=== PATIENT | male | born 1965 | race Caucasian/White ===

== ENCOUNTER 2023-03-17 13:39 | Outpatient (OUT) | payer MEDICARE, SELFPAY ==
--- NOTE | 2023-03-17 14:09 | XR_ITS ---
The [address] [address] Patient Name: TANIA SANTANA MRN: [id number] date: 1965 Sex: M Assigned Patient Location: RAD Current Patient Location: [facility] Accession/Order Number: [id number] Exam Date: 03/17/2023 14:11 Report Date: 03/17/2023 14:56 At the request of: MERRITT THACKER Procedure: XR shoulder RT min 2V Exam: Radiographs: XR shoulder RT min 2V Reason for exam: Right Shoulder Pain M25.511 Comparison: Plain films dated 06/08/2019 XR/XR shoulder RT min 2V IMPRESSION: Severe right glenohumeral joint degenerative change with complete loss of the joint space. Mild right AC joint degenerative change. Remainder of the right shoulder is unremarkable. Electronically authenticated by: BYRON TINAJERO Date: 03/17/2023 14:56
== END 2023-03-17 13:40 | disposition home or self-care (01) ==
PROVIDERS: PCP Internal Medicine; Visit Provider Internal Medicine
DX: M25.511 Pain in right shoulder (principal); M19.011 Primary osteoarthritis, right shoulder
CPT/HCPCS: 73030

== ENCOUNTER 2023-12-16 07:16 | Inpatient (IN) | payer MEDICARE, SELFPAY ==
[2023-12-16] VITALS (25 sets, daily range): BP systolic 122–145; BP diastolic 73–88; PULSE 88–119; TEMP 36.4–36.8; O2SAT 92–100; BMI 71.2; BMI 71.5
--- OUTSIDE RECORDS SUMMARY | 2023-12-16 07:33 | XMS_ITS | CCD ---
Author Organization [facility] Care Team Providers Care Setter Out Name Role Phone HOUSE, DR GLEZ Primary Care Unavailable HOUSE, DR GLEZ Admitting Unavailable HOUSE, DR GLEZ Attending Unavailable HOUSE, DR GLEZ Consulting Unavailable KEON, DR EFRA Bradshaw Consulting Unavailable HOUSE, DR GLEZ Primary Care Unavailable HOUSE, DR DEVANG Manceraitting Unavailable HOUSE, DR GLEZ Attending Unavailable HOUSE, DR GLEZ Consulting Unavailable HOUSE, DR GLEZ Primary Care Unavailable HOUSE, DR GLEZ Admitting Unavailable HOUSE, DR GLEZ Attending Unavailable HOUSE, DR GLEZ Consulting Unavailable HOUSE, DR GLEZ Primary Care Unavailable VINH, DR DARIUS Bradshaw Admitting Unavailable VINH, DR DARIUS Bradshaw Attending Unavailable VINH, DR DARIUS Bradshaw Consulting Unavailable ELIDA, EFRA Steve Unavailable Sage, Devang Primary Care Unavailable Preethi Duncan Attending Unavailable Dakota, Preethi Admitting Unavailable KAM HARDIN Attending Unavailable Merritt Thacker MD Primary Care Provider MERRITT THACKER Attending MERRITT Jackson Referring Unavailable MERRITT THACKER Primary Care Unavailable MERRITT THACKER Referring Unavailable MERRITT THACKER Primary Care Unavailable Allergies Allergy Classification Reported Allergen(s) Allergy Type Date of Onset Reaction(s) Facility Anti-Epileptic Agents (1 source) topiramate Drug Allergy 3 [facility] Repository (3 sources) topiramate; 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: [TOPIRAMATE] Drug Allergy 4 [facility] Repository (1 source) Topiramate Propensity to adverse reactions 3 [facility] Medications Current Medications Medication Drug Class(es) Dates Sig (Normalized) Sig (Original) amLODIPine 5 mg oral tablet (1 source) Dihydropyridine Calcium Channel Phill amLODIPine (Norvasc) 5 MG tablet atorvastatin 80 mg oral tablet (1 source) HMG-CoA Reductase Inhibitor take 1 tablet by mouth once daily at bedtime atorvastatin (Lipitor) 80 MG tablet Take 1 tablet every day by oral route at bedtime. 0 Active diclofenac sodium 75 mg delayed release oral tablet (1 source) Nonsteroidal Anti-inflammatory Drug Start: 3 take 1 tablet by mouth in the morning diclofenac (Voltaren) 75 MG EC tablet Take 75 mg by mouth in the morning and 75 mg before bedtime. 0 03/21/2023 Active ferrous sulfate 325 mg oral tablet (1 source) take 1 tablet by mouth in the morning ferrous sulfate 325 (65 Fe) MG tablet Take 1 tablet by mouth in the morning. 0 Active furosemide 20 mg oral tablet (1 source) Loop Diuretic furosemide (Lasix) 20 MG tablet gabapentin 300 mg oral capsule (1 source) Anti-epileptic Agent Start: 2 take 1 capsule by mouth in the morning, then take 1 capsule by mouth in the evening, then take 1 capsule by mouth at bedtime gabapentin (Neurontin) 300 MG capsule Take 300 mg by mouth in the morning and 300 mg in the evening and 300 mg before bedtime. 0 04/27/2022 Active hydroCHLOROthiazide 25 mg / triamterene 37.5 mg oral tablet (1 source) Potassium-sparing Diuretic, Thiazide Diuretic triamterene-hydr ochlorothiazide (Maxzide-25) 37.5-25 MG tablet losartan potassium 50 mg oral tablet (1 source) Angiotensin 2 Receptor Phill Start: 3 take 1 tablet by mouth in the morning losartan (Cozaar) 50 MG tablet Take 50 mg by mouth in the morning. 0 03/10/2023 Active metFORMIN hydrochloride 1000 mg oral tablet (1 source) Biguanide take 1 tablet by mouth in the morning metFORMIN (Glucophage) 1000 MG tablet Take 1,000 mg by mouth in the morning and 1,000 mg before bedtime. 0 Active 24 hr metoprolol succinate 25 mg extended release oral tablet (1 source) beta-Adrenergic Phill take 1 tablet by mouth every twenty-four hours in the morning metoprolol succinate XL (Toprol-XL) 25 MG 24 hr tablet Take 25 mg by mouth in the morning and 25 mg in the evening. 0 Active pantoprazole 40 mg delayed release oral tablet (1 source) Proton Pump Inhibitor take 1 tablet by mouth twice daily pantoprazole (ProtoNix) 40 MG EC tablet Take 1 tablet twice a day by oral route. 0 Active 24 hr phentermine 3.75 mg / topiramate 23 mg extended release oral capsule (1 source) Sympathomimetic Amine Anorectic take 1 capsule by mouth once daily Phentermine-Topi ramate (Qsymia) 3.75-23 MG capsule sustained-releas e 24 hr Take 1 capsule every day by oral route. 0 Active potassium chloride 20 meq powder for oral solution (1 source) take 1 dose by mouth once daily potassium chloride (Klor-Con) 20 MEQ packet Take 1 packet every day by oral route. 0 Active pregabalin 300 mg oral capsule (1 source) take 1 capsule by mouth twice daily pregabalin (Lyrica) 300 MG capsule Take 1 capsule twice a day by oral route. 0 Active SITagliptin 100 mg oral tablet (1 source) Dipeptidyl Peptidase 4 Inhibitor Start: take 1 tablet by mouth in the morning SITagliptin (Januvia) 100 MG tablet Take 100 mg by mouth in the morning. 0 03/10/2023 Active tiZANidine 4 mg oral tablet (1 source) Central alpha-2 Adrenergic Agonist tiZANidine (Zanaflex) 4 MG tablet warfarin sodium 5 mg oral tablet (1 source) Vitamin K Antagonist take 1 tablet by mouth in the morning warfarin (Coumadin) 5 MG tablet Take 1 tablet by mouth in the morning. 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] Onset: 11-27-2019 Chronic Diabetes mellitus without complication (8 sources) Type 2 diabetes mellitus without complications; 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: [Diabetes mellitus] Onset: 10-18-2019 Chronic Essential hypertension (2 sources) Essential (primary) hypertension; 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: [ESSENTIAL PRIMARY HYPERTENSION] Onset: 11-27-2019 Chronic Hyperplasia of prostate (1 source) Benign prostatic hyperplasia without lower urinary tract symptoms; 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: [BENIGN PROSTATIC HYPRPLASIA WO LUTS] Onset: 10-09-2020 Chronic Immunizations and screening for infectious disease (1 source) Encounter for immunization; 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: [Encounter for immunization] Onset: 09-07-2023 Episodic Osteoarthritis (1 source) Unspecified osteoarthritis, unspecified site; 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: [UNSPECIFIED OSTEOARTHRITIS UNS SITE] Onset: 11-27-2019 Chronic Other diseases of veins and lymphatics (1 source) Lymphedema, not elsewhere classified; 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: [I89.0 - Lymphedema, not elsewhere classified] Onset: 07-13-2021 Chronic Other nutritional; endocrine; and metabolic disorders (1 source) Obesity, unspecified; 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: [OBESITY UNSPECIFIED] Onset: 10-09-2020 Chronic Other nutritional; endocrine; and metabolic disorders (2 sources) Morbid (severe) obesity due to excess calories; 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: [MORBID SEVERE OBES D/T EXCESS NAHUN] Onset: 11-27-2019 Chronic Other nutritional; endocrine; and metabolic disorders (1 source) Body mass index (BMI) 60.0-69.9, adult; 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: [BODY MASS INDEX BMI 60.0-69.9 ADULT] Onset: 11-27-2019 Chronic Unclassified (1 source) E11.9 - Type 2 diabetes mellitus without complications; 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: [E11.9 - Type 2 diabetes mellitus without complications] Onset: 07-13-2021 Past or Other Problems Problem Classification Problem Date Documented Da te Episodic/Chronic E Codes: Unspecified (1 source) Blood alcohol level of 200-239 mg/100 ml; 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: [BLOOD ALCOHOL LVL 200-239 MG/100 ML] Onset: 11-27-2019 Episodic Open wounds of extremities (2 sources) Unspecified open wound, left lower leg, initial encounter; 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: [Unspecified open wound, left lower leg, subsequent encounter] Onset: 07-13-2021 Episodic Other aftercare (1 source) Other senior living (current) drug therapy; 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: [OTH CUSTODIAL CURRENT DRUG THERAPY] Onset: 11-27-2019 Episodic Other aftercare (1 source) snf (current) use of anticoagulants; 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: [CUSTODIAL CURRNT USE ANTICOAGULANTS] Onset: 11-27-2019 Episodic Other diseases of kidney and ureters (1 source) Disorder of kidney and ureter, unspecified; 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: [DISORDER KIDNEY AND URETER UNS] Onset: 11-27-2019 Episodic Other injuries and conditions due to external causes (4 sources) Encounter for examination and observation following transport accident; 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: [ENC EXAM AND OBSERV FLW TRANSPORT ACC] Onset: 11-25-2019 Episodic Other skin disorders (1 source) Other specified disorders of pigmentation; 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: [L81.8 - Other specified disorders of pigmentation] Onset: 07-13-2021 Episodic Pulmonary heart disease (1 source) Personal history of pulmonary embolism; 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: [PERSONAL HISTORY PULMONARY EMBOLISM] Onset: 11-27-2019 Episodic Spondylosis; intervertebral disc disorders; other back problems (4 sources) Low back pain; 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: [LOW BACK PAIN] Onset: 04-04-2020 Episodic Varicose veins of lower extremity (1 source) 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; 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: [I83.899 - 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] Onset: 07-13-2021 Episodic Results Test Name Value Interpretation Reference Range Facility COMPREHENSIVE METABOLIC PANE [facility] 09-07-2023 Albumin [Mass/Vol] 3.8 g/dL Normal 3.2-5.3 [facility] Comment on above: Performed By: #### 2 4331-1, CMP #### [facility] ([id number]) [address], [address] [place] [address] ALP [Catalytic activity/Vol] 101 U/L Normal 39-130 [facility] Comment on above: Performed By: #### 2 4331-1, CMP #### [facility] ([id number]) [address], [address] [place] [address] ALT [Catalytic activity/Vol] 14 U/L Normal 0-40 [facility] Comment on above: Performed By: #### 2 4331-1, CMP #### [facility] ([id number]) [address], [address] [place] [address] Anion gap [Moles/Vol] 8 mmol/L Normal 5-[address] [facility] Comment on above: Performed By: #### 2 4331-1, CMP #### [facility] ([id number]) [address], [address] [place] [address] AST [Catalytic activity/Vol] 14 U/L Normal 0-41 [facility] Comment on above: Performed By: #### 2 4331-1, CMP #### [facility] ([id number]) [address], [address] [place] [address] Bilirubin [Mass/Vol] 0.6 mg/dL Normal 0.3-1.2 [facility] Comment on above: Performed By: #### 2 4331-1, CMP #### [facility] ([id number]) [address], [address] [place] [address] Calcium [Mass/Vol] 8.8 mg/dL Normal 8.5-10.5 [facility] Comment on above: Performed By: #### 2 4331-1, CMP #### [facility] ([id number]) [address], [address] [place] [address] Chloride [Moles/Vol] 100 mmol/L Normal 98-109 [facility] Comment on above: Performed By: #### 2 4331-1, CMP #### [facility] ([id number]) [address], [address] [place] [address] CO2 [Moles/Vol] 31 mmol/L Normal 22-32 [facility] Comment on above: Performed By: #### 2 4331-1, CMP #### [facility] ([id number]) [address], [address] [place] [address] Creatinine [Mass/Vol] 1.29 mg/dL Normal 0.60-1.[address] [facility] Comment on above: Result Comment: METH OD TRACEABLE TO IDMS STANDARD Performed By: #### 2 4331-1, CMP #### [facility] ([id number]) [address] [place] [address] GFR/1.73 sq M.predicted among non-blacks MDRD (S/P/Bld) [Vol rate/Area] 64 mL/min/{1.73_m2} Normal >59 [facility] Comment on above: Result Comment: Reported eGFR is based on the CKD-EPI 2020 equation that does not use a race coefficient. Performed By: #### 2 4331-1, CMP #### [facility] ([id number]) [address], [address] [place] [address] Glucose [Mass/Vol] 119 mg/dL High 65-99 [facility] Comment on above: Performed By: #### 2 4331-1, CMP #### [facility] ([id number]) [address], [address] [place] [address] Potassium [Moles/Vol] 4.4 mmol/L Normal 3.5-5.[address] [facility] Comment on above: Performed By: #### 2 4331-1, CMP #### [facility] ([id number]) [address] [place] [address] Protein [Mass/Vol] 7.2 g/dL Normal 6.0-8.0 [facility] Comment on above: Performed By: #### 2 4331-1, CMP #### [facility] ([id number]) [address], [address] [place] [address] Sodium [Moles/Vol] 139 mmol/L Normal 134-146 [facility] Comment on above: Performed By: #### 2 4331-1, CMP #### [facility] ([id number]) [address], [address] [place] [address] Urea nitrogen [Mass/Vol] 21 mg/dL Normal 5-23 [facility] Comment on above: Performed By: #### 2 4331-1, CMP #### [facility] ([id number]) [address], [address] [place] [address] HGB A1C (GLYCO-HGB)on 2023 Glucose [Mass/Vol] 134 mg/dL Normal [facility] Comment on above: Performed By: #### 2 4331-1, CMP #### [facility] ([id number]) [address], [address] [address] HbA1c (Bld) [Mass fraction] 6.3 % High 4.4-5.6 [facility] Comment on above: Result Comment: NOTE ADA Guidelines Result HgbA1c Normal : less than 5.7 % Prediabetes : 5.7 % to 6.4 % Diabetes : > 6.4 % Use with caution in patients with abnormal hemoglobin variants as the half-life of red blood cells and in vivo glycation rates are affected. Performed By: #### 2 4331-1, CMP #### [facility] ([id number]) [address], [address] [place] [address] Lipid 1996 panelon 4 Cholesterol [Mass/Vol] 145 mg/dL Low 150-200 [facility] Comment on above: Performed By: #### 2 4331-1, CMP #### [facility] ([id number]) [address], [address] [place] [address] Cholesterol in HDL [Mass/Vol] 30 mg/dL Low >39 [facility] Comment on above: Result Comment: HDL <40 mg/dL - High Risk HDL > or = 40mg/dL- Desirable HDL >60 mg/dL - Negative Risk Performed By: #### 2 4331-1, CMP #### [facility] ([id number]) [address], [address] [place] [address] Cholesterol in LDL [Mass/Vol] 90 mg/dL Normal <130 [facility] Comment on above: Result Comment: LDL <100 mg/dL - Desirable LDL >160 mg/dL - High Risk Performed By: #### 2 4331-1, CMP #### [facility] ([id number]) [address] [address] [place] [address] Cholesterol in VLDL [Mass/Vol] 25 mg/dL Normal 0-30 [facility] Comment on above: Performed By: #### 2 4331-1, CMP #### [facility] ([id number]) [address], [facility] [address] [place] [address] CHOLESTEROL:HDL 4.8 Normal 1.0-5.0 [facility] Comment on above: Performed By: #### 2 4331-1, CMP #### [facility] ([id number]) [address], [address] [place] [address] Triglyceride [Mass/Vol] 123 mg/dL Normal 27-150 [facility] Comment on above: Performed By: #### 2 4331-1, CMP #### [facility] ([id number]) [address], [address] [address] CBC AUTO DIFFon 10-01-2020 BASO # 0.1 103/ul Normal 0.0-0.1 [facility] Comment on above: Performed By: #### T SH, LIPID, CMP, PSAD, T4 #### [facility] [address] [place], [place] [address] Wanda Anamaria Basophils/100 WBC (Bld) 0.8 % Normal 0.2-2.0 [facility] Comment on above: Performed By: #### T SH, LIPID, CMP, PSAD, T4 #### [facility] [address] [place], [place] [address] Wanda Anamaria EO # 0.3 103/ul Normal 0.0-0.7 [facility] Comment on above: Performed By: #### T SH, LIPID, CMP, PSAD, T4 #### [facility] [address] [place] [address] Wanda Conrad Eosinophils/100 WBC (Bld) 3.5 % Normal 0.9-7.0 [facility] Comment on above: Performed By: #### T SH, LIPID, CMP, PSAD, T4 #### [facility] [address] [place] [address] Wanda Conrad Erythrocyte distribution width (RBC) [Ratio] 15.2 % Critically high 11.0-15.0 [facility] Comment on above: Performed By: #### T SH, LIPID, CMP, PSAD, T4 #### [facility] [address] [place] [address] Wanda Conrad Hematocrit (Bld) [Volume fraction] 42.3 % Normal 42.0-54.0 [facility] Comment on above: Performed By: #### T SH, LIPID, CMP, PSAD, T4 #### [facility] [address] [place] [address] Wanda Conrad Hemoglobin (Bld) [Mass/Vol] 13.3 g/dL Critically low 14.0-18.0 [facility] Comment on above: Performed By: #### T SH, LIPID, CMP, PSAD, T4 #### [facility] [address] [place] [address] aWnda Conrad IG # 0.04 10e3/ul Critically high 0.00-0.03 [facility] Comment on above: Performed By: #### T SH, LIPID, CMP, PSAD, T4 #### [facility] [address] [place] [address] Wandavanda Conrad IG % 0.4 % Normal 0.0-0.5 [facility] Comment on above: Performed By: #### T SH, LIPID, CMP, PSAD, T4 #### [facility] [address] [place] [address] Wanda Anamaria LYMPH # 2.8 103/ul Normal 1.2-3.8 [facility] Comment on above: Performed By: #### T SH, LIPID, CMP, PSAD, T4 #### [facility] [address] [place] [address] Wanda Conrad Lymphocytes/100 WBC (Bld) 30.2 % Normal 20.5-60.0 [facility] Comment on above: Performed By: #### T SH, LIPID, CMP, PSAD, T4 #### [facility] [address] [place] [address] Wandavanda Conrad MANUAL DIFF REQ NO Normal [facility] Comment on above: Performed By: #### T SH, LIPID, CMP, PSAD, T4 #### [facility] [address] [place] [address] Wanda Conrad MCH (RBC) [Entitic mass] 26.4 pg Normal 25.9-34.0 [facility] Comment on above: Performed By: #### T SH, LIPID, CMP, PSAD, T4 #### [facility] [address] [place] [address] Wandavanda Conrad MCHC (RBC) [Mass/Vol] 31.4 g/dL Normal 29.9-35.2 [facility] Comment on above: Performed By: #### T SH, LIPID, CMP, PSAD, T4 #### [facility] [address] [place] [address] Wanda Conrad MCV (RBC) [Entitic vol] 83.9 fL Normal 80.0-94.0 [facility] Comment on above: Performed By: #### T SH, LIPID, CMP, PSAD, T4 #### [facility] [address] [place] [address] Wandavanda Antoineen MONO # 0.6 103/ul Normal 0.3-0.8 [facility] Comment on above: Performed By: #### T SH, LIPID, CMP, PSAD, T4 #### [facility] [address] [place] [address] Wandavanda Conrad Monocytes/100 WBC (Bld) 6.2 % Normal 1.7-12.0 [facility] Comment on above: Performed By: #### T SH, LIPID, CMP, PSAD, T4 #### [facility] [address] [place], [place] [address] Wanda Conrad NEUT # 5.4 103/ul Normal 1.4-6.5 [facility] Comment on above: Performed By: #### T SH, LIPID, CMP, PSAD, T4 #### [facility] [address] [place], [place] [address] Wanda Conrad Neutrophils/100 WBC (Bld) 58.9 % Normal 43.0-75.0 [facility] Comment on above: Performed By: #### T SH, LIPID, CMP, PSAD, T4 #### [facility] [address] [place], [place] [address] Wanda Conrad Platelet mean volume (Bld) [Entitic vol] 10.5 fL Normal 9.5-13.5 [facility] Comment on above: Performed By: #### T SH, LIPID, CMP, PSAD, T4 #### [facility] [address] [place] [id number] Wanda Conrad PLT 252 103/ul Normal 150-450 [facility] Comment on above: Performed By: #### T SH, LIPID, CMP, PSAD, T4 #### [facility] [address] [place], [place] [address] Wanda Conrad RBC 5.04 106/ul Normal 4.70-6.10 [facility] Comment on above: Performed By: #### T SH, LIPID, CMP, PSAD, T4 #### [facility] [address] [place], [place] [address] Wanda Conrad WBC 9.1 103/ul Normal 4.0-11.0 [facility] Comment on above: Performed By: #### T SH, LIPID, CMP, PSAD, T4 #### [facility] [address] [place], [place] [address] Wanda Conrad LIPID PROFILEon 10-01-2020 CHOL-HDL RATIO NORM SEE BELOW Normal [facility] Comment on above: Result Comment: 3.3 - 4.4 LOW RISK 4.4 - 7.1 AVERAGE RISK 7.1 - 11.0 MODERATE RISK >11.0 HIGH RISK Performed By: #### T SH, LIPID, CMP, PSAD, T4 #### [facility] [address] [place], [place] [address] Wanda Anamaria Cholesterol [Mass/Vol] 137 mg/dL Normal <=200 [facility] Comment on above: Performed By: #### T SH, LIPID, CMP, PSAD, T4 #### [facility] [address] [place], [place] [address] Wanda Anamaria Cholesterol in HDL [Mass/Vol] 31 mg/dL Normal [facility] Comment on above: Performed By: #### T SH, LIPID, CMP, PSAD, T4 #### [facility] [address] [place], [place] [address] Wanda Anamaria Cholesterol in LDL [Mass/Vol] 81.8 mg/dL Normal [facility] Comment on above: Performed By: #### T SH, LIPID, CMP, PSAD, T4 #### [facility] [address] [place], [place] [address] Wanda Anamaria Cholesterol.total/Cho lesterol in HDL [Mass ratio] 4.4 {ratio} Normal [facility] Comment on above: Performed By: #### T SH, LIPID, CMP, PSAD, T4 #### [facility] [address] [place], [place] [address] Wanda Anamaria HDL NORMAL > or = 60 mg/dl - LOW CARDIOVASCULAR RISK <40 mg/dl - HIGH CARDIOVASCULAR RISK Normal [facility] Comment on above: Performed By: #### T SH, LIPID, CMP, PSAD, T4 #### [facility] [address] [place] [id number] Wanda Anamaria LDL CALC NORMAL SEE BELOW Normal [facility] Comment on above: Result Comment: <100 mg/dl OPTIMAL 100 - 129 mg/dl NEAR OR ABOVE OPTIMAL 130 - 159 mg/dl BORDERLINE HIGH 160 - 189 mg/dl HIGH >190 mg/dl VERY HIGH Performed By: #### T SH, LIPID, CMP, PSAD, T4 #### [facility] [address] [place] [id number] Awnda Anamaria Triglyceride [Mass/Vol] 121 mg/dL Normal <=150 [facility] Comment on above: Performed By: #### T SH, LIPID, CMP, PSAD, T4 #### [facility] [address] [place] [address] Wanda Conrad VLDL CALC 24.2 mg/dL Normal [facility] Comment on above: Performed By: #### T SH, LIPID, CMP, PSAD, T4 #### [facility] [address] [place] [address] Wandavanda Conrad PROF 14(COMP METB)on 021 Albumin [Mass/Vol] 3.3 g/dL Critically low 3.5-5.0 [facility] Comment on above: Performed By: #### T SH, LIPID, CMP, PSAD, T4 #### [facility] [address] [place] [address] Wanda Conrad Albumin/Globulin [Mass ratio] 0.7 {ratio} Normal [facility] Comment on above: Performed By: #### T SH, LIPID, CMP, PSAD, T4 #### [facility] [address] [place] [address] Wanda Conrad ALP [Catalytic activity/Vol] 113 U/L Normal 38-126 [facility] Comment on above: Performed By: #### T SH, LIPID, CMP, PSAD, T4 #### [facility] [address] [place] [address] Wanda Conrad ALT [Catalytic activity/Vol] 25 U/L Normal 21-72 [facility] Comment on above: Performed By: #### T SH, LIPID, CMP, PSAD, T4 #### [facility] [address] [place] [address] Wanda Conrad Anion gap [Moles/Vol] 12.4 mmol/L Normal [facility] [facility] Comment on above: Performed By: #### T SH, LIPID, CMP, PSAD, T4 #### [facility] [address] [place] [address] Wanda Conrad AST [Catalytic activity/Vol] 16 U/L Critically low 17-59 [facility] Comment on above: Performed By: #### T SH, LIPID, CMP, PSAD, T4 #### [facility] [address] [place] [address] Wanda Anamaria Bilirubin [Mass/Vol] 0.4 mg/dL Normal 0.2-1.3 [facility] Comment on above: Performed By: #### T SH, LIPID, CMP, PSAD, T4 #### [facility] [address] [address] Wanda Anamaria Calcium [Mass/Vol] 8.8 mg/dL Normal 8.4-10.2 [facility] Comment on above: Performed By: #### T SH, LIPID, CMP, PSAD, T4 #### [facility] [address] [address] Wanda Anamaria Chloride [Moles/Vol] 102 mmol/L Normal 98-107 [facility] Comment on above: Performed By: #### T SH, LIPID, CMP, PSAD, T4 #### [facility] [address] [place] [address] Wanda Anamaria CO2 [Moles/Vol] 30.0 mmol/L Normal 22.0-30.0 [facility] Comment on above: Performed By: #### T SH, LIPID, CMP, PSAD, T4 #### [facility] [address] [address] Wanda Anamaria Creatinine [Mass/Vol] 1.29 mg/dL Critically high 0.66-1.25 [facility] Comment on above: Performed By: #### T SH, LIPID, CMP, PSAD, T4 #### [facility] [address] [address] Wanda Anamaria EGFR-AF TAJIK >60 Normal >=60 [facility] Comment on above: Performed By: #### T SH, LIPID, CMP, PSAD, T4 #### [facility] [address] [address] Wanda Anamaria EGFR-NON AF TAJIK 58 mL/min/1.73m2 Critically low >=60 [facility] Comment on above: Performed By: #### T SH, LIPID, CMP, PSAD, T4 #### [facility] [address] [address] Wanda Anamaria Globulin (S) [Mass/Vol] 4.5 g/dL Normal [facility] Comment on above: Performed By: #### T SH, LIPID, CMP, PSAD, T4 #### [facility] [address] [place] [address] Wanda Anamaria Glucose [Mass/Vol] 153 mg/dL Critically high 74-106 [facility] Comment on above: Performed By: #### T SH, LIPID, CMP, PSAD, T4 #### [facility] [address] [place] [address] Wanda Anamaria Potassium [Moles/Vol] 4.4 mmol/L Normal 3.4-5.0 [facility] Comment on above: Performed By: #### T SH, LIPID, CMP, PSAD, T4 #### [facility] [address] [place] [address] Wanda Anamaria Protein [Mass/Vol] 7.8 g/dL Normal 6.1-8.2 [facility] Comment on above: Performed By: #### T SH, LIPID, CMP, PSAD, T4 #### [facility] [address] [place] [address] Wanda Anamaria Sodium [Moles/Vol] 140 mmol/L Normal 137-145 [facility] Comment on above: Performed By: #### T SH, LIPID, CMP, PSAD, T4 #### [facility] [address] [place] [address] Wanda Anamaria Urea nitrogen [Mass/Vol] 28.0 mg/dL Critically high 9.0-20.0 [facility] Comment on above: Performed By: #### T SH, LIPID, CMP, PSAD, T4 #### [facility] [address] [place] [address] Wanda Anamaria Urea nitrogen/Creatinine [Mass ratio] 21.7 mg/mg Normal [facility] Comment on above: Performed By: #### T SH, LIPID, CMP, PSAD, T4 #### [facility] [address] [place] [address] Wanda Anamaria T4on 10-01-2020 T4 [Mass/Vol] 5.90 ug/dL Normal 5.53-11.00 [facility] Comment on above: Performed By: #### T SH, LIPID, CMP, PSAD, T4 #### [facility] [address] [address] Wanda Conrad TSHon 10-01-2020 TSH 2.487 uIU/mL Normal 0.470-4.680 [facility] Comment on above: Performed By: #### T SH, LIPID, CMP, PSAD, T4 #### [facility] [address] [address] Wanda Conrad TSH RANGE SEE BELOW Normal [facility] Comment on above: Result Comment: <0.3 4 UIU/ml HYPERTHYROID 0.34-5.60 UIU/ml EUTHYROID >5.60 UIU/ml HYPOTHYROID Performed By: #### T SH, LIPID, CMP, PSAD, T4 #### [facility] [address] [address] Wanda Conrad XR LSPINE MIN 4 VIEWSon XR LSPINE MIN 4 VIEWS EXAMINATION: XR LSPINE MIN 4 VIEWS HISTORY: Chronic low back pain radiating into lower extremities COMPARISON: Lumbar spine radiographs 03/20/2019 FINDINGS: BONES: Mild anterior wedging of T12, unchanged. Moderate marked facet arthropathy L5-S1. DISC SPACES: Mild narrowing L2-3. PARASPINOUS: Negative. No paraspinous abnormality is seen. OTHER: Negative. IMPRESSION: 1. Mild, stable remote compression fracture of T12. 2. Mild degenerative disc disease, not appreciably changed. 3. L5-S1 marked degenerative facet arthropathy, unchanged. Electronically authenticated by: EFRA HERBERT Date: 2020-04-04 15:05 Normal [facility] ACETAMINOPHENon 11-25-2019 Acetaminophen [Mass/Vol] ug/mL Critically low 10.1-30.0 [facility] Comment on above: Performed By: #### A CET #### [facility] [address] [address] Wanda Conrad AMMONIAon 11-25-2019 Ammonia (P) [Moles/Vol] 7 umol/L Critically low 10-30 [facility] Comment on above: Performed By: #### A MM #### [facility] [address] [place] [address] Wanda Conrad CBC AUTO DIFFon 11-25-2019 BASO # 0.0 103/ul Normal 0.0-0.1 [facility] Comment on above: Performed By: #### T SH, LIPID, CMP, PSAD, T4 #### [facility] [address] [place] [address] Wanda Conrad Basophils/100 WBC (Bld) 0.4 % Normal 0.2-2.0 [facility] Comment on above: Performed By: #### T SH, LIPID, CMP, PSAD, T4 #### [facility] [address] [place] [address] Wandavanda Conrad EO # 0.2 103/ul Normal 0.0-0.7 [facility] Comment on above: Performed By: #### T SH, LIPID, CMP, PSAD, T4 #### [facility] [address] [place] [address] Wanda Conrad Eosinophils/100 WBC (Bld) 1.8 % Normal 0.9-7.0 [facility] Comment on above: Performed By: #### T SH, LIPID, CMP, PSAD, T4 #### [facility] [address] [place] [address] Wandavanda Conrad Erythrocyte distribution width (RBC) [Ratio] 14.1 % Normal 11.0-15.0 [facility] Comment on above: Performed By: #### T SH, LIPID, CMP, PSAD, T4 #### [facility] [address] [place] [address] Wanda Conrad Hematocrit (Bld) [Volume fraction] 41.2 % Critically low 42.0-54.0 [facility] Comment on above: Performed By: #### T SH, LIPID, CMP, PSAD, T4 #### [facility] [address] [place] [address] Wandavanda Conrad Hemoglobin (Bld) [Mass/Vol] 13.3 g/dL Critically low 14.0-18.0 [facility] Comment on above: Performed By: #### T SH, LIPID, CMP, PSAD, T4 #### [facility] [address] [place] [address] Wanda Anamaria IG # 0.05 10e3/ul Critically high 0.00-0.03 [facility] Comment on above: Performed By: #### T SH, LIPID, CMP, PSAD, T4 #### [facility] [address] [place] [address] Wanda Anamaria IG % 0.5 % Normal 0.0-0.5 [facility] Comment on above: Performed By: #### T SH, LIPID, CMP, PSAD, T4 #### [facility] [address] [place] [address] Wanda Anamaria LYMPH # 2.3 103/ul Normal 1.2-3.8 [facility] Comment on above: Performed By: #### T SH, LIPID, CMP, PSAD, T4 #### [facility] [address] [place] [address] Wanda Conrad Lymphocytes/100 WBC (Bld) 21.1 % Normal 20.5-60.0 [facility] Comment on above: Performed By: #### T SH, LIPID, CMP, PSAD, T4 #### [facility] [address] [place] [address] Wanda Conrad MANUAL DIFF REQ NO Normal [facility] Comment on above: Performed By: #### T SH, LIPID, CMP, PSAD, T4 #### [facility] [address] [place] [address] Wanda Conrad MCH (RBC) [Entitic mass] 26.1 pg Normal 25.9-34.0 [facility] Comment on above: Performed By: #### T SH, LIPID, CMP, PSAD, T4 #### [facility] [address] [place] [address] Wanda Conrad MCHC (RBC) [Mass/Vol] 32.3 g/dL Normal 29.9-35.2 [facility] Comment on above: Performed By: #### T SH, LIPID, CMP, PSAD, T4 #### [facility] [address] [address] Wanda Conrad MCV (RBC) [Entitic vol] 80.9 fL Normal 80.0-94.0 [facility] Comment on above: Performed By: #### T SH, LIPID, CMP, PSAD, T4 #### [facility] [address] [place] [address] Wanda Conrad MONO # 0.5 103/ul Normal 0.3-0.8 [facility] Comment on above: Performed By: #### T SH, LIPID, CMP, PSAD, T4 #### [facility] [address] [place] [address] Wanda Conrad Monocytes/100 WBC (Bld) 4.8 % Normal 1.7-12.0 [facility] Comment on above: Performed By: #### T SH, LIPID, CMP, PSAD, T4 #### [facility] [address] [place] [address] Wanda Conrad NEUT # 7.8 103/ul Critically high 1.4-6.5 [facility] Comment on above: Performed By: #### T SH, LIPID, CMP, PSAD, T4 #### [facility] [address] [place] [address] Wanda Conrad Neutrophils/100 WBC (Bld) 71.4 % Normal 43.0-75.0 [facility] Comment on above: Performed By: #### T SH, LIPID, CMP, PSAD, T4 #### [facility] [address] [place], [place] [id number] Wanda Conrad Platelet mean volume (Bld) [Entitic vol] 9.6 fL Normal 9.5-13.5 [facility] Comment on above: Performed By: #### T SH, LIPID, CMP, PSAD, T4 #### [facility] [address] [place] [address] Wanda Conrad PLT 287 103/ul Normal 150-450 [facility] Comment on above: Performed By: #### T SH, LIPID, CMP, PSAD, T4 #### [facility] [address] [place] [address] Wanda Conrad RBC 5.09 106/ul Normal 4.70-6.10 [facility] Comment on above: Performed By: #### T SH, LIPID, CMP, PSAD, T4 #### [facility] [address] [place], [place] [address] Wanda Conrad WBC 10.8 103/ul Normal 4.0-11.0 [facility] Comment on above: Performed By: #### T SH, LIPID, CMP, PSAD, T4 #### [facility] [address] [place], [place] [address] HEAD WO CONon 11-25-2019 CT HEAD WO CON CT BRAIN WITHOUT CONTRAST HISTORY: Pain. COMPARISON: None available. TECHNIQUE: Helical CT images were acquired from the skull base to the vertex without the use of intravenous contrast. Dose reduction techniques were achieved by using automated exposure control and/or adjustment of mA and/or kV according to patient size and/or use of iterative reconstruction technique. FINDINGS: BRAIN PARENCHYMA/CSF SPACES: Ventricles are normal in size for age. There is no hemorrhage, mass effect or midline shift. There is an empty sella. PARANASAL SINUSES: Mild partial opacification of the left ethmoidal air cells consistent with chronic sinusitis. SKULL BASE AND CALVARIUM: Normal. EXTRACRANIAL SOFT TISSUES: Normal. IMPRESSION: 1. No acute intracranial abnormality. 2. Empty sella. 3. Mild chronic ethmoid sinusitis. Electronically authenticated by: EFRA MARRERO Date: 2019-11-25 01:49 Normal [facility] ETHANOL (BLD ALC)on 11-25-19 20 ALC NOTE NOTE: 80 mg/dl is the legal limit for a blood alcohol level Normal [facility] Comment on above: Performed By: #### T SH, LIPID, CMP, PSAD, T4 #### [facility] [address], [place] [address] Wanda Conrad Ethanol [Mass/Vol] 205 mg/dL Normal [facility] Comment on above: Performed By: #### T SH, LIPID, CMP, PSAD, T4 #### [facility] [address] [id number] Wandavanda Conrad PROF 14(COMP METB)on 020 Albumin [Mass/Vol] 3.2 g/dL Critically low 3.5-5.0 [facility] Comment on above: Performed By: #### T SH, LIPID, CMP, PSAD, T4 #### [facility] [address] [place], [place] [id number] Wanda Anamaria Albumin/Globulin [Mass ratio] 0.8 {ratio} Normal [facility] Comment on above: Performed By: #### T SH, LIPID, CMP, PSAD, T4 #### [facility] [address] [address] Wanda Anamaria ALP [Catalytic activity/Vol] 111 U/L Normal 38-126 [facility] Comment on above: Performed By: #### T SH, LIPID, CMP, PSAD, T4 #### [facility] [address] [place] [address] Wanda Anamaria ALT [Catalytic activity/Vol] 23 U/L Normal 21-72 [facility] Comment on above: Performed By: #### T SH, LIPID, CMP, PSAD, T4 #### [facility] [address] [place] [address] Wanda Anamaria Anion gap [Moles/Vol] 16.5 mmol/L Normal Th [facility] Comment on above: Performed By: #### T SH, LIPID, CMP, PSAD, T4 #### [facility] [address] [place] [address] Wanda Anamaria AST [Catalytic activity/Vol] 15 U/L Critically low 17-59 [facility] Comment on above: Performed By: #### T SH, LIPID, CMP, PSAD, T4 #### [facility] [address] [place] [address] Wanda Anamaria Bilirubin [Mass/Vol] 0.3 mg/dL Normal 0.2-1.3 [facility] Comment on above: Performed By: #### T SH, LIPID, CMP, PSAD, T4 #### [facility] [address] [place] [address] Wanda Anamaria Calcium [Mass/Vol] 8.2 mg/dL Critically low 8.4-10.2 [facility] Comment on above: Performed By: #### T SH, LIPID, CMP, PSAD, T4 #### [facility] [address] [place] [address] Wanda Anamaria Chloride [Moles/Vol] 98 mmol/L Normal 98-107 [facility] Comment on above: Performed By: #### T SH, LIPID, CMP, PSAD, T4 #### [facility] [address] [place] [address] Wanda Anamaria CO2 [Moles/Vol] 23.2 mmol/L Normal 22.0-30.0 [facility] Comment on above: Performed By: #### T SH, LIPID, CMP, PSAD, T4 #### [facility] [address] [place] [address] Wanda Anamaria Creatinine [Mass/Vol] 0.91 mg/dL Normal 0.66-1.25 [facility] Comment on above: Performed By: #### T SH, LIPID, CMP, PSAD, T4 #### [facility] [address] [place] [address] Wanda Anamaria EGFR-AF TAJIK >60 Normal >=60 [facility] Comment on above: Performed By: #### T SH, LIPID, CMP, PSAD, T4 #### [facility] [address] [place] [address] Wanda Anamaria EGFR-NON AF TAJIK >60 Normal >=60 [facility] Comment on above: Performed By: #### T SH, LIPID, CMP, PSAD, T4 #### [facility] [address] [place] [address] Wanda Anamaria Globulin (S) [Mass/Vol] 4.1 g/dL Normal [facility] Comment on above: Performed By: #### T SH, LIPID, CMP, PSAD, T4 #### [facility] [address] [place] [address] Wanda Anamaria Glucose [Mass/Vol] 231 mg/dL Critically high 74-106 [facility] Comment on above: Performed By: #### T SH, LIPID, CMP, PSAD, T4 #### [facility] [address] [place] [address] Wanda Anamaria Potassium [Moles/Vol] 3.7 mmol/L Normal 3.4-5.0 [facility] Comment on above: Performed By: #### T SH, LIPID, CMP, PSAD, T4 #### [facility] [address] [address] Wanda Anamaria Protein [Mass/Vol] 7.3 g/dL Normal 6.1-8.2 [facility] Comment on above: Performed By: #### T SH, LIPID, CMP, PSAD, T4 #### [facility] [address] [place] [address] Wanda Anamaria Sodium [Moles/Vol] 134 mmol/L Critically low 137-145 [facility] Comment on above: Performed By: #### T SH, LIPID, CMP, PSAD, T4 #### [facility] [address] [place] [address] Wanda Anamaria Urea nitrogen [Mass/Vol] 22.0 mg/dL Critically high 9.0-20.0 [facility] Comment on above: Performed By: #### T SH, LIPID, CMP, PSAD, T4 #### [facility] [address] [place] [address] Wandavanda Conrad Urea nitrogen/Creatinine [Mass ratio] 24.2 mg/mg Normal [facility] Comment on above: Performed By: #### T SH, LIPID, CMP, PSAD, T4 #### [facility] [address] [place] [address] Wanda Conrad SALICYLATEon 11-25-2019 SALICYLATE 1.3 mg/dL Normal <=20.0 [facility] Comment on above: Performed By: #### T SH, LIPID, CMP, PSAD, T4 #### [facility] [address] [place], [place] [phone] Wanda Anamaria XR CHEST 1 Von 11-25-2019 XR CHEST 1 V CHEST RADIOGRAPH: HISTORY: Pain. COMPARISON: None available. TECHNIQUE: AP radiograph of was performed of the chest. FINDINGS: SUPPORT APPARATUS: None. CARDIOMEDIASTINAL SILHOUETTE: Normal. AIRWAYS/LUNGS: Clear. PLEURAL SPACES: No pleural effusion or pneumothorax. BONES AND SOFT TISSUES: No acute abnormality. IMPRESSION: Normal chest radiograph. Electronically authenticated by: EFRA MARRERO Date: 2019-11-25 01:51 Normal [facility] XR PELVIS 1_2 VIEWSon 2019 XR PELVIS 1_2 VIEWS XR PELVIS 1_2 VIEWS: HISTORY: Pain. COMPARISON: None available. TECHNIQUE: 2 radiographic view(s) obtained. FINDINGS: BONES: Mineralization appears within normal limits. There is no acute fracture. There are no lytic or sclerotic lesions. JOINT SPACES: There is no dislocation. Mild degenerative changes of the hips and lower lumbar spine. SOFT TISSUES: Normal. IMPRESSION: No acute osseus abnormality. Electronically authenticated by: EFRA MARRERO Date: 2019-11-25 01:52 Normal [facility] CBC AUTO DIFFon 10-18-2019 BASO # 0.1 103/ul Normal 0.0-0.1 [facility] Comment on above: Performed By: #### C BC #### [facility] [address] [place], [place] [id number] Wanda Anamaria Basophils/100 WBC (Bld) 0.6 % Normal 0.2-2.0 [facility] Comment on above: Performed By: #### C BC #### [facility] [address] [place], [place] [id number] Wanda Anamaria EO # 0.2 103/ul Normal 0.0-0.7 [facility] Comment on above: Performed By: #### C BC #### [facility] [address] [place], [place] [id number] Wanda Anamaria Eosinophils/100 WBC (Bld) 1.7 % Normal 0.9-7.0 [facility] Comment on above: Performed By: #### C BC #### [facility] [address], [place] [address] Wanda Anamaria Erythrocyte distribution width (RBC) [Ratio] 14.4 % Normal 11.0-15.0 [facility] Comment on above: Performed By: #### C BC #### [facility] [address] [place] [address] Wanda Anamaria Hematocrit (Bld) [Volume fraction] 44.2 % Normal 42.0-54.0 [facility] Comment on above: Performed By: #### C BC #### [facility] [address] [id number] Wanda Anamaria Hemoglobin (Bld) [Mass/Vol] 13.9 g/dL Critically low 14.0-18.0 [facility] Comment on above: Performed By: #### C BC #### [facility] [address] [id number] Wanda Anamaria IG # 0.04 10e3/ul Critically high 0.00-0.03 [facility] Comment on above: Performed By: #### C BC #### [facility] [address] [id number] Wanda Anamaria IG % 0.4 % Normal 0.0-0.5 [facility] Comment on above: Performed By: #### C BC #### [facility] [address] [place] [address] Wanda Anamaria LYMPH # 2.8 103/ul Normal 1.2-3.8 [facility] Comment on above: Performed By: #### C BC #### [facility] [address] [place], [place] [address] Wanda Anamaria Lymphocytes/100 WBC (Bld) 28.2 % Normal 20.5-60.0 [facility] Comment on above: Performed By: #### C BC #### [facility] [address] [place], [place] [id number] Wanda Anamaria MANUAL DIFF REQ NO Normal [facility] Comment on above: Performed By: #### C BC #### [facility] [address] [place], [place] [address] Wanda Anamaria MCH (RBC) [Entitic mass] 25.9 pg Normal 25.9-34.0 [facility] Comment on above: Performed By: #### C BC #### [facility] [address] [place], [place] [id number] Wanda Anamaria MCHC (RBC) [Mass/Vol] 31.4 g/dL Normal 29.9-35.2 [facility] Comment on above: Performed By: #### C BC #### [facility] [address] [place], [place] [address] Wanda Anamaria MCV (RBC) [Entitic vol] 82.3 fL Normal 80.0-94.0 [facility] Comment on above: Performed By: #### C BC #### [facility] [address] [id number] Wandavanda Antoineen MONO # 0.5 103/ul Normal 0.3-0.8 [facility] Comment on above: Performed By: #### C BC #### [facility] [address] [id number] Wanda Anamaria Monocytes/100 WBC (Bld) 5.2 % Normal 1.7-12.0 [facility] Comment on above: Performed By: #### C BC #### [facility] [address] [place] [address] Wanda Anamaria NEUT # 6.4 103/ul Normal 1.4-6.5 [facility] Comment on above: Performed By: #### C BC #### [facility] [address] [place], [place] [address] Wanda Anamaria Neutrophils/100 WBC (Bld) 63.9 % Normal 43.0-75.0 [facility] Comment on above: Performed By: #### C BC #### [facility] [address] [place], [place] [address] Wandavanda Conrad Platelet mean volume (Bld) [Entitic vol] 10.5 fL Normal 9.5-13.5 [facility] Comment on above: Performed By: #### C BC #### [facility] [address] [place], [place] [address] Wanda Anamaria PLT 281 103/ul Normal 150-450 [facility] Comment on above: Performed By: #### C BC #### [facility] [address] [place], [place] [phone] Wanda Anamaria RBC 5.37 106/ul Normal 4.70-6.10 [facility] Comment on above: Performed By: #### C BC #### [facility] [address] [place], [place] [id number] Wanda Anamaria WBC 10.0 103/ul Normal 4.0-11.0 [facility] Comment on above: Performed By: #### C BC #### [facility] [address] [id number] Wanda Anamaria GLYCOHEMOGLOBIN A1Con 2019 Glucose [Mass/Vol] 163 mg/dL Normal [facility] Comment on above: Performed By: #### T SH, LIPID, CMP, PSAD, T4 #### [facility] [address] [id number] Wanda Anamaria HbA1c (Bld) [Mass fraction] 7.3 % Critically high <=6.0 [facility] Comment on above: Performed By: #### T SH, LIPID, CMP, PSAD, T4 #### [facility] [address] [place] [address] Wanda Anamaria LIPID PROFILEon 10-18-2019 CHOL-HDL RATIO NORM SEE BELOW Normal [facility] Comment on above: Result Comment: 3.3 - 4.4 LOW RISK 4.4 - 7.1 AVERAGE RISK 7.1 - 11.0 MODERATE RISK >11.0 HIGH RISK Performed By: #### T SH, LIPID, CMP, PSAD, T4 #### [facility] [address] [place], [place] [id number] Wanda Anamaria Cholesterol [Mass/Vol] 130 mg/dL Normal <=200 [facility] Comment on above: Performed By: #### T SH, LIPID, CMP, PSAD, T4 #### [facility] [address] [place], [place] [id number] Wanda Anamaria Cholesterol in HDL [Mass/Vol] 32 mg/dL Normal [facility] Comment on above: Performed By: #### T SH, LIPID, CMP, PSAD, T4 #### [facility] [address] [id number] Wanda Anamaria Cholesterol in LDL [Mass/Vol] 76.6 mg/dL Normal [facility] Comment on above: Performed By: #### T SH, LIPID, CMP, PSAD, T4 #### [facility] [address] [place], [place] [id number] Wanda Anamaria Cholesterol.total/Cho lesterol in HDL [Mass ratio] 4.1 {ratio} Normal [facility] Comment on above: Performed By: #### T SH, LIPID, CMP, PSAD, T4 #### [facility] [address] [id number] Wanda Anamaria HDL NORMAL > or = 60 mg/dl - LOW CARDIOVASCULAR RISK <40 mg/dl - HIGH CARDIOVASCULAR RISK Normal [facility] Comment on above: Performed By: #### T SH, LIPID, CMP, PSAD, T4 #### [facility] [address] [address] Wandavanda Conrad LDL CALC NORMAL SEE BELOW Normal [facility] Comment on above: Result Comment: <100 mg/dl OPTIMAL 100 - 129 mg/dl NEAR OR ABOVE OPTIMAL 130 - 159 mg/dl BORDERLINE HIGH 160 - 189 mg/dl HIGH >190 mg/dl VERY HIGH Performed By: #### T SH, LIPID, CMP, PSAD, T4 #### [facility] [address] [address] Wanda Anamaria Triglyceride [Mass/Vol] 107 mg/dL Normal <=150 [facility] Comment on above: Performed By: #### T SH, LIPID, CMP, PSAD, T4 #### [facility] [address] [address] Wandavanda Conrad VLDL CALC 21.4 mg/dL Normal [facility] Comment on above: Performed By: #### T SH, LIPID, CMP, PSAD, T4 #### [facility] [address] [id number] Wandavanda Conrad MICROALBUMIN, RAND URon 09-28 mALB <1.3 Normal <=30.0 [facility] Comment on above: Performed By: #### M ALBR #### [facility] [address] [place], [place] [id number] Wandavanda Conrad mALBH PLEASE NOTE: NORMAL RANGE CHANGE, TESTING PERFORMED AT [facility]. Normal [facility] Comment on above: Performed By: #### M ALBR #### [facility] [address] [place], [place] [id number] Wanda Conrad PROF 14(COMP METB)on 020 Albumin [Mass/Vol] 3.5 g/dL Normal 3.5-5.0 [facility] Comment on above: Performed By: #### T SH, LIPID, CMP, PSAD, T4 #### [facility] [address] [place], [place] [id number] Wanda Anamaria Albumin/Globulin [Mass ratio] 0.8 {ratio} Normal [facility] Comment on above: Performed By: #### T SH, LIPID, CMP, PSAD, T4 #### [facility] [address] [place], [place] [id number] Wanda Anamaria ALP [Catalytic activity/Vol] 103 U/L Normal 38-126 [facility] Comment on above: Performed By: #### T SH, LIPID, CMP, PSAD, T4 #### [facility] [address] [place] [address] Wanda Anamaria ALT [Catalytic activity/Vol] 21 U/L Normal 21-72 [facility] Comment on above: Performed By: #### T SH, LIPID, CMP, PSAD, T4 #### [facility] [address] [place] [address] Wanda Anamaria Anion gap [Moles/Vol] 13.9 mmol/L Normal [facility] Comment on above: Performed By: #### T SH, LIPID, CMP, PSAD, T4 #### [facility] [address] [place], [place] [id number] Wanda Anamaria AST [Catalytic activity/Vol] 18 U/L Normal 17-59 [facility] Comment on above: Performed By: #### T SH, LIPID, CMP, PSAD, T4 #### [facility] [address] [place], [place] [address] Wanda Anamaria Bilirubin [Mass/Vol] 0.5 mg/dL Normal 0.2-1.3 [facility] Comment on above: Performed By: #### T SH, LIPID, CMP, PSAD, T4 #### [facility] [address] [place], [place] [address] Wanda Anamaria Calcium [Mass/Vol] 8.9 mg/dL Normal 8.4-10.2 [facility] Comment on above: Performed By: #### T SH, LIPID, CMP, PSAD, T4 #### [facility] [address] [place] [address] Wanda Anamaria Chloride [Moles/Vol] 100 mmol/L Normal 98-107 [facility] Comment on above: Performed By: #### T SH, LIPID, CMP, PSAD, T4 #### [facility] [address] [place] [address] Wanda Anamaria CO2 [Moles/Vol] 28.2 mmol/L Normal 22.0-30.0 [facility] Comment on above: Performed By: #### T SH, LIPID, CMP, PSAD, T4 #### [facility] [address] [place] [address] Wanda Anamaria Creatinine [Mass/Vol] 1.08 mg/dL Normal 0.66-1.25 [facility] Comment on above: Performed By: #### T SH, LIPID, CMP, PSAD, T4 #### [facility] [address] [place] [address] Wanda Anamaria EGFR-AF TAJIK >60 Normal >=60 [facility] Comment on above: Performed By: #### T SH, LIPID, CMP, PSAD, T4 #### [facility] [address] [place] [address] Wanda Anamaria EGFR-NON AF TAJIK >60 Normal >=60 [facility] Comment on above: Performed By: #### T SH, LIPID, CMP, PSAD, T4 #### [facility] [address] [place] [address] Wanda Anamaria Globulin (S) [Mass/Vol] 4.6 g/dL Normal [facility] Comment on above: Performed By: #### T SH, LIPID, CMP, PSAD, T4 #### [facility] [address] [place] [address] Wanda Anamaria Glucose [Mass/Vol] 129 mg/dL Critically high 74-106 [facility] Comment on above: Performed By: #### T SH, LIPID, CMP, PSAD, T4 #### [facility] [address] [place], [place] [address] Wanda Anamaria Potassium [Moles/Vol] 4.1 mmol/L Normal 3.4-5.0 [facility] Comment on above: Performed By: #### T SH, LIPID, CMP, PSAD, T4 #### [facility] [address] [place], [place] [address] Wanda Anamaria Protein [Mass/Vol] 8.1 g/dL Normal 6.1-8.2 [facility] Comment on above: Performed By: #### T SH, LIPID, CMP, PSAD, T4 #### [facility] [address] [place], [place] [address] Wanda Anamaria Sodium [Moles/Vol] 138 mmol/L Normal 137-145 [facility] Comment on above: Performed By: #### T SH, LIPID, CMP, PSAD, T4 #### [facility] [address] [place], [place] [address] Wanda Anamaria Urea nitrogen [Mass/Vol] 34.0 mg/dL Critically high 9.0-20.0 [facility] Comment on above: Performed By: #### T SH, LIPID, CMP, PSAD, T4 #### [facility] [address] [place], [place] [address] Wanda Anamaria Urea nitrogen/Creatinine [Mass ratio] 31.5 mg/mg Normal [facility] Comment on above: Performed By: #### T SH, LIPID, CMP, PSAD, T4 #### [facility] [address] [place], [place] [address] Wanda Anamaria Encounters Encounter Date Encounter Type Care Provider Facility Start: 09-08-2023 End: 09-08-2023 ambulatory [facility] Start: 09-07-2023 End: 09-07-2023 ambulatory [facility] Start: 06-17-2023 Telephone encounter Kaveh rivera DO Work Phone: [facility] Comment on above: Refund Checks Start: 04-11-2023 End: 04-11-2023 ambulatory [facility] Not Available Start: 07-13-2021 End: 07-29-2021 ambulatory Devang Birch Facility:[facility] Start: 10-09-2020 Encounter for genera l adult medical examination without abnormal findings DR DEVANG BIRCH [facility] Start: 10-01-2020 End: 10-02-[address] DEVANG BIRCH Facility:[facility] Start: 10-01-2020 End: 10-02-2020 Encounter for general adult medical examination without abnormal findings DR DEVANG BIRCH Facility:[facility] Start: 04-04-2020 End: 04-05-[address] DEVANG BIRCH Facility:[facility] Start: 11-25-2019 End: 11-25-[address] DEVANG BIRCH Facility:[facility] Start: 10-18-2019 End: 10-19-[address] DEVANG BIRCH Facility:[facility] Procedures Date Procedure Procedure Detail Performing Clinician Start: 10-01-[address] PATTI BIRCH Comment on above: Performed By: #### T SH, LIPID, CMP, PSAD, T4 #### [facility] [address] [address] Wanda Conrad Payers Date Payer Category Payer Medicare [facility] MEDICARE ADVANTAGE [facility] MEDICARE ADVANTAGE [id number] 2021-Present [address] [place] [address] [id number] 2021 Self-pay 1965 Unknown [id number] 1965 Unknown [id number] 1965 Unknown [id number] 1964 Unknown [id number] 1964 Unknown [id number] 9 1964 Unknown [id number] 6 1965 Unknown [id number] 6 1959 Unknown [id number] Unknown Unknown [id number] Social History Date Type Detail Facility Start: 03-28-2023 Tobacco smoking stat NHIS Never smoked tobacco [facility] Start: 03-28-2023 Tobacco use and exposure Smokeless t obacco non-user [facility] Start: 06-09-2023 Alcohol intake Current drinke r of alcohol (finding) [facility] Start: 04-11-2023 History of Social function [facility] Start: 04-11-2023 Tobacco use panel [facility] Start: 1965 Sex Assigned At Not on file [facility] Telephone encounter Note 06-17-2023 Telephone Encounter - Ilene July - 06/17/2023 9:18 AM EST Note Date & Type Note Facility 06-17-2023 Telephone encount er Note Sarah, patient called stated that he received two refund checks from [employer]. He deposited the checks and then was told from his bank that they bounced. If you could look into this for me please, all I am seeing is that the refunds were sent out. Call back # [phone] [facility] Note 06-17-2023 Telephone Encounter - [facility] July - 06/17/2023 9:18 AM EST Note Date & Type Note Facility 06-17-2023 Miscellaneous Notes Formattin g of this note might be different from the original. Sarah, patient called stated that he received two refund checks from [employer]. He deposited the checks and then was told from his bank that they bounced. If you could look into this for me please, all I am seeing is that the refunds were sent out. Call back # [phone] documented in this encounter [facility] Summary Purpose Family History No Family History Records FoundNo Family History Records FoundNo Family History Records FoundNo Family History Records FoundNo Family History Records Found Advance Directives No Advanced Directives Records FoundNo Advanced Directives Records FoundNo Advanced Directives Records FoundNo Advanced Directives Records FoundNo Advanced Directives Records Found Additional Source Comments (unrecognized sect ion and content) No Status Records FoundNo Status Records FoundNo Status Records FoundNo Status Records FoundNo Status Records Found INFORMATION SOURCE (unrecogn ized section and content) DATE CREATED AUTHOR 10/11/2020 [facility] DATE CREATED AUTHOR AUTHOR'S ORGANIZ ATION 07/03/2022 [facility] DATE CREATED AUTHOR AUTHOR'S ORGANIZ ATION 04/12/2023 [facility] EP[facility] DATE CREATED AUTHOR AUTHOR'S ORGANIZ ATION 09/08/2023 [facility] DATE CREATED AUTHOR AUTHOR'S ORGANIZ ATION 09/09/2023 [facility] Reason for Visit (unrecogniz ed section and content) Reason Onset Date Comments Refund Checks 06/17/2023 Care Teams (unrecognized sec tion and content) Setter Out Relationship Specialty Start Date End Date Merritt Thacker MD [address] [place] [address] PCP - General Internal Medicine 03/28/23 FOR RECORDS PERTAINING TO PATIENTS WHO ARE OR HAVE BEEN ENROLLED IN A CHEMICAL DEPENDENCY/SUBSTANCEABUSE PROGRAM, SOME INFORMATION MAY BE OMITTED. This clinical summary was aggregated from multiple sources. Caution should be exercised in using it in the provision of clinical care. This summary normalizes information from multiple sources, and as a consequence, information in this document may materially change the coding, format and clinical context of patient data. In addition, data may be omitted in some cases. CLINICAL DECISIONS SHOULD BE BASED ON THE PRIMARY CLINICAL RECORDS. [employer] provides no warranty or guarantee of the accuracy or completeness of information in this document.
--- NOTE | 2023-12-16 07:37 | XR_ITS ---
The [address] [address] Patient Name: TANIA SANTANA MRN: [id number] date: 1965 Sex: M Assigned Patient Location: ER Current Patient Location: ER Accession/Order Number: [id number] Exam Date: 12/16/2023 07:46 Report Date: 12/16/2023 08:00 At the request of: [facility] Procedure: XR chest 1V EXAMINATION: XR chest 1V HISTORY: sob COMPARISON: XR chest 11/25/2019 FINDINGS: LUNGS: Mild increased haziness of the lung parenchyma bilaterally. No focal opacity. VASCULATURE: No increased pulmonary vasculature. PLEURA: No pneumothorax, effusion, or pleural thickening. CARDIAC: No cardiomegaly or cardiac silhouette abnormality. MEDIASTINUM: No visible mass or adenopathy. BONES: No fracture or visible bone lesion. OTHER: Negative. XR/XR chest 1V IMPRESSION: 1. Examination slightly limited by patient body habitus and AP portable technique. 2. Mild haziness bilaterally suggestive of pulmonary edema. Electronically authenticated by: EFRA HERBERT Date: 12/16/2023 08:00
--- NOTE | 2023-12-16 07:37 | ECG_ITS ---
The [facility] Test Date: 2023-12-16 Pat Name: TANIA SANTANA Department: Room: - Gender: Male [employer]: : 1965 Requested By: MERRITT THACKER Order Number: [id number] Reading MD: KHUSHBOO EDWARDS Measurements Intervals [place] Rate: 103 P: 55 TN: 190 QRS: 29 QRSD: 100 T: 70 QT: 358 QTc: 418 Interpretive Statements 1120 Sinus tachycardia 3114 Cannot rule out anterior myocardial infarction, age undetermined 8102 Low QRS voltage in chest leads 9150 abnormal ECG No previous ECG available for comparison Electronically Signed On 12-19-2023 7:30:24 EDT by KHUSHBOO EDWARDS
--- NOTE | 2023-12-16 07:39 | ED_ITS ---
HPI HPI - General Adult General Chief complaint: Shortness of Breath/Dyspnea Stated complaint: FLUID RETENTION CLINICAL REF DR WOO Time Seen by Provider: 12/16/23 07:36 Source: patient Mode of arrival: Carry Limitations: no limitations History of Present Illness HPI narrative: Pt is 58yo male who is here for anasarca, edema to abdomen, arm, legs. Pt has been off his maxide for month secondary to kidney issues. PT PCP is Dr Woo, sent to the ER NO CP, no abd pain, N/V no leg cellulitis REVIEW OF SYSTEMS: Unless otherwise stated in this report the patient's positive and negative responses for review of systems for constitutional, eyes, ENT, cardiovascular, respiratory, gastrointestinal, neurological, , musculoskeletal, and integument systems and related systems to the presenting problem are either stated in the history of present illness or were not pertinent or were negative for the symptoms and/or complaints related to the presenting medical problem. vital signs reviewed and patient is not hypoxic. General: The patient appears well and in no apparent distress. Patient is resting comfortably on cart. Not toxic, lethargic, or listless. Skin: Warm, dry, no pallor noted. There is no rash noted. no cellulitis to lower abdomen or legs Head: Normocephalic, atraumatic Eye: Normal conjunctiva, no drainage, EOMI. PERRL. Ears, Nose, Mouth, and Throat: oral mucosa is moist. Nares patent. Mouth without vesicles. Ear canals patent. Tm's without Erythema Cardiovascular: Regular Rate and Rhythm, no murmurs, gallops, or rubs Respiratory: Patient is in no distress, no accessory muscle use, lungs are equal bilateal, no wheezing, mild bilateral rales, NO rhonchi Back: non-tender, no CVA tenderness bilaterally to percussion. NO CTLS midline or paracervicl tenderness to palpation. GI: Soft, anasarca; no tenderness to palpation, no masses appreciated. No rebound, guarding, or rigidity noted. Musculoskeletal: The patient has full range of motion of all extremities and joints with no difficulty. Patient has no motor, no sensory deficits. anasarca, 3+ pitting edema Neurological: A&O x4, normal speech, no focal neurological deficits. Psychiatric: Cooperative Related Data Home Medications ?Medication ?Instructions ?Recorded ?Confirmed atorvastatin 20 mg tablet 20 mg PO DAILY 12/16/23 diclofenac sodium 75 mg 75 mg PO Q12H 12/16/23 12/16/23 tablet,delayed release duloxetine 30 mg capsule,delayed 30 mg PO DAILY 12/16/23 release fexofenadine 180 mg tablet 180 mg PO Q24H 12/16/23 furosemide 40 mg tablet 40 mg PO DAILY 12/16/23 metformin 1,000 mg tablet 1,000 mg PO BID 12/16/23 12/16/23 semaglutide 7 mg tablet (Rybelsus) 7 mg PO DAILY 12/16/23 12/16/23 sitagliptin phosphate 100 mg 100 mg PO DAILY 12/16/23 tablet (Januvia) tizanidine 4 mg tablet 4 mg PO Q12H 12/16/23 Allergies Allergy/AdvReac Type Severity Reaction Status Date / Time topiramate [From Topamax] AdvReac Intermediate Altered Verified 12/16/23 07:22 Sense of Taste Opioid HPI Opioid Management Most Recent Opioid Data: No Data to Display Exam Constitutional Vital Signs, click to edit/add: Last Vital Signs Temp 97.7 F 12/16/23 07:22 Pulse 103 H 12/16/23 08:20 Resp 29 H 12/16/23 08:20 BP 145/88 H 12/16/23 08:20 Pulse Ox 100 12/16/23 08:20 O2 Del Method Room Air 12/16/23 07:37 O2 Flow Rate 98 12/16/23 07:37 Course Vital Signs Vital signs: Vital Signs Temperature 97.7 F 12/16/23 07:22 Pulse Rate 106 H 12/16/23 07:22 Respiratory Rate 20 12/16/23 07:22 Blood Pressure 139/87 12/16/23 07:22 Pulse Oximetry 92 L 12/16/23 07:22 Oxygen Delivery Method Room Air 12/16/23 07:22 Temperature 97.7 F 12/16/23 07:22 Pulse Rate 103 H 12/16/23 08:20 Respiratory Rate 29 H 12/16/23 08:20 Blood Pressure 145/88 H 12/16/23 08:20 Pulse Oximetry 100 12/16/23 08:20 Oxygen Delivery Method Room Air 12/16/23 07:37 Oxygen Delivery Flow Rate 98 12/16/23 07:37 Medical Decision Making MDM Narrative Medical decision making narrative: CXR shows pulm edema, BNP elevated, pt was given lasix pt admitted by Dr Breen, pt was seen by Dr Breen in the ER Lab Data Lab results reviewed: Yes I reviewed the patient's lab results Labs: Lab Results 12/16/23 Range/Units 07:32 WBC 9.0 (4.0-11.0) 10^3/uL RBC 4.58 L (4.70-6.10) 10^6/uL Hgb 12.4 L (14.0-18.0) g/dL Hct 39.0 L (42.0-54.0) % MCV 85.2 (80.0-94.0) fL MCH 27.1 (25.9-34.0) pg MCHC 31.8 (29.9-35.2) g/dL RDW 15.2 H (11.0-15.0) % Plt Count 224 (150-450) 10^3/uL MPV 11.6 (9.5-13.5) fL Neut % (Auto) 75.6 H (43.0-75.0) % Lymph % (Auto) 16.4 L (20.5-60.0) % Bennett % (Auto) 5.8 (1.7-12.0) % Eos % (Auto) 1.5 (0.9-7.0) % Baso % (Auto) 0.4 (0.2-2.0) % Neut # (Auto) 6.8 H (1.4-6.5) 10^3/uL Lymph # (Auto) 1.5 (1.2-3.8) 10^3/uL Bennett # (Auto) 0.5 (0.3-0.8) 10^3/uL Eos # (Auto) 0.1 (0.0-0.7) 10^3/uL Baso # (Auto) 0.0 (0.0-0.1) 10^3/uL Abs Immat Gran (auto) 0.03 (0.00-0.03) 10^3/uL Imm/Tot Granulo (auto) 0.3 (0.0-0.5) % Sodium 139 (136-145) mmol/L Potassium 4.9 (3.5-5.1) mmol/L Chloride 102 (98-107) mmol/L Carbon Dioxide 29.9 (21.0-32.0) mmol/L Anion Gap 12.0 BUN 34.0 H (7.0-18.0) mg/dL Creatinine 1.34 H (0.70-1.30) mg/dL Est GFR ( Amer) >60 (>=60) Est GFR (Non-Af Amer) 55 L (>=60) BUN/Creatinine Ratio 25.4 Glucose 134 H (74-106) mg/dL Calcium 7.9 L (8.5-10.1) mg/dL Total Bilirubin 1.0 (0.2-1.0) mg/dL AST 56 H (15-37) U/L ALT 26 (16-63) U/L Alkaline Phosphatase 134 H (46-116) U/L Troponin I High Sens 28.3 (4.0-76.1) pg/mL NT-Pro-B Natriuret Pep 6028.0 H* (<=900.0) pg/mL Total Protein 7.4 (6.4-8.2) g/dL Albumin 3.1 L (3.4-5.0) g/dL Globulin 4.3 g/dL Albumin/Globulin Ratio 0.7 ECG Data Attestation: I personally reviewed and interpreted this ECG as follows: (EKG sinus tachy at 103, nad, aritfact QTc 418, non specific ST changes) Discharge Plan Discharge Chief Complaint: Shortness of Breath/Dyspnea Clinical Impression: Anasarca, Pulmonary edema Patient Disposition: Admitted as Observation Time of Disposition Decision: 08:30 Condition: Fair
[2023-12-16 07:47] LABS: Basophils Percent Auto 0.4 % (0.2-2.0); Eosinophils Absolute Auto 0.1 10^3/uL (0.0-0.7); Eosinophils Percent Auto 1.5 % (0.9-7.0); Hemoglobin 12.4 g/dL (14.0-18.0); Immature Granulocytes Abs Auto 0.03 10^3/uL (0.00-0.03); Immature Granulocytes Pct Auto 0.3 % (0.0-0.5); Lymphocytes Absolute Auto 1.5 10^3/uL (1.2-3.8); Lymphocytes Percent Auto 16.4 % (20.5-60.0); Mean Corpuscular HGB Conc 31.8 g/dL (29.9-35.2); Mean Corpuscular Hemoglobin 27.1 pg (25.9-34.0); Mean Corpuscular Volume 85.2 fL (80.0-94.0); Mean Platelet Volume 11.6 fL (9.5-13.5); Monocytes Absolute Auto 0.5 10^3/uL (0.3-0.8); Monocytes Percent Auto 5.8 % (1.7-12.0); Neutrophils Absolute Auto 6.8 10^3/uL (1.4-6.5); Neutrophils Percent Auto 75.6 % (43.0-75.0); Platelet Count 224 10^3/uL (150-450); Red Blood Count 4.58 10^6/uL (4.70-6.10); Red Cell Distribution Width 15.2 % (11.0-15.0)
[2023-12-16] MEDS: FUROSEMIDE 20 MG/2 ML VIAL IVP (07:51)
[2023-12-16 08:23] LABS: Alanine Aminotransferase 26 U/L (16-63); Albumin Globulin Ratio 0.7; Albumin Level 3.1 g/dL (3.4-5.0); Alkaline Phosphatase 134 U/L (46-116); Aspartate Amino Transferase 56 U/L (15-37); BUN Creatinine Ratio 25.4; Calcium 7.9 mg/dL (8.5-10.1); Carbon Dioxide 29.9 mmol/L (21.0-32.0); Chloride 102 mmol/L (98-107); Estimated GFR (African America >60 (>=60); Estimated GFR (Non-African Ame 55 (>=60); Globulin 4.3 g/dL; Glucose 134 mg/dL (74-106); Potassium 4.9 mmol/L (3.5-5.1); Sodium 139 mmol/L (136-145); Total Protein 7.4 g/dL (6.4-8.2); Troponin I High Sensitivity 28.3 pg/mL (4.0-76.1)
--- NOTE | 2023-12-16 09:50 | P.HP_ITS ---
HPI H&P: HPI History of Present Illness Chief complaint: FLUID RETENTION CLINICAL REF DR THACKER/ CANDIE Narrative: Patient presented to the emergency room with increasing shortness of breath. About a month ago he was stopped on his Maxide secondary to his creatinine becoming elevated. Since that time he had some increasing shortness of breath with especially in the last 24 to 48 hours. Does not check his weight or blood pressure at home. In ER found to have significant elevated BNP significant peripheral edema and pulmonary edema noted on chest x-ray. When I saw patient in the emergency room, he was resting in bed, some dyspnea with conversation. Some cough that sounds productive. This was occurring throughout the evaluation. With the labored breathing, cough and a history of COPD and now with acute combined congestive heart failure he will be admitted to inpatient status. Opioid HPI Opioid Management Most Recent Pain and Opioid Data: Last Pain Assessment 12/16/23 17:22 Last ORT Total Score 0 12/16/23 10:37 Last ORT Risk Category Low Risk 12/16/23 10:37 Review of Systems ROS Status of ROS 10 or more systems reviewed and unremark able except as noted in history and below Constitutional Denies: fever or chills PFSH PFS Medical History (Updated 12/16/23 @ 18:11 by Denys Breen MD) Abnormal colonoscopy ?R93.3 - Abnormal findings on diagnostic imaging of other parts of digestive tract (ICD-10) Surgical History (Updated 12/16/23 @ 10:47 by Morena Jose LPN) History of appendectomy ?Z90.49 - Acquired absence of other specified parts of digestive tract (ICD- 10) Social History (Updated 12/16/23 @ 10:47 by Morena Jose LPN) Within the past year, how often did you have a drink containing alcohol: never Within the past year, how many standard drinks containing alcohol did you have on a typical day: 1 or 2 Total score: 0 Score interpretation: A score less than 4 is consistent with normal alcohol consumption. Smoking status: Never smoker Second hand tobacco smoke exposure: No Non-prescribed substance use: denies use Previous occupational history: retired Highest level of school completed/degree received: high school graduate Are you now , , , , never or living with a partner: never In a typical week, how many times do you talk on the telephone with family, friends, or neighbors: 3 or more times per week How often do you get together with friends or relatives: 3 or more times per week How often do you attend latter day or denominational services: never Do you belong to any clubs or organizations such as latter day groups unions, fraternal or athletic groups, or school groups: no Total score: 1 Score interpretation: A score of less than or equal to 1 indicates the most socially isolated. Little interest or pleasure in doing things: not at all Feeling down, depressed, or hopeless: not at all Feel stressed/tense/nervous/anxious/difficulty sleeping: not at all Due to disability, difficulty making decisions: No Do you think of yourself as: straight/heterosexual Gender Identity: male Meds Home Medications and Allergies Home Medications ?Medication ?Instructions ?Recorded ?Confirmed ?Type diclofenac sodium 75 mg 75 mg PO Q12H 12/16/23 12/16/23 History tablet,delayed release furosemide 40 mg tablet 40 mg PO DAILY 12/16/23 12/16/23 History metformin 1,000 mg tablet 1,000 mg PO BID 12/16/23 12/16/23 History semaglutide 7 mg tablet (Rybelsus) 7 mg PO DAILY 12/16/23 12/16/23 History sitagliptin phosphate 100 mg 100 mg PO DAILY 12/16/23 12/16/23 History tablet (Januvia) Allergies Allergy/AdvReac Type Severity Reaction Status Date / Time topiramate [From Topamax] AdvReac Intermediate Altered Verified 12/16/23 07:22 Sense of Taste Exam Constitutional Vital Signs, click to edit/add: Last Vital Signs Temp 97.7 F 12/16/23 07:22 Pulse 103 H 12/16/23 08:20 Resp 18 12/16/23 09:31 BP 145/88 H 12/16/23 08:20 Pulse Ox 100 12/16/23 08:20 O2 Del Method Room Air 12/16/23 07:37 O2 Flow Rate 98 12/16/23 07:37 Documenting provider has reviewed patient's vital signs: yes Common normals: apparent distress (Moderate respiratory distress with coughing throughout the evaluation) Chest Common normals: inspection of chest normal and palpation of chest normal Respiratory Common normals: abnormal respiratory effort (Moderate conversational dyspnea) and not clear to ascultation bilaterally Auscultation: rales and rhonchi; no egophony Cardio Common normals: regular rhythm; irregular rate Rate: tachycardic GI Common normals: negative for Normal to inspection, nondistended, normoactive bowel sounds present (Extreme morbid obesity with large pannus with edema) Extremity Common normals: abnormal to inspection (4+ edema, evidence for chronic venous insufficiency) Neuro Common normals: oriented x3, CN's II-XII intact bilaterally and moves all extremities Results Labs Labs: Short CBC 12/16/23 Range/Units 07:32 WBC 9.0 (4.0-11.0) 10^3/uL Hgb 12.4 L (14.0-18.0) g/dL Hct 39.0 L (42.0-54.0) % Plt Count 224 (150-450) 10^3/uL BMP 12/16/23 07:32 Sodium 139 Potassium 4.9 Chloride 102 Carbon Dioxide 29.9 BUN 34.0 H Creatinine 1.34 H Glucose 134 H Calcium 7.9 L Liver Function 12/16/23 Range/Units 07:32 Total Bilirubin 1.0 (0.2-1.0) mg/dL AST 56 H (15-37) U/L ALT 26 (16-63) U/L Alkaline Phosphatase 134 H (46-116) U/L Albumin 3.1 L (3.4-5.0) g/dL Assessment and Plan Assessment and Plan (1) Pulmonary edema: (2) Anasarca: (3) Hypertension: (4) Hypoxia: (5) Moderate protein-calorie malnutrition: (6) Acute bronchitis: (7) COPD (chronic obstructive pulmonary disease): (8) Chronic kidney disease, stage III (moderate): (9) Anemia in chronic kidney disease: (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 This is secondary to acute exacerbation of COPD secondary to acute bronchitis. Acute combined congestive heart failure-echocardiogram shows somewhat reduced ejection fraction consistent with cardiomyopathy could not find previous for comparison. Diuresis today with Bumex drip. Repeat BNP in AM. Beta-blockers and nitrates. Acute bronchitis with relative hypoxia with O2 saturation of 92% on 3 L-this has been improving throughout the day. This is due to acute bronchitis causing an acute exacerbation of COPD-antibiotics and aerosol treatments. Chronic kidney disease stage III-this to be difficult to manage with his heart failure as outlined above-Bumex drip likely to be more kidney friendly NIDDM-insulin sliding scale Elevated liver function test secondary to passive congestion-monitor daily Hypomagnesemia-supplement Somewhat low T3-T4 and TSH are normal however. Consider monitoring as an outpatient Moderate protein calorie malnutrition-diet management Admission status: Patient with acute combined congestive heart failure with acute exacerbation of COPD secondary to acute bronchitis with relative hypoxia- medically necessary treatment will span 2 midnights. Inpatient status.
--- NOTE | 2023-12-16 09:54 | CA_ITS ---
Patient Name: TANIA SANTANA MR#: [id number] : 1965 Exam Date: 12/16/2023 Ordering Doctor: DR KHUSHBOO EDWARDS . ECHOCARDIOGRAM REPORT PROCEDURE: CA ECHO DOPPLER COMPLETE INDICATIONS: Dyspnea, edema, elevated BNP, hypertension COMPARISON: None. DESCRIPTION: COMPLETE ECHOCARDIOGRAM Real-time transthoracic echocardiography with 2D, M-mode, spectral and color flow Doppler performed. QUALITY: Technically difficult due to patient's condition. LEFT VENTRICLE: Severe dilatation. Normal left ventricular wall thickness. LV EF: Global left ventricular systolic function is difficult to assess but appears reduced; visually estimated ejection fraction is 35-40%. Unable to assess regional wall motion abnormalities. DIASTOLIC: Grade II diastolic dysfunction. ATRIAL SEPTUM: Inadequately seen. LEFT ATRIUM: Severe dilatation. RIGHT ATRIUM: Severe dilatation. RIGHT VENTRICLE: Poorly seen. Moderate dilatation. Systolic function appears reduced. TRICUSPID VALVE: Poorly seen. Trivial regurgitation. Doppler studies reveal moderately (45-60) elevated right sided pressures. RVSP 57 mmHg MITRAL VALVE: Poorly seen. Normal mobility and thickness. No evidence of mitral valve stenosis. There is no mitral annular calcification. Trivial mitral regurgitation. AORTIC VALVE: Poorly seen. Normal trileaflet appearance. No visible sclerosis. Normal leaflet mobility. No evidence of aortic valve stenosis. No aortic regurgitation. AORTIC ROOT: Normal diameter and appearance. PULMONIC VALVE: Not well visualized. No significant regurgitation. PERICARDIUM: No evidence of pericardial effusion. IVC: IVC is dilated (2.9 cm) with no collapse. CONCLUSION: 1. Global left ventricular systolic function is difficult to assess but appears reduce; visually estimated ejection fraction is 35-40% 2. Severe left ventricular dilatation 3. The right ventricle is moderately dilated with reduced systolic function 4. Biatrial dilation 5. Grade II diastolic dysfunction 6. Doppler studies reveal moderately (45-60) elevated right sided pressures. RVSP 57 mmHg 7. Valves are poorly seen; no obvious valvular abnormalities Adult Echocardiography Procedure Report Left Ventricle LVEDD (3.7 - 5.6 cm): 6.62 cm LVESD (2.2 - 4.0 cm): 5.43 cm LVIVS thickness (0.6 - 1.2 cm): 0.78 cm LVPW thickness (0.5 - 1.0 cm): 1.03 cm e': 0.10 m/s E - e': 6.92 LVOT Max Gradient: 1.72 mm[Hg] LVOT Area (cm2): 0.65 m/s Peak Velocity (LVOT): 0.65 m/s LVOT Diameter 2.10 cm Left Atrium LA Volume Index (2D A2C): 65.51 ml/m2 Left Atrium Systolic Dimension: 4.73 cm Mitral Valve MV E to A Ratio: 0.88 Mitral Valve A-Wave Peak Velocity: 0.78 m/s Mitral Valve E-Wave Peak Velocity: 0.69 m/s Right Ventricle Aorta AO Root Diam: 3.18 cm Aortic Valve AoV Area (Peak Harley): 2.31 cm2, 2.31 cm2 Peak Velocity(Antegrade Flow): 0.98 m/s Peak Gradient(Antegrade Flow): 3.85 mm[Hg] Tricuspid Valve Peak Velocity (Regurgitant Flow): 3.25 m/s Pulmonic Valve Peak Velocity: 0.65 m/s Peak Gradient: 1.67 mm[Hg] Right Atrium Right Atrium Systolic Pressure: 127.18 ml, 127.18 ml Dictated by: Fawad Reynaga M.D. on 12/16/2023 at 14:56 Approved by: Fawad Reynaga M.D. on 12/16/2023 at 15:03
--- OUTSIDE RECORDS SUMMARY | 2023-12-16 10:04 | XMS_ITS | CCD ---
Author Organization [facility] Care Team Providers Care Public Service Director Name Role Phone HOUSE, DR GLEZ Primary [...] Unavailable Merritt Thacker MD Primary Care Provider [phone] MERRITT THACKER Attending MERRITT Jackson Referring Unavailable MERRITT THACKER Primary Care Unavailable MERRITT THACKER Referring Unavailable MERRITT THACKER Primary Care Unavailable Allergies Allergy Classification Reported Allergen(s) Allergy Type Date of Onset Reaction(s) Facility Anti-Epileptic Agents (1 source) topiramate Drug Allergy 3 [facility] Repository (3 sources) topiramate; 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: [TOPIRAMATE] Drug Allergy 4 [facility] Repository (1 source) Topiramate Propensity to adverse reactions 3 [facility] Healthcare Medications Current Medications Medication Drug Class(es) [...] disease (2 sources) 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; 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: [Old [...] 07-13-2021 Episodic Other aftercare (1 source) Other [facility] (current) drug therapy; 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: [OTH GROUP HOME CURRENT DRUG THERAPY] Onset: 11-27-2019 Episodic Other aftercare (1 source) jail (current) use of anticoagulants; 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: [GROUP HOME CURRNT USE ANTICOAGULANTS] Onset: 11-27-2019 Episodic Other [...] Interpretation Reference Range Facility COMPREHENSIVE METABOLIC PANE [facility] 09-07-2023 Albumin [Mass/Vol] 3.8 g/dL Normal 3.2-5.3 [facility] Comment on above: Performed By: #### 2 4331-1, CMP #### [facility] ([id number]) [address], [address] [place] [address] ALP [Catalytic activity/Vol] 101 U/L Normal 39-130 [facility] Comment on above: Performed By: #### 2 4331-1, CMP #### [facility] ([id number]) [address], [address] [place] [address] ALT [Catalytic activity/Vol] 14 U/L Normal 0-40 [facility] Comment on above: Performed By: #### 2 4331-1, CMP #### [facility] ([id number]) [address], [address] [place] [address] Anion gap [Moles/Vol] 8 mmol/L Normal 5-15 [facility] Comment on above: Performed By: #### 2 4331-1, CMP #### [facility] ([id number]) [address], [address] [place] [address] AST [Catalytic activity/Vol] 14 U/L Normal 0-41 [facility] Comment on above: Performed By: #### 2 4331-1, CMP #### [facility] ([id number]) [address], [address] [place] [address] Bilirubin [Mass/Vol] 0.6 mg/dL Normal 0.3-1.2 [facility] Comment on above: Performed By: #### 2 4331-1, CMP #### [facility] ([id number]) [address], [address] [place] [address] Calcium [Mass/Vol] 8.8 mg/dL Normal 8.5-10.5 [facility] Comment on above: Performed By: #### 2 4331-1, CMP #### [facility] ([id number]) [address], [address] [place] [address] Chloride [Moles/Vol] 100 mmol/L Normal 98-109 [facility] Comment on above: Performed By: #### 2 4331-1, CMP #### [facility] ([id number]) [address], [address] [place] [address] CO2 [Moles/Vol] 31 mmol/L Normal 22-32 [facility] Comment on above: Performed By: #### 2 4331-1, CMP #### [facility] ([id number]) [address] [place] [address] Creatinine [Mass/Vol] 1.29 mg/dL Normal 0.60-1.30 [facility] Comment on above: Result Comment: METH OD TRACEABLE TO IDMS STANDARD Performed By: #### 2 4331-1, CMP #### [facility] ([id number]) [address], [address] [place] [address] GFR/1.73 sq M.predicted among non-blacks MDRD (S/P/Bld) [Vol rate/Area] 64 mL/min/{1.73_m2} Normal >59 [facility] Comment on above: Result Comment: Reported eGFR is based on the CKD-EPI 2020 equation that does not use a race coefficient. Performed By: #### 2 4331-1, CMP #### [facility] ([id number]) [address], [address] [place] [address] Glucose [Mass/Vol] 119 mg/dL High 65-99 [facility] Comment on above: Performed By: #### 2 4331-1, CMP #### [facility] ([id number]) [address], [address] [place] [address] Potassium [Moles/Vol] 4.4 mmol/L Normal 3.5-5.0 [facility] Comment on above: Performed By: #### 2 4331-1, CMP #### [facility] ([id number]) [address] [place] [address] Protein [Mass/Vol] 7.2 g/dL Normal 6.0-8.0 [facility] Comment on above: Performed By: #### 2 4331-1, CMP #### [facility] ([id number]) [address], [address] [place] [address] Sodium [Moles/Vol] 139 mmol/L Normal 134-146 [facility] Comment on above: Performed By: #### 2 4331-1, CMP #### [facility] ([id number]) [address], [address] [place] [address] Urea nitrogen [Mass/Vol] 21 mg/dL Normal 5-23 [facility] Comment on above: Performed By: #### 2 4331-1, CMP #### [facility] ([id number]) [address], [address] [place] [address] HGB A1C (GLYCO-HGB)on 2023 Glucose [Mass/Vol] 134 mg/dL Normal [facility] Comment on above: Performed By: #### 2 4331-1, CMP #### [facility] ([id number]) [address], [address] [address] HbA1c (Bld) [Mass fraction] 6.3 % High 4.4-5.6 [facility] Comment on above: Result Comment: NOTE ADA Guidelines Result HgbA1c Normal : less than 5.7 % Prediabetes : 5.7 % to 6.4 % Diabetes : > 6.4 % Use with caution in patients with abnormal hemoglobin variants as the half-life of red blood cells and in vivo glycation rates are affected. Performed By: #### 2 4331-1, CMP #### [facility] ([id number]) [address], [address] [place] [address] Lipid 1996 panelon 4 Cholesterol [Mass/Vol] 145 mg/dL Low 150-200 [facility] Comment on above: Performed By: #### 2 4331-1, CMP #### [facility] ([id number]) [address], [address] [place] [address] Cholesterol in HDL [Mass/Vol] 30 mg/dL Low >39 [facility] Comment on above: Result Comment: HDL <40 mg/dL - High Risk HDL > or = 40mg/dL- Desirable HDL >60 mg/dL - Negative Risk Performed By: #### 2 4331-1, CMP #### [facility] ([id number]) [address], [address] [place] [address] Cholesterol in LDL [Mass/Vol] 90 mg/dL Normal <130 [facility] Comment on above: Result Comment: LDL <100 mg/dL - Desirable LDL >160 mg/dL - High Risk Performed By: #### 2 4331-1, CMP #### [facility] ([id number]) [address] [address] [place] [address] Cholesterol in VLDL [Mass/Vol] 25 mg/dL Normal 0-30 [facility] Comment on above: Performed By: #### 2 4331-1, CMP #### [facility] ([id number]) [address], [facility] [address] [place] [address] CHOLESTEROL:HDL 4.8 Normal 1.0-5.0 [facility] Comment on above: Performed By: #### 2 4331-1, CMP #### [facility] ([id number]) [address], [address] [place] [address] Triglyceride [Mass/Vol] 123 mg/dL Normal 27-150 [facility] Comment on above: Performed By: #### 2 4331-1, CMP #### [facility] ([id number]) [address], [address] [address] CBC AUTO DIFFon 10-01-2020 BASO # 0.1 103/ul Normal 0.0-0.1 [facility] Comment on above: Performed By: #### T SH, LIPID, CMP, PSAD, T4 #### [facility] [address] [place], [place] [address] Wanda Anamaria Basophils/100 WBC (Bld) 0.8 % Normal 0.2-2.0 [facility] Comment on above: Performed By: #### T SH, LIPID, CMP, PSAD, T4 #### [facility] [address] [place], [place] [address] Wanda Anamaria EO # 0.3 103/ul Normal 0.0-0.7 [facility] Comment on above: Performed By: #### T SH, LIPID, CMP, PSAD, T4 #### [facility] [address] [place] [address] Wanda Conrad Eosinophils/100 WBC (Bld) 3.5 % Normal 0.9-7.0 [facility] Comment on above: Performed By: #### T SH, LIPID, CMP, PSAD, T4 #### [facility] [address] [place] [address] Wanda Conrad Erythrocyte distribution width (RBC) [Ratio] 15.2 % Critically high 11.0-15.0 [facility] Comment on above: Performed By: #### T SH, LIPID, CMP, PSAD, T4 #### [facility] [address] [place] [address] Wanda Conrad Hematocrit (Bld) [Volume fraction] 42.3 % Normal 42.0-54.0 [facility] Comment on above: Performed By: #### T SH, LIPID, CMP, PSAD, T4 #### [facility] [address] [place] [address] Wanda Conrad Hemoglobin (Bld) [Mass/Vol] 13.3 g/dL Critically low 14.0-18.0 [facility] Comment on above: Performed By: #### T SH, LIPID, CMP, PSAD, T4 #### [facility] [address] [place] [address] Wanda Conrad IG # 0.04 10e3/ul Critically high 0.00-0.03 [facility] Comment on above: Performed By: #### T SH, LIPID, CMP, PSAD, T4 #### [facility] [address] [place] [address] Wandavanda Conrad IG % 0.4 % Normal 0.0-0.5 [facility] Comment on above: Performed By: #### T SH, LIPID, CMP, PSAD, T4 #### [facility] [address] [place] [address] Wanda Anamaria LYMPH # 2.8 103/ul Normal 1.2-3.8 [facility] Comment on above: Performed By: #### T SH, LIPID, CMP, PSAD, T4 #### [facility] [address] [place] [address] Wanda Conrad Lymphocytes/100 WBC (Bld) 30.2 % Normal 20.5-60.0 [facility] Comment on above: Performed By: #### T SH, LIPID, CMP, PSAD, T4 #### [facility] [address] [place] [address] Wandavanda Conrad MANUAL DIFF REQ NO Normal [facility] Comment on above: Performed By: #### T SH, LIPID, CMP, PSAD, T4 #### [facility] [address] [place] [address] Wanda Conrad MCH (RBC) [Entitic mass] 26.4 pg Normal 25.9-34.0 [facility] Comment on above: Performed By: #### T SH, LIPID, CMP, PSAD, T4 #### [facility] [address] [place] [address] Wandavanda Conrad MCHC (RBC) [Mass/Vol] 31.4 g/dL Normal 29.9-35.2 [facility] Comment on above: Performed By: #### T SH, LIPID, CMP, PSAD, T4 #### [facility] [address] [place] [address] Wanda Conrad MCV (RBC) [Entitic vol] 83.9 fL Normal 80.0-94.0 [facility] Comment on above: Performed By: #### T SH, LIPID, CMP, PSAD, T4 #### [facility] [address] [place] [address] Wandavanda Antoineen MONO # 0.6 103/ul Normal 0.3-0.8 [facility] Comment on above: Performed By: #### T SH, LIPID, CMP, PSAD, T4 #### [facility] [address] [place] [address] Wandavanda Conrad Monocytes/100 WBC (Bld) 6.2 % Normal 1.7-12.0 [facility] Comment on above: Performed By: #### T SH, LIPID, CMP, PSAD, T4 #### [facility] [address] [place], [place] [address] Wanda Conrad NEUT # 5.4 103/ul Normal 1.4-6.5 [facility] Comment on above: Performed By: #### T SH, LIPID, CMP, PSAD, T4 #### [facility] [address] [place], [place] [address] Wanda Conrad Neutrophils/100 WBC (Bld) 58.9 % Normal 43.0-75.0 [facility] Comment on above: Performed By: #### T SH, LIPID, CMP, PSAD, T4 #### [facility] [address] [place], [place] [address] Wanda Conrad Platelet mean volume (Bld) [Entitic vol] 10.5 fL Normal 9.5-13.5 [facility] Comment on above: Performed By: #### T SH, LIPID, CMP, PSAD, T4 #### [facility] [address] [place] [id number] Wanda Conrad PLT 252 103/ul Normal 150-450 [facility] Comment on above: Performed By: #### T SH, LIPID, CMP, PSAD, T4 #### [facility] [address] [place], [place] [address] Wanda Conrad RBC 5.04 106/ul Normal 4.70-6.10 [facility] Comment on above: Performed By: #### T SH, LIPID, CMP, PSAD, T4 #### [facility] [address] [place], [place] [address] Wanda Conrad WBC 9.1 103/ul Normal 4.0-11.0 [facility] Comment on above: Performed By: #### T SH, LIPID, CMP, PSAD, T4 #### [facility] [address] [place], [place] [address] Wanda Conrad LIPID PROFILEon 10-01-2020 CHOL-HDL RATIO NORM SEE BELOW Normal [facility] Comment on above: Result Comment: 3.3 - 4.4 LOW RISK 4.4 - 7.1 AVERAGE RISK 7.1 - 11.0 MODERATE RISK >11.0 HIGH RISK Performed By: #### T SH, LIPID, CMP, PSAD, T4 #### [facility] [address] [place], [place] [address] Wanda Anamaria Cholesterol [Mass/Vol] 137 mg/dL Normal <=200 [facility] Comment on above: Performed By: #### T SH, LIPID, CMP, PSAD, T4 #### [facility] [address] [place], [place] [address] Wanda Anamaria Cholesterol in HDL [Mass/Vol] 31 mg/dL Normal [facility] Comment on above: Performed By: #### T SH, LIPID, CMP, PSAD, T4 #### [facility] [address] [place], [place] [address] Wanda Anamaria Cholesterol in LDL [Mass/Vol] 81.8 mg/dL Normal [facility] Comment on above: Performed By: #### T SH, LIPID, CMP, PSAD, T4 #### [facility] [address] [place], [place] [address] Wanda Anamaria Cholesterol.total/Cho lesterol in HDL [Mass ratio] 4.4 {ratio} Normal [facility] Comment on above: Performed By: #### T SH, LIPID, CMP, PSAD, T4 #### [facility] [address] [place], [place] [address] Wanda Anamaria HDL NORMAL > or = 60 mg/dl - LOW CARDIOVASCULAR RISK <40 mg/dl - HIGH CARDIOVASCULAR RISK Normal [facility] Comment on above: Performed By: #### T SH, LIPID, CMP, PSAD, T4 #### [facility] [address] [place] [id number] Wanda Anamaria LDL CALC NORMAL SEE BELOW Normal [facility] Comment on above: Result Comment: <100 mg/dl OPTIMAL 100 - 129 mg/dl NEAR OR ABOVE OPTIMAL 130 - 159 mg/dl BORDERLINE HIGH 160 - 189 mg/dl HIGH >190 mg/dl VERY HIGH Performed By: #### T SH, LIPID, CMP, PSAD, T4 #### [facility] [address] [place] [id number] Wanda Anamaria Triglyceride [Mass/Vol] 121 mg/dL Normal <=150 [facility] Comment on above: Performed By: #### T SH, LIPID, CMP, PSAD, T4 #### [facility] [address] [place] [address] Wanda Conrad VLDL CALC 24.2 mg/dL Normal [facility] Comment on above: Performed By: #### T SH, LIPID, CMP, PSAD, T4 #### [facility] [address] [place] [address] Wandavanda Conrad PROF 14(COMP METB)on 021 Albumin [Mass/Vol] 3.3 g/dL Critically low 3.5-5.0 [facility] Comment on above: Performed By: #### T SH, LIPID, CMP, PSAD, T4 #### [facility] [address] [place] [address] Wanda Conrad Albumin/Globulin [Mass ratio] 0.7 {ratio} Normal [facility] Comment on above: Performed By: #### T SH, LIPID, CMP, PSAD, T4 #### [facility] [address] [place] [address] Wanda Conrad ALP [Catalytic activity/Vol] 113 U/L Normal 38-126 [facility] Comment on above: Performed By: #### T SH, LIPID, CMP, PSAD, T4 #### [facility] [address] [place] [address] Wanda Conrad ALT [Catalytic activity/Vol] 25 U/L Normal 21-72 [facility] Comment on above: Performed By: #### T SH, LIPID, CMP, PSAD, T4 #### [facility] [address] [place] [address] Wanda Conrad Anion gap [Moles/Vol] 12.4 mmol/L Normal [facility] Comment on above: Performed By: #### T SH, LIPID, CMP, PSAD, T4 #### [facility] [address] [place] [address] Wanda Conrad AST [Catalytic activity/Vol] 16 U/L Critically low 17-59 [facility] Comment on above: Performed By: #### T SH, LIPID, CMP, PSAD, T4 #### [facility] [address] [place] [address] Wanda Anamaria Bilirubin [Mass/Vol] 0.4 mg/dL Normal 0.2-1.3 [facility] Comment on above: Performed By: #### T SH, LIPID, CMP, PSAD, T4 #### [facility] [address] [place] [address] Wanda Anamaria Calcium [Mass/Vol] 8.8 mg/dL Normal 8.4-10.2 [facility] Comment on above: Performed By: #### T SH, LIPID, CMP, PSAD, T4 #### [facility] [address] [place] [address] Wanda Anamaria Chloride [Moles/Vol] 102 mmol/L Normal 98-107 [facility] Comment on above: Performed By: #### T SH, LIPID, CMP, PSAD, T4 #### [facility] [address] [place] [address] Wanda Anamaria CO2 [Moles/Vol] 30.0 mmol/L Normal 22.0-30.0 [facility] Comment on above: Performed By: #### T SH, LIPID, CMP, PSAD, T4 #### [facility] [address] [place] [address] Wanda Anamaria Creatinine [Mass/Vol] 1.29 mg/dL Critically high 0.66-1.25 [facility] Comment on above: Performed By: #### T SH, LIPID, CMP, PSAD, T4 #### [facility] [address] [place] [address] Wanda Anamaria EGFR-AF CITIZEN OF [place] >60 Normal >=60 [facility] Comment on above: Performed By: #### T SH, LIPID, CMP, PSAD, T4 #### [facility] [address] [place] [address] Wanda Anamaria EGFR-NON AF CITIZEN OF [place] 58 mL/min/1.73m2 Critically low >=60 [facility] Comment on above: Performed By: #### T SH, LIPID, CMP, PSAD, T4 #### [facility] [address] [place] [address] Wanda Anamaria Globulin (S) [Mass/Vol] 4.5 g/dL Normal [facility] Comment on above: Performed By: #### T SH, LIPID, CMP, PSAD, T4 #### [facility] [address] [place] [address] Wanda Anamaria Glucose [Mass/Vol] 153 mg/dL Critically high 74-[address] [facility] Comment on above: Performed By: #### T SH, LIPID, CMP, PSAD, T4 #### [facility] [address] [place] [address] Wanda Anamaria Potassium [Moles/Vol] 4.4 mmol/L Normal 3.4-5.0 [facility] Comment on above: Performed By: #### T SH, LIPID, CMP, PSAD, T4 #### [facility] [address] [place] [address] Wanda Anamaria Protein [Mass/Vol] 7.8 g/dL Normal 6.1-8.2 [facility] Comment on above: Performed By: #### T SH, LIPID, CMP, PSAD, T4 #### [facility] [address] [place] [address] Wanda Anamaria Sodium [Moles/Vol] 140 mmol/L Normal 137-145 [facility] Comment on above: Performed By: #### T SH, LIPID, CMP, PSAD, T4 #### [facility] [address] [place] [address] Wanda Anamaria Urea nitrogen [Mass/Vol] 28.0 mg/dL Critically high 9.0-20.0 [facility] Comment on above: Performed By: #### T SH, LIPID, CMP, PSAD, T4 #### [facility] [address] [place] [address] Wanda Anamaria Urea nitrogen/Creatinine [Mass ratio] 21.7 mg/mg Normal [facility] Comment on above: Performed By: #### T SH, LIPID, CMP, PSAD, T4 #### [facility] [address] [place] [address] Wanda Anamaria T4on 10-01-2020 T4 [Mass/Vol] 5.90 ug/dL Normal 5.53-11.00 [facility] Comment on above: Performed By: #### T SH, LIPID, CMP, PSAD, T4 #### [facility] [address] [place] [address] Wanda Conrad TSHon 10-01-2020 TSH 2.487 uIU/mL Normal 0.470-4.680 [facility] Comment on above: Performed By: #### T SH, LIPID, CMP, PSAD, T4 #### [facility] [address] [place] [address] Wanda Conrad TSH RANGE SEE BELOW Normal [facility] Comment on above: Result Comment: <0.3 4 UIU/ml HYPERTHYROID 0.34-5.60 UIU/ml EUTHYROID >5.60 UIU/ml HYPOTHYROID Performed By: #### T SH, LIPID, CMP, PSAD, T4 #### [facility] [address] [place] [address] Wanda Conrad XR LSPINE MIN 4 VIEWSon [...] EFRA HERBERT Date: 2020-04-04 15:05 Normal [facility] ACETAMINOPHENon 11-25-2019 Acetaminophen [Mass/Vol] ug/mL Critically low 10.1-30.0 [facility] Comment on above: Performed By: #### A CET #### [facility] [address] [place] [address] Wanda Conrad AMMONIAon 11-25-2019 Ammonia (P) [Moles/Vol] 7 umol/L Critically low 10-30 [facility] Comment on above: Performed By: #### A MM #### [facility] [address] [place] [address] Wanda Conrad CBC AUTO DIFFon 11-25-2019 BASO # 0.0 103/ul Normal 0.0-0.1 [facility] Comment on above: Performed By: #### T SH, LIPID, CMP, PSAD, T4 #### [facility] [address] [place] [address] Wanda Conrad Basophils/100 WBC (Bld) 0.4 % Normal 0.2-2.0 [facility] Comment on above: Performed By: #### T SH, LIPID, CMP, PSAD, T4 #### [facility] [address] [place] [address] Wandavanda Conrad EO # 0.2 103/ul Normal 0.0-0.7 [facility] Comment on above: Performed By: #### T SH, LIPID, CMP, PSAD, T4 #### [facility] [address] [place] [address] Wanda Conrad Eosinophils/100 WBC (Bld) 1.8 % Normal 0.9-7.0 [facility] Comment on above: Performed By: #### T SH, LIPID, CMP, PSAD, T4 #### [facility] [address] [place] [address] Wandavanda Conrad Erythrocyte distribution width (RBC) [Ratio] 14.1 % Normal 11.0-15.0 [facility] Comment on above: Performed By: #### T SH, LIPID, CMP, PSAD, T4 #### [facility] [address] [place] [address] Wanda Conrad Hematocrit (Bld) [Volume fraction] 41.2 % Critically low 42.0-54.0 [facility] Comment on above: Performed By: #### T SH, LIPID, CMP, PSAD, T4 #### [facility] [address] [place] [address] Wandavanda Conrad Hemoglobin (Bld) [Mass/Vol] 13.3 g/dL Critically low 14.0-18.0 [facility] Comment on above: Performed By: #### T SH, LIPID, CMP, PSAD, T4 #### [facility] [address] [place] [address] Wanda Anamaria IG # 0.05 10e3/ul Critically high 0.00-0.03 [facility] Comment on above: Performed By: #### T SH, LIPID, CMP, PSAD, T4 #### [facility] [address] [place] [address] Wanda Anamaria IG % 0.5 % Normal 0.0-0.5 [facility] Comment on above: Performed By: #### T SH, LIPID, CMP, PSAD, T4 #### [facility] [address] [place] [address] Wanda Anamaria LYMPH # 2.3 103/ul Normal 1.2-3.8 [facility] Comment on above: Performed By: #### T SH, LIPID, CMP, PSAD, T4 #### [facility] [address] [place] [address] Wanda Conrad Lymphocytes/100 WBC (Bld) 21.1 % Normal 20.5-60.0 [facility] Comment on above: Performed By: #### T SH, LIPID, CMP, PSAD, T4 #### [facility] [address] [place] [address] Wanda Conrad MANUAL DIFF REQ NO Normal [facility] Comment on above: Performed By: #### T SH, LIPID, CMP, PSAD, T4 #### [facility] [address] [place] [address] Wanda Conrad MCH (RBC) [Entitic mass] 26.1 pg Normal 25.9-34.0 [facility] Comment on above: Performed By: #### T SH, LIPID, CMP, PSAD, T4 #### [facility] [address] [place] [address] Wanda Conrad MCHC (RBC) [Mass/Vol] 32.3 g/dL Normal 29.9-35.2 [facility] Comment on above: Performed By: #### T SH, LIPID, CMP, PSAD, T4 #### [facility] [address] [address] Wanda Conrad MCV (RBC) [Entitic vol] 80.9 fL Normal 80.0-94.0 [facility] Comment on above: Performed By: #### T SH, LIPID, CMP, PSAD, T4 #### [facility] [address] [place] [address] Wanda Conrad MONO # 0.5 103/ul Normal 0.3-0.8 [facility] Comment on above: Performed By: #### T SH, LIPID, CMP, PSAD, T4 #### [facility] [address] [place] [address] Wanda Conrad Monocytes/100 WBC (Bld) 4.8 % Normal 1.7-12.0 [facility] Comment on above: Performed By: #### T SH, LIPID, CMP, PSAD, T4 #### [facility] [address] [place] [address] Wanda Conrad NEUT # 7.8 103/ul Critically high 1.4-6.5 [facility] Comment on above: Performed By: #### T SH, LIPID, CMP, PSAD, T4 #### [facility] [address] [place] [address] Wanda Conrad Neutrophils/100 WBC (Bld) 71.4 % Normal 43.0-75.0 [facility] Comment on above: Performed By: #### T SH, LIPID, CMP, PSAD, T4 #### [facility] [address] [place], [place] [id number] Wanda Conrad Platelet mean volume (Bld) [Entitic vol] 9.6 fL Normal 9.5-13.5 [facility] Comment on above: Performed By: #### T SH, LIPID, CMP, PSAD, T4 #### [facility] [address] [place] [address] Wanda Conrad PLT 287 103/ul Normal 150-450 [facility] Comment on above: Performed By: #### T SH, LIPID, CMP, PSAD, T4 #### [facility] [address] [place] [address] Wanda Conrad RBC 5.09 106/ul Normal 4.70-6.10 [facility] Comment on above: Performed By: #### T SH, LIPID, CMP, PSAD, T4 #### [facility] [address] [place], [place] [address] Wanda Conrad WBC 10.8 103/ul Normal 4.0-11.0 [facility] Comment on above: Performed By: #### T SH, LIPID, CMP, PSAD, T4 #### [facility] [address] [place], [place] [address] HEAD WO CONon 11-25-2019 [...] EFRA MARRERO Date: 2019-11-25 01:49 Normal [facility] ETHANOL (BLD ALC)on 11-25-19 20 ALC NOTE NOTE: 80 mg/dl is the legal limit for a blood alcohol level Normal [facility] Comment on above: Performed By: #### T SH, LIPID, CMP, PSAD, T4 #### [facility] [address] [place], [place] [address] Wanda Conrad Ethanol [Mass/Vol] 205 mg/dL Normal [facility] Comment on above: Performed By: #### T SH, LIPID, CMP, PSAD, T4 #### [facility] [address] [id number] Wandavanda Conrad PROF 14(COMP METB)on 020 Albumin [Mass/Vol] 3.2 g/dL Critically low 3.5-5.0 [facility] Comment on above: Performed By: #### T SH, LIPID, CMP, PSAD, T4 #### [facility] [address] [place], [place] [address] Wanda Anamaria Albumin/Globulin [Mass ratio] 0.8 {ratio} Normal [facility] Comment on above: Performed By: #### T SH, LIPID, CMP, PSAD, T4 #### [facility] [address] [address] Wanda Anamaria ALP [Catalytic activity/Vol] 111 U/L Normal 38-126 [facility] Comment on above: Performed By: #### T SH, LIPID, CMP, PSAD, T4 #### [facility] [address] [place] [address] Wanda Anamaria ALT [Catalytic activity/Vol] 23 U/L Normal 21-72 [facility] Comment on above: Performed By: #### T SH, LIPID, CMP, PSAD, T4 #### [facility] [address] [place] [address] Wanda Anamaria Anion gap [Moles/Vol] 16.5 mmol/L Normal Th [facility] Comment on above: Performed By: #### T SH, LIPID, CMP, PSAD, T4 #### [facility] [address] [place] [address] Wanda Anamaria AST [Catalytic activity/Vol] 15 U/L Critically low 17-59 [facility] Comment on above: Performed By: #### T SH, LIPID, CMP, PSAD, T4 #### [facility] [address] [place] [address] Wanda Anamaria Bilirubin [Mass/Vol] 0.3 mg/dL Normal 0.2-1.3 [facility] Comment on above: Performed By: #### T SH, LIPID, CMP, PSAD, T4 #### [facility] [address] [place] [address] Wanda Anamaria Calcium [Mass/Vol] 8.2 mg/dL Critically low 8.4-10.2 [facility] Comment on above: Performed By: #### T SH, LIPID, CMP, PSAD, T4 #### [facility] [address] [place] [address] Wanda Anamaria Chloride [Moles/Vol] 98 mmol/L Normal 98-107 [facility] Comment on above: Performed By: #### T SH, LIPID, CMP, PSAD, T4 #### [facility] [address] [place] [address] Wanda Anamaria CO2 [Moles/Vol] 23.2 mmol/L Normal 22.0-30.0 [facility] Comment on above: Performed By: #### T SH, LIPID, CMP, PSAD, T4 #### [facility] [address] [place] [address] Wanda Anamaria Creatinine [Mass/Vol] 0.91 mg/dL Normal 0.66-1.25 [facility] Comment on above: Performed By: #### T SH, LIPID, CMP, PSAD, T4 #### [facility] [address] [place] [address] Wanda Anamaria EGFR-AF CITIZEN [place] >60 Normal >=60 [facility] Comment on above: Performed By: #### T SH, LIPID, CMP, PSAD, T4 #### [facility] [address] [place] [address] Wanda Anamaria EGFR-NON AF CITIZEN OF [place] >60 Normal >=60 [facility] Comment on above: Performed By: #### T SH, LIPID, CMP, PSAD, T4 #### [facility] [address] [place] [address] Wanda Anamaria Globulin (S) [Mass/Vol] 4.1 g/dL Normal [facility] Comment on above: Performed By: #### T SH, LIPID, CMP, PSAD, T4 #### [facility] [address] [place] [address] Wanda Anamaria Glucose [Mass/Vol] 231 mg/dL Critically high 74-[address] [facility] Comment on above: Performed By: #### T SH, LIPID, CMP, PSAD, T4 #### [facility] [address] [place] [address] Wanda Anamaria Potassium [Moles/Vol] 3.7 mmol/L Normal 3.4-5.0 [facility] Comment on above: Performed By: #### T SH, LIPID, CMP, PSAD, T4 #### [facility] [address] [address] Wanda Anamaria Protein [Mass/Vol] 7.3 g/dL Normal 6.1-8.2 [facility] Comment on above: Performed By: #### T SH, LIPID, CMP, PSAD, T4 #### [facility] [address] [place] [address] Wanda Anamaria Sodium [Moles/Vol] 134 mmol/L Critically low 137-145 Th [facility] Comment on above: Performed By: #### T SH, LIPID, CMP, PSAD, T4 #### [facility] [address] [place] [address] Wanda Anamaria Urea nitrogen [Mass/Vol] 22.0 mg/dL Critically high 9.0-20.0 [facility] Comment on above: Performed By: #### T SH, LIPID, CMP, PSAD, T4 #### [facility] [address] [place] [address] Wandavanda Conrad Urea nitrogen/Creatinine [Mass ratio] 24.2 mg/mg Normal [facility] Comment on above: Performed By: #### T SH, LIPID, CMP, PSAD, T4 #### [facility] [address] [place] [address] Wanda Conrad SALICYLATEon 11-25-2019 SALICYLATE 1.3 mg/dL Normal <=20.0 [facility] Comment on above: Performed By: #### T SH, LIPID, CMP, PSAD, T4 #### [facility] [address] [place], [place] [address] Wanda Anamaria XR CHEST 1 Von 11-25-2019 [...] EFRA MARRERO Date: 2019-11-25 01:51 Normal [facility] XR PELVIS 1_2 VIEWSon 2019 XR PELVIS [...] EFRA MARRERO Date: 2019-11-25 01:52 Normal The [facility] CBC AUTO DIFFon 10-18-2019 BASO # 0.1 103/ul Normal 0.0-0.1 [facility] Comment on above: Performed By: #### C BC #### [facility] [address] [place], [place] [address] Wanda Anamaria Basophils/100 WBC (Bld) 0.6 % Normal 0.2-2.0 [facility] Comment on above: Performed By: #### C BC #### [facility] [address] [place], [place] [address] Wanda Anamaria EO # 0.2 103/ul Normal 0.0-0.7 [facility] Comment on above: Performed By: #### C BC #### [facility] [address] [place], [place] [address] Wanda Anamaria Eosinophils/100 WBC (Bld) 1.7 % Normal 0.9-7.0 [facility] Comment on above: Performed By: #### C BC #### [facility] [address] [place], [place] [address] Wanda Anamaria Erythrocyte distribution width (RBC) [Ratio] 14.4 % Normal 11.0-15.0 [facility] Comment on above: Performed By: #### C BC #### [facility] [address] [place] [address] Wanda Anamaria Hematocrit (Bld) [Volume fraction] 44.2 % Normal 42.0-54.0 [facility] Comment on above: Performed By: #### C BC #### [facility] [address] [phone] Wanda Anaamria Hemoglobin (Bld) [Mass/Vol] 13.9 g/dL Critically low 14.0-18.0 [facility] Comment on above: Performed By: #### C BC #### [facility] [address] [phone] Wanda Anamaria IG # 0.04 10e3/ul Critically high 0.00-0.03 [facility] Comment on above: Performed By: #### C BC #### [facility] [address] [phone] Wanda Anamaria IG % 0.4 % Normal 0.0-0.5 [facility] Comment on above: Performed By: #### C BC #### [facility] [address] [place] [address] Wanda Anamaria LYMPH # 2.8 103/ul Normal 1.2-3.8 [facility] Comment on above: Performed By: #### C BC #### [facility] [address] [place], [place] [address] Wanda Anamaria Lymphocytes/100 WBC (Bld) 28.2 % Normal 20.5-60.0 [facility] Comment on above: Performed By: #### C BC #### [facility] [address] [place], [place] [address] Wanda Anamaria MANUAL DIFF REQ NO Normal [facility] Comment on above: Performed By: #### C BC #### [facility] [address] [place], [place] [address] Wanda Anamaria MCH (RBC) [Entitic mass] 25.9 pg Normal 25.9-34.0 [facility] Comment on above: Performed By: #### C BC #### [facility] [address] [place], [place] [address] Wanda Anamaria MCHC (RBC) [Mass/Vol] 31.4 g/dL Normal 29.9-35.2 [facility] Comment on above: Performed By: #### C BC #### [facility] [address] [place], [place] [address] Wanda Anamaria MCV (RBC) [Entitic vol] 82.3 fL Normal 80.0-94.0 [facility] Comment on above: Performed By: #### C BC #### [facility] [address] [phone] Wandavanda Antoineen MONO # 0.5 103/ul Normal 0.3-0.8 [facility] Comment on above: Performed By: #### C BC #### [facility] [address] [phone] Wanda Anamaria Monocytes/100 WBC (Bld) 5.2 % Normal 1.7-12.0 [facility] Comment on above: Performed By: #### C BC #### [facility] [address] [place] [address] Wanda Anamaria NEUT # 6.4 103/ul Normal 1.4-6.5 [facility] Comment on above: Performed By: #### C BC #### [facility] [address] [place], [place] [address] Wanda Anamaria Neutrophils/100 WBC (Bld) 63.9 % Normal 43.0-75.0 [facility] Comment on above: Performed By: #### C BC #### [facility] [address] [place], [place] [address] Wandavanda Conrad Platelet mean volume (Bld) [Entitic vol] 10.5 fL Normal 9.5-13.5 [facility] Comment on above: Performed By: #### C BC #### [facility] [address] [place], [place] [address] Wanda Anamaria PLT 281 103/ul Normal 150-450 [facility] Comment on above: Performed By: #### C BC #### [facility] [address] [place], [place] [address] Wanda Anamaria RBC 5.37 106/ul Normal 4.70-6.10 [facility] Comment on above: Performed By: #### C BC #### [facility] [address] [place], [place] [address] Wanda Anamaria WBC 10.0 103/ul Normal 4.0-11.0 [facility] Comment on above: Performed By: #### C BC #### [facility] [address] [phone] Wanda Anamaria GLYCOHEMOGLOBIN A1Con 2019 Glucose [Mass/Vol] 163 mg/dL Normal [facility] Comment on above: Performed By: #### T SH, LIPID, CMP, PSAD, T4 #### [facility] [address] [phone] Wanda Anamaria HbA1c (Bld) [Mass fraction] 7.3 % Critically high <=6.0 [facility] Comment on above: Performed By: #### T SH, LIPID, CMP, PSAD, T4 #### [facility] [address] [place] [address] Wanda Anamaria LIPID PROFILEon 10-18-2019 CHOL-HDL RATIO NORM SEE BELOW Normal [facility] Comment on above: Result Comment: 3.3 - 4.4 LOW RISK 4.4 - 7.1 AVERAGE RISK 7.1 - 11.0 MODERATE RISK >11.0 HIGH RISK Performed By: #### T SH, LIPID, CMP, PSAD, T4 #### [facility] [address] [place], [place] [address] Wanda Anamaria Cholesterol [Mass/Vol] 130 mg/dL Normal <=200 [facility] Comment on above: Performed By: #### T SH, LIPID, CMP, PSAD, T4 #### [facility] [address] [place], [place] [address] Wanda Anamaria Cholesterol in HDL [Mass/Vol] 32 mg/dL Normal [facility] Comment on above: Performed By: #### T SH, LIPID, CMP, PSAD, T4 #### [facility] [address] [phone] Wanda Anamaria Cholesterol in LDL [Mass/Vol] 76.6 mg/dL Normal [facility] Comment on above: Performed By: #### T SH, LIPID, CMP, PSAD, T4 #### [facility] [address] [place], [place] [address] Wanda Anamaria Cholesterol.total/Cho lesterol in HDL [Mass ratio] 4.1 {ratio} Normal [facility] Comment on above: Performed By: #### T SH, LIPID, CMP, PSAD, T4 #### [facility] [address] [phone] Wanda Anamaria HDL NORMAL > or = 60 mg/dl - LOW CARDIOVASCULAR RISK <40 mg/dl - HIGH CARDIOVASCULAR RISK Normal [facility] Comment on above: Performed By: #### T SH, LIPID, CMP, PSAD, T4 #### [facility] [address] [address] Wandavanda Conrad LDL CALC NORMAL SEE BELOW Normal [facility] Comment on above: Result Comment: <100 mg/dl OPTIMAL 100 - 129 mg/dl NEAR OR ABOVE OPTIMAL 130 - 159 mg/dl BORDERLINE HIGH 160 - 189 mg/dl HIGH >190 mg/dl VERY HIGH Performed By: #### T SH, LIPID, CMP, PSAD, T4 #### [facility] [address] [address] Wanda Anamaria Triglyceride [Mass/Vol] 107 mg/dL Normal <=150 [facility] Comment on above: Performed By: #### T SH, LIPID, CMP, PSAD, T4 #### [facility] [address] [address] Wandavanda Conrad VLDL CALC 21.4 mg/dL Normal [facility] Comment on above: Performed By: #### T SH, LIPID, CMP, PSAD, T4 #### [facility] [address] [phone] Wandavanda Conrad MICROALBUMIN, RAND URon 09-28 mALB <1.3 Normal <=30.0 [facility] Comment on above: Performed By: #### M ALBR #### [facility] [address] [place], [place] [address] Wandavanda Conrad mALBH PLEASE NOTE: NORMAL RANGE CHANGE, TESTING PERFORMED AT [facility]. Normal The [facility] Comment on above: Performed By: #### M ALBR #### [facility] [address] [place], [place] [address] Wanda Conrad PROF 14(COMP METB)on 020 Albumin [Mass/Vol] 3.5 g/dL Normal 3.5-5.0 [facility] Comment on above: Performed By: #### T SH, LIPID, CMP, PSAD, T4 #### [facility] [address] [place], [place] [address] Wanda Anamaria Albumin/Globulin [Mass ratio] 0.8 {ratio} Normal [facility] Comment on above: Performed By: #### T SH, LIPID, CMP, PSAD, T4 #### [facility] [address] [place], [place] [address] Wanda Anamaria ALP [Catalytic activity/Vol] 103 U/L Normal 38-126 [facility] Comment on above: Performed By: #### T SH, LIPID, CMP, PSAD, T4 #### [facility] [address] [place] [address] Wanda Anamaria ALT [Catalytic activity/Vol] 21 U/L Normal 21-72 [facility] Comment on above: Performed By: #### T SH, LIPID, CMP, PSAD, T4 #### [facility] [address] [place] [address] Wanda Anamaria Anion gap [Moles/Vol] 13.9 mmol/L Normal [facility] Comment on above: Performed By: #### T SH, LIPID, CMP, PSAD, T4 #### [facility] [address] [place], [place] [address] Wanda Anamaria AST [Catalytic activity/Vol] 18 U/L Normal 17-59 [facility] Comment on above: Performed By: #### T SH, LIPID, CMP, PSAD, T4 #### [facility] [address] [place], [place] [address] Wanda Anamaria Bilirubin [Mass/Vol] 0.5 mg/dL Normal 0.2-1.3 [facility] Comment on above: Performed By: #### T SH, LIPID, CMP, PSAD, T4 #### [facility] [address] [place], [place] [address] Wanda Anamaria Calcium [Mass/Vol] 8.9 mg/dL Normal 8.4-10.2 [facility] Comment on above: Performed By: #### T SH, LIPID, CMP, PSAD, T4 #### [facility] [address] [place] [address] Wanda Anamaria Chloride [Moles/Vol] 100 mmol/L Normal 98-107 [facility] Comment on above: Performed By: #### T SH, LIPID, CMP, PSAD, T4 #### [facility] [address] [place] [address] Wanda Anamaria CO2 [Moles/Vol] 28.2 mmol/L Normal 22.0-30.0 [facility] Comment on above: Performed By: #### T SH, LIPID, CMP, PSAD, T4 #### [facility] [address] [place] [address] Wanda Anamaria Creatinine [Mass/Vol] 1.08 mg/dL Normal 0.66-1.25 [facility] Comment on above: Performed By: #### T SH, LIPID, CMP, PSAD, T4 #### [facility] [address] [place] [address] Wanda Anamaria EGFR-AF CITIZEN [place] >60 Normal >=60 [facility] Comment on above: Performed By: #### T SH, LIPID, CMP, PSAD, T4 #### [facility] Laboratory [address] [place] [address] Wanda Anamaria EGFR-NON AF CITIZEN OF [place] >60 Normal >=60 [facility] Comment on above: Performed By: #### T SH, LIPID, CMP, PSAD, T4 #### [facility] [address] [place] [address] Wanda Anamaria Globulin (S) [Mass/Vol] 4.6 g/dL Normal [facility] Comment on above: Performed By: #### T SH, LIPID, CMP, PSAD, T4 #### [facility] [address] [place] [address] Wanda Anamaria Glucose [Mass/Vol] 129 mg/dL Critically high 74-[address] [facility] Comment on above: Performed By: #### T SH, LIPID, CMP, PSAD, T4 #### [facility] [address] [place], [place] [address] Wanda Anamaria Potassium [Moles/Vol] 4.1 mmol/L Normal 3.4-5.0 [facility] Comment on above: Performed By: #### T SH, LIPID, CMP, PSAD, T4 #### [facility] [address] [place], [place] [address] Wanda Anamaria Protein [Mass/Vol] 8.1 g/dL Normal 6.1-8.2 [facility] Comment on above: Performed By: #### T SH, LIPID, CMP, PSAD, T4 #### [facility] [address] [place], [place] [address] Wanda Anamaria Sodium [Moles/Vol] 138 mmol/L Normal 137-145 [facility] Comment on above: Performed By: #### T SH, LIPID, CMP, PSAD, T4 #### [facility] [address] [place], [place] [address] Wanda Anamaria Urea nitrogen [Mass/Vol] 34.0 mg/dL Critically high 9.0-20.0 [facility] Comment on above: Performed By: #### T SH, LIPID, CMP, PSAD, T4 #### [facility] [address] [place], [place] [address] Wanda Anamaria Urea nitrogen/Creatinine [Mass ratio] 31.5 mg/mg Normal [facility] Comment on above: Performed By: #### T SH, LIPID, CMP, PSAD, T4 #### [facility] [address] [place], [place] [address] Wanda Anamaria Encounters Encounter Date Encounter Type Care Provider Facility Start: 09-08-2023 End: 09-08-2023 ambulatory [facility] Start: 09-07-2023 End: 09-07-2023 ambulatory [facility] Start: 06-17-2023 Telephone encounter Kaveh rivera DO Work Phone: [facility] Comment on above: Refund Checks Start: 04-11-2023 End: 04-11-2023 ambulatory [facility] Not Available Start: 07-13-2021 End: 07-29-2021 ambulatory Devang Birch Facility:[facility] Start: 10-09-2020 Encounter for genera l adult medical examination without abnormal findings DR DEVANG BIRCH [facility] Start: 10-01-2020 End: 10-02-[address] [...] T SH, LIPID, CMP, PSAD, T4 #### [facility] [address] [place] [address] Wanda Conrad Payers Date Payer Category Payer Medicare [employer] [id number] 2021-Present [address] [place] [address] [id number] 2021 Self-pay 1965 Unknown [id number] 1964 Unknown [id number] 1964 Unknown [id number] 1964 Unknown [id number] 1964 Unknown [id number] 9 1964 Unknown [id number] 6 1964 Unknown [id number] 6 1959 Unknown [id number] Unknown Unknown [id number] Social History Date Type Detail Facility Start: [...] that he received two refund checks from [employer]. He deposited the checks and then was told from his bank that they bounced. If you could look into this for me please, all I am seeing is that the refunds were sent out. Call back # [phone] [facility] Note 06-17-2023 Telephone Encounter - [facility] July - 06/17/2023 9:18 AM EST Note Date & Type Note Facility 06-17-2023 Miscellaneous Notes Formattin g of this note might be different from the original. Sarah, patient called stated that he received two refund checks from [employer]. He deposited the checks and then was told from his bank that they bounced. If you could look into this for me please, all I am seeing is that the refunds were sent out. Call back # [phone] documented in this encounter [facility] Summary [...] DATE CREATED AUTHOR AUTHOR'S ORGANIZ ATION 07/03/2022 [facility] DATE CREATED AUTHOR AUTHOR'S ORGANIZ ATION 04/12/2023 [facility] EPIC DATE CREATED AUTHOR AUTHOR'S ORGANIZ ATION 09/08/2023 [facility] DATE CREATED AUTHOR AUTHOR'S ORGANIZ ATION 09/09/2023 [facility] Reason for Visit (unrecogniz ed section and content) Reason Onset Date Comments Refund Checks 06/17/2023 Care Teams (unrecognized sec tion and content) Public Service Director Relationship Specialty Start Date End Date Merritt Thacker MD [address] [place] [address] PCP - General Internal Medicine 03/28/23 FOR [...] BE BASED ON THE PRIMARY CLINICAL RECORDS. [employer] provides no warranty or guarantee of the accuracy or completeness of information in this document.
--- OUTSIDE RECORDS SUMMARY | 2023-12-16 10:42 | XMS_ITS | CCD ---
Author Organization [facility] Care Team Providers Care Kinesiology Internship Name Role Phone HOUSE, DR GLEZ Primary [...] Unavailable Merritt Thacker MD Primary Care Provider [phone] MERRITT THACKER Attending MERRITT Jackson Referring Unavailable MERRITT THACKER Primary Care Unavailable MERRITT THACKER Referring Unavailable MERRITT THACKER Primary Care Unavailable Allergies Allergy Classification Reported Allergen(s) Allergy Type Date of Onset Reaction(s) Facility Anti-Epileptic Agents (1 source) topiramate Drug Allergy 3 [facility] Repository (3 sources) topiramate; 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: [TOPIRAMATE] Drug Allergy 4 [facility] Repository (1 source) Topiramate Propensity to adverse reactions 3 [facility] Healthcare Medications Current Medications Medication Drug [...] disease (2 sources) Atherosclerotic heart disease of [place] coronary artery without angina pectoris; 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: [Old [...] 07-13-2021 Episodic Other aftercare (1 source) Other [facility] (current) drug therapy; 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: [OTH CORRECTION CURRENT DRUG THERAPY] Onset: 11-27-2019 Episodic Other aftercare (1 source) jail (current) use of anticoagulants; 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: [CORRECTION CURRNT USE ANTICOAGULANTS] Onset: 11-27-2019 Episodic Other [...] Interpretation Reference Range Facility COMPREHENSIVE METABOLIC PANE [facility] 09-07-2023 Albumin [Mass/Vol] 3.8 g/dL Normal 3.2-5.3 [facility] Comment on above: Performed By: #### 2 4331-1, CMP #### [facility] ([id number]) [address], [address] [place] [address] ALP [Catalytic activity/Vol] 101 U/L Normal 39-[address] [facility] Comment on above: Performed By: #### 2 4331-1, CMP #### [facility] ([id number]) [address], [address] [place] [address] ALT [Catalytic activity/Vol] 14 U/L Normal 0-[address] [facility] Comment on above: Performed By: #### 2 4331-1, CMP #### [facility] ([id number]) [address], [address] [place] [address] Anion gap [Moles/Vol] 8 mmol/L Normal 5-15 [facility] Comment on above: Performed By: #### 2 4331-1, CMP #### [facility] ([id number]) [address], [address] [place] [address] AST [Catalytic activity/Vol] 14 U/L Normal 0-[address] [facility] Comment on above: Performed By: #### 2 4331-1, CMP #### [facility] ([id number]) [address], [address] [place] [address] Bilirubin [Mass/Vol] 0.6 mg/dL Normal 0.3-1.2 [facility] Comment on above: Performed By: #### 2 4331-1, CMP #### [facility] ([id number]) [address], [address] [place] [address] Calcium [Mass/Vol] 8.8 mg/dL Normal 8.5-10.5 [facility] Comment on above: Performed By: #### 2 4331-1, CMP #### [facility] ([id number]) [address], [address] [place] [address] Chloride [Moles/Vol] 100 mmol/L Normal 98-109 [facility] Comment on above: Performed By: #### 2 4331-1, CMP #### [facility] ([id number]) [address], [address] [place] [address] CO2 [Moles/Vol] 31 mmol/L Normal 22-[address] [facility] Comment on above: Performed By: #### 2 4331-1, CMP #### [facility] ([id number]) [address], [address] [place] [address] Creatinine [Mass/Vol] 1.29 mg/dL Normal 0.60-1.30 [facility] Comment on above: Result Comment: METH OD TRACEABLE TO IDMS STANDARD Performed By: #### 2 4331-1, CMP #### [facility] ([id number]) [address], [address] [place] [address] GFR/1.73 sq M.predicted among non-blacks MDRD (S/P/Bld) [Vol rate/Area] 64 mL/min/{1.73_m2} Normal >[address] [facility] Comment on above: Result Comment: Reported eGFR is based on the CKD-EPI 2020 equation that does not use a race coefficient. Performed By: #### 2 4331-1, CMP #### [facility] ([id number]) [address], [address] [place] [address] Glucose [Mass/Vol] 119 mg/dL High 65-99 [facility] Comment on above: Performed By: #### 2 4331-1, CMP #### [facility] ([id number]) [address], [address] [place] [address] Potassium [Moles/Vol] 4.4 mmol/L Normal 3.5-5.0 [facility] Comment on above: Performed By: #### 2 4331-1, CMP #### [facility] ([id number]) [address], [address] [place] [address] Protein [Mass/Vol] 7.2 g/dL Normal 6.0-8.0 [facility] Comment on above: Performed By: #### 2 4331-1, CMP #### [facility] ([id number]) [address], [address] [place] [address] Sodium [Moles/Vol] 139 mmol/L Normal 134-146 [facility] Comment on above: Performed By: #### 2 4331-1, CMP #### [facility] ([id number]) [address], [address] [place] [address] Urea nitrogen [Mass/Vol] 21 mg/dL Normal 5-[address] [facility] Comment on above: Performed By: #### 2 4331-1, CMP #### [facility] ([id number]) [address], [address] [place] [address] HGB A1C (GLYCO-HGB)on 2023 Glucose [Mass/Vol] 134 mg/dL Normal [facility] Comment on above: Performed By: #### 2 4331-1, CMP #### [facility] ([id number]) [address], [address] [address] HbA1c (Bld) [Mass fraction] 6.3 % High 4.4-5.[address] [facility] Comment on above: Result Comment: NOTE ADA Guidelines Result HgbA1c Normal : less than 5.7 % Prediabetes : 5.7 % to 6.4 % Diabetes : > 6.4 % Use with caution in patients with abnormal hemoglobin variants as the half-life of red blood cells and in vivo glycation rates are affected. Performed By: #### 2 4331-1, CMP #### [facility] ([id number]) [address], [address] [place] [address] Lipid 1996 panelon 4 Cholesterol [Mass/Vol] 145 mg/dL Low 150-[address] [facility] Comment on above: Performed By: #### 2 4331-1, CMP #### [facility] ([id number]) [address], [address] [place] [address] Cholesterol in HDL [Mass/Vol] 30 mg/dL Low >[address] [facility] Comment on above: Result Comment: HDL <40 mg/dL - High Risk HDL > or = 40mg/dL- Desirable HDL >60 mg/dL - Negative Risk Performed By: #### 2 4331-1, CMP #### [facility] ([id number]) [address], [address] [place] [address] Cholesterol in LDL [Mass/Vol] 90 mg/dL Normal <[address] [facility] Comment on above: Result Comment: LDL <100 mg/dL - Desirable LDL >160 mg/dL - High Risk Performed By: #### 2 4331-1, CMP #### [facility] ([id number]) [address] [address] [place] [address] Cholesterol in VLDL [Mass/Vol] 25 mg/dL Normal 0-[address] [facility] Comment on above: Performed By: #### 2 4331-1, CMP #### [facility] ([id number]) [address], [facility] [address] [place] [address] CHOLESTEROL:HDL 4.8 Normal 1.0-5.[address] [facility] Comment on above: Performed By: #### 2 4331-1, CMP #### [facility] ([id number]) [address], [address] [place] [address] Triglyceride [Mass/Vol] 123 mg/dL Normal 27-[address] [facility] Comment on above: Performed By: #### 2 4331-1, CMP #### [facility] ([id number]) [address], [address] [address] CBC AUTO DIFFon 10-01-2020 BASO # 0.1 103/ul Normal 0.0-0.1 [facility] Comment on above: Performed By: #### T SH, LIPID, CMP, PSAD, T4 #### [facility] [address] [place], [place] [address] Wanda Anamaria Basophils/100 WBC (Bld) 0.8 % Normal 0.2-2.0 [facility] Comment on above: Performed By: #### T SH, LIPID, CMP, PSAD, T4 #### [facility] [address] [place], [place] [address] Wanda Anamaria EO # 0.3 103/ul Normal 0.0-0.7 [facility] Comment on above: Performed By: #### T SH, LIPID, CMP, PSAD, T4 #### [facility] [address] [place] [address] Wanda Conrad Eosinophils/100 WBC (Bld) 3.5 % Normal 0.9-7.0 [facility] Comment on above: Performed By: #### T SH, LIPID, CMP, PSAD, T4 #### [facility] [address] [place] [address] Wanda Conrad Erythrocyte distribution width (RBC) [Ratio] 15.2 % Critically high 11.0-15.0 [facility] Comment on above: Performed By: #### T SH, LIPID, CMP, PSAD, T4 #### [facility] [address] [place] [address] aWnda Conrad Hematocrit (Bld) [Volume fraction] 42.3 % Normal 42.0-54.0 [facility] Comment on above: Performed By: #### T SH, LIPID, CMP, PSAD, T4 #### [facility] [address] [place] [address] Wanda Conrad Hemoglobin (Bld) [Mass/Vol] 13.3 g/dL Critically low 14.0-18.0 [facility] Comment on above: Performed By: #### T SH, LIPID, CMP, PSAD, T4 #### [facility] [address] [place] [address] Wanda Conrad IG # 0.04 10e3/ul Critically high 0.00-0.03 [facility] Comment on above: Performed By: #### T SH, LIPID, CMP, PSAD, T4 #### [facility] [address] [place] [address] Wandavanda Conrad IG % 0.4 % Normal 0.0-0.5 [facility] Comment on above: Performed By: #### T SH, LIPID, CMP, PSAD, T4 #### [facility] [address] [place] [address] Wanda Anamaria LYMPH # 2.8 103/ul Normal 1.2-3.8 [facility] Comment on above: Performed By: #### T SH, LIPID, CMP, PSAD, T4 #### [facility] [address] [place] [address] Wanda Conrad Lymphocytes/100 WBC (Bld) 30.2 % Normal 20.5-60.0 [facility] Comment on above: Performed By: #### T SH, LIPID, CMP, PSAD, T4 #### [facility] [address] [place] [address] Wandavanda Conrad MANUAL DIFF REQ NO Normal [facility] Comment on above: Performed By: #### T SH, LIPID, CMP, PSAD, T4 #### [facility] [address] [place] [address] Wanda Conrad MCH (RBC) [Entitic mass] 26.4 pg Normal 25.9-34.0 [facility] Comment on above: Performed By: #### T SH, LIPID, CMP, PSAD, T4 #### [facility] [address] [place] [address] Wandavanda Conrad MCHC (RBC) [Mass/Vol] 31.4 g/dL Normal 29.9-35.2 [facility] Comment on above: Performed By: #### T SH, LIPID, CMP, PSAD, T4 #### [facility] [address] [place] [address] Wanda Conrad MCV (RBC) [Entitic vol] 83.9 fL Normal 80.0-94.0 [facility] Comment on above: Performed By: #### T SH, LIPID, CMP, PSAD, T4 #### [facility] [address] [place] [address] Wandavanda Antoineen MONO # 0.6 103/ul Normal 0.3-0.8 [facility] Comment on above: Performed By: #### T SH, LIPID, CMP, PSAD, T4 #### [facility] [address] [place] [address] Wandavanda Conrad Monocytes/100 WBC (Bld) 6.2 % Normal 1.7-12.0 [facility] Comment on above: Performed By: #### T SH, LIPID, CMP, PSAD, T4 #### [facility] [address] [place], [place] [address] Wanda Conrad NEUT # 5.4 103/ul Normal 1.4-6.5 [facility] Comment on above: Performed By: #### T SH, LIPID, CMP, PSAD, T4 #### [facility] [address] [place], [place] [address] Wanda Conrad Neutrophils/100 WBC (Bld) 58.9 % Normal 43.0-75.0 [facility] Comment on above: Performed By: #### T SH, LIPID, CMP, PSAD, T4 #### [facility] [address] [place], [place] [address] Wanda Conrad Platelet mean volume (Bld) [Entitic vol] 10.5 fL Normal 9.5-13.5 [facility] Comment on above: Performed By: #### T SH, LIPID, CMP, PSAD, T4 #### [facility] [address] [place] [id number] Wanda Conrad PLT 252 103/ul Normal 150-450 [facility] Comment on above: Performed By: #### T SH, LIPID, CMP, PSAD, T4 #### [facility] [address] [place], [place] [address] Wanda Conrad RBC 5.04 106/ul Normal 4.70-6.10 [facility] Comment on above: Performed By: #### T SH, LIPID, CMP, PSAD, T4 #### [facility] [address] [place], [place] [address] Wanda Conrad WBC 9.1 103/ul Normal 4.0-11.0 [facility] Comment on above: Performed By: #### T SH, LIPID, CMP, PSAD, T4 #### [facility] [address] [place], [place] [address] Wanda Conrad LIPID PROFILEon 10-01-2020 CHOL-HDL RATIO NORM SEE BELOW Normal [facility] Comment on above: Result Comment: 3.3 - 4.4 LOW RISK 4.4 - 7.1 AVERAGE RISK 7.1 - 11.0 MODERATE RISK >11.0 HIGH RISK Performed By: #### T SH, LIPID, CMP, PSAD, T4 #### [facility] [address] [place], [place] [address] Wanda Anamaria Cholesterol [Mass/Vol] 137 mg/dL Normal <=200 [facility] Comment on above: Performed By: #### T SH, LIPID, CMP, PSAD, T4 #### [facility] [address] [place], [place] [address] Wanda Anamaria Cholesterol in HDL [Mass/Vol] 31 mg/dL Normal [facility] Comment on above: Performed By: #### T SH, LIPID, CMP, PSAD, T4 #### [facility] [address] [place], [place] [address] Wanda Anamaria Cholesterol in LDL [Mass/Vol] 81.8 mg/dL Normal [facility] Comment on above: Performed By: #### T SH, LIPID, CMP, PSAD, T4 #### [facility] [address] [place], [place] [address] Wanda Anamaria Cholesterol.total/Cho lesterol in HDL [Mass ratio] 4.4 {ratio} Normal [facility] Comment on above: Performed By: #### T SH, LIPID, CMP, PSAD, T4 #### [facility] [address] [place], [place] [address] Wanda Anamaria HDL NORMAL > or = 60 mg/dl - LOW CARDIOVASCULAR RISK <40 mg/dl - HIGH CARDIOVASCULAR RISK Normal [facility] Comment on above: Performed By: #### T SH, LIPID, CMP, PSAD, T4 #### [facility] [address] [place] [id number] Wanda Anamaria LDL CALC NORMAL SEE BELOW Normal [facility] Comment on above: Result Comment: <100 mg/dl OPTIMAL 100 - 129 mg/dl NEAR OR ABOVE OPTIMAL 130 - 159 mg/dl BORDERLINE HIGH 160 - 189 mg/dl HIGH >190 mg/dl VERY HIGH Performed By: #### T SH, LIPID, CMP, PSAD, T4 #### [facility] [address] [place] [id number] Wanda Anamaria Triglyceride [Mass/Vol] 121 mg/dL Normal <=150 [facility] Comment on above: Performed By: #### T SH, LIPID, CMP, PSAD, T4 #### [facility] [address] [place] [address] Wanda Conrad VLDL CALC 24.2 mg/dL Normal [facility] Comment on above: Performed By: #### T SH, LIPID, CMP, PSAD, T4 #### [facility] [address] [place] [address] Wandavanda Conrad PROF 14(COMP METB)on 021 Albumin [Mass/Vol] 3.3 g/dL Critically low 3.5-5.0 [facility] Comment on above: Performed By: #### T SH, LIPID, CMP, PSAD, T4 #### [facility] [address] [place] [address] Wanda Conrad Albumin/Globulin [Mass ratio] 0.7 {ratio} Normal [facility] Comment on above: Performed By: #### T SH, LIPID, CMP, PSAD, T4 #### [facility] [address] [place] [address] Wanda Conrad ALP [Catalytic activity/Vol] 113 U/L Normal 38-126 [facility] Comment on above: Performed By: #### T SH, LIPID, CMP, PSAD, T4 #### [facility] [address] [place] [address] Wanda Conrad ALT [Catalytic activity/Vol] 25 U/L Normal 21-72 [facility] Comment on above: Performed By: #### T SH, LIPID, CMP, PSAD, T4 #### [facility] [address] [place] [address] Wanda Conrad Anion gap [Moles/Vol] 12.4 mmol/L Normal [facility] Comment on above: Performed By: #### T SH, LIPID, CMP, PSAD, T4 #### [facility] [address] [place] [address] Wanda Conrad AST [Catalytic activity/Vol] 16 U/L Critically low 17-59 [facility] Comment on above: Performed By: #### T SH, LIPID, CMP, PSAD, T4 #### [facility] [address] [place] [address] Wanda Anamaria Bilirubin [Mass/Vol] 0.4 mg/dL Normal 0.2-1.3 [facility] Comment on above: Performed By: #### T SH, LIPID, CMP, PSAD, T4 #### [facility] [address] [place] [address] Wanda Anamaria Calcium [Mass/Vol] 8.8 mg/dL Normal 8.4-10.2 [facility] [place] [facility] Comment on above: Performed By: #### T SH, LIPID, CMP, PSAD, T4 #### [facility] [address] [place] [address] Wanda Anamaria Chloride [Moles/Vol] 102 mmol/L Normal 98-107 [facility] Comment on above: Performed By: #### T SH, LIPID, CMP, PSAD, T4 #### [facility] [address] [place] [address] Wanda Anamaria CO2 [Moles/Vol] 30.0 mmol/L Normal 22.0-30.0 [facility] Comment on above: Performed By: #### T SH, LIPID, CMP, PSAD, T4 #### [facility] [address] [place] [address] Wanda Anamaria Creatinine [Mass/Vol] 1.29 mg/dL Critically high 0.66-1.25 [facility] Comment on above: Performed By: #### T SH, LIPID, CMP, PSAD, T4 #### [facility] [address] [place] [address] Wadna Anamaria EGFR-AF MALAWIAN >60 Normal >=60 [facility] Comment on above: Performed By: #### T SH, LIPID, CMP, PSAD, T4 #### [facility] [address] [place] [address] Wanda Anamaria EGFR-NON AF MALAWIAN 58 mL/min/1.73m2 Critically low >=60 [facility] Comment on above: Performed By: #### T SH, LIPID, CMP, PSAD, T4 #### [facility] [address] [place] [address] Wanda Anamaria Globulin (S) [Mass/Vol] 4.5 g/dL Normal [facility] Comment on above: Performed By: #### T SH, LIPID, CMP, PSAD, T4 #### [facility] [address] [place] [address] Wanda Anamaria Glucose [Mass/Vol] 153 mg/dL Critically high 74-106 [facility] Comment on above: Performed By: #### T SH, LIPID, CMP, PSAD, T4 #### [facility] [address] [place] [address] Wanda Anamaria Potassium [Moles/Vol] 4.4 mmol/L Normal 3.4-5.0 [facility] Comment on above: Performed By: #### T SH, LIPID, CMP, PSAD, T4 #### [facility] [address] [place] [address] Wanda Anamaria Protein [Mass/Vol] 7.8 g/dL Normal 6.1-8.2 [facility] Comment on above: Performed By: #### T SH, LIPID, CMP, PSAD, T4 #### [facility] [address] [place] [address] Wanda Anamaria Sodium [Moles/Vol] 140 mmol/L Normal 137-145 [facility] Comment on above: Performed By: #### T SH, LIPID, CMP, PSAD, T4 #### [facility] [address] [place] [address] Wanda Anamaria Urea nitrogen [Mass/Vol] 28.0 mg/dL Critically high 9.0-20.0 [facility] Comment on above: Performed By: #### T SH, LIPID, CMP, PSAD, T4 #### [facility] [address] [place] [address] Wanda Anamaria Urea nitrogen/Creatinine [Mass ratio] 21.7 mg/mg Normal [facility] Comment on above: Performed By: #### T SH, LIPID, CMP, PSAD, T4 #### [facility] [address] [place] [address] Wanda Anamaria T4on 10-01-2020 T4 [Mass/Vol] 5.90 ug/dL Normal 5.53-11.00 [facility] Comment on above: Performed By: #### T SH, LIPID, CMP, PSAD, T4 #### [facility] [address] [place] [address] Wanda Conrad TSHon 10-01-2020 TSH 2.487 uIU/mL Normal 0.470-4.680 [facility] Comment on above: Performed By: #### T SH, LIPID, CMP, PSAD, T4 #### [facility] [address] [place] [address] Wanda Conrad TSH RANGE SEE BELOW Normal [facility] Comment on above: Result Comment: <0.3 4 UIU/ml HYPERTHYROID 0.34-5.60 UIU/ml EUTHYROID >5.60 UIU/ml HYPOTHYROID Performed By: #### T SH, LIPID, CMP, PSAD, T4 #### [facility] [address] [place] [address] Wanda Conrad XR LSPINE MIN 4 VIEWSon [...] EFRA HERBERT Date: 2020-04-04 15:05 Normal [facility] ACETAMINOPHENon 11-25-2019 Acetaminophen [Mass/Vol] ug/mL Critically low 10.1-30.0 [facility] Comment on above: Performed By: #### A CET #### [facility] [address] [place] [address] Wanda Conrad AMMONIAon 11-25-2019 Ammonia (P) [Moles/Vol] 7 umol/L Critically low 10-30 [facility] Comment on above: Performed By: #### A MM #### [facility] [address] [place] [address] Wanda Conrad CBC AUTO DIFFon 11-25-2019 BASO # 0.0 103/ul Normal 0.0-0.1 [facility] Comment on above: Performed By: #### T SH, LIPID, CMP, PSAD, T4 #### [facility] [address] [place] [address] Wanda Conrad Basophils/100 WBC (Bld) 0.4 % Normal 0.2-2.0 [facility] Comment on above: Performed By: #### T SH, LIPID, CMP, PSAD, T4 #### [facility] [address] [place] [address] Wandavanda Conrad EO # 0.2 103/ul Normal 0.0-0.7 [facility] Comment on above: Performed By: #### T SH, LIPID, CMP, PSAD, T4 #### [facility] [address] [place] [address] Wanda Conrad Eosinophils/100 WBC (Bld) 1.8 % Normal 0.9-7.0 [facility] Comment on above: Performed By: #### T SH, LIPID, CMP, PSAD, T4 #### [facility] [address] [place] [address] Wandavanda Conrad Erythrocyte distribution width (RBC) [Ratio] 14.1 % Normal 11.0-15.0 [facility] Comment on above: Performed By: #### T SH, LIPID, CMP, PSAD, T4 #### [facility] [address] [place] [address] Wanda Conrad Hematocrit (Bld) [Volume fraction] 41.2 % Critically low 42.0-54.0 [facility] Comment on above: Performed By: #### T SH, LIPID, CMP, PSAD, T4 #### [facility] [address] [place] [address] Wandavanda Conrad Hemoglobin (Bld) [Mass/Vol] 13.3 g/dL Critically low 14.0-18.0 [facility] Comment on above: Performed By: #### T SH, LIPID, CMP, PSAD, T4 #### [facility] [address] [place] [address] Wanda Anamaria IG # 0.05 10e3/ul Critically high 0.00-0.03 [facility] Comment on above: Performed By: #### T SH, LIPID, CMP, PSAD, T4 #### [facility] [address] [place] [address] Wanda Anamaria IG % 0.5 % Normal 0.0-0.5 [facility] Comment on above: Performed By: #### T SH, LIPID, CMP, PSAD, T4 #### [facility] [address] [place] [address] Wanda Anamaria LYMPH # 2.3 103/ul Normal 1.2-3.8 [facility] Comment on above: Performed By: #### T SH, LIPID, CMP, PSAD, T4 #### [facility] [address] [place] [address] Wanda Conrad Lymphocytes/100 WBC (Bld) 21.1 % Normal 20.5-60.0 [facility] Comment on above: Performed By: #### T SH, LIPID, CMP, PSAD, T4 #### [facility] [address] [place] [address] Wanda Conrad MANUAL DIFF REQ NO Normal [facility] Comment on above: Performed By: #### T SH, LIPID, CMP, PSAD, T4 #### [facility] [address] [place] [address] Wanda Conrad MCH (RBC) [Entitic mass] 26.1 pg Normal 25.9-34.0 [facility] Comment on above: Performed By: #### T SH, LIPID, CMP, PSAD, T4 #### [facility] [address] [place] [address] Wanda Conrad MCHC (RBC) [Mass/Vol] 32.3 g/dL Normal 29.9-35.2 [facility] Comment on above: Performed By: #### T SH, LIPID, CMP, PSAD, T4 #### [facility] [address] [address] Wanda Conrad MCV (RBC) [Entitic vol] 80.9 fL Normal 80.0-94.0 [facility] Comment on above: Performed By: #### T SH, LIPID, CMP, PSAD, T4 #### [facility] [address] [place] [address] Wanda Conrad MONO # 0.5 103/ul Normal 0.3-0.8 [facility] Comment on above: Performed By: #### T SH, LIPID, CMP, PSAD, T4 #### [facility] [address] [place] [address] Wanda Conrad Monocytes/100 WBC (Bld) 4.8 % Normal 1.7-12.0 [facility] Comment on above: Performed By: #### T SH, LIPID, CMP, PSAD, T4 #### [facility] [address] [place] [address] Wanda Conrad NEUT # 7.8 103/ul Critically high 1.4-6.5 [facility] Comment on above: Performed By: #### T SH, LIPID, CMP, PSAD, T4 #### [facility] [address] [place] [address] Wanda Conrad Neutrophils/100 WBC (Bld) 71.4 % Normal 43.0-75.0 [facility] Comment on above: Performed By: #### T SH, LIPID, CMP, PSAD, T4 #### [facility] [address] [place], [place] [id number] Wanda Conrad Platelet mean volume (Bld) [Entitic vol] 9.6 fL Normal 9.5-13.5 [facility] Comment on above: Performed By: #### T SH, LIPID, CMP, PSAD, T4 #### [facility] [address] [place] [address] Wanda Conrad PLT 287 103/ul Normal 150-450 [facility] Comment on above: Performed By: #### T SH, LIPID, CMP, PSAD, T4 #### [facility] [address] [place] [address] Wanda Conrad RBC 5.09 106/ul Normal 4.70-6.10 [facility] Comment on above: Performed By: #### T SH, LIPID, CMP, PSAD, T4 #### [facility] [address] [place], [place] [address] Wanda Conrad WBC 10.8 103/ul Normal 4.0-11.0 [facility] Comment on above: Performed By: #### T SH, LIPID, CMP, PSAD, T4 #### [facility] [address] [place], [place] [address] HEAD WO CONon 11-25-2019 [...] EFRA MARRERO Date: 2019-11-25 01:49 Normal [facility] ETHANOL (BLD ALC)on 11-25-19 20 ALC NOTE NOTE: 80 mg/dl is the legal limit for a blood alcohol level Normal [facility] Comment on above: Performed By: #### T SH, LIPID, CMP, PSAD, T4 #### [facility] [address] [place], [place] [address] Wanda Conrad Ethanol [Mass/Vol] 205 mg/dL Normal [facility] Comment on above: Performed By: #### T SH, LIPID, CMP, PSAD, T4 #### [facility] [address] [id number] Wandavanda Conrad PROF 14(COMP METB)on 020 Albumin [Mass/Vol] 3.2 g/dL Critically low 3.5-5.0 [facility] Comment on above: Performed By: #### T SH, LIPID, CMP, PSAD, T4 #### [facility] [address] [place], [place] [address] Wanda Anamaria Albumin/Globulin [Mass ratio] 0.8 {ratio} Normal [facility] Comment on above: Performed By: #### T SH, LIPID, CMP, PSAD, T4 #### [facility] [address] [address] Wanda Anamaria ALP [Catalytic activity/Vol] 111 U/L Normal 38-126 [facility] Comment on above: Performed By: #### T SH, LIPID, CMP, PSAD, T4 #### [facility] [address] [place] [address] Wanda Anamaria ALT [Catalytic activity/Vol] 23 U/L Normal 21-72 [facility] Comment on above: Performed By: #### T SH, LIPID, CMP, PSAD, T4 #### [facility] [address] [place] [address] Wanda Anamaria Anion gap [Moles/Vol] 16.5 mmol/L Normal Th [facility] Comment on above: Performed By: #### T SH, LIPID, CMP, PSAD, T4 #### [facility] [address] [place] [address] Wanda Anamaria AST [Catalytic activity/Vol] 15 U/L Critically low 17-59 [facility] Comment on above: Performed By: #### T SH, LIPID, CMP, PSAD, T4 #### [facility] [address] [place] [address] Wanda Anamaria Bilirubin [Mass/Vol] 0.3 mg/dL Normal 0.2-1.3 [facility] Comment on above: Performed By: #### T SH, LIPID, CMP, PSAD, T4 #### [facility] [address] [place] [address] Wanda Anamaria Calcium [Mass/Vol] 8.2 mg/dL Critically low 8.4-10.2 [facility] Comment on above: Performed By: #### T SH, LIPID, CMP, PSAD, T4 #### [facility] [address] [place] [address] Wanda Anamaria Chloride [Moles/Vol] 98 mmol/L Normal 98-107 [facility] Comment on above: Performed By: #### T SH, LIPID, CMP, PSAD, T4 #### [facility] [address] [place] [address] Wanda Anamaria CO2 [Moles/Vol] 23.2 mmol/L Normal 22.0-30.0 [facility] Comment on above: Performed By: #### T SH, LIPID, CMP, PSAD, T4 #### [facility] [address] [place] [address] Wanda Anamaria Creatinine [Mass/Vol] 0.91 mg/dL Normal 0.66-1.25 [facility] Comment on above: Performed By: #### T SH, LIPID, CMP, PSAD, T4 #### [facility] [address] [place] [address] Wanda Anamaria EGFR-AF MALAWIAN >60 Normal >=60 [facility] Comment on above: Performed By: #### T SH, LIPID, CMP, PSAD, T4 #### [facility] [address] [place] [address] Wanda Anamaria EGFR-NON AF MALAWIAN >60 Normal >=60 [facility] Comment on above: Performed By: #### T SH, LIPID, CMP, PSAD, T4 #### [facility] [address] [place] [address] Wanda Anamaria Globulin (S) [Mass/Vol] 4.1 g/dL Normal [facility] Comment on above: Performed By: #### T SH, LIPID, CMP, PSAD, T4 #### [facility] [address] [place] [address] Wanda Anamaria Glucose [Mass/Vol] 231 mg/dL Critically high 74-106 [facility] Comment on above: Performed By: #### T SH, LIPID, CMP, PSAD, T4 #### [facility] [address] [place] [address] Wanda Anamaria Potassium [Moles/Vol] 3.7 mmol/L Normal 3.4-5.0 [facility] Comment on above: Performed By: #### T SH, LIPID, CMP, PSAD, T4 #### [facility] [address] [address] Wanda Anamaria Protein [Mass/Vol] 7.3 g/dL Normal 6.1-8.2 [facility] Comment on above: Performed By: #### T SH, LIPID, CMP, PSAD, T4 #### [facility] [address] [place] [address] Wanda Anamaria Sodium [Moles/Vol] 134 mmol/L Critically low 137-145 Th [facility] Comment on above: Performed By: #### T SH, LIPID, CMP, PSAD, T4 #### [facility] [address] [place] [address] Wanda Anamaria Urea nitrogen [Mass/Vol] 22.0 mg/dL Critically high 9.0-20.0 [facility] Comment on above: Performed By: #### T SH, LIPID, CMP, PSAD, T4 #### [facility] [address] [place] [address] Wandavanda Conrad Urea nitrogen/Creatinine [Mass ratio] 24.2 mg/mg Normal [facility] Comment on above: Performed By: #### T SH, LIPID, CMP, PSAD, T4 #### [facility] [address] [place] [address] Wanda Conrad SALICYLATEon 11-25-2019 SALICYLATE 1.3 mg/dL Normal <=20.0 [facility] Comment on above: Performed By: #### T SH, LIPID, CMP, PSAD, T4 #### [facility] [address] [place], [place] [address] Wanda Anamaria XR CHEST 1 Von 11-25-2019 [...] EFRA MARRERO Date: 2019-11-25 01:51 Normal [facility] XR PELVIS 1_2 VIEWSon 2019 XR PELVIS [...] EFRA MARRERO Date: 2019-11-25 01:52 Normal [facility] CBC AUTO DIFFon 10-18-2019 BASO # 0.1 103/ul Normal 0.0-0.1 [facility] Comment on above: Performed By: #### C BC #### [facility] [address] [place], [place] [address] Wanda Anamaria Basophils/100 WBC (Bld) 0.6 % Normal 0.2-2.0 [facility] Comment on above: Performed By: #### C BC #### [facility] [address] [place], [place] [address] Wanda Anamaria EO # 0.2 103/ul Normal 0.0-0.7 [facility] Comment on above: Performed By: #### C BC #### [facility] [address] [place], [place] [address] Wanda Anamaria Eosinophils/100 WBC (Bld) 1.7 % Normal 0.9-7.0 [facility] Comment on above: Performed By: #### C BC #### [facility] [address] [place], [place] [address] Wanda Anamaria Erythrocyte distribution width (RBC) [Ratio] 14.4 % Normal 11.0-15.0 [facility] Comment on above: Performed By: #### C BC #### [facility] [address] [place] [address] Wanda Anamaria Hematocrit (Bld) [Volume fraction] 44.2 % Normal 42.0-54.0 [facility] Comment on above: Performed By: #### C BC #### [facility] [address] [id number] Wanda Anamaria Hemoglobin (Bld) [Mass/Vol] 13.9 g/dL Critically low 14.0-18.0 [facility] Comment on above: Performed By: #### C BC #### [facility] [address] [address] Wanda Anamaria IG # 0.04 10e3/ul Critically high 0.00-0.03 [facility] Comment on above: Performed By: #### C BC #### [facility] [address] [address] Wanda Anamaria IG % 0.4 % Normal 0.0-0.5 [facility] Comment on above: Performed By: #### C BC #### [facility] [address] [place] [address] Wanda Anamaria LYMPH # 2.8 103/ul Normal 1.2-3.8 [facility] Comment on above: Performed By: #### C BC #### [facility] [address] [place], [place] [address] Wanda Anamaria Lymphocytes/100 WBC (Bld) 28.2 % Normal 20.5-60.0 [facility] Comment on above: Performed By: #### C BC #### [facility] [address] [place], [place] [address] Wanda Anamaria MANUAL DIFF REQ NO Normal [facility] Comment on above: Performed By: #### C BC #### [facility] [address] [place], [place] [address] Wanda Anamaria MCH (RBC) [Entitic mass] 25.9 pg Normal 25.9-34.0 [facility] Comment on above: Performed By: #### C BC #### [facility] [address] [place], [place] [address] Wanda Anamaria MCHC (RBC) [Mass/Vol] 31.4 g/dL Normal 29.9-35.2 [facility] Comment on above: Performed By: #### C BC #### [facility] [address] [place], [place] [address] Wanda Anamaria MCV (RBC) [Entitic vol] 82.3 fL Normal 80.0-94.0 [facility] Comment on above: Performed By: #### C BC #### [facility] [address] [address] Wandavanda Antoineen MONO # 0.5 103/ul Normal 0.3-0.8 [facility] Comment on above: Performed By: #### C BC #### [facility] [address] [address] Wanda Anamaria Monocytes/100 WBC (Bld) 5.2 % Normal 1.7-12.0 [facility] Comment on above: Performed By: #### C BC #### [facility] [address] [place] [address] Wanda Anamaria NEUT # 6.4 103/ul Normal 1.4-6.5 [facility] Comment on above: Performed By: #### C BC #### [facility] [address] [place], [place] [address] Wanda Anamaria Neutrophils/100 WBC (Bld) 63.9 % Normal 43.0-75.0 [facility] Comment on above: Performed By: #### C BC #### [facility] [address] [place], [place] [address] Wandavanda Conrad Platelet mean volume (Bld) [Entitic vol] 10.5 fL Normal 9.5-13.5 [facility] Comment on above: Performed By: #### C BC #### [facility] [address] [place], [place] [address] Wanda Anamaria PLT 281 103/ul Normal 150-450 [facility] Comment on above: Performed By: #### C BC #### [facility] [address] [place], [place] [address] Wanda Anamaria RBC 5.37 106/ul Normal 4.70-6.10 [facility] Comment on above: Performed By: #### C BC #### [facility] [address] [place], [place] [address] Wanda Anamaria WBC 10.0 103/ul Normal 4.0-11.0 [facility] Comment on above: Performed By: #### C BC #### [facility] [address] [address] Wanda Anamaria GLYCOHEMOGLOBIN A1Con 2019 Glucose [Mass/Vol] 163 mg/dL Normal [facility] Comment on above: Performed By: #### T SH, LIPID, CMP, PSAD, T4 #### [facility] [address] [address] Wanda Anamaria HbA1c (Bld) [Mass fraction] 7.3 % Critically high <=6.0 [facility] Comment on above: Performed By: #### T SH, LIPID, CMP, PSAD, T4 #### [facility] [address] [place] [address] Wanda Anamaria LIPID PROFILEon 10-18-2019 CHOL-HDL RATIO NORM SEE BELOW Normal [facility] Comment on above: Result Comment: 3.3 - 4.4 LOW RISK 4.4 - 7.1 AVERAGE RISK 7.1 - 11.0 MODERATE RISK >11.0 HIGH RISK Performed By: #### T SH, LIPID, CMP, PSAD, T4 #### [facility] [address] [place], [place] [address] Wanda Anamaria Cholesterol [Mass/Vol] 130 mg/dL Normal <=200 [facility] Comment on above: Performed By: #### T SH, LIPID, CMP, PSAD, T4 #### [facility] [address] [place], [place] [address] Wanda Anamaria Cholesterol in HDL [Mass/Vol] 32 mg/dL Normal [facility] Comment on above: Performed By: #### T SH, LIPID, CMP, PSAD, T4 #### [facility] [address] [address] Wanda Anamaria Cholesterol in LDL [Mass/Vol] 76.6 mg/dL Normal [facility] Comment on above: Performed By: #### T SH, LIPID, CMP, PSAD, T4 #### [facility] [address] [place], [place] [address] Wanda Anamaria Cholesterol.total/Cho lesterol in HDL [Mass ratio] 4.1 {ratio} Normal [facility] Comment on above: Performed By: #### T SH, LIPID, CMP, PSAD, T4 #### [facility] [address] [address] Wanda Anamaria HDL NORMAL > or = 60 mg/dl - LOW CARDIOVASCULAR RISK <40 mg/dl - HIGH CARDIOVASCULAR RISK Normal [facility] Comment on above: Performed By: #### T SH, LIPID, CMP, PSAD, T4 #### [facility] [address] [address] Wandavanda Conrad LDL CALC NORMAL SEE BELOW Normal [facility] Comment on above: Result Comment: <100 mg/dl OPTIMAL 100 - 129 mg/dl NEAR OR ABOVE OPTIMAL 130 - 159 mg/dl BORDERLINE HIGH 160 - 189 mg/dl HIGH >190 mg/dl VERY HIGH Performed By: #### T SH, LIPID, CMP, PSAD, T4 #### [facility] [address] [address] Wanda Anamaria Triglyceride [Mass/Vol] 107 mg/dL Normal <=150 [facility] Comment on above: Performed By: #### T SH, LIPID, CMP, PSAD, T4 #### [facility] [address] [address] Wandavanda Conrad VLDL CALC 21.4 mg/dL Normal [facility] Comment on above: Performed By: #### T SH, LIPID, CMP, PSAD, T4 #### [facility] [address] [address] Wandavanda Conrad MICROALBUMIN, RAND URon 09-28 mALB <1.3 Normal <=30.0 [facility] Comment on above: Performed By: #### M ALBR #### [facility] [address] [place], [place] [address] Wandavanda Conrad mALBH PLEASE NOTE: NORMAL RANGE CHANGE, TESTING PERFORMED AT [facility]. Normal [facility] Comment on above: Performed By: #### M ALBR #### [facility] [address] [place], [place] [address] Wanda Conrad PROF 14(COMP METB)on 020 Albumin [Mass/Vol] 3.5 g/dL Normal 3.5-5.0 [facility] Comment on above: Performed By: #### T SH, LIPID, CMP, PSAD, T4 #### [facility] [address] [place], [place] [address] Wanda Anamaria Albumin/Globulin [Mass ratio] 0.8 {ratio} Normal [facility] Comment on above: Performed By: #### T SH, LIPID, CMP, PSAD, T4 #### [facility] [address] [place], [place] [address] Wanda Anamaria ALP [Catalytic activity/Vol] 103 U/L Normal 38-126 [facility] Comment on above: Performed By: #### T SH, LIPID, CMP, PSAD, T4 #### [facility] [address] [place] [address] Wanda Anamaria ALT [Catalytic activity/Vol] 21 U/L Normal 21-72 [facility] Comment on above: Performed By: #### T SH, LIPID, CMP, PSAD, T4 #### [facility] [address] [place] [address] Wanda Anamaria Anion gap [Moles/Vol] 13.9 mmol/L Normal [facility] Comment on above: Performed By: #### T SH, LIPID, CMP, PSAD, T4 #### [facility] [address] [place], [place] [address] Wanda Anamaria AST [Catalytic activity/Vol] 18 U/L Normal 17-59 [facility] Comment on above: Performed By: #### T SH, LIPID, CMP, PSAD, T4 #### [facility] [address] [place], [place] [address] Wanda Anamaria Bilirubin [Mass/Vol] 0.5 mg/dL Normal 0.2-1.3 [facility] Comment on above: Performed By: #### T SH, LIPID, CMP, PSAD, T4 #### [facility] [address] [place], [place] [address] Wanda Anamaria Calcium [Mass/Vol] 8.9 mg/dL Normal 8.4-10.2 [facility] Comment on above: Performed By: #### T SH, LIPID, CMP, PSAD, T4 #### [facility] [address] [place] [address] Wanda Anamaria Chloride [Moles/Vol] 100 mmol/L Normal 98-107 [facility] Comment on above: Performed By: #### T SH, LIPID, CMP, PSAD, T4 #### [facility] [address] [place] [address] Wanda Anamaria CO2 [Moles/Vol] 28.2 mmol/L Normal 22.0-30.0 [facility] Comment on above: Performed By: #### T SH, LIPID, CMP, PSAD, T4 #### [facility] [address] [place] [address] Wanda Anamaria Creatinine [Mass/Vol] 1.08 mg/dL Normal 0.66-1.25 [facility] Comment on above: Performed By: #### T SH, LIPID, CMP, PSAD, T4 #### [facility] [address] [place] [address] Wanda Anamaria EGFR-AF MALAWIAN >60 Normal >=60 [facility] Comment on above: Performed By: #### T SH, LIPID, CMP, PSAD, T4 #### [facility] [address] [place] [address] Wanda Anamaria EGFR-NON AF MALAWIAN >60 Normal >=60 [facility] Comment on above: Performed By: #### T SH, LIPID, CMP, PSAD, T4 #### [facility] [address] [place] [address] Wanda Anamaria Globulin (S) [Mass/Vol] 4.6 g/dL Normal [facility] Comment on above: Performed By: #### T SH, LIPID, CMP, PSAD, T4 #### [facility] [address] [place] [address] Wanda Anamaria Glucose [Mass/Vol] 129 mg/dL Critically high 74-106 [facility] Comment on above: Performed By: #### T SH, LIPID, CMP, PSAD, T4 #### [facility] [address] [place], [place] [address] Wanda Anamaria Potassium [Moles/Vol] 4.1 mmol/L Normal 3.4-5.0 [facility] Comment on above: Performed By: #### T SH, LIPID, CMP, PSAD, T4 #### [facility] [address] [place], [place] [address] Wanda Anamaria Protein [Mass/Vol] 8.1 g/dL Normal 6.1-8.2 [facility] Comment on above: Performed By: #### T SH, LIPID, CMP, PSAD, T4 #### [facility] [address] [place], [place] [address] Wanda Anamaria Sodium [Moles/Vol] 138 mmol/L Normal 137-145 [facility] Comment on above: Performed By: #### T SH, LIPID, CMP, PSAD, T4 #### [facility] [address] [place], [place] [address] Wanda Anamaria Urea nitrogen [Mass/Vol] 34.0 mg/dL Critically high 9.0-20.0 [facility] Comment on above: Performed By: #### T SH, LIPID, CMP, PSAD, T4 #### [facility] [address] [place], [place] [address] Wanda Anamaria Urea nitrogen/Creatinine [Mass ratio] 31.5 mg/mg Normal [facility] Comment on above: Performed By: #### T SH, LIPID, CMP, PSAD, T4 #### [facility] [address] [place], [place] [address] Wanda Anamaria Encounters Encounter Date Encounter Type Care Provider Facility Start: 09-08-2023 End: 09-08-2023 ambulatory [facility] Start: 09-07-2023 End: 09-07-2023 ambulatory [facility] Start: 06-17-2023 Telephone encounter Kaveh rivera DO Work Phone: [facility] Comment on above: Refund Checks Start: 04-11-2023 End: 04-11-2023 ambulatory [facility] Not Available Start: 07-13-2021 End: 07-29-2021 ambulatory Devang Birch Facility:[facility] Start: 10-09-2020 Encounter for genera l adult medical examination without abnormal findings DR DEVANG BIRCH [facility] Start: 10-01-2020 End: 10-02-[address] [...] T SH, LIPID, CMP, PSAD, T4 #### [facility] [address] [address] Wanda Conrad Payers Date Payer Category Payer Medicare [facility] ADVANTAGE [facility] MEDIC[facility] ADVANTAGE [id number] 2021-Present [address] [place] [address] [id number] 2021 Self-pay 1965 Unknown [id number] 1964 Unknown [id number] 1964 Unknown [id number] 1964 Unknown [id number] 1964 Unknown [id number] 9 1964 Unknown [id number] 6 1964 Unknown [id number] 6 1959 Unknown [id number] Unknown Unknown [id number] Social History Date Type Detail Facility Start: [...] that he received two refund checks from [employer]. He deposited the checks and then was told from his bank that they bounced. If you could look into this for me please, all I am seeing is that the refunds were sent out. Call back # [phone] [facility] Note 06-17-2023 Telephone Encounter - [facility] July - 06/17/2023 9:18 AM EST Note Date & Type Note Facility 06-17-2023 Miscellaneous Notes Formattin g of this note might be different from the original. Sarah, patient called stated that he received two refund checks from [employer]. He deposited the checks and then was told from his bank that they bounced. If you could look into this for me please, all I am seeing is that the refunds were sent out. Call back # [phone] documented in this encounter [facility] Summary [...] DATE CREATED AUTHOR AUTHOR'S ORGANIZ ATION 07/03/2022 [facility] DATE CREATED AUTHOR AUTHOR'S ORGANIZ ATION 04/12/2023 [facility] [facility] EPIC DATE CREATED AUTHOR AUTHOR'S ORGANIZ ATION 09/08/2023 [facility] DATE CREATED AUTHOR AUTHOR'S ORGANIZ ATION 09/09/[address] [facility] Reason for Visit (unrecogniz ed section and content) Reason Onset Date Comments Refund Checks 06/17/2023 Care Teams (unrecognized sec tion and content) Kinesiology Internship Relationship Specialty Start Date End Date Merritt Thacker MD [address] [place] [address] PCP - General Internal Medicine 03/28/23 FOR [...] BE BASED ON THE PRIMARY CLINICAL RECORDS. [employer] provides no warranty or guarantee of the accuracy or completeness of information in this document.
[2023-12-16 10:51] LABS: Troponin I High Sensitivity 27.9 pg/mL (4.0-76.1)
[2023-12-16 10:56] LABS: Lactate/Lactic Acid 1.6 mmol/L (0.4-2.0)
[2023-12-16 10:59] LABS: Magnesium 1.4 mg/dL (1.8-2.4); Thyroid Stimulating Hormone 2.266 uIU/mL (0.358-3.740)
[2023-12-16 11:21] LABS: Glucometer 127 mg/dL (74-106)
[2023-12-16] MEDS: LEVOFLOXACIN IN DEXTROSE 5 % 750 MG/150 ML IV.SOLN 100 MG IV (12:03)
[2023-12-16] MEDS: BUMETANIDE 10 MG in 0.9 % SODIUM CHLORIDE 160 ML 20 MG IV (12:03)
[2023-12-16] MEDS: ENOXAPARIN SODIUM 60 MG/0.6 ML SYRINGE SUBQ (12:54)
[2023-12-16 13:38] LABS: Troponin I High Sensitivity 28.1 pg/mL (4.0-76.1)
[2023-12-16 16:01] LABS: Glucometer 124 mg/dL (74-106)
[2023-12-16] MEDS: IPRATROPIUM BROMIDE 0.5 MG/2.5 ML VIAL.NEB IH ×2 (16:16→23:13)
[2023-12-16] MEDS: LEVALBUTEROL HCL 0.63 MG/3 ML VIAL.NEB IH ×2 (16:16→23:13)
[2023-12-16 18:22] LABS: Bilirubin Urine NEGATIVE (NEGATIVE); Blood Urine SMALL (NEGATIVE); Clarity Urine CLEAR (CLEAR); Color Urine LT. YELLOW (YELLOW); Glucose Urine UA NEGATIVE (NEGATIVE); Ketones Urine NEGATIVE (NEGATIVE); Leukocyte Esterase Urine NEGATIVE (NEGATIVE); Nitrite Urine NEGATIVE (NEGATIVE); Protein Urine NEGATIVE (NEG/TRACE)
[2023-12-16 18:30] LABS: Bacteria Urine NONE SEEN #/HPF (NONE SEEN); Cast Seen? NONE SEEN #/LPF (NONE SEEN); Crystals Seen? None Seen #/HPF (None Seen); Mucus Urine NONE SEEN (NONE SEEN); Squamous Epithelial Cell Urine NONE SEEN #/LPF (NONE/RARE); WBC Urine 0-2 #/HPF (NONE SEEN)
[2023-12-16 18:31] LABS: Urine Culture Indicated ALREADY ORDERED
[2023-12-16] MEDS: ENSURE HP 237 ML LIQUID PO (21:06)
[2023-12-16] MEDS: METOPROLOL TARTRATE 25 MG TABLET PO (21:06)
[2023-12-16] MEDS: METFORMIN HCL 500 MG TABLET 1000 MG PO (21:06)
[2023-12-16] MEDS: ISOSORBIDE MONONITRATE 30 MG TAB.ER.24H PO (21:06)
[2023-12-16] MEDS: MAGNESIUM SULFATE IN WATER 2 GM/50 ML PREMIX IV (21:06)
[2023-12-16] MEDS: MAGNESIUM OXIDE 400 MG TABLET PO (21:07)
[2023-12-16 21:12] LABS: Glucometer 124 mg/dL (74-106)
[2023-12-17] VITALS (20 sets, daily range): BP systolic 105–116; BP diastolic 58–76; PULSE 76–89; TEMP 36.2–36.6; O2SAT 91–98
[2023-12-17] MEDS: ACETAMINOPHEN 500 MG TABLET 1000 MG PO ×2 (02:00→20:35)
[2023-12-17] MEDS: LEVALBUTEROL HCL 0.63 MG/3 ML VIAL.NEB IH ×4 (04:42→23:12)
[2023-12-17] MEDS: IPRATROPIUM BROMIDE 0.5 MG/2.5 ML VIAL.NEB IH ×4 (04:42→23:12)
[2023-12-17 07:12] LABS: Basophils Percent Auto 0.5 % (0.2-2.0); Eosinophils Absolute Auto 0.2 10^3/uL (0.0-0.7); Eosinophils Percent Auto 2.3 % (0.9-7.0); Hematocrit 38.1 % (42.0-54.0); Hemoglobin 11.9 g/dL (14.0-18.0); Immature Granulocytes Abs Auto 0.02 10^3/uL (0.00-0.03); Immature Granulocytes Pct Auto 0.3 % (0.0-0.5); Lymphocytes Absolute Auto 1.7 10^3/uL (1.2-3.8); Lymphocytes Percent Auto 21.8 % (20.5-60.0); Mean Corpuscular HGB Conc 31.2 g/dL (29.9-35.2); Mean Corpuscular Hemoglobin 26.4 pg (25.9-34.0); Mean Corpuscular Volume 84.5 fL (80.0-94.0); Mean Platelet Volume 9.8 fL (9.5-13.5); Monocytes Absolute Auto 0.5 10^3/uL (0.3-0.8); Monocytes Percent Auto 6.8 % (1.7-12.0); Neutrophils Absolute Auto 5.4 10^3/uL (1.4-6.5); Neutrophils Percent Auto 68.3 % (43.0-75.0); Platelet Count 198 10^3/uL (150-450); Red Blood Count 4.51 10^6/uL (4.70-6.10); White Blood Count 7.9 10^3/uL (4.0-11.0)
[2023-12-17 07:44] LABS: Alanine Aminotransferase 28 U/L (16-63); Albumin Globulin Ratio 0.8; Alkaline Phosphatase 118 U/L (46-116); Anion Gap 10.4; Aspartate Amino Transferase 18 U/L (15-37); BUN Creatinine Ratio 20.8; Bilirubin Total 1.1 mg/dL (0.2-1.0); Calcium 7.9 mg/dL (8.5-10.1); Carbon Dioxide 31.8 mmol/L (21.0-32.0); Chloride 101 mmol/L (98-107); Estimated GFR (African America >60 (>=60); Estimated GFR (Non-African Ame 50 (>=60); Globulin 3.8 g/dL; Glucose 126 mg/dL (74-106); Magnesium 1.4 mg/dL (1.8-2.4); Potassium 3.2 mmol/L (3.5-5.1); Sodium 140 mmol/L (136-145); Total Protein 6.8 g/dL (6.4-8.2)
--- NOTE | 2023-12-17 08:27 | PM.PN ---
Progress Note: Subjective Subjective Interval history: Patient resting comfortably in bed this morning. He denies any chest pain or shortness of breath. Patient notes he didn't get much sleep last night due to urinating most of the night. She says he feels better, swelling has improved. Still requiring 2L NC oxygen and patient states he does not wear oxgyen. Exam Narrative Exam Narrative: General: Patient is alert, and oriented to person, place and time with normal affect, proper hygiene severe obesity Skin: bilateral stasis dermatitis Head: atraumatic, acephalic Eyes: PERRLA, no nystagmus present, conjunctiva clear, no scleral icterus Ears:normal gross auditory acuity Heart: Normal rate and rhythm, no murmurs/rubs/gallops Lungs: no audible wheezes, crackles and normal breath sounds all lung thorpe Abdomen: severe central obesity, Normal audible bowel sounds, no distension, No palpable masses, no organomegaly, no rebound/guarding/ or rigidity Musculoskeletal: swelling bilateral lower extremities, no pitting Neuro: CN II-X grossly intact Constitutional Vital Signs, click to edit/add: Last Vital Signs Temp 97.2 F L 12/17/23 07:46 Pulse 79 12/17/23 08:00 Resp 20 12/17/23 07:46 BP 105/58 12/17/23 07:46 Pulse Ox 94 L 12/17/23 07:46 O2 Del Method Nasal Cannula 12/17/23 07:46 O2 Flow Rate 2 12/17/23 07:46 Progress Note: Objective Labs Labs: Short CBC 12/17/23 Range/Units 06:55 WBC 7.9 (4.0-11.0) 10^3/uL Hgb 11.9 L (14.0-18.0) g/dL Hct 38.1 L (42.0-54.0) % Plt Count 198 (150-450) 10^3/uL BMP 12/16/23 12/17/23 07:32 06:55 Sodium 139 140 Potassium 4.9 3.2 L Chloride 102 101 Carbon Dioxide 29.9 31.8 BUN 34.0 H 30.0 H Creatinine 1.34 H 1.44 H Glucose 134 H 126 H Calcium 7.9 L 7.9 L Liver Function 12/16/23 12/17/23 Range/Units 07:32 06:55 Total Bilirubin 1.0 1.1 H (0.2-1.0) mg/dL AST 56 H 18 (15-37) U/L ALT 26 28 (16-63) U/L Alkaline Phosphatase 134 H 118 H (46-116) U/L Albumin 3.1 L 3.0 L (3.4-5.0) g/dL Urine / Range/Units 18:16 Urine Color Lt. yellow (YELLOW) Urine Clarity Clear (CLEAR) Urine pH 6.0 (5.0-9.0) Ur Specific [place] 1.010 (1.005-1.025) Urine Protein Negative (NEG/TRACE) mg/dL Urine Glucose (UA) Negative (NEGATIVE) mg/dL Progress Note: A&P Assessment and Plan (1) Acute combined systolic (congestive) and diastolic (congestive) heart failure: Assessment and Plan: Was placed on a bumex drip. Had pulmonary edema findings on xray, with LL edema on exam, elevated BNP. requiring 2L NC oxygen. Patient has been diuresing well on bumex. Cr is 1.44. will monitor along with electrolytes. Will place on oral Bumex 1mg BID. Continue to monitor I&O's with fluid restriction. 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 continue metoprolol and Imdur. Will add lisinopril before discharge. (2) Reduced ejection fraction concurrent with and due to acute heart failure: Assessment and Plan: as seen on ECHO with EF 35-40%, would benefit from sleep study and weight loss, and to see cardiology clinic. possible cardiac rehab. (3) Acute respiratory failure with hypoxia: Assessment and Plan: continue oxygen supplementation. Should improve with diuresis (4) Hypertension: Assessment and Plan: continue metoprolol, will add lisinopril. Qualifiers: Hypertension type: primary hypertension Qualified Code(s): I10 - Essential (primary) hypertension (5) COPD (chronic obstructive pulmonary disease): Assessment and Plan: concern for possible exacerbation. continue nebs as needed. no Pneumonia seen on chest xray (6) Chronic kidney disease, stage III (moderate): Assessment and Plan: Monitor, avoid nephrotoxins (7) Anemia in chronic kidney disease: Assessment and Plan: Hb 11.9 (8) Diabetes mellitus type 2 with complications: Assessment and Plan: continue SSI (9) Hypomagnesemia: Assessment and Plan: replace as needed. Plan patient is a full code continue lovenox for DVT prophylaxis Patient with contiued needs of diuresis and still supplemental oxygen requirement. Will need 1-2 more days of hospital necessary care.
[2023-12-17] MEDS: MAGNESIUM OXIDE 400 MG TABLET PO ×2 (08:42→20:36)
[2023-12-17] MEDS: METFORMIN HCL 500 MG TABLET 1000 MG PO ×2 (08:43→20:36)
[2023-12-17] MEDS: METOPROLOL TARTRATE 25 MG TABLET PO ×2 (08:43→20:36)
[2023-12-17] MEDS: ENSURE HP 237 ML LIQUID PO ×2 (08:43→20:35)
[2023-12-17] MEDS: BUMETANIDE 1 MG TABLET PO ×2 (08:43→20:36)
[2023-12-17 11:47] LABS: Glucometer 153 mg/dL (74-106)
[2023-12-17] MEDS: LEVOFLOXACIN IN DEXTROSE 5 % 750 MG/150 ML IV.SOLN 100 MG IV (12:15)
[2023-12-17] MEDS: ENOXAPARIN SODIUM 60 MG/0.6 ML SYRINGE SUBQ (12:15)
[2023-12-17 16:12] LABS: Glucometer 120 mg/dL (74-106)
[2023-12-17] MEDS: ISOSORBIDE MONONITRATE 30 MG TAB.ER.24H PO (20:36)
[2023-12-17 21:29] LABS: Glucometer 152 mg/dL (74-106)
[2023-12-18] VITALS (9 sets, daily range): BP systolic 107–112; BP diastolic 62–68; PULSE 64–87; TEMP 36.4–36.6; O2SAT 90–94
[2023-12-18] MEDS: LEVALBUTEROL HCL 0.63 MG/3 ML VIAL.NEB IH ×2 (05:29→11:39)
[2023-12-18] MEDS: IPRATROPIUM BROMIDE 0.5 MG/2.5 ML VIAL.NEB IH ×2 (05:29→11:39)
[2023-12-18 06:30] LABS: Basophils Absolute Auto 0.1 10^3/uL (0.0-0.1); Basophils Percent Auto 0.7 % (0.2-2.0); Eosinophils Absolute Auto 0.3 10^3/uL (0.0-0.7); Hematocrit 38.5 % (42.0-54.0); Hemoglobin 11.9 g/dL (14.0-18.0); Immature Granulocytes Abs Auto 0.02 10^3/uL (0.00-0.03); Immature Granulocytes Pct Auto 0.2 % (0.0-0.5); Lymphocytes Absolute Auto 2.2 10^3/uL (1.2-3.8); Lymphocytes Percent Auto 26.5 % (20.5-60.0); Mean Corpuscular HGB Conc 30.9 g/dL (29.9-35.2); Mean Corpuscular Hemoglobin 26.4 pg (25.9-34.0); Mean Corpuscular Volume 85.4 fL (80.0-94.0); Mean Platelet Volume 10.3 fL (9.5-13.5); Monocytes Absolute Auto 0.5 10^3/uL (0.3-0.8); Monocytes Percent Auto 6.4 % (1.7-12.0); Neutrophils Absolute Auto 5.2 10^3/uL (1.4-6.5); Neutrophils Percent Auto 63.2 % (43.0-75.0); Platelet Count 220 10^3/uL (150-450); Red Blood Count 4.51 10^6/uL (4.70-6.10); White Blood Count 8.3 10^3/uL (4.0-11.0)
[2023-12-18 07:04] LABS: Alanine Aminotransferase 23 U/L (16-63); Albumin Globulin Ratio 0.8; Alkaline Phosphatase 113 U/L (46-116); Anion Gap 12.5; BUN Creatinine Ratio 22.5; Bilirubin Total 0.9 mg/dL (0.2-1.0); Calcium 8.2 mg/dL (8.5-10.1); Carbon Dioxide 31.1 mmol/L (21.0-32.0); Chloride 99 mmol/L (98-107); Estimated GFR (African America 58 (>=60); Estimated GFR (Non-African Ame 48 (>=60); Globulin 3.8 g/dL; Glucose 121 mg/dL (74-106); Magnesium 1.6 mg/dL (1.8-2.4); Potassium 3.6 mmol/L (3.5-5.1); Sodium 139 mmol/L (136-145); Total Protein 6.8 g/dL (6.4-8.2)
[2023-12-18 07:27] LABS: Aspartate Amino Transferase 17 U/L (15-37)
--- NOTE | 2023-12-18 07:38 | P.DS_ITS ---
DS: Providers Provider Date of admission: 12/16/23 09:32 Primary care physician: MERRITT THACKER Admitting clinician: Denys Breen Consults: 12/16/23 09:51 Consult to Pharmacy Routine Consulting Provider: Reason for consultation: Please Carmen me when Med Rec is Updated Has provider been notified: No Occupational Therapy Eval and Treat Routine Reason for consultation: Only if needed for Rehab Has provider been notified: No Physical Therapy Eval and Treat Routine Reason for consultation: Eval and Treat Has provider been notified: No Attending physician on discharge: Crystal Dudley DS: Diagnosis Discharge Diagnosis (1) Acute combined systolic (congestive) and diastolic (congestive) heart failure: (2) Reduced ejection fraction concurrent with and due to acute heart failure: (3) Acute respiratory failure with hypoxia: (4) Hypertension: Qualifiers: Hypertension type: primary hypertension Qualified Code(s): I10 - Essential (primary) hypertension (5) COPD (chronic obstructive pulmonary disease): (6) Chronic kidney disease, stage III (moderate): (7) Anemia in chronic kidney disease: (8) Diabetes mellitus type 2 with complications: (9) Hypomagnesemia: DS: Summary Hospital Course Hospital Course: Patient presented to the emergency room on 12/16/23 with increasing shortness of breath. About a month ago he was stopped on his Maxzide secondary to his creatinine becoming elevated. Since that time he had some increasing shortness of breath. Does not check his weight or blood pressure at home. In ER found to have significant elevated proBNP significant peripheral edema and pulmonary edema noted on chest x-ray. Patient was admitted for Acute CHF exacerbation with hypoxia. Patient had a Bumex drip x 2 days, electrolytes were monitored and replaced. He continued to require 3L NC, then 2 NC and at the time of discharge is saturating well on room air. He was started on Bumex 1mg PO BID, and will be discharged home on Bumex 1mg DAily. Will stop the lasix given his acute Cr elevation. Will also stop his diclofenac. Echocardiogram showed: estimated ejection fraction is 35-40% 2. Severe left ventricular dilatation 3. The right ventricle is moderately dilated with reduced systolic function 4. Biatrial dilation 5. Grade II diastolic dysfunction 6. Doppler studies reveal moderately (45-60) elevated right sided pressures. RVSP 57 mmHg 7. Valves are poorly seen; no obvious valvular abnormalities Patient was started on Metoprolol, Imdur and will be continued on these as outpatient. Once renal function improves consider addition of ANDREWS or ARB. He should follow a low salt diet with 2L of fluid restriction, watch daily weights. He will have close follow up with his pcp. We discussed getting established with Real Estate Administrative Assistant as outpatient and possible Cardiac rehab that all can be discussed with PCP. For his COPD he was on IV Levaquin here, he will finish 3 more days. I have also sent in Albuterol inhaler to use as needed. He would also benefit from PFT's as outpatient. He is to continue on his home diabetes medications. He can return to the ER with any worsening signs or symptoms. Status at Discharge Functional status at discharge: uses cane/walker Overall status at discharge: patient is progressing back to baseline Time Spent with Patient Time attestation: Total time spent providing and/or coordinating discharge services: Time spent: greater than 30 minutes Exam Narrative Exam Narrative: General: Patient is alert, and oriented to person, place and time with normal affect, proper hygiene severe obesity Skin: bilateral stasis dermatitis Head: atraumatic, acephalic Eyes: PERRLA, no nystagmus present, conjunctiva clear, no scleral icterus Ears:normal gross auditory acuity Heart: Normal rate and rhythm, no murmurs/rubs/gallops Lungs: no audible wheezes, crackles and normal breath sounds all lung thorpe Abdomen: severe central obesity, Normal audible bowel sounds, no distension, No palpable masses, no organomegaly, no rebound/guarding/ or rigidity Musculoskeletal: swelling bilateral lower extremities, no pitting Neuro: CN II-X grossly intact Constitutional Vital Signs, click to edit/add: Last Vital Signs Temp 97.5 F L 12/18/23 04:00 Pulse 82 12/18/23 06:00 Resp 20 12/18/23 05:30 BP 107/68 12/18/23 04:00 Pulse Ox 94 L 12/18/23 05:30 O2 Del Method Room Air 12/18/23 05:30 O2 Flow Rate 1 12/17/23 17:07 DS: Data Data Completed and Pending Labs on day of discharge: Labs from last 24 hours 12/18/23 12/17/23 12/17/23 05:48 21:27 16:11 WBC 8.3 RBC 4.51 L Hgb 11.9 L Hct 38.5 L MCV 85.4 MCH 26.4 MCHC 30.9 RDW 15.0 Plt Count 220 MPV 10.3 Neut % (Auto) 63.2 Lymph % (Auto) 26.5 Routt % (Auto) 6.4 Eos % (Auto) 3.0 Baso % (Auto) 0.7 Neut # (Auto) 5.2 Lymph # (Auto) 2.2 Routt # (Auto) 0.5 Eos # (Auto) 0.3 Baso # (Auto) 0.1 Abs Immat Gran (auto) 0.02 Imm/Tot Granulo (auto) 0.2 Sodium Potassium Chloride Carbon Dioxide Anion Gap BUN Creatinine Est GFR ( Amer) Est GFR (Non-Af Amer) BUN/Creatinine Ratio Glucose Calcium Magnesium Total Bilirubin AST ALT Alkaline Phosphatase NT-Pro-B Natriuret Pep Total Protein Albumin Globulin Albumin/Globulin Ratio POC Glucose 152 H 120 H 12/17/23 12/17/23 11:47 06:55 WBC RBC Hgb Hct MCV MCH MCHC RDW Plt Count MPV Neut % (Auto) Lymph % (Auto) Routt % (Auto) Eos % (Auto) Baso % (Auto) Neut # (Auto) Lymph # (Auto) Routt # (Auto) Eos # (Auto) Baso # (Auto) Abs Immat Gran (auto) Imm/Tot Granulo (auto) Sodium 140 Potassium 3.2 L Chloride 101 Carbon Dioxide 31.8 Anion Gap 10.4 BUN 30.0 H Creatinine 1.44 H Est GFR ( Amer) >60 Est GFR (Non-Af Amer) 50 L BUN/Creatinine Ratio 20.8 Glucose 126 H Calcium 7.9 L Magnesium 1.4 L Total Bilirubin 1.1 H AST 18 ALT 28 Alkaline Phosphatase 118 H NT-Pro-B Natriuret Pep 5368.0 H* Total Protein 6.8 Albumin 3.0 L Globulin 3.8 Albumin/Globulin Ratio 0.8 POC Glucose 153 H Discharge Plan Discharge Disposition: Home, Self-Care Condition: Fair Discharge Medications: New isosorbide mononitrate 30 mg Tablet Extended Release 24 Hr 30 mg PO Q24H 15 Days Qty: 15 0RF benzonatate 100 mg Capsule 200 mg PO Q8H PRN (Reason: Cough) 3 Days Qty: 6 0RF bumetanide 1 mg Tablet 1 mg PO DAILY 15 Days Qty: 15 0RF metoprolol tartrate 25 mg Tablet 25 mg PO BID 15 Days Qty: 30 0RF albuterol sulfate 90 mcg/actuation HFA aerosol inhaler 2 inh inhalation Q4H PRN (Reason: shortness of breath or wheezing) Qty: 6.7 0RF levofloxacin 750 mg tablet 750 mg PO DAILY 3 Days Qty: 3 0RF Continued Januvia 100 mg tablet 100 mg PO DAILY Rybelsus 7 mg tablet 7 mg PO DAILY metformin 1,000 mg tablet 1,000 mg PO BID Discontinued furosemide 40 mg tablet 40 mg PO DAILY diclofenac sodium 75 mg tablet,delayed release (DR/EC) 75 mg PO Q12H Activity: ambulate only with your walker Diet: low salt diet Diet Detail: Fluid restriction of 2 liters with low salt diet Print Language: Indonesian Patient Instructions: Pulmonary Edema (DC) Forms: Portal Instructions Follow Up Appointments: Call Dr Hagen Tuesday for follow up in one week [phone] Encouraged patient to get Real Estate Administrative Assistant, possible Cardiac Rehab candidate will need BMP within 7 days
[2023-12-18] MEDS: ENSURE HP 237 ML LIQUID PO (08:38)
[2023-12-18] MEDS: MAGNESIUM OXIDE 400 MG TABLET PO (08:38)
[2023-12-18] MEDS: METOPROLOL TARTRATE 25 MG TABLET PO (08:38)
[2023-12-18] MEDS: BUMETANIDE 1 MG TABLET PO (08:38)
[2023-12-18] MEDS: METFORMIN HCL 500 MG TABLET 1000 MG PO (08:39)
--- OUTSIDE RECORDS SUMMARY | 2023-12-19 09:04 | XMS_ITS | CCD ---
Author Organization [facility] Care Team Providers Care Ammonia Box Tender Name Role Phone HOUSE, DR GLEZ Primary [...] Unavailable Merritt Thacker MD Primary Care Provider [phone] MERRITT THACKER Attending MERRITT Jackson Referring Unavailable MERRITT THACKER Primary Care Unavailable MERRITT THACKER Referring Unavailable MERRITT THACKER Primary Care Unavailable Allergies Allergy Classification Reported Allergen(s) Allergy Type Date of Onset Reaction(s) Facility Anti-Epileptic Agents (1 source) topiramate Drug Allergy [address] [facility] Repository (3 sources) topiramate; 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: [TOPIRAMATE] Drug Allergy 4 [facility] Repository (1 source) Topiramate Propensity to adverse reactions 3 [facility] Medications Current Medications Medication Drug Class(es) [...] disease (2 sources) Atherosclerotic heart disease of [place] coronary artery without angina pectoris; 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: [Old [...] 07-13-2021 Episodic Other aftercare (1 source) Other assisted (current) drug therapy; 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: [OTH [facility] CURRENT DRUG THERAPY] Onset: 11-27-2019 Episodic Other aftercare (1 source) half-way (current) use of anticoagulants; 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: [[facility] CURRNT USE ANTICOAGULANTS] Onset: 11-27-2019 Episodic Other [...] Interpretation Reference Range Facility COMPREHENSIVE METABOLIC PANE [facility] 09-07-2023 Albumin [Mass/Vol] 3.8 g/dL Normal 3.2-5.3 [facility] Comment on above: Performed By: #### 2 4331-1, CMP #### [facility] ([id number]) [address], [address] [place] [address] ALP [Catalytic activity/Vol] 101 U/L Normal 39-130 [facility] Comment on above: Performed By: #### 2 4331-1, CMP #### [facility] ([id number]) [address], [address] [place] [address] ALT [Catalytic activity/Vol] 14 U/L Normal 0-40 [facility] Comment on above: Performed By: #### 2 4331-1, CMP #### [facility] ([id number]) [address], [address] [place] [address] Anion gap [Moles/Vol] 8 mmol/L Normal 5-15 [facility] Comment on above: Performed By: #### 2 4331-1, CMP #### [facility] ([id number]) [address], [address] [place] [address] AST [Catalytic activity/Vol] 14 U/L Normal 0-41 [facility] Comment on above: Performed By: #### 2 4331-1, CMP #### [facility] ([id number]) [address], [address] [place] [address] Bilirubin [Mass/Vol] 0.6 mg/dL Normal 0.3-1.2 [facility] [place] Comment on above: Performed By: #### 2 4331-1, CMP #### [facility] ([id number]) [address], [address] [place] [address] Calcium [Mass/Vol] 8.8 mg/dL Normal 8.5-10.5 [facility] Comment on above: Performed By: #### 2 4331-1, CMP #### [facility] ([id number]) [address], [address] [place] [address] Chloride [Moles/Vol] 100 mmol/L Normal 98-109 [facility] [place] Comment on above: Performed By: #### 2 4331-1, CMP #### [facility] ([id number]) [address], [address] [place] [address] CO2 [Moles/Vol] 31 mmol/L Normal 22-32 [facility] Comment on above: Performed By: #### 2 4331-1, CMP #### [facility] ([id number]) [address] [place] [address] Creatinine [Mass/Vol] 1.29 mg/dL Normal 0.60-1.30 [facility] Comment on above: Result Comment: METH OD TRACEABLE TO IDMS STANDARD Performed By: #### 2 4331-1, CMP #### [facility] ([id number]) [address], [address] [place] [address] GFR/1.73 sq M.predicted among non-blacks MDRD (S/P/Bld) [Vol rate/Area] 64 mL/min/{1.73_m2} Normal >59 [facility] Comment on above: Result Comment: Reported eGFR is based on the CKD-EPI 2020 equation that does not use a race coefficient. Performed By: #### 2 4331-1, CMP #### [facility] ([id number]) [address], [address] [place] [address] Glucose [Mass/Vol] 119 mg/dL High 65-99 [facility] Comment on above: Performed By: #### 2 4331-1, CMP #### [facility] ([id number]) [address], [address] [place] [address] Potassium [Moles/Vol] 4.4 mmol/L Normal 3.5-5.0 [facility] Comment on above: Performed By: #### 2 4331-1, CMP #### [facility] ([id number]) [address] [place] [address] Protein [Mass/Vol] 7.2 g/dL Normal 6.0-8.0 [facility] Comment on above: Performed By: #### 2 4331-1, CMP #### [facility] ([id number]) [address], [address] [place] [address] Sodium [Moles/Vol] 139 mmol/L Normal 134-146 [facility] Comment on above: Performed By: #### 2 4331-1, CMP #### [facility] ([id number]) [address], [address] [place] [address] Urea nitrogen [Mass/Vol] 21 mg/dL Normal 5-23 [facility] Comment on above: Performed By: #### 2 4331-1, CMP #### [facility] ([id number]) [address], [address] [place] [address] HGB A1C (GLYCO-HGB)on 2023 Glucose [Mass/Vol] 134 mg/dL Normal [facility] Comment on above: Performed By: #### 2 4331-1, CMP #### [facility] ([id number]) [address], [address] [address] HbA1c (Bld) [Mass fraction] 6.3 % High 4.4-5.6 [facility] Comment on above: Result Comment: NOTE ADA Guidelines Result HgbA1c Normal : less than 5.7 % Prediabetes : 5.7 % to 6.4 % Diabetes : > 6.4 % Use with caution in patients with abnormal hemoglobin variants as the half-life of red blood cells and in vivo glycation rates are affected. Performed By: #### 2 4331-1, CMP #### [facility] ([id number]) [address], [address] [place] [address] Lipid 1996 panelon 4 Cholesterol [Mass/Vol] 145 mg/dL Low 150-200 [facility] Comment on above: Performed By: #### 2 4331-1, CMP #### [facility] ([id number]) [address], [address] [place] [address] Cholesterol in HDL [Mass/Vol] 30 mg/dL Low >39 [facility] Comment on above: Result Comment: HDL <40 mg/dL - High Risk HDL > or = 40mg/dL- Desirable HDL >60 mg/dL - Negative Risk Performed By: #### 2 4331-1, CMP #### [facility] ([id number]) [address], [address] [place] [address] Cholesterol in LDL [Mass/Vol] 90 mg/dL Normal <130 [facility] Comment on above: Result Comment: LDL <100 mg/dL - Desirable LDL >160 mg/dL - High Risk Performed By: #### 2 4331-1, CMP #### [facility] ([id number]) [address] [address] [place] [address] Cholesterol in VLDL [Mass/Vol] 25 mg/dL Normal 0-30 [facility] Comment on above: Performed By: #### 2 4331-1, CMP #### [facility] ([id number]) [address], [facility] [address] [place] [address] CHOLESTEROL:HDL 4.8 Normal 1.0-5.0 [facility] Comment on above: Performed By: #### 2 4331-1, CMP #### [facility] ([id number]) [address], [address] [place] [address] Triglyceride [Mass/Vol] 123 mg/dL Normal 27-150 [facility] Comment on above: Performed By: #### 2 4331-1, CMP #### [facility] ([id number]) [address], [address] [address] CBC AUTO DIFFon 10-01-2020 BASO # 0.1 103/ul Normal 0.0-0.1 [facility] Comment on above: Performed By: #### T SH, LIPID, CMP, PSAD, T4 #### [facility] [address] [place], [place] [address] Wanda Anamaria Basophils/100 WBC (Bld) 0.8 % Normal 0.2-2.0 [facility] Comment on above: Performed By: #### T SH, LIPID, CMP, PSAD, T4 #### [facility] [address] [place], [place] [address] Wanda Anamaria EO # 0.3 103/ul Normal 0.0-0.7 [facility] Comment on above: Performed By: #### T SH, LIPID, CMP, PSAD, T4 #### [facility] [address] [place] [address] Wanda Conrad Eosinophils/100 WBC (Bld) 3.5 % Normal 0.9-7.[address] [facility] Comment on above: Performed By: #### T SH, LIPID, CMP, PSAD, T4 #### [facility] [address] [place] [address] Wanda Conrad Erythrocyte distribution width (RBC) [Ratio] 15.2 % Critically high 11.0-15.[address] [facility] Comment on above: Performed By: #### T SH, LIPID, CMP, PSAD, T4 #### [facility] [address] [place] [address] Wanda Conrad Hematocrit (Bld) [Volume fraction] 42.3 % Normal 42.0-54.[address] [facility] Comment on above: Performed By: #### T SH, LIPID, CMP, PSAD, T4 #### [facility] [address] [place] [address] Wanda Conrad Hemoglobin (Bld) [Mass/Vol] 13.3 g/dL Critically low 14.0-18.[address] [facility] Comment on above: Performed By: #### T SH, LIPID, CMP, PSAD, T4 #### [facility] [address] [place] [address] Wanda Conrad IG # 0.04 10e3/ul Critically high 0.00-0.03 [facility] Comment on above: Performed By: #### T SH, LIPID, CMP, PSAD, T4 #### [facility] [address] [place] [address] Wandavanda Conrad IG % 0.4 % Normal 0.0-0.[address] [facility] Comment on above: Performed By: #### T SH, LIPID, CMP, PSAD, T4 #### [facility] [address] [place] [address] Wanda Anamaria LYMPH # 2.8 103/ul Normal 1.2-3.[address] [facility] Comment on above: Performed By: #### T SH, LIPID, CMP, PSAD, T4 #### [facility] [address] [place] [address] Wanda Conrad Lymphocytes/100 WBC (Bld) 30.2 % Normal 20.5-60.0 [facility] Comment on above: Performed By: #### T SH, LIPID, CMP, PSAD, T4 #### [facility] [address] [place] [address] Wandavanda Conrad MANUAL DIFF REQ NO Normal [facility] Comment on above: Performed By: #### T SH, LIPID, CMP, PSAD, T4 #### [facility] [address] [place] [address] Wanda Conrad MCH (RBC) [Entitic mass] 26.4 pg Normal 25.9-34.[address] [facility] Comment on above: Performed By: #### T SH, LIPID, CMP, PSAD, T4 #### [facility] [address] [place] [address] Wandavanda Conrad MCHC (RBC) [Mass/Vol] 31.4 g/dL Normal 29.9-35.[address] [facility] Comment on above: Performed By: #### T SH, LIPID, CMP, PSAD, T4 #### [facility] [address] [place] [address] Wanda Conrad MCV (RBC) [Entitic vol] 83.9 fL Normal 80.0-94.[address] [facility] Comment on above: Performed By: #### T SH, LIPID, CMP, PSAD, T4 #### [facility] [address] [place] [address] Wandavanda Antoineen MONO # 0.6 103/ul Normal 0.3-0.[address] [facility] Comment on above: Performed By: #### T SH, LIPID, CMP, PSAD, T4 #### [facility] [address] [place] [address] Wandavanda Conrad Monocytes/100 WBC (Bld) 6.2 % Normal 1.7-12.[address] [facility] Comment on above: Performed By: #### T SH, LIPID, CMP, PSAD, T4 #### [facility] [address] [place], [place] [address] Wanda Conrad NEUT # 5.4 103/ul Normal 1.4-6.[address] [facility] Comment on above: Performed By: #### T SH, LIPID, CMP, PSAD, T4 #### [facility] [address] [place], [place] [address] Wanda Conrad Neutrophils/100 WBC (Bld) 58.9 % Normal 43.0-75.[address] [facility] Comment on above: Performed By: #### T SH, LIPID, CMP, PSAD, T4 #### [facility] [address] [place], [place] [address] Wanda Conrad Platelet mean volume (Bld) [Entitic vol] 10.5 fL Normal 9.5-13.5 [facility] Comment on above: Performed By: #### T SH, LIPID, CMP, PSAD, T4 #### [facility] [address] [place] [id number] Wanda Conrad PLT 252 103/ul Normal 150-450 [facility] Comment on above: Performed By: #### T SH, LIPID, CMP, PSAD, T4 #### [facility] [address] [place], [place] [address] Wanda Conrad RBC 5.04 106/ul Normal 4.70-6.[address] [facility] Comment on above: Performed By: #### T SH, LIPID, CMP, PSAD, T4 #### [facility] [address] [place], [place] [address] Wanda Conrad WBC 9.1 103/ul Normal 4.0-11.[address] [facility] Comment on above: Performed By: #### T SH, LIPID, CMP, PSAD, T4 #### [facility] [address] [place], [place] [address] Wanda Conrad LIPID PROFILEon 10-01-2020 CHOL-HDL RATIO NORM SEE BELOW Normal [facility] Comment on above: Result Comment: 3.3 - 4.4 LOW RISK 4.4 - 7.1 AVERAGE RISK 7.1 - 11.0 MODERATE RISK >11.0 HIGH RISK Performed By: #### T SH, LIPID, CMP, PSAD, T4 #### [facility] [address] [place], [place] [address] Wanda Anamaria Cholesterol [Mass/Vol] 137 mg/dL Normal <=[address] [facility] Comment on above: Performed By: #### T SH, LIPID, CMP, PSAD, T4 #### [facility] [address] [place], [place] [address] Wanda Anamaria Cholesterol in HDL [Mass/Vol] 31 mg/dL Normal [facility] Comment on above: Performed By: #### T SH, LIPID, CMP, PSAD, T4 #### [facility] [address] [place], [place] [address] Wanda Anamaria Cholesterol in LDL [Mass/Vol] 81.8 mg/dL Normal [facility] Comment on above: Performed By: #### T SH, LIPID, CMP, PSAD, T4 #### [facility] [address] [place], [place] [address] Wanda Anamaria Cholesterol.total/Cho lesterol in HDL [Mass ratio] 4.4 {ratio} Normal [facility] Comment on above: Performed By: #### T SH, LIPID, CMP, PSAD, T4 #### [facility] [address] [place], [place] [address] Wanda Anamaria HDL NORMAL > or = 60 mg/dl - LOW CARDIOVASCULAR RISK <40 mg/dl - HIGH CARDIOVASCULAR RISK Normal [facility] Comment on above: Performed By: #### T SH, LIPID, CMP, PSAD, T4 #### [facility] [address] [place] [id number] Wanda Anamaria LDL CALC NORMAL SEE BELOW Normal [facility] Comment on above: Result Comment: <100 mg/dl OPTIMAL 100 - 129 mg/dl NEAR OR ABOVE OPTIMAL 130 - 159 mg/dl BORDERLINE HIGH 160 - 189 mg/dl HIGH >190 mg/dl VERY HIGH Performed By: #### T SH, LIPID, CMP, PSAD, T4 #### [facility] [address] [place] [id number] Wanda Anamaria Triglyceride [Mass/Vol] 121 mg/dL Normal <=[address] [facility] Comment on above: Performed By: #### T SH, LIPID, CMP, PSAD, T4 #### [facility] [address] [place] [address] Wanda Conrad VLDL CALC 24.2 mg/dL Normal [facility] Comment on above: Performed By: #### T SH, LIPID, CMP, PSAD, T4 #### [facility] [address] [place] [address] Wandavanda Conrad PROF 14(COMP METB)on 021 Albumin [Mass/Vol] 3.3 g/dL Critically low 3.5-5.0 [facility] Comment on above: Performed By: #### T SH, LIPID, CMP, PSAD, T4 #### [facility] [address] [place] [address] Wanda Conrad Albumin/Globulin [Mass ratio] 0.7 {ratio} Normal [facility] Comment on above: Performed By: #### T SH, LIPID, CMP, PSAD, T4 #### [facility] [address] [place] [address] Wanda Conrad ALP [Catalytic activity/Vol] 113 U/L Normal 38-126 [facility] Comment on above: Performed By: #### T SH, LIPID, CMP, PSAD, T4 #### [facility] [address] [place] [address] Wanda Conrad ALT [Catalytic activity/Vol] 25 U/L Normal 21-72 [facility] Comment on above: Performed By: #### T SH, LIPID, CMP, PSAD, T4 #### [facility] [address] [place] [address] Wanda Conrad Anion gap [Moles/Vol] 12.4 mmol/L Normal [facility] Comment on above: Performed By: #### T SH, LIPID, CMP, PSAD, T4 #### [facility] [address] [place] [address] Wanda Conrad AST [Catalytic activity/Vol] 16 U/L Critically low 17-59 [facility] Comment on above: Performed By: #### T SH, LIPID, CMP, PSAD, T4 #### [facility] [address] [place] [address] Wanda Anamaria Bilirubin [Mass/Vol] 0.4 mg/dL Normal 0.2-1.[address] [facility] Comment on above: Performed By: #### T SH, LIPID, CMP, PSAD, T4 #### [facility] [address] [place] [address] Wanda Anamaria Calcium [Mass/Vol] 8.8 mg/dL Normal 8.4-10.2 [facility] Comment on above: Performed By: #### T SH, LIPID, CMP, PSAD, T4 #### [facility] [address] [place] [address] Wanda Anamaria Chloride [Moles/Vol] 102 mmol/L Normal 98-[address] [facility] Comment on above: Performed By: #### T SH, LIPID, CMP, PSAD, T4 #### [facility] [address] [place] [address] Wanda Anamaria CO2 [Moles/Vol] 30.0 mmol/L Normal 22.0-30.0 [facility] Comment on above: Performed By: #### T SH, LIPID, CMP, PSAD, T4 #### [facility] [address] [place] [address] Wanda Anamaria Creatinine [Mass/Vol] 1.29 mg/dL Critically high 0.66-1.[address] [facility] Comment on above: Performed By: #### T SH, LIPID, CMP, PSAD, T4 #### [facility] [address] [place] [address] Wanda Anamaria EGFR-AF BRAZILIAN >60 Normal >=60 [facility] Comment on above: Performed By: #### T SH, LIPID, CMP, PSAD, T4 #### [facility] [address] [place] [address] Wanda Anamaria EGFR-NON AF BRAZILIAN 58 mL/min/1.73m2 Critically low >=[address] [facility] Comment on above: Performed By: #### T SH, LIPID, CMP, PSAD, T4 #### [facility] [address] [place] [address] Wanda Anamaria Globulin (S) [Mass/Vol] 4.5 g/dL Normal [facility] Comment on above: Performed By: #### T SH, LIPID, CMP, PSAD, T4 #### [facility] [address] [place] [address] Wanda Anamaria Glucose [Mass/Vol] 153 mg/dL Critically high 74-106 [facility] Comment on above: Performed By: #### T SH, LIPID, CMP, PSAD, T4 #### [facility] [address] [place] [address] Wanda Anamaria Potassium [Moles/Vol] 4.4 mmol/L Normal 3.4-5.[address] [facility] Comment on above: Performed By: #### T SH, LIPID, CMP, PSAD, T4 #### [facility] [address] [place] [address] Wanda Anamaria Protein [Mass/Vol] 7.8 g/dL Normal 6.1-8.2 [facility] Comment on above: Performed By: #### T SH, LIPID, CMP, PSAD, T4 #### [facility] [address] [place] [address] Wanda Anamaria Sodium [Moles/Vol] 140 mmol/L Normal 137-145 [facility] Comment on above: Performed By: #### T SH, LIPID, CMP, PSAD, T4 #### [facility] [address] [place] [address] Wanda Anamaria Urea nitrogen [Mass/Vol] 28.0 mg/dL Critically high 9.0-20.0 [facility] Comment on above: Performed By: #### T SH, LIPID, CMP, PSAD, T4 #### [facility] [address] [place] [address] Wanda Anamaria Urea nitrogen/Creatinine [Mass ratio] 21.7 mg/mg Normal [facility] Comment on above: Performed By: #### T SH, LIPID, CMP, PSAD, T4 #### [facility] [address] [place] [address] Wanda Anamaria T4on 10-01-2020 T4 [Mass/Vol] 5.90 ug/dL Normal 5.53-11.[address] [facility] Comment on above: Performed By: #### T SH, LIPID, CMP, PSAD, T4 #### [facility] [address] [place] [address] Wanda Conrad TSHon 10-01-2020 TSH 2.487 uIU/mL Normal 0.470-4.[address] [facility] Comment on above: Performed By: #### T SH, LIPID, CMP, PSAD, T4 #### [facility] [address] [place] [address] Wanda Conrad TSH RANGE SEE BELOW Normal [facility] Comment on above: Result Comment: <0.3 4 UIU/ml HYPERTHYROID 0.34-5.60 UIU/ml EUTHYROID >5.60 UIU/ml HYPOTHYROID Performed By: #### T SH, LIPID, CMP, PSAD, T4 #### [facility] [address] [place] [address] Wanda Conrad XR LSPINE MIN 4 VIEWSon [...] EFRA HERBERT Date: 2020-04-04 15:05 Normal [address] [facility] ACETAMINOPHENon 11-25-2019 Acetaminophen [Mass/Vol] ug/mL Critically low 10.1-30.[address] [facility] Comment on above: Performed By: #### A CET #### [facility] [address] [place] [address] Wanda Conrad AMMONIAon 11-25-2019 Ammonia (P) [Moles/Vol] 7 umol/L Critically low 10-[address] [facility] Comment on above: Performed By: #### A MM #### [facility] [address] [place] [address] Wanda Conrad CBC AUTO DIFFon 11-25-2019 BASO # 0.0 103/ul Normal 0.0-0.[address] [facility] Comment on above: Performed By: #### T SH, LIPID, CMP, PSAD, T4 #### [facility] [address] [place] [address] Wanda Conrad Basophils/100 WBC (Bld) 0.4 % Normal 0.2-2.[address] [facility] Comment on above: Performed By: #### T SH, LIPID, CMP, PSAD, T4 #### [facility] [address] [place] [address] Wandavanda Conrad EO # 0.2 103/ul Normal 0.0-0.[address] [facility] Comment on above: Performed By: #### T SH, LIPID, CMP, PSAD, T4 #### [facility] [address] [place] [address] Wanda Conrad Eosinophils/100 WBC (Bld) 1.8 % Normal 0.9-7.[address] [facility] Comment on above: Performed By: #### T SH, LIPID, CMP, PSAD, T4 #### [facility] [address] [place] [address] Wandavanda Conrad Erythrocyte distribution width (RBC) [Ratio] 14.1 % Normal 11.0-15.[address] [facility] Comment on above: Performed By: #### T SH, LIPID, CMP, PSAD, T4 #### [facility] [address] [place] [address] Wanda Conrad Hematocrit (Bld) [Volume fraction] 41.2 % Critically low 42.0-54.[address] [facility] Comment on above: Performed By: #### T SH, LIPID, CMP, PSAD, T4 #### [facility] [address] [place] [address] Wandavanda Conrad Hemoglobin (Bld) [Mass/Vol] 13.3 g/dL Critically low 14.0-18.[address] [facility] Comment on above: Performed By: #### T SH, LIPID, CMP, PSAD, T4 #### [facility] [address] [place] [address] Wanda Anamaria IG # 0.05 10e3/ul Critically high 0.00-0.03 [facility] Comment on above: Performed By: #### T SH, LIPID, CMP, PSAD, T4 #### [facility] [address] [place] [address] Wanad Anamaria IG % 0.5 % Normal 0.0-0.[address] [facility] Comment on above: Performed By: #### T SH, LIPID, CMP, PSAD, T4 #### [facility] [address] [place] [address] Wanda Anamaria LYMPH # 2.3 103/ul Normal 1.2-3.[address] [facility] Comment on above: Performed By: #### T SH, LIPID, CMP, PSAD, T4 #### [facility] [address] [place] [address] Wanda Conrad Lymphocytes/100 WBC (Bld) 21.1 % Normal 20.5-60.0 [facility] Comment on above: Performed By: #### T SH, LIPID, CMP, PSAD, T4 #### [facility] [address] [place] [address] Wanda Conrad MANUAL DIFF REQ NO Normal [facility] Comment on above: Performed By: #### T SH, LIPID, CMP, PSAD, T4 #### [facility] [address] [place] [address] Wanda Conrad MCH (RBC) [Entitic mass] 26.1 pg Normal 25.9-34.0 [facility] Comment on above: Performed By: #### T SH, LIPID, CMP, PSAD, T4 #### [facility] [address] [place] [address] Wanda Conrad MCHC (RBC) [Mass/Vol] 32.3 g/dL Normal 29.9-35.2 [facility] Comment on above: Performed By: #### T SH, LIPID, CMP, PSAD, T4 #### [facility] [address] [address] Wanda Conrad MCV (RBC) [Entitic vol] 80.9 fL Normal 80.0-94.[address] [facility] Comment on above: Performed By: #### T SH, LIPID, CMP, PSAD, T4 #### [facility] [address] [place] [address] Wanda Conrad MONO # 0.5 103/ul Normal 0.3-0.[address] [facility] Comment on above: Performed By: #### T SH, LIPID, CMP, PSAD, T4 #### [facility] [address] [place] [address] Wanda Conrad Monocytes/100 WBC (Bld) 4.8 % Normal 1.7-12.[address] [facility] Comment on above: Performed By: #### T SH, LIPID, CMP, PSAD, T4 #### [facility] [address] [place] [address] Wanda Conrad NEUT # 7.8 103/ul Critically high 1.4-6.5 [facility] Comment on above: Performed By: #### T SH, LIPID, CMP, PSAD, T4 #### [facility] [address] [place] [address] Wanda Conrad Neutrophils/100 WBC (Bld) 71.4 % Normal 43.0-75.[address] [facility] Comment on above: Performed By: #### T SH, LIPID, CMP, PSAD, T4 #### [facility] [address] [place], [place] [id number] Wanda Conrad Platelet mean volume (Bld) [Entitic vol] 9.6 fL Normal 9.5-13.[address] [facility] Comment on above: Performed By: #### T SH, LIPID, CMP, PSAD, T4 #### [facility] [address] [place] [address] Wanda Conrad PLT 287 103/ul Normal 150-[address] [facility] Comment on above: Performed By: #### T SH, LIPID, CMP, PSAD, T4 #### [facility] [address] [place] [address] Wanda Conrad RBC 5.09 106/ul Normal 4.70-6.10 [facility] Comment on above: Performed By: #### T SH, LIPID, CMP, PSAD, T4 #### [facility] [address] [place], [place] [address] Wanda Conrad WBC 10.8 103/ul Normal 4.0-11.0 [facility] Comment on above: Performed By: #### T SH, LIPID, CMP, PSAD, T4 #### [facility] [address] [place], [place] [address] HEAD WO CONon 11-25-2019 [...] EFRA MARRERO Date: 2019-11-25 01:49 Normal [address] [facility] ETHANOL (BLD ALC)on 11-25-19 20 ALC NOTE NOTE: 80 mg/dl is the legal limit for a blood alcohol level Normal [facility] Comment on above: Performed By: #### T SH, LIPID, CMP, PSAD, T4 #### [facility] [address] [place], [place] [address] Wanda Conrad Ethanol [Mass/Vol] 205 mg/dL Normal [facility] Comment on above: Performed By: #### T SH, LIPID, CMP, PSAD, T4 #### [facility] [address] [id number] Wandavanda Conrad PROF 14(COMP METB)on 020 Albumin [Mass/Vol] 3.2 g/dL Critically low 3.5-5.0 [facility] Comment on above: Performed By: #### T SH, LIPID, CMP, PSAD, T4 #### [facility] [address] [place], [place] [id number] Wanda Anamaria Albumin/Globulin [Mass ratio] 0.8 {ratio} Normal [facility] Comment on above: Performed By: #### T SH, LIPID, CMP, PSAD, T4 #### [facility] [address] [address] Wanda Anamaria ALP [Catalytic activity/Vol] 111 U/L Normal 38-126 [facility] Comment on above: Performed By: #### T SH, LIPID, CMP, PSAD, T4 #### [facility] [address] [place] [address] Wanda Anamaria ALT [Catalytic activity/Vol] 23 U/L Normal 21-72 [facility] Comment on above: Performed By: #### T SH, LIPID, CMP, PSAD, T4 #### [facility] [address] [place] [address] Wanda Anamaria Anion gap [Moles/Vol] 16.5 mmol/L Normal Th [facility] Comment on above: Performed By: #### T SH, LIPID, CMP, PSAD, T4 #### [facility] [address] [place] [address] Wanda Anamaria AST [Catalytic activity/Vol] 15 U/L Critically low 17-59 [facility] Comment on above: Performed By: #### T SH, LIPID, CMP, PSAD, T4 #### [facility] [address] [place] [address] Wanda Anamaria Bilirubin [Mass/Vol] 0.3 mg/dL Normal 0.2-1.3 [facility] Comment on above: Performed By: #### T SH, LIPID, CMP, PSAD, T4 #### [facility] [address] [place] [address] Wanda Anamaria Calcium [Mass/Vol] 8.2 mg/dL Critically low 8.4-10.2 [facility] Comment on above: Performed By: #### T SH, LIPID, CMP, PSAD, T4 #### [facility] [address] [place] [address] Wanda Anamaria Chloride [Moles/Vol] 98 mmol/L Normal 98-[address] [facility] Comment on above: Performed By: #### T SH, LIPID, CMP, PSAD, T4 #### [facility] [address] [place] [address] Wanda Anamaria CO2 [Moles/Vol] 23.2 mmol/L Normal 22.0-30.0 [facility] Comment on above: Performed By: #### T SH, LIPID, CMP, PSAD, T4 #### [facility] [address] [place] [address] Wanda Anamaria Creatinine [Mass/Vol] 0.91 mg/dL Normal 0.66-1.25 [facility] Comment on above: Performed By: #### T SH, LIPID, CMP, PSAD, T4 #### [facility] [address] [place] [address] Wanda Anamaria EGFR-AF BRAZILIAN >60 Normal >=60 [facility] Comment on above: Performed By: #### T SH, LIPID, CMP, PSAD, T4 #### [facility] [address] [place] [address] Wanda Anamaria EGFR-NON AF BRAZILIAN >60 Normal >=60 [facility] Comment on above: Performed By: #### T SH, LIPID, CMP, PSAD, T4 #### [facility] [address] [place] [address] Wanda Anamaria Globulin (S) [Mass/Vol] 4.1 g/dL Normal [facility] Comment on above: Performed By: #### T SH, LIPID, CMP, PSAD, T4 #### [facility] [address] [place] [address] Wanda Anamaria Glucose [Mass/Vol] 231 mg/dL Critically high 74-106 [facility] Comment on above: Performed By: #### T SH, LIPID, CMP, PSAD, T4 #### [facility] [address] [place] [address] Wanda Anamaria Potassium [Moles/Vol] 3.7 mmol/L Normal 3.4-5.0 [facility] Comment on above: Performed By: #### T SH, LIPID, CMP, PSAD, T4 #### [facility] [address] [address] Wanda Anamaria Protein [Mass/Vol] 7.3 g/dL Normal 6.1-8.2 [facility] Comment on above: Performed By: #### T SH, LIPID, CMP, PSAD, T4 #### [facility] [address] [place] [address] Wanda Anamaria Sodium [Moles/Vol] 134 mmol/L Critically low 137-145 [facility] Comment on above: Performed By: #### T SH, LIPID, CMP, PSAD, T4 #### [facility] [address] [place] [address] Wanda Anamaria Urea nitrogen [Mass/Vol] 22.0 mg/dL Critically high 9.0-20.0 [facility] Comment on above: Performed By: #### T SH, LIPID, CMP, PSAD, T4 #### [facility] [address] [place] [address] Wandavanda Conrad Urea nitrogen/Creatinine [Mass ratio] 24.2 mg/mg Normal [facility] Comment on above: Performed By: #### T SH, LIPID, CMP, PSAD, T4 #### [facility] [address] [place] [address] Wanda Conrad SALICYLATEon 11-25-2019 SALICYLATE 1.3 mg/dL Normal <=20.0 [facility] Comment on above: Performed By: #### T SH, LIPID, CMP, PSAD, T4 #### [facility] [address] [place], [place] [id number] Wanda Anamaria XR CHEST 1 Von 11-25-2019 [...] EFRA MARRERO Date: 2019-11-25 01:51 Normal [facility] XR PELVIS 1_2 VIEWSon 2019 XR PELVIS [...] EFRA MARRERO Date: 2019-11-25 01:52 Normal [address] [facility] CBC AUTO DIFFon 10-18-2019 BASO # 0.1 103/ul Normal 0.0-0.1 [facility] Comment on above: Performed By: #### C BC #### [facility] [address] [place], [place] [id number] Wanda Anamaria Basophils/100 WBC (Bld) 0.6 % Normal 0.2-2.0 [facility] Comment on above: Performed By: #### C BC #### [facility] [address] [place], [place] [address] Wanda Anamaria EO # 0.2 103/ul Normal 0.0-0.7 [facility] Comment on above: Performed By: #### C BC #### [facility] [address] [place], [place] [address] Wanda Anamaria Eosinophils/100 WBC (Bld) 1.7 % Normal 0.9-7.0 [facility] Comment on above: Performed By: #### C BC #### [facility] [address] [place], [place] [address] Wanda Anamaria Erythrocyte distribution width (RBC) [Ratio] 14.4 % Normal 11.0-15.0 [facility] Comment on above: Performed By: #### C BC #### [facility] [address] [place] [address] Wanda Anamaria Hematocrit (Bld) [Volume fraction] 44.2 % Normal 42.0-54.0 [facility] Comment on above: Performed By: #### C BC #### [facility] [address] [id number] Wanda Anamaria Hemoglobin (Bld) [Mass/Vol] 13.9 g/dL Critically low 14.0-18.0 [facility] Comment on above: Performed By: #### C BC #### [facility] [address] [address] Wanda Anamaria IG # 0.04 10e3/ul Critically high 0.00-0.03 [facility] Comment on above: Performed By: #### C BC #### [facility] [address] [address] Wanda Anamaria IG % 0.4 % Normal 0.0-0.[address] [facility] Comment on above: Performed By: #### C BC #### [facility] [address] [place] [address] Wanda Anamaria LYMPH # 2.8 103/ul Normal 1.2-3.[address] [facility] Comment on above: Performed By: #### C BC #### [facility] [address] [place], [place] [address] Wanda Anamaria Lymphocytes/100 WBC (Bld) 28.2 % Normal 20.5-60.0 [facility] Comment on above: Performed By: #### C BC #### [facility] [address] [place], [place] [address] Wanda Anamaria MANUAL DIFF REQ NO Normal [facility] Comment on above: Performed By: #### C BC #### [facility] [address] [place], [place] [address] Wanda Anamaria MCH (RBC) [Entitic mass] 25.9 pg Normal 25.9-34.[address] [facility] Comment on above: Performed By: #### C BC #### [facility] [address] [place], [place] [address] Wanda Anamaria MCHC (RBC) [Mass/Vol] 31.4 g/dL Normal 29.9-35.[address] [facility] Comment on above: Performed By: #### C BC #### [facility] [address] [place], [place] [address] Wanda Anamaria MCV (RBC) [Entitic vol] 82.3 fL Normal 80.0-94.[address] [facility] Comment on above: Performed By: #### C BC #### [facility] [address] [address] Wandavanda Antoineen MONO # 0.5 103/ul Normal 0.3-0.[address] [facility] Comment on above: Performed By: #### C BC #### [facility] [address] [address] Wanda Anamaria Monocytes/100 WBC (Bld) 5.2 % Normal 1.7-12.[address] [facility] Comment on above: Performed By: #### C BC #### [facility] [address] [place] [address] Wanda Anamaria NEUT # 6.4 103/ul Normal 1.4-6.[address] [facility] Comment on above: Performed By: #### C BC #### [facility] [address] [place], [place] [address] Wanda Anamaria Neutrophils/100 WBC (Bld) 63.9 % Normal 43.0-75.[address] [facility] Comment on above: Performed By: #### C BC #### [facility] [address] [place], [place] [address] Wandavanda Conrad Platelet mean volume (Bld) [Entitic vol] 10.5 fL Normal 9.5-13.[address] [facility] Comment on above: Performed By: #### C BC #### [facility] [address] [place], [place] [address] Wanda Anamaria PLT 281 103/ul Normal 150-[address] [facility] Comment on above: Performed By: #### C BC #### [facility] [address] [place], [place] [address] Wanda Anamaria RBC 5.37 106/ul Normal 4.70-6.[address] [facility] Comment on above: Performed By: #### C BC #### [facility] [address] [place], [place] [address] Wanda Anamaria WBC 10.0 103/ul Normal 4.0-11.0 [facility] Comment on above: Performed By: #### C BC #### [facility] [address] [address] Wanda Anamaria GLYCOHEMOGLOBIN A1Con 2019 Glucose [Mass/Vol] 163 mg/dL Normal [facility] Comment on above: Performed By: #### T SH, LIPID, CMP, PSAD, T4 #### [facility] [address] [address] Wanda Anamaria HbA1c (Bld) [Mass fraction] 7.3 % Critically high <=6.0 [facility] Comment on above: Performed By: #### T SH, LIPID, CMP, PSAD, T4 #### [facility] [address] [place] [address] Wanda Anamaria LIPID PROFILEon 10-18-2019 CHOL-HDL RATIO NORM SEE BELOW Normal [facility] Comment on above: Result Comment: 3.3 - 4.4 LOW RISK 4.4 - 7.1 AVERAGE RISK 7.1 - 11.0 MODERATE RISK >11.0 HIGH RISK Performed By: #### T SH, LIPID, CMP, PSAD, T4 #### [facility] [address] [place], [place] [address] Wanda Anamaria Cholesterol [Mass/Vol] 130 mg/dL Normal <=200 [facility] Comment on above: Performed By: #### T SH, LIPID, CMP, PSAD, T4 #### [facility] [address] [place], [place] [address] Wanda Anamaria Cholesterol in HDL [Mass/Vol] 32 mg/dL Normal [facility] Comment on above: Performed By: #### T SH, LIPID, CMP, PSAD, T4 #### [facility] [address] [id number] Wanda Anamaria Cholesterol in LDL [Mass/Vol] 76.6 mg/dL Normal [facility] Comment on above: Performed By: #### T SH, LIPID, CMP, PSAD, T4 #### [facility] [address] [place], [place] [address] Wanda Anamaria Cholesterol.total/Cho lesterol in HDL [Mass ratio] 4.1 {ratio} Normal [facility] Comment on above: Performed By: #### T SH, LIPID, CMP, PSAD, T4 #### [facility] [address] [id number] Wanda Anamaria HDL NORMAL > or = 60 mg/dl - LOW CARDIOVASCULAR RISK <40 mg/dl - HIGH CARDIOVASCULAR RISK Normal [facility] Comment on above: Performed By: #### T SH, LIPID, CMP, PSAD, T4 #### [facility] [address] [address] Wandavanda Conrad LDL CALC NORMAL SEE BELOW Normal [facility] Comment on above: Result Comment: <100 mg/dl OPTIMAL 100 - 129 mg/dl NEAR OR ABOVE OPTIMAL 130 - 159 mg/dl BORDERLINE HIGH 160 - 189 mg/dl HIGH >190 mg/dl VERY HIGH Performed By: #### T SH, LIPID, CMP, PSAD, T4 #### [facility] [address] [address] Wanda Anamaria Triglyceride [Mass/Vol] 107 mg/dL Normal <=150 [facility] Comment on above: Performed By: #### T SH, LIPID, CMP, PSAD, T4 #### [facility] [address] [address] Wandavanda Conrad VLDL CALC 21.4 mg/dL Normal [facility] Comment on above: Performed By: #### T SH, LIPID, CMP, PSAD, T4 #### [facility] [address] [address] Wandavanda Conrad MICROALBUMIN, RAND URon 09-28 mALB <1.3 Normal <=30.0 [facility] Comment on above: Performed By: #### M ALBR #### [facility] [address] [place], [place] [address] Wandavanda Conrad mALBH PLEASE NOTE: NORMAL RANGE CHANGE, TESTING PERFORMED AT [facility]. Normal [facility] Comment on above: Performed By: #### M ALBR #### [facility] [address] [place], [place] [address] Wanda Conrad PROF 14(COMP METB)on 020 Albumin [Mass/Vol] 3.5 g/dL Normal 3.5-5.0 [facility] Comment on above: Performed By: #### T SH, LIPID, CMP, PSAD, T4 #### [facility] [address] [place], [place] [address] Wanda Anamaria Albumin/Globulin [Mass ratio] 0.8 {ratio} Normal [facility] Comment on above: Performed By: #### T SH, LIPID, CMP, PSAD, T4 #### [facility] [address] [place], [place] [address] Wanda Anamaria ALP [Catalytic activity/Vol] 103 U/L Normal 38-126 [facility] Comment on above: Performed By: #### T SH, LIPID, CMP, PSAD, T4 #### [facility] [address] [place] [address] Wanda Anamaria ALT [Catalytic activity/Vol] 21 U/L Normal 21-72 [facility] Comment on above: Performed By: #### T SH, LIPID, CMP, PSAD, T4 #### [facility] [address] [place] [address] Wanda Anamaria Anion gap [Moles/Vol] 13.9 mmol/L Normal [facility] Comment on above: Performed By: #### T SH, LIPID, CMP, PSAD, T4 #### [facility] [address] [place], [place] [address] Wanda Anamaria AST [Catalytic activity/Vol] 18 U/L Normal 17-59 [facility] Comment on above: Performed By: #### T SH, LIPID, CMP, PSAD, T4 #### [facility] [address] [place], [place] [address] Wanda Anamaria Bilirubin [Mass/Vol] 0.5 mg/dL Normal 0.2-1.[address] [facility] Comment on above: Performed By: #### T SH, LIPID, CMP, PSAD, T4 #### [facility] [address] [place], [place] [address] Wanda Anamaria Calcium [Mass/Vol] 8.9 mg/dL Normal 8.4-10.2 [facility] Comment on above: Performed By: #### T SH, LIPID, CMP, PSAD, T4 #### [facility] [address] [place] [address] Wanda Anamaria Chloride [Moles/Vol] 100 mmol/L Normal 98-[address] [facility] Comment on above: Performed By: #### T SH, LIPID, CMP, PSAD, T4 #### [facility] [address] [place] [address] Wanda Anamaria CO2 [Moles/Vol] 28.2 mmol/L Normal 22.0-30.0 [facility] Comment on above: Performed By: #### T SH, LIPID, CMP, PSAD, T4 #### [facility] [address] [place] [address] Wanda Anamaria Creatinine [Mass/Vol] 1.08 mg/dL Normal 0.66-1.25 [facility] Comment on above: Performed By: #### T SH, LIPID, CMP, PSAD, T4 #### [facility] [address] [place] [address] Wanda Anamaria EGFR-AF BRAZILIAN >60 Normal >=60 [facility] Comment on above: Performed By: #### T SH, LIPID, CMP, PSAD, T4 #### [facility] [address] [place] [address] Wanda Anamaria EGFR-NON AF BRAZILIAN >60 Normal >=60 [facility] Comment on above: Performed By: #### T SH, LIPID, CMP, PSAD, T4 #### [facility] [address] [place] [address] Wanda Anamaria Globulin (S) [Mass/Vol] 4.6 g/dL Normal [facility] Comment on above: Performed By: #### T SH, LIPID, CMP, PSAD, T4 #### [facility] [address] [place] [address] Wanda Anamaria Glucose [Mass/Vol] 129 mg/dL Critically high 74-106 [facility] Comment on above: Performed By: #### T SH, LIPID, CMP, PSAD, T4 #### [facility] [address] [place], [place] [address] Wanda Anamaria Potassium [Moles/Vol] 4.1 mmol/L Normal 3.4-5.[address] [facility] Comment on above: Performed By: #### T SH, LIPID, CMP, PSAD, T4 #### [facility] [address] [place], [place] [address] Wanda Anamaria Protein [Mass/Vol] 8.1 g/dL Normal 6.1-8.2 [facility] Comment on above: Performed By: #### T SH, LIPID, CMP, PSAD, T4 #### [facility] [address] [place], [place] [address] Wanda Anamaria Sodium [Moles/Vol] 138 mmol/L Normal 137-145 [facility] [facility] Comment on above: Performed By: #### T SH, LIPID, CMP, PSAD, T4 #### [facility] [address], [place] [address] Wanda Anamaria Urea nitrogen [Mass/Vol] 34.0 mg/dL Critically high 9.0-20.0 [facility] Comment on above: Performed By: #### T SH, LIPID, CMP, PSAD, T4 #### [facility] [address], [place] [address] Wanda Anamaira Urea nitrogen/Creatinine [Mass ratio] 31.5 mg/mg Normal [facility] Comment on above: Performed By: #### T SH, LIPID, CMP, PSAD, T4 #### [facility] [address], [place] [address] Wanda Anamaria Encounters Encounter Date Encounter Type Care Provider Facility Start: 09-08-2023 End: 09-08-2023 ambulatory [facility] Start: 09-07-2023 End: 09-07-2023 ambulatory [facility] Start: 06-17-2023 Telephone encounter Kaveh rivera DO Work Phone: [facility] Comment on above: Refund Checks Start: 04-11-2023 End: 04-11-2023 ambulatory K[facility] Not Available Start: 07-13-2021 End: 07-29-2021 ambulatory Devang Birch Facility:[facility] Start: 10-09-2020 Encounter for genera l adult medical examination without abnormal findings DR DEVANG BIRCH [facility] Start: 10-01-2020 End: 10-02-[address] DEVANG [...] T SH, LIPID, CMP, PSAD, T4 #### [facility] [address] [place] [address] Wanda Conrad Payers Date Payer Category Payer Medicare [facility] MEDICARE ADVANTAGE [facility] MEDICARE ADVANTAGE [id number] 2021-Present [address] [place] [address] [id number] 2021 Self-pay 1965 Unknown [id number] 1965 Unknown [id number] 1965 Unknown [id number] 1965 Unknown [id number] 1964 Unknown [id number] 9 1964 Unknown [id number] 6 1965 Unknown [id number] 6 1959 Unknown [id number] Unknown Unknown [id number] Social History Date Type Detail Facility Start: [...] that he received two refund checks from [employer]. He deposited the checks and then was told from his bank that they bounced. If you could look into this for me please, all I am seeing is that the refunds were sent out. Call back # [phone] [facility] Note 06-17-2023 Telephone Encounter - [facility] July - 06/17/2023 9:18 AM EST Note Date & Type Note Facility 06-17-2023 Miscellaneous Notes Formattin g of this note might be different from the original. Sarah, patient called stated that he received two refund checks from [employer]. He deposited the checks and then was told from his bank that they bounced. If you could look into this for me please, all I am seeing is that the refunds were sent out. Call back # [phone] documented in this encounter [facility] Summary [...] DATE CREATED AUTHOR AUTHOR'S ORGANIZ ATION 07/03/2022 [facility] DATE CREATED AUTHOR AUTHOR'S ORGANIZ ATION 04/12/2023 [facility] EPIC DATE CREATED AUTHOR AUTHOR'S ORGANIZ ATION 09/08/2023 [facility] DATE CREATED AUTHOR AUTHOR'S ORGANIZ ATION 09/09/2023 [facility] Reason for Visit (unrecogniz ed section and content) Reason Onset Date Comments Refund Checks 06/17/2023 Care Teams (unrecognized sec tion and content) Ammonia Box Tender Relationship Specialty Start Date End Date Merritt Thacker MD [address] [place] [address] PCP - General Internal Medicine 03/28/23 FOR [...] BE BASED ON THE PRIMARY CLINICAL RECORDS. [employer] provides no warranty or guarantee of the accuracy or completeness of information in this document.
--- NOTE | 2023-12-19 13:09 | CM.DCFOLLOWU ---
1st attempt 12/19/23
--- NOTE | 2023-12-20 11:37 | CM.DCFOLLOWU ---
Person spoke with: patient How are you feeling? well How is your pain? none Did you understand your discharge instructions? yes Do you have any questions about your discharge instructions? no Were you given any prescriptions at discharge? yes Were you able to get your prescriptions filled? yes Do you understand how to take your medications as ordered? yes Do you have any questions about your follow up appointment and do you plan to keep your follow up appointment? no questions, will call Dr. Woo today to schedule follow up Is there anything else that you would like to discuss? no Questions/Comments/Concerns/Other: none
== END 2023-12-18 13:40 | disposition home or self-care (01) | DRG 291 ==
LOC: ER 09:10 → MS 10:33
PROVIDERS: Family Medicine; Admitting Provider Family Medicine; Emergency Provider Emergency Medicine; PCP Internal Medicine; Visit Provider Family Medicine
DX: I13.0 Hypertensive heart and chronic kidney disease with heart failure and stage 1 through stage 4 chronic kidney disease, or unspecified chronic kidney disease (principal); I50.41 Acute combined systolic (congestive) and diastolic (congestive) heart failure; J96.01 Acute respiratory failure with hypoxia; E44.0 Moderate protein-calorie malnutrition; J81.1 Chronic pulmonary edema; J44.0 Chronic obstructive pulmonary disease with (acute) lower respiratory infection; J44.1 Chronic obstructive pulmonary disease with (acute) exacerbation; Z68.45 Body mass index [BMI] 70 or greater, adult; I43 Cardiomyopathy in diseases classified elsewhere; E66.01 Morbid (severe) obesity due to excess calories; I87.2 Venous insufficiency (chronic) (peripheral); J20.9 Acute bronchitis, unspecified; N18.30 Chronic kidney disease, stage 3 unspecified; E11.22 Type 2 diabetes mellitus with diabetic chronic kidney disease; E11.8 Type 2 diabetes mellitus with unspecified complications; D63.1 Anemia in chronic kidney disease; E83.42 Hypomagnesemia; R79.89 Other specified abnormal findings of blood chemistry; Z79.84 Long term (current) use of oral hypoglycemic drugs
CPT/HCPCS: 36415; 71045; 80053; 81001; 82948; 83605; 83735; 83880; 84436; 84443; 84481; 84484; 85025; 87070; 87086; 93005; 93306; 94640; 94667; 94668; 94761; 96365; 96366; 96368; 96372; 96375; 97165; 99285; J1650; J1940; J3475

== ENCOUNTER 2024-01-02 16:32 | Inpatient (IN) | payer MEDICARE, SELFPAY ==
[2024-01-02] VITALS (18 sets, daily range): BP systolic 122–143; BP diastolic 75–82; PULSE 77–94; TEMP 36.2–36.9; O2SAT 92–96; BMI 106.4; BMI 75.4
[2024-01-02 16:53] LABS: Glucometer 122 mg/dL (74-106)
--- NOTE | 2024-01-02 16:57 | XR_ITS ---
The [address] [address] Patient Name: TANIA SANTANA MRN: [id number] date: 1965 Sex: M Assigned Patient Location: ER Current Patient Location: ER Accession/Order Number: [id number] Exam Date: 01/02/2024 17:20 Report Date: 01/02/2024 18:35 At the request of: MISTI GALAN Procedure: XR chest 1V EXAM: XR chest 1V HISTORY: shortness of breath COMPARISON: 12/16/2023 TECHNIQUE: AP upright portable chest x-ray FINDINGS: The study is limited by projection, the patient's body habitus and shallow inspiration. The heart is enlarged with prominence of the central pulmonary vasculature. There is no clear evidence of an acute infiltrate, effusion or pneumothorax. The osseous structures are grossly intact. XR/XR chest 1V IMPRESSION: Limited study. Cardiomegaly without overt cardiac decompensation. There is no clear evidence of a focal infiltrate in the overall appearance has probably not changed significantly. A follow-up study encouraging the patient to take a deep inspiration in the fully upright position is recommended. Electronically authenticated by: FIDEL POON Date: 01/02/2024 18:35
--- NOTE | 2024-01-02 16:57 | ECG_ITS ---
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
[2024-01-02 17:09] LABS: Basophils Percent Auto 0.5 % (0.2-2.0); Eosinophils Absolute Auto 0.1 10^3/uL (0.0-0.7); Eosinophils Percent Auto 1.5 % (0.9-7.0); Hematocrit 37.5 % (42.0-54.0); Hemoglobin 11.8 g/dL (14.0-18.0); Immature Granulocytes Abs Auto 0.02 10^3/uL (0.00-0.03); Immature Granulocytes Pct Auto 0.2 % (0.0-0.5); Lymphocytes Absolute Auto 1.4 10^3/uL (1.2-3.8); Lymphocytes Percent Auto 17.9 % (20.5-60.0); Mean Corpuscular HGB Conc 31.5 g/dL (29.9-35.2); Mean Corpuscular Hemoglobin 26.5 pg (25.9-34.0); Mean Corpuscular Volume 84.1 fL (80.0-94.0); Mean Platelet Volume 10.8 fL (9.5-13.5); Monocytes Absolute Auto 0.5 10^3/uL (0.3-0.8); Monocytes Percent Auto 6.2 % (1.7-12.0); Neutrophils Absolute Auto 5.9 10^3/uL (1.4-6.5); Neutrophils Percent Auto 73.7 % (43.0-75.0); Platelet Count 250 10^3/uL (150-450); Red Blood Count 4.46 10^6/uL (4.70-6.10); Red Cell Distribution Width 15.2 % (11.0-15.0)
[2024-01-02 17:24] LABS: INR 1.15; Partial Thromboplastin Time 27.8 sec (22.3-36.2)
[2024-01-02 17:31] LABS: Anion Gap 10.5; BUN Creatinine Ratio 16.8; Calcium 8.4 mg/dL (8.5-10.1); Carbon Dioxide 29.8 mmol/L (21.0-32.0); Chloride 104 mmol/L (98-107); Estimated GFR (African America 59 (>=60); Estimated GFR (Non-African Ame 48 (>=60); Glucose 126 mg/dL (74-106); Potassium 4.3 mmol/L (3.5-5.1); Sodium 140 mmol/L (136-145); Troponin I High Sensitivity 11.6 pg/mL (4.0-76.1)
[2024-01-02] MEDS: FUROSEMIDE 40 MG/4 ML VIAL IVP (18:10)
--- NOTE | 2024-01-02 18:35 | ED_ITS ---
HPI - SOB/Dyspnea General Chief Complaint: Shortness of Breath/Dyspnea Stated Complaint: WEAKNESS, POSS HEART/KIDNEY FAILURE Time Seen by Provider: 01/02/24 16:53 Source: patient Mode of arrival: walk-in Limitations: physical limitation History of Present Illness HPI Narrative: 58-year-old male to the emergency department chief complaint of shortness of breath. Patient was told to come to the emergency department today to be admitted for diuresis by his primary care doctor. Patient has history of congestive heart failure. He did have an admission in the middle of November for several days for diuresis. He reports he has had increasing weight, increasing lower extremity edema and now increasing shortness of breath refractory to his Bumex at home. He denies any chest pain. Denies any cough, fever, sweats, chills. Related Data Home Medications ?Medication ?Instructions ?Recorded ?Confirmed metformin 1,000 mg tablet 1,000 mg PO BID 12/16/23 12/16/23 semaglutide 7 mg tablet (Rybelsus) 7 mg PO DAILY 12/16/23 12/16/23 sitagliptin phosphate 100 mg 100 mg PO DAILY 12/16/23 12/16/23 tablet (Januvia) Previous Rx's ?Medication ?Instructions ?Recorded albuterol sulfate 90 mcg/actuation 2 inh inhalation Q4H PRN shortness 12/18/23 aerosol inhaler of breath or wheezing #6.7 grams benzonatate 100 mg capsule 200 mg (2 x 100 mg) PO Q8H PRN 12/18/23 Cough 3 days #6 caps bumetanide 1 mg tablet 1 mg PO DAILY 15 days #15 tabs 12/18/23 isosorbide mononitrate 30 mg 30 mg PO Q24H 15 days #15 tabs 12/18/23 tablet,extended release 24 hr levofloxacin 750 mg tablet 750 mg PO DAILY 3 days #3 tabs 12/18/23 metoprolol tartrate 25 mg tablet 25 mg PO BID 15 days #30 tabs 12/18/23 Allergies Allergy/AdvReac Type Severity Reaction Status Date / Time topiramate [From Topamax] AdvReac Intermediate Altered Verified 12/16/23 07:22 Sense of Taste Review of Systems ROS Status of ROS 10 or more systems reviewed and unremark able except as noted in history and below [facility] Medical History (Updated 01/02/24 @ 18:48 by Trevor Azevedo MD) Diabetes mellitus type 2 with complications ?E11.8 - Type 2 diabetes mellitus with unspecified complications (ICD-10) Anemia in chronic kidney disease ?N18.9 - Chronic kidney disease, unspecified (ICD-10) ?D63.1 - Anemia in chronic kidney disease (ICD-10) Chronic kidney disease, stage III (moderate) ?N18.30 - Chronic kidney disease, stage 3 unspecified (ICD-10) COPD (chronic obstructive pulmonary disease) ?J44.9 - Chronic obstructive pulmonary disease, unspecified (ICD-10) Moderate protein-calorie malnutrition ?E44.0 - Moderate protein-calorie malnutrition (ICD-10) Hypertension ?I10 - Essential (primary) hypertension (ICD-10) Pulmonary edema ?J81.1 - Chronic pulmonary edema (ICD-10) Anasarca ?R60.1 - Generalized edema (ICD-10) Abnormal colonoscopy ?R93.3 - Abnormal findings on diagnostic imaging of other parts of digestive tract (ICD-10) Surgical History (Updated 12/16/23 @ 10:47 by Morena Jose LPN) History of appendectomy ?Z90.49 - Acquired absence of other specified parts of digestive tract (ICD- 10) Social History (Updated 12/16/23 @ 10:47 by Morena Jose LPN) Within the past year, how often did you have a drink containing alcohol: never Within the past year, how many standard drinks containing alcohol did you have on a typical day: 1 or 2 Total score: 0 Score interpretation: A score less than 4 is consistent with normal alcohol consumption. Smoking status: Never smoker Second hand tobacco smoke exposure: No Non-prescribed substance use: denies use Previous occupational history: retired Highest level of school completed/degree received: high school graduate Are you now , , , , never or living with a partner: never In a typical week, how many times do you talk on the telephone with family, friends, or neighbors: 3 or more times per week How often do you get together with friends or relatives: 3 or more times per week How often do you attend zoroastrian or taoism services: never Do you belong to any clubs or organizations such as zoroastrian groups unions, fraternal or athletic groups, or school groups: no Total score: 1 Score interpretation: A score of less than or equal to 1 indicates the most socially isolated. Little interest or pleasure in doing things: not at all Feeling down, depressed, or hopeless: not at all Feel stressed/tense/nervous/anxious/difficulty sleeping: not at all Due to disability, difficulty making decisions: No Do you think of yourself as: straight/heterosexual Gender Identity: male Exam Narrative Exam Narrative: VITALS: I have reviewed the triage vital signs. GENERAL: Morbidly obese, mild respiratory distress. NEURO: Alert and oriented. Moves all extremities. Face is symmetric and expressive. EYES: PERRL. No scleral icterus or conjunctival injection. No discharge. HENT: Normocephalic, atraumatic. Hearing is grossly intact. Nares grossly patent and without discharge. Mucous membranes moist. NECK: Normal range of motion. CARDIO: Rhythm regular. Normal rate. No murmur, rub, or gallop. Pulses equal bilaterally in the upper and lower extremity. 2+ pitting edema. PULM: Mild conversational dyspnea. Mild increased work of breathing. Rales. GI/: Abdomen is soft and non-tender. Normoactive bowel sounds. EXTREMITIES: Symmetric muscle bulk. No joint swelling. No clubbing, cyanosis, or deformity. SKIN: Warm and dry. Normal turgor. No rash or lesions appreciated. PSYCH: Mood, affect, and interaction is appropriate to the setting. Constitutional Vital Signs, click to edit/add: Last Vital Signs Temp 98.4 F 01/02/24 16:46 Pulse 83 01/02/24 16:46 Resp 30 H 01/02/24 16:46 BP 133/79 01/02/24 18:10 Pulse Ox 95 01/02/24 16:46 O2 Del Method Room Air 01/02/24 16:46 Course Vital Signs Vital signs: Vital Signs Temperature 98.4 F 01/02/24 16:46 Pulse Rate 83 01/02/24 16:46 Respiratory Rate 30 H 01/02/24 16:46 Blood Pressure 133/79 01/02/24 16:46 Pulse Oximetry 95 01/02/24 16:46 Oxygen Delivery Method Room Air 01/02/24 16:46 Temperature 98.4 F 01/02/24 16:46 Pulse Rate 83 01/02/24 16:46 Respiratory Rate 30 H 01/02/24 16:46 Blood Pressure 133/79 01/02/24 18:10 Pulse Oximetry 95 01/02/24 16:46 Oxygen Delivery Method Room Air 01/02/24 16:46 MDM - SOB/Dyspnea MDM Narrative Medical decision making narrative: 58-year-old male to the emergency department chief complaint shortness of breath. Vital stable, the patient is afebrile. He does have had some increased work of breathing. Clinically he does appear volume overloaded. CHF workup is initiated. Lab work reviewed and. His BNP is elevated. Troponin is normal. Kidney function is at his baseline. Lasix dose given. Chest x-ray cardiomegaly, no other overt findings. Patient will be admitted to the hospital for CHF exacerbation. Case to discussed with the hospitalist. Medical Records Attestation: I reviewed the patient's medical records. Lab Data Attestation: I reviewed the patient's lab results. Labs: Lab Results 01/02/24 01/02/24 Range/Units 16:45 16:54 WBC 8.0 (4.0-11.0) 10^3/uL RBC 4.46 L (4.70-6.10) 10^6/uL Hgb 11.8 L (14.0-18.0) g/dL Hct 37.5 L (42.0-54.0) % MCV 84.1 (80.0-94.0) fL MCH 26.5 (25.9-34.0) pg MCHC 31.5 (29.9-35.2) g/dL RDW 15.2 H (11.0-15.0) % Plt Count 250 (150-450) 10^3/uL MPV 10.8 (9.5-13.5) fL Neut % (Auto) 73.7 (43.0-75.0) % Lymph % (Auto) 17.9 L (20.5-60.0) % [place] % (Auto) 6.2 (1.7-12.0) % Eos % (Auto) 1.5 (0.9-7.0) % Baso % (Auto) 0.5 (0.2-2.0) % Neut # (Auto) 5.9 (1.4-6.5) 10^3/uL Lymph # (Auto) 1.4 (1.2-3.8) 10^3/uL [place] # (Auto) 0.5 (0.3-0.8) 10^3/uL Eos # (Auto) 0.1 (0.0-0.7) 10^3/uL Baso # (Auto) 0.0 (0.0-0.1) 10^3/uL Abs Immat Gran (auto) 0.02 (0.00-0.03) 10^3/uL Imm/Tot Granulo (auto) 0.2 (0.0-0.5) % PT 12.0 H (9.0-11.6) sec INR 1.15 APTT 27.8 (22.3-36.2) sec Sodium 140 (136-145) mmol/L Potassium 4.3 (3.5-5.1) mmol/L Chloride 104 (98-107) mmol/L Carbon Dioxide 29.8 (21.0-32.0) mmol/L Anion Gap 10.5 BUN 25.0 H (7.0-18.0) mg/dL Creatinine 1.49 H (0.70-1.30) mg/dL Est GFR ( Amer) 59 L (>=60) Est GFR (Non-Af Amer) 48 L (>=60) BUN/Creatinine Ratio 16.8 Glucose 126 H (74-106) mg/dL Calcium 8.4 L (8.5-10.1) mg/dL Troponin I High Sens 11.6 (4.0-76.1) pg/mL NT-Pro-B Natriuret Pep 7176.0 H* (<=900.0) pg/mL POC Glucose 122 H (74-106) mg/dL Imaging Data Chest x-ray: Attestation: I have reviewed the pertinent imaging results. Radiologist's impression: ITS Impressions Chest X-Ray 01/02/24 16:57 IMPRESSION: Limited study. Cardiomegaly without overt cardiac decompensation. There is no clear evidence of a focal infiltrate in the overall appearance has probably not changed significantly. A follow-up study encouraging the patient to take a deep inspiration in the fully upright position is recommended. Electronically authenticated by: FIDEL POON Date: 01/02/2024 18:35 ECG Data Attestation: I personally reviewed and interpreted this ECG as follows: (NSR 85. No STEMI. Normal QTC. ) Discharge Plan Discharge Chief Complaint: Shortness of Breath/Dyspnea Clinical Impression: Acute combined systolic (congestive) and diastolic (congestive) heart failure Patient Disposition: Admitted as Observation Time of Disposition Decision: 18:45 Condition: Fair Prescriptions / Home Meds: No Action Januvia 100 mg tablet 100 mg PO DAILY Rybelsus 7 mg tablet 7 mg PO DAILY metformin 1,000 mg tablet 1,000 mg PO BID isosorbide mononitrate 30 mg Tablet Extended Release 24 Hr 30 mg PO Q24H 15 Days Qty: 15 0RF benzonatate 100 mg Capsule 200 mg PO Q8H PRN (Reason: Cough) 3 Days Qty: 6 0RF bumetanide 1 mg Tablet 1 mg PO DAILY 15 Days Qty: 15 0RF metoprolol tartrate 25 mg Tablet 25 mg PO BID 15 Days Qty: 30 0RF albuterol sulfate 90 mcg/actuation HFA aerosol inhaler 2 inh inhalation Q4H PRN (Reason: shortness of breath or wheezing) Qty: 6.7 0RF levofloxacin 750 mg tablet 750 mg PO DAILY 3 Days Qty: 3 0RF Print Language: Kinyarwanda Referrals: MERRITT THACKER [Primary Care Provider] - 1 week
[2024-01-02 21:52] LABS: Glucometer 113 mg/dL (74-106)
[2024-01-02] MEDS: ENOXAPARIN SODIUM 40 MG/0.4 ML SYRINGE SUBQ (21:58)
[2024-01-03] VITALS (20 sets, daily range): BP systolic 107–127; BP diastolic 68–85; PULSE 66–85; TEMP 36.2–36.8; O2SAT 91–97
[2024-01-03 06:39] LABS: Basophils Percent Auto 0.5 % (0.2-2.0); Eosinophils Absolute Auto 0.1 10^3/uL (0.0-0.7); Eosinophils Percent Auto 1.7 % (0.9-7.0); Hematocrit 38.7 % (42.0-54.0); Hemoglobin 11.5 g/dL (14.0-18.0); Immature Granulocytes Abs Auto 0.01 10^3/uL (0.00-0.03); Immature Granulocytes Pct Auto 0.2 % (0.0-0.5); Lymphocytes Absolute Auto 1.7 10^3/uL (1.2-3.8); Lymphocytes Percent Auto 28.6 % (20.5-60.0); Mean Corpuscular HGB Conc 29.7 g/dL (29.9-35.2); Mean Corpuscular Hemoglobin 25.8 pg (25.9-34.0); Mean Platelet Volume 10.8 fL (9.5-13.5); Monocytes Absolute Auto 0.5 10^3/uL (0.3-0.8); Monocytes Percent Auto 7.8 % (1.7-12.0); Neutrophils Absolute Auto 3.6 10^3/uL (1.4-6.5); Neutrophils Percent Auto 61.2 % (43.0-75.0); Platelet Count 196 10^3/uL (150-450); Red Blood Count 4.45 10^6/uL (4.70-6.10); Red Cell Distribution Width 15.2 % (11.0-15.0); White Blood Count 5.9 10^3/uL (4.0-11.0)
[2024-01-03 06:56] LABS: Alanine Aminotransferase 17 U/L (16-63); Albumin Globulin Ratio 0.8; Albumin Level 2.9 g/dL (3.4-5.0); Alkaline Phosphatase 132 U/L (46-116); Aspartate Amino Transferase 18 U/L (15-37); BUN Creatinine Ratio 18.4; Bilirubin Total 1.1 mg/dL (0.2-1.0); Calcium 8.4 mg/dL (8.5-10.1); Carbon Dioxide 26.5 mmol/L (21.0-32.0); Chloride 105 mmol/L (98-107); Estimated GFR (African America >60 (>=60); Estimated GFR (Non-African Ame 54 (>=60); Globulin 3.7 g/dL; Glucose 170 mg/dL (74-106); Magnesium 1.8 mg/dL (1.8-2.4); Potassium 3.5 mmol/L (3.5-5.1); Sodium 142 mmol/L (136-145); Total Protein 6.6 g/dL (6.4-8.2)
[2024-01-03 07:13] LABS: Troponin I High Sensitivity 11.6 pg/mL (4.0-76.1)
[2024-01-03 07:17] LABS: Bilirubin Direct 0.4 mg/dL (0.0-0.2)
[2024-01-03 07:35] LABS: Glucometer 162 mg/dL (74-106)
[2024-01-03] MEDS: BUMETANIDE 1 MG/4 ML VIAL IVP (08:16)
[2024-01-03] MEDS: METOPROLOL TARTRATE 25 MG TABLET PO (08:16)
[2024-01-03] MEDS: ISOSORBIDE MONONITRATE 30 MG TAB.ER.24H PO (08:16)
[2024-01-03] MEDS: ENOXAPARIN SODIUM 40 MG/0.4 ML SYRINGE SUBQ (08:16)
[2024-01-03] MEDS: INSULIN ASPART 300 UNIT/3 ML PEN SUBQ ×3 (08:19→20:13)
--- NOTE | 2024-01-03 10:17 | PM.HP ---
HPI H&P: HPI History of Present Illness Chief complaint: WEAKNESS, POSS HEART/KIDNEY FAILURE CHF EXACERBATI Narrative: 58-year-old male with past medical history of congestive heart failure with reduced ejection fraction/preserved ejection fraction was seen by his PCP as outpatient yesterday and was instructed to come to ER for volume overload. Patient reports increasing lower extremity edema, weight gain, generalized anasarca with abdominal wall edema along with worsening shortness of breath. Patient was admitted overnight for acute on chronic combined (systolic and diastolic) was started on IV Bumex. Patient is morbidly obese, has poor insight into his congestive heart failure and also seems to have a pattern of noncompliance. He reports that he has been feeling increasingly short of breath for a for a week but he hoped that he would improve on its own so he did not seek medical care. Patient has +3 lower extremity edema, abdominal wall edema and generalized anasarca from volume overload and will require inpatient treatment of his acute on chronic congestive heart failure and anticipated to require 3 to 4 days of inpatient admission for IV diuresis, close hemodynamic monitoring. He will also need close monitoring of his renal function as he has had prior history of acute kidney injury with diuresis. Opioid HPI Opioid Management Most Recent Pain and Opioid Data: Last Pain Scale 5 12/17/23 22:52 Last Pain Assessment 01/03/24 09:00 Last ORT Total Score 0 01/02/24 20:12 Last ORT Risk Category Low Risk 01/02/24 20:12 Review of Systems ROS Status of ROS 10 or more systems reviewed and unremarkable except as noted in history and below [facility] Medical History (Updated 01/03/24 @ 10:37 by Shaikh Stormy MD) Diabetes mellitus type 2 with complications ?E11.8 - Type 2 diabetes mellitus with unspecified complications (ICD-10) Anemia in chronic kidney disease ?N18.9 - Chronic kidney disease, unspecified (ICD-10) ?D63.1 - Anemia in chronic kidney disease (ICD-10) Chronic kidney disease, stage III (moderate) ?N18.30 - Chronic kidney disease, stage 3 unspecified (ICD-10) COPD (chronic obstructive pulmonary disease) ?J44.9 - Chronic obstructive pulmonary disease, unspecified (ICD-10) Moderate protein-calorie malnutrition ?E44.0 - Moderate protein-calorie malnutrition (ICD-10) Hypertension ?I10 - Essential (primary) hypertension (ICD-10) Pulmonary edema ?J81.1 - Chronic pulmonary edema (ICD-10) Anasarca ?R60.1 - Generalized edema (ICD-10) Abnormal colonoscopy ?R93.3 - Abnormal findings on diagnostic imaging of other parts of digestive tract (ICD-10) Surgical History History of appendectomy ?Z90.49 - Acquired absence of other specified parts of digestive tract (ICD-10) Family History (Updated 01/02/24 @ 20:27 by Vale Caro RN) Father Diabetes Mother CHF (congestive heart failure) Social History Within the past year, how often did you have a drink containing alcohol: never Within the past year, how many standard drinks containing alcohol did you have on a typical day: 1 or 2 Total score: 0 Score interpretation: A score less than 4 is consistent with normal alcohol consumption. Smoking status: Never smoker Second hand tobacco smoke exposure: No Non-prescribed substance use: denies use Previous occupational history: retired Highest level of school completed/degree received: high school graduate Are you now , , , , never or living with a partner: never In a typical week, how many times do you talk on the telephone with family, friends, or neighbors: 3 or more times per week How often do you get together with friends or relatives: 3 or more times per week How often do you attend latter-day or hoahaoism services: never Do you belong to any clubs or organizations such as latter-day groups unions, fraternal or athletic groups, or school groups: no Total score: 1 Score interpretation: A score of less than or equal to 1 indicates the most socially isolated. Little interest or pleasure in doing things: not at all Feeling down, depressed, or hopeless: not at all Feel stressed/tense/nervous/anxious/difficulty sleeping: not at all Due to disability, difficulty making decisions: No Do you think of yourself as: straight/heterosexual Gender Identity: male Meds Home Medications and Allergies Home Medications ?Medication ?Instructions ?Recorded ?Confirmed ?Type metformin 1,000 mg tablet 1,000 mg PO BID 12/16/23 12/16/23 History semaglutide 7 mg tablet (Rybelsus) 7 mg PO DAILY 12/16/23 12/16/23 History sitagliptin phosphate 100 mg 100 mg PO DAILY 12/16/23 12/16/23 History tablet (Januvia) albuterol sulfate 90 mcg/actuation 2 inh inhalation Q4H PRN shortness 12/18/23 Rx aerosol inhaler of breath or wheezing #6.7 grams benzonatate 100 mg capsule 200 mg (2 x 100 mg) PO Q8H PRN 12/18/23 Rx Cough 3 days #6 caps bumetanide 1 mg tablet 1 mg PO DAILY 15 days #15 tabs 12/18/23 Rx isosorbide mononitrate 30 mg 30 mg PO Q24H 15 days #15 tabs 12/18/23 Rx tablet,extended release 24 hr levofloxacin 750 mg tablet 750 mg PO DAILY 3 days #3 tabs 12/18/23 Rx metoprolol tartrate 25 mg tablet 25 mg PO BID 15 days #30 tabs 12/18/23 Rx Allergies Allergy/AdvReac Type Severity Reaction Status Date / Time topiramate [From Topamax] AdvReac Intermediate Altered Verified 12/16/23 07:22 Sense of Taste Exam Constitutional Vital Signs, click to edit/add: Last Vital Signs Temp 97.3 F L 01/03/24 07:08 Pulse 70 01/03/24 09:55 Resp 20 01/03/24 08:35 BP 127/82 01/03/24 08:16 Pulse Ox 93 L 01/03/24 08:16 O2 Del Method Room Air 01/03/24 08:00 Common normals: oriented x3 General appearance: cooperative and comfortable Nutritional appearance: obese [facility] Common normals: normocephalic and head/scalp atraumatic Respiratory Common normals: normal respiratory effort and no use of accessory muscles Auscultation: diminished lung sounds Other: Conversational dyspnea noted on exam Cardio Common normals: regular rate, regular rhythm, S1 normal heart sound and S2 normal heart sound GI Common normals: Normal to inspection, nondistended, normoactive bowel sounds present, non-tender and no hepatosplenomegaly Other: Abdominal wall edema in lower abdominal region. Extremity Common normals: full ROM General: edema (+3 lower extremity edema bilaterally.) Neuro Common normals: oriented x3, moves all extremities and no focal motor deficits Psych Common normals: mental status grossly normal, thought process normal, denies homicidal ideation and denies suicidal ideation Results Labs Labs: Short CBC 01/02/24 01/03/24 Range/Units 16:54 05:27 WBC 8.0 5.9 (4.0-11.0) 10^3/uL Hgb 11.8 L 11.5 L (14.0-18.0) g/dL Hct 37.5 L 38.7 L (42.0-54.0) % Plt Count 250 196 (150-450) 10^3/uL BMP 01/02/24 01/03/24 16:54 05:27 Sodium 140 142 Potassium 4.3 3.5 Chloride 104 105 Carbon Dioxide 29.8 26.5 BUN 25.0 H 25.0 H Creatinine 1.49 H 1.36 H Glucose 126 H 170 H Calcium 8.4 L 8.4 L Liver Function 01/03/24 Range/Units 05:27 Total Bilirubin 1.1 H (0.2-1.0) mg/dL Direct Bilirubin 0.4 H (0.0-0.2) mg/dL AST 18 (15-37) U/L ALT 17 (16-63) U/L Alkaline Phosphatase 132 H (46-116) U/L Albumin 2.9 L (3.4-5.0) g/dL Assessment and Plan Assessment and Plan (1) Acute on chronic congestive heart failure: Assessment and Plan: Patient presents with acute on chronic combined systolic and diastolic heart failure. Volume overload on exam with elevated BNP, lower extremity edema and reports shortness of breath, orthopnea and PND. Started on Bumex overnight. Increase Bumex to 2 mg IV twice a day. Monitor intake/output put. Daily weights. Cardiology consulted. Started patient on carvedilol, losartan. Discontinue Imdur and Lopressor. Qualifiers: Heart failure type: combined systolic and diastolic Qualified Code(s): I50.43 - Acute on chronic combined systolic (congestive) and diastolic (congestive) heart failure (2) Anasarca: Assessment and Plan: Due to volume overload from congestive heart failure. On IV Bumex. Increase to 2 mg every 12 hours. (3) Diabetes mellitus type 2 with complications: Assessment and Plan: On oral hypoglycemics. Continue sliding scale insulin while inpatient. Monitor blood glucose. (4) Chronic kidney disease, stage III (moderate): Assessment and Plan: CKD3 based on previous labs. Will need close monitoring while on diuresis. Qualifiers: Chronic kidney disease stage 3 subtype: stage 3a (GFR 45-59) Qualified Code(s): N18.31 - Chronic kidney disease, stage 3a (5) COPD (chronic obstructive pulmonary disease): Assessment and Plan: Does not have a formal diagnosis. Continue with albuterol as needed Qualifiers: COPD type: unspecified COPD Qualified Code(s): J44.9 - Chronic obstructive pulmonary disease, unspecified (6) Hypertension: Assessment and Plan: Monitor blood pressure closely while being diuresed. Started on Coreg and losartan. Discontinue Lopressor and Imdur Qualifiers: Hypertension type: primary hypertension Qualified Code(s): I10 - Essential (primary) hypertension (7) Morbid obesity: Assessment and Plan: Discussed weight loss, lifestyle changes, increasing physical activity. Currently on GLP agonist as outpatient.
--- NOTE | 2024-01-03 11:23 | CM.NOTE ---
Rounds made with Dr. Burrows, discussed with pt about CHF and diuresing medications. Dr. Burrows discussed importance of f/u appointments with pt's health history. Pt admits to not going to f/u appointment after last discharge from hospital. Pt does not see a athletic field custodian at this time, Dr. Burrows will consult cardiology this admission for further recommendations.
--- NOTE | 2024-01-03 12:06 | CM.NOTE ---
Important Message From Medicare discussed with pt, pt verbalizes understanding and signs paper. Original given to pt and copy placed on pt's chart.
[2024-01-03 13:13] LABS: Glucometer 203 mg/dL (74-106)
[2024-01-03] MEDS: OXYCODONE HCL 5 MG TABLET PO (20:09)
[2024-01-03] MEDS: BUMETANIDE 1 MG/4 ML VIAL 2 MG IVP (20:09)
[2024-01-03] MEDS: CARVEDILOL 12.5 MG TABLET PO (20:10)
[2024-01-04] VITALS (18 sets, daily range): BP systolic 109–129; BP diastolic 67–83; PULSE 66–95; TEMP 36.3–36.4; O2SAT 91–96
[2024-01-04 06:26] LABS: Basophils Percent Auto 0.6 % (0.2-2.0); Eosinophils Absolute Auto 0.2 10^3/uL (0.0-0.7); Eosinophils Percent Auto 2.3 % (0.9-7.0); Hematocrit 35.6 % (42.0-54.0); Hemoglobin 10.8 g/dL (14.0-18.0); Immature Granulocytes Abs Auto 0.02 10^3/uL (0.00-0.03); Immature Granulocytes Pct Auto 0.3 % (0.0-0.5); Lymphocytes Absolute Auto 1.6 10^3/uL (1.2-3.8); Lymphocytes Percent Auto 23.1 % (20.5-60.0); Mean Corpuscular HGB Conc 30.3 g/dL (29.9-35.2); Mean Corpuscular Hemoglobin 25.7 pg (25.9-34.0); Mean Corpuscular Volume 84.6 fL (80.0-94.0); Mean Platelet Volume 10.6 fL (9.5-13.5); Monocytes Absolute Auto 0.5 10^3/uL (0.3-0.8); Monocytes Percent Auto 7.3 % (1.7-12.0); Neutrophils Absolute Auto 4.6 10^3/uL (1.4-6.5); Neutrophils Percent Auto 66.4 % (43.0-75.0); Platelet Count 201 10^3/uL (150-450); Red Blood Count 4.21 10^6/uL (4.70-6.10); Red Cell Distribution Width 15.1 % (11.0-15.0); White Blood Count 6.9 10^3/uL (4.0-11.0)
[2024-01-04 06:55] LABS: Alanine Aminotransferase 14 U/L (16-63); Albumin Globulin Ratio 0.8; Albumin Level 2.8 g/dL (3.4-5.0); Alkaline Phosphatase 124 U/L (46-116); Aspartate Amino Transferase 17 U/L (15-37); BUN Creatinine Ratio 16.7; Bilirubin Total 0.9 mg/dL (0.2-1.0); Calcium 8.3 mg/dL (8.5-10.1); Carbon Dioxide 26.7 mmol/L (21.0-32.0); Chloride 104 mmol/L (98-107); Estimated GFR (African America >60 (>=60); Estimated GFR (Non-African Ame 53 (>=60); Globulin 3.6 g/dL; Glucose 137 mg/dL (74-106); Potassium 3.7 mmol/L (3.5-5.1); Sodium 140 mmol/L (136-145); Total Protein 6.4 g/dL (6.4-8.2)
[2024-01-04] MEDS: BUMETANIDE 1 MG/4 ML VIAL 2 MG IVP ×2 (08:29→20:54)
[2024-01-04] MEDS: LOSARTAN POTASSIUM 50 MG TABLET PO (08:30)
[2024-01-04] MEDS: ENOXAPARIN SODIUM 60 MG/0.6 ML SYRINGE SUBQ ×2 (08:30→20:50)
[2024-01-04] MEDS: CARVEDILOL 12.5 MG TABLET PO ×2 (08:30→20:49)
--- NOTE | 2024-01-04 09:20 | PM.IMPN1 ---
Progress Note: A&P Assessment and Plan (1) Acute on chronic congestive heart failure: Assessment and Plan: Good urine output on IV Bumex 2 mg twice a day. Continue with same. Monitor intake/output daily. Daily weight. Cardiology consulted. Awaiting their recommendation. Patient started on carvedilol, losartan for heart failure with reduced ejection fraction. Qualifiers: Heart failure type: combined systolic and diastolic Qualified Code(s): I50.43 - Acute on chronic combined systolic (congestive) and diastolic (congestive) heart failure (2) Anasarca: Assessment and Plan: Due to acute on chronic congestive heart failure. Improving with IV Bumex. Continue with same (3) Diabetes mellitus type 2 with complications: Assessment and Plan: On oral hypoglycemic as outpatient. Sliding scale insulin while inpatient. FSBS are above goal and added Levemir 20 units for night (4) Chronic kidney disease, stage III (moderate): Assessment and Plan: CKD likely because of type 2 diabetes and congestive heart failure. Serum creatinine more or less at baseline. Monitor closely. Qualifiers: Chronic kidney disease stage 3 subtype: stage 3a (GFR 45-59) Qualified Code(s): N18.31 - Chronic kidney disease, stage 3a (5) COPD (chronic obstructive pulmonary disease): Assessment and Plan: Does not have a formal diagnosis. Continue with DuoNebs as needed Qualifiers: COPD type: unspecified COPD Qualified Code(s): J44.9 - Chronic obstructive pulmonary disease, unspecified (6) Hypertension: Assessment and Plan: Blood pressure is at goal. Monitor closely while being diuresed. Qualifiers: Hypertension type: primary hypertension Qualified Code(s): I10 - Essential (primary) hypertension (7) Morbid obesity: Assessment and Plan: Patient would benefit from weight loss. Discussed lifestyle measures increasing physical activity and caloric deficit. Plan Continue with IV Bumex as patient is still considerably overloaded on exam and still quite symptomatic with dyspnea noted on minimal exertion. Cardiology consult is pending. Monitor serum electrolytes, serum creatinine, urine output closely while being diuresed. Internal Medicine - PN: Subj Subjective Interval history: Seen and examined. No overnight events. Had about 3 L of urine output in 24 hours. Patient reports that he is feeling a little bit better but is still has considerable dyspnea on minimal exertion. Exam Constitutional Vital Signs, click to edit/add: Last Vital Signs Temp 97.6 F 01/04/24 07:36 Pulse 73 01/04/24 08:00 Resp 18 01/04/24 07:36 BP 117/67 01/04/24 07:36 Pulse Ox 93 L 01/04/24 07:36 O2 Del Method Room Air 01/04/24 07:36 Common normals: oriented x3 General appearance: cooperative and comfortable Nutritional appearance: obese Respiratory Common normals: normal respiratory effort and no use of accessory muscles Auscultation: diminished lung sounds Other: Conversational dyspnea noted on exam Cardio Common normals: regular rate, regular rhythm, S1 normal heart sound and S2 normal heart sound Extremity Common normals: full ROM General: edema (+2 lower extremity edema bilaterally.) Neuro Common normals: oriented x3, moves all extremities and no focal motor deficits Psych Common normals: mental status grossly normal, thought process normal, denies homicidal ideation and denies suicidal ideation Internal Medicine - PN: Obj Da Labs Labs: Laboratory Results - last 24 hr 01/03/24 01/04/24 13:12 05:39 WBC 6.9 RBC 4.21 L Hgb 10.8 L Hct 35.6 L MCV 84.6 MCH 25.7 L MCHC 30.3 RDW 15.1 H Plt Count 201 MPV 10.6 Neut % (Auto) 66.4 Lymph % (Auto) 23.1 [place] % (Auto) 7.3 Eos % (Auto) 2.3 Baso % (Auto) 0.6 Neut # (Auto) 4.6 Lymph # (Auto) 1.6 [place] # (Auto) 0.5 Eos # (Auto) 0.2 Baso # (Auto) 0.0 Abs Immat Gran (auto) 0.02 Imm/Tot Granulo (auto) 0.3 Sodium 140 Potassium 3.7 Chloride 104 Carbon Dioxide 26.7 Anion Gap 13.0 BUN 23.0 H Creatinine 1.38 H Est GFR ( Amer) >60 Est GFR (Non-Af Amer) 53 L BUN/Creatinine Ratio 16.7 Glucose 137 H Calcium 8.3 L Total Bilirubin 0.9 AST 17 ALT 14 L Alkaline Phosphatase 124 H NT-Pro-B Natriuret Pep 5415.0 H* Total Protein 6.4 Albumin 2.8 L Globulin 3.6 Albumin/Globulin Ratio 0.8 POC Glucose 203 H
--- NOTE | 2024-01-04 10:31 | REH.PTDLY ---
Physical Therapy Daily Note PT Daily Note/Assess Start: 01/04/24 10:25 Freq: Status: Active Protocol: Document 01/04/24 10:25 KALE (Rec: 01/04/24 10:31 KALE [id number]) Physical Therapy Daily Note/Assessment Time In 09:35 Time Out 09:55 Subjective Sitting bedside upon arrival. Pt reports when he gets up he hyperventilates. Not wearing O2, pt states they took it off this morning, just needed it to sleep. Willing to try seated exs. Therapeutic Exercise Minutes (minutes) 8 Therapeutic Exercise Units 1 Therapeutic Exercise Treatment Instructed in B LE seated Ankle pumps and circles 20x ea direction for improved circulation/fluid mvt. LAQ and hip abd 20x ea Thai. Standing mini squats 10x with knee discomfort. Therapeutic Activity Minutes (minutes) 6 Therapeutic Activity Units 0 Chair Transfer Ability Modified Independent Therapeutic Activity Comments Mod. Ind with sit to stand transfers from side of bed. Static standing 2 min, weight shifting s-s 1 mins, static. Pt returns to sit with cues for pt to reach back for bed next time as he leaves arms on RW. Total Therapy Minutes 14 Total Physical Therapy Units 1 Daily Note Summary Pt declines ambulating any distance this morning. Agreeable to exs, does well with seated exs. Fatigues easily with standing. Mini squats cause knee pain.
--- NOTE | 2024-01-04 10:40 | CM.NOTE ---
Rounds made with Dr. Burrows, discussed with pt about continuing diuresing and cardiology to consult with pt. Case Management also talked with pt about Cardiac Rehab and gave pt information regarding Cardiac Rehab. Case Management also discussed with pt about chronic disease management and importance of f/u appointments. Discussed with pt also about daily weights at home. PT also recommending HH services for patient. SS aware of HH recommendations for patient.
--- NOTE | 2024-01-04 11:45 | SWNOTE1 ---
SW to discuss HH options with pt.
--- NOTE | 2024-01-04 11:58 | SWNOTE1 ---
SW met wit
--- NOTE | 2024-01-04 12:00 | SWNOTE1 ---
SW met with pt to discuss dc needs. Pt lives at home alone, he has a ramp to get in. SW let pt know that Home Health is being recommended at this time for PT and nursing services. Pt voiced he had HH in past and it was [facility] but they did wound care. Pt stated he is not sure why he would need it this time. ROLAND explained to pt that a HH nurse would assist with his heart failure and work with pt on preventing him from coming to hospital again. SW also stated Pt would come in to get him stronger. At this time pt is unsure. SW asked why? Pt could not really answer, just felt like there was no point. SW assured pt that if he allows HH to come in and eval and if he does not want them after the initial visit, he can tell them not to come back. Pt then stated his neighbor down the street works for [employer] ROLAND advised pt to think about it and provided pt with a list from medicare.gov star ratings for him to review. SW to check back later today or tomorrow.
--- NOTE | 2024-01-04 17:16 | PM.CACN ---
History of Present Illness History of Present Illness Consult date: 01/04/24 Requesting physician: Shaikh Stormy Consult reason: congestive heart failure and shortness of breath Chief complaint: WEAKNESS, POSS HEART/KIDNEY FAILURE CHF EXACERBATI Narrative: This is a 58-year-old man with complex medical history including very morbid obesity with BMI 75, diabetes, hypertension, kidney disease, and chronic heart failure who is currently admitted with acute decompensated heart failure, significant volume overload, anasarca and shortness of breath. During his admission he was found to have significantly elevated BNP levels with negative troponins. His ECG shows ectopic atrial rhythm. An echocardiogram performed showed left ventricular systolic function to be reduced with an ejection fraction of 35 to 40%, no clear valvular abnormalities and significant elevation of right-sided pressures. He has been managed with intravenous diuretic therapy. Today he reports that his breathing is better and he has felt better since admission. He still has significant lower extremity swelling and abdominal swelling. He denies chest pain and palpitations. He uses a walker to assist with ambulation. Review of Systems ROS Status of ROS 10 or more systems reviewed and unremarkable except as noted in history and below Cardiovascular Reports: edema, shortness of breath with exertion and shortness of breath when lying down; Denies: chest pain [facility] Medical History (Updated 01/04/24 @ 17:21 by AARON MONTERO) Diabetes mellitus type 2 with complications ?E11.8 - Type 2 diabetes mellitus with unspecified complications (ICD-10) Anemia in chronic kidney disease ?N18.9 - Chronic kidney disease, unspecified (ICD-10) ?D63.1 - Anemia in chronic kidney disease (ICD-10) Chronic kidney disease, stage III (moderate) ?N18.30 - Chronic kidney disease, stage 3 unspecified (ICD-10) COPD (chronic obstructive pulmonary disease) ?J44.9 - Chronic obstructive pulmonary disease, unspecified (ICD-10) Moderate protein-calorie malnutrition ?E44.0 - Moderate protein-calorie malnutrition (ICD-10) Hypertension ?I10 - Essential (primary) hypertension (ICD-10) Pulmonary edema ?J81.1 - Chronic pulmonary edema (ICD-10) Anasarca ?R60.1 - Generalized edema (ICD-10) Abnormal colonoscopy ?R93.3 - Abnormal findings on diagnostic imaging of other parts of digestive tract (ICD-10) Surgical History History of appendectomy ?Z90.49 - Acquired absence of other specified parts of digestive tract (ICD-10) Family History (Updated 01/02/24 @ 20:27 by Vale Caro RN) Father Diabetes Mother CHF (congestive heart failure) Social History Within the past year, how often did you have a drink containing alcohol: never Within the past year, how many standard drinks containing alcohol did you have on a typical day: 1 or 2 Total score: 0 Score interpretation: A score less than 4 is consistent with normal alcohol consumption. Smoking status: Never smoker Second hand tobacco smoke exposure: No Non-prescribed substance use: denies use Previous occupational history: retired Highest level of school completed/degree received: high school graduate Are you now , , , , never or living with a partner: never In a typical week, how many times do you talk on the telephone with family, friends, or neighbors: 3 or more times per week How often do you get together with friends or relatives: 3 or more times per week How often do you attend mandaen or voodoo services: never Do you belong to any clubs or organizations such as mandaen groups unions, fraternal or athletic groups, or school groups: no Total score: 1 Score interpretation: A score of less than or equal to 1 indicates the most socially isolated. Little interest or pleasure in doing things: not at all Feeling down, depressed, or hopeless: not at all Feel stressed/tense/nervous/anxious/difficulty sleeping: not at all Due to disability, difficulty making decisions: No Do you think of yourself as: straight/heterosexual Gender Identity: male Meds Home Medications and Allergies Home Medications ?Medication ?Instructions ?Recorded ?Confirmed ?Type metformin 1,000 mg tablet 1,000 mg PO BID 12/16/23 01/03/24 History semaglutide 7 mg tablet (Rybelsus) 7 mg PO DAILY 12/16/23 01/03/24 History albuterol sulfate 90 mcg/actuation 2 inh inhalation Q4H PRN shortness 12/18/23 01/03/24 Rx aerosol inhaler of breath or wheezing #6.7 grams bumetanide 1 mg tablet 1 mg PO DAILY 15 days #15 tabs 12/18/23 01/03/24 Rx isosorbide mononitrate 30 mg 30 mg PO Q24H 15 days #15 tabs 12/18/23 01/03/24 Rx tablet,extended release 24 hr metoprolol tartrate 25 mg tablet 25 mg PO BID 15 days #30 tabs 12/18/23 01/03/24 Rx Allergies Allergy/AdvReac Type Severity Reaction Status Date / Time topiramate [From Topamax] AdvReac Intermediate Altered Verified 12/16/23 07:22 Sense of Taste Exam Constitutional Vital Signs, click to edit/add: Last Vital Signs Temp 97.3 F L 01/04/24 11:45 Pulse 74 01/04/24 16:03 Resp 18 01/04/24 11:45 BP 112/75 01/04/24 11:45 Pulse Ox 96 01/04/24 11:45 O2 Del Method Room Air 01/04/24 11:45 Common normals: oriented x3 General appearance: cooperative and comfortable Nutritional appearance: obese Orientation/consciousness: Yes awake, Yes oriented to person, Yes oriented to place and Yes oriented to time HENMT Common normals: normocephalic Eye Common normals: conjunctivae normal Chest Common normals: inspection of chest normal Respiratory Common normals: normal respiratory effort Auscultation: clear to auscultation bilaterally Cardio Common normals: no JVD (Unable to assess jugular venous pressure due to obese neck) Rate: regular rate Rhythm: regular rhythm Heart sounds: abnormal sounds (Decreased heart sounds); no murmurs GI Inspection: edema findings and abdominal distension Extremity General: edema (+3 edema in the lower extremities.) Neuro Common normals: oriented x3, moves all extremities and no focal motor deficits Results Labs and Meds Lab results: Cardiac Enzymes 01/04/24 Range/Units 05:39 AST 17 (15-37) U/L CBC 01/04/24 Range/Units 05:39 WBC 6.9 (4.0-11.0) 10^3/uL RBC 4.21 L (4.70-6.10) 10^6/uL Hgb 10.8 L (14.0-18.0) g/dL Hct 35.6 L (42.0-54.0) % Plt Count 201 (150-450) 10^3/uL Neut # (Auto) 4.6 (1.4-6.5) 10^3/uL Lymph # (Auto) 1.6 (1.2-3.8) 10^3/uL [place] # (Auto) 0.5 (0.3-0.8) 10^3/uL Eos # (Auto) 0.2 (0.0-0.7) 10^3/uL Baso # (Auto) 0.0 (0.0-0.1) 10^3/uL Comprehensive Metabolic Panel 01/04/24 Range/Units 05:39 Sodium 140 (136-145) mmol/L Potassium 3.7 (3.5-5.1) mmol/L Chloride 104 (98-107) mmol/L Carbon Dioxide 26.7 (21.0-32.0) mmol/L BUN 23.0 H (7.0-18.0) mg/dL Creatinine 1.38 H (0.70-1.30) mg/dL Glucose 137 H (74-106) mg/dL Calcium 8.3 L (8.5-10.1) mg/dL AST 17 (15-37) U/L ALT 14 L (16-63) U/L Alkaline Phosphatase 124 H (46-116) U/L Total Protein 6.4 (6.4-8.2) g/dL Albumin 2.8 L (3.4-5.0) g/dL Intake and Output 01/04/24 01/04/24 01/04/24 07:59 15:59 23:59 Intake Total 850 / 850 1090 / 1090 Output Total 1200 / 2850 1900 / 2400 500 / 2400 Balance -350 / -2000 -810 / -1310 -500 / -1310 Intake: Oral 850 / 850 1090 / 1090 Output: Urine 1200 / 2850 1900 / 2400 500 / 2400 Other: Weight 210.6 kg Assessment and Plan Assessment and Plan (1) Acute on chronic congestive heart failure: Qualifiers: Heart failure type: systolic Qualified Code(s): I50.23 - Acute on chronic systolic (congestive) heart failure (2) Anasarca: (3) Diabetes mellitus type 2 with complications: (4) Chronic kidney disease, stage III (moderate): Qualifiers: Chronic kidney disease stage 3 subtype: stage 3a (GFR 45-59) Qualified Code(s): N18.31 - Chronic kidney disease, stage 3a (5) COPD (chronic obstructive pulmonary disease): Qualifiers: COPD type: unspecified COPD Qualified Code(s): J44.9 - Chronic obstructive pulmonary disease, unspecified (6) Hypertension: Qualifiers: Hypertension type: primary hypertension Qualified Code(s): I10 - Essential (primary) hypertension (7) Morbid obesity: Plan He has acute on chronic systolic heart failure with significant decompensation as evidenced by presence of severe volume overload and elevated NT proBNP levels. In addition his echocardiogram showed significantly elevated right-sided pressures. At this time I recommend optimization of GDMT for systolic heart failure. In addition he should be treated with aspirin 81 mg daily and high intensity statin therapy given LV dysfunction and diabetes. His blood pressure should be optimally controlled. 1. Add aspirin 81 mg daily. 2. Check lipid panel and add atorvastatin 80 mg daily. 3. Add spironolactone 25 mg once daily. 4. Continue carvedilol and losartan and uptitrate the dosage as tolerated to target heart rate 60 to 70 bpm and systolic blood pressure less than 120. 5. Add SGLT2 inhibitor. 6. Continue diuretic therapy intravenously as he is still has significant volume overload. 7. Ideally he would benefit from a cardiac catheterization to define the coronary anatomy. However his weight is above the limit of most cardiac catheterization equipment tables. Other means to assess for underlying coronary artery disease can be explored in the future. 8. Follow-up in cardiology clinic after discharge.
[2024-01-04 20:37] LABS: Glucometer 116 mg/dL (74-106)
[2024-01-04] MEDS: OXYCODONE HCL 5 MG TABLET PO (20:52)
[2024-01-05] VITALS (17 sets, daily range): BP systolic 94–119; BP diastolic 57–77; PULSE 70–86; TEMP 36.4–36.8; O2SAT 91–97
[2024-01-05 05:45] LABS: Basophils Percent Auto 0.6 % (0.2-2.0); Eosinophils Absolute Auto 0.1 10^3/uL (0.0-0.7); Eosinophils Percent Auto 2.1 % (0.9-7.0); Hematocrit 35.4 % (42.0-54.0); Immature Granulocytes Abs Auto 0.02 10^3/uL (0.00-0.03); Immature Granulocytes Pct Auto 0.3 % (0.0-0.5); Lymphocytes Absolute Auto 1.1 10^3/uL (1.2-3.8); Lymphocytes Percent Auto 16.5 % (20.5-60.0); Mean Corpuscular HGB Conc 31.1 g/dL (29.9-35.2); Mean Corpuscular Hemoglobin 25.8 pg (25.9-34.0); Mean Corpuscular Volume 83.1 fL (80.0-94.0); Mean Platelet Volume 10.4 fL (9.5-13.5); Monocytes Absolute Auto 0.5 10^3/uL (0.3-0.8); Monocytes Percent Auto 6.6 % (1.7-12.0); Neutrophils Percent Auto 73.9 % (43.0-75.0); Platelet Count 195 10^3/uL (150-450); Red Blood Count 4.26 10^6/uL (4.70-6.10); Red Cell Distribution Width 14.8 % (11.0-15.0); White Blood Count 6.8 10^3/uL (4.0-11.0)
[2024-01-05 06:01] LABS: Alanine Aminotransferase 18 U/L (16-63); Albumin Globulin Ratio 0.8; Albumin Level 2.7 g/dL (3.4-5.0); Alkaline Phosphatase 121 U/L (46-116); Anion Gap 10.6; Aspartate Amino Transferase 17 U/L (15-37); BUN Creatinine Ratio 17.4; Calcium 8.2 mg/dL (8.5-10.1); Chloride 103 mmol/L (98-107); Estimated GFR (African America >60 (>=60); Estimated GFR (Non-African Ame >60 (>=60); Globulin 3.5 g/dL; Glucose 136 mg/dL (74-106); Potassium 3.6 mmol/L (3.5-5.1); Sodium 139 mmol/L (136-145); Total Protein 6.2 g/dL (6.4-8.2)
[2024-01-05] MEDS: CARVEDILOL 12.5 MG TABLET PO ×2 (09:18→23:25)
[2024-01-05] MEDS: BUMETANIDE 1 MG/4 ML VIAL 2 MG IVP ×2 (09:18→23:25)
[2024-01-05] MEDS: ENOXAPARIN SODIUM 60 MG/0.6 ML SYRINGE SUBQ ×2 (09:19→23:25)
[2024-01-05] MEDS: LOSARTAN POTASSIUM 50 MG TABLET PO (09:20)
--- NOTE | 2024-01-05 09:28 | PM.IMPN1 ---
Progress Note: A&P Assessment and Plan (1) Acute on chronic congestive heart failure: Assessment and Plan: Continue with IV Bumex 2 mg twice a day. Patient had urine output of about 3 L in 24 hours. Appreciate recommendation from cardiology. Started patient on aspirin, Lipitor, Aldactone and Invokana. Check lipid panel as per cardiology. Qualifiers: Heart failure type: systolic Qualified Code(s): I50.23 - Acute on chronic systolic (congestive) heart failure (2) Anasarca: Assessment and Plan: . Still has considerable volume overload on exam. Due to acute on chronic congestive heart failure. Improving with IV Bumex. Continue with same (3) Diabetes mellitus type 2 with complications: Assessment and Plan: On oral hypoglycemic as outpatient. Sliding scale insulin while inpatient. FSBS are improved with addition of Levemir. (4) Chronic kidney disease, stage III (moderate): Assessment and Plan: CKD likely because of type 2 diabetes and congestive heart failure. Serum creatinine more or less at baseline. Monitor closely. Qualifiers: Chronic kidney disease stage 3 subtype: stage 3a (GFR 45-59) Qualified Code(s): N18.31 - Chronic kidney disease, stage 3a (5) COPD (chronic obstructive pulmonary disease): Assessment and Plan: Does not have a formal diagnosis. Continue with DuoNebs as needed Qualifiers: COPD type: unspecified COPD Qualified Code(s): J44.9 - Chronic obstructive pulmonary disease, unspecified (6) Hypertension: Assessment and Plan: Blood pressure is at goal. Monitor closely while being diuresed. Qualifiers: Hypertension type: primary hypertension Qualified Code(s): I10 - Essential (primary) hypertension (7) Morbid obesity: Assessment and Plan: Patient would benefit from weight loss. Discussed lifestyle measures increasing physical activity and caloric deficit. Internal Medicine - PN: Subj Subjective Interval history: Seen and examined. No overnight events. Diuresing well with IV Bumex. Still has considerable volume overload on exam. Feeling a little bit better but still get short of breath on exertion Exam Constitutional Vital Signs, click to edit/add: Last Vital Signs Temp 97.6 F 01/05/24 05:06 Pulse 77 01/05/24 08:00 Resp 18 01/05/24 05:06 BP 97/57 01/05/24 05:06 Pulse Ox 92 L 01/05/24 05:06 O2 Del Method Room Air 01/05/24 05:06 Common normals: oriented x3 General appearance: cooperative and comfortable Nutritional appearance: obese Respiratory Common normals: normal respiratory effort and no use of accessory muscles Auscultation: diminished lung sounds Other: Conversational dyspnea noted on exam Cardio Common normals: regular rate, regular rhythm, S1 normal heart sound and S2 normal heart sound Extremity Common normals: full ROM General: edema (+2 lower extremity edema bilaterally.) Neuro Common normals: oriented x3, moves all extremities and no focal motor deficits Psych Common normals: mental status grossly normal, thought process normal, denies homicidal ideation and denies suicidal ideation Internal Medicine - PN: Obj Da Labs Labs: Laboratory Results - last 24 hr 01/04/24 01/05/24 20:33 05:34 WBC 6.8 RBC 4.26 L Hgb 11.0 L Hct 35.4 L MCV 83.1 MCH 25.8 L MCHC 31.1 RDW 14.8 Plt Count 195 MPV 10.4 Neut % (Auto) 73.9 Lymph % (Auto) 16.5 L [place] % (Auto) 6.6 Eos % (Auto) 2.1 Baso % (Auto) 0.6 Neut # (Auto) 5.0 Lymph # (Auto) 1.1 L [place] # (Auto) 0.5 Eos # (Auto) 0.1 Baso # (Auto) 0.0 Abs Immat Gran (auto) 0.02 Imm/Tot Granulo (auto) 0.3 Sodium 139 Potassium 3.6 Chloride 103 Carbon Dioxide 29.0 Anion Gap 10.6 BUN 21.0 H Creatinine 1.21 Est GFR ( Amer) >60 Est GFR (Non-Af Amer) >60 BUN/Creatinine Ratio 17.4 Glucose 136 H Calcium 8.2 L Total Bilirubin 1.0 AST 17 ALT 18 Alkaline Phosphatase 121 H NT-Pro-B Natriuret Pep 3784.0 H* Total Protein 6.2 L Albumin 2.7 L Globulin 3.5 Albumin/Globulin Ratio 0.8 POC Glucose 116 H
--- NOTE | 2024-01-05 09:37 | CM.NOTE ---
Rounds made with Dr. Burrows, no discharge today and will continue diuresis. Dr. Burrows discussed recommendations from cardiology and will implement recommendations.
--- NOTE | 2024-01-05 09:51 | REH.PTDLY ---
Physical Therapy Daily Note PT Daily Note/Assess Start: 01/04/24 10:25 Freq: Status: Active Protocol: Document 01/05/24 09:43 KALE (Rec: 01/05/24 09:50 [facility] [id number] Physical Therapy Daily Note/Assessment Time In 09:25 Time Out 09:40 Subjective Pt sitting bedside upon arrival with LIYAH Ray in room. Reports soreness in ankles this morning. Staying another day to get more fluid off. Therapeutic Exercise Minutes (minutes) 10 Therapeutic Exercise Units 1 Therapeutic Exercise Treatment With pt sitting bedside unsupported instructed in B LE seated exs including R ankle pumps, circles CW and CCW 30x ea. Pt has minimal mvt when performing on L due to pain, performs about 10x ea. LAQ and hip abd kicks 30x ea leg with pt performing slow and controlled. Total Therapy Minutes 10 Total Physical Therapy Units 1 Daily Note Summary Pt declines ambulating or standing today due to L ankle pain, rates as an 8/10. Report 'I can hardly let it touch the ground due to pain.' Pt is willing to perform seated exs and progresses reps today. Nursing notified of pt's complaints and therapy participation.
[2024-01-05 10:03] LABS: Chol HDL Ratio 3.1; Cholesterol 87 mg/dL (<=200); HDL Cholesterol 28 mg/dL (40-60); Triglycerides 64 mg/dL (<=150); VLDL CHOLESTEROL 12.8 mg/dL
[2024-01-05] MEDS: CANAGLIFLOZIN 100 MG TABLET PO (11:06)
[2024-01-05] MEDS: SPIRONOLACTONE 25 MG TABLET 50 MG PO (11:06)
[2024-01-05] MEDS: ASPIRIN 81 MG TAB.CHEW PO (11:07)
[2024-01-05] MEDS: INSULIN ASPART 300 UNIT/3 ML PEN SUBQ ×2 (12:41→17:18)
[2024-01-05] MEDS: ACETAMINOPHEN 325 MG TABLET 650 MG PO (13:59)
[2024-01-05] MEDS: OXYCODONE HCL 5 MG TABLET PO ×2 (13:59→23:30)
--- NOTE | 2024-01-05 14:05 | SWNOTE1 ---
SW spoke with pt about Home Health services again. Pt did voice he was not able to really ambulate on his ankle today due to pain. SW did advise the pt that is even more of a reason to have HH come in and do therapy and a nurse to monitor pt's ankle/swelling. Pt voiced he would like to play it by ear. SW asked permission to send information to HH company of pt's choice. Again pt stated he wants to play it by ear. SW to check in with pt tomorrow.
--- NOTE | 2024-01-05 18:13 | PC.NURSE ---
rn was notified that patient had 20 beat run of vtach, rn checked on patient and he was alert and oriented and did not report any symptoms
[2024-01-05 20:07] LABS: Glucometer 186 mg/dL (74-106)
[2024-01-05 21:51] LABS: Magnesium 1.5 mg/dL (1.8-2.4)
[2024-01-05] MEDS: POTASSIUM CHLORIDE 10 MEQ ER TABLET 20 MEQ PO (23:24)
[2024-01-05] MEDS: ATORVASTATIN CALCIUM 40 MG TABLET PO (23:24)
[2024-01-05] MEDS: MAGNESIUM SULFATE IN WATER 2 GM/50 ML PREMIX IV (23:26)
[2024-01-05] MEDS: MAGNESIUM SULFATE/D5W 1 GM/100 ML PREMIX IV (23:26)
[2024-01-06] VITALS (19 sets, daily range): BP systolic 100–112; BP diastolic 57–65; PULSE 73–97; TEMP 36.6–36.9; O2SAT 90–97
--- NOTE | 2024-01-06 02:43 | PC.NURSE ---
night hospitalist notified that pt had 26-beat run of v-tach at 1813 on 01/04. ot was asymptomatic. night MAG[employer] PUBLISHER ordered mag lab and based on the results she ordered IV magnesium to be given as well.
--- NOTE | 2024-01-06 06:00 | XR_ITS ---
The [address] [address] Patient Name: TANIA SANTANA MRN: [id number] date: 1965 Sex: M Assigned Patient Location: [place] Current Patient Location: [place] Accession/Order Number: [id number] Exam Date: 01/06/2024 05:05 Report Date: 01/06/2024 06:46 At the request of: SHAIKH LASHA Procedure: XR chest 1V EXAMINATION: XR chest 1V HISTORY: CHF COMPARISON: XR chest 01/02/2024 FINDINGS: LUNGS: Mild haziness within mid and lower lung regions. Obscuration of left lung base. VASCULATURE: No increased pulmonary vasculature. PLEURA: No pneumothorax, effusion, or pleural thickening. CARDIAC: Cardiomegaly. MEDIASTINUM: No visible mass or adenopathy. BONES: No fracture or visible bone lesion. OTHER: Negative. XR/XR chest 1V IMPRESSION: 1. Suspect mild bilateral pulmonary infiltrates/edema; less then previously seen. 2. Cardiomegaly, with a prominent pericardial fat pad likely obscuring the left lung base. Electronically authenticated by: EFRA HERBERT Date: 01/06/2024 06:46
[2024-01-06 07:21] LABS: Basophils Percent Auto 0.4 % (0.2-2.0); Eosinophils Absolute Auto 0.1 10^3/uL (0.0-0.7); Eosinophils Percent Auto 0.9 % (0.9-7.0); Hematocrit 36.9 % (42.0-54.0); Hemoglobin 11.3 g/dL (14.0-18.0); Immature Granulocytes Abs Auto 0.02 10^3/uL (0.00-0.03); Immature Granulocytes Pct Auto 0.3 % (0.0-0.5); Lymphocytes Percent Auto 13.5 % (20.5-60.0); Mean Corpuscular HGB Conc 30.6 g/dL (29.9-35.2); Mean Corpuscular Hemoglobin 25.9 pg (25.9-34.0); Mean Corpuscular Volume 84.4 fL (80.0-94.0); Mean Platelet Volume 10.4 fL (9.5-13.5); Monocytes Absolute Auto 0.7 10^3/uL (0.3-0.8); Monocytes Percent Auto 10.1 % (1.7-12.0); Neutrophils Absolute Auto 5.3 10^3/uL (1.4-6.5); Neutrophils Percent Auto 74.8 % (43.0-75.0); Platelet Count 217 10^3/uL (150-450); Red Blood Count 4.37 10^6/uL (4.70-6.10); Red Cell Distribution Width 15.1 % (11.0-15.0)
[2024-01-06 07:40] LABS: Alanine Aminotransferase 14 U/L (16-63); Albumin Globulin Ratio 0.7; Albumin Level 2.8 g/dL (3.4-5.0); Alkaline Phosphatase 131 U/L (46-116); Anion Gap 9.8; Aspartate Amino Transferase 14 U/L (15-37); Bilirubin Total 1.4 mg/dL (0.2-1.0); Calcium 8.2 mg/dL (8.5-10.1); Carbon Dioxide 31.2 mmol/L (21.0-32.0); Chloride 101 mmol/L (98-107); Estimated GFR (African America >60 (>=60); Estimated GFR (Non-African Ame 52 (>=60); Globulin 3.9 g/dL; Glucose 154 mg/dL (74-106); Sodium 138 mmol/L (136-145); Total Protein 6.7 g/dL (6.4-8.2)
[2024-01-06] MEDS: BUMETANIDE 1 MG/4 ML VIAL 2 MG IVP ×2 (07:45→20:00)
[2024-01-06] MEDS: INSULIN ASPART 300 UNIT/3 ML PEN SUBQ ×2 (07:45→17:42)
[2024-01-06] MEDS: ACETAMINOPHEN 325 MG TABLET 650 MG PO (08:19)
[2024-01-06] MEDS: CARVEDILOL 12.5 MG TABLET PO ×2 (08:19→21:20)
[2024-01-06] MEDS: LOSARTAN POTASSIUM 50 MG TABLET PO (08:19)
[2024-01-06] MEDS: ENOXAPARIN SODIUM 60 MG/0.6 ML SYRINGE SUBQ ×2 (08:19→21:21)
[2024-01-06] MEDS: CANAGLIFLOZIN 100 MG TABLET PO (08:19)
[2024-01-06] MEDS: ASPIRIN 81 MG TAB.CHEW PO (08:19)
[2024-01-06] MEDS: POTASSIUM CHLORIDE 10 MEQ ER TABLET 20 MEQ PO ×2 (08:20→21:20)
[2024-01-06] MEDS: OXYCODONE HCL 5 MG TABLET PO (08:20)
[2024-01-06] MEDS: SPIRONOLACTONE 25 MG TABLET 50 MG PO (08:20)
--- NOTE | 2024-01-06 10:27 | PT.DAILY ---
Physical Therapy Daily Note PT Daily Note/Assess Start: 01/04/24 10:25 Freq: Status: Active Protocol: Document 01/06/24 10:21 VALDEMAR (Rec: 01/06/24 10:26 JOSÉNADEGE [id number]) Physical Therapy Daily Note/Assessment Time In/Time Out Time In 09:50 Time Out 10:10 Pain In Pain Level 7 Pain Out Pain Level 8 Subjective Subjective Pt sitting EOB upon arrival. Reports both ankles/feet are causing lots of pain today. He had his legs rewrapped this morning but no relief yet. Pt reports he was told to lay with his feet elevated but he says the bed is not very comfortable to do that for an extended amount of time. Edu on benefits of elevation with verbal understanding but wishes to cont to sit EOB. Therapeutic Exercise Time Therapeutic Exercise Minutes (minutes) 8 Therapeutic Exercise Units 1 Therapeutic Exercise Treatment Therapeutic Exercise Treatment Bilat LE strengthening/ROM ex complete while sitting EOB unsupported - good dynamic seated balance. COmplete ankle pumps and circles, marches, abduction step outs, hip ER/IR rocking 10-15x ea. Remains sitting EOB upon completion as he denies standing/transfers at this time. * note 400 cc was emptied from urinal - nursing was notified . Total Physical Therapy Time Total Therapy Minutes 8 Total Physical Therapy Units 1 Summary Daily Note Summary Foot and ankle pain cont to limit session. Edu on importance of water intake and elevating his feet - he verbalized understanding.
--- NOTE | 2024-01-06 10:49 | PM.IMPN1 ---
Progress Note: A&P Assessment and Plan (1) Acute on chronic congestive heart failure: Assessment and Plan: Continue with IV Bumex, Aldactone. Good urine output. Still has evidence of volume overload. Monitor intake/output, daily weights. Qualifiers: Heart failure type: systolic Qualified Code(s): I50.23 - Acute on chronic systolic (congestive) heart failure (2) Anasarca: Assessment and Plan: . Continue with IV Bumex, Aldactone. Improving with IV diuresis. Continue with same (3) Diabetes mellitus type 2 with complications: Assessment and Plan: On oral hypoglycemic as outpatient. Sliding scale insulin while inpatient along with subcutaneous Levemir at night. He is also on Invokana heart failure (4) Chronic kidney disease, stage III (moderate): Assessment and Plan: CKD likely because of type 2 diabetes and congestive heart failure. Serum creatinine more or less at baseline. Monitor closely. Qualifiers: Chronic kidney disease stage 3 subtype: stage 3a (GFR 45-59) Qualified Code(s): N18.31 - Chronic kidney disease, stage 3a (5) COPD (chronic obstructive pulmonary disease): Assessment and Plan: Does not have a formal diagnosis. Continue with DuoNebs as needed Qualifiers: COPD type: unspecified COPD Qualified Code(s): J44.9 - Chronic obstructive pulmonary disease, unspecified (6) Hypertension: Assessment and Plan: Blood pressure is at goal. Monitor closely while being diuresed. Qualifiers: Hypertension type: primary hypertension Qualified Code(s): I10 - Essential (primary) hypertension (7) Morbid obesity: Assessment and Plan: Patient would benefit from weight loss. Discussed lifestyle measures increasing physical activity and caloric deficit. Internal Medicine - PN: Subj Subjective Interval history: Seen and examined. No overnight events. Doing well with IV diuresis. Has lost about 4 kg in 24 hours. Still above baseline weight of 200 kg. Exam Constitutional Vital Signs, click to edit/add: Last Vital Signs Temp 98.4 F 01/06/24 07:56 Pulse 73 01/06/24 09:58 Resp 18 01/06/24 07:56 BP 105/57 01/06/24 07:56 Pulse Ox 90 L 01/06/24 07:56 O2 Del Method Room Air 01/06/24 07:56 Common normals: oriented x3 General appearance: cooperative and comfortable Nutritional appearance: obese Respiratory Common normals: normal respiratory effort, no use of accessory muscles and clear to auscultation bilaterally Effort & inspection: able to speak in complete sentences Auscultation: diminished lung sounds Cardio Common normals: regular rate, regular rhythm, S1 normal heart sound and S2 normal heart sound Extremity Common normals: full ROM General: edema (+2 lower extremity edema bilaterally.) Neuro Common normals: oriented x3, moves all extremities and no focal motor deficits Psych Common normals: mental status grossly normal, thought process normal, denies homicidal ideation and denies suicidal ideation Internal Medicine - PN: Obj Da Labs Labs: Laboratory Results - last 24 hr 01/05/24 01/05/24 01/06/24 19:56 21:28 06:47 WBC 7.0 RBC 4.37 L Hgb 11.3 L Hct 36.9 L MCV 84.4 MCH 25.9 MCHC 30.6 RDW 15.1 H Plt Count 217 MPV 10.4 Neut % (Auto) 74.8 Lymph % (Auto) 13.5 L [place] % (Auto) 10.1 Eos % (Auto) 0.9 Baso % (Auto) 0.4 Neut # (Auto) 5.3 Lymph # (Auto) 1.0 L [place] # (Auto) 0.7 Eos # (Auto) 0.1 Baso # (Auto) 0.0 Abs Immat Gran (auto) 0.02 Imm/Tot Granulo (auto) 0.3 Sodium 138 Potassium 4.0 Chloride 101 Carbon Dioxide 31.2 Anion Gap 9.8 BUN 21.0 H Creatinine 1.40 H Est GFR ( Amer) >60 Est GFR (Non-Af Amer) 52 L BUN/Creatinine Ratio 15.0 Glucose 154 H Calcium 8.2 L Magnesium 1.5 L Total Bilirubin 1.4 H AST 14 L ALT 14 L Alkaline Phosphatase 131 H NT-Pro-B Natriuret Pep 4256.0 H* Total Protein 6.7 Albumin 2.8 L Globulin 3.9 Albumin/Globulin Ratio 0.7 POC Glucose 186 H
--- NOTE | 2024-01-06 10:50 | CM.NOTE ---
Rounds made with Dr. Burrows. Dr. Burrows discussed progress and treatment plan. Cristobal verbalized understanding. No plan for discharge today.
--- NOTE | 2024-01-06 10:55 | SWNOTE1 ---
SW stopped back in to speak with pt about discharge plans. SW reviewed therapy notes prior to going in. Pt was not able to do much in past 1-2 days, just bed exercises from edge of bed. SW spoke to him about the possibility of needing rehab due to not being able to amulate at this time. Pt voiced he has a dog at home and he needs cared for (his cousin is caring for dog now). SW then asked about getting food, cooking, and getting to the bathroom. Pt voiced he does have a wheelchair at home he can use. Pt voiced he will just have to cook that is what it is. At this time pt voiced no rehab. SW highly recommended for pt's safety, but pt refusing at this time. ROLAND again offered at least HH coming in for therapy and a nurse. Pt is now agreeable. He did review list from medicare.gov star ratings and he would like to use [facility] since he had them in the past. Referral sent to [facility]. Referral included face sheet, ED note, H&P, provider notes, case management report, med list, and PT/OT notes. SW updated doctor and nursing.
--- NOTE | 2024-01-06 13:17 | SWNOTE1 ---
ROLAND called [facility] and they have ran benefits and they are able to accept. Earliest they will see pt is early next. Unsure of pt discharge at this time, so that will be fine.
[2024-01-06] MEDS: ATORVASTATIN CALCIUM 40 MG TABLET PO (21:20)
[2024-01-07] VITALS (17 sets, daily range): BP systolic 100–109; BP diastolic 55–68; PULSE 74–90; TEMP 36.6–37.5; O2SAT 91–97
[2024-01-07 06:12] LABS: Basophils Percent Auto 0.4 % (0.2-2.0); Eosinophils Absolute Auto 0.1 10^3/uL (0.0-0.7); Hematocrit 36.4 % (42.0-54.0); Hemoglobin 11.2 g/dL (14.0-18.0); Immature Granulocytes Abs Auto 0.01 10^3/uL (0.00-0.03); Immature Granulocytes Pct Auto 0.2 % (0.0-0.5); Lymphocytes Absolute Auto 0.9 10^3/uL (1.2-3.8); Lymphocytes Percent Auto 17.8 % (20.5-60.0); Mean Corpuscular HGB Conc 30.8 g/dL (29.9-35.2); Mean Corpuscular Hemoglobin 25.9 pg (25.9-34.0); Mean Corpuscular Volume 84.3 fL (80.0-94.0); Mean Platelet Volume 10.3 fL (9.5-13.5); Monocytes Absolute Auto 0.5 10^3/uL (0.3-0.8); Monocytes Percent Auto 9.8 % (1.7-12.0); Neutrophils Absolute Auto 3.6 10^3/uL (1.4-6.5); Neutrophils Percent Auto 70.8 % (43.0-75.0); Platelet Count 191 10^3/uL (150-450); Red Blood Count 4.32 10^6/uL (4.70-6.10); Red Cell Distribution Width 15.3 % (11.0-15.0); White Blood Count 5.1 10^3/uL (4.0-11.0)
[2024-01-07 06:22] LABS: Alanine Aminotransferase 17 U/L (16-63); Albumin Globulin Ratio 0.6; Albumin Level 2.6 g/dL (3.4-5.0); Alkaline Phosphatase 127 U/L (46-116); Anion Gap 8.6; Aspartate Amino Transferase 14 U/L (15-37); BUN Creatinine Ratio 15.9; Bilirubin Total 1.3 mg/dL (0.2-1.0); Calcium 8.5 mg/dL (8.5-10.1); Carbon Dioxide 31.5 mmol/L (21.0-32.0); Chloride 100 mmol/L (98-107); Estimated GFR (African America 55 (>=60); Estimated GFR (Non-African Ame 45 (>=60); Globulin 4.1 g/dL; Glucose 129 mg/dL (74-106); Potassium 4.1 mmol/L (3.5-5.1); Sodium 136 mmol/L (136-145); Total Protein 6.7 g/dL (6.4-8.2)
[2024-01-07] MEDS: CARVEDILOL 12.5 MG TABLET PO ×2 (08:35→20:06)
[2024-01-07] MEDS: SPIRONOLACTONE 25 MG TABLET 50 MG PO (08:35)
[2024-01-07] MEDS: BUMETANIDE 1 MG/4 ML VIAL 2 MG IVP ×2 (08:35→20:06)
[2024-01-07] MEDS: ASPIRIN 81 MG TAB.CHEW PO (08:35)
[2024-01-07] MEDS: CANAGLIFLOZIN 100 MG TABLET PO (08:35)
[2024-01-07] MEDS: POTASSIUM CHLORIDE 10 MEQ ER TABLET 20 MEQ PO ×2 (08:35→20:05)
[2024-01-07] MEDS: ENOXAPARIN SODIUM 60 MG/0.6 ML SYRINGE SUBQ ×2 (08:35→20:05)
[2024-01-07] MEDS: LOSARTAN POTASSIUM 50 MG TABLET PO (08:37)
--- NOTE | 2024-01-07 10:09 | REH.PTDLY ---
Physical Therapy Daily Note PT Daily Note/Assess Start: 01/04/24 10:25 Freq: Status: Active Protocol: Document 01/07/24 10:04 KALE (Rec: 01/07/24 10:09 KALE [id number]) Physical Therapy Daily Note/Assessment Time In 09:45 Time Out 10:00 Subjective Pt sitting bedside on phone upon arrival. States he will be here another day or two. Lost 8 L of fluid so far. Agreeable to therapy. Therapeutic Exercise Minutes (minutes) 9 Therapeutic Exercise Units 1 Therapeutic Exercise Treatment Instructed in seated exs 15x2 with B LE with exs including AP, circles, hip abd, LAQ, and marching. Lesser ROM in L ankle compared to R, but improved motion in R with fluid loss. Therapeutic Activity Minutes (minutes) 5 Therapeutic Activity Units 0 Therapeutic Activity Comments Sit to stand transfers 2x from bed with pt utilizing RW once standing, pt has increased pain in L achilles insertion and immediately sits back down . Pt is tender with palpation just above heel at tendon. No pain when he is not weight bearing. Total Therapy Minutes 14 Total Physical Therapy Units 1 Daily Note Summary Attempted to ambulate to chair this morning, but pt has increased pain with weight bearing in L Achilles that causes him to sit back down. Attempted 2x, but unable to ambulate, nursing notified.
--- NOTE | 2024-01-07 11:14 | P.PN_ITS ---
Progress Note: Subjective Subjective Interval history: Patient sleeping this morning, awakened easily though. This is already after breakfast. Patient still has significant weakness and shortness of breath but does overall feel somewhat improved from admission. So far he is diuresed 19 L Exam Constitutional Vital Signs, click to edit/add: Last Vital Signs Temp 99.5 F 01/07/24 06:00 Pulse 82 01/07/24 10:00 Resp 20 01/07/24 06:00 BP 100/55 01/07/24 06:00 Pulse Ox 91 L 01/07/24 06:00 O2 Del Method Room Air 01/07/24 06:00 Common normals: oriented x3 General appearance: cooperative and comfortable Nutritional appearance: obese Respiratory Common normals: normal respiratory effort, no use of accessory muscles and clear to auscultation bilaterally Effort & inspection: able to speak in complete sentences Auscultation: diminished lung sounds Cardio Common normals: regular rate, regular rhythm, S1 normal heart sound and S2 normal heart sound Extremity Common normals: full ROM General: edema (+2 lower extremity edema bilaterally. Unchanged from previous) Neuro Common normals: oriented x3, moves all extremities and no focal motor deficits Psych Common normals: mental status grossly normal, thought process normal, denies homicidal ideation and denies suicidal ideation Progress Note: Objective Labs Labs: Short CBC 01/07/24 Range/Units 05:38 WBC 5.1 (4.0-11.0) 10^3/uL Hgb 11.2 L (14.0-18.0) g/dL Hct 36.4 L (42.0-54.0) % Plt Count 191 (150-450) 10^3/uL BMP 01/07/24 05:38 Sodium 136 Potassium 4.1 Chloride 100 Carbon Dioxide 31.5 BUN 25.0 H Creatinine 1.57 H Glucose 129 H Calcium 8.5 Liver Function 01/07/24 Range/Units 05:38 Total Bilirubin 1.3 H (0.2-1.0) mg/dL AST 14 L (15-37) U/L ALT 17 (16-63) U/L Alkaline Phosphatase 127 H (46-116) U/L Albumin 2.6 L (3.4-5.0) g/dL Progress Note: A&P Assessment and Plan (1) Acute on chronic congestive heart failure: Qualifiers: Heart failure type: systolic Qualified Code(s): I50.23 - Acute on chronic systolic (congestive) heart failure (2) Anasarca: (3) Diabetes mellitus type 2 with complications: (4) Chronic kidney disease, stage III (moderate): Qualifiers: Chronic kidney disease stage 3 subtype: stage 3a (GFR 45-59) Qualified Code(s): N18.31 - Chronic kidney disease, stage 3a (5) COPD (chronic obstructive pulmonary disease): Qualifiers: COPD type: unspecified COPD Qualified Code(s): J44.9 - Chronic obstructive pulmonary disease, unspecified (6) Hypertension: Qualifiers: Hypertension type: primary hypertension Qualified Code(s): I10 - Essential (primary) hypertension (7) Morbid obesity: Plan Admission findings: Hyperglycemia, respiratory distress secondary to significant fluid overload with acute on chronic combined congestive heart failure-patient admitted for workup and treatment of same Acute on chronic congestive heart failure with L VH, and diastolic dysfunction with pulmonary hypertension moderate: Diuresing well at 19 L so far with current management. Continue with that for 1-2 additional days. Anasarca: Continue with treatment as outlined above Diabetes mellitus type 2 with complications: Continue with insulin sliding scale. Sugars improved Chronic kidney disease, stage III (moderate): Up slightly today. Continue to monitor with diuresis likely expect that to be worse tomorrow COPD (chronic obstructive pulmonary disease): Stable continue current treatment, no sputum production Hypertension: Currently stable, continue with current medication Morbid obesity: Diet management Moderate protein calorie malnutrition-diet management Iron deficiency anemia as well as anemia of chronic kidney disease-monitor daily Hypomagnesemia-supplement and monitor Admission status: Patient mated with acute combined congestive heart failure, medically necessary treatment will span more than 2 midnights. Inpatient status.
[2024-01-07] MEDS: MAGNESIUM OXIDE 400 MG TABLET PO ×2 (12:40→20:06)
[2024-01-07] MEDS: ATORVASTATIN CALCIUM 40 MG TABLET PO (20:06)
[2024-01-07] MEDS: OXYCODONE HCL 5 MG TABLET PO (20:10)
[2024-01-08] VITALS (12 sets, daily range): BP systolic 117–140; BP diastolic 71–83; PULSE 70–94; TEMP 36.6–36.9; O2SAT 90–96
[2024-01-08 05:40] LABS: Basophils Percent Auto 0.4 % (0.2-2.0); Eosinophils Absolute Auto 0.1 10^3/uL (0.0-0.7); Eosinophils Percent Auto 1.8 % (0.9-7.0); Hemoglobin 10.8 g/dL (14.0-18.0); Immature Granulocytes Abs Auto 0.02 10^3/uL (0.00-0.03); Immature Granulocytes Pct Auto 0.4 % (0.0-0.5); Lymphocytes Absolute Auto 1.2 10^3/uL (1.2-3.8); Lymphocytes Percent Auto 22.7 % (20.5-60.0); Mean Corpuscular HGB Conc 30.9 g/dL (29.9-35.2); Mean Corpuscular Volume 84.3 fL (80.0-94.0); Mean Platelet Volume 9.5 fL (9.5-13.5); Monocytes Absolute Auto 0.6 10^3/uL (0.3-0.8); Monocytes Percent Auto 12.2 % (1.7-12.0); Neutrophils Absolute Auto 3.2 10^3/uL (1.4-6.5); Neutrophils Percent Auto 62.5 % (43.0-75.0); Platelet Count 177 10^3/uL (150-450); Red Blood Count 4.15 10^6/uL (4.70-6.10); Red Cell Distribution Width 15.3 % (11.0-15.0); White Blood Count 5.1 10^3/uL (4.0-11.0)
[2024-01-08 05:59] LABS: Alanine Aminotransferase 18 U/L (16-63); Albumin Globulin Ratio 0.7; Albumin Level 2.7 g/dL (3.4-5.0); Alkaline Phosphatase 126 U/L (46-116); Anion Gap 7.9; Aspartate Amino Transferase 20 U/L (15-37); BUN Creatinine Ratio 15.8; Bilirubin Total 0.9 mg/dL (0.2-1.0); Calcium 8.6 mg/dL (8.5-10.1); Carbon Dioxide 32.2 mmol/L (21.0-32.0); Chloride 100 mmol/L (98-107); Estimated GFR (African America 55 (>=60); Estimated GFR (Non-African Ame 45 (>=60); Glucose 124 mg/dL (74-106); Potassium 4.1 mmol/L (3.5-5.1); Sodium 136 mmol/L (136-145); Total Protein 6.7 g/dL (6.4-8.2)
[2024-01-08 06:09] LABS: Magnesium 2.2 mg/dL (1.8-2.4)
[2024-01-08] MEDS: CARVEDILOL 12.5 MG TABLET PO ×2 (08:29→21:07)
[2024-01-08] MEDS: POTASSIUM CHLORIDE 10 MEQ ER TABLET 20 MEQ PO ×2 (08:29→21:07)
[2024-01-08] MEDS: CANAGLIFLOZIN 100 MG TABLET PO (08:29)
[2024-01-08] MEDS: MAGNESIUM OXIDE 400 MG TABLET PO ×2 (08:29→21:07)
[2024-01-08] MEDS: ASPIRIN 81 MG TAB.CHEW PO (08:29)
[2024-01-08] MEDS: SPIRONOLACTONE 25 MG TABLET 50 MG PO (08:30)
[2024-01-08] MEDS: ENOXAPARIN SODIUM 60 MG/0.6 ML SYRINGE SUBQ ×2 (08:30→21:06)
[2024-01-08] MEDS: BUMETANIDE 1 MG/4 ML VIAL 2 MG IVP ×2 (08:30→19:15)
[2024-01-08] MEDS: LOSARTAN POTASSIUM 50 MG TABLET PO (08:33)
--- NOTE | 2024-01-08 08:46 | P.PN_ITS ---
Progress Note: Subjective Subjective Interval history: Breathing strength and little improved from previous day. 6 L more diuresed yesterday. Exam Constitutional Vital Signs, click to edit/add: Last Vital Signs Temp 97.9 F 01/08/24 06:00 Pulse 89 01/08/24 06:06 Resp 18 01/08/24 06:00 BP 117/71 01/08/24 06:00 Pulse Ox 91 L 01/08/24 06:00 O2 Del Method Room Air 01/08/24 06:00 Common normals: oriented x3 General appearance: cooperative and comfortable Nutritional appearance: obese Respiratory Common normals: normal respiratory effort, no use of accessory muscles and clear to auscultation bilaterally Effort & inspection: able to speak in complete sentences Auscultation: diminished lung sounds Cardio Common normals: regular rate, regular rhythm, S1 normal heart sound and S2 normal heart sound Extremity Common normals: full ROM General: edema (+2 lower extremity edema, slightly improved from previous, no erythema) Neuro Common normals: oriented x3, moves all extremities and no focal motor deficits Psych Common normals: mental status grossly normal, thought process normal, denies homicidal ideation and denies suicidal ideation Progress Note: Objective Labs Labs: Short CBC 01/08/24 Range/Units 05:30 WBC 5.1 (4.0-11.0) 10^3/uL Hgb 10.8 L (14.0-18.0) g/dL Hct 35.0 L (42.0-54.0) % Plt Count 177 (150-450) 10^3/uL BMP 01/08/24 05:30 Sodium 136 Potassium 4.1 Chloride 100 Carbon Dioxide 32.2 H BUN 25.0 H Creatinine 1.58 H Glucose 124 H Calcium 8.6 Liver Function 01/08/24 Range/Units 05:30 Total Bilirubin 0.9 (0.2-1.0) mg/dL AST 20 (15-37) U/L ALT 18 (16-63) U/L Alkaline Phosphatase 126 H (46-116) U/L Albumin 2.7 L (3.4-5.0) g/dL Progress Note: A&P Assessment and Plan (1) Acute on chronic congestive heart failure: Qualifiers: Heart failure type: systolic Qualified Code(s): I50.23 - Acute on chronic systolic (congestive) heart failure (2) Anasarca: (3) Diabetes mellitus type 2 with complications: (4) Chronic kidney disease, stage III (moderate): Qualifiers: Chronic kidney disease stage 3 subtype: stage 3a (GFR 45-59) Qualified Code(s): N18.31 - Chronic kidney disease, stage 3a (5) COPD (chronic obstructive pulmonary disease): Qualifiers: COPD type: unspecified COPD Qualified Code(s): J44.9 - Chronic obstructive pulmonary disease, unspecified (6) Hypertension: Qualifiers: Hypertension type: primary hypertension Qualified Code(s): I10 - Essential (primary) hypertension (7) Morbid obesity: Plan Admission findings: Hyperglycemia, respiratory distress secondary to significant fluid overload with acute on chronic combined congestive heart failure-patient admitted for workup and treatment of same Acute on chronic congestive heart failure with LVH, and diastolic dysfunction with pulmonary hypertension moderate: Diuresing well at 25L with a net of 21 L so far with current management. Continue with that for 1 additional days. Anasarca: Continue with treatment as outlined above Diabetes mellitus type 2 with complications: Continue with insulin sliding scale. Sugars improved Chronic kidney disease, stage III (moderate): Up slightly today. Continue to monitor with diuresis likely expect that to be worse tomorrow COPD (chronic obstructive pulmonary disease): Stable continue current treatment, no sputum production Hypertension: Currently stable, continue with current medication Morbid obesity: Diet management Moderate protein calorie malnutrition-diet management Iron deficiency anemia as well as anemia of chronic kidney disease-monitor daily Hypomagnesemia-supplement and monitor Admission status: Patient admitted with acute combined congestive heart failure, medically necessary treatment will span more than 2 midnights. Inpatient Status with significant progression of the last 3 days, likely discharge to home tomorrow
[2024-01-08] MEDS: INSULIN ASPART 300 UNIT/3 ML PEN SUBQ (11:50)
[2024-01-08] MEDS: ATORVASTATIN CALCIUM 40 MG TABLET PO (21:06)
[2024-01-08] MEDS: OXYCODONE HCL 5 MG TABLET PO (21:07)
[2024-01-09 05:53] VITALS: BP 100/60; PULSE 73; TEMP 36.4; O2SAT 97
--- NOTE | 2024-01-09 07:45 | P.DS_ITS ---
DS: Providers Provider Date of admission: 01/02/24 19:48 Primary care physician: MERRITT THACKER Consults: 01/03/24 07:08 Occupational Therapy Eval and Treat Routine Reason for consultation: Ambulatory dysfunction/weakness Physical Therapy Eval and Treat Routine Reason for consultation: Ambulatory dysfunction/weakness 01/03/24 10:40 Consult to Cardiology Routine Reason for consultation: Acute on chronic congestive HF DS: Diagnosis Discharge Diagnosis (1) Acute on chronic congestive heart failure: Qualifiers: Heart failure type: systolic Qualified Code(s): I50.23 - Acute on chronic systolic (congestive) heart failure (2) Anasarca: (3) Diabetes mellitus type 2 with complications: (4) Chronic kidney disease, stage III (moderate): Qualifiers: Chronic kidney disease stage 3 subtype: stage 3a (GFR 45-59) Qualified Code(s): N18.31 - Chronic kidney disease, stage 3a (5) COPD (chronic obstructive pulmonary disease): Qualifiers: COPD type: unspecified COPD Qualified Code(s): J44.9 - Chronic obstructive pulmonary disease, unspecified (6) Hypertension: Qualifiers: Hypertension type: primary hypertension Qualified Code(s): I10 - Essential (primary) hypertension (7) Morbid obesity: Plan Admission findings: Hyperglycemia, respiratory distress secondary to significant fluid overload with acute on chronic combined congestive heart failure-patient admitted for workup and treatment of same Acute on chronic congestive heart failure with LVH, and diastolic dysfunction with pulmonary hypertension moderate: Diuresed a net of 29 L with this admission, improving at discharge Anasarca: Improving at the time of discharge Diabetes mellitus type 2 with complications: Stable at the time of discharge Chronic kidney disease, stage III (moderate): Stable at the time of discharge COPD (chronic obstructive pulmonary disease): Stable at the time of discharge Hypertension: Stable at the time of discharge Morbid obesity: Diet management Moderate protein calorie malnutrition-diet management Iron deficiency anemia as well as anemia of chronic kidney disease-monitor as an outpatient Hypomagnesemia-supplement and monitor Admission status: Patient admitted with acute combined congestive heart failure, medically necessary treatment will span more than 2 midnights. Inpatient Status with significant progression of the last 3 days, likely discharge to home tomorrow ? DS: Summary Hospital Course Hospital Course: Patient was seen and evaluated emergency room due to increasing shortness of breath. Patient found to have acute fluid overload and acute combined congestive heart failure with history of chronic combined congestive heart failure and anasarca. Patient was placed on IV diuretics being Bumex and Aldactone. Patient tolerated this well from a blood pressure standpoint. He diuresed 34 L with a net of 29 L. Patient overall feels improved. His ability to ambulate is improved. Sugars are stabilized. At this point we will discharge patient to home in improving condition. Medications see list. Follow-up with his PCP and cardiology within the next week. Status at Discharge Overall status at discharge: patient is not back to baseline Time Spent with Patient Time attestation: Total time spent providing and/or coordinating discharge services: Time spent: greater than 30 minutes Exam Constitutional Vital Signs, click to edit/add: Last Vital Signs Temp 97.6 F 01/09/24 05:53 Pulse 73 01/09/24 05:53 Resp 20 01/09/24 05:53 BP 100/60 01/09/24 05:53 Pulse Ox 97 01/09/24 05:53 O2 Del Method Room Air 01/09/24 05:53 Common normals: oriented x3 General appearance: cooperative and comfortable Nutritional appearance: obese Respiratory Common normals: normal respiratory effort, no use of accessory muscles and clear to auscultation bilaterally Effort & inspection: able to speak in complete sentences Auscultation: diminished lung sounds Cardio Common normals: regular rate, regular rhythm, S1 normal heart sound and S2 normal heart sound Extremity Common normals: full ROM General: edema (+2 lower extremity edema, stable) Neuro Common normals: oriented x3, moves all extremities and no focal motor deficits Psych Common normals: mental status grossly normal, thought process normal, denies homicidal ideation and denies suicidal ideation Discharge Plan Discharge Disposition: Home Health Service Condition: Fair Discharge Medications: New losartan 50 mg Tablet 50 mg PO Q24H Qty: 30 11RF atorvastatin 40 mg Tablet 40 mg PO QHS Qty: 60 11RF carvedilol 12.5 mg Tablet 12.5 mg PO BID Qty: 60 11RF spironolactone 25 mg Tablet 25 mg PO QD Qty: 30 11RF magnesium oxide 400 mg (241.3 mg magnesium) Tablet 400 mg PO BID Qty: 60 11RF aspirin 81 mg Tablet,Chewable 81 mg PO QD Qty: 30 11RF Invokana 100 mg Tablet 100 mg PO QD Qty: 30 11RF Continued Rybelsus 7 mg tablet 7 mg PO DAILY metformin 1,000 mg tablet 1,000 mg PO BID isosorbide mononitrate 30 mg Tablet Extended Release 24 Hr 30 mg PO Q24H 15 Days Qty: 15 0RF bumetanide 1 mg Tablet 1 mg PO DAILY 15 Days Qty: 15 0RF metoprolol tartrate 25 mg Tablet 25 mg PO BID 15 Days Qty: 30 0RF albuterol sulfate 90 mcg/actuation HFA aerosol inhaler 2 inh inhalation Q4H PRN (Reason: shortness of breath or wheezing) Qty: 6.7 0RF Print Language: Indonesian Security Technician/Veterinary Pathologist Instructions: Discharge with [facility], they will reach out to coordinate a time to come see patient. Phone number [phone] Forms: Portal Instructions
--- NOTE | 2024-01-09 08:04 | CM.NOTE ---
Rounds made with Dr. Breen, discussed with pt discharge to home this afternoon and importance of f/u appt with primary care doctor and cardiology. Pt will discharge with [facility] [address].
[2024-01-09 08:17] VITALS: BP 116/72; PULSE 74; TEMP 36.9; O2SAT 92
--- NOTE | 2024-01-09 08:25 | CM.NOTE ---
Faxed Discharge Summary, med list, updated PT note, and last Physician note to [facility].
--- NOTE | 2024-01-09 08:27 | CM.NOTE ---
2nd Important Message From Medicare discussed with pt, pt denies any questions or concerns.
[2024-01-09] MEDS: ENOXAPARIN SODIUM 60 MG/0.6 ML SYRINGE SUBQ (09:08)
[2024-01-09] MEDS: MAGNESIUM OXIDE 400 MG TABLET PO (09:09)
[2024-01-09] MEDS: SPIRONOLACTONE 25 MG TABLET 50 MG PO (09:09)
[2024-01-09] MEDS: CANAGLIFLOZIN 100 MG TABLET PO (09:09)
[2024-01-09] MEDS: ASPIRIN 81 MG TAB.CHEW PO (09:09)
[2024-01-09] MEDS: POTASSIUM CHLORIDE 10 MEQ ER TABLET 20 MEQ PO (09:09)
[2024-01-09] MEDS: CARVEDILOL 12.5 MG TABLET PO (09:10)
[2024-01-09] MEDS: LOSARTAN POTASSIUM 50 MG TABLET PO (09:12)
[2024-01-09] MEDS: BUMETANIDE 1 MG/4 ML VIAL 2 MG IVP (09:13)
--- NOTE | 2024-01-09 10:35 | SWNOTE1 ---
Pt is being discharged home today. He is returning home with [facility]. Case management faxed dc orders, CRF, and dc summary to [facility]. Pt's cousin will be picking pt up, but he is not answering his phone. SW called pt's cousin as well and he did not answer. ROLAND left message. Pt's cousin did return phone call and will call pt to let pt know the time he is coming. ROLAND let nursing know.
--- NOTE | 2024-01-10 11:18 | CM.DCFOLLOWU ---
Person spoke with: Cristobal How are you feeling? Much better How is your pain? No pain Did you understand your discharge instructions? Yes Do you have any questions about your discharge instructions? No Were you given any prescriptions at discharge? Yes Were you able to get your prescriptions filled? Picking them up now, I couldn't afford the Invokana but reached out to Dr. Woo office to call in a different medication Do you understand how to take your medications as ordered? Yes Do you have any questions about your follow up appointment and do you plan to keep your follow up appointment? F/u appt is scheduled and I plan on going to appt. Is there anything else that you would like to discuss? No Questions/Comments/Concerns/Other:
== END 2024-01-09 10:55 | disposition home health service (06) | DRG 291 ==
LOC: ER 18:57 → MS 20:02
PROVIDERS: Internal Medicine; Registered Nurse; Admitting Provider Family Medicine; Emergency Provider Student in an Organized Health Care Education/Training Program; PCP Internal Medicine; Visit Provider Family Medicine
DX: I13.0 Hypertensive heart and chronic kidney disease with heart failure and stage 1 through stage 4 chronic kidney disease, or unspecified chronic kidney disease (principal); I50.41 Acute combined systolic (congestive) and diastolic (congestive) heart failure; Z68.44 Body mass index [BMI] 60.0-69.9, adult; E44.0 Moderate protein-calorie malnutrition; E11.22 Type 2 diabetes mellitus with diabetic chronic kidney disease; J44.9 Chronic obstructive pulmonary disease, unspecified; N18.30 Chronic kidney disease, stage 3 unspecified; E66.01 Morbid (severe) obesity due to excess calories; R60.1 Generalized edema; E11.65 Type 2 diabetes mellitus with hyperglycemia; R06.03 Acute respiratory distress; D50.9 Iron deficiency anemia, unspecified; D63.1 Anemia in chronic kidney disease; E83.42 Hypomagnesemia; I27.20 Pulmonary hypertension, unspecified; Z79.84 Long term (current) use of oral hypoglycemic drugs
CPT/HCPCS: 36415; 71045; 80048; 80053; 80061; 80076; 82948; 83735; 83880; 84484; 85025; 85610; 85730; 93005; 94761; 96365; 96368; 96372; 96375; 96376; 97110; 97162; 97165; 97535; 99285; J1650; J1940; J3475

== ENCOUNTER 2024-12-11 13:44 | Inpatient (IN) | payer MEDICARE, SELFPAY ==
[2024-12-11] VITALS (34 sets, daily range): BP systolic 111–176; BP diastolic 53–84; PULSE 65–114; TEMP 36.6–37.3; O2SAT 83–97; BMI 67.8; BMI 69.1
--- NOTE | 2024-12-11 13:57 | XR_ITS ---
The [address] [address] Patient Name: TANIA SANTANA MRN: [id number] date: 1965 Sex: M Assigned Patient Location: ER Current Patient Location: ER Accession/Order Number: [id number] Exam Date: 12/11/2024 14:34 Report Date: 12/11/2024 14:35 At the request of: RAMON MARROQUIN MD Procedure: XR chest 1V PA CHEST: CLINICAL HISTORY: SOB Comparison: 01/06/2024 FINDINGS: Unremarkable cardiac mediastinal silhouette. Right infrahilar/right basilar airspace disease. Left lung grossly clear. No pneumothorax or definite effusion. XR/XR chest 1V IMPRESSION: Right basilar opacity possibly related to airspace disease such as atelectasis. Impression dictated by: Keanu Morris M.D. 12/11/2024 2:35 PM Dictation Location: [place] [address] Electronically authenticated by: [id number] Y Date: 12/11/2024 14:35
--- NOTE | 2024-12-11 13:57 | ECG_ITS ---
The [facility] Test Date: 2024-12-11 Pat Name: TANIA SANTANA Department: Room: - Gender: Male Plant Associate: : 1965 Requested By: MERRITT THACKER Order Number: [id number] Reading MD: BRAXTON SIMONS Measurements Intervals [place] Rate: 88 P: 77 MI: 182 QRS: -10 QRSD: 102 T: 42 QT: 358 QTc: 403 Interpretive Statements 1100 Sinus rhythm 3132 Anterior myocardial infarction cannot be ruled out 9150 abnormal ECG Compared to ECG 01/02/2024 16:47:00 Junctional rhythm no longer present Myocardial infarct finding still present Electronically Signed On 12-14-2024 9:45:17 EDT by BRAXTON SIMONS
--- NOTE | 2024-12-11 13:58 | ED.GENADUL1 ---
HPI HPI - General Adult General Chief complaint: Shortness of Breath/Dyspnea Stated complaint: SOB Time Seen by Provider: 12/11/24 13:49 Source: patient Mode of arrival: Wheelchair History of Present Illness HPI narrative: 59-year-old male presents to the emergency department for a chief complaint of shortness of breath. He has had a slight cough and occasionally will cough up some minimal white phlegm. No hemoptysis or fever. He does not complain of chest pain. He states his legs are no more swollen than normal. He is worried about having congestive heart failure which he states he had a year and a half ago. He has never smoked. Related Data Home Medications ?Medication ?Instructions ?Recorded ?Confirmed metformin 1,000 mg tablet 1,000 mg PO BID 12/16/23 12/11/24 cetirizine 10 mg tablet 10 mg PO QAM 12/11/24 12/11/24 furosemide 40 mg tablet 40 mg PO DAILY 12/11/24 12/11/24 magnesium oxide 400 mg (241.3 mg 250 mg PO DAILY 12/11/24 12/11/24 magnesium) tablet Previous Rx's ?Medication ?Instructions ?Recorded albuterol sulfate 90 mcg/actuation 2 inh inhalation Q4H PRN shortness 12/18/23 aerosol inhaler of breath or wheezing #6.7 grams aspirin 81 mg chewable tablet 81 mg PO QD #30 tabs 01/09/24 atorvastatin 40 mg tablet 40 mg PO QHS #60 tabs 01/09/24 carvedilol 12.5 mg tablet 12.5 mg PO BID #60 tabs 01/09/24 losartan 50 mg tablet 50 mg PO Q24H #30 tabs 01/09/24 spironolactone 25 mg tablet 25 mg PO QD #30 tabs 01/09/24 Allergies Allergy/AdvReac Type Severity Reaction Status Date / Time topiramate (From Topamax) AdvReac Intermediate Altered Verified 12/16/23 07:22 Sense of Taste Opioid HPI Opioid Management Most Recent Opioid Data: Last Pain Scale 0 01/09/24, 10:09 Last Pain Intensity 7 01/06/24, 10:21 Last ORT Total Score 0 01/02/24, 20:12 Last ORT Risk Category Low Risk 01/02/24, 20:12 Review of Systems ROS Narrative A ten point review of systems is negative except as noted above. PFSH PFSH Medical History (Updated 12/11/24 @ 16:21 by Yovanny Cherry MD) Morbid obesity ?E66.01 - Morbid (severe) obesity due to excess calories (ICD-10) Acute on chronic congestive heart failure ?I50.9 - Heart failure, unspecified (ICD-10) Acute combined systolic (congestive) and diastolic (congestive) heart failure ?I50.41 - Acute combined systolic (congestive) and diastolic (congestive) heart failure (ICD-10) Diabetes mellitus type 2 with complications ?E11.8 - Type 2 diabetes mellitus with unspecified complications (ICD-10) Anemia in chronic kidney disease ?N18.9 - Chronic kidney disease, unspecified (ICD-10) ?D63.1 - Anemia in chronic kidney disease (ICD-10) Chronic kidney disease, stage III (moderate) ?N18.30 - Chronic kidney disease, stage 3 unspecified (ICD-10) COPD (chronic obstructive pulmonary disease) ?J44.9 - Chronic obstructive pulmonary disease, unspecified (ICD-10) Moderate protein-calorie malnutrition ?E44.0 - Moderate protein-calorie malnutrition (ICD-10) Hypertension ?I10 - Essential (primary) hypertension (ICD-10) Pulmonary edema ?J81.1 - Chronic pulmonary edema (ICD-10) Anasarca ?R60.1 - Generalized edema (ICD-10) Abnormal colonoscopy ?R93.3 - Abnormal findings on diagnostic imaging of other parts of digestive tract (ICD-10) Surgical History History of appendectomy ?Z90.49 - Acquired absence of other specified parts of digestive tract (ICD-10) Family History (Updated 01/02/24 @ 20:27 by Vale Caro RN) Father Diabetes Mother CHF (congestive heart failure) Social History Within the past year, how often did you have a drink containing alcohol: never Within the past year, how many standard drinks containing alcohol did you have on a typical day: 1 or 2 Total score: 0 Score interpretation: A score less than 4 is consistent with normal alcohol consumption. Smoking status: Never smoker Second hand tobacco smoke exposure: No Non-prescribed substance use: denies use Previous occupational history: retired Highest level of school completed/degree received: high school graduate Are you now , , , , never or living with a partner: never In a typical week, how many times do you talk on the telephone with family, friends, or neighbors: 3 or more times per week How often do you get together with friends or relatives: 3 or more times per week How often do you attend scientologist or adventism services: never Do you belong to any clubs or organizations such as scientologist groups unions, [employer] or athletic groups, or school groups: no Total score: 1 Score interpretation: A score of less than or equal to 1 indicates the most socially isolated. Little interest or pleasure in doing things: not at all Feeling down, depressed, or hopeless: not at all Feel stressed/tense/nervous/anxious/difficulty sleeping: not at all Due to disability, difficulty making decisions: No Do you think of yourself as: straight/heterosexual Gender Identity: male Exam Narrative Exam Narrative: Nurses note and vital signs reviewed and patient is not hypoxic. General: The patient appears in no apparent distress. Skin: Warm, dry, no pallor noted. There is no rash noted. Head: Normocephalic, atraumatic Eye: Normal conjunctiva, no drainage Ears, Nose, Mouth, and Throat: oral mucosa is moist. Nares patent. Cardiovascular: Regular Rate and Rhythm, mildly tachycardia Respiratory: Breath sounds are distant due to body morphology GI: Obese and nontender Musculoskeletal: Trace edema in each Neurological: A&O, normal speech Psychiatric: Cooperative Constitutional Vital Signs, click to edit/add: Last Vital Signs Temp 99.1 F 12/11/24 13:50 Pulse 84 12/11/24 16:20 Resp 38 H 12/11/24 16:20 BP 124/66 12/11/24 16:01 Pulse Ox 95 12/11/24 16:20 O2 Del Method Nasal Cannula 12/11/24 13:56 O2 Flow Rate 2 12/11/24 14:23 Course Vital Signs Vital signs: Vital Signs Temperature 99.1 F 12/11/24 13:50 Pulse Rate 114 H 12/11/24 13:50 Respiratory Rate 24 H 12/11/24 13:50 Blood Pressure 176/84 H 12/11/24 13:50 Pulse Oximetry 89 L 12/11/24 13:50 Oxygen Delivery Method Room Air 12/11/24 13:50 Temperature 99.1 F 12/11/24 13:50 Pulse Rate 84 12/11/24 16:20 Respiratory Rate 38 H 12/11/24 16:20 Blood Pressure 124/66 12/11/24 16:01 Pulse Oximetry 95 12/11/24 16:20 Oxygen Delivery Method Nasal Cannula 12/11/24 13:56 Oxygen Delivery Flow Rate 2 12/11/24 14:23 Medical Decision Making MDM Narrative Medical decision making narrative: Chest x-ray suggested the possibility of atelectasis in the right lower lobe with airspace disease but his symptoms are more consistent with pneumonia. He is coughing up some phlegm and has minimal elevation in his WBC and minimal in his lactic acid as well. CT scan was ordered but does not show evidence of PE and they do not suggest pneumonia on the CT scan. Blood cultures were obtained and he was given IV Rocephin and Zithromax. Findings were discussed with the patient. No evidence of CHF. Differential Diagnosis Differential Diagnosis: CHF, pulmonary edema, PE, pneumonia Lab Data Lab results reviewed: Yes I reviewed the patient's lab results Labs: Lab Results 12/11/24 12/11/24 12/11/24 Range/Units 14:00 14:27 14:50 WBC 11.2 H (4.0-11.0) 10^3/uL RBC 4.98 (4.70-6.10) 10^6/uL Hgb 13.6 L (14.0-18.0) g/dL Hct 43.4 (42.0-54.0) % MCV 87.1 (80.0-94.0) fL MCH 27.3 (25.9-34.0) pg MCHC 31.3 (29.9-35.2) g/dL RDW 14.4 (11.0-15.0) % Plt Count 248 (150-450) 10^3/uL MPV 10.2 (9.5-13.5) fL Neut % (Auto) 77.2 H (43.0-75.0) % Lymph % (Auto) 14.0 L (20.5-60.0) % Newberry % (Auto) 6.1 (1.7-12.0) % Eos % (Auto) 1.6 (0.9-7.0) % Baso % (Auto) 0.4 (0.2-2.0) % Neut # (Auto) 8.7 H (1.4-6.5) 10^3/uL Lymph # (Auto) 1.6 (1.2-3.8) 10^3/uL Newberry # (Auto) 0.7 (0.3-0.8) 10^3/uL Eos # (Auto) 0.2 (0.0-0.7) 10^3/uL Baso # (Auto) 0.1 (0.0-0.1) 10^3/uL Abs Immat Gran (auto) 0.08 H (0.00-0.03) 10^3/uL Imm/Tot Granulo (auto) 0.7 H (0.0-0.5) % Sodium 142 (136-145) mmol/L Potassium 3.9 (3.5-5.1) mmol/L Chloride 103 (98-107) mmol/L Carbon Dioxide 31.8 (21.0-32.0) mmol/L Anion Gap 11.1 BUN 35.0 H (7.0-18.0) mg/dL Creatinine 1.46 H (0.70-1.30) mg/dL Est GFR ( Amer) 60 (>=60 mL/min/1.73m^2) Est GFR (Non-Af Amer) 49 L (>=60 mL/min/1.73m^2) BUN/Creatinine Ratio 24.0 Glucose 263 H (74-106) mg/dL Lactate 3.2 H* (0.4-2.0) mmol/L Calcium 9.0 (8.5-10.1) mg/dL Troponin I High Sens 40.5 (4.0-76.1) pg/mL NT-Pro-B Natriuret Pep 4801.0 H* (<=900.0) pg/mL SARS-CoV-2 Ag (CV2AG) Negative (NEGATIVE) Imaging Data Chest x-ray: Radiologist's impression: ITS Impressions Chest X-Ray 12/11/24 13:57 IMPRESSION: Right basilar opacity possibly related to airspace disease such as atelectasis. Impression dictated by: Keanu Morris M.D. 12/11/2024 2:35 PM Dictation Location: [facility] Electronically authenticated by: [id number] Y Date: 12/11/2024 14:35 Chest CTA 12/11/24 14:48 IMPRESSION: Negative for aortic dissection or aortic aneurysm. Cardiac megaly with LAD coronary artery disease. Hypoventilatory changes without acute airspace disease. Impression dictated by: Keanu Morris M.D. 12/11/2024 3:39 PM Dictation Location: [facility] Electronically authenticated by: [id number] Y Date: 12/11/2024 15:39 ECG Data Attestation: I personally reviewed and interpreted this ECG as follows: (EKG on my interpretation shows normal sinus rhythm with a rate of 88 and no acute change) Discharge Plan Discharge Chief Complaint: Shortness of Breath/Dyspnea Clinical Impression: Community acquired pneumonia, Hypoxemia Patient Disposition: Admitted As Inpatient Time of Disposition Decision: 16:21 Condition: Fair
[2024-12-11 14:11] LABS: Hematocrit 43.4 % (42.0-54.0); Hemoglobin 13.6 g/dL (14.0-18.0); Immature Granulocytes Abs Auto 0.08 10^3/uL (0.00-0.03); Immature Granulocytes Pct Auto 0.7 % (0.0-0.5); Lymphocytes Absolute Auto 1.6 10^3/uL (1.2-3.8); Mean Corpuscular HGB Conc 31.3 g/dL (29.9-35.2); Mean Corpuscular Hemoglobin 27.3 pg (25.9-34.0); Mean Corpuscular Volume 87.1 fL (80.0-94.0); Platelet Count 248 10^3/uL (150-450); Red Blood Count 4.98 10^6/uL (4.70-6.10); White Blood Count 11.2 10^3/uL (4.0-11.0)
[2024-12-11 14:31] LABS: Anion Gap 11.1; Blood Urea Nitrogen 35.0 mg/dL (7.0-18.0); Calcium 9.0 mg/dL (8.5-10.1); Carbon Dioxide 31.8 mmol/L (21.0-32.0); Chloride 103 mmol/L (98-107); Estimated GFR (African America 60 (>=60 mL/min/1.73m^2); Estimated GFR (Non-African Ame 49 (>=60 mL/min/1.73m^2); Glucose 263 mg/dL (74-106); Potassium 3.9 mmol/L (3.5-5.1); Sodium 142 mmol/L (136-145)
[2024-12-11 14:35] LABS: NT Pro B Type Natriuretic Pept 4801.0 pg/mL (<=900.0)
--- NOTE | 2024-12-11 14:48 | CT_ITS ---
The [address] [address] Patient Name: TANIA SANTANA MRN: [id number] date: 1965 Sex: M Assigned Patient Location: ER Current Patient Location: ER Accession/Order Number: [id number] Exam Date: 12/11/2024 15:34 Report Date: 12/11/2024 15:39 At the request of: RAMON MARROQUIN MD Procedure: CT angio chest CTA chest CLINICAL DATA: Shortness breath for 3 to 4 days with sinus drainage and cough. TECHNIQUE: Intravenous contrast-enhanced CT angiography of the chest was performed. Axial, sagittal, coronal, and 3D-dimensional reconstructions were created and reviewed. These CT exams were performed using one or more of the following dose reduction techniques: Automated exposure control, adjustment of the mA and/or kV according to patient size, or use of iterative reconstruction technique. COMPARISON: Chest x-ray 12/11/2024. FINDINGS: Chest: Mediastinum:Cardiomegaly. LAD coronary artery disease. Trace anterior pericardial fluid. No suspicious mediastinal or hilar adenopathy. Aorta is not aneurysmal. No evidence of aortic dissection flap. Three-vessel arch. Pulmonary artery poorly evaluated due to the timing of bolus. Lungs:Hypoventilatory changes. No focal airspace opacity effusion or pneumothorax. Pleural lipoma identified left chest wall 2.2 x 1.6 cm in size on the coronal images. Abd: Noncontributory.[ Soft tissues/Bones: [] Multilevel ankylosing spondylitis involving the thoracic spine. Multilevel entered utilizing. CT/CT angio chest IMPRESSION: Negative for aortic dissection or aortic aneurysm. Cardiac megaly with LAD coronary artery disease. Hypoventilatory changes without acute airspace disease. Impression dictated by: Keanu Morris M.D. 12/11/2024 3:39 PM Dictation Location: [place] [address] Electronically authenticated by: [id number] Y Date: 12/11/2024 15:39
[2024-12-11 14:58] LABS: SARS-CoV-2 Ag NEGATIVE (NEGATIVE)
[2024-12-11 15:19] LABS: Lactate/Lactic Acid 3.2 mmol/L (0.4-2.0)
[2024-12-11] MEDS: AZITHROMYCIN 500 MG in 0.9 % SODIUM CHLORIDE 250 ML 250 MG IV (15:59)
[2024-12-11 18:28] LABS: Lactate/Lactic Acid 1.6 mmol/L (0.4-2.0)
[2024-12-11] MEDS: DOXYCYCLINE HYCLATE 100 MG in 0.9 % SODIUM CHLORIDE 100 ML IV (19:43)
[2024-12-11] MEDS: ASPIRIN 81 MG TAB.CHEW PO (19:43)
[2024-12-11] MEDS: 0.9 % SODIUM CHLORIDE 1,000 ML 70 ML IV (19:44)
[2024-12-11] MEDS: DEXAMETHASONE SOD PHOS 10 MG/ML VIAL IV (19:44)
[2024-12-11] MEDS: IPRATROPIUM/ALBUTEROL SULFATE 3 ML AMPUL.NEB IH (20:12)
[2024-12-11] MEDS: ENOXAPARIN SODIUM 60 MG/0.6 ML SYRINGE SUBQ (22:00)
[2024-12-11] MEDS: ATORVASTATIN CALCIUM 40 MG TABLET PO (22:00)
[2024-12-11] MEDS: CARVEDILOL 12.5 MG TABLET PO (22:00)
[2024-12-11] MEDS: INSULIN ASPART 300 UNIT/3 ML PEN SUBQ (22:01)
[2024-12-12] VITALS (21 sets, daily range): BP systolic 112–150; BP diastolic 64–78; PULSE 63–102; TEMP 35.8–36.8; O2SAT 86–99
[2024-12-12 06:12] LABS: Hematocrit 45.6 % (42.0-54.0); Hemoglobin 13.9 g/dL (14.0-18.0); Mean Corpuscular HGB Conc 30.5 g/dL (29.9-35.2); Mean Corpuscular Hemoglobin 26.9 pg (25.9-34.0); Mean Corpuscular Volume 88.4 fL (80.0-94.0); Platelet Count 250 10^3/uL (150-450); Red Blood Count 5.16 10^6/uL (4.70-6.10); White Blood Count 7.3 10^3/uL (4.0-11.0)
[2024-12-12 06:34] LABS: Alanine Aminotransferase 20 U/L (16-63); Albumin Globulin Ratio 0.7; Albumin Level 3.1 g/dL (3.4-5.0); Alkaline Phosphatase 148 U/L (46-116); Anion Gap 10.3; Aspartate Amino Transferase 13 U/L (15-37); Blood Urea Nitrogen 31.0 mg/dL (7.0-18.0); Calcium 9.0 mg/dL (8.5-10.1); Carbon Dioxide 32.6 mmol/L (21.0-32.0); Chloride 105 mmol/L (98-107); Estimated GFR (African America >60 (>=60 mL/min/1.73m^2); Estimated GFR (Non-African Ame >60 (>=60 mL/min/1.73m^2); Globulin 4.5 g/dL; Glucose 256 mg/dL (74-106); Potassium 4.9 mmol/L (3.5-5.1); Sodium 143 mmol/L (136-145); Total Protein 7.6 g/dL (6.4-8.2)
[2024-12-12] MEDS: INSULIN ASPART 300 UNIT/3 ML PEN SUBQ ×4 (08:17→21:25)
[2024-12-12] MEDS: ENOXAPARIN SODIUM 60 MG/0.6 ML SYRINGE SUBQ ×2 (08:19→20:25)
[2024-12-12] MEDS: CARVEDILOL 12.5 MG TABLET PO ×2 (08:19→20:25)
[2024-12-12] MEDS: ASPIRIN 81 MG TAB.CHEW PO (08:19)
[2024-12-12] MEDS: OXYCODONE HCL 5 MG TABLET PO ×2 (08:19→18:28)
[2024-12-12] MEDS: DEXAMETHASONE SOD PHOS 4 MG/ML VIAL INJ (08:19)
[2024-12-12] MEDS: DOXYCYCLINE HYCLATE 100 MG in 0.9 % SODIUM CHLORIDE 100 ML IV ×2 (08:22→20:24)
[2024-12-12] MEDS: IPRATROPIUM/ALBUTEROL SULFATE 3 ML AMPUL.NEB IH ×3 (08:33→20:34)
--- NOTE | 2024-12-12 09:13 | SWNOTE1 ---
SW and I stopped in pt's room to discuss potential d/c needs. Pt is from home and lives alone. He uses a walker. Pt voiced he does not have services like home health coming in currently. Does not use home oxygen. Pt voiced he was unhappy with his PCP. SW advised pt the only options for PCP's in the area are Dr. Breen and Corry Tomas [facility]END[facility] and SW could look into that for him. Pt was agreeable to this. Pt did not have further questions or concerns about d/c at this time. SW to follow as needed.
--- NOTE | 2024-12-12 09:17 | SWNOTE1 ---
Important Message from Medicare reviewed and discussed with patient. Pt. verbalized understanding and signed the form. Original given to patient and copy placed in patient?s chart.
--- NOTE | 2024-12-12 09:40 | CM.NOTE ---
Rounds made with Dr. Castillo. Mr. Garcia explains symptoms that brought him to hospital. Past medical history reviewed. No home oxygen or CpAP machine (will not use). Dr. Castillo reviewed plan of care. Mr. Garcia verbalizes understanding.
--- NOTE | 2024-12-12 10:52 | SWNOTE1 ---
ROLAND called Dr. Breen's office and reviewed mediacations with nurse. They are able to accept as new patient. ROLAND made appointment for 12/18/24 at 9:30 am. ROLAND placed this in dc paperwork and notified nurse and pt of time and date.
--- NOTE | 2024-12-12 12:15 | CA_ITS ---
Patient Name: TANIA SANTANA MR#: [id number] : 1965 Exam Date: 12/12/2024 Ordering Doctor: STUART COLÓN ECHOCARDIOGRAM REPORT PROCEDURE: CA ECHO W/ CON INDICATIONS: CAD COMPARISON: None. DESCRIPTION: COMPLETE ECHOCARDIOGRAM Real-time transthoracic echocardiography with 2D, M-mode, spectral and color flow Doppler performed. QUALITY: Lumason contrast was administered due to suboptimal imaging for left ventricular opacification to improve delineation of endocardial boarders. LEFT VENTRICLE: Mild dilatation. Borderline left ventricular hypertrophy. LV EF: Global left ventricular systolic function is normal. Visual estimation of left ventricular ejection fraction is 60-65%. Unable to assess regional wall motion abnormality despite Lumason used. DIASTOLIC: Unable to assess diastolic function. ATRIAL SEPTUM: Inadequately seen. LEFT ATRIUM: Mild dilatation. RIGHT ATRIUM: Moderate dilatation. RIGHT VENTRICLE: Moderate dilatation. Decreased right ventricular systolic function. TRICUSPID VALVE: Normal mobility and thickness. No stenosis with trivial regurgitation. Unable to assess right-sided pressures due to lack of measurable tricuspid regurgitation. MITRAL VALVE: Normal mobility and thickness. No evidence of mitral valve stenosis. Trivial mitral regurgitation. AORTIC VALVE: Grossly normal. Mildly calcified aortic valve. No evidence of aortic valve stenosis. No aortic regurgitation. AORTIC ROOT: Normal diameter and appearance. PULMONIC VALVE: Normal thickness and mobility. No stenosis. No regurgitation. PERICARDIUM: No evidence of pericardial effusion. IVC: Not well visualized. CONCLUSION: 1. Global left ventricular systolic function is normal; visually estimated ejection fraction is 60 to 65% 2. Borderline left ventricular hypertrophy 3. The right ventricle is moderately dilated with reduced systolic function 4. Biatrial dilatation 5. Valves are poorly seen; no obvious valvular abnormalities Adult Echocardiography Procedure Report Left Ventricle LVEDD (3.7 - 5.6 cm): 5.91 cm LVESD (2.2 - 4.0 cm): 4.20 cm LVIVS thickness (0.6 - 1.2 cm): 1.08 cm LVPW thickness (0.5 - 1.0 cm): 1.04 cm e': 0.09 m/s E - e': 7.19 Left Ventricular Ejection Fraction: 64.63 % Left Atrium LA Volume Index (2D A2C): 40.23 ml/m2 Left Atrium Systolic Dimension: 5.04 cm Mitral Valve MV E to A Ratio: 1.09 Mitral Valve A-Wave Peak Velocity: 0.59 m/s Mitral Valve E-Wave Peak Velocity: 0.65 m/s Right Ventricle RV Internal Diastolic Dimension: 5.47 cm Aorta AO Root Diam: 3.52 cm Aortic Valve Peak Velocity(Antegrade Flow): 1.56 m/s Peak Gradient(Antegrade Flow): 9.68 mm[Hg] Tricuspid Valve Peak Velocity (Regurgitant Flow): 1.47 m/s, 1.68 m/s Pulmonic Valve Peak Velocity: 0.97 m/s Peak Gradient: 4.12 mm[Hg], 3.43 mm[Hg] Right Atrium Right Atrium Systolic Pressure: 170.31 ml, 170.31 ml Dictated by: Fawad Reynaga M.D. on 12/12/2024 at 17:26 Approved by: Fawad Reynaga M.D. on 12/12/2024 at 17:30
--- NOTE | 2024-12-12 12:19 | PM.HP ---
HPI H&P: HPI History of Present Illness Chief complaint: Hypoxemia community acquired pneumonia Opioid HPI Opioid Management Most Recent Pain and Opioid Data: Last Pain Scale 0 Today, 11:02 Last Pain Intensity 7 01/06/24, 10:21 Last Pain Assessment 12/11/24, 18:20 Last MAR Pain Assessment Today, 08:19 Last ORT Total Score 0 12/11/24, 17:02 Last ORT Risk Category Low Risk 12/11/24, 17:02 PFSH PFS Medical History (Updated 12/12/24 @ 12:19 by Yoel Castillo MD) Morbid obesity ?E66.01 - Morbid (severe) obesity due to excess calories (ICD-10) Acute on chronic congestive heart failure ?I50.9 - Heart failure, unspecified (ICD-10) Acute combined systolic (congestive) and diastolic (congestive) heart failure ?I50.41 - Acute combined systolic (congestive) and diastolic (congestive) heart failure (ICD-10) Diabetes mellitus type 2 with complications ?E11.8 - Type 2 diabetes mellitus with unspecified complications (ICD-10) Anemia in chronic kidney disease ?N18.9 - Chronic kidney disease, unspecified (ICD-10) ?D63.1 - Anemia in chronic kidney disease (ICD-10) Chronic kidney disease, stage III (moderate) ?N18.30 - Chronic kidney disease, stage 3 unspecified (ICD-10) COPD (chronic obstructive pulmonary disease) ?J44.9 - Chronic obstructive pulmonary disease, unspecified (ICD-10) Moderate protein-calorie malnutrition ?E44.0 - Moderate protein-calorie malnutrition (ICD-10) Hypertension ?I10 - Essential (primary) hypertension (ICD-10) Pulmonary edema ?J81.1 - Chronic pulmonary edema (ICD-10) Anasarca ?R60.1 - Generalized edema (ICD-10) Abnormal colonoscopy ?R93.3 - Abnormal findings on diagnostic imaging of other parts of digestive tract (ICD-10) Surgical History History of appendectomy ?Z90.49 - Acquired absence of other specified parts of digestive tract (ICD-10) Family History (Updated 12/11/24 @ 17:00 by Payton Pitts) Father Diabetes Mother CHF (congestive heart failure) Other Family history of CHF (congestive heart failure) Family history of diabetes mellitus Family history of hypertension Social History (Updated 12/11/24 @ 17:01 by Payton Pitts) Within the past year, how often did you have a drink containing alcohol: never Within the past year, how often did you have six or more drinks on one occasion: never Score interpretation: A score less than 4 is consistent with normal alcohol consumption. Smoking status: Never smoker Second hand tobacco smoke exposure: No Non-prescribed substance use: denies use Previous occupational history: retired Highest level of school completed/degree received: high school graduate Are you now , , , , never or living with a partner: never In a typical week, how many times do you talk on the telephone with family, friends, or neighbors: 3 or more times per week How often do you get together with friends or relatives: 3 or more times per week How often do you attend alevism or mormon services: never Do you belong to any clubs or organizations such as alevism groups unions, [employer] or athletic groups, or school groups: no Total score: 1 Score interpretation: A score of less than or equal to 1 indicates the most socially isolated. Little interest or pleasure in doing things: not at all Feeling down, depressed, or hopeless: not at all Feel stressed/tense/nervous/anxious/difficulty sleeping: not at all Due to disability, difficulty making decisions: No Do you think of yourself as: straight/heterosexual Gender Identity: male Meds Home Medications and Allergies Home Medications ?Medication ?Instructions ?Recorded ?Confirmed ?Type metformin 1,000 mg tablet 1,000 mg PO BID 12/16/23 12/11/24 History albuterol sulfate 90 mcg/actuation 2 inh inhalation Q4H PRN shortness 12/18/23 12/11/24 Rx aerosol inhaler of breath or wheezing #6.7 grams aspirin 81 mg chewable tablet 81 mg PO QD #30 tabs 01/09/24 12/11/24 Rx atorvastatin 40 mg tablet 40 mg PO QHS #60 tabs 01/09/24 12/11/24 Rx carvedilol 12.5 mg tablet 12.5 mg PO BID #60 tabs 01/09/24 12/11/24 Rx losartan 50 mg tablet 50 mg PO Q24H #30 tabs 08/12/24 07/15/25 Rx spironolactone 25 mg tablet 25 mg PO QD #30 tabs 01/09/24 12/11/24 Rx cetirizine 10 mg tablet 10 mg PO QAM 12/11/24 12/11/24 History furosemide 40 mg tablet 40 mg PO DAILY 12/11/24 12/11/24 History magnesium oxide 400 mg (241.3 mg 250 mg PO DAILY 12/11/24 12/11/24 History magnesium) tablet Allergies Allergy/AdvReac Type Severity Reaction Status Date / Time topiramate (From Topamax) AdvReac Intermediate Altered Verified 12/16/23 07:22 Sense of Taste Exam Constitutional Vital Signs, click to edit/add: Last Vital Signs Temp 96.5 F L 12/12/24 11:40 Pulse 66 12/12/24 12:00 Resp 20 12/12/24 09:12 BP 127/73 12/12/24 11:40 Pulse Ox 94 L 12/12/24 11:40 O2 Del Method Nasal Cannula 12/12/24 09:12 O2 Flow Rate 3 12/12/24 09:12 Results Labs Labs: Short CBC 12/11/24 12/12/24 Range/Units 14:00 05:35 WBC 11.2 H 7.3 (4.0-11.0) 10^3/uL Hgb 13.6 L 13.9 L (14.0-18.0) g/dL Hct 43.4 45.6 (42.0-54.0) % Plt Count 248 250 (150-450) 10^3/uL BMP 12/11/24 12/12/24 14:00 05:35 Sodium 142 143 Potassium 3.9 4.9 Chloride 103 105 Carbon Dioxide 31.8 32.6 H BUN 35.0 H 31.0 H Creatinine 1.46 H 1.10 Glucose 263 H 256 H Calcium 9.0 9.0 Liver Function 12/12/24 Range/Units 05:35 Total Bilirubin 0.5 (0.2-1.0) mg/dL AST 13 L (15-37) U/L ALT 20 (16-63) U/L Alkaline Phosphatase 148 H (46-116) U/L Albumin 3.1 L (3.4-5.0) g/dL Assessment and Plan Assessment and Plan (1) Hypoxemia: (2) Cardiomyopathy: (3) RAMON (acute kidney injury): (4) Sleep apnea: (5) Obesity: (6) Diabetes: Plan Shortness of breath, hypoxemia, bronchospasm, I suspect multifactorial secondary to the following Sleep apnea. Patient is not compliant. Patient stated that he would never wear CPAP Suspect pulmonary hypertension. Probable upper respiratory infection manifested by cough, productive to yellowish sputum, wheezing. Diastolic dysfunction. No clinical evidence to suggest acute decompensation of heart failure or fluid overload. Acute kidney failure. Resolved with IV fluid infusion. Less likely caused by fluid overload. Morbid obesity. BMI is 17. Patient weighs about 400 pounds Suspect restrictive lung disease secondary to significant obesity. CT scan does not show any pulm embolism or infiltration Hypertension Patient had improved significantly overnight. RAMON had resolved. Diuretics and ARB are on hold Echocardiogram is pending Encouraging to uses CPAP machine at home. Patient swears that he will never wear it. Diet, exercise and lifestyle modification DVT prophylaxis
[2024-12-12] MEDS: FUROSEMIDE 20 MG TABLET PO (13:21)
[2024-12-12] MEDS: DEXAMETHASONE SOD PHOS 4 MG/ML VIAL IV (20:25)
[2024-12-12] MEDS: ATORVASTATIN CALCIUM 40 MG TABLET PO (21:25)
[2024-12-13] VITALS (21 sets, daily range): BP systolic 122–150; BP diastolic 64–82; PULSE 58–86; TEMP 36.5–36.6; O2SAT 92–95
[2024-12-13] MEDS: FUROSEMIDE 20 MG TABLET PO (08:30)
[2024-12-13] MEDS: ASPIRIN 81 MG TAB.CHEW PO (08:30)
[2024-12-13] MEDS: DEXAMETHASONE SOD PHOS 4 MG/ML VIAL IV ×2 (08:30→21:18)
[2024-12-13] MEDS: ENOXAPARIN SODIUM 60 MG/0.6 ML SYRINGE SUBQ ×2 (08:30→21:18)
[2024-12-13] MEDS: INSULIN ASPART 300 UNIT/3 ML PEN SUBQ ×4 (08:30→21:27)
[2024-12-13] MEDS: CARVEDILOL 12.5 MG TABLET PO ×2 (08:30→21:18)
[2024-12-13] MEDS: DOXYCYCLINE HYCLATE 100 MG in 0.9 % SODIUM CHLORIDE 100 ML IV ×2 (08:31→21:20)
[2024-12-13] MEDS: IPRATROPIUM/ALBUTEROL SULFATE 3 ML AMPUL.NEB IH ×3 (08:52→21:18)
--- NOTE | 2024-12-13 10:10 | CM.NOTE ---
Rounds made with Dr. Castillo, pt continues to require oxygen at this time. Pt does not wear home oxygen. No discharge today.
[2024-12-13] MEDS: OXYCODONE HCL 5 MG TABLET PO (11:44)
--- NOTE | 2024-12-13 12:11 | PM.PN ---
Progress Note: Subjective Subjective Interval history: Patient is feeling much better. Less cough and congestion. Less shortness of breath. Exam Narrative Exam Narrative: Morbidly obese. Significant central obesity. No distress. Chest is clear in the upper section, crackles and wheezing in the upper lower EXTR section lower extremities trace pitting edema. Abdomen is distended. Increased abdominal girth therefore his abdominal exam is inconclusive. Heart is regular Constitutional Vital Signs, click to edit/add: Last Vital Signs Temp 97.8 F 12/13/24 11:39 Pulse 65 12/13/24 11:39 Resp 18 12/13/24 11:39 BP 130/76 12/13/24 11:39 Pulse Ox 94 L 12/13/24 11:39 O2 Del Method Nasal Cannula 12/13/24 11:39 O2 Flow Rate 2 12/13/24 11:39 Progress Note: A&P Assessment and Plan (1) Hypoxemia: (2) Cardiomyopathy: (3) RAMON (acute kidney injury): (4) Sleep apnea: (5) Obesity: (6) Diabetes: Plan Shortness of breath, hypoxemia, bronchospasm, I suspect multifactorial secondary to the following: Sleep apnea. Patient is not compliant. Patient stated that he would never wear CPAP Suspect pulmonary hypertension. Previous echo showed moderate degree of pulmonary hypertension. Probable upper respiratory infection manifested by cough, productive to yellowish sputum, wheezing. Patient is on doxycycline. Acute/subacute systolic and diastolic dysfunction. Previous echo showed ejection fraction at 40%. No clinical evidence to suggest acute decompensation of heart failure or fluid overload. Suspect restrictive lung disease secondary to significant obesity. Suspected degree of COPD and COPD exacerbation. Not confirmed. CAT scan does not show any acute intrathoracic abnormalities Influenza A and B are negative. SARS negative Continue current treatment plan Albuterol Atrovent Antibiotic Gentle diuresis to keep him in euvolemic state Home O2 eval prior to discharge Encourage patient to use his CPAP machine but adamantly refusing. Blood pressure control GDMT treatment. Patient is on beta-bishop and ARB. He is also on MRA. Consider switching ARB to ARNI. Consider the addition of SGLT1 for diabetes and heart failure management Acute kidney failure. Resolved with IV fluid infusion. Less likely caused by fluid overload. Rule diuretics, keep him in a euvolemic state. Diabetes, A1c 6.9 Metformin is on hold due to CTA. Resume metformin tomorrow. Continue Accu-Chek. Consider the addition of SGLT 1 for diabetes and heart failure management Morbid obesity. BMI is 17. Patient weighs about 400 pounds Counseling and education about diet, exercise and lifestyle modification Dietitian consultation for added. Chronic medical conditions not listed above, incidental findings seen on labs and imaging. These would need to be addressed. Could be addressed when time and condition are appropriate. Could be addressed in the outpatient setting by PCP collaboration with other needed outpatient providers.
--- NOTE | 2024-12-13 12:11 | CM.NOTE ---
Called [facility] Cardiology to notify pt is inpatient for echo read.
[2024-12-13] MEDS: SPIRONOLACTONE 25 MG TABLET PO (12:47)
[2024-12-13] MEDS: BUMETANIDE 1 MG/4 ML VIAL IVP (12:47)
[2024-12-13] MEDS: LOSARTAN POTASSIUM 25 MG TABLET PO (12:47)
--- NOTE | 2024-12-13 14:08 | CM.NOTE ---
Case Management discussed with patient sleep apnea, pt at this time states he has had sleep study years ago. Pt states he is unable to tolerate the mask for home BIPAP so refused to continue with treatment. Talked with pt regarding nasal pillow, pt continues to refuse looking into another sleep study. Pt at this time is focused on knee pain and unable to get narcotics for pain. Case Management discussed pain management and pt has already attempted without success. Pt states he is overweight and unable to have knee replacement. Discussed with pt retirement effects of untreated sleep apnea, HTN, irregular heart rhythms, Diabetes & depression. Pt verbalizes understanding of retirement effects and at this time is not interested in f/u information.
[2024-12-13] MEDS: ATORVASTATIN CALCIUM 40 MG TABLET PO (21:18)
[2024-12-14] VITALS (10 sets, daily range): BP systolic 125–148; BP diastolic 68–71; PULSE 61–75; TEMP 36.4–36.6; O2SAT 91–94
[2024-12-14] MEDS: OXYCODONE HCL 5 MG TABLET PO (06:06)
[2024-12-14] MEDS: INSULIN ASPART 300 UNIT/3 ML PEN SUBQ ×2 (08:15→11:42)
[2024-12-14] MEDS: DOXYCYCLINE HYCLATE 100 MG in 0.9 % SODIUM CHLORIDE 100 ML IV (08:16)
[2024-12-14] MEDS: FUROSEMIDE 40 MG TABLET PO (08:16)
[2024-12-14] MEDS: DEXAMETHASONE SOD PHOS 4 MG/ML VIAL IV (08:16)
[2024-12-14] MEDS: LOSARTAN POTASSIUM 25 MG TABLET PO (08:16)
[2024-12-14] MEDS: SPIRONOLACTONE 25 MG TABLET PO (08:16)
[2024-12-14] MEDS: ENOXAPARIN SODIUM 60 MG/0.6 ML SYRINGE SUBQ (08:16)
[2024-12-14] MEDS: CARVEDILOL 12.5 MG TABLET PO (08:16)
[2024-12-14] MEDS: ASPIRIN 81 MG TAB.CHEW PO (08:16)
--- NOTE | 2024-12-14 09:20 | CM.NOTE ---
Rounds made with Dr. Castillo, pt will have walk test prior to discharge. Pt then will discharge to home self care.
[2024-12-14] MEDS: IPRATROPIUM/ALBUTEROL SULFATE 3 ML AMPUL.NEB IH (09:51)
--- NOTE | 2024-12-14 10:14 | P.DS_ITS ---
DS: Providers Provider Date of admission: 12/11/24 16:42 Primary care physician: MERRITT THACKER DS: Diagnosis Discharge Diagnosis (1) Hypoxemia: (2) Cardiomyopathy: (3) RAMON (acute kidney injury): (4) Sleep apnea: (5) Obesity: (6) Diabetes: Plan As listed above and others that are not listed DS: Summary Hospital Course Hospital Course: Mr. Garcia is a 59-year-old gentleman who came in with shortness of breath and was found to have the following: Acute hypoxic respiratory failure, bronchospasm, I suspect multifactorial secondary to the following: Sleep apnea. Patient is not compliant. Patient stated that he would never wear CPAP. Counseling and education were provided for patient to wear is CPAP but he will not Suspect pulmonary hypertension. Previous echo showed moderate degree of pulmonary hypertension. Upper respiratory infection manifested by cough, productive to yellowish sputum, wheezing. Patient is on doxycycline. Influenza and COVID are negative. Could be other undetected viruses such as RSV, human [place] pneumo virus, parainfluenza and others Acute/subacute systolic and diastolic dysfunction. Previous echo showed ejection fraction at 40%. Repeat echo showed improvement of his kidney function. Mild clinical evidence to suggest acute decompensation of heart failure and fluid overload. Suspect restrictive lung disease secondary to significant obesity. Suspected degree of COPD and COPD exacerbation. Not confirmed. Patient may need to have PFTs in the outpatient setting to be arranged by PCP and/or referral to see pulmonology CAT scan does not show any acute intrathoracic abnormalities Influenza A and B are negative. SARS negative Continue current treatment plan Albuterol Atrovent Antibiotic Gentle diuresis to keep him in euvolemic state Home O2 eval prior to discharge Encourage patient to use his CPAP machine but adamantly refusing. Blood pressure control GDMT treatment. Patient is on beta-bishop and ARB. He is also on MRA. Consider switching ARB to ARNI to be done in the outpatient setting by PCP and/ or store coordinator. Consider the addition of SGLT1 for diabetes and heart failure management Acute kidney failure. Resolved with IV fluid infusion. Less likely caused by fluid overload. Recommendation to adjust diuretics in the outpatient setting to keep him in euvolemic state Diabetes, A1c 6.9 Metformin is on hold due to CTA. Resume metformin tomorrow. Continue Accu-Chek. Consider the addition of SGLT 1 for diabetes and heart failure management Morbid obesity. BMI is 17. Patient weighs about 400 pounds Counseling and education about diet, exercise and lifestyle modification Dietitian consultation for added. Chronic medical conditions not listed above, incidental findings seen on labs and imaging. These would need to be addressed. Could be addressed when time and condition are appropriate. Could be addressed in the outpatient setting by PCP collaboration with other needed outpatient providers. Patient has multiple complex medical issues as listed above and others that are not listed. All appear to be stable. I do not have any clear or strong clinical justification to extend inpatient hospitalization. Patient however will require close and frequent monitoring as well as additional work-up, investigation and therapeutic intervention that could take place from this point on post discharge. That is to prevent relapse, decompensation, rehospitalization and other medical implications. I instructed patient to ask her primary care doctor to obtain [facility] record entirely to address abnormalities seen on labs and imaging that I have and have not addressed during this hospitalization, follow-up on pending blood work, imaging and pathology is if available and to follow-up on needed medical care in the outpatient setting. Time Spent with Patient Time attestation: Total time spent providing and/or coordinating discharge services: Time spent: greater than 30 minutes Exam Narrative Exam Narrative: Morbidly obese. Significant central obesity. No distress. Chest is clear in the upper section, crackles and wheezing in the upper lower EXTR section lower extremities trace pitting edema. Abdomen is distended. Increased abdominal girth therefore his abdominal exam is inconclusive. Heart is regular Constitutional Vital Signs, click to edit/add: Last Vital Signs Temp 97.8 F 12/14/24 07:48 Pulse 68 12/14/24 10:00 Resp 63 H 12/14/24 09:52 BP 148/68 H 12/14/24 07:48 Pulse Ox 93 L 12/14/24 09:52 O2 Del Method Room Air 12/14/24 09:52 O2 Flow Rate 1.5 12/14/24 07:48 DS: Data Data Completed and Pending Labs on day of discharge: Labs from last 24 hours 12/14/24 12/13/24 12/13/24 08:03 21:27 16:27 POC Glucose 295 H 253 H 267 H 12/13/24 11:26 POC Glucose 233 H Preliminary micro results at discharge 12/11/24 14:52 Blood Culture Result 2 - Preliminary Blood NO GROWTH AT 36-48 HOURS. FINAL TO FOLLOW. 12/11/24 14:50 Blood Culture Result 1 - Preliminary Blood NO GROWTH AT 36-48 HOURS. FINAL TO FOLLOW. Discharge Plan Discharge Disposition: Home, Self-Care Condition: Fair Health Concerns: I may not have addressed or treated all of your medical illnesses or the abnormal blood work or imaging studies during this hospitalization. Please ask your primary care provider to obtain [facility] records entirely to follow up on all of the abnormal physical, laboratory, and imaging findings that I have not addressed. Please return back to the emergency room or seek medical attention if your symptoms worsen or return. Discharging you from [facility] does not mean that your medical care ends here and now. You may still need additional monitoring, work up, investigation, and treatment plan to be handled from this point on by out patient providers including your primary care provider and specialists. For any medication question, please contact your retail pharmacist or your primary care provider. Thank you. Discharge Medications: New doxycycline monohydrate 100 mg tablet 100 mg PO BID 5 Days Qty: 10 0RF prednisone 10 mg tablet 10 mg PO .as directed Qty: 15 0RF Rx Instructions: Take 1 tablet twice a day for 5 days then 1 tablet daily for 5 days Jardiance 10 mg tablet 10 mg PO DAILY Qty: 30 2RF Continued losartan 50 mg Tablet 50 mg PO Q24H Qty: 30 11RF atorvastatin 40 mg Tablet 40 mg PO QHS Qty: 60 11RF carvedilol 12.5 mg Tablet 12.5 mg PO BID Qty: 60 11RF spironolactone 25 mg Tablet 25 mg PO QD Qty: 30 11RF aspirin 81 mg Tablet,Chewable 81 mg PO QD Qty: 30 11RF metformin 1,000 mg tablet 1,000 mg PO BID albuterol sulfate 90 mcg/actuation HFA aerosol inhaler 2 inh inhalation Q4H PRN (Reason: shortness of breath or wheezing) Qty: 6.7 0RF cetirizine 10 mg tablet 10 mg PO QAM furosemide 40 mg tablet 40 mg PO DAILY magnesium oxide 400 mg (241.3 mg magnesium) Tablet 250 mg PO DAILY Print Language: Romansh Forms: Portal Instructions Follow Up Appointments: New patient appointment with Dr. Breen scheduled for 12/18/24 @ 9:30 am. Please arrive 15 minutes early to complete paperwork. Please bring ID and insurance card. [address] [facility] [place], [place] [phone]
--- NOTE | 2024-12-14 11:16 | CM.NOTE ---
Walk test completed, no need for home oxygen at discharge. No discharge needs identified.
--- NOTE | 2024-12-17 14:16 | CM.DCFOLLOWU ---
12/17- 1st attempt. No answer
--- NOTE | 2024-12-19 14:32 | CM.DCFOLLOWU ---
Person spoke with:patient How are you feeling?well How is your pain?none Did you understand your discharge instructions?yes Do you have any questions about your discharge instructions?no Were you given any prescriptions at discharge?yes Were you able to get your prescriptions filled?only able to get 2 due to lopez, calling pharmacy to see if there is alternative for the other Do you understand how to take your medications as ordered?yes Do you have any questions about your follow up appointment and do you plan to keep your follow up appointment?no questions, will follow up Is there anything else that you would like to discuss?no Questions/Comments/Concerns/Other:none
--- NOTE | 2024-12-19 14:45 | CM.DCFOLLOWU ---
Pt was unable to strip picker Jardiance rx due to cost. Called [facility] pharmacy to see if there was a less expensive alternative. Pharmacist stated that pt has not met his copay and there would be no other alternative.
== END 2024-12-14 13:43 | disposition home or self-care (01) | DRG 189 ==
LOC: ER 16:21 → MS 16:48
PROVIDERS: Admitting Provider Internal Medicine; Emergency Provider Emergency Medicine; PCP Internal Medicine; Visit Provider Internal Medicine
DX: J96.01 Acute respiratory failure with hypoxia (principal); I50.43 Acute on chronic combined systolic (congestive) and diastolic (congestive) heart failure; I43 Cardiomyopathy in diseases classified elsewhere; N17.9 Acute kidney failure, unspecified; Z68.45 Body mass index [BMI] 70 or greater, adult; J44.1 Chronic obstructive pulmonary disease with (acute) exacerbation; E66.01 Morbid (severe) obesity due to excess calories; Z91.199 Patient's noncompliance with other medical treatment and regimen due to unspecified reason; I10 Essential (primary) hypertension; E11.9 Type 2 diabetes mellitus without complications; I11.0 Hypertensive heart disease with heart failure; I27.20 Pulmonary hypertension, unspecified; Z79.84 Long term (current) use of oral hypoglycemic drugs; Z79.899 Other long term (current) drug therapy; Z90.49 Acquired absence of other specified parts of digestive tract; J06.9 Acute upper respiratory infection, unspecified; J98.4 Other disorders of lung
CPT/HCPCS: 36415; 71045; 71275; 80048; 80053; 82948; 83036; 83605; 83880; 84484; 85025; 85027; 87040; 87804; 87811; 93005; 94640; 94761; 96365; 96367; 99285; C8929; J0456; J0696; J1100; J1650; Q9950; Q9967

== ENCOUNTER 2024-12-31 13:01 | Inpatient (IN) | payer MEDICARE, SELFPAY ==
[2024-12-31] VITALS (34 sets, daily range): BP systolic 112–145; BP diastolic 59–84; PULSE 77–97; TEMP 36.6–37.3; O2SAT 78–98; BMI 67.8; BMI 70.7
--- OUTSIDE RECORDS SUMMARY | 2024-12-31 13:09 | XMS_ITS | Encounter Summary ---
Author Organization [employer] Address [facility] [id number] [address] [place] [address] Care Team Providers Care Pulmonologist/Intensivist Name Role Phone Sandip Woo DO Primary Care Provider [phone] Encounter Details Date Type Department Care Team (Late Contact Info) Description 06/07/2024 Orders Only [facility] Internal Medicine - Family Medicine [address] [place] [id number] Sandip Woo DO [address] [place] [address] Chronic combined systolic and diastolic CHF (congestive heart failure) ([facility]) Social History Tobacco Use Types Packs/Day Years Used Date Smoking Tobacco: Never Smokeless Tobacco: Never Alcohol Use Standard Drinks/Week Comments Yes 2 (1 standard drink = 0.6 oz pur e alcohol) rare PHQ-2 Answer Date Recorded Total Score 0 06/05/2024 Childcare Answer Date Recorded Childcare Unknown 04/11/2020 Employment Answer Date Recorded Employment Unknown 04/11/2020 Hunger Screening Answer Date Recorded Within the past 12 months we worried whether our food would run out before we got money to buy more. Never True 06/05/2024 Within the past 12 months th e food we bought just didn't last and we didn't have money to get more. Never True 06/05/2024 Purpose - Life Answer Date Recorded Purpose and direction in life Unknown Sex and Gender Information Value Date Recorded Sex Assigned at Not on file Legal Sex Male 11:32 AM EDT Gender Identity Not on file Sexual Orientation Not on file documented as of this encounter Plan of Treatment Upcoming Encounters Date Type Department Care Team (Late st Contact Info) Description 01/03/2025 1:00 PM EDT Office Visit [facility] - Family Medicine [address] [place] [address] Sandip Woo DO [address] [place] [address] documented as of this encounter Visit Diagnoses Diagnosis Chronic combined systolic and diastolic CHF (congestive heart failure) ([facility]-HCC) documented in this encounter Additional Health Concerns Assessment Noted Time PHQ-9 Depression Total Score: 0 06/05/19 25 12:55 PM EST documented as of this encounter Care Teams Pulmonologist/Intensivist Relationship Specialty Start Date End Date Sandip Woo DO [address] [place] [address] PCP - General Internal Medicine 01/12/23 documented as of this encounter
--- OUTSIDE RECORDS SUMMARY | 2024-12-31 13:09 | XMS_ITS | Clinical Summary ---
Author Organization [facility] Address [address] [facility] [place] [address] Care Team Providers Care Civil Engineering Specialist Name Role Phone Sandip Woo MD Primary Care Provider [phone] Allergies Active Allergy Reactions Criticality Noted Date Comments Topiramate 03/28/2023 Medications amLODIPine (Norvasc) 5 MG tablet Active atorvastatin (Lipitor) 80 MG tablet Take 1 tablet every day by oral route at bedtime. Active ferrous sulfate 325 (65 Fe) MG tablet Take 1 tablet by mouth in the morning. Active diclofenac (Voltaren) 75 MG EC tablet Take 75 mg by mouth in the morning and 75 mg before bedtime. 03/21/2023 Active warfarin (Coumadin) 5 MG tablet Take 1 tablet by mouth in the morning. Active metFORMIN (Glucophage) 1000 MG tablet Take 1,000 mg by mouth in the morning and 1,000 mg before bedtime. Active losartan (Cozaar) 50 MG tablet Take 50 mg by mouth in the morning. 03/10/2023 Active triamterene-hyd rochlorothiazid e (Maxzide-25) 37.5-25 MG tablet Active tiZANidine (Zanaflex) 4 MG tablet Active SITagliptin (Januvia) 100 MG tablet Take 100 mg by mouth in the morning. 03/10/2023 Active pregabalin (Lyrica) 300 MG capsule Take 1 capsule twice a day by oral route. Active potassium chloride (Klor-Con) 20 MEQ packet Take 1 packet every day by oral route. Active Phentermine-Top iramate (Qsymia) 3.75-23 MG capsule sustained-relea se 24 hr Take 1 capsule every day by oral route. Active pantoprazole (ProtoNix) 40 MG EC tablet Take 1 tablet twice a day by oral route. Active metoprolol succinate XL (Toprol-XL) 25 MG 24 hr tablet Take 25 mg by mouth in the morning and 25 mg in the evening. Active furosemide (Lasix) 20 MG tablet Active gabapentin (Neurontin) 300 MG capsule Take 300 mg by mouth in the morning and 300 mg in the evening and 300 mg before bedtime. 04/27/2022 Active Family History Medical History Relation Name Comments Diabetes Father Hypertension Father Heart disease Mother Hypertension Mother Relation Name Status Comments Father Mother Social History Tobacco Use Types Packs/Day Years Used Date Smoking Tobacco: Never Smokeless Tobacco: Never Tobacco Cessation:Counseling Given: Not Answered Alcohol Use Standard Drinks/Week Comments Yes 0 (1 standard drink = 0.6 oz pur e alcohol) Sex and Gender Information Value Date Recorded Sex Assigned at Not on file Legal Sex Male 7:03 PM EDT Gender Identity Not on file Sexual Orientation Not on file Last Filed Vital Signs Vital Sign Reading Time Taken Comments Blood Pressure 132/76 09/15/2017 12:00 PM EDT Pulse - - Temperature - - Respiratory Rate - - Oxygen Saturation - - Inhaled Oxygen Concentration - - Weight 171 kg (377 lb) 09/15/2017 12:00 PM EDT Height 167.6 cm (5' 6 ) 09/15/2017 12:00 PM EDT Body Mass Index 60.85 09/15/2017 12:00 PM EDT Plan of Treatment Not on file Insurance [employer] Care Teams Civil Engineering Specialist Relationship Specialty Start Date End Date Sandip Woo MD PCP - General Internal Medicine 03/28/23
--- OUTSIDE RECORDS SUMMARY | 2024-12-31 13:09 | XMS_ITS | Encounter Summary ---
Author Organization [employer] Address [facility] [id number] [address] [place] [address] Care Team Providers Care Standards Analyst Name Role Phone Sandip Woo DO Primary Care Provider Reason for Visit * Reason Comments Med Refill Encounter Details Date Type Department Care Team (Late st Contact Info) Description 10/06/2023 Refill [facility] - Family Medicine [address] [place] [phone] Sandip Woo DO [address] [place] [address] Encounter for immunization Social History Tobacco Use Types Packs/Day Years Used Date Smoking Tobacco: Never Smokeless Tobacco: Never Alcohol Use Standard Drinks/Week Comments Yes 2 (1 standard drink = 0.6 oz pur e alcohol) PHQ-2 Answer Date Recorded Total Score 0 09/07/2023 Childcare Answer Date Recorded Childcare Unknown 04/11/2020 Employment Answer Date Recorded Employment Unknown 04/11/2020 Hunger Screening Answer Date Recorded Within the past 12 months we worried whether our food would run out before we got money to buy more. Never True 09/07/2023 Within the past 12 months th e food we bought just didn't last and we didn't have money to get more. Never True 09/07/2023 Purpose - Life Answer Date Recorded Purpose and direction in life Unknown Sex and Gender Information Value Date Recorded Sex Assigned at Not on file Legal Sex Male 11:32 AM EDT Gender Identity Not on file Sexual Orientation Not on file documented as of this encounter Miscellaneous Notes * Telephone Encounter - Sandip Woo DO - 10/06/2023 1:12 PM EDT This is discontinued due to starting [employer] documented in this encounter Plan of Treatment Upcoming Encounters Date Type Department Care Team (Late st Contact Info) Description 01/03/2025 1:00 PM EDT Office Visit [facility] - Family Medicine [address] [place] [address] Sandip Woo DO [address] [place] [address] documented as of this encounter Visit Diagnoses Diagnosis Encounter for immunization documented in this encounter Additional Health Concerns Assessment Noted Time PHQ-9 Depression Total Score: 0 09/07/19 24 1:09 PM EDT documented as of this encounter Care Teams Standards Analyst Relationship Specialty Start Date End Date Sandip Woo DO [address] [place] [address] PCP - General Internal Medicine 01/12/23 documented as of this encounter
--- OUTSIDE RECORDS SUMMARY | 2024-12-31 13:09 | XMS_ITS | Encounter Summary ---
Author Organization [employer] Address [facility] [id number] [address] [place] [address] Care Team Providers Care Community Liaison Name Role Phone Sandip Woo DO Primary Care Provider [phone] Encounter Details Date Type Department Care Team (Late st Contact Info) Description 09/23/2023 Orders Only [facility] - Family Medicine [address] [place] [phone] Sandip Woo DO [address] [place] [address] Type 2 diabetes mellitus without complication, without long-term current use of insulin ([facility]) (Primary Dx) Social History Tobacco Use Types Packs/Day Years [...] Internal Medicine - Family Medicine [address] [place] [address] Sandip Woo DO [address] [place] [address] documented as of this encounter Visit Diagnoses Diagnosis Type 2 diabetes mellitus without complication, without long-term current use of insulin ([facility])- Primary documented in this encounter Additional Health Concerns Assessment Noted Time PHQ-9 Depression Total Score: 0 09/07/19 24 1:09 PM EDT documented as of this encounter Care Teams Community Liaison Relationship Specialty Start Date End Date Sandip Woo DO [address] [place] [address] PCP - General Internal Medicine 01/12/23 documented as of this encounter
--- OUTSIDE RECORDS SUMMARY | 2024-12-31 13:09 | XMS_ITS | Encounter Summary ---
Author Organization [facility] [employer] [facility] Address [facility] [id number] [address] [place] [address] Care Team Providers Care Lead Sales Consultant Name Role Phone Sandip Woo DO Primary Care Provider [phone] Encounter Details Date Type Department Care Team (Late Contact Info) Description 10/18/2023 Orders Only [facility] Internal Medicine - Family Medicine [address] [place] [phone] Sandip Woo DO [address] [place] [address] Social History Tobacco Use Types Packs/Day Years [...] Encounters Date Type Department Care Team (Late Contact Info) Description 01/03/2025 1:00 PM EDT Office Visit [facility] - [facility] [address] [place] [address] Sandip Woo DO [address] [place] [address] documented as of this encounter Visit Diagnoses Not on filedocumented in this encounter Additional Health Concerns Assessment Noted Time PHQ-9 Depression Total Score: 0 09/07/19 24 1:09 PM EDT documented as of this encounter Care Teams Lead Sales Consultant Relationship Specialty Start Date End Date Sandip Woo DO [address] [place] [address] PCP - General Internal Medicine 01/12/23 documented as of this encounter
--- OUTSIDE RECORDS SUMMARY | 2024-12-31 13:09 | XMS_ITS | Encounter Summary ---
Author Organization [employer] Address [id number] [address] [place] [address] Care Team Providers Care Counter Help Name Role Phone Sandip Woo DO Primary Care Provider [phone] Reason for Visit * Reason Comments Med Refill Encounter Details Date Type Department Care Team (Late st Contact Info) Description 10/18/2023 Refill [facility] - Family Medicine [address] [place] [phone] Sandip Woo DO [address] [place] [address] Encounter for immunization Social History Tobacco Use [...] Telephone Encounter - Sandip Woo DO - 10/18/2023 3:48 PM EDT No longer taking this medication documented in this encounter Plan of Treatment Upcoming Encounters Date Type Department Care Team (Late st Contact Info) Description 01/03/2025 1:00 PM EDT Office Visit [facility] - [facility] [address] [place] [address] Sandip Woo DO [address] [place] [address] documented as of this encounter Visit Diagnoses Diagnosis Encounter for immunization documented in this encounter Additional Health Concerns Assessment Noted Time PHQ-9 Depression Total Score: 0 09/07/19 24 1:09 PM EDT documented as of this encounter Care Teams Counter Help Relationship Specialty Start Date End Date Sandip Woo DO [address] [place] [address] PCP - General Internal Medicine 01/12/23 documented as of this encounter
--- OUTSIDE RECORDS SUMMARY | 2024-12-31 13:09 | XMS_ITS | Encounter Summary ---
Author Organization [employer] Sys tem Address [facility] [id number] [address] [place] [address] Care Team Providers Care Personal Lines Insurance Advisor Name Role Phone Sandip Woo DO Primary Care Provider [phone] Encounter Details Date Type Department Care Team (Late st Contact Info) Description 06/06/2024 Telephone [facility] - Family Medicine [address] [place] [address] Brandi Hurley CMA Social History Tobacco Use Types Packs/Day Years [...] encounter Miscellaneous Notes * Telephone Encounter - Brandi Hurley CMA - 06/06/2024 9:20 AM EST ----- Message from Dr. Sandip Woo DO sent at 06/05/2024 7:40 PM EST ----- Reviewed. His A1c level is improved at 6.6% The kidney and liver testing look good too. No changes at this time. * Telephone Encounter - Brandi Hurley CMA - 06/06/2024 9:20 AM EST Left a message for the patient to call us back * Telephone Encounter - Nitza Oneal CMA - 06/06/2024 9:20 AM EST Pt called and states one of his medications is 200 dollars.for his sugar. He can not afford this. He thinks this might be the Farxiga Could you send in some thing else? Pharmacy is listed and correct * Telephone Encounter - Sandip Woo DO - 06/06/2024 9:20 AM EST Message noted. There is no alternative. However, he may qualify for patient assistance * Telephone Encounter - Nitza Oneal CMA - 06/06/2024 9:20 AM EST I called pt and let him know via Voice Mail also talked to Blanca DAVENPORT.She is aware documented in this encounter Plan of Treatment Upcoming Encounters Date Type Department Care Team (Late st Contact Info) Description 01/03/2025 1:00 PM EDT Office Visit [facility] - Family Medicine [address] [place] [phone] Sandip Woo DO [address] [place] [address] documented as of this encounter Visit Diagnoses Not on filedocumented in this encounter Additional Health Concerns Assessment Noted Time PHQ-9 Depression Total Score: 0 06/05/19 25 12:55 PM EST documented as of this encounter Care Teams Personal Lines Insurance Advisor Relationship Specialty Start Date End Date Sandip Woo DO [address] [place] [address] PCP - General Internal Medicine 01/12/23 documented as of this encounter
--- OUTSIDE RECORDS SUMMARY | 2024-12-31 13:09 | XMS_ITS | Encounter Summary ---
Author Organization [employer] [facility] tem Address [id number] [address] [place] [address] Care Team Providers Care Gas Turbine Mechanic Name Role Phone Sandip Woo DO Primary Care Provider [phone] Reason for Referral * Consultation (Routine) - Closed Specialty Diagnoses / Procedures Referred By Otoniel cruz Referred To Contact Orthopaedic Surgery Diagnoses Primary osteoarthritis of right shoulder Sandip Woo DO [address] [place] [address] Phone: tel: fax: Kaveh Mayer DO Phone: tel: fax: Referral ID Status Reason Start Date Expiration Date V isits Requested Visits Authorized [id number] Closed Specialty Services Required 03/21/2023 03/20/2024 4 4 Encounter Details Date Type Department Care Team (Late st Contact Info) Description 03/21/2023 Orders Only [facility] Internal [facility] - Family Medicine [address] [place] [address] Sandip Woo DO [address] [place], [place] [id number] Primary osteoarthritis of right shoulder (Primary Dx) Social History Tobacco Use Types Packs/Day Years Used Date Smoking Tobacco: Never Smokeless Tobacco: Never Alcohol Use Standard Drinks/Week Comments Yes 2 (1 standard drink = 0.6 oz pur e alcohol) PHQ-2 Answer Date Recorded Total Score 0 03/10/2023 Childcare Answer Date Recorded Childcare Unknown 04/11/2020 Employment Answer Date Recorded Employment Unknown 04/11/2020 Hunger Screening Answer Date Recorded Within the past 12 months we worried whether our food would run out before we got money to buy more. Never True 03/10/2023 Within the past 12 months th e food we bought just didn't last and we didn't have money to get more. Never True 03/10/2023 Purpose - Life Answer Date Recorded Purpose [...] Internal Medicine - Family Medicine [address] [place] [address] Sandip Woo DO [address] [place] [address] documented as of this encounter Results * Ambulatory referral to Orthopedic Surgery (04/11/2023 4:00 PM EST) Sandip Woo DO OUTPATIENT REFERRAL ORDERABLES F inal Result MANUALLY TRANSCRIBED RESULTS documented in this encounter Visit Diagnoses Diagnosis Primary osteoarthritis of right shoulder- Primary documented in this encounter Additional Health Concerns Assessment Noted Time PHQ-9 Depression Total Score: 0 03/10/20 23 11:32 AM EDT documented as of this encounter Care Teams Gas Turbine Mechanic Relationship Specialty Start Date End Date Sandip Woo DO [address] [place] [address] PCP - General Internal Medicine 01/12/23 documented as of this encounter
--- OUTSIDE RECORDS SUMMARY | 2024-12-31 13:09 | XMS_ITS | Encounter Summary ---
Author Organization [employer] tem Address [facility] [id number] [address] [place] [address] Care Team Providers Care Pipe Connector Name Role Phone Sandip Woo DO Primary Care Provider [phone] Encounter Details Date Type Department Care Team (Late st Contact Info) Description 03/18/2023 Orders Only [facility] Internal Medicine - Family Medicine [address] [place] [phone] Brandi Hurley CMA Chronic right shoulder pain Social History Tobacco Use Types Packs/Day Years [...] on file documented as of this encounter Progress Notes * Sandip Woo DO - 03/18/2023 11:48 AM EDT Referred to [facility] documented in this encounter Plan of Treatment Upcoming Encounters Date Type Department Care Team (Late st Contact Info) Description 01/03/2025 1:00 PM EDT Office Visit [facility] - Family Medicine [address] [place] [address] Sandip Woo DO [address] [place] [address] documented as of this encounter Procedures Procedure Name Priority Date/Time Associated Diagnosis Comments XR SHOULDER RT MIN 2 VWS Routine 03/18/2023 11:49 AM EDT Chronic right shoulder pain documented in this encounter Results * X-ray shoulder right minimum 2 views (03/18/2023 11:49 AM EDT) Anatomical Region Laterality Modality MSK, Upper Extremities, Shoulder Right Computed Radiography Sandip Woo DO IM DIAGNOSTIC IMAGING ORDERABLE S Final Result documented in this encounter Visit Diagnoses Diagnosis Chronic right shoulder pain Pain in joint, shoulder region documented in this encounter Additional Health Concerns Assessment Noted Time PHQ-9 Depression Total Score: 0 03/10/20 11:32 AM EDT documented as of this encounter Care Teams Pipe Connector Relationship Specialty Start Date End Date Sandip Woo DO [address] [place] [address] PCP - General Internal Medicine 01/12/23 documented as of this encounter
--- OUTSIDE RECORDS SUMMARY | 2024-12-31 13:09 | XMS_ITS | Encounter Summary ---
Author Organization [facility] Address [facility] [id number] [address] [place] [address] Care Team Providers Care Raftsman Name Role Phone Sandip Woo DO Primary Care Provider [phone] Encounter Details Date Type Department Care Team (Late Contact Info) Description 04/11/2023 Orders Only [facility] Internal Medicine - Family Medicine [address] [place] [phone] Sandip Woo DO [address] [place] [address] Primary osteoarthritis of right shoulder Social History Tobacco Use Types Packs/Day Years [...] Internal Medicine - Family Medicine [address] [place] [address] Sandip Woo DO [address] [place] [address] documented as of this encounter Procedures Procedure Name Priority Date/Time Associated Diagnosis Comments AMB REFERRAL TO ORTHOPEDIC SURGERY Routine 04/11/2023 4:00 PM EST Primary osteoarthritis of right shoulder documented in this encounter Results * Ambulatory referral to Orthopedic Surgery (04/11/2023 4:00 PM EST) Sandip Woo DO OUTPATIENT REFERRAL ORDERABLES F inal Result MANUALLY TRANSCRIBED RESULTS documented in this encounter Visit Diagnoses Diagnosis Primary osteoarthritis of right shoulder documented in this encounter Additional Health Concerns Assessment Noted Time PHQ-9 Depression Total Score: 0 03/10/20 11:32 AM EDT documented as of this encounter Care Teams Raftsman Relationship Specialty Start Date End Date Sandip Woo DO [address] [place] [address] PCP - General Internal Medicine 01/12/23 documented as of this encounter
--- OUTSIDE RECORDS SUMMARY | 2024-12-31 13:09 | XMS_ITS | Encounter Summary ---
Author Organization [employer] [facility] tem Address [facility] [id number] [address] [place] [address] Care Team Providers Care Scalper Operator Name Role Phone Sandip Woo DO Primary Care Provider Encounter Details Date Type Department Care Team ([facility] Contact Info) Description 12/19/2023 Orders Only [facility] Internal Medicine - Family Medicine [address] [place] [address] Ref Prov, [place] [address] Social History Tobacco Use Types Packs/Day Years [...] Description 01/03/2025 1:00 PM EDT [facility] [address] [place] [address] Sandip Woo DO [address] [place] [address] documented as of this encounter Procedures Procedure Name Priority Date/Time Associated Diagnosis Comments ECHO DOPPLER Routine 12/16/2023 3:19 PM EDT ECG 12-LEAD Routine 12/16/2023 12:08 PM EDT documented in this encounter Results * Echo Doppler (12/16/2023 3:19 PM EDT) Anatomical Region Laterality Modality Chest N/A Ultrasound us Not In System Ref Prov CV ECHO ORDERABLES Final Result * ECG 12 lead (12/16/2023 12:08 PM EDT) us Not In System Ref Prov ECG ORDERABLES Final Res ult MANUALLY TRANSCRIBED RESULTS documented in this encounter Visit Diagnoses Not on filedocumented in this encounter Additional Health Concerns Assessment Noted Time PHQ-9 Depression Total Score: 0 09/07/19 24 1:09 PM EDT documented as of this encounter Care Teams Scalper Operator Relationship Specialty Start Date End Date Sandip Woo DO [address] [place] [address] PCP - General Internal Medicine 01/12/23 documented as of this encounter
--- OUTSIDE RECORDS SUMMARY | 2024-12-31 13:09 | XMS_ITS | Encounter Summary ---
Author Organization [facility] tem Address [facility] [id number] [address] [place] [address] Care Team Providers Care Drill Hand Name Role Phone Sandip Woo DO Primary Care Provider [phone] Encounter Details Date Type Department Care Team (Late Contact Info) Description 12/16/2023 Orders Only [facility] Internal Medicine - Family Medicine [address] [place] [address] External, Scanning Provider Social History Tobacco Use Types Packs/Day Years [...] Description 01/03/2025 1:00 PM EDT [facility] - [facility] [address] [place] [address] Sandip Woo DO [address] [place] [address] documented as of this encounter Procedures Procedure Name Priority Date/Time Associated Diagnosis Comments XR CHEST 1 VW Routine 12/16/2023 8:28 AM EDT documented in this encounter Results * X-ray chest 1 view (12/16/2023 8:28 AM EDT) Anatomical Region Laterality Modality Body, Chest N/A Computed Radiogr aphy us Scanning Provider External IMG DIAGNOSTIC IMAGIN G ORDERABLES Final Result documented in this encounter Visit Diagnoses Not on filedocumented in this encounter Additional Health Concerns Assessment Noted Time PHQ-9 Depression Total Score: 0 09/07/19 24 1:09 PM EDT documented as of this encounter Care Teams Drill Hand Relationship Specialty Start Date End Date Sandip Woo DO [address] [place] [address] PCP - General Internal Medicine 01/12/23 documented as of this encounter
--- OUTSIDE RECORDS SUMMARY | 2024-12-31 13:09 | XMS_ITS | Encounter Summary ---
Author Organization [employer] [facility] tem Address [id number] [address] [place] [address] Care Team Providers Care Measurement Department Chief Clerk Name Role Phone Sandip Woo DO Primary Care Provider [phone] Encounter Details Date Type Department Care Team (Late Contact Info) Description 01/03/2024 Orders Only [facility] Internal Medicine - Family Medicine [address] [place] [address] External, Scanning Provider Social History Tobacco Use Types Packs/Day Years Used Date Smoking Tobacco: Never Smokeless Tobacco: Never Alcohol Use Standard Drinks/Week Comments Yes 2 (1 standard drink = 0.6 oz pur e alcohol) PHQ-2 Answer Date Recorded Total Score 0 01/02/2024 Childcare Answer Date Recorded Childcare Unknown 04/11/2020 Employment Answer Date Recorded Employment Unknown 04/11/2020 Hunger Screening Answer Date Recorded Within the past 12 months we worried whether our food would run out before we got money to buy more. Never True 01/02/2024 Within the past 12 months th e food we bought just didn't last and we didn't have money to get more. Never True 01/02/2024 Purpose - Life Answer Date Recorded Purpose [...] Description 01/03/2025 1:00 PM EDT [facility] [address] [place] [address] Sandip Woo DO [address] [place] [address] documented as of this encounter Procedures Procedure Name Priority Date/Time Associated Diagnosis Comments ECG 12-LEAD Routine 01/02/2024 10:17 AM EDT XR CHEST 1 VW Routine 01/02/2024 10:11 AM EDT documented in this encounter Results * ECG 12 lead (01/02/2024 10:17 AM EDT) us Scanning Provider External ECG ORDERABLES Final Result MANUALLY TRANSCRIBED RESULTS * X-ray chest 1 view (01/02/2024 10:11 AM EDT) Anatomical Region Laterality Modality Body, Chest N/A Computed Radiogr aphy us Scanning Provider External IMG DIAGNOSTIC IMAGIN G ORDERABLES Final Result documented in this encounter Visit Diagnoses Not on filedocumented in this encounter Additional Health Concerns Assessment Noted Time PHQ-9 Depression Total Score: 0 01/02/20 24 2:38 PM EDT documented as of this encounter Care Teams Measurement Department Chief Clerk Relationship Specialty Start Date End Date Sandip Woo DO [address] [place] [address] PCP - General Internal Medicine 01/12/23 documented as of this encounter
--- OUTSIDE RECORDS SUMMARY | 2024-12-31 13:09 | XMS_ITS | Encounter Summary ---
Author Organization [facility] Address [address] [facility] [place] [address] Care Team Providers Care Department Head [employer] Name Role Phone Sandip Woo MD Primary Care Provider [phone] Encounter Details Date Type Department Care Team (Late st Contact Info) Description 03/24/2023 Orders Only [facility] [address] [place] [address] Sandip Woo MD [address] [place] [address] Social History Tobacco Use Types Packs/Day Years Used Date Smoking Tobacco: Never Assessed Sex and Gender Information Value Date Recorded Sex Assigned at Not on file Legal Sex Male 7:03 PM EDT Gender Identity Not on file Sexual Orientation Not on file documented as of this encounter Plan of Treatment Not on file documented as of this encounter Procedures Procedure Name Priority Date/Time Associated Diagnosis Comments XR SHOULDER 2+ VIEWS RIGHT Routine 03/24/2023 1:13 PM EDT documented in this encounter Results * XR shoulder 2+ views right (03/24/2023 1:13 PM EDT) Anatomical Region Laterality Modality Upper Extremities, Shoulder Right Radi ographic Imaging us Sandip Woo MD IMG XR PROCEDURES Final Result documented in this encounter Visit Diagnoses Not on filedocumented in this encounter Care Teams Department Head College [employer] Relationship Specialty Start Date End Date Sandip Woo MD PCP - General Internal Medicine 03/28/23 documented as of this encounter
--- OUTSIDE RECORDS SUMMARY | 2024-12-31 13:09 | XMS_ITS | Encounter Summary ---
Author Organization [employer] Address [facility] [id number] [address] [place] [address] Care Team Providers Care Fund Accounting Manager Name Role Phone Sandip Woo DO Primary Care Provider [phone] Encounter Details Date Type Department Care Team (Late st Contact Info) Description 02/23/2024 Telephone [facility] Internal Medicine - Family Medicine [address] [place] [address] CMA Social History Tobacco Use Types Packs/Day Years Used Date Smoking Tobacco: Never Smokeless Tobacco: Never Alcohol Use Standard Drinks/Week Comments Yes 2 (1 standard drink = 0.6 oz pur e alcohol) PHQ-2 Answer Date Recorded Total Score 0 02/21/2024 Childcare Answer Date Recorded Childcare Unknown 04/11/2020 Employment Answer Date Recorded Employment Unknown 04/11/2020 Hunger Screening Answer Date Recorded Within the past 12 months we worried whether our food would run out before we got money to buy more. Never True 02/21/2024 Within the past 12 months th e food we bought just didn't last and we didn't have money to get more. Never True 02/21/2024 Purpose - Life Answer Date Recorded Purpose and direction in life Unknown Sex and Gender Information Value Date Recorded Sex Assigned at Not on file Legal Sex Male 11:32 AM EDT Gender Identity Not on file Sexual Orientation Not on file documented as of this encounter Miscellaneous Notes * Telephone Encounter - Eneida Lane CMA - 02/23/2024 12:23 PM EDT Pt called forgot to ask you to refill his allegria? documented in this encounter Plan of Treatment Upcoming Encounters Date Type Department Care Team (Late st Contact Info) Description 01/03/2025 1:00 PM EDT Office Visit [facility] Medicine - Family Medicine [address] [place] [address] Sandip Woo DO [address] [place] [address] documented as of this encounter Visit Diagnoses Not on filedocumented in this encounter Additional Health Concerns Assessment Noted Time PHQ-9 Depression Total Score: 0 02/21/20 24 3:00 PM EDT documented as of this encounter Care Teams Fund Accounting Manager Relationship Specialty Start Date End Date Sandip Woo DO [address] [place] [address] PCP - General Internal Medicine 01/12/23 documented as of this encounter
--- OUTSIDE RECORDS SUMMARY | 2024-12-31 13:09 | XMS_ITS | Clinical Summary ---
Author Organization [employer] tem Address [id number] [address] [place] [address] Care Team Providers Care Saw Cleaner Name Role Phone Sandip Woo Primary Care Provider [phone] Allergies Active Allergy Reactions Criticality Noted Date Comments Topiramate Headache,Other (See Comments) 2013 Severe headache Medications albuterol (PROVENTIL HFA;VENTOLIN HFA) 90 mcg/actuation inhaler INHALE 2 PUFFS BY MOUTH EVERY 4 HOURS NEEDED for SHORTNESS OF BREATH or FOR WHEEZING 12/18/19 24 Active aspirin 81 mg chewable tabletIndications :Chronic combined systolic and diastolic CHF (congestive heart failure) ([facility]) Chew 1 tablet (81 mg total) and swallow in the morning. 90 tablet 1 01/16/20 24 Active magnesium oxide 250 mg tabletIndications :Chronic combined systolic and diastolic CHF (congestive heart failure) ([facility]) Take 1 tablet (250 mg total) by mouth in the morning. 90 tablet 1 01/16/20 24 Active atorvastatin (LIPITOR) 40 mg tabletIndications :Type 2 diabetes mellitus without complication, without long-term current use of insulin ([facility]) Take 1 tablet (40 mg total) by mouth nightly. 90 tablet 1 06/05/19 25 Active carvediloL (COREG) 12.5 mg tabletIndications :Chronic combined systolic and diastolic CHF (congestive heart failure) ([facility]) Take 1 tablet (12.5 mg total) by mouth in the morning and 1 tablet (12.5 mg total) in the evening. Take with meals. 180 tablet 1 06/05/19 25 Active furosemide (LASIX) 40 mg tabletIndications :Chronic combined systolic and diastolic CHF (congestive heart failure) ([facility]) Take 1 tablet (40 mg total) by mouth daily. 30 tablet 11 06/05/19 25 Active losartan (COZAAR) 50 mg tabletIndications :Chronic combined systolic and diastolic CHF (congestive heart failure) ([facility]) Take 1 tablet (50 mg total) by mouth in the morning. 90 tablet 1 06/05/19 25 Active spironolactone (ALDACTONE) 25 mg tabletIndications :Chronic combined systolic and diastolic CHF (congestive heart failure) ([facility]) Take 1 tablet (25 mg total) by mouth in the morning. 90 tablet 06/05/19 25 Active dapagliflozin propanediol (FARXIGA) 10 mg tabletIndications :Chronic combined systolic and diastolic CHF (congestive heart failure) ([facility]) Take 1 tablet (10 mg total) by mouth in the morning. 120 tablet 2 06/07/19 25 Active baclofen 5 mg tabletIndications :Primary osteoarthritis of right shoulder Take 2 tablets by mouth 2 (two) times a day as needed (back spasm). 09/04/19 25 Active metFORMIN (GLUCOPHAGE) 1000 mg tabletIndications :Type 2 diabetes mellitus without complication, without long-term current use of insulin ([facility]) TAKE 1 TABLET BY MOUTH TWICE DAILY (IN THE MORNING and BEFORE bedtime) 180 tablet 12/04/19 25 Active cetirizine (ZyrTEC) 10 mg tabletIndications :Non-seasonal allergic rhinitis, unspecified trigger Take 1 tablet (10 mg total) by mouth in the morning. 30 tablet 12/04/19 25 Active metFORMIN (GLUCOPHAGE) 1000 mg tabletIndications :Type 2 diabetes mellitus without complication, without long-term current use of insulin ([facility]) TAKE 1 TABLET BY MOUTH IN THE MORNING then TAKE 1 TABLET BY MOUTH BEFORE bedtime 180 tablet 08/27/19 25 025 Discontinued cetirizine (ZyrTEC) 10 mg tabletIndications :Non-seasonal allergic rhinitis, unspecified trigger Take 1 tablet (10 mg total) by mouth in the morning. 30 tablet 2 09/04/19 25 025 Discontinued Active Problems Problem Noted Date Diagnosed Date Chronic combined systolic an d diastolic CHF (congestive heart failure) 01/16/2024 Stage 3b chronic kidney disease 03/10/2023 Hyperlipidemia 03/10/2023 Type 2 diabetes mellitus wit hout complication, without long-term current use of insulin 03/10/2023 Essential hypertension 03/10/2023 Rotator cuff syndrome of right shoulder 03/10/20 23 Obesity, morbid 01/10/2023 Resolved Problems Problem Noted Date Diagnosed Date Resolved Date Acute on chronic systolic co ngestive heart failure 01/02/2024 06/05/2024 Encounters Date Type Department Care Team Description 12/13/2024 Refill [facility] - [facility] Medicine [address] [place] [address] Sandip Woo, Non-seasonal allergic rhinitis, unspecified trigger; Type 2 diabetes mellitus without complication, without long-term current use of insulin ([facility]) 12/04/2024 Telephone [facility] [address] [place] [address] Shanelle Chung [facility] 12/03/2024 Refill [facility] - [facility] [address] [place] [address] Sandip Woo, Non-seasonal allergic rhinitis, unspecified trigger 12/03/2024 Refill [facility] - [facility] [address] [place] [address] Sandip Woo, Type 2 diabetes mellitus without complication, without long-term current use of insulin ([facility]); Non-seasonal allergic rhinitis, unspecified trigger from Last 3 Months Immunizations Immunization Administration Dates Next Due Influenza, Injectable, quadrivalent (PF) 023 Influenza, Trivalent, Adjuvanted 06/05/2024 Tdap 03/10/2023 Family History Medical History Relation Name Comments Diabetes Father Heart failure Father Heart failure Mother Relation Name Status Comments Father Mother Social History Tobacco Use Types Packs/Day Years Used Date Smoking Tobacco: Never Smokeless Tobacco: Never Tobacco Cessation:Counseling Given: Not Answered Alcohol Use Standard Drinks/Week Comments Yes 2 [...] got money to buy more. Never True 09/03/2024 Within the past 12 months th e food we bought just didn't last and we didn't have money to get more. Never True 09/03/2024 Purpose - Life Answer Date Recorded Purpose and direction in life Unknown Sex and Gender Information Value Date Recorded Sex Assigned at Not on file Legal Sex Male 11:32 AM EDT Gender Identity Not on file Sexual Orientation Not on file Last Filed Vital Signs Vital Sign Reading Time Taken Comments Blood Pressure 112/70 09/03/2024 1:48 PM EDT bp cuff not big enough Pulse 92 09/03/2024 1:48 PM EDT Temperature 36.4 C (97.5 F) 09/03/2024 1:48 PM EDT Respiratory Rate 20 09/03/2024 1:48 PM EDT Oxygen Saturation 91% 09/03/2024 1:4 8 PM EDT Inhaled Oxygen Concentration - - Weight 186.3 kg (410 lb 12.8 oz) 09/03/2024 1:48 PM EDT Height 167.6 cm (5' 6 ) 09/03/2024 1:48 PM EDT Body Mass Index 66.3 09/03/2024 1:48 PM EDT Plan of Treatment Upcoming Encounters Date Type Department Care Team (Late st Contact Info) Description 01/03/2025 1:00 PM EDT Office Visit [facility] - [facility] Medicine [address] [place] [address] Sandip Woo, [address] [place] [address] Health Maintenance Due Date Last Done Comments Diabetic Ophthalmology Exam 1964 Adult BMI Follow Up Plan 1982 Zoster (Shingles) Vaccine (1 of 2) 2014 Diabetic Foot Exam 01/11/2024 01/10/2023 Influenza Vaccine 01/28/2025 06/05/2024, 03/10/2023 Depression Screening 06/05/2025 06/05/2024 Adult BMI Screening 09/03/2025 09/03/2024 Tobacco Screening 09/03/2025 09/03/2024 DTaP,Tdap and Td Vaccines (2 - Td or Tdap) 03/10/2033 03/10/2023 Medical Devices Not on file Insurance [employer] MEDICARE Care Teams Saw Cleaner Relationship Specialty Start Date End Date Sandip Woo DO [address] [place] [address] PCP - General Internal Medicine 01/12/23
--- OUTSIDE RECORDS SUMMARY | 2024-12-31 13:09 | XMS_ITS | Encounter Summary ---
Author Organization [employer] Address [id number] [address] [place] [address] Care Team Providers Care Detacher Name Role Phone Sandip Woo DO Primary Care Provider [phone] Encounter Details Date Type Department Care Team (Late st Contact Info) Description 12/04/2024 Telephone [facility] - Family Medicine [address] [place] [address] Shanelle Chung CMA Social History Tobacco Use Types Packs/Day [...] encounter Miscellaneous Notes * Telephone Encounter - Shanelle Chung CMA - 12/04/2024 11:33 AM EDT Pharmacist Barbara from [facility] in [place] called inquiring if you could write pt's cetirizine for 90days supply, due to the fact all other meds are 90 day supply. Thank you. * Telephone Encounter - Sandip Woo DO - 12/04/2024 11:33 AM EDT Message noted. No. It is inappropriate. If he is still having symptoms, he was to contact me. * Telephone Encounter - Shanelle Chung CMA - 12/04/2024 11:33 AM EDT I called and notified pharmacy of doc's message. documented in this encounter Plan of Treatment Upcoming Encounters Date Type Department Care Team (Late st Contact Info) Description 01/03/2025 1:00 PM EDT Office Visit [facility] - [facility] Medicine [address] [place] [address] Sandip Woo DO [address] [place] [address] documented as of this encounter Visit Diagnoses Not on filedocumented in this encounter Additional Health Concerns Assessment Noted Time PHQ-9 Depression Total Score: 0 06/05/19 25 12:55 PM EST documented as of this encounter Care Teams Detacher Relationship Specialty Start Date End Date Sandip Woo DO [address] [place] [address] PCP - General Internal Medicine 01/12/23 documented as of this encounter
--- OUTSIDE RECORDS SUMMARY | 2024-12-31 13:09 | XMS_ITS | Encounter Summary ---
Author Organization [employer] tem Address [id number] [address] [place] [address] Care Team Providers Care Spice Miller Name Role Phone Sandip Woo DO Primary Care Provider Encounter Details Date Type Department Care Team (Late Contact Info) Description 02/23/2024 Orders Only [facility] - [facility] Medicine [address] [place] [phone] Sandip Woo DO [address] [place] [address] Bronchitis, allergic, unspecified asthma severity, uncomplicated (Primary Dx) Social History Tobacco Use Types [...] Internal Medicine - Family Medicine [address] [place] [address] Sandip Woo DO [address] [place] [address] documented as of this encounter Visit Diagnoses Diagnosis Bronchitis, allergic, unspecified asthma severity, uncomplicated- Primary documented in this encounter Additional Health Concerns Assessment Noted Time PHQ-9 Depression Total Score: 0 02/21/20 3:00 PM EDT documented as of this encounter Care Teams Spice Miller Relationship Specialty Start Date End Date Sandip Woo DO [address] [place] [address] PCP - General Internal Medicine 01/12/23 documented as of this encounter
--- OUTSIDE RECORDS SUMMARY | 2024-12-31 13:09 | XMS_ITS | Encounter Summary ---
Author Organization [employer] [facility] tem Address [id number] [address] [place] [address] Care Team Providers Care Abstract Clerk Name Role Phone Sandip Woo DO Primary Care Provider [phone] Encounter Details Date Type Department Care Team (Late Contact Info) Description 02/15/2024 Telephone [facility] - [facility] [address] [place] [address] Nitza Oneal CMA Social History Tobacco Use Types Packs/Day Years Used Date Smoking Tobacco: Never Smokeless Tobacco: Never Alcohol Use Standard Drinks/Week Comments Yes 2 (1 standard drink = 0.6 oz pur e alcohol) PHQ-2 Answer Date Recorded Total Score 9 01/16/2024 Childcare Answer Date Recorded Childcare Unknown 04/11/2020 Employment Answer Date Recorded Employment Unknown 04/11/2020 Hunger Screening Answer Date Recorded Within the past 12 months we worried whether our food would run out before we got money to buy more. Never True 01/16/2024 Within the past 12 months th e food we bought just didn't last and we didn't have money to get more. Never True 01/16/2024 Purpose - Life Answer Date Recorded Purpose [...] Description 01/03/2025 1:00 PM EDT [facility] [address] [place] [address] Sandip Woo DO [address] [place] [address] documented as of this encounter Visit Diagnoses Not on filedocumented in this encounter Additional Health Concerns Assessment Noted Time PHQ-9 Depression Total Score: 9 01/16/20 24 4:32 PM EDT documented as of this encounter Care Teams Abstract Clerk Relationship Specialty Start Date End Date Sandip Woo DO [address] [place] [address] PCP - General Internal Medicine 01/12/23 documented as of this encounter
--- OUTSIDE RECORDS SUMMARY | 2024-12-31 13:09 | XMS_ITS | Encounter Summary ---
Author Organization [facility] Address [address] [facility] [place] [address] Care Team Providers Care Human Performance Professor Name Role Phone Sandip Woo MD Primary Care Provider [phone] Encounter Details Date Type Department Care Team (Late st Contact Info) Description 06/09/2023 Abstract [facility] [address] [place] [phone] Inna Jefferson NP Social History Tobacco Use Types Packs/Day Years [...] on file documented as of this encounter Visit Diagnoses Not on filedocumented in this encounter Care Teams Human Performance Professor Relationship Specialty Start Date End Date Sandip Woo MD PCP - General Internal Medicine 03/28/23 documented as of this encounter
--- OUTSIDE RECORDS SUMMARY | 2024-12-31 13:09 | XMS_ITS | Clinical Summary ---
Author Organization [facility] Address [address], [address] [place] [address] Care Team Providers Care Rope Silica Machine Operator Name Role Phone Thom Stern MD Primary Care Provider [phone] Allergies Active Allergy Reactions Criticality Noted Date Comments Topiramate 11/03/2014 Medications DULoxetine (CYMBALTA) 30 MG capsule Take 30 mg by mouth nightly Active traMADol (ULTRAM) 50 MG tablet Take 100 mg by mouth every 6 hours as needed for Pain Active atorvastatin (LIPITOR) 80 MG tablet Take 80 mg by mouth daily Active metoprolol (LOPRESSOR) 12.5 mg TABS Take 6.25 mg by mouth 2 times daily Active pregabalin (LYRICA) 100 MG capsule Take 1 capsule by mouth 2 times daily 60 capsule 0 11/06/2014 Active vitamin D (ERGOCALCIFEROL ) 68768 UNITS capsule Take 1 capsule by mouth once a week for 8 doses 8 capsule 0 11/06/2014 Active tamsulosin (FLOMAX) 0.4 MG capsule Take 1 capsule by mouth daily 30 capsule 3 11/06/2014 Active OXcarbazepine (TRILEPTAL) 150 MG tablet Take 1 tablet by mouth 3 times daily for 15 days 45 tablet 0 11/06/2014 Active Active Problems Problem Noted Date Diagnosed Date CKD (chronic kidney disease) 11/03/2014 Syncope 11/03/2014 Hyperkalemia 11/03/2014 JACQUE (obstructive sleep apnea) Overview (11/03/2014): non compliant home machine Social History Tobacco Use Types Packs/Day Years Used Date Smoking Tobacco: Never Alcohol Use Standard Drinks/Week Comments No 0 (1 standard drink = 0.6 oz pur e alcohol) Sex and Gender Information Value Date Recorded Sex Assigned at Not on file Legal Sex Male 12:35 PM EST Gender Identity Not on file Sexual Orientation Not on file Last Filed Vital Signs Vital Sign Reading Time Taken Comments Blood Pressure 111/66 11/06/2014 12:00 PM EDT Pulse 91 11/06/2014 12:00 PM EDT Temperature 37.1 C (98.8 F) 11/06/2014 12:00 PM EDT Respiratory Rate 19 11/06/2014 12:0 0 PM EDT Oxygen Saturation 99% 11/06/2014 12: 00 PM EDT Inhaled Oxygen Concentration - - Weight 194.6 kg (429 lb 0.2 oz) 015 11:48 PM EDT Height 167.6 cm (5' 6 ) 11/03/2014 4:45 AM EDT Body Mass Index 69.24 11/03/2014 4:45 AM EDT Plan of Treatment Not on file Insurance MEDICARE MEDICARE Advance Directives * Full Code (Latest Code Status on File) Date Activated Date Inactivated Comments 11/03/2014 9:41 AM 11/06/2014 6:48 PM Care Teams Rope Silica Machine Operator Relationship Specialty Start Date End Date Thom Stern MD PCP - General 11/03/14
--- OUTSIDE RECORDS SUMMARY | 2024-12-31 13:09 | XMS_ITS | Encounter Summary ---
Author Organization [employer] Address [id number] [address] [place] [address] Care Team Providers Care Lifestyle Block Farmer Name Role Phone Sandip Woo DO Primary Care Provider [phone] Encounter Details Date Type Department Care Team (Late st Contact Info) Description 09/09/2023 Telephone [facility] - Family Medicine [address] [place] [address] CMA Social History Tobacco Use [...] Telephone Encounter - Eneida Lane CMA - 09/09/2023 12:47 PM EDT ----- Message from Sandip Woo DO sent at 09/08/2023 8:42 PM EDT ----- Reviewed. His blood work shows an improved diabetic test, with the A1c at 6.3% His cholesterol levels are elevated, with the LDL of 90 mg/dL, and goal is 70 mg/dL Kidney and liver and electrolytes are normal. Although the readings look better, I think one of the new medications for the diabetes than helps with weight loss would be a good switch. He can pick out hand a sample of Rybelsus 3 mg daily at the office, so he can try it for a month. Just let us know if he is interested. * Telephone Encounter - Eneida Lane CMA - 09/09/2023 12:47 PM EDT Called pt read your note he is interest is trying in the rybelsus documented in this encounter Plan of Treatment Upcoming Encounters Date Type Department Care Team (Late st Contact Info) Description 01/03/2025 1:00 PM EDT Office Visit [facility] - Family Medicine [address] [place] [address] Sandip Woo DO [address] [place] [address] documented as of this encounter Visit Diagnoses Not on filedocumented in this encounter Additional Health Concerns Assessment Noted Time PHQ-9 Depression Total Score: 0 09/07/19 24 1:09 PM EDT documented as of this encounter Care Teams Lifestyle Block Farmer Relationship Specialty Start Date End Date Sandip Woo DO [address] [place] [address] PCP - General Internal Medicine 01/12/23 documented as of this encounter
--- OUTSIDE RECORDS SUMMARY | 2024-12-31 13:09 | XMS_ITS | Encounter Summary ---
Author Organization [facility] [facility] tem Address [id number] [address] [place] [address] Care Team Providers Care Heart Doctor Name Role Phone Sandip Woo DO Primary Care Provider [phone] Encounter Details Date Type Department Care Team (Late Contact Info) Description 01/03/2023 Orders Only [facility] - Family Medicine [address] [place] [address] External, Scanning Provider Social History Tobacco Use Types Packs/Day Years Used Date Smoking Tobacco: Never Assessed Childcare Answer Date Recorded Childcare Unknown 04/11/2020 Employment Answer Date Recorded Employment Unknown 04/11/2020 Purpose - Life Answer Date Recorded Purpose [...] Medicine - Family Medicine [address] [place] [address] Sandip Woo DO [address] [place] [address] documented as of this encounter Procedures Procedure Name Priority Date/Time Associated Diagnosis Comments MULTIPLE LABS Routine 10/20/2022 9:49 AM EDT MULTIPLE LABS Routine 10/01/2020 9:42 AM EDT documented in this encounter Results * Multiple labs (10/20/2022 9:49 AM EDT) us Scanning Provider External [facility] Final Result MANUALLY TRANSCRIBED RESULTS * Multiple labs (10/01/2020 9:42 AM EDT) us Scanning Provider External [facility] Final Result Performing Organization Address City[facility] Co de Phone Number MANUALLY TRANSCRIBED RESULTS documented in this encounter Visit Diagnoses Not on filedocumented in this encounter Care Teams Heart Doctor Relationship Specialty Start Date End Date Sandip Woo DO [address] [place] [address] PCP - General Internal Medicine 01/12/23 documented as of this encounter
--- OUTSIDE RECORDS SUMMARY | 2024-12-31 13:09 | XMS_ITS | Encounter Summary ---
Author Organization [employer] Address [id number] [address] [place] [address] Care Team Providers Care Costumed Character Entertainer Name Role Phone Sandip Woo DO Primary Care Provider [phone] Encounter Details Date Type Department Care Team (Late st Contact Info) Description 09/22/2023 Telephone [facility] - Family Medicine [address] [place] [address] CMA Social History Tobacco Use [...] Telephone Encounter - Eneida Lane CMA - 09/22/2023 10:40 AM EDT Pt called wanting to to know if you needed to see him after he is done with the samply you gave him? * Telephone Encounter - Sandip Woo DO - 09/22/2023 10:40 AM EDT Message noted. No, I just needed to know whether he tolerated the samples without problems. (Rybelsus). If he did, we will try to send in a longer-term prescription to help with weight loss. * Telephone Encounter - Selma Quijano CMA - 09/22/2023 10:40 AM EDT Left message for patient to call us back. * Telephone Encounter - Brandi Hurley CMA - 09/22/2023 10:40 AM EDT Patient called back and said he is doing good on the medication and you can send in some for him. * Telephone Encounter - Sandip Woo DO - 09/22/2023 10:40 AM EDT Message noted. Rx for Rybelsus 7 mg daily written documented in this encounter Plan of Treatment Upcoming Encounters Date Type Department Care Team (Late st Contact Info) Description 01/03/2025 1:00 PM EDT Office Visit [facility] - Family Medicine [address] [place] [address] Sandip Woo DO [address] [place] [address] documented as of this encounter Visit Diagnoses Not on filedocumented in this encounter Additional Health Concerns Assessment Noted Time PHQ-9 Depression Total Score: 0 04/10/20 24 1:09 PM EDT documented as of this encounter Care Teams Costumed Character Entertainer Relationship Specialty Start Date End Date Sandip Woo DO [address] [place] [address] PCP - General Internal Medicine 01/12/23 documented as of this encounter
--- OUTSIDE RECORDS SUMMARY | 2024-12-31 13:09 | XMS_ITS | Clinical Summary ---
Author Organization [facility] Address [address] [place], [place] [id number] Care Team Providers Care Receptionist Nurse Name Role Phone Jarred KILGORE MD, Thom Nash Primary Care Provider [phone] Allergies Active Allergy Reactions Criticality Noted Date Comments Topiramate Intolerance 10/14/2014 Severe headache Medications pregabalin (LYRICA) 300 mg capsule Take 300 mg by mouth twice daily. Active OXcarbazepine (TRILEPTAL) 150 mg tablet Take 150 mg by mouth three times daily. Active tiZANidine HCl 4 mg capsule Take 4 mg by mouth three times daily as needed. Active DULoxetine (CYMBALTA) 30 mg capsule Take 30 mg by mouth once daily. Active oxyCODONE ER (OXYCONTIN, EXTENDED REL.,) 40 mg Tb12 Take 40 mg by mouth every 8 hours. Active phentermine-top iramate ER 3.75-23 mg 24 Hr Capsule Take 1 capsule by mouth once daily. Active aspirin, enteric coated (ASPIRIN, ENTERIC COATED) 81 mg EC tablet Take 81 mg by mouth once daily. Active atorvastatin (LIPITOR) 80 mg tablet Take 80 mg by mouth once daily. Active metoprolol succinate XL (TOPROL XL) 25 mg 24 hr tablet Take 25 mg by mouth twice daily. Active WARFARIN SODIUM (COUMADIN ORAL) Take 10 mg by mouth once daily. Active AMLODIPINE BESYLATE (AMLODIPINE ORAL) Take 5 mg by mouth once daily. Active morphine SR (MS CONTIN, ORAMORPH SR) 15 mg 12 hr tablet Take 15 mg by mouth twice daily. Active Active Problems Problem Noted Date Diagnosed Date History of DVT (deep vein thrombosis) 10/14/2014 Family History Medical History Relation Comments Diabetes Father Heart Father Heart Mother Hypertension Mother Relation Status Comments Father Mother Social History Tobacco Use Types Packs/Day Years Used Date Smoking Tobacco: Never Smokeless Tobacco: Never Alcohol Use Standard Drinks/Week Comments No 0 (1 standard drink = 0.6 oz pur e alcohol) Sex and Gender Information Value Date Recorded Sex Assigned at Not on file Legal Sex Male 11:42 AM EST Gender Identity Not on file Sexual Orientation Not on file Last Filed Vital Signs Vital Sign Reading Time Taken Comments Blood Pressure 163/83 09/22/2015 1:16 PM EDT Pulse 99 09/22/2015 1:16 PM EDT Temperature 36.9 C (98.5 F) 10/14/2014 1:20 PM EDT Respiratory Rate 16 09/22/2015 1:16 PM EDT Oxygen Saturation - - Inhaled Oxygen Concentration - - Weight 211.5 kg (466 lb 4.8 oz) 09/22/2015 1:16 PM EDT Height 167.6 cm (5' 5.98 ) 09/22/2015 1:16 PM ED T Body Mass Index 75.3 09/22/2015 1:16 PM EDT Plan of Treatment Health Maintenance Due Date Last Done Comments Anxiety Screening 1982 Depression Screening 1982 HIV Screening 1982 Hepatitis C Screening 1982 DTaP,Tdap,Td Vaccine (1 - Tdap) 10/28/1983 Lipid Screening 10/28/1999 CT Colonography 2009 Cologuard (FIT-DNA) 2009 Colonoscopy 2009 Colorectal Cancer Screening 2009 Fecal Occult Blood 2009 Prostate Cancer Screening Discussion 2009 Sigmoidoscopy 2009 Pneumococcal Vaccine: 50+ (1 of 1 - PCV) 2014 Shingrix Vaccine (1 of 2) 2014 Diabetes Screening 10/14/2017 10/14/2014 Influenza Vaccine (#1) 2025 RSV Vaccine (1 - 1-dose 75+ series) 10/28/2039 Procedures Procedure Name Priority Date/Time Associated Diagnosis Comments COMPREHENSIVE METABOLIC PANEL Routine 10/14/2014 2:02 PM EDT History of DVT (deep vein thrombosis) from Last 3 Months or Most Recently Relevant to Health Maintenance Results * (ABNORMAL) COMP METABOLIC PANEL (10/14/2014 2:02 PM EDT) Protein, Total 7.6 6.0 - 8.4 g/dL 10/15/2014 2:33 AM [facility] Albumin 3.7 3.5 - 5.0 g/dL 10/15/2014 2:33 AM [facility] Calcium 9.3 8.5 - 10.5 mg/dL 10/15/2014 2:33 AM [facility] Bilirubin, Total 0.2 0.0 - 1.5 mg/dL 10/15/2014 2:33 AM [facility] Alkaline Phosphatase 126 40 - 150 U/L 10/15/2014 2:33 AM [facility] AST 43(H) 7 - 40 U/L 10/15/2014 2:33 AM [facility] Glucose 98 65 - 100 mg/dL 10/15/2014 2:33 AM [facility] BUN 44(H) 10 - 25 mg/dL 10/15/2014 2:33 AM [facility] Creatinine 2.79(H) 0.70 - 1.40 mg/dL 10/15/2014 2:33 AM [facility] Sodium 136 135 - 146 mmol/L 10/15/2014 2:33 AM [facility] Potassium 4.8 3.5 - 5.0 mmol/L 10/15/2014 2:33 AM [facility] Chloride 91(L) 98 - 110 mmol/L 10/15/2014 2:33 AM [facility] CO2 27 23 - 32 mmol/L 10/15/2014 2:33 AM [facility] Anion Gap 18(H) 0 - 15 mmol/L 10/15/2014 2:33 AM [facility] ALT 33 5 - 50 U/L 10/15/2014 2:33 AM [facility] eGFR- 29 10/15/2014 2:33 AM [facility] eGFR-All Other Races 24 . 10/15/2014 2:33 AM [facility] Comment: eGFR (Estimated GFR) Units of measure: mL/min/1.73 meters squared eGFR is derived from the reexpressed MDRD Study equation using the following parameters: serum creatinine, age, gender and race. The creatinine assay has been calibrated to be traceable to IDMS. An eGFR <60 mL/min/1.73m2 for >3 months is consistent with chronic kidney disease. Refer to KDOQI guidelines for clinical interpretation. In patients with unstable renal function, e.g. those with acute kidney injury, the eGFR may not accurately reflect actual GFR. Blood specimen (specimen) BLOOD SPECIMEN / Unknown 10/14/2014 2:02 PM EDT 10/14/2014 2:07 PM EDT [facility] Final Result [facility] [id number] [place] [address] from Last 3 Months or Most Recently Relevant to Health Maintenance Insurance [employer] MEDICARE Care Teams Receptionist Nurse Relationship Specialty Start Date End Date Thom Stern II, MD PCP - General Internal Medicine 06/03/14
--- OUTSIDE RECORDS SUMMARY | 2024-12-31 13:09 | XMS_ITS | Encounter Summary ---
Author Organization [employer] [facility] Address [facility] [id number] [address] [place] [address] Care Team Providers Care Long Distance Billing Operator Name Role Phone Sandip Woo DO Primary Care Provider [phone] Reason for Visit * Reason Comments Med Refill Encounter Details Date Type Department Care Team (Late st Contact Info) Description 12/13/2024 Refill [facility] - Family Medicine [address] [place] [phone] Sandip Woo DO [address] [place] [address] Non-seasonal allergic rhinitis, unspecified trigger; Type 2 diabetes mellitus without complication, without long-term current use of insulin ([facility]) Social History Tobacco Use Types Packs/Day Years [...] Telephone Encounter - Sandip Woo DO - 12/13/2024 1:32 PM EDT Duplicate request documented in this encounter Plan of Treatment Upcoming Encounters Date Type Department Care Team (Late st Contact Info) Description 01/03/2025 1:00 PM EDT Office Visit [facility] [address] [place] [address] Sandip Woo DO [address] [place] [address] documented as of this encounter Visit Diagnoses Diagnosis Non-seasonal allergic rhinitis, unspecified trigger Type 2 diabetes mellitus without complication, without long-term current use of insulin ([facility]) documented in this encounter Additional Health Concerns Assessment Noted Time PHQ-9 Depression Total Score: 0 06/05/19 25 12:55 PM EST documented as of this encounter Care Teams Long Distance Billing Operator Relationship Specialty Start Date End Date Sandip Woo DO [address] [place] [address] PCP - General Internal Medicine 01/12/23 documented as of this encounter
--- OUTSIDE RECORDS SUMMARY | 2024-12-31 13:09 | XMS_ITS | Encounter Summary ---
Author Organization [employer] [facility] Address [facility] [id number] [address] [place] [address] Care Team Providers Care Collective Bargaining Specialist Name Role Phone Sandip Woo DO Primary Care Provider [phone] Reason for Visit * Reason Comments Med Change Request Encounter Details Date Type Department Care Team ([facility] Contact Info) Description 12/03/2024 Refill [facility] - Family Medicine [address] [place] [phone] Sandip Woo DO [address] [place] [address] Non-seasonal allergic rhinitis, unspecified trigger Social History Tobacco Use Types Packs/Day Years [...] Upcoming Encounters Date Type Department Care Team ([facility] Contact Info) Description 01/03/2025 1:00 PM EDT Office Visit [facility] - [facility] Medicine [address] [place] [address] Sandip Woo DO [address] [place] [address] documented as of this encounter Visit Diagnoses Diagnosis Non-seasonal allergic rhinitis, unspecified trigger documented in this encounter Additional Health Concerns Assessment Noted Time PHQ-9 Depression Total Score: 0 06/05/19 25 12:55 PM EST documented as of this encounter Care Teams Collective Bargaining Specialist Relationship Specialty Start Date End Date Sandip Woo DO [address] [place] [address] PCP - General Internal Medicine 01/12/23 documented as of this encounter
--- OUTSIDE RECORDS SUMMARY | 2024-12-31 13:09 | XMS_ITS | Encounter Summary ---
Author Organization [employer] [facility] Address [id number] [address] [place] [address] Care Team Providers Care Copper Plate Printer Name Role Phone Sandip Woo DO Primary Care Provider [phone] Reason for Visit * Reason Comments Med Refill Encounter Details Date Type Department Care Team (Late st Contact Info) Description 07/20/2023 Refill [facility] - Family Medicine [address] [place] [phone] Sandip Woo DO [address] [place] [address] Essential hypertension; Hyperlipidemia, unspecified hyperlipidemia type Social History Tobacco Use Types Packs/Day Years [...] encounter Miscellaneous Notes * Telephone Encounter - Blanca Burrows 07/20/2023 11:01 AM EST Needs appt documented in this encounter Plan of Treatment Upcoming Encounters Date Type Department Care Team (Late st Contact Info) Description 01/03/2025 1:00 PM EDT Office Visit [facility] [address] [place] [address] Sandip Woo DO [address] [place] [address] documented as of this encounter Visit Diagnoses Diagnosis Essential hypertension Unspecified essential hypertension Hyperlipidemia, unspecified hyperlipidemia type documented in this encounter Additional Health Concerns Assessment Noted Time PHQ-9 Depression Total Score: 0 03/10/20 11:32 AM EDT documented as of this encounter Care Teams Copper Plate Printer Relationship Specialty Start Date End Date Sandip Woo DO [address] [place] [address] PCP - General Internal Medicine 01/12/23 documented as of this encounter
--- OUTSIDE RECORDS SUMMARY | 2024-12-31 13:10 | XMS_ITS | Encounter Summary ---
Author Organization [employer] [facility] Address [facility]-[id number] [address] [place] [address] Care Team Providers Care Geographic Area Intelligence Officer Name Role Phone Sandip Woo DO Primary Care Provider [phone] Encounter Details Date Type Department Care Team (Late st Contact Info) Description 01/19/2024 Telephone [facility] - Family Medicine [address] [place] [phone] Nitza Oneal CMA Social History Tobacco Use [...] encounter Miscellaneous Notes * Telephone Encounter - Nitza Oneal CMA - 01/19/2024 8:49 AM EDT Miles from PT called and states pt declined any more PT just letting you know. * Telephone Encounter - Sandip Woo DO - 01/19/2024 8:49 AM EDT Message noted. documented in this encounter Plan of Treatment Upcoming Encounters Date Type Department Care Team (Late st Contact Info) Description 01/03/2025 1:00 PM EDT Office Visit [facility] - [facility] [address] [place] [address] Sandip Woo DO [address] [place] [address] documented as of this encounter Visit Diagnoses Not on filedocumented in this encounter Additional Health Concerns Assessment Noted Time PHQ-9 Depression Total Score: 9 01/16/20 24 4:32 PM EDT documented as of this encounter Care Teams Geographic Area Intelligence Officer Relationship Specialty Start Date End Date Sandip Woo DO [address] [place] [address] PCP - General Internal Medicine 01/12/23 documented as of this encounter
--- OUTSIDE RECORDS SUMMARY | 2024-12-31 13:10 | XMS_ITS | Encounter Summary ---
Author Organization [employer] [facility] Address [id number] [address] [place] [address] Care Team Providers Care Ehs Engineer Name Role Phone Sandip Woo DO Primary Care Provider [phone] Encounter Details Date Type Department Care Team (Late Contact Info) Description 01/06/2024 Orders Only [facility] - Family Medicine [address] [place] [phone] External, Scanning Provider Social History Tobacco Use [...] Medicine - Family Medicine [address] [place] [phone] Sandip Woo DO [address] [place] [address] documented as of this encounter Procedures Procedure Name Priority Date/Time Associated Diagnosis Comments XR CHEST 1 VW Routine 01/06/2024 8:45 AM EDT documented in this encounter Results * X-ray chest 1 view (01/06/2024 8:45 AM EDT) Anatomical Region Laterality Modality Body, Chest N/A Computed Radiogr aphy us Scanning Provider External IMG DIAGNOSTIC IMAGIN G ORDERABLES Final Result documented in this encounter Visit Diagnoses Not on filedocumented in this encounter Additional Health Concerns Assessment Noted Time PHQ-9 Depression Total Score: 0 01/02/20 24 2:38 PM EDT documented as of this encounter Care Teams Ehs Engineer Relationship Specialty Start Date End Date Sandip Woo DO [address] [place] [address] PCP - General Internal Medicine 01/12/23 documented as of this encounter
--- OUTSIDE RECORDS SUMMARY | 2024-12-31 13:10 | XMS_ITS | Encounter Summary ---
Author Organization [employer] [facility] Address [id number] [address] [place] [address] Care Team Providers Care Associate Director Of Nursing Name Role Phone Snadip Woo DO Primary Care Provider [phone] Encounter Details Date Type Department Care Team (Late st Contact Info) Description 01/24/2024 Telephone [facility] - [facility] Medicine [address] [place] [phone] CMA Social History Tobacco Use [...] Telephone Encounter - Eneida Lane CMA - 01/24/2024 2:08 PM EDT Pts [facility] nurse called to let you know she will be discharging this pt from [facility] for repeat non compliance also pt and nurse stated that he is doing better . She stated she tried to educate him but he declined that as well. Called nurse back to get clarification , left vm to call back * Telephone Encounter - Sandip Woo DO - 01/24/2024 2:08 PM EDT Message noted. * Telephone Encounter - Eneida Lane CMA - 01/24/2024 2:08 PM EDT [facility] called back stated pt is refusing any futher C, last week he was having shortness of breath so he started taking double of his lasix and other diaritic , started urinating more and had less shortness of breath and is feeling better [facility] stated pt is very non compliant but is taking his medications * Telephone Encounter - Sandip Woo DO - 01/24/2024 2:08 PM EDT Message noted. documented in this encounter Plan of Treatment Upcoming Encounters Date Type Department Care Team (Late st Contact Info) Description 01/03/2025 1:00 PM EDT Office Visit [facility] - [facility] [address] [place] [address] Sandip Woo DO [address] [place] [address] documented as of this encounter Visit Diagnoses Diagnosis Chronic combined systolic and diastolic CHF (congestive heart failure) (CMS-HCC) documented in this encounter Additional Health Concerns Assessment Noted Time PHQ-9 Depression Total Score: 9 01/16/20 24 4:32 PM EDT documented as of this encounter Care Teams Associate Director Of Nursing Relationship Specialty Start Date End Date Sandip Woo DO [address] [place] [address] PCP - General Internal Medicine 01/12/23 documented as of this encounter
--- NOTE | 2024-12-31 13:24 | XR_ITS ---
The [address] [address] Patient Name: TANIA SANTANA MRN: [id number] date: 1965 Sex: M Assigned Patient Location: ER Current Patient Location: ER Accession/Order Number: [id number] Exam Date: 12/31/2024 14:00 Report Date: 12/31/2024 14:01 At the request of: ANNALISA SANDOVAL Procedure: XR chest 2V XR chest 2V 12/31/2024 1:53 PM SIGNS AND SYMPTOMS: ^fever, cough, hx sepsis pnx PROTOCOL: Frontal radiograph of the chest COMPARISON: 12/11/2024 FINDINGS: The trachea is midline. There is cardiomegaly. There is perihilar vascular prominence with hazy airspace opacities suggest congestive heart failure. Degenerative changes are noted in the right shoulder. The bony thorax is intact. XR/XR chest 2V IMPRESSION: There is cardiomegaly. There is perihilar vascular prominence with hazy airspace opacities suggest congestive heart failure. Impression dictated by: Miles Cha M.D. 12/31/2024 2:01 PM Dictation Location: [facility] Electronically authenticated by: [id number] Y Date: 12/31/2024 14:01
--- NOTE | 2024-12-31 13:35 | PC.NURSE ---
SOB increasing fro last 2-3 day, lungs diminished
[2024-12-31 13:45] LABS: Hematocrit 44.8 % (42.0-54.0); Hemoglobin 13.4 g/dL (14.0-18.0); Immature Granulocytes Abs Auto 0.09 10^3/uL (0.00-0.03); Immature Granulocytes Pct Auto 0.8 % (0.0-0.5); Lymphocytes Absolute Auto 1.5 10^3/uL (1.2-3.8); Mean Corpuscular HGB Conc 29.9 g/dL (29.9-35.2); Mean Corpuscular Hemoglobin 26.6 pg (25.9-34.0); Mean Corpuscular Volume 89.1 fL (80.0-94.0); PCO2 VBG 66.9 mmHg (40.0-52.0); Platelet Count 202 10^3/uL (150-450); Red Blood Count 5.03 10^6/uL (4.70-6.10); White Blood Count 11.2 10^3/uL (4.0-11.0); pH VBG 7.288 (7.330-7.430)
--- NOTE | 2024-12-31 13:52 | ED.SOB1 ---
HPI - SOB/Dyspnea General Chief Complaint: Upper Respiratory Infection Stated Complaint: URTI COMPLAINTS Time Seen by Provider: 12/31/24 13:18 Source: patient Mode of arrival: Wheelchair History of Present Illness HPI Narrative: Patient presents to the ED with a complaint of shortness of breath and cough. He is also had sweats and chills. He was discharged from the hospital with sepsis and pneumonia about 4 weeks ago. He completed all of his antibiotics and stated he had a pretty good week after that he stated over the past 5 days he has been feeling more poorly. There is a difficulty catching his breath. He is also had a cough. He has had sweats and chills he is unsure if he has had a fever at home. He denies any chest pressure or pain. He is not coughing up any phlegm. He states he does have a history of CHF. He is also on some type of inhaler but states he does not use it because it does not work. He is unsure if he has a COPD diagnosis in his early obese and has a history of diabetes controlled with metformin sleep apnea. He is not taking anything else for his symptoms at this time. MD elicited complaint: shortness of breath and cough Pertinent past history: COPD, congestive heart failure and pneumonia Onset (ago): day(s) Context: recent illness Timing: progressively worsening Severity: moderate Relieving factors: nothing Known history of: COPD, congestive heart failure and recurrent pneumonia Associated symptoms: cough Related Data Home Medications ?Medication ?Instructions ?Recorded ?Confirmed metformin 1,000 mg tablet 1,000 mg PO BID 12/16/23 12/31/24 cetirizine 10 mg tablet 10 mg PO QAM 12/11/24 12/31/24 furosemide 40 mg tablet 40 mg PO DAILY 12/11/24 12/31/24 magnesium oxide 400 mg (241.3 mg 250 mg PO DAILY 12/11/24 12/31/24 magnesium) tablet losartan 50 mg tablet 50 mg PO DAILY 12/31/24 12/31/24 Previous Rx's ?Medication ?Instructions ?Recorded albuterol sulfate 90 mcg/actuation 2 inh inhalation Q4H PRN shortness 12/18/23 aerosol inhaler of breath or wheezing #6.7 grams aspirin 81 mg chewable tablet 81 mg PO QD #30 tabs 01/09/24 atorvastatin 40 mg tablet 40 mg PO QHS #60 tabs 01/09/24 carvedilol 12.5 mg tablet 12.5 mg PO BID #60 tabs 01/09/24 spironolactone 25 mg tablet 25 mg PO QD #30 tabs 01/09/24 empagliflozin 10 mg tablet 10 mg PO DAILY #30 tabs 12/14/24 (Jardiance) Allergies Allergy/AdvReac Type Severity Reaction Status Date / Time topiramate (From Topamax) AdvReac Intermediate Altered Verified 12/16/23 07:22 Sense of Taste [facility] [place] Medical History (Updated 12/31/24 @ 17:00 by YAMILET MARTINEZ DO) Morbid obesity ?E66.01 - Morbid (severe) obesity due to excess calories (ICD-10) Acute on chronic congestive heart failure ?I50.9 - Heart failure, unspecified (ICD-10) Acute combined systolic (congestive) and diastolic (congestive) heart failure ?I50.41 - Acute combined systolic (congestive) and diastolic (congestive) heart failure (ICD-10) Diabetes mellitus type 2 with complications ?E11.8 - Type 2 diabetes mellitus with unspecified complications (ICD-10) Anemia in chronic kidney disease ?N18.9 - Chronic kidney disease, unspecified (ICD-10) ?D63.1 - Anemia in chronic kidney disease (ICD-10) Chronic kidney disease, stage III (moderate) ?N18.30 - Chronic kidney disease, stage 3 unspecified (ICD-10) COPD (chronic obstructive pulmonary disease) ?J44.9 - Chronic obstructive pulmonary disease, unspecified (ICD-10) Moderate protein-calorie malnutrition ?E44.0 - Moderate protein-calorie malnutrition (ICD-10) Hypertension ?I10 - Essential (primary) hypertension (ICD-10) Pulmonary edema ?J81.1 - Chronic pulmonary edema (ICD-10) Anasarca ?R60.1 - Generalized edema (ICD-10) Abnormal colonoscopy ?R93.3 - Abnormal findings on diagnostic imaging of other parts of digestive tract (ICD-10) Surgical History History of appendectomy ?Z90.49 - Acquired absence of other specified parts of digestive tract (ICD-10) Family History (Updated 12/11/24 @ 17:00 by Payton Pitts) Father Diabetes Mother CHF (congestive heart failure) Other Family history of CHF (congestive heart failure) Family history of diabetes mellitus Family history of hypertension Social History (Updated 12/11/24 @ 17:01 by Payton Pitts) Within the past year, how often did you have a drink containing alcohol: never Within the past year, how often did you have six or more drinks on one occasion: never Score interpretation: A score less than 4 is consistent with normal alcohol consumption. Smoking status: Never smoker Second hand tobacco smoke exposure: No Non-prescribed substance use: denies use Previous occupational history: retired Highest level of school completed/degree received: high school graduate Are you now , , , , never or living with a partner: never In a typical week, how many times do you talk on the telephone with family, friends, or neighbors: 3 or more times per week How often do you get together with friends or relatives: 3 or more times per week How often do you attend temple or adventism services: never Do you belong to any clubs or organizations such as temple groups unions, [employer] or athletic groups, or school groups: no Total score: 1 Score interpretation: A score of less than or equal to 1 indicates the most socially isolated. Little interest or pleasure in doing things: not at all Feeling down, depressed, or hopeless: not at all Feel stressed/tense/nervous/anxious/difficulty sleeping: not at all Due to disability, difficulty making decisions: No Do you think of yourself as: straight/heterosexual Gender Identity: male Exam Constitutional Vital Signs, click to edit/add: Last Vital Signs Temp 97.9 F 12/31/24 17:02 Pulse 81 12/31/24 17:02 Resp 20 12/31/24 17:02 BP 134/81 12/31/24 17:02 Pulse Ox 95 12/31/24 17:02 O2 Del Method Nasal Cannula 12/31/24 17:02 O2 Flow Rate 3.5 12/31/24 17:02 Documenting provider has reviewed patient's vital signs: yes General appearance: cooperative Nutritional appearance: obese Orientation/consciousness: Yes awake, Yes oriented to person, Yes oriented to place and Yes oriented to time Respiratory Common normals: no retractions and no use of accessory muscles Effort & inspection: able to speak in complete sentences Auscultation: diminished lung sounds Cardio Common normals: regular rhythm Rate: tachycardic Rhythm: regular rhythm GI Common normals: Normal to inspection, nondistended, normoactive bowel sounds present Neuro Common normals: oriented x3 Sensorium/orientation: awake, alert, oriented to person, oriented to place and oriented to time Psych Common normals: mental status grossly normal, thought process normal, cooperative, affect normal and speech normal Course Course Hospital Course: patient second troponin was elevated from his initial. notified 1610. Vital Signs Vital signs: Vital Signs Temperature 99.2 F 12/31/24 13:05 Pulse Rate 97 H 12/31/24 13:05 Respiratory Rate 22 H 12/31/24 13:05 Blood Pressure 130/69 12/31/24 13:05 Pulse Oximetry 78 L 12/31/24 13:05 Oxygen Delivery Method Room Air 12/31/24 13:05 Temperature 97.9 F 12/31/24 17:02 Pulse Rate 81 12/31/24 17:02 Respiratory Rate 20 12/31/24 17:02 Blood Pressure 134/81 12/31/24 17:02 Pulse Oximetry 95 12/31/24 17:02 Oxygen Delivery Method Nasal Cannula 12/31/24 17:02 Oxygen Delivery Flow Rate 3.5 12/31/24 17:02 MDM - SOB/Dyspnea MDM Narrative Medical decision making narrative: Patient presents to the ED with a complaint of shortness of breath and cough. He is also had sweats and chills. He was discharged from the hospital with sepsis and pneumonia about 4 weeks ago. He completed all of his antibiotics and stated he had a pretty good week after that he stated over the past 5 days he has been feeling more poorly. There is a difficulty catching his breath. He is also had a cough. He has had sweats and chills he is unsure if he has had a fever at home. He denies any chest pressure or pain. He is not coughing up any phlegm. He states he does have a history of CHF. He is also on some type of inhaler but states he does not use it because it does not work. He is unsure if he has a COPD diagnosis in his early obese and has a history of diabetes controlled with metformin sleep apnea. He is not taking anything else for his symptoms at this time. Patient is morbidly obese. He comes in with a saturation of 79%. He is placed on 2 L of nasal cannula oxygen he is not on home oxygen. He does not appear dyspneic on my evaluation. He is alert and oriented. He does have 2+ pedal edema and I suspect this is his baseline he states he has not noticed any worsening swelling. He is a very obese protuberant abdomen no tenderness. Heart sounds he is slightly tachycardic no abnormal rhythms. Lung sounds are diminished bilaterally. He did not have any skin changes. Mentation is baseline he is appropriately interactive. Patient's chest x-ray does suggest congestive heart failure. He is doing fine on 2 L of nasal cannula oxygen I do not believe he needs to be BiPAP at this point. He does show slight acidosis. BNP is elevated and he does have Elevated troponin. Patient's EKG does not show any ST elevation or depression. Patient does not have any chest pain Patient has an elevated BN P. He was given Lasix. Blood sugars in the 300s. He does not have an anion gap but do not suspect DKA. He is slightly acidotic and has a slightly elevated lactic I suspect this may be from his hypoxia. No pneumonia on his x-ray. 2 set troponin did have a delta change however I suspect more demand ischemia rather than NSTEMI. EKG did not show any acute STEMI changes. Discussed this with the ED attending, Dr. Cindy Villalobos was also in the dept and I discussed pt with him regarding admission. Differential Diagnosis Differential diagnosis: Likely acute exacerbation of chronic obstructive airways disease, congestive heart failure and community acquired pneumonia Medical Records Attestation: I reviewed the patient's medical records. Lab Data Attestation: I reviewed the patient's lab results. Labs: Lab Results 12/31/24 12/31/24 12/31/24 Range/Units 13:27 13:42 15:07 WBC 11.2 H (4.0-11.0) 10^3/uL RBC 5.03 (4.70-6.10) 10^6/uL Hgb 13.4 L (14.0-18.0) g/dL Hct 44.8 (42.0-54.0) % MCV 89.1 (80.0-94.0) fL MCH 26.6 (25.9-34.0) pg MCHC 29.9 (29.9-35.2) g/dL RDW 14.6 (11.0-15.0) % Plt Count 202 (150-450) 10^3/uL MPV 10.2 (9.5-13.5) fL Neut % (Auto) 78.0 H (43.0-75.0) % Lymph % (Auto) 13.2 L (20.5-60.0) % Loving % (Auto) 6.1 (1.7-12.0) % Eos % (Auto) 1.5 (0.9-7.0) % Baso % (Auto) 0.4 (0.2-2.0) % Neut # (Auto) 8.7 H (1.4-6.5) 10^3/uL Lymph # (Auto) 1.5 (1.2-3.8) 10^3/uL Loving # (Auto) 0.7 (0.3-0.8) 10^3/uL Eos # (Auto) 0.2 (0.0-0.7) 10^3/uL Baso # (Auto) 0.1 (0.0-0.1) 10^3/uL Abs Immat Gran (auto) 0.09 H (0.00-0.03) 10^3/uL Imm/Tot Granulo (auto) 0.8 H (0.0-0.5) % PT 10.9 (9.0-11.6) sec INR 1.03 APTT 25.5 (22.3-36.2) sec VBG pH 7.288 L (7.330-7.430) VBG pCO2 66.9 H (40.0-52.0) mmHg Sodium 139 (136-145) mmol/L Potassium 4.6 (3.5-5.1) mmol/L Chloride 102 (98-107) mmol/L Carbon Dioxide 36.0 H (21.0-32.0) mmol/L Anion Gap 5.6 BUN 26.0 H (7.0-18.0) mg/dL Creatinine 1.36 H (0.70-1.30) mg/dL Est GFR ( Amer) >60 (>=60 mL/min/1.73m^2) Est GFR (Non-Af Amer) 53 L (>=60 mL/min/1.73m^2) BUN/Creatinine Ratio 19.1 Glucose 301 H (74-106) mg/dL Lactate 2.7 H* (0.4-2.0) mmol/L Calcium 8.8 (8.5-10.1) mg/dL Phosphorus 3.3 (2.6-4.7) mg/dL Magnesium 1.7 L (1.8-2.4) mg/dL Total Bilirubin 0.5 (0.2-1.0) mg/dL AST 18 (15-37) U/L ALT 31 (16-63) U/L Alkaline Phosphatase 147 H (46-116) U/L Troponin I High Sens 83.9 H* 97.4 H* (4.0-76.1) pg/mL NT-Pro-B Natriuret Pep 6561.0 H* (<=900.0) pg/mL Total Protein 6.9 (6.4-8.2) g/dL Albumin 2.8 L (3.4-5.0) g/dL Globulin 4.1 g/dL Albumin/Globulin Ratio 0.7 ECG Data Interpretation: No STEMI. NO acute changes. Critical Care Time Critical Care Time Critical Care Time: Yes Total Critical Care Time: 30 Attestation: seperate of billable procedures. critical care due to hypoxia, consultation, and attention to patient, Discharge Plan Discharge Chief Complaint: Upper Respiratory Infection Clinical Impression: Acute exacerbation of chronic heart failure, Hypoxemia Patient Disposition: Admitted As Inpatient Time of Disposition Decision: 16:20 Condition: Fair Discharge Date/Time: 12/31/24 16:45
[2024-12-31] MEDS: PIPERACILLIN SODIUM/TAZOBACTAM 3.375 GM in 0.9 % SODIUM CHLORIDE 50 ML IV (13:53)
[2024-12-31 14:02] LABS: INR 1.03; Partial Thromboplastin Time 25.5 sec (22.3-36.2); Prothrombin Time 10.9 sec (9.0-11.6)
[2024-12-31 14:06] LABS: Alanine Aminotransferase 31 U/L (16-63); Albumin Globulin Ratio 0.7; Albumin Level 2.8 g/dL (3.4-5.0); Alkaline Phosphatase 147 U/L (46-116); Anion Gap 5.6; Aspartate Amino Transferase 18 U/L (15-37); Blood Urea Nitrogen 26.0 mg/dL (7.0-18.0); Calcium 8.8 mg/dL (8.5-10.1); Carbon Dioxide 36.0 mmol/L (21.0-32.0); Chloride 102 mmol/L (98-107); Estimated GFR (African America >60 (>=60 mL/min/1.73m^2); Estimated GFR (Non-African Ame 53 (>=60 mL/min/1.73m^2); Globulin 4.1 g/dL; Glucose 301 mg/dL (74-106); Potassium 4.6 mmol/L (3.5-5.1); Sodium 139 mmol/L (136-145); Total Protein 6.9 g/dL (6.4-8.2)
[2024-12-31 14:11] LABS: Magnesium 1.7 mg/dL (1.8-2.4)
[2024-12-31 14:13] LABS: NT Pro B Type Natriuretic Pept 6561.0 pg/mL (<=900.0)
[2024-12-31 14:14] LABS: Lactate/Lactic Acid 2.7 mmol/L (0.4-2.0)
--- NOTE | 2024-12-31 14:17 | ECG_ITS ---
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 Measurements Intervals [place] Rate: 84 P: 71 [place]: 178 QRS: 93 QRSD: 100 T: 45 QT: 354 QTc: 395 Interpretive Statements 1100 Sinus rhythm 7102 Moderate right axis deviation 9110 normal ECG Compared to ECG 12/11/2024 13:53:34 Right-axis deviation now present Myocardial infarct finding no longer present Electronically Signed On 12-31-2024 18:26:11 EDT by AARON MONTERO M.D.
[2024-12-31] MEDS: FUROSEMIDE 40 MG/4 ML VIAL IVP ×2 (14:49→23:29)
--- NOTE | 2024-12-31 16:50 | PM.IMHP1 ---
Internal Medicine - H&P: HPI History of Present Illness Chief complaint: URTI COMPLAINTS, HYPOXEMIA, ACUTE EXACERBATION OF Narrative: Mr Garcia is a 59-year-old male with a past medical history notable for diastolic heart failure, diabetes, obesity, sleep apnea who presents to the hospital today with a chief complaint of shortness of breath for the last 3 days. He states he was recently discharged in this hospital approximately 2 weeks ago after being admitted for pneumonia, he has felt quite well since then and approximately 3 days ago he noticed he has trouble breathing. He states his has been getting worse over the past 3 days, he is coughing up sputum so says it is initially like a white foamy and then there is some occasional green chopped up peas that he coughs up as well. He does sleep with a couple of pillows under his head at home. He does report compliance with medication, he has not missed any dose of Lasix recently. He takes 40 mg daily. He denies any chest pain, constipation, nausea or vomiting. He is urinating well. He says he typically urinates roughly 1.5 gallons a day and this is pretty consistent, he has not noticed any decrease in this amount lately. He does not keep track of his daily weights. In the emergency room he was saturating down to 78% on room air and he was breathing initially breathing with about 35-37 respirations per minute. At time my assessment he is saturating well on 2 L and he does appear much more comfortable, he already received 1 dose of IV Lasix. Review of Systems ROS Status of ROS 10 or more systems reviewed and unremarkable except as noted in history and below [facility] Medical History (Updated 12/31/24 @ 17:00 by YAMILET MARTINEZ DO) Morbid obesity ?E66.01 - Morbid (severe) obesity due to excess calories (ICD-10) Acute on chronic congestive heart failure ?I50.9 - Heart failure, unspecified (ICD-10) Acute combined systolic (congestive) and diastolic (congestive) heart failure ?I50.41 - Acute combined systolic (congestive) and diastolic (congestive) heart failure (ICD-10) Diabetes mellitus type 2 with complications ?E11.8 - Type 2 diabetes mellitus with unspecified complications (ICD-10) Anemia in chronic kidney disease ?N18.9 - Chronic kidney disease, unspecified (ICD-10) ?D63.1 - Anemia in chronic kidney disease (ICD-10) Chronic kidney disease, stage III (moderate) ?N18.30 - Chronic kidney disease, stage 3 unspecified (ICD-10) COPD (chronic obstructive pulmonary disease) ?J44.9 - Chronic obstructive pulmonary disease, unspecified (ICD-10) Moderate protein-calorie malnutrition ?E44.0 - Moderate protein-calorie malnutrition (ICD-10) Hypertension ?I10 - Essential (primary) hypertension (ICD-10) Pulmonary edema ?J81.1 - Chronic pulmonary edema (ICD-10) Anasarca ?R60.1 - Generalized edema (ICD-10) Abnormal colonoscopy ?R93.3 - Abnormal findings on diagnostic imaging of other parts of digestive tract (ICD-10) Surgical History History of appendectomy ?Z90.49 - Acquired absence of other specified parts of digestive tract (ICD-10) Family History (Updated 12/11/24 @ 17:00 by Payton Pitts) Father Diabetes Mother CHF (congestive heart failure) Other Family history of CHF (congestive heart failure) Family history of diabetes mellitus Family history of hypertension Social History (Updated 12/11/24 @ 17:01 by Payton Pitts) Within the past year, how often did you have a drink containing alcohol: never Within the past year, how often did you have six or more drinks on one occasion: never Score interpretation: A score less than 4 is consistent with normal alcohol consumption. Smoking status: Never smoker Second hand tobacco smoke exposure: No Non-prescribed substance use: denies use Previous occupational history: retired Highest level of school completed/degree received: high school graduate Are you now , , , , never or living with a partner: never In a typical week, how many times do you talk on the telephone with family, friends, or neighbors: 3 or more times per week How often do you get together with friends or relatives: 3 or more times per week How often do you attend sabianism or jain services: never Do you belong to any clubs or organizations such as sabianism groups unions, fraternal or athletic groups, or school groups: no Total score: 1 Score interpretation: A score of less than or equal to 1 indicates the most socially isolated. Little interest or pleasure in doing things: not at all Feeling down, depressed, or hopeless: not at all Feel stressed/tense/nervous/anxious/difficulty sleeping: not at all Due to disability, difficulty making decisions: No Do you think of yourself as: straight/heterosexual Gender Identity: male Meds Home Medications and Allergies Home Medications ?Medication ?Instructions ?Recorded ?Confirmed ?Type metformin 1,000 mg tablet 1,000 mg PO BID 12/16/23 12/31/24 History albuterol sulfate 90 mcg/actuation 2 inh inhalation Q4H PRN shortness 12/18/23 12/31/24 Rx aerosol inhaler of breath or wheezing #6.7 grams aspirin 81 mg chewable tablet 81 mg PO QD #30 tabs 01/09/24 12/31/24 Rx atorvastatin 40 mg tablet 40 mg PO QHS #60 tabs 01/09/24 12/31/24 Rx carvedilol 12.5 mg tablet 12.5 mg PO BID #60 tabs 01/09/24 12/31/24 Rx spironolactone 25 mg tablet 25 mg PO QD #30 tabs 01/09/24 12/31/24 Rx cetirizine 10 mg tablet 10 mg PO QAM 12/11/24 12/31/24 History furosemide 40 mg tablet 40 mg PO DAILY 12/11/24 12/31/24 History magnesium oxide 400 mg (241.3 mg 250 mg PO DAILY 12/11/24 12/31/24 History magnesium) tablet empagliflozin 10 mg tablet 10 mg PO DAILY #30 tabs 12/14/24 Rx (Jardiance) losartan 50 mg tablet 50 mg PO DAILY 12/31/24 12/31/24 History Allergies Allergy/AdvReac Type Severity Reaction Status Date / Time topiramate (From Topamax) AdvReac Intermediate Altered Verified 12/16/23 07:22 Sense of Taste Exam Narrative Exam Narrative: General: Awake and alert, no acute distress HEENT: Normocephalic, atraumatic, no scleral icterus noted Lungs: It is very difficult to auscultate his lungs secondary to his body habitus, I do not appreciate any breath sounds, difficult to ascertain if there are any crackles or wheezing or rails. Cardiac: Regular rate and rhythm, no murmurs appreciated GI: Soft, nontender, obese, regular bowel sounds. Extremities: Active and passive range of motion intact throughout, +3 pitting edema bilateral lower extremities, removing his socks shows there is a significant indentation at the sock elastic band. Neuro: Cranial nerves II through XII intact, no focal deficits noted Skin: No rashes or lesions, no signs of jaundice Constitutional Vital Signs, click to edit/add: Last Vital Signs Temp 98.6 F 12/31/24 14:30 Pulse 86 12/31/24 16:31 Resp 24 H 12/31/24 16:31 BP 122/83 12/31/24 16:31 Pulse Ox 96 12/31/24 16:31 O2 Del Method Nasal Cannula 12/31/24 14:30 O2 Flow Rate 3.5 12/31/24 14:30 Internal Medicine - H&P: Reslt Labs Labs: Short CBC 12/31/24 Range/Units 13:27 WBC 11.2 H (4.0-11.0) 10^3/uL Hgb 13.4 L (14.0-18.0) g/dL Hct 44.8 (42.0-54.0) % Plt Count 202 (150-450) 10^3/uL BMP 12/31/24 13:27 Sodium 139 Potassium 4.6 Chloride 102 Carbon Dioxide 36.0 H BUN 26.0 H Creatinine 1.36 H Glucose 301 H Calcium 8.8 Liver Function 12/31/24 Range/Units 13:27 Total Bilirubin 0.5 (0.2-1.0) mg/dL AST 18 (15-37) U/L ALT 31 (16-63) U/L Alkaline Phosphatase 147 H (46-116) U/L Albumin 2.8 L (3.4-5.0) g/dL Assessment and Plan Assessment and Plan (1) Acute respiratory failure with hypoxia: Assessment and Plan: ? Admit to [facility] floor, inpatient status with telemetry ? Lasix 40 mg IV push twice daily ? Trend daily weights ? Strict I's and O's ? Continue with supplemental oxygenation, he was 78% on room air upon arrival ? Continue his home CHF medications, spironolactone, carvedilol, and losartan ? There is a question of if he has had empagliflozin in the past, we will initiate Invokana while he is here in the hospital as this is what we have on formulary (2) Acute exacerbation of chronic heart failure: Assessment and Plan: See above ? His echocardiogram is consistent with ejection fraction of 60 to 65% with bilateral atrial enlargement, this was performed in mid November. Given his current presentation, I do not feel any indication to repeat echocardiogram this point in time (3) Diabetes: Assessment and Plan: ? Uncontrolled ? His glucose on arrival today is 306, his hemoglobin A1c on December 12 was 6.9 ? Fingersticks ACHS ? One-time dose of aspart 10 units tonight ? Glargine/long-acting insulin 21 units nightly ? Fast acting insulin Tawanda units ACHS with #2 sliding scale (4) Obesity: (5) Sleep apnea: (6) Lactic acidosis: Assessment and Plan: ? Likely secondary to congestion from CHF/hypoxia ? Repeat levels pending ? Continue with treatment plan as above Plan ? DVT prophylaxis with heparin subcu ? Regular diet with a fluid restriction ? Full code
[2024-12-31 17:15] LABS: Lactate/Lactic Acid 1.3 mmol/L (0.4-2.0)
[2024-12-31 17:34] LABS: Glucose 251 mg/dL (74-106)
[2024-12-31] MEDS: CARVEDILOL 12.5 MG TABLET PO (21:32)
[2024-12-31] MEDS: ATORVASTATIN CALCIUM 40 MG TABLET PO (21:32)
[2024-12-31] MEDS: HEPARIN SODIUM (PORCINE) 5,000 UNIT/ML VIAL 5000 UNIT SUBQ (21:33)
[2024-12-31] MEDS: INSULIN GLARGINE 300 UNIT/3 ML INSULN.PEN 21 UNIT SQ (21:33)
[2024-12-31] MEDS: INSULIN ASPART 300 UNIT/3 ML PEN SUBQ (21:34)
[2024-12-31] MEDS: INSULIN ASPART 300 UNIT/3 ML PEN 7 UNIT SUBQ (21:34)
[2025-01-01] VITALS (17 sets, daily range): BP systolic 105–146; BP diastolic 64–75; PULSE 67–84; TEMP 36.4–37.1; O2SAT 87–91
[2025-01-01] MEDS: HEPARIN SODIUM (PORCINE) 5,000 UNIT/ML VIAL 5000 UNIT SUBQ ×3 (05:10→21:54)
[2025-01-01 05:55] LABS: Hematocrit 44.0 % (42.0-54.0); Hemoglobin 13.1 g/dL (14.0-18.0); Immature Granulocytes Abs Auto 0.07 10^3/uL (0.00-0.03); Immature Granulocytes Pct Auto 0.8 % (0.0-0.5); Lymphocytes Absolute Auto 1.5 10^3/uL (1.2-3.8); Mean Corpuscular HGB Conc 29.8 g/dL (29.9-35.2); Mean Corpuscular Hemoglobin 26.7 pg (25.9-34.0); Mean Corpuscular Volume 89.8 fL (80.0-94.0); Platelet Count 148 10^3/uL (150-450); Red Blood Count 4.90 10^6/uL (4.70-6.10); White Blood Count 8.7 10^3/uL (4.0-11.0)
[2025-01-01 06:25] LABS: Anion Gap 8.5; Blood Urea Nitrogen 30.0 mg/dL (7.0-18.0); Calcium 8.7 mg/dL (8.5-10.1); Carbon Dioxide 33.9 mmol/L (21.0-32.0); Chloride 105 mmol/L (98-107); Estimated GFR (African America >60 (>=60 mL/min/1.73m^2); Estimated GFR (Non-African Ame >60 (>=60 mL/min/1.73m^2); Glucose 234 mg/dL (74-106); Magnesium 1.7 mg/dL (1.8-2.4); Potassium 4.4 mmol/L (3.5-5.1); Sodium 143 mmol/L (136-145)
[2025-01-01] MEDS: CARVEDILOL 12.5 MG TABLET PO ×2 (08:25→21:54)
[2025-01-01] MEDS: ASPIRIN 81 MG TAB.CHEW PO (08:25)
[2025-01-01] MEDS: INSULIN ASPART 300 UNIT/3 ML PEN 7 UNIT SUBQ ×4 (08:25→21:55)
[2025-01-01] MEDS: CETIRIZINE HCL 10 MG TABLET PO (08:25)
[2025-01-01] MEDS: MAGNESIUM OXIDE 400 MG TABLET PO (08:25)
[2025-01-01] MEDS: FUROSEMIDE 40 MG/4 ML VIAL IVP ×2 (08:25→21:54)
[2025-01-01] MEDS: LOSARTAN POTASSIUM 50 MG TABLET PO (08:25)
[2025-01-01] MEDS: SPIRONOLACTONE 25 MG TABLET PO (08:25)
[2025-01-01] MEDS: INSULIN ASPART 300 UNIT/3 ML PEN SUBQ ×4 (08:26→21:56)
--- NOTE | 2025-01-01 08:43 | SWNOTE1 ---
ROLAND and I stopped in pt's room. Pt voiced he was doing okay at home but then started having the shortness of breath. ROLAND asked pt if he followed up with Dr. Breen after last admission. Pt voiced he was unable to make it to 2 appointments but he did call the office to let them know. Pt did also state he has an appointment this Tuesday with PCP Dr. Woo. SW asked pt if he would like to keep seeing Dr. Woo instead because he can not have 2 PCP's. SW did also advise pt that Dr. Breen's office may not let him come back because of the 2 no shows. ROLAND also discussed having home health come see pt, pt did not really respond. SW let pt know he can think about these things. SW to follow as needed.
--- NOTE | 2025-01-01 10:28 | CM.NOTE ---
Rounds made with Dr. Ruggiero, discussed with pt diagnosis and plan of care. Pt continues to require oxygen. No discharge today.
[2025-01-01] MEDS: METOLAZONE 2.5 MG TABLET PO (11:45)
--- NOTE | 2025-01-01 14:49 | CM.NOTE ---
Important Message From Medicare discussed with pt, pt verbalizes understanding and signs paper. Original given to pt and copy placed in pt's chart.
--- NOTE | 2025-01-01 15:22 | PM.PN ---
Progress Note: Subjective Subjective Interval history: On rounds this morning the patient still requires supplemental oxygen. He discusses how he has a cough that he is able to cough up a little bit more mucus. He has noticed an increased amount of diuresis. He discussed his long-term problems with pain in both knees. He had to stop working at [employer]. He is upset that Dr. Lux got into trouble for prescribing opiate medications. He says doctors are afraid to prescribe that stuff to me. In detailed discussion with the nursing and case management staff the patient has a sleep apnea machine but has been noncompliant. They have tried to get him into his sleep center to try and find a different fitting equipment but the patient has been disinterested. Patient had seemed interested to the nursing staff about trying to get into have knee replacement surgery but it is unsure how he will accomplish this. Should be noted that the patient's BMI is 70, with weight of 197.3 kg and height of 5 foot 6 inches. Exam Narrative Exam Narrative: Still on supplemental oxygen at 3 L by nasal cannula. Pulmonary: Crackles in the bases throughout and some rales throughout and diminished breath sounds in the bases throughout consistent with the volume overload. Cardiac: Very distant auscultation. I do not hear any rubs or murmurs. GI: Protuberant. Positive bowel sounds are heard. Lower extremities: Tremendous 3+ pitting edema from his ankles up to his knees but there is a sign that this is slightly improved as his skin is a little bit soft, and the edema is not tense. Constitutional Vital Signs, click to edit/add: Last Vital Signs Temp 97.5 F L 01/01/25 08:20 Pulse 69 01/01/25 14:00 Resp 20 01/01/25 08:20 BP 126/72 01/01/25 08:20 Pulse Ox 90 L 01/01/25 11:19 O2 Del Method Nasal Cannula 01/01/25 11:19 O2 Flow Rate 2 01/01/25 11:19 Progress Note: Objective Labs Labs: Short CBC 01/01/25 Range/Units 05:31 WBC 8.7 (4.0-11.0) 10^3/uL Hgb 13.1 L (14.0-18.0) g/dL Hct 44.0 (42.0-54.0) % Plt Count 148 L (150-450) 10^3/uL BMP 12/31/24 01/01/25 17:19 05:31 Sodium 143 Potassium 4.4 Chloride 105 Carbon Dioxide 33.9 H BUN 30.0 H Creatinine 1.11 Glucose 251 H 234 H Calcium 8.7 Progress Note: A&P Assessment and Plan (1) Acute respiratory failure with hypoxia: (2) Acute exacerbation of chronic heart failure: (3) Diabetes: Qualifiers: Diabetes mellitus type: type 2 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: without detention use Diabetes mellitus complication status: with hyperglycemia Qualified Code(s): E11.65 - Type 2 diabetes mellitus with hyperglycemia (4) Obesity: Qualifiers: Obesity type: due to excess calories Obesity classification: adult class 3 (BMI >= 40) Serious obesity comorbidity presence: with serious comorbidity Body mass index: BMI 70 or greater Qualified Code(s): E66.813 - Obesity, class 3; Z68.45 - Body mass index [BMI] 70 or greater, adult (5) Sleep apnea: Qualifiers: Sleep apnea type: obstructive Qualified Code(s): G47.33 - Obstructive sleep apnea (adult) (pediatric) (6) Lactic acidosis: Plan 1) Acute respiratory failure with hypoxia: Assessment and Plan: ? Lasix 40 mg IV push twice daily - Given a one time dose of METOLAZONE 2.5 MG PO X 1 on 01/01/25. ? Trend daily weights ? Strict I's and O's ? Continue with supplemental oxygenation, he was 78% on room air upon arrival ? Continue his home CHF medications, spironolactone, carvedilol, and losartan ? There is a question of if he has had empagliflozin in the past, we will initiate Invokana while he is here in the hospital as this is what we have on formulary (2) Acute exacerbation of chronic heart failure: Assessment and Plan: See above ? His echocardiogram is consistent with ejection fraction of 60 to 65% with bilateral atrial enlargement, this was performed in mid November. Given his current presentation, I do not feel any indication to repeat echocardiogram this point in time (3) Diabetes: Assessment and Plan: ? Uncontrolled ? Fingersticks ACHS ? Glargine/long-acting insulin 21 units nightly ? Fast acting insulin Tawanda units ACHS with #2 sliding scale (4) Obesity: (5) Sleep apnea: (6) Lactic acidosis: Assessment and Plan: ? Likely secondary to congestion from CHF/hypoxia ? Continue with treatment plan as above Plan ? DVT prophylaxis with heparin subcu ? Regular diet with a fluid restriction, and 2 gram sodium restriction. ? Full code
[2025-01-01 20:46] LABS: Glucose Urine UA NEGATIVE (NEGATIVE)
[2025-01-01 20:56] LABS: Cast Seen? SEEN #/LPF (NONE SEEN); Crystals Seen? None Seen #/HPF (None Seen); Urine Culture Indicated NO
[2025-01-01] MEDS: ATORVASTATIN CALCIUM 40 MG TABLET PO (21:54)
[2025-01-01] MEDS: ACETAMINOPHEN 325 MG TABLET 650 MG PO (21:54)
[2025-01-01] MEDS: INSULIN GLARGINE 300 UNIT/3 ML INSULN.PEN 21 UNIT SQ (21:56)
[2025-01-02] VITALS (22 sets, daily range): BP systolic 81–153; BP diastolic 50–78; PULSE 67–88; TEMP 36.4–36.9; O2SAT 91–95
[2025-01-02] MEDS: HEPARIN SODIUM (PORCINE) 5,000 UNIT/ML VIAL 5000 UNIT SUBQ ×3 (05:54→21:12)
[2025-01-02] MEDS: INSULIN ASPART 300 UNIT/3 ML PEN 7 UNIT SUBQ (08:15)
[2025-01-02] MEDS: INSULIN ASPART 300 UNIT/3 ML PEN SUBQ ×3 (08:15→21:12)
[2025-01-02] MEDS: FUROSEMIDE 40 MG/4 ML VIAL IVP (08:52)
[2025-01-02] MEDS: CARVEDILOL 12.5 MG TABLET PO ×2 (08:52→21:12)
[2025-01-02] MEDS: LOSARTAN POTASSIUM 50 MG TABLET PO (08:52)
[2025-01-02] MEDS: ASPIRIN 81 MG TAB.CHEW PO (08:52)
[2025-01-02] MEDS: CETIRIZINE HCL 10 MG TABLET PO (08:52)
[2025-01-02] MEDS: SPIRONOLACTONE 25 MG TABLET PO (08:52)
[2025-01-02] MEDS: MAGNESIUM OXIDE 400 MG TABLET PO (08:52)
--- NOTE | 2025-01-02 09:40 | CM.NOTE ---
Rounds made with Dr. Jiang discussed with pt lab work and plan of care. Pt continues to require oxygen, will do walk test at discharge for any home oxygen needs. No discharge today.
[2025-01-02] MEDS: MAGNESIUM SULFATE IN WATER 2 GM/50 ML PREMIX IV (10:00)
[2025-01-02] MEDS: INSULIN ASPART 300 UNIT/3 ML PEN 10 UNIT SUBQ ×3 (11:28→21:13)
--- NOTE | 2025-01-02 11:42 | SWNOTE1 ---
ROLAND and I stopped back in pt's room to check in. We talked about him possibly being discharged tomorrow and they will do a walk test with him. SW also asked pt if he has thought about home health. Pt voiced he will keep thinking about it, no decision made right now. SW to follow up tomorrow.
--- NOTE | 2025-01-02 12:47 | PM.PN ---
Progress Note: Subjective Subjective Interval history: Seen and evaluated, he is currently sitting up in bed at the edge of the bed with his feet dangling down. He does endorse breathing better and overall feeling better than when he was first admitted however he is still requiring supplemental oxygen. The patient does not seem interested in managing his sleep apnea. Exam Narrative Exam Narrative: General: Awake and alert, no acute distress, hair is askew HEENT: Normocephalic, atraumatic, no scleral icterus noted Lungs: I do not appreciate any Tory crackles or rhonchi which I first noticed on exam though his body habitus is large and I do not hear the best breath sounds overall. Cardiac: Regular rate and rhythm, no murmurs appreciated GI: Soft, nontender, regular bowel sounds. Extremities: Active and passive range of motion intact throughout, his lower extremity edema does appear to be improving, it is still evident maybe +1+2 but his skin is looser and is certainly not nearly as taut as it was on admission Neuro: Cranial nerves II through XII intact, no focal deficits noted Skin: No rashes or lesions, no signs of jaundice Constitutional Vital Signs, click to edit/add: Last Vital Signs Temp 98.1 F 01/02/25 11:27 Pulse 67 01/02/25 11:58 Resp 12 01/02/25 11:27 BP 101/63 01/02/25 11:27 Pulse Ox 93 L 01/02/25 11:27 O2 Del Method Nasal Cannula 01/02/25 11:27 O2 Flow Rate 2 01/02/25 11:27 Progress Note: Objective Labs Labs: Urine 01/01/25 Range/Units 19:58 Urine Color Lt. yellow (YELLOW) Urine Clarity Clear (CLEAR) Urine pH 6.0 (5.0-9.0) Ur Specific Wheeler 1.020 (1.005-1.025) Urine Protein Negative (NEG/TRACE) mg/dL Urine Glucose (UA) Negative (NEGATIVE) mg/dL Progress Note: A&P Assessment and Plan (1) Acute respiratory failure with hypoxia: Assessment and Plan: ? He is overall net -2.5 L out ? Continue with Lasix 40 mg though increased frequency to 3 times daily ? Metolazone as needed daily if his bicarbonate continues to climb ? Strict I's and O's ? Daily weight ? Patient is noncompliant with his sleep apnea, he essentially refuses to wear his CPAP machine at home. I did discuss with him that there are numerous new options for comfort of the mask however he does not seem interested in these other mask options as well. (2) Acute exacerbation of chronic heart failure: Assessment and Plan: See above, no indication to repeat echocardiogram (3) Diabetes: Assessment and Plan: ? Continue with long-acting insulin 30 units nightly and fast acting 10 units ACHS with sliding scale ?Diabetic diet ? Is A1C7.8 measured on January 01 Qualifiers: Diabetes mellitus complication status: with hyperglycemia Diabetes mellitus retirement insulin use: without intermediate designer use Diabetes mellitus type: type 2 Qualified Code(s): E11.65 - Type 2 diabetes mellitus with hyperglycemia (4) Obesity: Qualifiers: Body mass index: BMI 70 or greater Obesity classification: adult class 3 (BMI >= 40) Obesity type: due to excess calories Serious obesity comorbidity presence: with serious comorbidity Qualified Code(s): E66.813 - Obesity, class 3; Z68.45 - Body mass index [BMI] 70 or greater, adult (5) Sleep apnea: Assessment and Plan: Noncompliant with home CPAP Qualifiers: Sleep apnea type: obstructive Qualified Code(s): G47.33 - Obstructive sleep apnea (adult) (pediatric) (6) Lactic acidosis: Assessment and Plan: Resolved, secondary to fluid congestion Plan ? DVT prophylaxis addressed ? Carb controlled diet with a fluid restriction ? Full code
[2025-01-02] MEDS: ATORVASTATIN CALCIUM 40 MG TABLET PO (21:12)
[2025-01-02] MEDS: ACETAMINOPHEN 325 MG TABLET 650 MG PO (21:12)
[2025-01-02] MEDS: INSULIN GLARGINE 300 UNIT/3 ML INSULN.PEN 30 UNIT SQ (21:14)
[2025-01-03] VITALS (19 sets, daily range): BP systolic 110–117; BP diastolic 64–73; PULSE 64–86; TEMP 36.4–36.7; O2SAT 83–94
[2025-01-03] MEDS: 0.9 % SODIUM CHLORIDE 500 ML 250 ML IV (00:35)
--- NOTE | 2025-01-03 06:08 | PC.NURSE ---
Patient put call light on stating he is having difficulty breathing and he feels he is coughing more. NS bolus stopped. Lung sounds diminished., bp 116/72 spo2 91% on 2L Dr notified.
[2025-01-03] MEDS: HEPARIN SODIUM (PORCINE) 5,000 UNIT/ML VIAL 5000 UNIT SUBQ ×3 (06:20→21:47)
[2025-01-03 06:21] LABS: Hematocrit 39.1 % (42.0-54.0); Hemoglobin 12.0 g/dL (14.0-18.0); Mean Corpuscular HGB Conc 30.7 g/dL (29.9-35.2); Mean Corpuscular Hemoglobin 26.6 pg (25.9-34.0); Mean Corpuscular Volume 86.7 fL (80.0-94.0); Platelet Count 160 10^3/uL (150-450); Red Blood Count 4.51 10^6/uL (4.70-6.10); White Blood Count 6.7 10^3/uL (4.0-11.0)
[2025-01-03 06:40] LABS: Anion Gap 7.6; Blood Urea Nitrogen 37.0 mg/dL (7.0-18.0); Calcium 8.7 mg/dL (8.5-10.1); Carbon Dioxide 38.2 mmol/L (21.0-32.0); Chloride 102 mmol/L (98-107); Estimated GFR (African America >60 (>=60 mL/min/1.73m^2); Estimated GFR (Non-African Ame >60 (>=60 mL/min/1.73m^2); Glucose 133 mg/dL (74-106); Magnesium 2.0 mg/dL (1.8-2.4); Potassium 3.8 mmol/L (3.5-5.1); Sodium 144 mmol/L (136-145)
--- NOTE | 2025-01-03 09:30 | CM.NOTE ---
Rounds made with Dr. Jiang, pt c/o increased SOB today. Pt will get cardiac echo. No discharge today.
[2025-01-03] MEDS: METOLAZONE 2.5 MG TABLET 5 MG PO (09:43)
[2025-01-03] MEDS: MAGNESIUM OXIDE 400 MG TABLET PO (09:43)
[2025-01-03] MEDS: CETIRIZINE HCL 10 MG TABLET PO (09:43)
[2025-01-03] MEDS: ASPIRIN 81 MG TAB.CHEW PO (09:43)
[2025-01-03] MEDS: INSULIN ASPART 300 UNIT/3 ML PEN SUBQ ×3 (11:22→21:50)
--- NOTE | 2025-01-03 11:40 | CA_ITS ---
Patient Name: TANIA SANTANA MR#: [id number] : 1965 Exam Date: 01/03/2025 Ordering Doctor: YAMILET MARTINEZ ECHOCARDIOGRAM REPORT PROCEDURE: CA ECHO DOPPLER COMPLETE INDICATIONS: CHF, hypertension, recent pneumonia COMPARISON: None. DESCRIPTION: COMPLETE ECHOCARDIOGRAM Real-time transthoracic echocardiography with 2D, M-mode, spectral and color flow Doppler performed. QUALITY: Technically difficult study due to patients condition. 66 432# LEFT VENTRICLE: Normal chamber size. Mild concentric left ventricular hypertrophy. Systolic function appears normal. LV EF: Normal left ventricular ejection fraction, (>55%). DIASTOLIC: ATRIAL SEPTUM: LEFT ATRIUM: Mild chamber dilatation. RIGHT ATRIUM: Mild chamber dilatation RIGHT VENTRICLE: Appears mildly dilated with normal systolic function. TRICUSPID VALVE: Normal mobility and thickness. MITRAL VALVE: Normal mobility and thickness. There is no mitral annular calcification. No evidence of mitral stenosis or regurgitation. AORTIC VALVE: Normal trileaflet appearance. No visible sclerosis. Normal leaflet mobility. No evidence of aortic stenosis or regurgitation. AORTIC ROOT: Normal diameter and appearance, measuring 3.2 cm. . PULMONIC VALVE: Not well visualized. No stenosis. No regurgitation. PERICARDIUM: No evidence of pericardial effusion. IVC: PLEURA: CONCLUSION: 1. Technically difficult study due to poor sound transmission which reduces the accuracy of the interpretation. 2. Mild concentric left ventricular hypertrophy. Left ventricular systolic function appears normal. Estimated LVEF is 55%. 3. The right ventricle appears mildly dilated with normal systolic function. 4. Mild biatrial dilatation. 5. No evidence of significant valvular dysfunction seen. Adult Echocardiography Procedure Report Left Ventricle LVEDD (3.7 - 5.6 cm): 5.08 cm LVESD (2.2 - 4.0 cm): 3.53 cm, 3.53 cm LVIVS thickness (0.6 - 1.2 cm): 1.22 cm LVPW thickness (0.5 - 1.0 cm): 1.31 cm LVOT Diameter 1.94 cm, 2.19 cm, 2.36 cm Left Atrium Left Atrium Systolic Dimension: 3.92 cm Mitral Valve Right Ventricle Aorta AO Root Diam: 3.21 cm Aortic Valve Tricuspid Valve Pulmonic Valve Peak Velocity: 0.90 m/s Peak Gradient: 2.77 mm[Hg], 3.75 mm[Hg] Right Atrium Dictated by: Vaughn Aguilar M.D. on 01/05/2025 at 19:42 Approved by: Vaughn Aguilar M.D. on 01/05/2025 at 19:47
--- NOTE | 2025-01-03 13:35 | P.PN_ITS ---
Progress Note: Subjective Subjective Interval history: Seen and evaluated this morning, he is very sleepy as he states he was awake overnight due to some low blood pressure and increased coughing. He was given some IV fluids and notes that he was coughing up a white foamy substance most of the night. Exam Narrative Exam Narrative: General: Awake and alert, no acute distress, little disheveled HEENT: Normocephalic, atraumatic, no scleral icterus noted Lungs: Similar to prior days, I do not appreciate any abnormal breath sounds though he has extreme difficulty auscultate secondary to body habitus Cardiac: Regular rate and rhythm, no murmurs appreciated GI: Soft, nontender, obese regular bowel sounds. Extremities: Active and passive range of motion intact throughout, still with +2 pitting edema, it has plateaued Neuro: Cranial nerves II through XII intact, no focal deficits noted Skin: No rashes or lesions, no signs of jaundice Constitutional Vital Signs, click to edit/add: Last Vital Signs Temp 98.1 F 01/03/25 08:18 Pulse 73 01/03/25 12:08 Resp 20 01/03/25 08:18 BP 116/71 01/03/25 08:18 Pulse Ox 94 L 01/03/25 11:15 O2 Del Method Nasal Cannula 01/03/25 11:15 O2 Flow Rate 2 01/03/25 11:15 Progress Note: Objective Labs Labs: Short CBC 01/03/25 Range/Units 05:46 WBC 6.7 (4.0-11.0) 10^3/uL Hgb 12.0 L (14.0-18.0) g/dL Hct 39.1 L (42.0-54.0) % Plt Count 160 (150-450) 10^3/uL BMP 01/03/25 05:46 Sodium 144 Potassium 3.8 Chloride 102 Carbon Dioxide 38.2 H BUN 37.0 H Creatinine 1.01 Glucose 133 H Calcium 8.7 Progress Note: A&P Assessment and Plan (1) Acute respiratory failure with hypoxia: Assessment and Plan: ? Overall net -5 L ? Lasix was discontinued this morning secondary to contraction alkalosis and low blood pressure ? Continue strict I's and O's ? Daily weights?patient would benefit greatly from sleep apnea/CPAP machine at night however he continues to be noncompliant with even the suggestion of it ? Will initiate antibiotics ceftriaxone 2 g every 24 hour followed by azithromycin 500 mg p.o. daily due to concerns for CAP. I still believe that fluid overload is more likely though given his complaint of occasional green sputum on admission and failure to improve his oxygenation despite being net -5 L, will also treat for community-acquired pneumonia. ? Echocardiogram ordered ?One-time dose of metolazone ordered. (2) Acute exacerbation of chronic heart failure: Assessment and Plan: See above, his GDMT was held this morning ? He is unable to afford SGLT2 inhibitors. (3) Diabetes: Assessment and Plan: Increase his insulin regimen to 30 units nightly and 10 units fast acting ACHS with sliding scale Qualifiers: Diabetes mellitus type: type 2 Diabetes mellitus mcfp insulin use: without intermediate accountant use Diabetes mellitus complication status: with hyperglycemia Qualified Code(s): E11.65 - Type 2 diabetes mellitus with hyperglycemia (4) Obesity: Qualifiers: Obesity type: due to excess calories Obesity classification: adult class 3 (BMI >= 40) Serious obesity comorbidity presence: with serious comorbidity Body mass index: BMI 70 or greater Qualified Code(s): E66.813 - Obesity, class 3; Z68.45 - Body mass index [BMI] 70 or greater, adult (5) Sleep apnea: Assessment and Plan: Noncompliant Qualifiers: Sleep apnea type: obstructive Qualified Code(s): G47.33 - Obstructive sleep apnea (adult) (pediatric) (6) Lactic acidosis: Assessment and Plan: Resolved Plan ? DVT prophylaxis addressed ? Regular diet with a fluid restriction ? Full code
--- NOTE | 2025-01-03 13:47 | CM.NOTE ---
Talked with pt again regarding sleep study, pt continues to refuse at this time. Pt unable to tolerate mask at home, talked about nasal prongs. Pt at this time is not interested.
[2025-01-03] MEDS: AZITHROMYCIN 250 MG TABLET 500 MG PO (16:38)
[2025-01-03] MEDS: INSULIN ASPART 300 UNIT/3 ML PEN 10 UNIT SUBQ ×2 (16:39→21:50)
[2025-01-03] MEDS: ATORVASTATIN CALCIUM 40 MG TABLET PO (21:47)
[2025-01-03] MEDS: ACETAMINOPHEN 325 MG TABLET 650 MG PO (21:47)
[2025-01-03] MEDS: INSULIN GLARGINE 300 UNIT/3 ML INSULN.PEN 30 UNIT SQ (21:49)
[2025-01-04] VITALS (20 sets, daily range): BP systolic 105–131; BP diastolic 64–76; PULSE 69–89; TEMP 36.4–36.9; O2SAT 90–95
[2025-01-04] MEDS: HEPARIN SODIUM (PORCINE) 5,000 UNIT/ML VIAL 5000 UNIT SUBQ ×3 (05:20→22:32)
[2025-01-04 05:47] LABS: Hematocrit 41.3 % (42.0-54.0); Hemoglobin 12.3 g/dL (14.0-18.0); Mean Corpuscular HGB Conc 29.8 g/dL (29.9-35.2); Mean Corpuscular Hemoglobin 26.1 pg (25.9-34.0); Mean Corpuscular Volume 87.7 fL (80.0-94.0); Platelet Count 152 10^3/uL (150-450); Red Blood Count 4.71 10^6/uL (4.70-6.10); White Blood Count 6.4 10^3/uL (4.0-11.0)
[2025-01-04 06:01] LABS: Anion Gap 7.9; Blood Urea Nitrogen 28.0 mg/dL (7.0-18.0); Calcium 8.7 mg/dL (8.5-10.1); Carbon Dioxide 38.2 mmol/L (21.0-32.0); Chloride 101 mmol/L (98-107); Estimated GFR (African America >60 (>=60 mL/min/1.73m^2); Estimated GFR (Non-African Ame >60 (>=60 mL/min/1.73m^2); Glucose 132 mg/dL (74-106); Magnesium 2.1 mg/dL (1.8-2.4); Potassium 4.1 mmol/L (3.5-5.1); Sodium 143 mmol/L (136-145)
--- NOTE | 2025-01-04 07:24 | CM.NOTE ---
2nd Important Message From Medicare discussed with pt, denies questions or concerns.
[2025-01-04] MEDS: AZITHROMYCIN 250 MG TABLET 500 MG PO (09:05)
[2025-01-04] MEDS: CETIRIZINE HCL 10 MG TABLET PO (09:05)
[2025-01-04] MEDS: MAGNESIUM OXIDE 400 MG TABLET PO (09:06)
[2025-01-04] MEDS: ASPIRIN 81 MG TAB.CHEW PO (09:06)
[2025-01-04] MEDS: SPIRONOLACTONE 25 MG TABLET PO (09:34)
[2025-01-04] MEDS: METOLAZONE 2.5 MG TABLET 5 MG PO (09:46)
[2025-01-04] MEDS: FUROSEMIDE 40 MG/4 ML VIAL IVP ×2 (09:46→22:31)
--- NOTE | 2025-01-04 10:00 | CM.NOTE ---
Rounds made with Dr. Jiang, no discharge today. Continue diuresis and monitor patient. Pt continues with SOB with minimal activity. Pt will need walk test at discharge.
[2025-01-04] MEDS: INSULIN ASPART 300 UNIT/3 ML PEN 10 UNIT SUBQ (11:30)
[2025-01-04] MEDS: INSULIN ASPART 300 UNIT/3 ML PEN SUBQ ×2 (11:30→16:50)
--- NOTE | 2025-01-04 12:24 | PM.PN ---
Progress Note: Subjective Subjective Interval history: Patient seen evaluate this morning, he is currently laying in bed, left lateral decubitus. He is on his phone, he says he is starting to feel better than he was yesterday. He is still requiring 2 L nasal cannula, he notes adequate urine output yesterday despite not getting IV Lasix. His blood pressure is better today, I did let him know that we will be resuming the IV Lasix today. Exam Narrative Exam Narrative: General: Awake and alert, no acute distress HEENT: Normocephalic, atraumatic, no scleral icterus noted Lungs: I do not appreciate any abnormal breath sounds though secondary to his body habitus it is very difficult to hear his lungs at all. Cardiac: Regular rate and rhythm, no murmurs appreciated GI: Soft, nontender, regular bowel sounds. Extremities: Active and passive range of motion intact throughout, +2-3 pitting edema in his bilateral lower extremities, the skin around his edema is beginning to be less taut and wrinkles with palpation now. He does still have a significant amount of fluid on his lower extremities. Neuro: Cranial nerves II through XII intact, no focal deficits noted Skin: No rashes or lesions, no signs of jaundice Constitutional Vital Signs, click to edit/add: Last Vital Signs Temp 97.8 F 01/04/25 09:02 Pulse 89 01/04/25 12:00 Resp 20 01/04/25 09:02 BP 123/69 01/04/25 09:34 Pulse Ox 92 L 01/04/25 09:45 O2 Del Method Nasal Cannula 01/04/25 09:45 O2 Flow Rate 2 01/04/25 09:45 Progress Note: Objective Labs Labs: Short CBC 01/04/25 Range/Units 05:11 WBC 6.4 (4.0-11.0) 10^3/uL Hgb 12.3 L (14.0-18.0) g/dL Hct 41.3 L (42.0-54.0) % Plt Count 152 (150-450) 10^3/uL BMP 01/04/25 05:11 Sodium 143 Potassium 4.1 Chloride 101 Carbon Dioxide 38.2 H BUN 28.0 H Creatinine 0.93 Glucose 132 H Calcium 8.7 Progress Note: A&P Assessment and Plan (1) Acute respiratory failure with hypoxia: Assessment and Plan: ? Continue some oxygen as needed, titrate as able to ? Will plan to resume Lasix 40 mg IV push twice daily today ? He will receive a one-time dose of metolazone today for continued contraction alkalosis with a bicarb of 38 ? His kidneys are tolerating the Lasix well ?He is overall net -6 L as of this morning ? Continue with Aldactone therapy ? Will for the short-term stop his losartan and carvedilol secondary to hypotension related to Lasix therapy. This should be reintroduced in a stepwise fashion when his blood pressure is improved after diuresis ? Echocardiogram performed yesterday shows decreased EF to 35 to 40% which is markedly lower than his prior echo just 3 weeks ago showing 65% EF. ? Cardiology on consult ? Unfortunately he is not able to afford SGLT2 inhibitors and he likely does not have the excess blood pressure to be able to tolerate this medication the time being. Will not plan to start this here in the hospital or on discharge. He is currently on ceftriaxone azithromycin for CAP, at this juncture in time I do feel he is still consistent with fluid overload/CHF exacerbation however given his continued hypoxemia I did initiate ceftriaxone and azithromycin yesterday just in case there is a pneumonia brewing in the background, on admission he did state he has had numerous episodes of coughing up green phlegm. (2) Acute exacerbation of chronic heart failure: Assessment and Plan: See above (3) Diabetes: Assessment and Plan: ? His A1c is 7.8, despite insulin therapy he has been hyperglycemic this admission ? Continue with caloric restriction diet ? 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: without group home use Diabetes mellitus complication status: with hyperglycemia Qualified Code(s): E11.65 - Type 2 diabetes mellitus with hyperglycemia (4) Obesity: Qualifiers: Obesity type: due to excess calories Obesity classification: adult class 3 (BMI >= 40) Serious obesity comorbidity presence: with serious comorbidity Body mass index: BMI 70 or greater Qualified Code(s): E66.813 - Obesity, class 3; Z68.45 - Body mass index [BMI] 70 or greater, adult (5) Sleep apnea: Assessment and Plan: Patient is noncompliant with recommendations for CPAP at home, we have continued to discuss with him on daily basis Qualifiers: Sleep apnea type: obstructive Qualified Code(s): G47.33 - Obstructive sleep apnea (adult) (pediatric) (6) Lactic acidosis: Assessment and Plan: Secondary to fluid congestion, resolved Plan ? DVT prophylaxis addressed ? Regular diet with a caloric restriction for diabetes ? Full code
--- NOTE | 2025-01-04 14:13 | SWNOTE1 ---
ROLAND stopped in to see how pt was doing today. Pt sitting on edge of bed. He voiced he was not discharging today, has some more fluid to get off. ROLAND again offered HH services for once he returns home, at least a nurse. Pt still refusing at this time. He voiced he still has phone number of HH nurse he had in past. ROLAND advised that if he tries to get set up with HH once he leaves here, they would have to go through his PCP. He voiced understanding.
[2025-01-04] MEDS: INSULIN ASPART 300 UNIT/3 ML PEN 15 UNIT SUBQ ×2 (16:51→22:36)
[2025-01-04] MEDS: ATORVASTATIN CALCIUM 40 MG TABLET PO (22:32)
[2025-01-04] MEDS: INSULIN GLARGINE 300 UNIT/3 ML INSULN.PEN 45 UNIT SQ (22:35)
[2025-01-05] VITALS (20 sets, daily range): BP systolic 104–138; BP diastolic 66–87; PULSE 69–99; TEMP 36.6–37.1; O2SAT 90–94
[2025-01-05] MEDS: HEPARIN SODIUM (PORCINE) 5,000 UNIT/ML VIAL 5000 UNIT SUBQ ×3 (06:08→21:23)
[2025-01-05 06:31] LABS: Hematocrit 42.0 % (42.0-54.0); Hemoglobin 13.0 g/dL (14.0-18.0); Mean Corpuscular HGB Conc 31.0 g/dL (29.9-35.2); Mean Corpuscular Hemoglobin 26.6 pg (25.9-34.0); Mean Corpuscular Volume 86.1 fL (80.0-94.0); Platelet Count 153 10^3/uL (150-450); Red Blood Count 4.88 10^6/uL (4.70-6.10); White Blood Count 7.8 10^3/uL (4.0-11.0)
[2025-01-05 06:42] LABS: Anion Gap 6.8; Blood Urea Nitrogen 27.0 mg/dL (7.0-18.0); Calcium 8.9 mg/dL (8.5-10.1); Carbon Dioxide 42.4 mmol/L (21.0-32.0); Chloride 96 mmol/L (98-107); Estimated GFR (African America >60 (>=60 mL/min/1.73m^2); Estimated GFR (Non-African Ame >60 (>=60 mL/min/1.73m^2); Glucose 82 mg/dL (74-106); Magnesium 1.8 mg/dL (1.8-2.4); Potassium 3.2 mmol/L (3.5-5.1); Sodium 142 mmol/L (136-145)
[2025-01-05] MEDS: MAGNESIUM OXIDE 400 MG TABLET PO (08:56)
[2025-01-05] MEDS: AZITHROMYCIN 250 MG TABLET 500 MG PO (08:56)
[2025-01-05] MEDS: ASPIRIN 81 MG TAB.CHEW PO (08:56)
[2025-01-05] MEDS: SPIRONOLACTONE 25 MG TABLET PO (08:56)
[2025-01-05] MEDS: CETIRIZINE HCL 10 MG TABLET PO (08:56)
[2025-01-05] MEDS: FUROSEMIDE 40 MG/4 ML VIAL IVP ×2 (08:56→21:23)
[2025-01-05] MEDS: POTASSIUM CHLORIDE 10 MEQ ER TABLET 50 MEQ PO (09:02)
[2025-01-05] MEDS: CARVEDILOL 6.25 MG TABLET PO ×2 (09:02→21:22)
[2025-01-05] MEDS: INSULIN ASPART 300 UNIT/3 ML PEN SUBQ ×3 (11:50→21:24)
--- NOTE | 2025-01-05 13:03 | PM.PN ---
Progress Note: Subjective Subjective Interval history: I am making the rounds today on Tuesday. I had seen this patient on Tuesday, shortly after he had been admitted with volume overload. Earlier, during the week, an echocardiogram was done that shows that his left ventricular ejection fraction has decreased from 65% down to 35 to 40%. Cardiology had recommended SGLT2 and continue diuresis and commented that in the long run he would need a cardiac catheterization but his weight is above the limit of most of the cardiac catheterization tables. When I see the patient on rounds here on Tuesday morning he says that his cough is much better. In the beginning of the week he was coughing up productive mucus and he described it as green. But now the way he describes his cough it is dry and nonproductive. So the cough is improved a great deal here during this hospital stay. He remains on supplemental oxygen at 2 L by nasal cannula. He still has shortness of breath with minimal exertion, such as getting up from the hospital bed to ambulate to the bathroom. He still has excess edema in his legs. He describes that he did have a cardiac catheterization and a stent a long time ago. 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 He thinks that he might of gotten his cardiac stent here in [place] which I think was unlikely. 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 He describes that he used to see Dr. Cristobal Lux for pain management between 2002 and 2018. He said that on the OxyContin he was able to work at [employer] for 10 more years and he expresses frustration that Dr. Lux got arrested and shut down and the patient has not been able to get opiate pain medications for his knee and hip osteoarthritis. I did try and pull them up in [facility] but were recently goes back for 5 years so I cannot see any of those old prescriptions. He has no recent prescriptions for controlled substances over the last couple years and it looks like for about a year or so he used gabapentin and low-dose tramadol but that stopped many months ago. Today nursing staff began enforcing the 1500 mL fluid restriction. I also think that the patient has not been following the low sodium restriction. He says that they sent him salt packets with his meals. I described the patient he really does need to follow a low-sodium diet. He described that at home he sometimes drinks a large gallon jugs of tea (apparently with caffeine and sugar) and that he really likes sodium in his foods. The patient says that his best weight, when he has been weighed on scales at doctor's offices it is 420 pounds. I pointed out that when he came in he was 198.8 kg. Today is 193.2 kg. So he is at about 424 pounds. On lab work today his potassium is low at 3.2. I ordered oral potassium replacement. During hospital stay his bicarb level has gone up but part of that is contraction alkalosis and part of that is chronic CO2 retention. His creatinine has been stable and is at 1.04 today. His BUN is just up a little bit and is 27 today. His hemoglobin A1c is 7.8. His blood glucoses have been under much better control over the last few days. Exam Narrative Exam Narrative: General: When I walk into the room a little bit before lunchtime he is lying flat in bed on his left side the television is on and one of his friends is speaking to him on speaker phone but he is sound asleep. He wakes up with a little jolt to my arrival. His appearance is very consistent with severe untreated obstructive sleep apnea (falling asleep during phone conversations.) Lower extremities: Still with some pitting edema. This is much improved 1 when I saw him on Tuesday. Has a lot of varicose veins. GI: Abdomen soft, protuberant. Normal bowel sounds to auscultation. Pulmonary: I agree he is very hard to auscultate but today his lung sounds do sound fairly clear. I believe these are improved a nice amount compared to last Tuesday. No focal areas of wheezing. Cardiac: Distant to auscultation but he has regular rate and rhythm to auscultation. Constitutional Vital Signs, click to edit/add: Last Vital Signs Temp 98.0 F 01/05/25 11:05 Pulse 74 01/05/25 12:00 Resp 18 01/05/25 11:05 BP 113/70 01/05/25 11:05 Pulse Ox 92 L 01/05/25 11:05 O2 Del Method Nasal Cannula 01/05/25 11:05 O2 Flow Rate 2 01/05/25 11:05 Progress Note: Objective Labs Labs: Short CBC 01/05/25 Range/Units 06:04 WBC 7.8 (4.0-11.0) 10^3/uL Hgb 13.0 L (14.0-18.0) g/dL Hct 42.0 (42.0-54.0) % Plt Count 153 (150-450) 10^3/uL BMP 01/05/25 06:04 Sodium 142 Potassium 3.2 L Chloride 96 L Carbon Dioxide 42.4 H BUN 27.0 H Creatinine 1.04 Glucose 82 Calcium 8.9 Progress Note: A&P Assessment and Plan (1) Acute systolic (congestive) heart failure: (2) Acute respiratory failure with hypoxia: (3) Diabetes: Qualifiers: Diabetes mellitus type: type 2 Diabetes mellitus superintendent container terminal insulin use: without jail use Diabetes mellitus complication status: with hyperglycemia Qualified Code(s): E11.65 - Type 2 diabetes mellitus with hyperglycemia (4) Obesity: Qualifiers: Obesity type: due to excess calories Obesity classification: adult class 3 (BMI >= 40) Serious obesity comorbidity presence: with serious comorbidity Body mass index: BMI 70 or greater Qualified Code(s): E66.813 - Obesity, class 3; Z68.45 - Body mass index [BMI] 70 or greater, adult (5) Sleep apnea: Qualifiers: Sleep apnea type: obstructive Qualified Code(s): G47.33 - Obstructive sleep apnea (adult) (pediatric) (6) Obesity hypoventilation syndrome: (7) Hypokalemia: Plan 1) Acute systolic congestive heart failure. - Previously he likely had chronic diastolic congestive heart failure. - Echocardiogram demonstrates that his left-ventricular ejection fraction is decreased dramatically: Down from 65% to 35 to 40%. - Cardiology recommended GDMT: Coreg, ARB, SGLT2, and office follow-up. In the long run they could consider doing an ARNI. He is not a candidate for an ARNI now in the face of strong IV diuresis with Lasix. Uncertain if the patient can get a cardiac catheterization based on the limits of what weight cardiac catheterization tables can accommodate. 2) Acute respiratory failure with hypoxia: Assessment and Plan: ? Continue some nasal cannula oxygen as needed, titrate downward as able to ? Given alkalosis will switch from IV Lasix to Diamox. ? His kidneys are tolerating the diuresis well ? He is overall net -6.4 L as of this morning ? Continue with Aldactone therapy, but increasing from 25 mg daily on 01/05 to 50 mg daily on 01/06. ? Echocardiogram performed 01/04 shows decreased EF to 35 to 40% which is markedly lower than his prior echo just 3 weeks ago showing 65% EF. ? Cardiology on consult. On conversation with the patient on 01/05 he does NOT seem to remember anything about the [employer] consultant from just the day before. ? Unfortunately he is not able to afford SGLT2 inhibitors and he likely does not have the excess blood pressure to be able to tolerate this medication the time being. 3) Acute bacterial bronchitis. He is currently on ceftriaxone azithromycin, switching to oral zithromax and Cefdinir on 01/05. (3) Diabetes: Assessment and Plan: ? His A1c is 7.8, despite insulin therapy he has been hyperglycemic this admission ? Continue with caloric restriction diet ? Increase insulin therapy, glargine 45 units nightly and aspart 15 units ACHS continue assigning scale Qualifiers: Diabetes mellitus type: type 2 Diabetes mellitus superintendent container terminal insulin use: without jail use Diabetes mellitus complication status: with hyperglycemia Qualified Code(s): E11.65 - Type 2 diabetes mellitus with hyperglycemia (4) Obesity: Qualifiers: Obesity type: due to excess calories Obesity classification: adult class 3 (BMI >= 40) Serious obesity comorbidity presence: with serious comorbidity Body mass index: BMI 70 or greater Qualified Code(s): E66.813 - Obesity, class 3; Z68.45 - Body mass index [BMI] 70 or greater, adult (5) Sleep apnea: Assessment and Plan: Patient is noncompliant with recommendations for CPAP at home, we have continued to discuss with him on daily basis Qualifiers: Sleep apnea type: obstructive Qualified Code(s): G47.33 - Obstructive sleep apnea (adult) (pediatric) (6) Lactic acidosis: Assessment and Plan: Secondary to fluid congestion, present on admission in the ER, now resolved Plan ? Regular diet with a caloric restriction for diabetes, free water restriction of 1500 ml, and lowest possible sodium diet. ? Full code
[2025-01-05] MEDS: ACETAZOLAMIDE 250 MG TABLET 500 MG PO (21:22)
[2025-01-05] MEDS: CEFDINIR 300 MG CAPSULE PO (21:22)
[2025-01-05] MEDS: ATORVASTATIN CALCIUM 40 MG TABLET PO (21:23)
[2025-01-05] MEDS: INSULIN GLARGINE 300 UNIT/3 ML INSULN.PEN 45 UNIT SQ (21:25)
[2025-01-06] VITALS (21 sets, daily range): BP systolic 98–147; BP diastolic 62–73; PULSE 68–89; TEMP 36.5–36.9; O2SAT 91–96
[2025-01-06] MEDS: HEPARIN SODIUM (PORCINE) 5,000 UNIT/ML VIAL 5000 UNIT SUBQ ×3 (06:07→21:17)
[2025-01-06] MEDS: FUROSEMIDE 40 MG/4 ML VIAL IVP ×2 (08:55→21:08)
[2025-01-06] MEDS: AZITHROMYCIN 250 MG TABLET 500 MG PO (08:55)
[2025-01-06] MEDS: ASPIRIN 81 MG TAB.CHEW PO (08:56)
[2025-01-06] MEDS: MAGNESIUM OXIDE 400 MG TABLET PO (08:56)
[2025-01-06] MEDS: CARVEDILOL 6.25 MG TABLET PO ×2 (08:56→21:08)
[2025-01-06] MEDS: SPIRONOLACTONE 25 MG TABLET 50 MG PO (08:56)
[2025-01-06] MEDS: CEFDINIR 300 MG CAPSULE PO ×2 (08:56→21:08)
[2025-01-06] MEDS: ACETAZOLAMIDE 250 MG TABLET 500 MG PO ×2 (08:56→21:08)
[2025-01-06] MEDS: CETIRIZINE HCL 10 MG TABLET PO (08:56)
[2025-01-06] MEDS: INSULIN ASPART 300 UNIT/3 ML PEN SUBQ ×4 (08:57→21:09)
[2025-01-06] MEDS: INSULIN ASPART 300 UNIT/3 ML PEN 15 UNIT SUBQ ×4 (08:58→21:10)
[2025-01-06 10:04] LABS: Anion Gap 6.8; Blood Urea Nitrogen 35.0 mg/dL (7.0-18.0); Calcium 9.6 mg/dL (8.5-10.1); Carbon Dioxide 43.0 mmol/L (21.0-32.0); Chloride 92 mmol/L (98-107); Estimated GFR (African America >60 (>=60 mL/min/1.73m^2); Estimated GFR (Non-African Ame 58 (>=60 mL/min/1.73m^2); Glucose 163 mg/dL (74-106); Magnesium 2.3 mg/dL (1.8-2.4); Potassium 3.8 mmol/L (3.5-5.1); Sodium 138 mmol/L (136-145)
--- NOTE | 2025-01-06 11:16 | P.PN_ITS ---
Progress Note: Subjective Subjective Interval history: When I am making the rounds this morning at 1030 the patient is once again sleeping in bed. He is lying flat on his side. He is still on supplemental oxygen by nasal cannula. He denies chest pain or pressure. He denies sensation of dyspnea. He does poi nt out he has not really tried moving around much without the supplemental oxygen here during this hospital stay. His appetite has been good. No nausea or vomiting. No diarrhea or constipation. No dysuria. He repeatedly looks like he is going to fall asleep during my bedside visit with him. He explains that he did not sleep at nighttime. It seems like he has the same sleep pattern at home: He will stay awake most of the night and then catnap during the daytime. When asking questions about this it seems like he worked the second shift at the [employer] but never had to wear midnights. I discussed with the patient that tomorrow on Tuesday would likely be the day that we can see if he is well enough to go home. Unfortunately I think that he will probably have to go home with supplemental oxygen. He has been hospitalized a few times over the last year and was able to get off oxygen at the end of every hospital stay but this time with reduced left ventricular ejection fraction I do not think that will happen for him tomorrow. I stressed with the patient that he does need to work on treating his obstructive sleep apnea. His BMI is 68. He clearly has obstructive sleep apnea pattern breathing. He probably choirs for obesity hypoventilation syndrome with alveolar hypoventilation and overlap syndrome. I explained that without the sleep apnea mask his lower extremity edema will not improve and that his diabetes will not improve and he will find it of very impossible to lose weight. I did try to connect with the patient on a personal level. The patient did indicate that he would think about it. On lab work today his potassium is improved from 3.2 yesterday up to 3.8. His creatinine has gently trended up the last few days from 0.93 up to 1.04 and then up to 1.27 today. After stopping the IV Lasix and switching him to Diamox yesterday his bicarb went up a little bit from 42.4 up to 43 today. Exam Narrative Exam Narrative: General: Once again lying on his left side flat in bed with the television on in the laptop on but he is sleeping through all of this. Pulmonary: His lungs have really cleared up a little bit each day. No longer expectorating any mucus. Lower extremities: Still with +1 pitting edema throughout his lower extremities but this is generally improving as well. Cardiac: Very distant to auscultation but I hear no murmurs to auscultation and his heart rate is regular. GI: Very obese and protuberant. Soft. Normal bowel sounds to auscultation. Constitutional Vital Signs, click to edit/add: Last Vital Signs Temp 97.7 F 01/06/25 07:46 Pulse 74 01/06/25 09:52 Resp 18 01/06/25 07:46 BP 114/64 01/06/25 07:46 Pulse Ox 93 L 01/06/25 07:46 O2 Del Method Nasal Cannula 01/06/25 07:46 O2 Flow Rate 2 01/06/25 07:46 Progress Note: Objective Labs Labs: [facility] 01/06/25 09:31 Sodium 138 Potassium 3.8 Chloride 92 L Carbon Dioxide 43.0 H BUN 35.0 H Creatinine 1.27 Glucose 163 H Calcium 9.6 Progress Note: A&P Assessment and Plan (1) Acute systolic (congestive) heart failure: (2) Acute respiratory failure with hypoxia: (3) Diabetes: Qualifiers: Diabetes mellitus type: type 2 Diabetes mellitus [facility] insulin use: without [facility] use Diabetes mellitus complication status: with hyperglycemia Qualified Code(s): E11.65 - Type 2 diabetes mellitus with hyperglycemia (4) Obesity: Qualifiers: Obesity type: due to excess calories Obesity classification: adult class 3 (BMI >= 40) Serious obesity comorbidity presence: with serious comorbidity Body mass index: BMI 70 or greater Qualified Code(s): E66.813 - Obesity, class 3; Z68.45 - Body mass index [BMI] 70 or greater, adult (5) Sleep apnea: Qualifiers: Sleep apnea type: obstructive Qualified Code(s): G47.33 - Obstructive sleep apnea (adult) (pediatric) (6) Obesity hypoventilation syndrome: Plan 1) Acute systolic congestive heart failure. - Previously he likely had chronic diastolic congestive heart failure. - Echocardiogram demonstrates that his left-ventricular ejection fraction is decreased dramatically: Down from 65% to 35 to 40%. - Cardiology recommended GDMT: Coreg, ARB, SGLT2, and office follow-up. In the long run they could consider doing an ARNI. He is not a candidate for an ARNI now in the face of strong IV diuresis with Lasix. Uncertain if the patient can get a cardiac catheterization based on the limits of what weight cardiac catheterization tables can accommodate. 2) Acute respiratory failure with hypoxia: Assessment and Plan: ? Continue some nasal cannula oxygen as needed, titrate downward as able to ? Given alkalosis we did switch from IV Lasix to oral Diamox on 01/05. ? His kidneys are tolerating the diuresis well ? His weight has improved from 198.8 kilograms on 12/28/2024 down to 191.1 kg today. ? Continue with Aldactone therapy, but increasing from 25 mg daily on 01/05 to 50 mg daily on 01/06. ? Echocardiogram performed 01/04 shows decreased EF to 35 to 40% which is markedly lower than his prior echo just 3 weeks ago showing 65% EF. ? Cardiology on consult. On conversation with the patient on 01/05 the patient does NOT seem to remember anything about the supervisor home energy consultant (? was there a discussion?) from just the day before. ? Unfortunately he is not able to afford SGLT2 inhibitors and he likely does not have the excess blood pressure to be able to tolerate this medication the time being. 3) Acute bacterial bronchitis. He has been treated with IV ceftriaxone + azithromycin, which was switched to oral zithromax and Cefdinir on 01/05. His cough with productive sputum is totally gone at this point. (3) Diabetes: Assessment and Plan: ? His A1c is 7.8, despite insulin therapy he has been hyperglycemic this admission ? Continue with caloric restriction diet ? Increased insulin therapy, glargine 45 units nightly and aspart 15 units ACHS continue assigning scale Qualifiers: Diabetes mellitus type: type 2 Diabetes mellitus systems analyst insulin use: without systems analyst use Diabetes mellitus complication status: with hyperglycemia Qualified Code(s): E11.65 - Type 2 diabetes mellitus with hyperglycemia (4) Obesity: Qualifiers: Obesity type: due to excess calories Obesity classification: adult class 3 (BMI >= 40) Serious obesity comorbidity presence: with serious comorbidity Body mass index: BMI 70 or greater Qualified Code(s): E66.813 - Obesity, class 3; Z68.45 - Body mass index [BMI] 70 or greater, adult (5) Sleep apnea: Assessment and Plan: Patient is noncompliant with recommendations for CPAP at home, we have continued to discuss with him on daily basis Qualifiers: Sleep apnea type: obstructive Qualified Code(s): G47.33 - Obstructive sleep apnea (adult) (pediatric) (6) Lactic acidosis: Assessment and Plan: Secondary to fluid congestion, present on admission in the ER, now resolved Plan ? Regular diet with a caloric restriction for diabetes, free water restriction of 1500 ml, and lowest possible sodium diet. ? Full code
[2025-01-06] MEDS: ATORVASTATIN CALCIUM 40 MG TABLET PO (21:08)
[2025-01-06] MEDS: INSULIN GLARGINE 300 UNIT/3 ML INSULN.PEN 45 UNIT SQ (21:10)
[2025-01-07] VITALS (12 sets, daily range): BP systolic 96–122; BP diastolic 56–72; PULSE 73–102; TEMP 36.6–37.2; O2SAT 84–95
[2025-01-07] MEDS: ACETAMINOPHEN 325 MG TABLET 650 MG PO (01:38)
[2025-01-07] MEDS: HEPARIN SODIUM (PORCINE) 5,000 UNIT/ML VIAL 5000 UNIT SUBQ (05:19)
[2025-01-07 06:53] LABS: Anion Gap 10.3; Blood Urea Nitrogen 47.0 mg/dL (7.0-18.0); Calcium 9.1 mg/dL (8.5-10.1); Carbon Dioxide 37.9 mmol/L (21.0-32.0); Chloride 93 mmol/L (98-107); Estimated GFR (African America 58 (>=60 mL/min/1.73m^2); Estimated GFR (Non-African Ame 48 (>=60 mL/min/1.73m^2); Glucose 95 mg/dL (74-106); Potassium 3.2 mmol/L (3.5-5.1); Sodium 138 mmol/L (136-145)
[2025-01-07] MEDS: ASPIRIN 81 MG TAB.CHEW PO (08:37)
[2025-01-07] MEDS: FUROSEMIDE 40 MG/4 ML VIAL IVP (08:37)
[2025-01-07] MEDS: CEFDINIR 300 MG CAPSULE PO (08:37)
[2025-01-07] MEDS: SPIRONOLACTONE 25 MG TABLET 50 MG PO (08:37)
[2025-01-07] MEDS: ACETAZOLAMIDE 250 MG TABLET 500 MG PO (08:37)
[2025-01-07] MEDS: MAGNESIUM OXIDE 400 MG TABLET PO (08:37)
[2025-01-07] MEDS: CARVEDILOL 6.25 MG TABLET PO (08:38)
[2025-01-07] MEDS: CETIRIZINE HCL 10 MG TABLET PO (08:38)
[2025-01-07] MEDS: AZITHROMYCIN 250 MG TABLET 500 MG PO (08:38)
--- NOTE | 2025-01-07 08:40 | CM.NOTE ---
Rounds made with Dr. Castillo, pt will discharge to home today. Pt will f/u with Dr. Breen per request. Dr. Castillo also spoke with pt regarding outpatient sleep study. Pt is in agreement. Pt will also have walk test prior to discharge for any home oxygen needs. SS spoke with pt regarding HH services, see note.
--- NOTE | 2025-01-07 10:00 | CM.NOTE ---
Case Management in to discuss discharge planning. Updated pt that order has been sent for sleep study. Explained to pt they would need to precert sleep study and then sleep lab will reach out to give him appointment. Pt verbalizes understanding, pt also understanding importance of f/u with Dr. Breen.
--- NOTE | 2025-01-07 11:14 | PM.DS1 ---
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 insulin use: without penitentiary use Diabetes mellitus complication status: with hyperglycemia Qualified Code(s): E11.65 - Type 2 diabetes mellitus with hyperglycemia (3) Obesity: Qualifiers: Obesity type: due to excess calories Obesity classification: adult class 3 (BMI >= 40) Serious obesity comorbidity presence: with serious comorbidity Body mass index: BMI 70 or greater Qualified Code(s): E66.813 - Obesity, class 3; Z68.45 - Body mass index [BMI] 70 or greater, adult (4) Sleep apnea: Qualifiers: Sleep apnea type: obstructive Qualified Code(s): G47.33 - Obstructive sleep apnea (adult) (pediatric) (5) Obesity hypoventilation syndrome: (6) Acute diastolic heart failure: (7) Pulmonary hypertension: (8) Hypoxic respiratory failure: Plan As listed above and others that are not listed DS: Summary Hospital Course Hospital Course: Mr. Garcia is a 59-year-old gentleman who came in with shortness of breath. He was diagnosed having hypoxic respiratory failure which is multifactorial secondary to Acute on chronic diastolic heart failure. BNP is elevated. Repeat echocardiogram showed preserved ejection fraction Moderate pulm hypertension noted on previous echocardiogram. Restrictive lung disease secondary to significant obesity Suspect underlying obstructive lung disease, not confirmed yet. Patient will require PFTs in the outpatient setting. Suspect underlying CAD. Sleep apnea. Patient had CPAP machine before but adamantly refused to wear. Patient was seen by hospitalist and ux engineer. Patient was started on intravenous diuretics. Patient had 16 L negative balance since admission. This is my first day taking care of this patient His blood pressure is on the low side. Patient developed mild acute kidney failure. Baseline creatinine is hovering around 1.4. Today is 1.5 I suspect that the patient reached a euvolemic state Patient is feeling much better and requesting to be discharged home. Patient did qualify for oxygen. Will arrange for home oxygen. After long conversation with the patient, now he is in agreement to proceed with under his sleep study and hopefully we will arrange for him to have another CPAP machine after sleep study is completed. Patient will need to follow-up with cardiology. The ux engineer recommended CAD evaluation. May require stress test or stress echo. Continue aspirin, beta-bishop and statin Continue heart failure medication at this time in the form of beta-bishop, ANDREWS inhibitor, Lasix and spironolactone. Consider initiation of SGLT 1 in the outpatient setting by cardiology or PCP Consider increasing his diuretics in the outpatient setting if the patient starts building up fluid overload. For now given the euvolemic state and the development of a mild RAMON with not increase his diuretics further other than increasing his spironolactone up to 25 mg twice daily I would recommend a BMP to be done at Dr. Lopez office in 1 week. That is to monitor electrolytes and kidney function Arrange for patient to follow-up with the pulmonary team. Diabetes A1c 7.5. Continue metformin. GFR is in the 40s. Added Amaryl. Obesity Diet, exercise and lifestyle modification. Noncompliance. Counseled indication for patient to be compliant with the medication and follow-up Chronic medical conditions not listed above, incidental findings seen on labs and imaging. These would need to be addressed. Could be addressed when time and condition are appropriate. Could be addressed in the outpatient setting by PCP collaboration with other needed outpatient providers. Patient has multiple complex medical issues as listed above and others that are not listed. All appear to be stable. I do not have any clear or strong clinical justification to extend inpatient hospitalization. Patient is at risk of having future similar decompensation if his care is not ideal in the outpatient setting. Patient however will require close and frequent monitoring as well as additional work-up, investigation and therapeutic intervention that could take place from this point on post discharge. That is to prevent relapse, decompensation, rehospitalization and other medical implications. Patient will also require fine and frequent adjustment of his cardiovascular and diabetes medications to keep him in a euvolemic state to be handled in the outpatient setting by PCP in collaboration with cardiology I instructed patient to ask her primary care doctor to obtain [facility] record entirely to address abnormalities seen on labs and imaging that I have and have not addressed during this hospitalization, follow-up on pending blood work, imaging and pathology is if available and to follow-up on needed medical care in the outpatient setting. Time Spent with Patient Time attestation: Total time spent providing and/or coordinating discharge services: Exam Constitutional Vital Signs, click to edit/add: Last Vital Signs Temp 97.8 F 01/07/25 07:05 Pulse 74 01/07/25 10:03 Resp 18 01/07/25 07:05 BP 107/71 01/07/25 07:05 Pulse Ox 95 01/07/25 07:05 O2 Del Method Nasal Cannula 01/07/25 07:05 O2 Flow Rate 2 01/07/25 07:05 DS: Data Data Completed and Pending Labs on day of discharge: Labs from last 24 hours 01/07/25 01/07/25 01/06/25 07:32 05:34 19:54 Sodium 138 Potassium 3.2 L Chloride 93 L Carbon Dioxide 37.9 H Anion Gap 10.3 BUN 47.0 H Creatinine 1.50 H Est GFR ( Amer) 58 L Est GFR (Non-Af Amer) 48 L BUN/Creatinine Ratio 31.3 Glucose 95 Calcium 9.1 POC Glucose 108 H 241 H 01/06/25 01/06/25 16:41 11:45 Sodium Potassium Chloride Carbon Dioxide Anion Gap BUN Creatinine Est GFR ( Amer) Est GFR (Non-Af Amer) BUN/Creatinine Ratio Glucose Calcium POC Glucose 197 H 177 H Discharge Plan Discharge Disposition: Home Health Service Condition: Fair Discharge Medications: New glimepiride 1 mg tablet 1 mg PO DAILY Qty: 30 2RF Continued atorvastatin 40 mg Tablet 40 mg PO QHS Qty: 60 11RF carvedilol 12.5 mg Tablet 12.5 mg PO BID Qty: 60 11RF aspirin 81 mg Tablet,Chewable 81 mg PO QD Qty: 30 11RF losartan 50 mg Tablet 50 mg PO DAILY metformin 1,000 mg tablet 1,000 mg PO BID albuterol sulfate 90 mcg/actuation HFA aerosol inhaler 2 inh inhalation Q4H PRN (Reason: shortness of breath or wheezing) Qty: 6.7 0RF cetirizine 10 mg tablet 10 mg PO QAM furosemide 40 mg tablet 40 mg PO DAILY magnesium oxide 400 mg (241.3 mg magnesium) Tablet 250 mg PO DAILY Changed spironolactone 25 mg Tablet 25 mg PO BID Qty: 60 2RF Print Language: Jamaican Activity Restrictions/Additional Instructions: I may not have addressed or treated all of your medical illnesses or the abnormal blood work or imaging studies during this hospitalization. Please ask your primary care provider to obtain [facility] records entirely to follow up on all of the abnormal physical, laboratory, and imaging findings that I have not addressed. I would recommend that you have a blood test called a BMP at Dr. Breen's office in 7 days Please follow-up with the sleep study. You may qualify for CPAP or inspire procedure. Please follow-up with the heart doctor, please use oxygen. Check your blood sugar 3 times a day before meals. Document these numbers on a blood glucose log and bring them with you to your follow-up appointment with your primary care doctor. Communicate with your primary care doctor or operating room specialist if your blood sugar is under 100 or above 300 on 2 consecutive checks. Communicate with your primary care doctor or operating room specialist if you have any questions about your diabetes medications. Signs of a low blood sugar include sweating, racing heart, dizziness and/or weakness. Check your blood sugar if you have any of the symptoms. Please return back to the emergency room or seek medical attention if your symptoms worsen or return. Discharging you from [facility] does not mean that your medical care ends here and now. You may still need additional monitoring, work up, investigation, and treatment plan to be handled from this point on by out patient providers including your primary care provider and specialists. For any medication question, please contact your retail pharmacist or your primary care provider. Thank you. Forms: Portal Instructions Follow Up Appointments: [facility] will be calling to schedule a sleep study. [phone] Tue. 01/11 @ 10:15am with Dr. Breen [phone] 01/17 @ 2:40pm with [facility] at [facility] [phone]
--- NOTE | 2025-01-07 11:33 | SWNOTE1 ---
ROLAND did stop in and speak with pt since pt does qualify for home oxygen at this time. Nurse completed walk test. ROLAND asked pt which DME company he would like to use. Pt did not have preference. ROLAND provided pt with list of companies. Pt would like to try [facility] in [place] first, then [facility]. ROLAND to send referral for home oxygen to [facility]. ROLAND faxed script, home O2 walk test, dc summary with face to face and face sheet to [facility].
--- NOTE | 2025-01-07 11:46 | SWNOTE1 ---
ROLAND also asked pt about home health services and highly encouraged pt to at least have a HH nurse come in since he is new to home oxygen. Pt voiced he is playing it by ear and that he will call the nurse if needed. ROLAND again reminded pt that if he calls the HH nurse that is saved in his phone, they will need to go through his PCP to get an order. Pt voiced understanding and does not want HH set up at this time.
[2025-01-07] MEDS: POTASSIUM CHLORIDE 10 MEQ ER TABLET 30 MEQ PO (11:52)
[2025-01-07] MEDS: INSULIN ASPART 300 UNIT/3 ML PEN 15 UNIT SUBQ (11:53)
[2025-01-07] MEDS: INSULIN ASPART 300 UNIT/3 ML PEN SUBQ (11:53)
--- NOTE | 2025-01-07 12:14 | CM.NOTE ---
Pt given outpatient lab requisition for f/u lab work to be drawn prior to f/u appointment. Pt verbalizes understanding. Discussed with pt need to f/u with switch operator. Duncan briseno sent to Dr. Breen for referral.
--- NOTE | 2025-01-07 13:52 | SWNOTE1 ---
ROLAND called [facility] to check on pt's oxygen, no answer.
--- NOTE | 2025-01-07 14:11 | SWNOTE1 ---
ROLAND received a call from Yari at [facility] and pt is set to go. Pt will discharge on home oxygen at 2 liters continuous. ROLAND put [place] phone number is discharge paperwork. ROLAND took patient a tank and let him know to call [facility] once he arrives home. ROLAND updated nurse as well.
--- NOTE | 2025-01-07 15:51 | CM.NOTE ---
Dr. Breen reached back out via [employer] txt and will address pulmonology f/u and is aware pt will be scheduled for sleep study.
--- NOTE | 2025-01-08 14:42 | CM.DCFOLLOWU ---
1st attempt 01/08/25, no answer
--- NOTE | 2025-01-09 15:22 | CM.DCFOLLOWU ---
2nd attempt 01/09/25, no answer
--- NOTE | 2025-01-10 11:27 | CM.NOTE ---
Informed by Sleep Lab that Mr. Garcia refused to do the Sleep Study.
--- NOTE | 2025-01-10 14:45 | CM.DCFOLLOWU ---
3rd attempt. No answer
== END 2025-01-07 16:07 | disposition home or self-care (01) | DRG 291 ==
LOC: ER 16:20 → MS 17:00
PROVIDERS: Hospitalist; Physician Assistant; Admitting Provider Internal Medicine; Emergency Provider Emergency Medicine; PCP Internal Medicine; Visit Provider Internal Medicine
DX: I13.0 Hypertensive heart and chronic kidney disease with heart failure and stage 1 through stage 4 chronic kidney disease, or unspecified chronic kidney disease (principal); I50.33 Acute on chronic diastolic (congestive) heart failure; J96.01 Acute respiratory failure with hypoxia; E87.20 Acidosis, unspecified; E87.3 Alkalosis; E66.2 Morbid (severe) obesity with alveolar hypoventilation; Z68.44 Body mass index [BMI] 60.0-69.9, adult; Z87.01 Personal history of pneumonia (recurrent); Z79.84 Long term (current) use of oral hypoglycemic drugs; J44.9 Chronic obstructive pulmonary disease, unspecified; Z79.82 Long term (current) use of aspirin; E11.22 Type 2 diabetes mellitus with diabetic chronic kidney disease; N18.30 Chronic kidney disease, stage 3 unspecified; E11.65 Type 2 diabetes mellitus with hyperglycemia; E66.813 Obesity, class 3; Z91.198 Patient's noncompliance with other medical treatment and regimen for other reason; J20.9 Acute bronchitis, unspecified; I27.20 Pulmonary hypertension, unspecified; J98.4 Other disorders of lung; I25.10 Atherosclerotic heart disease of native coronary artery without angina pectoris; Z95.5 Presence of coronary angioplasty implant and graft; Z82.49 Family history of ischemic heart disease and other diseases of the circulatory system
CPT/HCPCS: 36415; 71046; 80048; 80053; 81001; 82800; 82947; 82948; 83036; 83605; 83735; 83880; 84100; 84484; 85025; 85027; 85610; 85730; 87040; 93005; 93306; 94761; 96365; 96375; 99291; J0696; J1644; J1938; J2543; J3475

== ENCOUNTER 2025-01-21 12:53 | Outpatient (OUT) | payer MEDICARE, SELFPAY ==
--- OUTSIDE RECORDS SUMMARY | 2025-01-11 06:15 | XMS_ITS ---
Author Organization [facility] [place] Address [address] [place] [address] Care Team Providers Care Rack Cleaner Name Role Phone Chris Breen Primary Care Provider Allergies Allergen (clinical drug ingredient) Drug/Non Drug Allergy documented on EMR Reaction Allergy Type Onset Date Status topiramate Topamax headaches Drug Allergy Active Reason For Referral Diagnosis 1 Reduced ejection fra ction concurrent with and due to acute heart failure (I50.9) Referral Organization [facility] Medicine Referring Provider First Name Chris Referring Provider Last Name Jamshid Referring Provider Speciality Family [facility] icine Referred Provider [facility] Cardiology, [facility] Referred Provider Specialty Cardiology Referral Priority Routine REASON FOR VISIT Presents to office as a INFORMATION TECHNOLOGY INTERN for [facility] follow up pneumonia and CHF Medications Medication SIG (Take, Route, Frequency, Duration) Notes Start Date End Date Status metFORMIN HCl 1000 MG 1 tablet with a me al Oral BID for 90 days Active Cetirizine HCl 10 MG 1 tablet Orally Onc e a day for 30 days 01/11/2025 Active Spironolactone 25 MG TAKE 1 TABLET BY [facility] DAILY Oral for 90 Days Active Magnesium 250 MG 1 tablet with a meal Orally Once a day Active HYDROcodone-Acetaminophen 5-325 MG 1 tablet as needed Orally every 6 hrs for 7 days 01/11/2025 Active Losartan Potassium 50 MG 1 tablet Orally Once a day for 90 days Active Glimepiride 1 MG 1 tablet with breakf ast or the first main meal of the day Orally Once a day Active Furosemide 40 MG 1 tablet Orally Once a day for 90 days Active Cetirizine HCl 10 MG TAKE 1 TABLET BY [facility] IN THE MORNING Oral for 30 Days Active Carvedilol 12.5 MG Take 1 tablet Oral T wice a day for 90 days Active Atorvastatin Calcium 40 MG 1 tablet Oral ly Once a day for 90 days Active Aspirin Low Dose 81 MG CHEW 1 TABLET BY MOUTH and swallow IN THE MORNING Oral for 90 Days Active Social History Tobacco Use: Social History Observation Description Date Details (start date - stop date) Never Smoker NA - NA Tobacco Control (Standard) Question Answer Notes Tobacco use: Nonsmoker AUDIT-C (Standard) Question Answer Notes Did you have a drink containing alcohol in the p ast year? No Points 0 Interpretation Negative Problems Problem Type SNOMED Code ICD Code Onset Dates Problem Status W/U Status Risk Notes Problem Knee osteoarthri tis (M17.9) Active confirmed Vital Signs Weight 425.2 lbs 01/11/2025 Height 66 in 01/11/2025 Blood pressure systolic 130 mm Hg 01/12/20 25 Blood pressure diastolic 62 mm Hg 025 BMI 68.62 kg/m2 01/11/2025 Encounters Encounter Location Date Provider Diagnosis [facility] [address] [place] [address] 01/11/2025 Chris Breen Reduced ejection fra ction concurrent with and due to acute heart failure I50.9 ; Diabetes mellitus with hyperglycemia E11.65 ; COPD (chronic obstructive pulmonary disease) J44.9 ; Chronic kidney disease, stage III (moderate) N18.30 ; Acute worsening of stage 3 chronic kidney disease N18.30 and Knee osteoarthritis M17.9 Assessments Encounter Date Diagnosis (ICD Code) Assessment Notes Treatment Notes Treatment Clinical Notes Section Notes 01/11/2025 Reduced ejection fraction concurrent with and due to acute heart failure (ICD-10 - I50.9) 01/11/2025 Diabetes mellitus with hyperglycemia (ICD-10 - E11.65) 01/11/2025 COPD (chronic obstructive pulmonary disease) (ICD-10 - J44.9) 01/11/2025 Chronic kidney disease, stage III (moderate) (ICD-10 - N18.30) 01/11/2025 Acute worsening of stage 3 chronic kidney disease (ICD-10 - N18.30) 01/11/2025 Knee osteoarthritis (ICD-10 - M17.9) Plan Of Treatment Medication Medication Name Sig Start Date Stop Date Notes Cetirizine HCl 10 MG 1 tablet Orally Onc e a day for 30 days 01/11/2025 HYDROcodone-Acetaminophen 5- 325 MG 1 tablet as needed Orally every 6 hrs for 7 days 01/11/2025 Pending Test Test Name Order Date BNP 01/11/2025 GLYCOHEMOGLOBIN A1C 01/11/2025 PROF 14(COMP METB) 01/11/2025 THYROID PANEL (T4/TSH/FREE T3) 5 Referrals Referral Date Details 01/11/2025 01/11/2025, [facility] Cardiology Progress Notes * Cristobal GARCIA ADOB: 5 (59 yo M)Acc No.[id number]:01/11/2025 New Patient Patient: Cristobal JEWELL Provider: Rosita Breen ([facility])MD :1965 A ge:59 Y S ex:Male Date:01/11/2025 Address:[address] [place], [place] [id number] Check In:10:22 AM ESTCheck O ut:11:34 AM EST Subjective: * Chief Complaints: * 1 . Presents to office as a INFORMATION TECHNOLOGY INTERN for [facility] follow up pneumonia and CHF. * HPI: G eneral: admitted for CHF needs to see cardiology DM- needs scerip for meter. D epression Screening: PHQ-2 (2015 Edition) L ittle interest or pleasure in doing things??Not at all F eeling down, depressed, or hopeless? N ot at all T otal Score 0 * ROS: E ENT: hearing changes d enies. v isual changes d enies.?non-healing mouth sores d enies. s wollen glands or neck lumps d enies. h oarseness d enies. s ore throat d enies. d ifficulty swallowing d enies. n ose bleeds d enies. n lorenza congestion d enies. e ar ache d enies. e ar discharge?denies. r inging in ears d enies. l ight sensitivity d enies. e ye pain d enies. b lurring d enies. e ye irritation d enies. d ouble vision d enies.?vision loss d enies. G eneral/Constitutional: Sweats: D enies. F atigue d enies. S leep problems d enies. A norexia d enies. M alaise d enies. W eight loss d enies.?Fatigue or Weakness d enies. F ever or Chills d enies. C ardiovascular: Shortness of Breath w/lying flat d enies. L ightheadedness/dizziness d enies. C hest tightness/ heavy pressure d enies. S welling of legs, ankles, or feet d enies. W aking up with shortness of breath d enies. C hest pain denies. P alpitations d enies. W eight gain d enies. R espiratory: Chronic or frequent cough d enies. C oughing up blood?denies. D ifficulty breathing d enies. P roductive cough d enies. S noring?denies. S hortness of breath that awakens from sleep (PND) d enies. C hest pain d enies. S putum production d enies. W heezing d enies. M usculoskeletal: Joint pain d enies. J oint Fluid d enies. B ack pain d enies. K nee pain d enies. N chloe pain d enies. J oint Stiffness d enies. M uscle cramps d enies. W eakness of muscles d enies. A rthritis d enies. M uscle aches d enies. P ain in shoulder(s) d enies. S wollen joints d enies. * Active Problem List J81.1 Pulmonary edema Modified On:01/09/2024 Status:confirmed I10 BP (high blood press ure) Modified On:01/09/2024 Status:confirmed E44.0 Moderate malnutritio n Modified On:01/09/2024 Status:confirmed E11.9 Diabetes mellitus Modified On:01/09/2024 Status:confirmed D63.1 Anemia of renal dise ase Modified On:01/09/2024 Status:confirmed I50.41 Acute combined systo lic (congestive) and diastolic (congestive) heart failure Modified On:01/12/2024U Status:confirmed I50.9 Reduced ejection fra ction concurrent with and due to acute heart failure Modified On:01/12/2024 Status:confirmed I10 Hypertension Modified On:01/12/2024 Status:confirmed N18.30 Chronic kidney disea se, stage III (moderate) Modified On:01/12/2024 Status:confirmed E11.65 Diabetes mellitus wi th hyperglycemia Modified On:02/08/2024 Status:confirmed I50.33 Acute on chronic edwar stolic (congestive) heart failure Modified On:02/08/2024 Status:confirmed N18.30 Acute worsening of s tage 3 chronic kidney disease Modified On:02/08/2024 Status:confirmed J44.9 COPD (chronic obstru ctive pulmonary disease) Modified On:02/08/2024 Status:confirmed D50.9 Anemia, iron deficie ncy Modified On:02/08/2024 Status:confirmed M17.9 Knee osteoarthritis Modified On:01/11/2025 Status:confirmed * Medical History: * Surgical History: a ppendectomy . * Hospitalization/Major Diagno stic Procedure: C HF 2024, Pneumonia 2024. * Family History: F ather: , diagnosed with Diabetes mellitus without mention of complication, type II or unspecified type, not stated as uncontrolled. M other: , diagnosed with Unspecified heart disease. B rother(s): alive. S ister(s): . 2 brother(s) , 1 sister(s) . .? * Social History: T obacco Use: T obacco Control (Standard) T obacco use: N onsmoker D rug/Alcohol: A GENARO-C (Standard) D id you have a drink containing alcohol in the past year? N o P oints 0 I nterpretation N egative * Medications: T aking Aspirin Low Dose(Aspirin) 81 MG Tablet Chewable CHEW 1 TABLET BY MOUTH and swallow IN THE MORNING Oral , Taking Atorvastatin Calcium 40 MG Tablet 1 tablet Orally Once a day , Taking Carvedilol 12.5 MG Tablet Take 1 tablet Oral Twice a day , Taking Cetirizine HCl 10 MG Tablet TAKE 1 TABLET BY MOUTH IN THE MORNING Oral , Taking Furosemide 40 MG Tablet 1 tablet Orally Once a day , Taking Glimepiride 1 MG Tablet 1 tablet with breakfast or the first main meal of the day Orally Once a day , Taking Losartan Potassium 50 MG Tablet 1 tablet Orally Once a day , Taking Magnesium 250 MG Tablet 1 tablet with a meal Orally Once a day , Taking metFORMIN HCl 1000 MG Tablet 1 tablet with a meal Oral BID , Taking Spironolactone 25 MG Tablet TAKE 1 TABLET BY MOUTH DAILY Oral , Discontinued Baclofen 5 MG Tablet Take 1 tablet by mouth 2 (two) times a day as needed (back spasm). Oral , Discontinued Fexofenadine HCl 180 MG Tablet TAKE 1 TABLET BY MOUTH EVERY DAY NEEDED Oral , Medication List reviewed and reconciled with the patient * Allergies: T opamax: headaches. Objective: * Vitals: W t:425.2lbs, Ht: 66 in, BP:130/62mm Hg, BMI:68.62Index, Ht-cm: 167.64 cm, Wt-k.87 kg. * Examination: P hysical Exam: GENERAL: w ell developed, well nourished, in no acute distress. HEAD: n ormocephalic/atraumatic. EYES: p upils equal, round and reactive to light, conjunctivae and sclerae normal. EARS: n o deformity or lesion of external ear, canals and TM appear normal bilaterally, TM's intact, not inflamed with normal light reflex, hearing grossly normal to conversational speech. NOSE: n o deformity, discharge, inflammation, or lesions.? MOUTH: m ucous membranes moist, normal oropharynx and posterior pharynx without lesions or exudates, tongue normal, dentition normal. NECK: n chloe supple, no masses or palpable cervical nodes, trachea midline, thyroid without nodules, masses, tenderness, or enlargement. CHEST: n o chest wall deformity, no chest wall tenderness.? LUNGS: n ormal respiratory effort and clear to auscultation, no wheezes, rales, or rhonchi, good air exchange. CARDIO: r egular rate and rhythm, normal S1 and S2, nor murmur, rub, or gallop. PULSES: n ormal capillary refill. ABDOMEN: s oft, non-distended, non-tender, no masses. MUSCULOSKELETAL: n o deformity or scoliosis noted, normal range of motion, joints normal, no erythema, edema, effusion, or ecchymosis. EXTREMITY: n o clubbing, cyanosis, edema, or deformity with normal ROM in both upper and lower bilateral extremities. NEUROLOGIC: g rossly normal. SKIN: n o rashes, ulcerations, or suspicious lesions. LYMPH NODES: n o cervical adenopathy, nodes normal. MENTAL STATUS: a lert and oriented x3, normal mood and affect. Assessment: * Assessment: 1. R educed ejection fraction concurrent with and due to acute heart failure - I50.9 (Primary)? 2. D iabetes mellitus with hyperglycemia - E11.65 3 . C OPD (chronic obstructive pulmonary disease) - J44.9 4 . C hronic kidney disease, stage III (moderate) - N18.30 5 . K nee osteoarthritis - M17.9 6 .?Acute worsening of stage 3 chronic kidney disease - N18.30 Plan: * Treatment: 2. D iabetes mellitus with hyperglycemia L AB: BNP L AB: GLYCOHEMOGLOBIN A1C L AB: PROF 14(COMP METB) L AB: THYROID PANEL (T4/TSH/FREE T3) 3. C OPD (chronic obstructive pulmonary disease) L AB: BNP L AB: GLYCOHEMOGLOBIN A1C L AB: PROF 14(COMP METB) L AB: THYROID PANEL (T4/TSH/FREE T3) 4. C hronic kidney disease, stage III (moderate) L AB: BNP L AB: GLYCOHEMOGLOBIN A1C L AB: PROF 14(COMP METB) L AB: THYROID PANEL (T4/TSH/FREE T3) 5. K nee osteoarthritis Start HYDROcodone-Acetaminophen Tablet, 5-325 MG, 1 tablet as needed, Orally, every 6 hrs, 7 days, 28 Tablet, Refills 0. 6. A cute worsening of stage 3 chronic kidney disease L AB: BNP L AB: GLYCOHEMOGLOBIN A1C L AB: PROF 14(COMP METB) L AB: THYROID PANEL (T4/TSH/FREE T3) * Preventive Medicine: Screenings/Counseling: B OR ACTION PLAN Above Normal BMI Follow-up D ietary management education, guidance, and counseling See treatment section of progress note for complete details of management plan. * * Sign off status: Completed Visit Status: C HK (Check Out) true * Provider: Rosita Breen ([facility])MD Date: 0 01/11/2025 Generated for Printi ng/Faxing/eTransmitting on: 0 01/21/2025 12:57 PM EDT History and Physical Notes * HPI (History of Present Illness) Category Sub-Category Detail Notes Category Not es General admitted for CHF needs to see cardiology DM- needs scerip for meter Depression Screening PHQ-2 (2015 Edition) Little interest or pleasure in doing things?: Not at all Feeling down, depressed, or hopeless?: N ot at all Total Score: 0 Examination Category Sub-Category Detail Notes Category Not es Physical Exam GENERAL: well developed, well nourished, in no acute distress HEAD: normocephalic/atraum atic EYES: pupils equal, round and reactive to light, conjunctivae and sclerae normal EARS: no deformity or lesi on of external ear, canals and TM appear normal bilaterally, TM's intact, not inflamed with normal light reflex, hearing grossly normal to conversational speech NOSE: no deformity, discha rge, inflammation, or lesions MOUTH: mucous membranes augustin st, normal oropharynx and posterior pharynx without lesions or exudates, tongue normal, dentition normal NECK: neck supple, no mass es or palpable cervical nodes, trachea midline, thyroid without nodules, masses, tenderness, or enlargement CHEST: no chest wall deform ity, no chest wall tenderness LUNGS: normal respiratory e ffort and clear to auscultation, no wheezes, rales, or rhonchi, good air exchange CARDIO: regular rate and rhy thm, normal S1 and S2, nor murmur, rub, or gallop PULSES: normal capillary ref ill ABDOMEN: soft, non-distended, non-tender, no masses RECTAL: MUSCULOSKELETAL: no deformity or scol iosis noted, normal range of motion, joints normal, no erythema, edema, effusion, or ecchymosis EXTREMITY: no clubbing, cyanosi s, edema, or deformity with normal ROM in both upper and lower bilateral extremities NEUROLOGIC: grossly normal SKIN: no rashes, ulceratio ns, or suspicious lesions LYMPH NODES: no cervical adenopat hy, nodes normal MENTAL STATUS: alert and oriented x 3, normal mood and affect Consultation Request Notes Referral Date Referring Provider Referred Provider Not es 01/11/2025 Chris Breen [facility] Cardiology, Specialty Dennis galvan
--- OUTSIDE RECORDS SUMMARY | 2025-01-11 07:24 | XMS_ITS ---
Author Organization The [facility] in [place] Address [address] [place] [address] Care Team Providers Care Printing Manager Name Role Phone Chris Breen Primary Care Provider [phone] REASON FOR VISIT DIABETIC SUPPLIES Medications Medication SIG (Take, Route, Frequency, Duration) Notes Start Date End Date Status Test Strips - as directed Dx: Diab etes Type II Once daily for 90 days 01/11/2025 Active Lancets 30G - Use 1 lancet E11.9 o nce daily for 90 01/11/2025 Active Blood Glucose Monitor System w/Device use device Dx:E11.9 daily to monitor blood glucose level 01/11/2025 Active Encounters Encounter Location Date Provider Diagnosis [facility] [address] [place] [address] 01/11/2025 Chris Breen Plan Of Treatment Medication Medication Name Sig Start Date Stop Date Notes Test Strips - as directed Dx: Diab etes Type II Once daily for 90 days 01/11/2025 Lancets 30G - Use 1 lancet E11.9 o nce daily for 90 01/11/2025 Blood Glucose Monitor System w/Device use device Dx:E11.9 daily to monitor blood glucose level 01/11/2025 Progress Notes * Cristobal GARCIA ADOB: 5 (59 yo M)Acc No.[id number]:01/11/2025 Patient: Cristobal JEWELL :1965 A ge:59 Y S ex:Male Address:[address] [place] [address] [address], [place], [address] * Refills Start Blood Glucose Monitor System Kit, w/Device, Dx:E11.9, 1, use device, daily to monitor blood glucose level, Refills=0 Start Test Strips -, -, 100, as directed Dx: Diabetes Type II Once daily, 90 days, Refills=3 Start Lancets 30G Miscellaneous, -, E11.9, 100, Use 1 lancet, once daily, 90, Refills=3 * true * Date: Generated for Gwendolyn ramsey/Fernanda/Ángel on: 0 01/21/2025 07:40 AM EDT
--- OUTSIDE RECORDS SUMMARY | 2025-01-18 04:10 | XMS_ITS ---
Author Organization The [facility] in [place] Address [address] [place] [address] Care Team Providers Care Pastor Name Role Phone Chris Breen Primary Care Provider REASON FOR VISIT rf Hydrocodone and zyrtec Medications Medication SIG (Take, Route, Frequency, Duration) Notes Start Date End Date Status HYDROcodone-Acetaminophen 5-325 MG 1 tablet as needed Orally every 6 hrs for 14 days 01/18/2025 Active Cetirizine HCl 10 MG 1 tablet Orally Onc e a day for 30 days 01/11/2025 Active Encounters Encounter Location Date Provider Diagnosis [address] [address] 01/18/2025 Chris Breen Reduced ejection fra ction concurrent with and due to acute heart failure I50.9 and Knee osteoarthritis M17.9 Assessments Encounter Date Diagnosis (ICD Code) Assessment Notes Treatment Notes Treatment Clinical Notes Section Notes 01/18/2025 Reduced ejection fraction concurrent with and due to acute heart failure (ICD-10 - I50.9) 01/18/2025 Knee osteoarthritis (ICD-10 - M17.9) Plan Of Treatment Medication Medication Name Sig Start Date Stop Date Notes HYDROcodone-Acetaminophen 5- 325 MG 1 tablet as needed Orally every 6 hrs for 14 days 01/18/2025 Cetirizine HCl 10 MG 1 tablet Orally Onc e a day for 30 days 01/11/2025 Progress Notes * Cristobal GARCIA ADOB: 5 (59 yo M)Acc No.[id number]:01/18/2025 Patient: Cristobal JEWELL :1965 A ge:59 Y S ex:Male Address:[address] [place] [address], [address] * Refills Refill Cetirizine HCl Tablet, 10 MG, Orally, 30, 1 tablet, Once a day, 30 days, Refills=11 Refill HYDROcodone-Acetaminophen Tablet, 5-325 MG, Orally, 56 Tablet, 1 tablet as needed, every 6 hrs, 14 days, Refills=0 * true * Date: Generated for Gwendolyn ramsey/Fernanda/Cucoitting on: 0 01/21/2025 07:40 AM EDT
--- OUTSIDE RECORDS SUMMARY | 2025-01-21 12:57 | XMS_ITS | Encounter Summary ---
Author Organization [employer] Address [id number] [address] [place] [address] Care Team Providers Care Director Loan Name Role Phone Sandip Woo DO Primary Care Provider [phone] Encounter Details Date Type Department Care Team (Late st Contact Info) Description 02/15/2024 Telephone [facility] Internal Medicine - Family Medicine [address] [place] [id number] Nitza Oneal CMA Social History Tobacco Use [...] documented as of this encounter Care Teams Director Loan Relationship Specialty Start Date End Date Sandip Woo DO [address] [place] [address] PCP - General Internal Medicine 01/12/23 documented as of this encounter
--- OUTSIDE RECORDS SUMMARY | 2025-01-21 12:58 | XMS_ITS | Encounter Summary ---
Author Organization [employer] Address [id number] [address] [place] [address] Care Team Providers Care Datastage Consultant Name Role Phone Sandip Woo DO Primary Care Provider [phone] Encounter Details Date Type Department Care Team (Late st Contact Info) Description 04/11/2023 Orders Only [facility] Internal Medicine - Family Medicine [address] [place] [id number] Sandip Woo DO [address] [place] [address] Primary osteoarthritis of right shoulder Social History [...] documented as of this encounter Care Teams Datastage Consultant Relationship Specialty Start Date End Date Sandip oWo DO [address] [place] [address] PCP - General Internal Medicine 01/12/23 documented as of this encounter
--- OUTSIDE RECORDS SUMMARY | 2025-01-21 12:58 | XMS_ITS | Clinical Summary ---
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) 01/16/2024 Essential hypertension 03/10/2023 Hyperlipidemia 03/10/2023 Rotator cuff syndrome of right shoulder 03/10/20 Stage 3b chronic kidney disease 03/10/2023 Type 2 diabetes mellitus wit hout complication, without long-term current use of insulin 03/10/2023 Obesity, morbid 01/10/2023 CKD (chronic kidney disease) 11/03/2014 Hyperkalemia 11/03/2014 Syncope 11/03/2014 History of DVT (deep vein thrombosis) 10/14/2014 Social History Tobacco Use Types Packs/Day Years Used Date Smoking Tobacco: Never Assessed Sex and Gender Information Value Date Recorded Sex Assigned at Male 01/10/2025 9:33 AM EDT Legal Sex Male 11:23 PM EDT Gender Identity Male 01/10/2025 9:33 AM EDT Sexual Orientation Heterosexual or Straight 12/28 9:33 AM EDT Plan of Treatment Upcoming Encounters Date Type Department Care Team (Late st Contact Info) Description 01/21/2025 1:00 PM EDT Office Visit [facility] [address] [place] [address] Howard Delatorre, G[employer] [address] [place] [address] Health Maintenance Due Date Last Done Comments CT Colonography 1965 Colonoscopy 1965 Colorectal Cancer Screening 1965 Diabetes: Hemoglobin A1C 1965 FIT-DNA 1965 FIT 1965 FOBT 1965 Medicare Annual Wellness (AWV) 1965 Sigmoidoscopy 1965 Diabetes: Retinopathy Screening 1974 Depression Screening 1976 Diabetes: Urine Protein Screening 10/28/1983 Pneumococcal Vaccine: Pediatrics (0 to 5 Years) and At-Risk Patients (6 to 64 Years) (1 of 2 - PCV) 10/28/1983 Zoster Vaccines (1 of 2) 2014 COVID-19 Vaccine ( - 2023-2 5 season) 2024 Influenza Vaccine (#1) 2025 , 03/10/2023 Adult Tetanus 03/10/2033 03/10/2023 HIB Vaccines Aged Out No longer eligi ble based on patient's age to complete this topic HPV Vaccines Aged Out No longer eligi ble based on patient's age to complete this topic IPV Vaccines Aged Out No longer eligi ble based on patient's age to complete this topic Meningococcal B Vaccine Aged Out No l onger eligible based on patient's age to complete this topic Meningococcal Vaccine Aged Out No kirk heavenly eligible based on patient's age to complete this topic Rotavirus Vaccines Aged Out No longer eligible based on patient's age to complete this topic Insurance [employer] MEDICARE
--- OUTSIDE RECORDS SUMMARY | 2025-01-21 12:58 | XMS_ITS | Encounter Summary ---
Author Organization [employer] Address [id number] [address] [place] [address] Care Team Providers Care Geothermal Technician Name Role Phone Sandip Woo DO Primary Care Provider [phone] Encounter Details Date Type Department Care Team (Late st Contact Info) Description 01/19/2024 Telephone [facility] Internal Medicine - Family Medicine [address] [place] [phone] Nitza Oneal CMA Social History Tobacco Use [...] documented in this encounter Plan of Treatment Not on file documented as of this encounter Visit Diagnoses Not on filedocumented in this encounter Additional Health Concerns Assessment Noted Time PHQ-9 Depression Total Score: 9 01/16/20 24 4:32 PM EDT documented as of this encounter Care Teams Geothermal Technician Relationship Specialty Start Date End Date Sandip Woo DO [address] [place] [address] PCP - General Internal Medicine 01/12/23 documented as of this encounter
--- OUTSIDE RECORDS SUMMARY | 2025-01-21 12:58 | XMS_ITS | Encounter Summary ---
Author Organization [employer] Sys tem Address [facility] [id number] [address] [place] [address] Care Team Providers Care Banking Management Consulting Manager Name Role Phone Sandip Woo DO Primary Care Provider [phone] Encounter Details Date Type Department Care Team (Late st Contact Info) Description 12/19/2023 Orders Only [facility] - Family Medicine [address] [place] [address] Ref Prov, [place] [address] Social History Tobacco Use Types Packs/Day Years [...] documented as of this encounter Care Teams Banking Management Consulting Manager Relationship Specialty Start Date End Date Sandip Woo DO [address] [id number] PCP - General Internal Medicine 01/12/23 documented as of this encounter
--- OUTSIDE RECORDS SUMMARY | 2025-01-21 12:58 | XMS_ITS | Clinical Summary ---
Author Organization [employer] Address [facility] [place][id number] [address] [place] [address] Care Team Providers Care Lineman A Class Name Role Phone Sandip Woo Primary Care Provider [phone] Allergies Active Allergy Reactions Criticality Noted Date Comments Topiramate Headache,Other (See Comments) 2013 Severe headache Medications albuterol (PROVENTIL HFA;VENTOLIN HFA) 90 mcg/actuation inhaler INHALE 2 PUFFS BY MOUTH EVERY 4 HOURS NEEDED for SHORTNESS OF BREATH or FOR WHEEZING 4 Active aspirin 81 mg chewable tabletIndications: Chronic combined systolic and diastolic CHF (congestive heart failure) ([facility]) Chew 1 tablet (81 mg total) and swallow in the morning. 90 tablet 1 4 Active magnesium oxide 250 mg tabletIndications: Chronic combined systolic and diastolic CHF (congestive heart failure) ([facility]) Take 1 tablet (250 mg total) by mouth in the morning. 90 tablet 1 4 Active atorvastatin (LIPITOR) 40 mg tabletIndications: Type 2 diabetes mellitus without complication, without long-term current use of insulin ([facility]) Take 1 tablet (40 mg total) by mouth nightly. 90 tablet 1 5 Active carvediloL (COREG) 12.5 mg tabletIndications: Chronic combined systolic and diastolic CHF (congestive heart failure) ([facility]) Take 1 tablet (12.5 mg total) by mouth in the morning and 1 tablet (12.5 mg total) in the evening. Take with meals. 180 tablet 1 5 Active furosemide (LASIX) 40 mg tabletIndications: Chronic combined systolic and diastolic CHF (congestive heart failure) ([facility]) Take 1 tablet (40 mg total) by mouth daily. 30 tablet 11 5 Active losartan (COZAAR) 50 mg tabletIndications: Chronic combined systolic and diastolic CHF (congestive heart failure) ([facility]) Take 1 tablet (50 mg total) by mouth in the morning. 90 tablet 1 5 Active spironolactone (ALDACTONE) 25 mg tabletIndications: Chronic combined systolic and diastolic CHF (congestive heart failure) ([facility]) Take 1 tablet (25 mg total) by mouth in the morning. 90 tablet 5 Active dapagliflozin propanediol (FARXIGA) 10 mg tabletIndications: Chronic combined systolic and diastolic CHF (congestive heart failure) ([facility]) Take 1 tablet (10 mg total) by mouth in the morning. 120 tablet 2 5 Active baclofen 5 mg tabletIndications: Primary osteoarthritis of right shoulder Take 2 tablets by mouth 2 (two) times a day as needed (back spasm). 5 Active metFORMIN (GLUCOPHAGE) 1000 mg tabletIndications: Type 2 diabetes mellitus without complication, without long-term current use of insulin ([facility]) TAKE 1 TABLET BY MOUTH TWICE DAILY (IN THE MORNING and BEFORE bedtime) 180 tablet 5 Active cetirizine (ZyrTEC) 10 mg tabletIndications: Non-seasonal allergic rhinitis, unspecified trigger Take 1 tablet (10 mg total) by mouth in the morning. 30 tablet 5 Active Active Problems Problem Noted Date Diagnosed [...] Encounters Date Type Department Care Team Description 01/07/2025 Orders Only [facility] - Family Medicine [address] [place] [address] Ref Prov, Not In System 12/13/2024 Refill [facility] - [facility] Medicine [address] [place] [address] Sandip Woo, Non-seasonal allergic rhinitis, unspecified trigger; Type 2 diabetes mellitus without complication, without long-term current use of insulin ([facility]) 12/04/2024 Telephone [facility] - Family Medicine [address] [place] [address] Shanelle Chung, [facility] 12/03/2024 Refill [facility] - Family Medicine [address] [place] [address] Sandip Woo, Non-seasonal allergic rhinitis, unspecified trigger 12/03/2024 Refill [facility] - Family Medicine [address] [place] [phone] Sandip Woo DO Type 2 diabetes mellitus without complication, without long-term current use of insulin ([facility]); Non-seasonal allergic rhinitis, unspecified trigger from Last [...] 09/03/2024 1:48 PM EDT Plan of Treatment Health Maintenance Due Date Last Done Comments Diabetic Ophthalmology Exam 1964 Adult BMI Follow Up Plan 1982 Zoster (Shingles) Vaccine (1 of 2) 2014 Diabetic Foot Exam 01/11/2024 01/10/2023 Influenza Vaccine 01/28/2025 06/05/2024, 03/10/2023 Depression Screening 06/05/2025 06/05/2024 Statin Use: Diabetic 06/05/2025 06/05/2024 Adult BMI Screening 09/03/2025 09/03/2024 Tobacco Screening 09/03/2025 09/03/2024 DTaP,Tdap and Td Vaccines (2 - Td or Tdap) 03/10/2033 03/10/2023 Medical Devices Not on file Procedures Procedure Name Priority Date/Time Associated Diagnosis Comments CT CTA CHEST Routine 12/11/2024 4:44 PM EDT XR CHEST 1 VW Routine 12/11/2024 3:58 PM EDT from Last 3 Months Results * CT angiogram chest (12/11/2024 4:44 PM EDT) Anatomical Region Laterality Modality Lung, Body, Chest, Vascular, Body Covera N/A Computed Tomography us Not In System Ref Prov IMG CT ORDERABLES Final R esult * X-ray chest 1 view (12/11/2024 3:58 PM EDT) Anatomical Region Laterality Modality Body, Chest N/A Computed Radiogr aphy us Not In System Ref Prov IMG DIAGNOSTIC IMAGING OR DERABLES Final Result from Last 3 Months Insurance [employer] MED[employer]ARE Care Teams Lineman A Class Relationship Specialty Start Date End Date Sandip Woo DO [address] [place] [address] PCP - General Internal Medicine 01/12/23
--- OUTSIDE RECORDS SUMMARY | 2025-01-21 12:58 | XMS_ITS | Encounter Summary ---
Author Organization [employer] s tem Address [facility] [id number] [address] [place] [address] Care Team Providers Care Equipment Specialist Name Role Phone Sandip Woo DO Primary Care Provider [phone] Encounter Details Date Type Department Care Team (Late st Contact Info) Description 02/23/2024 Orders Only [facility] - Family Medicine [address] [place] [phone] Sandip Woo DO [address] [place] [address] Bronchitis, allergic, unspecified asthma severity, uncomplicated (Primary [...] documented as of this encounter Care Teams Equipment Specialist Relationship Specialty Start Date End Date Sandip Woo DO [address] [place] [address] PCP - General Internal Medicine 01/12/23 documented as of this encounter
--- OUTSIDE RECORDS SUMMARY | 2025-01-21 12:58 | XMS_ITS | Encounter Summary ---
Author Organization [employer] Sys tem Address [facility] [id number] [address] [place] [address] Care Team Providers Care Sales Marketing Director Name Role Phone Sandip Woo DO Primary Care Provider [phone] Encounter Details Date Type Department Care Team (Late st Contact Info) Description 12/04/2024 Telephone [facility] - Family Medicine [address] [place] [address] Shanelle Chung CMA Social History Tobacco Use [...] 11:33 AM EDT Pharmacist Barbara from [facility] in [place] called inquiring if you could write pt's [...] documented as of this encounter Care Teams Sales Marketing Director Relationship Specialty Start Date End Date Sandip Woo DO [address] [id number] PCP - General Internal Medicine 01/12/23 documented as of this encounter
--- OUTSIDE RECORDS SUMMARY | 2025-01-21 12:58 | XMS_ITS | Encounter Summary ---
Author Organization [employer] Address [facility]-[id number] [address] [place] [address] Care Team Providers Care Cleat Blanker Name Role Phone Sandip Woo DO Primary Care Provider [phone] Encounter Details Date Type Department Care Team (Late st Contact Info) Description 01/24/2024 Telephone [facility] - Family Medicine [address] [place] [address] CMA Social History Tobacco Use [...] CMA - 01/24/2024 2:08 PM EDT Pts [facility] nurse called to let you know she will be discharging this pt from [facility] for repeat non compliance also pt [...] back stated pt is refusing any futher [facility], last week he was having shortness of [...] diastolic CHF (congestive heart failure) ([facility]) documented in this encounter Additional Health Concerns Assessment Noted Time PHQ-9 Depression Total Score: 9 01/16/20 24 4:32 PM EDT documented as of this encounter Care Teams Cleat Blanker Relationship Specialty Start Date End Date Sandip Woo DO [address] [place] [address] PCP - General Internal Medicine 01/12/23 documented as of this encounter
--- OUTSIDE RECORDS SUMMARY | 2025-01-21 12:58 | XMS_ITS | Encounter Summary ---
Author Organization [employer] Sys tem Address [facility] [id number] [address] [place] [address] Care Team Providers Care Hat Checker Name Role Phone Sandip Woo DO Primary Care Provider [phone] Encounter Details Date Type Department Care Team (Late st Contact Info) Description 01/06/2024 Orders Only [facility] - Family Medicine [address] [place] [address] External, Scanning Provider Social History Tobacco Use [...] Time PHQ-9 Depression Total Score: 0 01/02/20 2:38 PM EDT documented as of this encounter Care Teams Hat Checker Relationship Specialty Start Date End Date Sandip Woo DO [address] [place] [address] PCP - General Internal Medicine 01/12/23 documented as of this encounter
--- OUTSIDE RECORDS SUMMARY | 2025-01-21 12:58 | XMS_ITS | Encounter Summary ---
Author Organization [employer] Address [facility][id number] [address] [place] [address] Care Team Providers Care Forest Fire Prevention Specialist Name Role Phone Sandip Woo DO Primary Care Provider [phone] Reason for Visit * Reason Comments Med Refill Encounter Details Date Type Department Care Team (Late st Contact Info) Description 07/20/2023 Refill [facility] - Family Medicine [address] [place] [phone] Sandip Woo DO [address] [place] [address] Essential hypertension; Hyperlipidemia, unspecified hyperlipidemia type Social [...] documented as of this encounter Care Teams Forest Fire Prevention Specialist Relationship Specialty Start Date End Date Sandip Woo DO [address] [place] [address] PCP - General Internal Medicine 01/12/23 documented as of this encounter
--- OUTSIDE RECORDS SUMMARY | 2025-01-21 12:58 | XMS_ITS | Encounter Summary ---
Author Organization [employer] tem Address [facility] [place][id number] [address] [place] [address] Care Team Providers Care Blade Balancer Name Role Phone Sandip Woo DO Primary Care Provider [phone] Reason for Visit * Reason Comments Med Refill Encounter Details Date Type Department Care Team (Late st Contact Info) Description 12/13/2024 Refill [facility] - Family Medicine [address] [place] [phone] Sandip Woo DO [address] [place] [address] Non-seasonal allergic rhinitis, unspecified trigger; Type 2 diabetes mellitus without complication, without long-term current use of insulin ([facility]) Social History Tobacco Use Types Packs/Day Years [...] complication, without long-term current use of insulin ([facility]) documented in this encounter Additional Health Concerns Assessment Noted Time PHQ-9 Depression Total Score: 0 06/05/19 25 12:55 PM EST documented as of this encounter Care Teams Blade Balancer Relationship Specialty Start Date End Date Sandip Woo DO [address] [place] [address] PCP - General Internal Medicine 01/12/23 documented as of this encounter
--- OUTSIDE RECORDS SUMMARY | 2025-01-21 12:58 | XMS_ITS | Encounter Summary ---
Author Organization [facility] Address [facility] [place]-[id number] [address] [place] [address] Care Team Providers Care Delinquent Tax Collector Name Role Phone Sandip Woo DO Primary Care Provider [phone] Encounter Details Date Type Department Care Team (Late st Contact Info) Description 01/03/2023 Orders Only [facility] - Family Medicine [address] [place] [address] External, Scanning Provider Social History Tobacco Use [...] 9:49 AM EDT) us Scanning Provider External [place] [facility] Final Result Performing Organization Address City/[facility] Co de Phone Number MANUALLY TRANSCRIBED RESULTS * Multiple labs (10/01/2020 9:42 AM EDT) us Scanning Provider External [place] IMAGING Final Result Performing Organization Address [facility] Co de Phone Number MANUALLY TRANSCRIBED RESULTS documented in this encounter Visit Diagnoses Not on filedocumented in this encounter Care Teams Delinquent Tax Collector Relationship Specialty Start Date End Date Sandip Woo DO [address] [place] [address] PCP - General Internal Medicine 01/12/23 documented as of this encounter
--- OUTSIDE RECORDS SUMMARY | 2025-01-21 12:58 | XMS_ITS | Encounter Summary ---
Author Organization [employer] [facility] tem Address [facility] [place][id number] [address] [place] [address] Care Team Providers Care Immigration Consultant Name Role Phone Sandip Woo DO Primary Care Provider [phone] Reason for Referral * Consultation (Routine) - Closed Specialty Diagnoses / Procedures Referred By Otoniel cruz Referred To Contact Orthopaedic Surgery Diagnoses Primary osteoarthritis of right shoulder Sandip Woo DO [address] [place] [address] Phone: tel: fax: Kaveh Mayer DO Phone: tel: fax: Referral ID Status Reason Start Date Expiration Date V isits Requested Visits Authorized [id number] Closed Specialty Services Required 03/21/2023 03/20/2024 4 4 Encounter Details Date Type Department Care Team (Late st Contact Info) Description 03/21/2023 Orders Only [facility] - Family Medicine [address] [place] [address] Sandip Woo DO [address] [place], [place] [phone] Primary osteoarthritis of right shoulder (Primary Dx) [...] on file documented as of this encounter Results * [...] documented as of this encounter Care Teams Immigration Consultant Relationship Specialty Start Date End Date Sandip Woo DO [address] [place] [address] PCP - General Internal Medicine 01/12/23 documented as of this encounter
--- OUTSIDE RECORDS SUMMARY | 2025-01-21 12:58 | XMS_ITS | Encounter Summary ---
Author Organization [employer] tem Address [facility] [place]-[id number] [address] [place] [address] Care Team Providers Care Feed Mixer Name Role Phone Sandip Woo DO Primary Care Provider [phone] Reason for Visit * Reason Comments Med Refill Encounter Details Date Type Department Care Team (Late st Contact Info) Description 10/18/2023 Refill [facility] - Family Medicine [address] [place] [address] Sandip Woo DO [address] [place] [address] Encounter for immunization Social History Tobacco Use [...] documented as of this encounter Care Teams Feed Mixer Relationship Specialty Start Date End Date Sandip Woo DO [address] [place] [address] PCP - General Internal Medicine 01/12/23 documented as of this encounter
--- OUTSIDE RECORDS SUMMARY | 2025-01-21 12:58 | XMS_ITS | Encounter Summary ---
Author Organization [employer] Sys tem Address [facility]-[id number] [address] [place] [address] Care Team Providers Care Orthotic Technician Name Role Phone Sandip Woo DO Primary Care Provider [phone] Encounter Details Date Type Department Care Team (Late st Contact Info) Description 09/09/2023 Telephone [facility] - Family Medicine [address] [place] [address] CMA Social History Tobacco Use [...] would be a good switch. He can meat pickler a sample of Rybelsus 3 mg daily [...] documented as of this encounter Care Teams Orthotic Technician Relationship Specialty Start Date End Date Sandip Woo DO [address] [place] [address] PCP - General Internal Medicine 01/12/23 documented as of this encounter
--- OUTSIDE RECORDS SUMMARY | 2025-01-21 12:58 | XMS_ITS | Clinical Summary ---
Author Organization [facility] Address [address], [address] [place] [address] Care Team Providers Care Park Manager Name Role Phone Thom Stern MD Primary Care Provider [phone] Allergies Active Allergy Reactions Criticality Noted Date [...] 0 11/06/2014 Active vitamin D (ERGOCALCIFEROL ) 85401 UNITS capsule Take 1 capsule by mouth [...] 9:41 AM 11/06/2014 6:48 PM Care Teams Park Manager Relationship Specialty Start Date End Date Thom Stern MD PCP - General 11/03/14
--- OUTSIDE RECORDS SUMMARY | 2025-01-21 12:58 | XMS_ITS | Encounter Summary ---
Author Organization [employer] Sys [employer] Address [facility] [place]-[id number] [address] [place] [address] Care Team Providers Care Oil Processing Technician Name Role Phone Sandip Woo DO Primary Care Provider Reason for Visit * Reason Comments Med Refill Encounter Details Date Type Department Care Team (Late st Contact Info) Description 10/06/2023 Refill [facility] - Family Medicine [address] [place] [address] Sandip Woo DO [address] [place] [address] Encounter for immunization Social History Tobacco Use [...] EDT This is discontinued due to starting Sánchezbelsus documented in this encounter Plan of Treatment Not on file documented as of this encounter Visit Diagnoses Diagnosis Encounter for immunization documented in this encounter Additional Health Concerns Assessment Noted Time PHQ-9 Depression Total Score: 0 09/07/19 24 1:09 PM EDT documented as of this encounter Care Teams Oil Processing Technician Relationship Specialty Start Date End Date Sandip Woo DO [address] [place] [address] PCP - General Internal Medicine 01/12/23 documented as of this encounter
--- OUTSIDE RECORDS SUMMARY | 2025-01-21 12:58 | XMS_ITS | Encounter Summary ---
Author Organization [employer] tem Address [facility] [place]-[id number] [address] [place] [address] Care Team Providers Care Director Hair Name Role Phone Sandip Woo DO Primary Care Provider [phone] Encounter Details Date Type Department Care Team (Late st Contact Info) Description 01/03/2024 Orders Only [facility] - Family Medicine [address] [place] [address] External, Scanning Provider Social History Tobacco Use [...] as of this encounter Care Teams Director Hair Relationship Specialty Start Date End Date Sandip Woo DO [address] [id number] PCP - General Internal Medicine 01/12/23 documented as of this encounter
--- OUTSIDE RECORDS SUMMARY | 2025-01-21 12:58 | XMS_ITS | Encounter Summary ---
Author Organization [employer] Sys tem Address [facility] [place]-[id number] [address] [place] [address] Care Team Providers Care Machine Clipper Name Role Phone Sandip Woo DO Primary Care Provider [phone] Encounter Details Date Type Department Care Team (Late st Contact Info) Description 02/23/2024 Telephone [facility] - Family Medicine [address] [place] [address] CMA Social History Tobacco Use [...] documented as of this encounter Care Teams Machine Clipper Relationship Specialty Start Date End Date Sandip Woo DO [address] [place] [address] PCP - General Internal Medicine 01/12/23 documented as of this encounter
--- OUTSIDE RECORDS SUMMARY | 2025-01-21 12:58 | XMS_ITS | Encounter Summary ---
Author Organization [employer] Sys tem Address [facility][id number] [address] [place] [address] Care Team Providers Care Highway Engineering Teacher Name Role Phone Sandip Woo DO Primary Care Provider [phone] Encounter Details Date Type Department Care Team (Late st Contact Info) Description 01/07/2025 Orders Only [facility] - Family Medicine [address] [place] [address] Ref Prov, [place] [address] Social History Tobacco Use Types Packs/Day Years [...] 1 VW Routine 12/11/2024 3:58 PM EDT documented in this encounter Results * CT angiogram chest (12/11/2024 4:44 [...] IMG DIAGNOSTIC IMAGING OR DERABLES Final Result documented in this encounter Visit Diagnoses Not on filedocumented in this encounter Additional Health Concerns Assessment Noted Time PHQ-9 Depression Total Score: 0 06/05/19 25 12:55 PM EST documented as of this encounter Care Teams Highway Engineering Teacher Relationship Specialty Start Date End Date Sandip Woo DO [address] [phone] PCP - General Internal Medicine 01/12/23 documented as of this encounter
--- OUTSIDE RECORDS SUMMARY | 2025-01-21 12:58 | XMS_ITS | Encounter Summary ---
Author Organization [employer] Sys tem Address [facility]-[id number] [address] [place] [address] Care Team Providers Care Fire Lieutenant Marine Name Role Phone Sandip Woo DO Primary Care Provider [phone] Encounter Details Date Type Department Care Team (Late st Contact Info) Description 09/23/2023 Orders Only [facility] - Family Medicine [address] [place] [address] Sandip Woo DO [address] [place] [address] Type 2 diabetes mellitus without complication, without long-term current use of insulin ([facility]) (Primary Dx) Social History Tobacco Use Types [...] complication, without long-term current use of insulin ([facility] Primary documented in this encounter Additional Health Concerns Assessment Noted Time PHQ-9 Depression Total Score: 0 09/07/19 24 1:09 PM EDT documented as of this encounter Care Teams Fire Lieutenant Marine Relationship Specialty Start Date End Date Sandip Woo DO [address] [place] [address] PCP - General Internal Medicine 01/12/23 documented as of this encounter
--- OUTSIDE RECORDS SUMMARY | 2025-01-21 12:58 | XMS_ITS | Patient Health Record ---
Author Organization [facility] [place] Address [address] [place] [address] Care Team Providers Care Network Contract Manager Name Role Phone Chris Breen Primary Care Provider Allergies Allergen (clinical drug ingredient) Drug/Non Drug Allergy documented on EMR Reaction Allergy Type Onset Date Status topiramate Topamax headaches Drug Allergy Active Reason For Referral Diagnosis 1 Reduced ejection fra ction concurrent with and due to acute heart failure (I50.9) Referral Organization [facility] Referring Provider First Name Chris Referring Provider Last Name Jamshid Ref[facility] Provider [facility] Card[facility], [facility] Referred Provider Specialty Cardiology Referral Priority Routine Medications Medication SIG (Take, Route, Frequency, Duration) Notes Start Date End Date Status metFORMIN HCl 1000 MG 1 tablet with a me al Oral BID for 90 days Active Magnesium 250 MG 1 tablet with a meal Orally Once a day Active Losartan Potassium 50 MG 1 tablet Orally Once a day for 90 days Active Glimepiride 1 MG 1 tablet with breakf ast or the first main meal of the day Orally Once a day Active Furosemide 40 MG 1 tablet Orally Once a day for 90 days Active HYDROcodone-Acetaminophen 5-325 MG 1 tablet as needed Orally every 6 hrs for 14 days 01/18/2025 Active Cetirizine HCl 10 MG TAKE 1 TABLET BY [facility] IN THE MORNING Oral for 30 Days Active Carvedilol 12.5 MG Take 1 tablet Oral T wice a day for 90 days Active Lancets 30G - Use 1 lancet E11.9 o nce daily for 90 01/11/2025 Active Atorvastatin Calcium 40 MG 1 tablet Oral ly Once a day for 90 days Active Cetirizine HCl 10 MG 1 tablet Orally Onc e a day for 30 days 01/11/2025 Active Blood Glucose Monitor System w/Device use device Dx:E11.9 daily to monitor blood glucose level 01/11/2025 Active Spironolactone 25 MG TAKE 1 TABLET BY [facility] DAILY Oral for 90 Days Active Test Strips - as directed Dx: Diab etes Type II Once daily for 90 days 01/11/2025 Active Aspirin Low Dose 81 MG CHEW [...] Problem Status W/U Status Risk Notes Problem Acute on chronic diastolic heart failure (430359154) Acute on chronic diastolic (congestive) heart failure (I50.33) Active confirmed Problem Acute combined systolic and diastolic heart failure (463808203450744) Acute combined systolic (congestive) and diastolic (congestive) heart failure (I50.41) Active confirmed Problem Hypertension (44545586) Hypertension (I10) Active confirmed Problem COPD - Chronic obstructive pulmonary disease (75215267) COPD (chronic obstructive pulmonary disease) (J44.9) Active confirmed Problem Osteoarthritis of knee (073364798) Knee osteoarthritis (M17.9) Active confirmed Problem Pulmonary edema (29787655) Pulmonary edema (J81.1) Active confirmed Problem Iron deficiency anemia (63189847) Anemia, iron deficiency (D50.9) Active confirmed Problem Hyperglycemia due to type 2 diabetes mellitus (818528909570009) Diabetes mellitus with hyperglycemia (E11.65) Active confirmed Problem Anemia of renal disease (854953616) Anemia of renal disease (D63.1) Active confirmed Problem Malnutrition of moderate degree (Simeon: 60% to less than 75% of standard weight) (71241302) Moderate malnutrition (E44.0) Active confirmed Problem Essential hypertension (12895540) BP (high blood pressure) (I10) Active confirmed Problem Heart failure (96849781) Reduced ejection fraction concurrent with and due to acute heart failure (I50.9) Active confirmed Problem Diabetes mellitus (31701425) Diabetes mellitus (E11.9) Active confirmed Problem Acute worsening of stage 3 chronic kidney disease (N18.30) Active confirmed Problem Chronic kidney disease stage 3 (disorder) (514632335) Chronic kidney disease, stage III (moderate) (N18.30) Active confirmed Vital Signs Blood pressure diastolic 62 mm Hg 01/11/2025 Height 66 in 01/11/2025 Blood pressure systolic 130 mm Hg 01/11/2025 Weight 425.2 lbs 01/11/2025 BMI 68.62 kg/m2 01/11/2025 Encounters Encounter Location Date Provider Diagnosis [facility] [address] [place] [address] 01/11/2025 Chris Breen [facility] [address] [place] [address] 01/18/2025 Chris Breen Reduced ejection fra ction concurrent with and due to acute heart failure I50.9 and Knee osteoarthritis M17.9 [facility] [address] [place] [address] 01/11/2025 Chris Breen Reduced ejection fra ction [...] acute heart failure (ICD-10 - I50.9) 01/18/2025 Reduced ejection fraction concurrent with and due to acute heart failure (ICD-10 - I50.9) 01/18/2025 Knee osteoarthritis (ICD-10 - M17.9) 01/11/2025 Diabetes mellitus with hyperglycemia (ICD-10 - E11.65) 01/11/2025 COPD (chronic obstructive pulmonary disease) (ICD-10 - J44.9) 01/11/2025 Chronic kidney disease, stage III (moderate) (ICD-10 - N18.30) 01/11/2025 Acute worsening of stage 3 chronic kidney disease (ICD-10 - N18.30) 01/11/2025 Knee osteoarthritis (ICD-10 - M17.9) Plan Of Treatment Pending Test Test Name Order Date BNP 01/11/2025 GLYCOHEMOGLOBIN A1C 01/11/2025 PROF 14(COMP METB) 01/11/2025 THYROID PANEL (T4/TSH/FREE T3) 5 Insurance Providers Payer Name Payer Address Payer Phone Subscriber Number Group Number Insured Name Patient Relationship to Insured Coverage Start Date Coverage End Date [employer] MEDICARE ADVANTAGE [address] [address] [place] [address] [id number] Cristobal Garcia Self - patient is the insured Medical (General) History Surgical History Surgery Date(Month/Year) appendectomy Hospitalization History Reason Date(Month/Year) Pneumonia 2024 CHF 2024
--- OUTSIDE RECORDS SUMMARY | 2025-01-21 12:58 | XMS_ITS | Encounter Summary ---
Author Organization [facility] Address [address] [place] [facility] [place] [address] Care Team Providers Care Hydrotel Operator Name Role Phone Sandip Woo MD Primary Care Provider [phone] Encounter Details Date Type Department Care Team (Late st Contact Info) Description 06/09/2023 Abstract [facility] [address] [place] [phone] Inna Jefferson NP Social History Tobacco Use [...] on filedocumented in this encounter Care Teams Hydrotel Operator Relationship Specialty Start Date End Date Sandip Woo MD PCP - General Internal Medicine 03/28/23 documented as of this encounter
--- OUTSIDE RECORDS SUMMARY | 2025-01-21 12:58 | XMS_ITS | Encounter Summary ---
Author Organization [facility] Address [address] [place] [address] Care Team Providers Care Discount Clerk Name Role Phone Sandip Woo MD Primary Care Provider [phone] Encounter Details Date Type Department Care Team (Late st Contact Info) Description 03/24/2023 Orders Only [facility] [address] [place] [address] Sandip Woo MD [address] [place] [address] Social History Tobacco Use Types Packs/Day Years [...] on filedocumented in this encounter Care Teams Discount Clerk Relationship Specialty Start Date End Date Sandip Woo MD PCP - General Internal Medicine 03/28/23 documented as of this encounter
--- OUTSIDE RECORDS SUMMARY | 2025-01-21 12:58 | XMS_ITS | Clinical Summary ---
Author Organization [facility] Address [address] [facility] [place] [address] Care Team Providers Care Fire Equipment Repairer Inspector Name Role Phone Sandip Woo MD Primary Care Provider [phone] Allergies Active Allergy Reactions Criticality Noted Date [...] file Insurance [employer]AGE Care Teams Fire Equipment Repairer Inspector Relationship Specialty Start Date End Date Sandip Woo MD PCP - General Internal Medicine 03/28/23
--- OUTSIDE RECORDS SUMMARY | 2025-01-21 12:58 | XMS_ITS | Encounter Summary ---
Author Organization [employer] Address [facility] [id number] [address] [place] [address] Care Team Providers Care Lithograph Operator Name Role Phone Sandip Woo DO Primary Care Provider [phone] Encounter Details Date Type Department Care Team (Late st Contact Info) Description 09/22/2023 Telephone [facility] Internal Medicine - Family Medicine [address] [place] [address] CMA Social History Tobacco Use [...] documented as of this encounter Care Teams Lithograph Operator Relationship Specialty Start Date End Date Sandip Woo DO [address] [place] [address] PCP - General Internal Medicine 01/12/23 documented as of this encounter
--- OUTSIDE RECORDS SUMMARY | 2025-01-21 12:58 | XMS_ITS | Encounter Summary ---
Author Organization [employer] Address [facility] [place]-[id number] [address] [place] [address] Care Team Providers Care Class C Truck Driver Name Role Phone Sandip Woo DO Primary Care Provider [phone] Encounter Details Date Type Department Care Team (Late st Contact Info) Description 10/18/2023 Orders Only [facility] - Family Medicine [address] [place] [address] Sandip Woo DO [address] [place] [address] Social History Tobacco Use Types Packs/Day Years [...] documented as of this encounter Care Teams Class C Truck Driver Relationship Specialty Start Date End Date Sandip Woo DO [address] [place] [id number] PCP - General Internal Medicine 01/12/23 documented as of this encounter
--- OUTSIDE RECORDS SUMMARY | 2025-01-21 12:58 | XMS_ITS | Encounter Summary ---
Author Organization [employer] Address [facility] [id number] [address] [place] [address] Care Team Providers Care Heart Specialist Name Role Phone Sandip Woo DO Primary Care Provider [phone] Encounter Details Date Type Department Care Team (Late st Contact Info) Description 03/18/2023 Orders Only [facility] - Family Medicine [address] [place] [address] Brandi Hurley CMA Chronic right shoulder pain [...] Shoulder Right Computed Radiography Sandip Woo DO IMG DIAGNOSTIC IMAGING ORDERABLE S Final Result documented in this encounter Visit Diagnoses Diagnosis Chronic right shoulder pain Pain in joint, shoulder region documented in this encounter Additional Health Concerns Assessment Noted Time PHQ-9 Depression Total Score: 0 03/10/20 11:32 AM EDT documented as of this encounter Care Teams Heart Specialist Relationship Specialty Start Date End Date Sandip Woo DO [address] [place] [address] PCP - General Internal Medicine 01/12/23 documented as of this encounter
--- OUTSIDE RECORDS SUMMARY | 2025-01-21 12:58 | XMS_ITS | Encounter Summary ---
Author Organization [employer] Address [facility] [place]-[id number] [address] [place] [address] Care Team Providers Care Watch Mechanic Name Role Phone Sandip Woo DO Primary Care Provider [phone] Encounter Details Date Type Department Care Team (Late st Contact Info) Description 06/07/2024 Orders Only [facility] - Family Medicine [address] [place] [address] Sandip Woo DO [address] [place] [address] Chronic combined systolic and diastolic CHF (congestive heart failure) ([facility]) Social History Tobacco Use Types Packs/Day Years [...] documented as of this encounter Care Teams Watch Mechanic Relationship Specialty Start Date End Date Sandip Woo DO [address] [place] [address] PCP - General Internal Medicine 01/12/23 documented as of this encounter
--- OUTSIDE RECORDS SUMMARY | 2025-01-21 12:58 | XMS_ITS | Encounter Summary ---
Author Organization [employer] Address [facility] [place][id number] [address] [place] [address] Care Team Providers Care Supervisor Computer Operations Name Role Phone Sandip Woo DO Primary Care Provider [phone] Encounter Details Date Type Department Care Team (Late st Contact Info) Description 06/06/2024 Telephone [facility] - Family Medicine [address] [place] [address] Brandi Hurley CMA Social History Tobacco Use [...] documented as of this encounter Care Teams Supervisor Computer Operations Relationship Specialty Start Date End Date Sandip Woo DO [address] [place] [id number] PCP - General Internal Medicine 01/12/23 documented as of this encounter
--- OUTSIDE RECORDS SUMMARY | 2025-01-21 12:58 | XMS_ITS | Encounter Summary ---
Author Organization [employer] Address [facility] [place]-[id number] [address] [place] [address] Care Team Providers Care Manager Wound Name Role Phone Sandip Woo DO Primary Care Provider [phone] Encounter Details Date Type Department Care Team (Late st Contact Info) Description 12/16/2023 Orders Only [facility] - Family Medicine [address] [place] [address] External, Scanning Provider Social History Tobacco Use [...] documented as of this encounter Care Teams Manager Wound Relationship Specialty Start Date End Date Sandip Woo DO [address] [place] [address] PCP - General Internal Medicine 01/12/23 documented as of this encounter
--- OUTSIDE RECORDS SUMMARY | 2025-01-21 12:58 | XMS_ITS | Encounter Summary ---
Author Organization [employer] Address [facility] [id number] [address] [place] [address] Care Team Providers Care Mononitrotoluene Operator Name Role Phone Sandip Woo DO Primary Care Provider [phone] Reason for Visit * Reason Comments Med Change Request Encounter Details Date Type Department Care Team (Late st Contact Info) Description 12/03/2024 Refill [facility] - Family Medicine [address] [place] [address] Sandip Woo DO [address] [place] [address] Non-seasonal allergic rhinitis, unspecified trigger Social History [...] documented as of this encounter Care Teams Mononitrotoluene Operator Relationship Specialty Start Date End Date Sandip Woo DO [address] [place] [address] PCP - General Internal Medicine 01/12/23 documented as of this encounter
[2025-01-21 15:00] LABS: Free T3 2.53 pg/mL (2.18-3.98); Thyroid Stimulating Hormone 2.366 uIU/mL (0.358-3.740)
[2025-01-21 15:01] LABS: Alanine Aminotransferase 23 U/L (16-63); Albumin Globulin Ratio 0.8; Albumin Level 3.1 g/dL (3.4-5.0); Alkaline Phosphatase 110 U/L (46-116); Anion Gap 9.5; Aspartate Amino Transferase 14 U/L (15-37); Blood Urea Nitrogen 26.0 mg/dL (7.0-18.0); Calcium 8.7 mg/dL (8.5-10.1); Carbon Dioxide 33.1 mmol/L (21.0-32.0); Chloride 104 mmol/L (98-107); Estimated GFR (African America >60 (>=60 mL/min/1.73m^2); Estimated GFR (Non-African Ame 58 (>=60 mL/min/1.73m^2); Globulin 4.0 g/dL; Glucose 145 mg/dL (74-106); NT Pro B Type Natriuretic Pept 456.0 pg/mL (<=900.0); Potassium 4.6 mmol/L (3.5-5.1); Sodium 142 mmol/L (136-145); Total Protein 7.1 g/dL (6.4-8.2)
== END 2025-01-21 12:54 | disposition home or self-care (01) ==
LOC: LAB 12:55
PROVIDERS: PCP Family Medicine; Visit Provider Family Medicine
DX: I12.9 Hypertensive chronic kidney disease with stage 1 through stage 4 chronic kidney disease, or unspecified chronic kidney disease (principal); I50.9 Heart failure, unspecified; E11.65 Type 2 diabetes mellitus with hyperglycemia; J44.9 Chronic obstructive pulmonary disease, unspecified; N18.30 Chronic kidney disease, stage 3 unspecified; I50.30 Unspecified diastolic (congestive) heart failure; R53.83 Other fatigue; I50.32 Chronic diastolic (congestive) heart failure
CPT/HCPCS: 36415; 80053; 83036; 83880; 84436; 84443; 84481; 85025

== ENCOUNTER 2025-01-21 13:47 | Outpatient (OUT) | payer MEDICARE, SELFPAY ==
--- OUTSIDE RECORDS SUMMARY | 2025-01-21 13:51 | XMS_ITS | Encounter Summary ---
Author Organization [employer] Address [facility] [id number] [address] [place] [address] Care Team Providers Care Liner Replacer Name Role Phone Sandip Woo DO Primary Care Provider [phone] Encounter Details Date Type Department Care Team (Late st Contact Info) Description 03/18/2023 Orders Only [facility] - Family Medicine [address] [place] [address] Brandi Hurley CMA Chronic right shoulder pain [...] documented as of this encounter Care Teams Liner Replacer Relationship Specialty Start Date End Date Sandip Woo DO [address] [place] [address] PCP - General Internal Medicine 01/12/23 documented as of this encounter
--- OUTSIDE RECORDS SUMMARY | 2025-01-21 13:51 | XMS_ITS | Encounter Summary ---
Author Organization [employer] [facility] [employer] Address [facility] [place]-[id number] [address] [place] [address] Care Team Providers Care Shoe Stainer Name Role Phone Sandip Woo DO Primary Care Provider [phone] Encounter Details Date Type Department Care Team (Late st Contact Info) Description 06/07/2024 Orders Only [facility] - Family Medicine [address] [place] [address] Sandip Woo DO [address] [place] [address] Chronic combined systolic and diastolic CHF (congestive heart failure) ([facility]) Social History Tobacco Use Types Packs/Day [...] documented as of this encounter Care Teams Shoe Stainer Relationship Specialty Start Date End Date Sandip Woo DO [address] [place] [address] PCP - General Internal Medicine 01/12/23 documented as of this encounter
--- OUTSIDE RECORDS SUMMARY | 2025-01-21 13:51 | XMS_ITS | Encounter Summary ---
Author Organization [employer] Address [facility] [place][id number] [address] [place] [address] Care Team Providers Care District Fire Chief Name Role Phone Sandip Woo DO Primary Care Provider [phone] Reason for Visit * Reason Comments Med Change Request Encounter Details Date Type Department Care Team (Late st Contact Info) Description 12/03/2024 Refill [facility] - Family Medicine [address] [place] [address] Sandip Woo DO [address] [place] [address] Non-seasonal allergic rhinitis, unspecified trigger Social History [...] documented as of this encounter Care Teams District Fire Chief Relationship Specialty Start Date End Date Sandip Woo DO [address] [place] [address] PCP - General Internal Medicine 01/12/23 documented as of this encounter
--- OUTSIDE RECORDS SUMMARY | 2025-01-21 13:51 | XMS_ITS | Encounter Summary ---
Author Organization [employer] Address [facility] [place][id number] [address] [place] [address] Care Team Providers Care Alpine Patroller Name Role Phone Sandip Woo DO Primary Care Provider [phone] Reason for Visit * Reason Comments Med Refill Encounter Details Date Type Department Care Team (Late st Contact Info) Description 10/06/2023 Refill [facility] - Family [facility] [address] [place] [address] Sandip Woo DO [address] [place] [address] Encounter for immunization Social History Tobacco Use [...] documented as of this encounter Care Teams Alpine Patroller Relationship Specialty Start Date End Date Sandip Woo DO [address] [place] [address] PCP - General Internal Medicine 01/12/23 documented as of this encounter
--- OUTSIDE RECORDS SUMMARY | 2025-01-21 13:51 | XMS_ITS | Encounter Summary ---
Author Organization [employer] Address [facility] [place]-[id number] [address] [place] [address] Care Team Providers Care Ad Operations Associate Name Role Phone Sandip Woo DO Primary Care Provider [phone] Encounter Details Date Type Department Care Team (Late st Contact Info) Description 09/09/2023 Telephone [facility] - Family Medicine [address] [place] [address] CMA Social History Tobacco Use [...] be a good switch. 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
--- OUTSIDE RECORDS SUMMARY | 2025-01-21 13:51 | XMS_ITS | Encounter Summary ---
Author Organization [employer] Address [facility] [id number] [address] [place] [address] Care Team Providers Care Wafer Fab Operator Name Role Phone Sandip Woo DO Primary Care Provider [phone] Encounter Details Date Type Department Care Team (Late st Contact Info) Description 02/23/2024 Orders Only [facility] - Family Medicine [address] [place] [address] Sandip Woo DO [address] [place] [address] Bronchitis, allergic, unspecified asthma severity, uncomplicated (Primary [...] documented as of this encounter Care Teams Wafer Fab Operator Relationship Specialty Start Date End Date Sandip Woo DO [address] [place] [address] PCP - General Internal Medicine 01/12/23 documented as of this encounter
--- OUTSIDE RECORDS SUMMARY | 2025-01-21 13:51 | XMS_ITS | Encounter Summary ---
Author Organization [employer] Address [facility] [place][id number] [address] [place] [address] Care Team Providers Care Network Program Manager Name Role Phone Sandip Woo DO Primary Care Provider [phone] Encounter Details Date Type Department Care Team (Late st Contact Info) Description 12/16/2023 Orders Only [facility] - Family Medicine [address] [place] [address] External, Scanning Provider Social History Tobacco Use [...] documented as of this encounter Care Teams Network Program Manager Relationship Specialty Start Date End Date Sandip Woo DO [address] [place] [address] PCP - General Internal Medicine 01/12/23 documented as of this encounter
--- OUTSIDE RECORDS SUMMARY | 2025-01-21 13:51 | XMS_ITS | Encounter Summary ---
Author Organization [employer] Address [facility] [id number] [address] [place] [address] Care Team Providers Care Clay Miner Name Role Phone Sandip Woo DO Primary Care Provider [phone] Encounter Details Date Type Department Care Team (Late st Contact Info) Description 04/11/2023 Orders Only [facility] - Family Medicine [address] [place] [address] Sandip Woo DO [address] [place] [address] Primary osteoarthritis of right shoulder Social History [...] documented as of this encounter Care Teams Clay Miner Relationship Specialty Start Date End Date Sandip Woo DO [address] [place] [address] PCP - General Internal Medicine 01/12/23 documented as of this encounter
--- OUTSIDE RECORDS SUMMARY | 2025-01-21 13:51 | XMS_ITS | Clinical Summary ---
Author Organization [facility] Address [address], [address] [place] [address] Care Team Providers Care Manager Diesel Name Role Phone Thom Stern MD Primary Care Provider [phone] Allergies Active Allergy Reactions Criticality Noted Date [...] 0 11/06/2014 Active vitamin D (ERGOCALCIFEROL ) 98759 UNITS capsule Take 1 capsule by mouth [...] 9:41 AM 11/06/2014 6:48 PM Care Teams Manager Diesel Relationship Specialty Start Date End Date Thom Stern MD PCP - General 11/03/14
--- OUTSIDE RECORDS SUMMARY | 2025-01-21 13:51 | XMS_ITS | Clinical Summary ---
Author Organization [facility] Address [address] [place], [place] [address] Care Team Providers Care Catering Associate Name Role Phone Jarred KILGORE MD, Thom Nash Primary Care Provider [phone] Allergies Active Allergy Reactions Criticality Noted Date [...] 6.0 - 8.4 g/dL 10/15/2014 2:33 AM [facility] Albumin 3.7 3.5 - 5.0 g/dL 10/15/2014 2:33 AM [facility] Calcium 9.3 8.5 - 10.5 mg/dL 10/15/2014 2:33 AM [facility] Bilirubin, Total 0.2 0.0 - 1.5 mg/dL 10/15/2014 2:33 AM [facility] Alkaline Phosphatase 126 40 - 150 U/L 10/15/2014 2:33 AM [facility] AST 43(H) 7 - 40 U/L 10/15/2014 2:33 AM [facility] Glucose 98 65 - 100 mg/dL 10/15/2014 2:33 AM [facility] BUN 44(H) 10 - 25 mg/dL 10/15/2014 2:33 AM [facility] Creatinine 2.79(H) 0.70 - 1.40 mg/dL 10/15/2014 2:33 AM [facility] Sodium 136 135 - 146 mmol/L 10/15/2014 2:33 AM [facility] Potassium 4.8 3.5 - 5.0 mmol/L 10/15/2014 2:33 AM [facility] Chloride 91(L) 98 - 110 mmol/L 10/15/2014 2:33 AM [facility] CO2 27 23 - 32 mmol/L 10/15/2014 2:33 AM [facility] Anion Gap 18(H) 0 - 15 mmol/L 10/15/2014 2:33 AM [facility] ALT 33 5 - 50 U/L 10/15/2014 2:33 AM [facility] eGFR- 29 10/15/2014 2:33 AM [facility] eGFR-All Other Races 24 . 10/15/2014 2:33 AM [facility] Comment: eGFR (Estimated GFR) Units [...] PM EDT [facility] Final Result [facility] [address] [place] [address] from Last 3 Months or Most Recently Relevant to Health Maintenance Insurance [employer] MEDICARE Care Teams Catering Associate Relationship Specialty Start Date End Date Thom Stern II, MD PCP - General Internal Medicine 06/03/14
--- OUTSIDE RECORDS SUMMARY | 2025-01-21 13:51 | XMS_ITS | Encounter Summary ---
Author Organization [employer] Sys tem Address [facility] [id number] [address] [place] [address] Care Team Providers Care Tech Writer Name Role Phone Sandip Woo DO Primary Care Provider [phone] Encounter Details Date Type Department Care Team (Late st Contact Info) Description 01/07/2025 Orders Only [facility] - Family Medicine [address] [place] [address] Ref Prov, [place] [address] Social History Tobacco Use Types Packs/Day Years [...] documented as of this encounter Care Teams Tech Writer Relationship Specialty Start Date End Date Sandip Woo DO [address] [id number] PCP - General Internal Medicine 01/12/23 documented as of this encounter
--- OUTSIDE RECORDS SUMMARY | 2025-01-21 13:51 | XMS_ITS | Encounter Summary ---
Author Organization [facility] Address [facility]-[id number] [address] [place] [address] Care Team Providers Care Circulation Manager Name Role Phone Sandip Woo DO Primary Care Provider [phone] Encounter Details Date Type Department Care Team (Late st Contact Info) Description 01/03/2023 Orders Only [facility] Internal [facility] - Family Medicine [address] [place] [address] External, Scanning Provider Social History Tobacco Use [...] 9:49 AM EDT) us Scanning Provider External [place] [facility] Final Result Performing Organization Address City/[facility] [employer] [facility] Phone Number MANUALLY TRANSCRIBED RESULTS * Multiple labs (10/01/2020 9:42 AM EDT) us Scanning Provider External [place] [facility] Final Result Performing Organization Address [facility] [employer] [facility] Phone Number MANUALLY TRANSCRIBED RESULTS documented in this encounter Visit Diagnoses Not on filedocumented in this encounter Care Teams Circulation Manager Relationship Specialty Start Date End Date Sandip Woo DO [address] [place] [address] PCP - General Internal Medicine 01/12/23 documented as of this encounter
--- OUTSIDE RECORDS SUMMARY | 2025-01-21 13:51 | XMS_ITS | Encounter Summary ---
Author Organization [employer] Sys tem Address [facility] [id number] [address] [place] [address] Care Team Providers Care Rouge Mixer Name Role Phone Sandip Woo DO Primary Care Provider [phone] Reason for Visit * Reason Comments Med Refill Encounter Details Date Type Department Care Team (Late st Contact Info) Description 07/20/2023 Refill [facility] - Family Medicine [address] [place] [address] Sandip Woo DO [address] [place] [address] Essential hypertension; Hyperlipidemia, unspecified hyperlipidemia type Social [...] documented as of this encounter Care Teams Rouge Mixer Relationship Specialty Start Date End Date Sandip Woo DO [address] [place] [address] PCP - General Internal Medicine 01/12/23 documented as of this encounter
--- OUTSIDE RECORDS SUMMARY | 2025-01-21 13:51 | XMS_ITS | Encounter Summary ---
Author Organization [employer] Sys tem Address [facility] [place]-[id number] [address] [place] [address] Care Team Providers Care Accounting Manager Controller Name Role Phone Sandip Woo DO Primary Care Provider [phone] Encounter Details Date Type Department Care Team (Late st Contact Info) Description 12/19/2023 Orders Only [facility] - Family Medicine [address] [place] [address] Ref Prov, [place] [address] Social History Tobacco Use Types Packs/Day Years [...] documented as of this encounter Care Teams Accounting Manager Controller Relationship Specialty Start Date End Date Sandip Woo DO [address] [id number] PCP - General Internal Medicine 01/12/23 documented as of this encounter
--- OUTSIDE RECORDS SUMMARY | 2025-01-21 13:51 | XMS_ITS | Encounter Summary ---
Author Organization [employer] Sys tem Address [facility] [place][id number] [address] [place] [address] Care Team Providers Care Global Security Architect Name Role Phone Sandip Woo DO Primary Care Provider [phone] Reason for Visit * Reason Comments Med Refill Encounter Details Date Type Department Care Team (Late st Contact Info) Description 10/18/2023 Refill [facility] - Family Medicine [address] [place] [address] Sandip Woo DO [address] [place] [address] Encounter for immunization Social History Tobacco Use [...] documented as of this encounter Care Teams Global Security Architect Relationship Specialty Start Date End Date Sandip Woo DO [address] [place] [address] PCP - General Internal Medicine 01/12/23 documented as of this encounter
--- OUTSIDE RECORDS SUMMARY | 2025-01-21 13:51 | XMS_ITS | Encounter Summary ---
Author Organization [employer] s tem Address [facility] [place]-[id number] [address] [place] [address] Care Team Providers Care Flight Test Supervisor Name Role Phone Sandip Woo DO Primary Care Provider [phone] Encounter Details Date Type Department Care Team (Late st Contact Info) Description 02/15/2024 Telephone [facility] - Family Medicine [address] [place] [address] Nitza Oneal CMA Social History Tobacco Use [...] documented as of this encounter Care Teams Flight Test Supervisor Relationship Specialty Start Date End Date Sandip Woo DO [address] [place] [address] PCP - General Internal Medicine 01/12/23 documented as of this encounter
--- OUTSIDE RECORDS SUMMARY | 2025-01-21 13:51 | XMS_ITS | Clinical Summary ---
Author Organization [facility] Address [address] [facility] [place] [address] Care Team Providers Care Can Closing Machine Tender Name Role Phone Sandip Woo MD Primary Care Provider [phone] Allergies Active Allergy Reactions Criticality Noted Date [...] file Insurance [employer] Care Teams Can Closing Machine Tender Relationship Specialty Start Date End Date Sandip Woo MD PCP - General Internal Medicine 03/28/23
--- OUTSIDE RECORDS SUMMARY | 2025-01-21 13:51 | XMS_ITS | Encounter Summary ---
Author Organization [facility] Address [address] [place] [address] Care Team Providers Care Luggage Repairer Name Role Phone Sandip Woo MD Primary Care Provider [phone] Encounter Details Date Type Department Care Team (Late st Contact Info) Description 06/09/2023 Abstract [facility] [address] [place] [phone] Inna Jefferson NP Social History Tobacco Use [...] on filedocumented in this encounter Care Teams Luggage Repairer Relationship Specialty Start Date End Date Sandip Woo MD PCP - General Internal Medicine 03/28/23 documented as of this encounter
--- OUTSIDE RECORDS SUMMARY | 2025-01-21 13:51 | XMS_ITS | Encounter Summary ---
Author Organization [employer] Sys tem Address [facility] [place][id number] [address] [place] [address] Care Team Providers Care Instrumentation Manager Name Role Phone Sandip Woo DO Primary Care Provider [phone] Reason for Visit * Reason Comments Med Refill Encounter Details Date Type Department Care Team (Late st Contact Info) Description 12/13/2024 Refill [facility] - Family Medicine [address] [place] [address] Sandip Woo DO [address] [place] [address] Non-seasonal allergic rhinitis, unspecified trigger; Type 2 diabetes mellitus without complication, without long-term current use of insulin ([facility]) Social History Tobacco Use Types Packs/Day Years [...] encounter Miscellaneous Notes * Telephone Encounter - aSndip Woo DO - 12/13/2024 1:32 PM EDT Duplicate request documented in this encounter Plan of Treatment Not on file documented as of this encounter Visit Diagnoses Diagnosis Non-seasonal allergic rhinitis, unspecified trigger Type 2 diabetes mellitus without complication, without long-term current use of insulin ([facility]) documented in this encounter Additional Health Concerns Assessment Noted Time PHQ-9 Depression Total Score: 0 06/05/19 25 12:55 PM EST documented as of this encounter Care Teams Instrumentation Manager Relationship Specialty Start Date End Date Sandip Woo DO [address] [place] [address] PCP - General Internal Medicine 01/12/23 documented as of this encounter
--- OUTSIDE RECORDS SUMMARY | 2025-01-21 13:51 | XMS_ITS | Encounter Summary ---
Author Organization [employer] Sys tem Address [facility] [id number] [address] [place] [address] Care Team Providers Care Steel Manager Name Role Phone Sandip Woo DO Primary Care Provider [phone] Encounter Details Date Type Department Care Team (Late st Contact Info) Description 01/03/2024 Orders Only [facility] - Family Medicine [address] [place] [address] External, Scanning Provider Social History Tobacco Use [...] documented as of this encounter Care Teams Steel Manager Relationship Specialty Start Date End Date Sandip Woo DO [address] [id number] PCP - General Internal Medicine 01/12/23 documented as of this encounter
--- OUTSIDE RECORDS SUMMARY | 2025-01-21 13:51 | XMS_ITS | Encounter Summary ---
Author Organization [employer] Sys tem Address [facility] [id number] [address] [place] [address] Care Team Providers Care Way Inspector Name Role Phone Sandip Woo DO Primary Care Provider [phone] Encounter Details Date Type Department Care Team (Late st Contact Info) Description 09/23/2023 Orders Only [facility] - Family Medicine [address] [place] [address] Sandip Woo DO [address] [place] [address] Type 2 diabetes mellitus without complication, without long-term current use of insulin ([facility]) (Primary Dx) Social History Tobacco [...] complication, without long-term current use of insulin ([facility] Primary documented in this encounter Additional Health Concerns Assessment Noted Time PHQ-9 Depression Total Score: 0 09/07/19 24 1:09 PM EDT documented as of this encounter Care Teams Way Inspector Relationship Specialty Start Date End Date Sandip Woo DO [address] [place] [address] PCP - General Internal Medicine 01/12/23 documented as of this encounter
--- OUTSIDE RECORDS SUMMARY | 2025-01-21 13:51 | XMS_ITS | Encounter Summary ---
Author Organization [employer] Sys tem Address [facility] [place][id number] [address] [place] [address] Care Team Providers Care Set Up Mechanic Name Role Phone Sandip Woo DO Primary Care Provider [phone] Encounter Details Date Type Department Care Team (Late st Contact Info) Description 10/18/2023 Orders Only [facility] - Family Medicine [address] [place] [address] Sandip Woo DO [address] [place] [address] Social History Tobacco Use Types Packs/Day Years [...] documented as of this encounter Care Teams Set Up Mechanic Relationship Specialty Start Date End Date Sandip Woo DO [address] [id number] PCP - General Internal Medicine 01/12/23 documented as of this encounter
--- OUTSIDE RECORDS SUMMARY | 2025-01-21 13:51 | XMS_ITS | Encounter Summary ---
Author Organization [employer] Sys tem Address [facility] [place][id number] [address] [place] [address] Care Team Providers Care Edging Machine Feeder Name Role Phone Sandip Woo DO Primary Care Provider [phone] Encounter Details Date Type Department Care Team (Late st Contact Info) Description 09/22/2023 Telephone [facility] - Family Medicine [address] [place] [address] CMA Social History Tobacco Use [...] documented as of this encounter Care Teams Edging Machine Feeder Relationship Specialty Start Date End Date Sandip Woo DO [address] [place] [address] PCP - General Internal Medicine 01/12/23 documented as of this encounter
--- OUTSIDE RECORDS SUMMARY | 2025-01-21 13:51 | XMS_ITS | Clinical Summary ---
Author Organization [employer] tem Address [facility] [id number] [address] [place] [address] Care Team Providers Care Electrical Assembly Supervisor Name Role Phone Sandip Woo Primary Care Provider [phone] Allergies Active Allergy Reactions Criticality Noted Date Comments Topiramate Headache,Other (See Comments) 2013 Severe headache Medications albuterol (PROVENTIL HFA;VENTOLIN HFA) 90 mcg/actuation inhaler INHALE 2 PUFFS BY MOUTH EVERY 4 HOURS NEEDED for SHORTNESS OF BREATH or FOR WHEEZING 4 Active aspirin 81 mg chewable tabletIndications: Chronic combined systolic and diastolic CHF (congestive heart failure) ([facility]) Chew 1 tablet (81 mg total) and swallow in the morning. 90 tablet 1 4 Active magnesium oxide 250 mg tabletIndications: Chronic combined systolic and diastolic CHF (congestive heart failure) ([facility]) Take 1 tablet (250 mg total) by mouth in the morning. 90 tablet 1 4 Active atorvastatin (LIPITOR) 40 mg tabletIndications: Type 2 diabetes mellitus without complication, without long-term current use of insulin ([facility]) Take 1 tablet (40 mg total) by mouth nightly. 90 tablet 1 5 Active carvediloL (COREG) 12.5 mg tabletIndications: Chronic combined systolic and diastolic CHF (congestive heart failure) ([facility]) Take 1 tablet (12.5 mg total) by mouth in the morning and 1 tablet (12.5 mg total) in the evening. Take with meals. 180 tablet 1 5 Active furosemide (LASIX) 40 mg tabletIndications: Chronic combined systolic and diastolic CHF (congestive heart failure) ([facility]) Take 1 tablet (40 mg total) by mouth daily. 30 tablet 11 5 Active losartan (COZAAR) 50 mg tabletIndications: Chronic combined systolic and diastolic CHF (congestive heart failure) ([facility]) Take 1 tablet (50 mg total) by mouth in the morning. 90 tablet 1 5 Active spironolactone (ALDACTONE) 25 mg tabletIndications: Chronic combined systolic and diastolic CHF (congestive heart failure) ([facility]) Take 1 tablet (25 mg total) by mouth in the morning. 90 tablet 5 Active dapagliflozin propanediol (FARXIGA) 10 mg tabletIndications: Chronic combined systolic and diastolic CHF (congestive heart failure) ([facility]) Take 1 tablet (10 mg total) by mouth in the morning. 120 tablet 2 5 Active baclofen 5 mg tabletIndications: Primary osteoarthritis of right shoulder Take 2 tablets by mouth 2 (two) times a day as needed (back spasm). 5 Active metFORMIN (GLUCOPHAGE) 1000 mg tabletIndications: Type 2 diabetes mellitus without complication, without long-term current use of insulin ([facility]) TAKE 1 TABLET BY MOUTH TWICE DAILY [...] - Family Medicine [address] [place] [address] Ref Prov, Not In System 12/13/2024 Refill [facility] - Family Medicine [address] [place] [address] Sandip Woo, Non-seasonal allergic rhinitis, unspecified trigger; Type 2 diabetes mellitus without complication, without long-term current use of insulin ([facility]) 12/04/2024 Telephone [facility] - Family Medicine [address] [place] [address] Shanelle Chung, [facility] 12/03/2024 Refill [facility] - Family Medicine [address] [place] [address] Sandip Woo, Non-seasonal allergic rhinitis, unspecified trigger 12/03/2024 Refill [facility] - Family Medicine [address] [place] [address] Sandip Woo DO Type 2 diabetes mellitus without complication, without long-term current use of insulin ([facility]); Non-seasonal allergic rhinitis, unspecified trigger from Last [...] 3 Months Insurance [employer] MEDICARE Care Teams Electrical Assembly Supervisor Relationship Specialty Start Date End Date Sandip Woo DO [address] [place] [address] PCP - General Internal Medicine 01/12/23
--- OUTSIDE RECORDS SUMMARY | 2025-01-21 13:51 | XMS_ITS | Encounter Summary ---
Author Organization [facility] tem Address [facility] [place] [place][id number] [address] [place] [address] Care Team Providers Care Echocardiograph Technician Name Role Phone Sandip Woo DO Primary Care Provider [phone] Reason for Referral * Consultation (Routine) - Closed Specialty Diagnoses / Procedures Referred By Otoniel cruz Referred To Contact Orthopaedic Surgery Diagnoses Primary osteoarthritis of right shoulder Sandip Woo DO [address] [place] [address] Phone: tel: fax: Kaveh Mayer DO Phone: tel: fax: Referral ID Status Reason Start Date Expiration Date V isits Requested Visits Authorized [id number] Closed Specialty Services Required 03/21/2023 03/20/2024 4 4 Encounter Details Date Type Department Care Team (Late st Contact Info) Description 03/21/2023 Orders Only [facility] - Family Medicine [address] [place] [address] Sandip Woo DO [address] [place], [place] [phone] Primary osteoarthritis of right shoulder (Primary Dx) [...] documented as of this encounter Care Teams Echocardiograph Technician Relationship Specialty Start Date End Date Sandip Woo DO [address] [place] [address] PCP - General Internal Medicine 01/12/23 documented as of this encounter
--- OUTSIDE RECORDS SUMMARY | 2025-01-21 13:51 | XMS_ITS | Encounter Summary ---
Author Organization [employer] Sys tem Address [facility] [place]-[id number] [address] [place] [address] Care Team Providers Care Head Sawyer Automatic Name Role Phone Sandip Woo DO Primary Care Provider [phone] Encounter Details Date Type Department Care Team (Late st Contact Info) Description 12/04/2024 Telephone [facility] - Family Medicine [address] [place] [address] Shanelle Chung CMA Social History Tobacco Use [...] 11:33 AM EDT Pharmacist Barbara from [facility] in [place] called inquiring if you could write pt's [...] documented as of this encounter Care Teams Head Sawyer Automatic Relationship Specialty Start Date End Date Sandip Woo DO [address] [id number] PCP - General Internal Medicine 01/12/23 documented as of this encounter
--- OUTSIDE RECORDS SUMMARY | 2025-01-21 13:51 | XMS_ITS | Encounter Summary ---
Author Organization [employer] Sys tem Address [facility] [place]-[id number] [address] [place] [address] Care Team Providers Care Basic Sciences Dean Name Role Phone Sandip Woo DO Primary Care Provider [phone] Encounter Details Date Type Department Care Team (Late st Contact Info) Description 06/06/2024 Telephone [facility] - Family Medicine [address] [place] [address] Brandi Hurley CMA Social History Tobacco Use [...] documented as of this encounter Care Teams Basic Sciences Dean Relationship Specialty Start Date End Date Sandip Woo DO [address] [id number] PCP - General Internal Medicine 01/12/23 documented as of this encounter
--- OUTSIDE RECORDS SUMMARY | 2025-01-21 13:51 | XMS_ITS | Encounter Summary ---
Author Organization [employer] Sys tem Address [facility] [place]-[id number] [address] [place] [address] Care Team Providers Care Career Development Coordinator Name Role Phone Sandip Woo DO Primary Care Provider [phone] Encounter Details Date Type Department Care Team (Late st Contact Info) Description 02/23/2024 Telephone [facility] - Family Medicine [address] [place] [address] CMA Social History Tobacco Use [...] documented as of this encounter Care Teams Career Development Coordinator Relationship Specialty Start Date End Date Sandip Woo DO [address] [place] [address] PCP - General Internal Medicine 01/12/23 documented as of this encounter
--- OUTSIDE RECORDS SUMMARY | 2025-01-21 13:51 | XMS_ITS | Encounter Summary ---
Author Organization [facility] Address [address] [place] [address] Care Team Providers Care Food Safety Specialist Name Role Phone Sandip Woo MD Primary Care Provider [phone] Encounter Details Date Type Department Care Team (Late st Contact Info) Description 03/24/2023 Orders Only [facility] [address] [place] [address] Sandip Woo MD [address] [place] [address] Social History Tobacco Use Types Packs/Day Years [...] on filedocumented in this encounter Care Teams Food Safety Specialist Relationship Specialty Start Date End Date Sandip Woo MD PCP - General Internal Medicine 03/28/23 documented as of this encounter
--- OUTSIDE RECORDS SUMMARY | 2025-01-21 13:52 | XMS_ITS | Encounter Summary ---
Author Organization [employer] Sys tem Address [facility] [id number] [address] [place] [address] Care Team Providers Care Manager Of Revenue Name Role Phone Sandip Woo DO Primary Care Provider [phone] Encounter Details Date Type Department Care Team (Late st Contact Info) Description 01/19/2024 Telephone [facility] - Family Medicine [address] [place] [address] Nitza Oneal CMA Social History Tobacco Use [...] as of this encounter Care Teams Manager Of Revenue Relationship Specialty Start Date End Date Sandip Woo DO [address] [place] [address] PCP - General Internal Medicine 01/12/23 documented as of this encounter
--- OUTSIDE RECORDS SUMMARY | 2025-01-21 13:52 | XMS_ITS | Encounter Summary ---
Author Organization [employer] Sys tem Address [facility] [id number] [address] [place] [address] Care Team Providers Care Mortgage Operations Manager Name Role Phone Sandip Woo DO Primary Care Provider [phone] Encounter Details Date Type Department Care Team (Late st Contact Info) Description 01/06/2024 Orders Only [facility] - Family Medicine [address] [place] [address] External, Scanning Provider Social History Tobacco Use [...] documented as of this encounter Care Teams Mortgage Operations Manager Relationship Specialty Start Date End Date Sandip Woo DO [address] [place] [address] PCP - General Internal Medicine 01/12/23 documented as of this encounter
--- OUTSIDE RECORDS SUMMARY | 2025-01-21 13:52 | XMS_ITS | Encounter Summary ---
Author Organization [employer] Sys [employer] Address [facility] [place]-[id number] [address] [place] [address] Care Team Providers Care Chicken Catcher Name Role Phone Sandip Woo DO Primary Care Provider [phone] Encounter Details Date Type Department Care Team (Late st Contact Info) Description 01/24/2024 Telephone [facility] - Family Medicine [address] [place] [address] CMA Social History Tobacco Use [...] CMA - 01/24/2024 2:08 PM EDT Pts [facility] nurse called to let you know she will be discharging this pt from [facility] for repeat non compliance also pt [...] back stated pt is refusing any futher [facility], last week he was having shortness [...] systolic and diastolic CHF (congestive heart failure) ([facility]) documented in this encounter Additional Health Concerns Assessment Noted Time PHQ-9 Depression Total Score: 9 01/16/20 24 4:32 PM EDT documented as of this encounter Care Teams Chicken Catcher Relationship Specialty Start Date End Date Sandip Woo DO [address] [place] [address] PCP - General Internal Medicine 01/12/23 documented as of this encounter
[2025-01-21 14:31] LABS: Hematocrit 41.7 % (42.0-54.0); Hemoglobin 13.1 g/dL (14.0-18.0); Immature Granulocytes Abs Auto 0.05 10^3/uL (0.00-0.03); Immature Granulocytes Pct Auto 0.5 % (0.0-0.5); Lymphocytes Absolute Auto 1.6 10^3/uL (1.2-3.8); Mean Corpuscular HGB Conc 31.4 g/dL (29.9-35.2); Mean Corpuscular Hemoglobin 27.0 pg (25.9-34.0); Mean Corpuscular Volume 86.0 fL (80.0-94.0); Platelet Count 265 10^3/uL (150-450); Red Blood Count 4.85 10^6/uL (4.70-6.10); White Blood Count 9.5 10^3/uL (4.0-11.0)
== END 2025-01-21 13:48 | disposition home or self-care (01) ==
LOC: LAB 13:48
PROVIDERS: PCP Family Medicine
DX: I50.32 Chronic diastolic (congestive) heart failure (principal)
CPT/HCPCS: 36415; 85025

== ENCOUNTER 2025-03-11 13:08 | Inpatient (IN) | payer MEDICARE, SELFPAY ==
--- OUTSIDE RECORDS SUMMARY | 2024-12-18 05:30 | XMS_ITS ---
Author Organization [facility] in [place] Address [address] [place] [address] Care Team Providers Care Newspaper Vendor Name Role Phone Chris Breen Primary Care Provider REASON FOR VISIT Establish, Hosp d/c--12/14 Encounters Encounter Location Date Provider Diagnosis [place] [address] [place] [address] 12/18/2024 Chris Breen Plan Of Treatment No Information Progress Notes * Cristobal GARCIA ADOB: 5 (59 yo M)Acc No.[id number]:12/18/2024 UNLOCKED PROGRESS NOTE New Patient Patient: Cristobal JEWELL Provider: Rosita Breen MD (TTC) :1965 A ge:59 Y S ex:Male Date:12/18/2024 Address:[address] [place], [place] [id number] Subjective: * Chief Complaints: * 1 . Establish, Hosp d/c--12/14. * Medical History: Objective: * Vitals: Assessment: Plan: * Treatment: * * Electronic signature of Chris Breen MD, [id number] on 03/11/2025 at 01:24 PM EDT Sign off status: Pending Visit Status: C ANC (Cancelled) * Provider: Rosita Breen MD (TTC) Date: 0 12/18/2024 Generated for Printi ng/Faxing/eTransmitting on: 1 01:24 PM EDT
--- OUTSIDE RECORDS SUMMARY | 2025-01-04 09:00 | XMS_ITS ---
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 [address] [place] [address] 01/04/2025 Chris Breen Plan Of Treatment No Information Progress Notes * Cristobal SANTANA ADOB: 5 (59 yo M)Acc No.[id number]:01/04/2025 UNLOCKED PROGRESS NOTE New Patient Patient: Cristobal JEWELL Provider: Rosita Breen MD (TTC) :1965 A ge:59 Y S ex:Male Date:01/04/2025 Address:[address] [place], [place] [id number] Subjective: * Chief Complaints: * 1 . 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 * Medical History: Objective: * Vitals: Assessment: Plan: * Treatment: * * Electronic signature of Chris Breen MD, [phone] on 03/11/2025 at 01:24 PM EDT Sign off status: Pending Visit Status: C ANC (Cancelled) * Provider: Rosita Breen MD (TTC) Date: 0 01/04/2025 Generated for Printi ng/Faxing/eTransmitting on: 1 01:24 PM EDT
--- OUTSIDE RECORDS SUMMARY | 2025-03-08 09:45 | XMS_ITS ---
Author Organization The [facility] [place] Address [address] [place] [address] Care Team Providers Care Fleet Operations Manager Name Role Phone Chris Breen Primary Care Provider [phone] Allergies Allergen (clinical drug ingredient) Drug/Non Drug Allergy documented on EMR Reaction Allergy Type Onset Date Status topiramate Topamax headaches Drug Allergy Active REASON FOR VISIT URI, night sweats, hard breathing, lack of urine flow, Recent stay at [facility] for CHF and Pneumonia- inpatient both times for 5 days, Has Cardio appointment next Tuesday- [facility] Cardio- new patient appointment Medications Medication SIG (Take, Route, Frequency, Duration) Notes Start Date End Date Status Blood Glucose Monitor System w/Device use device Dx:E11.9 daily to monitor blood glucose level 01/11/2025 Active Azithromycin 250 MG 2 tabs today then 1 tab Orally daily; Duration: 5 days 02/27/2025 Active Atorvastatin Calcium 40 MG 1 tablet Oral ly Once a day; Duration: 90 days Active Aspirin Low Dose 81 MG CHEW 1 TABLET BY MOUTH and swallow IN THE MORNING Oral; Duration: 90 Days Active Amoxicillin-Pot Clavulanate 875-125 MG 1 tablet Orally every 12 hrs; Duration: 10 days 03/08/2025 Active Test Strips - as directed Dx: Diab etes Type II Once daily; Duration: 90 days 01/11/2025 Active Spironolactone 25 MG TAKE 1 TABLET BY [facility] DAILY Oral; Duration: 90 Days Active predniSONE 20 MG 2 tablets Orally Onc e a day; Duration: 5 days 02/27/2025 Active metFORMIN HCl 1000 MG 1 tablet with a me al Oral BID; Duration: 90 days Active predniSONE 20 MG 3 tablets Orally Onc e a day; Duration: 5 days 03/08/2025 Active HYDROcodone-Acetaminophen 5-325 MG 1 tablet as needed Orally every 6 hrs; Duration: 14 days 03/01/2025 Active Glimepiride 2 MG 1 tablet with breakf ast or the first main meal of the day Orally Once a day; Duration: 90 days Active Magnesium 250 MG 1 tablet with a meal Orally Once a day Active Losartan Potassium 50 MG 1 tablet Orally Once a day; Duration: 90 days Active Lancets 30G - Use 1 lancet E11.9 o nce daily; Duration: 90 01/11/2025 Active Cetirizine HCl 10 MG TAKE 1 TABLET BY [facility] IN THE MORNING Oral; Duration: 30 Days Active Carvedilol 12.5 MG Take 1 tablet Oral T wice a day; Duration: 90 days Active Furosemide 40 MG 1 tablet Orally Once a day; Duration: 90 days Active Cetirizine HCl 10 MG 1 tablet Orally Onc e a day; Duration: 30 days 01/11/2025 Active Social History Tobacco Use: Social History Observation Description Date Details (start date - stop date) Never Smoker NA - NA Tobacco Control (Standard) Question Answer Notes Tobacco use: Nonsmoker Problems Problem Type SNOMED Code ICD Code Onset Dates Problem Status W/U Status Risk Notes Problem Acute bronchiolitis (2374995) Acute bronchiolitis (J21.9) Active confirmed Vital Signs Height 66 in 03/08/2025 Blood pressure systolic 124 mm Hg 03/08/20 25 Blood pressure diastolic 68 mm Hg 025 Temperature 96.8 degrees Fahrenheit 03/08/20 25 Heart Rate 78 /min 03/08/2025 Oximetry 92 % 03/08/2025 Encounters Encounter Location Date Provider Diagnosis [facility] [address] [place] [address] 03/08/2025 Chris Breen Acute bronchiolitis J21.9 Assessments Encounter Date Diagnosis (ICD Code) Assessment Notes Treatment Notes Treatment Clinical Notes Section Notes 03/08/2025 Acute bronchiolitis (ICD-10 - J21.9) Plan Of Treatment Medication Medication Name Sig Start Date Stop Date Notes Amoxicillin-Pot Clavulanate 875-125 MG 1 tablet Orally every 12 hrs; Duration: 10 days 03/08/2025 predniSONE 20 MG 3 tablets Orally Onc e a day; Duration: 5 days 03/08/2025 Progress Notes * Cristobal GARCIA ADOB: 5 (59 yo M)Acc No.[id number]:03/08/2025 UNLOCKED PROGRESS NOTE Progress Note Patient: Cristobal JEWELL Provider: Rosita Breen ([facility])MD :1965 A ge:59 Y S ex:Male Date:03/08/2025 Address:[address] [place], [place] [id number] Check In:01:44 PM ESTCheck O ut:01:42 PM EST Subjective: * Chief Complaints: * 1 . URI, night sweats, hard breathing, lack of urine flow. 2. Recent stay at [facility] for CHF and Pneumonia- inpatient both times for 5 days. 3. Has Cardio appointment next Tuesday- [facility] Cardio- new patient appointment. * ROS: E ENT: hearing changes d [...] enies. S wollen joints d enies. * Medical History: M edical History Verified. * Surgical History: a ppendectomy . * Hospitalization/Major Diagno stic Procedure: C HF 2024, Pneumonia 2024. * Family History: F ather: , diagnosed with Diabetes. M other: , diagnosed with Heart Disease. B rother(s): alive. S ister(s): . 2 brother(s) , 1 sister(s) . . * Social History: T obacco Use: T obacco Control (Standard) T obacco use: N onsmoker * Medications: T aking Aspirin Low Dose(Aspirin) 81 MG Tablet Chewable CHEW 1 TABLET BY MOUTH and swallow IN THE MORNING Oral , Taking Atorvastatin Calcium 40 MG Tablet 1 tablet Orally Once a day , Taking Azithromycin 250 MG Tablet 2 tabs today then 1 tab Orally daily , Taking Blood Glucose Monitor System w/Device Kit use device Dx:E11.9 daily to monitor blood glucose level , Taking Carvedilol 12.5 MG Tablet Take 1 tablet Oral Twice a day , Taking Cetirizine HCl 10 MG Tablet TAKE 1 TABLET BY MOUTH IN THE MORNING Oral , Taking Cetirizine HCl 10 MG Tablet 1 tablet Orally Once a day , Taking Furosemide 40 MG Tablet 1 tablet Orally Once a day , Taking Glimepiride 2 MG Tablet 1 tablet with breakfast or the first main meal of the day Orally Once a day , Taking HYDROcodone-Acetaminophen 5-325 MG Tablet 1 tablet as needed Orally every 6 hrs , Taking Lancets 30G - Miscellaneous Use 1 lancet E11.9 once daily , Taking Losartan Potassium 50 MG Tablet 1 tablet Orally Once a day , Taking Magnesium 250 MG Tablet 1 tablet with a meal Orally Once a day , Taking metFORMIN HCl 1000 MG Tablet 1 tablet with a meal Oral BID , Taking predniSONE 20 MG Tablet 2 tablets Orally Once a day , Taking Spironolactone 25 MG Tablet TAKE 1 TABLET BY MOUTH DAILY Oral , Taking Test Strips - - as directed Dx: Diabetes Type II Once daily , Medication List reviewed and reconciled with the patient * Allergies: T opamax: headaches. Objective: * Vitals: W t: Not Taken - Patient Unable, Ht: 66 in, BP:124/68mm Hg, Temp:96.8F, HR:78/min, Oxygen sat %:92%, Ht-cm: 167.64 cm. * Examination: P hysical Exam: GENERAL: w [...] mood and affect. Assessment: * Assessment: 1. A shardae bronchiolitis - J21.9 (Primary) Plan: * Treatment: * Procedure Codes: 3 078F DIAST BP < 80 MM HG, 3074F SYST BP LT 130 MM HG * * Electronic signature of Chris Breen MD, [phone] on 03/11/2025 at 01:24 PM EDT Sign off status: Pending Visit Status: Dennis DEGROOT (Check Out) * Provider: Rosita Breen (TTC)MD Date: Generated for Printi ng/Faxing/eTransmitting on: 01:24 PM EDT History and Physical Notes * Examination Category Sub-Category Detail Notes Category Not [...]
[2025-03-11] VITALS (27 sets, daily range): BP systolic 109–155; BP diastolic 60–85; PULSE 62–68; TEMP 36.3–37; O2SAT 90–99; BMI 74.2; BMI 72.2
--- NOTE | 2025-03-11 13:14 | ECG_ITS ---
The 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 Measurements Intervals [place] Rate: 65 P: 46 TN: 208 QRS: 62 QRSD: 102 T: -2 QT: 406 QTc: 418 Interpretive Statements 1100 Sinus rhythm 3114 Cannot rule out anterior myocardial infarction, age undetermined 8102 Low QRS voltage in chest leads 9150 abnormal ECG Compared to ECG 12/31/2024 14:28:53 Myocardial infarct finding now present Low QRS voltage now present Right-axis deviation no longer present Electronically Signed On 03-11-2025 18:48:05 EDT by AARON MONTERO M.D.
--- NOTE | 2025-03-11 13:14 | XR_ITS ---
The [address] [address] Patient Name: TANIA SANTANA MRN: [id number] date: 1965 Sex: M Assigned Patient Location: ER Current Patient Location: ED.MAIN Accession/Order Number: [id number] Exam Date: 03/11/2025 13:42 Report Date: 03/11/2025 14:01 At the request of: RAMON MARROQUIN MD Procedure: XR chest 1V Single view chest: CLINICAL HISTORY: SOB COMPARISON: Chest 12/31/2024 FINDINGS: Cardiomegaly with vascular congestion is unchanged. No consolidation pneumothorax pleural effusion or free air. XR/XR chest 1V IMPRESSION: CHF FINDINGS, UNCHANGED. Impression dictated by: Nelson Acuna Jr., D.OTeena 03/11/2025 2:01 PM Dictation Location: [place] [address] Electronically authenticated by: [id number] Y Date: 03/11/2025 14:01
--- NOTE | 2025-03-11 13:15 | ED.GENADUL1 ---
HPI HPI - General Adult General Chief complaint: Shortness of Breath/Dyspnea Stated complaint: SOB Time Seen by Provider: 03/11/25 13:10 Source: patient Mode of arrival: ambulance Limitations: no limitations History of Present Illness HPI narrative: 59-year-old male presented to the emergency department for shortness of breath. He has been this way since last week and 3 days ago he saw his doctor who put him on 2 prescriptions but he does not know what they are. He has been having a cough and feeling short of breath. No fever or chest pain or hemoptysis. He does not have a history of COPD but states he has a history of bronchitis. He reports a history of CHF in the past. Related Data Home Medications ?Medication ?Instructions ?Recorded ?Confirmed metformin 1,000 mg tablet 1,000 mg PO BID 12/16/23 03/11/25 cetirizine 10 mg tablet 10 mg PO QAM 12/11/24 03/11/25 furosemide 40 mg tablet 40 mg PO DAILY 12/11/24 03/11/25 magnesium oxide 400 mg (241.3 mg 250 mg PO DAILY 12/11/24 03/11/25 magnesium) tablet losartan 50 mg tablet 50 mg PO DAILY 12/31/24 03/11/25 amoxicillin 875 mg-potassium 1 tab PO Q12H 03/11/25 03/11/25 clavulanate 125 mg tablet glimepiride 2 mg tablet 2 mg PO .QD 03/11/25 03/11/25 prednisone 20 mg tablet 60 mg PO .QD 03/11/25 03/11/25 Previous Rx's ?Medication ?Instructions ?Recorded albuterol sulfate 90 mcg/actuation 2 inh inhalation Q4H PRN shortness 12/18/23 aerosol inhaler of breath or wheezing #6.7 grams aspirin 81 mg chewable tablet 81 mg PO QD #30 tabs 01/09/24 atorvastatin 40 mg tablet 40 mg PO QHS #60 tabs 01/09/24 carvedilol 12.5 mg tablet 12.5 mg PO BID #60 tabs 01/09/24 spironolactone 25 mg tablet 25 mg PO BID #60 tabs 01/07/25 Allergies Allergy/AdvReac Type Severity Reaction Status Date / Time topiramate (From Topamax) AdvReac Intermediate Altered Verified 03/11/25 13:10 Sense of Taste Opioid HPI Opioid Management Most Recent Opioid Data: Last Pain Scale 0 01/07/25, 08:39 Last Pain Intensity 7 01/06/24, 10:21 Last ORT Total Score 0 12/31/24, 17:02 Last ORT Risk Category Low Risk 12/31/24, 17:02 Review of Systems ROS Narrative A ten point review of systems is negative except as noted above. [facility] Medical History (Updated 03/11/25 @ 15:26 by Yovanny Cherry MD) Acute systolic (congestive) heart failure ?I50.21 - Acute systolic (congestive) heart failure (ICD-10) Morbid obesity ?E66.01 - Morbid (severe) obesity due to excess calories (ICD-10) Acute on chronic congestive heart failure ?I50.9 - Heart failure, unspecified (ICD-10) Acute combined systolic (congestive) and diastolic (congestive) heart failure ?I50.41 - Acute combined systolic (congestive) and diastolic (congestive) heart failure (ICD-10) Diabetes mellitus type 2 with complications ?E11.8 - Type 2 diabetes mellitus with unspecified complications (ICD-10) Anemia in chronic kidney disease ?N18.9 - Chronic kidney disease, unspecified (ICD-10) ?D63.1 - Anemia in chronic kidney disease (ICD-10) Chronic kidney disease, stage III (moderate) ?N18.30 - Chronic kidney disease, stage 3 unspecified (ICD-10) COPD (chronic obstructive pulmonary disease) ?J44.9 - Chronic obstructive pulmonary disease, unspecified (ICD-10) Moderate protein-calorie malnutrition ?E44.0 - Moderate protein-calorie malnutrition (ICD-10) Hypertension ?I10 - Essential (primary) hypertension (ICD-10) Pulmonary edema ?J81.1 - Chronic pulmonary edema (ICD-10) Anasarca ?R60.1 - Generalized edema (ICD-10) Abnormal colonoscopy ?R93.3 - Abnormal findings on diagnostic imaging of other parts of digestive tract (ICD-10) Surgical History History of appendectomy ?Z90.49 - Acquired absence of other specified parts of digestive tract (ICD-10) Family History (Updated 12/11/24 @ 17:00 by Payton Pitts) Father Diabetes Mother CHF (congestive heart failure) Other Family history of CHF (congestive heart failure) Family history of diabetes mellitus Family history of hypertension Social History (Updated 12/11/24 @ 17:01 by aPyton Pitts) Within the past year, how often did you have a drink containing alcohol: never Within the past year, how often did you have six or more drinks on one occasion: never Score interpretation: A score less than 4 is consistent with normal alcohol consumption. Smoking status: Never smoker Second hand tobacco smoke exposure: No Non-prescribed substance use: denies use Previous occupational history: retired Highest level of school completed/degree received: high school graduate Are you now , , , , never or living with a partner: never In a typical week, how many times do you talk on the telephone with family, friends, or neighbors: 3 or more times per week How often do you get together with friends or relatives: 3 or more times per week How often do you attend episcopalian or buddhism services: never Do you belong to any clubs or organizations such as episcopalian groups unions, [employer] or athletic groups, or school groups: no Total score: 1 Score interpretation: A score of less than or equal to 1 indicates the most socially isolated. Little interest or pleasure in doing things: not at all Feeling down, depressed, or hopeless: not at all Feel stressed/tense/nervous/anxious/difficulty sleeping: not at all Due to disability, difficulty making decisions: No Do you think of yourself as: straight/heterosexual Gender Identity: male Exam Narrative Exam Narrative: Nurses note and vital signs reviewed and patient is not hypoxic. General:The patient appears well and in no apparent distress.Patient is resting comfortably on cart. Skin:Warm, dry, no pallor noted.There is no rash noted. Head:Normocephalic, atraumatic Eye: Normal conjunctiva, no drainage Ears, Nose, Mouth, and Throat: oral mucosa is moist. Nares patent. Cardiovascular:Regular Rate and Rhythm Respiratory:Patient is in no distress, breath sounds are quite distant due to body morphology but breath sounds are equal. GI: Obese and not apparently tender Musculoskeletal: No joint swelling Neurological:A&O, normal speech Psychiatric:Cooperative Constitutional Vital Signs, click to edit/add: Last Vital Signs Temp 98.6 F 03/11/25 13:10 Pulse 62 03/11/25 14:30 Resp 29 H 03/11/25 14:30 BP 155/75 H 03/11/25 14:30 Pulse Ox 97 03/11/25 14:30 O2 Del Method Nasal Cannula 03/11/25 13:10 O2 Flow Rate 3 03/11/25 13:10 Course Vital Signs Vital signs: Vital Signs Temperature 98.6 F 03/11/25 13:10 Pulse Rate 67 03/11/25 13:10 Respiratory Rate 24 H 03/11/25 13:10 Blood Pressure 115/67 03/11/25 13:10 Pulse Oximetry 92 L 03/11/25 13:10 Oxygen Delivery Method Nasal Cannula 03/11/25 13:10 Oxygen Delivery Flow Rate 3 03/11/25 13:10 Temperature 98.6 F 03/11/25 13:10 Pulse Rate 62 03/11/25 14:30 Respiratory Rate 29 H 03/11/25 14:30 Blood Pressure 155/75 H 03/11/25 14:30 Pulse Oximetry 97 03/11/25 14:30 Oxygen Delivery Method Nasal Cannula 03/11/25 13:10 Oxygen Delivery Flow Rate 3 03/11/25 13:10 Medical Decision Making MDM Narrative Medical decision making narrative: The patient has congestive heart failure but also has acute kidney injury. I have spoken to Dr. He we agreed that we will give him 40 mg of Lasix IV here and the patient will be admitted. No evidence of pneumonia. Patient is somewhat drowsy but I am able to wake him up and speak to him and have a conversation. His bicarb is also normal and I have no suspicion of acidosis in this patient. Treatment diagnosis and disposition were discussed with the patient. Differential Diagnosis Differential Diagnosis: CHF, pneumonia, COVID, influenza Lab Data Lab results reviewed: Yes I reviewed the patient's lab results Labs: Lab Results 03/11/25 03/11/25 Range/Units 13:20 13:28 WBC 10.1 (4.0-11.0) 10^3/uL RBC 5.30 (4.70-6.10) 10^6/uL Hgb 13.6 L (14.0-18.0) g/dL Hct 45.0 (42.0-54.0) % MCV 84.9 (80.0-94.0) fL MCH 25.7 L (25.9-34.0) pg MCHC 30.2 (29.9-35.2) g/dL RDW 15.8 H (11.0-15.0) % Plt Count 231 (150-450) 10^3/uL MPV 9.6 (9.5-13.5) fL Neut % (Auto) 86.3 H (43.0-75.0) % Lymph % (Auto) 8.5 L (20.5-60.0) % [place] % (Auto) 4.1 (1.7-12.0) % Eos % (Auto) 0.0 L (0.9-7.0) % Baso % (Auto) 0.1 L (0.2-2.0) % Neut # (Auto) 8.7 H (1.4-6.5) 10^3/uL Lymph # (Auto) 0.9 L (1.2-3.8) 10^3/uL [place] # (Auto) 0.4 (0.3-0.8) 10^3/uL Eos # (Auto) 0.0 (0.0-0.7) 10^3/uL Baso # (Auto) 0.0 (0.0-0.1) 10^3/uL Abs Immat Gran (auto) 0.10 H (0.00-0.03) 10^3/uL Imm/Tot Granulo (auto) 1.0 H (0.0-0.5) % Sodium 140 (136-145) mmol/L Potassium 5.4 H (3.5-5.1) mmol/L Chloride 101 (98-107) mmol/L Carbon Dioxide 27.5 (21.0-32.0) mmol/L Anion Gap 16.9 BUN 71.0 H (7.0-18.0) mg/dL Creatinine 2.15 H (0.70-1.30) mg/dL Est GFR ( Amer) 38 L (>=60 mL/min/1.73m^2) Est GFR (Non-Af Amer) 32 L (>=60 mL/min/1.73m^2) BUN/Creatinine Ratio 33.0 Glucose 145 H (74-106) mg/dL Calcium 8.6 (8.5-10.1) mg/dL Troponin I High Sens 67.0 (4.0-76.1) pg/mL NT-Pro-B Natriuret Pep 6610.0 H* (<=900.0) pg/mL Influenza Type A Ag Negative Influenza Type B Ag Negative SARS-CoV-2 Ag (CV2AG) Negative (NEGATIVE) Imaging Data Chest x-ray: Radiologist's impression: ITS Impressions Chest X-Ray 03/11/25 13:14 IMPRESSION: CHF FINDINGS, UNCHANGED. Impression dictated by: Nelson Acuna Jr., D.O. 03/11/2025 2:01 PM Dictation Location: [facility] Electronically authenticated by: [id number] Y Date: 03/11/2025 14:01 ECG Data Attestation: I personally reviewed and interpreted this ECG as follows: (EKG on my interpretation shows sinus rhythm with rate of 65 and no acute change) Critical Care Time Critical Care Time Critical Care Time: Yes Total Critical Care Time: 35 Attestation: Due to the high probability of sudden and clinically significant deterioration in the patient's condition he/she required the highest level of my preparedness to intervene urgently I provided critical care time including documentation time, medication orders and management, reevaluation, vital sign assessment, ordering and reviewing of lab tests, ordering and reviewing of x-ray studies, and admission orders. Aggregate critical care time is 35 minutes including only time during which I was engaged in work directly related to his/her care and did not include time spent treating other patients simultaneously. Discharge Plan Discharge Chief Complaint: Shortness of Breath/Dyspnea Clinical Impression: CHF (congestive heart failure), Acute kidney injury Patient Disposition: Admitted As Inpatient Time of Disposition Decision: 15:26 Condition: Fair
--- OUTSIDE RECORDS SUMMARY | 2025-03-11 13:24 | XMS_ITS | Encounter Summary ---
Author Organization [facility] Address [id number] [place] [address] Care Team Providers Care Hardware Technician Name Role Phone Sandip Woo DO Primary Care Provider Encounter Details Date Type Department Care Team (Late st Contact Info) Description 06/06/2024 Telephone [facility] Internal Medicine - Family Medicine [address] [place] [id number] Brandi Hurley CMA Social History Tobacco Use [...] Time PHQ-9 Depression Total Score: 0 06/05/19 12:55 PM EST documented as of this encounter Care Teams Hardware Technician Relationship Specialty Start Date End Date Sandip Woo DO [address] [place] [id number] PCP - General Internal Medicine 01/12/23 02/17/25 documented as of this encounter
--- OUTSIDE RECORDS SUMMARY | 2025-03-11 13:24 | XMS_ITS | Patient Health Record ---
Author Organization The [facility] in [place] Address [address] [place] [address] Care Team Providers Care Jewelry Engraver Name Role Phone Chris Breen Primary Care Provider Allergies Allergen (clinical drug ingredient) Drug/Non Drug Allergy documented on EMR Reaction Allergy Type Onset Date Status topiramate Topamax headaches Drug Allergy Active Results Component Value Reference Range Notes CBC AUTO DIFF Reviewed date:01/21/2025 04:02:12 PM Interpretation: Performing Lab: Notes/Report: [facility] , White Blood Count 9.5 4.0-11.0 10 3/uL Red Blood Count 4.85 4.70-6.10 10 6/uL Hemoglobin 13.1 14.0-18.0 g/dL Hematocrit 41.7 42.0-54.0 % Mean Corpuscular Volume 86.0 80.0-94.0 fL Mean Corpuscular Hemoglobin 27.0 25.9-34.0 pg Mean Corpuscular HGB Conc 31.4 29.9-35.2 g/dL Red Cell Distribution Width 14.9 11.0-15.0 % Platelet Count 265 150-450 10 3/uL Mean Platelet Volume 10.2 9.5-13.5 fL Neutrophils Percent Auto 75.6 43.0-75.0 % Lymphocytes Percent Auto 16.6 20.5-60.0 % Monocytes Percent Auto 5.3 1.7-12.0 % Eosinophils Percent Auto 1.8 0.9-7.0 % Basophils Percent Auto 0.2 0.2-2.0 % Immature Granulocytes Pct Auto 0.5 0.0-0.5 % Neutrophils Absolute Auto 7.2 1.4-6.5 10 3/uL Lymphocytes Absolute Auto 1.6 1.2-3.8 10 3/uL Monocytes Absolute Auto 0.5 0.3-0.8 10 3/uL Eosinophils Absolute Auto 0.2 0.0-0.7 10 3/uL Basophils Absolute Auto 0.0 0.0-0.1 10 3/uL Immature Granulocytes Abs Auto 0.05 0.00-0.03 10 3/uL Performing Lab: see note ML - [facility] FREE T3 Reviewed date:01/21/2025 04:02:12 PM Interpretation: Performing Lab: Notes/Report: [facility] Free T3 2.53 2.18-3.98 pg/mL Performing Lab: see note - [facility] PROF 14(COMP METB) Reviewed date:01/21/2025 04:02:12 PM Interpretation: Performing Lab: Notes/Report: [facility] , Sodium 142 136-145 mmol/L Potassium 4.6 3.5-5.1 mmol/L Chloride 104 98-107 mmol/L Carbon Dioxide 33.1 21.0-32.0 mmol/L Anion Gap 9.5 Glucose 145 74-106 mg/dL Blood Urea Nitrogen 26.0 7.0-18.0 mg/dL Creatinine 1.27 0.70-1.30 mg/dL Estimated GFR ( Greta >60 >=60 mL/mi n/1.73m 2 Estimated GFR (Non- Leann 58 >=60 mL/mi n/1.73m 2 BUN Creatinine Ratio 20.5 Calcium 8.7 8.5-10.1 mg/dL Bilirubin Total 0.5 0.2-1.0 mg/dL Aspartate Amino Transferase 14 15-37 U/L Alanine Aminotransferase 23 16-63 U/L Alkaline Phosphatase 110 46-116 U/L Total Protein 7.1 6.4-8.2 g/dL Albumin Level 3.1 3.4-5.0 g/dL Globulin 4.0 Albumin Globulin Ratio 0.8 Performing Lab: see note ML - [facility] T4 Reviewed date:01/21/2025 04:02:12 PM Interpretation: Performing Lab: Notes/Report: [facility] , T4 Thyroxine 7.10 4.50-12.10 ug/dL Performing Lab: see note ML - [facility] LB TSH Reviewed date:01/21/2025 04:02:12 PM Interpretation: Performing Lab: Notes/Report: [facility] , Thyroid Stimulating Hormone 2.366 0.358-3.740 u IU/mL Performing Lab: see note ML - [facility] LB ECG 12 lead (Not yet reviewe d by provider) Interpretation: Performing Lab: Notes/Report: Source Facility: [facility]-[address] [place] [address] [place] [address] Electrocardiograph Report Draft Patient: CRISTOBAL GARCIA MR#: [id number] : 1965 Acct:[id number] Age/Sex: 59 / M ADM Date: Loc: ER Attending Dr: Ordering Physician: Yovanny Cherry M.D. Date of Service: 03/11/25 Procedure(s): ECG 12 lead Accession Number(s): [id number] cc: [facility] Test Date: 2025-03-11 Pat Name: CRISTOBAL GARCIA Department: Room: - Gender: Male International Affairs Vice President: : 1965 Requested By: 1030 Order Number: [id number] Reading MD: Measurements Intervals [place] Rate: 65 P: 46 OR: 208 QRS: 62 QRSD: 102 T: -2 QT: 406 QTc: 418 Interpretive Statements 1100 Sinus rhythm 3114 Cannot rule out anterior myocardial infarction, age undetermined 8102 Low QRS voltage in chest leads 9150 abnormal ECG No previous ECG available for comparison Dictated By: Bob James Signed By: DD/ 1317 TD/TT: Construction Project Manager: GLYCOHEMOGLOBIN A1C Reviewed date:01/21/2025 06:22:23 PM Interpretation: Performing Lab: Notes/Report: [facility] , Glycohemoglobin A1C 7.5 4.5-6.2 % ADA RECOMMENDED LIMIT 4.0 - 6.0 ADA THERAPEUTIC TARGET < 7.0 ACTION SUGGESTED > 7.0 Estimated Average Glucose 169 Performing Lab: see note ML - [facility] LB BNP Reviewed date:01/21/2025 04:02:12 PM Interpretation: Performing Lab: Notes/Report: [facility] , NT Pro B Type Natriuretic Pept 456.0 <=900.0 pg /mL Performing Lab: see note ML - [facility] Reason For Referral Diagnosis 1 Reduced ejection fra ction concurrent with and due to acute heart failure (I50.9) Referral Organization [facility] Medicine Referring Provider First Name Chris Referring Provider Last Name Jamshid Referring Provider Speciality Family Kosta white Referred Provider [facility] Cardiology, [facility] Referred Provider Specialty Cardiology Referral Priority Routine Medications Medication SIG (Take, Route, Frequency, Duration) Notes Start Date End Date Status predniSONE 20 MG 3 tablets Orally Onc e a day; Duration: 5 days 03/08/2025 Active Azithromycin 250 MG 2 tabs today then 1 tab Orally daily; Duration: 5 days 02/27/2025 Active Atorvastatin Calcium 40 MG 1 tablet Oral ly Once a day; Duration: 90 days Active Magnesium 250 MG 1 tablet with a meal Orally Once a day Active Aspirin Low Dose 81 MG CHEW 1 TABLET BY MOUTH and swallow IN THE MORNING Oral; Duration: 90 Days Active Losartan Potassium 50 MG 1 tablet Orally Once a day; Duration: 90 days Active Lancets 30G - Use 1 lancet E11.9 o nce daily; Duration: 90 01/11/2025 Active Amoxicillin-Pot Clavulanate 875-125 MG 1 tablet Orally every 12 hrs; Duration: 10 days 03/08/2025 Active Cetirizine HCl 10 MG TAKE 1 TABLET BY [facility] IN THE MORNING Oral; Duration: 30 Days Active Test Strips - as directed Dx: Diab etes Type II Once daily; Duration: 90 days 01/11/2025 Active Carvedilol 12.5 MG Take 1 tablet Oral T wice a day; Duration: 90 days Active Spironolactone 25 MG TAKE 1 TABLET BY [facility] DAILY Oral; Duration: 90 Days Active Blood Glucose Monitor System w/Device use device Dx:E11.9 daily to monitor blood glucose level 01/11/2025 Active predniSONE 20 MG 2 tablets Orally Onc e a day; Duration: 5 days 02/27/2025 Active metFORMIN HCl 1000 MG 1 tablet with a me al Oral BID; Duration: 90 days Active HYDROcodone-Acetaminophen 5-325 MG 1 tablet as needed Orally every 6 hrs; Duration: 14 days 03/01/2025 Active Glimepiride 2 MG 1 tablet with breakf ast or the first main meal of the day Orally Once a day; Duration: 90 days Active Furosemide [...] Problem Acute on chronic diastolic heart failure (057380510) Acute on chronic diastolic (congestive) heart failure (I50.33) Active confirmed Problem Acute combined systolic and diastolic heart failure (854367889526388) Acute combined systolic (congestive) and diastolic (congestive) heart failure (I50.41) Active confirmed Problem Hypertension (93043467) Hypertension (I10) Active confirmed Problem COPD - Chronic obstructive pulmonary disease (68244474) COPD (chronic obstructive pulmonary disease) (J44.9) Active confirmed Problem Osteoarthritis of knee (597959982) Knee osteoarthritis (M17.9) Active confirmed Problem Pulmonary edema (54418899) Pulmonary edema (J81.1) Active confirmed Problem Iron deficiency anemia (78186733) Anemia, iron deficiency (D50.9) Active confirmed Problem Acute bronchiolitis (4666380) Acute bronchiolitis (J21.9) Active confirmed Problem Hyperglycemia due to type 2 diabetes mellitus (970991419587876) Diabetes mellitus with hyperglycemia (E11.65) Active confirmed Problem Anemia of renal disease (161439222) Anemia of renal disease (D63.1) Active confirmed Problem Malnutrition of moderate degree (Simeon: 60% to less than 75% of standard weight) (96233893) Moderate malnutrition (E44.0) Active confirmed Problem Essential hypertension (36292397) BP (high blood pressure) (I10) Active confirmed Problem Heart failure (03473258) Reduced ejection fraction concurrent with and due to acute heart failure (I50.9) Active confirmed Problem Diabetes mellitus (24965456) Diabetes mellitus (E11.9) Active confirmed Problem Acute worsening of stage 3 chronic kidney disease (N18.30) Active confirmed Problem Chronic kidney disease stage 3 (disorder) (030407172) Chronic kidney disease, stage III (moderate) (N18.30) Active confirmed Vital Signs Heart Rate 78 /min 03/08/2025 Temperature 96.8 degrees Fahrenheit 03/08/2025 Oximetry 92 % 03/08/2025 Blood pressure diastolic 68 mm Hg 03/08/2025 Height 66 in 03/08/2025 Blood pressure systolic 124 mm Hg 03/08/2025 Weight 425.2 lbs 01/11/2025 BMI 68.62 kg/m2 01/11/2025 Encounters Encounter Location Date Provider Diagnosis [facility] [address] [place] [address] 01/11/2025 Chris Toy [facility] [address] [place] [address] 01/18/2025 Chris Toy Reduced ejection fra ction concurrent with and due to acute heart failure I50.9 and Knee osteoarthritis M17.9 [facility] [address] [place] [address] 01/21/2025 Chris Yousufy [facility] [address] [place] [address] 02/01/2025 Chris Hoy Knee osteoarthritis M17.9 [facility] [address] [place] [address] 02/15/2025 Chris Hoy Knee osteoarthritis M17.9 [facility] [address] [facility] [place] [address] 02/27/2025 Chris Hoy [facility] [address] [place] [address] 03/01/2025 Chris Hoy Knee osteoarthritis M17.9 [facility] [address] [facility] [place] [address] 03/06/2025 Chris Yousufy [facility] [address] [place] [address] 01/11/2025 Chris Hoy Reduced ejection fra ction concurrent with and due to acute heart failure I50.9 ; Diabetes mellitus with hyperglycemia E11.65 ; COPD (chronic obstructive pulmonary disease) J44.9 ; Chronic kidney disease, stage III (moderate) N18.30 ; Acute worsening of stage 3 chronic kidney disease N18.30 and Knee osteoarthritis M17.9 [facility] [address] [place] [address] 03/08/2025 Chris Breen Acute bronchiolitis J21.9 Assessments Encounter Date Diagnosis (ICD Code) Assessment Notes Treatment Notes Treatment Clinical Notes Section Notes 01/11/2025 Reduced ejection fraction concurrent with and due to acute heart failure (ICD-10 - I50.9) 03/08/2025 Acute bronchiolitis (ICD-10 - J21.9) 01/18/2025 Reduced ejection fraction concurrent with and due to acute heart failure (ICD-10 - I50.9) 02/01/2025 Knee osteoarthritis (ICD-10 - M17.9) 02/15/2025 Knee osteoarthritis (ICD-10 - M17.9) 03/01/2025 Knee osteoarthritis (ICD-10 - M17.9) 01/18/2025 Knee osteoarthritis (ICD-10 - M17.9) 01/11/2025 [...] 14(COMP METB) 01/11/2025 THYROID PANEL (T4/TSH/FREE T3) ECG 12 lead 03/11/2025 Insurance Providers Payer Name Payer Address Payer Phone Subscriber Number Group Number Insured Name Patient Relationship to Insured Coverage Start Date Coverage End Date [facility] MED[facility] [address] [address] [place] [phone] [id number] Cristobal Garcia Self - patient is the insured Medical (General) History Surgical History Surgery Date(Month/Year) appendectomy Hospitalization History Reason Date(Month/Year) CHF 2024 Pneumonia 2024
--- OUTSIDE RECORDS SUMMARY | 2025-03-11 13:24 | XMS_ITS | Encounter Summary ---
Author Organization [employer] s tem Address [facility] [id number] [address] [place] [address] Care Team Providers Care Communications Controller Name Role Phone Snadip Woo DO Primary Care Provider [phone] Encounter Details Date Type Department Care Team (Late st Contact Info) Description 02/15/2024 Telephone [facility] Internal Medicine - Family Medicine [address] [place] [phone] Nitza Oneal CMA Social History Tobacco Use [...] documented as of this encounter Care Teams Communications Controller Relationship Specialty Start Date End Date Sandip Woo DO [address] [place] [address] PCP - General Internal Medicine 01/12/23 02/17/25 documented as of this encounter
--- OUTSIDE RECORDS SUMMARY | 2025-03-11 13:24 | XMS_ITS | Encounter Summary ---
Author Organization [employer] Sys [employer] Address [facility] [id number] [address] [place] [address] Care Team Providers Care Instrument Designer Name Role Phone Sandip Woo DO Primary Care Provider [phone] Encounter Details Date Type Department Care Team (Late st Contact Info) Description 02/23/2024 Telephone [facility] Internal Medicine - Family Medicine [address] [place] [address] CMA Social History Tobacco Use [...] documented as of this encounter Care Teams Instrument Designer Relationship Specialty Start Date End Date Sandip Woo DO [address] [place] [address] PCP - General Internal Medicine 01/12/23 02/17/25 documented as of this encounter
--- OUTSIDE RECORDS SUMMARY | 2025-03-11 13:24 | XMS_ITS | Encounter Summary ---
Author Organization [employer] Address [facility] [id number] [address] [place] [address] Care Team Providers Care Railroad Signal Technician Name Role Phone Sandip Woo DO Primary Care Provider [phone] Encounter Details Date Type Department Care Team (Late st Contact Info) Description 06/07/2024 Orders Only [facility] Internal Medicine - Family Medicine [address] [place] [address] Sandip Woo DO [address] [place] [address] Chronic combined systolic and diastolic CHF (congestive heart failure) ([facility]) Social History Tobacco Use Types Packs/Day [...] documented as of this encounter Care Teams Railroad Signal Technician Relationship Specialty Start Date End Date Sandip Woo DO [address] [place] [address] PCP - General Internal Medicine 01/12/23 02/17/25 documented as of this encounter
--- OUTSIDE RECORDS SUMMARY | 2025-03-11 13:24 | XMS_ITS | Encounter Summary ---
Author Organization [employer] Address [facility] [id number] [address] [place] [address] Care Team Providers Care Guest Relations Agent Name Role Phone Sandip Woo DO Primary Care Provider [phone] Reason for Visit * Reason Comments Med Change Request Encounter Details Date Type Department Care Team (Late st Contact Info) Description 12/03/2024 Refill [facility] Internal Medicine - Family Medicine [address] [place] [address] Sandip Woo DO [address] [place] [address] Non-seasonal allergic rhinitis, unspecified trigger Social History [...] documented as of this encounter Care Teams Guest Relations Agent Relationship Specialty Start Date End Date Sandip Woo DO [address] [place] [address] PCP - General Internal Medicine 01/12/23 02/17/25 documented as of this encounter
--- OUTSIDE RECORDS SUMMARY | 2025-03-11 13:24 | XMS_ITS | Encounter Summary ---
Author Organization [employer] s tem Address [facility] [place][id number] [address] [place] [address] Care Team Providers Care Freelance Director Name Role Phone Sandip Woo DO Primary Care Provider [phone] Encounter Details Date Type Department Care Team (Late st Contact Info) Description 02/23/2024 Orders Only [facility] Internal Medicine - Family Medicine [address] [place] [phone] Sandip Woo DO [address] [place] [address] Bronchitis, allergic, unspecified asthma severity, uncomplicated (Primary [...] documented as of this encounter Care Teams Freelance Director Relationship Specialty Start Date End Date Sandip Woo DO [address] [place] [address] PCP - General Internal Medicine 01/12/23 02/17/25 documented as of this encounter
--- OUTSIDE RECORDS SUMMARY | 2025-03-11 13:25 | XMS_ITS | Encounter Summary ---
Author Organization [employer] Address [facility] [id number] [address] [place] [address] Care Team Providers Care Sound Technician Name Role Phone Sandip Woo DO Primary Care Provider [phone] Encounter Details Date Type Department Care Team (Late st Contact Info) Description 10/18/2023 Orders Only [facility] Internal Medicine - Family Medicine [address] [place] [address] Sandip Woo DO [address] [place] [address] Social History Tobacco Use Types Packs/Day Years [...] documented as of this encounter Care Teams Sound Technician Relationship Specialty Start Date End Date Sandip Woo DO [address] [place] [address] PCP - General Internal Medicine 01/12/23 02/17/25 documented as of this encounter
--- OUTSIDE RECORDS SUMMARY | 2025-03-11 13:25 | XMS_ITS | Clinical Summary ---
Author Organization [facility] Address [address] [facility] [place] [address] Care Team Providers Care Neon Tube Pumper Name Role Phone Sandip Woo MD Primary Care Provider [phone] Allergies Active Allergy Reactions Criticality Noted Date [...] file Insurance [employer] Care Teams Neon Tube Pumper Relationship Specialty Start Date End Date Sandip Woo MD PCP - General Internal Medicine 03/28/23
--- OUTSIDE RECORDS SUMMARY | 2025-03-11 13:25 | XMS_ITS | Encounter Summary ---
Author Organization [employer] Address [facility] [id number] [address] [place] [address] Care Team Providers Care Automotive Fuel Systems Converter Name Role Phone Sandip Woo DO Primary Care Provider [phone] Encounter Details Date Type Department Care Team (Late st Contact Info) Description 12/04/2024 Telephone [facility] Internal Medicine - Family Medicine [address] [place] [address] Shanelle Chung CMA Social History Tobacco Use [...] 11:33 AM EDT Pharmacist Barbara from [facility] [place] in [place] called inquiring if you could write pt's [...] documented as of this encounter Care Teams Automotive Fuel Systems Converter Relationship Specialty Start Date End Date Sandip Woo DO [address] [place] [address] PCP - General Internal Medicine 01/12/23 02/17/25 documented as of this encounter
--- OUTSIDE RECORDS SUMMARY | 2025-03-11 13:25 | XMS_ITS | Encounter Summary ---
Author Organization [employer] Address [facility] [id number] [address] [place] [address] Care Team Providers Care Dimensional Engineer Name Role Phone Sandip Woo DO Primary Care Provider [phone] Encounter Details Date Type Department Care Team (Late st Contact Info) Description 01/19/2024 Telephone [facility] Internal Medicine - Family Medicine [address] [place] [address] Nitza Oneal CMA Social History Tobacco Use [...] documented as of this encounter Care Teams Dimensional Engineer Relationship Specialty Start Date End Date Sandip Woo DO [address] [place] [address] PCP - General Internal Medicine 01/12/23 02/17/25 documented as of this encounter
--- OUTSIDE RECORDS SUMMARY | 2025-03-11 13:25 | XMS_ITS | Encounter Summary ---
Author Organization [employer] Address [facility] [place]-[id number] [address] [place] [address] Care Team Providers Care Endocrinologist Name Role Phone Sandip Woo DO Primary Care Provider [phone] Reason for Visit * Reason Comments Med Refill Encounter Details Date Type Department Care Team (Late st Contact Info) Description 12/13/2024 Refill [facility] - Family Medicine [address] [place] [address] Sandip Woo DO [address] [place] [phone] Non-seasonal allergic rhinitis, unspecified trigger; Type 2 diabetes mellitus without complication, without long-term current use of insulin ([facility]) Social History Tobacco Use Types Packs/Day Years [...] complication, without long-term current use of insulin ([facility]) documented in this encounter Additional Health Concerns Assessment Noted Time PHQ-9 Depression Total Score: 0 06/05/19 12:55 PM EST documented as of this encounter Care Teams Endocrinologist Relationship Specialty Start Date End Date Sandip Woo DO [address] [place] [address] PCP - General Internal Medicine 01/12/23 02/17/25 documented as of this encounter
--- OUTSIDE RECORDS SUMMARY | 2025-03-11 13:25 | XMS_ITS | Encounter Summary ---
Author Organization [employer] Sys [employer] Address [facility] [place]-[id number] [address] [place] [address] Care Team Providers Care Associate Professor Physician Name Role Phone Sandip Woo DO Primary Care Provider Encounter Details Date Type Department Care Team (Late st Contact Info) Description 01/06/2024 Orders Only [facility] - Family Medicine [address] [place] [address] External, Scanning Provider Social History Tobacco Use [...] as of this encounter Care Teams Associate Professor Physician Relationship Specialty Start Date End Date Sandip Woo DO [address] [place] [address] PCP - General Internal Medicine 01/12/23 02/17/25 documented as of this encounter
--- OUTSIDE RECORDS SUMMARY | 2025-03-11 13:25 | XMS_ITS | Encounter Summary ---
Author Organization [employer] Address [id number] [address] [place] [address] Care Team Providers Care Labor Relations Representative Name Role Phone Sandip Woo DO Primary Care Provider [phone] Reason for Visit * Reason Comments Med Refill Encounter Details Date Type Department Care Team (Late st Contact Info) Description 10/06/2023 Refill [facility] Internal [facility] - Family Medicine [address] [place] [phone] Sandip Woo DO [address] [place] [address] Encounter for immunization Social History Tobacco Use [...] EDT This is discontinued due to starting Ken[employer] documented in this encounter Plan of Treatment Not on file documented as of this encounter Visit Diagnoses Diagnosis Encounter for immunization documented in this encounter Additional Health Concerns Assessment Noted Time PHQ-9 Depression Total Score: 0 09/07/19 1:09 PM EDT documented as of this encounter Care Teams Labor Relations Representative Relationship Specialty Start Date End Date Sandip Woo DO [address] [place] [address] PCP - General Internal Medicine 01/12/23 02/17/25 documented as of this encounter
--- OUTSIDE RECORDS SUMMARY | 2025-03-11 13:25 | XMS_ITS | Encounter Summary ---
Author Organization [employer] Sys [employer] Address [facility] [id number] [address] [place] [address] Care Team Providers Care Mental Health Social Worker Name Role Phone Unavailable Primary Care Provider Unavailabl e Reason for Visit * Reason Comments Med Refill Encounter Details Date Type Department Care Team (Late st Contact Info) Description 02/28/2025 Refill [facility] - Family Medicine [address] [place] [address] Sandip Woo, DO [address] [place] [address] Type 2 diabetes mellitus without complication, without long-term current use of insulin ([facility]); Chronic combined systolic and diastolic CHF (congestive heart failure) ([facility]) Social History Tobacco Use Types [...] complication, without long-term current use of insulin ([facility]) Chronic combined systolic and diastolic CHF (congestive heart failure) ([facility]) documented in this encounter Additional Health Concerns Assessment Noted Time PHQ-9 Depression Total Score: 0 06/05/19 25 12:55 PM EST documented as of this encounter
--- OUTSIDE RECORDS SUMMARY | 2025-03-11 13:25 | XMS_ITS | Encounter Summary ---
Author Organization [employer] Address [facility] [place]-[id number] [address] [place] [address] Care Team Providers Care Scrap Breaker Name Role Phone Sandip Woo DO Primary Care Provider [phone] Encounter Details Date Type Department Care Team (Late st Contact Info) Description 01/03/2024 Orders Only [facility] - Family Medicine [address] [place] [address] External, Scanning Provider Social History Tobacco Use [...] documented as of this encounter Care Teams Scrap Breaker Relationship Specialty Start Date End Date Sandip Woo DO [address] [place] [address] PCP - General Internal Medicine 01/12/23 02/17/25 documented as of this encounter
--- OUTSIDE RECORDS SUMMARY | 2025-03-11 13:25 | XMS_ITS | Clinical Summary ---
Author Organization [employer] tem Address [facility] [place]-[id number] [address] [place] [address] Care Team Providers Care Extruder Tender Name Role Phone Unavailable Primary Care Provider Unavailabl e Allergies Active Allergy Reactions Criticality Noted Date Comments Topiramate Headache,Other (See Comments) 2013 Severe headache Medications albuterol (PROVENTIL HFA;VENTOLIN HFA) 90 mcg/actuation inhaler INHALE 2 PUFFS BY MOUTH EVERY 4 HOURS NEEDED for SHORTNESS OF BREATH or FOR WHEEZING 4 Active aspirin 81 mg chewable tabletIndications: Chronic combined systolic and diastolic CHF (congestive heart failure) ([facility]) Chew 1 tablet (81 mg total) and swallow in the morning. 90 tablet 1 4 Active magnesium oxide 250 mg tabletIndications: Chronic combined systolic and diastolic CHF (congestive heart failure) ([facility]) Take 1 tablet (250 mg total) by mouth in the morning. 90 tablet 1 4 Active atorvastatin (LIPITOR) 40 mg tabletIndications: Type 2 diabetes mellitus without complication, without long-term current use of insulin ([facility]) Take 1 tablet (40 mg total) by mouth nightly. 90 tablet 1 5 Active carvediloL (COREG) 12.5 mg tabletIndications: Chronic combined systolic and diastolic CHF (congestive heart failure) ([facility]) Take 1 tablet (12.5 mg total) by mouth in the morning and 1 tablet (12.5 mg total) in the evening. Take with meals. 180 tablet 1 5 Active furosemide (LASIX) 40 mg tabletIndications: Chronic combined systolic and diastolic CHF (congestive heart failure) ([facility]) Take 1 tablet (40 mg total) by mouth daily. 30 tablet 11 5 Active losartan (COZAAR) 50 mg tabletIndications: Chronic combined systolic and diastolic CHF (congestive heart failure) ([facility]) Take 1 tablet (50 mg total) by mouth in the morning. 90 tablet 1 5 Active spironolactone (ALDACTONE) 25 mg tabletIndications: Chronic combined systolic and diastolic CHF (congestive heart failure) ([facility]) Take 1 tablet (25 mg total) by mouth in the morning. 90 tablet 5 Active dapagliflozin propanediol (FARXIGA) 10 mg tabletIndications: Chronic combined systolic and diastolic CHF (congestive heart failure) ([facility]) Take 1 tablet (10 mg total) by mouth in the morning. 120 tablet 2 5 Active baclofen 5 mg tabletIndications: Primary osteoarthritis of right shoulder Take 2 tablets by mouth 2 (two) times a day as needed (back spasm). 5 Active metFORMIN (GLUCOPHAGE) 1000 mg tabletIndications: Type 2 diabetes mellitus without complication, without long-term current use of insulin ([facility]) TAKE 1 TABLET BY MOUTH TWICE DAILY [...] Encounters Date Type Department Care Team Description 02/28/2025 Refill [facility] - Family Medicine [address] [place] [phone] Sandip Woo, DO Type 2 diabetes mellitus without complication, without long-term current use of insulin ([facility]); Chronic combined systolic and diastolic CHF (congestive heart failure) ([facility]) 02/15/2025 Telephone [facility] - [facility] Medicine [address] [place] [address] Noemi Caraballo CMA Colon Cancer Screening 01/07/2025 Orders Only [facility] - [facility] [address] [place] [place] [address] Ref Prov, Not In System 12/13/2024 Refill [facility] - Family Medicine [address] [place] [address] Sandip Woo, DO Non-seasonal allergic rhinitis, unspecified trigger; Type 2 diabetes mellitus without complication, without long-term current use of insulin ([facility]) from Last 3 Months Immunizations Immunization Administration [...]
--- OUTSIDE RECORDS SUMMARY | 2025-03-11 13:25 | XMS_ITS | Encounter Summary ---
Author Organization [employer] Sys tem Address [facility]-[id number] [address] [place] [address] Care Team Providers Care Butadiene Converter Utility Operator Name Role Phone Sandip Woo DO Primary Care Provider [phone] Encounter Details Date Type Department Care Team (Late st Contact Info) Description 09/23/2023 Orders Only [facility] - Family Medicine [address] [place] [phone] Sandip Woo DO [address] [place] [address] Type 2 diabetes mellitus without complication, without long-term current use of insulin ([facility]) (Primary Dx) Social History Tobacco Use Types [...] complication, without long-term current use of insulin ([facility])- Primary documented in this encounter Additional Health Concerns Assessment Noted Time PHQ-9 Depression Total Score: 0 09/07/19 24 1:09 PM EDT documented as of this encounter Care Teams Butadiene Converter Utility Operator Relationship Specialty Start Date End Date Sandip Woo DO [address] [place] [address] PCP - General Internal Medicine 01/12/23 02/17/25 documented as of this encounter
--- OUTSIDE RECORDS SUMMARY | 2025-03-11 13:25 | XMS_ITS | Encounter Summary ---
Author Organization [employer] [facility] tem Address [facility][id number] [address] [place] [address] Care Team Providers Care Computer Science Professor Name Role Phone Sandip Woo DO Primary Care Provider [phone] Reason for Referral * Consultation (Routine) - Closed Specialty Diagnoses / Procedures Referred By Otoniel cruz Referred To Contact Orthopaedic Surgery Diagnoses Primary osteoarthritis of right shoulder Sandip Woo DO [address] [place] [address] Phone: tel: fax: Kaveh Mayer DO Phone: tel: fax: Referral ID Status Reason Start Date Expiration Date V isits Requested Visits Authorized [id number] Closed Specialty Services Required 03/21/2023 03/20/2024 4 4 Encounter Details Date Type Department Care Team (Late st Contact Info) Description 03/21/2023 Orders Only [facility] - Family Medicine [address] [place] [address] Sandip Woo DO [address] [place], [place] [id number] Primary osteoarthritis of right shoulder (Primary Dx) [...] documented as of this encounter Care Teams Computer Science Professor Relationship Specialty Start Date End Date Sandip Woo DO [address] [place] [address] PCP - General Internal Medicine 01/12/23 02/17/25 documented as of this encounter
--- OUTSIDE RECORDS SUMMARY | 2025-03-11 13:25 | XMS_ITS | Encounter Summary ---
Author Organization [employer] tem Address [facility] [place][id number] [address] [place] [address] Care Team Providers Care Acid Purification Equipment Operator Name Role Phone Sandip Woo DO Primary Care Provider [phone] Encounter Details Date Type Department Care Team (Late st Contact Info) Description 01/03/2023 Orders Only [facility] - Family Medicine [address] [place] [address] External, Scanning Provider Social History Tobacco Use [...] 9:49 AM EDT) us Scanning Provider External [place] IMAGING Final Result Performing Organization Address City/[facility] Co de Phone Number MANUALLY TRANSCRIBED RESULTS * Multiple labs (10/01/2020 9:42 AM EDT) us Scanning Provider External MO IMAGING Final Result Performing Organization Address [facility] Co de Phone Number MANUALLY TRANSCRIBED RESULTS documented in this encounter Visit Diagnoses Not on filedocumented in this encounter Care Teams Acid Purification Equipment Operator Relationship Specialty Start Date End Date Sandip Woo DO [address] [place] [address] PCP - General Internal Medicine 01/12/23 02/17/25 documented as of this encounter
--- OUTSIDE RECORDS SUMMARY | 2025-03-11 13:25 | XMS_ITS | Encounter Summary ---
Author Organization [employer] Address [facility]-[id number] [address] [place] [address] Care Team Providers Care Associate Professor Physician Name Role Phone Sandip Woo DO Primary Care Provider [phone] Encounter Details Date Type Department Care Team (Late st Contact Info) Description 09/09/2023 Telephone [facility] - Family Medicine [address] [place] [address] CMA Social History Tobacco Use [...] would be a good switch. He can tack picker a sample of Rybelsus 3 mg daily [...] End Date Sandip Woo DO [address] [place] [address] PCP - General Internal Medicine 01/12/23 02/17/25 documented as of this encounter
--- OUTSIDE RECORDS SUMMARY | 2025-03-11 13:25 | XMS_ITS | Encounter Summary ---
Author Organization [employer] Sys tem Address [facility]-[id number] [address] [place] [address] Care Team Providers Care Mechanical Cad Designer Name Role Phone Sandip Woo DO Primary Care Provider [phone] Encounter Details Date Type Department Care Team (Late st Contact Info) Description 01/24/2024 Telephone [facility] - Family Medicine [address] [place] [address] CMA Social History Tobacco Use [...] CMA - 01/24/2024 2:08 PM EDT Pts [facility] nurse called to let you know she will be discharging this pt from [facility] for repeat non compliance also pt [...] back stated pt is refusing any futher [facility], last week he was having shortness [...] diastolic CHF (congestive heart failure) ([facility]) documented in this encounter Additional Health Concerns Assessment Noted Time PHQ-9 Depression Total Score: 9 01/16/20 24 4:32 PM EDT documented as of this encounter Care Teams Mechanical Cad Designer Relationship Specialty Start Date End Date Sandip Woo DO [address] [place] [address] PCP - General Internal Medicine 01/12/23 02/17/25 documented as of this encounter
--- OUTSIDE RECORDS SUMMARY | 2025-03-11 13:25 | XMS_ITS | Encounter Summary ---
Author Organization [employer] tem Address [facility][id number] [address] [place] [address] Care Team Providers Care Restaurant Area Manager Name Role Phone Sandip Woo DO Primary Care Provider [phone] Encounter Details Date Type Department Care Team (Late st Contact Info) Description 12/19/2023 Orders Only [facility] - Family Medicine [address] [place] [address] Ref Prov, [place] [address] Social History Tobacco Use Types Packs/Day Years [...] documented as of this encounter Care Teams Restaurant Area Manager Relationship Specialty Start Date End Date Sandip Woo DO [address] [place] [address] PCP - General Internal Medicine 01/12/23 02/17/25 documented as of this encounter
--- OUTSIDE RECORDS SUMMARY | 2025-03-11 13:25 | XMS_ITS | Encounter Summary ---
Author Organization [facility] Address [address] [facility] [place] [address] Care Team Providers Care Cheese Factory Worker Name Role Phone Sandip Woo MD Primary Care Provider [phone] Encounter Details Date Type Department Care Team (Late st Contact Info) Description 06/09/2023 Abstract [facility] [address] [place] [address] Inna Jefferson NP Social History Tobacco Use [...] on filedocumented in this encounter Care Teams Cheese Factory Worker Relationship Specialty Start Date End Date Sandip Woo MD PCP - General Internal Medicine 03/28/23 documented as of this encounter
--- OUTSIDE RECORDS SUMMARY | 2025-03-11 13:25 | XMS_ITS | Encounter Summary ---
Author Organization [employer] s tem Address [facility] [place]-[id number] [address] [place] [address] Care Team Providers Care Dairy Feed Sales Consultant Name Role Phone Sandip Woo DO Primary Care Provider [phone] Encounter Details Date Type Department Care Team (Late st Contact Info) Description 04/11/2023 Orders Only [facility] - Family Medicine [address] [place] [address] Sandip Woo DO [address] [place] [address] Primary osteoarthritis of right shoulder Social History [...] documented as of this encounter Care Teams Dairy Feed Sales Consultant Relationship Specialty Start Date End Date Sandip Woo DO [address] [place] [address] PCP - General Internal Medicine 01/12/23 02/17/25 documented as of this encounter
--- OUTSIDE RECORDS SUMMARY | 2025-03-11 13:25 | XMS_ITS | Encounter Summary ---
Author Organization [employer] tem Address [facility][id number] [address] [place] [address] Care Team Providers Care Network Operations Center Engineer Name Role Phone Sandip Woo DO Primary Care Provider [phone] Reason for Visit * Reason Comments Med Refill Encounter Details Date Type Department Care Team (Late st Contact Info) Description 07/20/2023 Refill [facility] - Family Medicine [address] [place] [address] Sandip Woo DO [address] [place] [address] Essential hypertension; Hyperlipidemia, unspecified hyperlipidemia type Social [...] as of this encounter Care Teams Network Operations Center Engineer Relationship Specialty Start Date End Date Sandip Woo DO [address] [place] [address] PCP - General Internal Medicine 01/12/23 02/17/25 documented as of this encounter
--- OUTSIDE RECORDS SUMMARY | 2025-03-11 13:25 | XMS_ITS | Encounter Summary ---
Author Organization [employer] Address [facility] [place]-[id number] [address] [place] [address] Care Team Providers Care Business Analytics Manager Name Role Phone Sandip Woo DO Primary Care Provider [phone] Reason for Visit * Reason Comments Med Refill Encounter Details Date Type Department Care Team (Late st Contact Info) Description 10/18/2023 Refill [facility] - Family Medicine [address] [place] [address] Sandip Woo DO [address] [place] [address] Encounter for immunization Social History Tobacco Use [...] documented as of this encounter Care Teams Business Analytics Manager Relationship Specialty Start Date End Date Sandip Woo DO [address] [place] [address] PCP - General Internal Medicine 01/12/23 02/17/25 documented as of this encounter
--- OUTSIDE RECORDS SUMMARY | 2025-03-11 13:25 | XMS_ITS | Encounter Summary ---
Author Organization [employer] tem Address [facility] [place]-[id number] [address] [place] [address] Care Team Providers Care Employment Recruiter Name Role Phone Sandip Woo DO Primary Care Provider [phone] Encounter Details Date Type Department Care Team (Late st Contact Info) Description 09/22/2023 Telephone [facility] - Family Medicine [address] [place] [address] CMA Social History Tobacco Use [...] documented as of this encounter Care Teams Employment Recruiter Relationship Specialty Start Date End Date Sandip Woo DO [address] [place] [address] PCP - General Internal Medicine 01/12/23 02/17/25 documented as of this encounter
--- OUTSIDE RECORDS SUMMARY | 2025-03-11 13:25 | XMS_ITS | Encounter Summary ---
Author Organization [employer] Address [facility]-[id number] [address] [place] [address] Care Team Providers Care Refuge Worker Name Role Phone Sandip Woo DO Primary Care Provider [phone] Encounter Details Date Type Department Care Team (Late st Contact Info) Description 03/18/2023 Orders Only [facility] - Family Medicine [address] [place] [address] Brandi Hurley CMA Chronic right shoulder pain [...] documented as of this encounter Care Teams Refuge Worker Relationship Specialty Start Date End Date Sandip Woo DO [address] [place] [address] PCP - General Internal Medicine 01/12/23 02/17/25 documented as of this encounter
--- OUTSIDE RECORDS SUMMARY | 2025-03-11 13:25 | XMS_ITS | Encounter Summary ---
Author Organization [facility] Address [address] [facility] [place] [address] Care Team Providers Care Boots And Shoes Supervisor Name Role Phone Sandip Woo MD Primary Care Provider [phone] Encounter Details Date Type Department Care Team (Late st Contact Info) Description 03/24/2023 Orders Only [facility] [address] [place] [phone] Sandip Woo MD [address] [place] [address] Social History Tobacco Use Types Packs/Day Years [...] on filedocumented in this encounter Care Teams Boots And Shoes Supervisor Relationship Specialty Start Date End Date Sandip Woo MD PCP - General Internal Medicine 03/28/23 documented as of this encounter
--- OUTSIDE RECORDS SUMMARY | 2025-03-11 13:25 | XMS_ITS | Clinical Summary ---
Author Organization [facility] Address [address], [address] [place] [address] Care Team Providers Care Wood Type Finisher Name Role Phone Thom Stern MD Primary Care Provider [phone] Allergies Active Allergy Reactions Criticality Noted Date [...] 0 11/06/2014 Active vitamin D (ERGOCALCIFEROL ) 58743 UNITS capsule Take 1 capsule by mouth [...] 9:41 AM 11/06/2014 6:48 PM Care Teams Wood Type Finisher Relationship Specialty Start Date End Date Thom Stern MD PCP - General 11/03/14
--- OUTSIDE RECORDS SUMMARY | 2025-03-11 13:25 | XMS_ITS | Encounter Summary ---
Author Organization [employer] Address [facility] [place][id number] [address] [place] [address] Care Team Providers Care Potato Grader Name Role Phone Sandip Woo DO Primary Care Provider Encounter Details Date Type Department Care Team (Late st Contact Info) Description 01/07/2025 Orders Only [facility] - Family Medicine [address] [place] [address] Ref Prov, [place] [address] Social History Tobacco Use Types Packs/Day Years [...] documented as of this encounter Care Teams Potato Grader Relationship Specialty Start Date End Date Sandip Woo DO [address] [place] [id number] PCP - General Internal Medicine 01/12/23 02/17/25 documented as of this encounter
--- OUTSIDE RECORDS SUMMARY | 2025-03-11 13:25 | XMS_ITS | Encounter Summary ---
Author Organization [employer] Address [facility] [place]-[id number] [address] [place] [address] Care Team Providers Care Tank Riveter Name Role Phone Snadip Woo DO Primary Care Provider [phone] Encounter Details Date Type Department Care Team (Late st Contact Info) Description 12/16/2023 Orders Only [facility] - Family Medicine [address] [place] [address] External, Scanning Provider Social History Tobacco Use [...] documented as of this encounter Care Teams Tank Riveter Relationship Specialty Start Date End Date Sandip Woo DO [address] [place] [address] PCP - General Internal Medicine 01/12/23 02/17/25 documented as of this encounter
--- OUTSIDE RECORDS SUMMARY | 2025-03-11 13:26 | XMS_ITS | CCD ---
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 [facility] ([id number]) [address], [address] [place] [address] Creatinine [Mass/Vol] 1.11 mg/dL Normal 0.60-1.30 [facility] Comment on above: Result Comment: METH OD TRACEABLE TO IDMS STANDARD Performed By: #### C RACHEAL, 63851-6 #### [facility] ([id number]) [address], [address] [place] [address] GFR/1.73 sq M.predicted among non-blacks MDRD (S/P/Bld) [Vol rate/Area] 76 mL/min/{1.73_m2} Normal >59 [facility] Comment on above: Result Comment: Reported eGFR is based on the CKD-EPI 2020 equation that does not use a race coefficient. Performed By: #### C RACHEAL 64487-8 #### [facility] ([id number]) [address], [address] [place] [address] Glucose [Mass/Vol] 155 mg/dL High 65-99 [facility] Comment on above: Performed By: #### Dennis SPRINGER 78283-3 #### [facility] ([id number]) [address] [place] [address] Potassium [Moles/Vol] 4.9 mmol/L Normal 3.5-5.0 [facility] Comment on above: Performed By: #### C RACHEAL, 39775-3 #### [facility] ([id number]) [address], [address] [place] [address] Protein [Mass/Vol] 7.3 g/dL Normal 6.0-8.0 [facility] Comment on above: Performed By: #### Dennis SPRINGER, 65856-7 #### [facility] ([id number]) [address] [place] [address] Sodium [Moles/Vol] 139 mmol/L Normal 134-146 [facility] Comment on above: Performed By: #### C RACHEAL, 76597-1 #### [facility] ([id number]) [address] [place] [address] Urea nitrogen [Mass/Vol] 26 mg/dL High 5-23 [facility] Comment on above: Performed By: #### C RACHEAL, 02457-5 #### [facility] ([id number]) [address], [address] [place] [address] Comprehensive metabolic pane marcus 09-03-2024 Albumin [Mass/Vol] 4.1 g/dL 3.2 - 5.3 g/dL [facility] ALP [Catalytic activity/Vol] 126 U/L 39 - 130 U/L [facility] ALT No additional P-5'-P [Catalytic activity/Vol] 17 U/L 0 - 40 U/L [facility] Anion gap [Moles/Vol] 9 mmol/L 5 - 15 mmol/L [facility] AST [Catalytic activity/Vol] 15 U/L 0 - 41 U/L [facility] Bilirubin [Mass/Vol] 0.6 mg/dL 0.3 - 1 .2 mg/dL [facility] Calcium [Mass/Vol] 9.4 mg/dL 8.5 - 10. 5 mg/dL [facility] Chloride [Moles/Vol] 101 mmol/L 98 - 10 9 mmol/L [facility] CO2 [Moles/Vol] 29 mmol/L 22 - 32 mmol/L [facility] Creatinine [Mass/Vol] 1.11 mg/dL 0.60 - 1.30 mg/dL [facility] Comment on above: METHOD TRACEABLE TO IDHI STANDARD eGFR (CKD-EPI)non-race dependent 76 - PINF [facility] Comment on above: Reported eGFR is based on the CKD-EPI 2020 equation that does not use a race coefficient. Glucose [Mass/Vol] 155 mg/dL High 65 - 99 mg/dL [facility] Interpretation and review of laboratory results Abnormal [facility] Potassium [Moles/Vol] 4.9 mmol/L 3.5 - 5.0 mmol/L [facility] Protein [Mass/Vol] 7.3 g/dL 6.0 - 8.0 g/dL [facility] Sodium [Moles/Vol] 139 mmol/L 134 - 146 mmol/L [facility] Urea nitrogen [Mass/Vol] 26 mg/dL High 5 - 23 mg/dL [facility] HGB A1C (GLYCO-HGB)on 2024 Glucose [Mass/Vol] 151 mg/dL Normal [facility] Comment on above: Performed By: #### Dennis SPRINGER, 46199-2 #### [facility] ([id number]) [address] [facility] [facility] [address] [place] [address] HbA1c (Bld) [Mass fraction] 6.9 % High 4.4-5.6 [facility] Comment on above: Result Comment: NOTE ADA Guidelines Result HgbA1c Normal : less than 5.7 % Prediabetes : 5.7 % to 6.4 % Diabetes : > 6.4 % Use with caution in patients with abnormal hemoglobin variants as the half-life of red blood cells and in vivo glycation rates are affected. Performed By: #### Dennis SPRINGER, 26620-4 #### [facility] ([id number]) [address] [facility] [address] [place] [address] Hemoglobin A1con 09-03-2024 Average glucose Estimated from glycated hemoglobin (Bld) [Mass/Vol] 151 mg/dL [facility] HbA1c (Bld) [Mass fraction] 6.9 % High 4.4 - 5.6 % [facility] Comment on above: NOTE ADA Guidelines Result HgbA1c Normal : less than 5.7 % Prediabetes : 5.7 % to 6.4 % Diabetes : > 6.4 % Use with caution in patients with abnormal hemoglobin variants as the half-life of red blood cells and in vivo glycation rates are affected. Interpretation and review of laboratory results Abnormal [facility] COMPREHENSIVE METABOLIC PANE Marcus 06-05-2024 Albumin [Mass/Vol] 3.6 g/dL Normal 3.2-5.3 [facility] Comment on above: Performed By: #### WILLY Collins MP #### [facility] ([id number]) [address], [address] [place] [address] ALP [Catalytic activity/Vol] 117 U/L Normal 39-130 [facility] Comment on above: Performed By: #### C WILLY SPRINGER #### [facility] ([id number]) [address], [address] [place] [address] ALT [Catalytic activity/Vol] 16 U/L Normal 0-40 [facility] Comment on above: Performed By: #### WILLY Collins MP #### [facility] ([id number]) [address], [address] [place] [address] Anion gap [Moles/Vol] 7 mmol/L Normal 5-15 [facility] Comment on above: Performed By: #### WILLY Collins MP #### [facility] ([id number]) [address], [address] [place] [address] AST [Catalytic activity/Vol] 14 U/L Normal 0-41 [facility] Comment on above: Performed By: #### WILLY Collins MP #### [facility] ([id number]) [address], [address] [place] [address] Bilirubin [Mass/Vol] 0.6 mg/dL Normal 0.3-1.2 [facility] Comment on above: Performed By: #### WILLY Collins MP #### [facility] ([id number]) [address], [address] [place] [address] Calcium [Mass/Vol] 8.8 mg/dL Normal 8.5-10.5 [facility] Comment on above: Performed By: #### C MP, HA1C #### [facility] ([id number]) [address], [address] [place] [address] Chloride [Moles/Vol] 107 mmol/L Normal 98-109 [facility] Comment on above: Performed By: #### WILLY Collins MP #### [facility] ([id number]) [address], [address] [place] [address] CO2 [Moles/Vol] 28 mmol/L Normal 22-32 [facility] Comment on above: Performed By: #### WILLY Collins MP #### [facility] ([id number]) [address], [address] [place] [address] Creatinine [Mass/Vol] 1.11 mg/dL Normal 0.60-1.30 [facility] Comment on above: Result Comment: METH OD TRACEABLE TO IDMS STANDARD Performed By: #### WILLY Collins MP #### [facility] ([id number]) [address], [address] [place] [address] GFR/1.73 sq M.predicted among non-blacks MDRD (S/P/Bld) [Vol rate/Area] 76 mL/min/{1.73_m2} Normal >59 [facility] Comment on above: Result Comment: Reported eGFR is based on the CKD-EPI 2020 equation that does not use a race coefficient. Performed By: #### WILLY Collins MP #### [facility] ([id number]) [address], [address] [place] [address] Glucose [Mass/Vol] 156 mg/dL High 65-99 [facility] Comment on above: Performed By: #### WILLY Collins MP #### [facility] ([id number]) [address], [address] [place] [address] Potassium [Moles/Vol] 4.7 mmol/L Normal 3.5-5.0 [facility] Comment on above: Performed By: #### C RACHEAL, WILLY #### [facility] ([id number]) [address], [address] [place] [address] Protein [Mass/Vol] 6.8 g/dL Normal 6.0-8.0 [facility] Comment on above: Performed By: #### C RACHEAL, WILLY #### [facility] ([id number]) [address], [address] [place] [address] Sodium [Moles/Vol] 142 mmol/L Normal 134-146 [facility] Comment on above: Performed By: #### C RACHEAL, YOSI1C #### [facility] ([id number]) [address], [address] [place] [address] Urea nitrogen [Mass/Vol] 24 mg/dL High 5-23 [facility] Comment on above: Performed By: #### C WILLY SPRINGER #### [facility] ([id number]) [address], [address] [place] [address] Comprehensive metabolic pane marcus 06-05-2024 Albumin [Mass/Vol] 3.6 g/dL 3.2 - 5.3 g/dL [facility] ALP [Catalytic activity/Vol] 117 U/L 39 - 130 U/L [facility] ALT No additional P-5'-P [Catalytic activity/Vol] 16 U/L 0 - 40 U/L [facility] Anion gap [Moles/Vol] 7 mmol/L 5 - 15 mmol/L [facility] AST [Catalytic activity/Vol] 14 U/L 0 - 41 U/L [facility] Bilirubin [Mass/Vol] 0.6 mg/dL 0.3 - 1 .2 mg/dL [facility] Calcium [Mass/Vol] 8.8 mg/dL 8.5 - 10. 5 mg/dL [facility] Chloride [Moles/Vol] 107 mmol/L 98 - 10 9 mmol/L [facility] CO2 [Moles/Vol] 28 mmol/L 22 - 32 mmol/L [facility] Creatinine [Mass/Vol] 1.11 mg/dL 0.60 - 1.30 mg/dL [facility] Comment on above: METHOD TRACEABLE TO [facility] STANDARD eGFR (CKD-EPI)non-race dependent 76 - PINF [facility] Comment on above: Reported eGFR is based on the CKD-EPI 2020 equation that does not use a race coefficient. Glucose [Mass/Vol] 156 mg/dL High 65 - 99 mg/dL [facility] Interpretation and review of laboratory results Abnormal [facility] Potassium [Moles/Vol] 4.7 mmol/L 3.5 - 5.0 mmol/L [facility] Protein [Mass/Vol] 6.8 g/dL 6.0 - 8.0 g/dL [facility] Sodium [Moles/Vol] 142 mmol/L 134 - 146 mmol/L [facility] Urea nitrogen [Mass/Vol] 24 mg/dL High 5 - 23 mg/dL [facility] HGB A1C (GLYCO-HGB)on 2024 Glucose [Mass/Vol] 143 mg/dL Normal [facility] Comment on above: Performed By: #### Dennis SPRINGER, 13001-0 #### [facility] ([id number]) [address] [place] [address] HbA1c (Bld) [Mass fraction] 6.6 % High 4.4-5.6 [facility] Comment on above: Result Comment: NOTE ADA Guidelines Result HgbA1c Normal : less than 5.7 % Prediabetes : 5.7 % to 6.4 % Diabetes : > 6.4 % Use with caution in patients with abnormal hemoglobin variants as the half-life of red blood cells and in vivo glycation rates are affected. Performed By: #### Dennis SPRINGER, 49045-3 #### [facility] ([id number]) [address] [place] [address] Prostate specific Ag [Mass/V ol]on 06-05-2024 [facility] PSA SCREEN 0.27 ng/mL Normal 0.00-4.00 [facility] Comment on above: Result Comment: The method used for this test is Timmy [place] DXI chemiluminescent immunoassay. Values obtained by different assay methods cannot be used interchangeably. Performed By: #### C , 62489-9 #### [facility] ([id number]) [address] [place] [address] Prostatic specific antigen s creenon 06-05-2024 Prostate specific Ag [Mass/Vol] 0.27 ng/mL 0.00 - 4.00 ng/mL [facility] Comment on above: The method used for this test is Timmy [place] DXI chemiluminescent immunoassay. Values obtained by different assay methods cannot be used interchangeably. No Panel Informationon 02-28 Inna Jefferson NP 02/29/2024 1:06 PM L Inj/Asp: R subacromial bursa on 02/29/2024 1:02 PM Indications: pain Details: 20 G needle, posterior approach Medications: 40 mg methylPREDNISolone acetate 40 MG/ML Utilizing aseptic technique with universal precautions . Pt given injection Right Shoulder SA space Procedure, treatment alternatives, risks and benefits explained, specific risks discussed. Consent was given by the patient. [facility] MICROALBUMIN - ALBUMIN:CREAT ININE URINE RATIOon 01-17-2024 ALB/CREAT RATIO 16.6 mg/g creat Normal 0.0-30.0 [facility] Comment on above: Performed By: #### M ALBU #### [facility] ([id number]) [address], [address] [place] [address] Albumin DL <= 20 mg/L (U) [Mass/Vol] 2.2 mg/dL High 0.0-1.9 [facility] Comment on above: Performed By: #### M ALBU #### [facility] ([id number]) [address] [place] [address] URINE CREAT 132.81 mg/dL Normal [facility] Comment on above: Performed By: #### M ALBU #### [facility] ([id number]) [address], [address] [place] [address] CBC AND AUTO DIFFon 01-16-20 24 ABSOLUTE BASOPHIL 0.0 X10E9/L Normal 0.0-0.2 [facility] Comment on above: Performed By: #### C BCA, CMP, , , HA1C #### [facility] ([id number]) [address], [address] [place] [address] ABSOLUTE NEUTROPHIL 5.2 X10E9/L Normal 1.5-6.6 [facility] Comment on above: Performed By: #### C BCA, CMP, , , HA1C #### [facility] ([id number]) [address], [address] [place] [address] Basophils/100 WBC (Bld) 0.5 % Normal [facility] Comment on above: Performed By: #### Dennis BCA, CMP, , , HA1C #### [facility] ([id number]) [address], [address] [place] [address] Eosinophils (Bld) [#/Vol] 0.2 10*3/uL Normal 0.0-0.4 [facility] Comment on above: Performed By: #### C BCA, CMP, , , HA1C #### [facility] ([id number]) [address], [address] [place] [address] Eosinophils/100 WBC (Bld) 2.6 % Normal [facility] Comment on above: Performed By: #### C BCA, CMP, , , HA1C #### [facility] ([id number]) [address] [place] [address] Erythrocyte distribution width (RBC) [Ratio] 16.5 % High 11.5-15.0 [facility] Comment on above: Performed By: #### C SUSI, CMP, , , HA1C #### [facility] ([id number]) [address] [place] [address] Hematocrit (Bld) [Volume fraction] 37.1 % Low 39-49 [facility] Comment on above: Performed By: #### C BCA, CMP, , , HA1C #### [facility] ([id number]) [address] [place] [address] Hemoglobin (Bld) [Mass/Vol] 11.7 g/dL Low 13.0-17.0 [facility] Comment on above: Performed By: #### C SUSI, CMP, , , HA1C #### [facility] ([id number]) [address] [place] [address] Lymphocytes (Bld) [#/Vol] 1.3 10*3/uL Normal 1.0-3.5 [facility] Comment on above: Performed By: #### C SUSI, CMP, , , HA1C #### [facility] ([id number]) [address] [address] [place] [address] Lymphocytes/100 WBC (Bld) 18.5 % Normal [facility] Comment on above: Performed By: #### C BCA, CMP, , , HA1C #### [facility] ([id number]) [address] [place] [address] MCH (RBC) [Entitic mass] 25.5 pg Low 27-34 [facility] Comment on above: Performed By: #### C SUSI, CMP, , , HA1C #### [facility] ([id number]) [address] [place] [address] MCHC (RBC) [Mass/Vol] 31.6 g/dL Low 32-36 [facility] Comment on above: Performed By: #### C SUSI, CMP, , , HA1C #### [facility] ([id number]) [address], [address] [place] [address] MCV (RBC) [Entitic vol] 81 fL Normal 80-100 [facility] Comment on above: Performed By: #### C SUSI, CMP, , , HA1C #### [facility] ([id number]) [address] [place] [address] Monocytes (Bld) [#/Vol] 0.3 10*3/uL Normal 0-0.9 [facility] Comment on above: Performed By: #### Dennis BCA, CMP, , , HA1C #### [facility] ([id number]) [address] [place] [address] Monocytes/100 WBC (Bld) 4.9 % Normal [facility] Comment on above: Performed By: #### Dennis BCA, CMP, , , HA1C #### [facility] ([id number]) [address] [place] [address] Neutrophils/100 WBC (Bld) 73.5 % Normal [facility] Comment on above: Performed By: #### C BCA, CMP, , , HA1C #### [facility] ([id number]) [address] [place] [address] Platelet mean volume (Bld) [Entitic vol] 7.9 fL Normal 7-12 [facility] Comment on above: Performed By: #### Dennis BCA, CMP, , , HA1C #### [facility] ([id number]) [address] [place] [address] Platelets (Bld) [#/Vol] 240 10*3/uL Normal 150-450 [facility] Comment on above: Performed By: #### C BCA, CMP, 35502-5, , HA1C #### [facility] ([id number]) [address], [address] [place] [address] RBC COUNT 4.61 X10E12/L Normal 4.10-5.70 [facility] Comment on above: Performed By: #### C BCA, CMP, 84891-5, , HA1C #### [facility] ([id number]) [address] [place] [address] WBC (Bld) [#/Vol] 7.1 10*3/uL Normal 4.0-11.0 [facility] Comment on above: Performed By: #### C BCA, CMP, 18711-7, , HA1C #### [facility] ([id number]) [address] [place] [address] COMPREHENSIVE METABOLIC PANE Marcus 01-16-2024 Albumin [Mass/Vol] 3.6 g/dL Normal 3.2-5.3 [facility] Comment on above: Performed By: #### C BCA, CMP, 34450-4, , HA1C #### [facility] ([id number]) [address] [place] [address] ALP [Catalytic activity/Vol] 121 U/L Normal 39-130 [facility] Comment on above: Performed By: #### C BCA, CMP, 31317-2, , HA1C #### [facility] ([id number]) [address] [place] [address] ALT [Catalytic activity/Vol] 26 U/L Normal 0-40 [facility] Comment on above: Performed By: #### C BCA, CMP, , , HA1C #### [facility] ([id number]) [address], [address] [place] [address] Anion gap [Moles/Vol] 9 mmol/L Normal 5-15 [facility] Comment on above: Performed By: #### C BCA, CMP, , , HA1C #### [facility] ([id number]) [address], [address] [place] [address] AST [Catalytic activity/Vol] 20 U/L Normal 0-41 [facility] Comment on above: Performed By: #### C BCA, CMP, , , HA1C #### [facility] ([id number]) [address], [address] [place] [address] Bilirubin [Mass/Vol] 0.7 mg/dL Normal 0.3-1.2 [facility] Comment on above: Performed By: #### C BCA, CMP, , , HA1C #### [facility] ([id number]) [address], [address] [place] [address] Calcium [Mass/Vol] 9.2 mg/dL Normal 8.5-10.5 [facility] Comment on above: Performed By: #### C BCA, CMP, , , HA1C #### [facility] ([id number]) [address] [place] [address] Chloride [Moles/Vol] 106 mmol/L Normal 98-109 [facility] Comment on above: Performed By: #### C BCA, CMP, , , HA1C #### [facility] ([id number]) [address] [place] [address] CO2 [Moles/Vol] 28 mmol/L Normal 22-32 [facility] Comment on above: Performed By: #### C TEMITOPE GOLDMAN, , , HA1C #### [facility] ([id number]) [address] [place] [address] Creatinine [Mass/Vol] 1.19 mg/dL Normal 0.60-1.30 [facility] Comment on above: Result Comment: METH OD TRACEABLE TO IDMS STANDARD Performed By: #### C TEMITOPE GOLDMAN, , , HA1C #### [facility] ([id number]) [address] [facility] [address] [place] [address] GFR/1.73 sq M.predicted among non-blacks MDRD (S/P/Bld) [Vol rate/Area] 70 mL/min/{1.73_m2} Normal >59 [facility] Comment on above: Result Comment: Reported eGFR is based on the CKD-EPI 2020 equation that does not use a race coefficient. Performed By: #### C TEMITOPE GOLDMAN, , , HA1C #### [facility] ([id number]) [address] [place] [address] Glucose [Mass/Vol] 130 mg/dL High 65-99 [facility] Comment on above: Performed By: #### C TEMITOPE GOLDMAN, , , HA1C #### [facility] ([id number]) [address] [facility] [address] [place] [address] Potassium [Moles/Vol] 4.8 mmol/L Normal 3.5-5.0 [facility] Comment on above: Performed By: #### C SUSI, CMP, , , HA1C #### [facility] ([id number]) [address] [place] [address] Protein [Mass/Vol] 7.0 g/dL Normal 6.0-8.0 [facility] Comment on above: Performed By: #### C SUSI, CMP, , , HA1C #### [facility] ([id number]) [address] [place] [address] Sodium [Moles/Vol] 143 mmol/L Normal 134-146 [facility] Comment on above: Performed By: #### C BCA, CMP, , , HA1C #### [facility] ([id number]) [address] [place] [address] Urea nitrogen [Mass/Vol] 31 mg/dL High 5-23 [facility] Comment on above: Performed By: #### C SUSI, CMP, , , HA1C #### [facility] ([id number]) [address], [address] [place] [address] HGB A1C (GLYCO-HGB)on 2023 Glucose [Mass/Vol] 157 mg/dL Normal [facility] Comment on above: Performed By: #### C SUSI, TEMITOPE, , , HA1C #### [facility] ([id number]) [address], [address] [place] [address] HbA1c (Bld) [Mass fraction] 7.1 % High 4.4-5.6 [facility] Comment on above: Result Comment: NOTE ADA Guidelines Result HgbA1c Normal : less than 5.7 % Prediabetes : 5.7 % to 6.4 % Diabetes : > 6.4 % Use with caution in patients with abnormal hemoglobin variants as the half-life of red blood cells and in vivo glycation rates are affected. Performed By: #### C BCA, CMP, , , HA1C #### [facility] ([id number]) [address], [address] [place] [address] Lipid 1996 panelon 4 Cholesterol [Mass/Vol] 77 mg/dL Low 150-200 [facility] Comment on above: Performed By: #### C BCA, CMP, 28419-4, 09466-0, HA1C #### [facility] ([id number]) [address], [address] [place] [address] Cholesterol in HDL [Mass/Vol] 27 mg/dL Low >39 [facility] Comment on above: Result Comment: HDL <40 mg/dL - High Risk HDL > or = 40mg/dL- Desirable HDL >60 mg/dL - Negative Risk Performed By: #### C BCA, CMP, 19644-7, , HA1C #### [facility] ([id number]) [address], [address] [place] [address] Cholesterol in LDL [Mass/Vol] 35 mg/dL Normal <130 [facility] Comment on above: Result Comment: LDL <100 mg/dL - Desirable LDL >160 mg/dL - High Risk Performed By: #### C BCA, CMP, 97357-9, , HA1C #### [facility] ([id number]) [address], [address] [place] [address] Cholesterol in VLDL [Mass/Vol] 15 mg/dL Normal 0-30 [facility] Comment on above: Performed By: #### C BCA, CMP, 69883-9, , HA1C #### [facility] ([id number]) [address], [address] [place] [address] CHOLESTEROL:HDL 2.9 Normal 1.0-5.0 [facility] Comment on above: Performed By: #### C SUSI, CMP, 61531-0, , HA1C #### [facility] ([id number]) [address], [address] [place] [address] Triglyceride [Mass/Vol] 75 mg/dL Normal 27-150 [facility] Comment on above: Performed By: #### C BCA, CMP, 01186-5, , HA1C #### [facility] ([id number]) [address], [address] [place] [address] MAGNESIUMon 01-16-2024 Magnesium [Mass/Vol] 1.9 mg/dL Normal 1.8-2.6 [facility] Comment on above: Performed By: #### C SUSI, CMP, 27156-0, , HA1C #### [facility] ([id number]) [address], [address] [place] [address] COMPREHENSIVE METABOLIC PANE Marcus 09-07-2023 Albumin [Mass/Vol] 3.8 g/dL Normal 3.2-5.3 [facility] Comment on above: Performed By: #### Dennis SPRINGER, 50346-0 #### [facility] ([id number]) [address], [address] [place] [address] ALP [Catalytic activity/Vol] 101 U/L Normal 39-130 [facility] Comment on above: Performed By: #### Dennis SPRINGER, 50993-8 #### [facility] ([id number]) [address], [address] [place] [address] ALT [Catalytic activity/Vol] 14 U/L Normal 0-40 [facility] Comment on above: Performed By: #### Dennis SPRINGER, 27009-7 #### [facility] ([id number]) [address], [address] [place] [address] Anion gap [Moles/Vol] 8 mmol/L Normal 5-15 [facility] Comment on above: Performed By: #### Dennis SPRINGER, 33365-4 #### [facility] ([id number]) [address] [place] [address] AST [Catalytic activity/Vol] 14 U/L Normal 0-41 [facility] Comment on above: Performed By: #### Dennis SPRINGER, 34037-1 #### [facility] ([id number]) [address], [address] [place] [address] Bilirubin [Mass/Vol] 0.6 mg/dL Normal 0.3-1.2 [facility] Comment on above: Performed By: #### Dennis SPRINGER 19888-4 #### [facility] ([id number]) [address], [address] [place] [address] Calcium [Mass/Vol] 8.8 mg/dL Normal 8.5-10.5 [facility] Comment on above: Performed By: #### Dennis SPRINGER 28651-9 #### [facility] ([id number]) [address] [place] [address] Chloride [Moles/Vol] 100 mmol/L Normal 98-109 [facility] Comment on above: Performed By: #### Dennis SPRINGER 31195-8 #### [facility] ([id number]) [address], [address] [place] [address] CO2 [Moles/Vol] 31 mmol/L Normal 22-32 [facility] Comment on above: Performed By: #### Dennis SPRNIGER, 95444-6 #### [facility] ([id number]) [address] [place] [address] Creatinine [Mass/Vol] 1.29 mg/dL Normal 0.60-1.30 [facility] Comment on above: Result Comment: METH OD TRACEABLE TO IDMS STANDARD Performed By: #### Dennis SPRINGER, 53033-3 #### [facility] ([id number]) [address], [address] [place] [address] GFR/1.73 sq M.predicted among non-blacks MDRD (S/P/Bld) [Vol rate/Area] 64 mL/min/{1.73_m2} Normal >59 [facility] Comment on above: Result Comment: Reported eGFR is based on the CKD-EPI 2020 equation that does not use a race coefficient. Performed By: #### Dennis SPRINGER, 93731-4 #### [facility] ([id number]) [address], [address] [place] [address] Glucose [Mass/Vol] 119 mg/dL High 65-99 [facility] Comment on above: Performed By: #### Dennis SPRINGER, 42818-6 #### [facility] ([id number]) [address], [address] [place] [address] Potassium [Moles/Vol] 4.4 mmol/L Normal 3.5-5.0 [facility] Comment on above: Performed By: #### Dennis SPRINGER, 03405-5 #### [facility] ([id number]) [address], [address] [place] [address] Protein [Mass/Vol] 7.2 g/dL Normal 6.0-8.0 [facility] Comment on above: Performed By: #### Dennis SPRINGER, 32417-8 #### [facility] ([id number]) [address], [address] [place] [address] Sodium [Moles/Vol] 139 mmol/L Normal 134-146 [facility] Comment on above: Performed By: #### Dennis SPRINGER, 38787-3 #### [facility] ([id number]) [address], [address] [place] [address] Urea nitrogen [Mass/Vol] 21 mg/dL Normal 5-23 [facility] Comment on above: Performed By: #### C , 79768-3 #### [facility] ([id number]) [address] [place] [address] Comprehensive metabolic pane [facility] 09-07-2023 Albumin [Mass/Vol] 3.8 g/dL 3.2 - 5.3 g/dL [facility] ALP [Catalytic activity/Vol] 101 U/L 39 - 130 U/L [facility] ALT No additional P-5'-P [Catalytic activity/Vol] 14 U/L 0 - 40 U/L [facility] Anion gap [Moles/Vol] 8 mmol/L 5 - 15 mmol/L [facility] AST [Catalytic activity/Vol] 14 U/L 0 - 41 U/L [facility] Bilirubin [Mass/Vol] 0.6 mg/dL 0.3 - 1 .2 mg/dL [facility] Calcium [Mass/Vol] 8.8 mg/dL 8.5 - 10. 5 mg/dL [facility] Chloride [Moles/Vol] 100 mmol/L 98 - 10 9 mmol/L [facility] CO2 [Moles/Vol] 31 mmol/L 22 - 32 mmol/L [facility] Creatinine [Mass/Vol] 1.29 mg/dL 0.60 - 1.30 mg/dL [facility] Comment on above: METHOD TRACEABLE TO IDHI STANDARD eGFR (CKD-EPI)non-race dependent 64 - PINF [facility] Comment on above: Reported eGFR is based on the CKD-EPI 2020 equation that does not use a race coefficient. Glucose [Mass/Vol] 119 mg/dL High 65 - 99 mg/dL [facility] Potassium [Moles/Vol] 4.4 mmol/L 3.5 - 5.0 mmol/L [facility] Protein [Mass/Vol] 7.2 g/dL 6.0 - 8.0 g/dL [facility] Sodium [Moles/Vol] 139 mmol/L 134 - 146 mmol/L [facility] Urea nitrogen [Mass/Vol] 21 mg/dL 5 - 23 mg/dL [facility] HGB A1C (GLYCO-HGB)on 2023 Glucose [Mass/Vol] 134 mg/dL Normal [facility] Comment on above: Performed By: #### Dennis SPRINGER, 91356-5 #### [facility] ([id number]) [address], [address] [place] [address] HbA1c (Bld) [Mass fraction] 6.3 % High 4.4-5.6 [facility] Comment on above: Result Comment: NOTE ADA Guidelines Result HgbA1c Normal : less than 5.7 % Prediabetes : 5.7 % to 6.4 % Diabetes : > 6.4 % Use with caution in patients with abnormal hemoglobin variants as the half-life of red blood cells and in vivo glycation rates are affected. Performed By: #### Dennis SPRINGER, 78499-3 #### [facility] ([id number]) [address], [address] [place] [address] Lipid 1996 panelon Cholesterol [Mass/Vol] 145 mg/dL Low 150 - 200 mg/dL [facility] Cholesterol in HDL [Mass/Vol] 30 mg/dL Low 39 - PINF mg/dL [facility] Comment on above: HDL <40 mg/dL - High Risk HDL > or = 40mg/dL- Desirable HDL >60 mg/dL - Negative Risk Cholesterol in LDL [Mass/Vol] 90 mg/dL NINF - 130 mg/dL [facility] Comment on above: LDL <100 mg/dL - Desirable LDL >160 mg/dL - High Risk Cholesterol in VLDL [Mass/Vol] 25 mg/dL 0 - 30 mg/dL [facility] Cholesterol.total/Ch olesterol in HDL [Mass ratio] 4.8 {ratio} 1.0 - 5.0 [facility] Triglyceride [Mass/Vol] 123 mg/dL 27 - 150 mg/dL [facility] Cholesterol [Mass/Vol] 145 mg/dL Low 150-200 [facility] Comment on above: Performed By: #### Dennis SPRINGER, 61226-1 #### [facility] ([id number]) [address], [address] [place] [address] Cholesterol in HDL [Mass/Vol] 30 mg/dL Low >39 [facility] Comment on above: Result Comment: HDL <40 mg/dL - High Risk HDL > or = 40mg/dL- Desirable HDL >60 mg/dL - Negative Risk Performed By: #### Dennis SPRINGER, 73062-9 #### [facility] ([id number]) [address], [address] [place] [address] Cholesterol in LDL [Mass/Vol] 90 mg/dL Normal <130 [facility] Comment on above: Result Comment: LDL <100 mg/dL - Desirable LDL >160 mg/dL - High Risk Performed By: #### Dennis SPRINGER, 12332-6 #### [facility] ([id number]) [address], [address] [place] [address] Cholesterol in VLDL [Mass/Vol] 25 mg/dL Normal 0-30 [facility] Comment on above: Performed By: #### Dennis SPRINGER, 14171-2 #### [facility] ([id number]) [address], [address] [place] [address] CHOLESTEROL:HDL 4.8 Normal 1.0-5.0 [facility] Comment on above: Performed By: #### C RACHEAL, 06980-2 #### [facility] ([id number]) [address], [address] [place] [address] Triglyceride [Mass/Vol] 123 mg/dL Normal 27-150 [facility] Comment on above: Performed By: #### C RACHEAL, 94638-4 #### [facility] ([id number]) [address], [address] [place] [address] No Panel Informationon 09-06 Interpretation and review of laboratory results Abnormal [facility] CBC AUTO DIFFon 10-01-2020 BASO # 0.1 103/ul Normal 0.0-0.1 [facility] Comment on above: Performed By: #### T SH, LIPID, CMP, PSAD, T4 #### [facility] [address] [place] [address] Wanda Anamaria Basophils/100 WBC (Bld) 0.8 % Normal 0.2-2.0 [facility] Comment on above: Performed By: #### T SH, LIPID, CMP, PSAD, T4 #### [facility] [address] [place], [place] [address] Wanda Anamaria EO # 0.3 103/ul Normal 0.0-0.7 [facility] Comment on above: Performed By: #### T SH, LIPID, CMP, PSAD, T4 #### [facility] [address] [place], [place] [address] Wanda Anamaria Eosinophils/100 WBC (Bld) 3.5 % Normal 0.9-7.0 [facility] Comment on above: Performed By: #### T SH, LIPID, CMP, PSAD, T4 #### [facility] [address] [place], [place] [address] Wanda Anamaria Erythrocyte distribution width (RBC) [Ratio] 15.2 % Critically high 11.0-15.0 [facility] Comment on above: Performed By: #### T SH, LIPID, CMP, PSAD, T4 #### [facility] [address] [place] [address] Wanda Anamaria Hematocrit (Bld) [Volume fraction] 42.3 % Normal 42.0-54.0 [facility] Comment on above: Performed By: #### T SH, LIPID, CMP, PSAD, T4 #### [facility] [address] [place] [address] Wanda Anamaria Hemoglobin (Bld) [Mass/Vol] 13.3 g/dL Critically low 14.0-18.0 [facility] Comment on above: Performed By: #### T SH, LIPID, CMP, PSAD, T4 #### [facility] [address] [place] [address] Wanda Anamaria IG # 0.04 10e3/ul Critically high 0.00-0.03 [facility] Comment on above: Performed By: #### T SH, LIPID, CMP, PSAD, T4 #### [facility] [address] [place] [address] Wanda Anamaria IG % 0.4 % Normal 0.0-0.5 [facility] Comment on above: Performed By: #### T SH, LIPID, CMP, PSAD, T4 #### [facility] [address] [place] [address] Wanda Anamaria LYMPH # 2.8 103/ul Normal 1.2-3.8 [facility] Comment on above: Performed By: #### T SH, LIPID, CMP, PSAD, T4 #### [facility] [address] [place] [address] Wanda Anamaria Lymphocytes/100 WBC (Bld) 30.2 % Normal 20.5-60.0 [facility] Comment on above: Performed By: #### T SH, LIPID, CMP, PSAD, T4 #### [facility] [address] [place] [address] Wanda Anamaria MANUAL DIFF REQ NO Normal [facility] Comment on above: Performed By: #### T SH, LIPID, CMP, PSAD, T4 #### [facility] [address] [place], [place] [address] Wanda Conrad MCH (RBC) [Entitic mass] 26.4 pg Normal 25.9-34.0 [facility] Comment on above: Performed By: #### T SH, LIPID, CMP, PSAD, T4 #### [facility] [address] [place] [address] Wanda Conrad MCHC (RBC) [Mass/Vol] 31.4 g/dL Normal 29.9-35.2 [facility] Comment on above: Performed By: #### T SH, LIPID, CMP, PSAD, T4 #### [facility] [address] [place] [address] Wanda Conrad MCV (RBC) [Entitic vol] 83.9 fL Normal 80.0-94.0 [facility] Comment on above: Performed By: #### T SH, LIPID, CMP, PSAD, T4 #### [facility] [address] [place] [address] Wandavanda Antoineen MONO # 0.6 103/ul Normal 0.3-0.8 [facility] Comment on above: Performed By: #### T SH, LIPID, CMP, PSAD, T4 #### [facility] [address] [place] [address] Wanda Anamaria Monocytes/100 WBC (Bld) 6.2 % Normal 1.7-12.0 [facility] Comment on above: Performed By: #### T SH, LIPID, CMP, PSAD, T4 #### [facility] [address] [place] [address] Wandavanda Conrad NEUT # 5.4 103/ul Normal 1.4-6.5 [facility] Comment on above: Performed By: #### T SH, LIPID, CMP, PSAD, T4 #### [facility] [address] [place] [address] Wanda Anamaria Neutrophils/100 WBC (Bld) 58.9 % Normal 43.0-75.0 [facility] Comment on above: Performed By: #### T SH, LIPID, CMP, PSAD, T4 #### [facility] [address] [place] [address] Wanda Conrad Platelet mean volume (Bld) [Entitic vol] 10.5 fL Normal 9.5-13.5 [facility] Comment on above: Performed By: #### T SH, LIPID, CMP, PSAD, T4 #### [facility] [address] [address] Wandavanda Conrad PLT 252 103/ul Normal 150-450 [facility] Comment on above: Performed By: #### T SH, LIPID, CMP, PSAD, T4 #### [facility] [address] [address] Wanda Anamaria RBC 5.04 106/ul Normal 4.70-6.10 [facility] Comment on above: Performed By: #### T SH, LIPID, CMP, PSAD, T4 #### [facility] [address] [address] Wandavanda Conrad WBC 9.1 103/ul Normal 4.0-11.0 [facility] Comment on above: Performed By: #### T SH, LIPID, CMP, PSAD, T4 #### [facility] [address] [address] Wanda Conrad LIPID PROFILEon 10-01-2020 CHOL-HDL RATIO NORM SEE BELOW Normal [facility] Comment on above: Result Comment: 3.3 - 4.4 LOW RISK 4.4 - 7.1 AVERAGE RISK 7.1 - 11.0 MODERATE RISK >11.0 HIGH RISK Performed By: #### T SH, LIPID, CMP, PSAD, T4 #### [facility] [address] [address] Wandavanda Conrad Cholesterol [Mass/Vol] 137 mg/dL Normal <=200 [facility] Comment on above: Performed By: #### T SH, LIPID, CMP, PSAD, T4 #### [facility] [address] [address] Wanda Conrad Cholesterol in HDL [Mass/Vol] 31 mg/dL Normal [facility] Comment on above: Performed By: #### T SH, LIPID, CMP, PSAD, T4 #### [facility] [address] [address] Wanda Atnoineen Cholesterol in LDL [Mass/Vol] 81.8 mg/dL Normal [facility] Comment on above: Performed By: #### T SH, LIPID, CMP, PSAD, T4 #### [facility] [address] [address] Wanda Anamaria Cholesterol.total/Ch olesterol in HDL [Mass ratio] 4.4 {ratio} Normal [facility] Comment on above: Performed By: #### T SH, LIPID, CMP, PSAD, T4 #### [facility] [address] [address] Wanda Anamaria HDL NORMAL > or = 60 mg/dl - LO W CARDIOVASCULAR RISK <40 mg/dl - HIGH CARDIOVASCULAR RISK Normal [facility] Comment on above: Performed By: #### T SH, LIPID, CMP, PSAD, T4 #### [facility] [address] [place] [address] Wandavanda Conrad LDL CALC NORMAL SEE BELOW Normal [facility] Comment on above: Result Comment: <100 mg/dl OPTIMAL 100 - 129 mg/dl NEAR OR ABOVE OPTIMAL 130 - 159 mg/dl BORDERLINE HIGH 160 - 189 mg/dl HIGH >190 mg/dl VERY HIGH Performed By: #### T SH, LIPID, CMP, PSAD, T4 #### [facility] [address] [place] [address] Wanda Anamaria Triglyceride [Mass/Vol] 121 mg/dL Normal <=150 [facility] Comment on above: Performed By: #### T SH, LIPID, CMP, PSAD, T4 #### [facility] [address] [place] [address] Wanda Anamaria VLDL CALC 24.2 mg/dL Normal [facility] Comment on above: Performed By: #### T SH, LIPID, CMP, PSAD, T4 #### [facility] [address] [address] Wanda Anamaria PROF 14(COMP METB)on 021 Albumin [Mass/Vol] 3.3 g/dL Critically low 3.5-5.0 [facility] Comment on above: Performed By: #### T SH, LIPID, CMP, PSAD, T4 #### [facility] [address] [place] [address] Wanda Anamaria Albumin/Globulin [Mass ratio] 0.7 {ratio} Normal [facility] Comment on above: Performed By: #### T SH, LIPID, CMP, PSAD, T4 #### [facility] [address] [place] [address] Wanda Anamaria ALP [Catalytic activity/Vol] 113 U/L Normal 38-126 [facility] Comment on above: Performed By: #### T SH, LIPID, CMP, PSAD, T4 #### [facility] [address] [place] [address] Wanda Anamaria ALT [Catalytic activity/Vol] 25 U/L Normal 21-72 [facility] Comment on above: Performed By: #### T SH, LIPID, CMP, PSAD, T4 #### [facility] [address] [place] [address] Wanda Anamaria Anion gap [Moles/Vol] 12.4 mmol/L Normal [facility] Comment on above: Performed By: #### T SH, LIPID, CMP, PSAD, T4 #### [facility] [address] [place] [address] Wanda Anamaria AST [Catalytic activity/Vol] 16 U/L Critically low 17-59 [facility] Comment on above: Performed By: #### T SH, LIPID, CMP, PSAD, T4 #### [facility] [address] [place] [address] Wanda Anamaria Bilirubin [Mass/Vol] 0.4 mg/dL Normal 0.2-1.3 [facility] Comment on above: Performed By: #### T SH, LIPID, CMP, PSAD, T4 #### [facility] [address] [place] [address] Wanda Anamaria Calcium [Mass/Vol] 8.8 mg/dL Normal 8.4-10.2 [facility] Comment on above: Performed By: #### T SH, LIPID, CMP, PSAD, T4 #### [facility] [address] [place], [place] [address] Wanda Anamaria Chloride [Moles/Vol] 102 mmol/L Normal 98-107 [facility] Comment on above: Performed By: #### T SH, LIPID, CMP, PSAD, T4 #### [facility] [address] [address] Wanda Anamaria CO2 [Moles/Vol] 30.0 mmol/L Normal 22.0-30.0 [facility] Comment on above: Performed By: #### T SH, LIPID, CMP, PSAD, T4 #### [facility] [address] [address] Wanda Anamaria Creatinine [Mass/Vol] 1.29 mg/dL Critically high 0.66-1.25 [facility] Comment on above: Performed By: #### T SH, LIPID, CMP, PSAD, T4 #### [facility] [address] [place] [address] Wanda Anamaria EGFR-AF EGYPTIAN >60 Normal >=60 [facility] Comment on above: Performed By: #### T SH, LIPID, CMP, PSAD, T4 #### [facility] [address] [address] Wanda Anamaria EGFR-NON AF EGYPTIAN 58 mL/min/1.73m2 Critically low >=60 [facility] Comment on above: Performed By: #### T SH, LIPID, CMP, PSAD, T4 #### [facility] [address] [place] [address] Wanda Anamaria Globulin (S) [Mass/Vol] 4.5 g/dL Normal [facility] Comment on above: Performed By: #### T SH, LIPID, CMP, PSAD, T4 #### [facility] [address] [place] [address] Wanda Anamaria Glucose [Mass/Vol] 153 mg/dL Critically high 74-106 [facility] Comment on above: Performed By: #### T SH, LIPID, CMP, PSAD, T4 #### [facility] [address] [address] Wanda Anamaria Potassium [Moles/Vol] 4.4 mmol/L Normal 3.4-5.0 [facility] Comment on above: Performed By: #### T SH, LIPID, CMP, PSAD, T4 #### [facility] [address] [address] Wanda Anamaria Protein [Mass/Vol] 7.8 g/dL Normal 6.1-8.2 [facility] Comment on above: Performed By: #### T SH, LIPID, CMP, PSAD, T4 #### [facility] [address] [place] [address] Wanda Anamaria Sodium [Moles/Vol] 140 mmol/L Normal 137-145 The [facility] Comment on above: Performed By: #### T SH, LIPID, CMP, PSAD, T4 #### [facility] [address] [place] [address] Wanda Anamaria Urea nitrogen [Mass/Vol] 28.0 mg/dL Critically high 9.0-20.0 The [facility] Comment on above: Performed By: #### T SH, LIPID, CMP, PSAD, T4 #### [facility] [address] [place] [address] Wanda Anamaria Urea nitrogen/Creatinine [Mass ratio] 21.7 mg/mg Normal [facility] Comment on above: Performed By: #### T SH, LIPID, CMP, PSAD, T4 #### [facility] [address] [place] [address] Wanda Anamaria T4on 10-01-2020 T4 [Mass/Vol] 5.90 ug/dL Normal 5.53-11.00 The [facility] Comment on above: Performed By: #### T SH, LIPID, CMP, PSAD, T4 #### [facility] [address] [place] [address] Wanda Anamaria TSHon 10-01-2020 TSH 2.487 uIU/mL Normal 0.470-4.680 The [facility] Comment on above: Performed By: #### T SH, LIPID, CMP, PSAD, T4 #### [facility] [address] [place] [address] Wanda Anamaria TSH RANGE SEE BELOW Normal [facility] Comment on above: Result Comment: <0.3 4 UIU/ml HYPERTHYROID 0.34-5.60 UIU/ml EUTHYROID >5.60 UIU/ml HYPOTHYROID Performed By: #### T SH, LIPID, CMP, PSAD, T4 #### [facility] [address] [place], [place] [id number] Wanda Conrad XR LSPINE MIN 4 VIEWSon [...] EFRA HERBERT Date: 2020-04-04 15:05 Normal [facility] ACETAMINOPHENon 11-25-2019 Acetaminophen [Mass/Vol] ug/mL Critically low 10.1-30.0 [facility] Comment on above: Performed By: #### A CET #### [facility] [address] [place] [address] Wanda Conrad AMMONIAon 11-25-2019 Ammonia (P) [Moles/Vol] 7 umol/L Critically low 10-30 [facility] Comment on above: Performed By: #### A MM #### [facility] [address] [place] [address] Wanda Conrad CBC AUTO DIFFon 11-25-2019 BASO # 0.0 103/ul Normal 0.0-0.1 [facility] Comment on above: Performed By: #### T SH, LIPID, CMP, PSAD, T4 #### [facility] [address] [place] [address] Wanda Conrad Basophils/100 WBC (Bld) 0.4 % Normal 0.2-2.0 [facility] Comment on above: Performed By: #### T SH, LIPID, CMP, PSAD, T4 #### [facility] [address] [place] [address] Wandavanda Conrad EO # 0.2 103/ul Normal 0.0-0.7 [facility] Comment on above: Performed By: #### T SH, LIPID, CMP, PSAD, T4 #### [facility] [address] [place] [address] Wanda Conrad Eosinophils/100 WBC (Bld) 1.8 % Normal 0.9-7.0 [facility] Comment on above: Performed By: #### T SH, LIPID, CMP, PSAD, T4 #### [facility] [address] [place] [address] Wanda Conrad Erythrocyte distribution width (RBC) [Ratio] 14.1 % Normal 11.0-15.0 [facility] Comment on above: Performed By: #### T SH, LIPID, CMP, PSAD, T4 #### [facility] [address] [place] [address] Wanda Conrad Hematocrit (Bld) [Volume fraction] 41.2 % Critically low 42.0-54.0 [facility] Comment on above: Performed By: #### T SH, LIPID, CMP, PSAD, T4 #### [facility] [address] [place] [address] Wanda Conrad Hemoglobin (Bld) [Mass/Vol] 13.3 g/dL Critically low 14.0-18.0 [facility] Comment on above: Performed By: #### T SH, LIPID, CMP, PSAD, T4 #### [facility] [address] [place] [address] Wandavanda Conrad IG # 0.05 10e3/ul Critically high 0.00-0.03 The [facility] Comment on above: Performed By: #### T SH, LIPID, CMP, PSAD, T4 #### [facility] [address] [place] [address] Wanda Anamaria IG % 0.5 % Normal 0.0-0.5 [facility] Comment on above: Performed By: #### T SH, LIPID, CMP, PSAD, T4 #### [facility] [address] [place], [place] [id number] Wanda Anamaria LYMPH # 2.3 103/ul Normal 1.2-3.8 [facility] Comment on above: Performed By: #### T SH, LIPID, CMP, PSAD, T4 #### [facility] [address] [place], [place] [id number] Wanda Anamaria Lymphocytes/100 WBC (Bld) 21.1 % Normal 20.5-60.0 The [facility] Comment on above: Performed By: #### T SH, LIPID, CMP, PSAD, T4 #### [facility] [address] [place], [place] [id number] Wanda Anamaria MANUAL DIFF REQ NO Normal [facility] Comment on above: Performed By: #### T SH, LIPID, CMP, PSAD, T4 #### [facility] [address] [place] [address] Wanda Anamaria MCH (RBC) [Entitic mass] 26.1 pg Normal 25.9-34.0 [facility] Comment on above: Performed By: #### T SH, LIPID, CMP, PSAD, T4 #### [facility] [address] [place], [place] [id number] Wandavanda Antoineen MCHC (RBC) [Mass/Vol] 32.3 g/dL Normal 29.9-35.2 [facility] Comment on above: Performed By: #### T SH, LIPID, CMP, PSAD, T4 #### [facility] [address] [place] [address] Wanda Anamaria MCV (RBC) [Entitic vol] 80.9 fL Normal 80.0-94.0 The [facility] Comment on above: Performed By: #### T SH, LIPID, CMP, PSAD, T4 #### [facility] [address] [place] [address] Wanda Anamaria MONO # 0.5 103/ul Normal 0.3-0.8 [facility] Comment on above: Performed By: #### T SH, LIPID, CMP, PSAD, T4 #### [facility] [address] [place] [address] Wanda Anamaria Monocytes/100 WBC (Bld) 4.8 % Normal 1.7-12.0 [facility] Comment on above: Performed By: #### T SH, LIPID, CMP, PSAD, T4 #### [facility] [address] [address] Wandavanda Antoineen NEUT # 7.8 103/ul Critically high 1.4-6.5 The [facility] Comment on above: Performed By: #### T SH, LIPID, CMP, PSAD, T4 #### [facility] [address] [address] Wanda Conrad Neutrophils/100 WBC (Bld) 71.4 % Normal 43.0-75.0 [facility] Comment on above: Performed By: #### T SH, LIPID, CMP, PSAD, T4 #### [facility] [address] [place] [address] Wanda Conrad Platelet mean volume (Bld) [Entitic vol] 9.6 fL Normal 9.5-13.5 [facility] Comment on above: Performed By: #### T SH, LIPID, CMP, PSAD, T4 #### [facility] [address] [id number] Wandavanda Antoineen PLT 287 103/ul Normal 150-450 [facility] Comment on above: Performed By: #### T SH, LIPID, CMP, PSAD, T4 #### [facility] [address] [place], [place] [address] Wanda Anamaria RBC 5.09 106/ul Normal 4.70-6.10 [facility] Comment on above: Performed By: #### T SH, LIPID, CMP, PSAD, T4 #### [facility] [address] [id number] Wanda Anamaria WBC 10.8 103/ul Normal 4.0-11.0 [facility] Comment on above: Performed By: #### T SH, LIPID, CMP, PSAD, T4 #### [facility] [address] [id number] [address] HEAD WO CONon 11-25-2019 CT HEAD [...] by: EFRA MARRERO Date: 2019-11-25 01:49 Normal [facility] ETHANOL (BLD ALC)on 11-25-19 20 ALC NOTE NOTE: 80 mg/dl is [facility] legal limit for a blood alcohol level Normal [facility] Comment on above: Performed By: #### T SH, LIPID, CMP, PSAD, T4 #### [facility] [address] [address] Wanda Antoineen Ethanol [Mass/Vol] 205 mg/dL Normal [facility] Comment on above: Performed By: #### T SH, LIPID, CMP, PSAD, T4 #### [facility] [address] [id number] Wanda Conrad PROF 14(COMP METB)on 020 Albumin [Mass/Vol] 3.2 g/dL Critically low 3.5-5.0 [facility] Comment on above: Performed By: #### T SH, LIPID, CMP, PSAD, T4 #### [facility] [address] [id number] Wandavanda Conrad Albumin/Globulin [Mass ratio] 0.8 {ratio} Normal [facility] Comment on above: Performed By: #### T SH, LIPID, CMP, PSAD, T4 #### [facility] [address] [place], [place] [address] Wanda Anamaria ALP [Catalytic activity/Vol] 111 U/L Normal 38-126 [facility] Comment on above: Performed By: #### T SH, LIPID, CMP, PSAD, T4 #### [facility] [address] [address] Wanda Anamaria ALT [Catalytic activity/Vol] 23 U/L Normal 21-72 [facility] Comment on above: Performed By: #### T SH, LIPID, CMP, PSAD, T4 #### [facility] [address] [address] Wanda Anamaria Anion gap [Moles/Vol] 16.5 mmol/L Normal [facility] Comment on above: Performed By: #### T SH, LIPID, CMP, PSAD, T4 #### [facility] [address] [place] [address] Wanda Anamaria AST [Catalytic activity/Vol] 15 U/L Critically low 17-59 [facility] Comment on above: Performed By: #### T SH, LIPID, CMP, PSAD, T4 #### [facility] [address] [place] [address] Wanda Anamaria Bilirubin [Mass/Vol] 0.3 mg/dL Normal 0.2-1.3 [facility] Comment on above: Performed By: #### T SH, LIPID, CMP, PSAD, T4 #### [facility] [address] [place] [address] Wanda Anamaria Calcium [Mass/Vol] 8.2 mg/dL Critically low 8.4-10.2 e [facility] Comment on above: Performed By: #### T SH, LIPID, CMP, PSAD, T4 #### [facility] [address] [place] [address] Wanda Anamaria Chloride [Moles/Vol] 98 mmol/L Normal 98-107 [facility] Comment on above: Performed By: #### T SH, LIPID, CMP, PSAD, T4 #### [facility] [address] [place] [address] Wanda Anamaria CO2 [Moles/Vol] 23.2 mmol/L Normal 22.0-30.0 The [facility] Comment on above: Performed By: #### T SH, LIPID, CMP, PSAD, T4 #### [facility] [address] [id number] Wanda Anamaria Creatinine [Mass/Vol] 0.91 mg/dL Normal 0.66-1.25 [facility] Comment on above: Performed By: #### T SH, LIPID, CMP, PSAD, T4 #### [facility] [address] [address] Wanda Anamaria EGFR-AF EGYPTIAN >60 Normal >=60 [facility] Comment on above: Performed By: #### T SH, LIPID, CMP, PSAD, T4 #### [facility] [address] [place] [address] Wanda Anamaria EGFR-NON AF EGYPTIAN >60 Normal >=60 [facility] Comment on above: Performed By: #### T SH, LIPID, CMP, PSAD, T4 #### [facility] [address] [place] [address] Wanda Anamaria Globulin (S) [Mass/Vol] 4.1 g/dL Normal [facility] Comment on above: Performed By: #### T SH, LIPID, CMP, PSAD, T4 #### [facility] [address] [place] [address] Wanda Anamaria Glucose [Mass/Vol] 231 mg/dL Critically high 74-106 [facility] Comment on above: Performed By: #### T SH, LIPID, CMP, PSAD, T4 #### [facility] [address] [place] [address] Wanda Anamaria Potassium [Moles/Vol] 3.7 mmol/L Normal 3.4-5.0 [facility] Comment on above: Performed By: #### T SH, LIPID, CMP, PSAD, T4 #### [facility] [address] [place] [address] Wanda Anamaria Protein [Mass/Vol] 7.3 g/dL Normal 6.1-8.2 [facility] Comment on above: Performed By: #### T SH, LIPID, CMP, PSAD, T4 #### [facility] [address] [place] [address] Wanda Anamaria Sodium [Moles/Vol] 134 mmol/L Critically low 137-145 Th e [facility] Comment on above: Performed By: #### T SH, LIPID, CMP, PSAD, T4 #### [facility] [address] [address] Wanda Conrad Urea nitrogen [Mass/Vol] 22.0 mg/dL Critically high 9.0-20.0 [facility] Comment on above: Performed By: #### T SH, LIPID, CMP, PSAD, T4 #### [facility] [address] [address] Wanda Conrad Urea nitrogen/Creatinine [Mass ratio] 24.2 mg/mg Normal [facility] Comment on above: Performed By: #### T SH, LIPID, CMP, PSAD, T4 #### [facility] [address] [place] [address] Wanda Conrad SALICYLATEon 11-25-2019 SALICYLATE 1.3 mg/dL Normal <=20.0 [facility] Comment on above: Performed By: #### T SH, LIPID, CMP, PSAD, T4 #### [facility] [address] [place] [address] Wanda Conrad XR CHEST 1 Von 11-25-2019 XR CHEST 1 V CHEST RADIOGRAPH: HISTORY: Pain. COMPARISON: None available. TECHNIQUE: AP radiograph of was performed of the chest. FINDINGS: SUPPORT APPARATUS: None. CARDIOMEDIASTINAL SILHOUETTE: Normal. AIRWAYS/LUNGS: Clear. PLEURAL SPACES: No pleural effusion or pneumothorax. BONES AND SOFT TISSUES: No acute abnormality. IMPRESSION: Normal chest radiograph. Electronically authenticated by: EFRA MARRERO Date: 2019-11-25 01:51 Normal [facility] XR PELVIS 1_2 VIEWSon 2019 [...] EFRA MARRERO Date: 2019-11-25 01:52 Normal [facility] CBC AUTO DIFFon 10-18-2019 BASO # 0.1 103/ul Normal 0.0-0.1 [facility] Comment on above: Performed By: #### C BC #### [facility] [address] [place], [place] [address] Wanda Anamaria Basophils/100 WBC (Bld) 0.6 % Normal 0.2-2.0 [facility] Comment on above: Performed By: #### C BC #### [facility] [address] [id number] Wanda Anamaria EO # 0.2 103/ul Normal 0.0-0.7 [facility] Comment on above: Performed By: #### C BC #### [facility] [address] [address] Wanda Anamaria Eosinophils/100 WBC (Bld) 1.7 % Normal 0.9-7.0 [facility] Comment on above: Performed By: #### C BC #### [facility] [address] [phone] Wanda Anamaria Erythrocyte distribution width (RBC) [Ratio] 14.4 % Normal 11.0-15.0 [facility] Comment on above: Performed By: #### C BC #### [facility] [address] [phone] Wanda Anamaria Hematocrit (Bld) [Volume fraction] 44.2 % Normal 42.0-54.0 [facility] Comment on above: Performed By: #### C BC #### [facility] [address] [phone] Wanda Anamaria Hemoglobin (Bld) [Mass/Vol] 13.9 g/dL Critically low 14.0-18.0 [facility] Comment on above: Performed By: #### C BC #### [facility] [address] [phone] Wanda Anamaria IG # 0.04 10e3/ul Critically high 0.00-0.03 The [facility] Comment on above: Performed By: #### C BC #### [facility] [address] [place] [address] Wanda Anamaria IG % 0.4 % Normal 0.0-0.5 [facility] Comment on above: Performed By: #### C BC #### [facility] [address] [place], [place] [address] Wandavanda Antoineen LYMPH # 2.8 103/ul Normal 1.2-3.8 [facility] Comment on above: Performed By: #### C BC #### [facility] [address] [place], [place] [address] Wandavanda Antoineen Lymphocytes/100 WBC (Bld) 28.2 % Normal 20.5-60.0 [facility] Comment on above: Performed By: #### C BC #### [facility] [address] [place] [address] Wanda Conrad MANUAL DIFF REQ NO Normal [facility] Comment on above: Performed By: #### C BC #### [facility] [address] [place] [address] Wanda Anamaria MCH (RBC) [Entitic mass] 25.9 pg Normal 25.9-34.0 [facility] Comment on above: Performed By: #### C BC #### [facility] [address] [place], [place] [id number] Wandavanda Conrad MCHC (RBC) [Mass/Vol] 31.4 g/dL Normal 29.9-35.2 [facility] Comment on above: Performed By: #### C BC #### [facility] [address] [place] [address] Wanda Anamaria MCV (RBC) [Entitic vol] 82.3 fL Normal 80.0-94.0 [facility] Comment on above: Performed By: #### C BC #### [facility] [address] [place], [place] [address] Wanda Anamaria MONO # 0.5 103/ul Normal 0.3-0.8 [facility] Comment on above: Performed By: #### C BC #### [facility] [address] [place], [place] [address] Wanda Anamaria Monocytes/100 WBC (Bld) 5.2 % Normal 1.7-12.0 [facility] Comment on above: Performed By: #### C BC #### [facility] [address] [place], [place] [address] Wandavanda Antoineen NEUT # 6.4 103/ul Normal 1.4-6.5 [facility] Comment on above: Performed By: #### C BC #### [facility] [address] [place], [place] [address] Wanda Anamaria Neutrophils/100 WBC (Bld) 63.9 % Normal 43.0-75.0 [facility] Comment on above: Performed By: #### C BC #### [facility] [address] [place], [place] [address] Wandavanda Conrad Platelet mean volume (Bld) [Entitic vol] 10.5 fL Normal 9.5-13.5 [facility] Comment on above: Performed By: #### C BC #### [facility] [address] [place], [place] [address] Wanda Anamaria PLT 281 103/ul Normal 150-450 [facility] Comment on above: Performed By: #### C BC #### [facility] [address] [place], [place] [address] Wanda Anamaria RBC 5.37 106/ul Normal 4.70-6.10 [facility] Comment on above: Performed By: #### C BC #### [facility] [address] [place], [place] [address] Wanda Anamaria WBC 10.0 103/ul Normal 4.0-11.0 [facility] Comment on above: Performed By: #### C BC #### [facility] [address] [place] [address] Wandavanda Conrad GLYCOHEMOGLOBIN A1Con 2019 Glucose [Mass/Vol] 163 mg/dL Normal [facility] Comment on above: Performed By: #### T SH, LIPID, CMP, PSAD, T4 #### [facility] [address] [place], [place] [address] Wanda Anamaria HbA1c (Bld) [Mass fraction] 7.3 % Critically high <=6.0 [facility] Comment on above: Performed By: #### T SH, LIPID, CMP, PSAD, T4 #### [facility] [address] [place], [place] [address] Wanda Anamaria LIPID PROFILEon 10-18-2019 CHOL-HDL RATIO NORM SEE BELOW Normal [facility] Comment on above: Result Comment: 3.3 - 4.4 LOW RISK 4.4 - 7.1 AVERAGE RISK 7.1 - 11.0 MODERATE RISK >11.0 HIGH RISK Performed By: #### T SH, LIPID, CMP, PSAD, T4 #### [facility] [address] [place], [place] [address] Wanda Anamaria Cholesterol [Mass/Vol] 130 mg/dL Normal <=200 [facility] Comment on above: Performed By: #### T SH, LIPID, CMP, PSAD, T4 #### [facility] [address] [place], [place] [address] Wanda Anamaria Cholesterol in HDL [Mass/Vol] 32 mg/dL Normal [facility] Comment on above: Performed By: #### T SH, LIPID, CMP, PSAD, T4 #### [facility] [address] [phone] Wanda Anamaria Cholesterol in LDL [Mass/Vol] 76.6 mg/dL Normal [facility] Comment on above: Performed By: #### T SH, LIPID, CMP, PSAD, T4 #### [facility] [address] [place], [place] [address] Wanda Anamaria Cholesterol.total/Ch olesterol in HDL [Mass ratio] 4.1 {ratio} Normal [facility] Comment on above: Performed By: #### T SH, LIPID, CMP, PSAD, T4 #### [facility] [address] [place], [place] [address] Wanda Anamaria HDL NORMAL > or = 60 mg/dl - LO W CARDIOVASCULAR RISK <40 mg/dl - HIGH CARDIOVASCULAR RISK Normal [facility] Comment on above: Performed By: #### T SH, LIPID, CMP, PSAD, T4 #### [facility] [address] [place], [place] [address] Wanda Anamaria LDL CALC NORMAL SEE BELOW Normal [facility] Comment on above: Result Comment: <100 mg/dl OPTIMAL 100 - 129 mg/dl NEAR OR ABOVE OPTIMAL 130 - 159 mg/dl BORDERLINE HIGH 160 - 189 mg/dl HIGH >190 mg/dl VERY HIGH Performed By: #### T SH, LIPID, CMP, PSAD, T4 #### [facility] [address] [place], [place] [address] Wandavanda Conrad Triglyceride [Mass/Vol] 107 mg/dL Normal <=150 [facility] Comment on above: Performed By: #### T SH, LIPID, CMP, PSAD, T4 #### [facility] [address] [place], [place] [address] Wanda Anamaria VLDL CALC 21.4 mg/dL Normal [facility] Comment on above: Performed By: #### T SH, LIPID, CMP, PSAD, T4 #### [facility] [address] [place], [place] [address] Wanda Conrad MICROALBUMIN, RAND URon 09-28 mALB <1.3 Normal <=30.0 [facility] Comment on above: Performed By: #### M ALBR #### [facility] [address] [place], [place] [address] Wanda Conrad mALBH PLEASE NOTE: NORMAL RANGE CHANGE, TESTING PERFORMED AT [facility]. Normal [facility] Comment on above: Performed By: #### M ALBR #### [facility] [address] [phone] Wanda Conrad PROF 14(COMP METB)on 020 Albumin [Mass/Vol] 3.5 g/dL Normal 3.5-5.0 [facility] Comment on above: Performed By: #### T SH, LIPID, CMP, PSAD, T4 #### [facility] [address] [place], [place] [address] Wanda Conrad Albumin/Globulin [Mass ratio] 0.8 {ratio} Normal [facility] Comment on above: Performed By: #### T SH, LIPID, CMP, PSAD, T4 #### [facility] [address] [phone] Wanda Anamaria ALP [Catalytic activity/Vol] 103 U/L Normal 38-126 [facility] Comment on above: Performed By: #### T SH, LIPID, CMP, PSAD, T4 #### [facility] [address] [place] [address] Wanda Anamaria ALT [Catalytic activity/Vol] 21 U/L Normal 21-72 [facility] Comment on above: Performed By: #### T SH, LIPID, CMP, PSAD, T4 #### [facility] [address] [place] [address] Wanda Anamaria Anion gap [Moles/Vol] 13.9 mmol/L Normal [facility] Comment on above: Performed By: #### T SH, LIPID, CMP, PSAD, T4 #### [facility] [address] [place] [address] Wanda Anamaria AST [Catalytic activity/Vol] 18 U/L Normal 17-59 [facility] Comment on above: Performed By: #### T SH, LIPID, CMP, PSAD, T4 #### [facility] [address] [place] [address] Wanda Anamaria Bilirubin [Mass/Vol] 0.5 mg/dL Normal 0.2-1.3 [facility] Comment on above: Performed By: #### T SH, LIPID, CMP, PSAD, T4 #### [facility] [address] [place] [address] Wanda Anamaria Calcium [Mass/Vol] 8.9 mg/dL Normal 8.4-10.2 The [facility] Comment on above: Performed By: #### T SH, LIPID, CMP, PSAD, T4 #### [facility] [address] [place] [address] Wanda Anamaria Chloride [Moles/Vol] 100 mmol/L Normal 98-107 [facility] Comment on above: Performed By: #### T SH, LIPID, CMP, PSAD, T4 #### [facility] [address] [place] [address] Wanda Anamaria CO2 [Moles/Vol] 28.2 mmol/L Normal 22.0-30.0 [facility] Comment on above: Performed By: #### T SH, LIPID, CMP, PSAD, T4 #### [facility] [address] [address] Wanda Anamaria Creatinine [Mass/Vol] 1.08 mg/dL Normal 0.66-1.25 [facility] Comment on above: Performed By: #### T SH, LIPID, CMP, PSAD, T4 #### [facility] [address] [place] [address] Wanda Anamaria EGFR-AF EGYPTIAN >60 Normal >=60 [facility] Comment on above: Performed By: #### T SH, LIPID, CMP, PSAD, T4 #### [facility] [address] [place] [address] Wanda Anamaria EGFR-NON AF EGYPTIAN >60 Normal >=60 [facility] Comment on above: Performed By: #### T SH, LIPID, CMP, PSAD, T4 #### [facility] [address] [place] [address] Wanda Anamaria Globulin (S) [Mass/Vol] 4.6 g/dL Normal [facility] Comment on above: Performed By: #### T SH, LIPID, CMP, PSAD, T4 #### [facility] [address] [place] [address] Wanda Anamaria Glucose [Mass/Vol] 129 mg/dL Critically high 74-106 [facility] Comment on above: Performed By: #### T SH, LIPID, CMP, PSAD, T4 #### [facility] [address] [place] [address] Wanda Anamaria Potassium [Moles/Vol] 4.1 mmol/L Normal 3.4-5.0 [facility] Comment on above: Performed By: #### T SH, LIPID, CMP, PSAD, T4 #### [facility] [address] [place] [address] Wanda Anamaria Protein [Mass/Vol] 8.1 g/dL Normal 6.1-8.2 [facility] Comment on above: Performed By: #### T SH, LIPID, CMP, PSAD, T4 #### [facility] [address] [place], [place] [address] Wanda Anamaria Sodium [Moles/Vol] 138 mmol/L Normal 137-145 [facility] Comment on above: Performed By: #### T SH, LIPID, CMP, PSAD, T4 #### [facility] [address] [place], [place] [address] Wanda Anamaria Urea nitrogen [Mass/Vol] 34.0 mg/dL Critically high 9.0-20.0 [facility] Comment on above: Performed By: #### T SH, LIPID, CMP, PSAD, T4 #### [facility] [address] [place], [place] [address] Wanda Anamaria Urea nitrogen/Creatinine [Mass ratio] 31.5 mg/mg Normal [facility] Comment on above: Performed By: #### T SH, LIPID, CMP, PSAD, T4 #### [facility] [address] [place], [place] [address] Wanda Anamaria Vital Signs Date Time Vital Sign Value Performing Clinician Facility 09-03-2024 13:48-0400 Body height 167.6 cm Merritt Thacker DO Work Phone: [facility] 09-03-2024 13:48-0400 Body mass index (BMI) [Ratio] 66.3 kg/m2 Merritt Thacker DO Work Phone: [facility] 09-03-2024 13:48-0400 Body temperature 97.5 [degF] Merritt Thacker DO Work Phone: [facility] 09-03-2024 13:48-0400 Body weight 186.34 kg Merritt Thacker DO Work Phone: [facility] 09-03-2024 13:48-0400 Diastolic blood pressure 70 mm[Hg] Merritt Thacker DO Work Phone: [facility] Comment on above: bp cuff not big enough 09-03-2024 13:48-0400 Heart rate 92 /min Merritt Thacker DO Work Phone: [facility] 09-03-2024 13:48-0400 Respiratory rate 20 /min Merritt Dents DO Work Phone: [facility] 09-03-2024 13:48-0400 SaO2% (BldA) [Mass fraction] 91 % Merritt Dents DO Work Phone: [facility] 09-03-2024 13:48-0400 Systolic blood pressure 112 mm[Hg] Merritt Dents DO Work Phone: [facility] Comment on above: bp cuff not big enough 06-05-2024 13:20-0500 Diastolic blood pressure 80 mm[Hg] Merritt Lynnehas DO Work Phone: [facility] 06-05-2024 13:20-0500 Systolic blood pressure 130 mm[Hg] Merritt Dents DO Work Phone: [facility] 06-05-2024 12:57-0500 Body height 167.6 cm Merritt Dents DO Work Phone: [facility] 06-05-2024 12:57-0500 Body mass index (BMI) [Ratio] 68.44 kg/m2 Merritt Lynnehas DO Work Phone: [facility] 06-05-2024 12:57-0500 Body temperature 97.59 [degF] Merritt Dents DO Work Phone: [facility] 06-05-2024 12:57-0500 Body weight 192.32 kg Merritt Dents DO Work Phone: [facility] 06-05-2024 12:57-0500 Heart rate 78 /min Merritt Lynnehas DO Work Phone: [facility] 06-05-2024 12:57-0500 Respiratory rate 20 /min Merritt Lynnehas DO Work Phone: [facility] 06-05-2024 12:57-0500 SaO2% (BldA) [Mass fraction] 97 % Merritt Dents DO Work Phone: [facility] 02-21-2024 15:01-0400 Body height 167.6 cm Merritt Thacker DO Work Phone: [facility] 02-21-2024 15:01-0400 Body mass index (BMI) [Ratio] 63.75 kg/m2 Merritt Dents DO Work Phone: [facility] 02-21-2024 15:01-0400 Body temperature 97.59 [degF] Merritt Dents DO Work Phone: [facility] 02-21-2024 15:01-0400 Body weight 179.17 kg Merritt Dents DO Work Phone: [facility] 02-21-2024 15:01-0400 Diastolic blood pressure 70 mm[Hg] Merritt Thacker DO Work Phone: [facility] 02-21-2024 15:01-0400 Heart rate 88 /min Merritt Dents DO Work Phone: [facility] 02-21-2024 15:01-0400 SaO2% (BldA) [Mass fraction] 95 % Merritt Dents DO Work Phone: [facility] 02-21-2024 15:01-0400 Systolic blood pressure 130 mm[Hg] Merritt Dents DO Work Phone: [facility] 01-16-2024 16:34-0400 Body height 167.6 cm Merritt Dents DO Work Phone: [facility] 01-16-2024 16:34-0400 Body mass index (BMI) [Ratio] 67.39 kg/m2 Merritt Dents DO Work Phone: [facility] 01-16-2024 16:34-0400 Body temperature 97.11 [degF] Merritt Dents DO Work Phone: [facility] 01-16-2024 16:34-0400 Body weight 189.38 kg Merritt Dents DO Work Phone: [facility] 01-16-2024 16:34-0400 Diastolic blood pressure 80 mm[Hg] Merritt Dents DO Work Phone: [facility] 01-16-2024 16:34-0400 Heart rate 71 /min Merritt Lynnehas DO Work Phone: [facility] 01-16-2024 16:34-0400 SaO2% (BldA) [Mass fraction] 98 % Merritt Dents DO Work Phone: [facility] 01-16-2024 16:34-0400 Systolic blood pressure 110 mm[Hg] Merritt Dents DO Work Phone: [facility] 01-02-2024 14:38-0400 Body height 167.6 cm Merritt Dents DO Work Phone: [facility] 01-02-2024 14:38-0400 Body temperature 98.49 [degF] Merritt Dents DO Work Phone: [facility] 01-02-2024 14:38-0400 Diastolic blood pressure 74 mm[Hg] Merritt Dents DO Work Phone: [facility] 01-02-2024 14:38-0400 Heart rate 75 /min Merritt Dents DO Work Phone: [facility] 01-02-2024 14:38-0400 Respiratory rate 20 /min Merritt Dents DO Work Phone: [facility] 01-02-2024 14:38-0400 SaO2% (BldA) [Mass fraction] 94 % Merritt Dents DO Work Phone: [facility] 01-02-2024 14:38-0400 Systolic blood pressure 118 mm[Hg] Merritt Lynnehas DO Work Phone: [facility] 09-07-2023 13:51-0400 Diastolic blood pressure 84 mm[Hg] [facility]acker [email or web address] 09-07-2023 13:51-0400 Systolic blood pressure 128 mm[Hg] Merritt Dents DO [email or web address] 09-07-2023 13:09-0400 Body height 167.6 cm [facility]ents [facility] 09-07-2023 13:09-0400 Body mass index (BMI) [Ratio] 68.86 kg/m2 Merritt Dents DO [facility] 09-07-2023 13:09-0400 Body temperature 97.2 [degF] Merritt Dents DO [facility] 09-07-2023 13:09-0400 Body weight 193.5 kg Merritt Dents DO [facility] 09-07-2023 13:09-0400 Heart rate 88 /min Merritt eDnts DO [facility] 09-07-2023 13:09-0400 Respiratory rate 20 /min Merritt Thacker DO [email or web address] 09-07-2023 13:09-0400 SaO2% (BldA) [Mass fraction] 98 % Merritt Thacker DO [facility] En[facility]ters Encounter Date Encounter Type Care Provider Facility Start: 02-15-2025 End: 02-15-2025 Telephone encounter Noemi Caraballo C[facility] Comment on above: Colon Cancer Screeni ng Start: 01-21-2025 End: 01-21-2025 ambulatory CHRIS GARCIA [facility] Start: 12-03-2024 End: 12-03-2024 Refill Merritt Thacker DO [facility] Comment on above: Type 2 diabetes moses itus without complication, without long- term current use of insulin ([facility] Non-seasonal allergic rhinitis, unspecified trigger Start: 09-03-2024 End: 09-03-2024 [facility] Start: 09-03-2024 End: 09-03-2024 Office outpatient visit 25 minutes Merritt Eng Chilo DO Work Phone: [facility] Comment on above: Type 2 diabetes moses itus without complication, without long- term current use of insulin ([facility]) (Primary Dx); Special screening for malignant neoplasm of colon; Chronic combined systolic and diastolic CHF (congestive heart failure) ([facility]); Non-seasonal allergic rhinitis, unspecified trigger; Primary osteoarthritis of right shoulder Start: 09-03-2024 End: 09-03-2024 [facility] Start: 08-25-2024 End: 08-26-2024 Refill Merritt Eng Chilo BEST Work Phone: [facility] Comment on above: Type 2 diabetes moses itus without complication, without long- term current use of insulin ([facility]) Start: 06-07-2024 End: 06-07-2024 Telephone encounter Merritt Eng Chilo BEST Work Phone: [facility] Start: 06-05-2024 End: 06-05-2024 [facility] Start: 06-05-2024 End: 06-05-2024 Office outpatient visit 25 minutes Merritt Albertina Thacker DO Work Phone: [facility] Comment on above: Type 2 diabetes moses itus without complication, without long- term current use of insulin ([facility]) (Primary Dx); Chronic combined systolic and diastolic CHF (congestive heart failure) ([facility]); Obesity, morbid ([facility]); Stage 3b chronic kidney disease ([facility]); Encounter for screening for malignant neoplasm of prostate; Encounter for immunization; Primary osteoarthritis of right shoulder; Non-seasonal allergic rhinitis, unspecified trigger Start: 06-05-2024 End: 06-05-2024 ambulatory Day [facility] Start: 03-01-2024 End: 03-02-2024 Telephone encounter Inna Jefferson [employer] BLOCK[employer] Work Phone: [facility] Comment on above: Referral Start: 02-29-2024 End: 02-29-2024 Bamboo flowsheet Inna hCarity Jefferson CAR BLOCKER Work Phone: [facility] Start: 02-29-2024 End: 02-29-2024 Bamboo flowsheet Inna Charity Jefferson [employer] BLOCKER Work Phone: [facility] Start: 02-29-2024 End: 02-29-2024 Office outpatient visit 25 minutes Inna Jefferson [employer] BLOCK[employer] Work Phone: [facility] Comment on above: Right shoulder pain, unspecified chronicity (Primary Dx); Chronic pain of both knees; Chronic pain of both ankles; Impingement of right shoulder Start: 02-29-2024 End: 02-29-2024 ambulatory INNA Charity JEFFERSON Not Available Start: 02-21-2024 End: 02-21-2024 ambulatory [facility] Start: 02-21-2024 End: 02-21-2024 Office outpatient visit 25 minutes Merritt Thacker DO Work Phone: [facility] Comment on above: Type 2 diabetes moses itus without complication, without long- term current use of insulin ([facility]) (Primary Dx); Chronic combined systolic and diastolic CHF (congestive heart failure) ([facility]); Primary osteoarthritis of right shoulder; Chronic right shoulder pain; Primary osteoarthritis of both ankles Start: 01-17-2024 End: 01-17-2024 [facility] Start: 01-16-2024 End: 01-16-2024 [facility] Start: 01-16-2024 End: 01-16-2024 [facility] Start: 01-16-2024 End: 01-16-2024 Transitional care manage srvc 14 day discharge [facility] DO Work Phone: [facility] Comment on above: Chronic combined sys tolic and diastolic CHF (congestive heart failure) ([facility]) (Primary Dx); Type 2 diabetes mellitus without complication, without long-term current use of insulin ([facility]); Primary osteoarthritis of right shoulder; Stage 3b chronic kidney disease ([facility]); Hyperlipidemia, unspecified hyperlipidemia type Start: 01-09-2024 End: 01-10-[address] [facility] Start: 01-02-2024 End: 01-02-2024 ambulatory [facility] Start: 01-02-2024 End: 01-02-2024 Transitional care manage srvc 14 day discharge Merritt Thacker DO Work Phone: [facility] Comment on above: Acute on chronic sys tolic congestive heart failure ([facility]) (Primary Dx); Essential hypertension; Stage 3b chronic kidney disease ([facility]); Type 2 diabetes mellitus without complication, without long-term current use of insulin ([facility]); Obesity, morbid ([facility]) Start: 12-26-2023 End: 01-02-2024 Telephone encounter Merritt Thacker DO Work Phone: [facility] Start: 12-14-2023 End: 12-15-2023 Telephone encounter Selma Quijano [facility] Start: 11-18-2023 End: 11-18-[address] [facility] Comment on above: Type 2 diabetes moses itus without complication, without long- term current use of insulin ([facility]) Start: 09-15-2023 End: 09-15-2023 Telephone encounter Nitza Oneal [facility] Start: 09-07-2023 End: 09-07-2023 ambulatory [facility] Start: 09-07-2023 End: 09-07-2023 Office outpatient visit 25 minutes Merritt Thacker DO Work Phone: [facility] Comment on above: Type 2 diabetes moses itus without complication, without long- term current use of insulin ([facility]) (Primary Dx); Stage 3b chronic kidney disease ([facility]); Essential hypertension; Class 3 severe obesity due to excess calories with serious comorbidity and body mass index (BMI) of 60.0 to 69.9 in adult ([facility]); Immunization due Start: 09-07-2023 End: 09-07-2023 [facility] Start: 06-17-2023 Telephone encounter Kaveh Cuca Juan Jose rivera DO Work Phone: [facility] Comment on above: Refund Checks Start: 04-11-2023 End: 04-11-2023 ambulatory INNA JEFFERSON Not Available Start: 07-13-2021 End: 07-29-2021 ambulatory Devang Birch Facility:[facility] Start: 10-09-2020 Encounter for genera l adult medical examination without abnormal findings DR DEVANG BIRCH [facility] Start: 10-01-2020 End: 10-02-[address] DEVANG BIRCH Facility:[facility] Start: 10-01-2020 End: 10-02-2020 Encounter for general adult medical examination without abnormal findings DR DEVANG BIRCH Facility:[facility] Start: 04-04-2020 End: 04-05-[address] DEVANG BIRCH Facility:[facility] Start: 11-25-2019 End: 11-25-[address] DEVANG BIRCH Facility:[facility] Start: 10-18-2019 End: 10-19-[address] DEVANG BIRCH Facility:[facility] Procedures Date Procedure Procedure Detail Performing Clinician Start: 06-05-2024 Adult depression scr eening assessment Merritt Thacker DO Work Phone: Start: 02-29-2024 Arthrocentesis aspir &/inj major jt/bursa w/o us Inna Jefferson [employer] BLOCKER Work Phone: Start: 02-21-2024 Adult depression scr eening assessment Merritt Lynnefrancesca DO Work Phone: Start: 01-17-2024 Microalbumin [Mass/v olume] in Urine by Test strip Merritt Thacker DO Work Phone: Start: 01-16-2024 Follow-up visit Follow-up MERRITT THACKER Start: 01-16-2024 Adult depression scr eening assessment Merritt Thacker DO Work Phone: Start: 01-02-2024 Adult depression scr eening assessment Merritt Thacker DO Work Phone: Start: 09-07-2023 Adult depression scr eening assessment Merritt Thacker DO Work Phone: Start: 01-10-2023 Microalbumin [Mass/v olume] in Urine by Test strip Merritt Thacker DO Work Phone: Start: 10-01-[address] PATTI BIRCH Comment on above: Performed By: #### T SH, LIPID, CMP, PSAD, T4 #### [facility] [address] [place] [address] Wanda Conrad Plan of Treatment Date Care Activity Detail Author Start: 03-10-2033 DTaP,Tdap and Td Vaccines (2 - Td or Tdap) DTaP,Tdap and Td Vaccines (2 - Td or Tdap) [facility] Start: 09-03-2025 Adult BMI Screening Adult BMI Screen ing [facility] Start: 09-03-2025 Tobacco Screening Tobacco Screening [facility] Start: 06-05-2025 Adult BMI Screening Adult BMI Screen ing [facility] Start: 06-05-2025 Depression Screening Depression Scre [facility] Start: 06-05-2025 Statin Use: Diabetic Statin Use: Rukhsana betic [facility] Start: 06-05-2025 Tobacco Screening Tobacco Screening [facility] Start: 02-20-2025 Adult BMI Screening Adult BMI Screen ing [facility] Start: 02-20-2025 Depression Screening Depression Scre ening [facility] Start: 02-20-2025 Tobacco Screening Tobacco Screening [facility] Start: 01-28-2025 Influenza vaccination Influenza Vacc ine [facility] Start: 01-16-2025 Urine screening for protein Urine Microalbumin [facility] Start: 01-15-2025 Adult BMI Screening Adult BMI Screen ing [facility] Start: 01-15-2025 Depression Screening Depression Scre ening [facility] Start: 01-15-2025 Tobacco Screening Tobacco Screening [facility] Start: 01-03-2025 End: 01-03-2025 Patient encounter procedure 01/03/2025 1:00 PM EDT [facility] [address] [place] [address] Merritt Thacker, DO [address] [place] [address] [facility] Start: 01-01-2025 Depression Screening Depression Scre ening [facility] Start: 01-01-2025 Tobacco Screening Tobacco Screening [facility] Start: 09-06-2024 Adult BMI Screening Adult BMI Screen ing [facility] Start: 09-06-2024 Depression Screening Depression Scre ening [facility] Start: 09-06-2024 Tobacco Screening Tobacco Screening [facility] Start: 09-03-2024 End: 09-03-2024 Patient encounter procedure 09/03/2024 1:30 PM EDT Office Visit [facility] [address] [place] [address] Merritt Thacker, DO [address] [place] [address] [facility] Start: 06-21-2024 Statin Use: Diabetic Statin Use: Rukhsana betic [facility] Start: 06-05-2024 End: 06-05-2024 Patient encounter procedure 06/05/2024 1:00 PM EST [facility] [address] [place] [address] Merritt Thacker, DO [address] [place] [address] [facility] Start: 02-29-2024 End: 02-29-2024 Patient encounter procedure 02/29/2024 12:45 PM EDT Office Visit [facility] [address] [place] [address] Inna Jefferson, CAR BLOCKER [address] [place] [address] Right shoulder pain, unspecified chronicity (Primary Dx) [facility] Comment on above: Right shoulder pain, unspecified chronicity (Primary Dx) Start: 02-21-2024 End: 02-21-2024 Patient encounter procedure 02/21/2024 3:00 PM EDT Office Visit [facility] [address] [place] [address] Merritt Thacker, DO [address] [place] [address] [facility] Start: 01-29-2024 Influenza vaccination Influenza Vacc ine [facility] Start: 01-16-2024 End: 01-16-2024 Patient encounter procedure 01/16/2024 4:15 PM EDT Office Visit [facility] - Family Medicine [address] [place] [address] Merritt Thacker, DO [address] [place] [address] [facility] Start: 01-11-2024 Diabetic foot examination Diabetic Foot Exam [facility] Start: 01-11-2024 Urine screening for protein Urine Microalbumin [facility] Start: 2014 Administration of varicella zoster vaccine Zoster (Shingles) Vaccine (1 of 2) [facility] Start: 1982 Adult BMI Follow Up Plan Adult BMI Follow Up Plan [facility] Rehabilitation Start: 1965 Glaucoma screening Diabetic Op hthalmology Exam [facility] End: 01-15-2025 CBC W Auto Differential panel - Blood CBC auto differential Lab Routine Stage 3b chronic kidney disease ([facility] 1 Occurrences starting 01/16/2024 until 01/15/[facility]25 [facility]: 1 Occurrences starti ng 01/16/2024 until 01/15/2025 Cologuard Non-[facility] Cologuar d Non-[facility] Lab Routine Special screening for malignant neoplasm of colon Ordered: 09/03/2024 [employer] Work Phone: Comment on above: Ordered: 09/03/2024 End: 01-15-2025 Comprehensive metabolic 2000 panel - Serum or Plasma Comprehensive metabolic panel Lab Routine Hyperlipidemia, unspecified hyperlipidemia type 1 Occurrences starting 01/16/2024 until 01/15/2025 [employer] Work Phone: Comment on above: 1 Occurrences starti ng 01/16/2024 until 01/15/2025 End: 06-05-2025 Hemoglobin A1c/Hemoglobin.total in Blood Hemoglobin A1c Lab Routine Type 2 diabetes mellitus without complication, without long-term current use of insulin ([facility] 1 Occurrences starting 06/05/2024 until 06/05/2025 [employer] Work Phone: Comment on above: 1 Occurrences starti ng 06/05/2024 until 06/05/2025 Hemoglobin A1c/Hemoglobin.total in Blood Hemoglobin A1c Lab Routine Type 2 diabetes mellitus without complication, without long-term current use of insulin ([facility]) 06/05/2024 5:50 PM EST [facility] End: 09-06-2024 Hemoglobin A1c/Hemoglobin.total in Blood Hemoglobin A1c Lab Routine Type 2 diabetes mellitus without complication, without long-term current use of insulin ([facility]) 1 Occurrences starting 09/07/2023 until 09/06/2024 [employer] Work Phone: Comment on above: 1 Occurrences starti ng 09/07/2023 until 09/06/2024 Hemoglobin A1c/Hemoglobin.total in Blood Hemoglobin A1c Lab Routine Type 2 diabetes mellitus without complication, without long-term current use of insulin ([facility]) 09/07/2023 11:28 PM [facility] End: 01-15-2025 Hemoglobin A1c/Hemoglobin.total in Blood Hemoglobin A1c Lab Routine Type 2 diabetes mellitus without complication, without long-term current use of insulin ([facility]) 1 Occurrences starting 01/16/2024 until 01/15/2025 [facility]: 1 Occurrences starti ng 01/16/2024 until 01/15/2025 End: 01-15-2025 Lipid 1996 panel - Serum or Plasma Lipid profile Lab Routine Hyperlipidemia, unspecified hyperlipidemia type 1 Occurrences starting 01/16/2024 until 01/15/2025 [facility] Comment on above: 1 Occurrences starti ng 01/16/2024 until 01/15/2025 End: 01-15-2025 Magnesium [Mass/volume] in Serum or Plasma Magnesium Lab Routine Chronic combined systolic and diastolic CHF (congestive heart failure) ([facility]) 1 Occurrences starting 01/16/2024 until 01/15/2025 [facility]: 1 Occurrences starti ng 01/16/2024 until 01/15/2025 End: 01-15-2025 Microalbumin - Albumin: Creatinine Urine Ratio Microalbumin - Albumin: Creatinine Urine Ratio Lab Routine Type 2 diabetes mellitus without complication, without long-term current use of insulin ([facility]) 1 Occurrences starting 01/16/2024 until 01/15/2025 [facility] above: 1 Occurrences starti ng 01/16/2024 until 01/15/2025 Immunizations Immunization Date Immunization Notes Care Provider Sanchez henley 06-05-2024 Seasonal trivalent influenza vaccine, adjuvanted, preservative free Merritt Thacker DO [facility] 06-05-[facility]24 Immunization, In Clinic,; 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: [Drug or medicament (substance)] Merritt Thacker DO Work Phone: [facility] 06-05-2024 influenza virus vaccine, unspecified formulation [facility] Thacker DO [facility] 03-10-2023 influenza, injectabl e, quadrivalent, preservative free Merritt Thacker DO [facility] 03-10-2023 tetanus toxoid, redu marleni diphtheria toxoid, and acellular pertussis vaccine, adsorbed Merritt Thacker DO [facility] 03-10-2023 influenza virus vaccine, unspecified formulation Merritt Thacker DO Work Phone: [facility] Payers Date Payer Category Payer Medicare HMO [id number] 2024 Medicare [id number] 2024 Medicare [id number] 2021 Medicare [id number] 2021 Self-pay 1965 Unknown [id number] 2.16.84 [id number] 1965 Unknown [id number] 2.16.84 [id number] 1964 Unknown [id number] 2.16.84 [id number] 1964 Unknown [id number] 2.16.84 0.1.527563.3.579.2.593 1964 Unknown [id number] 2.16.84 0.1.788296.3.579.2.1259 1964 Unknown [id number] 2.16.840. 1.254581.3.579.2.1259 1964 Unknown [id number] 2.16. [id number] 1964 Unknown [id number] 2.16. 840.1.097312.3.579.2.1286 1964 Unknown [id number] 2.16.8 40.1.286314.3.579.2.1286 1964 Unknown [id number] 2.16.8 40.1.614147.3.579.2.128 1964 Unknown [id number] 2.16.8 40.1.095599.3.579.2.1286 1964 Unknown [id number] 2.16.8 40.1.800315.3.579.2.1286 1964 Unknown [id number] 2.16. 840.1.560444.3.579.2.1286 1964 Unknown [id number] 2.16. 840.1.440965.3.579.2.128 1964 Unknown [id number] 2.16.8 40.1.087941.3.579.2.1286 1964 Unknown [id number] 2.16.8 40.1.906218.3.579.2.1285 1964 Unknown [id number] 2.16.8 40.1.797740.3.579.2.1286 1959 Unknown [id number] Unknown Unknown [id number] 2.16.8 [id number] Social History Date Type Detail Facility Start: 01-10-2023 End: 03-28-2023 Tobacco smoking status AZIS Never smoked tobacco [facility] Start: 01-10-2023 End: 03-28-2023 Tobacco use and exposure Smokeless tobacco non-user [facility] Start: 06-09-2023 End: 09-03-2024 Alcohol intake Current drinker of alcohol (finding) [facility] Start: 07-10-2020 End: 04-11-2023 History of Social function [facility] Start: 07-10-2020 End: 04-11-2023 Tobacco use panel [facility] Start: 1965 Sex Assigned At Not on file [facility] Adolescent depressio n screening assessment [facility] Start: 06-05-2024 Alcohol Comment rare [facility] Start: 01-02-2015 Sex Male (finding) [facility] Clinical Notes 06-17-2023 to 02-15-2025 Telephone Encounter - Noemi Caraballo CMA - 02/15/2025 9:26 AM EDTTelephone Encounter - Noemi Caraballo CMA - 02/15/2025 9:26 AM EDTMerritt Thacker DO - 09/03/2024 1:30 PM EDT Note Date & Type Note Facility 02-15-2025 Miscellaneous Notes Care Coordination Outreach performed to coordinate overdue appointments, testing, and/or follow-up care: Yes Audit/Outreach Date: February 15, 2025 Reason: Colorectal Cancer Screening Method: Telephone and Letter Outreach Attempt: First Outcome: Left Message and Letter Sent Next PCP Appointment: N/A Tests/Referrals Pended: N/A Resources/Education Provided: Additional Comments: Left message for patient to contact child care centre director. Patient is overdue with cologuard order. Will send letter to patient. documented in this encounter [facility] 02-15-2025 Telephone encounter Note Care Coordination Outreach performed to coordinate overdue appointments, testing, and/or follow-up care: Yes Audit/Outreach Date: February 15, 2025 Reason: Colorectal Cancer Screening Method: Telephone and Letter Outreach Attempt: First Outcome: Left Message and Letter Sent Next PCP Appointment: N/A Tests/Referrals Pended: N/A Resources/Education Provided: Additional Comments: Left message for patient to contact child care centre director. Patient is overdue with cologuard order. Will send letter to patient. [facility] 01-21-2025 Note SUBJECTIVE Reason for Visit: Cristobal Garcia is a 59 y.o. year old male patient being seen for heart failure hospital follow-up. HPI: Cristobal Garcia is a 59 y.o. year old male with significant medical history of heart failure with preserved ejection fraction, hypertension, diabetes type 2, hyperlipidemia, and JACQUE. Recently admitted at [facility] 12/31/2024 for SOB, acute on chronic diastolic heart failure. 01/21/2025 office visit: Patient was seen evaluated in the office today. He reports his lower extremity swelling and shortness of breath is much improved from his recent hospitalization. He denies chest pain, palpitations, lightheadedness or dizziness. He states he had a cardiac catheterization in his remote history greater than 10 years ago and does not remember the location. Medical History[1] Surgical History[2] Problem List[3] family history is not on file. Social History[4] OBJECTIVE There were no vitals taken for this visit. Physical Exam Constitutional: General Appearance: well-developed, appears stated age. Level of Distress: no acute distress. Neck: Jugular Veins: normal jugular venous pressure. Lungs: Auscultation: no rales or rhonchi and normal breath sounds. Cardiovascular: Rate And Rhythm: regular Heart Sounds: normal S1 and s2; Systolic Murmur: not heard. Diastolic Murmur: not heard. Extremities: +2 LE edema. Peripheral Pulses: Pulses: full and equal in all extremities except if noted. Abdomen: Inspection and Palpation: non distended or tender and soft. Musculoskeletal: Inspection: no joint tenderness or swelling. Neurologic: Gait: normal gait. Psychiatric: Mental Status: alert and normal affect. Skin: Inspection and Palpation: warm and dry. Allergies: Allergies[5] Outpatient Medications: No current outpatient medications Recent Labs: No visits with results within 6 Month(s) from this visit. Latest known visit with results is: No results found for any previous visit. I have personally reviewed and anaylzed the following laboratory results above. These findings have been analyzed in the context of the patient's clinical presentation. Cardiovascular Diagnostic Studies: CXR 12/31/2024: TBH 2 Patient name: CRISTOBAL GARCIA There is cardiomegaly. There is perihilar vascular prominence with hazy airspace opacities suggest congestive heart failure. Impression dictated by: Darius Cha M.D. 12/31/2024 2:01 PM TTE 01/03/2025: CONCLUSION: 1. Technically difficult study due to poor sound transmission which reduces the accuracy of the interpretation. 2. Mild concentric left ventricular hypertrophy. Left ventricular systolic function appears normal. Estimated LVEF is 55%. 3. The right ventricle appears mildly dilated with normal systolic function. 4. Mild biatrial dilatation. 5. No evidence of significant valvular dysfunction seen. TTE 12/16/2023 CONCLUSION: 1. Global left ventricular systolic function is difficult to assess but appears reduce; visually estimated ejection fraction is 35-40% 2. Severe left ventricular dilatation 3. The right ventricle is moderately dilated with reduced systolic function 4. Biatrial dilation 5. Grade II diastolic dysfunction 6. Doppler studies reveal moderately (45-60) elevated right sided pressures. RVSP 57 mmHg 7. Valves are poorly seen; no obvious valvular abnormalities CTA chest 12/11/2024: CT/CT angio chest IMPRESSION: Negative for aortic dissection or aortic aneurysm. Cardiac megaly with LAD coronary artery disease. Hypoventilatory changes without acute airspace disease. Impression dictated by: Keanu Morris M.D. 12/11/2024 3:39 PM 12 Lead ECG: No results found for this or any previous visit (from the past 4464 hours). I have personally reviewed and analyzed all available cardiac diagnostic tests and imaging reports. Findings have been analyzed in the context of the patient's clinical status. Assessment and Plan #HFpEF #HFimpEF Recent hospitalization early December of this year (2024) for acute on chronic diastolic heart failure was subsequently diuresed with IV diuretics > 16 L net negative balance at discharge NYHA III Appears near euvolemic Compensated Weight today is 420 pounds +2 lower extremity edema; likely multifactoral differentials including lymphedema, CVI, heart failure Most recent TTE, 01/03/2025: LVEF is 55%. TTE 12/16/2023: EF 35-40% Most recent labs 01/07/2025: Creatinine 1.50, BUN 47, eGFR 58, glucose 95, calcium 9.1, magnesium 2.3, proBNP 6561, albumin 2.8, potassium 3.2, sodium 130 GDMT: - Continue Farxiga 10 mg daily (new med during recent admission) - Continue furosemide 40 mg daily - Continue Spironolactone 25 mg (new med during recent admission) #CAD Denies chest pain CTA chest 12/11/2024:LAD coronary artery disease. Patient reports remote history of cardiac catheterization greater than 10 years ago, he is unsur (more content not included)... [facility] 09-03-2024 History of Present illness Narrative IM PROGRESS NOTE Patient - Cristobal Garcia Age - 58 y.o. - 1965 ASSESSMENT & PLAN 1. Type 2 diabetes mellitus without complication, without long-term current use of insulin ([facility] (Primary) - goals of treatment reviewed with the patient. - no home logs were available for review today - repeat A1c to assess efficacy of current treatment and adjust as needed -currently taking metformin - Comprehensive metabolic panel; Future - Hemoglobin A1c; Future 2. Special screening for malignant neoplasm of colon -has been 3+ years since last colon cancer screening. -we discussed options of colonoscopy, barium enema or Cologuard - he does not want to do any of them, but does agree to try Cologuard. - Cologuard [facility] 3. Chronic combined systolic and diastolic CHF (congestive heart failure) ([facility]) - symptoms are stable -GDMT: Spironolactone, losartan, furosemide, carvedilol and dapagliflozin -no changes to current regimen 4. Non-seasonal allergic rhinitis, unspecified trigger -I believe this is the main trigger of his cough -not getting relief with Nereyda. Will switch to Zyrtec. May need addition of decongestant - cetirizine (ZyrTEC) 10 mg tablet; Take 1 tablet (10 mg total) by mouth in the morning. Dispense: 30 tablet; Refill: 2 -if symptoms would persist, will need evaluation for potentially underlying COPD -in the meantime, may use Ventolin HFA inhaler as needed Subjective DIABETIC VISIT This is a follow up of a pre-existing problem. Patient self monitoring includes finger stick BG checkin time/day. Patient experiences hypoglycemia Rarely. Patient symptoms of hyperglycemia include: none. Current prescribed diet is consistent carbohydrate. Patient is not following the prescribed diet plan. Home activity includes: The patient does not participate in regular exercise at present.. Patient does not experience numbness or burning in their hands or feet. Patient does have vision changes. Last eye exam was: 2024. Recently referred Ophthalmology in [place], and may need surgery done at [facility] Patient BP monitoring is done sporadically, and can't recall values. Patient reports: taking medications as instructed, no medication side effects noted, patient does not perform home BP monitoring, no chest pain on exertion, no dyspnea on exertion, no swelling of ankles, no orthostatic dizziness or lightheadedness, no palpitations, and no intermittent claudication symptoms Issues affecting compliance with diabetic self management include: none A review of systems was negative except for the following: General: fatigue and weight loss Ophthalmic: blurry vision and referred to Ophthalmology ENT: nasal congestion and postnasal drainage, especially nocturnally Respiratory: cough and is nonproductive. Will occur in jags of 20-30 minutes, then resolve. Generally occurs 2-3 times a day, especially at nighttime. Musculoskeletal: joint pain, joint stiffness, and pain in back - bilateral, lower. Does not feel that the Baclofen 5 mg twice daily is helping. Exam BP 112/70 (BP Site: Left Arm, BP Postition: Sitting) Comment: bp cuff not big enough Pulse 92 Temp 36.4 C (97.5 F) (Oral) Resp 20 Ht 167.6 cm (5' 6 ) Wt (!) 186.3 kg (410 lb 12.8 oz) SpO2 91% BMI 66.30 kg/m Physical Exam Vitals reviewed. Constitutional: General: He is not in acute distress. Appearance: He is well-developed. He is obese. He is not toxic-appearing. HENT: Head: Normocephalic. Right Ear: Tympanic membrane, ear canal and external ear normal. Left Ear: Tympanic membrane, ear canal and external ear normal. Nose: Congestion and rhinorrhea present. Mouth/Throat: Mouth: Mucous membranes are moist. Comments: Dentition poor. Postnasal drainage noted Eyes: General: No scleral icterus. Neck: Vascular: No carotid bruit. Cardiovascular: Rate and Rhythm: Normal rate and regular rhythm. Heart sounds: No murmur heard. No gallop. Comments: Tones distant Pulmonary: Effort: Pulmonary effort is normal. Breath sounds: No wheezing or rales. Abdominal: Palpations: Abdomen is soft. Comments: Large, protuberant pannus with skin thickening but no discoloration or erythema Musculoskeletal: General: Tenderness (Bilateral ankles both medial and lateral malleolus, and anterior talar bones) present. Right lower leg: Edema (1+) present. Left lower leg: Edema (1+) present. Comments: Right shoulder tender to touch. Limited abduction, and internal and external rotation Lymphadenopathy: Cervical: No cervical adenopathy. Skin: General: Skin is warm and dry. Coloration: Skin is not jaundiced. Findings: No bruising. Comments: Chronic discoloration and thickened skin bilateral legs and feet. Both feet with multiple, thick calluses. Neurological: Mental Status: He is alert and oriented to person, place, and time. Sensory: Sensory deficit (Absent monofilament finding bilateral feet and ankles. Vibratory sensation diminished bilateral feet, toes and ankles.) present. Motor: Weakness (Bilateral legs) present. Coordination: Coordination normal. Gait: Gait abnormal (In a wheelchair). Deep Tendon Reflexes: Reflexes are normal and symmetric. Psychiatric: Mood and Affect: Mood normal. Behavior: Behavior normal. Meds Current Outpatient Medications: albuterol (PROVENTIL HFA;VENTOLIN HFA) 90 mcg/actuation inhaler, INHALE 2 PUFFS BY MOUTH EVERY 4 HOURS NEEDED for SHORTNESS OF BREATH or FOR WHEEZING, Disp: , Rfl: aspirin 81 mg chewable tablet, Chew 1 tablet (81 mg total) and swallow in the morning., Disp: 90 tablet, Rfl: 1 atorvastatin (LIPITOR) 40 mg tablet, Take 1 tablet (40 mg total) by mouth nightly., Disp: 90 tablet, Rfl: 1 baclofen 5 mg tablet, Take 1 tablet by mouth 2 (two) times a day as needed (back spasm)., Disp: 60 tablet, Rfl: 2 carvediloL (COREG) 12.5 mg tablet, Take 1 tablet (12.5 mg total) by mouth in the morning and 1 tablet (12.5 mg total) in the evening. Take with meals., Disp: 180 tablet, Rfl: 1 furosemide (LASIX) 40 mg tablet, Take 1 tablet (40 mg total) by mouth daily., Disp: 30 tablet, Rfl: 11 losartan (COZAAR) 50 mg tablet, Take 1 tablet (50 mg total) by mouth in the morning., Disp: 90 tablet, Rfl: 1 magnesium oxide 250 mg tablet, Take 1 tablet (250 mg total) by mouth in the morning., Disp: 90 tablet, Rfl: 1 metFORMIN (GLUCOPHAGE) 1000 mg tablet, TAKE 1 TABLET BY MOUTH IN THE MORNING then TAKE 1 TABLET BY MOUTH BEFORE bedtime, Disp: 180 tablet, Rfl: 0 spironolactone (ALDACTONE) 25 mg tablet, Take 1 tablet (25 mg total) by mouth in the morning., Disp: 90 tablet, Rfl: 0 cetirizine (ZyrTEC) 10 mg tablet, Take 1 tablet (10 mg total) by mouth in the morning., Disp: 30 tablet, Rfl: 2 dapagliflozin propanediol (FARXIGA) 10 mg tablet, Take 1 tablet (10 mg total) by mouth in the morning., Disp: 120 tablet, Rfl: 2 Lab Results No visits with results within 1 Month(s) from this visit. Latest known visit with results is: Hospital Outpatient Visit on 06/05/2024 Component Date Value Ref Range Status Prostatic specific antigen, screen 06/05/2024 0.27 0.00 - 4.00 ng/mL Final Hemoglobin A1C 06/05/2024 6.6 (H) 4.4 - 5.6 % Final Average glucose 06/05/2024 143 mg/dL Final Sodium 06/05/2024 142 134 - 146 mmol/L Final Potassium, Bld 06/05/2024 4.7 3.5 - 5.0 mmol/L Final Chloride 06/05/2024 107 98 - 109 mmol/L Final CO2 06/05/2024 28 22 - 32 mmol/L Final Anion gap 06/05/2024 7 5 - 15 mmol/L Final BUN 06/05/2024 24 (H) 5 - 23 mg/dL Final Creatinine 06/05/2024 1.11 0.60 - 1.30 mg/dL Final Glucose 06/05/2024 156 (H) 65 - 99 mg/dL Final Calcium 06/05/2024 8.8 8.5 - 10.5 mg/dL Final Total Protein 06/05/2024 6.8 6.0 - 8.0 g/dL Final Albumin 06/05/2024 3.6 3.2 - 5.3 g/dL Final Alkaline Phosphatase 06/05/2024 117 39 - 130 U/L Final AST 06/05/2024 14 0 - 41 U/L Final ALT 06/05/2024 16 0 - 40 U/L Final Total bilirubin 06/05/2024 0.6 0.3 - 1.2 mg/dL Final eGFR (CKD-EPI)non-race dependent 06/05/2024 76 >59 ml/min/1.73sq.m Final Other Testing No results found. Merritt Thacker DO., [facility]: [phone] documented in this encounter [facility] 06-07-2024 Miscellaneous Notes Called for pat assist, need proof of income, insurance card and signature documented in this encounter [facility] 06-07-2024 Telephone encounter Note Called for pat assist, need proof of income, insurance card and signature [facility] 06-05-2024 History of Present illness Narrative IM PROGRESS NOTE Patient - Cristobal Garcia Age - 58 y.o. - 1965 ASSESSMENT & PLAN 1. Type 2 diabetes mellitus without complication, without long-term current use of insulin ([facility]) (Primary) -goals of treatment reviewed with the patient -has not been on his medications for the past month -theoretically taking Farxiga 10 mg daily plus metformin 1000 mg b.i.d. -repeat A1c to assess efficacy of current treatment and adjust as needed - Comprehensive metabolic panel; Future - Hemoglobin A1c; Future - atorvastatin (LIPITOR) 40 mg tablet; Take 1 tablet (40 mg total) by mouth nightly. Dispense: 90 tablet; Refill: 1 - metFORMIN (GLUCOPHAGE) 1000 mg tablet; Take 1 tablet (1,000 mg total) by mouth in the morning and 1 tablet (1,000 mg total) before bedtime. Dispense: 180 tablet; Refill: 0 2. Chronic combined systolic and diastolic CHF (congestive heart failure) ([facility]) -has gained weight -needs to restart his medications -GDMT includes carvedilol, Farxiga, furosemide, losartan and spironolactone -medications refilled today - carvediloL (COREG) 12.5 mg tablet; Take 1 tablet (12.5 mg total) by mouth in the morning and 1 tablet (12.5 mg total) in the evening. Take with meals. Dispense: 180 tablet; Refill: 1 - dapagliflozin propanediol (FARXIGA) 10 mg tablet; Take 1 tablet (10 mg total) by mouth in the morning. Dispense: 90 tablet; Refill: 1 - furosemide (LASIX) 40 mg tablet; Take 1 tablet (40 mg total) by mouth daily. Dispense: 30 tablet; Refill: 11 - losartan (COZAAR) 50 mg tablet; Take 1 tablet (50 mg total) by mouth in the morning. Dispense: 90 tablet; Refill: 1 - spironolactone (ALDACTONE) 25 mg tablet; Take 1 tablet (25 mg total) by mouth in the morning. Dispense: 90 tablet; Refill: 0 3. Obesity, morbid ([facility]) -this plays a major role in his diabetes and heart failure -consider adding G LP 1 agent in addition to current regimen 4. Stage 3b chronic kidney disease ([facility]) -GFR ranges 46-76 over the past year -continue renal protective strategies -is on ARB plus SGLT2 agent 5. Encounter for screening for malignant neoplasm of prostate -has not been checked in> 5 years - Prostatic specific antigen screen; Future 6. Encounter for immunization -influenza vaccination today - Influenza, Trivalent, Adjuvanted - Immunization, In Clinic,; Inject 0.5 mL into the appropriate muscle once for 1 dose. flu vac 65up (PF) 45 MCG(15 MCGX3)/0.5 mL Sign this order to satisfy the OSBOP Positive ID requirements for immunization orders. 7. Primary osteoarthritis of right shoulder -previously received relief with injection at orthopedic office -I advised patient that if he should have ongoing pain and shoulders or even his knees he should contact Orthopedics about repeat injections - baclofen 5 mg tablet; Take 1 tablet by mouth 2 (two) times a day as needed (back spasm). Dispense: 60 tablet; Refill: 2 8. Non-seasonal allergic rhinitis, unspecified trigger -refill Nereyda to use as needed - fexofenadine (NEREYDA) 180 mg tablet; Take 1 tablet (180 mg total) by mouth daily as needed (congestion). Dispense: 30 tablet; Refill: 2 Subjective DIABETIC VISIT This is a follow up of a pre-existing problem. Patient self monitoring includes Not checking BG at home. Patient experiences hypoglycemia None. Patient symptoms of hyperglycemia include: none. Current prescribed diet is consistent carbohydrate. Patient is not following the prescribed diet plan. Home activity includes: The patient does not participate in regular exercise at present.. Patient does not experience numbness or burning in their hands or feet. Patient does have vision changes. Last eye exam was: 2023 Patient BP monitoring is not being done. Patient reports: taking medications as instructed, no medication side effects noted, patient does not perform home BP monitoring, no chest pain on exertion, no dyspnea on exertion, no swelling of ankles, no orthostatic dizziness or lightheadedness, no palpitations, and no intermittent claudication symptoms Issues affecting compliance with diabetic self management include: limited ability to travel, exercise, and limited resources at home. Also, ran out of all of his medications about one-month ago, and just is not taking anything. A review of systems was negative except for the following: General: weight gain. Exam BP 130/80 (BP Site: Left Arm, BP Postition: Sitting) Pulse 78 Temp 36.4 C (97.6 F) (Oral) Resp 20 Ht 167.6 cm (5' 6 ) Wt (!) 192.3 kg (424 lb) SpO2 97% BMI 68.44 kg/m Physical Exam Vitals reviewed. Constitutional: General: He is not in acute distress. Appearance: He is well-developed. He is obese. He is not toxic-appearing. HENT: Head: Normocephalic. Right Ear: External ear normal. Left Ear: External ear normal. Nose: Nose normal. Mouth/Throat: Mouth: Mucous membranes are moist. Comments: Dentition poor. Eyes: General: No scleral icterus. Neck: Vascular: No carotid bruit. Cardiovascular: Rate and Rhythm: Normal rate and regular rhythm. Heart sounds: No murmur heard. No gallop. Comments: Tones distant Pulmonary: Effort: Pulmonary effort is normal. Breath sounds: No wheezing or rales. Abdominal: Palpations: Abdomen is soft. Comments: Large, protuberant pannus with skin thickening but no discoloration or erythema Musculoskeletal: General: Tenderness (Bilateral ankles both medial and lateral malleolus, and anterior talar bones) present. Right lower leg: Edema (1+) present. Left lower leg: Edema (1+) present. Comments: Right shoulder tender to touch. Limited abduction, and internal and external rotation Skin: General: Skin is warm and dry. Coloration: Skin is not jaundiced. Findings: No bruising. Comments: Chronic discoloration and thickened skin bilateral legs and feet. Both feet with multiple, thick calluses. Neurological: Mental Status: He is alert and oriented to person, place, and time. Sensory: Sensory deficit (Absent monofilament finding bilateral feet and ankles. Vibratory sensation diminished bilateral feet, toes and ankles.) present. Motor: Weakness (Bilateral legs) present. Coordination: Coordination normal. Gait: Gait abnormal (In a wheelchair). Deep Tendon Reflexes: Reflexes are normal and symmetric. Psychiatric: Mood and Affect: Mood normal. Behavior: Behavior normal. Left: Pulses Posterior Tibial: diminished Vibratory sensation diminished Filament test absent Right: Pulses Posterior Tibial: diminished Vibratory sensation diminished Filament test absent Meds Current Outpatient Medications: albuterol (PROVENTIL HFA;VENTOLIN HFA) 90 mcg/actuation inhaler, INHALE 2 PUFFS BY MOUTH EVERY 4 HOURS NEEDED for SHORTNESS OF BREATH or FOR WHEEZING, Disp: , Rfl: aspirin 81 mg chewable tablet, Chew 1 tablet (81 mg total) and swallow in the morning., Disp: 90 tablet, Rfl: 1 magnesium oxide 250 mg tablet, Take 1 tablet (250 mg total) by mouth in the morning., Disp: 90 tablet, Rfl: 1 atorvastatin (LIPITOR) 40 mg tablet, Take 1 tablet (40 mg total) by mouth nightly., Disp: 90 tablet, Rfl: 1 baclofen 5 mg tablet, Take 1 tablet by mouth 2 (two) times a day as needed (back spasm)., Disp: 60 tablet, Rfl: 2 carvediloL (COREG) 12.5 mg tablet, Take 1 tablet (12.5 mg total) by mouth in the morning and 1 tablet (12.5 mg total) in the evening. Take with meals., Disp: 180 tablet, Rfl: 1 dapagliflozin propanediol (FARXIGA) 10 mg tablet, Take 1 tablet (10 mg total) by mouth in the morning., Disp: 90 tablet, Rfl: 1 fexofenadine (NEREYDA) 180 mg tablet, Take 1 tablet (180 mg total) by mouth daily as needed (congestion)., Disp: 30 tablet, Rfl: 2 furosemide (LASIX) 40 mg tablet, Take 1 tablet (40 mg total) by mouth daily., Disp: 30 tablet, Rfl: 11 Immunization, In Clinic,, Inject 0.5 mL into the appropriate muscle once for 1 dose. flu vac 65up (PF) 45 MCG(15 MCGX3)/0.5 mL Sign this order to satisfy the OSBOP Positive ID requirements for immunization orders., Disp: , Rfl: losartan (COZAAR) 50 mg tablet, Take 1 tablet (50 mg total) by mouth in the morning., Disp: 90 tablet, Rfl: 1 metFORMIN (GLUCOPHAGE) 1000 mg tablet, Take 1 tablet (1,000 mg total) by mouth in the morning and 1 tablet (1,000 mg total) before bedtime., Disp: 180 tablet, Rfl: 0 spironolactone (ALDACTONE) 25 mg tablet, Take 1 tablet (25 mg total) by mouth in the morning., Disp: 90 tablet, Rfl: 0 Lab Results No visits with results within 1 Month(s) from this visit. Latest known visit with results is: Hospital Outpatient Visit on 01/17/2024 Component Date Value Ref Range Status Microalbumin urine 01/17/2024 2.2 (H) 0.0 - 1.9 mg/dL Final Urine creat 01/17/2024 132.81 mg/dL Final Alb/creat ratio 01/17/2024 16.6 0.0 - 30.0 mg/g creat Final Other Testing No results found. Merritt Thacker DO., [facility]: [phone] documented in this encounter [facility] 03-02-2024 Telephone encounter Note Called and left vm for patient. [facility] 03-02-2024 Miscellaneous Notes Called and left vm for patient. 's office called regarding a referral they received. is not accepting new patients at this time. Please advise. documented in this encounter [facility] 03-01-2024 Telephone encounter Note 's office called regarding a referral they received. is not accepting new patients at this time. Please advise. [facility] 02-29-2024 History of Present illness Narrative Associated Order(s): L Inj/Asp: R subacromial bursa Post-Procedure Diagnose(s): Impingement of right shoulder Subjective Patient ID: Cristobal Garcia is a 58 y.o. male. RT Shoulder (Dr. Thacker Referral) 10 months s/p RT subacromial injection (04/11/23) with 80% improvement which lasted 3-4 months, denies injury. He notes last month he was in the hospital for CHF, but this did not influence the shoulder. RT shoulder pain x a few years, getting worse the past few months. Pain diffuse in shoulder and radiates down his bicep. Denies neck pain. Pain is constant. Pain at rest 6/10. Pain at worst 10/10 with movement. Limited ROM. Has been getting worse this past year. Denies N/T. Admits waking at night. Denies locking/catching. Admits occas cracking and popping. Denies swelling. Denies pain meds. Denies ice, heat, and creams. Tried an OTC cream w/o relief. Limited ROM. Using a walker in office No sx. Pt is RT handed TX: xrays RT shoulder [facility] 03/17/23, PCP 03/21/23, subacromial injection 03/28/23, depo medrol subacromial injection 04/11/23, OTC cream Objective Right Shoulder Exam Range of Motion Active abduction: 100 Tests Zhang test: positive Drop arm: positive Shoulder Musculoskeletal Exam Palpation Right Crepitus: moderate Tenderness: present Anterior shoulder: moderate Range of Motion Right Active ROM: pain. Passive ROM: pain. Active forward elevation: 100. Shoulder active abduction: 100. Active external rotation in abduction: 40. Internal rotation: side. Special Tests Right Rotator Cuff Signs Zhang test: positive Drop arm test: positive L Inj/Asp: R subacromial bursa on 02/29/2024 1:02 PM Indications: pain Details: 20 G needle, posterior approach Medications: 40 mg methylPREDNISolone acetate 40 MG/ML Utilizing aseptic technique with universal precautions . Pt given injection Right Shoulder SA space Procedure, treatment alternatives, risks and benefits explained, specific risks discussed. Consent was given by the patient. Assessment/Plan Encounter Diagnoses: ICD-10-CM 1. Right shoulder pain, unspecified chronicity M25.511 2. Chronic pain of both knees M25.561 Ambulatory referral to Pain Medicine M25.562 G89.29 3. Chronic pain of both ankles M25.571 Ambulatory referral to Podiatry G89.29 M25.572 Discussion of options, pt notes he would like an injection, side effects of bleeding and infection discussed, would like to proceed with the injection, using aspectic technique 40 mg of depo medrol was injected into the right subacromial space, pt tolerated well, bandaid applied, may do activities as tolerated, f/U prn. He notes he never heard from [facility] pain management, will send him back for eval of his bilateral knees for possible visco supplementation He notes since he came off his nsaids by his pcp his bilateral ankle and knees have been bothering him. Will send to dr. Payne, he is looking for ankle injections documented in this encounter [facility] 02-21-2024 History of Present illness Narrative IM PROGRESS NOTE Patient - Cristobal Garcia Age - 58 y.o. - 1965 ASSESSMENT & PLAN 1. Type 2 diabetes mellitus without complication, without long-term current use of insulin ([facility]) -I reviewed the results of the recent A1c with the patient. 7.1%. Near goal. -however, Rybelsus no longer covered by insurance. -will switch to Farxiga 10 mg daily due to his chronic heart failure -continue metformin 1000 mg b.i.d., with hopes that we can wean this off in the future - atorvastatin (LIPITOR) 40 mg tablet; Take 1 tablet (40 mg total) by mouth nightly. Dispense: 90 tablet; Refill: 1 - metFORMIN (GLUCOPHAGE) 1000 mg tablet; Take 1 tablet (1,000 mg total) by mouth in the morning and 1 tablet (1,000 mg total) before bedtime. Dispense: 180 tablet; Refill: 0 2. Chronic combined systolic and diastolic CHF (congestive heart failure) ([facility]) -GDMT includes ARB (losartan), beta-bishop (carvedilol), spironolactone (Aldactone), and loop diuretic (furosemide). -will add SGLT2 agent in the form of Farxiga 10 mg daily - losartan (COZAAR) 50 mg tablet; Take 1 tablet (50 mg total) by mouth in the morning. Dispense: 90 tablet; Refill: 1 - carvediloL (COREG) 12.5 mg tablet; Take 1 tablet (12.5 mg total) by mouth in the morning and 1 tablet (12.5 mg total) in the evening. Take with meals. Dispense: 180 tablet; Refill: 1 - spironolactone (ALDACTONE) 25 mg tablet; Take 1 tablet (25 mg total) by mouth in the morning. Dispense: 90 tablet; Refill: 0 - dapagliflozin propanediol (FARXIGA) 10 mg tablet; Take 1 tablet (10 mg total) by mouth in the morning. Dispense: 90 tablet; Refill: 1 3. Primary osteoarthritis of right shoulder -we discussed the problems with his kidney and heart failure associated with oral NSAIDs. I told him I would not prescribe an oral NSAID for him -refill baclofen, and may continue to use topical liniments - baclofen 5 mg tablet; Take 1 tablet by mouth 2 (two) times a day as needed (back spasm). Dispense: 60 tablet; Refill: 2 - Ambulatory referral to Orthopedic Surgery ([facility]); Future 4. Chronic right shoulder pain -previously received 3-4 months of relief with shoulder injection at Dr. Francis's office - Ambulatory referral to Orthopedic Surgery ([facility]); Future 5. Primary osteoarthritis of both ankles -might benefit from injection in the ankles. - Ambulatory referral to Orthopedic Surgery ([facility]); Future Subjective DIABETIC VISIT This is a follow up of a pre-existing problem. Patient self monitoring includes Not checking BG at home. Patient experiences hypoglycemia None. Patient symptoms of hyperglycemia include: none. Current prescribed diet is consistent carbohydrate. Patient is not following the prescribed diet plan. Eats whatever and whenever Home activity includes: The patient does not participate in regular exercise at present.. Patient does not experience numbness or burning in their hands or feet. Patient does not have vision changes. Last eye exam was: 2022 Patient BP monitoring is done sporadically, and can't recall values. Patient reports: taking medications as instructed, no medication side effects noted, patient does not perform home BP monitoring, no chest pain on exertion, no dyspnea on exertion, no swelling of ankles, no orthostatic dizziness or lightheadedness, no palpitations, and no intermittent claudication symptoms Issues affecting compliance with diabetic self management include: Ran out of 5 or 6 of his medications about 2 weeks ago, and they have not been refilled. He called the pharmacy, and they told him to call the office, but he never did. Has been off of the metformin, never started Farxiga, and is done taking the Rybelsus. A review of systems was negative except for the following: General: weight loss Musculoskeletal: gait disturbance, joint pain, and pain in ankle - bilateral, knee - bilateral, and shoulder - bilateral. Has been seen by Orthopedics ([facility]) in the past and received injections to the shoulder which helped. He is having increased pain in his ankles and knees, and did not think the Voltaren gel was helping. He states he did get Synvisc injections about 15-20 years ago. He previously had been seen at neurology office and received trigger point and spinal injections. He would like to go back on Voltaren tablet. Exam BP 130/70 (BP Site: Left Arm, BP Postition: Sitting) Pulse 88 Temp 36.4 C (97.6 F) (Oral) Ht 167.6 cm (5' 6 ) Wt (!) 179.2 kg (395 lb) SpO2 95% BMI 63.75 kg/m Physical Exam Vitals reviewed. Constitutional: General: He is not in acute distress. Appearance: He is well-developed. He is obese. He is not toxic-appearing. HENT: Head: Normocephalic. Right Ear: External ear normal. Left Ear: External ear normal. Nose: Nose normal. Mouth/Throat: Mouth: Mucous membranes are moist. Comments: Dentition poor. Eyes: General: No scleral icterus. Neck: Vascular: No carotid bruit. Cardiovascular: Rate and Rhythm: Normal rate and regular rhythm. Heart sounds: No murmur heard. No gallop. Comments: Tones distant Pulmonary: Effort: Pulmonary effort is normal. Breath sounds: No wheezing or rales. Abdominal: Palpations: Abdomen is soft. Comments: Large, protuberant pannus with skin thickening but no discoloration or erythema Musculoskeletal: General: Tenderness (Bilateral ankles both medial and lateral malleolus, and anterior talar bones) present. Right lower leg: Edema (1+) present. Left lower leg: Edema (1+) present. Comments: Right shoulder tender to touch. Limited abduction, and internal and external rotation Skin: General: Skin is warm and dry. Coloration: Skin is not jaundiced. Findings: No bruising. Comments: Chronic discoloration and thickened skin bilateral legs and feet. Both feet with multiple, thick calluses. Neurological: Mental Status: He is alert and oriented to person, place, and time. Sensory: Sensory deficit (Variable monofilament finding bilateral feet and ankles. Vibratory sensation intact bilateral feet, toes and ankles.) present. Motor: Weakness (Bilateral legs) present. Coordination: Coordination normal. Gait: Gait abnormal (In a wheelchair). Deep Tendon Reflexes: Reflexes are normal and symmetric. Psychiatric: Mood and Affect: Mood normal. Behavior: Behavior normal. Left: Pulses Posterior Tibial: diminished Vibratory sensation normal Filament test variable Right: Pulses Posterior Tibial: diminished Vibratory sensation normal Filament test variable Meds Current Outpatient Medications: albuterol (PROVENTIL HFA;VENTOLIN HFA) 90 mcg/actuation inhaler, INHALE 2 PUFFS BY MOUTH EVERY 4 HOURS NEEDED for SHORTNESS OF BREATH or FOR WHEEZING, Disp: , Rfl: aspirin 81 mg chewable tablet, Chew 1 tablet (81 mg total) and swallow in the morning., Disp: 90 tablet, Rfl: 1 atorvastatin (LIPITOR) 40 mg tablet, Take 1 tablet (40 mg total) by mouth nightly., Disp: 90 tablet, Rfl: 1 baclofen 5 mg tablet, Take 1 tablet by mouth 2 (two) times a day as needed (back spasm)., Disp: 60 tablet, Rfl: 2 benzonatate (TESSALON PERLES) 100 mg capsule, TAKE 2 CAPSULES BY MOUTH EVERY 8 HOURS NEEDED for coughing, Disp: , Rfl: carvediloL (COREG) 12.5 mg tablet, Take 1 tablet (12.5 mg total) by mouth in the morning and 1 tablet (12.5 mg total) in the evening. Take with meals., Disp: 180 tablet, Rfl: 1 dapagliflozin propanediol (FARXIGA) 10 mg tablet, Take 1 tablet (10 mg total) by mouth in the morning., Disp: 90 tablet, Rfl: 1 furosemide (LASIX) 40 mg tablet, Take 1 tablet (40 mg total) by mouth daily., Disp: 30 tablet, Rfl: 11 losartan (COZAAR) 50 mg tablet, Take 1 tablet (50 mg total) by mouth in the morning., Disp: 90 tablet, Rfl: 1 magnesium oxide 250 mg tablet, Take 1 tablet (250 mg total) by mouth in the morning., Disp: 90 tablet, Rfl: 1 metFORMIN (GLUCOPHAGE) 1000 mg tablet, Take 1 tablet (1,000 mg total) by mouth in the morning and 1 tablet (1,000 mg total) before bedtime., Disp: 180 tablet, Rfl: 0 spironolactone (ALDACTONE) 25 mg tablet, Take 1 tablet (25 mg total) by mouth in the morning., Disp: 90 tablet, Rfl: 0 Lab Results No visits with results within 1 Month(s) from this visit. Latest known visit with results is: Hospital Outpatient Visit on 01/17/2024 Component Date Value Ref Range Status Microalbumin urine 01/17/2024 2.2 (H) 0.0 - 1.9 mg/dL Final Urine creat 01/17/2024 132.81 mg/dL Final Alb/creat ratio 01/17/2024 16.6 0.0 - 30.0 mg/g creat Final Other Testing No results found. Merritt Thacker DO., [facility]: [phone] [email or web address] History of Present illness Narrative Subjective Patient ID: Cristobal Garcia is a 58 y.o. male. The patient is here today for discharge follow up from hospital. Transition of Care Med Rec completed? Yes Discharged medications: Medications have been reviewed and reconciled with the most recent facility discharge document. HPI The following portions of the patient's history were reviewed and updated as appropriate: current medications, past family history, past medical history, past social history, past surgical history, problem list, and medication reconciliation was completed including current medication and post discharge medication. He was discharged from [facility] after being admitted for acute on chronic combined systolic and diastolic heart failure. Received multiple days of IV diuresis. Was seen by Cardiology Abdiel. Was initiated on GDMT therapy including spironolactone, loop diuretic, beta-bishop, and ARB. He lost close to 60 lb. He still feels short of breath with too much exertion . However he is able to walk 20-30 feet with in his home without stopping. He does not have oxygen at home. He reports he is not taking all the prescribed medications on a daily basis. He ran out of Bumex and is taking his old furosemide. In addition, he was prescribed Voltaren at discharge. Review of Systems Constitutional: Positive for fatigue. Negative for activity change and diaphoresis. HENT: Positive for dental problem. Eyes: Negative for visual disturbance. Respiratory: Positive for shortness of breath. Cardiovascular: Positive for leg swelling. Gastrointestinal: Negative. Endocrine: Negative. Genitourinary: Positive for frequency. Musculoskeletal: Positive for arthralgias, back pain and gait problem (Uses a walker at all times at home. Wheelchair outside of the home.). Skin: Negative. Neurological: Positive for weakness. Psychiatric/Behavioral: Negative. Objective Physical Exam Vitals reviewed. Constitutional: General: He is not in acute distress. Appearance: He is obese. He is not toxic-appearing. HENT: Head: Normocephalic. Right Ear: External ear normal. Left Ear: External ear normal. Mouth/Throat: Mouth: Mucous membranes are dry. Comments: Poor dentition Eyes: General: No scleral icterus. Neck: Comments: Unable to assess for JVD Cardiovascular: Rate and Rhythm: Normal rate. Comments: Heart tones are distant and difficult to auscultate Pulmonary: Effort: Pulmonary effort is normal. No respiratory distress. Breath sounds: No wheezing. Abdominal: Comments: Morbidly obese with protuberant abdomen large pannus hanging below his pelvis Musculoskeletal: Right lower leg: Edema (2+) present. Left lower leg: Edema (2+) present. Skin: General: Skin is warm and dry. Coloration: Skin is not jaundiced. Findings: No bruising. Comments: Chronic pink discoloration to bilateral lower extremities. No open areas noted. Neurological: Mental Status: He is alert and oriented to person, place, and time. Gait: Gait abnormal (Patient in a wheelchair). Psychiatric: Mood and Affect: Mood normal. Behavior: Behavior normal. Assessment/Plan Cristobal was seen today for follow-up. His chronic heart failure is symptomatically improved. However, he has not been 100% compliant with his medications. I reiterated the need for him to take all medications on a daily basis, not just when he feels that he is starting to swell up. In addition, we will re-evaluate his diabetes, as his insurance company will no longer cover Rybelsus. He would benefit from switching to an SGLT 2 bishop given his heart failure. Labs were ordered and further recommendations pending the results. Addition, we will evaluate his need for home nocturnal oxygen. Request sent to [employer]. Diagnoses and all orders for this visit: Chronic combined systolic and diastolic CHF (congestive heart failure) ([facility]) - aspirin 81 mg chewable tablet; Chew 1 tablet (81 mg total) and swallow in the morning. - magnesium oxide 250 mg tablet; Take 1 tablet (250 mg total) by mouth in the morning. - furosemide (LASIX) 40 mg tablet; Take 1 tablet (40 mg total) by mouth daily. - Magnesium; Future Type 2 diabetes mellitus without complication, without long-term current use of insulin ([facility]) - Hemoglobin A1c; Future - Microalbumin - Albumin: Creatinine Urine Ratio; Future Primary osteoarthritis of right shoulder - baclofen 5 mg tablet; Take 1 tablet by mouth 2 (two) times a day as needed (back spasm). - diclofenac sodium (VOLTAREN) 1 % gel; Apply 2 g topically in the morning and 2 g at noon and 2 g in the evening and 2 g before bedtime. Stage 3b chronic kidney disease (CMS-HCC) - CBC auto differential; Future Hyperlipidemia, unspecified hyperlipidemia type - Comprehensive metabolic panel; Future - Lipid profile; Future documented in this encounter [facility] 01-09-2024 Miscellaneous Notes Alyssa from [facility] called wanting to know if you would follow this pt for home health care as he was discharged today from [facility] Message noted. Yes Message noted. Yes. He will need a TCM He comes in 01/15 is that okay Message noted. Yes documented in this encounter [facility] 01-09-2024 Telephone encounter Note Alyssa from [facility] called wanting to know if you would follow this pt for home health care as he was discharged today from [facility] 01-09-2024 Telephone encounter Note Message noted. Yes [facility] 01-09-2024 Telephone encounter Note Message noted. Yes. He will need a TCM [facility] 01-09-2024 Telephone encounter Note He comes in 01/15 is that okay [facility] 01-09-2024 Telephone encounter Note Message noted. Yes [facility] 01-02-2024 History of Present illness Narrative Subjective Patient ID: Cristobal Garcia is a 58 y.o. male. The patient is here today for discharge follow up from hospital. Transition of Care Med Rec completed? Yes Discharged medications: Medications have been reviewed and reconciled with the most recent facility discharge document. HPI The following portions of the patient's history were reviewed and updated as appropriate: current medications, past medical history, past social history, past surgical history, problem list, and medication reconciliation was completed including current medication and post discharge medication. Patient was discharge from [facility] on 12/19/2023 after being admitted for congestive heart failure. At that visit, he had an echocardiogram which showed an EF of 35%, with dilated right and left ventricles and dilated right and left atria. He was given IV Bumex and placed on oral nitrate. He had diuresis, and was discharged in 1-2 days. His medication regimen was changed, and he was taken often ARB agent, taken off semaglutide, taken off furosemide, and taken off of atorvastatin. In its place, he was put on Imdur, metoprolol, and bumetanide. Since being home, he says his breathing has progressively worsened, where he is not able to do any activity without being short of breath. He thinks he has gained about 20 lb. His legs are the most swollen he has ever had. In addition, he says that he has noticed decreased urine output over the last day, and it now looks like ice tea . Review of Systems Constitutional: Positive for activity change and fatigue. Eyes: Negative for visual disturbance. Respiratory: Positive for shortness of breath. Cardiovascular: Positive for leg swelling. Gastrointestinal: Positive for abdominal distention. Genitourinary: Positive for decreased urine volume. Musculoskeletal: Positive for arthralgias and gait problem. Skin: Positive for color change. Neurological: Positive for weakness. Psychiatric/Behavioral: Positive for sleep disturbance. Objective Physical Exam Vitals reviewed. Constitutional: Appearance: He is obese. He is ill-appearing. He is not toxic-appearing. HENT: Head: Normocephalic. Right Ear: External ear normal. Left Ear: External ear normal. Mouth/Throat: Mouth: Mucous membranes are dry. Eyes: General: No scleral icterus. Neck: Comments: Unable to assess for JVD Cardiovascular: Rate and Rhythm: Normal rate. Comments: Heart tones are distant and difficult to auscultate Pulmonary: Effort: Pulmonary effort is normal. No respiratory distress. Comments: Diminished breath sounds bilaterally in the bases Abdominal: Comments: Morbidly obese with protuberant abdomen Musculoskeletal: Right lower leg: Edema (3+) present. Left lower leg: Edema (3+) present. Skin: General: Skin is warm and dry. Comments: Chronic pink discoloration to bilateral lower extremities. No open areas noted. Neurological: Mental Status: He is alert and oriented to person, place, and time. Gait: Gait abnormal (Patient in a wheelchair). Psychiatric: Mood and Affect: Mood normal. Behavior: Behavior normal. Assessment/Plan Cristobal was seen today for bloating and swelling belly on down. He apparently has had return of all his symptoms since he was discharged from [facility], and actually feels worse. It does appear that he is having an acute exacerbation of his systolic congestive heart failure, although I am not sure that it ever was fully evaluated and treated. Was not initiated on typical GDMT medications, and probably needs further evaluation of his underlying systolic dysfunction , which appears to be new according to him. Diagnoses and all orders for this visit: Acute on chronic systolic congestive heart failure (CMS-HCC) - I advised the patient that he needs to be admitted to the hospital to re-evaluate his current medical regimen, particularly with an eye toward starting SGLT2 agent, Entresto, spironolactone. I phoned to the [facility], but no rooms are available and patient is are being boarded in the ER. I advised the patient to had directly to the [facility] for readmission at this time. Essential hypertension - overall control today. -no changes. Treatment for congestive heart failure will involve controlling hypertension Stage 3b chronic kidney disease ([facility]) - need to reassess renal function given his description of ice tea urine - admit to hospital as above Type 2 diabetes mellitus without complication, without long-term current use of insulin ([facility]) - previously on Rybelsus plus metformin - currently only on metformin, which given his kidney disease may not be the best choice - probably needs SGLT2 agent given his heart failure and diabetes - this will be evaluated during admission Obesity, morbid ([facility]) - BMI 68 - some of this may be water weight. Needs to be addressed during admission. documented in this encounter [facility] 12-26-2023 Miscellaneous Notes ----- Message from Dr. Merritt Thacker DO sent at 09/07/2023 7:47 PM EDT ----- DM recheck Pt hung up documented in this encounter [facility] 12-26-2023 Telephone encounter Note ----- Message from Dr. Merritt Thacker DO sent at 09/07/2023 7:47 PM EDT ----- DM recheck [facility] 12-26-2023 Telephone encounter Note Pt hung up [facility] 12-14-2023 Miscellaneous Notes Patient called and stated he is retaining fluid in his abdomen area and it is making him so SOB. What do you suggest he do? Message noted. I have no room for him today He will need to go to the ED Patient notified and understands. documented in this encounter [facility] 12-14-2023 Telephone encounter Note Patient called and stated he is retaining fluid in his abdomen area and it is making him so SOB. What do you suggest he do? [facility] 12-14-2023 Telephone encounter Note Message noted. I have no room for him today He will need to go to the ED [facility] 12-14-2023 Telephone encounter Note Patient notified and understands. [facility] 09-15-2023 Miscellaneous Notes Pt called and states he was wondering if his sample of RYBELSUS was ready. It is and he states he will pick it up. Picked up documented in this encounter [facility] 09-15-2023 Telephone encounter Note Pt called and states he was wondering if his sample of RYMATTSUS was ready. It is and he states he will pick it up. [facility] Telephone encounter Note [facility] 09-07-2023 History of Present illness Narrative IM PROGRESS NOTE Patient - Cristobal Garcia Age - 57 y[facility] 1965 [id number] ASSESSMENT & PLAN 1. Type 2 diabetes mellitus without complication, without long-term current use of insulin ([facility]) - Goals of treatment reviewed with patient - Currently on metformin and sitagliptan - Repeat A1c to assess efficacy of treatment. Might be better with GLP-1 and SGLT-2 agents - Comprehensive metabolic panel; Future - Hemoglobin A1c; Future - Lipid profile; Future 2. Stage 3b chronic kidney disease ([facility]) - Repeat GFR - Renal protective strategies reviewed with patient. - Advised patient to stop voltaren tablets - May benefit from SGLT-2 3. Essential hypertension - Goals reviewed with patient - Currently taking losartan 50 mg daily - No change today 4. Class 3 severe obesity due to excess calories with serious comorbidity and body mass index (BMI) of 60.0 to 69.9 in adult ([facility]) - We reviewed importance of weight loss in controlling other medical problems - Excellent candidate for GLP-1 agent 5. Immunization due - Encouraged to update immunization status - adjuvant AS01B, PF,vial 1 of 2 (SHINGRIX ADJUVANT COMPONENT-PF) suspension; Inject 0.5 mL into the appropriate muscle once for 1 dose. Repeat dose in 2 -4 months Dispense: 0.5 mL; Refill: 1 Subjective DIABETIC VISIT This is a follow up of a pre-existing problem. Patient self monitoring includes Not checking BG at home. Patient experiences hypoglycemia None. Patient symptoms of hyperglycemia include: none. Current prescribed diet is meat and potatoes, limited vegetables. Patient is not following the prescribed diet plan. Home activity includes: The patient does not participate in regular exercise at present.. Patient does not experience numbness or burning in their hands or feet. Patient does not have vision changes. Last eye exam was: 2021 Patient BP monitoring is not being done. Patient reports: taking medications as instructed, no medication side effects noted, patient does not perform home BP monitoring, no chest pain on exertion, no dyspnea on exertion, no swelling of ankles, no orthostatic dizziness or lightheadedness, no palpitations, and no intermittent claudication symptoms Issues affecting compliance with diabetic self management include: unable to afford fresh fruits and vegetables. Is not certain of what medications he is actually taking. A review of systems was negative except for the following: General: fatigue, sleep disturbance, and weight gain Psychiatric: memory difficulties ENT: hearing change Abdomen: Patient is concerned about his large pannus. Exam BP 128/84 (BP Site: Left Arm, BP Postition: Sitting) Pulse 88 Temp 36.2 C (97.2 F) (Temporal) Resp 20 Ht 167.6 cm (5' 6 ) Wt (!) 193.5 kg (426 lb 9.6 oz) SpO2 98% BMI 68.86 kg/m Physical Exam Vitals reviewed. Constitutional: General: He is not in acute distress. Appearance: He is well-developed. He is obese. He is not toxic-appearing. HENT: Head: Normocephalic. Right Ear: Ear canal and external ear normal. Left Ear: Ear canal and external ear normal. Nose: Nose normal. Mouth/Throat: Mouth: Mucous membranes are moist. Comments: Dentition poor. Eyes: General: No scleral icterus. Neck: Vascular: No carotid bruit. Cardiovascular: Rate and Rhythm: Normal rate and regular rhythm. Heart sounds: No murmur heard. No gallop. Comments: Tones distant Pulmonary: Effort: Pulmonary effort is normal. Breath sounds: No wheezing or rales. Abdominal: Palpations: Abdomen is soft. Comments: Large, protuberant pannus with skin thickening but no discoloration or erythema Musculoskeletal: Right lower leg: Edema (1+) present. Left lower leg: Edema (1+) present. Comments: Right shoulder tender to touch. Limited abduction, and internal and external rotation Skin: General: Skin is warm and dry. Coloration: Skin is not jaundiced. Findings: No bruising. Comments: Chronic discoloration and thickened skin bilateral legs and feet. Both feet with multiple, thick calluses. Neurological: Mental Status: He is alert and oriented to person, place, and time. Sensory: Sensory deficit (Variable monofilament finding bilateral feet and ankles. Vibratory sensation intact bilateral feet, toes and ankles.) present. Motor: Weakness (Bilateral legs) present. Gait: Gait abnormal (Using a walker). Deep Tendon Reflexes: Reflexes are normal and symmetric. Psychiatric: Mood and Affect: Mood normal. Behavior: Behavior normal. Meds Current Outpatient Medications: diclofenac (VOLTAREN) 75 mg EC tablet, TAKE 1 TABLET BY MOUTH TWICE DAILY, Disp: , Rfl: DULoxetine (CYMBALTA) 30 mg capsule, Take 1 capsule every day by oral route., Disp: , Rfl: fexofenadine (NEREYDA) 180 mg tablet, Take 1 tablet (180 mg total) by mouth in the morning., Disp: , Rfl: furosemide (LASIX) 40 mg tablet, Take 1 tablet (40 mg total) by mouth daily., Disp: , Rfl: losartan (COZAAR) 50 mg tablet, Take 1 tablet (50 mg total) by mouth in the morning., Disp: 90 tablet, Rfl: 0 metFORMIN (GLUCOPHAGE) 1000 mg tablet, Take 1 tablet (1,000 mg total) by mouth in the morning and 1 tablet (1,000 mg total) before bedtime., Disp: , Rfl: SITagliptin phosphate (JANUVIA) 100 mg tablet, Take 1 tablet (100 mg total) by mouth in the morning., Disp: 90 tablet, Rfl: 1 tiZANidine (ZANAFLEX) 4 mg capsule, Take 1 capsule (4 mg total) by mouth every 8 (eight) hours as needed., Disp: , Rfl: adjuvant AS01B, PF,vial 1 of 2 (SHINGRIX ADJUVANT COMPONENT-PF) suspension, Inject 0.5 mL into the appropriate muscle once for 1 dose. Repeat dose in 2 -4 months, Disp: 0.5 mL, Rfl: 1 atorvastatin (LIPITOR) 20 mg tablet, Take 1 tablet (20 mg total) by mouth in the morning. (Patient not taking: Reported on 09/07/2023), Disp: 90 tablet, Rfl: 0 diclofenac sodium (VOLTAREN) 1 % gel, Apply 2 g topically in the morning and 2 g at noon and 2 g in the evening and 2 g before bedtime. (Patient not taking: Reported on 09/07/2023), Disp: 100 g, Rfl: 2 Lab Results No visits with results within 1 Month(s) from this visit. Latest known visit with results is: Hospital Outpatient Visit on 01/10/2023 Component Date Value Ref Range Status Microalbumin urine 01/10/2023 4.4 (H) 0.0 - 1.9 mg/dL Final Urine creat 01/10/2023 270.42 mg/dL Final Alb/creat ratio 01/10/2023 16.3 0.0 - 30.0 mg/g creat Final Cholesterol 01/10/2023 168 150 - 200 mg/dL Final Triglycerides 01/10/2023 241 (H) 27 - 150 mg/dL Final HDL Cholesterol 01/10/2023 30 (L) >39 mg/dL Final VLDL 01/10/2023 48 (H) 0 - 30 mg/dL Final LDL (calc) 01/10/2023 90 <130 mg/dL Final Cholesterol:HDL Ratio 01/10/2023 5.6 (H) 1.0 - 5.0 Final Hemoglobin A1C 01/10/2023 8.3 (H) 4.4 - 5.6 % Final Average glucose 01/10/2023 192 mg/dL Final Sodium 01/10/2023 139 134 - 146 mmol/L Final Potassium, Bld 01/10/2023 4.8 3.5 - 5.0 mmol/L Final Chloride 01/10/2023 98 98 - 109 mmol/L Final CO2 01/10/2023 30 22 - 32 mmol/L Final Anion gap 01/10/2023 11 5 - 15 mmol/L Final BUN 01/10/2023 29 (H) 5 - 23 mg/dL Final Creatinine 01/10/2023 1.71 (H) 0.60 - 1.30 mg/dL Final Glucose 01/10/2023 156 (H) 65 - 99 mg/dL Final Calcium 01/10/2023 8.9 8.5 - 10.5 mg/dL Final Total Protein 01/10/2023 7.4 6.0 - 8.0 g/dL Final Albumin 01/10/2023 4.2 3.2 - 5.3 g/dL Final Alkaline Phosphatase 01/10/2023 101 39 - 130 U/L Final AST 01/10/2023 19 0 - 41 U/L Final ALT 01/10/2023 20 0 - 40 U/L Final Total bilirubin 01/10/2023 0.5 0.3 - 1.2 mg/dL Final eGFR (CKD-EPI)non-race dependent 01/10/2023 46 (L) >59 ml/min/1.73sq.m Final Other Testing No results found. Merritt Thacker DO., [facility] Office: [phone] documented in this encounter [facility] 06-17-2023 Telephone encounter Note Sarah, patient called stated that he received two refund checks from [employer]. He deposited the checks and then was told from his bank that they bounced. If you could look into this for me please, all I am seeing is that the refunds were sent out. Call back # [phone] [facility] 06-17-2023 Miscellaneous Notes Sarah, patient called stated that he received two refund checks from [employer]. He deposited the checks and then was told from his bank that they bounced. If you could look into this for me please, all I am seeing is that the refunds were sent out. Call back # [phone] documented in this encounter [facility] Healthcare Evaluation note Diagnosis Right shoulder pain, unspecified chronicity- Primary Chronic pain of both knees Chronic pain of both ankles Impingement of right shoulder documented in this encounter [facility] HealthcareEvaluation note* Diagnosis Type 2 diabetes mellitus without complication, without long-term current use of insulin ([facility] Primary Chronic combined systolic and diastolic CHF (congestive heart failure) ([facility]) Obesity, morbid ([facility]) Morbid obesity Stage 3b chronic kidney disease ([facility]) Encounter for screening for malignant neoplasm of prostate Encounter for immunization Primary osteoarthritis of right shoulder Non-seasonal allergic rhinitis, unspecified trigger documented in this encounter [facility]* Diagnosis Type 2 diabetes mellitus without complication, without long-term current use of insulin ([facility]) documented in this encounter [facility]* Diagnosis Acute on chronic systolic congestive heart failure ([facility])- Primary Essential hypertension Unspecified essential hypertension Stage 3b chronic kidney disease ([facility]) Type 2 diabetes mellitus without complication, without long-term current use of insulin ([facility]) Obesity, morbid ([facility]) Morbid obesity documented in this encounter [facility]* Diagnosis Type 2 diabetes mellitus without complication, without long-term current use of insulin ([facility])- Primary Stage 3b chronic kidney disease ([facility]) Essential hypertension Unspecified essential hypertension Class 3 severe obesity due to excess calories with serious comorbidity and body mass index (BMI) of 60.0 to 69.9 in adult ([facility]) Immunization due documented in this encounter [facility]* Diagnosis Chronic combined systolic and diastolic CHF (congestive heart failure) ([facility])- Primary Type 2 diabetes mellitus without complication, without long-term current use of insulin ([facility]) Primary osteoarthritis of right shoulder Stage 3b chronic kidney disease ([facility]) Hyperlipidemia, unspecified hyperlipidemia type documented in this encounter [facility]* Diagnosis Type 2 diabetes mellitus without complication, without long-term current use of insulin ([facility])- Primary Chronic combined systolic and diastolic CHF (congestive heart failure) ([facility]) Primary osteoarthritis of right shoulder Chronic right shoulder pain Pain in joint, shoulder region Primary osteoarthritis of both ankles documented in this encounter [facility]* Diagnosis Type 2 diabetes mellitus without complication, without long-term current use of insulin ([facility]) documented in this encounter [facility]* Diagnosis Type 2 diabetes mellitus without complication, without long-term current use of insulin ([facility])- Primary Special screening for malignant neoplasm of colon Special screening for malignant neoplasms, colon Chronic combined systolic and diastolic CHF (congestive heart failure) ([facility]) Non-seasonal allergic rhinitis, unspecified trigger Primary osteoarthritis of right shoulder [facility] Diagnosis Type 2 diabetes mellitus without complication, without long-term current use of insulin ([facility]) Non-seasonal allergic rhinitis, unspecified trigger [facility] on filedocumented in this encounter [facility]ructionsNot on filedocumented in this encounter [facility]Not on filedocumented in this encounter [facility]Not on filedocumented in this encounter [facility] on filedocumented in this encounter [facility] on filedocumented in this encounter [facility] on filedocumented in this encounter [facility] on filedocumented in this encounter [facility] on filedocumented in this encounter [facility]Not on filedocumented in this encounter [facility] on filedocumented in this encounter [facility]Not on filedocumented in this encounter [facility] SystemInstructionsNot on filedocumented in this encounter [facility] SystemReason for referral (narrative)* Consultation (Routine) - Pending Review Specialty Diagnoses / Procedures Referred By Otoniel cruz Referred To Contact Podiatry Diagnoses Chronic pain of both ankles Procedures HI OFFICE/OUTPATIENT NEW HIGH MDM 60 MINUTES Inna Jefferson NP [address] [place] [id number] Ivan Payne MD [address] [place] [address] [place] [address] Referral ID Status Reason Start Date Expiration Date Visits Requested Visits Authorized [id number] Pending Review Specialty Services Required 02/29/2024 08/27/2024 1 1 * Consultation (Routine) - Pending Review Specialty Diagnoses / Procedures Referred By Otoniel cruz Referred To Contact Pain Medicine Diagnoses Chronic pain of both knees Procedures HI OFFICE/OUTPATIENT NEW HIGH MDM 60 MINUTES Inna Jefferson NP [address] [facility] [address] [place] [address] Karel Blackwell MD [address] [place] [address] Referral ID Status Reason Start Date Expiration Date Visits Requested Visits Authorized [id number] Pending Review Specialty Services Required 02/29/2024 08/27/2024 1 1 * Clinic-Administered Medication (Routine) - Authorized Specialty Diagnoses / Procedures Referred By Otoniel cruz Referred To Contact Orthopaedic Surgery Diagnoses Impingement of right shoulder Procedures L Inj/Asp: R subacromial bursa Inna Jefferson NP [address] [facility] [address] [place] [address] Referral ID Status Reason Start Date Expiration Date V isits Requested Visits Authorized [id number] Authorized 02/29/2024 08/27/2024 1 1 [facility] ([facility]ative[facility] Consultation (Routine) - Pending Review Specialty Diagnoses / Procedures Referred By Otoniel cruz Referred To Contact Orthopedic Surgery / MED-SURG/ORTHOPEDICS Diagnoses Primary osteoarthritis of right shoulder Chronic right shoulder pain Primary osteoarthritis of both ankles Merritt Thacker DO [address] [place] [address] Kaveh Mayer DO [address] [facility] [address] [place] [address] Referral ID Status Reason Start Date Expiration Date Visits Requested Visits Authorized [id number] Pending Review Specialty Services Required 02/21/2024 02/20/2025 8 8 [facility] Summary Purpose Family History No Family History Records FoundNo Family History Records FoundNo Family History Records FoundNo Family History Records FoundNo Family History Records FoundNo Family History Records Found Advance Directives No Advanced Directives Records FoundNo Advanced Directives Records FoundNo Advanced Directives Records FoundNo Advanced Directives Records FoundNo Advanced Directives Records FoundNo Advanced Directives Records Found Reason for Referral Specialty Diagnoses / Procedures Referred By Otoniel cruz Referred To Contact Diagnoses Type 2 diabetes mellitus without complication, without long-term current use of insulin ([facility]) Merritt Thacker DO [address] [place] [address] Referral ID Status Reason Start Date Expiration Date Visits Re quested Visits Authorized [id number] Closed 1 1 Additional Source Comments (unrecognized sect ion and content) No Status Records FoundNo Status Records FoundNo Status Records FoundNo Status Records FoundNo Status Records FoundNo Status Records Found INFORMATION SOURCE (unrecogn ized section and content) DATE CREATED AUTHOR 10/11/2020 [facility] DATE CREATED AUTHOR AUTHOR'S ORGANIZ ATION 07/03/2022 [facility] DATE CREATED AUTHOR AUTHOR'S ORGANIZ ATION 03/02/2024 [facility] EPIC DATE CREATED AUTHOR AUTHOR'S ORGANIZ ATION 09/05/2024 [facility] DATE CREATED AUTHOR AUTHOR'S ORGANIZ ATION 09/05/2024 [facility] DATE CREATED AUTHOR AUTHOR'S ORGANIZ ATION 01/22/2025 [facility] Reason for Visit (unrecogniz ed section and content) Reason Onset Date Comments Refund Checks 06/17/2023 Reason Comments Pain Specialty Diagnoses / Procedures Referred By Otoniel cruz Referred To Contact Orthopaedic Surgery Diagnoses Primary osteoarthritis of right shoulder Chronic right shoulder pain Primary osteoarthritis of both ankles Procedures AMB REFERRAL TO ORTHOPEDIC SURGERY Merritt Thacker MD [address] [place] [address] Kaveh Mayer DO [address] [facility] [address] [place] [address] Referral ID Status Reason Start Date Expiration Date Visits Re quested Visits Authorized [id number] Closed 02/21/2024 02/20/2025 8 8 Reason Onset Date Comments Referral 03/01/2024 Reason Comments Hypertension Hyperlipidemia cv Reason Onset Date Comments Med Refill 11/18/2023 Reason Comments bloating and swelling belly on down No f ever Reason Comments Diabetes Stomach some hard sk in Reason Comments Follow-up Reason Comments Diabetes Reason Comments Med Refill Reason Comments Diabetes Reason Onset Date Comments Colon Cancer Screening 02/15/2025 Care Teams (unrecognized sec tion and content) Lab Asst Relationship Specialty Start Date End Date Merritt Thacker MD [address] [place] [address] PCP - General Internal Medicine 03/28/23 Lab Asst Relationship Specialty Start Date End Date Merritt Thacker MD [address] [place] [address] PCP - General Internal Medicine 03/28/23 Lab Asst Relationship Specialty Start Date End Date Merritt Thacker MD [address] [place] [address] PCP - General Internal Medicine 03/28/23 Lab Asst Relationship Specialty Start Date End Date Merritt Thacker MD [address] [place] [address] PCP - General Internal Medicine 03/28/23 Lab Asst Relationship Specialty Start Date End Date Merritt Thacker DO [address] [place] [address] PCP - General Internal Medicine 01/12/23 Lab Asst Relationship Specialty Start Date End Date Merritt Thacker DO [address] [place] [address] PCP - General Internal Medicine 01/12/23 Lab Asst Relationship Specialty Start Date End Date Merritt Thacker DO [address] [place] [address] PCP - General Internal Medicine 01/12/23 Lab Asst Relationship Specialty Start Date End Date Merritt Thacker DO [address] [place] [address] PCP - General Internal Medicine 01/12/23 Lab Asst Relationship Specialty Start Date End Date Merritt Thacker DO [address] [place] [address] PCP - General Internal Medicine 01/12/23 Lab Asst Relationship Specialty Start Date End Date Merritt Thacker DO [address] [place] [address] PCP - General Internal Medicine 01/12/23 Lab Asst Relationship Specialty Start Date End Date Merritt Thacker DO [address] [place] [address] PCP - General Internal Medicine 01/12/23 Lab Asst Relationship Specialty Start Date End Date Merritt Thacker DO [address] [place] [address] PCP - General Internal Medicine 01/12/23 Lab Asst Relationship Specialty Start Date End Date Merritt Thacker DO [address] [place] [address] PCP - General Internal Medicine 01/12/23 Lab Asst Relationship Specialty Start Date End Date Merritt Thacker DO [address] [facility] [place] [address] PCP - General Internal Medicine 01/12/23 Lab Asst Relationship Specialty Start Date End Date Merritt Thacker DO [address] [facility] [place] [address] PCP - General Internal Medicine 01/12/23 Lab Asst Relationship Specialty Start Date End Date Merritt Thacker DO [address] [facility] [place] [address] PCP - General Internal Medicine 01/12/23 FOR RECORDS PERTAINING TO PATIENTS WHO ARE [...] BE BASED ON THE PRIMARY CLINICAL RECORDS. [facility] [employer] [facility]. provides no warranty or guarantee of the accuracy or completeness of information in this document.
[2025-03-11 13:41] LABS: Hematocrit 45.0 % (42.0-54.0); Hemoglobin 13.6 g/dL (14.0-18.0); Immature Granulocytes Abs Auto 0.10 10^3/uL (0.00-0.03); Immature Granulocytes Pct Auto 1.0 % (0.0-0.5); Lymphocytes Absolute Auto 0.9 10^3/uL (1.2-3.8); Mean Corpuscular HGB Conc 30.2 g/dL (29.9-35.2); Mean Corpuscular Hemoglobin 25.7 pg (25.9-34.0); Mean Corpuscular Volume 84.9 fL (80.0-94.0); Platelet Count 231 10^3/uL (150-450); Red Blood Count 5.30 10^6/uL (4.70-6.10); White Blood Count 10.1 10^3/uL (4.0-11.0)
[2025-03-11 13:53] LABS: SARS-CoV-2 Ag NEGATIVE (NEGATIVE)
[2025-03-11 14:03] LABS: Anion Gap 16.9; Blood Urea Nitrogen 71.0 mg/dL (7.0-18.0); Calcium 8.6 mg/dL (8.5-10.1); Carbon Dioxide 27.5 mmol/L (21.0-32.0); Chloride 101 mmol/L (98-107); Estimated GFR (African America 38 (>=60 mL/min/1.73m^2); Estimated GFR (Non-African Ame 32 (>=60 mL/min/1.73m^2); Glucose 145 mg/dL (74-106); Potassium 5.4 mmol/L (3.5-5.1); Sodium 140 mmol/L (136-145)
[2025-03-11 14:08] LABS: NT Pro B Type Natriuretic Pept 6610.0 pg/mL (<=900.0)
--- NOTE | 2025-03-11 14:31 | PC.NURSE ---
pt request a different bed, he is uncomfortable, pt assisted into reclining chair in room 6
--- NOTE | 2025-03-11 15:11 | PM.HP ---
HPI H&P: HPI History of Present Illness Chief complaint: RAMON CHI Narrative: This is a 59-year-old man with complex medical history including very morbid obesity with BMI 75, diabetes, hypertension, kidney disease, and chronic heart failure who presented to ER due to worsening SOB. States he has been having worsening SOB over the past 4-5 days. Noted that he wakes up at night diaphoretic lately. denies chest pain, dizziness, lightheadedness. He wears oxygen at night time only according to him, denies CPAP/BiPAP use. reports compliance with meds. In ER, noted with RAMON on CKD, elevated BNP, CXR showing CHF, noted with desaturation in ER 88% on RA, usually not on oxygen, K noted 5.4. Patient was placed on oxygen in ER, given IV Lasix 40 mg x 1. Decision was made to admit him for acute hypxic respiratory failure due to CHF exacerbation. Opioid HPI Opioid Management Most Recent Pain and Opioid Data: Last Pain Scale 0 01/07/25, 08:39 Last Pain Intensity 7 01/06/24, 10:21 Last Pain Assessment Today, 17:54 Last ORT Total Score 0 Today, 16:45 Last ORT Risk Category Low Risk Today, 16:45 Review of Systems ROS Status of ROS 10 or more systems reviewed and unremarkable except as noted in history and below PFSH PFSH Medical History Acute systolic (congestive) heart failure ?I50.21 - Acute systolic (congestive) heart failure (ICD-10) Morbid obesity ?E66.01 - Morbid (severe) obesity due to excess calories (ICD-10) Acute on chronic congestive heart failure ?I50.9 - Heart failure, unspecified (ICD-10) Acute combined systolic (congestive) and diastolic (congestive) heart failure ?I50.41 - Acute combined systolic (congestive) and diastolic (congestive) heart failure (ICD-10) Diabetes mellitus type 2 with complications ?E11.8 - Type 2 diabetes mellitus with unspecified complications (ICD-10) Anemia in chronic kidney disease ?N18.9 - Chronic kidney disease, unspecified (ICD-10) ?D63.1 - Anemia in chronic kidney disease (ICD-10) Chronic kidney disease, stage III (moderate) ?N18.30 - Chronic kidney disease, stage 3 unspecified (ICD-10) COPD (chronic obstructive pulmonary disease) ?J44.9 - Chronic obstructive pulmonary disease, unspecified (ICD-10) Moderate protein-calorie malnutrition ?E44.0 - Moderate protein-calorie malnutrition (ICD-10) Hypertension ?I10 - Essential (primary) hypertension (ICD-10) Pulmonary edema ?J81.1 - Chronic pulmonary edema (ICD-10) Anasarca ?R60.1 - Generalized edema (ICD-10) Abnormal colonoscopy ?R93.3 - Abnormal findings on diagnostic imaging of other parts of digestive tract (ICD-10) Surgical History History of appendectomy ?Z90.49 - Acquired absence of other specified parts of digestive tract (ICD-10) Family History Father Diabetes Mother CHF (congestive heart failure) Other Family history of CHF (congestive heart failure) Family history of diabetes mellitus Family history of hypertension Social History Within the past year, how often did you have a drink containing alcohol: never Within the past year, how often did you have six or more drinks on one occasion: never Score interpretation: A score less than 4 is consistent with normal alcohol consumption. Smoking status: Never smoker Second hand tobacco smoke exposure: No Non-prescribed substance use: denies use Previous occupational history: retired Known occupational exposures/hazards: No Highest level of school completed/degree received: high school graduate Are you now , , , , never or living with a partner: never In a typical week, how many times do you talk on the telephone with family, friends, or neighbors: 3 or more times per week How often do you get together with friends or relatives: 3 or more times per week How often do you attend samaritan or confucianist services: never Do you belong to any clubs or organizations such as samaritan groups unions, fraternal or athletic groups, or school groups: no Total score: 1 Score interpretation: A score of less than or equal to 1 indicates the most socially isolated. Little interest or pleasure in doing things: not at all Feeling down, depressed, or hopeless: not at all Feel stressed/tense/nervous/anxious/difficulty sleeping: not at all Due to disability, difficulty making decisions: No Do you think of yourself as: straight/heterosexual Gender Identity: male Meds Home Medications and Allergies Home Medications ?Medication ?Instructions ?Recorded ?Confirmed ?Type metformin 1,000 mg tablet 1,000 mg PO BID 12/16/23 03/11/25 History albuterol sulfate 90 mcg/actuation 2 inh inhalation Q4H PRN shortness 12/18/23 03/11/25 Rx aerosol inhaler of breath or wheezing #6.7 grams aspirin 81 mg chewable tablet 81 mg PO QD #30 tabs 01/09/24 03/11/25 Rx atorvastatin 40 mg tablet 40 mg PO QHS #60 tabs 01/09/24 03/11/25 Rx carvedilol 12.5 mg tablet 12.5 mg PO BID #60 tabs 01/09/24 03/11/25 Rx cetirizine 10 mg tablet 10 mg PO QAM 12/11/24 03/11/25 History furosemide 40 mg tablet 40 mg PO DAILY 12/11/24 03/11/25 History magnesium oxide 400 mg (241.3 mg 250 mg PO DAILY 12/11/24 03/11/25 History magnesium) tablet losartan 50 mg tablet 50 mg PO DAILY 12/31/24 03/11/25 History spironolactone 25 mg tablet 25 mg PO BID #60 tabs 01/07/25 03/11/25 Rx amoxicillin 875 mg-potassium 1 tab PO Q12H 03/11/25 03/11/25 History clavulanate 125 mg tablet glimepiride 2 mg tablet 2 mg PO .QD 03/11/25 03/11/25 History prednisone 20 mg tablet 60 mg PO .QD 03/11/25 03/11/25 History Allergies Allergy/AdvReac Type Severity Reaction Status Date / Time topiramate (From Topamax) AdvReac Intermediate Altered Verified 03/11/25 13:10 Sense of Taste Exam Narrative Exam Narrative: General:The patient appears well and in no apparent distress.Patient is resting comfortably BMI 74.2. Skin:Warm, dry, no pallor noted.There is no rash noted. Head:Normocephalic, atraumatic Eye: Normal conjunctiva, no drainage Ears, Nose, Mouth, and Throat: oral mucosa is moist. Nares patent. Cardiovascular:Regular Rate and Rhythm Respiratory:Patient is in no distress, breath sounds are quite distant due to body habitus, diminished breath sounds. GI: Obese and not apparently tender Musculoskeletal: No joint swelling, leg edema + Neurological:A&Ox3, normal speech Psychiatric:Cooperative Constitutional Vital Signs, click to edit/add: Last Vital Signs Temp 98.6 F 03/11/25 13:10 Pulse 62 03/11/25 14:30 Resp 29 H 03/11/25 14:30 BP 155/75 H 03/11/25 14:30 Pulse Ox 97 03/11/25 14:30 O2 Del Method Nasal Cannula 03/11/25 13:10 O2 Flow Rate 3 03/11/25 13:10 Results Labs Labs: Short CBC 03/11/25 Range/Units 13:28 WBC 10.1 (4.0-11.0) 10^3/uL Hgb 13.6 L (14.0-18.0) g/dL Hct 45.0 (42.0-54.0) % Plt Count 231 (150-450) 10^3/uL BMP 03/11/25 13:28 Sodium 140 Potassium 5.4 H Chloride 101 Carbon Dioxide 27.5 BUN 71.0 H Creatinine 2.15 H Glucose 145 H Calcium 8.6 Assessment and Plan Assessment and Plan (1) Acute respiratory failure with hypoxia: (2) Acute kidney injury superimposed on CKD: (3) Acute on chronic diastolic CHF (congestive heart failure): (4) JACQUE (obstructive sleep apnea): (5) Obesity hypoventilation syndrome: Plan Acute hypoxic respiratory failure due to acute on chronic diastolic CHF exacerbation JACQUE, OHS -Healthy heart, sodium restriction -Start IV Lasix for diuresis as directed -Most recent Echo 01/21> showed EF 55%, RV appears mildly dilated with normal systolic fuynction -Monitor I/os RAMON on CKD likely due to CHF Mild Hyperkalemia -No obvious signs of hyperkalemia related EKG changes -IV diuresis -Monitor kidney function and K level -Repeat labs in am DVT ppx: Heparin Diet: healthy heart Discussed with pt at bedside, all questions asnwered
[2025-03-11] MEDS: FUROSEMIDE 40 MG/4 ML VIAL IVP (15:15)
--- OUTSIDE RECORDS SUMMARY | 2025-03-11 16:46 | XMS_ITS | CCD ---
Author Organization [facility] Care Team Providers Care Director Of Technology Name Role Phone HOUSE, DR GLEZ Primary Care Unavailable HOUSE, DR GLEZ Admitting Unavailable HOUSE, DR GLEZ Attending Unavailable HOUSE, DR LGEZ Consulting Unavailable ZIEBKATTY, DR EFRA Bradshaw Consulting [...] Unavailable Yuhas Merritt BEST Primary Care Provider Yuyosis Merritt BEST Primary Care Provider MERRITT THACKER Attending Unavailable YUHAS, MERRITT Eng [...] Agents (1 source) topiramate Drug Allergy 3 [facility] Repository (6 sources) topiramate; 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: [TOPIRAMATE] Drug Allergy 4 [facility] Repository (5 sources) Topiramate Propensity to adverse reactions 3 [facility] (15 sources) topiramate Drug Allergy 4 Headache, Other (See Comments) [facility] Medications Current Medications Medication Drug Class(es) Dates Sig (Normalized) Sig (Original) [id number] actuat albuterol 0.09 mg/actuat metered dose [...] systolic and diastolic CHF (congestive heart failure) ([facility]) Chew 1 tablet (81 mg total) and swallow in the morning. 90 tablet 1 01/16/2024 Active atorvastatin 40 mg oral tablet (20 sources) HMG-CoA Reductase Inhibitor Start: 01-09-2024 End: 06-05-2024 take 1 tablet by mouth once daily atorvastatin (LIPITOR) 40 mg tablet Indications: Type 2 diabetes mellitus without complication, without long-term current use of insulin ([facility]) Take 1 tablet (40 mg total) by [...] systolic and diastolic CHF (congestive heart failure) ([facility]) Take 1 tablet (12.5 mg total) by [...] systolic and diastolic CHF (congestive heart failure) ([facility]) Take 1 tablet (10 mg total) by mouth in the morning. 120 tablet 2 06/07/2024 Active Start: 02-21-2024 End: 06-05-2024 take 1 tablet by mouth in the morning dapagliflozin propanediol (FARXIGA) 10 mg tablet Indications: Chronic combined systolic and diastolic CHF (congestive heart failure) ([facility]) Take 1 tablet (10 mg total) by [...] systolic and diastolic CHF (congestive heart failure) ([facility]) Take 1 tablet (40 mg total) by [...] systolic and diastolic CHF (congestive heart failure) ([facility]) Take 1 tablet (50 mg total) by mouth in the morning. 90 tablet 1 06/05/2024 Active magnesium oxide 250 mg oral tablet (8 sources) St ar t: 24 take 1 tablet by mouth in the morning magnesium oxide 250 mg tablet Indications: Chronic combined systolic and diastolic CHF (congestive heart failure) ([facility]) Take 1 tablet (250 mg total) by mouth in the morning. 90 tablet 1 01/16/2024 Active metFORMIN hydrochloride 1000 mg oral tablet (20 sources) Biguanide St ar t: En d: 25 take 1 tablet by mouth twice daily at bedtime metFORMIN (GLUCOPHAGE) 1000 mg tablet Indications: Type 2 diabetes mellitus without complication, without long-term current use of insulin ([facility]) TAKE 1 TABLET BY MOUTH TWICE DAILY [...] systolic and diastolic CHF (congestive heart failure) ([facility]) Take 1 tablet (25 mg total) by [...] complication, without long-term current use of insulin ([facility]) Take 7 mg by mouth in the [...] ; 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: [Stage 3b chronic kidney disease ([facility])] Onset: 03-10-2023 06-05-2024 Chronic Chronic kidney disease (2 sources) Chronic kidney disease; 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: [Chronic kidney disease, stage 3b] Onset: 03-10-2023 Congestive heart failure; nonhypertensive (20 sources) Chronic combined systolic and diastolic heart failure; 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: [Chronic combined systolic (congestive) and diastolic (congestive) heart failure] Onset: 01-02-2024 Resolved: 06-05-2024 06-05-2024 Chronic Coronary atherosclerosis and other heart disease (4 sources) Atherosclerotic heart disease of [place] coronary artery without angina pectoris; 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: [Old [...] 07-13-2021 Episodic Other aftercare (1 source) Other detention (current) drug therapy; 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: [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] Onset: 11-27-2019 Episodic Other aftercare (1 source) 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; 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: [MCFP CURRNT [...] 01/21/2025 02:02 PM Modules accepted: Orders Normal [facility] Office Visiton 01-21-2025 Follow-up visit [id number] Toni Garcia 1965 M Date Provider Department Center 01/21/2025 [id number], ADAM SHANE [facility] Family History Problem Relation Age of Onset Coronary artery disease Mother Diabetes Father Family Status - Relation Status Age at Mother Father Level of Service:32112 MO OFFICE/OUTPATIENT ESTABLISHED MOD MDM 30 MIN [facility] COMPREHENSIVE METABOLIC PANE Marcus 09-03-2024 Albumin [Mass/Vol] 4.1 g/dL Normal 3.2-5.3 [facility] Comment on above: Performed By: #### C RACHEAL, 83238-0 #### [facility] ([id number]) [address] [place] [address], [address] [place] [address] ALP [Catalytic activity/Vol] 126 U/L Normal 39-130 [facility] Comment on above: Performed By: #### Dennis SPRINGER, 68932-1 #### [facility] ([id number]) [address] [place] [address], [address] [place] [address] ALT [Catalytic activity/Vol] 17 U/L Normal 0-40 [facility] Comment on above: Performed By: #### Dennis SPRINGER, 54850-1 #### [facility] ([id number]) [address], [address] [place] [address] Anion gap [Moles/Vol] 9 mmol/L Normal 5-15 [facility] Comment on above: Performed By: #### Dennis SPRINGER 58734-3 #### [facility] ([id number]) [address], [address] [place] [address] AST [Catalytic activity/Vol] 15 U/L Normal 0-41 [facility] Comment on above: Performed By: #### Dennis SPRINGER, 12283-0 #### [facility] ([id number]) [address], [address] [place] [address] Bilirubin [Mass/Vol] 0.6 mg/dL Normal 0.3-1.2 [facility] Comment on above: Performed By: #### Dennis SPRINGER, 21627-0 #### [facility] ([id number]) [address], [address] [place] [address] Calcium [Mass/Vol] 9.4 mg/dL Normal 8.5-10.5 [facility] Comment on above: Performed By: #### Dennis SPRINGER 98561-2 #### [facility] ([id number]) [address], [address] [place] [address] Chloride [Moles/Vol] 101 mmol/L Normal 98-109 [facility] Comment on above: Performed By: #### Dennis SPRINGER 90088-5 #### [facility] ([id number]) [address], [address] [place] [address] CO2 [Moles/Vol] 29 mmol/L Normal 22-32 [facility] Comment on above: Performed By: #### Dennis SPRINGER 86967-8 #### [facility] ([id number]) [address], [address] [place] [address] Creatinine [Mass/Vol] 1.11 mg/dL Normal 0.60-1.30 [facility] Comment on above: Result Comment: METH OD TRACEABLE TO IDMS STANDARD Performed By: #### C RACHEAL, 79204-2 #### [facility] ([id number]) [address], [address] [place] [address] GFR/1.73 sq M.predicted among non-blacks MDRD (S/P/Bld) [Vol rate/Area] 76 mL/min/{1.73_m2} Normal >59 [facility] Comment on above: Result Comment: Reported eGFR is based on the CKD-EPI 2020 equation that does not use a race coefficient. Performed By: #### C RACHEAL 15019-4 #### [facility] ([id number]) [address], [address] [place] [address] Glucose [Mass/Vol] 155 mg/dL High 65-99 [facility] Comment on above: Performed By: #### Dennis SPRINGER 77298-1 #### [facility] ([id number]) [address] [address] [place] [address] Potassium [Moles/Vol] 4.9 mmol/L Normal 3.5-5.0 [facility] Comment on above: Performed By: #### C RACHEAL, 11584-7 #### [facility] ([id number]) [address], [address] [place] [address] Protein [Mass/Vol] 7.3 g/dL Normal 6.0-8.0 [facility] Comment on above: Performed By: #### Dennis SPRINGER, 23650-8 #### [facility] ([id number]) [address] [address] [place] [address] Sodium [Moles/Vol] 139 mmol/L Normal 134-146 [facility] Comment on above: Performed By: #### C RACHEAL, 47621-9 #### [facility] ([id number]) [address] [facility] [place] [address] Urea nitrogen [Mass/Vol] 26 mg/dL High 5-23 [facility] Comment on above: Performed By: #### C RACHEAL, 01919-8 #### [facility] ([id number]) [address], [address] [place] [address] Comprehensive metabolic pane marcus 09-03-2024 Albumin [Mass/Vol] 4.1 g/dL 3.2 - 5.3 g/dL [facility] ALP [Catalytic activity/Vol] 126 U/L 39 - 130 U/L [facility] ALT No additional P-5'-P [Catalytic activity/Vol] 17 U/L 0 - 40 U/L [facility] Anion gap [Moles/Vol] 9 mmol/L 5 - 15 mmol/L [facility] AST [Catalytic activity/Vol] 15 U/L 0 - 41 U/L [facility] Bilirubin [Mass/Vol] 0.6 mg/dL 0.3 - 1 .2 mg/dL [facility] Calcium [Mass/Vol] 9.4 mg/dL 8.5 - 10. 5 mg/dL [facility] Chloride [Moles/Vol] 101 mmol/L 98 - 10 9 mmol/L [facility] CO2 [Moles/Vol] 29 mmol/L 22 - 32 mmol/L [facility] Creatinine [Mass/Vol] 1.11 mg/dL 0.60 - 1.30 mg/dL [facility] Comment on above: METHOD TRACEABLE TO IDIL STANDARD eGFR (CKD-EPI)non-race dependent 76 - PINF [facility] Comment on above: Reported eGFR is based on the CKD-EPI 2020 equation that does not use a race coefficient. Glucose [Mass/Vol] 155 mg/dL High 65 - 99 mg/dL [facility] Interpretation and review of laboratory results Abnormal [facility] Potassium [Moles/Vol] 4.9 mmol/L 3.5 - 5.0 mmol/L [facility] Protein [Mass/Vol] 7.3 g/dL 6.0 - 8.0 g/dL [facility] Sodium [Moles/Vol] 139 mmol/L 134 - 146 mmol/L [facility] Urea nitrogen [Mass/Vol] 26 mg/dL High 5 - 23 mg/dL [facility] HGB A1C (GLYCO-HGB)on 2024 Glucose [Mass/Vol] 151 mg/dL Normal [facility] Comment on above: Performed By: #### Dennis SPRINGER, 60975-5 #### [facility] ([id number]) [address] [facility] [address] [place] [address] HbA1c (Bld) [Mass fraction] 6.9 % High 4.4-5.6 [facility] Comment on above: Result Comment: NOTE ADA Guidelines Result HgbA1c Normal : less than 5.7 % Prediabetes : 5.7 % to 6.4 % Diabetes : > 6.4 % Use with caution in patients with abnormal hemoglobin variants as the half-life of red blood cells and in vivo glycation rates are affected. Performed By: #### Dennis SPRINGER, 05019-5 #### [facility] ([id number]) [address] [facility] [facility] [address] [place] [address] Hemoglobin A1con 09-03-2024 Average glucose Estimated from glycated hemoglobin (Bld) [Mass/Vol] 151 mg/dL [facility] HbA1c (Bld) [Mass fraction] 6.9 % High 4.4 - 5.6 % [facility] Comment on above: NOTE ADA Guidelines Result HgbA1c Normal : less than 5.7 % Prediabetes : 5.7 % to 6.4 % Diabetes : > 6.4 % Use with caution in patients with abnormal hemoglobin variants as the half-life of red blood cells and in vivo glycation rates are affected. Interpretation and review of laboratory results Abnormal [facility] COMPREHENSIVE METABOLIC PANE Marcus 06-05-2024 Albumin [Mass/Vol] 3.6 g/dL Normal 3.2-5.3 [facility] Comment on above: Performed By: #### WILLY Collins MP #### [facility] ([id number]) [address], [address] [place] [address] ALP [Catalytic activity/Vol] 117 U/L Normal 39-130 [facility] Comment on above: Performed By: #### C WILLY SPRINGER #### [facility] ([id number]) [address], [address] [place] [address] ALT [Catalytic activity/Vol] 16 U/L Normal 0-40 [facility] Comment on above: Performed By: #### WILLY Collins MP #### [facility] ([id number]) [address], [address] [place] [address] Anion gap [Moles/Vol] 7 mmol/L Normal 5-15 [facility] Comment on above: Performed By: #### WILLY Collins MP #### [facility] ([id number]) [address], [address] [place] [address] AST [Catalytic activity/Vol] 14 U/L Normal 0-41 [facility] Comment on above: Performed By: #### WILLY Collins MP #### [facility] ([id number]) [address], [address] [place] [address] Bilirubin [Mass/Vol] 0.6 mg/dL Normal 0.3-1.2 [facility] Comment on above: Performed By: #### WILLY Collins MP #### [facility] ([id number]) [address], [address] [place] [address] Calcium [Mass/Vol] 8.8 mg/dL Normal 8.5-10.5 [facility] Comment on above: Performed By: #### C MP, HA1C #### [facility] ([id number]) [address], [address] [place] [address] Chloride [Moles/Vol] 107 mmol/L Normal 98-109 [facility] Comment on above: Performed By: #### WILLY Collins MP #### [facility] ([id number]) [address], [address] [place] [address] CO2 [Moles/Vol] 28 mmol/L Normal 22-32 [facility] Comment on above: Performed By: #### WILLY Collins MP #### [facility] ([id number]) [address], [address] [place] [address] Creatinine [Mass/Vol] 1.11 mg/dL Normal 0.60-1.30 [facility] Comment on above: Result Comment: METH OD TRACEABLE TO IDMS STANDARD Performed By: #### WILLY Collins MP #### [facility] ([id number]) [address], [address] [place] [address] GFR/1.73 sq M.predicted among non-blacks MDRD (S/P/Bld) [Vol rate/Area] 76 mL/min/{1.73_m2} Normal >59 [facility] Comment on above: Result Comment: Reported eGFR is based on the CKD-EPI 2020 equation that does not use a race coefficient. Performed By: #### WILLY Collins MP #### [facility] ([id number]) [address], [address] [place] [address] Glucose [Mass/Vol] 156 mg/dL High 65-99 [facility] Comment on above: Performed By: #### WILLY Collins MP #### [facility] ([id number]) [address], [address] [place] [address] Potassium [Moles/Vol] 4.7 mmol/L Normal 3.5-5.0 [facility] Comment on above: Performed By: #### C RACHEAL, WILLY #### [facility] ([id number]) [address], [address] [place] [address] Protein [Mass/Vol] 6.8 g/dL Normal 6.0-8.0 [facility] Comment on above: Performed By: #### C RACHEAL, WILLY #### [facility] ([id number]) [address], [address] [place] [address] Sodium [Moles/Vol] 142 mmol/L Normal 134-146 [facility] Comment on above: Performed By: #### C RACHEAL, YOSI1C #### [facility] ([id number]) [address], [address] [place] [address] Urea nitrogen [Mass/Vol] 24 mg/dL High 5-23 [facility] Comment on above: Performed By: #### C WILLY SPRINGER #### [facility] ([id number]) [address], [address] [place] [address] Comprehensive metabolic pane marcus 06-05-2024 Albumin [Mass/Vol] 3.6 g/dL 3.2 - 5.3 g/dL [facility] ALP [Catalytic activity/Vol] 117 U/L 39 - 130 U/L [facility] ALT No additional P-5'-P [Catalytic activity/Vol] 16 U/L 0 - 40 U/L [facility] Anion gap [Moles/Vol] 7 mmol/L 5 - 15 mmol/L [facility] AST [Catalytic activity/Vol] 14 U/L 0 - 41 U/L [facility] Bilirubin [Mass/Vol] 0.6 mg/dL 0.3 - 1 .2 mg/dL [facility] Calcium [Mass/Vol] 8.8 mg/dL 8.5 - 10. 5 mg/dL [facility] Chloride [Moles/Vol] 107 mmol/L 98 - 10 9 mmol/L [facility] CO2 [Moles/Vol] 28 mmol/L 22 - 32 mmol/L [facility] Creatinine [Mass/Vol] 1.11 mg/dL 0.60 - 1.30 mg/dL [facility] Comment on above: METHOD TRACEABLE TO [facility] STANDARD eGFR (CKD-EPI)non-race dependent 76 - PINF [facility] Comment on above: Reported eGFR is based on the CKD-EPI 2020 equation that does not use a race coefficient. Glucose [Mass/Vol] 156 mg/dL High 65 - 99 mg/dL [facility] Interpretation and review of laboratory results Abnormal [facility] Potassium [Moles/Vol] 4.7 mmol/L 3.5 - 5.0 mmol/L [facility] Protein [Mass/Vol] 6.8 g/dL 6.0 - 8.0 g/dL [facility] Sodium [Moles/Vol] 142 mmol/L 134 - 146 mmol/L [facility] Urea nitrogen [Mass/Vol] 24 mg/dL High 5 - 23 mg/dL [facility] HGB A1C (GLYCO-HGB)on 2024 Glucose [Mass/Vol] 143 mg/dL Normal [facility] Comment on above: Performed By: #### Dennis SPRINGER, 56300-1 #### [facility] ([id number]) [address] [facility] [place] [address] HbA1c (Bld) [Mass fraction] 6.6 % High 4.4-5.6 [facility] Comment on above: Result Comment: NOTE ADA Guidelines Result HgbA1c Normal : less than 5.7 % Prediabetes : 5.7 % to 6.4 % Diabetes : > 6.4 % Use with caution in patients with abnormal hemoglobin variants as the half-life of red blood cells and in vivo glycation rates are affected. Performed By: #### Dennis SPRINGER, 93230-1 #### [facility] ([id number]) [address] [facility], [address] [place] [address] Prostate specific Ag [Mass/V ol]on 06-05-2024 [facility] PSA SCREEN 0.27 ng/mL Normal 0.00-4.00 [facility] Comment on above: Result Comment: The method used for this test is Timmy [place] DXI chemiluminescent immunoassay. Values obtained by different assay methods cannot be used interchangeably. Performed By: #### C , 48067-5 #### [facility] ([id number]) [address] [facility], [address] [place] [address] Prostatic specific antigen s creenon 06-05-2024 Prostate specific Ag [Mass/Vol] 0.27 ng/mL 0.00 - 4.00 ng/mL [facility] Comment on above: The method used for this test is Timmy [place] DXI chemiluminescent immunoassay. Values obtained by different [...] discussed. Consent was given by the patient. [facility] MICROALBUMIN - ALBUMIN:CREAT ININE URINE RATIOon 01-17-2024 ALB/CREAT RATIO 16.6 mg/g creat Normal 0.0-30.0 [facility] Comment on above: Performed By: #### M ALBU #### [facility] ([id number]) [address], [address] [place] [address] Albumin DL <= 20 mg/L (U) [Mass/Vol] 2.2 mg/dL High 0.0-1.9 [facility] Comment on above: Performed By: #### M ALBU #### [facility] ([id number]) [address] [facility] [place] [address] URINE CREAT 132.81 mg/dL Normal [facility] Comment on above: Performed By: #### M ALBU #### [facility] ([id number]) [address], [address] [place] [address] CBC AND AUTO DIFFon 01-16-20 24 ABSOLUTE BASOPHIL 0.0 X10E9/L Normal 0.0-0.2 [facility] Comment on above: Performed By: #### C BCA, CMP, , , HA1C #### [facility] ([id number]) [address], [address] [place] [address] ABSOLUTE NEUTROPHIL 5.2 X10E9/L Normal 1.5-6.6 [facility] Comment on above: Performed By: #### C BCA, CMP, , , HA1C #### [facility] ([id number]) [address], [address] [place] [address] Basophils/100 WBC (Bld) 0.5 % Normal [facility] Comment on above: Performed By: #### Dennis BCA, CMP, , , HA1C #### [facility] ([id number]) [address], [address] [place] [address] Eosinophils (Bld) [#/Vol] 0.2 10*3/uL Normal 0.0-0.4 [facility] Comment on above: Performed By: #### C BCA, CMP, , , HA1C #### [facility] ([id number]) [address], [address] [place] [address] Eosinophils/100 WBC (Bld) 2.6 % Normal [facility] Comment on above: Performed By: #### C BCA, CMP, , , HA1C #### [facility] ([id number]) [address], [address] [place] [address] Erythrocyte distribution width (RBC) [Ratio] 16.5 % High 11.5-15.0 [facility] Comment on above: Performed By: #### C SUSI, CMP, , , HA1C #### [facility] ([id number]) [address], [address] [place] [address] Hematocrit (Bld) [Volume fraction] 37.1 % Low 39-49 [facility] Comment on above: Performed By: #### C BCA, CMP, , , HA1C #### [facility] ([id number]) [address], [address] [place] [address] Hemoglobin (Bld) [Mass/Vol] 11.7 g/dL Low 13.0-17.0 [facility] Comment on above: Performed By: #### C SUSI, CMP, , , HA1C #### [facility] ([id number]) [address], [address] [place] [address] Lymphocytes (Bld) [#/Vol] 1.3 10*3/uL Normal 1.0-3.5 [facility] Comment on above: Performed By: #### C SUSI, CMP, , , HA1C #### [facility] ([id number]) [address] [address] [place] [address] Lymphocytes/100 WBC (Bld) 18.5 % Normal [facility] Comment on above: Performed By: #### C BCA, CMP, , , HA1C #### [facility] ([id number]) [address], [address] [place] [address] MCH (RBC) [Entitic mass] 25.5 pg Low 27-34 [facility] Comment on above: Performed By: #### C SUSI, CMP, , , HA1C #### [facility] ([id number]) [address], [address] [place] [address] MCHC (RBC) [Mass/Vol] 31.6 g/dL Low 32-36 [facility] Comment on above: Performed By: #### C SUSI, CMP, , , HA1C #### [facility] ([id number]) [address], [address] [place] [address] MCV (RBC) [Entitic vol] 81 fL Normal 80-100 [facility] Comment on above: Performed By: #### C SUSI, CMP, , , HA1C #### [facility] ([id number]) [address], [address] [place] [address] Monocytes (Bld) [#/Vol] 0.3 10*3/uL Normal 0-0.9 [facility] Comment on above: Performed By: #### Dennis BCA, CMP, , , HA1C #### [facility] ([id number]) [address], [address] [place] [address] Monocytes/100 WBC (Bld) 4.9 % Normal [facility] Comment on above: Performed By: #### Dennis BCA, CMP, , , HA1C #### [facility] ([id number]) [address], [address] [place] [address] Neutrophils/100 WBC (Bld) 73.5 % Normal [facility] Comment on above: Performed By: #### C BCA, CMP, , , HA1C #### [facility] ([id number]) [address], [address] [place] [address] Platelet mean volume (Bld) [Entitic vol] 7.9 fL Normal 7-12 [facility] Comment on above: Performed By: #### Dennis BCA, CMP, , , HA1C #### [facility] ([id number]) [address], [address] [place] [address] Platelets (Bld) [#/Vol] 240 10*3/uL Normal 150-450 [facility] Comment on above: Performed By: #### C BCA, CMP, 09842-9, , HA1C #### [facility] ([id number]) [address], [address] [place] [address] RBC COUNT 4.61 X10E12/L Normal 4.10-5.70 [facility] Comment on above: Performed By: #### C BCA, CMP, 20546-8, , HA1C #### [facility] ([id number]) [address], [address] [place] [address] WBC (Bld) [#/Vol] 7.1 10*3/uL Normal 4.0-11.0 [facility] Comment on above: Performed By: #### C BCA, CMP, 41224-5, , HA1C #### [facility] ([id number]) [address], [address] [place] [address] COMPREHENSIVE METABOLIC PANE Marcus 01-16-2024 Albumin [Mass/Vol] 3.6 g/dL Normal 3.2-5.3 [facility] Comment on above: Performed By: #### C BCA, CMP, 04894-6, , HA1C #### [facility] ([id number]) [address], [address] [place] [address] ALP [Catalytic activity/Vol] 121 U/L Normal 39-130 [facility] Comment on above: Performed By: #### C BCA, CMP, 00889-7, , HA1C #### [facility] ([id number]) [address], [address] [place] [address] ALT [Catalytic activity/Vol] 26 U/L Normal 0-40 [facility] Comment on above: Performed By: #### C BCA, CMP, , , HA1C #### [facility] ([id number]) [address], [address] [place] [address] Anion gap [Moles/Vol] 9 mmol/L Normal 5-15 [facility] Comment on above: Performed By: #### C BCA, CMP, , , HA1C #### [facility] ([id number]) [address], [address] [place] [address] AST [Catalytic activity/Vol] 20 U/L Normal 0-41 [facility] Comment on above: Performed By: #### C BCA, CMP, , , HA1C #### [facility] ([id number]) [address], [address] [place] [address] Bilirubin [Mass/Vol] 0.7 mg/dL Normal 0.3-1.2 [facility] Comment on above: Performed By: #### C BCA, CMP, , , HA1C #### [facility] ([id number]) [address], [address] [place] [address] Calcium [Mass/Vol] 9.2 mg/dL Normal 8.5-10.5 [facility] Comment on above: Performed By: #### C BCA, CMP, , , HA1C #### [facility] ([id number]) [address], [address] [place] [address] Chloride [Moles/Vol] 106 mmol/L Normal 98-109 [facility] Comment on above: Performed By: #### C BCA, CMP, , , HA1C #### [facility] ([id number]) [address], [address] [place] [address] CO2 [Moles/Vol] 28 mmol/L Normal 22-32 [facility] Comment on above: Performed By: #### C TEMITOPE GOLDMAN, , , HA1C #### [facility] ([id number]) [address], [address] [place] [address] Creatinine [Mass/Vol] 1.19 mg/dL Normal 0.60-1.30 [facility] Comment on above: Result Comment: METH OD TRACEABLE TO IDMS STANDARD Performed By: #### C TEMITOPE GOLDMAN, , , HA1C #### [facility] ([id number]) [address], [facility] [address] [place] [address] GFR/1.73 sq M.predicted among non-blacks MDRD (S/P/Bld) [Vol rate/Area] 70 mL/min/{1.73_m2} Normal >59 [facility] Comment on above: Result Comment: Reported eGFR is based on the CKD-EPI 2020 equation that does not use a race coefficient. Performed By: #### C TEMITOPE GOLDMAN, , , HA1C #### [facility] ([id number]) [address], [address] [place] [address] Glucose [Mass/Vol] 130 mg/dL High 65-99 [facility] Comment on above: Performed By: #### C TEMITOPE GOLDMAN, , , HA1C #### [facility] ([id number]) [address], [facility] [address] [place] [address] Potassium [Moles/Vol] 4.8 mmol/L Normal 3.5-5.0 [facility] Comment on above: Performed By: #### C SUSI, CMP, , , HA1C #### [facility] ([id number]) [address], [address] [place] [address] Protein [Mass/Vol] 7.0 g/dL Normal 6.0-8.0 [facility] Comment on above: Performed By: #### C SUSI, CMP, , , HA1C #### [facility] ([id number]) [address], [address] [place] [address] Sodium [Moles/Vol] 143 mmol/L Normal 134-146 [facility] Comment on above: Performed By: #### C BCA, CMP, , , HA1C #### [facility] ([id number]) [address], [address] [place] [address] Urea nitrogen [Mass/Vol] 31 mg/dL High 5-23 [facility] Comment on above: Performed By: #### C SUSI, CMP, , , HA1C #### [facility] ([id number]) [address], [address] [place] [address] HGB A1C (GLYCO-HGB)on 2023 Glucose [Mass/Vol] 157 mg/dL Normal [facility] Comment on above: Performed By: #### C SUSI, TEMITOPE, , , HA1C #### [facility] ([id number]) [address], [address] [place] [address] HbA1c (Bld) [Mass fraction] 7.1 % High 4.4-5.6 [facility] Comment on above: Result Comment: NOTE ADA Guidelines Result HgbA1c Normal : less than 5.7 % Prediabetes : 5.7 % to 6.4 % Diabetes : > 6.4 % Use with caution in patients with abnormal hemoglobin variants as the half-life of red blood cells and in vivo glycation rates are affected. Performed By: #### C BCA, CMP, , , HA1C #### [facility] ([id number]) [address], [address] [place] [address] Lipid 1996 panelon 4 Cholesterol [Mass/Vol] 77 mg/dL Low 150-200 [facility] Comment on above: Performed By: #### C BCA, CMP, 14250-3, 48283-0, HA1C #### [facility] ([id number]) [address], [address] [place] [address] Cholesterol in HDL [Mass/Vol] 27 mg/dL Low >39 [facility] Comment on above: Result Comment: HDL <40 mg/dL - High Risk HDL > or = 40mg/dL- Desirable HDL >60 mg/dL - Negative Risk Performed By: #### C BCA, CMP, 93106-1, , HA1C #### [facility] ([id number]) [address], [address] [place] [address] Cholesterol in LDL [Mass/Vol] 35 mg/dL Normal <130 [facility] Comment on above: Result Comment: LDL <100 mg/dL - Desirable LDL >160 mg/dL - High Risk Performed By: #### C BCA, CMP, 54621-6, , HA1C #### [facility] ([id number]) [address], [address] [place] [address] Cholesterol in VLDL [Mass/Vol] 15 mg/dL Normal 0-30 [facility] Comment on above: Performed By: #### C BCA, CMP, 82170-2, , HA1C #### [facility] ([id number]) [address], [address] [place] [address] CHOLESTEROL:HDL 2.9 Normal 1.0-5.0 [facility] Comment on above: Performed By: #### C SUSI, CMP, 23900-5, , HA1C #### [facility] ([id number]) [address], [address] [place] [address] Triglyceride [Mass/Vol] 75 mg/dL Normal 27-150 [facility] Comment on above: Performed By: #### C BCA, CMP, 33814-5, , HA1C #### [facility] ([id number]) [address], [address] [place] [address] MAGNESIUMon 01-16-2024 Magnesium [Mass/Vol] 1.9 mg/dL Normal 1.8-2.6 [facility] Comment on above: Performed By: #### C SUSI, CMP, 96702-5, , HA1C #### [facility] ([id number]) [address], [address] [place] [address] COMPREHENSIVE METABOLIC PANE Marcus 09-07-2023 Albumin [Mass/Vol] 3.8 g/dL Normal 3.2-5.3 [facility] Comment on above: Performed By: #### Dennis SPRINGER, 67787-9 #### [facility] ([id number]) [address], [address] [place] [address] ALP [Catalytic activity/Vol] 101 U/L Normal 39-130 [facility] Comment on above: Performed By: #### Dennis SPRINGER, 79016-5 #### [facility] ([id number]) [address], [address] [place] [address] ALT [Catalytic activity/Vol] 14 U/L Normal 0-40 [facility] Comment on above: Performed By: #### Dennis SPRINGER, 70352-4 #### [facility] ([id number]) [address] [place] [address] Anion gap [Moles/Vol] 8 mmol/L Normal 5-15 [facility] Comment on above: Performed By: #### Dennis SPRINGER, 04600-2 #### [facility] ([id number]) [address] [place] [address] AST [Catalytic activity/Vol] 14 U/L Normal 0-41 [facility] Comment on above: Performed By: #### Dennis SPRINGER, 18336-4 #### [facility] ([id number]) [address], [address] [place] [address] Bilirubin [Mass/Vol] 0.6 mg/dL Normal 0.3-1.2 [facility] Comment on above: Performed By: #### Dennis SPRINGER 57620-3 #### [facility] ([id number]) [address], [address] [place] [address] Calcium [Mass/Vol] 8.8 mg/dL Normal 8.5-10.5 [facility] Comment on above: Performed By: #### Dennis SPRINGER 95842-9 #### [facility] ([id number]) [address] [place] [address] Chloride [Moles/Vol] 100 mmol/L Normal 98-109 [facility] Comment on above: Performed By: #### Dennis SPRINGER 99015-1 #### [facility] ([id number]) [address], [address] [place] [address] CO2 [Moles/Vol] 31 mmol/L Normal 22-32 [facility] Comment on above: Performed By: #### Dennis SPRINGER, 64340-2 #### [facility] ([id number]) [address], [address] [place] [address] Creatinine [Mass/Vol] 1.29 mg/dL Normal 0.60-1.30 [facility] Comment on above: Result Comment: METH OD TRACEABLE TO IDMS STANDARD Performed By: #### Dennis SPRINGER, 52873-0 #### [facility] ([id number]) [address], [address] [place] [address] GFR/1.73 sq M.predicted among non-blacks MDRD (S/P/Bld) [Vol rate/Area] 64 mL/min/{1.73_m2} Normal >59 [facility] Comment on above: Result Comment: Reported eGFR is based on the CKD-EPI 2020 equation that does not use a race coefficient. Performed By: #### Dennis SPRINGER, 14189-6 #### [facility] ([id number]) [address], [address] [place] [address] Glucose [Mass/Vol] 119 mg/dL High 65-99 [facility] Comment on above: Performed By: #### Dennis SPRINGER, 85439-8 #### [facility] ([id number]) [address], [address] [place] [address] Potassium [Moles/Vol] 4.4 mmol/L Normal 3.5-5.0 [facility] Comment on above: Performed By: #### Dennis SPRINGER, 02191-7 #### [facility] ([id number]) [address], [address] [place] [address] Protein [Mass/Vol] 7.2 g/dL Normal 6.0-8.0 [facility] Comment on above: Performed By: #### Dennis SPRINGER, 69396-3 #### [facility] ([id number]) [address], [address] [place] [address] Sodium [Moles/Vol] 139 mmol/L Normal 134-146 [facility] Comment on above: Performed By: #### Dennis SPRINGER, 73040-0 #### [facility] ([id number]) [address], [address] [place] [address] Urea nitrogen [Mass/Vol] 21 mg/dL Normal 5-23 [facility] Comment on above: Performed By: #### C , 79719-1 #### [facility] ([id number]) [address] [place] [address] Comprehensive metabolic pane [facility] 09-07-2023 Albumin [Mass/Vol] 3.8 g/dL 3.2 - 5.3 g/dL [facility] ALP [Catalytic activity/Vol] 101 U/L 39 - 130 U/L [facility] ALT No additional P-5'-P [Catalytic activity/Vol] 14 U/L 0 - 40 U/L [facility] Anion gap [Moles/Vol] 8 mmol/L 5 - 15 mmol/L [facility] AST [Catalytic activity/Vol] 14 U/L 0 - 41 U/L [facility] Bilirubin [Mass/Vol] 0.6 mg/dL 0.3 - 1 .2 mg/dL [facility] Calcium [Mass/Vol] 8.8 mg/dL 8.5 - 10. 5 mg/dL [facility] Chloride [Moles/Vol] 100 mmol/L 98 - 10 9 mmol/L [facility] CO2 [Moles/Vol] 31 mmol/L 22 - 32 mmol/L [facility] Creatinine [Mass/Vol] 1.29 mg/dL 0.60 - 1.30 mg/dL [facility] Comment on above: METHOD TRACEABLE TO IDIL STANDARD eGFR (CKD-EPI)non-race dependent 64 - PINF [facility] Comment on above: Reported eGFR is based on the CKD-EPI 2020 equation that does not use a race coefficient. Glucose [Mass/Vol] 119 mg/dL High 65 - 99 mg/dL [facility] Potassium [Moles/Vol] 4.4 mmol/L 3.5 - 5.0 mmol/L [facility] Protein [Mass/Vol] 7.2 g/dL 6.0 - 8.0 g/dL [facility] Sodium [Moles/Vol] 139 mmol/L 134 - 146 mmol/L [facility] Urea nitrogen [Mass/Vol] 21 mg/dL 5 - 23 mg/dL [facility] HGB A1C (GLYCO-HGB)on 2023 Glucose [Mass/Vol] 134 mg/dL Normal [facility] Comment on above: Performed By: #### Dennis SPRINGER, 06266-9 #### [facility] ([id number]) [address], [address] [place] [address] HbA1c (Bld) [Mass fraction] 6.3 % High 4.4-5.6 [facility] Comment on above: Result Comment: NOTE ADA Guidelines Result HgbA1c Normal : less than 5.7 % Prediabetes : 5.7 % to 6.4 % Diabetes : > 6.4 % Use with caution in patients with abnormal hemoglobin variants as the half-life of red blood cells and in vivo glycation rates are affected. Performed By: #### Dennis SPRINGER, 16437-5 #### [facility] ([id number]) [address], [address] [place] [address] Lipid 1996 panelon Cholesterol [Mass/Vol] 145 mg/dL Low 150 - 200 mg/dL [facility] Cholesterol in HDL [Mass/Vol] 30 mg/dL Low 39 - PINF mg/dL [facility] Comment on above: HDL <40 mg/dL - High Risk HDL > or = 40mg/dL- Desirable HDL >60 mg/dL - Negative Risk Cholesterol in LDL [Mass/Vol] 90 mg/dL NINF - 130 mg/dL [facility] Comment on above: LDL <100 mg/dL - Desirable LDL >160 mg/dL - High Risk Cholesterol in VLDL [Mass/Vol] 25 mg/dL 0 - 30 mg/dL [facility] Cholesterol.total/Ch olesterol in HDL [Mass ratio] 4.8 {ratio} 1.0 - 5.0 [facility] Triglyceride [Mass/Vol] 123 mg/dL 27 - 150 mg/dL [facility] Cholesterol [Mass/Vol] 145 mg/dL Low 150-200 [facility] Comment on above: Performed By: #### Dennis SPRINGER, 27645-1 #### [facility] ([id number]) [address], [address] [place] [address] Cholesterol in HDL [Mass/Vol] 30 mg/dL Low >39 [facility] Comment on above: Result Comment: HDL <40 mg/dL - High Risk HDL > or = 40mg/dL- Desirable HDL >60 mg/dL - Negative Risk Performed By: #### Denins SPRINGER, 77374-3 #### [facility] ([id number]) [address], [address] [place] [address] Cholesterol in LDL [Mass/Vol] 90 mg/dL Normal <130 [facility] Comment on above: Result Comment: LDL <100 mg/dL - Desirable LDL >160 mg/dL - High Risk Performed By: #### Dennis SPRINGER, 30990-2 #### [facility] ([id number]) [address], [address] [place] [address] Cholesterol in VLDL [Mass/Vol] 25 mg/dL Normal 0-30 [facility] Comment on above: Performed By: #### Dennis SPRINGER, 13345-1 #### [facility] ([id number]) [address], [address] [place] [address] CHOLESTEROL:HDL 4.8 Normal 1.0-5.0 [facility] Comment on above: Performed By: #### C RACHEAL, 66537-4 #### [facility] ([id number]) [address], [address] [place] [address] Triglyceride [Mass/Vol] 123 mg/dL Normal 27-150 [facility] Comment on above: Performed By: #### C RACHEAL, 14111-0 #### [facility] ([id number]) [address], [address] [place] [address] No Panel Informationon 09-06 Interpretation and review of laboratory results Abnormal [facility] CBC AUTO DIFFon 10-01-2020 BASO # 0.1 103/ul Normal 0.0-0.1 [facility] Comment on above: Performed By: #### T SH, LIPID, CMP, PSAD, T4 #### [facility] [address] [place] [address] Wanda Anamaria Basophils/100 WBC (Bld) 0.8 % Normal 0.2-2.0 [facility] Comment on above: Performed By: #### T SH, LIPID, CMP, PSAD, T4 #### [facility] [address] [place], [place] [address] Wanda Anamaria EO # 0.3 103/ul Normal 0.0-0.7 [facility] Comment on above: Performed By: #### T SH, LIPID, CMP, PSAD, T4 #### [facility] [address] [place], [place] [address] Wanda Anamaria Eosinophils/100 WBC (Bld) 3.5 % Normal 0.9-7.0 [facility] Comment on above: Performed By: #### T SH, LIPID, CMP, PSAD, T4 #### [facility] [address] [place], [place] [address] Wanda Anamaria Erythrocyte distribution width (RBC) [Ratio] 15.2 % Critically high 11.0-15.0 [facility] Comment on above: Performed By: #### T SH, LIPID, CMP, PSAD, T4 #### [facility] [address] [place] [address] Wanda Anamaria Hematocrit (Bld) [Volume fraction] 42.3 % Normal 42.0-54.0 [facility] Comment on above: Performed By: #### T SH, LIPID, CMP, PSAD, T4 #### [facility] [address] [place] [address] Wanda Anamaria Hemoglobin (Bld) [Mass/Vol] 13.3 g/dL Critically low 14.0-18.0 [facility] Comment on above: Performed By: #### T SH, LIPID, CMP, PSAD, T4 #### [facility] [address] [place] [address] Wanda Anamaria IG # 0.04 10e3/ul Critically high 0.00-0.03 [facility] Comment on above: Performed By: #### T SH, LIPID, CMP, PSAD, T4 #### [facility] [address] [place] [address] Wanda Anamaria IG % 0.4 % Normal 0.0-0.5 [facility] Comment on above: Performed By: #### T SH, LIPID, CMP, PSAD, T4 #### [facility] [address] [place] [address] Wanda Anamaria LYMPH # 2.8 103/ul Normal 1.2-3.8 [facility] Comment on above: Performed By: #### T SH, LIPID, CMP, PSAD, T4 #### [facility] [address] [place] [address] Wanda Anamaria Lymphocytes/100 WBC (Bld) 30.2 % Normal 20.5-60.0 [facility] Comment on above: Performed By: #### T SH, LIPID, CMP, PSAD, T4 #### [facility] [address] [place] [address] Wanda Anamaria MANUAL DIFF REQ NO Normal [facility] Comment on above: Performed By: #### T SH, LIPID, CMP, PSAD, T4 #### [facility] [address] [place], [place] [id number] Wanda Conrad MCH (RBC) [Entitic mass] 26.4 pg Normal 25.9-34.0 [facility] Comment on above: Performed By: #### T SH, LIPID, CMP, PSAD, T4 #### [facility] [address] [place] [address] Wanda Conrad MCHC (RBC) [Mass/Vol] 31.4 g/dL Normal 29.9-35.2 [facility] Comment on above: Performed By: #### T SH, LIPID, CMP, PSAD, T4 #### [facility] [address] [place] [address] Wanda Conrad MCV (RBC) [Entitic vol] 83.9 fL Normal 80.0-94.0 [facility] Comment on above: Performed By: #### T SH, LIPID, CMP, PSAD, T4 #### [facility] [address] [place] [address] Wandavanda Antoineen MONO # 0.6 103/ul Normal 0.3-0.8 [facility] Comment on above: Performed By: #### T SH, LIPID, CMP, PSAD, T4 #### [facility] [address] [place] [address] Wanda Anamaria Monocytes/100 WBC (Bld) 6.2 % Normal 1.7-12.0 [facility] Comment on above: Performed By: #### T SH, LIPID, CMP, PSAD, T4 #### [facility] [address] [place] [address] Wandavanda Conrad NEUT # 5.4 103/ul Normal 1.4-6.5 [facility] Comment on above: Performed By: #### T SH, LIPID, CMP, PSAD, T4 #### [facility] [address] [place] [address] Wanda Anamaria Neutrophils/100 WBC (Bld) 58.9 % Normal 43.0-75.0 [facility] Comment on above: Performed By: #### T SH, LIPID, CMP, PSAD, T4 #### [facility] [address] [place] [address] Wanda Conrad Platelet mean volume (Bld) [Entitic vol] 10.5 fL Normal 9.5-13.5 [facility] Comment on above: Performed By: #### T SH, LIPID, CMP, PSAD, T4 #### [facility] [address] [address] Wandavanda Conrad PLT 252 103/ul Normal 150-450 [facility] Comment on above: Performed By: #### T SH, LIPID, CMP, PSAD, T4 #### [facility] [address] [address] Wanda Anamaria RBC 5.04 106/ul Normal 4.70-6.10 [facility] Comment on above: Performed By: #### T SH, LIPID, CMP, PSAD, T4 #### [facility] [address] [address] Wandavanda Conrad WBC 9.1 103/ul Normal 4.0-11.0 [facility] Comment on above: Performed By: #### T SH, LIPID, CMP, PSAD, T4 #### [facility] [address] [address] Wanda Conrad LIPID PROFILEon 10-01-2020 CHOL-HDL RATIO NORM SEE BELOW Normal [facility] Comment on above: Result Comment: 3.3 - 4.4 LOW RISK 4.4 - 7.1 AVERAGE RISK 7.1 - 11.0 MODERATE RISK >11.0 HIGH RISK Performed By: #### T SH, LIPID, CMP, PSAD, T4 #### [facility] [address] [address] Wandavanda Conrad Cholesterol [Mass/Vol] 137 mg/dL Normal <=200 [facility] Comment on above: Performed By: #### T SH, LIPID, CMP, PSAD, T4 #### [facility] [address] [address] Wanda Conrad Cholesterol in HDL [Mass/Vol] 31 mg/dL Normal [facility] Comment on above: Performed By: #### T SH, LIPID, CMP, PSAD, T4 #### [facility] [address] [address] Wanda Antoineen Cholesterol in LDL [Mass/Vol] 81.8 mg/dL Normal [facility] Comment on above: Performed By: #### T SH, LIPID, CMP, PSAD, T4 #### [facility] [address] [address] Wanda Anamaria Cholesterol.total/Ch olesterol in HDL [Mass ratio] 4.4 {ratio} Normal [facility] Comment on above: Performed By: #### T SH, LIPID, CMP, PSAD, T4 #### [facility] [address] [address] Wanda Anamaria HDL NORMAL > or = 60 mg/dl - LO W CARDIOVASCULAR RISK <40 mg/dl - HIGH CARDIOVASCULAR RISK Normal [facility] Comment on above: Performed By: #### T SH, LIPID, CMP, PSAD, T4 #### [facility] [address] [place] [address] Wandavanda Conrad LDL CALC NORMAL SEE BELOW Normal [facility] Comment on above: Result Comment: <100 mg/dl OPTIMAL 100 - 129 mg/dl NEAR OR ABOVE OPTIMAL 130 - 159 mg/dl BORDERLINE HIGH 160 - 189 mg/dl HIGH >190 mg/dl VERY HIGH Performed By: #### T SH, LIPID, CMP, PSAD, T4 #### [facility] [address] [place] [address] Wanda Anamaria Triglyceride [Mass/Vol] 121 mg/dL Normal <=150 [facility] Comment on above: Performed By: #### T SH, LIPID, CMP, PSAD, T4 #### [facility] [address] [place] [address] Wanda Anamaria VLDL CALC 24.2 mg/dL Normal [facility] Comment on above: Performed By: #### T SH, LIPID, CMP, PSAD, T4 #### [facility] [address] [address] Wanda Anamaria PROF 14(COMP METB)on 021 Albumin [Mass/Vol] 3.3 g/dL Critically low 3.5-5.0 [facility] Comment on above: Performed By: #### T SH, LIPID, CMP, PSAD, T4 #### [facility] [address] [place] [address] Wanda Anamaria Albumin/Globulin [Mass ratio] 0.7 {ratio} Normal [facility] Comment on above: Performed By: #### T SH, LIPID, CMP, PSAD, T4 #### [facility] [address] [place] [address] Wanda Anamaria ALP [Catalytic activity/Vol] 113 U/L Normal 38-126 [facility] Comment on above: Performed By: #### T SH, LIPID, CMP, PSAD, T4 #### [facility] [address] [place] [address] Wanda Anamaria ALT [Catalytic activity/Vol] 25 U/L Normal 21-72 [facility] Comment on above: Performed By: #### T SH, LIPID, CMP, PSAD, T4 #### [facility] [address] [place] [address] Wanda Anamaria Anion gap [Moles/Vol] 12.4 mmol/L Normal [facility] Comment on above: Performed By: #### T SH, LIPID, CMP, PSAD, T4 #### [facility] [address] [place] [address] Wanda Anamaria AST [Catalytic activity/Vol] 16 U/L Critically low 17-59 [facility] Comment on above: Performed By: #### T SH, LIPID, CMP, PSAD, T4 #### [facility] [address] [place] [address] Wanda Anamaria Bilirubin [Mass/Vol] 0.4 mg/dL Normal 0.2-1.3 [facility] Comment on above: Performed By: #### T SH, LIPID, CMP, PSAD, T4 #### [facility] [address] [place] [address] Wanda Anamaria Calcium [Mass/Vol] 8.8 mg/dL Normal 8.4-10.2 [facility] Comment on above: Performed By: #### T SH, LIPID, CMP, PSAD, T4 #### [facility] [address] [place], [place] [id number] Wanda Anamaria Chloride [Moles/Vol] 102 mmol/L Normal 98-107 [facility] Comment on above: Performed By: #### T SH, LIPID, CMP, PSAD, T4 #### [facility] [address] [address] Wanda Anamaria CO2 [Moles/Vol] 30.0 mmol/L Normal 22.0-30.0 [facility] Comment on above: Performed By: #### T SH, LIPID, CMP, PSAD, T4 #### [facility] [address] [address] Wanda Anamaria Creatinine [Mass/Vol] 1.29 mg/dL Critically high 0.66-1.25 [facility] Comment on above: Performed By: #### T SH, LIPID, CMP, PSAD, T4 #### [facility] [address] [place] [address] Wanda Anamaria EGFR-AF CITIZEN OF [place] >60 Normal >=60 [facility] Comment on above: Performed By: #### T SH, LIPID, CMP, PSAD, T4 #### [facility] [address] [address] Wanda Anamaria EGFR-NON AF CITIZEN OF [place] 58 mL/min/1.73m2 Critically low >=60 [facility] Comment on above: Performed By: #### T SH, LIPID, CMP, PSAD, T4 #### [facility] [address] [place] [address] Wanda Anamaria Globulin (S) [Mass/Vol] 4.5 g/dL Normal [facility] Comment on above: Performed By: #### T SH, LIPID, CMP, PSAD, T4 #### [facility] [address] [place] [address] Wanda Anamaria Glucose [Mass/Vol] 153 mg/dL Critically high 74-106 [facility] Comment on above: Performed By: #### T SH, LIPID, CMP, PSAD, T4 #### [facility] [address] [address] Wanda Anamaria Potassium [Moles/Vol] 4.4 mmol/L Normal 3.4-5.0 [facility] Comment on above: Performed By: #### T SH, LIPID, CMP, PSAD, T4 #### [facility] [address] [address] Wanda Anamaria Protein [Mass/Vol] 7.8 g/dL Normal 6.1-8.2 [facility] Comment on above: Performed By: #### T SH, LIPID, CMP, PSAD, T4 #### [facility] [address] [place] [address] Wanda Anamaria Sodium [Moles/Vol] 140 mmol/L Normal 137-145 [facility] Comment on above: Performed By: #### T SH, LIPID, CMP, PSAD, T4 #### [facility] [address] [place] [address] Wanda Anamaria Urea nitrogen [Mass/Vol] 28.0 mg/dL Critically high 9.0-20.0 [facility] Comment on above: Performed By: #### T SH, LIPID, CMP, PSAD, T4 #### [facility] [address] [place] [address] Wanda Anamaria Urea nitrogen/Creatinine [Mass ratio] 21.7 mg/mg Normal [facility] Comment on above: Performed By: #### T SH, LIPID, CMP, PSAD, T4 #### [facility] [address] [place] [address] Wanda Anamaria T4on 10-01-2020 T4 [Mass/Vol] 5.90 ug/dL Normal 5.53-11.00 [facility] Comment on above: Performed By: #### T SH, LIPID, CMP, PSAD, T4 #### [facility] [address] [place] [address] Wanda Anamaria TSHon 10-01-2020 TSH 2.487 uIU/mL Normal 0.470-4.680 [facility] Comment on above: Performed By: #### T SH, LIPID, CMP, PSAD, T4 #### [facility] [address] [place] [address] Wanda Anamaria TSH RANGE SEE BELOW Normal [facility] Comment on above: Result Comment: <0.3 4 UIU/ml HYPERTHYROID 0.34-5.60 UIU/ml EUTHYROID >5.60 UIU/ml HYPOTHYROID Performed By: #### T SH, LIPID, CMP, PSAD, T4 #### [facility] [address] [place], [place] [id number] Wanda Conrad XR LSPINE MIN 4 VIEWSon [...] EFRA HERBERT Date: 2020-04-04 15:05 Normal [facility] ACETAMINOPHENon 11-25-2019 Acetaminophen [Mass/Vol] ug/mL Critically low 10.1-30.0 [facility] Comment on above: Performed By: #### A CET #### [facility] [address] [place] [address] Wanda Conrad AMMONIAon 11-25-2019 Ammonia (P) [Moles/Vol] 7 umol/L Critically low 10-30 [facility] Comment on above: Performed By: #### A MM #### [facility] [address] [place] [address] Wanda Conrad CBC AUTO DIFFon 11-25-2019 BASO # 0.0 103/ul Normal 0.0-0.1 [facility] Comment on above: Performed By: #### T SH, LIPID, CMP, PSAD, T4 #### [facility] [address] [place] [address] Wanda Conrad Basophils/100 WBC (Bld) 0.4 % Normal 0.2-2.0 [facility] Comment on above: Performed By: #### T SH, LIPID, CMP, PSAD, T4 #### [facility] [address] [place] [address] Wandavanda Conrad EO # 0.2 103/ul Normal 0.0-0.7 [facility] Comment on above: Performed By: #### T SH, LIPID, CMP, PSAD, T4 #### [facility] [address] [place] [address] Wanda Conrad Eosinophils/100 WBC (Bld) 1.8 % Normal 0.9-7.0 [facility] Comment on above: Performed By: #### T SH, LIPID, CMP, PSAD, T4 #### [facility] [address] [place] [address] Wanda Conrad Erythrocyte distribution width (RBC) [Ratio] 14.1 % Normal 11.0-15.0 [facility] Comment on above: Performed By: #### T SH, LIPID, CMP, PSAD, T4 #### [facility] [address] [place] [address] Wanda Conrad Hematocrit (Bld) [Volume fraction] 41.2 % Critically low 42.0-54.0 [facility] Comment on above: Performed By: #### T SH, LIPID, CMP, PSAD, T4 #### [facility] [address] [place] [address] Wanda Conrad Hemoglobin (Bld) [Mass/Vol] 13.3 g/dL Critically low 14.0-18.0 [facility] Comment on above: Performed By: #### T SH, LIPID, CMP, PSAD, T4 #### [facility] [address] [place] [address] Wandavanda Conrad IG # 0.05 10e3/ul Critically high 0.00-0.03 The [facility] Comment on above: Performed By: #### T SH, LIPID, CMP, PSAD, T4 #### [facility] [address] [place] [address] Wanda Anamaria IG % 0.5 % Normal 0.0-0.5 [facility] Comment on above: Performed By: #### T SH, LIPID, CMP, PSAD, T4 #### [facility] [address] [place], [place] [id number] Wanda Anamaria LYMPH # 2.3 103/ul Normal 1.2-3.8 [facility] Comment on above: Performed By: #### T SH, LIPID, CMP, PSAD, T4 #### [facility] [address] [place], [place] [id number] Wanda Anamaria Lymphocytes/100 WBC (Bld) 21.1 % Normal 20.5-60.0 [facility] Comment on above: Performed By: #### T SH, LIPID, CMP, PSAD, T4 #### [facility] [address] [place], [place] [id number] Wanda Anamaria MANUAL DIFF REQ NO Normal [facility] Comment on above: Performed By: #### T SH, LIPID, CMP, PSAD, T4 #### [facility] [address] [place] [address] Wanda Anamaria MCH (RBC) [Entitic mass] 26.1 pg Normal 25.9-34.0 [facility] Comment on above: Performed By: #### T SH, LIPID, CMP, PSAD, T4 #### [facility] [address] [place], [place] [id number] Wandavanda Antoineen MCHC (RBC) [Mass/Vol] 32.3 g/dL Normal 29.9-35.2 [facility] Comment on above: Performed By: #### T SH, LIPID, CMP, PSAD, T4 #### [facility] [address] [place] [address] Wanda Anamaria MCV (RBC) [Entitic vol] 80.9 fL Normal 80.0-94.0 [facility] Comment on above: Performed By: #### T SH, LIPID, CMP, PSAD, T4 #### [facility] [address] [place] [address] Wanda Anamaria MONO # 0.5 103/ul Normal 0.3-0.8 [facility] Comment on above: Performed By: #### T SH, LIPID, CMP, PSAD, T4 #### [facility] [address] [place] [address] Wanda Anamaria Monocytes/100 WBC (Bld) 4.8 % Normal 1.7-12.0 [facility] Comment on above: Performed By: #### T SH, LIPID, CMP, PSAD, T4 #### [facility] [address] [address] Wandavanda Antoineen NEUT # 7.8 103/ul Critically high 1.4-6.5 [facility] Comment on above: Performed By: #### T SH, LIPID, CMP, PSAD, T4 #### [facility] [address] [address] Wanda Conrad Neutrophils/100 WBC (Bld) 71.4 % Normal 43.0-75.0 [facility] Comment on above: Performed By: #### T SH, LIPID, CMP, PSAD, T4 #### [facility] [address] [place] [address] Wanda Conrad Platelet mean volume (Bld) [Entitic vol] 9.6 fL Normal 9.5-13.5 [facility] Comment on above: Performed By: #### T SH, LIPID, CMP, PSAD, T4 #### [facility] [address] [id number] Wandavanda Antoineen PLT 287 103/ul Normal 150-450 [facility] Comment on above: Performed By: #### T SH, LIPID, CMP, PSAD, T4 #### [facility] [address] [place], [place] [id number] Wanda Anamaria RBC 5.09 106/ul Normal 4.70-6.10 [facility] Comment on above: Performed By: #### T SH, LIPID, CMP, PSAD, T4 #### [facility] [address] [id number] Wanda Anamaria WBC 10.8 103/ul Normal 4.0-11.0 [facility] Comment on above: Performed By: #### T SH, LIPID, CMP, PSAD, T4 #### [facility] [address] [id number] [address] HEAD WO CONon 11-25-2019 [...] by: EFRA MARRERO Date: 2019-11-25 01:49 Normal [facility] ETHANOL (BLD ALC)on 11-25-19 20 ALC NOTE NOTE: 80 mg/dl is [facility] legal limit for a blood alcohol level Normal [facility] Comment on above: Performed By: #### T SH, LIPID, CMP, PSAD, T4 #### [facility] [address] [address] Wanda Antoineen Ethanol [Mass/Vol] 205 mg/dL Normal [facility] Comment on above: Performed By: #### T SH, LIPID, CMP, PSAD, T4 #### [facility] [address] [id number] Wanda Conrad PROF 14(COMP METB)on 020 Albumin [Mass/Vol] 3.2 g/dL Critically low 3.5-5.0 [facility] Comment on above: Performed By: #### T SH, LIPID, CMP, PSAD, T4 #### [facility] [address] [id number] Wandavanda Conrad Albumin/Globulin [Mass ratio] 0.8 {ratio} Normal [facility] Comment on above: Performed By: #### T SH, LIPID, CMP, PSAD, T4 #### [facility] [address] [place], [place] [address] Wanda Anamaria ALP [Catalytic activity/Vol] 111 U/L Normal 38-126 [facility] Comment on above: Performed By: #### T SH, LIPID, CMP, PSAD, T4 #### [facility] [address] [address] Wanda Anamaria ALT [Catalytic activity/Vol] 23 U/L Normal 21-72 [facility] Comment on above: Performed By: #### T SH, LIPID, CMP, PSAD, T4 #### [facility] [address] [address] Wanda Anamaria Anion gap [Moles/Vol] 16.5 mmol/L Normal [facility] Comment on above: Performed By: #### T SH, LIPID, CMP, PSAD, T4 #### [facility] [address] [place] [address] Wanda Anamaria AST [Catalytic activity/Vol] 15 U/L Critically low 17-59 [facility] Comment on above: Performed By: #### T SH, LIPID, CMP, PSAD, T4 #### [facility] [address] [place] [address] Wanda Anamaria Bilirubin [Mass/Vol] 0.3 mg/dL Normal 0.2-1.3 [facility] Comment on above: Performed By: #### T SH, LIPID, CMP, PSAD, T4 #### [facility] [address] [place] [address] Wanda Anamaria Calcium [Mass/Vol] 8.2 mg/dL Critically low 8.4-10.2 [facility] Comment on above: Performed By: #### T SH, LIPID, CMP, PSAD, T4 #### [facility] [address] [place] [address] Wanda Anamaria Chloride [Moles/Vol] 98 mmol/L Normal 98-107 [facility] Comment on above: Performed By: #### T SH, LIPID, CMP, PSAD, T4 #### [facility] [address] [place] [address] Wanda Anamaria CO2 [Moles/Vol] 23.2 mmol/L Normal 22.0-30.0 [facility] Comment on above: Performed By: #### T SH, LIPID, CMP, PSAD, T4 #### [facility] [address] [id number] Wanda Anamaria Creatinine [Mass/Vol] 0.91 mg/dL Normal 0.66-1.25 [facility] Comment on above: Performed By: #### T SH, LIPID, CMP, PSAD, T4 #### [facility] [address] [address] Wanda Anamaria EGFR-AF CITIZEN [place] >60 Normal >=60 [facility] Comment on above: Performed By: #### T SH, LIPID, CMP, PSAD, T4 #### [facility] [address] [place] [address] Wanda Anamaria EGFR-NON AF CITIZEN OF [place] >60 Normal >=60 [facility] Comment on above: Performed By: #### T SH, LIPID, CMP, PSAD, T4 #### [facility] [address] [place] [address] Wanda Anamaria Globulin (S) [Mass/Vol] 4.1 g/dL Normal [facility] Comment on above: Performed By: #### T SH, LIPID, CMP, PSAD, T4 #### [facility] [address] [place] [address] Wanda Anamaria Glucose [Mass/Vol] 231 mg/dL Critically high 74-106 [facility] Comment on above: Performed By: #### T SH, LIPID, CMP, PSAD, T4 #### [facility] [address] [place] [address] Wanda Anamaria Potassium [Moles/Vol] 3.7 mmol/L Normal 3.4-5.0 [facility] Comment on above: Performed By: #### T SH, LIPID, CMP, PSAD, T4 #### [facility] [address] [place] [address] Wanda Anamaria Protein [Mass/Vol] 7.3 g/dL Normal 6.1-8.2 [facility] Comment on above: Performed By: #### T SH, LIPID, CMP, PSAD, T4 #### [facility] [address] [place] [address] Wanda Anamaria Sodium [Moles/Vol] 134 mmol/L Critically low 137-145 [facility] Comment on above: Performed By: #### T SH, LIPID, CMP, PSAD, T4 #### [facility] [address] [address] Wanda Conrad Urea nitrogen [Mass/Vol] 22.0 mg/dL Critically high 9.0-20.0 [facility] Comment on above: Performed By: #### T SH, LIPID, CMP, PSAD, T4 #### [facility] [address] [address] Wanda Conrad Urea nitrogen/Creatinine [Mass ratio] 24.2 mg/mg Normal [facility] Comment on above: Performed By: #### T SH, LIPID, CMP, PSAD, T4 #### [facility] [address] [place] [address] Wanda Conrad SALICYLATEon 11-25-2019 SALICYLATE 1.3 mg/dL Normal <=20.0 [facility] Comment on above: Performed By: #### T SH, LIPID, CMP, PSAD, T4 #### [facility] [address] [place] [address] Wanda Conrad XR CHEST 1 Von 11-25-2019 [...] EFRA MARRERO Date: 2019-11-25 01:51 Normal [facility] XR PELVIS 1_2 VIEWSon 2019 XR [...] EFRA MARRERO Date: 2019-11-25 01:52 Normal [facility] CBC AUTO DIFFon 10-18-2019 BASO # 0.1 103/ul Normal 0.0-0.1 [facility] Comment on above: Performed By: #### C BC #### [facility] [address] [place], [place] [address] Wanda Anamaria Basophils/100 WBC (Bld) 0.6 % Normal 0.2-2.0 [facility] Comment on above: Performed By: #### C BC #### [facility] [address] [id number] Wanda Anamaria EO # 0.2 103/ul Normal 0.0-0.7 [facility] Comment on above: Performed By: #### C BC #### [facility] [address] [address] Wanda Anamaria Eosinophils/100 WBC (Bld) 1.7 % Normal 0.9-7.0 [facility] Comment on above: Performed By: #### C BC #### [facility] [address] [id number] Wanda Anamaria Erythrocyte distribution width (RBC) [Ratio] 14.4 % Normal 11.0-15.0 [facility] Comment on above: Performed By: #### C BC #### [facility] [address] [id number] Wanda Anamaria Hematocrit (Bld) [Volume fraction] 44.2 % Normal 42.0-54.0 [facility] Comment on above: Performed By: #### C BC #### [facility] [address] [id number] Wanda Anamaria Hemoglobin (Bld) [Mass/Vol] 13.9 g/dL Critically low 14.0-18.0 [facility] Comment on above: Performed By: #### C BC #### [facility] [address] [id number] Wanda Anamaria IG # 0.04 10e3/ul Critically high 0.00-0.03 [facility] Comment on above: Performed By: #### C BC #### [facility] [address] [place] [address] Wanad Anamaria IG % 0.4 % Normal 0.0-0.5 [facility] Comment on above: Performed By: #### C BC #### [facility] [address] [place], [place] [id number] Wandavanda Antoineen LYMPH # 2.8 103/ul Normal 1.2-3.8 [facility] Comment on above: Performed By: #### C BC #### [facility] [address] [place], [place] [id number] Wandavanda Antoineen Lymphocytes/100 WBC (Bld) 28.2 % Normal 20.5-60.0 [facility] Comment on above: Performed By: #### C BC #### [facility] [address] [place] [address] Wanda Conrad MANUAL DIFF REQ NO Normal [facility] Comment on above: Performed By: #### C BC #### [facility] [address] [place] [address] Wanda Anamaria MCH (RBC) [Entitic mass] 25.9 pg Normal 25.9-34.0 [facility] Comment on above: Performed By: #### C BC #### [facility] [address] [place], [place] [id number] Wandavanda Conrad MCHC (RBC) [Mass/Vol] 31.4 g/dL Normal 29.9-35.2 [facility] Comment on above: Performed By: #### C BC #### [facility] [address] [place] [address] Wanda Anamaria MCV (RBC) [Entitic vol] 82.3 fL Normal 80.0-94.0 [facility] Comment on above: Performed By: #### C BC #### [facility] [address] [place], [place] [id number] Wanda Anamaria MONO # 0.5 103/ul Normal 0.3-0.8 [facility] Comment on above: Performed By: #### C BC #### [facility] [address] [place], [place] [address] Wanda Anamaria Monocytes/100 WBC (Bld) 5.2 % Normal 1.7-12.0 [facility] Comment on above: Performed By: #### C BC #### [facility] [address] [place], [place] [address] Wandavanda Antoineen NEUT # 6.4 103/ul Normal 1.4-6.5 [facility] Comment on above: Performed By: #### C BC #### [facility] [address] [place], [place] [address] Wanda Anamaria Neutrophils/100 WBC (Bld) 63.9 % Normal 43.0-75.0 [facility] Comment on above: Performed By: #### C BC #### [facility] [address] [place], [place] [id number] Wandavanda Conrad Platelet mean volume (Bld) [Entitic vol] 10.5 fL Normal 9.5-13.5 [facility] Comment on above: Performed By: #### C BC #### [facility] [address] [place], [place] [id number] Wanda Anamaria PLT 281 103/ul Normal 150-450 [facility] Comment on above: Performed By: #### C BC #### [facility] [address] [place], [place] [address] Wanda Anamaria RBC 5.37 106/ul Normal 4.70-6.10 [facility] Comment on above: Performed By: #### C BC #### [facility] [address] [place], [place] [address] Wanda Anamaria WBC 10.0 103/ul Normal 4.0-11.0 [facility] Comment on above: Performed By: #### C BC #### [facility] [address] [place] [address] Wandavanda Conrad GLYCOHEMOGLOBIN A1Con 2019 Glucose [Mass/Vol] 163 mg/dL Normal [facility] Comment on above: Performed By: #### T SH, LIPID, CMP, PSAD, T4 #### [facility] [address] [place], [place] [id number] Wanda Anamaria HbA1c (Bld) [Mass fraction] 7.3 % Critically high <=6.0 [facility] Comment on above: Performed By: #### T SH, LIPID, CMP, PSAD, T4 #### [facility] [address] [place], [place] [address] Wanda Anamaria LIPID PROFILEon 10-18-2019 CHOL-HDL RATIO NORM SEE BELOW Normal [facility] Comment on above: Result Comment: 3.3 - 4.4 LOW RISK 4.4 - 7.1 AVERAGE RISK 7.1 - 11.0 MODERATE RISK >11.0 HIGH RISK Performed By: #### T SH, LIPID, CMP, PSAD, T4 #### [facility] [address] [place], [place] [address] Wanda Anamaria Cholesterol [Mass/Vol] 130 mg/dL Normal <=200 [facility] Comment on above: Performed By: #### T SH, LIPID, CMP, PSAD, T4 #### [facility] [address] [place], [place] [id number] Wanda Anamaria Cholesterol in HDL [Mass/Vol] 32 mg/dL Normal [facility] Comment on above: Performed By: #### T SH, LIPID, CMP, PSAD, T4 #### [facility] [address] [id number] Wanda Anamaria Cholesterol in LDL [Mass/Vol] 76.6 mg/dL Normal [facility] Comment on above: Performed By: #### T SH, LIPID, CMP, PSAD, T4 #### [facility] [address] [place], [place] [address] Wanda Anamaria Cholesterol.total/Ch olesterol in HDL [Mass ratio] 4.1 {ratio} Normal [facility] Comment on above: Performed By: #### T SH, LIPID, CMP, PSAD, T4 #### [facility] [address] [place], [place] [address] Wanda Anamaria HDL NORMAL > or = 60 mg/dl - LO W CARDIOVASCULAR RISK <40 mg/dl - HIGH CARDIOVASCULAR RISK Normal [facility] Comment on above: Performed By: #### T SH, LIPID, CMP, PSAD, T4 #### [facility] [address] [place], [place] [address] Wanda Anamaria LDL CALC NORMAL SEE BELOW Normal [facility] Comment on above: Result Comment: <100 mg/dl OPTIMAL 100 - 129 mg/dl NEAR OR ABOVE OPTIMAL 130 - 159 mg/dl BORDERLINE HIGH 160 - 189 mg/dl HIGH >190 mg/dl VERY HIGH Performed By: #### T SH, LIPID, CMP, PSAD, T4 #### [facility] [address] [place], [place] [address] Wandavanda Conrad Triglyceride [Mass/Vol] 107 mg/dL Normal <=150 [facility] Comment on above: Performed By: #### T SH, LIPID, CMP, PSAD, T4 #### [facility] [address] [place], [place] [address] Wanda Anamaria VLDL CALC 21.4 mg/dL Normal [facility] Comment on above: Performed By: #### T SH, LIPID, CMP, PSAD, T4 #### [facility] [address] [place], [place] [id number] Wanda Conrad MICROALBUMIN, RAND URon 09-28 mALB <1.3 Normal <=30.0 [facility] Comment on above: Performed By: #### M ALBR #### [facility] [address], [place] [address] Wanda Conrad mALBH PLEASE NOTE: NORMAL RANGE CHANGE, TESTING PERFORMED AT [facility]. Normal [facility] Comment on above: Performed By: #### M ALBR #### [facility] [address] [id number] Wanda Conrad PROF 14(COMP METB)on 020 Albumin [Mass/Vol] 3.5 g/dL Normal 3.5-5.0 [facility] Comment on above: Performed By: #### T SH, LIPID, CMP, PSAD, T4 #### [facility] [address], [place] [address] Wanda Conrad Albumin/Globulin [Mass ratio] 0.8 {ratio} Normal [facility] Comment on above: Performed By: #### T SH, LIPID, CMP, PSAD, T4 #### [facility] [address] [id number] Wanda Anamaria ALP [Catalytic activity/Vol] 103 U/L Normal 38-126 [facility] Comment on above: Performed By: #### T SH, LIPID, CMP, PSAD, T4 #### [facility] [address] [place] [address] Wanda Anamaria ALT [Catalytic activity/Vol] 21 U/L Normal 21-72 [facility] Comment on above: Performed By: #### T SH, LIPID, CMP, PSAD, T4 #### [facility] [address] [place] [address] Wanda Anamaria Anion gap [Moles/Vol] 13.9 mmol/L Normal [facility] Comment on above: Performed By: #### T SH, LIPID, CMP, PSAD, T4 #### [facility] [address] [place] [address] Wanda Anamaria AST [Catalytic activity/Vol] 18 U/L Normal 17-59 [facility] Comment on above: Performed By: #### T SH, LIPID, CMP, PSAD, T4 #### [facility] [address] [place] [address] Wanda Anamaria Bilirubin [Mass/Vol] 0.5 mg/dL Normal 0.2-1.3 [facility] Comment on above: Performed By: #### T SH, LIPID, CMP, PSAD, T4 #### [facility] [address] [place] [address] Wanda Anamaria Calcium [Mass/Vol] 8.9 mg/dL Normal 8.4-10.2 [facility] Comment on above: Performed By: #### T SH, LIPID, CMP, PSAD, T4 #### [facility] [address] [place] [address] Wanda Anamaria Chloride [Moles/Vol] 100 mmol/L Normal 98-107 [facility] Comment on above: Performed By: #### T SH, LIPID, CMP, PSAD, T4 #### [facility] [address] [place] [address] Wanda Anamaria CO2 [Moles/Vol] 28.2 mmol/L Normal 22.0-30.0 [facility] Comment on above: Performed By: #### T SH, LIPID, CMP, PSAD, T4 #### [facility] [address] [address] Wanda Anamaria Creatinine [Mass/Vol] 1.08 mg/dL Normal 0.66-1.25 [facility] Comment on above: Performed By: #### T SH, LIPID, CMP, PSAD, T4 #### [facility] [address] [place] [address] Wanda Anamaria EGFR-AF CITIZEN OF [place] >60 Normal >=60 [facility] Comment on above: Performed By: #### T SH, LIPID, CMP, PSAD, T4 #### [facility] [address] [place] [address] Wanda Anamaria EGFR-NON AF CITIZEN OF [place] >60 Normal >=60 [facility] Comment on above: Performed By: #### T SH, LIPID, CMP, PSAD, T4 #### [facility] [address] [place] [address] Wanda Anamaria Globulin (S) [Mass/Vol] 4.6 g/dL Normal [facility] Comment on above: Performed By: #### T SH, LIPID, CMP, PSAD, T4 #### [facility] [address] [place] [address] Wanda Anamaria Glucose [Mass/Vol] 129 mg/dL Critically high 74-106 [facility] Comment on above: Performed By: #### T SH, LIPID, CMP, PSAD, T4 #### [facility] [address] [place] [address] Wanda Anamaria Potassium [Moles/Vol] 4.1 mmol/L Normal 3.4-5.0 [facility] Comment on above: Performed By: #### T SH, LIPID, CMP, PSAD, T4 #### [facility] [address] [place] [address] Wanda Anamaria Protein [Mass/Vol] 8.1 g/dL Normal 6.1-8.2 [facility] Comment on above: Performed By: #### T SH, LIPID, CMP, PSAD, T4 #### [facility] [address], [place] [address] Wanda Anamaria Sodium [Moles/Vol] 138 mmol/L Normal 137-145 [facility] Comment on above: Performed By: #### T SH, LIPID, CMP, PSAD, T4 #### [facility] [address], [place] [address] Wanda Anamaria Urea nitrogen [Mass/Vol] 34.0 mg/dL Critically high 9.0-20.0 [facility] Comment on above: Performed By: #### T SH, LIPID, CMP, PSAD, T4 #### [facility] [address], [place] [address] Wanda Anamaria Urea nitrogen/Creatinine [Mass ratio] 31.5 mg/mg Normal [facility] Comment on above: Performed By: #### T SH, LIPID, CMP, PSAD, T4 #### [facility] [address], [place] [address] Wanda Anamaria Vital Signs Date Time Vital Sign Value Performing Clinician Facility 09-03-2024 13:48-0400 Body height 167.6 cm Merritt Thacker DO Work Phone: [facility] 09-03-2024 13:48-0400 Body mass index (BMI) [Ratio] 66.3 kg/m2 Merritt Thacker DO Work Phone: [facility] 09-03-2024 13:48-0400 Body temperature 97.5 [degF] Merritt Thacker DO Work Phone: [facility] 09-03-2024 13:48-0400 Body weight 186.34 kg Merritt Thacker DO Work Phone: [facility] 09-03-2024 13:48-0400 Diastolic blood pressure 70 mm[Hg] Merritt Thacker DO Work Phone: [facility] Comment on above: bp cuff not big enough 09-03-2024 13:48-0400 Heart rate 92 /min Merritt Thacker DO Work Phone: [facility] 09-03-2024 13:48-0400 Respiratory rate 20 /min Merritt Dents DO Work Phone: [facility] [employer] 09-03-2024 13:48-0400 SaO2% (BldA) [Mass fraction] 91 % Merritt Dents DO Work Phone: [facility] 09-03-2024 13:48-0400 Systolic blood pressure 112 mm[Hg] Merritt Dents DO Work Phone: [facility] Comment on above: bp cuff not big enough 06-05-2024 13:20-0500 Diastolic blood pressure 80 mm[Hg] Merritt Lynnehas DO Work Phone: [facility] 06-05-2024 13:20-0500 Systolic blood pressure 130 mm[Hg] Merritt Dents DO Work Phone: [facility] 06-05-2024 12:57-0500 Body height 167.6 cm Merritt Dents DO Work Phone: [facility] 06-05-2024 12:57-0500 Body mass index (BMI) [Ratio] 68.44 kg/m2 Merritt Lynnehas DO Work Phone: [facility] [facility] 06-05-2024 12:57-0500 Body temperature 97.59 [degF] Merritt Dents DO Work Phone: [facility] 06-05-2024 12:57-0500 Body weight 192.32 kg Merritt Dents DO Work Phone: [facility] 06-05-2024 12:57-0500 Heart rate 78 /min Merritt Lynnehas DO Work Phone: [facility] [employer] 06-05-2024 12:57-0500 Respiratory rate 20 /min Merritt Lynnehas DO Work Phone: [facility] 06-05-2024 12:57-0500 SaO2% (BldA) [Mass fraction] 97 % Merritt Dents DO Work Phone: [facility] [facility] 02-21-2024 15:01-0400 Body height 167.6 cm Merritt Thacker DO Work Phone: [facility] 02-21-2024 15:01-0400 Body mass index (BMI) [Ratio] 63.75 kg/m2 Merritt Dents DO Work Phone: [facility] 02-21-2024 15:01-0400 Body temperature 97.59 [degF] Merritt Dents DO Work Phone: [facility] 02-21-2024 15:01-0400 Body weight 179.17 kg Merritt Dents DO Work Phone: [facility] 02-21-2024 15:01-0400 Diastolic blood pressure 70 mm[Hg] Merritt Thacker DO Work Phone: [facility] 02-21-2024 15:01-0400 Heart rate 88 /min Merritt Dents DO Work Phone: [facility] 02-21-2024 15:01-0400 SaO2% (BldA) [Mass fraction] 95 % Merritt Dents DO Work Phone: [facility] 02-21-2024 15:01-0400 Systolic blood pressure 130 mm[Hg] Merritt Dents DO Work Phone: [facility] 01-16-2024 16:34-0400 Body height 167.6 cm Merritt Dents DO Work Phone: [facility] 01-16-2024 16:34-0400 Body mass index (BMI) [Ratio] 67.39 kg/m2 Merritt Dents DO Work Phone: [facility] 01-16-2024 16:34-0400 Body temperature 97.11 [degF] Merritt Dents DO Work Phone: [facility] 01-16-2024 16:34-0400 Body weight 189.38 kg Merritt Dents DO Work Phone: [facility] 01-16-2024 16:34-0400 Diastolic blood pressure 80 mm[Hg] Merritt Dents DO Work Phone: [facility] 01-16-2024 16:34-0400 Heart rate 71 /min Merritt Lynnehas DO Work Phone: [facility] 01-16-2024 16:34-0400 SaO2% (BldA) [Mass fraction] 98 % Merritt Dents DO Work Phone: [facility] 01-16-2024 16:34-0400 Systolic blood pressure 110 mm[Hg] Merritt Dents DO Work Phone: [facility] 01-02-2024 14:38-0400 Body height 167.6 cm Merritt Dents DO Work Phone: [facility] 01-02-2024 14:38-0400 Body temperature 98.49 [degF] Merritt Dents DO Work Phone: [facility] 01-02-2024 14:38-0400 Diastolic blood pressure 74 mm[Hg] Merritt Dents DO Work Phone: [facility] 01-02-2024 14:38-0400 Heart rate 75 /min Merritt Dents DO Work Phone: [facility] 01-02-2024 14:38-0400 Respiratory rate 20 /min Merritt Dents DO Work Phone: [facility] 01-02-2024 14:38-0400 SaO2% (BldA) [Mass fraction] 94 % Merritt Dents DO Work Phone: [facility] 01-02-2024 14:38-0400 Systolic blood pressure 118 mm[Hg] Merritt Lynnehas DO Work Phone: [facility] 09-07-2023 13:51-0400 Diastolic blood pressure 84 mm[Hg] [facility]acker [facility] 09-07-2023 13:51-0400 Systolic blood pressure 128 mm[Hg] Merritt Dents [facility] 09-07-2023 13:09-0400 Body height 167.6 cm Merritt Dents DO [facility] 09-07-2023 13:09-0400 Body mass index (BMI) [Ratio] 68.86 kg/m2 Merritt Dents DO Work Phone[facility] 09-07-2023 13:09-0400 Body temperature 97.2 [degF] Merritt Dents DO Work Phone[facility] 09-07-2023 13:09-0400 Body weight 193.5 kg Merritt Dents DO Work Phone: [facility] 09-07-2023 13:09-0400 Heart rate 88 /min Merritt Dents DO Work Phone: [facility] 09-07-2023 13:09-0400 Respiratory rate 20 /min Merritt Thacker [facility] 09-07-2023 13:09-0400 SaO2% (BldA) [Mass fraction] 98 % Merritt Thacker DO Work Phone[facility] Encounters Encounter Date Encounter Type Care Provider Facility Start: 02-15-2025 End: 02-15-2025 Telephone encounter Noemi Caraballo C[facility] Comment on above: Colon Cancer Screeni ng Start: 01-21-2025 End: 01-21-2025 ambulatory CHRIS GARCIA [facility] Start: 12-03-2024 End: 12-03-2024 Refill Merritt Thacker DO [facility] Comment on above: Type 2 diabetes moses itus without complication, without long- term current use of insulin ([facility]); Non-seasonal allergic rhinitis, unspecified trigger Start: 09-03-2024 End: 09-03-2024 [facility] Start: 09-03-2024 End: 09-03-2024 Office outpatient visit 25 minutes Merritt Eng Chilo DO Work Phone: [facility] Comment on above: Type 2 diabetes moses itus without complication, without long- term current use of insulin ([facility]) (Primary Dx); Special screening for malignant neoplasm of colon; Chronic combined systolic and diastolic CHF (congestive heart failure) ([facility]); Non-seasonal allergic rhinitis, unspecified trigger; Primary osteoarthritis of right shoulder Start: 09-03-2024 End: 09-03-2024 [facility] Start: 08-25-2024 End: 08-26-2024 Refill Merritt Eng Chilo BEST Work Phone: [facility] Comment on above: Type 2 diabetes moses itus without complication, without long- term current use of insulin ([facility]) Start: 06-07-2024 End: 06-07-2024 Telephone encounter Merritt Eng Chilo BEST Work Phone: [facility] Start: 06-05-2024 End: 06-05-2024 [facility] Start: 06-05-2024 End: 06-05-2024 Office outpatient visit 25 minutes Merritt Albertina Thacker DO Work Phone: [facility] Comment on above: Type 2 diabetes moses itus without complication, without long- term current use of insulin ([facility]) (Primary Dx); Chronic combined systolic and diastolic CHF (congestive heart failure) ([facility]); Obesity, morbid ([facility]); Stage 3b chronic kidney disease ([facility]); Encounter for screening for malignant neoplasm of prostate; Encounter for immunization; Primary osteoarthritis of right shoulder; Non-seasonal allergic rhinitis, unspecified trigger Start: 06-05-2024 End: 06-05-2024 ambulatory [facility] Start: 03-01-2024 End: 03-02-2024 Telephone encounter Inna Jefferson [employer] Work Phone: [facility] Comment on above: Referral Start: 02-29-2024 End: 02-29-2024 Bamboo flowsheet Inna Charity Jefferson [employer] Work Phone: [facility] Start: 02-29-2024 End: 02-29-2024 Bamboo flowsheet Inna Charity Jefferson [employer] Work Phone: [facility] Start: 02-29-2024 End: 02-29-2024 Office outpatient visit 25 minutes Inna Jefferson [employer] Work Phone: [facility] Comment on above: Right shoulder pain, unspecified chronicity (Primary Dx); Chronic pain of both knees; Chronic pain of both ankles; Impingement of right shoulder Start: 02-29-2024 End: 02-29-2024 ambulatory INNA Charity JEFFERSON Not Available Start: 02-21-2024 End: 02-21-2024 ambulatory [facility] Start: 02-21-2024 End: 02-21-2024 Office outpatient visit 25 minutes Merritt Thacker DO Work Phone: [facility] Comment on above: Type 2 diabetes moses itus without complication, without long- term current use of insulin ([facility]) (Primary Dx); Chronic combined systolic and diastolic CHF (congestive heart failure) ([facility]); Primary osteoarthritis of right shoulder; Chronic right shoulder pain; Primary osteoarthritis of both ankles Start: 01-17-2024 End: 01-17-2024 [facility] Start: 01-16-2024 End: 01-16-2024 [facility] Start: 01-16-2024 End: 01-16-2024 [facility] Start: 01-16-2024 End: 01-16-2024 Transitional care manage srvc 14 day discharge [facility] DO Work Phone: [facility] Comment on above: Chronic combined sys tolic and diastolic CHF (congestive heart failure) ([facility]) (Primary Dx); Type 2 diabetes mellitus without complication, without long-term current use of insulin ([facility]); Primary osteoarthritis of right shoulder; Stage 3b chronic kidney disease ([facility]); Hyperlipidemia, unspecified hyperlipidemia type Start: 01-09-2024 End: 01-10-[address] [facility] Start: 01-02-2024 End: 01-02-2024 ambulatory [facility] Start: 01-02-2024 End: 01-02-2024 Transitional care manage srvc 14 day discharge Merritt Thacker DO Work Phone: [facility] Comment on above: Acute on chronic sys tolic congestive heart failure ([facility]) (Primary Dx); Essential hypertension; Stage 3b chronic kidney disease ([facility]); Type 2 diabetes mellitus without complication, without long-term current use of insulin ([facility]); Obesity, morbid ([facility]) Start: 12-26-2023 End: 01-02-2024 Telephone encounter Merritt Thacker DO Work Phone: [facility] Start: 12-14-2023 End: 12-15-2023 Telephone encounter Selma Quijano [facility] Start: 11-18-2023 End: 11-18-[address] [facility] Comment on above: Type 2 diabetes moses itus without complication, without long- term current use of insulin ([facility]) Start: 09-15-2023 End: 09-15-2023 Telephone encounter Nitza Oneal [facility] Start: 09-07-2023 End: 09-07-2023 ambulatory [facility] Start: 09-07-2023 End: 09-07-2023 Office outpatient visit 25 minutes Merritt Thacker DO Work Phone: [facility] Comment on above: Type 2 diabetes moses itus without complication, without long- term current use of insulin ([facility]) (Primary Dx); Stage 3b chronic kidney disease ([facility]); Essential hypertension; Class 3 severe obesity due to excess calories with serious comorbidity and body mass index (BMI) of 60.0 to 69.9 in adult ([facility]); Immunization due Start: 09-07-2023 End: 09-07-2023 [facility] Start: 06-17-2023 Telephone encounter Kaveh Cuca Juan Jose rivera DO Work Phone: [facility] Comment on above: Refund Checks Start: 04-11-2023 End: 04-11-2023 ambulatory INNA JEFFERSON Not Available Start: 07-13-2021 End: 07-29-2021 ambulatory Devang Birch Facility:[facility] Start: 10-09-2020 Encounter for genera l adult medical examination without abnormal findings DR DEVANG IBRCH [facility] Start: 10-01-2020 End: 10-02-[address] DEVANG [...] &/inj major jt/bursa w/o us Inna Jefferson [employer] Work Phone: Start: 02-21-2024 Adult depression scr [...] T SH, LIPID, CMP, PSAD, T4 #### [facility] [address] [place] [address] Wanda Conrad Plan of Treatment Date Care Activity Detail Author Start: 03-10-2033 DTaP,Tdap and Td Vaccines (2 - Td or Tdap) DTaP,Tdap and Td Vaccines (2 - Td or Tdap) [facility] Start: 09-03-2025 Adult BMI Screening Adult BMI Screen ing [facility] Start: 09-03-2025 Tobacco Screening Tobacco Screening [facility] Start: 06-05-2025 Adult BMI Screening Adult BMI Screen ing [facility] Start: 06-05-2025 Depression Screening Depression Scre [facility] Start: 06-05-2025 Statin Use: Diabetic Statin Use: Rukhsana betic [facility] Start: 06-05-2025 Tobacco Screening Tobacco Screening [facility] Start: 02-20-2025 Adult BMI Screening Adult BMI Screen ing [facility] Start: 02-20-2025 Depression Screening Depression Scre ening [facility] Start: 02-20-2025 Tobacco Screening Tobacco Screening [facility] Start: 01-28-2025 Influenza vaccination Influenza Vacc ine [facility] Start: 01-16-2025 Urine screening for protein Urine Microalbumin [facility] Start: 01-15-2025 Adult BMI Screening Adult BMI Screen ing [facility] Start: 01-15-2025 Depression Screening Depression Scre ening [facility] Start: 01-15-2025 Tobacco Screening Tobacco Screening [facility] Start: 01-03-2025 End: 01-03-2025 Patient encounter procedure 01/03/2025 1:00 PM EDT [facility] [address] [place] [address] Merritt Thacker, DO [address] [place] [address] [facility] Start: 01-01-2025 Depression Screening Depression Scre ening [facility] Start: 01-01-2025 Tobacco Screening Tobacco Screening [facility] Start: 09-06-2024 Adult BMI Screening Adult BMI Screen ing [facility] Start: 09-06-2024 Depression Screening Depression Scre ening [facility] Start: 09-06-2024 Tobacco Screening Tobacco Screening [facility] Start: 09-03-2024 End: 09-03-2024 Patient encounter procedure 09/03/2024 1:30 PM EDT Office Visit [facility] [address] [place] [address] Merritt Thacker, DO [address] [place] [address] [facility] Start: 06-21-2024 Statin Use: Diabetic Statin Use: Rukhsana betic [facility] Start: 06-05-2024 End: 06-05-2024 Patient encounter procedure 06/05/2024 1:00 PM EST [facility] [address] [place] [address] Merritt Thacker, DO [address] [place] [address] [facility] Start: 02-29-2024 End: 02-29-2024 Patient encounter procedure 02/29/2024 12:45 PM EDT Office Visit [facility] [address] [place] [address] Inna Jefferson, [employer] [address] [place] [address] Right shoulder pain, unspecified chronicity (Primary Dx) [facility] Comment on above: Right shoulder pain, unspecified chronicity (Primary Dx) Start: 02-21-2024 End: 02-21-2024 Patient encounter procedure 02/21/2024 3:00 PM EDT Office Visit [facility] [address] [place] [address] Merritt Thacker, DO [address] [place] [address] [facility] Start: 01-29-2024 Influenza vaccination Influenza Vacc ine [facility] Start: 01-16-2024 End: 01-16-2024 Patient encounter procedure 01/16/2024 4:15 PM EDT Office Visit [facility] [address] [place] [address] Merritt Thacker, DO [address] [place] [address] [facility] Start: 01-11-2024 Diabetic foot examination Diabetic Foot Exam [facility] Start: 01-11-2024 Urine screening for protein Urine Microalbumin [facility] Start: 2014 Administration of varicella zoster vaccine Zoster (Shingles) Vaccine (1 of 2) [facility] Start: 1982 Adult BMI Follow Up Plan Adult BMI Follow Up Plan [facility] Start: 1964 Glaucoma screening Diabetic Op hthalmology Exam [facility] [facility] End: 01-15-2025 CBC W Auto Differential panel - Blood CBC auto differential Lab Routine Stage 3b chronic kidney disease ([facility]) 1 Occurrences starting 01/16/2024 until 01/15/2025 [facility] Comment on above: 1 Occurrences starti ng 01/16/2024 until 01/15/2025 Cologuard [facility] Cologuar d Non-[facility] Lab Routine Special screening for malignant neoplasm of colon Ordered: 09/03/2024 [employer] Work Phone: Comment on above: Ordered: 09/03/2024 End: 01-15-2025 Comprehensive metabolic 2000 panel - Serum or Plasma Comprehensive metabolic panel Lab Routine Hyperlipidemia, unspecified hyperlipidemia type 1 Occurrences starting 01/16/2024 until 01/15/2025 [employer] Work Phone: Comment on above: 1 Occurrences starti ng 01/16/2024 until 01/15/2025 End: 06-05-2025 Hemoglobin A1c/Hemoglobin.total in Blood Hemoglobin A1c Lab Routine Type 2 diabetes mellitus without complication, without long-term current use of insulin ([facility]) 1 Occurrences starting 06/05/2024 until 06/05/2025 [employer] Work Phone: Comment on above: 1 Occurrences starti ng 06/05/2024 until 06/05/2025 Hemoglobin A1c/Hemoglobin.total in Blood Hemoglobin A1c Lab Routine Type 2 diabetes mellitus without complication, without long-term current use of insulin ([facility]) 06/05/2024 5:50 PM EST [facility] End: 09-06-2024 Hemoglobin A1c/Hemoglobin.total in Blood Hemoglobin A1c Lab Routine Type 2 diabetes mellitus without complication, without long-term current use of insulin ([facility]) 1 Occurrences starting 09/07/2023 until 09/06/2024 [employer] Work Phone: Comment on above: 1 Occurrences starti ng 09/07/2023 until 09/06/2024 Hemoglobin A1c/Hemoglobin.total in Blood Hemoglobin A1c Lab Routine Type 2 diabetes mellitus without complication, without long-term current use of insulin ([facility]) 09/07/2023 11:28 PM EDT [facility] End: 01-15-2025 Hemoglobin A1c/Hemoglobin.total in Blood Hemoglobin A1c Lab Routine Type 2 diabetes mellitus without complication, without long-term current use of insulin ([facility]) 1 Occurrences starting 01/16/2024 until 01/15/2025 [facility] Comment on above: 1 Occurrences starti ng 01/16/2024 until 01/15/2025 End: 01-15-2025 Lipid 1996 panel - Serum or Plasma Lipid profile Lab Routine Hyperlipidemia, unspecified hyperlipidemia type 1 Occurrences starting 01/16/2024 until 01/15/2025 [facility] Comment on above: 1 Occurrences starti ng 01/16/2024 until 01/15/2025 End: 01-15-2025 Magnesium [Mass/volume] in Serum or Plasma Magnesium Lab Routine Chronic combined systolic and diastolic CHF (congestive heart failure) ([facility]) 1 Occurrences starting 01/16/2024 until 01/15/2025 [facility] Comment on above: 1 Occurrences starti ng 01/16/2024 until 01/15/2025 End: 01-15-2025 Microalbumin - Albumin: Creatinine Urine Ratio Microalbumin - Albumin: Creatinine Urine Ratio Lab Routine Type 2 diabetes mellitus without complication, without long-term current use of insulin ([facility]) 1 Occurrences starting 01/16/2024 until 01/15/2025 [facility] Comment on above: 1 Occurrences starti ng 01/16/2024 until 01/15/2025 Immunizations Immunization Date Immunization Notes Care Provider Sanchez henley 06-05-2024 Seasonal trivalent influenza vaccine, adjuvanted, preservative free Merritt Thacker DO Work Phone: [facility] 06-05-2024 Immunization, In Clinic,; 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: [Drug or medicament (substance)] Merritt Thacker DO Work Phone: [facility] [employer] [facility] 06-05-2024 influenza virus vaccine, unspecified formulation Merritt Thacker DO Work Phone: [facility] 03-10-2023 influenza, injectabl e, quadrivalent, preservative free Merritt Thacker DO Work Phone: [facility] 03-10-2023 tetanus toxoid, redu marleni diphtheria toxoid, and acellular pertussis vaccine, adsorbed Merritt Thacker DO Work Phone: [facility] 03-10-2023 influenza virus vaccine, unspecified formulation Merritt Thacker DO Work Phone: [facility] Payers Date Payer Category Payer Medicare HMO [id number] 2024 Medicare [id number] 2024 Medicare [id number] 2021 Medicare [id number] 2021 Self-pay 1965 Unknown [id number] 2.16.84 0.1.198801.3.579.2.593 1964 Unknown [id number] 2.16.84 0.1.174908.3.579.2.593 1964 Unknown [id number] 2.16.84 0.1.676958.3.579.2.593 1964 Unknown [id number] 2.16.84 0.1.308757.3.579.2.593 1964 Unknown [id number] 2.16.84 0.1.241197.3.579.2.1259 1964 Unknown [id number] 2.16.840. 1.101928.3.579.2.1259 1964 Unknown [id number] 2.16. 840.1.285280.3.579.2.1286 1964 Unknown [id number] 2.16. 840.1.920198.3.579.2.1286 1964 Unknown [id number] 2.16.8 40.1.757526.3.579.2.1286 1964 Unknown [id number] 2.16.8 40.1.818354.3.579.2.128 1964 Unknown [id number] 2.16.8 40.1.225836.3.579.2.1286 1964 Unknown [id number] 2.16.8 40.1.627358.3.579.2.1286 1964 Unknown [id number] 2.16. 840.1.696948.3.579.2.1286 1964 Unknown [id number] 2.16. 840.1.982948.3.579.2.128 1964 Unknown [id number] 2.16.8 40.1.384806.3.579.2.1286 1964 Unknown [id number] 2.16.8 40.1.905371.3.579.2.1285 1964 Unknown [id number] 2.16.8 40.1.162292.3.579.2.1286 1959 Unknown [id number] Unknown Unknown [id number] 2.16.8 40.1.570525.3.579.2.531 Social History Date Type Detail Facility Start: 01-10-2023 End: 03-28-2023 Tobacco smoking status SDIS Never smoked tobacco [facility] Start: 01-10-2023 End: 03-28-2023 Tobacco use and exposure Smokeless tobacco non-user [facility] Start: 06-09-2023 End: 09-03-2024 Alcohol intake Current drinker of alcohol (finding) [facility] Start: 07-10-2020 End: 04-11-2023 History of Social function [facility] Start: 07-10-2020 End: 04-11-2023 Tobacco use panel [facility] Start: 1965 Sex Assigned At Not on file [facility] Adolescent depressio n screening assessment 0 [facility] Start: 06-05-2024 Alcohol Comment rare [facility] Start: 01-02-2015 Sex Male (finding) [facility] Clinical Notes 06-17-2023 to 02-15-2025 Telephone [...] Comments: Left message for patient to contact field care manager. Patient is overdue with cologuard order. Will send letter to patient. documented in this encounter [facility] 02-15-2025 Telephone encounter Note Care Coordination Outreach performed to coordinate overdue appointments, testing, and/or follow-up care: Yes Audit/Outreach Date: February 15, 2025 Reason: Colorectal Cancer Screening Method: Telephone and Letter Outreach Attempt: First Outcome: Left Message and Letter Sent Next PCP Appointment: N/A Tests/Referrals Pended: N/A Resources/Education Provided: Additional Comments: Left message for patient to contact field care manager. Patient is overdue with cologuard order. Will send letter to patient. [facility] 01-21-2025 Note SUBJECTIVE Reason for Visit: Cristobal Garcia is a 59 y.o. year old male patient being seen for heart failure hospital follow-up. HPI: Cristobal Garcia is a 59 y.o. year old male with significant medical history of heart failure with preserved ejection fraction, hypertension, diabetes type 2, hyperlipidemia, and JACQUE. Recently admitted at [facility] 12/31/2024 for SOB, acute on chronic diastolic [...] he is unsur (more content not included)... [facility] 09-03-2024 History of Present illness Narrative IM PROGRESS NOTE Patient - Cristobal Garcia Age - 58 y.o. - 1965 ASSESSMENT & PLAN 1. Type 2 diabetes mellitus without complication, without long-term current use of insulin ([facility]) (Primary) - goals of treatment reviewed with [...] systolic and diastolic CHF (congestive heart failure) ([facility]) - symptoms are stable -GDMT: Spironolactone, losartan, furosemide, carvedilol and dapagliflozin -no changes to current regimen 4. Non-seasonal allergic rhinitis, unspecified trigger -I believe this is the main trigger of his cough -not getting relief with Neredya. Will switch to Zyrtec. May need addition [...] exam was: 2024. Recently referred Ophthalmology in [place], and may need surgery done at [facility] Patient BP monitoring is done sporadically, and [...] Testing No results found. Merritt Thacker DO., [facility] Office: [phone] documented in this encounter [facility] 06-07-2024 Miscellaneous Notes Called for pat assist, need proof of income, insurance card and signature documented in this encounter [facility] 06-07-2024 Telephone encounter Note Called for pat assist, need proof of income, insurance card and signature [facility] 06-05-2024 History of Present illness Narrative IM PROGRESS NOTE Patient - Cristobal Garcia Age - 58 y.o. - 1965 ASSESSMENT & PLAN 1. Type 2 diabetes mellitus without complication, without long-term current use of insulin ([facility]) (Primary) -goals of treatment reviewed with the [...] systolic and diastolic CHF (congestive heart failure) ([facility]) -has gained weight -needs to restart his [...] 90 tablet; Refill: 0 3. Obesity, morbid ([facility]) -this plays a major role in his diabetes and heart failure -consider adding G LP 1 agent in addition to current regimen 4. Stage 3b chronic kidney disease ([facility]) -GFR ranges 46-76 over the past year [...] Testing No results found. Merritt Thacker DO., [facility] Office: [phone] documented in this encounter [facility] 03-02-2024 Telephone encounter Note Called and left vm for patient. [facility] 03-02-2024 Miscellaneous Notes Called and left vm for patient. 's office called regarding a referral they received. is not accepting new patients at this time. Please advise. documented in this encounter [facility] 03-01-2024 Telephone encounter Note 's office called regarding a referral they received. is not accepting new patients at this time. Please advise. [facility] 02-29-2024 History of Present illness Narrative Associated [...] prn. He notes he never heard from [facility] pain management, will send him back for eval of his bilateral knees for possible visco supplementation He notes since he came off his nsaids by his pcp his bilateral ankle and knees have been bothering him. Will send to dr. Payne, he is looking for ankle injections documented in this encounter [facility] 02-21-2024 History of Present illness Narrative IM PROGRESS NOTE Patient - Cristobal Garcia Age - 58 y.o. - 1965 ASSESSMENT & PLAN 1. Type 2 diabetes mellitus without complication, without long-term current use of insulin ([facility]) -I reviewed the results of the recent [...] systolic and diastolic CHF (congestive heart failure) ([facility]) -GDMT includes ARB (losartan), beta-bishop (carvedilol), spironolactone [...] Testing No results found. Merritt Thacker DO., [facility] Office: [phone] [facility] History of Present illness Narrative Subjective [...] post discharge medication. He was discharged from [facility] after being admitted for acute on chronic [...] for home nocturnal oxygen. Request sent to [employer]. Diagnoses and all orders for this visit: Chronic combined systolic and diastolic CHF (congestive heart failure) ([facility]) - aspirin 81 mg chewable tablet; Chew [...] complication, without long-term current use of insulin ([facility]) - Hemoglobin A1c; Future - Microalbumin - [...] Future documented in this encounter [facility] 01-09-2024 Miscellaneous Notes Alyssa from [facility] called wanting to know if you would follow this pt for home health care as he was discharged today from [facility] Message noted. Yes Message noted. Yes. He will need a TCM He comes in 01/15 is that okay Message noted. Yes documented in this encounter [facility] 01-09-2024 Telephone encounter Note Alyssa from [facility] called wanting to know if you would follow this pt for home health care as he was discharged today from [facility] 01-09-2024 Telephone encounter Note Message noted. Yes [facility] 01-09-2024 Telephone encounter Note Message noted. Yes. He will need a TCM [facility] 01-09-2024 Telephone encounter Note He comes in 01/15 is that okay [facility] 01-09-2024 Telephone encounter Note Message noted. Yes [facility] 01-02-2024 History of Present illness Narrative Subjective [...] post discharge medication. Patient was discharge from [facility] on 12/19/2023 after being admitted for congestive [...] his symptoms since he was discharged from [facility], and actually feels worse. It does appear [...] agent, Entresto, spironolactone. I phoned to the [facility], but no rooms are available and patient is are being boarded in the ER. I advised the patient to had directly to the [facility] for readmission at this time. Essential hypertension - overall control today. -no changes. Treatment for congestive heart failure will involve controlling hypertension Stage 3b chronic kidney disease ([facility]) - need to reassess renal function given his description of ice tea urine - admit to hospital as above Type 2 diabetes mellitus without complication, without long-term current use of insulin ([facility]) - previously on Rybelsus plus metformin - currently only on metformin, which given his kidney disease may not be the best choice - probably needs SGLT2 agent given his heart failure and diabetes - this will be evaluated during admission Obesity, morbid ([facility]) - BMI 68 - some of this may be water weight. Needs to be addressed during admission. documented in this encounter [facility] 12-26-2023 Miscellaneous Notes ----- Message from Dr. Merritt Thacker DO sent at 09/07/2023 7:47 PM EDT ----- DM recheck Pt hung up documented in this encounter [facility] 12-26-2023 Telephone encounter Note ----- Message from Dr. Merritt Thacker DO sent at 09/07/2023 7:47 PM EDT ----- DM recheck [facility] 12-26-2023 Telephone encounter Note Pt hung up [facility] 12-14-2023 Miscellaneous Notes Patient called and stated he is retaining fluid in his abdomen area and it is making him so SOB. What do you suggest he do? Message noted. I have no room for him today He will need to go to the ED Patient notified and understands. documented in this encounter [facility] 12-14-2023 Telephone encounter Note Patient called and stated he is retaining fluid in his abdomen area and it is making him so SOB. What do you suggest he do? [facility] 12-14-2023 Telephone encounter Note Message noted. I have no room for him today He will need to go to the ED [facility] 12-14-2023 Telephone encounter Note Patient notified and understands. [facility] 09-15-2023 Miscellaneous Notes Pt called and states he was wondering if his sample of RYBELSUS was ready. It is and he states he will pick it up. Picked up documented in this encounter [facility] 09-15-2023 Telephone encounter Note Pt called and states he was wondering if his sample of RYMATTSUS was ready. It is and he states he will pick it up. [facility] 09-15-2023 Telephone encounter Note Picked up [facility] 09-07-2023 History of Present illness Narrative IM PROGRESS NOTE Patient - Cristobal Garcia Age - 57 [facility]. - 1965 [id number] ASSESSMENT & PLAN 1. Type 2 diabetes mellitus without complication, without long-term current use of insulin ([facility]) - Goals of treatment reviewed with patient - Currently on metformin and sitagliptan - Repeat A1c to assess efficacy of treatment. Might be better with GLP-1 and SGLT-2 agents - Comprehensive metabolic panel; Future - Hemoglobin A1c; Future - Lipid profile; Future 2. Stage 3b chronic kidney disease ([facility]) - Repeat GFR - Renal protective strategies [...] (BMI) of 60.0 to 69.9 in adult ([facility]) - We reviewed importance of weight loss [...] Testing No results found. Merritt Thacker DO., [facility] Office: [phone] documented in this encounter [facility] 06-17-2023 Telephone encounter Note Sarah, patient called stated that he received two refund checks from [employer] He deposited the checks and then was told from his bank that they bounced. If you could look into this for me please, all I am seeing is that the refunds were sent out. Call back # [phone] [facility] 06-17-2023 Miscellaneous Notes Sarah, patient called stated that he received two refund checks from [employer] He deposited the checks and then was told from his bank that they bounced. If you could look into this for me please, all I am seeing is that the refunds were sent out. Call back # [phone] documented in this encounter [facility] Evaluation note Diagnosis Right shoulder pain, unspecified chronicity- Primary Chronic pain of both knees Chronic pain of both ankles Impingement of right shoulder documented in this encounter [facility]* Diagnosis Type 2 diabetes mellitus without complication, without long-term current use of insulin ([facility])- Primary Chronic combined systolic and diastolic CHF (congestive heart failure) ([facility]) Obesity, morbid ([facility]) Morbid obesity Stage 3b chronic kidney disease ([facility]) Encounter for screening for malignant neoplasm of prostate Encounter for immunization Primary osteoarthritis of right shoulder Non-seasonal allergic rhinitis, unspecified trigger [facility] Diagnosis Type 2 diabetes mellitus without complication, without long-term current use of insulin ([facility]) documented [facility]* Diagnosis Acute on chronic systolic congestive heart failure ([facility])- Primary Essential hypertension Unspecified essential hypertension Stage 3b chronic kidney disease ([facility]) Type 2 diabetes mellitus without complication, without long-term current use of insulin ([facility]) Obesity, morbid ([facility]) Morbid obesity documented [facility]* Diagnosis Type 2 diabetes mellitus without complication, without long-term current use of insulin ([facility])- Primary Stage 3b chronic kidney disease ([facility]) Essential hypertension Unspecified essential hypertension Class 3 severe obesity due to excess calories with serious comorbidity and body mass index (BMI) of 60.0 to 69.9 in adult ([facility]) Immunization due documented [facility]* Diagnosis Chronic combined systolic and diastolic CHF (congestive heart failure) ([facility])- Primary Type 2 diabetes mellitus without complication, without long-term current use of insulin ([facility]) Primary osteoarthritis of right shoulder Stage 3b chronic kidney disease ([facility]) Hyperlipidemia, unspecified hyperlipidemia type documented in [facility] encounter [facility]* Diagnosis Type 2 diabetes mellitus without complication, without long-term current use of insulin ([facility])- Primary Chronic combined systolic and diastolic CHF (congestive heart failure) ([facility]) Primary osteoarthritis of right shoulder Chronic right shoulder pain Pain in joint, shoulder region Primary osteoarthritis of both ankles documented in [facility] encounter [facility]* Diagnosis Type 2 diabetes mellitus without complication, without long-term current use of insulin ([facility]) documented [facility] encounter [facility]* Diagnosis Type 2 diabetes mellitus without complication, without long-term current use of insulin ([facility])- Primary Special screening for malignant neoplasm of colon Special screening for malignant neoplasms, colon Chronic combined systolic and diastolic CHF (congestive heart failure) ([facility]) Non-seasonal allergic rhinitis, unspecified trigger Primary osteoarthritis of right shoulder [facility] Diagnosis Type 2 diabetes mellitus without complication, without long-term current use of insulin ([facility]) Non-seasonal allergic rhinitis, unspecified trigger documented in [...] Diagnoses Chronic pain of both ankles Procedures MO OFFICE/OUTPATIENT NEW HIGH MDM 60 MINUTES Inna Jefferson NP [address] [place] [id number] Ivan Payne MD [address] [place] [address] [place] [address] Referral ID Status Reason Start Date Expiration Date Visits Requested Visits Authorized [id number] Pending Review Specialty Services Required 02/29/2024 08/27/2024 1 1 * Consultation (Routine) - Pending Review Specialty Diagnoses / Procedures Referred By Otoniel cruz Referred To Contact Pain Medicine Diagnoses Chronic pain of both knees Procedures MO OFFICE/OUTPATIENT NEW HIGH MDM 60 MINUTES Inna Jefferson NP [address] [facility] [address] [place] [address] Karel Blackwell MD [address] [place] [address] Referral ID Status Reason Start Date Expiration Date Visits Requested Visits Authorized [id number] Pending Review Specialty Services Required 02/29/2024 08/27/2024 1 1 * Clinic-Administered Medication (Routine) - Authorized Specialty Diagnoses / Procedures Referred By Otoniel rcuz Referred To Contact Orthopaedic Surgery Diagnoses Impingement of right shoulder Procedures L Inj/Asp: R subacromial bursa Inna Jefferson NP [address] [facility] [address] [place] [address] Referral ID Status Reason Start Date Expiration Date V isits Requested Visits Authorized [id number] Authorized 02/29/2024 08/27/2024 1 1 [facility] Consultation (Routine) - Pending Review Specialty Diagnoses / Procedures Referred By Otoniel cruz Referred To Contact Orthopedic Surgery / MED-SURG/ORTHOPEDICS Diagnoses Primary osteoarthritis of right shoulder Chronic right shoulder pain Primary osteoarthritis of both ankles Merritt Thacker DO [address] [place] [address] Kaveh Mayer DO [address] [facility] [address] [place] [address] Referral ID Status Reason Start Date Expiration Date Visits Requested Visits Authorized [id number] Pending Review Specialty Services Required 02/21/2024 02/20/2025 8 8 [facility] Summary Purpose Family History [...] complication, without long-term current use of insulin ([facility]) Merritt Thacker DO [address] [place] [address] Referral ID Status Reason Start Date Expiration Date Visits Re quested Visits Authorized [id number] Closed 1 1 Additional Source Comments (unrecognized sect ion and content) No Status Records FoundNo Status Records FoundNo Status Records FoundNo Status Records FoundNo Status Records FoundNo Status Records Found INFORMATION SOURCE (unrecogn ized section and content) DATE CREATED AUTHOR 10/11/2020 [facility] DATE CREATED AUTHOR AUTHOR'S ORGANIZ ATION 07/03/2022 [facility] DATE CREATED AUTHOR AUTHOR'S ORGANIZ ATION 03/02/2024 [facility] EPIC DATE CREATED AUTHOR AUTHOR'S ORGANIZ ATION 09/05/2024 [facility] DATE CREATED AUTHOR AUTHOR'S ORGANIZ ATION 09/05/2024 [facility] DATE CREATED AUTHOR AUTHOR'S ORGANIZ ATION 01/22/2025 [facility] Reason for Visit (unrecogniz ed section and content) Reason Onset Date Comments Refund Checks 06/17/2023 Reason Comments Pain Specialty Diagnoses / Procedures Referred By Otoniel cruz Referred To Contact Orthopaedic Surgery Diagnoses Primary osteoarthritis of right shoulder Chronic right shoulder pain Primary osteoarthritis of both ankles Procedures AMB REFERRAL TO ORTHOPEDIC SURGERY Merritt Thacker MD [address] [place] [address] Kaveh Mayer DO [address] [facility] [address] [place] [address] Referral ID Status Reason Start Date Expiration Date Visits Re quested Visits Authorized [id number] Closed 02/21/2024 02/20/2025 8 8 Reason Onset [...] Care Teams (unrecognized sec tion and content) Director Of Technology Relationship Specialty Start Date End Date Merritt Thacker MD [address] [place] [address] PCP - General Internal Medicine 03/28/23 Director Of Technology Relationship Specialty Start Date End Date Merritt Thacker MD [address] [place] [address] PCP - General Internal Medicine 03/28/23 Director Of Technology Relationship Specialty Start Date End Date Merritt Thacker MD [address] [place] [address] PCP - General Internal Medicine 03/28/23 Director Of Technology Relationship Specialty Start Date End Date Merritt Thacker MD [address] [place] [address] PCP - General Internal Medicine 03/28/23 Director Of Technology Relationship Specialty Start Date End Date Merritt Thacker DO [address] [place] [address] PCP - General Internal Medicine 01/12/23 Director Of Technology Relationship Specialty Start Date End Date Merritt Thacker DO [address] [place] [address] PCP - General Internal Medicine 01/12/23 Director Of Technology Relationship Specialty Start Date End Date Merritt Thacker DO [address] [place] [address] PCP - General Internal Medicine 01/12/23 Director Of Technology Relationship Specialty Start Date End Date Merritt Thacker DO [address] [place] [address] PCP - General Internal Medicine 01/12/23 Director Of Technology Relationship Specialty Start Date End Date Merritt Thacker DO [address] [place] [address] PCP - General Internal Medicine 01/12/23 Director Of Technology Relationship Specialty Start Date End Date Merritt Thacker DO [address] [place] [address] PCP - General Internal Medicine 01/12/23 Director Of Technology Relationship Specialty Start Date End Date Merritt Thacker DO [address] [place] [address] PCP - General Internal Medicine 01/12/23 Director Of Technology Relationship Specialty Start Date End Date Merritt Thacker DO [address] [place] [address] PCP - General Internal Medicine 01/12/23 Director Of Technology Relationship Specialty Start Date End Date Merritt Thacker DO [address] [place] [address] PCP - General Internal Medicine 01/12/23 Director Of Technology Relationship Specialty Start Date End Date Merritt Thacker DO [address] [facility] [address] PCP - General Internal Medicine 01/12/23 Director Of Technology Relationship Specialty Start Date End Date Merritt Thacker DO [address] [facility] [address] PCP - General Internal Medicine 01/12/23 Director Of Technology Relationship Specialty Start Date End Date Merritt Thacker DO [address] [facility] [address] PCP - General Internal Medicine 01/12/23 FOR [...] BE BASED ON THE PRIMARY CLINICAL RECORDS. [facility]. provides no warranty or guarantee of the accuracy or completeness of information in this document.
--- NOTE | 2025-03-11 17:51 | DIETREC ---
Recommend 2200 kcal CCD, Heart Healthy (includes 2 gm sodium) diet.
[2025-03-11] MEDS: ASPIRIN 81 MG TAB.CHEW PO (18:03)
[2025-03-11] MEDS: HEPARIN SODIUM (PORCINE) 5,000 UNIT/ML VIAL 5000 UNIT SUBQ (18:03)
[2025-03-11] MEDS: NITROGLYCERIN 0.1 MG/HR PATCH.TD24 1 PATCH TD (18:04)
[2025-03-11] MEDS: ATORVASTATIN CALCIUM 40 MG TABLET PO (21:36)
[2025-03-11] MEDS: CARVEDILOL 12.5 MG TABLET PO (21:36)
[2025-03-12] VITALS (19 sets, daily range): BP systolic 100–126; BP diastolic 60–72; PULSE 52–64; TEMP 36.3–36.6; O2SAT 89–94
[2025-03-12] MEDS: HEPARIN SODIUM (PORCINE) 5,000 UNIT/ML VIAL 5000 UNIT SUBQ ×3 (01:03→17:20)
[2025-03-12 01:55] LABS: Glucose Urine UA NEGATIVE (NEGATIVE)
[2025-03-12 02:12] LABS: Cast Seen? NONE SEEN #/LPF (NONE SEEN); Crystals Seen? None Seen #/HPF (None Seen); Starch Urine MODERATE
[2025-03-12 02:13] LABS: Urine Culture Indicated NO
[2025-03-12] MEDS: ACETAMINOPHEN 325 MG TABLET 650 MG PO (04:16)
[2025-03-12] MEDS: REMOVE PATCH 1 PATCH TOPICAL (05:37)
[2025-03-12 06:17] LABS: Hematocrit 43.7 % (42.0-54.0); Hemoglobin 12.7 g/dL (14.0-18.0); Immature Granulocytes Abs Auto 0.06 10^3/uL (0.00-0.03); Immature Granulocytes Pct Auto 0.5 % (0.0-0.5); Lymphocytes Absolute Auto 2.6 10^3/uL (1.2-3.8); Mean Corpuscular HGB Conc 29.1 g/dL (29.9-35.2); Mean Corpuscular Hemoglobin 24.9 pg (25.9-34.0); Mean Corpuscular Volume 85.5 fL (80.0-94.0); Platelet Count 241 10^3/uL (150-450); Red Blood Count 5.11 10^6/uL (4.70-6.10); White Blood Count 11.3 10^3/uL (4.0-11.0)
[2025-03-12 06:31] LABS: Alanine Aminotransferase 30 U/L (16-63); Albumin Globulin Ratio 0.8; Albumin Level 3.3 g/dL (3.4-5.0); Alkaline Phosphatase 92 U/L (46-116); Anion Gap 13.3; Aspartate Amino Transferase 16 U/L (15-37); Blood Urea Nitrogen 69.0 mg/dL (7.0-18.0); Calcium 8.3 mg/dL (8.5-10.1); Carbon Dioxide 31.2 mmol/L (21.0-32.0); Chloride 101 mmol/L (98-107); Estimated GFR (African America 42 (>=60 mL/min/1.73m^2); Estimated GFR (Non-African Ame 35 (>=60 mL/min/1.73m^2); Globulin 3.9 g/dL; Glucose 68 mg/dL (74-106); Potassium 4.5 mmol/L (3.5-5.1); Sodium 141 mmol/L (136-145); Total Protein 7.2 g/dL (6.4-8.2)
[2025-03-12] MEDS: FUROSEMIDE 40 MG/4 ML VIAL IVP ×3 (08:46→22:18)
[2025-03-12] MEDS: ASPIRIN 81 MG TAB.CHEW PO (08:46)
[2025-03-12] MEDS: CARVEDILOL 12.5 MG TABLET PO ×2 (08:46→21:33)
[2025-03-12] MEDS: FLU VACC TS2025-26(6MOS UP)/PF FLULAVAL 45 MCG/0.5 ML SYRINGE IM (08:48)
[2025-03-12] MEDS: PNEUMOC 20-VAL CONJ-DIP CRM/PF 0.5 ML SYRINGE IM (08:59)
--- NOTE | 2025-03-12 09:50 | CM.NOTE ---
Rounds made with Dr. He, discussed with pt diagnosis and plan of care. Pt inpatient status. Dr. He discussed with pt home sleep study, pt refuses at this time. Pt verbalizes understanding danger of not wearing CPAP.
--- NOTE | 2025-03-12 13:55 | PM.PN ---
Progress Note: Subjective Subjective Interval history: Pt was seen and evaluated at bedside. remained on IV lasix which has been increased today to help with further diuresis. Still on 2 L NC, however he feels breathing is better and legs less swollen. BP so far tolerating diuresis well. denies nausea, vomiting, diarrhea. has arthritic pain which is chronic in his shoulders and knees. Exam Narrative Exam Narrative: General:The patient appears well and in no apparent distress.Patient is resting comfortably, BMI 74.2. Skin:Warm, dry, no pallor noted.There is no rash noted. Head:Normocephalic, atraumatic Eye: Normal conjunctiva, no drainage Cardiovascular:Regular Rate and Rhythm Respiratory:Patient is in no distress, breath sounds are quite distant due to body habitus, diminished breath sounds. GI: Obese and not apparently tender Musculoskeletal: No joint swelling, leg edema + slightly improving Neurological:A&Ox3, normal speech Constitutional Vital Signs, click to edit/add: Last Vital Signs Temp 97.6 F 03/12/25 12:39 Pulse 57 L 03/12/25 12:39 Resp 20 03/12/25 08:00 BP 111/71 03/12/25 12:39 Pulse Ox 93 L 03/12/25 12:39 O2 Del Method Nasal Cannula 03/12/25 12:39 O2 Flow Rate 2 03/12/25 12:39 Progress Note: Objective Labs Labs: Short CBC 03/12/25 Range/Units 05:44 WBC 11.3 H (4.0-11.0) 10^3/uL Hgb 12.7 L (14.0-18.0) g/dL Hct 43.7 (42.0-54.0) % Plt Count 241 (150-450) 10^3/uL BMP 03/11/25 03/12/25 13:28 05:44 Sodium 140 141 Potassium 5.4 H 4.5 Chloride 101 101 Carbon Dioxide 27.5 31.2 BUN 71.0 H 69.0 H Creatinine 2.15 H 1.97 H Glucose 145 H 68 L Calcium 8.6 8.3 L Liver Function 03/12/25 Range/Units 05:44 Total Bilirubin 0.6 (0.2-1.0) mg/dL AST 16 (15-37) U/L ALT 30 (16-63) U/L Alkaline Phosphatase 92 (46-116) U/L Albumin 3.3 L (3.4-5.0) g/dL Urine 03/12/25 Range/Units 01:40 Urine Color Yellow (YELLOW) Urine Clarity Clear (CLEAR) Urine pH 5.5 (5.0-9.0) Ur Specific [place] 1.020 (1.005-1.025) Urine Protein Negative (NEG/TRACE) mg/dL Urine Glucose (UA) Negative (NEGATIVE) mg/dL Progress Note: A&P Assessment and Plan (1) Acute respiratory failure with hypoxia: (2) Acute kidney injury superimposed on CKD: (3) Acute on chronic diastolic CHF (congestive heart failure): (4) JACQUE (obstructive sleep apnea): (5) Obesity hypoventilation syndrome: Plan Acute hypoxic respiratory failure due to acute on chronic diastolic CHF exacerbation JACQUE, OHS -Healthy heart, sodium restriction -Increase IV Lasix to TID for further diuresis as directed -Most recent Echo 01/21> showed EF 55%, RV appears mildly dilated with normal systolic function -Monitor I/Os -Offered him CPAP/BiPAP but declined as usual. Does not seem interested in sleep study or PFTs. It has been ongoing issues. discussed with pt consequences of noncompliance with Noninvasive positive pressure ventilation, he verbalized understanding, advised to think about it for now. He does wear oxygen at night. RAMON on CKD likely due to CHF Mild Hyperkalemia - resolved -K level down to normal level -IV diuresis as directed -Continue to hold spironolactone and ANDREWS given risk of hyperkalemia and current RAMON -Monitor kidney function and K level -Repeat labs in am Patient was recently at PCP office and was dx with bronchitis and given Augmentin and prednisone, however he ended up here, clinically seems more consistent with CHF at this time, will keep those on hold and continue IV diuretics. DVT ppx: Heparin Diet: healthy heart Discussed with pt at bedside, all questions asnwered
[2025-03-12] MEDS: NITROGLYCERIN 0.1 MG/HR PATCH.TD24 1 PATCH TD (17:21)
[2025-03-12] MEDS: HYDROCODONE/ACET 5-325 MG TABLET 1 TAB PO (19:38)
[2025-03-12] MEDS: ATORVASTATIN CALCIUM 40 MG TABLET PO (21:34)
[2025-03-12] MEDS: ENOXAPARIN SODIUM 60 MG/0.6 ML SYRINGE SUBQ (22:18)
[2025-03-13] VITALS (19 sets, daily range): BP systolic 96–129; BP diastolic 60–75; PULSE 58–71; TEMP 36.4–36.7; O2SAT 91–93
[2025-03-13 05:30] LABS: Hematocrit 38.7 % (42.0-54.0); Hemoglobin 11.4 g/dL (14.0-18.0); Mean Corpuscular HGB Conc 29.5 g/dL (29.9-35.2); Mean Corpuscular Hemoglobin 25.0 pg (25.9-34.0); Mean Corpuscular Volume 84.9 fL (80.0-94.0); Platelet Count 197 10^3/uL (150-450); Red Blood Count 4.56 10^6/uL (4.70-6.10); White Blood Count 9.4 10^3/uL (4.0-11.0)
[2025-03-13] MEDS: REMOVE PATCH 1 PATCH TOPICAL (05:32)
[2025-03-13 05:51] LABS: Anion Gap 13.0; Calcium 7.9 mg/dL (8.5-10.1); Carbon Dioxide 30.0 mmol/L (21.0-32.0); Chloride 102 mmol/L (98-107); Estimated GFR (African America 36 (>=60 mL/min/1.73m^2); Estimated GFR (Non-African Ame 30 (>=60 mL/min/1.73m^2); Glucose 75 mg/dL (74-106); Potassium 5.0 mmol/L (3.5-5.1); Sodium 140 mmol/L (136-145)
[2025-03-13 06:19] LABS: Blood Urea Nitrogen 76.0 mg/dL (7.0-18.0)
--- NOTE | 2025-03-13 06:46 | PM.EN ---
Event Note Event Note: Remote hospitalist night coverage Nurse notified me this AM of rising BUN and Creat. I reviewed his record. I will hold his Lasix injection until volume status is assessed by my colleague day shift Dr Colton rand. I also reduced Coreg dose and placed holding parameters to prevent hypotention or bradycardia
[2025-03-13] MEDS: ENOXAPARIN SODIUM 60 MG/0.6 ML SYRINGE SUBQ ×2 (08:32→21:36)
[2025-03-13] MEDS: ASPIRIN 81 MG TAB.CHEW PO (08:32)
[2025-03-13] MEDS: CARVEDILOL 3.125 MG TABLET PO ×2 (08:37→21:36)
--- NOTE | 2025-03-13 09:39 | PC.NURSE ---
Dr. He notified of EF
--- NOTE | 2025-03-13 10:00 | CM.NOTE ---
Rounds made with Dr. He, no discharge today. Continue treatment as ordered.
--- NOTE | 2025-03-13 11:31 | SWNOTE1 ---
SW met with pt to discuss dc needs. Pt lives at home by himself. Pt was set up with home oxygen from [facility] in December of this year. Pt wears 2 liters continuous. Pt does not have any services coming in to the home at this time. Pt denies any discharge needs at this time. Pt has attempted several times during his last visit to set up home health services, but pt has refused. Pt was falling asleep during conversation. SW to stop back in later today or tomorrow to follow up with any services at discharge.
--- NOTE | 2025-03-13 11:33 | SWNOTE1 ---
Important Message from Medicare reviewed and discussed with patient. Pt. verbalized understanding and signed the form. Original given to patient and copy placed in patient?s chart.
--- NOTE | 2025-03-13 12:32 | PM.PN ---
Progress Note: Subjective Subjective Interval history: Pt was seen and evaluated at bedside. kidney function a bit worse today. BP was borderline. He appears somnolent, sleeping in his recliner, 91% on RA. Lasix was held given his borderline BP and slightly increase in bun/Cr. Exam Narrative Exam Narrative: General:The patient appears well and in no apparent distress. somnolent in bed. BMI 74.2. Skin: Warm, dry, no pallor noted.There is no rash noted. Head: Normocephalic, atraumatic Eye: Normal conjunctiva, no drainage Cardiovascular:Regular Rate and Rhythm Respiratory:Patient is in no distress, breath sounds are quite distant due to body habitus, diminished breath sounds. GI: Obese and not apparently tender Musculoskeletal: No joint swelling, leg edema + slightly improving Neurological:somnolent but A&Ox3, normal speech Constitutional Vital Signs, click to edit/add: Last Vital Signs Temp 97.8 F 03/13/25 07:56 Pulse 68 03/13/25 12:00 Resp 18 03/13/25 07:56 BP 116/75 03/13/25 07:56 Pulse Ox 91 L 03/13/25 07:56 O2 Del Method Room Air 03/13/25 07:56 O2 Flow Rate 2 03/13/25 04:00 Progress Note: Objective Labs Labs: Short CBC 03/13/25 Range/Units 05:15 WBC 9.4 (4.0-11.0) 10^3/uL Hgb 11.4 L (14.0-18.0) g/dL Hct 38.7 L (42.0-54.0) % Plt Count 197 (150-450) 10^3/uL BMP 03/13/25 05:15 Sodium 140 Potassium 5.0 Chloride 102 Carbon Dioxide 30.0 BUN 76.0 H* Creatinine 2.27 H Glucose 75 Calcium 7.9 L Progress Note: A&P Assessment and Plan (1) Acute respiratory failure with hypoxia: (2) Acute kidney injury superimposed on CKD: (3) Acute on chronic diastolic CHF (congestive heart failure): (4) JACQUE (obstructive sleep apnea): (5) Obesity hypoventilation syndrome: Plan Acute hypoxic respiratory failure due to acute on chronic diastolic CHF exacerbation JACQUE, OHS -Healthy heart, sodium restriction -Lasix held due to borderline BP and increase Bun/Cr. -Coreg dose was reduced as well. -Most recent Echo 01/21> showed EF 55%, RV appears mildly dilated with normal systolic function -Monitor I/Os -Offered him CPAP/BiPAP but declined as usual. Does not seem interested in sleep study or PFTs. It has been ongoing issues. discussed with pt consequences of noncompliance with Noninvasive positive pressure ventilation, he verbalized understanding, advised to think about it for now. He does wear oxygen at night. RAMON on CKD likely due to CHF Mild Hyperkalemia - resolved -Diuresis on hold since kidney function a bit worse today. -Its very challenging to assess his actual volume status given his body habitus. -Continue to hold spironolactone and ANDREWS given risk of hyperkalemia and current RAMON -Monitor kidney function and K level -Repeat labs in am Patient was recently at PCP office and was dx with bronchitis and given Augmentin and prednisone, however he ended up here, clinically seems more consistent with CHF at this time, will keep those on hold and continue IV diuretics. DVT ppx: Heparin Diet: healthy heart Discussed with pt at bedside, all questions answered
[2025-03-13 13:50] LABS: NT Pro B Type Natriuretic Pept 2959.0 pg/mL (<=900.0)
[2025-03-13] MEDS: HYDROCODONE/ACET 5-325 MG TABLET 1 TAB PO (16:37)
[2025-03-13] MEDS: NITROGLYCERIN 0.1 MG/HR PATCH.TD24 1 PATCH TD (16:37)
[2025-03-13] MEDS: ATORVASTATIN CALCIUM 40 MG TABLET PO (21:36)
[2025-03-14] VITALS (20 sets, daily range): BP systolic 103–142; BP diastolic 51–73; PULSE 18–80; TEMP 36.1–37; O2SAT 92–94
[2025-03-14 06:02] LABS: Hematocrit 38.7 % (42.0-54.0); Hemoglobin 11.6 g/dL (14.0-18.0); Mean Corpuscular HGB Conc 30.0 g/dL (29.9-35.2); Mean Corpuscular Hemoglobin 25.1 pg (25.9-34.0); Mean Corpuscular Volume 83.8 fL (80.0-94.0); Platelet Count 159 10^3/uL (150-450); Red Blood Count 4.62 10^6/uL (4.70-6.10); White Blood Count 7.8 10^3/uL (4.0-11.0)
[2025-03-14] MEDS: REMOVE PATCH 1 PATCH TOPICAL (06:13)
[2025-03-14 06:17] LABS: Anion Gap 10.3; Blood Urea Nitrogen 66.0 mg/dL (7.0-18.0); Calcium 8.0 mg/dL (8.5-10.1); Carbon Dioxide 30.0 mmol/L (21.0-32.0); Chloride 107 mmol/L (98-107); Estimated GFR (African America 51 (>=60 mL/min/1.73m^2); Estimated GFR (Non-African Ame 42 (>=60 mL/min/1.73m^2); Glucose 97 mg/dL (74-106); Potassium 5.3 mmol/L (3.5-5.1); Sodium 142 mmol/L (136-145)
[2025-03-14] MEDS: ASPIRIN 81 MG TAB.CHEW PO (10:16)
[2025-03-14] MEDS: ENOXAPARIN SODIUM 60 MG/0.6 ML SYRINGE SUBQ ×2 (10:17→21:50)
[2025-03-14] MEDS: CARVEDILOL 3.125 MG TABLET PO ×2 (10:17→21:50)
[2025-03-14] MEDS: INSULIN ASPART 300 UNIT/3 ML PEN SUBQ ×2 (11:54→17:16)
--- NOTE | 2025-03-14 12:06 | PM.PN ---
Progress Note: Subjective Subjective Interval history: Pt was seen and evaluated at bedside. kidney function improving today. BP and HR stable. Resp garduno seems stable. Exam Narrative Exam Narrative: General:The patient appears well and in no apparent distress. somnolent in bed. BMI 72.2. Skin: Warm, dry, no pallor noted.There is no rash noted. Head: Normocephalic, atraumatic Eye: Normal conjunctiva, no drainage Cardiovascular:Regular Rate and Rhythm Respiratory:Patient is in no distress, breath sounds are quite distant due to body habitus, diminished breath sounds. GI: Obese and not apparently tender Musculoskeletal: No joint swelling, leg edema + slightly improving Neurological:somnolent but A&Ox3, normal speech Constitutional Vital Signs, click to edit/add: Last Vital Signs Temp 98.3 F 03/14/25 08:19 Pulse 68 03/14/25 11:35 Resp 18 03/14/25 09:37 BP 103/64 03/14/25 08:19 Pulse Ox 93 L 03/14/25 11:32 O2 Del Method Nasal Cannula 03/14/25 11:32 O2 Flow Rate 2 03/14/25 11:32 Progress Note: Objective Labs Labs: Short CBC 03/14/25 Range/Units 05:39 WBC 7.8 (4.0-11.0) 10^3/uL Hgb 11.6 L (14.0-18.0) g/dL Hct 38.7 L (42.0-54.0) % Plt Count 159 (150-450) 10^3/uL BMP 03/14/25 05:39 Sodium 142 Potassium 5.3 H Chloride 107 Carbon Dioxide 30.0 BUN 66.0 H Creatinine 1.68 H Glucose 97 Calcium 8.0 L Progress Note: A&P Assessment and Plan (1) Acute respiratory failure with hypoxia: (2) Acute kidney injury superimposed on CKD: (3) Acute on chronic diastolic CHF (congestive heart failure): (4) JACQUE (obstructive sleep apnea): (5) Obesity hypoventilation syndrome: Plan Acute hypoxic respiratory failure due to acute on chronic diastolic CHF exacerbation JACQUE, OHS -Healthy heart, sodium restriction -Lasix held due to borderline BP and increase Bun/Cr. continue to hold -Coreg dose was reduced as well. currently on 3.125 mg BID. -Most recent Echo 01/21> showed EF 55%, RV appears mildly dilated with normal systolic function -Monitor I/Os. -Offered him CPAP/BiPAP but declined as usual. Does not seem interested in sleep study or PFTs. It has been ongoing issues. discussed with pt consequences of noncompliance with Noninvasive positive pressure ventilation, he verbalized understanding, advised to think about it for now. He does wear oxygen at night. His refusal to do so, does increase his mortality and future cardiac and pulmonary complications. -Will consult cardiology here for any additional input RAMON on CKD likely due to CHF Mild Hyperkalemia -Diuresis on hold -Kidney function recovering better today -Its very challenging to assess his actual volume status given his body habitus. -Continue to hold spironolactone and ANDREWS given risk of hyperkalemia and current RAMON -Monitor kidney function and K level -Repeat labs in am Patient was recently at PCP office and was dx with bronchitis and given Augmentin and prednisone, however he ended up here, clinically seems more consistent with CHF at this time, will keep those on hold and continue IV diuretics. DVT ppx: Heparin Diet: healthy heart Discussed with pt at bedside, all questions answered
[2025-03-14] MEDS: HYDROCODONE/ACET 5-325 MG TABLET 1 TAB PO (13:14)
[2025-03-14] MEDS: NITROGLYCERIN 0.1 MG/HR PATCH.TD24 1 PATCH TD (18:18)
[2025-03-14] MEDS: ATORVASTATIN CALCIUM 40 MG TABLET PO (21:50)
[2025-03-15] VITALS (16 sets, daily range): BP systolic 94–153; BP diastolic 63–80; PULSE 68–79; TEMP 36.6–37.1; O2SAT 90–97
[2025-03-15 05:49] LABS: Hematocrit 40.6 % (42.0-54.0); Hemoglobin 12.2 g/dL (14.0-18.0); Mean Corpuscular HGB Conc 30.0 g/dL (29.9-35.2); Mean Corpuscular Hemoglobin 25.4 pg (25.9-34.0); Mean Corpuscular Volume 84.4 fL (80.0-94.0); Platelet Count 161 10^3/uL (150-450); Red Blood Count 4.81 10^6/uL (4.70-6.10); White Blood Count 8.9 10^3/uL (4.0-11.0)
[2025-03-15 05:55] LABS: Anion Gap 10.5; Blood Urea Nitrogen 47.0 mg/dL (7.0-18.0); Calcium 8.5 mg/dL (8.5-10.1); Carbon Dioxide 30.7 mmol/L (21.0-32.0); Chloride 107 mmol/L (98-107); Estimated GFR (African America >60 (>=60 mL/min/1.73m^2); Estimated GFR (Non-African Ame 57 (>=60 mL/min/1.73m^2); Glucose 144 mg/dL (74-106); Potassium 5.2 mmol/L (3.5-5.1); Sodium 143 mmol/L (136-145)
[2025-03-15] MEDS: INSULIN ASPART 300 UNIT/3 ML PEN SUBQ ×2 (08:40→21:40)
[2025-03-15] MEDS: ENOXAPARIN SODIUM 60 MG/0.6 ML SYRINGE SUBQ ×2 (08:41→21:39)
[2025-03-15] MEDS: CARVEDILOL 3.125 MG TABLET PO (08:41)
[2025-03-15] MEDS: ASPIRIN 81 MG TAB.CHEW PO (08:41)
--- NOTE | 2025-03-15 10:15 | CM.NOTE ---
Rounds made with Dr. He, pt will discharge to home today after cloth sander consults with pt. Pt has home oxygen. Pt denies need for any home services, pt ambulatory and able to perform ADL's.
[2025-03-15] MEDS: HYDROCODONE/ACET 5-325 MG TABLET 1 TAB PO ×2 (14:41→23:57)
--- NOTE | 2025-03-15 16:39 | PM.PN ---
Progress Note: Subjective Subjective Interval history: Pt was seen and evaluated at bedside. kidney function improving today and back to baseline. BP and HR stable. Resp garduno seems stable. Exam Narrative Exam Narrative: General:The patient appears well and in no apparent distress. somnolent in bed. BMI 72.2. Skin: Warm, dry, no pallor noted.There is no rash noted. Head: Normocephalic, atraumatic Eye: Normal conjunctiva, no drainage Cardiovascular:Regular Rate and Rhythm Respiratory:Patient is in no distress, breath sounds are quite distant due to body habitus, diminished breath sounds. GI: Obese and not apparently tender Musculoskeletal: No joint swelling, leg edema + slightly improving Neurological:somnolent but A&Ox3, normal speech Constitutional Vital Signs, click to edit/add: Last Vital Signs Temp 97.8 F 03/15/25 12:00 Pulse 69 03/15/25 16:00 Resp 18 03/15/25 12:00 BP 123/69 03/15/25 12:00 Pulse Ox 93 L 03/15/25 12:00 O2 Del Method Nasal Cannula 03/15/25 12:00 O2 Flow Rate 2 03/15/25 12:00 Progress Note: Objective Labs Labs: Short CBC 03/15/25 Range/Units 04:58 WBC 8.9 (4.0-11.0) 10^3/uL Hgb 12.2 L (14.0-18.0) g/dL Hct 40.6 L (42.0-54.0) % Plt Count 161 (150-450) 10^3/uL BMP 03/15/25 04:58 Sodium 143 Potassium 5.2 H Chloride 107 Carbon Dioxide 30.7 BUN 47.0 H Creatinine 1.29 Glucose 144 H Calcium 8.5 Progress Note: A&P Assessment and Plan (1) Acute respiratory failure with hypoxia: (2) Acute kidney injury superimposed on CKD: (3) Acute on chronic diastolic CHF (congestive heart failure): (4) JACQUE (obstructive sleep apnea): (5) Obesity hypoventilation syndrome: Plan Acute hypoxic respiratory failure due to acute on chronic diastolic CHF exacerbation JACQUE, OHS -Healthy heart, sodium restriction -Lasix held due to borderline BP and increase Bun/Cr. Pt approached euvolemic. -Coreg dose was reduced as well. currently on 3.125 mg BID. -Most recent Echo 01/21> showed EF 55%, RV appears mildly dilated with normal systolic function -Monitor I/Os. -Offered him CPAP/BiPAP but declined as usual. Does not seem interested in sleep study or PFTs. It has been ongoing issues. discussed with pt consequences of noncompliance with Noninvasive positive pressure ventilation, he verbalized understanding, advised to think about it for now. He does wear oxygen at night. His refusal to do so, does increase his mortality and future cardiac and pulmonary complications. -Will consult cardiology here for any additional input RAMON on CKD likely due to CHF Mild Hyperkalemia -Diuresis on hold -Kidney function recovering better today -Its very challenging to assess his actual volume status given his body habitus. -Continue to hold spironolactone and ANDREWS given risk of hyperkalemia and current RAMON -Monitor kidney function and K level -Repeat labs in am Patient was recently at PCP office and was dx with bronchitis and given Augmentin and prednisone, however he ended up here, clinically seems more consistent with CHF at this time, will keep those on hold and continue IV diuretics. DVT ppx: Heparin Diet: healthy heart Discussed with pt at bedside, all questions answered Final recs as per cardiology
--- NOTE | 2025-03-15 17:46 | NUTR.NU ---
Provided therapeutic diet education: Heart Healthy (low fat, low sodium, low caffeine) and diabetic diet guidelines. Will follow up PRN.
--- NOTE | 2025-03-15 19:25 | PM.CACN ---
History of Present Illness History of Present Illness Consult date: 03/15/25 Requesting physician: FRANK SUMMERS Consult reason: congestive heart failure Chief complaint: RAMON CHI Narrative: This is a 59-year-old man with prior medical history significant for chronic heart failure with preserved ejection fraction, diabetes, hypertension, chronic kidney disease and morbid obesity with BMI around 72. He is admitted to the hospital with worsening shortness of breath and lower extremity edema. He is found to have acute on chronic renal insufficiency. He was found to have significantly elevated BNP. He was managed with intravenous diuresis. His renal function improved over the course of the past several days. He denies chest pain and palpitations. His breathing has improved, currently NYHA class II symptoms. He has improved but still significant lower extremity edema. Recent echocardiogram January 03, 2025 showed preserved LV systolic function. No significant valvular dysfunction. Review of Systems ROS Status of ROS 10 or more systems reviewed and unremarkable except as noted in history and below Cardiovascular Reports: edema, shortness of breath with exertion and shortness of breath when lying down; Denies: chest pain Respiratory Reports: shortness of breath [facility] Medical History Acute systolic (congestive) heart failure ?I50.21 - Acute systolic (congestive) heart failure (ICD-10) Morbid obesity ?E66.01 - Morbid (severe) obesity due to excess calories (ICD-10) Acute on chronic congestive heart failure ?I50.9 - Heart failure, unspecified (ICD-10) Acute combined systolic (congestive) and diastolic (congestive) heart failure ?I50.41 - Acute combined systolic (congestive) and diastolic (congestive) heart failure (ICD-10) Diabetes mellitus type 2 with complications ?E11.8 - Type 2 diabetes mellitus with unspecified complications (ICD-10) Anemia in chronic kidney disease ?N18.9 - Chronic kidney disease, unspecified (ICD-10) ?D63.1 - Anemia in chronic kidney disease (ICD-10) Chronic kidney disease, stage III (moderate) ?N18.30 - Chronic kidney disease, stage 3 unspecified (ICD-10) COPD (chronic obstructive pulmonary disease) ?J44.9 - Chronic obstructive pulmonary disease, unspecified (ICD-10) Moderate protein-calorie malnutrition ?E44.0 - Moderate protein-calorie malnutrition (ICD-10) Hypertension ?I10 - Essential (primary) hypertension (ICD-10) Pulmonary edema ?J81.1 - Chronic pulmonary edema (ICD-10) Anasarca ?R60.1 - Generalized edema (ICD-10) Abnormal colonoscopy ?R93.3 - Abnormal findings on diagnostic imaging of other parts of digestive tract (ICD-10) Surgical History History of appendectomy ?Z90.49 - Acquired absence of other specified parts of digestive tract (ICD-10) Family History Father Diabetes Mother CHF (congestive heart failure) Other Family history of CHF (congestive heart failure) Family history of diabetes mellitus Family history of hypertension Social History Within the past year, how often did you have a drink containing alcohol: never Within the past year, how often did you have six or more drinks on one occasion: never Score interpretation: A score less than 4 is consistent with normal alcohol consumption. Smoking status: Never smoker Second hand tobacco smoke exposure: No Non-prescribed substance use: denies use Previous occupational history: retired Known occupational exposures/hazards: No Highest level of school completed/degree received: high school graduate Are you now , , , , never or living with a partner: never In a typical week, how many times do you talk on the telephone with family, friends, or neighbors: 3 or more times per week How often do you get together with friends or relatives: 3 or more times per week How often do you attend jew or islam services: never Do you belong to any clubs or organizations such as jew groups unions, fraternal or athletic groups, or school groups: no Total score: 1 Score interpretation: A score of less than or equal to 1 indicates the most socially isolated. Little interest or pleasure in doing things: not at all Feeling down, depressed, or hopeless: not at all Feel stressed/tense/nervous/anxious/difficulty sleeping: not at all Due to disability, difficulty making decisions: No Do you think of yourself as: straight/heterosexual Gender Identity: male Meds Home Medications and Allergies Home Medications ?Medication ?Instructions ?Recorded ?Confirmed ?Type metformin 1,000 mg tablet 1,000 mg PO BID 12/16/23 03/11/25 History albuterol sulfate 90 mcg/actuation 2 inh inhalation Q4H PRN shortness 12/18/23 03/11/25 Rx aerosol inhaler of breath or wheezing #6.7 grams aspirin 81 mg chewable tablet 81 mg PO QD #30 tabs 01/09/24 03/11/25 Rx atorvastatin 40 mg tablet 40 mg PO QHS #60 tabs 01/09/24 03/11/25 Rx carvedilol 12.5 mg tablet 12.5 mg PO BID #60 tabs 01/09/24 03/11/25 Rx cetirizine 10 mg tablet 10 mg PO QAM 12/11/24 03/11/25 History furosemide 40 mg tablet 40 mg PO DAILY 12/11/24 03/11/25 History magnesium oxide 400 mg (241.3 mg 250 mg PO DAILY 12/11/24 03/11/25 History magnesium) tablet losartan 50 mg tablet 50 mg PO DAILY 12/31/24 03/11/25 History spironolactone 25 mg tablet 25 mg PO BID #60 tabs 01/07/25 03/11/25 Rx amoxicillin 875 mg-potassium 1 tab PO Q12H 03/11/25 03/11/25 History clavulanate 125 mg tablet glimepiride 2 mg tablet 2 mg PO .QD 03/11/25 03/11/25 History prednisone 20 mg tablet 60 mg PO .QD 03/11/25 03/11/25 History Allergies Allergy/AdvReac Type Severity Reaction Status Date / Time topiramate (From Topamax) AdvReac Intermediate Altered Verified 03/11/25 13:10 Sense of Taste Exam Constitutional Vital Signs, click to edit/add: Last Vital Signs Temp 97.8 F 03/15/25 16:00 Pulse 70 03/15/25 17:56 Resp 18 03/15/25 16:00 BP 127/80 03/15/25 16:00 Pulse Ox 97 03/15/25 16:00 O2 Del Method Nasal Cannula 03/15/25 16:00 O2 Flow Rate 2 03/15/25 16:00 Common normals: no apparent distress Nutritional appearance: obese Orientation/consciousness: Yes awake, Yes oriented to person, Yes oriented to place and Yes oriented to time HENMT Common normals: normocephalic Respiratory Common normals: normal respiratory effort Auscultation: clear to auscultation bilaterally Cardio Common normals: regular rate and regular rhythm Jugular venous distention: JVD (Unable to assess jugular venous pressure due to neck size) Heart sounds: other (Decreased heart sounds); no murmurs GI Inspection: normal to inspection and abdominal distension Extremity General: edema (+2 bilateral pitting edema) Neuro Common normals: oriented x3, moves all extremities and no focal motor deficits Sensorium/orientation: awake, alert and oriented to person Psych Insight: insight good Judgement: judgment good Results Labs and Meds Lab results: CBC 03/15/25 Range/Units 04:58 WBC 8.9 (4.0-11.0) 10^3/uL RBC 4.81 (4.70-6.10) 10^6/uL Hgb 12.2 L (14.0-18.0) g/dL Hct 40.6 L (42.0-54.0) % Plt Count 161 (150-450) 10^3/uL Comprehensive Metabolic Panel 03/15/25 Range/Units 04:58 Sodium 143 (136-145) mmol/L Potassium 5.2 H (3.5-5.1) mmol/L Chloride 107 (98-107) mmol/L Carbon Dioxide 30.7 (21.0-32.0) mmol/L BUN 47.0 H (7.0-18.0) mg/dL Creatinine 1.29 (0.70-1.30) mg/dL Glucose 144 H (74-106) mg/dL Calcium 8.5 (8.5-10.1) mg/dL Intake and Output 03/15/25 03/15/25 03/15/25 07:59 15:59 23:59 Intake Total 1050 / 1750 300 / 300 Output Total 900 / 4625 Balance 150 / -2875 300 / 300 Intake: Oral 1050 / 1750 300 / 300 Output: Urine 900 / 4625 EKG Interpretation EKG: sinus rhythm Assessment and Plan Assessment and Plan (1) Acute respiratory failure with hypoxia: (2) Acute kidney injury superimposed on CKD: (3) Acute on chronic diastolic CHF (congestive heart failure): (4) JACQUE (obstructive sleep apnea): (5) Obesity hypoventilation syndrome: Plan Acute on chronic diastolic heart failure: This has been a complex and recurrent issue for him. This is his third admission for decompensated heart failure in the past few months. On exam currently he still has evidence of volume overload. He did improve compared to admission day. His renal function has improved significantly. At this time I recommend diuresis with p.o. Lasix 40 mg twice daily and spironolactone 25 mg once daily. Previously we had placed him on Farxiga but it appears that it did not feature in his home medications. There is some element of unclear adherence to medical therapy. I educated him regarding heart failure and recommended to reduce salt intake as much as possible and to monitor fluid intake and output as well as daily weights. One of his major complicating factors is his severe obesity. After discharge he should get a BMP in 3 days to follow-up on kidney function given his CKD and recent RAMON. I gave him a prescription for that. I will make arrangements for him to be seen in the cardiology clinic next week.
[2025-03-15] MEDS: CARVEDILOL 6.25 MG TABLET PO (21:39)
[2025-03-15] MEDS: ATORVASTATIN CALCIUM 40 MG TABLET PO (21:39)
[2025-03-16] VITALS (13 sets, daily range): BP systolic 121–167; BP diastolic 69–76; PULSE 71–85; TEMP 36.4–37; O2SAT 90–94
[2025-03-16] MEDS: HYDROCODONE/ACET 5-325 MG TABLET 1 TAB PO (09:44)
[2025-03-16] MEDS: FUROSEMIDE 40 MG TABLET PO (09:44)
[2025-03-16] MEDS: ASPIRIN 81 MG TAB.CHEW PO (09:45)
[2025-03-16] MEDS: CARVEDILOL 6.25 MG TABLET PO (09:45)
[2025-03-16] MEDS: ENOXAPARIN SODIUM 60 MG/0.6 ML SYRINGE SUBQ (09:45)
[2025-03-16 11:02] LABS: Anion Gap 8.4; Blood Urea Nitrogen 28.0 mg/dL (7.0-18.0); Calcium 8.3 mg/dL (8.5-10.1); Carbon Dioxide 34.6 mmol/L (21.0-32.0); Chloride 106 mmol/L (98-107); Estimated GFR (African America >60 (>=60 mL/min/1.73m^2); Estimated GFR (Non-African Ame >60 (>=60 mL/min/1.73m^2); Glucose 175 mg/dL (74-106); Potassium 5.0 mmol/L (3.5-5.1); Sodium 144 mmol/L (136-145)
--- NOTE | 2025-03-16 11:38 | PM.DS1 ---
DS: Providers Provider Date of admission: 03/11/25 16:22 Primary care physician: Denys Breen MD Consults: 03/14/25 12:07 Consult to Cardiology Routine Reason for consultation: CHF DS: Diagnosis Discharge Diagnosis (1) Acute respiratory failure with hypoxia: (2) Acute kidney injury superimposed on CKD: (3) Acute on chronic diastolic CHF (congestive heart failure): (4) JACQUE (obstructive sleep apnea): (5) Obesity hypoventilation syndrome: Plan as above DS: Summary Hospital Course Hospital Course: This is a 59-year-old man with complex medical history including very morbid obesity with BMI 75, diabetes, hypertension, kidney disease, and chronic heart failure who presented to ER due to worsening SOB. States he has been having worsening SOB over the past 4-5 days. Noted that he wakes up at night diaphoretic lately. denies chest pain, dizziness, lightheadedness. He wears oxygen at night time only according to him, denies CPAP/BiPAP use. reports compliance with meds. In ER, noted with RAMON on CKD, elevated BNP, CXR showing CHF, noted with desaturation in ER 88% on RA, usually not on oxygen, K noted 5.4. Patient was placed on oxygen in ER, given IV Lasix 40 mg x 1. Decision was made to admit him for acute hypxic respiratory failure due to CHF exacerbation. assessment and plan as listed below: Acute hypoxic respiratory failure due to acute on chronic diastolic CHF exacerbation JACQUE, OHS -Healthy heart, sodium restriction -Recieved IV Lasix while here. -Most recent Echo 01/21> showed EF 55%, RV appears mildly dilated with normal systolic function RAMON on CKD likely due to CHF - resolved Mild Hyperkalemia - resolved -No obvious signs of hyperkalemia related EKG changes -Received IV diuresis -Monitor kidney function and K level -Repeat labs in 3 days as outpatient and follow with your cardiology clinic. As of today, patient remained hemodynamically stable. Kidney function seems stable, K level WNL. Patient was seen by pharmacy care coordinator here and recommended Lasix 40 mg BID and Spironolactone 25 mg daily. And advised to follow up with PCP with blood work BMP. As of today, patient feels comfortable and in agreement with discharge plan at this time. Discussed with patient at bedside, all questions answered, patient in agreement and comfortable with the plan. Advised patient to follow-up with his PCP as outpatient. We discussed with patient multiple times during hospitalization regarding sleep study and compliance with BiPAP/CPAP. Patient continues to decline BiPAP/CPAP and would like to continue with his baseline nasal cannula that he already has at home. Cardiology input appreciated, advised to follow-up with pharmacy care coordinator as outpatient and maintain his follow-ups. Patient has multiple complex medical issues as listed above and others that are not listed. All appear to be stable at this time. Patient is feeling significantly better and feeling comfortable with this plan of discharge. I do not have any clear or strong clinical justification to extend inpatient hospitalization. Patient however will require close and the frequent monitoring as well as additional work-up, investigation and therapeutic intervention that could take place from this point on post discharge. That is to prevent relapse, decompensation, rehospitalization and other medical implications. Outpatient follow up as directed for continuity of care. Verbal and written discharge instructions will be provided to the patient. Time Spent with Patient Time attestation: Total time spent providing and/or coordinating discharge services: Time spent: greater than 30 minutes Exam Narrative Exam Narrative: General:The patient appears well and in no apparent distress. BMI 72.2. Skin: Warm, dry, no pallor noted.There is no rash noted. Head: Normocephalic, atraumatic Eye: Normal conjunctiva, no drainage Cardiovascular:Regular Rate and Rhythm Respiratory:Patient is in no distress, breath sounds are quite distant due to body habitus, diminished breath sounds. GI: Obese and not apparently tender Musculoskeletal: No joint swelling, leg edema + improving Neurological: A&Ox3, normal speech Constitutional Vital Signs, click to edit/add: Last Vital Signs Temp 97.7 F 03/16/25 06:59 Pulse 77 03/16/25 09:58 Resp 18 03/16/25 06:59 BP 167/71 H 03/16/25 09:39 Pulse Ox 92 L 03/16/25 11:13 O2 Del Method Nasal Cannula 03/16/25 11:13 O2 Flow Rate 2 03/16/25 11:13 DS: Data Data Completed and Pending Labs on day of discharge: Labs from last 24 hours 03/16/25 03/16/25 03/15/25 10:05 06:29 21:16 Sodium 144 Potassium 5.0 Chloride 106 Carbon Dioxide 34.6 H Anion Gap 8.4 BUN 28.0 H Creatinine 1.03 Est GFR ( Amer) >60 Est GFR (Non-Af Amer) >60 BUN/Creatinine Ratio 27.2 Glucose 175 H Calcium 8.3 L POC Glucose 134 H 167 H 03/15/25 12:06 Sodium Potassium Chloride Carbon Dioxide Anion Gap BUN Creatinine Est GFR ( Amer) Est GFR (Non-Af Amer) BUN/Creatinine Ratio Glucose Calcium POC Glucose 133 H Discharge Plan Discharge Disposition: Home, Self-Care Condition: Fair Discharge Medications: New furosemide 40 mg Tablet 40 mg PO BID Qty: 90 0RF spironolactone 25 mg tablet 25 mg PO DAILY Qty: 30 0RF Continued atorvastatin 40 mg Tablet 40 mg PO QHS Qty: 60 11RF carvedilol 12.5 mg Tablet 12.5 mg PO BID Qty: 60 11RF aspirin 81 mg Tablet,Chewable 81 mg PO QD Qty: 30 11RF metformin 1,000 mg tablet 1,000 mg PO BID albuterol sulfate 90 mcg/actuation HFA aerosol inhaler 2 inh inhalation Q4H PRN (Reason: shortness of breath or wheezing) Qty: 6.7 0RF cetirizine 10 mg tablet 10 mg PO QAM magnesium oxide 400 mg (241.3 mg magnesium) Tablet 250 mg PO DAILY glimepiride 2 mg tablet 2 mg PO .QD Rx Instructions: WITH BREAKFAST Held losartan 50 mg Tablet 50 mg PO DAILY Hold Instructions: hold for now Discontinued spironolactone 25 mg Tablet 25 mg PO BID Qty: 60 2RF furosemide 40 mg tablet 40 mg PO DAILY prednisone 20 mg tablet 60 mg PO .QD amoxicillin-pot clavulanate 875-125 mg tablet 1 tab PO Q12H Print Language: Latvian Forms: Portal Instructions Follow Up Appointments: Please have labs drawn prior to Dr Breen's appointment (order attached) Dr Breen [phone] Feb @ 10:45 [facility] cardiology @ [facility] Mar @ 9:40
[2025-03-16] MEDS: INSULIN ASPART 300 UNIT/3 ML PEN SUBQ (12:10)
== END 2025-03-16 13:22 | disposition home or self-care (01) | DRG 291 ==
LOC: ER 15:26 → MS 16:42
PROVIDERS: Admitting Provider Internal Medicine; Emergency Provider Emergency Medicine; PCP Family Medicine; Visit Provider Internal Medicine
DX: I13.0 Hypertensive heart and chronic kidney disease with heart failure and stage 1 through stage 4 chronic kidney disease, or unspecified chronic kidney disease (principal); I50.33 Acute on chronic diastolic (congestive) heart failure; J96.01 Acute respiratory failure with hypoxia; N17.9 Acute kidney failure, unspecified; E66.2 Morbid (severe) obesity with alveolar hypoventilation; Z68.45 Body mass index [BMI] 70 or greater, adult; N18.30 Chronic kidney disease, stage 3 unspecified; E11.22 Type 2 diabetes mellitus with diabetic chronic kidney disease; Z79.84 Long term (current) use of oral hypoglycemic drugs; E87.5 Hyperkalemia; Z79.899 Other long term (current) drug therapy; Z79.82 Long term (current) use of aspirin; J44.9 Chronic obstructive pulmonary disease, unspecified; Z90.49 Acquired absence of other specified parts of digestive tract; Z23 Encounter for immunization
CPT/HCPCS: 36415; 71045; 80048; 80053; 81001; 82948; 83880; 84484; 85025; 85027; 87804; 87811; 90677; 93005; 94761; 96374; 99285; J1644; J1650; J1938

== ENCOUNTER 2025-03-20 13:18 | Outpatient (OUT) | payer MEDICARE, SELFPAY ==
--- OUTSIDE RECORDS SUMMARY | 2025-03-20 13:27 | XMS_ITS | Clinical Summary ---
Author Organization [facility] Address [address] [place] [address] Care Team Providers Care Food Services Coordinator Name Role Phone Sandip Woo MD Primary Care Provider [phone] Allergies Active AllergyReactionsCriticalityNoted RryyJmupjqjxPiagitvmax00/30/2023 Medications MedicationSigDispense QuantityRefillsLast FilledStart DateEnd DateStatus amLODIPine (Norvasc) 5 MG tablet Active atorvastatin (Lipitor) 80 MG tablet Take 1 tablet every day by oral route at bedtime.Active ferrous sulfate 325 (65 Fe) MG tablet Take 1 tablet by mouth in the morning.Active diclofenac (Voltaren) 75 MG EC tablet Take 75 mg by mouth in the morning and 75 mg before bedtime.03/21/2023ctive warfarin (Coumadin) 5 MG tablet Take 1 tablet by mouth in the morning.Active metFORMIN (Glucophage) 1000 MG tablet Take 1,000 mg by mouth in the morning and 1,000 mg before bedtime.Active losartan (Cozaar) 50 MG tablet Take 50 mg by mouth in the morning.03/10/2023ctive triamterene-hydrochlorothiazide (Maxzide-25) 37.5-25 MG tablet Active tiZANidine (Zanaflex) 4 MG tablet Active SITagliptin (Januvia) 100 MG tablet Take 100 mg by mouth in the morning.03/10/2023ctive pregabalin (Lyrica) 300 MG capsule Take 1 capsule twice a day by oral route.Active potassium chloride (Klor-Con) 20 MEQ packet Take 1 packet every day by oral route.Active Phentermine-Topiramate (Qsymia) 3.75-23 MG capsule sustained-release 24 hr Take 1 capsule every day by oral route.Active pantoprazole (ProtoNix) 40 MG EC tablet Take 1 tablet twice a day by oral route.Active metoprolol succinate XL (Toprol-XL) 25 MG 24 hr tablet Take 25 mg by mouth in the morning and 25 mg in the evening.Active furosemide (Lasix) 20 MG tablet Active gabapentin (Neurontin) 300 MG capsule Take 300 mg by mouth in the morning and 300 mg in the evening and 300 mg before bedtime.04/27/2022ctive Family History Medical HistoryRelationNameCommentsDiabetesFatherHypertensionFatherHeart disease MotherHypertensionMotherRelationNameStatusCommentsFatherDeceasedMotherDeceased Social History Tobacco UseTypesPacks/DayYears UsedDateSmoking Tobacco: NeverSmokeless Tobacco: Never Tobacco Cessation:Counseling Given: Not Answered Alcohol UseStandard Drinks/WeekCommentsYes0 (1 standard drink = 0.6 oz pure alcohol)Sex and Gender InformationValueDate RecordedSex Assigned at BirthNot on fileLegal BhwQckk0608/11/2022 7:03 PM EDTGender IdentityNot on fileSexual OrientationNot on file Last Filed Vital Signs Vital SignReadingTime TakenCommentsBlood [id number] 12:00 PM EDT Pulse--Temperature--Respiratory Rate--Oxygen Saturation--Inhaled Oxygen Concentration--Wyrnjw943 kg (377 lb)09/15/2017 12:00 PM UEHDlnktl278.6 cm (5' 6 )09/15/2017 12:00 PM EDTBody Mass Index60.85009/15/2017 12:00 PM EDT Plan of Treatment Not on file Insurance Care Teams Team MemberRelationshipSpecialtyStart DateEnd Date Sandip Woo MD PCP - GeneralInternal Jwtphdkn53/30/23
--- OUTSIDE RECORDS SUMMARY | 2025-03-20 13:27 | XMS_ITS | Clinical Summary ---
Author Organization [employer] Address [id number] [address] [place] [address] Care Team Providers Care Supervisor Welding Equipment Repairer Name Role Phone Unavailable Primary Care Provider Unavailabl e Allergies Active AllergyReactionsCriticalityNoted DateCommentsTopiramateHeadache,Other (See Comments)05/17/2014 Severe headache Medications MedicationSigDispense QuantityRefillsLast FilledStart DateEnd DateStatus albuterol (PROVENTIL HFA;VENTOLIN HFA) 90 mcg/actuation inhaler INHALE 2 PUFFS BY MOUTH EVERY 4 HOURS NEEDED for SHORTNESS OF BREATH or FOR LBPGDKIC12/21/2024ctive aspirin 81 mg chewable tablet Indications:Chronic combined systolic and diastolic CHF (congestive heart failure) ([facility])Chew 1 tablet (81 mg total) and swallow in the morning. 90 tablet ctive magnesium oxide 250 mg tablet Indications:Chronic combined systolic and diastolic CHF (congestive heart failure) ([facility])Take 1 tablet (250 mg total) by mouth in the morning. 90 tablet 4Active atorvastatin (LIPITOR) 40 mg tablet Indications:Type 2 diabetes mellitus without complication, without long-term current use of insulin ([facility])Take 1 tablet (40 mg total) by mouth nightly. 90 tablet 5Active carvediloL (COREG) 12.5 mg tablet Indications:Chronic combined systolic and diastolic CHF (congestive heart failure) ([facility])Take 1 tablet (12.5 mg total) by mouth in the morning and 1 tablet (12.5 mg total) in the evening. Take with meals. 180 tablet 5Active furosemide (LASIX) 40 mg tablet Indications:Chronic combined systolic and diastolic CHF (congestive heart failure) ([facility])Take 1 tablet (40 mg total) by mouth daily. 30 tablet 1101/07/2025Active losartan (COZAAR) 50 mg tablet Indications:Chronic combined systolic and diastolic CHF (congestive heart failure) ([facility])Take 1 tablet (50 mg total) by mouth in the morning. 90 tablet 5Active spironolactone (ALDACTONE) 25 mg tablet Indications:Chronic combined systolic and diastolic CHF (congestive heart failure) ([facility])Take 1 tablet (25 mg total) by mouth in the morning. 90 tablet 5Active dapagliflozin propanediol (FARXIGA) 10 mg tablet Indications:Chronic combined systolic and diastolic CHF (congestive heart failure) ([facility])Take 1 tablet (10 mg total) by mouth in the morning. 120 tablet 5Active baclofen 5 mg tablet Indications:Primary osteoarthritis of right shoulderTake 2 tablets by mouth 2 (two) times a day as needed (back spasm).5Active metFORMIN (GLUCOPHAGE) 1000 mg tablet Indications:Type 2 diabetes mellitus without complication, without long-term current use of insulin ([facility])TAKE 1 TABLET BY MOUTH TWICE DAILY (IN THE MORNING and BEFORE bedtime) 180 tablet 5Active cetirizine (ZyrTEC) 10 mg tablet Indications:Non-seasonal allergic rhinitis, unspecified triggerTake 1 tablet (10 mg total) by mouth in the morning. 30 tablet 5Active Active Problems ProblemNoted DateDiagnosed DateChronic combined systolic and diastolic CHF (congestive heart failure)01/16/2024Stage 3b chronic kidney gblotsk2403/10/2023 Gusrskvqzfbgwa15/12/2023Type 2 diabetes mellitus without complication, without long-term current use of ibtpdwo2503/10/2023Essential xebkzgzdjqlc03/12/2023 Rotator cuff syndrome of right afrhnhde10/12/2023Obesity, apwhyw5801/10/2023 Resolved Problems ProblemNoted DateDiagnosed DateResolved DateAcute on chronic systolic congestive heart Encounters DateTypeDepartmentCare JyujIyyvsmvyxmw08/02/2025Refill [facility] [address] [place] [phone] Sandip Woo, DO Type 2 diabetes mellitus without complication, without long-term current use of insulin ([facility]); Chronic combined systolic and diastolic CHF (congestive heart failure) ([facility]) 02/15/2025Telephone [facility] [address] [place] [address] Noemi Caraballo, [facility] Colon Cancer Xpkvwcquj85/11/2025Orders Only [facility] [address] [place] [phone] Ref Prov, Not In System from Last 3 Months Immunizations ImmunizationAdministration DatesNext DueInfluenza, Injectable, quadrivalent (PF) 03/10/2023Influenza, Trivalent, Cyvinhdkjx29/07/9895Jjdw97/12/2023 Family History Medical HistoryRelationNameCommentsDiabetesFatherHeart failureFatherHeart failureMotherRelationNameStatusCommentsFatherDeceasedMotherDeceased Social History Tobacco UseTypesPacks/DayYears UsedDateSmoking Tobacco: NeverSmokeless Tobacco: Never Tobacco Cessation:Counseling Given: Not Answered Alcohol UseStandard Drinks/WeekCommentsYes2 (1 standard drink = 0.6 oz pure alcohol)rarePHQ-2AnswerDate RecordedTotal Hydwh971hildcareAnswerDate NxkbkmneKvhiocsymGyrajwd39/13/2020EmploymentAnswerDate RecordedEmploymentUnknown 04/11/2020Hunger ScreeningAnswerDate RecordedWithin the past 12 months we worried whether our food would run out before we got money to buy more.Never True09/03/2024Within the past 12 months the food we bought just didn't last and we didn't have money to get more.Never True09/03/2024Purpose - LifeAnswerDate RecordedPurpose and direction in ptjaOvvhorp23/11/2021ex and Gender Information ValueDate RecordedSex Assigned at BirthNot on fileLegal LlpIocs6001/02/2015 11:32 AM EDTGender IdentityNot on fileSexual OrientationNot on file Last Filed Vital Signs Vital SignReadingTime TakenCommentsBlood Zrwiwdwo270/7004 1:48 PM EDTbp cuff not big dddwxsVbmso6764/07/2025 1:48 PM INWEnqxeeunbdq21.4 ??C (97.5 ??F) 09/03/2024 1:48 PM EDTRespiratory Bfoh8178 1:48 PM EDTOxygen Saturation 91%09/03/2024 1:48 PM EDTInhaled Oxygen Concentration--Qicfvm683.3 kg (410 lb 12.8 oz)09/03/2024 1:48 PM LCZMdfbex502.6 cm (5' 6 )09/03/2024 1:48 PM EDTBody Mass Index66.304 1:48 PM EDT Plan of Treatment Health MaintenanceDue DateLast DoneCommentsDiabetic Ophthalmology Exam1964 Adult BMI Follow Up Plan1982Zoster (Shingles) Vaccine (1 of 2)2014 Diabetic Foot Exam/Influenza Mneljml50/11/2024, 03/10/2023epression Vldtqbkzv20Statin Use: Yqmtsmwj02/07/2026 06/05/2024dult BMI Ipbajkrko19Tobacco Obcbsfmiv65/07/2026 09/03/2024DTaP,Tdap and Td Vaccines (2 - Td or Tdap) Medical Devices Not on file Insurance
--- OUTSIDE RECORDS SUMMARY | 2025-03-20 13:27 | XMS_ITS | Clinical Summary ---
Author Organization [facility] Address [address], [address] [place] [address] Care Team Providers Care Pull Worker Name Role Phone Thom Stern MD Primary Care Provider [phone] Allergies Active AllergyReactionsCriticalityNoted BxziHxwsqxdgOeootfvnmz67/07/2015 Medications MedicationSigDispense QuantityRefillsLast FilledStart DateEnd DateStatus DULoxetine (CYMBALTA) 30 MG capsule Take 30 mg by mouth nightlyActive traMADol (ULTRAM) 50 MG tablet Take 100 mg by mouth every 6 hours as needed for PainActive atorvastatin (LIPITOR) 80 MG tablet Take 80 mg by mouth dailyActive metoprolol (LOPRESSOR) 12.5 mg TABS Take 6.25 mg by mouth 2 times dailyActive pregabalin (LYRICA) 100 MG capsule Take 1 capsule by mouth 2 times daily 60 capsule ctive vitamin D (ERGOCALCIFEROL) 10308 UNITS capsule Take 1 capsule by mouth once a week for 8 doses 8 capsule ctive tamsulosin (FLOMAX) 0.4 MG capsule Take 1 capsule by mouth daily 30 capsule ctive OXcarbazepine (TRILEPTAL) 150 MG tablet Take 1 tablet by mouth 3 times daily for 15 days 45 tablet ctive Active Problems ProblemNoted DateDiagnosed DateCKD (chronic kidney disease)11/03/2014Syncope 11/03/20147495Gqsguxmfoooa86/07/2015OSA (obstructive sleep apnea) Overview (11/03/2014): non compliant home machine Social History Tobacco UseTypesPacks/DayYears UsedDateSmoking Tobacco: NeverAlcohol UseStandard Drinks/WeekCommentsNo0 (1 standard drink = 0.6 oz pure alcohol)Sex and Gender InformationValueDate RecordedSex Assigned at BirthNot on fileLegal SexMale 07/09/2012 12:35 PM ESTGender IdentityNot on fileSexual OrientationNot on file Last Filed Vital Signs Vital SignReadingTime TakenCommentsBlood Xlppqiev573/66011/06/2014 12:00 PM EDT Lycrn5290 12:00 PM VJJFfnhkldvlpd67.1 ??C (98.8 ??F)11/06/2014 12:00 PM EDTRespiratory Skhj063911/06/2014 12:00 PM EDTOxygen Qtozkruhct59%11/06/2014 12:00 PM EDTInhaled Oxygen Concentration--Dbssta152.6 kg (429 lb 0.2 oz)11/05/2014 11:48 PM BHTWutikq620.6 cm (5' 6 )11/03/2014 4:45 AM EDTBody Mass Index69.24 11/03/2014 4:45 AM EDT Plan of Treatment Not on file Insurance Advance Directives * Full Code (Latest Code Status on File) Date ActivatedDate InactivatedComments11/03/2014 9:41 AM11/06/2014 6:48 PM Care Teams Team MemberRelationshipSpecialtyStart DateEnd Date Thom Stern MD [facility] - General11/03/14
--- OUTSIDE RECORDS SUMMARY | 2025-03-20 13:27 | XMS_ITS | Clinical Summary ---
Author Organization [facility] Address [address] [place], [place] [address] Care Team Providers Care Novelty Twister Tender Name Role Phone Jarred KILGORE MD, Thom Nash Primary Care Provider [phone] Allergies Active AllergyReactionsCriticalityNoted DateCommentsTopiramateIntolerance 10/14/2014 Severe headache Medications MedicationSigDispense QuantityRefillsLast FilledStart DateEnd DateStatus pregabalin (LYRICA) 300 mg capsule Take 300 mg by mouth twice daily.Active OXcarbazepine (TRILEPTAL) 150 mg tablet Take 150 mg by mouth three times daily.Active tiZANidine HCl 4 mg capsule Take 4 mg by mouth three times daily as needed.Active DULoxetine (CYMBALTA) 30 mg capsule Take 30 mg by mouth once daily.Active oxyCODONE ER (OXYCONTIN, EXTENDED REL.,) 40 mg Tb12 Take 40 mg by mouth every 8 hours.Active phentermine-topiramate ER 3.75-23 mg 24 Hr Capsule Take 1 capsule by mouth once daily.Active aspirin, enteric coated (ASPIRIN, ENTERIC COATED) 81 mg EC tablet Take 81 mg by mouth once daily.Active atorvastatin (LIPITOR) 80 mg tablet Take 80 mg by mouth once daily.Active metoprolol succinate XL (TOPROL XL) 25 mg 24 hr tablet Take 25 mg by mouth twice daily.Active WARFARIN SODIUM (COUMADIN ORAL) Take 10 mg by mouth once daily.Active AMLODIPINE BESYLATE (AMLODIPINE ORAL) Take 5 mg by mouth once daily.Active morphine SR (MS CONTIN, ORAMORPH SR) 15 mg 12 hr tablet Take 15 mg by mouth twice daily.Active Active Problems ProblemNoted DateDiagnosed DateHistory of DVT (deep vein thrombosis)10/14/2014 Family History Medical HistoryRelationCommentsDiabetesFatherHeartFatherHeartMotherHypertension MotherRelationStatusCommentsFatherMother Social History Tobacco UseTypesPacks/DayYears UsedDateSmoking Tobacco: NeverSmokeless Tobacco: NeverAlcohol UseStandard Drinks/WeekCommentsNo0 (1 standard drink = 0.6 oz pure alcohol)Sex and Gender InformationValueDate RecordedSex Assigned at BirthNot on fileLegal HwyWrwx5906/03/2014 11:42 AM ESTGender IdentityNot on fileSexual OrientationNot on file Last Filed Vital Signs Vital SignReadingTime TakenCommentsBlood Yabrrldg982/8304 1:16 PM EDT Bmzas901909/22/2015 1:16 PM KXOJqypzhljfyy02.9 ??C (98.5 ??F)10/14/2014 1:20 PM EDTRespiratory Yeni754409/22/2015 1:16 PM EDTOxygen Saturation--Inhaled Oxygen Concentration--Qybnxg289.5 kg (466 lb 4.8 oz)09/22/2015 1:16 PM TRWCamqtb927.6 cm (5' 5.98 )09/22/2015 1:16 PM EDTBody Mass Index75.304 1:16 PM EDT Plan of Treatment Health MaintenanceDue DateLast DoneCommentsAnxiety Pvensxjsj85/31/1983Depression Txxihjbfi05/31/1983HIV Wfgogkksj96/31/1983Hepatitis C Ybkcemmkv67/31/1983 DTaP,Tdap,Td Vaccine (1 - Tdap)10/28/1983Lipid Iwisqxedn66/31/2000CT Tfwljrblsdaq91/31/2010Cologuard (FIT-DNA)10/27/20098220Nwwcblxuolb15/31/2010 Colorectal Cancer Mmkdrmubp25/31/2010Fecal Occult Blood2009Prostate Cancer Screening Ehwhvbsary80/31/3774Kahqpemsubzhh88/31/2010Pneumococcal Vaccine: 50+ (1 of 1 - PCV)2014Shingrix Vaccine (1 of 2)2014Diabetes Screening Covid-19 Vaccine (1 - 2024- season)2025Influenza Vaccine (#1)2025RSV Vaccine (1 - 1-dose 75+ series)10/28/2039 Procedures Procedure NamePriorityDate/TimeAssociated DiagnosisCommentsCOMPREHENSIVE METABOLIC QIWTTIhygqyw20/18/2015 2:02 PM EDT History of DVT (deep vein thrombosis) from Last 3 Months or Most Recently Relevant to Health Maintenance Results * (ABNORMAL) COMP METABOLIC PANEL (10/14/2014 2:02 PM EDT)ComponentValueRef RangeTest MethodAnalysis TimePerformed AtPathologist SignatureProtein, Total 7.66.0 - 8.4 g/dL10/15/2014 2:33 AM [facility] LABORATORYAlbumin 3.73.5 - 5.0 g/dL10/15/2014 2:33 AM [facility] LABORATORYCalcium 9.38.5 - 10.5 mg/dL10/15/2014 2:33 AM [facility] Bilirubin, Total0.20.0 - 1.5 mg/dL10/15/2014 2:33 AM [facility] LABORATORYAlkaline Ojckdzwppoq64479 - 150 U/L10/15/2014 2:33 AM [facility] KFJENJWRNPNUE28(H)7 - 40 U/L10/15/2014 2:33 AM [facility] UTHGRMZJWLOfcrurs7805 - 100 mg/dL10/15/2014 2:33 AM [facility] WZPTMXPDETIPK63(H)10 - 25 mg/dL10/15/2014 2:33 AM [facility] LABORATORYCreatinine2.79(H)0.70 - 1.40 mg/dL10/15/2014 2:33 AM EDT [facility] WOYKDKZKTBVpfsxb076598 - 146 mmol/L10/15/2014 2:33 AM [facility] LABORATORYPotassium4.83.5 - 5.0 mmol/L10/15/2014 2:33 AM [facility] YGAKWPINHZQnzccwvp50(L)98 - 110 mmol/L10/15/2014 2:33 AM [facility] SSAKTSZGNGHE94577 - 32 mmol/L10/15/2014 2:33 AM [facility] LABORATORYAnion Gap18(H)0 - 15 mmol/L10/15/2014 2:33 AM [facility] DQXQCKJERFTDP402 - 50 U/L10/15/2014 2:33 AM [facility] LABORATORYeGFR- Quxgrwwj3501/19/2015 2:33 AM [facility] LABORATORYeGFR-All Other Races24.10/15/2014 2:33 AM [facility] MA[facility] LABORATORYComment: eGFR (Estimated GFR) Units of measure: mL/min/1.73 [...] eGFR may not accurately reflect actual GFR. Specimen (Source)Anatomical Location / LateralityCollection Method / Volume Collection TimeReceived TimeBlood specimen (specimen)BLOOD SPECIMEN / Unknown 10/14/2014 2:02 PM EDT10/14/2014 2:07 PM EDT Narrative Authorizing ProviderResult TypeResult StatusAlfred P VargasLABORATORYFinal ResultPerforming OrganizationAddressCity/State/ZIP CodePhone Number [facility] [address] [place] [address] from Last 3 Months or Most Recently Relevant to Health Maintenance Insurance Care Teams Team MemberRelationshipSpecialtyStart DateEnd Thom Stern II, MD [facility]CP - [facility]06/03/14
--- OUTSIDE RECORDS SUMMARY | 2025-03-20 13:27 | XMS_ITS | Clinical Summary ---
Author Organization [facility] Address [address] [place] [address] Care Team Providers Care Corrosion Control Fitter Name Role Phone Denys Breen MD Primary Care Provider [phone] Allergies Active AllergyReactionsCriticalityNoted DateCommentsTopiramateHeadache,Other 05/17/2014 Severe headache Medications MedicationSigDispense QuantityRefillsLast FilledStart DateEnd DateStatus aspirin 81 mg chewable tablet Chew 81 mg in the morning.01/16/2024ctive atorvastatin (Lipitor) 40 mg tablet Take 40 mg by mouth in the morning.Active carvedilol (Coreg) 12.5 mg tablet Take 12.5 mg by mouth with breakfast and with evening meal.Active cetirizine (ZyrTEC) 10 mg tablet Take 10 mg by mouth in the morning.Active spironolactone (Aldactone) 25 mg tablet Take 25 mg by mouth in the morning and at bedtime.Active HYDROcodone-acetaminophen ([place]) 5-325 mg tablet Take 1 tablet by mouth every 6 (six) hours if needed.5Active magnesium oxide (Mag-Ox) 250 mg magnesium tablet Take 250 mg by mouth in the morning.4Active losartan (Cozaar) 50 mg tablet Take 50 mg by mouth in the morning.Active metFORMIN (Glucophage) 1,000 mg tablet Take 1,000 mg by mouth with breakfast and with evening meal.5Active glimepiride (Amaryl) 1 mg tablet Take 1 tablet by mouth in the morning.5Active furosemide (Lasix) 40 mg tablet Take 40 mg by mouth in the morning.Active Active Problems ProblemNoted DateDiagnosed HgbmYkzvxxvxscjn36/20/2025Lumbar radiculopathy 01/16/2025OSA (obstructive sleep apnea)01/16/2025 Overview (01/16/2025): non compliant home machine Osteoarthritis of knee01/16/2025Shoulder pain01/16/2025hronic combined systolic and diastolic CHF (congestive heart failure)01/16/2024Essential hypertension 03/10/20238088Afkxyqcocgbpbk56/12/2023Rotator cuff syndrome of right shoulder 03/10/2023Stage 3b chronic kidney wiegoca5003/10/2023Type 2 diabetes mellitus without complication, without long-term current use of bnuqxmc3503/10/2023Obesity, pxkmsw0501/10/2023KD (chronic kidney disease)11/03/20142638Qhhzcnyvkhed77/07/2015 Uoegrzm2311/03/2014History of DVT (deep vein thrombosis)10/14/2014 Encounters DateTypeDepartmentCare WrwmDmdbvfikqyy23/25/2025 1:00 PM EDTOffice Visit [facility] at [address] [address] Howard Delatorre, MINNIE Chronic heart failure with preserved ejection fraction (CMS/HCC) (Primary Dx); Heart failure with improved ejection fraction (HFimpEF) (CMS/HCC); Coronary artery disease involving [place] coronary artery of [place] heart without angina pectoris; Benign hypertensive heart disease with heart failure (CMS/HCC); Type 2 diabetes mellitus without complication, without long-term current use of insulin (CMS/HCC); Mixed hyperlipidemiafrom Last 3 Months Family History Medical HistoryRelationNameCommentsDiabetesFatherCoronary artery diseaseMother RelationNameStatusCommentsFatherDeceasedMotherDeceased Social History Tobacco UseTypesPacks/DayYears UsedDateSmoking Tobacco: NeverSmokeless Tobacco: Never Tobacco Cessation:Counseling Given: Not Answered Alcohol UseStandard Drinks/WeekCommentsYes0 (1 standard drink = 0.6 oz pure alcohol)occasionalSex and Gender InformationValueDate RecordedSex Assigned at JmtvhSmpm92/14/2025 9:33 AM EDTLegal UxxWnfq8811/25/2021 11:23 PM EDTGender YgniyqdeNgvk65/14/2025 9:33 AM EDTSexual OrientationHeterosexual or Straight 01/10/2025 9:33 AM EDT Last Filed Vital Signs Vital SignReadingTime TakenCommentsBlood Kqmvylys813/8301/21/2025 1:25 PM EDT Buftb884601/21/2025 1:25 PM EDTTemperature--Respiratory Rate--Oxygen Rozdurlzyi80% 01/21/2025 1:25 PM EDTInhaled Oxygen Concentration--Phcktm545 kg (420 lb) 01/21/2025 1:25 PM XRIIboiwy552.6 cm (5' 6 )01/21/2025 1:25 PM EDTBody Mass Index67.7901/21/2025 1:25 PM EDT Plan of Treatment DateTypeDepartmentCare Team (Latest Contact Info)Tcvzuckkvpp70/05/2025 9:40 AM ESTOffice Visit [facility] [address] [place] [address] Carol Le, [employer] [address] [place] [address] Health MaintenanceDue DateLast DoneCommentsCT Nrlrpfrvyxid84/31/1965Colonoscopy 1964Colorectal Cancer Zlxcdrgzz10/31/1965Diabetes: Hemoglobin A1C 1964FIT-DNA1964FIT1964FOBT1964Medicare Annual Wellness (AWV)1964 7883Parnldjgdgvia13/31/1965Diabetes: Retinopathy Ayjfjailb61/31/1975 Depression Aakiugjrv21/31/1977Diabetes: Urine Protein Zfnbdvcfd75/31/1984 Pneumococcal Vaccine: Pediatrics (0 to 5 Years) and At-Risk Patients (6 to 64 Years) (1 of 2 - PCV)10/28/1983Zoster Vaccines (1 of 2)2014COVID-19 Vaccine (1 - season)2025Influenza Vaccine (#1)2025 06/05/2024, 03/10/2023dult Wtxyrvi12HIB VaccinesAged OutNo longer eligible based on patient's age to complete this topicHPV VaccinesAged OutNo longer eligible based on patient's age to complete this topicIPV Vaccines Aged OutNo longer eligible based on patient's age to complete this topic Meningococcal B VaccineAged OutNo longer eligible based on patient's age to complete this topicMeningococcal VaccineAged OutNo longer eligible based on patient's age to complete this topicRotavirus VaccinesAged OutNo longer eligible based on patient's age to complete this topic Insurance Care Teams Team MemberRelationshipSpecialtyStart DateEnd Date Denys Breen MD [address] [place] [address] PCP - GeneralFamily Medicine01/21/25
--- OUTSIDE RECORDS SUMMARY | 2025-03-20 13:32 | XMS_ITS | CCD ---
Author Organization [facility] CliniSyid Care Team Providers Care [employer] Sales Rep Name Role Phone HOUSE, DR GLEZ Primary Care Unavailable HOUSE, DR GLEZ Admitting Unavailable HOUSE, DR GLEZ Attending Unavailable HOUSE, DR GLEZ Consulting Unavailable LAISHAEBKATTY, DR EFRA Bradshaw Consulting Unavailable HOUSE, DR [...] Unavailable Yuhas Merritt BEST Primary Care Provider [phone] Yuyosis Merritt BEST Primary Care Provider [phone] MERRITT THACKER Attending Unavailable YUHAS, MERRITT Eng [...] Unavailable CHRIS GARCIA Attending Unavailable Allergies Allergy ClassificationReported Allergen(s)Allergy TypeDate of OnsetReaction(s) FacilityAnti-Epileptic Agents (1 source)topiramateDrug Zwatocd77-81-1463IawOhiohealth [facility] Repository (6 sources)topiramate; 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: [TOPIRAMATE]Drug Ahnzcvq53-92-3740PisvunmgdSelect [facility] Rep[facility] (5 sources)TopiramatePropensity to adverse zwizuyvkr23-69-8698QHXF Healthcare (15 sources)topiramateDrug Bwhjtpi30-04-5837Uqbuoofk, Other (See Comments) [facility] Medications Current Medications MedicationDrug Class(es)DatesSig (Normalized)Sig (Original)[id number] 200 actuat albuterol 0.09 mg/actuat metered dose inhaler (10 sources)beta2-Adrenergic AgonistStart: 1964nmrp 2 puff(s) by mouth every four hours as needed for wheezingalbuterol (PROVENTIL HFA;VENTOLIN HFA) 90 mcg/actuation inhaler INHALE 2 PUFFS BY MOUTH EVERY 4 HOURS NEEDED for SHORTNESS OF BREATH or FOR WHEEZING 12/18/2023 ActiveamLODIPine 5 mg oral tablet (5 sources)Dihydropyridine Calcium Channel BlockeramLODIPine (Norvasc) 5 MG tablet Activeaspirin 81 mg chewable tablet (8 sources)Platelet Aggregation Inhibitor, Nonsteroidal Anti-inflammatory Drug Start: 69-62-9352pqfcxuv 81 mg chewable tablet Indications: Chronic combined systolic and diastolic CHF (congestive heart failure) ([facility]) Chew 1 tablet (81 mg total) and swallow in the morning. 90 tablet 1 01/16/2024 Active atorvastatin 40 mg oral tablet (20 sources)HMG-CoA Reductase InhibitorStart: 01-09-2024 End: 71-34-9359hvzq 1 tablet by mouth once dailyatorvastatin (LIPITOR) 40 mg tablet Indications: Type 2 diabetes mellitus without complication, without long- term current use of insulin ([facility]) Take 1 tablet (40 mg total) by mouth nightly. 90 tablet 1 06/05/2024 ActiveStart: 03-10-2023 End: 18-65-5785asgj 1 tablet by mouth in the morningatorvastatin (LIPITOR) 20 mg tablet Indications: Hyperlipidemia, unspecified hyperlipidemia type Take 1 tablet (20 mg total) by mouth in the morning. 90 tablet 03/10/2023 01/02/2024 Discontinued (Patient Stopped On Own)take 1 tablet by mouth once daily at bedtimeatorvastatin (Lipitor) 80 MG tablet Take 1 tablet every day by oral route at bedtime. Activebaclofen 5 mg oral tablet (11 sources)gamma-Aminobutyric Acid-ergic AgonistStart: 51-37-4385rpeh 2 tablets by mouth twice daily as needed for muscle spasmsbaclofen 5 mg tablet Indications: Primary osteoarthritis of right shoulder Take 2 tablets by mouth 2 (two) times a day as needed (back spasm). 09/03/2024 ActiveStart: 01-16-2024 End: 24-03-7040nosp 1 tablet by mouth twice daily as needed for muscle spasms baclofen 5 mg tablet Indications: Primary osteoarthritis of right shoulder Take 1 tablet by mouth 2(two) times a day as needed (back spasm). 60 tablet 2 06/05/2024 09/03/2024 Discontinuedcarvedilol 12.5 mg oral tablet (10 sources)alpha-Adrenergic Bishop, beta-Adrenergic BlockerStart: 01-09-2024 End: 43-18-0789noqd 1 tablet by mouth in the morning, then take 1 tablet by mouth at mealtimecarvediloL (COREG) 12.5 mg tablet Indications: Chronic combined systolic and diastolic CHF (congestive heart failure) ([facility]) Take 1 tablet (12.5 mg total) by mouth in the morning and 1 tablet (12.5 mg total) in the evening. Take with meals. 180 tablet 1 06/05/2024 Activecetirizine hydrochloride 10 mg oral tablet (4 sources)Histamine-1 Receptor AntagonistStart: 09-03-2024 End: 78-93-3674uody 1 tablet by mouth in the morningcetirizine (ZyrTEC) 10 mg tablet Indications: Non-seasonal allergic rhinitis, unspecified trigger Take 1 tablet (10 mg total) by mouth in the morning. 30 tablet 12/03/2024 Active dapagliflozin 10 mg oral tablet (8 sources)Sodium-Glucose Cotransporter 2 InhibitorStart: 57-33-5141pkro 1 tablet by mouth in the morningdapagliflozin propanediol (FARXIGA) 10 mg tablet Indications: Chronic combined systolic and diastolic CHF (congestive heart failure) ([facility]) Take 1 tablet (10 mg total) by mouth in the morning. 120 tablet 2 06/07/2024 ActiveStart: 02-21-2024 End: 81-63-2346aiwy 1 tablet by mouth in the morningdapagliflozin propanediol (FARXIGA) 10 mg tablet Indications: Chronic combined systolic and diastolic CHF (congestive heart failure) ([facility]) Take 1 tablet (10 mg total) by mouth in the morning. 90 tablet 1 06/05/2024 Activeferrous sulfate 325 mg oral tablet (5 sources)take 1 tablet by mouth in the morningferrous sulfate 325 (65 Fe) MG tablet Take 1 tablet by mouth in the morning. Activefurosemide 40 mg oral tablet (20 sources)Loop DiureticStart: 01-16-2024 End: 16-96-7524vfru 1 tablet by mouth once dailyfurosemide (LASIX) 40 mg tablet Indications: Chronic combined systolic and diastolic CHF (congestive heart failure) ([facility]) Take 1 tablet (40 mg total) by mouth daily. 30 tablet 11 06/05/2024 ActiveStart: 12-21-2022 End: 04-76-1349avhg 1 tablet by mouth once dailyfurosemide (LASIX) 40 mg tablet Take 1 tablet (40 mg total) by mouth daily. 12/21/2022 01/02/2024 Discontinued (Patient Stopped On Own)furosemide (Lasix) 20 MG tablet Active hydroCHLOROthiazide 25 mg / triamterene 37.5 mg oral tablet (5 sources)Potassium-sparing Diuretic, Thiazide Diuretictriamterene- hydrochlorothiazide (Maxzide-25) 37.5-25 MG tablet Activelosartan potassium 50 mg oral tablet (20 sources)Angiotensin 2 Receptor BlockerStart: 03-10-2023 End: 79-12-9141oqqf 1 tablet by mouth in the morninglosartan (COZAAR) 50 mg tablet Indications: Chronic combined systolic and diastolic CHF (congestiveheart failure) ([facility]) Take 1 tablet (50 mg total) by mouth in the morning. 90 tablet 1 06/05/2024 Activemagnesium oxide 250 mg oral tablet (8 sources)Start: 42-00-9690rnpj 1 tablet by mouth in the morningmagnesium oxide 250 mg tablet Indications: Chronic combined systolic and diastolic CHF (congestive heart failure) ([facility]) Take 1 tablet (250 mg total) by mouth in the morning. 90 tablet 1 01/16/2024 ActivemetFORMIN hydrochloride 1000 mg oral tablet (20 sources)BiguanideStart: 12-21-2022 End: 96-27-9696eguz 1 tablet by mouth twice daily at bedtimemetFORMIN (GLUCOPHAGE) 1000 mg tablet Indications: Type 2 diabetes mellitus without complication, without long-term current use of insulin ([facility]) TAKE 1 TABLET BY MOUTH TWICE DAILY (IN THE MORNINGand BEFORE bedtime) 180 tablet 12/03/2024 Activepantoprazole 40 mg delayed release oral tablet (5 sources)Proton Pump Inhibitortake 1 tablet by mouth twice dailypantoprazole (ProtoNix) 40 MG EC tablet Take 1 tablet twice a day by oral route. Ephkvs92 hr phentermine 3.75 mg / topiramate 23 mg extended release oral capsule (5 sources)Sympathomimetic Amine Anorectictake 1 capsule by mouth once daily Phentermine-Topiramate (Qsymia) 3.75-23 MG capsule sustained-release 24 hr Take 1 capsule every dayby oral route. Activepotassium chloride 20 meq powder for oral solution (5 sources)take 1 dose by mouth once dailypotassium chloride (Klor-Con) 20 MEQ packet Take 1 packet every day by oral route. Activepregabalin 300 mg oral capsule (5 sources)take 1 capsule by mouth twice dailypregabalin (Lyrica) 300 MG capsule Take 1 capsule twice a day by oral route. ActiveSITagliptin 100 mg oral tablet (7 sources)Dipeptidyl Peptidase 4 InhibitorStart: 83-49-6277dvof 1 tablet by mouth in the morningSITagliptin (Januvia) 100 MG tablet Take 100 mg by mouth in the morning. 03/10/2023 Activespironolactone 25 mg oral tablet (10 sources)Aldosterone AntagonistStart: 01-09-2024 End: 66-28-5043lemv 1 tablet by mouth in the morningspironolactone (ALDACTONE) 25 mg tablet Indications: Chronic combined systolic and diastolic CHF (co ngestive heart failure) ([facility]) Take 1 tablet (25 mg total) by mouth in the morning. 90 tablet 06/05/2024 ActivetiZANidine 4 mg oral tablet (14 sources)Central alpha-2 Adrenergic Agonist End: 28-77-1033woWOKawcuf (Zanaflex) 4 MG tablet Active End: 03-97-1080ighe 1 capsule by mouth every eight hours as neededtiZANidine (ZANAFLEX) 4 mg capsule Take 1 capsule (4 mg total) by mouth every 8 (eight) hours as needed. 01/16/2024 Discontinued (Therapy completed)warfarin sodium 5 mg oral tablet (5 sources)Vitamin K Antagonisttake 1 tablet by mouth in the morningwarfarin (Coumadin) 5 MG tablet Take 1 tablet by mouth in the morning. Active Completed/Discontinued Medications MedicationDrug Class(es)DatesSig (Normalized)Sig (Original)adjuvant AS01B, PF,vial 1 of 2 (SHINGRIX ADJUVANT COMPONENT-PF) suspension (1 source)Start: 09-07-2023 End: 13-71-2625xknqaixn AS01B, PF,vial 1 of 2 (SHINGRIX ADJUVANT COMPONENT-PF) suspension Indications: Immunization due Inject 0.5 mL into the appropriate muscle once for 1 dose. Repeat dose in 2 -4 months 0.5 mL 09/07/2023 Expiredbenzonatate 100 mg oral capsule (5 sources)Non-narcotic AntitussiveStart: 12-18-2023 End: 18-26-9166iavb 2 capsules by mouth every eight hours as neededbenzonatate (TESSALON PERLES) 100 mg capsule TAKE 2 CAPSULES BY MOUTH EVERY 8 HOURS NEEDED for coughing 12/18/2023 06/05/2024 Discontinued (Therapy completed) bumetanide 1 mg oral tablet (3 sources)Loop DiureticStart: 12-18-2023 End: 50-27-4679qlhy 1 tablet by mouth once dailybumetanide (BUMEX) 1 mg tablet TAKE 1 TABLET BY MOUTH DAILY FOR 15 DAYS 12/18/2023 01/16/2024 Discontinued (Therapy completed)diclofenac sodium 0.01 mg/mg topical gel (20 sources)Nonsteroidal Anti-inflammatory DrugStart: 01-16-2024 End: 48-69-1872dobdayrdgo sodium (VOLTAREN) 1 % gel Indications: Primary osteoarthritis of right shoulder Apply 2 g topically in the morning and 2 g at noon and 2 g in the evening and 2 g before bedtime. 100 g 2 01/16/2024 02/21/2024 Discontinued (Ineffective)Start: 03-21-2023 End: 35-95-9450hwdj 1 tablet by mouth in the morningdiclofenac (Voltaren) 75 MG EC tablet Take 75 mg by mouth in the morning and 75 mg before bedtime. 1 ActiveStart: 03-10-2023 End: 25-09-4274gkuecejwgt sodium (VOLTAREN) 1 % gel Indications: Chronic right shoulder pain Apply 2 g topically in the morning and 2 g at noon and 2 g in the evening and 2 g before bedtime. 100 g 2 03/10/2023 01/02/2024 Discontinued (Patient Stopped On Own)DULoxetine 30 mg delayed release oral capsule (6 sources)Serotonin and Norepinephrine Reuptake Inhibitor End: 92-79-8710shxz 1 capsule by mouth once dailyDULoxetine (CYMBALTA) 30 mg capsule Take 1 capsule every day by oral route. 01/02/2024 Discontinued(Patient Stopped On Own)fexofenadine hydrochloride 180 mg oral tablet (11 sources)Histamine-1 Receptor AntagonistStart: 02-23-2024 End: 31-97-7177ivzh 1 tablet by mouth once daily as needed for congestion fexofenadine (NEREYDA) 180 mg tablet Indications: Non-seasonal allergic rhinitis, unspecified trigger Take 1 tablet (180 mg total) by mouth daily as needed (congestion). 30 tablet 2 06/05/2024 09/03/2024 Discontinued (Ineffective)Start: 12-21-2022 End: 48-00-0377cuan 1 tablet by mouth in the morningfexofenadine (NEREYDA) 180 mg tablet Take 1 tablet (180 mg total) by mouth in the morning. 12/21/2022 01/02/2024 Discontinued (Patient Stopped On Own)gabapentin 600 mg oral tablet (6 sources)Anti-epileptic AgentStart: 12-08-2022 End: 56-45-8542vrdu 1 tablet by mouth three times dailygabapentin (NEURONTIN) 600 mg tablet Take 1 tablet (600 mg total) by mouth 3 (three) times a day. 09/07/2023 Discontinued (Therapy completed)Start: 21-97-5702zdep 1 capsule by mouth in the morning, then take 1 capsule by mouth in the evening, then take 1 capsule by mouth at bedtimegabapentin (Neurontin) 300 MG capsule Take 300 mg by mouth in the morning and 300 mg in the eveningand 300 mg before bedtime. 04/27/2022 Ycpkmb01 hr isosorbide mononitrate 30 mg extended release oral tablet (4 sources)Nitrate VasodilatorStart: 12-18-2023 End: 68-52-1539aewr 1 tablet by mouth once dailyisosorbide mononitrate (IMDUR) 30 mg 24 hr tablet TAKE 1 TABLET BY MOUTH EVERY DAY FOR 15 DAYS 12/18/2023 02/21/2024 Discontinued (Therapy completed)levoFLOXacin 750 mg oral tablet (1 source)Quinolone AntimicrobialStart: 12-18-2023 End: 04-86-5383kmzf 1 tablet by mouth once dailylevoFLOXacin (LEVAQUIN) 750 mg tablet TAKE 1 TABLET BY MOUTH DAILY FOR 3 DAYS 12/18/2023 01/02/2024iscontinued (Therapy completed)1 ml methylPREDNISolone acetate 40 mg/ml injection (4 sources)CorticosteroidStart: 02-29-2024 End: 67-48-2343gezkotLKVOGEVwnwgj acetate (DEPO-Medrol) injection 40 mgStart: 02-29-2024 End: 54-38-055391 mg, Intra-articular, Once PRN Procedure, Starting on Tue02/29/24 at 1302, For 1 dosemetoprolol tartrate 25 mg oral tablet (8 sources)beta-Adrenergic BlockerStart: 12-18-2023 End: 16-63-3807gucp 1 tablet by mouth twice dailymetoprolol tartrate (LOPRESSOR) 25 mg tablet TAKE 1 TABLET BY MOUTH TWICE DAILY FOR 15 DAYS 12/18/2023 01/16/2024 Discontinued (Duplicate order)take 1 tablet by mouth every twenty- four hours in the morningmetoprolol succinate XL (Toprol-XL) 25 MG 24 hr tablet Take 25 mg by mouth in the morning and 25 mgin the evening. Activesemaglutide 7 mg oral tablet (6 sources)Start: 09-23-2023 End: 57-53-7531vmfr 1 tablet by mouth in the morningsemaglutide (RYBELSUS) 7 mg tablet Indications: Type 2 diabetes mellitus without complication, without long- term current use of insulin ([facility]) Take 7 mg by mouth in the morning. 90 tablet 1 11/18/2023 01/02/2024 Discontinued (Patient Stopped On Own)traMADol hydrochloride 50 mg oral tablet (1 source)Opioid Agonist End: 99-14-2925iufv 2 tablets by mouth twice dailytraMADoL (ULTRAM) 50 mg tablet Take 2 tablets twice a day by oral route. 09/07/2023 Discontinued (Therapy completed) Problems Active Problems Problem ClassificationProblemDateDocumented DateEpisodic/ChronicAlcohol-related disorders (1 source)Alcohol abuse with intoxication, unspecified; 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: [ALCOHOL ABUSE WITH INTOXICATION UNS]Onset: 23-53-8176KzyguteLnjloc (1 source)Unspecified asthma, uncomplicated; 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: [Unspecified asthma, uncomplicated]Onset: 47-09-4506IkjvafpLxnuoax kidney disease (19 sources)Chronic kidney disease stage 3B ; 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: [Stage 3b chronic kidney disease ([facility])]Onset: 540623-58-9158XcfqyxeOnastyy kidney disease (2 sources)Chronic kidney disease; 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: [Chronic kidney disease, stage 3b]Onset: 04-97-1926Uxrezhtiym heart failure; nonhypertensive (20 sources)Chronic combined systolic and diastolic heart failure; 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: [Chronic combined systolic (congestive) and diastolic (congestive) heart failure]Onset: 01-02-2024 Resolved: 076774-94-9593SrstvtyEtjwmlnl atherosclerosis and other heart disease (4 sources)Atherosclerotic heart disease of [place] coronary artery without angina pectoris; 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: [Oldmyocardial infarction]Onset: 11-27-2019 ChronicDiabetes mellitus without complication (20 sources)Type 2 diabetes mellitus without complications; 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: [Type 2 diabetes mellitus without complication]Onset: 89-18-2613ZqykcykNfordppka of lipid metabolism (20 sources)Hyperlipidemia; 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: [Hyperlipidemia, unspecified]Onset: 948664-43-4952WoempxqCduaspnnh hypertension (20 sources)Essential (primary) hypertension; 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: [Essential hypertension]Onset: 020964-15-6800SaytxoePyhimbftgrh of prostate (1 source)Benign prostatic hyperplasia without lower urinary tract symptoms; 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: [BENIGN PROSTATIC HYPRPLASIA WO LUTS]Onset: 10-99-2589Rfocdxk Hypertension with complications and secondary hypertension (2 sources)Hypertensive heart disease with heart failure; 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: [Hypertensive heart disease with heartfailure]Onset: 99-86-3906Ugioyvy Osteoarthritis (9 sources)Unspecified osteoarthritis, unspecified site; 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: [Osteoarthritis of joint of right shoulder region]Onset: ChronicOther diseases of veins and lymphatics (1 source)Lymphedema, not elsewhere classified; 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: [I89.0 - Lymphedema, not elsewhere classified]Onset: 20-53-4026BfhafmbOxyag nervous system disorders (1 source)Other chronic pain; 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: [Other chronic pain]Onset: 05-51-7149IuovgagGqpqn non-traumatic joint disorders (2 sources)Pain in right knee; 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: [Pain in joint, lower leg] 33-08-3228LcviwmcmIbosx non-traumatic joint disorders (2 sources)Ankle pain; 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: [Pain in right ankle and joints of right foot]88-51-5598MhwgybpjMrvar non-traumatic joint disorders (2 sources)Disorder of shoulder; 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: [Other specified joint disorders, right shoulder]01-09-9853AiwuohyoMbdjy nutritional; endocrine; and metabolic disorders (1 source)Obesity, unspecified; 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: [OBESITY UNSPECIFIED]Onset: 70-23-1910XwrdoefCtwtv nutritional; endocrine; and metabolic disorders (3 sources)Morbid (severe) obesity due to excess calories; 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: [MORBID SEVERE OBES D/T EXCESS NAHUN]Onset: 14-98-9644GjjjqiyBcywl nutritional; endocrine; and metabolic disorders (1 source)Body mass index (BMI) 60.0-69.9, adult; 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: [BODY MASS INDEX BMI 60.0-69.9 ADULT]Onset: 81-51-7780UpnkxufAfrcl nutritional; endocrine; and metabolic disorders (17 sources)Morbid obesity; 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: [Morbid (severe) obesity due to excess calories]Onset: 841003-44-4980AojqzkkZnkbc nutritional; endocrine; and metabolic disorders (1 source)Severe obesity; 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: [Morbid (severe) obesity due to excess calories]79-81-8374MdfnmwwPwfyd upper respiratory disease (3 sources)Allergic rhinitis; 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: [Other allergic rhinitis]06-05-2024 ChronicUnclassified (1 source)E11.9 - Type 2 diabetes mellitus without complications; 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: [E11.9 - Type 2 diabetes mellitus without complications]Onset: 07-13-2021 Unclassified (1 source)bloating and swelling belly on downOnset: 01-02-2024 Past or Other Problems Problem ClassificationProblemDateDocumented DateEpisodic/ChronicE Codes: Unspecified (1 source)Blood alcohol level of 200-239 mg/100 ml; 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: [BLOOD ALCOHOL LVL 200-239 MG/100 ML]Onset: 75-72-1449GfydadriWqjofplnelupz and screening for infectious disease (5 sources)Patient encounter status; 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: [Encounter for immunization] Onset: 307862-53-6037CahgjgvwSvna disorders (15 sources)Mood disordersOnset: 02-21-2024 Resolved: Open wounds of extremities (2 sources)Unspecified open wound, left lower leg, initial encounter; 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: [Unspecified open wound, left lower leg, subsequent encounter] Onset: 89-09-4434AcdgvwtaLuiyy aftercare (1 source)Other fdc (current) drug therapy; 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: [OTH PLAY THERAPIST CURRENT DRUG THERAPY]Onset: 07-84-8818ItixcfedVwgcj aftercare (1 source)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; 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: [RETIREMENT CURRNT USE ANTICOAGULANTS]Onset: 98-42-7955IpjqemwzOrrto connective tissue disease (15 sources)Right rotator cuff syndrome; 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: [Unspecified rotator cuff tear or rupture of right shoulder, not specified as traumatic]Onset: 03-10-2023 12-70-8962ZhxfeyyzOwrtr diseases of kidney and ureters (1 source)Disorder of kidney and ureter, unspecified; 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: [DISORDER KIDNEY AND URETER UNS]Onset: 08-88-1702BsbwubxeJklpd injuries and conditions due to external causes (4 sources)Encounter for examination and observation following transport accident; 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: [ENC EXAM ANDOBSERV FLW TRANSPORT ACC]Onset: 11-25-2019 EpisodicOther non-traumatic joint disorders (3 sources)Pain in right shoulder; 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: [Pain in joint, shoulder region]Onset: 681510-22-1520WqguohnyMjmuj non-traumatic joint disorders (1 source)Chronic pain of right upper limb; 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: [Pain in right shoulder]79-44-1026PduvihvuRgryu screening for suspected conditions (not mental disorders or infectious disease) (3 sources)Encounter for screening for malignant neoplasm of colon; 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: [Encounter for screening formalignant neoplasm of prostate]Onset: 63-88-8768MvouwygaLaknn skin disorders (1 source)Other specified disorders of pigmentation; 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: [L81.8 - Other specified disorders of pigmentation]Onset: 59-99-2390LjerduiqDxdwnqaim heart disease (1 source)Personal history of pulmonary embolism; 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: [PERSONAL HISTORY PULMONARY EMBOLISM]Onset: 57-72-3848TbxjxixxDlukxqovyzt; intervertebral disc disorders; other back problems (4 sources)Low back pain; 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: [LOW BACK PAIN]Onset: 08-81-0650Hrcuvphd Varicose veins of lower extremity (1 source)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; 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: [I83.899 - 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]Onset: 88-83-3055Fkvbqhsa Results Test NameValueInterpretationReference FdovkYfzsrtns53sa [id number] by: JAYA BARBER on: 01/21/2025 02:02 PM Modules accepted: OrdersNormalUniversity of Memorial Herm[facility] Land HospitalOffice Visiton 96-40-3815Ztvnkp-up [id number] Cristobal Garcia 1965 M Date Provider Department Center 01/21/2025 [id number], ADAM [facility]iel [facility] Family History Problem Relation Age of Onset Coronary artery disease Mother Diabetes Father Family Status - Relation Status Age at Mother Father Level of Service:54654 [place] OFFICE/OUTPATIENT ESTABLISHED MOD [facility]COMPREHENSIVE METABOL[facility] PANELon 09-03-2024 Albumin [Mass/Vol]4.1 g/dLNormal3.2-5.3[facility] HospitalComment on above:Performed By: #### TEMITOPE, 62550-8 #### [facility] ([id number]) [address], [address] [place], [place] [address]QVY [Catalytic activity/Vol]126 U/NUganzi41-866RvdBfaxej [facility] HospitalComment on above:Performed By: #### TEMITOPE, 26732-0 #### [facility] ([id number]) [address], [address] [place], [place] [address]UIP [Catalytic activity/Vol]17 U/LNormal0-40[facility] [place] HospitalComment on above:Performed By: #### TEMITOPE, 29218-2 #### [facility] ([id number]) [address], [address] [place], [place] [address]Hbqci gap [Moles/Vol]9 mmol/LNormal5-15ProSt. [facility] Hospital[facility] Comment on above:Performed By: #### TEMITOPE, 26608-8 #### [facility] ([id number]) [address], [address] [place], [place] [address]ZOX [Catalytic activity/Vol]15 U/LNormal0-41[facility] HospitalComment on above:Performed By: #### TEMITOPE, 99766-7 #### [facility] ([id number]) [address], [address] [place], [place] [address]Wldbknogh [Mass/Vol]0.6 mg/dLNormal0.3-1.2[facility] [place] HospitalComment on above:Performed By: #### TEMITOPE, 92829-6 #### [facility] ([id number]) [address] [address] [place], [place] [address]Kdzncmt [Mass/Vol]9.4 mg/dLNormal8.5-10.5PMartins Ferry HospitalComment on above:Performed By: #### TEMITOPE, 58598-1 #### [facility] ([id number]) [address], [address] [place], [place] [address]Fngvgole [Moles/Vol]101 mmol/CXldbmb17-007OauWgnblg [place] HospitalComment on above:Performed By: #### TEMITOPE, 09372-5 #### [facility] ([id number]) [address], [address] [place], [place] [address]KM2 [Moles/Vol]29 mmol/PTalvhw86-41IjuAzkwtzMartins Ferry Hospital Comment on above:Performed By: #### TEMITOPE, 42211-3 #### [facility] ([id number]) [address], [address] [place], [place] [address]Brhgcyncsu [Mass/Vol]1.11 mg/dLNormal0.60-1.30ProSelect Medical Ohiohealth Rehabilitation Hospital - DublinComment on above:Result Comment: METHOD TRACEABLE TO IDMS STANDARD Performed By: #### TEMITOPE, 77404-1 #### [facility] ([id number]) [address] [place], [place] [address]IDM/1.73 sq M.predicted among non-blacks MDRD (S/P/Bld) [Vol rate/Area]76 mL/min/{1.73_m2}Normal>59ProSelect Medical Ohiohealth Rehabilitation Hospital - DublinComment on above: Result Comment: Reported eGFR is based on the CKD-EPI 2020 equation that does not use a race coefficient.Performed By: #### TEMITOPE, 70514-6 #### [facility] ([id number]) [address] [place], [place] [address]Vkhxply [Mass/Vol]155 mg/fNQkml41-57MjmCzoddcMemorial Health System [facility] Comment on above:Performed By: #### TEMITOPE, 86940-9 #### [facility] ([id number]) [address], [address] [place], [place] [address]Yoqkyrrrb [Moles/Vol]4.9 mmol/LNormal3.5-5.0ProSelect Medical Ohio[facility] Rehabilitation Hospital - DublinComment on above:Performed By: #### TEMITOPE, 10230-4 #### [facility] ([id number]) [address], [address] [place], [place] [address]Vlaoaif [Mass/Vol]7.3 g/dLNormal6.0-8.0ProSelect [facility] Comment on above:Performed By: #### TEMITOPE, 10435-6 #### [facility] ([id number]) [address], [address] [place], [place] [address]Pwflez [Moles/Vol]139 mmol/YAfuhdc374-184GloTfxlrd [place] HospitalComment on above:Performed By: #### TEMITOPE, 13839-9 #### [facility] ([id number]) [address], [address] [place], [place] [address]Ogrp nitrogen [Mass/Vol]26 mg/dLHigh5-23ProSelect Medical Ohio[facility] Rehabilitation Hospital - DublinComment on above:Performed By: #### TEMITOPE, 62246-6 #### [facility] ([id number]) [address], [address] [place], [place] [address]Kajubupowbmnh metabolic panelon 81-61-8425Onbriip [Mass/Vol]4.1 g/dL3.2 - 5.3 g/dLProMedica Health SystemALP [Catalytic activity/Vol]126 U/L39 - 130 U/LProMedica Health SystemALT No additional P-5'-P [Catalytic activity/Vol] 17 U/L0 - 40 U/LProMedica Health SystemAnion gap [Moles/Vol]9 mmol/L5 - 15 mmol/LProMedica Health SystemAST [Catalytic activity/Vol]15 U/L0 - 41 U/L ProMedica Health SystemBilirubin [Mass/Vol]0.6 mg/dL0.3 - 1.2 mg/dLSt. Rita's HospitalCalcium [Mass/Vol]9.4 mg/dL8.5 - 10.5 mg/dLSt. Rita's Hospital Chloride [Moles/Vol]101 mmol/L98 - 109 mmol/[facility] SystemCO2 [Moles/Vol]29 mmol/L22 - 32 mmol/[facility]testant HospitalCreatinine [Mass/Vol] 1.11 mg/dL0.60 - 1.30 mg/dLSt. Rita's HospitalComment on above:METHOD TRACEABLE TO IDMO STANDARDeGFR (CKD-EPI)non-race qdynpdnst16- [facility] at VCUComment on above: Reported eGFR is based on the CKD-EPI 2020 equation that does not use a race coefficient. Glucose [Mass/Vol]155 mg/lZNjih80 - 99 mg/dLSt. Rita's Hospital Interpretation and review of laboratory resultsAbnoMission Hospital Potassium [Moles/Vol]4.9 mmol/L3.5 - 5.0 mmol/Protestant HospitalProtein [Mass/Vol]7.3 g/dL6.0 - 8.0 g/dLNovant Health Presbyterian Medical Centerodium [Moles/Vol]139 mmol/L134 - 146 mmol/Protestant HospitalUrea nitrogen [Mass/Vol]26 mg/dL High5 - 23 mg/dLSelect Specialty Hospital - HarrisburgHGB A1C (GLYCO-HGB)on 93-98-1817Yvgighw [Mass/Vol]151 mg/dLNoMercy Health Anderson HospitalComment on above:Performed By: #### [facility], 83691-0 #### [facility] ([id number]) [address] [place] [address], [address] [place], [place] [address]JjJ2n (Bld) [Mass fraction]6.9 %High4.4-5.6Mem[facility] General HospitalComment on above:Result Comment: NOTE ADA Guidelines Result HgbA1c Normal : less than 5.7 % Prediabetes : 5.7 % to 6.4 % Diabetes : > 6.4 % Use with caution in patients with abnormal hemoglobin variants as the half-life of red blood cells and in vivo glycation rates are affected.Performed By: #### TEMITOPE, 78564-1 #### [facility] ([id number]) [address], [address] [place], [place] [address]Zuutbgbujt A1con 36-77-8515Qplmsby glucose Estimated from glycated hemoglobin (Bld) [Mass/Vol]151 mg/dLSt. Rita's HospitalHbA1c (Bld) [Mass fraction]6.9 %High4.4 - 5.6 %St. Rita's HospitalComment on above:NOTE ADA Guidelines Result HgbA1c Normal : less than 5.7 % Prediabetes : 5.7 % to 6.4 % Diabetes : > 6.4 % Use with caution in patients with abnormal hemoglobin variants as the half-life of red blood cells and in vivo glycation rates are affected. Interpretation and review of laboratory resultsAbnormalIndiana Regional Medical CenterCOMPREHENSIVE METABOLIC PANELon 05-50-4320Jazejzg [Mass/Vol]3.6 g/dLNormal3.2-5.3ProMedica [facility] Specialty Hospital - CantonComment on above: Performed By: #### TEMITOPE, HA1C #### [facility] ([id number]) [address], [address] [place], [place] [address]DTH [Catalytic activity/Vol]117 U/PHstjeo90-719UmpPfnbil [place] HospitalComment on above:Performed By: #### TEMITOPE, HA1C #### [facility] ([id number]) [address], [address] [place], [place] [address]ACV [Catalytic activity/Vol]16 U/LNormal0-40ProSelect Medical Ohio[facility] Rehabilitation Hospital - DublinComment on above:Performed By: #### TEMITOPE, HA1C #### [facility] ([id number]) [address], [address] [place], [place] [address]Atyyp gap [Moles/Vol]7 mmol/LNormal5-15ProMiami Valley Hospital Hospital Comment on above:Performed By: #### TEMITOPE, HA1C #### [facility] ([id number]) [address], [address] [place], [place] [address]BLJ [Catalytic activity/Vol]14 U/LNormal0-41ProWiregrass Medical Center Mcmanus HospitalComment on above:Performed By: #### TEMITOPE, HA1C #### [facility] ([id number]) [address], [address] [place], [place] [address]Mlbahzdbi [Mass/Vol]0.6 mg/dLNormal0.3-1.2ProMedLima City Hospital HospitalComment on above:Performed By: #### TEMITOPE, HA1C #### [facility] ([id number]) [address], [address] [place], [place] [address]Jzscwox [Mass/Vol]8.8 mg/dLNormal8.5-10.5ProMedLima City Hospital HospitalComment on above:Performed By: #### TEMITOPE, HA1C #### [facility] ([id number]) [address], [address] [place], [place] [address]Ejgxpmtt [Moles/Vol]107 mmol/TItudqq30-194EtrQjknvd [place] HospitalComment on above:Performed By: #### TEMITOPE, HA1C #### [facility] ([id number]) [address], [address] [place], [place] [address]RJ3 [Moles/Vol]28 mmol/WImeazk14-20UrhPjjwhw [facility] Comment on above:Performed By: #### CMP, HA1C #### [facility] ([id number]) [address], [address] [place], [place] [address]Kewggkjmql [Mass/Vol]1.11 mg/dLNormal0.60-1.30ProSt. Charles Hospitalca Mcmanus HospitalComment on above:Result Comment: METHOD TRACEABLE TO IDMS STANDARD Performed By: #### CMP, HA1C #### [facility] ([id number]) [address], [address] [place], [place] [address]RAT/1.73 sq M.predicted among non-blacks MDRD (S/P/Bld) [Vol rate/Area]76 mL/min/{1.73_m2}Normal>59ProSelect Medical Ohiohealth Rehabilitation Hospital - DublinComment on above: Result Comment: Reported eGFR is based on the CKD-EPI 2020 equation that does not use a race coefficient.Performed By: #### TEMITOPE, WILLY #### [facility] ([id number]) [address], [address] [place], [place] [address]Jmqybek [Mass/Vol]156 mg/bNHbmm40-05GszDleqzbMemorial Health System [facility] Comment on above:Performed By: #### WILLY LINN #### [facility] ([id number]) [address], [address] [place], [place] [address]Clfikutyr [Moles/Vol]4.7 mmol/LNormal3.5-5.0ProSelect Medical Ohiohealth Rehabilitation Hospital - DublinComment on above:Performed By: #### TEMITOPE, HAMaria De Jesus #### [facility] ([id number]) [address], [address] [place], [place] [address]Szegvsr [Mass/Vol]6.8 g/dLNormal6.0-8.0[facility] Comment on above:Performed By: #### TEMITOPE, HA1C #### [facility] ([id number]) [address], [address] [place], [place] [address]Dueokz [Moles/Vol]142 mmol/OUbwmxf542-935ZniAitsxc [place] HospitalComment on above:Performed By: #### TEMITOPE, HA1C #### [facility] ([id number]) [address], [address] [place], [place] [address]Qsoi nitrogen [Mass/Vol]24 mg/dLHigh5-23ProMiami Valley Hospital HospitalComment on above:Performed By: #### TEMITOPE, HA1C #### [facility] ([id number]) [address], [address] [place], [place] [address]Trvpudptchlnl metabolic panelon 14-47-2202Xhudzcj [Mass/Vol]3.6 g/dL3.2 - 5.3 g/dLProWiregrass Medical Center Health SystemALP [Catalytic activity/Vol]117 U/L39 - 130 U/LProMedica Health SystemALT No additional P-5'-P [Catalytic activity/Vol] 16 U/L0 - 40 U/LProMedica Health SystemAnion gap [Moles/Vol]7 mmol/L5 - 15 mmol/LProMedica Health SystemAST [Catalytic activity/Vol]14 U/L0 - 41 U/L ProMKittson Memorial Hospital SystemBilirubin [Mass/Vol]0.6 mg/dL0.3 - 1.2 mg/dLMercy Hospital SystemCalcium [Mass/Vol]8.8 mg/dL8.5 - 10.5 mg/dLMercy Hospital System Chloride [Moles/Vol]107 mmol/L98 - 109 mmol/LPrBates County Memorial Hospitalica Health SystemCO2 [Moles/Vol]28 mmol/L22 - 32 mmol/LPrBates County Memorial Hospitalica Health SystemCreatinine [Mass/Vol] 1.11 mg/dL0.60 - 1.30 mg/dLMercy Hospital SystemComment on above:METHOD TRACEABLE TO [facility] STANDARDeGFR (CKD-EPI)non-race wuwqnvnnn99- [facility] VCUComment on above: Reported eGFR is based on the CKD-EPI 2020 equation that does not use a race coefficient. Glucose [Mass/Vol]156 mg/qKKhcb39 - 99 mg/dLMercy Hospital System Interpretation and review of laboratory resultsAbnormalMercy Hospital System Potassium [Moles/Vol]4.7 mmol/L3.5 - 5.0 mmol/LProMedica Health SystemProtein [Mass/Vol]6.8 g/dL6.0 - 8.0 g/dLMercy Hospital SystemSodium [Moles/Vol]142 mmol/L134 - 146 mmol/LPrBates County Memorial Hospitalica Health SystemUrea nitrogen [Mass/Vol]24 mg/dL High5 - 23 mg/dLMercy Hospital SystemProCleveland Clinic Union Hospital SystemHGB A1C (GLYCO-HGB)on 53-18-0433Mgtzpnc [Mass/Vol]143 mg/dLNormalProSelect Medical Ohiohealth Rehabilitation Hospital - DublinComment on above:Performed By: #### TEMITOPE, 44411-3 #### [facility] ([id number]) [address] [place] [address], [address] [place], [place] [address]UcI7b (Bld) [Mass fraction]6.6 %High4.4-5.6ProSelect Medical Ohiohealth Rehabilitation Hospital - DublinComment on above:Result Comment: NOTE ADA Guidelines Result HgbA1c Normal : less than 5.7 % Prediabetes : 5.7 % to 6.4 % Diabetes : > 6.4 % Use with caution in patients with abnormal hemoglobin variants as the half-life of red blood cells and in vivo glycation rates are affected.Performed By: #### TEMITOPE, 91549-2 #### [facility] ([id number]) [address] [place] [address], [address] [place], [place] [address]Tertterw specific Ag [Mass/Vol]on 42-27-1118CxwSrofsd Health SystemPSA SCREEN0.27 ng/mLNormal0.00-4.00[facility] HospitalComment on above:Result Comment: The method used for this test is Timmy [place] DXI chemiluminescent immunoassay. Values obtained by different assay methods cannot be used interchangeably.Performed By: #### TEMITOPE, 20381-3 #### [facility] ([id number]) [address] [place] [address], [address] [place], [place] [address]Anvpzedrr specific antigen screenon 54-58-9173Eheujbkw specific Ag [Mass/Vol]0.27 ng/mL0.00 - 4.00 ng/mLSt. Rita's HospitalComment on above: The method used for this test is Timmy [place] DXI chemiluminescent immunoassay. Values obtained by different assay methods cannot be used interchangeably. No Panel Informationon 18-04-7840Fxxxd B Apling, LOOM CLEANER 02/29/2024 1:06 PM L Inj/Asp: R subacromial bursa on 02/29/2024 1:02 PM Indications: pain Details: 20 G needle, posterior approach Medications: 40 mg methylPREDNISolone acetate 40 MG/ML Utilizing aseptic technique with universal precautions . Pt given injection Right Shoulder SA space Procedure, treatment alternatives, risks and benefits explained, specific risks discussed. Consent was given by the patient. [facility] HospitalMICROALBUMIN - ALBUMIN:CREATININE URINE RATIOon 63-97-8143AER/CREAT RATIO16.6 mg/g creatNormal0.0-30.0[facility] Comment on above:Performed By: #### JACKI #### [facility] ([id number]) [address] [place], [place] [address]Fsjzrdd DL <= 20 mg/L (U) [Mass/Vol]2.2 mg/dLHigh0.0-1.9 Pro[facility] Hospital - CantonComment on above:Performed By: #### JACKI #### [facility] ([id number]) [address] [place], [place] [address]OEIUA PYDLI982.81 mg/dLNormalProMiami Valley Hospital HospitalComment on above:Performed By: #### JACKI #### [facility] ([id number]) [address], [address] [place], [place] [address]HEC AND AUTO DIFFon 62-92-6349NIVDVGYW BASOPHIL0.0 X10E9/LNormal 0.0-0.2ProMedica [place] HospitalComment on above:Performed By: #### TEMITOPE COLES, 01392-4, , HA1C #### [facility] ([id number]) [address] [place], [place] [address]WFLYFVXQ NEUTROPHIL5.2 X10E9/LNormal1.5-6.6ProSt. Charles Hospitalca [place] HospitalComment on above:Performed By: #### TEMITOPE COLES, 60097-6, , HA1C #### [facility] ([id number]) [address], [address] [place], [place] [address]Wgauzsokm/100 WBC (Bld)0.5 %NormalMemorial Health System [facility] Comment on above:Performed By: #### CBCA CMP, , , HA1C #### [facility] ([id number]) [address], [address] [place], [place] [address]Gwbswdffnbn (Bld) [#/Vol]0.2 10*3/uLNormal0.0-0.4ProMiami Valley Hospital HospitalComment on above:Performed By: #### CBCA, CMP, , , HA1C #### [facility] ([id number]) [address] [place], [place] [address]Qjrweupmury/100 WBC (Bld)2.6 %NormalMemorial Health System [facility] Comment on above:Performed By: #### CBCCuca CMP, , , HA1C #### [facility] ([id number]) [address] [place], [place] [address]Sbbgvqnjtut distribution width (RBC) [Ratio]16.5 %High11.5-15.0 ProMselect specialty hospitala [place] City HospitalComment on above:Performed By: #### CBCA, CMP, , , HA1C #### [facility] ([id number]) [address] [place], [place] [address]Iabbtgweuj (Bld) [Volume fraction]37.1 %Pct00-24NuvPgsrio [place] HospitalComment on above:Performed By: #### CBCA, CMP, , , HA1C #### [facility] ([id number]) [address] [place], [place] [address]Arvkvftfet (Bld) [Mass/Vol]11.7 g/dLLow13.0-17.0ProMiami Valley Hospital HospitalComment on above:Performed By: #### CBCA, CMP, , , HA1C #### [facility] ([id number]) [address], [address] [place], [place] [address]Wdamlcljwuk (Bld) [#/Vol]1.3 10*3/uLNormal1.0-3.5PMartins Ferry HospitalComment on above:Performed By: #### CBCCuca, CMP, , , HA1C #### [facility] ([id number]) [address] [place], [place] [address]Zlhiqqnmcts/100 WBC (Bld)18.5 %NormalMemorial Health System [facility] Comment on above:Performed By: #### CBCCuca, TEMITOPE, , , HA1C #### [facility] ([id number]) [address] [place], [place] [address]ENH (RBC) [Entitic mass]25.5 zcJjj78-90GqrBytadpMemorial Health System [facility] Comment on above:Performed By: #### CBCTEMITOPE Thurman, , , HA1C #### [facility] ([id number]) [address] [place], [place] [address]UOUJ (RBC) [Mass/Vol]31.6 g/wBEco63-27HquBeqfdqMemorial Health System [facility] Hospital Comment on above:Performed By: #### CBCA, CMP, , , HA1C #### [facility] ([id number]) [address] [place], [place] [address]XKL (RBC) [Entitic vol]81 bYHmopzr60-055GyuLzgpvbMemorial Health System Selby General HospitalComment on above:Performed By: #### CBCA, CMP, , , HA1C #### [facility] ([id number]) [address], [address] [place], [place] [address]Ansbfsxph (Bld) [#/Vol]0.3 10*3/uLNormal0-0.9ProSelect Medical Ohiohealth Rehabilitation Hospital - DublinComment on above:Performed By: #### CBCCuca, CMP, 50525-7, , HA1C #### [facility] ([id number]) [address] [place], [place] [address]Yawqbbrzr/100 WBC (Bld)4.9 %NormalMemorial Health System [facility] Hospital Comment on above:Performed By: #### CBCA, CMP, 16901-4, , HA1C #### [facility] ([id number]) [address], [address] [place], [place] [address]Noifclomufl/100 WBC (Bld)73.5 %[facility] Comment on above:Performed By: #### CBCCuca, CMP, , , HA1C #### [facility] ([id number]) [address] [place], [place] [address]Jqjmiibn mean volume (Bld) [Entitic vol]7.9 fLNormal7-12 ProMChillicothe HospitalComment on above:Performed By: #### CBCCuca, CMP, , , HA1C #### [facility] ([id number]) [address], [address] [place], [place] [address]Cxumrevdw (Bld) [#/Vol]240 10*3/nKPynuwg675-102PqjRptjvl [place] HospitalComment on above:Performed By: #### CBCA, CMP, 24985-3, , HA1C #### [facility] ([id number]) [address], [address] [place], [place] [address]YJN COUNT4.61 X10E12/LNormal4.10-5.70[facility] Comment on above:Performed By: #### CBCA, CMP, , , HA1C #### [facility] ([id number]) [address], [address] [place], [place] [address]CMF (Bld) [#/Vol]7.1 10*3/uLNormal4.0-11.0ProMedica Mcmanus HospitalComment on above:Performed By: #### TEMITOPE COLES, 88733-5, , HA1C #### [facility] ([id number]) [address], [address] [place], [place] [address]WVPRHOABJCMAP METABOLIC PANELon 32-41-4879Zsnxgly [Mass/Vol]3.6 g/dLNormal3.2-5.3ProMedica Mcmanus HospitalComment on above:Performed By: #### TEMITOPE COLES, 62318-8, , HA1C #### [facility] ([id number]) [address], [address] [place], [place] [address]RTR [Catalytic activity/Vol]121 U/KDydsjm08-110WrmKwbpng Mcmanus HospitalComment on above:Performed By: #### TEMITOPE COLES, 62614-2, , HA1C #### [facility] ([id number]) [address], [address] [place], [place] [address]NAQ [Catalytic activity/Vol]26 U/LNormal0-40ProMedica [facility]manus HospitalComment on above:Performed By: #### TEMITOPE COLES, 46711-2, , HA1C #### [facility] ([id number]) [address], [address] [place], [place] [address]Yzcqs gap [Moles/Vol]9 mmol/LNormal5-15[facility] Comment on above:Performed By: #### SANKET CMP, 79135-5, , HA1C #### [facility] ([id number]) [address], [address] [place], [place] [address]SOH [Catalytic activity/Vol]20 U/LNormal0-41ProMedica [facility]man[facility] HospitalComment on above:Performed By: #### TEMITOPE COLES, 46520-6, , HA1C #### [facility] ([id number]) [address], [address] [place], [place] [address]Mbmoryite [Mass/Vol]0.7 mg/dLNormal0.3-1.2ProMedLima City Hospital HospitalComment on above:Performed By: #### TEMITOPE COLES, , , HA1C #### [facility] ([id number]) [address] [place], [place] [address]Uaggunx [Mass/Vol]9.2 mg/dLNormal8.5-10.5PMercy Health St[facility] HospitalComment on above:Performed By: #### TEMITOPE COLES, , , HA1C #### [facility] ([id number]) [address], [address] [place], [place] [address]Wvksivyr [Moles/Vol]106 mmol/ENjesay14-389KyrYamjfb [place] HospitalComment on above:Performed By: #### TEMITOPE COLES, , , HA1C #### [facility] ([id number]) [address], [address] [place], [place] [address]YU7 [Moles/Vol]28 mmol/FRwifsd31-36VesOvfwqw [facility] Comment on above:Performed By: #### TEMITOPE COLES, , , HA1C #### [facility] ([id number]) [address], [address] [place], [place] [address]Gwmvbngjqi [Mass/Vol]1.19 mg/dLNormal0.60-1.30ProSt. Charles Hospitalca [place] City HospitalComment on above:Result Comment: METHOD TRACEABLE TO IDMS STANDARD Performed By: #### TEMITOPE COLES, , , HA1C #### [facility] ([id number]) [address] [place], [place] [address]ODR/1.73 sq M.predicted among non-blacks MDRD (S/P/Bld) [Vol rate/Area]70 mL/min/{1.73_m2}Normal>59ProSelect Medical [facility] Rehabilitation Hospital - DublinComment on above: Result Comment: Reported eGFR is based on the CKD-EPI 2020 equation that does not use a race coefficient.Performed By: #### TEMITOPE COLES, , , HA1C #### [facility] ([id number]) [address], [address] [place], [place] [address]Mxowcla [Mass/Vol]130 mg/dNQpzw08-76UynQtvebcMemorial Health System [facility] Comment on above:Performed By: #### TEMITOPE COLES, , , HA1C #### [facility] ([id number]) [address], [address] [place], [place] [address]Yztqmlkhy [Moles/Vol]4.8 mmol/LNormal3.5-5.0ProSelect Medical [facility] Rehabilitation Hospital - DublinComment on above:Performed By: #### TEMITOPE COLES, , , HA1C #### [facility] ([id number]) [address] [place], [place] [address]Ytvmwio [Mass/Vol]7.0 g/dLNormal6.0-8.0[facility] Comment on above:Performed By: #### TEMITOPE COLES, , , HA1C #### [facility] ([id number]) [address] [place], [place] [address]Bfxsua [Moles/Vol]143 mmol/GMaiheq410-313PnnDnuabm [place] HospitalComment on above:Performed By: #### TEMITOPE COLES, , , HA1C #### [facility] ([id number]) [address], [address] [place], [place] [address]Ljjg nitrogen [Mass/Vol]31 mg/dLHigh5-23Pro[facility] - DublinComment on above:Performed By: #### TEMITOPE COLES, 47751-7, 00718-4, HA1C #### [facility] ([id number]) [address], [address] [place], [place] [address]AZZ A1C (GLYCO-HGB)on 11-79-3936Nxpwcrg [Mass/Vol]157 mg/dL NormalProSelect Medical [facility] Rehabilitation Hospital - DublinComment on above:Performed By: #### TEMITOPE COLES, 68954-2, , YOSI1C #### [facility] ([id number]) [address], [address] [place], [place] [address]IxW3d (Bld) [Mass fraction]7.1 %High4.4-5.6Pro[facility] - DublinComment on above:Result Comment: NOTE ADA Guidelines Result HgbA1c Normal : less than 5.7 % Prediabetes : 5.7 % to 6.4 % Diabetes : > 6.4 % Use with caution in patients with abnormal hemoglobin variants as the half-life of red blood cells and in vivo glycation rates are affected.Performed By: #### TEMITOPE COLES, 17816-8, , HA1C #### [facility] ([id number]) [address], [address] [place], [place] [address]Lkgsz 1996 panelon 96-29-7492Dgnazzdfmqi [Mass/Vol]77 mg/dLLow 150-200[facility] [facility] Hospital - DublinComment on above:Performed By: #### TEMITOPE COLES, 28323-6, , HA1C #### [facility] ([id number]) [address], [address] [place], [place] [address]Qhlioyzrwmw in HDL [Mass/Vol]27 mg/dLLow>39ProMi[facility] Hospital HospitalComment on above:Result Comment: HDL <40 mg/dL - High Risk HDL > or = 40mg/dL- Desirable HDL >60 mg/dL - Negative Risk Performed By: ###Son COLES CMP, 52899-8, , HA1C #### [facility] ([id number]) [address], [address] [place], [place] [address]Hamkqfilkzr in LDL [Mass/Vol]35 mg/dLNormal<130ProMi[facility] HospitalComment on above:Result Comment: LDL <100 mg/dL - Desirable LDL >160 mg/dL - High Risk Performed By: ###Son COLES CMP, 02038-0, , HA1C #### [facility] ([id number]) [address], [address] [place], [place] [address]Wmjrbhdbtwk in VLDL [Mass/Vol]15 mg/dLNormal0-30Pro[facility] HospitalComment on above:Performed By: ###Son COLES CMP, 02698-4, , HA1C #### [facility] ([id number]) [address], [address] [place], [place] [address]VALOJVRLAYG:HDL2.6Oswnpb9.0-5.0Pro[facility] Hospital HospitalComment on above:Performed By: ###Son COLES CMP, 33040-6, , HA1C #### [facility] ([id number]) [address], [address] [place], [place] [address]Bnhyyfwurmzt [Mass/Vol]75 mg/kKGwjvml61-271QwwRsaqth [facility]us HospitalComment on above:Performed By: #### TEMITOPE COLES, 03869-4, , HA1C #### [facility] ([id number]) [address], [address] [place] [address]QIVIGFNGBey 44-15-7391Grefubewa [Mass/Vol]1.9 mg/dLNormal1.8-2.6 [facility] HospitalComment on above:Performed By: #### TEMITOPE COLES, 86414-1, , HA1C #### [facility] ([id number]) [address], [address] [place], [place] [address]CEYRJRJVMAZEM METABOLIC PANELon 14-96-3386Ihczwim [Mass/Vol]3.8 g/dLNormal3.2-5.3Pro[facility] HospitalComment on above:Performed By: #### TEMITOPE, 75611-0 #### [facility] ([id number]) [address], [address] [place], [place] [address]ALA [Catalytic activity/Vol]101 U/CJhxzjl07-514TnaOczcmg [facility] HospitalComment on above:Performed By: #### TEMITOPE, 69984-8 #### [facility] ([id number]) [address], [address] [place], [place] [address]PRF [Catalytic activity/Vol]14 U/LNormal0-40[facility] HospitalComment on above:Performed By: #### TEMITOPE, 93427-3 #### [facility] ([id number]) [address], [address] [place], [place] [address]Teimi gap [Moles/Vol]8 mmol/LNormal5-15[facility] Comment on above:Performed By: #### TEMITOPE, 65090-2 #### [facility] ([id number]) [address], [address] [place], [place] [address]OMZ [Catalytic activity/Vol]14 U/LNormal0-41ProSt. Charles Hospitalca [facility]manus HospitalComment on above:Performed By: #### TEMITOPE, 16344-5 #### [facility] ([id number]) [address], [address] [place], [place] [address]Wfipzbvkd [Mass/Vol]0.6 mg/dLNormal0.3-1.2PMercy Health [facility] HospitalComment on above:Performed By: #### TEMITOPE, 89867-5 #### [facility] ([id number]) [address], [address] [place], [place] [address]Jgplvbe [Mass/Vol]8.8 mg/dLNormal8.5-10.5PMercy Health St[facility] HospitalComment on above:Performed By: #### TEMITOPE, 71540-8 #### [facility] ([id number]) [address], [address] [place], [place] [address]Lhapxqnl [Moles/Vol]100 mmol/BPbgqxs17-124WqtJvaipb [place] HospitalComment on above:Performed By: #### TEMITOPE, 38851-8 #### [facility] ([id number]) [address], [address] [place], [place] [address]OR6 [Moles/Vol]31 mmol/GGcxhds72-81KvtLjhnwi [facility] Comment on above:Performed By: #### TEMITOPE, 80383-8 #### [facility] ([id number]) [address], [address] [place], [place] [address]Kkwzekqhvs [Mass/Vol]1.29 mg/dLNormal0.60-1.30ProWiregrass Medical Center [facility]manus HospitalComment on above:Result Comment: METHOD TRACEABLE TO IDMS STANDARD Performed By: #### TEMITOPE, 91159-7 #### [facility] ([id number]) [address], [address] [place], [place] [address]FCH/1.73 sq M.predicted among non-blacks MDRD (S/P/Bld) [Vol rate/Area]64 mL/min/{1.73_m2}Normal>59ProSelect Medical Ohiohealth Rehabilitation Hospital - DublinComment on above: Result Comment: Reported eGFR is based on the CKD-EPI 2020 equation that does not use a race coefficient.Performed By: #### TEMITOPE, 63746-4 #### [facility] ([id number]) [address], [address] [place], [place] [address]Ipdtnse [Mass/Vol]119 mg/zFAdtf02-11HhtHeqrmeSelect Medical [facility]health [facility] Comment on above:Performed By: #### TEMITOPE, 30790-6 #### [facility] ([id number]) [address], [address] [place], [place] [address]Pxtopdpkv [Moles/Vol]4.4 mmol/LNormal3.5-5.0ProSelect Medical Ohiohealth Rehabilitation Hospital - DublinComment on above:Performed By: #### TEMITOPE, 41747-7 #### [facility] ([id number]) [address], [address] [place], [place] [address]Zrkylvh [Mass/Vol]7.2 g/dLNormal6.0-8.0[facility] Comment on above:Performed By: #### TEMITOPE, 38455-1 #### [facility] ([id number]) [address], [address] [place], [place] [address]Kwlsvg [Moles/Vol]139 mmol/GWahsds318-361NuwUolbad [place] HospitalComment on above:Performed By: #### TEMITOPE, 13819-6 #### [facility] ([id number]) [address], [address] [place], [place] [address]Evqk nitrogen [Mass/Vol]21 mg/dLNormal5-23ProSelect Medical [facility] Hospital - DublinComment on above:Performed By: #### TEMITOPE, 23486-2 #### [facility] ([id number]) [address], [address] [place], [place] [address]Aioammefeubbq metabolic panelon 63-19-0583Gotzgox [Mass/Vol]3.8 g/dL3.2 - 5.3 g/dLProCleveland Clinic Union Hospital SystemALP [Catalytic activity/Vol]101 U/L39 - 130 U/[facility] SystemALT No additional P-5'-P [Catalytic activity/Vol] 14 U/L0 - 40 U/[facility] SystemAnion gap [Moles/Vol]8 mmol/L5 - 15 mmol/LPrHeart of the [facility] Health SystemAST [Catalytic activity/Vol]14 U/L0 - 41 U/L [facility] HospitalBilirubin [Mass/Vol]0.6 mg/dL0.3 - 1.2 mg/dLMercy Hospital SystemCalcium [Mass/Vol]8.8 mg/dL8.5 - 10.5 mg/dLSt. Rita's Hospital Chloride [Moles/Vol]100 mmol/L98 - 109 mmol/[facility] SystemCO2 [Moles/Vol]31 mmol/L22 - 32 mmol/[facility] SystemCreatinine [Mass/Vol] 1.29 mg/dL0.60 - 1.30 mg/dLSt. Rita's HospitalComment on above:METHOD TRACEABLE TO [facility] STANDARDeGFR (CKD-EPI)non-race zvmrrxnoa78- [facility] Richmond at VCUComment on above: Reported eGFR is based on the CKD-EPI 2020 equation that does not use a race coefficient. Glucose [Mass/Vol]119 mg/cLXknw27 - 99 mg/dLSt. Rita's HospitalPotassium [Moles/Vol]4.4 mmol/L3.5 - 5.0 mmol/[facility] SystemProtein [Mass/Vol] 7.2 g/dL6.0 - 8.0 g/dLNovant Health Presbyterian Medical Centerodium [Moles/Vol]139 mmol/L134 - 146 mmol/[facility] SystemUrea nitrogen [Mass/Vol]21 mg/dL5 - 23 mg/dL [facility]'s HospitalHGB A1C (GLYCO-HGB)on 57-05-2564Dzxzadc [Mass/Vol]134 mg/dLNoMercy Health Anderson HospitalComment on above:Performed By: #### [facility], 21984-1 #### [facility] ([id number]) [address], [address] [place], [place] [address]TxH7d (Bld) [Mass fraction]6.3 %High4.4-5.6[facility] HospitalComment on above:Result Comment: NOTE ADA Guidelines Result HgbA1c Normal : less than 5.7 % Prediabetes : 5.7 % to 6.4 % Diabetes : > 6.4 % Use with caution in patients with abnormal hemoglobin variants as the half-life of red blood cells and in vivo glycation rates are affected.Performed By: #### [facility], 49857-4 #### [facility] ([id number]) [facility], [address] [place], [place] [address]Amley 1995 panelon 34-46-3260Xlrwdhjobht [Mass/Vol]145 mg/dLLow 150 - 200 mg/dLSt. Rita's HospitalCholesterol in HDL [Mass/Vol]30 mg/dLLow39 - PINF mg/dLSt. Rita's HospitalComment on above: HDL <40 mg/dL - High Risk HDL > or = 40mg/dL- Desirable HDL >60 mg/dL - Negative Risk Cholesterol in LDL [Mass/Vol]90 mg/dLNINF - 130 mg/dLSt. [facility]'s Hospital Comment on above: LDL <100 mg/dL - Desirable LDL >160 mg/dL - High Risk Cholesterol in VLDL [Mass/Vol]25 mg/dL0 - 30 mg/dLSt. Rita's Hospital Cholesterol.total/Cholesterol in HDL [Mass ratio]4.8 {ratio}1.0 - 5.0St. Rita's HospitalTriglyceride [Mass/Vol]123 mg/dL27 - 150 mg/dLSt. Rita's HospitalCholesterol [Mass/Vol]145 mg/dVTcd896-736NswHatdzp Sioux City HospitalComment on above:Performed By: #### TEMITOPE, 44036-3 #### [facility] ([id number]) [address], [address] [place], [place] [address]Grrzngyuegr in HDL [Mass/Vol]30 mg/dLLow>39ProMedica [facility] HospitalComment on above:Result Comment: HDL <40 mg/dL - High Risk HDL > or = 40mg/dL- Desirable HDL >60 mg/dL - Negative Risk Performed By: #### TEIMTOPE, 12072-7 #### [facility] ([id number]) [address], [address] [place], [place] [address]Mficyczmzaj in LDL [Mass/Vol]90 mg/dLNormal<130Pro[facility] HospitalComment on above:Result Comment: LDL <100 mg/dL - Desirable LDL >160 mg/dL - High Risk Performed By: #### TEMITOPE, 28158-8 #### [facility] ([id number]) [address], [address] [place], [place] [address]Hspdksseznl in VLDL [Mass/Vol]25 mg/dLNormal0-30Pro[facility] HospitalComment on above:Performed By: #### TEMITOPE, 18230-0 #### [facility] ([id number]) [address], [address] [place], [place] [address]JVPUSNVDQPA:HDL4.3Nzegwi9.0-5.0ProMediSelect Medical [facility] HospitalComment on above:Performed By: #### TEMITOPE, 01147-6 #### [facility] ([id number]) [address] [place], [place] [address]Wzenuxvpeufc [Mass/Vol]123 mg/nSZkonyp16-686FlrEmxljvMemorial Health System Selby General HospitalComment on above:Performed By: #### CMP, 00765-0 #### [facility] ([id number]) [address], [address] [place], [place] [address]Mm Panel Informationon 18-28-9351Yqobanwbbudjuc and review of laboratory resultsAbnoEncompass Health Rehabilitation Hospital of Nittany ValleyCB AUTO DIFFon [id number] #0.1 103/ulNormal0.0-0.1The [facility] HospitalComment on above:Performed By: #### TSH, LIPID, CMP, PSAD, T4 #### [facility] [address] [place] [address] Wanda KarenBasophils/100 WBC (Bld)0.8 %Normal0.2-2.0[facility] Comment on above:Performed By: #### TSH, LIPID, CMP, PSAD, T4 #### [facility] [address] [place] [address] Wanda KarenEO #0.3 103/ulNormal0.0-0.7The [facility] HospitalComment on above: Performed By: #### TSH, LIPID, CMP, PSAD, T4 #### [facility] [address] [id number] Wanda KarenEosinophils/100 WBC (Bld)3.5 %Normal0.9-7.0[facility] Comment on above:Performed By: #### TSH, LIPID, CMP, PSAD, T4 #### [facility] [address] [id number] Wanda KarenErythrocyte distribution width (RBC) [Ratio]15.2 %Critically high 11.0-15.0The [facility] HospitalComment on above:Performed By: #### TSH, LIPID, CMP, PSAD, T4 #### [facility] [address] [place] [address] Wanda KarenHematocrit (Bld) [Volume fraction]42.3 %Jjzlyy67.0-54.0The [facility] HospitalComment on above:Performed By: #### TSH, LIPID, CMP, PSAD, T4 #### [facility] [address] [address] Wanda KarenHemoglobin (Bld) [Mass/Vol]13.3 g/dLCritically low14.0-18.0The [facility] HospitalComment on above:Performed By: #### TSH, LIPID, CMP, PSAD, T4 #### [facility] [address] [place] [address] Wanda KarenIG #0.04 10e3/ulCritically high0.00-0.03The [facility] County Hospitalment on above:Performed By: #### TSH, LIPID, CMP, PSAD, T4 #### [facility] [address] [place] [address] Wanda KarenIG %0.4 %Normal0.0-0.5The [facility] Hospitalment on above: Performed By: #### TSH, LIPID, CMP, PSAD, T4 #### [facility] [address] [place] [address] Wanda KarenLYMPH #2.8 103/ulNormal1.2-3.8The [facility] Hospitalment on above: Performed By: #### TSH, LIPID, CMP, PSAD, T4 #### [facility] [address] [place] [address] Wanda KarenLymphocytes/100 WBC (Bld)30.2 %Diurow23.5-60.0[facility] Comment on above:Performed By: #### TSH, LIPID, CMP, PSAD, T4 #### [facility] [address] [place] [address] Wanda KarenMANUAL DIFF REQNONormalThe [facility] HospitalComment on above: Performed By: #### TSH, LIPID, CMP, PSAD, T4 #### [facility] [address] [place] [address] Wanda KarenMCH (RBC) [Entitic mass]26.4 wwIrnbzd44.9-34.0[facility] Comment on above:Performed By: #### TSH, LIPID, CMP, PSAD, T4 #### [facility] [address] [place] [address] Wanda ConradHC (RBC) [Mass/Vol]31.4 g/vJDdrbev71.9-35.2[facility] Comment on above:Performed By: #### TSH, LIPID, CMP, PSAD, T4 #### [facility] [address] [place] [address] Wanda ConradMARY HURLEY [facility] (RBC) [Entitic vol]83.9 hRGkfwtj90.0-94.0The [facility] Comment on above:Performed By: #### TSH, LIPID, CMP, PSAD, T4 #### [facility] [address] [place] [address] Wanda KarenMONO #0.6 103/ulNormal0.3-0.8The [facility] HospitalComment on above: Performed By: #### TSH, LIPID, CMP, PSAD, T4 #### [facility] [address] [place] [address] Wanda KarenMonocytes/100 WBC (Bld)6.2 %Normal1.7-12.0[facility] Comment on above:Performed By: #### TSH, LIPID, CMP, PSAD, T4 #### [facility] [address] [place] [address] Wanda AntoineenNEUT #5.4 103/ulNormal1.4-6.5The [facility] HospitalComment on above: Performed By: #### TSH, LIPID, CMP, PSAD, T4 #### [facility] [address] [place] [address] Wanda KarenNeutrophils/100 WBC (Bld)58.9 %Zifkda42.0-75.0[facility] Comment on above:Performed By: #### TSH, LIPID, CMP, PSAD, T4 #### [facility] [address] [place] [address] Wanda KarenPlatelet mean volume (Bld) [Entitic vol]10.5 fLNormal9.5-13.5ThCommunity Regional Medical CenterComment on above:Performed By: #### TSH, LIPID, CMP, PSAD, T4 #### [facility] [address] [place] [address] Wanda AntoinePxqtxMGB015 103/ibYtjgli751-590TysOhiohealth Southeastern Medical CenterComment on above: Performed By: #### TSH, LIPID, CMP, PSAD, T4 #### [facility] [address] [place] [address] Wanda KarenRBC5.04 106/ulNormal4.70-6.10The [facility] HospitalComment on above: Performed By: #### TSH, LIPID, CMP, PSAD, T4 #### [facility] [address] [place] [address] Wanda KarenWBC9.1 103/ulNormal4.0-11.0Ohiohealth Southeastern Medical CenterComment on above: Performed By: #### TSH, LIPID, CMP, PSAD, T4 #### [facility] [address] [place] [address] Wanda KarenLIPID PROFILEon [id number]-HDL RATIO NORMSFayette County Memorial HospitalComment on above:Result Comment: 3.3 - 4.4 LOW RISK 4.4 - 7.1 AVERAGE RISK 7.1 - 11.0 MODERATE RISK >11.0 HIGH RISKPerformed By: #### TSH, LIPID, CMP, PSAD, T4 #### [facility] [address] [place] [address] Wanda KarenCholesterol [Mass/Vol]137 mg/dLNormal<=200[facility] Comment on above:Performed By: #### TSH, LIPID, CMP, PSAD, T4 #### [facility] [address] [place] [address] Wanda KarenCholesterol in HDL [Mass/Vol]31 mg/dLMercy Health Comment on above:Performed By: #### TSH, LIPID, CMP, PSAD, T4 #### [facility] [address] [place] [address] Wanda KarenCholesterol in LDL [Mass/Vol]81.8 mg/dLMercy Health Comment on above:Performed By: #### TSH, LIPID, CMP, PSAD, T4 #### [facility] [address] [place] [address] Wanda KarenCholesterol.total/Cholesterol in HDL [Mass ratio]4.4 {ratio}Normal The [facility] HospitalComment on above:Performed By: #### TSH, LIPID, CMP, PSAD, T4 #### [facility] [address] [place] [address] Wanda KarenHDL NORMAL> or = 60 mg/dl - LOW CARDIOVASCULAR RISK <40 mg/dl - HIGH CARDIOVASCULAR RISKNoMercy Health – The Jewish HospitalComment on above:Performed By: #### TSH, LIPID, CMP, PSAD, T4 #### [facility] [address] [place] [address] Wanda KarenLDL CALC NORMALSEE BELOWNoMercy Health – The Jewish HospitalComment on above: Result Comment: <100 mg/dl OPTIMAL 100 - 129 mg/dl NEAR OR ABOVE OPTIMAL 130 - 159 mg/dl BORDERLINE HIGH 160 - 189 mg/dl HIGH >190 mg/dl VERY HIGHPerformed By: #### TSH, LIPID, CMP, PSAD, T4 #### [facility] [address] [place] [address] Wanda KarenTriglyceride [Mass/Vol]121 mg/dLNormal<=150[facility] Comment on above:Performed By: #### TSH, LIPID, CMP, PSAD, T4 #### [facility] [address] [place] [address] Wanad KarenVLDL CALC24.2 mg/dLMercy HealthComment on above: Performed By: #### TSH, LIPID, CMP, PSAD, T4 #### [facility] [address] [place] [address] Wanda KarenPROF 14(COMP METB)on 44-98-1217Zykmfqq [Mass/Vol]3.3 g/dLCritically low3.5-5.0Ohio[facility] Southeastern Medical CenterComment on above:Performed By: #### TSH, LIPID, CMP, PSAD, T4 #### [facility] [address] [id number] Wanda KarenAlbumin/Globulin [Mass ratio]0.7 {ratio}NormalOhiohealth Southeastern Medical Center Comment on above:Performed By: #### TSH, LIPID, CMP, PSAD, T4 #### [facility] [address] [address] Wanda KarenALP [Catalytic activity/Vol]113 U/QFqrdya15-605TpiOhiohealth Southeastern Medical Center Comment on above:Performed By: #### TSH, LIPID, CMP, PSAD, T4 #### [facility] [address] [place] [address] Wanda KarenALT [Catalytic activity/Vol]25 U/UNuvvey46-41XvaOhiohealth Southeastern Medical Center Comment on above:Performed By: #### TSH, LIPID, CMP, PSAD, T4 #### [facility] [address] [place] [address] Wanda KarenAnion gap [Moles/Vol]12.4 mmol/LNormalOhiohealth Southeastern Medical CenterComment on above:Performed By: #### TSH, LIPID, CMP, PSAD, T4 #### [facility] [address] [place] [address] Wanda KarenAST [Catalytic activity/Vol]16 U/LCritically jvp80-09BtqOhiohealth Southeastern Medical CenterComment on above:Performed By: #### TSH, LIPID, CMP, PSAD, T4 #### [facility] [address] [place], [place] [id number] Wanda KarenBilirubin [Mass/Vol]0.4 mg/dLNormal0.2-1.3TSumma Health Barber[facility] Campus Comment on above:Performed By: #### TSH, LIPID, CMP, PSAD, T4 #### [facility] [address] [place], [place] [id number] Wanda KarenCalcium [Mass/Vol]8.8 mg/dLNormal8.4-10.2[facility] Comment on above:Performed By: #### TSH, LIPID, CMP, PSAD, T4 #### [facility] [address] [place] [address] Wanda KarenChloride [Moles/Vol]102 mmol/FYsqqdb54-591Rmy [facility] Comment on above:Performed By: #### TSH, LIPID, CMP, PSAD, T4 #### [facility] [address] [place] [address] Wanda KarenCO2 [Moles/Vol]30.0 mmol/CAdnqvj82.0-30.0The [facility] Comment on above:Performed By: #### TSH, LIPID, CMP, PSAD, T4 #### [facility] [address] [place] [address] Wanad KarenCreatinine [Mass/Vol]1.29 mg/dLCritically high0.66-1.25The [facility] HospitalComment on above:Performed By: #### TSH, LIPID, CMP, PSAD, T4 #### [facility] [address] [place] [address] Wanda KarenEGFR-AF GUINEAN>60Normal>=60Ohiohealth Southeastern Medical CenterComment on above: Performed By: #### TSH, LIPID, CMP, PSAD, T4 #### [facility] [address] [place] [address] Wanda KarenEGFR-NON AF LQVTUBDQ06 mL/min/1.04m5Hsnpdyztar low>=60The [facility] HospitalComment on above:Performed By: #### TSH, LIPID, CMP, PSAD, T4 #### [facility] [address] [place] [address] Wanda KarenGlobulin (S) [Mass/Vol]4.5 g/dLNormalThe [facility] HospitalComment on above:Performed By: #### TSH, LIPID, CMP, PSAD, T4 #### [facility] [address] [place] [address] Wanda KarenGlucose [Mass/Vol]153 mg/dLCritically stgy45-915TvjOhiohealth Southeastern Medical CenterComment on above:Performed By: #### TSH, LIPID, CMP, PSAD, T4 #### [facility] [address] [place] [address] Wanda KarenPotassium [Moles/Vol]4.4 mmol/LNormal3.4-5.0[facility] Comment on above:Performed By: #### TSH, LIPID, CMP, PSAD, T4 #### [facility] [address] [place] [address] Wanda KarenProtein [Mass/Vol]7.8 g/dLNormal6.1-8.2The [facility] HospitalComment on above:Performed By: #### TSH, LIPID, CMP, PSAD, T4 #### [facility] [address] [place] [address] Wanda KarenSodium [Moles/Vol]140 mmol/UVwzypz173-481Src [facility] Comment on above:Performed By: #### TSH, LIPID, CMP, PSAD, T4 #### [facility] [address] [place] [address] Wanda KarenUrea nitrogen [Mass/Vol]28.0 mg/dLCritically high9.0-20.0The [facility] HospitalComment on above:Performed By: #### TSH, LIPID, CMP, PSAD, T4 #### [facility] [address] [place], [place] [id number] Wanda KarenUrea nitrogen/Creatinine [Mass ratio]21.7 mg/mgNormalThe [facility] HospitalComment on above:Performed By: #### TSH, LIPID, CMP, PSAD, T4 #### [facility] [address] [place] [address] Wanda ExjzwB3pg [id number] [Mass/Vol]5.90 ug/dLNormal5.53-11.00The [facility] HospitalComment on above:Performed By: #### TSH, LIPID, CMP, PSAD, T4 #### [facility] [address] [place] [address] Wanda KarenTSHon 89-08-9312BDZ8.487 uIU/mLNormal0.470-4.680The [facility] HospitalComment on above:Performed By: #### TSH, LIPID, CMP, PSAD, T4 #### [facility] [facility] [address] [address] [facility] of God HospitalComment on above:Result Comment: <0.34 UIU/ml HYPERTHYROID 0.34-5.60 UIU/ml EUTHYROID >5.60 UIU/ml HYPOTHYROIDPerformed By: #### TSH, LIPID, CMP, PSAD, T4 #### [facility] [address] [address] Wanda KarenXR LSPINE MIN 4 VIEWSon [id number] LSPINE MIN 4 VIEWSEXAMINATION: XR LSPINE MIN 4 VIEWS HISTORY: Chronic [...] Electronically authenticated by: EFRA HERBERT Date: 2020-04-04 15:[address] [place], [place] [address]ACETAMINOPHENon [id number] [Mass/Vol]ug/mL Critically low10.1-30.0[facility] Medical CenterComment on above:Performed By: #### ACET #### [facility] [address] [place] [address] Wanda KarenAMMONIAon [id number] (P) [Moles/Vol]7 umol/LCritically low 10-30[facility] Medical CenterComment on above:Performed By: #### AMM #### [facility] [address] [place] [address] Wanda AntoineenCBC AUTO DIFFon [id number] #0.0 103/ulNormal0.0-0.1[facility] Medical CenterComment on above:Performed By: #### TSH, LIPID, CMP, PSAD, T4 #### [facility] [address] [place] [address] Wanda AntoineenBasophils/100 WBC (Bld)0.4 %Normal0.2-2.0The [facility] Comment on above:Performed By: #### TSH, LIPID, CMP, PSAD, T4 #### [facility] [address] [place] [address] Wanda KarenEO #0.2 103/ulNormal0.0-0.7The [facility] HospitalComment on above: Performed By: #### TSH, LIPID, CMP, PSAD, T4 #### [facility] [address] [place] [address] Wanda KarenEosinophils/100 WBC (Bld)1.8 %Normal0.9-7.0The [facility] Comment on above:Performed By: #### TSH, LIPID, CMP, PSAD, T4 #### [facility] [address] [place] [address] Wanda KarenErythrocyte distribution width (RBC) [Ratio]14.1 %Ugazyn09.0-15.0The [facility] HospitalComment on above:Performed By: #### TSH, LIPID, CMP, PSAD, T4 #### [facility] [address] [place] [address] Wanda KarenHematocrit (Bld) [Volume fraction]41.2 %Critically low42.0-54.0The [facility] HospitalComment on above:Performed By: #### TSH, LIPID, CMP, PSAD, T4 #### [facility] [address] [place] [address] Wanda KarenHemoglobin (Bld) [Mass/Vol]13.3 g/dLCritically low14.0-18.0The [facility] HospitalComment on above:Performed By: #### TSH, LIPID, CMP, PSAD, T4 #### [facility] [address] [place] [address] Wanda KarenIG #0.05 10e3/ulCritically high0.00-0.03The [facility] HospitalComment on above:Performed By: #### TSH, LIPID, CMP, PSAD, T4 #### [facility] [address] [place] [address] Wanda KarenIG %0.5 %Normal0.0-0.5The [facility] HospitalComment on above: Performed By: #### TSH, LIPID, CMP, PSAD, T4 #### [facility] [address] [place] [address] Wanda AntoineenLYMPH #2.3 103/ulNormal1.2-3.8The [facility] HospitalComment on above: Performed By: #### TSH, LIPID, CMP, PSAD, T4 #### [facility] [address] [place] [address] Wanda ConradLymphocytes/100 WBC (Bld)21.1 %Rlnwkd36.5-60.0[facility] Comment on above:Performed By: #### TSH, LIPID, CMP, PSAD, T4 #### [facility] [address] [place] [address] Wanda KarenMANUAL DIFF REQNONormalThe [facility] HospitalComment on above: Performed By: #### TSH, LIPID, CMP, PSAD, T4 #### [facility] [address] [place] [address] W[address] KarSt. [facility] (RBC) [Entitic mass]26.1 uaHmptag22.9-34.0[facility] Comment on above:Performed By: #### TSH, LIPID, CMP, PSAD, T4 #### [facility] [address] [place] [address] W[address] KarSt. [facility] (RBC) [Mass/Vol]32.3 g/fIMylzsf30.9-35.2[facility] Comment on above:Performed By: #### TSH, LIPID, CMP, PSAD, T4 #### [facility] [address] [place] [address] Wanda KarSurgeons Choice [facility] (RBC) [Entitic vol]80.9 gADbimnl76.0-94.0[facility] Comment on above:Performed By: #### TSH, LIPID, CMP, PSAD, T4 #### [facility] [address] [place] [address] Wanda KarenMONO #0.5 103/ulNormal0.3-0.8The [facility] HospitalComment on above: Performed By: #### TSH, LIPID, CMP, PSAD, T4 #### [facility] [address] [place], [place] [id number] Wanda KarenMonocytes/100 WBC (Bld)4.8 %Normal1.7-12.0The [facility] Comment on above:Performed By: #### TSH, LIPID, CMP, PSAD, T4 #### [facility] [address] [place] [address] W[address] KarenNEUT #7.8 103/ulCritically high1.4-6.5The [facility] HospitalComment on above:Performed By: #### TSH, LIPID, CMP, PSAD, T4 #### [facility] [address] [place] [address] Wanda KarenNeutrophils/100 WBC (Bld)71.4 %Npxfnt51.0-75.0The [facility] Comment on above:Performed By: #### TSH, LIPID, CMP, PSAD, T4 #### [facility] [address] [place] [address] Wanda KarenPlatelet mean volume (Bld) [Entitic vol]9.6 fLNormal9.5-13.5The [facility] HospitalComment on above:Performed By: #### TSH, LIPID, CMP, PSAD, T4 #### [facility] [address] [place] [address] Wanda PbkghOPU368 103/slUtpnft124-602Hpx [facility] HospitalComment on above: Performed By: #### TSH, LIPID, CMP, PSAD, T4 #### [facility] [address] [place] [address] Wadna KarenRBC5.09 106/ulNormal4.70-6.10The [facility] HospitalComment on above: Performed By: #### TSH, LIPID, CMP, PSAD, T4 #### [facility] [address] [place] [address] Wanda MrchvNFF24.8 103/ulNormal4.0-11.0The [facility] HospitalComment on above: Performed By: #### TSH, LIPID, CMP, PSAD, T4 #### [facility] [address] [id number] W[address] KarenCT HEAD WO CONon [id number] HEAD WO CONCT BRAIN WITHOUT CONTRAST HISTORY: Pain. COMPARISON: None [...] Electronically authenticated by: EFRA MARRERO Date: 2019-11-25 01:49Mercy HealthETHANOL (BLD ALC)on [id number] NOTENOTE: 80 mg/dl is the legal limit for a blood alcohol levelKettering Health Hamilton on above:Performed By: #### TSH, LIPID, CMP, PSAD, T4 #### [facility] [address] [place] [address] Wanda KarenEthanol [Mass/Vol]205 mg/dLMercy HealthComment on above:Performed By: #### TSH, LIPID, CMP, PSAD, T4 #### [facility] [address] [address] Wanda KarenPROF 14(COMP METB)on [id number] [Mass/Vol]3.2 g/dLCritically low3.5-5.0The [facility] on above:Performed By: #### TSH, LIPID, CMP, PSAD, T4 #### [facility] [address] [place] [address] W[address] KarenAlbumin/Globulin [Mass ratio]0.8 {ratio}NormalOhiohealth Southeastern Medical Center Comment on above:Performed By: #### TSH, LIPID, CMP, PSAD, T4 #### [facility] [address] [place] [address] W[address] KarenALP [Catalytic activity/Vol]111 U/BRxkiwi41-602NzoOhiohealth Southeastern Medical Center Comment on above:Performed By: #### TSH, LIPID, CMP, PSAD, T4 #### [facility] [address] [place] [address] W[address] KarenALT [Catalytic activity/Vol]23 U/XAolyzz18-08ZatOhiohealth Southeastern Medical Center Comment on above:Performed By: #### TSH, LIPID, CMP, PSAD, T4 #### [facility] [address] [place] [address] W[address] KarenAnion gap [Moles/Vol]16.5 mmol/LNormalThe [facility] HospitalComment on above:Performed By: #### TSH, LIPID, CMP, PSAD, T4 #### [facility] [address] [place] [address] W[address] KarenAST [Catalytic activity/Vol]15 U/LCritically lak69-88ExdOhiohealth Southeastern Medical CenterComment on above:Performed By: #### TSH, LIPID, CMP, PSAD, T4 #### [facility] [address] [place] [address] Wanda KarenBilirubin [Mass/Vol]0.3 mg/dLNormal0.2-1.3TSumma Health Barber[facility] Comment on above:Performed By: #### TSH, LIPID, CMP, PSAD, T4 #### [facility] [address] [place] [address] Wanda KarenCalcium [Mass/Vol]8.2 mg/dLCritically low8.4-10.2[facility] Medical CenterComment on above:Performed By: #### TSH, LIPID, CMP, PSAD, T4 #### [facility] [address] [place] [address] W[address] KarenChloride [Moles/Vol]98 mmol/CXlqogj54-090XutOhiohealth Southeastern Medical Center Comment on above:Performed By: #### TSH, LIPID, CMP, PSAD, T4 #### [facility] [address] [place] [address] W[address] KarenCO2 [Moles/Vol]23.2 mmol/UKvmmoy96.0-30.0[facility] Comment on above:Performed By: #### TSH, LIPID, CMP, PSAD, T4 #### [facility] [address] [place] [address] W[address] KarenCreatinine [Mass/Vol]0.91 mg/dLNormal0.66-1.25ThCommunity Regional Medical Center Comment on above:Performed By: #### TSH, LIPID, CMP, PSAD, T4 #### [facility] [address] [place] [address] W[address] KarenEGFR-AF GUINEAN>60Normal>=60[facility] Medical CenterComment on above: Performed By: #### TSH, LIPID, CMP, PSAD, T4 #### [facility] [address] [place] [address] W[address] KarenEGFR-NON AF GUINEAN>60Normal>=60[facility] Medical CenterComment on above:Performed By: #### TSH, LIPID, CMP, PSAD, T4 #### [facility] [address] [place] [address] Wanda KarenGlobulin (S) [Mass/Vol]4.1 g/dLNormalThCommunity Regional Medical CenterComment on above:Performed By: #### TSH, LIPID, CMP, PSAD, T4 #### [facility] [address] [place] [address] W[address] KarenGlucose [Mass/Vol]231 mg/dLCritically tqbx42-867FjcOhiohealth Southeastern Medical CenterComment on above:Performed By: #### TSH, LIPID, CMP, PSAD, T4 #### [facility] [address] [place] [address] Wanda KarenPotassium [Moles/Vol]3.7 mmol/LNormal3.4-5.0[facility] Comment on above:Performed By: #### TSH, LIPID, CMP, PSAD, T4 #### [facility] [address] [id number] W[address] KarenProtein [Mass/Vol]7.3 g/dLNormal6.1-8.2The [facility] HospitalComment on above:Performed By: #### TSH, LIPID, CMP, PSAD, T4 #### [facility] [address] [address] Wanda KarenSodium [Moles/Vol]134 mmol/LCritically iep696-080Dwl [facility] HospitalComment on above:Performed By: #### TSH, LIPID, CMP, PSAD, T4 #### [facility] [address] [place] [address] W[address] KarenUrea nitrogen [Mass/Vol]22.0 mg/dLCritically high9.0-20.0The [facility] on above:Performed By: #### TSH, LIPID, CMP, PSAD, T4 #### [facility] [address] [address] Wanda KarenUrea nitrogen/Creatinine [Mass ratio]24.2 mg/mgNormalThCommunity Regional Medical CenterComascension [facility] on above:Performed By: #### TSH, LIPID, CMP, PSAD, T4 #### [facility] [address] [place] [address] W[address] KarenSALICYLATEon [id number] mg/dLNormal<=20.0[facility] on above:Performed By: #### TSH, LIPID, CMP, PSAD, T4 #### [facility] [address] [place], [place] [id number] W[address] KarenXR CHEST 1 Von [id number] CHEST 1 VCHEST RADIOGRAPH: HISTORY: Pain. COMPARISON: None available. TECHNIQUE: AP radiograph of was performed of the chest. FINDINGS: SUPPORT APPARATUS: None. CARDIOMEDIASTINAL SILHOUETTE: Normal. AIRWAYS/LUNGS: Clear. PLEURAL SPACES: No pleural effusion or pneumothorax. BONES AND SOFT TISSUES: No acute abnormality. IMPRESSION: Normal chest radiograph. Electronically authenticated by: EFRA MARRERO Date: 2019-11-25 01:51NoMercy Health – The Jewish HospitalXR PELVIS 1_2 VIEWSon [id number] PELVIS 1_2 VIEWSXR PELVIS 1_2 VIEWS: HISTORY: Pain. COMPARISON: None available. TECHNIQUE: 2 radiographic view(s) obtained. FINDINGS: BONES: Mineralization appears within normal limits. There is no acute fracture. There are no lytic or sclerotic lesions. JOINT SPACES: There is no dislocation. Mild degenerative changes of the hips and lower lumbar spine. SOFT TISSUES: Normal. IMPRESSION: No acute osseus abnormality. Electronically authenticated by: EFRA MARRERO Date: 2019-11-25 01:52NoL[facility] AUTO DIFFon [id number] #0.1 103/ulNormal0.0-0.1[facility] Medical CenterComment on above:Performed By: #### CBC #### [facility] [address] [place] [address] Wanda KarenBasophils/100 WBC (Bld)0.6 %Normal0.2-2.0[facility] Comment on above:Performed By: #### CBC #### [facility] [address] [address] W[address] KarenEO #0.2 103/ulNormal0.0-0.7The [facility] HospitalComment on above: Performed By: #### CBC #### [facility] [address] [place] [address] Wanda KarenEosinophils/100 WBC (Bld)1.7 %Normal0.9-7.0[facility] Comment on above:Performed By: #### CBC #### [facility] [address] [address] Wanda KarenErythrocyte distribution width (RBC) [Ratio]14.4 %Nxftye71.0-15.0The [facility] HospitalComment on above:Performed By: #### CBC #### [facility] [address] [place] [address] Wanda KarenHematocrit (Bld) [Volume fraction]44.2 %Wjzxcr15.0-54.0[facility] Medical CenterComment on above:Performed By: #### CBC #### [facility] [address] [place], [place] [phone] Wanda KarenHemoglobin (Bld) [Mass/Vol]13.9 g/dLCritically low14.0-18.0The [facility] HospitalComment on above:Performed By: #### CBC #### [facility] [address] [place] [address] Wanda AntoineenIG #0.04 10e3/ulCritically high0.00-0.03The [facility] HospitalComment on above:Performed By: #### CBC #### [facility] [address] [place] [address] Wanda AntoineenIG %0.4 %Normal0.0-0.5The [facility] HospitalComment on above: Performed By: #### CBC #### [facility] [address] [place] [address] W[address] KarenLYMPH #2.8 103/ulNormal1.2-3.8The [facility] HospitalComment on above: Performed By: #### CBC #### [facility] [address] [place] [address] Wanda KarenLymphocytes/100 WBC (Bld)28.2 %Dcaiga12.5-60.0The [facility] Comment on above:Performed By: #### CBC #### [facility] [address] [place] [address] W[address] KarenMANUAL DIFF REQNONormalThe [facility] HospitalComment on above: Performed By: #### CBC #### [facility] [address] [place] [address] Wanda KarenMCH (RBC) [Entitic mass]25.9 vhScwqmv75.9-34.0The [facility] Comment on above:Performed By: #### CBC #### [facility] [address] [place] [address] Wanda KarenMCHC (RBC) [Mass/Vol]31.4 g/jOLnmkwy71.9-35.2The [facility] Comment on above:Performed By: #### CBC #### [facility] [address] [place] [address] Wanda KarenMCV (RBC) [Entitic vol]82.3 qWAwqqkq97.0-94.0The [facility] Comment on above:Performed By: #### CBC #### [facility] [address] [place] [address] Wanda AntoineenMONO #0.5 103/ulNormal0.3-0.8The [facility] HospitalComment on above: Performed By: #### CBC #### [facility] [address] [place] [address] Wanda KarenMonocytes/100 WBC (Bld)5.2 %Normal1.7-12.0The [facility] Comment on above:Performed By: #### CBC #### [facility] [address] [place] [address] Wanda AntoineenNEUT #6.4 103/ulNormal1.4-6.5The [facility] HospitalComment on above: Performed By: #### CBC #### [facility] [address] [place] [address] Wanda KarenNeutrophils/100 WBC (Bld)63.9 %Ghbals33.0-75.0The [facility] Comment on above:Performed By: #### CBC #### [facility] [address] [place] [address] Wanda KarenPlatelet mean volume (Bld) [Entitic vol]10.5 fLNormal9.5-13.5The [facility] HospitalComment on above:Performed By: #### CBC #### [facility] [address] [place] [address] Wanda HixdwRXG348 103/dzHdchzp935-111Ymz [facility] HospitalComment on above: Performed By: #### CBC #### [facility] [address] [place] [address] Wanda KarenRBC5.37 106/ulNormal4.70-6.10The [facility] HospitalComment on above: Performed By: #### CBC #### [facility] [address] [place] [address] Wanda IioiaMPC71.0 103/ulNormal4.0-11.0[facility] Medical CenterComment on above: Performed By: #### CBC #### [facility] [address] [address] Wanda KarenGLYCOHEMOGLOBIN A1Con 70-31-6208Pjyvjjz [Mass/Vol]163 mg/dLMercy HealthComment on above:Performed By: #### TSH, LIPID, CMP, PSAD, T4 #### [facility] [address] [place] [address] Wanda KhwwmTbB3q (Bld) [Mass fraction]7.3 %Critically high<=6.0[facility] Medical CenterComment on above:Performed By: #### TSH, LIPID, CMP, PSAD, T4 #### [facility] [address] [place] [address] W[address] KarenLIPID PROFILEon [id number]-HDL RATIO NORMSEE [facility] HospitalComment on above:Result Comment: 3.3 - 4.4 LOW RISK 4.4 - 7.1 AVERAGE RISK 7.1 - 11.0 MODERATE RISK >11.0 HIGH RISKPerformed By: #### TSH, LIPID, CMP, PSAD, T4 #### [facility] [address] [place] [address] Wanda KarenCholesterol [Mass/Vol]130 mg/dLNormal<=200[facility] Comment on above:Performed By: #### TSH, LIPID, CMP, PSAD, T4 #### [facility] [address] [place] [address] Wanda KarenCholesterol in HDL [Mass/Vol]32 mg/dLMercy Health Comment on above:Performed By: #### TSH, LIPID, CMP, PSAD, T4 #### [facility] [address] [place] [address] Wanda KarenCholesterol in LDL [Mass/Vol]76.6 mg/dLMercy Health Comment on above:Performed By: #### TSH, LIPID, CMP, PSAD, T4 #### [facility] [address] [place], [place] [address] Wanda KarenCholesterol.total/Cholesterol in HDL [Mass ratio]4.1 {ratio}Normal The [facility] HospitalComment on above:Performed By: #### TSH, LIPID, CMP, PSAD, T4 #### [facility] [address] [place] [address] Wanda KarenHDL NORMAL> or = 60 mg/dl - LOW CARDIOVASCULAR RISK <40 mg/dl - HIGH CARDIOVASCULAR RISKMercy HealthComment on above:Performed By: #### TSH, LIPID, CMP, PSAD, T4 #### [facility] [address] [place] [address] Wanda KarenLDL CALC NORMALSEE BELOWMercy HealthComment on above: Result Comment: <100 mg/dl OPTIMAL 100 - 129 mg/dl NEAR OR ABOVE OPTIMAL 130 - 159 mg/dl BORDERLINE HIGH 160 - 189 mg/dl HIGH >190 mg/dl VERY HIGHPerformed By: #### TSH, LIPID, CMP, PSAD, T4 #### [facility] [address] [place] [address] Wanda KarenTriglyceride [Mass/Vol]107 mg/dLNormal<=150[facility] Comment on above:Performed By: #### TSH, LIPID, CMP, PSAD, T4 #### [facility] [address] [place] [address] Wanda KarenVLDL CALC21.4 mg/dLNoMercy Health – The Jewish HospitalComment on above: Performed By: #### TSH, LIPID, CMP, PSAD, T4 #### [facility] [address] [place] [address] Wanda KarenMICROALBUMIN, RAND URon [id number]<1.3Normal<=30.0The [facility] HospitalComment on above:Performed By: #### MALBR #### [facility] [address] [place] [address] Wanda KarenmALBHPLEASE NOTE: NORMAL RANGE CHANGE, TESTING PERFORMED AT [facility]. NormalThe [facility] HospitalComment on above:Performed By: #### MALBR #### [facility] [address] [place] [address] Wanda KarenPROF 14(COMP METB)on [id number] [Mass/Vol]3.5 g/dLNormal 3.5-5.0[facility] Medical CenterComment on above:Performed By: #### TSH, LIPID, CMP, PSAD, T4 #### [facility] [address] [address] Wanda KarenAlbumin/Globulin [Mass ratio]0.8 {ratio}NormalOhiohealth Southeastern Medical Center Comment on above:Performed By: #### TSH, LIPID, CMP, PSAD, T4 #### [facility] [address] [place] [address] Wanda KarenALP [Catalytic activity/Vol]103 U/QWefulp91-010UbfOhiohealth Southeastern Medical Center Comment on above:Performed By: #### TSH, LIPID, CMP, PSAD, T4 #### [facility] [address] [place] [address] Wanda KarenALT [Catalytic activity/Vol]21 U/WAiwhny13-23JhbOhiohealth Southeastern Medical Center Comment on above:Performed By: #### TSH, LIPID, CMP, PSAD, T4 #### [facility] [address] [address] Wanda KarenAnion gap [Moles/Vol]13.9 mmol/LNormalOhiohealth Southeastern Medical CenterComment on above:Performed By: #### TSH, LIPID, CMP, PSAD, T4 #### [facility] [address] [address] Wanda KarenAST [Catalytic activity/Vol]18 U/TJzplde94-75RqfOhiohealth Southeastern Medical Center Comment on above:Performed By: #### TSH, LIPID, CMP, PSAD, T4 #### [facility] [address] [address] Wanda KarenBilirubin [Mass/Vol]0.5 mg/dLNormal0.2-1.3TSumma Health [facility] Comment on above:Performed By: #### TSH, LIPID, CMP, PSAD, T4 #### [facility] [address] [address] Wanda KarenCalcium [Mass/Vol]8.9 mg/dLNormal8.4-10.2[facility] Comment on above:Performed By: #### TSH, LIPID, CMP, PSAD, T4 #### [facility] [address] [address] Wanda KarenChloride [Moles/Vol]100 mmol/RYqnpru96-047FoqOhiohealth Southeastern Medical Center Comment on above:Performed By: #### TSH, LIPID, CMP, PSAD, T4 #### [facility] [address] [place] [address] Wanda KarenCO2 [Moles/Vol]28.2 mmol/FShzhgm23.0-30.0The [facility] Comment on above:Performed By: #### TSH, LIPID, CMP, PSAD, T4 #### [facility] [address] [place] [address] Wanda KarenCreatinine [Mass/Vol]1.08 mg/dLNormal0.66-1.25The [facility] Comment on above:Performed By: #### TSH, LIPID, CMP, PSAD, T4 #### [facility] [address] [place] [address] Wanda KarenEGFR-AF GUINEAN>60Normal>=60The [facility] HospitalComment on above: Performed By: #### TSH, LIPID, CMP, PSAD, T4 #### [facility] [address] [place] [address] Wanda KarenEGFR-NON AF GUINEAN>60Normal>=60The [facility] HospitalComment on above:Performed By: #### TSH, LIPID, CMP, PSAD, T4 #### [facility] [address] [place] [address] Wanda KarenGlobulin (S) [Mass/Vol]4.6 g/dLNormalThe [facility] HospitalComment on above:Performed By: #### TSH, LIPID, CMP, PSAD, T4 #### [facility] [address] [place] [address] Wanda KarenGlucose [Mass/Vol]129 mg/dLCritically rggu61-172Kwm [facility] HospitalComment on above:Performed By: #### TSH, LIPID, CMP, PSAD, T4 #### [facility] [address] [address] Wanda KarenPotassium [Moles/Vol]4.1 mmol/LNormal3.4-5.0The [facility] Comment on above:Performed By: #### TSH, LIPID, CMP, PSAD, T4 #### [facility] [address] [place] [address] Wanda KarenProtein [Mass/Vol]8.1 g/dLNormal6.1-8.2The [facility] HospitalComment on above:Performed By: #### TSH, LIPID, CMP, PSAD, T4 #### [facility] [address] [place] [address] Wanda KarenSodium [Moles/Vol]138 mmol/KTxwpzj469-919Dme [facility] Comment on above:Performed By: #### TSH, LIPID, CMP, PSAD, T4 #### [facility] [address] [address] Wanda KarenUrea nitrogen [Mass/Vol]34.0 mg/dLCritically high9.0-20.0The [facility] HospitalComment on above:Performed By: #### TSH, LIPID, CMP, PSAD, T4 #### [facility] [address] [place], [place] [id number] Wanda KarenUrea nitrogen/Creatinine [Mass ratio]31.5 mg/mgNormalThe [facility] HospitalComment on above:Performed By: #### TSH, LIPID, CMP, PSAD, T4 #### [facility] [address] [place], [place] [id number] Wanda Anamaria Vital Signs Date TimeVital SignValuePerforming TscxcvjtaYowaepyi92-10-3658 13:48-0400Body crwtul636.6 cmJomagdalene [employer] Work Phone: [facility]04-07-2025 13:48-0400Body mass index (BMI) [Ratio]66.3 kg/m2Jo [employer] Corporationmary [facility] DO Work Phone: [facility]04-07-2025 13:48-0400Body xevshaipflk45.5 [degF]Merritt Thacker DO Work Phone: [facility] Ysnzkm31-70-3199 13:48-0400Body .34 kgMerritt Thacker DO Work Phone: [facility] CenterHypersoft [facility]04-07-2025 13:48-0400Diastolic blood hjlpysju98 mm[Hg]Merritt Thacker DO Work Phone: [facility] [email or web address] [facility] HospitalComment on above:bp cuff not big ueeasa22-51-5730 13:48-0400Heart rate92 /minMerritt Thacker DO Work Phone: [facility] [email or web address] Jnhzuc46-43-9950 13:48-0400 Respiratory rate20 /minMerritt Thacker DO Work Phone: [facility] [email or web address] Pdvzxx00-96-4130 13:48-9437ImG6% (BldA) [Mass fraction]91 %Merritt Thacker DO Work Phone: [facility] CenterHypersoft Information Systems04-07-2025 13:48-0400Systolic blood mm[Hg]Merritt Thacker DO Work Phone: [facility] [email or web address] [facility] HospitalComment on above:bp cuff not big ofgmyd35-68-7572 13:20-0500Diastolic blood nubjmwfd82 mm[Hg]Merritt Thacker DO Work Phone: [facility] [email or web address] Vugukr41-12-5064 13:20-0500Systolic blood flugrqtx628 mm[Hg]Merritt Thacker DO Work Phone: [facility] Center[facility] Systems01-07-2025 12:57-0500Body hymoxb013.6 cmJomagdalene Thacker DO Work Phone: [facility] Idlzus19-88-6271 12:57-0500Body mass index (BMI) [Ratio]68.44 kg/m2Merritt Thacker DO Work Phone: [facility] CenterHypersoft Information Systems01-07-2025 12:57-0500Body uljhlrjaruw68.59 [degF]Merritt Thacker DO Work Phone: [facility] Iwfsvl82-90-4777 12:57-0500Body tyclbd100.32 kgMerritt Thacker DO Work Phone: [facility] Twbodb39-48-9773 12:57-0500Heart rate 78 /minMerritt Thacker DO Work Phone: [facility] [email or web address] Chkuso13-03-2008 12:57-0500 Respiratory rate20 /minMerritt Thacker DO Work Phone: [facility] [email or web address] Ewupsf53-03-7224 12:57-0086AxN5% (BldA) [Mass fraction]97 %Merritt Thacker DO Work Phone: [facility] [email or web address] Dmhwdm44-99-7530 15:01-0400Body zmghob813.6 cmMerritt Thacker DO Work Phone: [facility] [email or web address] Hokgfy84-23-1266 15:01-0400Body mass index (BMI) [Ratio]63.75 kg/m2Merritt Thacker DO Work Phone: [facility] [email or web address] Xnkzay14-86-0449 15:01-0400Body tqxbercdhxv74.59 [degF]Merritt Thacker DO Work Phone: [facility] Otcerb56-36-2241 15:01-0400Body ggdcje726.17 kgMerritt Thacker DO Work Phone: [facility] Yeomtq26-18-8087 15:01-0400Diastolic blood xjgawqmg37 mm[Hg]Merritt Thacker DO Work Phone: [facility] Mvycli77-25-4046 15:01-0400Heart rate 88 /minMerritt Thacker DO Work Phone: [facility] Nbqzfa76-64-3029 15:01-8168GhT9% (BldA) [Mass fraction]95 %Merritt Thacker DO Work Phone: [facility] Wornwh53-40-8050 15:01-0400Systolic blood pnhieofn812 mm[Hg]Merritt Thacker DO Work Phone: [facility]08-19-2024 16:34-0400Body mrilgh907.6 cmMerritt Thacker DO Work Phone: [facility] [email or web address] Gadmsw64-20-8463 16:34-0400Body mass index (BMI) [Ratio]67.39 kg/m2Merritt Thacker DO Work Phone: [facility] [email or web address] Tzzdhr77-71-8635 16:34-0400Body kyuaakajksb52.11 [degF]Merritt Thacker DO Work Phone: [facility]08-19-2024 16:34-0400Body mgjxgi969.38 kgJomagdalene Thacker DO Work Phone: [facility]08-19-2024 16:34-0400Diastolic blood avjiuxum98 mm[Hg]Merritt Thacker DO Work Phone: [facility] [email or web address] Fqxvnn71-47-7077 16:34-0400Heart rate 71 /minJomagdalene Thacker DO Work Phone: [facility] [email or web address] Aeymtj65-88-9463 16:34-7801JxA1% (BldA) [Mass fraction]98 %Merritt Thacker DO Work Phone: [facility] [email or web address] Uqegho18-35-9008 16:34-0400Systolic blood uufvkwus686 mm[Hg]Merritt Thacker DO Work Phone: [facility] [email or web address] Pnjvnk69-46-7870 14:38-0400Body ybhyfd241.6 cmMerritt Thacker DO Work Phone: [facility]08-05-2024 14:38-0400Body mcifpsaiotf93.49 [degF]Merritt Thacker DO Work Phone: [facility]08-05-2024 14:38-0400Diastolic blood psxnjdix71 mm[Hg]Merritt Thacker DO Work Phone: [facility]08-05-2024 14:38-0400Heart rate 75 /minMerritt Thacker DO Work Phone: [facility] [email or web address] Ycejgs46-96-1349 14:38-0400 Respiratory rate20 /minMerritt Thacker DO Work Phone: [facility]08-05-2024 14:38-9140OuB3% (BldA) [Mass fraction]94 %Merritt Thacker DO Work Phone: [facility]08-05-2024 14:38-0400Systolic blood mm[Hg]Merritt Thacker DO Work Phone: [facility]04-10-2024 13:51-0400Diastolic blood mm[Hg]Merritt Thacker DO Work Phone: [facility] [email or web address] Dxkinw46-26-9736 13:51-0400Systolic blood qrzmjkyu345 mm[Hg]Merritt Thacker DO Work Phone: [facility]04-10-2024 13:09-0400Body fuhbwx179.6 cmJomagdalene Thacker DO Work Phone: [facility] [email or web address] Nutglq11-26-8247 13:09-0400Body mass index (BMI) [Ratio]68.86 kg/m2Merritt Thacker DO Work Phone: [facility] [email or web address] Axoaap20-65-8816 13:09-0400Body pjhxiimepbr28.2 [degF]Merritt Thacker DO Work Phone: [facility]04-10-2024 13:09-0400Body .5 kgMerritt Thacker DO Work Phone: [facility] [email or web address] Kitwan25-89-8598 13:09-0400Heart rate 88 /minMerritt Thacker DO Work Phone: [facility] Sdwpws61-83-2153 13:09-0400 Respiratory rate20 /Jillian Thacker DO Work Phone: [facility] Almurx39-26-2184 13:09-9984XrN2% (BldA) [Mass fraction]98 %Merritt Thacker DO Work Phone: [facility] Encounters Encounter DateEncounter TypeCare ProviderFacilityStart: 02-15-2025 End: 60-98-7345Asxoodbnq encounterNoemi Caraballo [facility]Pro[facility] - Family MedicineComment on above:Colon Cancer ScreeningStart: 01-21-2025 End: 75-06-0869djhmvtknqhEPEZSuburban Community Hospital & Brentwood Hospitaltart: 12-03-2024 End: 03-78-6608RjbjzwGhvs Albertina Thacker DO Work Phone: [facility] - Family MedicineComment on above:Type 2 diabetes mellitus without complication, without long-term current use of insulin ([facility]); Non-seasonal allergic rhinitis, unspecified triggerStart: 09-03-2024 End: 36-17-1149ysvjifjwuxRALMSt. John of God Hospitaltart: 09-03-2024 End: 32-74-8646Glonld outpatient visit 25 Artis Thacker DO Work Phone: [facility] - Family MedicineComment on above:Type 2 diabetes mellitus without complication, without long-term current use of insulin ([facility]) (Primary Dx); Special screening for malignant neoplasm of colon; Chronic combined systolic and diastolic CHF (congestive heart failure) ([facility]); Non-seasonal allergic rhinitis, unspecified trigger; Primary osteoarthritis of right shoulderStart: 09-03-2024 End: 36-37-0227bfqtjnutmxDXCWRogers Memorial Hospital - [place] PPGStart: 08-25-2024 End: 57-02-2685SckfvlLfre Albertina Thacker DO Work Phone: [facility] Medicine - Family MedicineComment on above:Type 2 diabetes mellitus without complication, without long-term current use of insulin ([facility])Start: 06-07-2024 End: 31-75-6872Yicmuumdy encounterJomagdalene Thacker DO Work Phone: [facility]art: 06-05-2024 End: 23-66-5211pvodbfhzgkMSDQSt. John of God Hospitaltart: 06-05-2024 End: 98-08-6397Kdnjqx outpatient visit 25 minutesGriseldamagdalene Thacker DO Work Phone: [facility] - [facility] HospitalComment on above:Type 2 diabetes mellitus without complication, without long-term current use of insulin ([facility]) (Primary Dx); Chronic combined systolic and diastolic CHF (congestive heart failure) ([facility]); Obesity, morbid ([facility]); Stage 3b chronic kidney disease ([facility]); Encounter for screening for malignant neoplasm of prostate; Encounter for immunization; Primary osteoarthritis of right shoulder; Non-seasonal allergic rhinitis, unspecified triggerStart: 06-05-2024 End: 92-62-1055oejniwfucqZCSNHabersham Medical Center Ambulatory PPGStart: 03-01-2024 End: 21-22-6250Ismhciurf encounterMaria B Shantelleing LOOM CLEANER Work Phone: [facility] SWS ORTHOComment on above:ReferralStart: 02-29-2024 End: 28-96-3145Reiech flowsheetMaria B Apling LOOM CLEANER Work Phone: [facility] CI ORTHOPAEDICSStart: 02-29-2024 End: 70-44-8886Clbcom flowsheetMaria B Apling LOOM CLEANER Work Phone: [facility] CI ORTHOPAEDICSStart: 02-29-2024 End: 01-32-1626Rhmjjr outpatient visit 25 minutesMaria B Apling LOOM CLEANER Work Phone: [facility] CI ORTHOPAEDICSComment on above:Right shoulder pain, unspecified chronicity (Primary Dx); Chronic pain of both knees; Chronic pain of both ankles; Impingement of right shoulderStart: 02-29-2024 End: 02-25-2015ugqwpioywvEZVFC B APLINGNot AvailableStart: 02-21-2024 End: 15-42-5820mitnqwgikyZUPHHabersham Medical Center Ambulatory PPGStart: 02-21-2024 End: 60-70-8108Bgdxwc outpatient visit 25 minutesJomagdalene Thacker DO Work Phone: [facility] - Family MedicineComment on above:Type 2 diabetes mellitus without complication, without long-term current use of insulin ([facility]) (Primary Dx); Chronic combined systolic and diastolic CHF (congestive heart failure) ([facility]); Primary osteoarthritis of right shoulder; Chronic right shoulder pain; Primary osteoarthritis of both anklesStart: 01-17-2024 End: 90-61-5895elkqsyaviaSTLRLima Memorial Hospitaltart: 01-16-2024 End: 35-12-2794sqttlpwkiuKQJWStory County Medical Center HospitalStart: 01-16-2024 End: 76-17-3829kzhmabhbazRBNVRogers Memorial Hospital - [place] PPGStart: 01-16-2024 End: 86-48-3109Eaovyvqegigd care manage srvc 14 day dischargeGriseldamagdalene Thacker DO Work Phone: [facility] Internal [facility] - Family [facility] HospitalComment on above:Chronic combined systolic and diastolic CHF (congestive heart failure) ([facility]) (Primary Dx); Type 2 diabetes mellitus without complication, without long-term current use of insulin ([facility]); Primary osteoarthritis of right shoulder; Stage 3b chronic kidney disease ([facility]); Hyperlipidemia, unspecified hyperlipidemia typeStart: 01-09-2024 End: 83-13-0491Fiikazqlx encounterMisty Domingo [facility]ITALPro[facility]ica [facility] - Family [facility] Hospitaltart: 01-02-2024 End: 41-06-3266frcuoafltuQMVQHabersham Medical Center Ambulatory PPGStart: 01-02-2024 End: 85-86-9930Jpyhxerwslad care manage srvc 14 day dischargeGriseldamagdalene Thacker DO Work Phone: [facility] Internal Medicine - Family MedicineComment on above:Acute on chronic systolic congestive heart failure ([facility]) (Primary Dx); Essential hypertension; Stage 3b chronic kidney disease ([facility]); Type 2 diabetes mellitus without complication, without long-term current use of insulin ([facility]); Obesity, morbid ([facility])Start: 12-26-2023 End: 50-44-9507Qthqssddz encounterMerritt Thacker DO Work Phone: [facility] Internal Medicine - Family MedicineStart: 12-14-2023 End: 32-03-1973Kmywznmwi encounterSelma Quijano [facility] Internal Medicine - Family MedicineStart: 11-18-2023 End: 28-06-1740WuaiuwVnhod Postell [facility] Internal Medicine - Family MedicineComment on above:Type 2 diabetes mellitus without complication, without long-term current use of insulin ([facility])Start: 09-15-2023 End: 95-12-6440Jhuvndgxw encounterNitza Oneal [facility] Internal [facility] - [facility] MedicineStart: 09-07-2023 End: 38-65-3689zuobapxkwhBYSM [facility] HospitalStart: 09-07-2023 End: 20-87-2826Lhabem outpatient visit 25 minutesMerritt Thacker DO Work Phone: [facility] Internal Medicine - Family MedicineComment on above:Type 2 diabetes mellitus without complication, without long-term current use of insulin ([facility]) (Primary Dx); Stage 3b chronic kidney disease ([facility]); Essential hypertension; Class 3 severe obesity due to excess calories with serious comorbidity and body mass index (BMI) of60.0 to 69.9 in adult ([facility]); Immunization dueStart: 09-07-2023 End: 74-21-8178njhmmglzcrUGQIRogers Memorial Hospital [facility] [place] PPGStart: 77-73-5168Gzmehtzgt encounterKaveh Mayer DO Work Phone: [facility] ORTHOPAEDICSComment on above:Refund Checks Start: 04-11-2023 End: 19-67-4880rcnnwfwiwhGCKKN B APLINGNot AvailableStart: 07-13-2021 End: 25-78-2037jnonjyzhxoOlkmczc HouseFacility:[facility] Start: 60-04-3918Thxnxwlxo for general adult medical examination without abnormal findingsDR DEVANG BIRCHGreene Memorial Hospital HospitalStart: 10-01-2020 End: 81-40-4223tcsvvqvedlAM DEVANG HOUSEFacility:X0Ynmry: 10-01-2020 End: 73-17-0702Bfxdvbwfy for general adult medical examination without abnormal findingsDR DEVANG HOUSEFacility:S8Xagtq: 04-04-2020 End: 09-88-2678jtkxuxozavTQ DEVANG HOUSEFacility:L0Nrfyh: 11-25-2019 End: 98-16-8537ykqergxhvtVK DEVANG HOUSEFacility:D6Jglvf: 10-18-2019 End: 72-62-9564dywlazdvghGZ DEVANG HOUSEFacility:H1 Procedures DateProcedureProcedure DetailPerforming ClinicianStart: 59-38-8066Ilzyh depression screening assessmentJomagdalene Thacker DO Work Phone: Start: 76-94-5248Tyelhdjvyxucvo aspir&/inj major jt/bursa w/o usMaria B Apling LOOM CLEANER Work Phone: Start: 83-76-6707Ujcav depression screening assessment Merritt Thacker DO Work Phone: Start: 82-51-9148Djdchcucyprk [Mass/volume] in Urine by Test stripGriseldamagdalene Dents DO Work Phone: Start: 62-83-4993Vctgtb-up visitFollow-upMERRITT Eng KIRSTIE Start: 53-29-7570Bfurr depression screening assessmentGriseldamagdalene Dents DO Work Phone: Start: 17-21-7882Mhfoa depression screening assessment Merritt Thacker DO Work Phone: Start: 23-04-1218Ntjzi depression screening assessment Merritt Thacker DO Work Phone: Start: 49-94-7473Gmamijmevtyf [Mass/volume] in Urine by Test Luther Lynneyosibharti DO Work Phone: Start: 51-19-6012BJS screeningDR DEVANG HOUSEComment on above:Performed By: #### TSH, LIPID, CMP, PSAD, T4 #### [facility] [address] [place] [address] Wanda Conrad Plan of Treatment DateCare ActivityDetailAuthorStart: 41-02-4351WFhJ,Tdap and Td Vaccines (2 - Td or Tdap)DTaP,Tdap and Td Vaccines (2 - Td or Tdap)[facility] [email or web address] SystemStart: 57-45-4706Eexic BMI ScreeningAdult BMI ScreeningMercy Hospital SystemStart: 36-44-3823Nfkyxfc ScreeningTobacco ScreeningMercy Hospital SystemStart: 68-49-4959Kmloz BMI ScreeningAdult BMI ScreeningMercy Hospital SystemStart: 43-10-8242Qauvthjanf ScreeningDepression ScreeningMercy Hospital SystemStart: 44-85-0915Prawxn Use: DiabeticStatin Use: DiabeticMercy Hospital SystemStart: 06-57-7157Joqvixf ScreeningTobacco ScreeningMercy Hospital SystemStart: 11-40-2260Kyjek BMI ScreeningAdult BMI ScreeningMercy Hospital SystemStart: 54-29-0348Ryxeqnbufp ScreeningDepression ScreeningMercy Hospital SystemStart: 92-76-4991Hvyjvnk ScreeningTobacco ScreeningMercy Hospital SystemStart: 61-74-3992Ginkjonta vaccinationInfluenza VaccineMercy Hospital SystemStart: 71-36-6043Azzpo screening for proteinUrine MicroalbuminMercy Hospital System Start: 30-08-8516Hiztp BMI ScreeningAdult BMI ScreeningMercy Hospital System Start: 45-66-2575Ggcvjxqnsq ScreeningDepression ScreeningMercy Hospital System Start: 17-02-1664Hiyonwh ScreeningTobacco ScreeningMercy Hospital SystemStart: 01-03-2025 End: 43-29-6776Uxmmpkt encounter bmvxduhvm02/07/2025 1:00 PM EDT Office Visit [facility] [address] [place] [address] Merritt Thacker, DO [address] [id number] [facility] MedicineStart: 29-73-1071Hhdjetpnye Screening Depression ScreeningProC[facility] SystemStart: 87-60-0873Atvmxpj Screening Tobacco ScreeningProC[facility] Clinic [facility] SystemStart: 37-19-8845Phdxq BMI Screening Adult BMI ScreeningProC[facility] Clinic [facility] SystemStart: 59-02-0315Judcsettlu Screening Depression ScreeningProC[facility] Clinic [facility] SystemStart: 78-17-1676Vmgjklw Screening Tobacco ScreeningProOhioHealth Van Wert Hospitaltart: 09-03-2024 End: 85-32-9488Pelzgqg encounter /07/2025 1:30 PM EDT Office Visit [facility] [address] [place] [address] Merritt Thacker, DO [address], [id number] [facility] MedicineStart: 33-88-2231Fjtyzr Use: DiabeticStatin Use: DiabeticProOhioHealth Van Wert Hospitaltart: 06-05-2024 End: 28-06-1103Jginidg encounter suhecyqix56/07/2025 1:00 PM EST Office Visit [facility] [address] [place] [address] Merritt Thacker, DO [address], [id number] [facility] MedicineStart: 02-29-2024 End: 48-02-9750Eagqzlx encounter akkxmbtha42/02/2024 12:45 PM EDT Office Visit [facility] [address] [place] [id number] Inna Jefferson, LOOM CLEANER [address] [place] [address] Right shoulder pain, unspecified chronicity (Primary Dx)[facility] CI ORTHOPAEDICSComment on above:Right shoulder pain, unspecified chronicity (Primary Dx)Start: 02-21-2024 End: 58-66-5540Ufgvihj encounter tvvuiremn34/24/2024 3:00 PM EDT [facility] [address] [place] [place] [address] Merritt Thacker, DO [address] [place], [id number] [facility] MedicineStart: 68-91-9744Eoabtvtyl vaccination Influenza VaccineProC[facility] Clinic [facility] SystemStart: 01-16-2024 End: 91-65-7556Bjqbter encounter lhvmypyvf66/19/2024 4:15 PM EDT [facility] [address] [place] [place] [address] Merritt Thacker, DO [address] [facility], [id number] [facility] MedicineStart: 42-76-8102Kiwsyixs foot examination Diabetic Foot ExamProCleveland Clinic [facility] SystemStart: 97-57-9783Xsxrk screening for proteinUrine MicroalbuminProC[facility] Clinic [facility] SystemStart: 02-29-3210Uaeeejcqprsenc of varicella zoster vaccineZoster (Shingles) Vaccine (1 of 2)[facility] SystemStart: 88-58-3296Npdbm BMI Follow Up PlanAdult BMI Follow Up PlanProCleveland Clinic [facility] SystemStart: 07-94-1333Ikuwurke screeningDiabetic Ophthalmology Exam [facility] End: 83-58-4187WAG W Auto Differential panel - BloodCBC auto differential Lab Routine Stage 3b chronic kidney disease ([facility]) 1 Occurrences starting 0 01/16/2024 until 01/15/2025[facility] Medical CenterCrispy Driven Pixels SystemComment on above:1 Occurrences starting 01/16/2024 until 01/15/2025ologuard Non-ProMedicaCologuard Non- [facility] Lab Routine Special screening for malignant neoplasm of colon Ordered: 09/03/2024[employer] Work Phone: Comment on above:Ordered: 09/03/2024 End: 09-77-9656Tjswdkyynuhfy metabolic 2000 panel - Serum or PlasmaComprehensive metabolic panel Lab Routine Hyperlipidemia, unspecified hyperlipidemia type 1 Occurrences starting 01/16/2024 until 01/15/2025[employer] Work Phone: Comment on above:1 Occurrences starting 01/16/2024 until 01/15/2025 End: 03-63-7385Wdrphcxtnr A1c/Hemoglobin.total in BloodHemoglobin A1c Lab Routine Type 2 diabetes mellitus without complication, without long-term current use of insulin ([facility]) 1 Occurrences starting 06/05/2024 until 06/05/2025 [facility] Work Phone: Comment on above:1 Occurrences starting 06/05/2024 until 06/05/2025Hemoglobin A1c/Hemoglobin.total in BloodHemoglobin A1c Lab Routine Type 2 diabetes mellitus without complication, without long-term current use of insulin ([facility]) 06/05/2024 5:50 PM [facility] CenterFoot[facility] End: 03-35-9440Glznmycono A1c/Hemoglobin.total in BloodHemoglobin A1c Lab Routine Type 2 diabetes mellitus without complication, without long-term current use of insulin ([facility]) 1 Occurrences starting 09/07/2023 until 09/06/2024 [facility] Work Phone: Comment on above:1 Occurrences starting 09/07/2023 until 09/06/2024Hemoglobin A1c/Hemoglobin.total in BloodHemoglobin A1c Lab Routine Type 2 diabetes mellitus without complication, without long-term current use of insulin ([facility]) 09/07/2023 11:28 PM [facility] End: 75-73-3082Tvwrlpcdur A1c/Hemoglobin.total in BloodHemoglobin A1c Lab Routine Type 2 diabetes mellitus without complication, without long-term current use of insulin ([facility]) 1 Occurrences starting 01/16/2024 until 01/15/2025 [facility] Occurrences starting 01/16/2024 until 01/15/2025 End: 78-99-6192[place] 1996 panel - Serum or PlasmaLipid profile Lab Routine Hyperlipidemia, unspecified hyperlipidemia type 1 Occurrences starting until 01/15/2025[facility]Comment on above:1 Occurrences starting 01/16/2024 until 01/15/2025 End: 73-95-2124Lribgurte [Mass/volume] in Serum or PlasmaMagnesium Lab Routine Chronic combined systolic and diastolic CHF (congestive heart failure) ([facility]) 1 Occurrences starting 01/16/2024 until 01/15/2025[facility] Comment on above:1 Occurrences starting 01/16/2024 until 01/15/2025 End: 05-21-6991Wfmkvlnshusw - Albumin: Creatinine Urine RatioMicroalbumin - Albumin: Creatinine Urine Ratio Lab Routine Type 2 diabetes mellitus without complication, without long-term current use of insulin ([facility]) 1 Occurrences starting 01/16/2024 until 01/15/2025[facility] [email or web address] [facility] HospitalComment on above:1 Occurrences starting 01/16/2024 until 01/15/2025 Immunizations Immunization DateImmunizationNotesCare YqqrqwjmMmehxhqh52-02-2286Vuzxuabi trivalent influenza vaccine, adjuvanted, preservative freeMerritt Kirstie DO Work Phone: [facility] [email or web address] Kkyafw04-47-8039Lngozynsmoai, In Clinic,; 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: [Drug or medicament (substance)]Merritt Thacker DO Work Phone: [facility] [email or web address] Telabe04-47-2982alrfsckuh virus vaccine, unspecified formulationMerritt Filipes DO Work Phone: [facility] [email or web address] Doswno29-88-8253dzdsjlbcj, injectable, quadrivalent, preservative freeMerritt Filipes DO Work Phone: [facility] Vazqlb66-93-2875jddxxpv toxoid, reduced diphtheria toxoid, and acellular pertussis vaccine, adsorbedJomagdalene Thacker DO Work Phone: [facility] HospitalAsfhfz47-77-2355xxjkrltjt virus vaccine, unspecified formulationJomagdalene Thacker DO Work Phone: [facility] Payers DatePayer CategoryPayerPolicy [id number] O [id number] [id number] [id number] [id number]-[id number] [id number] 2..840.1.512903.3.57[id number] 2.16840.1.540811.3.57[id number] 2.16.840.1.239039.3.57[id number] 2.16.840.1.684221.3.57[id number] 2..840.1.803856.3.57[id number] 2.16.840.1.611156.3.57[id number] 2.16.840.1.188474.3.57[id number] 2.16.840.1.595607.3.57[id number] 2.16840.1.351100.3.57[id number] 2..840.1.367059.3.57[id number] 2.16.840.1.152138.3.57[id number] 2..840.1.872050.3.57[id number] 2.16.840.1.783870.3.57[id number] 2.840.1.064055.3.57[id number] 2.840.1.740465.3.57[id number] 2.0.1.833426.3.57[id number] 2.840.1.564538.3.579.2.[id number] [id number] 2.840.1.620298.3.579.2.531 Social History DateTypeDetailFacilityStart: 01-10-2023 End: 50-14-9115Knbkftf smoking status NHISNever smoked tobaccoNOMS Healthcare Start: 01-10-2023 End: 01-60-6971Gmwjexx use and exposureSmokeless tobacco non-userNOMS Healthcare Start: 06-09-2023 End: 06-11-3600Euoshjq intakeCurrent drinker of alcohol (finding)[facility] Start: 07-10-2020 End: 08-18-1518Qbvmulo of Social functionNOMO HealthcareStart: 07-10-2020 End: 09-93-7774Jyubdga use panelMOUNTAINSTAR HEALTHCARE HealthcareStart: 00-73-8369Nhb Assigned At BirthNot on [facility] depression screening assessment0 [facility] Centertart: 71-24-7211Dtlndsf CommentrarePNovant Health Charlotte Orthopaedic Hospitaltart: 28-21-5930MgfKliw (finding)[facility] Clinical Notes 06-17-2023 to 02-15-2025 Note Date & WnkkNgvzPqeejrfc02-74-8495 Miscellaneous Notes* Telephone Encounter - Noemi Caraballo CMA - 02/15/2025 9:26 AM EDT Care Coordination Outreach performed to coordinate overdue appointments, testing, and/or follow-up care: Yes Audit/Outreach Date: February 15, 2025 Reason: Colorectal Cancer Screening Method: Telephone and Letter Outreach Attempt: First Outcome: Left Message and Letter Sent Next PCP Appointment: N/A Tests/Referrals Pended: N/A Resources/Education Provided: Additional Comments: Left message for patient to contact child day care teacher. Patient is overdue with cologuard order. Will send letter to patient. documented in this encounterSt. [facility] Hospital09-19-2025 Telephone encounter Note* Telephone Encounter - Noemi Caraballo CMA - 02/15/2025 9:26 AM EDT Care Coordination Outreach performed to coordinate overdue appointments, testing, and/or follow-up care: Yes Audit/Outreach Date: February 15, 2025 Reason: Colorectal Cancer Screening Method: Telephone and Letter Outreach Attempt: First Outcome: Left Message and Letter Sent Next PCP Appointment: N/A Tests/Referrals Pended: N/A Resources/Education Provided: Additional Comments: Left message for patient to contact child day care teacher. Patient is overdue with cologuard order. Will send letter to patient. [facility]08-25-2025 NoteSUBJECTIVE Reason for Visit: Cristobal Garcia is a 59 y.o. year old male patient being seen for heart failure hospital follow-up. HPI: Cristobal Garcia is a 59 y.o. year old male with significant medical history of heart failure with preserved ejection fraction, hypertension, diabetes type 2, hyperlipidemia, and JACQUE. Recently admitted at [facility] 12/31/2024 for SOB, acute on chronic [...] ago, he is unsur (more content not included)...[facility]04-07-2025 History of Present illness Narrative* Merritt Thacker, DO - 09/03/2024 1:30 PM EDT IM PROGRESS NOTE Patient - Cristobal Garcia Age - 58 y.o. - 1965 ASSESSMENT & PLAN 1. Type 2 diabetes mellitus without complication, without long-term current use of insulin ([facility]) (Primary) - goals of treatment reviewed with [...] systolic and diastolic CHF (congestive heart failure) ([facility]) - symptoms are stable -GDMT: Spironolactone, losartan, [...] exam was: 2024. Recently referred Ophthalmology in [place], and may need surgery done at [facility] Patient BP monitoring is done sporadically, [...] (!) 186.3 kg (410 lb 12.8 oz) TvR643% BMI 66.30 kg/m Physical Exam Vitals reviewed. [...] total) by mouth daily., Disp: 30 tablet, Rfl:11 losartan (COZAAR) 50 mg tablet, Take 1 [...] Testing No results found. Merritt Thacker DO., [facility] Office: [phone] documented in this encounterSt. Rita's Hospital01-09-2025 Miscellaneous Notes* Telephone Encounter - [facility] Levirodrigo - 06/07/2024 1:18 PM EST Called for pat assist, need proof of income, insurance card and signature documented in this encounterSt. Rita's Hospital01-09-2025 Telephone encounter Note* Telephone Encounter - [facility] Jaimee - 06/07/2024 1:18 PM EST Called for pat assist, need proof of income, insurance card and signature [facility]01-07-2025 History of Present illness Narrative* Merritt Thacker DO - 06/05/2024 1:00 PM EST IM PROGRESS NOTE Patient - Cristobal Garcia Age - 58 y.o. - 1965 ASSESSMENT & PLAN 1. Type 2 diabetes mellitus without complication, without long-term current use of insulin ([facility]) (Primary) -goals of treatment reviewed with the [...] mg total) by mouth in the morning and1 tablet (1,000 mg total) before bedtime. Dispense: 180 tablet; Refill: 0 2. Chronic combined systolic and diastolic CHF (congestive heart failure) ([facility]) -has gained weight -needs to restart his [...] mg total) by mouth daily. Dispense: 30 tablet;Refill: 11 - losartan (COZAAR) 50 mg tablet; Take 1 tablet (50 mg total) by mouth in the morning. Dispense: 90tablet; Refill: 1 - spironolactone (ALDACTONE) 25 mg tablet; Take 1 tablet (25 mg total) by mouth in the morning. Dispense: 90 tablet; Refill: 0 3. Obesity, morbid ([facility]) -this plays a major role in his diabetes and heart failure -consider adding G LP 1 agent in addition to current regimen 4. Stage 3b chronic kidney disease ([facility]) -GFR ranges 46-76 over the past year [...] muscle once for 1 dose. flu vac 65up(PF) 45 MCG(15 MCGX3)/0.5 mL Sign this order [...] all of his medications about one-month ago, andjust is not taking anything. A review of [...] total) by mouth daily., Disp: 30 tablet, Rfl:11 Immunization, In Clinic,, Inject 0.5 mL into [...] total) by mouth in the morning and 1tablet (1,000 mg total) before bedtime., Disp: 180 [...] Testing No results found. Merritt Thacker DO., [facility] Office: [phone] documented in this encounterSt. Rita's Hospital10-04-2024 Telephone encounter Note* Telephone Encounter - Jieallie Murillo - 03/02/2024 1:41 PM EDT Called and left vm for patient. [facility] HospitalJbfudzgycj75-75-8567 Miscellaneous Notes* Telephone Encounter - Jieallie Murillo - 03/02/2024 1:41 PM EDT Called and left vm for patient. * Telephone Encounter - Jie Murillo - 03/01/2024 1:54 PM EDT 's office called regarding a referral they received. is not accepting new patients at this time. Please advise. documented in this encounterSouthPointe HospitalAbzixyurlt77-99-9217 Telephone encounter Note* Telephone Encounter - Jie Murillo - 03/01/2024 1:54 PM EDT 's office called regarding a referral they received. is not accepting new patients at this time. Please advise. [facility] [id number] History of Present illness Narrative* Inna Jefferson NP - 02/29/2024 12:45 PM EDTAssociated Order(s): L Inj/Asp: R subacromial bursa Post-Procedure [...] prn. He notes he never heard from [facility] pain management, will send him back for eval of his bilateral knees for possible visco supplementation He notes since he came off his nsaids by his pcp his bilateral ankle and knees have been bothering him. Will send to dr. Payne, he is looking for ankle injections documented in this encounterSouthPointe HospitalWhvfajdkeq06-56-1279 History of Present illness Narrative* Merritt Thacker, DO - 02/21/2024 3:00 PM EDT IM PROGRESS NOTE Patient - Cristobal Garcia Age - 58 y.o. - 1965 ASSESSMENT & PLAN 1. Type 2 diabetes mellitus without complication, without long-term current use of insulin ([facility]) -I reviewed the results of the recent [...] mg total) by mouth in the morning and1 tablet (1,000 mg total) before bedtime. Dispense: 180 tablet; Refill: 0 2. Chronic combined systolic and diastolic CHF (congestive heart failure) ([facility]) -GDMT includes ARB (losartan), beta-bishop (carvedilol), spironolactone (Aldactone), and loop diuretic (furosemide). -will add SGLT2 agent in the form of Farxiga 10 mg daily - losartan (COZAAR) 50 mg tablet; Take 1 tablet (50 mg total) by mouth in the morning. Dispense: 90tablet; Refill: 1 - carvediloL (COREG) 12.5 mg [...] in ankle - bilateral, knee - bilateral, andshoulder - bilateral. Has been seen by Orthopedics ([place]) in the past and received injectionsto the shoulder which helped. He is having [...] total) by mouth daily., Disp: 30 tablet, Rfl:11 losartan (COZAAR) 50 mg tablet, Take 1 tablet (50 mg total) by mouth in the morning., Disp: 90 tablet, Rfl: 1 magnesium oxide 250 mg tablet, Take 1 tablet (250 mg total) by mouth in the morning., Disp: 90 tablet, Rfl: 1 metFORMIN (GLUCOPHAGE) 1000 mg tablet, Take 1 tablet (1,000 mg total) by mouth in the morning and 1tablet (1,000 mg total) before bedtime., Disp: 180 [...] Testing No results found. Merritt Thacker DO., [facility] Office: [phone] documented in this encounterSt. Rita's Hospital08-19-2024 History of Present illness Narrative* Merritt Thacker DO - 01/16/2024 4:15 PM EDT Subjective Patient ID: Cristobal Garcia is a 58 y.o. male. The patient is here today for discharge follow up from hospital. Transition of Care Med Rec completed? Yes Discharged medications: Medications have been reviewed and reconciled with the most recent facilitydischarge document. HPI The following portions of the patient's history were reviewed and updated as appropriate: current medications, past family history, past medical history, past social history, past surgical history, problem list, and medication reconciliation was completed including current medication and post discharge medication. He was discharged from [facility] after being admitted for acute on chronic combined systolic and diastolic heart failure. Received multiple days of IV diuresis. Was seen by Cardiology Abdiel. Was initiated on GDMT therapy including spironolactone, loop diuretic, beta-bishop, and ARB. He lost close to 60 lb. He still feels short of breath with too much exertion . However he is able to walk 20-30 feetwith in his home without stopping. He does not have oxygen at home. He reports he is not taking allthe prescribed medications on a daily basis. He ran out of [employer] and is taking his old furosemide. In [...] starting to swell up. In addition, we w ill re-evaluate his diabetes, as his insurance company will no longer cover Rybelsus. He would benefit from switching to an SGLT 2 bishop given his heart failure. Labs were ordered and further recommendations pending the results. Addition, we will evaluate his need for home nocturnal oxygen. Request sent to [employer]. Diagnoses and all orders for this visit: Chronic combined systolic and diastolic CHF (congestive heart failure) ([facility]) - aspirin 81 mg chewable tablet; Chew [...] complication, without long-term current use of insulin ([facility]) - Hemoglobin A1c; Future - Microalbumin - [...] before bedtime. Stage 3b chronic kidney disease ([facility]) - CBC auto differential; Future Hyperlipidemia, unspecified hyperlipidemia type - Comprehensive metabolic panel; Future - Lipid profile; Future documented in this encounterFairfield Medical Centerfarmbuy Mclaren [id number] Miscellaneous Notes* Telephone Encounter - Eneida Lane CMA - 01/09/2024 4:59 PM EDT Alyssa from [facility] called wanting to know if you would follow this pt for home health care as he was discharged today from [facility] * Telephone Encounter - Merritt Thacker DO - 01/09/2024 4:59 PM EDT Message noted. Yes * Telephone Encounter - Merritt Thacker DO - 01/09/2024 4:59 PM EDT Message noted. Yes. He will need a TCM * Telephone Encounter - Blanca Hermosillo - 01/09/2024 4:59 PM EDT He comes in 01/15 is that okay * Telephone Encounter - Merritt Thacker DO - 01/09/2024 4:59 PM EDT Message noted. Yes documented in this encounterSt. Rita's Hospital08-12-2024 Telephone encounter Note* Telephone Encounter - Eneida Lane CMA - 01/09/2024 4:59 PM EDT Alyssa from [facility] called wanting to know if you would follow this pt for home health care as he was discharged today from [facility]08-12-[facility] Telephone encounter Note* Telephone Encounter - Merritt Thacker DO - 01/09/2024 4:59 PM EDT Message noted. Yes [facility]08-12-2024 Telephone encounter Note* Telephone Encounter - Merritt Thacker DO - 01/09/2024 4:59 PM EDT Message noted. Yes. He will need a TCM [facility]08-12-2024 Telephone encounter Note* Telephone Encounter - Blanca Hermosillo - 01/09/2024 4:59 PM EDT He comes in 01/[address] [facility]08-12-2024 Telephone encounter Note* Telephone Encounter - Merritt Thacker DO - 01/09/2024 4:59 PM EDT Message noted. Yes [facility]08-05-[facility] History of Present illness Narrative* Merritt Thacker DO - 01/02/2024 2:00 PM EDT Subjective Patient ID: Cristobal Garcia is a 58 y.o. male. The patient is here today for discharge follow up from hospital. Transition of Care Med Rec completed? Yes Discharged medications: Medications have been reviewed and reconciled with the most recent facilitydischarge document. HPI The following portions of the patient's history were reviewed and updated as appropriate: current medications, past medical history, past social history, past surgical history, problem list, and medication reconciliation was completed including current medication and post discharge medication. Patient was discharge from [facility] on 12/19/2023 after being admitted for congestive heart failure. At that visit, he had an echocardiogram which showed an EF of 35%, with dilated right andleft ventricles and dilated right and left atria. He was given IV Bumex and placed on oral nitrate.He had diuresis, and was discharged in 1-2 [...] any activity without being short of breath. Hethinks he has gained about 20 lb. His [...] down. He apparently has had return of allhis symptoms since he was discharged from [facility], and actually feels worse. It does appear that he is having an acute exacerbation of his systolic congestive heart failure, although I am not sure that it ever was fully evaluated and treated. Was not initiated on typical GDMT medications,and probably needs further evaluation of his underlying systolic dysfunction , which appears to be new according to him. Diagnoses and all orders for this visit: Acute on chronic systolic congestive heart failure ([facility]) - I advised the patient that he needs to be admitted to the hospital to re- evaluate his current medical regimen, particularly with an eye toward starting SGLT2 agent, Entresto, spironolactone. I phoned to the [facility], but no rooms are available and patient is are being boarded in the ER. I advised the patient to had directly to the [place] ER for readmission at this time. Essential hypertension - overall control today. -no changes. Treatment for congestive heart failure will involve controlling hypertension Stage 3b chronic kidney disease ([facility]) - need to reassess renal function given his description of ice tea urine - admit to hospital as above Type 2 diabetes mellitus without complication, without long-term current use of insulin ([facility]) - previously on Rybelsus plus metformin - currently only on metformin, which given his kidney disease may not be the best choice - probably needs SGLT2 agent given his heart failure and diabetes - this will be evaluated during admission Obesity, morbid ([facility]) - BMI 68 - some of this may be water weight. Needs to be addressed during admission. documented in this encounterSt. Rita's Hospital07-29-2024 Miscellaneous Notes* Telephone Encounter - Blanca Hermosillo - 12/26/2023 4:08 PM EDT ----- Message from Dr. Merritt Thacker DO sent at 09/07/2023 7:47 PM EDT ----- DM recheck * Telephone Encounter - Blanca Hermosillo - 12/26/2023 4:08 PM EDT Pt hung up documented in this encounterSt. Rita's Hospital07-29-2024 Telephone encounter Note* Telephone Encounter - Blanca Hermosillo - 12/26/2023 4:08 PM EDT ----- Message from Dr. Merritt Thacker DO sent at 09/07/2023 7:47 PM EDT ----- DM recheck [facility]07-29-2024 Telephone encounter Note* Telephone Encounter - Blanca Hermosillo - 12/26/2023 4:08 PM EDT Pt hung up [facility]07-17-2024 Miscellaneous Notes* Telephone Encounter - Selma Quijano CMA - 12/14/2023 1:39 PM EDT Patient called and stated he is retaining fluid in his abdomen area and it is making him so SOB. What do you suggest he do? * Telephone Encounter - Merritt Thacker DO - 12/14/2023 1:39 PM EDT Message noted. I have no room for him today He will need to go to the ED * Telephone Encounter - Selma Quijano CMA - 12/14/2023 1:39 PM EDT Patient notified and understands. documented in this encounterSt. Rita's Hospital07-17-2024 Telephone encounter Note* Telephone Encounter - Selma Quijano CMA - 12/14/2023 1:39 PM EDT Patient called and stated he is retaining fluid in his abdomen area and it is making him so SOB. What do you suggest he do? [facility]07-17-20[facility] Telephone encounter Note* Telephone Encounter - Merritt Thacker DO - 12/14/2023 1:39 PM EDT Message noted. I have no room for him today He will need to go to the ED [facility]07-17-2024 Telephone encounter Note* Telephone Encounter - Selma Quijano CMA - 12/14/2023 1:39 PM EDT Patient notified and understands. [facility]04-18-2024 Miscellaneous Notes* Telephone Encounter - Nitza Oneal CMA - 09/15/2023 10:15 AM EDT Pt called and states he was wondering if his sample of RYBELSUS was ready. It is and he states he will pick it up. * Telephone Encounter - Blanca Hermosillo - 09/15/2023 10:15 AM EDT Picked up documented in this encounterSt. Rita's Hospital04-18-2024 Telephone encounter Note* Telephone Encounter - Nitza Oneal CMA - 09/15/2023 10:15 AM EDT Pt called and states he was wondering if his sample of RYBELSUS was ready. It is and he states he will pick it up. [facility]04-18-2024 Telephone encounter Note* Telephone Encounter - Blanca Hermosillo - 09/15/2023 10:15 AM EDT Picked up [employer]04-10-2024 History of Present illness Narrative* Merritt Thacker, DO - 09/07/2023 1:00 PM EDT IM PROGRESS NOTE Patient - Cristobal Garcia Age - 57 y.o. - 1965 [facility] # - [id number] ASSESSMENT & PLAN 1. Type 2 diabetes mellitus without complication, without long-term current use of insulin ([facility]) - Goals of treatment reviewed with patient - Currently on metformin and sitagliptan - Repeat A1c to assess efficacy of treatment. Might be better with GLP-1 and SGLT-2 agents - Comprehensive metabolic panel; Future - Hemoglobin A1c; Future - Lipid profile; Future 2. Stage 3b chronic kidney disease ([facility]) - Repeat GFR - Renal protective strategies reviewed with patient. - Advised patient to stop voltaren tablets - May benefit from SGLT-2 3. Essential hypertension - Goals reviewed with patient - Currently taking losartan 50 mg daily - No change today 4. Class 3 severe obesity due to excess calories with serious comorbidity and body mass index (BMI)of 60.0 to 69.9 in adult ([facility]) - We reviewed importance of weight loss [...] total) by mouth in the morning and 1tablet (1,000 mg total) before bedtime., Disp: , [...] 2 g at noon and 2 g inthe evening and 2 g before bedtime. (Patient [...] Testing No results found. Merritt Thacker DO., [facility] Office: [phone] documented in this encounterSt. Rita's Hospital01-19-2024 Telephone encounter Note* Telephone Encounter - [facility] July - 06/17/2023 9:18 AM EST Sarah, patient called stated that he received two refund checks from [employer]. He deposited the checks and then was told from his bank that they bounced. If you could look into this for me please, all I am seeing is that the refunds were sent out. Call back # [phone] [facility] HospitalArmvypayxj29-21-3375 Miscellaneous Notes* Telephone Encounter - [facility] July - 06/17/2023 9:18 AM EST Sarah, patient called stated that he received two refund checks from [employer]. He deposited the checks and then was told from his bank that they bounced. If you could look into this for me please, all I am seeing is that the refunds were sent out. Call back # [phone] [facility]* Diagnosis Right shoulder pain, unspecified chronicity- Primary Chronic pain of both knees Chronic pain of both ankles Impingement of right shoulder [facility] Diagnosis Type 2 diabetes mellitus without complication, without long-term current use of insulin ([facility])- Primary Chronic combined systolic and diastolic CHF (congestive heart failure) ([facility]) Obesity, morbid ([facility]) Morbid obesity Stage 3b chronic kidney disease ([facility]-H[facility]) Encounter for screening for malignant neoplasm of prostate Encounter for immunization Primary osteoarthritis of right shoulder Non-seasonal allergic rhinitis, unspecified trigger [facility] Diagnosis Type 2 diabetes mellitus without complication, without long-term current use of insulin ([facility]) [facility] Diagnosis Acute on chronic systolic congestive heart failure ([facility] Primary Essential hypertension Unspecified essential hypertension Stage 3b chronic kidney disease ([facility]) Type 2 diabetes mellitus without complication, without long-term current use of insulin ([facility]) Obesity, morbid ([facility]) Morbid obesity [facility] Diagnosis Type 2 diabetes mellitus without complication, without long-term current use of insulin ([facility] Primary Stage 3b chronic kidney disease ([facility]) Essential hypertension Unspecified essential hypertension Class 3 severe obesity due to excess calories with serious comorbidity and body mass index (BMI) of60.0 to 69.9 in adult ([facility]) Immunization due [facility] Diagnosis Chronic combined systolic and diastolic CHF (congestive heart failure) ([facility]) - Primary Type 2 diabetes mellitus without complication, without long-term current use of insulin ([facility]) Primary osteoarthritis of right shoulder Stage 3b chronic kidney disease ([facility]) Hyperlipidemia, unspecified hyperlipidemia type [facility] Diagnosis Type 2 diabetes mellitus without complication, without long-term current use of insulin ([facility] Primary Chronic combined systolic and diastolic CHF (congestive heart failure) ([facility]) Primary osteoarthritis of right shoulder Chronic right shoulder pain Pain in joint, shoulder region Primary osteoarthritis of both ankles [facility] Diagnosis Type 2 diabetes mellitus without complication, without long-term current use of insulin ([facility]) [facility] Diagnosis Type 2 diabetes mellitus without complication, without long-term current use of insulin ([facility] Primary Special screening for malignant neoplasm of colon Special screening for malignant neoplasms, colon Chronic combined systolic and diastolic CHF (congestive heart failure) ([facility]) Non-seasonal allergic rhinitis, unspecified trigger Primary osteoarthritis of right shoulder [facility] Diagnosis Type 2 diabetes mellitus without complication, without long-term current use of insulin ([facility]) Non-seasonal allergic rhinitis, unspecified trigger documented in [...] for referral (narrative)* Consultation (Routine) - Pending ReviewSpecialtyDiagnoses / ProceduresReferred By ContactReferred To ContactPodiatry Diagnoses Chronic pain of both ankles Procedures [place] OFFICE/OUTPATIENT NEW HIGH MDM 60 MINUTES Inna Jefferson NP [address] [place] [id number] Ivan Payne MD [address] [place] [address] [place] [address] Referral IDStatusReasonStart DateExpiration DateVisits RequestedVisits [id number] Review Specialty Services Required * Consultation (Routine) - Pending ReviewSpecialtyDiagnoses / ProceduresReferred By ContactReferred To ContactPain Medicine Diagnoses Chronic pain of both knees Procedures [place] OFFICE/OUTPATIENT NEW HIGH MDM 60 MINUTES Inna Jefferson NP [address] [place] [address] Karel Blackwell MD [address] [place] [address] Referral IDStatusReasonStart DateExpiration DateVisits RequestedVisits [id number] Review Specialty Services Required * Clinic-Administered Medication (Routine) - AuthorizedSpecialtyDiagnoses / ProceduresReferred By ContactReferred To ContactOrthopaedic Surgery Diagnoses Impingement of right shoulder Procedures L Inj/Asp: R subacromial bursa Inna Jefferson NP [address] [facility] [address] [place] [address] Referral IDStatusReasonStart DateExpiration DateVisits RequestedVisits [id number]/202511 GABY Paz for referral (narrative)* Consultation (Routine) - Pending ReviewSpecialtyDiagnoses / ProceduresReferred By ContactReferred To Contact Orthopedic Surgery / MED-SURG/ORTHOPEDICS Diagnoses Primary osteoarthritis of right shoulder Chronic right shoulder pain Primary osteoarthritis of both ankles Merritt Thacker DO [address] [place] [address] Kaveh Mayer DO [address] [facility] [address] [place] [address] Referral IDStatusReasonStart DateExpiration DateVisits RequestedVisits [id number] Review Specialty Services Required [facility] Summary Purpose Family History No Family History Records FoundNo Family History Records FoundNo Family History Records FoundNo Family History Records FoundNo Family History Records FoundNo Family History Records Found Advance Directives No Advanced Directives Records FoundNo Advanced Directives Records FoundNo Advanced Directives Records FoundNo Advanced Directives Records FoundNo Advanced Directives Records FoundNo Advanced Directives Records Found Reason for Referral SpecialtyDiagnoses / ProceduresReferred By ContactReferred To Contact Diagnoses Type 2 diabetes mellitus without complication, without long-term current use of insulin ([facility]) Merritt Thacker DO [address] [place] [address] Referral IDStatusReasonStart DateExpiration DateVisits RequestedVisits [id number] Additional Source Comments (unrecognized sect ion and content) No Status Records FoundNo Status Records FoundNo Status Records FoundNo Status Records FoundNo Status Records FoundNo Status Records Found INFORMATION SOURCE (unrecogn ized section and content) DATE CREATED AUTHOR 10/11/2020 [facility] DATE CREATED AUTHOR AUTHOR'S ORGANIZ ATION 07/03/2022 [facility] DATE CREATED AUTHOR AUTHOR'S ORGANIZ ATION 03/02/2024 [facility] EP[facility] DATE CREATED AUTHOR AUTHOR'S ORGANIZ ATION 09/05/2024 [facility] DATE CREATED AUTHOR AUTHOR'S ORGANIZ ATION 09/05/2024 [facility] DATE CREATED AUTHOR AUTHOR'S ORGANIZ ATION 01/22/2025 [facility] Reason for Visit (unrecogniz ed section and content) ReasonOnset DateCommentsRefund [id number]lty Diagnoses / ProceduresReferred By ContactReferred To ContactOrthopaedic Surgery Diagnoses Primary osteoarthritis of right shoulder Chronic right shoulder pain Primary osteoarthritis of both ankles Procedures AMB REFERRAL TO ORTHOPEDIC SURGERY Merritt Thacker MD [address] [place] [address] Kaveh Mayer DO [address] [facility] [address] [place] [address] Referral IDStatusReasonStart DateExpiration DateVisits RequestedVisits [id number] DateCommentsReferral 4ReasonCommentsHypertensionHyperlipidemiacvReasonOnset DateCommentsMed Dribja324ReasonCommentsbloating and swelling belly on downNo feverReason CommentsDiabetesStomach some hard skinReasonCommentsFollow-upReasonComments DiabetesReasonCommentsMed RefillReasonCommentsDiabetesReasonOnset DateComments Colon Cancer Hjkxkvfrl40/19/2025 Care Teams (unrecognized sec tion and content) Team MemberRelationshipSpecialtyStart DateEnd Date Merritt Thacker MD [address] [place] [address] PCP - GeneralInternal Kvlnokgm84/30/23Team MemberRelationshipSpecialtyStart Date End Date Merritt Thacker MD [address] [place] [address] PCP - GeneralInternal Kdofydja51/30/23Team MemberRelationshipSpecialtyStart Date End Date Merritt Thacker MD [address] [place] [address] PCP - GeneralInternal Ixwoansy65/30/23Team MemberRelationshipSpecialtyStart Date End Date Merritt Thacker MD [address] [place] [address] PCP - GeneralInternal Jvxzhzys53/30/23Team MemberRelationshipSpecialtyStart Date End Date Merritt Thacker DO [address] [place] [address] PCP - GeneralInternal Medicine01/12/23Team MemberRelationshipSpecialtyStart Date End Date Juan AntonioyosiMerritt hay DO [address] [place] [address] PCP - GeneralInternal Medicine01/12/23Team MemberRelationshipSpecialtyStart Date End Date Merritt Thacker, DO [address] [place] [address] PCP - GeneralInternal Medicine01/12/23Team MemberRelationshipSpecialtyStart Date End Date Merritt Thacker DO [address] [place] [address] PCP - GeneralInternal Medicine01/12/23Team MemberRelationshipSpecialtyStart Date End Date Merritt Thacker, DO [address] [place] [address] PCP - GeneralInternal Medicine01/12/23Team MemberRelationshipSpecialtyStart Date End Date Merritt Thacker, DO [address] [place] [address] PCP - GeneralInternal Medicine01/12/23Team MemberRelationshipSpecialtyStart Date End Date Merritt Thacker, DO [address] [place] [address] PCP - GeneralInternal Medicine01/12/23Team MemberRelationshipSpecialtyStart Date End Date Merritt Thacker DO [address] [place] [address] [facility]01/12/23[facility] MemberRelationshipSpecialtyStart Date End Date Merritt Thacker DO [address] [facility] [place] [address] [facility]01/12/23[facility] MemberRelationshipSpecialtyStart Date End Date Merritt Thacker DO [address] [place] [address] [facility]01/12/23[facility] MemberRelationshipSpecialtyStart Date End Date Merritt Thacker DO [address] [place] [address] [facility]01/12/23[facility] MemberRelationshipSpecialtyStart Date End Date Merritt Thacker DO [address] [place] [address] [facility]01/12/23 FOR RECORDS PERTAINING TO PATIENTS WHO ARE [...] BE BASED ON THE PRIMARY CLINICAL RECORDS. [facility] [employer] [facility]. provides no warranty or guarantee of the accuracy or completeness of information in this document.
[2025-03-20 14:10] LABS: Anion Gap 14.6; Blood Urea Nitrogen 37.0 mg/dL (7.0-18.0); Calcium 8.8 mg/dL (8.5-10.1); Carbon Dioxide 28.9 mmol/L (21.0-32.0); Chloride 107 mmol/L (98-107); Estimated GFR (African America 60 (>=60 mL/min/1.73m^2); Estimated GFR (Non-African Ame 49 (>=60 mL/min/1.73m^2); Glucose 139 mg/dL (74-106); Potassium 5.5 mmol/L (3.5-5.1); Sodium 145 mmol/L (136-145)
== END 2025-03-20 13:19 | disposition home or self-care (01) ==
PROVIDERS: PCP Family Medicine; Visit Provider Internal Medicine
DX: I50.9 Heart failure, unspecified (principal); R60.9 Edema, unspecified
CPT/HCPCS: 36415; 80048

== ENCOUNTER 2025-04-02 09:12 | Outpatient (OUT) | payer MEDICARE, SELFPAY ==
--- OUTSIDE RECORDS SUMMARY | 2025-04-02 09:17 | XMS_ITS | Clinical Summary ---
Author Organization [employer] Address [id number] [address] [place] [address] Care Team Providers Care Rug Setter Velvet Name Role Phone Unavailable Primary Care Provider Unavailabl e Allergies Active AllergyReactionsCriticalityNoted DateCommentsTopiramateHeadache,Other (See Comments)05/17/2014 Severe headache Medications MedicationSigDispense QuantityRefillsLast FilledStart DateEnd DateStatus albuterol (PROVENTIL HFA;VENTOLIN HFA) 90 mcg/actuation inhaler INHALE 2 PUFFS BY MOUTH EVERY 4 HOURS NEEDED for SHORTNESS OF BREATH or FOR GUVPYAIT66/21/2024ctive aspirin 81 mg chewable tablet Indications:Chronic combined systolic and diastolic CHF (congestive heart failure) ([facility])Chew 1 tablet (81 mg total) and swallow in the morning. 90 tablet ctive magnesium oxide 250 mg tablet Indications:Chronic combined systolic and diastolic CHF (congestive heart failure) ([facility])Take 1 tablet (250 mg total) by mouth in the morning. 90 tablet 4Active atorvastatin (LIPITOR) 40 mg tablet Indications:Type 2 diabetes mellitus without complication, without long-term current use of insulin ([facility])Take 1 tablet (40 mg total) by mouth nightly. 90 tablet 5Active carvediloL (COREG) 12.5 mg tablet Indications:Chronic combined systolic and diastolic CHF (congestive heart failure) ([facility])Take 1 tablet (12.5 mg total) by mouth in the morning and 1 tablet (12.5 mg total) in the evening. Take with meals. 180 tablet 5Active furosemide (LASIX) 40 mg tablet Indications:Chronic combined systolic and diastolic CHF (congestive heart failure) ([facility])Take 1 tablet (40 mg total) by mouth daily. 30 tablet 1101/07/2025Active losartan (COZAAR) 50 mg tablet Indications:Chronic combined systolic and diastolic CHF (congestive heart failure) ([facility])Take 1 tablet (50 mg total) by mouth in the morning. 90 tablet 5Active spironolactone (ALDACTONE) 25 mg tablet Indications:Chronic combined systolic and diastolic CHF (congestive heart failure) ([facility])Take 1 tablet (25 mg total) by mouth in the morning. 90 tablet 5Active dapagliflozin propanediol (FARXIGA) 10 mg tablet Indications:Chronic combined systolic and diastolic CHF (congestive heart failure) ([facility])Take 1 tablet (10 mg total) by mouth in the morning. 120 tablet 5Active baclofen 5 mg tablet Indications:Primary osteoarthritis of right shoulderTake 2 tablets by mouth 2 (two) times a day as needed (back spasm).5Active metFORMIN (GLUCOPHAGE) 1000 mg tablet Indications:Type 2 diabetes mellitus without complication, without long-term current use of insulin ([facility])TAKE 1 TABLET BY MOUTH TWICE DAILY (IN THE MORNING and BEFORE bedtime) 180 tablet 5Active cetirizine (ZyrTEC) 10 mg tablet Indications:Non-seasonal allergic rhinitis, unspecified triggerTake 1 tablet (10 mg total) by mouth in the morning. 30 tablet 5Active Active Problems ProblemNoted DateDiagnosed DateChronic combined systolic and diastolic CHF (congestive heart failure)01/16/2024Stage 3b chronic kidney uvhwvhd5003/10/2023 Lzsejiwozeslne21/12/2023Type 2 diabetes mellitus without complication, without long-term current use of piiggen2703/10/2023Essential vjbxznkgipwo08/12/2023 Rotator cuff syndrome of right vxpugcxp66/12/2023Obesity, bpzqvk2701/10/2023 Resolved Problems ProblemNoted DateDiagnosed DateResolved DateAcute on chronic systolic congestive heart ryeoucq27 Encounters DateTypeDepartmentCare NzggKxygsrpahnk70/02/2025Refill [facility] [address] [place] [phone] Sandip Woo, DO Type 2 diabetes mellitus without complication, without long-term current use of insulin ([facility]); Chronic combined systolic and diastolic CHF (congestive heart failure) ([facility]) 02/15/2025Telephone [facility] [address] [place] [address] Noemi Caraballo, [facility] Colon Cancer Ctxsnulfm54/11/2025Orders Only [facility] [address] [place] [phone] Ref Prov, Not In System from Last 3 Months Immunizations ImmunizationAdministration DatesNext DueInfluenza, Injectable, quadrivalent (PF) 03/10/2023Influenza, Trivalent, Vhcokrywga07/07/1038Uaqf03/12/2023 Family History Medical HistoryRelationNameCommentsDiabetesFatherHeart failureFatherHeart failureMotherRelationNameStatusCommentsFatherDeceasedMotherDeceased Social History Tobacco UseTypesPacks/DayYears UsedDateSmoking Tobacco: NeverSmokeless Tobacco: Never Tobacco Cessation:Counseling Given: Not Answered Alcohol UseStandard Drinks/WeekCommentsYes2 (1 standard drink = 0.6 oz pure alcohol)rarePHQ-2AnswerDate RecordedTotal Lqjuk382hildcareAnswerDate JmvdofpjTnawprbruPyooxxs52/13/2020EmploymentAnswerDate RecordedEmploymentUnknown 04/11/2020Hunger ScreeningAnswerDate RecordedWithin the past 12 months we worried whether our food would run out before we got money to buy more.Never True09/03/2024Within the past 12 months the food we bought just didn't last and we didn't have money to get more.Never True09/03/2024Purpose - LifeAnswerDate RecordedPurpose and direction in vahfBadmmzc39/11/2021ex and Gender Information ValueDate RecordedSex Assigned at BirthNot on fileLegal AtyPgpz1301/02/2015 11:32 AM EDTGender IdentityNot on fileSexual OrientationNot on file Last Filed Vital Signs Vital SignReadingTime TakenCommentsBlood Kbfqyffr359/7004 1:48 PM EDTbp cuff not big iyokgbEcjyy4742/07/2025 1:48 PM RREHkbtbqetqyh07.4 ??C (97.5 ??F) 09/03/2024 1:48 PM EDTRespiratory Lhnz4845 1:48 PM EDTOxygen Saturation 91%09/03/2024 1:48 PM EDTInhaled Oxygen Concentration--Msjgrh800.3 kg (410 lb 12.8 oz)09/03/2024 1:48 PM VJJJsbqgy075.6 cm (5' 6 )09/03/2024 1:48 PM EDTBody Mass Index66. 1:48 PM EDT Plan of Treatment Health MaintenanceDue DateLast DoneCommentsDiabetic Ophthalmology Exam1964 Adult BMI Follow Up Plan1982Zoster (Shingles) Vaccine (1 of 2)2014 Diabetic Foot Exam01/10/RSV ( or age 60+ yrs) (1 - Risk 60-74 years 1-dose series)2024Influenza Hqbimyj48, 03/10/2023epression Mdcdunynt43Statin Use: Adbnjroa20/07/2026 06/05/2024dult BMI Fbplsimuk10Tobacco Vupiqfjvc45/07/2026 09/03/2024DTaP,Tdap and Td Vaccines (2 - Td or Tdap) Medical Devices Not on file Insurance
--- OUTSIDE RECORDS SUMMARY | 2025-04-02 09:17 | XMS_ITS | Clinical Summary ---
Author Organization [facility] Address [address] [facility] [place] [address] Care Team Providers Care Canal Equipment Mechanic Name Role Phone Sandip Woo MD Primary Care Provider [phone] Allergies Active AllergyReactionsCriticalityNoted HngqMipgrhdvKcriozswpc93/30/2023 Medications MedicationSigDispense QuantityRefillsLast FilledStart DateEnd DateStatus amLODIPine [...] InformationValueDate RecordedSex Assigned at BirthNot on fileLegal OdqAplz9208/11/2022 7:03 PM EDTGender IdentityNot on fileSexual OrientationNot on file Last Filed Vital Signs Vital SignReadingTime TakenCommentsBlood Foexojph834/7604 12:00 PM EDT Pulse--Temperature--Respiratory Rate--Oxygen Saturation--Inhaled Oxygen Concentration--Xeknjg618 kg (377 lb)09/15/2017 12:00 PM DQIUqyxzm966.6 cm (5' 6 )09/15/2017 12:00 PM EDTBody Mass Index60.85009/15/2017 12:00 PM EDT Plan of Treatment Not on file Insurance Care Teams Team MemberRelationshipSpecialtyStart DateEnd Date Sandip Woo MD [address] [place] [address] PCP - GeneralInternal Eqokcsaa27/30/23
--- OUTSIDE RECORDS SUMMARY | 2025-04-02 09:17 | XMS_ITS | Clinical Summary ---
Author Organization [facility] Address [address] [place] [address] Care Team Providers Care Senior Mobile Solutions Architect Name Role Phone Denys Breen MD Primary Care Provider [phone] Allergies Active AllergyReactionsCriticalityNoted DateCommentsTopiramateHeadache,Other 05/17/2014 Severe headache [...] in the morning and at bedtime.Active HYDROcodone-acetaminophen ([place]) 5-325 mg tablet Take 1 tablet by [...] in the morning.Active Active Problems ProblemNoted DateDiagnosed KyauLurjuwfoffnb94/20/2025Lumbar radiculopathy 01/16/2025OSA (obstructive sleep apnea)01/16/2025 Overview (01/16/2025): non compliant home machine Osteoarthritis of knee01/16/2025Shoulder pain01/16/2025hronic combined systolic and diastolic CHF (congestive heart failure)01/16/2024Essential hypertension 03/10/20230863Uyursfankelpzc89/12/2023Rotator cuff syndrome of right shoulder 03/10/2023Stage 3b chronic kidney mpmzrzm0603/10/2023Type 2 diabetes mellitus without complication, without long-term current use of hjxetbo2703/10/2023Obesity, ycrvdx0201/10/2023KD (chronic kidney disease)11/03/20144431Pvxwjfeahopq46/07/2015 Oqcgzcj9011/03/2014History of DVT (deep vein thrombosis)10/14/2014 Encounters DateTypeDepartmentCare SwtfTzzqxlwcheg13/25/2025 1:00 PM EDTOffice Visit [facility] [address] [address] Howard Delatorre, [place] Chronic heart failure with preserved ejection fraction (CMS/HCC) (Primary Dx); Heart failure with improved ejection fraction (HFimpEF) (CMS/HCC); 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; Benign hypertensive heart [...] alcohol)occasionalSex and Gender InformationValueDate RecordedSex Assigned at UihadMcff06/14/2025 9:33 AM EDTLegal PreMros9111/25/2021 11:23 PM EDTGender JjwkkrjxSfdn84/14/2025 9:33 AM EDTSexual OrientationHeterosexual or Straight 01/10/2025 9:33 AM EDT Last Filed Vital Signs Vital SignReadingTime TakenCommentsBlood Yghtoues541/8301/21/2025 1:25 PM EDT Hxmxn190701/21/2025 1:25 PM EDTTemperature--Respiratory Rate--Oxygen Ooxfrdeflr85% 01/21/2025 1:25 PM EDTInhaled Oxygen Concentration--Msqhcf046 kg (420 lb) 01/21/2025 1:25 PM EHOHqmdgx258.6 cm (5' 6 )01/21/2025 1:25 PM EDTBody Mass Index67.7901/21/2025 1:25 PM EDT Plan of Treatment DateTypeDepartmentCare Team (Latest Contact Info)Ppkswidecdg92/05/2025 9:40 AM ESTOffice Visit [facility] [address] [place] [address] Carol Le, COMPUTER PROGRAMMING SUPERVISOR [address] [place] [address] Health MaintenanceDue DateLast DoneCommentsCT Mtckvoujxedn14/31/1965Colonoscopy 1964Colorectal Cancer Nhvkstxuz92/31/1965Diabetes: Hemoglobin A1C 1964FIT-DNA1964FIT1964FOBT1964Medicare Annual Wellness (AWV)1964 9102Lvethmagljuqj55/31/1965Diabetes: Retinopathy Vupikcjdi79/31/1975 Depression Uhauokevd94/31/1977Diabetes: Urine Protein Udsnlehkr89/31/1984 Pneumococcal Vaccine: Pediatrics (0 to 5 Years) and At-Risk Patients (6 to 64 Years) (1 of 2 - PCV)10/28/1983Zoster Vaccines (1 of 2)2014COVID-19 Vaccine (1 - season)2025Influenza Vaccine (#1)2025 06/05/2024, 03/10/2023dult Crkfsrm74HIB VaccinesAged OutNo longer eligible based on patient's [...] DateEnd Date Denys Breen MD [address] [facility] [place] [address] PCP - GeneralFamily Medicine01/21/25
--- OUTSIDE RECORDS SUMMARY | 2025-04-02 09:17 | XMS_ITS | Clinical Summary ---
Author Organization [facility] Address [address] [place], [place] [id number] Care Team Providers Care Wood Ski Maker Name Role Phone Jarred KILGORE MD, Thom Nash Primary Care Provider [phone]- [phone] Allergies Active AllergyReactionsCriticalityNoted DateCommentsTopiramateIntolerance 10/14/2014 Severe headache [...] InformationValueDate RecordedSex Assigned at BirthNot on fileLegal QmhBkfa9806/03/2014 11:42 AM ESTGender IdentityNot on fileSexual OrientationNot on file Last Filed Vital Signs Vital SignReadingTime TakenCommentsBlood Wljtgcja649/8304 1:16 PM EDT Hfrar278709/22/2015 1:16 PM CFHIoywjusxujf79.9 ??C (98.5 ??F)10/14/2014 1:20 PM EDTRespiratory Srqi427309/22/2015 1:16 PM EDTOxygen Saturation--Inhaled Oxygen Concentration--Oehggz870.5 kg (466 lb 4.8 oz)09/22/2015 1:16 PM EVISgkhdj573.6 cm (5' 5.98 )09/22/2015 1:16 PM EDTBody Mass Index75.304 1:16 PM EDT Plan of Treatment Health MaintenanceDue DateLast DoneCommentsAnxiety Taqxfieyo42/31/1983Depression Ccfjbjfst07/31/1983HIV Eajbetuwi11/31/1983Hepatitis C Mlwkwurue43/31/1983 DTaP,Tdap,Td Vaccine (1 - Tdap)10/28/1983Lipid Kasunuhte98/31/2000CT Dedzumltincz41/31/2010Cologuard (FIT-DNA)10/27/20097956Wwxbgduassu46/31/2010 Colorectal Cancer Mbkyydoan84/31/2010Fecal Occult Blood2009Prostate Cancer Screening Lsviqremgg08/31/4255Xiooticcymaqn92/31/2010Pneumococcal Vaccine: 50+ (1 of 1 - PCV)2014Shingrix Vaccine (1 of 2)2014Diabetes Screening Covid-19 Vaccine (1 - 2024- season)2025Influenza Vaccine (#1)2025RSV Vaccine (1 - 1-dose 75+ series)10/28/2039 Procedures Procedure NamePriorityDate/TimeAssociated DiagnosisCommentsCOMPREHENSIVE METABOLIC YISZHXqsgmnm81/18/2015 2:02 PM EDT History of DVT (deep vein thrombosis) from Last 3 Months or Most Recently Relevant to Health Maintenance Results * (ABNORMAL) COMP METABOLIC PANEL (10/14/2014 2:02 PM EDT)ComponentValueRef RangeTest MethodAnalysis TimePerformed AtPathologist SignatureProtein, Total 7.66.0 - 8.4 g/dL10/15/2014 2:33 AM [facility] LABORATORYAlbumin 3.73.5 - 5.0 g/dL10/15/2014 2:33 AM [facility] LABORATORYCalcium 9.38.5 - 10.5 mg/dL10/15/2014 2:33 AM [facility] Bilirubin, Total0.20.0 - 1.5 mg/dL10/15/2014 2:33 AM [facility] LABORATORYAlkaline Ogikndnsews91298 - 150 U/L10/15/2014 2:33 AM [facility] LWBCVRIMBVCVH48(H)7 - 40 U/L10/15/2014 2:33 AM [facility] HLBOWPFEXANxekymo0184 - 100 mg/dL10/15/2014 2:33 AM [facility] FAQPDYQYNUFNX22(H)10 - 25 mg/dL10/15/2014 2:33 AM [facility] LABORATORYCreatinine2.79(H)0.70 - 1.40 mg/dL10/15/2014 2:33 AM EDT [facility] DMMNHESVYOBlutop537843 - 146 mmol/L10/15/2014 2:33 AM [facility] LABORATORYPotassium4.83.5 - 5.0 mmol/L10/15/2014 2:33 AM [facility] LBVDSETDHIHclgsito80(L)98 - 110 mmol/L10/15/2014 2:33 AM [facility] AXNWTGSUCUNM85614 - 32 mmol/L10/15/2014 2:33 AM [facility] LABORATORYAnion Gap18(H)0 - 15 mmol/L10/15/2014 2:33 AM [facility] UMONMMDXBYWBX083 - 50 U/L10/15/2014 2:33 AM [facility] LABORATORYeGFR- Keruqxft6191/19/2015 2:33 AM [facility] LABORATORYeGFR-All Other Races24.10/15/2014 2:33 AM [facility] LABORATORYComment: eGFR (Estimated GFR) Units of [...] StatusAlfred P VargasLABORATORYFinal ResultPerforming OrganizationAddressCity/State/ZIP CodePhone Number [facility] [address] [place] [address] from Last 3 Months or Most Recently Relevant to Health Maintenance Insurance Care Teams Team MemberRelationshipSpecialtyStart DateEnd Thom Stern II, MD PCP - GeneralPhoenix [facility] Hospitalnal Medicine06/03/14
--- OUTSIDE RECORDS SUMMARY | 2025-04-02 09:20 | XMS_ITS | CCD ---
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 above:Performed By: #### [facility], 25338-4 #### [facility] ([id number]) [address] [place] [address], [address] [place], [place] [address]YrH2l (Bld) [Mass fraction]6.9 %High4.4-5.6Barney Children's Medical CenterComment on above:Result Comment: NOTE ADA Guidelines Result HgbA1c Normal : less than 5.7 % Prediabetes : 5.7 % to 6.4 % Diabetes : > 6.4 % Use with caution in patients with abnormal hemoglobin variants as the half-life of red blood cells and in vivo glycation rates are affected.Performed By: #### TEMITOPE, 04166-0 #### [facility] ([id number]) [address], [address] [place], [place] [address]Niatxidvkj A1con 11-34-3121Hurzslw glucose Estimated from glycated hemoglobin (Bld) [Mass/Vol]151 mg/dLUC Medical CenterHbA1c (Bld) [Mass fraction]6.9 %High4.4 - 5.6 %UC Medical CenterComment on above:NOTE ADA Guidelines Result HgbA1c Normal : less than 5.7 % Prediabetes : 5.7 % to 6.4 % Diabetes : > 6.4 % Use with caution in patients with abnormal hemoglobin variants as the half-life of red blood cells and in vivo glycation rates are affected. Interpretation and review of laboratory resultsAbnormalHaven Behavioral Hospital of PhiladelphiaCOMPREHENSIVE METABOLIC PANELon 13-62-4508Sgbyscp [Mass/Vol]3.6 g/dLNormal3.2-5.3ProMedica City HospitalComment on above: Performed By: #### TEMITOPE, HA1C #### [facility] ([id number]) [address], [address] [place], [place] [address]GQT [Catalytic activity/Vol]117 U/SYozkrl65-282RbwOildav [place] HospitalComment on above:Performed By: #### TEMITOPE, HA1C #### [facility] ([id number]) [address], [address] [place], [place] [address]DFR [Catalytic activity/Vol]16 U/LNormal0-40ProAshtabula County Medical CenterComment on above:Performed By: #### TEMITOPE, HA1C #### [facility] ([id number]) [address], [address] [place], [place] [address]Pmnwx gap [Moles/Vol]7 mmol/LNormal5-15Pro[facility] [address] [facility] Hospital Comment on above:Performed By: #### TEMITOPE, HA1C #### [facility] ([id number]) [address], [address] [place], [place] [address]KDF [Catalytic activity/Vol]14 U/LNormal0-41ProCoosa Valley Medical Center Mcmanus HospitalComment on above:Performed By: #### TEMITOPE, HA1C #### [facility] ([id number]) [address], [address] [place], [place] [address]Imbqblkyr [Mass/Vol]0.6 mg/dLNormal0.3-1.2ProMedPaulding County Hospital HospitalComment on above:Performed By: #### TEMITOPE, HA1C #### [facility] ([id number]) [address], [address] [place], [place] [address]Gbclalt [Mass/Vol]8.8 mg/dLNormal8.5-10.5ProMedPaulding County Hospital HospitalComment on above:Performed By: #### TEMITOPE, HA1C #### [facility] ([id number]) [address], [address] [place], [place] [address]Lpficzdq [Moles/Vol]107 mmol/GMoqypw40-424SmpShzldc [place] HospitalComment on above:Performed By: #### TEMITOPE, HA1C #### [facility] ([id number]) [address], [address] [place], [place] [address]NZ1 [Moles/Vol]28 mmol/UGqceht41-20AgdXlaalb [facility] Comment on above:Performed By: #### CMP, HA1C #### [facility] ([id number]) [address], [address] [place], [place] [address]Jskktjcltb [Mass/Vol]1.11 mg/dLNormal0.60-1.30ProAdams County Regional Medical Centerca Mcmanus HospitalComment on above:Result Comment: METHOD TRACEABLE TO IDMS STANDARD Performed By: #### CMP, HA1C #### [facility] ([id number]) [address], [address] [place], [place] [address]BEK/1.73 sq M.predicted among non-blacks MDRD (S/P/Bld) [Vol rate/Area]76 mL/min/{1.73_m2}Normal>59ProAshtabula County Medical CenterComment on above: Result Comment: Reported eGFR is based on the CKD-EPI 2020 equation that does not use a race coefficient.Performed By: #### TEMITOPE, WILLY #### [facility] ([id number]) [address], [address] [place], [place] [address]Xtfyere [Mass/Vol]156 mg/pWWaei98-65HjhBeppbaBarney Children's Medical Center Comment on above:Performed By: #### WILLY LINN #### [facility] ([id number]) [address], [address] [place], [place] [address]Imyokegyh [Moles/Vol]4.7 mmol/LNormal3.5-5.0ProAshtabula County Medical CenterComment on above:Performed By: #### TEMITOPE, HAMaria De Jesus #### [facility] ([id number]) [address], [address] [place], [place] [address]Plftmbn [Mass/Vol]6.8 g/dLNormal6.0-8.0[facility] Comment on above:Performed By: #### TEMITOPE, HA1C #### [facility] ([id number]) [address], [address] [place], [place] [address]Mxmgaf [Moles/Vol]142 mmol/JPpznkx676-729DcmVurcwr [place] HospitalComment on above:Performed By: #### TEMITOPE, HA1C #### [facility] ([id number]) [address], [address] [place], [place] [address]Aiov nitrogen [Mass/Vol]24 mg/dLHigh5-23ProWilson [address] [facility] HospitalComment on above:Performed By: #### TEMITOPE, HA1C #### [facility] ([id number]) [address] [facility], [address] [place], [place] [address]Dtbffzatzwokt metabolic panelon 41-47-1713Xitzaxu [Mass/Vol]3.6 g/dL3.2 - 5.3 g/dLProCoosa Valley Medical Center Health SystemALP [Catalytic activity/Vol]117 U/L39 - 130 U/LProMedica Health SystemALT No additional P-5'-P [Catalytic activity/Vol] 16 U/L0 - 40 U/LProMedica Health SystemAnion gap [Moles/Vol]7 mmol/L5 - 15 mmol/LProMedica Health SystemAST [Catalytic activity/Vol]14 U/L0 - 41 U/L ProMEly-Bloomenson Community Hospital SystemBilirubin [Mass/Vol]0.6 mg/dL0.3 - 1.2 mg/dLMercy Health St. [facility] SystemCalcium [Mass/Vol]8.8 mg/dL8.5 - 10.5 mg/dLMercy Health St. [facility] Chloride [Moles/Vol]107 mmol/L98 - 109 mmol/LPrSaint Luke's Hospitalica Health SystemCO2 [Moles/Vol]28 mmol/L22 - 32 mmol/LPrSaint Luke's Hospitalica Health SystemCreatinine [Mass/Vol] 1.11 mg/dL0.60 - 1.30 mg/dLMercy Health St. Elizabeth Board[facility] Hospital SystemComment on above:METHOD TRACEABLE TO [facility] STANDARDeGFR (CKD-EPI)non-race whvuoxyjw20- [facility] HospitalComment on above: Reported eGFR is based on the CKD-EPI 2020 equation that does not use a race coefficient. Glucose [Mass/Vol]156 mg/kAOrgt23 - 99 mg/dLMercy Health St. [facility] System Interpretation and review of laboratory resultsAbnormalMercy Health St. [facility] System Potassium [Moles/Vol]4.7 mmol/L3.5 - 5.0 mmol/LProMedica Health SystemProtein [Mass/Vol]6.8 g/dL6.0 - 8.0 g/dLMercy Health St. [facility] SystemSodium [Moles/Vol]142 mmol/L134 - 146 mmol/LPrSaint Luke's Hospitalica Health SystemUrea nitrogen [Mass/Vol]24 mg/dL High5 - 23 mg/dLMercy Health St. [facility] SystemProBarnesville Hospital SystemHGB A1C (GLYCO-HGB)on 88-48-2563Phfyinb [Mass/Vol]143 mg/dLNormalProAshtabula County Medical CenterComment on above:Performed By: #### TEMITOPE, 58969-0 #### [facility] ([id number]) [address] [place] [address], [address] [place], [place] [address]NhY1s (Bld) [Mass fraction]6.6 %High4.4-5.6ProAshtabula County Medical CenterComment on above:Result Comment: NOTE ADA Guidelines Result HgbA1c Normal : less than 5.7 % Prediabetes : 5.7 % to 6.4 % Diabetes : > 6.4 % Use with caution in patients with abnormal hemoglobin variants as the half-life of red blood cells and in vivo glycation rates are affected.Performed By: #### TEMITOPE, 55736-7 #### [facility] ([id number]) [address] [place] [address], [address] [place], [place] [address]Ljvhexcy specific Ag [Mass/Vol]on 46-05-2746BuzVqxlbv Health SystemPSA SCREEN0.27 ng/mLNormal0.00-4.00Barney Children's Medical CenterComment on above:Result Comment: The method used for this test is Timmy [place] DXI chemiluminescent immunoassay. Values obtained by different assay methods cannot be used interchangeably.Performed By: #### TEMITOPE, 21393-3 #### [facility] ([id number]) [address] [place] [address], [address] [place], [place] [address]Mivokdqak specific antigen screenon 86-71-7502Huggzgde specific Ag [Mass/Vol]0.27 ng/mL0.00 - 4.00 ng/mLUC Medical CenterComment on above: The method used for this test is Timmy [place] DXI chemiluminescent immunoassay. Values obtained by different assay methods cannot be used interchangeably. No Panel Informationon 68-83-2175Evhnf B Apling, DIRECTOR EMERGENCY SERVICES 02/29/2024 1:06 PM L Inj/Asp: R subacromial bursa on 02/29/2024 1:02 PM Indications: pain Details: 20 G needle, posterior approach Medications: 40 mg methylPREDNISolone acetate 40 MG/ML Utilizing aseptic technique with universal precautions . Pt given injection Right Shoulder SA space Procedure, treatment alternatives, risks and benefits explained, specific risks discussed. Consent was given by the patient. [facility] HealthMICROALBUMIN - ALBUMIN:CREATININE URINE RATIOon 74-27-5028PVC/CREAT RATIO16.6 mg/g creatNormal0.0-30.0[facility] Comment on above:Performed By: #### JACKI #### [facility] ([id number]) [address], [address] [place], [place] [address]Qgqhkct DL <= 20 mg/L (U) [Mass/Vol]2.2 mg/dLHigh0.0-1.9 [facility] City HospitalComment on above:Performed By: #### JACKI #### [facility] ([id number]) [address], [address] [place], [place] [address]PQBYB SKVSH644.81 mg/dLNormalProWilson [address] Hospital HospitalComment on above:Performed By: #### JACKI #### [facility] ([id number]) [address], [address] [place], [place] [address]JYB AND AUTO DIFFon 74-07-2894KZYALXKL BASOPHIL0.0 X10E9/LNormal 0.0-0.2Pro[facility]ica [place] HospitalComment on above:Performed By: #### TEMITOPE COLES, 92369-7, , HA1C #### [facility] ([id number]) [address], [address] [place], [place] [address]YMXYMRJU NEUTROPHIL5.2 X10E9/LNormal1.5-6.6ProAdams County Regional Medical Centerca [place] HospitalComment on above:Performed By: #### TEMITOPE COLES, 83266-5, , HA1C #### [facility] ([id number]) [address], [address] [place], [place] [address]Omrnssmri/100 WBC (Bld)0.5 %NormalBarney Children's Medical Center Comment on above:Performed By: #### CBCA CMP, , , HA1C #### [facility] ([id number]) [address], [address] [place], [place] [address]Oerowkalysm (Bld) [#/Vol]0.2 10*3/uLNormal0.0-0.4ProWilson [address] Hospital HospitalComment on above:Performed By: #### CBCA, CMP, , , HA1C #### [facility] ([id number]) [address], [address] [place], [place] [address]Sjwsjdftybp/100 WBC (Bld)2.6 %NormalBarney Children's Medical Center Comment on above:Performed By: #### CBCCuca CMP, , , HA1C #### [facility] ([id number]) [address], [address] [place], [place] [address]Oksdgdeocvb distribution width (RBC) [Ratio]16.5 %High11.5-15.0 ProMuab medical westa [place] HospitalComment on above:Performed By: #### CBCA, CMP, , , HA1C #### [facility] ([id number]) [address], [address] [place], [place] [address]Lrdsztymfs (Bld) [Volume fraction]37.1 %Ysj91-47VfuMwvluq [place] HospitalComment on above:Performed By: #### CBCA, CMP, , , HA1C #### [facility] ([id number]) [address], [address] [place], [place] [address]Beyikctwnk (Bld) [Mass/Vol]11.7 g/dLLow13.0-17.0ProWilson [address] [facility] HospitalComment on above:Performed By: #### CBCA, CMP, , , HA1C #### [facility] ([id number]) [address], [address] [place], [place] [address]Hqtpshqoacc (Bld) [#/Vol]1.3 10*3/uLNormal1.0-3.5PKindred Hospital LimaComment on above:Performed By: #### CBCCuca, CMP, , , HA1C #### [facility] ([id number]) [address], [address] [place], [place] [address]Rmuokaqlefy/100 WBC (Bld)18.5 %NormalBarney Children's Medical Center Comment on above:Performed By: #### CBCCuca, TEMITOPE, , , HA1C #### [facility] ([id number]) [address], [address] [place], [place] [address]YRQ (RBC) [Entitic mass]25.5 ofFki22-25PmdRbdmcsBarney Children's Medical Center Comment on above:Performed By: #### CBCTEMITOPE Thurman, , , HA1C #### [facility] ([id number]) [address], [address] [place], [place] [address]MNRQ (RBC) [Mass/Vol]31.6 g/lUKlj69-55UsoBzzgxrBarney Children's Medical Center Comment on above:Performed By: #### CBCA, CMP, , , HA1C #### [facility] ([id number]) [address], [address] [place], [place] [address]KDZ (RBC) [Entitic vol]81 fUJppgva92-442DtwEpfngqBarney Children's Medical CenterComment on above:Performed By: #### CBCA, CMP, , , HA1C #### [facility] ([id number]) [address], [address] [place], [place] [address]Keopwwltb (Bld) [#/Vol]0.3 10*3/uLNormal0-0.9ProAshtabula County Medical CenterComment on above:Performed By: #### CBCCuca, CMP, 12500-8, , HA1C #### [facility] ([id number]) [address], [address] [place], [place] [address]Rtvygiyag/100 WBC (Bld)4.9 %NormalBarney Children's Medical Center Comment on above:Performed By: #### CBCA, CMP, 49717-4, , HA1C #### [facility] ([id number]) [address], [address] [place], [place] [address]Qwnlwplapfr/100 WBC (Bld)73.5 %[facility] Comment on above:Performed By: #### CBCCuca, CMP, , , HA1C #### [facility] ([id number]) [address], [address] [place], [place] [address]Wqrestoj mean volume (Bld) [Entitic vol]7.9 fLNormal7-12 ProMLake County Memorial Hospital - WestComment on above:Performed By: #### CBCCuca, CMP, , , HA1C #### [facility] ([id number]) [address], [address] [place], [place] [address]Yishajbrk (Bld) [#/Vol]240 10*3/cYLjnnib621-547IwsYjmprs [place] HospitalComment on above:Performed By: #### CBCA, CMP, 86791-5, , HA1C #### [facility] ([id number]) [address], [address] [place], [place] [address]ELO COUNT4.61 X10E12/LNormal4.10-5.70[facility] Comment on above:Performed By: #### CBCA, CMP, , , HA1C #### [facility] ([id number]) [address], [address] [place], [place] [address]FOA (Bld) [#/Vol]7.1 10*3/uLNormal4.0-11.0ProMedica Mcmanus HospitalComment on above:Performed By: #### TEMITOPE COLES, 87402-3, , HA1C #### [facility] ([id number]) [address], [address] [place], [place] [address]IDSDQEGVHUPTT METABOLIC PANELon 62-77-1638Pxjxcwo [Mass/Vol]3.6 g/dLNormal3.2-5.3ProMedica Mcmanus HospitalComment on above:Performed By: #### TEMITOPE COLES, 87544-8, , HA1C #### [facility] ([id number]) [address], [address] [place], [place] [address]IEU [Catalytic activity/Vol]121 U/FAreygy25-847DlwFlrift [facility]manus HospitalComment on above:Performed By: #### TEMITOPE COLES, 65114-0, , HA1C #### [facility] ([id number]) [address], [address] [place], [place] [address]SLL [Catalytic activity/Vol]26 U/LNormal0-40ProMedica [facility] HospitalComment on above:Performed By: #### TEMITOPE COLES, 24948-6, , HA1C #### [facility] ([id number]) [address], [address] [place], [place] [address]Jgxvc gap [Moles/Vol]9 mmol/LNormal5-15[facility] Comment on above:Performed By: #### SANKET CMP, 26690-8, , HA1C #### [facility] ([id number]) [address], [address] [place], [place] [address]LRX [Catalytic activity/Vol]20 U/LNormal0-41ProMedica [facility] HospitalComment on above:Performed By: #### TEMITOPE COLES, 30229-4, , HA1C #### [facility] ([id number]) [address], [address] [place], [place] [address]Qbffbjxjq [Mass/Vol]0.7 mg/dLNormal0.3-1.2ProMedPaulding County Hospital HospitalComment on above:Performed By: #### TEMITOPE COLES, , , HA1C #### [facility] ([id number]) [address], [address] [place], [place] [address]Vbvuimn [Mass/Vol]9.2 mg/dLNormal8.5-10.5PUniversity Hospitals Portage [facility] HospitalComment on above:Performed By: #### TEMITOPE COLES, , , HA1C #### [facility] ([id number]) [address], [address] [place], [place] [address]Llhurxck [Moles/Vol]106 mmol/VLmmuxm24-359HbbMwgmzg [place] HospitalComment on above:Performed By: #### TEMITOPE COLES, , , HA1C #### [facility] ([id number]) [address], [address] [place], [place] [address]EH0 [Moles/Vol]28 mmol/OYsfppi35-81GvuWlvvjl [facility] Comment on above:Performed By: #### TEMITOPE COLES, , , HA1C #### [facility] ([id number]) [address], [address] [place], [place] [address]Jmjpmodncm [Mass/Vol]1.19 mg/dLNormal0.60-1.30ProAdams County Regional Medical Centerca Philadelphia HospitalComment on above:Result Comment: METHOD TRACEABLE TO IDMS STANDARD Performed By: #### TEMITOPE COLES, , , HA1C #### [facility] ([id number]) [address], [address] [place], [place] [address]GYJ/1.73 sq M.predicted among non-blacks MDRD (S/P/Bld) [Vol rate/Area]70 mL/min/{1.73_m2}Normal>59ProAshtabula County Medical CenterComment on above: Result Comment: Reported eGFR is based on the CKD-EPI 2020 equation that does not use a race coefficient.Performed By: #### TEMITOPE COLES, , , HA1C #### [facility] ([id number]) [address], [address] [place], [place] [address]Pmlygck [Mass/Vol]130 mg/tGRpke99-60MozUoebbqBarney Children's Medical Center Comment on above:Performed By: #### TEMITOPE COLES, , , HA1C #### [facility] ([id number]) [address], [address] [place], [place] [address]Xewrvtewz [Moles/Vol]4.8 mmol/LNormal3.5-5.0ProAshtabula County Medical CenterComment on above:Performed By: #### TEMITOPE COLES, , , HA1C #### [facility] ([id number]) [address], [address] [place], [place] [address]Qjxgwdx [Mass/Vol]7.0 g/dLNormal6.0-8.0[facility] Comment on above:Performed By: #### TEMITOPE COLES, , , HA1C #### [facility] ([id number]) [address], [address] [place], [place] [address]Geybag [Moles/Vol]143 mmol/SFshysk938-667HheOvyzcs [place] HospitalComment on above:Performed By: #### TEMITOPE COLES, , , HA1C #### [facility] ([id number]) [address], [address] [place], [place] [address]Ddpw nitrogen [Mass/Vol]31 mg/dLHigh5-23ProAshtabula County Medical CenterComment on above:Performed By: #### TEMITOPE COLES, 68500-3, 68886-3, HA1C #### [facility] ([id number]) [address] [facility], [address] [place], [place] [address]VTR A1C (GLYCO-HGB)on 42-40-2669Lvrmrov [Mass/Vol]157 mg/dL NormalProAshtabula County Medical CenterComment on above:Performed By: #### TEMITOPE COLES, 01190-1, , YOSI1C #### [facility] ([id number]) [address] [facility], [address] [place], [place] [address]WkK8n (Bld) [Mass fraction]7.1 %High4.4-5.6ProAshtabula County Medical CenterComment on above:Result Comment: NOTE ADA Guidelines Result HgbA1c Normal : less than 5.7 % Prediabetes : 5.7 % to 6.4 % Diabetes : > 6.4 % Use with caution in patients with abnormal hemoglobin variants as the half-life of red blood cells and in vivo glycation rates are affected.Performed By: #### TEMITOPE COLES, 79498-7, , HA1C #### [facility] ([id number]) [address], [address] [place], [place] [address]Gxskm 1996 panelon 97-71-7488Fcfqzyzgyxs [Mass/Vol]77 mg/dLLow 150-200ProAshtabula County Medical CenterComment on above:Performed By: #### TEMITOPE COLES, 68748-7, , HA1C #### [facility] ([id number]) [address] [facility], [address] [place], [place] [address]Kmhtwmqqjes in HDL [Mass/Vol]27 mg/dLLow>39Pro[address] [facility] HospitalComment on above:Result Comment: HDL <40 mg/dL - High Risk HDL > or = 40mg/dL- Desirable HDL >60 mg/dL - Negative Risk Performed By: ###Son COLES CMP, 19250-8, , HA1C #### [facility] ([id number]) [address], [address] [place], [place] [address]Vafarveazvl in LDL [Mass/Vol]35 mg/dLNormal<130Pro[facility] [address] [facility] HospitalComment on above:Result Comment: LDL <100 mg/dL - Desirable LDL >160 mg/dL - High Risk Performed By: ###Son COLES CMP, 17296-0, , HA1C #### [facility] ([id number]) [address], [address] [place], [place] [address]Nierweoxppf in VLDL [Mass/Vol]15 mg/dLNormal0-30Pro[facility] [address] [facility] HospitalComment on above:Performed By: ###Son COLES CMP, 52029-3, , HA1C #### [facility] ([id number]) [address], [address] [place], [place] [address]HHBTSXMTMAQ:HDL2.0Eiuxax9.0-5.0Pro[address] [facility] HospitalComment on above:Performed By: ###Son COLES CMP, 64853-2, , HA1C #### [facility] ([id number]) [address], [address] [place], [place] [address]Ydsgecenhmki [Mass/Vol]75 mg/gPQqtypk36-007DcqEavetk [facility] HospitalComment on above:Performed By: #### TEMITOPE COLES, 95564-9, , HA1C #### [facility] ([id number]) [address], [address] [place] [address]RLBJTPBGClq 36-85-3941Uloyjtnzk [Mass/Vol]1.9 mg/dLNormal1.8-2.6 [facility] HospitalComment on above:Performed By: #### TEMITOPE COLES, 85093-2, , HA1C #### [facility] ([id number]) [address], [address] [place], [place] [address]AFWQRWJMJNXJQ METABOLIC PANELon 47-53-7059Nhfhcpa [Mass/Vol]3.8 g/dLNormal3.2-5.3Pro[facility] HospitalComment on above:Performed By: #### TEMITOPE, 38279-6 #### [facility] ([id number]) [address], [address] [place], [place] [address]GIN [Catalytic activity/Vol]101 U/JZzdetx28-938YuzYgoqza [facility] HospitalComment on above:Performed By: #### TEMITOPE, 68891-6 #### [facility] ([id number]) [address], [address] [place], [place] [address]UZD [Catalytic activity/Vol]14 U/LNormal0-40[facility] HospitalComment on above:Performed By: #### TEMITOPE, 29624-3 #### [facility] ([id number]) [address], [address] [place], [place] [address]Ssuty gap [Moles/Vol]8 mmol/LNormal5-15[facility] Comment on above:Performed By: #### TEMITOPE, 27217-4 #### [facility] ([id number]) [address], [address] [place], [place] [address]ABM [Catalytic activity/Vol]14 U/LNormal0-41ProAd[facility] Centerca Mcmanus HospitalComment on above:Performed By: #### TEMITOPE, 77537-0 #### [facility] ([id number]) [address], [address] [place], [place] [address]Gwmmuazig [Mass/Vol]0.6 mg/dLNormal0.3-1.2PUniversity [facility] HospitalComment on above:Performed By: #### TEMITOPE, 02664-0 #### [facility] ([id number]) [address], [address] [place], [place] [address]Mpckdze [Mass/Vol]8.8 mg/dLNormal8.5-10.5PUniversity [facility] HospitalComment on above:Performed By: #### TEMITOPE, 46351-5 #### [facility] ([id number]) [address], [address] [place], [place] [address]Wnefmmco [Moles/Vol]100 mmol/HXklpwl38-228DfdRpfzma [place] HospitalComment on above:Performed By: #### TEMITOPE, 55505-1 #### [facility] ([id number]) [address], [address] [place], [place] [address]UK3 [Moles/Vol]31 mmol/TZowqgs24-70BmtIuajyu [facility] Comment on above:Performed By: #### TEMITOPE, 48458-7 #### [facility] ([id number]) [address], [address] [place], [place] [address]Terkroxfni [Mass/Vol]1.29 mg/dLNormal0.60-1.30ProCo[facility] Mcmanus HospitalComment on above:Result Comment: METHOD TRACEABLE TO IDMS STANDARD Performed By: #### TEMITOPE, 98959-9 #### [facility] ([id number]) [address], [address] [place], [place] [address]DYL/1.73 sq M.predicted among non-blacks MDRD (S/P/Bld) [Vol rate/Area]64 mL/min/{1.73_m2}Normal>59ProAshtabula County Medical CenterComment on above: Result Comment: Reported eGFR is based on the CKD-EPI 2020 equation that does not use a race coefficient.Performed By: #### TEMITOPE, 83616-2 #### [facility] ([id number]) [address], [address] [place], [place] [address]Owlojmn [Mass/Vol]119 mg/vSQuad46-10WeuOlgdheAshtabula County Medical Center Comment on above:Performed By: #### TEMITOPE, 11908-3 #### [facility] ([id number]) [address], [address] [place], [place] [address]Yqeufsvvw [Moles/Vol]4.4 mmol/LNormal3.5-5.0ProAshtabula County Medical CenterComment on above:Performed By: #### TEMITOPE, 89202-5 #### [facility] ([id number]) [address], [address] [place], [place] [address]Cqxwfra [Mass/Vol]7.2 g/dLNormal6.0-8.0[facility] Comment on above:Performed By: #### [place], 41507-4 #### [facility] ([id number]) [address], [address] [place], [place] [address]Ohsieo [Moles/Vol]139 mmol/LOistpj888-782WdeSecpbt Toledo HospitalComment on above:Performed By: #### [place], 92156-6 #### [facility] ([id number]) [address], [address] [place], [place] [address]Wqzj nitrogen [Mass/Vol]21 mg/dLNormal5-23ProAshtabula County Medical CenterComment on above:Performed By: #### [place], 47109-1 #### [facility] ([id number]) [address], [address] [place], [place] [address]Ggezrqpxefpjn metabolic panelon [id number] [Mass/Vol]3.8 g/dL3.2 - 5.3 g/dLProBarnesville Hospital SystemALP [Catalytic activity/Vol]101 U/L39 - 130 U/[facility] SystemALT No additional P-5'-P [Catalytic activity/Vol] 14 U/L0 - 40 U/[facility] SystemAnion gap [Moles/Vol]8 mmol/L5 - 15 mmol/LPrSky Ridge Medical Center Health SystemAST [Catalytic activity/Vol]14 U/L0 - 41 U/L [facility] CenterBilirubin [Mass/Vol]0.6 mg/dL0.3 - 1.2 mg/dLMercy Health St. [facility] SystemCalcium [Mass/Vol]8.8 mg/dL8.5 - 10.5 mg/dLUC Medical Center Chloride [Moles/Vol]100 mmol/L98 - 109 mmol/[facility] SystemCO2 [Moles/Vol]31 mmol/L22 - 32 mmol/[facility] SystemCreatinine [Mass/Vol] 1.29 mg/dL0.60 - 1.30 mg/dLUC Medical CenterComment on above:METHOD TRACEABLE TO [facility] STANDARDeGFR (CKD-EPI)non-race wzzipomlp82- [facility] Memorial HospitalComment on above: Reported eGFR is based on the CKD-EPI 2020 equation that does not use a race coefficient. Glucose [Mass/Vol]119 mg/tPMqdf66 - 99 mg/dLUC Medical CenterPotassium [Moles/Vol]4.4 mmol/L3.5 - 5.0 mmol/[facility] SystemProtein [Mass/Vol] 7.2 g/dL6.0 - 8.0 g/dLAtrium Health Pineville Rehabilitation Hospitalodium [Moles/Vol]139 mmol/L134 - 146 mmol/[facility] SystemUrea nitrogen [Mass/Vol]21 mg/dL5 - 23 mg/dL [facility] Medical CenterHGB A1C (GLYCO-HGB)on [id number] [Mass/Vol]134 mg/dLNoCleveland Clinic Union HospitalComment on above:Performed By: #### [facility], 42319-9 #### [facility] ([id number]) [address], [address] [place], [place] [address]EzG3o (Bld) [Mass fraction]6.3 %High4.4-5.6[facility] Medical CenterComment on above:Result Comment: NOTE ADA Guidelines Result HgbA1c Normal : less than 5.7 % Prediabetes : 5.7 % to 6.4 % Diabetes : > 6.4 % Use with caution in patients with abnormal hemoglobin variants as the half-life of red blood cells and in vivo glycation rates are affected.Performed By: #### [facility], 33858-8 #### [facility] ([id number]) [facility], [address] [place], [place] [address]Soxbv 1995 panelon [id number] [Mass/Vol]145 mg/dLLow 150 - 200 mg/dLUC Medical CenterCholesterol in HDL [Mass/Vol]30 mg/dLLow39 - PINF mg/dLUC Medical CenterComment on above: HDL <40 mg/dL - High Risk HDL > or = 40mg/dL- Desirable HDL >60 mg/dL - Negative Risk Cholesterol in LDL [Mass/Vol]90 mg/dLNINF - 130 mg/dLUC Medical Center Comment on above: LDL <100 mg/dL - Desirable LDL >160 mg/dL - High Risk Cholesterol in VLDL [Mass/Vol]25 mg/dL0 - 30 mg/dLUC Medical Center Cholesterol.total/Cholesterol in HDL [Mass ratio]4.8 {ratio}1.0 - 5.0UC Medical CenterTriglyceride [Mass/Vol]123 mg/dL27 - 150 mg/dLUC Medical CenterCholesterol [Mass/Vol]145 mg/yKJyo771-825GpwCiewvi Philadelphia HospitalComment on above:Performed By: #### [place], 66476-3 #### [facility] ([id number]) [address], [address] [place], [place] [address]Habhvhgjtjh in HDL [Mass/Vol]30 mg/dLLow>39ProMedica Mcmanus HospitalComment on above:Result Comment: HDL <40 mg/dL - High Risk HDL > or = 40mg/dL- Desirable HDL >60 mg/dL - Negative Risk Performed By: #### [place], 95586-1 #### [facility] ([id number]) [address], [address] [place], [place] [address]Hmfgfgevwam in LDL [Mass/Vol]90 mg/dLNormal<130ProWilson Street Hospital HospitalComment on above:Result Comment: LDL <100 mg/dL - Desirable LDL >160 mg/dL - High Risk Performed By: #### [place], 09558-6 #### [facility] ([id number]) [address], [address] [place], [place] [address]Bpmjsclgqtb in VLDL [Mass/Vol]25 mg/dLNormal0-30ProWilson Street Hospital HospitalComment on above:Performed By: #### [place], 79884-9 #### [facility] ([id number]) [address], [address] [place], [place] [address]CNPKXDHUUTS:HDL4.1Csexyb6.0-5.0ProMediMarymount Hospital HospitalComment on above:Performed By: #### [place], 20053-3 #### [facility] ([id number]) [address], [address] [place], [place] [address]Nfqkqipdetwm [Mass/Vol]123 mg/vPGhalbs58-010UgmLrcoreBarney Children's Medical CenterComment on above:Performed By: #### CMP, 13980-7 #### [facility] ([id number]) [address], [address] [place], [place] [address]Ip Panel Informationon [phone] and review of laboratory resultsAbnoExcela Frick HospitalCB AUTO DIFFon [id number] #0.1 103/ulNormal0.0-0.1The [facility] - WestComment on above:Performed By: #### TSH, LIPID, CMP, PSAD, T4 #### [facility] [address] [place] [address] Wanda KarenBasophils/100 WBC (Bld)0.8 %Normal0.2-2.0The [facility] Comment on above:Performed By: #### TSH, LIPID, CMP, PSAD, T4 #### [facility] [address] [place] [address] Wanda KarenEO #0.3 103/ulNormal0.0-0.7The [facility] - WestComment on above: Performed By: #### TSH, LIPID, CMP, PSAD, T4 #### [facility] [address] [id number] Wanda KarenEosinophils/100 WBC (Bld)3.5 %Normal0.9-7.0The [facility] Comment on above:Performed By: #### TSH, LIPID, CMP, PSAD, T4 #### [facility] [address] [id number] Wanda KarenErythrocyte distribution width (RBC) [Ratio]15.2 %Critically high 11.0-15.0The [facility] - WestComment on above:Performed By: #### TSH, LIPID, CMP, PSAD, T4 #### [facility] [address] [place] [address] Wanda KarenHematocrit (Bld) [Volume fraction]42.3 %Ylgply90.0-54.0The [facility] - WestComment on above:Performed By: #### TSH, LIPID, CMP, PSAD, T4 #### [facility] [address] [address] Wanda KarenHemoglobin (Bld) [Mass/Vol]13.3 g/dLCritically low14.0-18.0The [facility] - WestComment on above:Performed By: #### TSH, LIPID, CMP, PSAD, T4 #### [facility] [address] [place] [address] Wanda KarenIG #0.04 10e3/ulCritically high0.00-0.03The [facility] Doctors Hospitalment on above:Performed By: #### TSH, LIPID, CMP, PSAD, T4 #### [facility] [address] [place] [address] Wanda KarenIG %0.4 %Normal0.0-0.5The [facility] Doctors Hospitalment on above: Performed By: #### TSH, LIPID, CMP, PSAD, T4 #### [facility] [address] [place] [address] W[place] KarenLYMPH #2.8 103/ulNormal1.2-3.8The [facility] Doctors Hospitalment on above: Performed By: #### TSH, LIPID, CMP, PSAD, T4 #### [facility] [address] [place] [address] Wanda KarenLymphocytes/100 WBC (Bld)30.2 %Duictm80.5-60.0The [facility] Comment on above:Performed By: #### TSH, LIPID, CMP, PSAD, T4 #### [facility] [address] [place] [address] [place] KarenMANUAL DIFF REQNONormalThe [facility] - WestComment on above: Performed By: #### TSH, LIPID, CMP, PSAD, T4 #### [facility] [address] [place] [address] Wanda KarenMCH (RBC) [Entitic mass]26.4 izMoclpk13.9-34.0The [facility] Comment on above:Performed By: #### TSH, LIPID, CMP, PSAD, T4 #### [facility] [address] [place] [address] Wanda ConradHC (RBC) [Mass/Vol]31.4 g/jAHxsnfn85.9-35.2The [facility] Comment on above:Performed By: #### TSH, LIPID, CMP, PSAD, T4 #### [facility] [address] [place] [address] W[place] ConradSAINT [facility] ([facility]) [Entitic vol]83.9 mVHfdwtm54.0-94.0The [facility] Comment on above:Performed By: #### TSH, LIPID, CMP, PSAD, T4 #### [facility] [address] [place] [address] W[address] KarenMONO #0.6 103/ulNormal0.3-0.8The [facility] - WestComment on above: Performed By: #### TSH, LIPID, CMP, PSAD, T4 #### [facility] [address] [place] [address] Wanda KarenMonocytes/100 WBC (Bld)6.2 %Normal1.7-12.0The [facility] Comment on above:Performed By: #### TSH, LIPID, CMP, PSAD, T4 #### [facility] [address] [place] [address] Wanda AntoineenNEUT #5.4 103/ulNormal1.4-6.5The [facility] - WestComment on above: Performed By: #### TSH, LIPID, CMP, PSAD, T4 #### [facility] [address] [place] [address] Wanda KarenNeutrophils/100 WBC (Bld)58.9 %Xvztti88.0-75.0The [facility] Comment on above:Performed By: #### TSH, LIPID, CMP, PSAD, T4 #### [facility] [address] [place] [address] Wanda KarenPlatelet mean volume (Bld) [Entitic vol]10.5 fLNormal9.5-13.5ThGalion HospitalComment on above:Performed By: #### TSH, LIPID, CMP, PSAD, T4 #### [facility] [address] [place] [address] W[address] AntoineDgjsgMQA447 103/dhViwgnk205-779ImnMercy Health Springfield Regional Medical CenterComment on above: Performed By: #### TSH, LIPID, CMP, PSAD, T4 #### [facility] [address] [place] [address] W[address] KarenRBC5.04 106/ulNormal4.70-6.10The [facility] - WestComment on above: Performed By: #### TSH, LIPID, CMP, PSAD, T4 #### [facility] [address] [place] [address] W[address] KarenWBC9.1 103/ulNormal4.0-11.0[facility] Regional Medical CenterComment on above: Performed By: #### TSH, LIPID, CMP, PSAD, T4 #### [facility] [address] [place] [address] Wanda KarenLIPID PROFILEon [id number]-HDL RATIO NORMSMedina HospitalComment on above:Result Comment: 3.3 - 4.4 LOW RISK 4.4 - 7.1 AVERAGE RISK 7.1 - 11.0 MODERATE RISK >11.0 HIGH RISKPerformed By: #### TSH, LIPID, CMP, PSAD, T4 #### [facility] [address] [place] [address] Wanda KarenCholesterol [Mass/Vol]137 mg/dLNormal<=200[facility] Comment on above:Performed By: #### TSH, LIPID, CMP, PSAD, T4 #### [facility] [address] [place] [address] Wanda KarenCholesterol in HDL [Mass/Vol]31 mg/dLSt. John of God Hospital Comment on above:Performed By: #### TSH, LIPID, CMP, PSAD, T4 #### [facility] [address] [place] [address] Wanda KarenCholesterol in LDL [Mass/Vol]81.8 mg/dLSt. John of God Hospital Comment on above:Performed By: #### TSH, LIPID, CMP, PSAD, T4 #### [facility] [address] [place] [address] Wanda KarenCholesterol.total/Cholesterol in HDL [Mass ratio]4.4 {ratio}Normal The [facility] Hospital - WestComment on above:Performed By: #### TSH, LIPID, CMP, PSAD, T4 #### [facility] [address] [place] [address] Wanda KarenHDL NORMAL> or = 60 mg/dl - LOW CARDIOVASCULAR RISK <40 mg/dl - HIGH CARDIOVASCULAR RISKNoKettering Health Behavioral Medical CenterComment on above:Performed By: #### TSH, LIPID, CMP, PSAD, T4 #### [facility] [address] [place] [address] Wanda KarenLDL CALC NORMALSEE BELOWNoKettering Health Behavioral Medical CenterComment on above: Result Comment: <100 mg/dl OPTIMAL 100 - 129 mg/dl NEAR OR ABOVE OPTIMAL 130 - 159 mg/dl BORDERLINE HIGH 160 - 189 mg/dl HIGH >190 mg/dl VERY HIGHPerformed By: #### TSH, LIPID, CMP, PSAD, T4 #### [facility] [address] [place] [address] Wanda KarenTriglyceride [Mass/Vol]121 mg/dLNormal<=150[facility] Comment on above:Performed By: #### TSH, LIPID, CMP, PSAD, T4 #### [facility] [address] [place] [address] Wanda KarenVLDL CALC24.2 mg/dLSt. John of God HospitalComment on above: Performed By: #### TSH, LIPID, CMP, PSAD, T4 #### [facility] [address] [place] [address] Wanda KarenPROF 14(COMP METB)on [id number] [Mass/Vol]3.3 g/dLCritically low3.5-5.0[facility] Medical CenterComment on above:Performed By: #### TSH, LIPID, CMP, PSAD, T4 #### [facility] [address] [id number] Wanda KarenAlbumin/Globulin [Mass ratio]0.7 {ratio}NormalMercy Health Springfield Regional Medical Center Comment on above:Performed By: #### TSH, LIPID, CMP, PSAD, T4 #### [facility] [address] [address] Wanda KarenALP [Catalytic activity/Vol]113 U/BIxgdph89-217YffMercy Health Springfield Regional Medical Center Comment on above:Performed By: #### TSH, LIPID, CMP, PSAD, T4 #### [facility] [address] [place] [address] Wanda KarenALT [Catalytic activity/Vol]25 U/KLtpryu99-42MyzMercy Health Springfield Regional Medical Center Comment on above:Performed By: #### TSH, LIPID, CMP, PSAD, T4 #### [facility] [address] [place] [address] Wanda KarenAnion gap [Moles/Vol]12.4 mmol/LNormalMercy Health Springfield Regional Medical CenterComment on above:Performed By: #### TSH, LIPID, CMP, PSAD, T4 #### [facility] [address] [place] [address] Wanda KarenAST [Catalytic activity/Vol]16 U/LCritically hnx69-34QprMercy Health Springfield Regional Medical CenterComment on above:Performed By: #### TSH, LIPID, CMP, PSAD, T4 #### [facility] [address] [place], [place] [id number] Wanda KarenBilirubin [Mass/Vol]0.4 mg/dLNormal0.2-1.3TAdena Fayette Medical Center Comment on above:Performed By: #### TSH, LIPID, CMP, PSAD, T4 #### [facility] [address] [place], [place] [id number] Wanda KarenCalcium [Mass/Vol]8.8 mg/dLNormal8.4-10.2[facility] Comment on above:Performed By: #### TSH, LIPID, CMP, PSAD, T4 #### [facility] [address] [place] [address] Wanda KarenChloride [Moles/Vol]102 mmol/TRyfumv91-406Wmd [facility] Comment on above:Performed By: #### TSH, LIPID, CMP, PSAD, T4 #### [facility] [address] [place] [address] Wanda KarenCO2 [Moles/Vol]30.0 mmol/MRioqgq80.0-30.0The [facility] Comment on above:Performed By: #### TSH, LIPID, CMP, PSAD, T4 #### [facility] [address] [place] [address] Wanda KarenCreatinine [Mass/Vol]1.29 mg/dLCritically high0.66-1.25The [facility] - WestComment on above:Performed By: #### TSH, LIPID, CMP, PSAD, T4 #### [facility] [address] [place] [address] W[address] KarenEGFR-AF BRUNEIAN>60Normal>=60[facility] Regional Medical CenterComment on above: Performed By: #### TSH, LIPID, CMP, PSAD, T4 #### [facility] [address] [place] [address] W[address] KarenEGFR-NON AF QOSRVJYP16 mL/min/1.59o7Cowvtasspz low>=60The [facility] - WestComment on above:Performed By: #### TSH, LIPID, CMP, PSAD, T4 #### [facility] [address] [place] [address] Wanda KarenGlobulin (S) [Mass/Vol]4.5 g/dLNormalThe [facility] - WestComment on above:Performed By: #### TSH, LIPID, CMP, PSAD, T4 #### [facility] [address] [place] [address] Wanda KarenGlucose [Mass/Vol]153 mg/dLCritically pojo51-085LdzMercy Health Springfield Regional Medical CenterComment on above:Performed By: #### TSH, LIPID, CMP, PSAD, T4 #### [facility] [address] [place], [place] [address] Wanda KarenPotassium [Moles/Vol]4.4 mmol/LNormal3.4-5.0The [facility] Comment on above:Performed By: #### TSH, LIPID, CMP, PSAD, T4 #### [facility] [address] [place] [address] Wanda KarenProtein [Mass/Vol]7.8 g/dLNormal6.1-8.2The [facility] - WestComment on above:Performed By: #### TSH, LIPID, CMP, PSAD, T4 #### [facility] [address] [place] [address] Wanda KarenSodium [Moles/Vol]140 mmol/UMlwjia406-673Ayb [facility] Comment on above:Performed By: #### TSH, LIPID, CMP, PSAD, T4 #### [facility] [address] [place] [address] Wanda KarenUrea nitrogen [Mass/Vol]28.0 mg/dLCritically high9.0-20.0The [facility] WestComment on above:Performed By: #### TSH, LIPID, CMP, PSAD, T4 #### [facility] [address] [place], [place] [address] Wanda KarenUrea nitrogen/Creatinine [Mass ratio]21.7 mg/mgNormalThe [facility] - WestComment on above:Performed By: #### TSH, LIPID, CMP, PSAD, T4 #### [facility] [address] [place] [address] Wanda SbdtxD0eg [id number] [Mass/Vol]5.90 ug/dLNormal5.53-11.00The [facility] - WestComment on above:Performed By: #### TSH, LIPID, CMP, PSAD, T4 #### [facility] [address] [place] [address] Wanda KarenTSHon 80-83-1178DOJ7.487 uIU/mLNormal0.470-4.680The [facility] - WestComment on above:Performed By: #### TSH, LIPID, CMP, PSAD, T4 #### [facility] [address] [address] Wanda KATHLEEN Regional Medical CenterComment on above:Result Comment: <0.34 UIU/ml HYPERTHYROID 0.34-5.60 UIU/ml EUTHYROID >5.60 UIU/ml HYPOTHYROIDPerformed By: #### TSH, LIPID, CMP, PSAD, T4 #### [facility] [address] [address] Wanda KarenXR LSPINE MIN 4 VIEWSon [id number] LSPINE MIN 4 VIEWSEXAMINATION: XR LSPINE MIN [...] Electronically authenticated by: EFRA HERBERT Date: 2020-04-04 15:[address] [place], [place] [address]ACETAMINOPHENon [id number] [Mass/Vol]ug/mL Critically low10.1-30.0[facility] Medical CenterComment on above:Performed By: #### ACET #### [facility] [address] [place] [address] W[address] KarenAMMONIAon 52-73-1876Hzdfldb (P) [Moles/Vol]7 umol/LCritically low 10-30[facility] Medical CenterComment on above:Performed By: #### AMM #### [facility] [address] [place] [address] Wanda AntoineenCBC AUTO DIFFon [id number] #0.0 103/ulNormal0.0-0.1[facility] Medical CenterComment on above:Performed By: #### TSH, LIPID, CMP, PSAD, T4 #### [facility] [address] [place] [address] Wanda AntoineenBasophils/100 WBC (Bld)0.4 %Normal0.2-2.0The [facility] Comment on above:Performed By: #### TSH, LIPID, CMP, PSAD, T4 #### [facility] [address] [place] [address] Wanda KarenEO #0.2 103/ulNormal0.0-0.7The [facility] - WestComment on above: Performed By: #### TSH, LIPID, CMP, PSAD, T4 #### [facility] [address] [place] [address] Wanda KarenEosinophils/100 WBC (Bld)1.8 %Normal0.9-7.0The [facility] Comment on above:Performed By: #### TSH, LIPID, CMP, PSAD, T4 #### [facility] [address] [place] [address] Wanda KarenErythrocyte distribution width (RBC) [Ratio]14.1 %Zfqpbf17.0-15.0The [facility] - WestComment on above:Performed By: #### TSH, LIPID, CMP, PSAD, T4 #### [facility] [address] [place] [address] Wanda KarenHematocrit (Bld) [Volume fraction]41.2 %Critically low42.0-54.0The [facility] - WestComment on above:Performed By: #### TSH, LIPID, CMP, PSAD, T4 #### [facility] [address] [place] [address] Wanda KarenHemoglobin (Bld) [Mass/Vol]13.3 g/dLCritically low14.0-18.0The [facility] - WestComment on above:Performed By: #### TSH, LIPID, CMP, PSAD, T4 #### [facility] [address] [place] [address] Wanda KarenIG #0.05 10e3/ulCritically high0.00-0.03The [facility] - WestComment on above:Performed By: #### TSH, LIPID, CMP, PSAD, T4 #### [facility] [address] [place] [address] Wanda KarenIG %0.5 %Normal0.0-0.5The [facility] - WestComment on above: Performed By: #### TSH, LIPID, CMP, PSAD, T4 #### [facility] [address] [place] [address] Wanda AntoineenLYMPH #2.3 103/ulNormal1.2-3.8The [facility] - WestComment on above: Performed By: #### TSH, LIPID, CMP, PSAD, T4 #### [facility] [address] [place] [address] Wanda ConradLymphocytes/100 WBC (Bld)21.1 %Bvpqnm88.5-60.0[facility] Comment on above:Performed By: #### TSH, LIPID, CMP, PSAD, T4 #### [facility] [address] [place] [address] Wanda KarenMANUAL DIFF REQNONormalThe [facility] - WestComment on above: Performed By: #### TSH, LIPID, CMP, PSAD, T4 #### [facility] [address] [place] [address] W[address] KarMargaretville Memorial Hospital (RBC) [Entitic mass]26.1 bgZdfhjt46.9-34.0[facility] Comment on above:Performed By: #### TSH, LIPID, CMP, PSAD, T4 #### [facility] [address] [place] [address] W[address] KarShriners Children's [facility] (RBC) [Mass/Vol]32.3 g/iHFofpka26.9-35.2[facility] Comment on above:Performed By: #### TSH, LIPID, CMP, PSAD, T4 #### [facility] [address] [place] [address] W[address] KarHarbor Oaks Hospital (RBC) [Entitic vol]80.9 gWPcmnzm37.0-94.0[facility] Comment on above:Performed By: #### TSH, LIPID, CMP, PSAD, T4 #### [facility] [address] [place] [address] Wanda KarenMONO #0.5 103/ulNormal0.3-0.8The [facility] - WestComment on above: Performed By: #### TSH, LIPID, CMP, PSAD, T4 #### [facility] [address] [place], [place] [address] Wanda KarenMonocytes/100 WBC (Bld)4.8 %Normal1.7-12.0The [facility] Comment on above:Performed By: #### TSH, LIPID, CMP, PSAD, T4 #### [facility] [address] [place] [address] Wanda KarenNEUT #7.8 103/ulCritically high1.4-6.5The [facility] - WestComment on above:Performed By: #### TSH, LIPID, CMP, PSAD, T4 #### [facility] [address] [place] [address] Wanda KarenNeutrophils/100 WBC (Bld)71.4 %Zxamaa25.0-75.0The [facility] Comment on above:Performed By: #### TSH, LIPID, CMP, PSAD, T4 #### [facility] [address] [place] [address] Wanda KarenPlatelet mean volume (Bld) [Entitic vol]9.6 fLNormal9.5-13.5The [facility] - WestComment on above:Performed By: #### TSH, LIPID, CMP, PSAD, T4 #### [facility] [address] [place] [address] Wanda CwamhPNQ688 103/taFjbgaz076-141Abp [facility] WestComment on above: Performed By: #### TSH, LIPID, CMP, PSAD, T4 #### [facility] [address] [place] [address] Wanda KarenRBC5.09 106/ulNormal4.70-6.10The [facility] WestComment on above: Performed By: #### TSH, LIPID, CMP, PSAD, T4 #### [facility] [address] [place] [address] Wanda XmrwaJGT40.8 103/ulNormal4.0-11.0The [facility] WestComment on above: Performed By: #### TSH, LIPID, CMP, PSAD, T4 #### [facility] [address] [id number] Wanda KarenCT HEAD WO CONon [id number] HEAD WO CONCT BRAIN WITHOUT CONTRAST HISTORY: [...] Electronically authenticated by: EFRA MARRERO Date: 2019-11-25 01:49[facility] HospitalETHANOL (BLD ALC)on [id number] NOTENOTE: 80 mg/dl is the legal limit for a blood alcohol levelVan Wert County Hospital on above:Performed By: #### TSH, LIPID, CMP, PSAD, T4 #### [facility] [address] [place] [address] Wanda KarenEthanol [Mass/Vol]205 mg/dLSt. John of God HospitalComment on above:Performed By: #### TSH, LIPID, CMP, PSAD, T4 #### [facility] [address] [address] Wanda KarenPROF 14(COMP METB)on [id number] [Mass/Vol]3.2 g/dLCritically low3.5-5.0[facility] on above:Performed By: #### TSH, LIPID, CMP, PSAD, T4 #### [facility] [address] [place] [address] Wanda KarenAlbumin/Globulin [Mass ratio]0.8 {ratio}NormalMercy Health Springfield [facility] Comment on above:Performed By: #### TSH, LIPID, CMP, PSAD, T4 #### [facility] [address] [place] [address] Wanda KarenALP [Catalytic activity/Vol]111 U/VHptflm86-587AcoMercy Health Springfield Regional Medical Center Comment on above:Performed By: #### TSH, LIPID, CMP, PSAD, T4 #### [facility] [address] [place] [address] Wanda KarenALT [Catalytic activity/Vol]23 U/FTfgocj94-06GfaMercy Health Springfield Regional Medical Center Comment on above:Performed By: #### TSH, LIPID, CMP, PSAD, T4 #### [facility] [address] [place] [address] Wanda KarenAnion gap [Moles/Vol]16.5 mmol/LNormalThe [facility] WestComment on above:Performed By: #### TSH, LIPID, CMP, PSAD, T4 #### [facility] [address] [place] [address] Wanda KarenAST [Catalytic activity/Vol]15 U/LCritically wjp69-51UvxMercy Health Springfield Regional Medical CenterComment on above:Performed By: #### TSH, LIPID, CMP, PSAD, T4 #### [facility] [address] [place] [address] Wanda KarenBilirubin [Mass/Vol]0.3 mg/dLNormal0.2-1.3TAdena Fayette Medical Center Comment on above:Performed By: #### TSH, LIPID, CMP, PSAD, T4 #### [facility] [address] [place] [address] Wanda KarenCalcium [Mass/Vol]8.2 mg/dLCritically low8.4-10.2Mer[facility] Medical CenterComment on above:Performed By: #### TSH, LIPID, CMP, PSAD, T4 #### [facility] [address] [place] [address] Wanda KarenChloride [Moles/Vol]98 mmol/QLsdwlb47-517VivMercy Health Springfield Regional Medical Center Comment on above:Performed By: #### TSH, LIPID, CMP, PSAD, T4 #### [facility] [address] [place] [address] Wanda KarenCO2 [Moles/Vol]23.2 mmol/CQllphl81.0-30.0[facility] Comment on above:Performed By: #### TSH, LIPID, CMP, PSAD, T4 #### [facility] [address] [place] [address] Wanda KarenCreatinine [Mass/Vol]0.91 mg/dLNormal0.66-1.25ThGalion Hospital Comment on above:Performed By: #### TSH, LIPID, CMP, PSAD, T4 #### [facility] [address] [place] [address] Wanda KarenEGFR-AF BRUNEIAN>60Normal>=60Mer[facility] Medical CenterComment on above: Performed By: #### TSH, LIPID, CMP, PSAD, T4 #### [facility] [address] [place] [address] Wanda KarenEGFR-NON AF BRUNEIAN>60Normal>=60[facility] Medical CenterComment on above:Performed By: #### TSH, LIPID, CMP, PSAD, T4 #### [facility] [address] [place] [address] Wanda KarenGlobulin (S) [Mass/Vol]4.1 g/dLNormalThGalion HospitalComment on above:Performed By: #### TSH, LIPID, CMP, PSAD, T4 #### [facility] [address] [place] [address] Wanda KarenGlucose [Mass/Vol]231 mg/dLCritically micx16-298HtpMercy Health Springfield Regional Medical CenterComment on above:Performed By: #### TSH, LIPID, CMP, PSAD, T4 #### [facility] [address] [place] [address] Wanda KarenPotassium [Moles/Vol]3.7 mmol/LNormal3.4-5.0[facility] Comment on above:Performed By: #### TSH, LIPID, CMP, PSAD, T4 #### [facility] [address] [id number] Wanda KarenProtein [Mass/Vol]7.3 g/dLNormal6.1-8.2The [facility] - WestComment on above:Performed By: #### TSH, LIPID, CMP, PSAD, T4 #### [facility] Laboratory [address] [address] Wanda KarenSodium [Moles/Vol]134 mmol/LCritically fpn886-135Pyn [facility] WestComment on above:Performed By: #### TSH, LIPID, CMP, PSAD, T4 #### [facility] [address] [place] [address] Wanda KarenUrea nitrogen [Mass/Vol]22.0 mg/dLCritically high9.0-20.0[facility] on above:Performed By: #### TSH, LIPID, CMP, PSAD, T4 #### [facility] [address] [address] Wanda KarenUrea nitrogen/Creatinine [Mass ratio]24.2 mg/mgNormalThGalion HospitalComhawthorn center on above:Performed By: #### TSH, LIPID, CMP, PSAD, T4 #### [facility] [address] [place] [address] Wanda KarenSALICYLATEon [id number] mg/dLNormal<=20.0[facility] on above:Performed By: #### TSH, LIPID, CMP, PSAD, T4 #### [facility] Laboratory [address] [place], [place] [id number] Wanda KarenXR CHEST 1 Von [id number] CHEST 1 VCHEST RADIOGRAPH: HISTORY: Pain. COMPARISON: None available. TECHNIQUE: AP radiograph of was performed of the chest. FINDINGS: SUPPORT APPARATUS: None. CARDIOMEDIASTINAL SILHOUETTE: Normal. AIRWAYS/LUNGS: Clear. PLEURAL SPACES: No pleural effusion or pneumothorax. BONES AND SOFT TISSUES: No acute abnormality. IMPRESSION: Normal chest radiograph. Electronically authenticated by: EFRA MARRERO Date: 2019-11-25 01:51NoKettering Health Behavioral Medical CenterXR PELVIS 1_2 VIEWSon [id number] PELVIS 1_2 VIEWSXR PELVIS 1_2 VIEWS: HISTORY: [...] Electronically authenticated by: EFRA MARRERO Date: 2019-11-25 01:52NoGuernsey [facility] Hospital AUTO DIFFon [id number] #0.1 103/ulNormal0.0-0.1[facility] Medical CenterComment on above:Performed By: #### CBC #### [facility] [address] [place] [address] Wanda KarenBasophils/100 WBC (Bld)0.6 %Normal0.2-2.0[facility] Comment on above:Performed By: #### CBC #### [facility] [address] [address] Wanda KarenEO #0.2 103/ulNormal0.0-0.7The [facility] - WestComment on above: Performed By: #### CBC #### [facility] [address] [place] [address] Wanda KarenEosinophils/100 WBC (Bld)1.7 %Normal0.9-7.0[facility] Comment on above:Performed By: #### CBC #### [facility] [address] [address] Wanda KarenErythrocyte distribution width (RBC) [Ratio]14.4 %Qfldmh20.0-15.0The [facility] - WestComment on above:Performed By: #### CBC #### [facility] [address] [place] [address] Wanda KarenHematocrit (Bld) [Volume fraction]44.2 %Glsuxx78.0-54.0[facility] Medical CenterComment on above:Performed By: #### CBC #### [facility] [address] [place], [place] [address] Wanda KarenHemoglobin (Bld) [Mass/Vol]13.9 g/dLCritically low14.0-18.0The [facility] WestComment on above:Performed By: #### CBC #### [facility] [address] [place] [address] Wanda AntoineenIG #0.04 10e3/ulCritically high0.00-0.03The [facility] - WestComment on above:Performed By: #### CBC #### [facility] [address] [place] [address] Wanda AntoineenIG %0.4 %Normal0.0-0.5The [facility] - WestComment on above: Performed By: #### CBC #### [facility] [address] [place] [address] Wanda KarenLYMPH #2.8 103/ulNormal1.2-3.8The [facility] - WestComment on above: Performed By: #### CBC #### [facility] [address] [place] [address] Wanda KarenLymphocytes/100 WBC (Bld)28.2 %Hjkbma45.5-60.0The [facility] Comment on above:Performed By: #### CBC #### [facility] [address] [place] [address] Wanda KarenMANUAL DIFF REQNONormalThe [facility] Hospital - WestComment on above: Performed By: #### CBC #### [facility] [address] [place] [address] Wanda KarenMCH (RBC) [Entitic mass]25.9 ecYdozig40.9-34.0The [facility] Comment on above:Performed By: #### CBC #### [facility] [address] [place] [address] Wanda KarenMCHC (RBC) [Mass/Vol]31.4 g/oUEddzpo87.9-35.2The [facility] Comment on above:Performed By: #### CBC #### [facility] [address] [place] [address] Wanda KarenMCV (RBC) [Entitic vol]82.3 dWUfiwgz23.0-94.0The [facility] Comment on above:Performed By: #### CBC #### [facility] [address] [place] [address] Wanda AntoineenMONO #0.5 103/ulNormal0.3-0.8The [facility] HospitalComment on above: Performed By: #### CBC #### [facility] [address] [place] [address] Wanda KarenMonocytes/100 WBC (Bld)5.2 %Normal1.7-12.0The [facility] Comment on above:Performed By: #### CBC #### [facility] [address] [place] [address] Wanda AntoineenNEUT #6.4 103/ulNormal1.4-6.5The [facility] - WestComment on above: Performed By: #### CBC #### [facility] [address] [place] [address] Wanda KarenNeutrophils/100 WBC (Bld)63.9 %Zragws93.0-75.0The [facility] Comment on above:Performed By: #### CBC #### [facility] [address] [place] [address] Wanda KarenPlatelet mean volume (Bld) [Entitic vol]10.5 fLNormal9.5-13.5The [facility] - WestComment on above:Performed By: #### CBC #### [facility] [address] [place] [address] Wanda SzxyuHZW891 103/ftQuunjz716-653Soi [facility] - WestComment on above: Performed By: #### CBC #### [facility] [address] [place] [address] Wanda KarenRBC5.37 106/ulNormal4.70-6.10The [facility] - WestComment on above: Performed By: #### CBC #### [facility] [address] [place] [address] Wanda YctqgAUZ49.0 103/ulNormal4.0-11.0[facility] Medical CenterComment on above: Performed By: #### CBC #### [facility] [address] [address] Wanda KarenGLYCOHEMOGLOBIN A1Con [id number] [Mass/Vol]163 mg/dLSt. John of God HospitalComment on above:Performed By: #### TSH, LIPID, CMP, PSAD, T4 #### [facility] Laboratory [address] [place] [address] Wanda KrgdxMfW7t (Bld) [Mass fraction]7.3 %Critically high<=6.0[facility] Medical CenterComment on above:Performed By: #### TSH, LIPID, CMP, PSAD, T4 #### [facility] Laboratory [address] [place] [address] Wanda KarenLIPID PROFILEon [id number]-HDL RATIO NORMSEE Regional Medical CenterComment on above:Result Comment: 3.3 - 4.4 LOW RISK 4.4 - 7.1 AVERAGE RISK 7.1 - 11.0 MODERATE RISK >11.0 HIGH RISKPerformed By: #### TSH, LIPID, CMP, PSAD, T4 #### [facility] [address] [place] [address] Wanda KarenCholesterol [Mass/Vol]130 mg/dLNormal<=200[facility] Comment on above:Performed By: #### TSH, LIPID, CMP, PSAD, T4 #### [facility] [address] [place] [address] Wanda KarenCholesterol in HDL [Mass/Vol]32 mg/dLSt. John of God Hospital Comment on above:Performed By: #### TSH, LIPID, CMP, PSAD, T4 #### [facility] [address] [place] [address] Wanda KarenCholesterol in LDL [Mass/Vol]76.6 mg/dLSt. John of God Hospital Comment on above:Performed By: #### TSH, LIPID, CMP, PSAD, T4 #### [facility] [address] [place] [address] Wanda KarenCholesterol.total/Cholesterol in HDL [Mass ratio]4.1 {ratio}Normal The [facility] Hospital - WestComment on above:Performed By: #### TSH, LIPID, CMP, PSAD, T4 #### [facility] [address] [place] [address] Wanda KarenHDL NORMAL> or = 60 mg/dl - LOW CARDIOVASCULAR RISK <40 mg/dl - HIGH CARDIOVASCULAR RISKSt. John of God HospitalComment on above:Performed By: #### TSH, LIPID, CMP, PSAD, T4 #### [facility] [address] [place] [address] Wanda KarenLDL CALC NORMALSEE BELOWSt. John of God HospitalComment on above: Result Comment: <100 mg/dl OPTIMAL 100 - 129 mg/dl NEAR OR ABOVE OPTIMAL 130 - 159 mg/dl BORDERLINE HIGH 160 - 189 mg/dl HIGH >190 mg/dl VERY HIGHPerformed By: #### TSH, LIPID, CMP, PSAD, T4 #### [facility] [address] [place] [address] Wanda KarenTriglyceride [Mass/Vol]107 mg/dLNormal<=150[facility] Comment on above:Performed By: #### TSH, LIPID, CMP, PSAD, T4 #### [facility] [address] [place] [address] Wanda KarenVLDL CALC21.4 mg/dLNoKettering Health Behavioral Medical CenterComment on above: Performed By: #### TSH, LIPID, CMP, PSAD, T4 #### [facility] [address] [place] [address] Wanda KarenMICROALBUMIN, RAND URon [id number]<1.3Normal<=30.0The [facility] - WestComment on above:Performed By: #### MALBR #### [facility] [address] [place] [address] Wanda KarenmALBHPLEASE NOTE: NORMAL RANGE CHANGE, [facility]. NormalThe [facility] Hospital - WestComment on above:Performed By: #### MALBR #### [facility] [address] [place] [address] Wanda KarenPROF 14(COMP METB)on [id number] [Mass/Vol]3.5 g/dLNormal 3.5-5.0[facility] Medical CenterComment on above:Performed By: #### TSH, LIPID, CMP, PSAD, T4 #### [facility] [address] [address] Wanda KarenAlbumin/Globulin [Mass ratio]0.8 {ratio}NormalMercy Health Springfield Regional Medical Center Comment on above:Performed By: #### TSH, LIPID, CMP, PSAD, T4 #### [facility] [address] [place] [address] Wanda KarenALP [Catalytic activity/Vol]103 U/BOcgako92-630WqzMercy Health Springfield [facility] Medical Center Comment on above:Performed By: #### TSH, LIPID, CMP, PSAD, T4 #### [facility] [address] [place] [address] Wanda KarenALT [Catalytic activity/Vol]21 U/CZhbwdw81-66MfcMercy Health Springfield Regional Medical Center Comment on above:Performed By: #### TSH, LIPID, CMP, PSAD, T4 #### [facility] [address] [address] Wanda KarenAnion gap [Moles/Vol]13.9 mmol/LNormalMercy Health Springfield Regional Medical CenterComment on above:Performed By: #### TSH, LIPID, CMP, PSAD, T4 #### [facility] [address] [address] Wanda KarenAST [Catalytic activity/Vol]18 U/KZdtnqz42-71OwzMercy Health Springfield Regional Medical Center Comment on above:Performed By: #### TSH, LIPID, CMP, PSAD, T4 #### [facility] [address] [address] Wanda KarenBilirubin [Mass/Vol]0.5 mg/dLNormal0.2-1.3TAdena Fayette Medical Center Comment on above:Performed By: #### TSH, LIPID, CMP, PSAD, T4 #### [facility] [address] [address] Wanda KarenCalcium [Mass/Vol]8.9 mg/dLNormal8.4-10.2[facility] Comment on above:Performed By: #### TSH, LIPID, CMP, PSAD, T4 #### [facility] [address] [address] Wanda KarenChloride [Moles/Vol]100 mmol/DZfxwrk41-883MvvMercy Health Springfield Regional Medical Center Comment on above:Performed By: #### TSH, LIPID, CMP, PSAD, T4 #### [facility] [address] [place] [address] Wanda KarenCO2 [Moles/Vol]28.2 mmol/SXsfbrs64.0-30.0The [facility] Comment on above:Performed By: #### TSH, LIPID, CMP, PSAD, T4 #### [facility] [address] [place] [address] Wanda KarenCreatinine [Mass/Vol]1.08 mg/dLNormal0.66-1.25The [facility] Comment on above:Performed By: #### TSH, LIPID, CMP, PSAD, T4 #### [facility] [address] [place] [address] Wanda KarenEGFR-AF BRUNEIAN>60Normal>=60The [facility] Hospital - WestComment on above: Performed By: #### TSH, LIPID, CMP, PSAD, T4 #### [facility] [address] [place] [address] Wanda KarenEGFR-NON AF BRUNEIAN>60Normal>=60The [facility] - WestComment on above:Performed By: #### TSH, LIPID, CMP, PSAD, T4 #### [facility] [address] [place] [address] Wanda KarenGlobulin (S) [Mass/Vol]4.6 g/dLNormalThe [facility] WestComment on above:Performed By: #### TSH, LIPID, CMP, PSAD, T4 #### [facility] [address] [place] [address] Wanda KarenGlucose [Mass/Vol]129 mg/dLCritically xuwg10-370Bmn [facility] WestComment on above:Performed By: #### TSH, LIPID, CMP, PSAD, T4 #### [facility] Laboratory [address] [address] Wanda KarenPotassium [Moles/Vol]4.1 mmol/LNormal3.4-5.0The [facility] Comment on above:Performed By: #### TSH, LIPID, CMP, PSAD, T4 #### [facility] [address] [place] [address] Wanda KarenProtein [Mass/Vol]8.1 g/dLNormal6.1-8.2The [facility] - WestComment on above:Performed By: #### TSH, LIPID, CMP, PSAD, T4 #### [facility] [address] [place] [address] Wanda KarenSodium [Moles/Vol]138 mmol/CKrpjqw267-424Dig [facility] Comment on above:Performed By: #### TSH, LIPID, CMP, PSAD, T4 #### [facility] [address] [address] Wanda KarenUrea nitrogen [Mass/Vol]34.0 mg/dLCritically high9.0-20.0The [facility] - WestComment on above:Performed By: #### TSH, LIPID, CMP, PSAD, T4 #### [facility] Laboratory [address] [place], [place] [address] Wanda KarenUrea nitrogen/Creatinine [Mass ratio]31.5 mg/mgNormalThe [facility] WestComment on above:Performed By: #### TSH, LIPID, CMP, PSAD, T4 #### [facility] [address] [place], [place] [address] Wanda Anamaria Vital Signs Date TimeVital SignValuePerforming FoeoyuxgkFdoiivwh59-18-2626 13:48-0400Body eghteo529.6 cmJomagdalene Twyxt Work Phone: [facility]04-07-2025 13:48-0400Body mass index (BMI) [Ratio]66.3 kg/m2Jo Siving Egil Kvalebergmercyone [facility] DO Work Phone: [facility]04-07-2025 13:48-0400Body qcjtjiriyol48.5 [degF]Merritt Thacker DO Work Phone: [facility] HospitalCapLinked Gsyehy73-76-4629 13:48-0400Body ywxicm098.34 kgMerritt Thacker DO Work Phone: [facility] HospitalSnackFeed04-07-2025 13:48-0400Diastolic blood lbawceuq49 mm[Hg]Merritt Thacker DO Work Phone: [facility] Ullink [facility] Gerber HospitalComment on above:bp cuff not big edfjkj42-05-2134 13:48-0400Heart rate92 /minMerritt Thacker DO Work Phone: [facility] [employer] Cdxbpz40-03-5984 13:48-0400 Respiratory rate20 /minMerritt Thacker DO Work Phone: [facility] [employer] Jukpni87-83-0777 13:48-1648VhS9% (BldA) [Mass fraction]91 %Merritt Thacker DO Work Phone: [facility] HospitalSnackFeed04-07-2025 13:48-0400Systolic blood mm[Hg]Merritt Thacker DO Work Phone: [facility] [facility] Ger[facility] HospitalComment on above:bp cuff not big sftcdo43-64-1155 13:20-0500Diastolic blood iftdbrom30 mm[Hg]Merritt Thacker DO Work Phone: [facility] [employer] Lvmbhd01-62-1996 13:20-0500Systolic blood etebreif974 mm[Hg]Merritt Thacker DO Work Phone: [facility] HospitalSnackFeed01-07-2025 12:57-0500Body .6 cmJomagdalene Thacker DO Work Phone: [facility] HospitalCapLinked Hrucdt36-88-8848 12:57-0500Body mass index (BMI) [Ratio]68.44 kg/m2Merritt Thacker DO Work Phone: [facility] HospitalSnackFeed01-07-2025 12:57-0500Body nyamwejpxmg54.59 [degF]Merritt Thacker DO Work Phone: [facility] HospitalCapLinked Blqxne18-86-2207 12:57-0500Body gyepww714.32 kgMerritt Thacker DO Work Phone: [facility] HospitalCapLinked Jvifih18-76-1234 12:57-0500Heart rate 78 /minMerritt Thacker DO Work Phone: [facility] [employer] Jenorb96-36-9579 12:57-0500 Respiratory rate20 /minMerritt Thacker DO Work Phone: [facility] [employer] Diraim88-20-6730 12:57-5110RqQ4% (BldA) [Mass fraction]97 %Merritt Thacker DO Work Phone: [facility] [employer] Vkampt89-38-5362 15:01-0400Body .6 cmMerritt Thacker DO Work Phone: [facility] [employer] Ppzksx86-15-3380 15:01-0400Body mass index (BMI) [Ratio]63.75 kg/m2Merritt Thacker DO Work Phone: [facility] [facility] Gmdkux06-17-4405 15:01-0400Body .59 [degF]Merritt Thacker DO Work Phone: [facility] HospitalCapLinked Idonqt63-58-7188 15:01-0400Body .17 kgMerritt Thacker DO Work Phone: [facility] HospitalCapLinked Ffkude65-81-7409 15:01-0400Diastolic blood mm[Hg]Merritt Thacker DO Work Phone: [facility] Hospital[facility] Xhwdmn77-02-7973 15:01-0400Heart rate 88 /minMerritt Thacker DO Work Phone: [facility] HospitalCapLinked Tokaqi21-26-0670 15:01-7503ZdD3% (BldA) [Mass fraction]95 %Merritt Thacker DO Work Phone: [facility] Hospital[facility] Siyxkc65-82-6367 15:01-0400Systolic blood pncliftv400 mm[Hg]Merritt Thacker DO Work Phone: [facility]08-19-2024 16:34-0400Body .6 cmMerritt Thacker DO Work Phone: [facility] [place] Xtbcfj11-07-7138 16:34-0400Body mass index (BMI) [Ratio]67.39 kg/m2Merritt Thacker DO Work Phone: [facility] Hwrdqj51-03-0832 16:34-0400Body .11 [degF]Merritt Thacker DO Work Phone: [facility]08-19-2024 16:34-0400Body uwfywn773.38 kgJomagdalene Thacker DO Work Phone: [facility]08-19-2024 16:34-0400Diastolic blood losivnlx78 mm[Hg]Merritt Thacker DO Work Phone: [facility] Dcgnnu70-16-6119 16:34-0400Heart rate 71 /minJomagdalene Thacker DO Work Phone: [facility] [place] Zecaqg03-85-5985 16:34-7345MnY5% (BldA) [Mass fraction]98 %Merritt Thacker DO Work Phone: [facility] Wesmvd42-21-6484 16:34-0400Systolic blood ipmdzcqk889 mm[Hg]Merritt Thacker DO Work Phone: [facility] Ydcxjt44-59-9430 14:38-0400Body reqemr196.6 cmMerritt Thacker DO Work Phone: [facility]08-05-2024 14:38-0400Body qbsijqoitua00.49 [degF]Merritt Thacker DO Work Phone: [facility]08-05-2024 14:38-0400Diastolic blood risuptor68 mm[Hg]Merritt Thacker DO Work Phone: [facility]08-05-2024 14:38-0400Heart rate 75 /minMerritt Thacker DO Work Phone: [facility] [place] Zadwov00-39-2028 14:38-0400 Respiratory rate20 /minMerritt Thacker DO Work Phone: [facility]08-05-2024 14:38-5922BvP3% (BldA) [Mass fraction]94 %Merritt Thacker DO Work Phone: [facility]08-05-2024 14:38-0400Systolic blood jxgmqolu981 mm[Hg]Merritt Thacker DO Work Phone: [facility]04-10-2024 13:51-0400Diastolic blood snsixyba06 mm[Hg]Merritt Thacker DO Work Phone: [facility] [place] Ohvjrr01-82-9687 13:51-0400Systolic blood ewokparp455 mm[Hg]Merritt Thacker DO Work Phone: [facility]04-10-2024 13:09-0400Body wlotth262.6 cmJomagdalene Thacker DO Work Phone: [facility] [place] Yrvtub07-48-7275 13:09-0400Body mass index (BMI) [Ratio]68.86 kg/m2Merritt Thacker DO Work Phone: [facility] [place] Ceumdx55-95-3395 13:09-0400Body mtevuxoscki15.2 [degF]Merritt Thacker DO Work Phone: [facility]04-10-2024 13:09-0400Body vdypmo743.5 kgMerritt Thacker DO Work Phone: [facility] Fthmwq89-02-9507 13:09-0400Heart rate 88 /minMerritt Thacker DO Work Phone: [facility] Ztmbkv40-81-8001 13:09-0400 Respiratory rate20 /Jillian Thacker DO Work Phone: [facility] HospitalCapLinked Omaupm38-60-0957 13:09-7186EpW9% (BldA) [Mass fraction]98 %Merritt Thacker DO Work Phone: [facility] Encounters Encounter DateEncounter TypeCare ProviderFacilityStart: 02-15-2025 End: 26-51-7004Oemfwruys encounterNoemi Caraballo [facility]ITALPro[facility] Internal Medicine - Family MedicineComment on above:Colon Cancer ScreeningStart: 01-21-2025 End: 68-60-9374lxkplingwpRDCWBarnesville Hospitaltart: 12-03-2024 End: 88-41-9883AdxvqrTozc Albertina Thacker DO Work Phone: [facility] - Family MedicineComment on above:Type 2 diabetes mellitus without complication, without long-term current use of insulin ([facility]); Non-seasonal allergic rhinitis, unspecified triggerStart: 09-03-2024 End: 01-21-8778drnhesvghkQYKHOhioHealth Grove City Methodist Hospitaltart: 09-03-2024 End: 99-09-6519Yihyow outpatient visit 25 Artis Thacker DO Work Phone: [facility] - Family MedicineComment on above:Type 2 diabetes mellitus without complication, without long-term current use of insulin ([facility]) (Primary Dx); Special screening for malignant neoplasm of colon; Chronic combined systolic and diastolic CHF (congestive heart failure) ([facility]); Non-seasonal allergic rhinitis, unspecified trigger; Primary osteoarthritis of right shoulderStart: 09-03-2024 End: 34-16-5390wnnhmpmqkrRFYVAscension St Mary's Hospital PPGStart: 08-25-2024 End: 17-73-2436SwczeeRwrw Albertina Thacker DO Work Phone: [facility] Medicine - Family MedicineComment on above:Type 2 diabetes mellitus without complication, without long-term current use of insulin ([facility])Start: 06-07-2024 End: 52-88-4171Xttkjxwak encounterJomagdalene Thacker DO Work Phone: [facility] - [facility]ertart: 06-05-2024 End: 23-40-6353ylpdzctajzKZCSOhioHealth Grove City Methodist Hospitaltart: 06-05-2024 End: 97-97-9376Rfxiqt outpatient visit 25 minutesGriseldamagdalene Thacker DO Work Phone: [facility] Internal [facility] - [facility] MidtownComment on above:Type 2 diabetes mellitus without complication, without long-term current use of insulin ([facility]) (Primary Dx); Chronic combined systolic and diastolic CHF (congestive heart failure) ([facility]); Obesity, morbid ([facility]); Stage 3b chronic kidney disease ([facility]); Encounter for screening for malignant neoplasm of prostate; Encounter for immunization; Primary osteoarthritis of right shoulder; Non-seasonal allergic rhinitis, unspecified triggerStart: 06-05-2024 End: 36-68-9694ncqxdeqrqyCTVCWellstar [facility] Ambulatory PPGStart: 03-01-2024 End: 64-01-0296Sqmyujljw encounterMaria B Shantelleing DIRECTOR EMERGENCY SERVICES Work Phone: [facility] SWS ORTHOComment on above:ReferralStart: 02-29-2024 End: 11-30-7490Ndlxoc flowsheetMaria B Apling DIRECTOR EMERGENCY SERVICES Work Phone: [facility] ORTHOPAEDICSStart: 02-29-2024 End: 56-57-5542Vraipn flowsheetMaria B Apling DIRECTOR EMERGENCY SERVICES Work Phone: [facility] ORTHOPAEDICSStart: 02-29-2024 End: 74-02-5426Xdodiv outpatient visit 25 minutesMaria B Apling DIRECTOR EMERGENCY SERVICES Work Phone: [facility] CI ORTHOPAEDICSComment on above:Right shoulder pain, unspecified chronicity (Primary Dx); Chronic pain of both knees; Chronic pain of both ankles; Impingement of right shoulderStart: 02-29-2024 End: 59-78-3553pgsrylxdyiPVZJB B APLINGNot AvailableStart: 02-21-2024 End: 53-89-6690dnmlirvcmsYKDYWellstar [facility] Ambulatory PPGStart: 02-21-2024 End: 98-90-6433Czysgw outpatient visit 25 minutesJomagdalene Thacker DO Work Phone: [facility] - Family MedicineComment on above:Type 2 diabetes mellitus without complication, without long-term current use of insulin ([facility]) (Primary Dx); Chronic combined systolic and diastolic CHF (congestive heart failure) ([facility]); Primary osteoarthritis of right shoulder; Chronic right shoulder pain; Primary osteoarthritis of both anklesStart: 01-17-2024 End: 11-33-2885kpdmgcajcpEDPPBellevue Hospitaltart: 01-16-2024 End: 65-86-3039xaawxbvumhZQXUWayne County Hospital and Clinic System HospitalStart: 01-16-2024 End: 87-75-5229oqesfiaehuCNUFAscension St Mary's Hospital PPGStart: 01-16-2024 End: 56-39-1956Hvthkembsjqn care manage srvc 14 day dischargeGriseldamagdalene Thacker DO Work Phone: [facility] Internal [facility] - Family [facility] HospitalComment on above:Chronic combined systolic and diastolic CHF (congestive heart failure) ([facility]) (Primary Dx); Type 2 diabetes mellitus without complication, without long-term current use of insulin ([facility]); Primary osteoarthritis of right shoulder; Stage 3b chronic kidney disease ([facility]); Hyperlipidemia, unspecified hyperlipidemia typeStart: 01-09-2024 End: 26-85-3341Kljblyvxe encounterMisty Domingo [facility]ITALProMedica [facility] Internal Medicine - Family [facility] Centertart: 01-02-2024 End: 73-71-7645yhjvthkwgpQBCDWellstar [facility] Ambulatory PPGStart: 01-02-2024 End: 86-97-8029Hbfteqhooush care manage srvc 14 day dischargeGriseldamagdalene Thacker DO Work Phone: [facility] Internal Medicine - Family MedicineComment on above:Acute on chronic systolic congestive heart failure ([facility]) (Primary Dx); Essential hypertension; Stage 3b chronic kidney disease ([facility]); Type 2 diabetes mellitus without complication, without long-term current use of insulin ([facility]); Obesity, morbid ([facility])Start: 12-26-2023 End: 06-31-8122Mwpbudcwa encounterMerritt Thacker DO Work Phone: [facility] Internal Medicine - Family MedicineStart: 12-14-2023 End: 41-02-7034Bindvbped encounterSelma Quijano [facility] Internal Medicine - Family MedicineStart: 11-18-2023 End: 21-70-4205CdegmpAdpro Postell [facility] Internal Medicine - Family MedicineComment on above:Type 2 diabetes mellitus without complication, without long-term current use of insulin ([facility])Start: 09-15-2023 End: 33-02-7822Bunqgeheh encounterNitza Oneal [facility] Internal Medicine - [facility] MedicineStart: 09-07-2023 End: 59-01-0623ygkfvszpihOTCK [facility] HospitalStart: 09-07-2023 End: 62-62-5623Srapvj outpatient visit 25 minutesMerritt Thacker DO Work Phone: [facility] Internal Medicine - Family MedicineComment on above:Type 2 diabetes mellitus without complication, without long-term current use of insulin ([facility]) (Primary Dx); Stage 3b chronic kidney disease ([facility]); Essential hypertension; Class 3 severe obesity due to excess calories with serious comorbidity and body mass index (BMI) of60.0 to 69.9 in adult ([facility]); Immunization dueStart: 09-07-2023 End: 54-68-7543cklyxercauKRFQAscension St Mary's Hospital PPGStart: 26-82-4531Rwtgwchtl encounterKaveh Mayer DO Work Phone: [facility] ORTHOPAEDICSComment on above:Refund Checks Start: 04-11-2023 End: 36-03-2760cglqqtowamRVAIK B APLINGNot AvailableStart: 07-13-2021 End: 38-37-7336dfwloroopeBtquldw HouseFacility:[facility] Start: 88-30-0268Qpfasgrxy for general adult medical examination without abnormal findingsDR DEVANG BIRCHFulton County Health Center HospitalStart: 10-01-2020 End: 10-31-6461pponrsniqlVM DEVANG HOUSEFacility:L2Viisw: 10-01-2020 End: 36-66-8053Uytnjzfxc for general adult medical examination without abnormal findingsDR DEVANG HOUSEFacility:S7Fscna: 04-04-2020 End: 14-86-4242qcnyhhqzzmKH DEVANG HOUSEFacility:A1Jfeju: 11-25-2019 End: 25-15-3725lbwvbfninzQL DEVANG HOUSEFacility:F7Xkgsn: 10-18-2019 End: 21-48-9689vrheepxlnnNX DEVANG HOUSEFacility:H1 Procedures DateProcedureProcedure DetailPerforming ClinicianStart: 34-93-6614Pslyb depression screening assessmentJomagdalene Thacker DO Work Phone: Start: 62-00-7263Cmuverwzcbpxkz aspir&/inj major jt/bursa w/o usMaria B Apling DIRECTOR EMERGENCY SERVICES Work Phone: Start: 57-54-7974Sefbn depression screening assessment Merritt Thacker DO Work Phone: Start: 14-22-6652Oxzexmyrgaup [Mass/volume] in Urine by Test stripGriseldamagdalene Dents DO Work Phone: Start: 45-47-4662Uttlgm-up visitFollow-upMERRITT Eng IKRSTIE Start: 37-83-0926Ppunv depression screening assessmentGriseldamagdalene Dents DO Work Phone: Start: 54-54-3151Lxmfb depression screening assessment Merritt Thacker DO Work Phone: Start: 13-48-8849Dbrec depression screening assessment Merritt Thacker DO Work Phone: Start: 93-69-1869Zelljgbwfuvp [Mass/volume] in Urine by Test Luther Lynneyosibharti DO Work Phone: Start: 49-67-1868ETR screeningDR DEVANG HOUSEComment on above:Performed By: #### TSH, LIPID, CMP, PSAD, T4 #### [facility] [address] [place] [address] Wanda Conrad Plan of Treatment DateCare ActivityDetailAuthorStart: 59-20-7062APfM,Tdap and Td Vaccines (2 - Td or Tdap)DTaP,Tdap and Td Vaccines (2 - Td or Tdap)[facility] SystemStart: 56-82-3364Fdoke BMI ScreeningAdult BMI ScreeningMercy Health St[facility] SystemStart: 62-99-2305Atzahvv ScreeningTobacco ScreeningMercy Health St. [facility] SystemStart: 64-98-3850Funjn BMI ScreeningAdult BMI ScreeningMercy Health St. [facility] SystemStart: 22-70-3482Fmqkattfmp ScreeningDepression ScreeningMercy Health St. [facility] SystemStart: 28-04-8194Nywmic Use: DiabeticStatin Use: DiabeticMercy Health St. [facility] SystemStart: 46-95-8753Ckzwcoh ScreeningTobacco ScreeningMercy Health St. [facility] SystemStart: 25-06-7629Ewucw BMI ScreeningAdult BMI ScreeningMercy Health St. [facility] SystemStart: 01-74-9397Ehpyevrwts ScreeningDepression ScreeningMercy Health St. [facility] SystemStart: 48-78-7574Qldjwlw ScreeningTobacco ScreeningMercy Health St. [facility] SystemStart: 80-34-5683Rmfbrvdpx vaccinationInfluenza VaccineMercy Health St. [facility] SystemStart: 78-55-6793Eouxl screening for proteinUrine MicroalbuminMercy Health St. [facility] Start: 29-08-1386Dzozj BMI ScreeningAdult BMI ScreeningMercy Health St. [facility] Start: 09-47-4381Tymetctzng ScreeningDepression ScreeningMercy Health St. [facility] Start: 51-25-4494Rteqkng ScreeningTobacco ScreeningMercy Health St. [facility] SystemStart: 01-03-2025 End: 32-53-2330Bhbegeo encounter uyiovnghw58/07/2025 1:00 PM EDT Office Visit [facility] [address] [place] [address] Merritt Thacker, DO [address] [id number] [facility] MedicineStart: 97-55-2977Kzzqbhqztr Screening Depression ScreeningProBarnesville Hospital SystemStart: 42-73-8648Ptektfu Screening Tobacco ScreeningProBarnesville Hospital SystemStart: 66-78-5341Xvoxb BMI Screening Adult BMI ScreeningProBarnesville Hospital SystemStart: 03-82-6090Kphmotgymg Screening Depression ScreeningProBarnesville Hospital SystemStart: 35-50-1883Bqzebcp Screening Tobacco ScreeningProKindred Hospital Daytontart: 09-03-2024 End: 93-01-8287Zfmmwhl encounter qyvnuzlqn97/07/2025 1:30 PM EDT Office Visit [facility] [address] [place] [address] eMrritt Thacker, DO [address], [id number] [facility] MedicineStart: 17-89-2031Jfxlix Use: DiabeticStatin Use: DiabeticProKindred Hospital Daytontart: 06-05-2024 End: 40-60-8850Nuzwgqe encounter /07/2025 1:00 PM EST Office Visit [facility] Medicine [address] [place] [address] Merritt Thacker, DO [address], [id number] [facility] MedicineStart: 02-29-2024 End: 05-88-1110Vhdqyla encounter /02/2024 12:45 PM EDT Office Visit [facility] [address] [place] [id number] Inna Jefferson, DIRECTOR EMERGENCY SERVICES [address] [place] [address] Right shoulder pain, unspecified chronicity (Primary Dx)[facility] CI ORTHOPAEDICSComment on above:Right shoulder pain, unspecified chronicity (Primary Dx)Start: 02-21-2024 End: 06-47-6565Ztzrwvv encounter wbbnatzqe05/24/2024 3:00 PM EDT [facility] [address] [place] [address] Merritt Thacker, DO [address], [id number] [facility] - [facility] MedicineStart: 74-20-0018Hzosxptkt vaccination Influenza VaccineProBarnesville Hospital SystemStart: 01-16-2024 End: 91-62-1684Ijqevsf encounter /19/2024 4:15 PM EDT [facility] [address] [place] [address] Merritt Thacker, DO [address] [facility], [id number] [facility] MedicineStart: 05-30-5160Osogcnzm foot examination Diabetic Foot ExamProBarnesville Hospital SystemStart: 15-63-0016Ykslc screening for proteinUrine MicroalbuminProBarnesville Hospital SystemStart: 61-48-4252Devjdbaugbgeqd of varicella zoster vaccineZoster (Shingles) Vaccine (1 of 2)[facility] SystemStart: 85-35-7998Zbweb BMI Follow Up PlanAdult BMI Follow Up PlanProBarnesville Hospital SystemStart: 00-36-4047Vhyfgfws screeningDiabetic Ophthalmology Exam [facility] End: 21-41-6615HQV W Auto Differential panel - BloodCBC auto differential Lab Routine Stage 3b chronic kidney disease (CMS-HCC) 1 Occurrences starting 0 01/16/2024 until 01/15/2025[facility] CenterSocial Reality SystemComment on above:1 Occurrences starting 01/16/2024 until 01/15/2025ologuard Non-ProMedicaCologuard Non- [facility] Lab Routine Special screening for malignant neoplasm of colon Ordered: 09/03/2024[employer] Work Phone: Comment on above:Ordered: 09/03/2024 End: 42-86-1067Nsmnngdlkbwrs metabolic 2000 panel - Serum or PlasmaComprehensive metabolic panel Lab Routine Hyperlipidemia, unspecified hyperlipidemia type 1 Occurrences starting 01/16/2024 until 01/15/2025[employer] Work Phone: Comment on above:1 Occurrences starting 01/16/2024 until 01/15/2025 End: 95-69-7552Qvjrxcbroc A1c/Hemoglobin.total in BloodHemoglobin A1c Lab Routine Type 2 diabetes mellitus without complication, without long-term current use of insulin ([facility]) 1 Occurrences starting 06/05/2024 until 06/05/2025 [facility] Work Phone: Comment on above:1 Occurrences starting 06/05/2024 until 06/05/2025Hemoglobin A1c/Hemoglobin.total in BloodHemoglobin A1c Lab Routine Type 2 diabetes mellitus without complication, without long-term current use of insulin ([facility]) 06/05/2024 5:50 PM [facility] HealthcareCapLinked [facility] End: 72-30-7762Bbvohsyaml A1c/Hemoglobin.total in BloodHemoglobin A1c Lab Routine Type 2 diabetes mellitus without complication, without long-term current use of insulin ([facility]) 1 Occurrences starting 09/07/2023 until 09/06/2024 [facility] Work Phone: Comment on above:1 Occurrences starting 09/07/2023 until 09/06/2024Hemoglobin A1c/Hemoglobin.total in BloodHemoglobin A1c Lab Routine Type 2 diabetes mellitus without complication, without long-term current use of insulin ([facility]) 09/07/2023 11:28 PM [facility] End: 49-29-7893Vjspguiqgy A1c/Hemoglobin.total in BloodHemoglobin A1c Lab Routine Type 2 diabetes mellitus without complication, without long-term current use of insulin ([facility]) 1 Occurrences starting 01/16/2024 until 01/15/[address] [address] [facility] SystemComment on above:1 Occurrences starting 01/16/2024 until 01/15/2025 End: 88-22-0282Swbel 1996 panel - Serum or PlasmaLipid profile Lab Routine Hyperlipidemia, unspecified hyperlipidemia type 1 Occurrences starting until 01/15/2025[facility]:1 Occurrences starting 01/16/2024 until 01/15/2025 End: 38-62-8094Chduqhadn [Mass/volume] in Serum or PlasmaMagnesium Lab Routine Chronic combined systolic and diastolic CHF (congestive heart failure) ([facility]) 1 Occurrences starting 01/16/2024 until 01/15/2025[facility] Comment on above:1 Occurrences starting 01/16/2024 until 01/15/2025 End: 32-29-6475Wbtmygecjysx - Albumin: Creatinine Urine RatioMicroalbumin - Albumin: Creatinine Urine Ratio Lab Routine Type 2 diabetes mellitus without complication, without long-term current use of insulin ([facility]) 1 Occurrences starting 01/16/2024 until 01/15/2025[facility] Ullink [facility] HospitalComment on above:1 Occurrences starting 01/16/2024 until 01/15/2025 Immunizations Immunization DateImmunizationNotesCare VdpfmxdnBrqivltr56-34-2224Asacoiol trivalent influenza vaccine, adjuvanted, preservative freeMerritt Kirstie DO Work Phone: [facility] Ullink Yaxmxr91-69-2817Ruddmupmjtmm, In Clinic,; 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: [Drug or medicament (substance)]Merritt Thacker DO Work Phone: [facility] Rtxjhj94-73-4393oteueskjj virus vaccine, unspecified formulationMerritt Filipes DO Work Phone: [facility] Jqcccf05-17-0628ymhgpxsmy, injectable, quadrivalent, preservative freeMerritt Filipes DO Work Phone: [facility] HospitalCapLinked Kyflsx26-41-8901qylatek toxoid, reduced diphtheria toxoid, and acellular pertussis vaccine, adsorbedJomagdalene Thacker DO Work Phone: [facility] CenterBzplsq53-03-3248booqgarsn virus vaccine, unspecified formulationJomagdalene Thacker DO Work Phone: [facility] Payers DatePayer CategoryPayerPolicy [id number] O [id number] [id number] [id number] [id number]-myg68-87-2416Xezuuik [id number] 2..840.1.248574.3.57[id number] 2.16840.1.038060.3.57[id number] 2.16.840.1.872359.3.57[id number] 2.16.840.1.186826.3.57[id number] 2..840.1.285593.3.57[id number] 2.16.840.1.671622.3.57[id number] 2.16.840.1.500025.3.57[id number] 2.16.840.1.768777.3.57[id number] 2.16840.1.464454.3.57[id number] 2..840.1.256691.3.57[id number] 2.16.840.1.391070.3.57[id number] 2..840.1.832781.3.57[id number] 2.16.840.1.282481.3.57[id number] 2.840.1.508193.3.57[id number] 2.840.1.860994.3.57[id number] [id number] Social History DateTypeDetailFacilityStart: 01-10-2023 End: 40-41-3786Wxhlppp smoking status NHISNever smoked tobaccoNOMS Healthcare Start: 01-10-2023 End: 89-36-0956Tvfrgje use and exposureSmokeless tobacco non-userNOMS Healthcare Start: 06-09-2023 End: 88-43-1389Qydchjr intakeCurrent drinker of alcohol (finding)[facility] Start: 07-10-2020 End: 89-41-7741Hqdblgv of Social functionNOKY HealthcareStart: 07-10-2020 End: 02-87-2547Hatioty use panelSTEWARD HEALTH CARE SYSTEM HealthcareStart: 66-23-1697Tsp Assigned At BirthNot on [facility] depression screening assessment0 [facility] Hospitaltart: [phone] CommentrarePAshe Memorial Hospitaltart: 78-97-1274IgwQprl (finding)[facility] Clinical Notes 06-17-2023 to 02-15-2025 Note Date & JzzzLifzPxnjnmtu10-14-1215 Miscellaneous Notes* Telephone Encounter - Noemi Caraballo [...] Comments: Left message for patient to contact health care administrator. Patient is overdue with cologuard order. Will send letter to patient. documented in this encounterUC Medical Center09-19-2025 Telephone encounter Note* Telephone Encounter - Noemi [...] Comments: Left message for patient to contact health care administrator. Patient is overdue with cologuard order. Will send letter to patient. [facility]08-25-2025 NoteSUBJECTIVE Reason for Visit: Cristobal Garcia is a 59 y.o. year old male patient being seen for heart failure hospital follow-up. HPI: Cristobal Garcia is a 59 y.o. year old male with significant medical history of heart failure with preserved ejection fraction, hypertension, diabetes type 2, hyperlipidemia, and JACQUE. Recently admitted at [facility] 12/31/2024 for SOB, acute on chronic diastolic [...] ago, he is unsur (more content not included)...[facility]04-07-2025 History of Present illness Narrative* Merritt Thacker, DO - 09/03/2024 1:30 PM EDT IM PROGRESS NOTE Patient - Cristobal Garcia Age - 58 y.o. - 1965 ASSESSMENT & PLAN 1. Type 2 diabetes mellitus without complication, without long-term current use of insulin ([facility]) (Primary) - goals of treatment reviewed with [...] systolic and diastolic CHF (congestive heart failure) ([facility]) - symptoms are stable -GDMT: Spironolactone, losartan, [...] exam was: 2024. Recently referred Ophthalmology in [place], and may need surgery done at [facility] Patient BP monitoring is done sporadically, [...] (!) 186.3 kg (410 lb 12.8 oz) GpN814% BMI 66.30 kg/m Physical Exam Vitals reviewed. [...] Testing No results found. Merritt Thacker DO., [facility] Physicians Office: [phone] documented in this encounterUC Medical Center01-09-2025 Miscellaneous Notes* Telephone Encounter - [facility] Levirodrigo - 06/07/2024 1:18 PM EST Called for pat assist, need proof of income, insurance card and signature documented in this encounterUC Medical Center01-09-2025 Telephone encounter Note* Telephone Encounter - [facility] Jaimee - 06/07/2024 1:18 PM EST Called for pat assist, need proof of income, insurance card and signature [facility]01-07-2025 History of Present illness Narrative* Merritt Thacker DO - 06/05/2024 1:00 PM EST IM PROGRESS NOTE Patient - Cristobal Garcia Age - 58 y.o. - 1965 ASSESSMENT & PLAN 1. Type 2 diabetes mellitus without complication, without long-term current use of insulin ([facility]) (Primary) -goals of treatment reviewed with the [...] diastolic CHF (congestive heart failure) ([facility]) -has gained weight -needs to restart his [...] Refill: 0 3. Obesity, morbid ([facility]) -this plays a major role in his diabetes and heart failure -consider adding G LP 1 agent in addition to current regimen 4. Stage 3b chronic kidney disease ([facility]) -GFR ranges 46-76 over the past year [...] Testing No results found. Merritt Thacker DO., [facility] Physicians Office: [phone] documented in this encounterUC Medical Center10-04-2024 Telephone encounter Note* Telephone Encounter - Jieallie Murillo - 03/02/2024 1:41 PM EDT Called and left vm for patient. [facility] [id number] Miscellaneous Notes* Telephone Encounter - Jieallie Murillo - 03/02/2024 1:41 PM EDT Called and left vm for patient. * Telephone Encounter - Jie Murillo - 03/01/2024 1:54 PM EDT 's office called regarding a referral they received. is not accepting new patients at this time. Please advise. documented in this encounterHermann Area District [id number] Telephone encounter Note* Telephone Encounter - Jie Murillo - 03/01/2024 1:54 PM EDT 's office called regarding a referral they received. is not accepting new patients at this time. Please advise. [facility] [id number] History of Present illness Narrative* Inna Jefferson [...] prn. He notes he never heard from [facility] pain management, will send him back for eval of his bilateral knees for possible visco supplementation He notes since he came off his nsaids by his pcp his bilateral ankle and knees have been bothering him. Will send to dr. Payne, he is looking for ankle injections documented in this encounterHermann Area District [id number] History of Present illness Narrative* Merritt Thacker, DO - 02/21/2024 3:00 PM EDT IM PROGRESS NOTE Patient - Cristobal Garcia Age - 58 y.o. - 1965 ASSESSMENT & PLAN 1. Type 2 diabetes mellitus without complication, without long-term current use of insulin ([facility]) -I reviewed the results of the recent [...] diastolic CHF (congestive heart failure) ([facility]) -GDMT includes ARB (losartan), beta-bishop (carvedilol), spironolactone [...] Testing No results found. Merritt Thacker DO., [facility] Physicians Office: [phone] documented in this encounterUC Medical Center08-19-2024 History of Present illness Narrative* Merritt Thacker [...] post discharge medication. He was discharged from [facility] after being admitted for acute on [...] a daily basis. He ran out of Spotlime and is taking his old furosemide. In [...] for home nocturnal oxygen. Request sent to [employer]. Diagnoses and all orders for this visit: Chronic combined systolic and diastolic CHF (congestive heart failure) ([facility]) - aspirin 81 mg chewable tablet; Chew [...] long-term current use of insulin ([facility]) - Hemoglobin A1c; Future - Microalbumin - [...] Stage 3b chronic kidney disease ([facility]) - CBC auto differential; Future Hyperlipidemia, unspecified hyperlipidemia type - Comprehensive metabolic panel; Future - Lipid profile; Future documented in this encounterMercy Health Anderson HospitalFDM Digital Solutions Mck[facility] Memorial [id number] Miscellaneous Notes* Telephone Encounter - Eneida Lane CMA - 01/09/2024 4:59 PM EDT Alyssa from [facility] called wanting to know if you would follow this pt for home health care as he was discharged today from [facility] * Telephone Encounter - Merritt Thacker [...] EDT Message noted. Yes documented in this encounterUC Medical Center08-12-2024 Telephone encounter Note* Telephone Encounter - Eneida Lane CMA - 01/09/2024 4:59 PM EDT Alyssa from [facility] called wanting to know if you would follow this pt for home health care as he was discharged today from [facility]08-12-[facility] Telephone encounter Note* Telephone Encounter - Merritt Thacker DO - 01/09/2024 4:59 PM EDT Message noted. Yes [facility]08-12-20[facility] Telephone encounter Note* Telephone Encounter - Merritt Thacker DO - 01/09/2024 4:59 PM EDT Message noted. Yes. He will need a TCM [facility]08-12-2024 Telephone encounter Note* Telephone Encounter - Blanca Hermosillo - 01/09/2024 4:59 PM EDT He comes in 01/15 is that okay [facility]08-12-2024 Telephone encounter Note* Telephone Encounter - Merritt Thacker DO - 01/09/2024 4:59 PM EDT Message noted. Yes [facility]08-05-[facility] History of Present illness Narrative* Merritt Thacker [...] post discharge medication. Patient was discharge from [facility] on 12/19/2023 after being admitted for congestive [...] allhis symptoms since he was discharged from [facility], and actually feels worse. It does appear [...] Acute on chronic systolic congestive heart failure ([facility]) - I advised the patient that he needs to be admitted to the hospital to re- evaluate his current medical regimen, particularly with an eye toward starting SGLT2 agent, Entresto, spironolactone. I phoned to the [facility], but no rooms are available and patient is are being boarded in the ER. I advised the patient to had directly to the [facility] for readmission at this time. Essential hypertension - overall control today. -no changes. Treatment for congestive heart failure will involve controlling hypertension Stage 3b chronic kidney disease ([facility]) - need to reassess renal function given his description of ice tea urine - admit to hospital as above Type 2 diabetes mellitus without complication, without long-term current use of insulin ([facility]) - previously on Rybelsus plus metformin - currently only on metformin, which given his kidney disease may not be the best choice - probably needs SGLT2 agent given his heart failure and diabetes - this will be evaluated during admission Obesity, morbid ([facility]) - BMI 68 - some of this may be water weight. Needs to be addressed during admission. documented in this encounterUC Medical Center07-29-2024 Miscellaneous Notes* Telephone Encounter - Blanca Hermosillo - 12/26/2023 4:08 PM EDT ----- Message from Dr. Merritt Thacker DO sent at 09/07/2023 7:47 PM EDT ----- DM recheck * Telephone Encounter - Blanca Hermosillo - 12/26/2023 4:08 PM EDT Pt hung up documented in this encounterUC Medical Center07-29-2024 Telephone encounter Note* Telephone Encounter - Blanca Hermosillo - 12/26/2023 4:08 PM EDT ----- Message from Dr. Merritt Thacker DO sent at 09/07/2023 7:47 PM EDT ----- DM recheck [facility]07-29-[facility] Telephone encounter Note* Telephone Encounter - Blanca Hermosillo - 12/26/2023 4:08 PM EDT Pt hung up [facility]07-17-2024 Miscellaneous Notes* Telephone Encounter - Selma Quijano [...] Patient notified and understands. documented in this encounterUC Medical Center07-17-2024 Telephone encounter Note* Telephone Encounter - Selma Quijano CMA - 12/14/2023 1:39 PM EDT Patient called and stated he is retaining fluid in his abdomen area and it is making him so SOB. What do you suggest he do? [facility]07-17-[facility] Telephone encounter Note* Telephone Encounter - Merritt Thacker DO - 12/14/2023 1:39 PM EDT Message noted. I have no room for him today He will need to go to the ED [facility]07-17-2024 Telephone encounter Note* Telephone Encounter - Selma Quijano CMA - 12/14/2023 1:39 PM EDT Patient notified and understands. [facility]04-18-2024 Miscellaneous Notes* Telephone Encounter - Nitza Oneal CMA - 09/15/2023 10:15 AM EDT Pt called and states he was wondering if his sample of RYBELSUS was ready. It is and he states he will pick it up. * Telephone Encounter - Blanca Hermosillo - 09/15/2023 10:15 AM EDT Picked up documented in this encounterUC Medical Center04-18-2024 Telephone encounter Note* Telephone Encounter - Nitza Oneal CMA - 09/15/2023 10:15 AM EDT Pt called and states he was wondering if his sample of RYBELSUS was ready. It is and he states he will pick it up. [facility]04-18-2024 Telephone encounter Note* Telephone Encounter - Blanca Hermosillo - 09/15/2023 10:15 AM EDT Picked up [employer]04-10-2024 History of Present illness Narrative* Merritt Thacker, DO - 09/07/2023 1:00 PM EDT IM PROGRESS NOTE Patient - Cristobal Garcia Age - 57 y.o. - 1965 [facility] # - [id number] ASSESSMENT & PLAN 1. Type 2 diabetes mellitus without complication, without long-term current use of insulin ([facility]) - Goals of treatment reviewed with patient - Currently on metformin and sitagliptan - Repeat A1c to assess efficacy of treatment. Might be better with GLP-1 and SGLT-2 agents - Comprehensive metabolic panel; Future - Hemoglobin A1c; Future - Lipid profile; Future 2. Stage 3b chronic kidney disease ([facility]) - Repeat GFR - Renal protective strategies [...] 60.0 to 69.9 in adult ([facility]) - We reviewed importance of weight loss [...] Testing No results found. Merritt Thacker DO., [facility] Physicians Office: [phone] documented in this encounterUC Medical Center01-19-2024 Telephone encounter Note* Telephone Encounter - [facility] July - 06/17/2023 9:18 AM EST Sarah, patient called stated that he received two refund checks from [employer]. He deposited the checks and then was told from his bank that they bounced. If you could look into this for me please, all I am seeing is that the refunds were sent out. Call back # [phone] [facility] HospitalTyzyqjxspe11-43-5822 Miscellaneous Notes* Telephone Encounter - [facility] July - 06/17/2023 9:18 AM EST Sarah, patient called stated that he received two refund checks from [employer]. He deposited the checks and then was told from his bank that they bounced. If you could look into this for me please, all I am seeing is that the refunds were sent out. Call back # [phone] documented in this encounterNOKY HealthcareEvaluation note* Diagnosis Right shoulder pain, unspecified chronicity- Primary Chronic pain of both knees Chronic pain of both ankles Impingement of right shoulder documented in this encounter N[facility] HealthcareEvaluation note* Diagnosis Type 2 diabetes mellitus without complication, without long-term current use of insulin ([facility] Primary Chronic combined systolic and diastolic CHF (congestive heart failure) ([facility]) Obesity, morbid ([facility]) Morbid obesity Stage 3b chronic kidney disease ([facility]) Encounter for screening for malignant neoplasm of prostate Encounter for immunization Primary osteoarthritis of right shoulder Non-seasonal allergic rhinitis, unspecified trigger documented in this encounter [facility] SystemEvaluation [facility]* Diagnosis Type 2 diabetes mellitus without complication, without long-term current use of insulin ([facility]) documented in this encounter [facility]* Diagnosis Acute on chronic systolic congestive heart failure ([facility])- Primary Essential hypertension Unspecified essential hypertension Stage 3b chronic kidney disease ([facility]) Type 2 diabetes mellitus without complication, without long-term current use of insulin ([facility]) Obesity, morbid ([facility]) Morbid obesity documented in this encounter [facility]* Diagnosis Type 2 diabetes mellitus without complication, without long-term current use of insulin ([facility])- Primary Stage 3b chronic kidney disease ([facility]) Essential hypertension Unspecified essential hypertension Class 3 severe obesity due to excess calories with serious comorbidity and body mass index (BMI) of60.0 to 69.9 in adult ([facility]) Immunization due documented in this encounter [facility]* Diagnosis Chronic combined systolic and diastolic CHF (congestive heart failure) ([facility]) - Primary Type 2 diabetes mellitus without complication, without long-term current use of insulin ([facility]) Primary osteoarthritis of right shoulder Stage 3b chronic kidney disease ([facility]) Hyperlipidemia, unspecified hyperlipidemia type documented in this encounter [facility]* Diagnosis Type 2 diabetes mellitus without complication, without long-term current use of insulin ([facility])- Primary Chronic combined systolic and diastolic CHF (congestive heart failure) ([facility]) Primary osteoarthritis of right shoulder Chronic right shoulder pain Pain in joint, shoulder region Primary osteoarthritis of both ankles documented in this encounter [facility]* Diagnosis Type 2 diabetes mellitus without complication, without long-term current use of insulin ([facility]) documented in this encounter [facility]* Diagnosis Type 2 diabetes mellitus without complication, without long-term current use of insulin ([facility])- Primary Special screening for malignant neoplasm of colon Special screening for malignant neoplasms, colon Chronic combined systolic and diastolic CHF (congestive heart failure) ([facility]) Non-seasonal allergic rhinitis, unspecified trigger Primary osteoarthritis of right shoulder documented in this encounter [facility]* Diagnosis Type 2 diabetes mellitus without complication, without long-term current use of insulin ([facility]) Non-seasonal allergic rhinitis, unspecified trigger [...] Diagnoses Chronic pain of both ankles Procedures VT OFFICE/OUTPATIENT NEW HIGH MDM 60 MINUTES Inna Jefferson NP [address] [place] [address] Ivan Payne MD [address] [place] [address] [place] [address] Referral IDStatusReasonStart DateExpiration DateVisits RequestedVisits [id number] Review Specialty Services Required * Consultation (Routine) - Pending ReviewSpecialtyDiagnoses / ProceduresReferred By ContactReferred To ContactPain Medicine Diagnoses Chronic pain of both knees Procedures VT OFFICE/OUTPATIENT NEW HIGH MDM 60 MINUTES Inna Jefferson NP [address] [place] [address] Karel Blackwell MD [address] [place] [address] Referral IDStatusReasonStart DateExpiration DateVisits RequestedVisits [id number] Review Specialty Services Required * Clinic-Administered Medication (Routine) - AuthorizedSpecialtyDiagnoses / ProceduresReferred By ContactReferred To ContactOrthopaedic Surgery Diagnoses Impingement of right shoulder Procedures L Inj/Asp: R subacromial bursa Inna Jefferson NP [address] [facility] [address] [place] [address] Referral IDStatusReasonStart DateExpiration DateVisits RequestedVisits [id number] GABY Paz for referral (narrative)* Consultation (Routine) - Pending ReviewSpecialtyDiagnoses / ProceduresReferred By ContactReferred To Contact Orthopedic Surgery / MED-SURG/ORTHOPEDICS Diagnoses Primary osteoarthritis of right shoulder Chronic right shoulder pain Primary osteoarthritis of both ankles Merritt Thacker DO [address] [place] [address] Kaveh Mayer DO [address] [facility] [address] [place] [address] Referral IDStatusReasonStart DateExpiration DateVisits RequestedVisits [id number] Review Specialty Services Required [facility] [...] complication, without long-term current use of insulin ([facility]) Merritt Thacker DO [address] [place] [address] Referral IDStatusReasonStart DateExpiration DateVisits RequestedVisits [id number] Additional Source Comments (unrecognized sect ion and content) No Status Records FoundNo Status Records FoundNo Status Records FoundNo Status Records FoundNo Status Records FoundNo Status Records Found INFORMATION SOURCE (unrecogn ized section and content) DATE CREATED AUTHOR 10/11/2020 [facility] DATE CREATED AUTHOR AUTHOR'S ORGANIZ ATION 07/03/2022 [facility] DATE CREATED AUTHOR AUTHOR'S ORGANIZ ATION 03/02/2024 [facility] DATE CREATED AUTHOR AUTHOR'S ORGANIZ ATION 09/05/2024 [facility] DATE CREATED AUTHOR AUTHOR'S ORGANIZ ATION 09/05/2024 [facility] DATE CREATED AUTHOR AUTHOR'S ORGANIZ ATION 01/22/2025 [facility] Reason for Visit (unrecogniz ed section and content) ReasonOnset DateCommentsRefund [id number]lty Diagnoses / ProceduresReferred By ContactReferred To ContactOrthopaedic Surgery Diagnoses Primary osteoarthritis of right shoulder Chronic right shoulder pain Primary osteoarthritis of both ankles Procedures AMB REFERRAL TO ORTHOPEDIC SURGERY Merritt Thacker MD [address] [place] [address] Kaveh Mayer DO [address] [facility] [address] [place] [address] Referral IDStatusReasonStart DateExpiration DateVisits RequestedVisits [id number] DateCommentsReferral 4ReasonCommentsHypertensionHyperlipidemiacvReasonOnset DateCommentsMed [id number] and swelling belly on downNo feverReason CommentsDiabetesStomach some hard skinReasonCommentsFollow-upReasonComments DiabetesReasonCommentsMed RefillReasonCommentsDiabetesReasonOnset DateComments Colon Cancer Riayupxwy10/19/2025 Care Teams (unrecognized sec tion and content) Team MemberRelationshipSpecialtyStart DateEnd Date Merritt Thacker MD [address] [place] [address] PCP - GeneralInternal Lhlwlizk80/30/23Team MemberRelationshipSpecialtyStart Date End Date Merritt Thacker MD [address] [place] [address] PCP - GeneralInternal Docszdlf16/30/23Team MemberRelationshipSpecialtyStart Date End Date Merritt Thacker MD [address] [place] [address] PCP - GeneralInternal Poryvase66/30/23Team MemberRelationshipSpecialtyStart Date End Date Merritt Thacker MD [address] [place] [address] PCP - GeneralInternal Pxjcsbeg98/30/23Team MemberRelationshipSpecialtyStart Date End Date Merritt Thacker DO [address] [place] [address] PCP - GeneralInternal Medicine01/12/23Team MemberRelationshipSpecialtyStart Date End Date Juan AntonioyosiMerritt hay DO [address] [place] [address] PCP - GeneralInternal Medicine01/12/23Team MemberRelationshipSpecialtyStart Date End Date Merritt Thacker, DO [address] [place] [address] PCP - GeneralInternal Medicine01/12/23Team MemberRelationshipSpecialtyStart Date End Date Merritt Thacker DO [address] [place] [address] PCP - GeneralInternal Medicine01/12/23Team MemberRelationshipSpecialtyStart Date End Date Merritt Thacker, DO [address] [place] [address] PCP - GeneralInternal Medicine01/12/23Team MemberRelationshipSpecialtyStart Date End Date Merritt Thacker, DO [address] [place] [address] PCP - GeneralInternal Medicine01/12/23Team MemberRelationshipSpecialtyStart Date End Date Merritt Thacker, DO [address] [place] [address] PCP - GeneralInternal Medicine01/12/23Team MemberRelationshipSpecialtyStart Date End Date Merritt Thacker DO [address] [place] [address] [facility]01/12/23[facility] MemberRelationshipSpecialtyStart Date End Date eMrritt Thacker DO [address] [facility] [place] [address] [facility]01/12/23[facility] MemberRelationshipSpecialtyStart Date End Date Merritt Thacker DO [address] [facility] [place] [address] [facility]01/12/23[facility] MemberRelationshipSpecialtyStart Date End Date Merritt Thacker DO [address] [place] [address] [facility]01/12/23[facility] MemberRelationshipSpecialtyStart Date End Date Merritt Thacker DO [address] [place] [place] [address] [facility]01/12/23 FOR RECORDS PERTAINING TO PATIENTS WHO [...] BE BASED ON THE PRIMARY CLINICAL RECORDS. [facility] [employer] [facility]. provides no warranty or guarantee of the accuracy or completeness of information in this document.
[2025-04-02 09:39] LABS: Hematocrit 44.3 % (42.0-54.0); Hemoglobin 12.9 g/dL (14.0-18.0); Immature Granulocytes Abs Auto 0.10 10^3/uL (0.00-0.03); Immature Granulocytes Pct Auto 1.2 % (0.0-0.5); Lymphocytes Absolute Auto 1.1 10^3/uL (1.2-3.8); Mean Corpuscular HGB Conc 29.1 g/dL (29.9-35.2); Mean Corpuscular Hemoglobin 25.3 pg (25.9-34.0); Mean Corpuscular Volume 86.9 fL (80.0-94.0); Platelet Count 257 10^3/uL (150-450); Red Blood Count 5.10 10^6/uL (4.70-6.10); White Blood Count 8.1 10^3/uL (4.0-11.0)
[2025-04-02 10:10] LABS: Alanine Aminotransferase 35 U/L (16-63); Albumin Globulin Ratio 1.0; Albumin Level 3.3 g/dL (3.4-5.0); Alkaline Phosphatase 81 U/L (46-116); Anion Gap 10.3; Aspartate Amino Transferase 15 U/L (15-37); Blood Urea Nitrogen 42.0 mg/dL (7.0-18.0); Calcium 8.6 mg/dL (8.5-10.1); Carbon Dioxide 37.6 mmol/L (21.0-32.0); Chloride 103 mmol/L (98-107); Estimated GFR (African America >60 (>=60 mL/min/1.73m^2); Estimated GFR (Non-African Ame 55 (>=60 mL/min/1.73m^2); Globulin 3.3 g/dL; Glucose 217 mg/dL (74-106); Potassium 4.9 mmol/L (3.5-5.1); Sodium 146 mmol/L (136-145); Total Protein 6.6 g/dL (6.4-8.2)
[2025-04-02 10:18] LABS: NT Pro B Type Natriuretic Pept 3881.0 pg/mL (<=900.0)
== END 2025-04-02 09:13 | disposition home or self-care (01) ==
LOC: LAB 09:14
PROVIDERS: PCP Family Medicine; Visit Provider Family Medicine
DX: J81.1 Chronic pulmonary edema (principal); I50.30 Unspecified diastolic (congestive) heart failure; D50.9 Iron deficiency anemia, unspecified; I11.0 Hypertensive heart disease with heart failure
CPT/HCPCS: 36415; 80053; 83880; 84484; 85025

== ENCOUNTER 2025-04-08 15:16 | Outpatient (OUT) | payer MEDICARE, SELFPAY ==
--- OUTSIDE RECORDS SUMMARY | 2025-04-08 15:19 | XMS_ITS | Clinical Summary ---
Author Organization [facility] Address [address] [place] [address] Care Team Providers Care Exceptional Children Teacher Name Role Phone Denys Breen MD Primary Care Provider [phone] Allergies Active AllergyReactionsCriticalityNoted DateCommentsTopiramateHeadache,Other 05/17/2014 Severe headache [...] in the morning and at bedtime.Active HYDROcodone-acetaminophen ([place]) 5-325 mg tablet Take 1 tablet by [...] in the morning.Active Active Problems ProblemNoted DateDiagnosed VxjcKfmsfqlwbbfe88/20/2025Lumbar radiculopathy 01/16/2025OSA (obstructive sleep apnea)01/16/2025 Overview (01/16/2025): non compliant home machine Osteoarthritis of knee01/16/2025Shoulder pain01/16/2025hronic combined systolic and diastolic CHF (congestive heart failure)01/16/2024Essential hypertension 03/10/20233363Bbbwgzahsqsqbc82/12/2023Rotator cuff syndrome of right shoulder 03/10/2023Stage 3b chronic kidney hxfdird9903/10/2023Type 2 diabetes mellitus without complication, without long-term current use of rmxbzjm0503/10/2023Obesity, fvlyzb2201/10/2023KD (chronic kidney disease)11/03/20149791Eyxhepbbxaow97/07/2015 Gkpmugy1311/03/2014History of DVT (deep vein thrombosis)10/14/2014 Encounters DateTypeDepartmentCare KghgJfinayqhtoq82/25/2025 1:00 PM EDTOffice Visit [facility] [address] [address] Howard Delatorre, [place] Chronic heart failure with preserved ejection fraction (CMS/HCC) (Primary Dx); Heart failure with improved ejection fraction (HFimpEF) (CMS/HCC); Coronary artery disease involving [place] coronary artery of [place] heart without angina pectoris; Benign hypertensive heart [...] alcohol)occasionalSex and Gender InformationValueDate RecordedSex Assigned at TbmbtIqgq16/14/2025 9:33 AM EDTLegal YvfIpum3411/25/2021 11:23 PM EDTGender QwpwmruwLorl16/14/2025 9:33 AM EDTSexual OrientationHeterosexual or Straight 01/10/2025 9:33 AM EDT Last Filed Vital Signs Vital SignReadingTime TakenCommentsBlood Bmoevnix996/8301/21/2025 1:25 PM EDT Ditdd722501/21/2025 1:25 PM EDTTemperature--Respiratory Rate--Oxygen Sxwlpuwneb65% 01/21/2025 1:25 PM EDTInhaled Oxygen Concentration--Tguzae123 kg (420 lb) 01/21/2025 1:25 PM LLYRbzqkm513.6 cm (5' 6 )01/21/2025 1:25 PM EDTBody Mass Index67.7901/21/2025 1:25 PM EDT Plan of Treatment Health MaintenanceDue DateLast DoneCommentsCT Nzlxvbgjrlbh47/31/1965Colonoscopy 1964Colorectal Cancer Sgibysiyl58/31/1965Diabetes: Hemoglobin A1C 1964FIT-DNA1964FIT1964FOBT1964Medicare Annual Wellness (AWV)1964 2677Mttbmfipzfdhm20/31/1965Diabetes: Retinopathy Omrgzdijj97/31/1975 Depression Ezavdsvgo46/31/1977Diabetes: Urine Protein Gumienjnk11/31/1984 Pneumococcal Vaccine: Pediatrics (0 to 5 Years) and At-Risk Patients (6 to 64 Years) (1 of 2 - PCV)10/28/1983Zoster Vaccines (1 of 2)2014COVID-19 Vaccine (1 - season)2025Influenza Vaccine (#1)2025 06/05/2024, 03/10/2023dult Vtwtajc29HIB VaccinesAged OutNo longer eligible based on patient's [...] topic Insurance Care Teams Team MemberRelationshipSpecialtyStart DateEnd Denys Breen MD [address] [place] [address] PCP - GeneralFamily Medicine01/21/25
--- OUTSIDE RECORDS SUMMARY | 2025-04-08 15:20 | XMS_ITS | Clinical Summary ---
Author Organization [facility] Address [address] [place] [address] Care Team Providers Care Cyber Forensic Specialist Name Role Phone Sandip Woo MD Primary Care Provider [phone] Allergies Active AllergyReactionsCriticalityNoted ZxviYhggijrlFwwvyhvpug90/30/2023 Medications MedicationSigDispense QuantityRefillsLast FilledStart DateEnd DateStatus amLODIPine [...] InformationValueDate RecordedSex Assigned at BirthNot on fileLegal UpySmqr6808/11/2022 7:03 PM EDTGender IdentityNot on fileSexual OrientationNot on file Last Filed Vital Signs Vital SignReadingTime TakenCommentsBlood Lwpyzbcz636/7604 12:00 PM EDT Pulse--Temperature--Respiratory Rate--Oxygen Saturation--Inhaled Oxygen Concentration--Vfrlhx902 kg (377 lb)09/15/2017 12:00 PM JTQBilwrr856.6 cm (5' 6 )09/15/2017 12:00 PM EDTBody Mass Index60.85009/15/2017 12:00 PM EDT Plan of Treatment Not on file Insurance Care Teams Team MemberRelationshipSpecialtyStart DateEnd Date Sandip Woo MD [address] [place] [address] PCP - GeneralInternal Eziopkjr04/30/23
--- OUTSIDE RECORDS SUMMARY | 2025-04-08 15:20 | XMS_ITS | Clinical Summary ---
Author Organization [facility] Address [address], [address] [place] [address] Care Team Providers Care Monitoring Engineer Name Role Phone Thom Stern MD Primary Care Provider [phone] Allergies Active AllergyReactionsCriticalityNoted NgfwTtvnazvzIjnrlnypms61/07/2015 Medications MedicationSigDispense QuantityRefillsLast FilledStart DateEnd DateStatus DULoxetine [...] daily 60 capsule ctive vitamin D (ERGOCALCIFEROL) 18304 UNITS capsule Take 1 capsule by mouth once a week for 8 doses 8 capsule ctive tamsulosin (FLOMAX) 0.4 MG capsule Take 1 capsule by mouth daily 30 capsule ctive OXcarbazepine (TRILEPTAL) 150 MG tablet Take 1 tablet by mouth 3 times daily for 15 days 45 tablet ctive Active Problems ProblemNoted DateDiagnosed DateCKD (chronic kidney disease)11/03/2014Syncope 11/03/20149942Njbcuurtpbfj25/07/2015OSA (obstructive sleep apnea) Overview (11/03/2014): non compliant home machine Social History Tobacco UseTypesPacks/DayYears UsedDateSmoking Tobacco: NeverAlcohol UseStandard Drinks/WeekCommentsNo0 (1 standard drink = 0.6 oz pure alcohol)Sex and Gender InformationValueDate RecordedSex Assigned at BirthNot on fileLegal SexMale 07/09/2012 12:35 PM ESTGender IdentityNot on fileSexual OrientationNot on file Last Filed Vital Signs Vital SignReadingTime TakenCommentsBlood Lxgrajpe718/66011/06/2014 12:00 PM EDT Oylip2254 12:00 PM JTQTqwihmpyxxh65.1 ??C (98.8 ??F)11/06/2014 12:00 PM EDTRespiratory Fcxf220411/06/2014 12:00 PM EDTOxygen Gyygfappwv77%11/06/2014 12:00 PM EDTInhaled Oxygen Concentration--Xhibed627.6 kg (429 lb 0.2 oz)11/05/2014 11:48 PM OKYLqchli577.6 cm (5' 6 )11/03/2014 4:45 AM EDTBody Mass Index69.24 11/03/2014 4:45 AM EDT Plan of Treatment Not on file Insurance Advance Directives * Full Code (Latest Code Status on File) Date ActivatedDate InactivatedComments11/03/2014 9:41 AM11/06/2014 6:48 PM Care Teams Team MemberRelationshipSpecialtyStart DateEnd Date Thom Stern MD [facility] - General11/03/14
--- OUTSIDE RECORDS SUMMARY | 2025-04-08 15:20 | XMS_ITS | Clinical Summary ---
Author Organization [facility] Address [id number] [address] [place] [address] Care Team Providers Care Section Weaver Name Role Phone Unavailable Primary Care Provider Unavailabl e Allergies Active AllergyReactionsCriticalityNoted DateCommentsTopiramateHeadache,Other (See Comments)05/17/2014 Severe headache Medications MedicationSigDispense QuantityRefillsLast FilledStart DateEnd DateStatus albuterol (PROVENTIL HFA;VENTOLIN HFA) 90 mcg/actuation inhaler INHALE 2 PUFFS BY MOUTH EVERY 4 HOURS NEEDED for SHORTNESS OF BREATH or FOR TABNFHJQ43/21/2024ctive aspirin 81 mg chewable tablet Indications:Chronic combined systolic and diastolic CHF (congestive heart failure) [place]Chew 1 tablet (81 mg total) and swallow in the morning. 90 tablet ctive magnesium oxide 250 mg tablet Indications:Chronic combined systolic and diastolic CHF (congestive heart failure) ([facility])Take 1 tablet (250 mg total) by mouth in the morning. 90 tablet 4Active atorvastatin (LIPITOR) 40 mg tablet Indications:Type 2 diabetes mellitus without complication, without long-term current use of insulin ([facility])Take 1 tablet (40 mg total) by mouth nightly. 90 tablet 5Active carvediloL (COREG) 12.5 mg tablet Indications:Chronic combined systolic and diastolic CHF (congestive heart failure) ([facility])Take 1 tablet (12.5 mg total) by mouth in the morning and 1 tablet (12.5 mg total) in the evening. Take with meals. 180 tablet 5Active furosemide (LASIX) 40 mg tablet Indications:Chronic combined systolic and diastolic CHF (congestive heart failure) ([facility])Take 1 tablet (40 mg total) by mouth daily. 30 tablet 1101/07/2025Active losartan (COZAAR) 50 mg tablet Indications:Chronic combined systolic and diastolic CHF (congestive heart failure) ([facility])Take 1 tablet (50 mg total) by mouth in the morning. 90 tablet 5Active spironolactone (ALDACTONE) 25 mg tablet Indications:Chronic combined systolic and diastolic CHF (congestive heart failure) ([facility]Take 1 tablet (25 mg total) by mouth in the morning. 90 tablet 5Active dapagliflozin propanediol (FARXIGA) 10 mg tablet Indications:Chronic combined systolic and diastolic CHF (congestive heart failure) ([facility])Take 1 tablet (10 mg total) by mouth in the morning. 120 tablet 5Active baclofen 5 mg tablet Indications:Primary osteoarthritis of right shoulderTake 2 tablets by mouth 2 (two) times a day as needed (back spasm).5Active metFORMIN (GLUCOPHAGE) 1000 mg tablet Indications:Type 2 diabetes mellitus without complication, without long-term current use of insulin ([facility])TAKE 1 TABLET BY MOUTH TWICE DAILY (IN THE MORNING and BEFORE bedtime) 180 tablet 5Active cetirizine (ZyrTEC) 10 mg tablet Indications:Non-seasonal allergic rhinitis, unspecified triggerTake 1 tablet (10 mg total) by mouth in the morning. 30 tablet 5Active Active Problems ProblemNoted DateDiagnosed DateChronic combined systolic and diastolic CHF (congestive heart failure)01/16/2024Stage 3b chronic kidney zdvhtgw7303/10/2023 Ihquauzyonwcgf12/12/2023Type 2 diabetes mellitus without complication, without long-term current use of qadjjgb5903/10/2023Essential exfemjsrbftm26/12/2023 Rotator cuff syndrome of right eojzdhnj62/12/2023Obesity, xsyknz0001/10/2023 Resolved Problems ProblemNoted DateDiagnosed DateResolved DateAcute on chronic systolic congestive heart osvqdcg83 Encounters DateTypeDepartmentCare KunyJatmaggmcrl45/02/2025Refill [facility] [address] [place] [phone] Sandip Woo, DO Type 2 diabetes mellitus without complication, without long-term current use of insulin ([facility]); Chronic combined systolic and diastolic CHF (congestive heart failure) ([facility]) 02/15/2025Telephone [facility] [address] [place] [address] Noemi Caraballo, [facility] Colon Cancer Puagbfjir65/11/2025Orders Only [facility] [address] [place] [phone] Ref Prov, Not In System from Last 3 Months Immunizations ImmunizationAdministration DatesNext DueInfluenza, Injectable, quadrivalent (PF) 03/10/2023Influenza, Trivalent, Kjkaeordfg11/07/6688Sjuy55/12/2023 Family History Medical HistoryRelationNameCommentsDiabetesFatherHeart failureFatherHeart failureMotherRelationNameStatusCommentsFatherDeceasedMotherDeceased Social History Tobacco UseTypesPacks/DayYears UsedDateSmoking Tobacco: NeverSmokeless Tobacco: Never Tobacco Cessation:Counseling Given: Not Answered Alcohol UseStandard Drinks/WeekCommentsYes2 (1 standard drink = 0.6 oz pure alcohol)rarePHQ-2AnswerDate RecordedTotal Gxcrt261hildcareAnswerDate GddqcjgtUzzviajquQcdudvb09/13/2020EmploymentAnswerDate RecordedEmploymentUnknown 04/11/2020Hunger ScreeningAnswerDate RecordedWithin the past 12 months we worried whether our food would run out before we got money to buy more.Never True09/03/2024Within the past 12 months the food we bought just didn't last and we didn't have money to get more.Never True09/03/2024Purpose - LifeAnswerDate RecordedPurpose and direction in heduNcrxdmb26/11/2021ex and Gender Information ValueDate RecordedSex Assigned at BirthNot on fileLegal LnkTosz9501/02/2015 11:32 AM EDTGender IdentityNot on fileSexual OrientationNot on file Last Filed Vital Signs Vital SignReadingTime TakenCommentsBlood Fnhokvkt065/7004 1:48 PM EDTbp cuff not big mcmfizQydct7327/07/2025 1:48 PM ARXQqzydvyxocj08.4 ??C (97.5 ??F) 09/03/2024 1:48 PM EDTRespiratory Mfox5057 1:48 PM EDTOxygen Saturation 91%09/03/2024 1:48 PM EDTInhaled Oxygen Concentration--Ixheve145.3 kg (410 lb 12.8 oz)09/03/2024 1:48 PM XAOFqlsjm286.6 cm (5' 6 )09/03/2024 1:48 PM EDTBody Mass Index66. 1:48 PM EDT Plan of Treatment Health MaintenanceDue DateLast DoneCommentsDiabetic Ophthalmology Exam1964 Adult BMI Follow Up Plan1982Zoster (Shingles) Vaccine (1 of 2)2014 Diabetic Foot Exam01/10/RSV ( or age 60+ yrs) (1 - Risk 60-74 years 1-dose series)2024Influenza Chepjos09, 03/10/2023epression Pmbyfezop08Statin Use: Imifrwoc11/07/2026 06/05/2024dult BMI Rvfiluyig77Tobacco Uvflbguld91/07/2026 09/03/2024DTaP,Tdap and Td Vaccines (2 - Td or Tdap) Medical Devices Not on file Insurance
--- OUTSIDE RECORDS SUMMARY | 2025-04-08 15:23 | XMS_ITS | CCD ---
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 Name Role Phone HOUSE, DR GLEZ Primary [...] Unavailable Yuhas Merritt BEST Primary Care Provider [phone] Yuyosis Merritt BEST Primary Care Provider MERRITT THACKER Attending Unavailable YUHAS, MERRITT Eng Referring Unavailable YUHAS, MERRITT L Primary Care Unavailable YUHAS, MERRITT L Attending Unavailable YUHAS, MERRITT L Referring Unavailable YUHAS, MERRITT L Primary Care Unavailable YUHAS, MERRITT Eng Attending Unavailable YUHAS, MERRITT Eng Referring Unavailable [...] TypeDate of OnsetReaction(s) FacilityAnti-Epileptic Agents (1 source)topiramateDrug Rqzdlqu60-49-7982Gjj[facility] (6 sources)topiramate; 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: [TOPIRAMATE]Drug Ypiqpeo41-75-9573EgxvcgiqwMart[facility]erry [facility] (5 sources)TopiramatePropensity to adverse qqkjrffav86-22-5174[facility] (15 sources)topiramateDrug Uioevov47-97-5711Krloyuql, Other (See Comments) [facility] Medications Current Medications MedicationDrug Class(es)DatesSig (Normalized)Sig (Original)[id number] 200 actuat albuterol 0.09 mg/actuat metered dose inhaler (10 sources)beta2-Adrenergic AgonistStart: 75-97-4480ypte 2 puff(s) by mouth every four hours as needed for wheezingalbuterol (PROVENTIL HFA;VENTOLIN HFA) 90 mcg/actuation inhaler INHALE 2 PUFFS BY MOUTH EVERY 4 HOURS NEEDED for SHORTNESS OF BREATH or FOR WHEEZING 12/18/2023 ActiveamLODIPine 5 mg oral tablet (5 sources)Dihydropyridine Calcium Channel BlockeramLODIPine (Norvasc) 5 MG tablet Activeaspirin 81 mg chewable tablet (8 sources)Platelet Aggregation Inhibitor, Nonsteroidal Anti-inflammatory Drug Start: 38-40-7329dhrwssw 81 mg chewable tablet Indications: Chronic combined systolic and diastolic CHF (congestive heart failure) ([facility]) Chew 1 tablet (81 mg total) and swallow in the morning. 90 tablet 1 01/16/2024 Active atorvastatin 40 mg oral tablet (20 sources)HMG-CoA Reductase InhibitorStart: 01-09-2024 End: 33-52-2953iyxp 1 tablet by mouth once dailyatorvastatin (LIPITOR) 40 mg tablet Indications: Type 2 diabetes mellitus without complication, without long- term current use of insulin ([facility]) Take 1 tablet (40 mg total) by mouth nightly. 90 tablet 1 06/05/2024 ActiveStart: 03-10-2023 End: 03-09-6972jjkl 1 tablet by mouth in the morningatorvastatin [...] mg oral tablet (11 sources)gamma-Aminobutyric Acid-ergic AgonistStart: 85-36-5957rzne 2 tablets by mouth twice daily as needed for muscle spasmsbaclofen 5 mg tablet Indications: Primary osteoarthritis of right shoulder Take 2 tablets by mouth 2 (two) times a day as needed (back spasm). 09/03/2024 ActiveStart: 01-16-2024 End: 73-13-3288dxvz 1 tablet by mouth twice daily as needed for muscle spasms baclofen 5 mg tablet Indications: Primary osteoarthritis of right shoulder Take 1 tablet by mouth 2(two) times a day as needed (back spasm). 60 tablet 2 06/05/2024 09/03/2024 Discontinuedcarvedilol 12.5 mg oral tablet (10 sources)alpha-Adrenergic Bishop, beta-Adrenergic BlockerStart: 01-09-2024 End: 29-46-9442yxac 1 tablet by mouth in the morning, then take 1 tablet by mouth at mealtimecarvediloL (COREG) 12.5 mg tablet Indications: Chronic combined systolic and diastolic CHF (congestive heart failure) ([facility]) Take 1 tablet (12.5 mg total) by mouth in the morning and 1 tablet (12.5 mg total) in the evening. Take with meals. 180 tablet 1 06/05/2024 Activecetirizine hydrochloride 10 mg oral tablet (4 sources)Histamine-1 Receptor AntagonistStart: 09-03-2024 End: 40-53-8762eslu 1 tablet by mouth in the morningcetirizine (ZyrTEC) 10 mg tablet Indications: Non-seasonal allergic rhinitis, unspecified trigger Take 1 tablet (10 mg total) by mouth in the morning. 30 tablet 12/03/2024 Active dapagliflozin 10 mg oral tablet (8 sources)Sodium-Glucose Cotransporter 2 InhibitorStart: 15-25-7799uqgg 1 tablet by mouth in the morningdapagliflozin propanediol (FARXIGA) 10 mg tablet Indications: Chronic combined systolic and diastolic CHF (congestive heart failure) ([facility]) Take 1 tablet (10 mg total) by mouth in the morning. 120 tablet 2 06/07/2024 ActiveStart: 02-21-2024 End: 64-32-8333uwsd 1 tablet by mouth in the morningdapagliflozin propanediol (FARXIGA) 10 mg tablet Indications: Chronic combined systolic and diastolic CHF (congestive heart failure) ([facility]) Take 1 tablet (10 mg total) by mouth in the morning. 90 tablet 1 06/05/2024 Activeferrous sulfate 325 mg oral tablet (5 sources)take 1 tablet by mouth in the morningferrous sulfate 325 (65 Fe) MG tablet Take 1 tablet by mouth in the morning. Activefurosemide 40 mg oral tablet (20 sources)Loop DiureticStart: 01-16-2024 End: 56-06-0248qptv 1 tablet by mouth once dailyfurosemide (LASIX) 40 mg tablet Indications: Chronic combined systolic and diastolic CHF (congestive heart failure) ([facility]) Take 1 tablet (40 mg total) by mouth daily. 30 tablet 11 06/05/2024 ActiveStart: 12-21-2022 End: 74-90-4053hqnx 1 tablet by mouth once dailyfurosemide (LASIX) 40 mg tablet Take 1 tablet (40 mg total) by mouth daily. 12/21/2022 01/02/2024 Discontinued (Patient Stopped On Own)furosemide (Lasix) 20 MG tablet Active hydroCHLOROthiazide 25 mg / triamterene 37.5 mg oral tablet (5 sources)Potassium-sparing Diuretic, Thiazide Diuretictriamterene- hydrochlorothiazide (Maxzide-25) 37.5-25 MG tablet Activelosartan potassium 50 mg oral tablet (20 sources)Angiotensin 2 Receptor BlockerStart: 03-10-2023 End: 25-48-7487tjox 1 tablet by mouth in the morninglosartan (COZAAR) 50 mg tablet Indications: Chronic combined systolic and diastolic CHF (congestiveheart failure) ([facility]) Take 1 tablet (50 mg total) by mouth in the morning. 90 tablet 1 06/05/2024 Activemagnesium oxide 250 mg oral tablet (8 sources)Start: 07-65-6408rqag 1 tablet by mouth in the morningmagnesium oxide 250 mg tablet Indications: Chronic combined systolic and diastolic CHF (congestive heart failure) ([facility]) Take 1 tablet (250 mg total) by mouth in the morning. 90 tablet 1 01/16/2024 ActivemetFORMIN hydrochloride 1000 mg oral tablet (20 sources)BiguanideStart: 12-21-2022 End: 94-15-3714mjde 1 tablet by mouth twice daily at bedtimemetFORMIN (GLUCOPHAGE) 1000 mg tablet Indications: Type 2 diabetes mellitus without complication, without long-term current use of insulin ([facility]) TAKE 1 TABLET BY MOUTH TWICE DAILY (IN THE MORNINGand BEFORE bedtime) 180 tablet 12/03/2024 Activepantoprazole 40 mg delayed release oral tablet (5 sources)Proton Pump Inhibitortake 1 tablet by mouth twice dailypantoprazole (ProtoNix) 40 MG EC tablet Take 1 tablet twice a day by oral route. Xptqvl17 hr phentermine 3.75 mg / topiramate 23 [...] oral tablet (7 sources)Dipeptidyl Peptidase 4 InhibitorStart: 83-41-4161kjzr 1 tablet by mouth in the morningSITagliptin (Januvia) 100 MG tablet Take 100 mg by mouth in the morning. 03/10/2023 Activespironolactone 25 mg oral tablet (10 sources)Aldosterone AntagonistStart: 01-09-2024 End: 78-65-2577qqkc 1 tablet by mouth in the morningspironolactone (ALDACTONE) 25 mg tablet Indications: Chronic combined systolic and diastolic CHF (co ngestive heart failure) ([facility]) Take 1 tablet (25 mg total) by mouth in the morning. 90 tablet 06/05/2024 ActivetiZANidine 4 mg oral tablet (14 sources)Central alpha-2 Adrenergic Agonist End: 11-59-4540nzCQAfxzgp (Zanaflex) 4 MG tablet Active End: 11-00-5352uriw 1 capsule by mouth every eight hours [...] ADJUVANT COMPONENT-PF) suspension (1 source)Start: 09-07-2023 End: 58-91-5168aaytnphg AS01B, PF,vial 1 of 2 (SHINGRIX ADJUVANT COMPONENT-PF) suspension Indications: Immunization due Inject 0.5 mL into the appropriate muscle once for 1 dose. Repeat dose in 2 -4 months 0.5 mL 09/07/2023 Expiredbenzonatate 100 mg oral capsule (5 sources)Non-narcotic AntitussiveStart: 12-18-2023 End: 77-30-5053bfxa 2 capsules by mouth every eight hours as neededbenzonatate (TESSALON PERLES) 100 mg capsule TAKE 2 CAPSULES BY MOUTH EVERY 8 HOURS NEEDED for coughing 12/18/2023 06/05/2024 Discontinued (Therapy completed) bumetanide 1 mg oral tablet (3 sources)Loop DiureticStart: 12-18-2023 End: 03-53-1303akcs 1 tablet by mouth once dailybumetanide (BUMEX) 1 mg tablet TAKE 1 TABLET BY MOUTH DAILY FOR 15 DAYS 12/18/2023 01/16/2024 Discontinued (Therapy completed)diclofenac sodium 0.01 mg/mg topical gel (20 sources)Nonsteroidal Anti-inflammatory DrugStart: 01-16-2024 End: 41-90-0936oobyhmfxug sodium (VOLTAREN) 1 % gel Indications: Primary osteoarthritis of right shoulder Apply 2 g topically in the morning and 2 g at noon and 2 g in the evening and 2 g before bedtime. 100 g 2 01/16/2024 02/21/2024 Discontinued (Ineffective)Start: 03-21-2023 End: 93-36-0012jisg 1 tablet by mouth in the morningdiclofenac (Voltaren) 75 MG EC tablet Take 75 mg by mouth in the morning and 75 mg before bedtime. 1 ActiveStart: 03-10-2023 End: 10-75-6626lfhehjhskb sodium (VOLTAREN) 1 % gel Indications: Chronic right shoulder pain Apply 2 g topically in the morning and 2 g at noon and 2 g in the evening and 2 g before bedtime. 100 g 2 03/10/2023 01/02/2024 Discontinued (Patient Stopped On Own)DULoxetine 30 mg delayed release oral capsule (6 sources)Serotonin and Norepinephrine Reuptake Inhibitor End: 33-55-8772ahey 1 capsule by mouth once dailyDULoxetine (CYMBALTA) 30 mg capsule Take 1 capsule every day by oral route. 01/02/2024 Discontinued(Patient Stopped On Own)fexofenadine hydrochloride 180 mg oral tablet (11 sources)Histamine-1 Receptor AntagonistStart: 02-23-2024 End: 64-59-8898jprc 1 tablet by mouth once daily as needed for congestion fexofenadine (NEREYDA) 180 mg tablet Indications: Non-seasonal allergic rhinitis, unspecified trigger Take 1 tablet (180 mg total) by mouth daily as needed (congestion). 30 tablet 2 06/05/2024 09/03/2024 Discontinued (Ineffective)Start: 12-21-2022 End: 54-33-2573cmof 1 tablet by mouth in the morningfexofenadine (NEREYDA) 180 mg tablet Take 1 tablet (180 mg total) by mouth in the morning. 12/21/2022 01/02/2024 Discontinued (Patient Stopped On Own)gabapentin 600 mg oral tablet (6 sources)Anti-epileptic AgentStart: 12-08-2022 End: 32-38-0203jjue 1 tablet by mouth three times dailygabapentin (NEURONTIN) 600 mg tablet Take 1 tablet (600 mg total) by mouth 3 (three) times a day. 09/07/2023 Discontinued (Therapy completed)Start: 43-65-3821lokb 1 capsule by mouth in the morning, then take 1 capsule by mouth in the evening, then take 1 capsule by mouth at bedtimegabapentin (Neurontin) 300 MG capsule Take 300 mg by mouth in the morning and 300 mg in the eveningand 300 mg before bedtime. 04/27/2022 Wmlxjb03 hr isosorbide mononitrate 30 mg extended release oral tablet (4 sources)Nitrate VasodilatorStart: 12-18-2023 End: 61-50-0750scjl 1 tablet by mouth once dailyisosorbide mononitrate (IMDUR) 30 mg 24 hr tablet TAKE 1 TABLET BY MOUTH EVERY DAY FOR 15 DAYS 12/18/2023 02/21/2024 Discontinued (Therapy completed)levoFLOXacin 750 mg oral tablet (1 source)Quinolone AntimicrobialStart: 12-18-2023 End: 02-59-6727rzos 1 tablet by mouth once dailylevoFLOXacin (LEVAQUIN) 750 mg tablet TAKE 1 TABLET BY MOUTH DAILY FOR 3 DAYS 12/18/2023 01/02/2024iscontinued (Therapy completed)1 ml methylPREDNISolone acetate 40 mg/ml injection (4 sources)CorticosteroidStart: 02-29-2024 End: 04-58-4092cclatuSFISPOKtivda acetate (DEPO-Medrol) injection 40 mgStart: 02-29-2024 End: 85-96-013812 mg, Intra-articular, Once PRN Procedure, Starting on Tue02/29/24 at 1302, For 1 dosemetoprolol tartrate 25 mg oral tablet (8 sources)beta-Adrenergic BlockerStart: 12-18-2023 End: 07-93-7516acny 1 tablet by mouth twice dailymetoprolol tartrate [...] mg oral tablet (6 sources)Start: 09-23-2023 End: 47-17-6865zati 1 tablet by mouth in the morningsemaglutide (RYBELSUS) 7 mg tablet Indications: Type 2 diabetes mellitus without complication, without long- term current use of insulin ([facility]) Take 7 mg by mouth in the morning. 90 tablet 1 11/18/2023 01/02/2024 Discontinued (Patient Stopped On Own)traMADol hydrochloride 50 mg oral tablet (1 source)Opioid Agonist End: 11-56-5409ipcq 2 tablets by mouth twice dailytraMADoL (ULTRAM) 50 mg tablet Take 2 tablets twice a day by oral route. 09/07/2023 Discontinued (Therapy completed) Problems Active Problems Problem ClassificationProblemDateDocumented DateEpisodic/ChronicAlcohol-related disorders (1 source)Alcohol abuse with intoxication, unspecified; 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: [ALCOHOL ABUSE WITH INTOXICATION UNS]Onset: 42-96-8010RobujeqOafrsb (1 source)Unspecified asthma, uncomplicated; 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: [Unspecified asthma, uncomplicated]Onset: 35-40-8976PhoobmuFuahyci kidney disease (19 sources)Chronic kidney disease stage 3B ; 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: [Stage 3b chronic kidney disease ([facility])]Onset: 950614-76-4899IupfiszToszalh kidney disease (2 sources)Chronic kidney disease; 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: [Chronic kidney disease, stage 3b]Onset: 88-59-9116Qfuqffsjil heart failure; nonhypertensive (20 sources)Chronic combined systolic and diastolic heart failure; 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: [Chronic combined systolic (congestive) and diastolic (congestive) heart failure]Onset: 01-02-2024 Resolved: 382234-36-2948TyuzdeyAlbnfscn atherosclerosis and other heart disease (4 sources)Atherosclerotic heart disease of robinson coronary artery without angina pectoris; 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: [Oldmyocardial infarction]Onset: 11-27-2019 ChronicDiabetes mellitus without complication (20 sources)Type 2 diabetes mellitus without complications; 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: [Type 2 diabetes mellitus without complication]Onset: 25-92-4313GmhyhboBrsdkkugu of lipid metabolism (20 sources)Hyperlipidemia; 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: [Hyperlipidemia, unspecified]Onset: 826875-85-8110SgmpekkLsvpfqwuc hypertension (20 sources)Essential (primary) hypertension; 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: [Essential hypertension]Onset: 082286-35-3344ZivngjoCweofdgdidu of prostate (1 source)Benign prostatic hyperplasia without lower urinary tract symptoms; 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: [BENIGN PROSTATIC HYPRPLASIA WO LUTS]Onset: 72-72-4615Qvrnukj Hypertension with complications and secondary hypertension (2 sources)Hypertensive heart disease with heart failure; 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: [Hypertensive heart disease with heartfailure]Onset: 23-87-6051Ryxhuzq Osteoarthritis (9 sources)Unspecified osteoarthritis, unspecified site; 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: [Osteoarthritis of joint of right shoulder region]Onset: ChronicOther diseases of veins and lymphatics (1 source)Lymphedema, not elsewhere classified; 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: [I89.0 - Lymphedema, not elsewhere classified]Onset: 22-71-2448TsaobmpLjnwb nervous system disorders (1 source)Other chronic pain; 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: [Other chronic pain]Onset: 51-48-3595JehrwqtTtibd non-traumatic joint disorders (2 sources)Pain in right knee; 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: [Pain in joint, lower leg] 64-80-7633NjioowswQgjle non-traumatic joint disorders (2 sources)Ankle pain; 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: [Pain in right ankle and joints of right foot]18-34-9174NqmsbzmrTvdmq non-traumatic joint disorders (2 sources)Disorder of shoulder; 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: [Other specified joint disorders, right shoulder]86-16-9052RicymmwuQhidv nutritional; endocrine; and metabolic disorders (1 source)Obesity, unspecified; 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: [OBESITY UNSPECIFIED]Onset: 62-93-2442HyyeuwlBnnux nutritional; endocrine; and metabolic disorders (3 sources)Morbid (severe) obesity due to excess calories; 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: [MORBID SEVERE OBES D/T EXCESS NAHUN]Onset: 84-89-4695UaeftncNhbyu nutritional; endocrine; and metabolic disorders (1 source)Body mass index (BMI) 60.0-69.9, adult; 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: [BODY MASS INDEX BMI 60.0-69.9 ADULT]Onset: 15-58-7124FmqajwyZpxas nutritional; endocrine; and metabolic disorders (17 sources)Morbid obesity; 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: [Morbid (severe) obesity due to excess calories]Onset: 960951-81-2372NgtetbrZtpls nutritional; endocrine; and metabolic disorders (1 source)Severe obesity; 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: [Morbid (severe) obesity due to excess calories]02-72-6647BtrtsnrSlkty upper respiratory disease (3 sources)Allergic rhinitis; 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: [Other allergic rhinitis]06-05-2024 ChronicUnclassified (1 source)E11.9 - Type 2 diabetes mellitus without complications; 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: [E11.9 - Type 2 diabetes mellitus without complications]Onset: 07-13-2021 Unclassified (1 source)bloating and swelling belly on downOnset: 01-02-2024 Past or Other Problems Problem ClassificationProblemDateDocumented DateEpisodic/ChronicE Codes: Unspecified (1 source)Blood alcohol level of 200-239 mg/100 ml; 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: [BLOOD ALCOHOL LVL 200-239 MG/100 ML]Onset: 65-27-8892CrrbrizbLzaoorlfnznno and screening for infectious disease (5 sources)Patient encounter status; 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: [Encounter for immunization] Onset: 322246-12-3523GuamsreqLhac disorders (15 sources)Mood disordersOnset: 02-21-2024 Resolved: Open wounds of extremities (2 sources)Unspecified open wound, left lower leg, initial encounter; 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: [Unspecified open wound, left lower leg, subsequent encounter] Onset: 12-42-5488MpwrkrnxNghcz aftercare (1 source)Other terminal make up operator (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) drug therapy; 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: [OTH LONG-TERM CURRENT DRUG THERAPY]Onset: 30-16-6433ZfkmmqvqBsxwe aftercare (1 source)USP (current) use of anticoagulants; 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: [LONG-TERM CURRNT USE ANTICOAGULANTS]Onset: 80-49-1325NpzjcfkzIypst connective tissue disease (15 sources)Right rotator cuff syndrome; 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: [Unspecified rotator cuff tear or rupture of right shoulder, not specified as traumatic]Onset: 03-10-2023 69-48-4525QrvbvfmoMbehk diseases of kidney and ureters (1 source)Disorder of kidney and ureter, unspecified; 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: [DISORDER KIDNEY AND URETER UNS]Onset: 49-64-9855IkfxkgvkUvekj injuries and conditions due to external causes (4 sources)Encounter for examination and observation following transport accident; 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: [ENC EXAM ANDOBSERV FLW TRANSPORT ACC]Onset: 11-25-2019 EpisodicOther non-traumatic joint disorders (3 sources)Pain in right shoulder; 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: [Pain in joint, shoulder region]Onset: 506352-78-7107IseduzclLvnhr non-traumatic joint disorders (1 source)Chronic pain of right upper limb; 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: [Pain in right shoulder]06-64-5260VzyvkqstNtwfs screening for suspected conditions (not mental disorders or infectious disease) (3 sources)Encounter for screening for malignant neoplasm of colon; 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: [Encounter for screening formalignant neoplasm of prostate]Onset: 54-03-3827WvuxamvlYjtoi skin disorders (1 source)Other specified disorders of pigmentation; 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: [L81.8 - Other specified disorders of pigmentation]Onset: 30-13-7552TjlvzpmrXzvgpzrct heart disease (1 source)Personal history of pulmonary embolism; Translations: [PERSONAL HISTORY PULMONARY EMBOLISM]Onset: 09-63-1034DefcbjgqCfmzubrzgmu; intervertebral disc disorders; other back problems (4 sources)Low back pain; Translations: [LOW BACK PAIN]Onset: 40-58-6066Zpzfstwx Varicose veins of lower extremity (1 source)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; Translations: [I83.899 - 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]Onset: 35-45-4470Mfgpccbq Results Test NameValueInterpretationReference AmaowGzkgkgvc41lo 48-85-844804Xrjaijtu by: JAYA BARBER on: 01/21/2025 02:02 PM Modules accepted: OrdersNormalUniversity of Crescent Medical Center LancasterOffice Visiton 03-78-3769Ieapws-up [id number] Cristobal Garcia 1965 M Date Provider Department Center 01/21/2025 [id number], ADAM [facility] Abdiel Hos Family History Problem Relation Age of Onset Coronary artery disease Mother Diabetes Father Family Status - Relation Status Age at Mother Father Level of Service:[address] [place] OFFICE/OUTPATIENT ESTABLISHED MOD [facility] 30 [facility]COMPREHENSIVE METABOLIC PANELon 09-03-2024 Albumin [Mass/Vol]4.1 g/dLNormal3.2-5.3Pro[facility]ipon HospitalComment on above:Performed By: #### TEMITOPE, 05494-3 #### [facility] ([id number]) [address], [address] [place], [place] [address]MGB [Catalytic activity/Vol]126 U/YDhtfza03-129LncNsgmpv [facility] HospitalComment on above:Performed By: #### TEMITOPE, 14478-5 #### [facility] ([id number]) [address], [address] [place], [place] [address]PFS [Catalytic activity/Vol]17 U/LNormal0-40Pro[facility]on HospitalComment on above:Performed By: #### TEMITOPE, 48999-7 #### [facility] ([id number]) [address], [address] [place], [place] [address]Trqqu gap [Moles/Vol]9 mmol/LNormal5-15ProOhio State East Hospitalca [facility] Comment on above:Performed By: #### TEMITOPE, 77622-4 #### [facility] ([id number]) [address], [address] [place], [place] [address]SUI [Catalytic activity/Vol]15 U/LNormal0-41ProMedica Mcmanus HospitalComment on above:Performed By: #### TEMITOPE, 58701-0 #### [facility] ([id number]) [address], [address] [place], [place] [address]Jmvakbdyb [Mass/Vol]0.6 mg/dLNormal0.3-1.2ProMedica [facility]ipon HospitalComment on above:Performed By: #### TEMITOPE, 36934-3 #### [facility] ([id number]) [address] [place], [place] [address]Nfamcfp [Mass/Vol]9.4 mg/dLNormal8.5-10.5PParkview Health Montpelier HospitalComment on above:Performed By: #### TEMITOPE, 19590-2 #### [facility] ([id number]) [address], [address] [place], [place] [address]Nkbnhpqe [Moles/Vol]101 mmol/ZJhrpib18-821GaqXclruh [place] HospitalComment on above:Performed By: #### TEMITOPE, 33163-9 #### [facility] ([id number]) [address], [address] [place], [place] [address]SL0 [Moles/Vol]29 mmol/ARnovow07-42MqyRlzpkcParkview Health [facility]ier Hospital Comment on above:Performed By: #### TEMITOPE, 46957-2 #### [facility] ([id number]) [address], [address] [place], [place] [address]Uvayqhjnbz [Mass/Vol]1.11 mg/dLNormal0.60-1.30ProCleveland Clinic Marymount HospitalComment on above:Result Comment: METHOD TRACEABLE TO IDMS STANDARD Performed By: #### TEMITOPE, 42838-1 #### [facility] ([id number]) [address] [place], [place] [address]JBL/1.73 sq M.predicted among non-blacks MDRD (S/P/Bld) [Vol rate/Area]76 mL/min/{1.73_m2}Normal>59ProCleveland Clinic Marymount HospitalComment on above: Result Comment: Reported eGFR is based on the CKD-EPI 2020 equation that does not use a race coefficient.Performed By: #### TEMITOPE, 81104-8 #### [facility] ([id number]) [address], [address] [place], [place] [address]Mjlxtju [Mass/Vol]155 mg/vBCfyw80-12KouLbhjyqMount [address] [facility] Comment on above:Performed By: #### TEMITOPE, 16371-1 #### [facility] ([id number]) [address], [address] [place], [place] [address]Ffosapxqn [Moles/Vol]4.9 mmol/LNormal3.5-5.0ProCleveland Clinic Marymount HospitalComment on above:Performed By: #### TEMITOPE, 24296-2 #### [facility] ([id number]) [address], [address] [place], [place] [address]Dgfuaqu [Mass/Vol]7.3 g/dLNormal6.0-8.0ProC[facility] Clinic [facility] Comment on above:Performed By: #### TEMITOPE, 14835-1 #### [facility] ([id number]) [address], [address] [place], [place] [address]Boxhaq [Moles/Vol]139 mmol/UItggij970-645QsbKtpeiv [facility] HospitalComment on above:Performed By: #### TEMITOPE, 97761-2 #### [facility] ([id number]) [address], [address] [place], [place] [address]Saqd nitrogen [Mass/Vol]26 mg/dLHigh5-23ProCleveland Clinic Marymount HospitalComment on above:Performed By: #### TEMITOPE, 99024-9 #### [facility] ([id number]) [address], [address] [place], [place] [address]Svkxebcxcwxtk metabolic panelon 54-79-5242Hplwyok [Mass/Vol]4.1 g/dL3.2 - 5.3 g/dLProMedica Health SystemALP [Catalytic activity/Vol]126 U/L39 - 130 U/LProMedica Health SystemALT No additional P-5'-P [Catalytic activity/Vol] 17 U/L0 - 40 U/LProMedica Health SystemAnion gap [Moles/Vol]9 mmol/L5 - 15 mmol/LProMedica Health SystemAST [Catalytic activity/Vol]15 U/L0 - 41 U/L [facility] Health SystemBilirubin [Mass/Vol]0.6 mg/dL0.3 - 1.2 mg/dLWyandot Memorial HospitalCalcium [Mass/Vol]9.4 mg/dL8.5 - 10.5 mg/dLWyandot Memorial Hospital Chloride [Moles/Vol]101 mmol/L98 - 109 mmol/[facility] SystemCO2 [Moles/Vol]29 mmol/L22 - 32 mmol/[facility] CenterCreatinine [Mass/Vol] 1.11 mg/dL0.60 - 1.30 mg/dLWyandot Memorial HospitalComment on above:METHOD TRACEABLE TO IDCO STANDARDeGFR (CKD-EPI)non-race risyonguz34- [facility] HospitalComment on above: Reported eGFR is based on the CKD-EPI 2020 equation that does not use a race coefficient. Glucose [Mass/Vol]155 mg/vIStvj80 - 99 mg/dLWyandot Memorial Hospital Interpretation and review of laboratory resultsAbnoCritical access hospital Potassium [Moles/Vol]4.9 mmol/L3.5 - 5.0 mmol/[facility] Medical CenterProtein [Mass/Vol]7.3 g/dL6.0 - 8.0 g/dLNovant Health Pender Medical Centerodium [Moles/Vol]139 mmol/L134 - 146 mmol/[facility] Medical CenterUrea nitrogen [Mass/Vol]26 mg/dL High5 - 23 mg/dLEncompass Health Rehabilitation Hospital of Nittany ValleyHGB A1C (GLYCO-HGB)on 82-18-3706Wiomcgn [Mass/Vol]151 mg/dLNoSelect Medical TriHealth Rehabilitation HospitalComment on above:Performed By: #### [facility], 12679-5 #### [facility] ([id number]) [address] [place] [address], [address] [place], [place] [address]QwS8a (Bld) [Mass fraction]6.9 %High4.4-5.6Mount St. Mary HospitalComment on above:Result Comment: NOTE ADA Guidelines Result HgbA1c Normal : less than 5.7 % Prediabetes : 5.7 % to 6.4 % Diabetes : > 6.4 % Use with caution in patients with abnormal hemoglobin variants as the half-life of red blood cells and in vivo glycation rates are affected.Performed By: #### TEMITOPE, 45272-8 #### [facility] ([id number]) [address], [address] [place], [place] [address]Wqovophucu A1con 31-52-8738Uxjgcfe glucose Estimated from glycated hemoglobin (Bld) [Mass/Vol]151 mg/dLWyandot Memorial HospitalHbA1c (Bld) [Mass fraction]6.9 %High4.4 - 5.6 %Wyandot Memorial HospitalComment on above:NOTE ADA Guidelines Result HgbA1c Normal : less than 5.7 % Prediabetes : 5.7 % to 6.4 % Diabetes : > 6.4 % Use with caution in patients with abnormal hemoglobin variants as the half-life of red blood cells and in vivo glycation rates are affected. Interpretation and review of laboratory resultsAbnormalClarion HospitalCOMPREHENSIVE METABOLIC PANELon 31-82-9308Gbjzndn [Mass/Vol]3.6 g/dLNormal3.2-5.3Pro[facility]ica [facility] Atrium Medical CenterComment on above: Performed By: #### TEMITOPE, HA1C #### [facility] ([id number]) [address], [address] [place], [place] [address]UDP [Catalytic activity/Vol]117 U/HYoafgs85-608EbsRwoiwo [place] HospitalComment on above:Performed By: #### TEMITOPE, HA1C #### [facility] ([id number]) [address], [address] [place], [place] [address]KIK [Catalytic activity/Vol]16 U/LNormal0-40ProCleveland Clinic Marymount HospitalComment on above:Performed By: #### TEMITOPE, HA1C #### [facility] ([id number]) [address], [address] [place], [place] [address]Jxpxv gap [Moles/Vol]7 mmol/LNormal5-15ProSheltering Arms Hospital Hospital Comment on above:Performed By: #### TEMITOPE, HA1C #### [facility] ([id number]) [address], [address] [place], [place] [address]JAF [Catalytic activity/Vol]14 U/LNormal0-41ProEast [facility] Medical Center Mcmanus HospitalComment on above:Performed By: #### TEMITOPE, HA1C #### [facility] ([id number]) [address], [address] [place], [place] [address]Llktcwdiw [Mass/Vol]0.6 mg/dLNormal0.3-1.2ProMedMercy Health St. Vincent Medical Center HospitalComment on above:Performed By: #### TEMITOPE, HA1C #### [facility] ([id number]) [address], [address] [place], [place] [address]Dkinfel [Mass/Vol]8.8 mg/dLNormal8.5-10.5ProMedMercy Health St. Vincent Medical Center HospitalComment on above:Performed By: #### TEMITOPE, HA1C #### [facility] ([id number]) [address], [address] [place], [place] [address]Fegyttjm [Moles/Vol]107 mmol/TDxhabd22-452IghGjnhkk [place] HospitalComment on above:Performed By: #### TEMITOPE, HA1C #### [facility] ([id number]) [address], [address] [place], [place] [address]NP7 [Moles/Vol]28 mmol/ZOyfjuj85-89WrqZkfwni [facility] Comment on above:Performed By: #### CMP, HA1C #### [facility] ([id number]) [address], [address] [place], [place] [address]Npqaxsbqpb [Mass/Vol]1.11 mg/dLNormal0.60-1.30ProOhio State East Hospitalca Mcmanus HospitalComment on above:Result Comment: METHOD TRACEABLE TO IDMS STANDARD Performed By: #### CMP, HA1C #### [facility] ([id number]) [address], [address] [place], [place] [address]JBW/1.73 sq M.predicted among non-blacks MDRD (S/P/Bld) [Vol rate/Area]76 mL/min/{1.73_m2}Normal>59ProCleveland Clinic Marymount HospitalComment on above: Result Comment: Reported eGFR is based on the CKD-EPI 2020 equation that does not use a race coefficient.Performed By: #### TEMITOPE, WILLY #### [facility] ([id number]) [address], [address] [place], [place] [address]Qduetic [Mass/Vol]156 mg/aCAijm51-09SkdHzegnjMount St. Mary Hospital Comment on above:Performed By: #### WILLY LINN #### [facility] ([id number]) [address], [address] [place], [place] [address]Wgucnbaud [Moles/Vol]4.7 mmol/LNormal3.5-5.0ProCleveland Clinic Marymount HospitalComment on above:Performed By: #### TEMITOPE, HAMaria De Jesus #### [facility] ([id number]) [address], [address] [place], [place] [address]Qoqgmpk [Mass/Vol]6.8 g/dLNormal6.0-8.0[facility] Comment on above:Performed By: #### TEMITOPE, HA1C #### [facility] ([id number]) [address], [address] [place], [place] [address]Ebkcvq [Moles/Vol]142 mmol/WQlczfl549-380TlcFfampm [place] HospitalComment on above:Performed By: #### TEMITOPE, HA1C #### [facility] ([id number]) [address], [address] [place], [place] [address]Iqff nitrogen [Mass/Vol]24 mg/dLHigh5-23ProSheltering Arms Hospital HospitalComment on above:Performed By: #### TEMITOPE, HA1C #### [facility] ([id number]) [address] [place], [place] [address]Geqtepqvggkdq metabolic panelon 85-83-2596Ekfwenc [Mass/Vol]3.6 g/dL3.2 - 5.3 g/dLProEast Alabama Medical Center Health SystemALP [Catalytic activity/Vol]117 U/L39 - 130 U/LProMedica Health SystemALT No additional P-5'-P [Catalytic activity/Vol] 16 U/L0 - 40 U/LProMedica Health SystemAnion gap [Moles/Vol]7 mmol/L5 - 15 mmol/LProMedica Health SystemAST [Catalytic activity/Vol]14 U/L0 - 41 U/L ProMUnited Hospital SystemBilirubin [Mass/Vol]0.6 mg/dL0.3 - 1.2 mg/dLDiley Ridge Medical Center SystemCalcium [Mass/Vol]8.8 mg/dL8.5 - 10.5 mg/dLDiley Ridge Medical Center System Chloride [Moles/Vol]107 mmol/L98 - 109 mmol/LPrOzarks Community Hospitalica Health SystemCO2 [Moles/Vol]28 mmol/L22 - 32 mmol/LPrOzarks Community Hospitalica Health SystemCreatinine [Mass/Vol] 1.11 mg/dL0.60 - 1.30 mg/dLDiley Ridge Medical Center SystemComment on above:METHOD TRACEABLE TO [facility] STANDARDeGFR (CKD-EPI)non-race mqkbujaij97- [facility] HospitalComment on above: Reported eGFR is based on the CKD-EPI 2020 equation that does not use a race coefficient. Glucose [Mass/Vol]156 mg/pANxcn83 - 99 mg/dLDiley Ridge Medical Center System Interpretation and review of laboratory resultsAbnormalDiley Ridge Medical Center System Potassium [Moles/Vol]4.7 mmol/L3.5 - 5.0 mmol/LProMedica Health SystemProtein [Mass/Vol]6.8 g/dL6.0 - 8.0 g/dLDiley Ridge Medical Center SystemSodium [Moles/Vol]142 mmol/L134 - 146 mmol/LPrOzarks Community Hospitalica Health SystemUrea nitrogen [Mass/Vol]24 mg/dL High5 - 23 mg/dLDiley Ridge Medical Center SystemProLima City Hospital SystemHGB A1C (GLYCO-HGB)on 39-45-8180Yetwiai [Mass/Vol]143 mg/dLNormalProCleveland Clinic Marymount HospitalComment on above:Performed By: #### TEMITOPE, 42568-5 #### [facility] ([id number]) [address] [place] [address], [address] [place], [place] [address]RdY8e (Bld) [Mass fraction]6.6 %High4.4-5.6ProCleveland Clinic Marymount HospitalComment on above:Result Comment: NOTE ADA Guidelines Result HgbA1c Normal : less than 5.7 % Prediabetes : 5.7 % to 6.4 % Diabetes : > 6.4 % Use with caution in patients with abnormal hemoglobin variants as the half-life of red blood cells and in vivo glycation rates are affected.Performed By: #### TEMITOPE, 68144-5 #### [facility] ([id number]) [address] [place] [address], [address] [place], [place] [address]Vbjknlvn specific Ag [Mass/Vol]on 65-88-1807OqcHmsnfq Health SystemPSA SCREEN0.27 ng/mLNormal0.00-4.00Mount St. Mary HospitalComment on above:Result Comment: The method used for this test is Timmy Billings DXI chemiluminescent immunoassay. Values obtained by different assay methods cannot be used interchangeably.Performed By: #### TEMITOPE, 21195-9 #### [facility] ([id number]) [address] [place] [address], [address] [place], [place] [address]Kpnpmkxdt specific antigen screenon 50-91-9690Jdilslue specific Ag [Mass/Vol]0.27 ng/mL0.00 - 4.00 ng/mLWyandot Memorial HospitalComment on above: The method used for this test is Timmy [place] DXI chemiluminescent immunoassay. Values obtained by different assay methods cannot be used interchangeably. No Panel Informationon 31-16-4266Sxiiu B Apling, SERVICE TECHNICIAN 02/29/2024 1:06 PM L Inj/Asp: R subacromial bursa on 02/29/2024 1:02 PM Indications: pain Details: 20 G needle, posterior approach Medications: 40 mg methylPREDNISolone acetate 40 MG/ML Utilizing aseptic technique with universal precautions . Pt given injection Right Shoulder SA space Procedure, treatment alternatives, risks and benefits explained, specific risks discussed. Consent was given by the patient. [facility] BaptistMICROALBUMIN - ALBUMIN:CREATININE URINE RATIOon 04-12-8650OSU/CREAT RATIO16.6 mg/g creatNormal0.0-30.0[facility] Comment on above:Performed By: #### JACKI #### [facility] ([id number]) [address], [address] [place], [place] [address]Ibdsnlw DL <= 20 mg/L (U) [Mass/Vol]2.2 mg/dLHigh0.0-1.9 [facility]rium Medical CenterComment on above:Performed By: #### JACKI #### [facility] ([id number]) [address], [address] [place], [place] [address]PREHF CLGCB486.81 mg/dLNormalProSheltering Arms Hospital HospitalComment on above:Performed By: #### JACKI #### [facility] ([id number]) [address], [address] [place], [place] [address]RRW AND AUTO DIFFon 46-24-1014OROQFXQT BASOPHIL0.0 X10E9/LNormal 0.0-0.2ProMedica [facility] HospitalComment on above:Performed By: #### TEMITOPE COLES, 32701-0, , HA1C #### [facility] ([id number]) [address], [address] [place], [place] [address]XCNNVGJX NEUTROPHIL5.2 X10E9/LNormal1.5-6.6ProOhio State East Hospitalca [facility] HospitalComment on above:Performed By: #### TEMITOPE COLES, 97886-2, , HA1C #### [facility] ([id number]) [address], [address] [place], [place] [address]Sihmwziqf/100 WBC (Bld)0.5 %NormalMount St. Mary Hospital Comment on above:Performed By: #### CBCA CMP, , , HA1C #### [facility] ([id number]) [address], [address] [place], [place] [address]Jvkkhtsvssr (Bld) [#/Vol]0.2 10*3/uLNormal0.0-0.4ProSheltering Arms Hospital HospitalComment on above:Performed By: #### CBCA, CMP, , , HA1C #### [facility] ([id number]) [address], [address] [place], [place] [address]Ydjzpxzlpzn/100 WBC (Bld)2.6 %NormalMount St. Mary Hospital Comment on above:Performed By: #### CBCCuca CMP, , , HA1C #### [facility] ([id number]) [address], [address] [place], [place] [address]Awioyhmmnvl distribution width (RBC) [Ratio]16.5 %High11.5-15.0 ProMselect specialty hospitala [place]ip[place] HospitalComment on above:Performed By: #### CBCA, CMP, , , HA1C #### [facility] ([id number]) [address], [address] [place], [place] [address]Ckwileqfvd (Bld) [Volume fraction]37.1 %Xrw55-01MblYlcttd [place] HospitalComment on above:Performed By: #### CBCA, CMP, , , HA1C #### [facility] ([id number]) [address], [address] [place], [place] [address]Fsdvfkmjfr (Bld) [Mass/Vol]11.7 g/dLLow13.0-17.0ProSheltering Arms Hospital HospitalComment on above:Performed By: #### CBCA, CMP, , , HA1C #### [facility] ([id number]) [address], [address] [place], [place] [address]Ldziifepiiu (Bld) [#/Vol]1.3 10*3/uLNormal1.0-3.5PParkview Health Montpelier HospitalComment on above:Performed By: #### CBCCuca, CMP, , , HA1C #### [facility] ([id number]) [address], [address] [place], [place] [address]Gvlcilkxyib/100 WBC (Bld)18.5 %NormalMount St. Mary Hospital Comment on above:Performed By: #### CBCCuca, TEMITOPE, , , HA1C #### [facility] ([id number]) [address], [address] [place], [place] [address]XII (RBC) [Entitic mass]25.5 ppIks50-15YmnQfmoqcMount St. Mary Hospital Comment on above:Performed By: #### CBCTEMITOPE Thurman, , , HA1C #### [facility] ([id number]) [address], [address] [place], [place] [address]GGUH (RBC) [Mass/Vol]31.6 g/iBByq36-52AkjYubvowMount St. Mary Hospital Comment on above:Performed By: #### CBCA, CMP, , , HA1C #### [facility] ([id number]) [address], [address] [place], [place] [address]MFZ (RBC) [Entitic vol]81 aQAdihcc82-087LvpXsprliMount St. Mary HospitalComment on above:Performed By: #### CBCA, CMP, , , HA1C #### [facility] ([id number]) [address], [address] [place], [place] [address]Rymjeyzdb (Bld) [#/Vol]0.3 10*3/uLNormal0-0.9ProCleveland Clinic Marymount HospitalComment on above:Performed By: #### CBCCuca, CMP, 57472-4, , HA1C #### [facility] ([id number]) [address], [address] [place], [place] [address]Rgdapolhh/100 WBC (Bld)4.9 %NormalMount St. Mary Hospital Comment on above:Performed By: #### CBCA, CMP, 94452-1, , HA1C #### [facility] ([id number]) [address], [address] [place], [place] [address]Thceydypoos/100 WBC (Bld)73.5 %[facility] Comment on above:Performed By: #### CBCCuca, CMP, , , HA1C #### [facility] ([id number]) [address], [address] [place], [place] [address]Javcwtnf mean volume (Bld) [Entitic vol]7.9 fLNormal7-12 ProMWood County HospitalComment on above:Performed By: #### CBCCuca, CMP, , , HA1C #### [facility] ([id number]) [address], [address] [place], [place] [address]Rtwaitgjl (Bld) [#/Vol]240 10*3/oULhygmb405-102WszRlpcvp [place] HospitalComment on above:Performed By: #### CBCA, CMP, 95045-5, , HA1C #### [facility] ([id number]) [address], [address] [place], [place] [address]FMJ COUNT4.61 X10E12/LNormal4.10-5.70[facility] Comment on above:Performed By: #### CBCA, CMP, , , HA1C #### [facility] ([id number]) [address], [address] [place], [place] [address]CXT (Bld) [#/Vol]7.1 10*3/uLNormal4.0-11.0ProMedica Mcmanus HospitalComment on above:Performed By: #### TEMITOPE COLES, 42050-0, , HA1C #### [facility] ([id number]) [address], [address] [place], [place] [address]GBLRJTYLPGFUZ METABOLIC PANELon 12-18-7349Oymtblc [Mass/Vol]3.6 g/dLNormal3.2-5.3ProMedica Mcmanus HospitalComment on above:Performed By: #### TEMITOPE COLES, 99635-3, , HA1C #### [facility] ([id number]) [address], [address] [place], [place] [address]QPR [Catalytic activity/Vol]121 U/ZQozsmq54-183HohPmgefq [facility] HospitalComment on above:Performed By: #### TEMITOPE COLES, 37798-3, , HA1C #### [facility] ([id number]) [address], [address] [place], [place] [address]RWI [Catalytic activity/Vol]26 U/LNormal0-40ProMedica [facility] HospitalComment on above:Performed By: #### TEMITOPE COLES, 15707-1, , HA1C #### [facility] ([id number]) [address], [address] [place], [place] [address]Cwvvp gap [Moles/Vol]9 mmol/LNormal5-15[facility] Comment on above:Performed By: #### SANKET CMP, 05512-7, , HA1C #### [facility] ([id number]) [address], [address] [place], [place] [address]HWY [Catalytic activity/Vol]20 U/LNormal0-41ProMedica [facility] HospitalComment on above:Performed By: #### TEMITOPE COLES, 01910-3, , HA1C #### [facility] ([id number]) [address], [address] [place], [place] [address]Hcbshslkr [Mass/Vol]0.7 mg/dLNormal0.3-1.2ProMedMercy Health St. [facility] HospitalComment on above:Performed By: #### TEMITOPE COLES, , , HA1C #### [facility] ([id number]) [address], [address] [place], [place] [address]Ukmimeq [Mass/Vol]9.2 mg/dLNormal8.5-10.5PParkview Health Bryan Hospital HospitalComment on above:Performed By: #### TEMITOPE COLES, , , HA1C #### [facility] ([id number]) [address], [address] [place], [place] [address]Menrecgt [Moles/Vol]106 mmol/NNuvqso88-103VfeWloxmm [place] HospitalComment on above:Performed By: #### TEMITOPE COLES, , , HA1C #### [facility] ([id number]) [address], [address] [place], [place] [address]FQ0 [Moles/Vol]28 mmol/CAcffso67-85McxUmatgo [facility] Comment on above:Performed By: #### TEMITOPE COLES, , , HA1C #### [facility] ([id number]) [address], [address] [place], [place] [address]Yjaudgrqin [Mass/Vol]1.19 mg/dLNormal0.60-1.30ProOhio State East Hospitalca [facility] HospitalComment on above:Result Comment: METHOD TRACEABLE TO IDMS STANDARD Performed By: #### TEMITOPE COLES, , , HA1C #### [facility] ([id number]) [address], [address] [place], [place] [address]FER/1.73 sq M.predicted among non-blacks MDRD (S/P/Bld) [Vol rate/Area]70 mL/min/{1.73_m2}Normal>59ProCleveland Clinic Marymount HospitalComment on above: Result Comment: Reported eGFR is based on the CKD-EPI 2020 equation that does not use a race coefficient.Performed By: #### TEMITOPE COLES, , , HA1C #### [facility] ([id number]) [address], [address] [place], [place] [address]Mmkpche [Mass/Vol]130 mg/jQTvpl84-75LwyVkeydzMount St. Mary Hospital Comment on above:Performed By: #### TEMITOPE COLES, , , HA1C #### [facility] ([id number]) [address], [address] [place], [place] [address]Xwaxnxeeb [Moles/Vol]4.8 mmol/LNormal3.5-5.0ProCleveland Clinic Marymount HospitalComment on above:Performed By: #### TEMITOPE COLES, , , HA1C #### [facility] ([id number]) [address], [address] [place], [place] [address]Coyevwv [Mass/Vol]7.0 g/dLNormal6.0-8.0[facility] Comment on above:Performed By: #### TEMITOPE COLES, , , HA1C #### [facility] ([id number]) [address], [address] [place], [place] [address]Khggku [Moles/Vol]143 mmol/QTnhfyh606-651VwnSeqsta [place] HospitalComment on above:Performed By: #### TEMITOPE COLES, , , HA1C #### [facility] ([id number]) [address], [address] [place], [place] [address]Elun nitrogen [Mass/Vol]31 mg/dLHigh5-23ProCleveland Clinic Marymount HospitalComment on above:Performed By: #### TEMITOPE COLES, 67497-4, 22320-4, HA1C #### [facility] ([id number]) [address] [place], [place] [address]KOV A1C (GLYCO-HGB)on 05-96-8650Tijsswm [Mass/Vol]157 mg/dL NormalProCleveland Clinic Marymount HospitalComment on above:Performed By: #### TEMITOPE COLES, 50852-9, , YOSI1C #### [facility] ([id number]) [address] [place], [place] [address]PlY6d (Bld) [Mass fraction]7.1 %High4.4-5.6ProCleveland Clinic Marymount HospitalComment on above:Result Comment: NOTE ADA Guidelines Result HgbA1c Normal : less than 5.7 % Prediabetes : 5.7 % to 6.4 % Diabetes : > 6.4 % Use with caution in patients with abnormal hemoglobin variants as the half-life of red blood cells and in vivo glycation rates are affected.Performed By: #### TEMITOPE COLES, 08547-7, , HA1C #### [facility] ([id number]) [address], [address] [place], [place] [address]Vndjm 1996 panelon 27-21-2010Bbbbjgbwccs [Mass/Vol]77 mg/dLLow 150-200ProCleveland Clinic Marymount HospitalComment on above:Performed By: #### TEMITOPE COLES, 54607-4, , HA1C #### [facility] ([id number]) [address] [place], [place] [address]Qjilpldksnk in HDL [Mass/Vol]27 mg/dLLow>39ProSheltering [facility] HospitalComment on above:Result Comment: HDL <40 mg/dL - High Risk HDL > or = 40mg/dL- Desirable HDL >60 mg/dL - Negative Risk Performed By: ###Son COLES CMP, 89315-8, , HA1C #### [facility] ([id number]) [address], [address] [place], [place] [address]Kzeewigsdsl in LDL [Mass/Vol]35 mg/dLNormal<130ProShel[facility] HospitalComment on above:Result Comment: LDL <100 mg/dL - Desirable LDL >160 mg/dL - High Risk Performed By: ###Son COLES CMP, 02199-5, , HA1C #### [facility] ([id number]) [address], [address] [place], [place] [address]Nbdxoqqzmyt in VLDL [Mass/Vol]15 mg/dLNormal0-30ProS[facility] HospitalComment on above:Performed By: ###Son COLES CMP, 45597-4, , HA1C #### [facility] ([id number]) [address], [address] [place], [place] [address]XUPPJKGFAXC:HDL2.4Uimeik9.0-5.0ProShel[facility] HospitalComment on above:Performed By: ###Son COLES CMP, 21811-4, , HA1C #### [facility] ([id number]) [address], [address] [place], [place] [address]Uyilygdatljs [Mass/Vol]75 mg/dHMachyw49-407WyaHpgrsp [facility]us HospitalComment on above:Performed By: #### TEMITOPE COLES, 75757-6, , HA1C #### [facility] ([id number]) [address], [address] [place] [address]RQMAJEPCTnj 73-41-6473Ihdhrjcmo [Mass/Vol]1.9 mg/dLNormal1.8-2.6 [facility] HospitalComment on above:Performed By: #### TEMITOPE COLES, 73943-2, , HA1C #### [facility] ([id number]) [address], [address] [place], [place] [address]VSJLUKUCAORTN METABOLIC PANELon [id number] [Mass/Vol]3.8 g/dLNormal3.2-5.3[facility] HospitalComment on above:Performed By: #### TEMITOPE, 76581-0 #### [facility] ([id number]) [address], [address] [place], [place] [address]WSR [Catalytic activity/Vol]101 U/XEaizqi09-802AvwGkxvqe Mcmanus HospitalComment on above:Performed By: #### TEMITOPE, 70902-1 #### [facility] ([id number]) [address], [address] [place], [place] [address]SRD [Catalytic activity/Vol]14 U/LNormal0-40[facility] HospitalComment on above:Performed By: #### TEMITOPE, 28878-7 #### [facility] ([id number]) [address], [address] [place], [place] [address]Grgop gap [Moles/Vol]8 mmol/LNormal5-15[facility] Comment on above:Performed By: #### TEMITOPE, 26001-2 #### [facility] ([id number]) [address], [address] [place], [place] [address]XTF [Catalytic activity/Vol]14 U/LNormal0-41Pro[facility] Hospitalca [facility]us HospitalComment on above:Performed By: #### TEMITOPE, 35734-1 #### [facility] ([id number]) [address], [address] [place], [place] [address]Bjxbbratm [Mass/Vol]0.6 mg/dLNormal0.3-1.2PPark[facility] HospitalComment on above:Performed By: #### TEMITOPE, 73848-6 #### [facility] ([id number]) [address], [address] [place], [place] [address]Uwsmcvf [Mass/Vol]8.8 mg/dLNormal8.5-10.5PPark[facility] HospitalComment on above:Performed By: #### TEMITOPE, 74834-0 #### [facility] ([id number]) [address], [address] [place], [place] [address]Jekowwrn [Moles/Vol]100 mmol/SAhljgr79-836KniQixwqv [place] HospitalComment on above:Performed By: #### TEMITOPE, 60257-9 #### [facility] ([id number]) [address], [address] [place], [place] [address]WN1 [Moles/Vol]31 mmol/GJkibkr57-12PdpMgjfle [facility] Comment on above:Performed By: #### TEMITOPE, 14138-9 #### [facility] ([id number]) [address], [address] [place], [place] [address]Dcebzuehfd [Mass/Vol]1.29 mg/dLNormal0.60-1.30Pro[facility]manus HospitalComment on above:Result Comment: METHOD TRACEABLE TO IDMS STANDARD Performed By: #### TEMITOPE, 12195-0 #### [facility] ([id number]) [address], [address] [place], [place] [address]FWK/1.73 sq M.predicted among non-blacks MDRD (S/P/Bld) [Vol rate/Area]64 mL/min/{1.73_m2}Normal>59ProCleveland Clinic Marymount HospitalComment on above: Result Comment: Reported eGFR is based on the CKD-EPI 2020 equation that does not use a race coefficient.Performed By: #### TEMITOPE, 66992-3 #### [facility] ([id number]) [address], [address] [place], [place] [address]Juetqxo [Mass/Vol]119 mg/cQMtwj94-97DddYludfuCleveland Clinic Marymount Hospital Comment on above:Performed By: #### [place], 26112-2 #### [facility] ([id number]) [address], [address] [place], [place] [address]Iidhztgjm [Moles/Vol]4.4 mmol/LNormal3.5-5.0ProCleveland Clinic Marymount HospitalComment on above:Performed By: #### [place], 76131-5 #### [facility] ([id number]) [address], [address] [place], [place] [address]Orsarfq [Mass/Vol]7.2 g/dLNormal6.0-8.0[facility] Comment on above:Performed By: #### [place], 09670-4 #### [facility] ([id number]) [address], [address] [place], [place] [address]Nvneoo [Moles/Vol]139 mmol/NXjzyae198-440KzqMbeijx Toledo HospitalComment on above:Performed By: #### [place], 46840-4 #### [facility] ([id number]) [address], [address] [place], [place] [address]Aafc nitrogen [Mass/Vol]21 mg/dLNormal5-23ProCleveland Clinic Marymount HospitalComment on above:Performed By: #### [place], 25718-9 #### [facility] ([id number]) [address], [address] [place], [place] [address]Asofxznmcvcaa metabolic panelon [id number] [Mass/Vol]3.8 g/dL3.2 - 5.3 g/dLProLima City Hospital SystemALP [Catalytic activity/Vol]101 U/L39 - 130 U/[facility] SystemALT No additional P-5'-P [Catalytic activity/Vol] 14 U/L0 - 40 U/[facility] SystemAnion gap [Moles/Vol]8 mmol/L5 - 15 mmol/LPrOrthoColorado Hospital at St. [facility] Health SystemAST [Catalytic activity/Vol]14 U/L0 - 41 U/L [facility] HospitalBilirubin [Mass/Vol]0.6 mg/dL0.3 - 1.2 mg/dLDiley Ridge Medical Center SystemCalcium [Mass/Vol]8.8 mg/dL8.5 - 10.5 mg/dLWyandot Memorial Hospital Chloride [Moles/Vol]100 mmol/L98 - 109 mmol/[facility] SystemCO2 [Moles/Vol]31 mmol/L22 - 32 mmol/[facility] SystemCreatinine [Mass/Vol] 1.29 mg/dL0.60 - 1.30 mg/dLWyandot Memorial HospitalComment on above:METHOD TRACEABLE TO [facility] STANDARDeGFR (CKD-EPI)non-race nozhanqiu80- [facility] HospitalComment on above: Reported eGFR is based on the CKD-EPI 2020 equation that does not use a race coefficient. Glucose [Mass/Vol]119 mg/aDOfpa35 - 99 mg/dLWyandot Memorial HospitalPotassium [Moles/Vol]4.4 mmol/L3.5 - 5.0 mmol/[facility] SystemProtein [Mass/Vol] 7.2 g/dL6.0 - 8.0 g/dLNovant Health Pender Medical Centerodium [Moles/Vol]139 mmol/L134 - 146 mmol/[facility] SystemUrea nitrogen [Mass/Vol]21 mg/dL5 - 23 mg/dL [facility] HospitalHGB A1C (GLYCO-HGB)on [id number] [Mass/Vol]134 mg/dLNoSelect Medical TriHealth Rehabilitation HospitalComment on above:Performed By: #### [facility], [address]62-3 #### [facility] ([id number]) [address], [address] [place], [place] [address]SpM9a (Bld) [Mass fraction]6.3 %High4.4-5.6Mount St. Mary HospitalComment on above:Result Comment: NOTE ADA Guidelines Result HgbA1c Normal : less than 5.7 % Prediabetes : 5.7 % to 6.4 % Diabetes : > 6.4 % Use with caution in patients with abnormal hemoglobin variants as the half-life of red blood cells and in vivo glycation rates are affected.Performed By: #### [facility], 05038-9 #### [facility] ([id number]) [facility]0 [facility], [address] [place], [place] [address]Dwstw 1995 panelon [id number] [Mass/Vol]145 mg/dLLow 150 - 200 mg/dLWyandot Memorial HospitalCholesterol in HDL [Mass/Vol]30 mg/dLLow39 - PINF mg/dLWyandot Memorial HospitalComment on above: HDL <40 mg/dL - High Risk HDL > or = 40mg/dL- Desirable HDL >60 mg/dL - Negative Risk Cholesterol in LDL [Mass/Vol]90 mg/dLNINF - 130 mg/dLWyandot Memorial Hospital Comment on above: LDL <100 mg/dL - Desirable LDL >160 mg/dL - High Risk Cholesterol in VLDL [Mass/Vol]25 mg/dL0 - 30 mg/dLWyandot Memorial Hospital Cholesterol.total/Cholesterol in HDL [Mass ratio]4.8 {ratio}1.0 - 5.0[facility] Memorial HospitalTriglyceride [Mass/Vol]123 mg/dL27 - 150 mg/dLWyandot Memorial HospitalCholesterol [Mass/Vol]145 mg/vVKdh537-295QwnBobivx Ripon HospitalComment on above:Performed By: #### [place], 69727-2 #### [facility] ([id number]) [address], [address] [place], [place] [address]Qeuocjzdlnr in HDL [Mass/Vol]30 mg/dLLow>39ProMedica Mc[facility] HospitalComment on above:Result Comment: HDL <40 mg/dL - High Risk HDL > or = 40mg/dL- Desirable HDL >60 mg/dL - Negative Risk Performed By: #### [place], 86548-0 #### [facility] ([id number]) [address], [address] [place], [place] [address]Bpbcjtcshge in LDL [Mass/Vol]90 mg/dLNormal<130ProSheltering Arms Hospital HospitalComment on above:Result Comment: LDL <100 mg/dL - Desirable LDL >160 mg/dL - High Risk Performed By: #### [place], 25235-3 #### [facility] ([id number]) [address], [address] [place], [place] [address]Talhrgdokuj in VLDL [Mass/Vol]25 mg/dLNormal0-30ProSheltering Arms Hospital HospitalComment on above:Performed By: #### [place], 00398-7 #### [facility] ([id number]) [address] [place], [place] [address]PCDOBYAWSXR:HDL4.3Anodku0.0-5.0ProMediSt. Francis Hospital HospitalComment on above:Performed By: #### [place], 46335-0 #### [facility] ([id number]) [address], [address] [place], [place] [address]Bpunfuecptub [Mass/Vol]123 mg/kOXtebhp76-690WqrRqptonMount St. Mary HospitalComment on above:Performed By: #### CMP, 14269-6 #### [facility] ([id number]) [address], [address] [place], [place] [address]To Panel Informationon [id number] and review of laboratory resultsAbnoKindred Hospital PittsburghCB AUTO DIFFon [id number] #0.1 103/ulNormal0.0-0.1The [facility]leness HospitalComment on above:Performed By: #### TSH, LIPID, CMP, PSAD, T4 #### [facility] [address] [place] [address] Wanda KarenBasophils/100 WBC (Bld)0.8 %Normal0.2-2.0The [facility] Comment on above:Performed By: #### TSH, LIPID, CMP, PSAD, T4 #### [facility] [address] [place] [address] Wanda KarenEO #0.3 103/ulNormal0.0-0.7The [facility]leness HospitalComment on above: Performed By: #### TSH, LIPID, CMP, PSAD, T4 #### [facility] [address] [id number] Wanda KarenEosinophils/100 WBC (Bld)3.5 %Normal0.9-7.0The [facility] Comment on above:Performed By: #### TSH, LIPID, CMP, PSAD, T4 #### [facility] [address] [id number] Wanda KarenErythrocyte distribution width (RBC) [Ratio]15.2 %Critically high 11.0-15.0The [facility]leness HospitalComment on above:Performed By: #### TSH, LIPID, CMP, PSAD, T4 #### [facility] [address] [place] [address] Wanda KarenHematocrit (Bld) [Volume fraction]42.3 %Iniqwg73.0-54.0The [facility] HospitalComment on above:Performed By: #### TSH, LIPID, CMP, PSAD, T4 #### [facility] [address] [address] Wanda KarenHemoglobin (Bld) [Mass/Vol]13.3 g/dLCritically low14.0-18.0The [facility] HospitalComment on above:Performed By: #### TSH, LIPID, CMP, PSAD, T4 #### [facility] [address] [place] [address] Wanda KarenIG #0.04 10e3/ulCritically high0.00-0.03The Providence Hospitalment on above:Performed By: #### TSH, LIPID, CMP, PSAD, T4 #### [facility] [address] [place] [address] Wanda KarenIG %0.4 %Normal0.0-0.5The Providence Hospitalment on above: Performed By: #### TSH, LIPID, CMP, PSAD, T4 #### [facility] [address] [place] [address] Wanda KarenLYMPH #2.8 103/ulNormal1.2-3.8The Providence Hospitalment on above: Performed By: #### TSH, LIPID, CMP, PSAD, T4 #### [facility] [address] [place] [address] Wanda KarenLymphocytes/100 WBC (Bld)30.2 %Alneur51.5-60.0The [facility] Comment on above:Performed By: #### TSH, LIPID, CMP, PSAD, T4 #### [facility] [address] [place] [address] W[place] KarenMANUAL DIFF REQNONormalThe [facility] HospitalComment on above: Performed By: #### TSH, LIPID, CMP, PSAD, T4 #### [facility] [address] [place] [address] Wanda KarenMCH (RBC) [Entitic mass]26.4 rhVfcphg05.9-34.0The [facility] Comment on above:Performed By: #### TSH, LIPID, CMP, PSAD, T4 #### [facility] [address] [place] [address] Wanda ConradHC (RBC) [Mass/Vol]31.4 g/mRXxhfch10.9-35.2The [facility] Comment on above:Performed By: #### TSH, LIPID, CMP, PSAD, T4 #### [facility] [address] [place] [address] Wanda ConradOU [facility] [place] (RBC) [Entitic vol]83.9 hQQbqtri96.0-94.0The [facility] Comment on above:Performed By: #### TSH, LIPID, CMP, PSAD, T4 #### [facility] [address] [place] [address] Wanda KarenMONO #0.6 103/ulNormal0.3-0.8The [facility] HospitalComment on above: Performed By: #### TSH, LIPID, CMP, PSAD, T4 #### [facility] [address] [place] [address] Wanda KarenMonocytes/100 WBC (Bld)6.2 %Normal1.7-12.0The [facility] Comment on above:Performed By: #### TSH, LIPID, CMP, PSAD, T4 #### [facility] [address] [place] [address] Wanda AntoineenNEUT #5.4 103/ulNormal1.4-6.5The [facility] HospitalComment on above: Performed By: #### TSH, LIPID, CMP, PSAD, T4 #### [facility] [address] [place] [address] Wanda KarenNeutrophils/100 WBC (Bld)58.9 %Dbmles49.0-75.0The [facility] Comment on above:Performed By: #### TSH, LIPID, CMP, PSAD, T4 #### [facility] [address] [place] [address] Wanda KarenPlatelet mean volume (Bld) [Entitic vol]10.5 fLNormal9.5-13.5ThMercy Health St. Elizabeth Boardman HospitalComment on above:Performed By: #### TSH, LIPID, CMP, PSAD, T4 #### [facility] [address] [place] [address] Wanda AntoineXpjcrAHH613 103/ibVnkjeb001-707EzcMemorial Health System Marietta Memorial HospitalComment on above: Performed By: #### TSH, LIPID, CMP, PSAD, T4 #### [facility] [address] [place] [address] Wanda KarenRBC5.04 106/ulNormal4.70-6.10The [facility] HospitalComment on above: Performed By: #### TSH, LIPID, CMP, PSAD, T4 #### [facility] [address] [place] [address] Wanda KarenWBC9.1 103/ulNormal4.0-11.0[facility] Memorial HospitalComment on above: Performed By: #### TSH, LIPID, CMP, PSAD, T4 #### [facility] [address] [place] [address] Wanda KarenLIPID PROFILEon [id number]-HDL RATIO NORMSCleveland Clinic Euclid HospitalComment on above:Result Comment: 3.3 - 4.4 LOW RISK 4.4 - 7.1 AVERAGE RISK 7.1 - 11.0 MODERATE RISK >11.0 HIGH RISKPerformed By: #### TSH, LIPID, CMP, PSAD, T4 #### [facility] [address] [place] [address] Wanda KarenCholesterol [Mass/Vol]137 mg/dLNormal<=200[facility] Comment on above:Performed By: #### TSH, LIPID, CMP, PSAD, T4 #### [facility] [address] [place] [address] Wanda KarenCholesterol in HDL [Mass/Vol]31 mg/dLClinton Memorial Hospital Comment on above:Performed By: #### TSH, LIPID, CMP, PSAD, T4 #### [facility] [address] [place] [address] Wanda KarenCholesterol in LDL [Mass/Vol]81.8 mg/dLClinton Memorial Hospital Comment on above:Performed By: #### TSH, LIPID, CMP, PSAD, T4 #### [facility] [address] [place] [address] Wanda KarenCholesterol.total/Cholesterol in HDL [Mass ratio]4.4 {ratio}Normal The [facility]'Bleness HospitalComment on above:Performed By: #### TSH, LIPID, CMP, PSAD, T4 #### [facility] [address] [place] [address] Wanda KarenHDL NORMAL> or = 60 mg/dl - LOW CARDIOVASCULAR RISK <40 mg/dl - HIGH CARDIOVASCULAR RISKNoMcKitrick HospitalComment on above:Performed By: #### TSH, LIPID, CMP, PSAD, T4 #### [facility] [address] [place] [address] Wanda KarenLDL CALC NORMALSEE BELOWNoMcKitrick HospitalComment on above: Result Comment: <100 mg/dl OPTIMAL 100 - 129 mg/dl NEAR OR ABOVE OPTIMAL 130 - 159 mg/dl BORDERLINE HIGH 160 - 189 mg/dl HIGH >190 mg/dl VERY HIGHPerformed By: #### TSH, LIPID, CMP, PSAD, T4 #### [facility] [address] [place] [address] Wanda KarenTriglyceride [Mass/Vol]121 mg/dLNormal<=150[facility] Comment on above:Performed By: #### TSH, LIPID, CMP, PSAD, T4 #### [facility] [address] [place] [address] Wanda KarenVLDL CALC24.2 mg/dLClinton Memorial HospitalComment on above: Performed By: #### TSH, LIPID, CMP, PSAD, T4 #### [facility] [address] [place] [address] Wanda KarenPROF 14(COMP METB)on [id number] [Mass/Vol]3.3 g/dLCritically low3.5-5.0[facility] Memorial HospitalComment on above:Performed By: #### TSH, LIPID, CMP, PSAD, T4 #### [facility] [address] [id number] Wanda KarenAlbumin/Globulin [Mass ratio]0.7 {ratio}NormalMemorial Health System Marietta Memorial Hospital Comment on above:Performed By: #### TSH, LIPID, CMP, PSAD, T4 #### [facility] [address] [address] Wanda KarenALP [Catalytic activity/Vol]113 U/BHrbbar47-750RdiMemorial Health System Marietta Memorial Hospital Comment on above:Performed By: #### TSH, LIPID, CMP, PSAD, T4 #### [facility] [address] [place] [address] Wanda KarenALT [Catalytic activity/Vol]25 U/CGfgzwp97-66BonMemorial Health System Marietta Memorial Hospital Comment on above:Performed By: #### TSH, LIPID, CMP, PSAD, T4 #### [facility] [address] [place] [address] Wanda KarenAnion gap [Moles/Vol]12.4 mmol/LNormalMemorial Health System Marietta Memorial HospitalComment on above:Performed By: #### TSH, LIPID, CMP, PSAD, T4 #### [facility] [address] [place] [address] Wanda KarenAST [Catalytic activity/Vol]16 U/LCritically pcl55-20JbfMemorial Health System Marietta Memorial HospitalComment on above:Performed By: #### TSH, LIPID, CMP, PSAD, T4 #### [facility] [address] [place], [place] [address] Wanda KarenBilirubin [Mass/Vol]0.4 mg/dLNormal0.2-1.3TUniversity Hospitals [facility] Comment on above:Performed By: #### TSH, LIPID, CMP, PSAD, T4 #### [facility] [address] [place], [place] [address] Wanda KarenCalcium [Mass/Vol]8.8 mg/dLNormal8.4-10.2[facility] Comment on above:Performed By: #### TSH, LIPID, CMP, PSAD, T4 #### [facility] [address] [place] [address] Wanda KarenChloride [Moles/Vol]102 mmol/UIjgfps63-751Qah [facility] Comment on above:Performed By: #### TSH, LIPID, CMP, PSAD, T4 #### [facility] [address] [place] [address] Wanda KarenCO2 [Moles/Vol]30.0 mmol/BQfgkhk39.0-30.0The [facility] Comment on above:Performed By: #### TSH, LIPID, CMP, PSAD, T4 #### [facility] [address] [place] [address] Wanda KarenCreatinine [Mass/Vol]1.29 mg/dLCritically high0.66-1.25The [facility]leness HospitalComment on above:Performed By: #### TSH, LIPID, CMP, PSAD, T4 #### [facility] [address] [place] [address] Wanda KarenEGFR-AF CAPE VERDEAN>60Normal>=60[facility] Memorial HospitalComment on above: Performed By: #### TSH, LIPID, CMP, PSAD, T4 #### [facility] [address] [place] [address] Wanda KarenEGFR-NON AF DMDZEQXE17 mL/min/1.17q9Hncoosjaxm low>=60The [facility]len[facility] HospitalComment on above:Performed By: #### TSH, LIPID, CMP, PSAD, T4 #### [facility] [address] [place] [address] Wanda KarenGlobulin (S) [Mass/Vol]4.5 g/dLNormalThe [facility]leness HospitalComment on above:Performed By: #### TSH, LIPID, CMP, PSAD, T4 #### [facility] [address] [place] [address] Wanda KarenGlucose [Mass/Vol]153 mg/dLCritically lpdf44-646RixMemorial Health System Marietta Memorial HospitalComment on above:Performed By: #### TSH, LIPID, CMP, PSAD, T4 #### [facility] [address] [place], [place] [address] Wanda KarenPotassium [Moles/Vol]4.4 mmol/LNormal3.4-5.0The [facility] Comment on above:Performed By: #### TSH, LIPID, CMP, PSAD, T4 #### [facility] [address] [place] [address] Wanda KarenProtein [Mass/Vol]7.8 g/dLNormal6.1-8.2The [facility]len[facility] HospitalComment on above:Performed By: #### TSH, LIPID, CMP, PSAD, T4 #### [facility] [address] [place] [address] Wanda KarenSodium [Moles/Vol]140 mmol/MLgcszo563-488Het [facility] Comment on above:Performed By: #### TSH, LIPID, CMP, PSAD, T4 #### [facility] [address] [place] [address] Wanda KarenUrea nitrogen [Mass/Vol]28.0 mg/dLCritically high9.0-20.0The [facility]len[facility] HospitalComment on above:Performed By: #### TSH, LIPID, CMP, PSAD, T4 #### [facility] [address] [place], [place] [address] Wanda KarenUrea nitrogen/Creatinine [Mass ratio]21.7 mg/mgNormalThe [facility]len[facility] HospitalComment on above:Performed By: #### TSH, LIPID, CMP, PSAD, T4 #### [facility] [address] [place] [address] Wanda CematZ4lx [id number] [Mass/Vol]5.90 ug/dLNormal5.53-11.00The [facility]len[facility] HospitalComment on above:Performed By: #### TSH, LIPID, CMP, PSAD, T4 #### [facility] [address] [place] [address] Wanda KarenTSHon [id number] uIU/mLNormal0.470-4.680The [facility]len[facility] HospitalComment on above:Performed By: #### TSH, LIPID, CMP, PSAD, T4 #### [facility] [address] [address] Wanda KATHLEEN [facility] Memorial HospitalComment on above:Result Comment: <0.34 UIU/ml HYPERTHYROID 0.34-5.60 UIU/ml EUTHYROID >5.60 UIU/ml HYPOTHYROIDPerformed By: #### TSH, LIPID, CMP, PSAD, T4 #### [facility] [address] [address] Wanda KarenXR LSPINE MIN 4 VIEWSon [id number] LSPINE MIN 4 VIEWSEXAMINATION: XR LSPINE MIN [...] Electronically authenticated by: EFRA HERBERT Date: 2020-04-04 15:[address] [place], [place] [address]ACETAMINOPHENon [id number] [Mass/Vol]ug/mL Critically low10.1-30.0[facility] Memorial HospitalComment on above:Performed By: #### ACET #### [facility] [address] [place] [address] Wanda KarenAMMONIAon [id number] (P) [Moles/Vol]7 umol/LCritically low 10-30[facility] HospitalComment on above:Performed By: #### AMM #### [facility] [address] [place] [address] Wanda AntoineenCBC AUTO DIFFon [id number] #0.0 103/ulNormal0.0-0.1[facility] Memorial HospitalComment on above:Performed By: #### TSH, LIPID, CMP, PSAD, T4 #### [facility] [address] [place] [address] Wanda AntoineenBasophils/100 WBC (Bld)0.4 %Normal0.2-2.0The [facility] Comment on above:Performed By: #### TSH, LIPID, CMP, PSAD, T4 #### [facility] [address] [place] [address] Wanda KarenEO #0.2 103/ulNormal0.0-0.7The [facility] HospitalComment on above: Performed By: #### TSH, LIPID, CMP, PSAD, T4 #### [facility] [address] [place] [address] Wanda KarenEosinophils/100 WBC (Bld)1.8 %Normal0.9-7.0The [facility] Comment on above:Performed By: #### TSH, LIPID, CMP, PSAD, T4 #### [facility] [address] [place] [address] Wanda KarenErythrocyte distribution width (RBC) [Ratio]14.1 %Pdcnsv78.0-15.0The [facility] HospitalComment on above:Performed By: #### TSH, LIPID, CMP, PSAD, T4 #### [facility] [address] [place] [address] Wn[place] KarenHematocrit (Bld) [Volume fraction]41.2 %Critically low42.0-54.0The [facility] HospitalComment on above:Performed By: #### TSH, LIPID, CMP, PSAD, T4 #### [facility] [address] [place] [address] Wanda KarenHemoglobin (Bld) [Mass/Vol]13.3 g/dLCritically low14.0-18.0The [facility] HospitalComment on above:Performed By: #### TSH, LIPID, CMP, PSAD, T4 #### [facility] [address] [place] [address] Wanda KarenIG #0.05 10e3/ulCritically high0.00-0.03The [facility] HospitalComment on above:Performed By: #### TSH, LIPID, CMP, PSAD, T4 #### [facility] [address] [place] [address] Wanda KarenIG %0.5 %Normal0.0-0.5The [facility] HospitalComment on above: Performed By: #### TSH, LIPID, CMP, PSAD, T4 #### [facility] [address] [place] [address] Wanda AntoineenLYMPH #2.3 103/ulNormal1.2-3.8The [facility] HospitalComment on above: Performed By: #### TSH, LIPID, CMP, PSAD, T4 #### [facility] [address] [place] [address] Wanda ConradLymphocytes/100 WBC (Bld)21.1 %Iyhzxh71.5-60.0[facility] Comment on above:Performed By: #### TSH, LIPID, CMP, PSAD, T4 #### [facility] [address] [place] [address] Wanda KarenMANUAL DIFF REQNONormalThe [facility] HospitalComment on above: Performed By: #### TSH, LIPID, CMP, PSAD, T4 #### [facility] [address] [place] [address] Wanda KarNYU [facility] (RBC) [Entitic mass]26.1 lrIvaixu89.9-34.0[facility] Comment on above:Performed By: #### TSH, LIPID, CMP, PSAD, T4 #### [facility] [address] [place] [address] Wanda KarCommunity [facility] (RBC) [Mass/Vol]32.3 g/dNRlpmxf97.9-35.2[facility] Comment on above:Performed By: #### TSH, LIPID, CMP, PSAD, T4 #### [facility] [address] [place] [address] Wanda KarPine Rest Christian [facility] (RBC) [Entitic vol]80.9 nHEijizt58.0-94.0[facility] Comment on above:Performed By: #### TSH, LIPID, CMP, PSAD, T4 #### [facility] [address] [place] [address] Wanda KarenMONO #0.5 103/ulNormal0.3-0.8The [facility] HospitalComment on above: Performed By: #### TSH, LIPID, CMP, PSAD, T4 #### [facility] [address] [place], [place] [id number] Wanda KarenMonocytes/100 WBC (Bld)4.8 %Normal1.7-12.0[facility] Comment on above:Performed By: #### TSH, LIPID, CMP, PSAD, T4 #### [facility] [address] [place] [address] Wanda KarenNEUT #7.8 103/ulCritically high1.4-6.5[facility] HospitalComment on above:Performed By: #### TSH, LIPID, CMP, PSAD, T4 #### [facility] [address] [place] [address] Wanda KarenNeutrophils/100 WBC (Bld)71.4 %Tcopna12.0-75.0[facility] Comment on above:Performed By: #### TSH, LIPID, CMP, PSAD, T4 #### [facility] [address] [place] [address] Wanda KarenPlatelet mean volume (Bld) [Entitic vol]9.6 fLNormal9.5-13.5The [facility] HospitalComment on above:Performed By: #### TSH, LIPID, CMP, PSAD, T4 #### [facility] [address] [place] [address] Wanda SlxprPSA575 103/rePutoyl424-167Cse [facility] HospitalComment on above: Performed By: #### TSH, LIPID, CMP, PSAD, T4 #### [facility] [address] [place] [address] Wanda KarenRBC5.09 106/ulNormal4.70-6.10The [facility] HospitalComment on above: Performed By: #### TSH, LIPID, CMP, PSAD, T4 #### [facility] [address] [place] [address] Wanda AmxbwJOM86.8 103/ulNormal4.0-11.0The [facility] HospitalComment on above: Performed By: #### TSH, LIPID, CMP, PSAD, T4 #### [facility] [address] [id number] Wanda KarenCT HEAD WO CONon [id number] HEAD WO CONCT BRAIN WITHOUT CONTRAST HISTORY: [...] Electronically authenticated by: EFRA MARRERO Date: 2019-11-25 01:49[facility] HospitalETHANOL (BLD ALC)on [id number] NOTENOTE: 80 mg/dl is the legal limit for a blood alcohol levelMercy Health Tiffin Hospital on above:Performed By: #### TSH, LIPID, CMP, PSAD, T4 #### [facility] [address] [place] [address] Wanda KarenEthanol [Mass/Vol]205 mg/dLClinton Memorial HospitalComment on above:Performed By: #### TSH, LIPID, CMP, PSAD, T4 #### [facility] [address] [address] Wanda KarenPROF 14(COMP METB)on [id number] [Mass/Vol]3.2 g/dLCritically low3.5-5.0The [facility] on above:Performed By: #### TSH, LIPID, CMP, PSAD, T4 #### [facility] [address] [place] [address] Wanda KarenAlbumin/Globulin [Mass ratio]0.8 {ratio}NormalMemorial Health System [facility] Comment on above:Performed By: #### TSH, LIPID, CMP, PSAD, T4 #### [facility] [address] [place] [address] Wanda KarenALP [Catalytic activity/Vol]111 U/PZewpun47-638PmaMemorial Health System [facility] Hospital Comment on above:Performed By: #### TSH, LIPID, CMP, PSAD, T4 #### [facility] [address] [place] [address] Wanda KarenALT [Catalytic activity/Vol]23 U/CPcmtzy51-17OznMemorial Health System Mari[facility] Memorial Hospital Comment on above:Performed By: #### TSH, LIPID, CMP, PSAD, T4 #### [facility] [address] [place] [address] Wanda KarenAnion gap [Moles/Vol]16.5 mmol/LNormalThe [facility] HospitalComment on above:Performed By: #### TSH, LIPID, CMP, PSAD, T4 #### [facility] [address] [place] [address] Wanda KarenAST [Catalytic activity/Vol]15 U/LCritically frr71-03TrlMemorial Health System Marietta Memorial HospitalComment on above:Performed By: #### TSH, LIPID, CMP, PSAD, T4 #### [facility] [address] [place] [address] Wanda KarenBilirubin [Mass/Vol]0.3 mg/dLNormal0.2-1.3TUniversity Hospitals [facility] Comment on above:Performed By: #### TSH, LIPID, CMP, PSAD, T4 #### [facility] [address] [place] [address] Wanda KarenCalcium [Mass/Vol]8.2 mg/dLCritically low8.4-10.2[facility] HospitalComment on above:Performed By: #### TSH, LIPID, CMP, PSAD, T4 #### [facility] [address] [place] [address] Wanda KarenChloride [Moles/Vol]98 mmol/SOiawjg45-909TvuMemorial Health System Marietta Memorial Hospital Comment on above:Performed By: #### TSH, LIPID, CMP, PSAD, T4 #### [facility] [address] [place] [address] Wanda KarenCO2 [Moles/Vol]23.2 mmol/FKosqwu59.0-30.0[facility] Comment on above:Performed By: #### TSH, LIPID, CMP, PSAD, T4 #### [facility] [address] [place] [address] Wanda KarenCreatinine [Mass/Vol]0.91 mg/dLNormal0.66-1.25ThMercy Health [facility] Comment on above:Performed By: #### TSH, LIPID, CMP, PSAD, T4 #### [facility] [address] [place] [address] Wanda KarenEGFR-AF CAPE VERDEAN>60Normal>=60[facility] HospitalComment on above: Performed By: #### TSH, LIPID, CMP, PSAD, T4 #### [facility] [address] [place] [address] Wanda KarenEGFR-NON AF CAPE VERDEAN>60Normal>=60[facility] HospitalComment on above:Performed By: #### TSH, LIPID, CMP, PSAD, T4 #### [facility] [address] [place] [address] Wanda KarenGlobulin (S) [Mass/Vol]4.1 g/dLNormalThMercy Health St. Elizabeth Boardman HospitalComment on above:Performed By: #### TSH, LIPID, CMP, PSAD, T4 #### [facility] [address] [place] [address] Wanda KarenGlucose [Mass/Vol]231 mg/dLCritically cozn74-695SbwMemorial Health System Marietta Memorial HospitalComment on above:Performed By: #### TSH, LIPID, CMP, PSAD, T4 #### [facility] [address] [place] [address] Wanda KarenPotassium [Moles/Vol]3.7 mmol/LNormal3.4-5.0[facility] Comment on above:Performed By: #### TSH, LIPID, CMP, PSAD, T4 #### [facility] [address] [id number] Wanda KarenProtein [Mass/Vol]7.3 g/dLNormal6.1-8.2The [facility] HospitalComment on above:Performed By: #### TSH, LIPID, CMP, PSAD, T4 #### [facility] [address] [address] Wanda KarenSodium [Moles/Vol]134 mmol/LCritically czr956-749Ajm [facility] HospitalComment on above:Performed By: #### TSH, LIPID, CMP, PSAD, T4 #### [facility] [address] [place] [address] Wanda KarenUrea nitrogen [Mass/Vol]22.0 mg/dLCritically high9.0-20.0The [facility] on above:Performed By: #### TSH, LIPID, CMP, PSAD, T4 #### [facility] [address] [address] Wanda KarenUrea nitrogen/Creatinine [Mass ratio]24.2 mg/mgNormalThMercy Health St. Elizabeth Boardman HospitalComuniversity of mich[facility] health on above:Performed By: #### TSH, LIPID, CMP, PSAD, T4 #### [facility] [address] [place] [address] Wanda KarenSALICYLATEon [id number] mg/dLNormal<=20.0[facility] on above:Performed By: #### TSH, LIPID, CMP, PSAD, T4 #### [facility] [address] [place], [place] [id number] Wanda KarenXR CHEST 1 Von [id number] CHEST 1 VCHEST RADIOGRAPH: HISTORY: Pain. COMPARISON: None available. TECHNIQUE: AP radiograph of was performed of the chest. FINDINGS: SUPPORT APPARATUS: None. CARDIOMEDIASTINAL SILHOUETTE: Normal. AIRWAYS/LUNGS: Clear. PLEURAL SPACES: No pleural effusion or pneumothorax. BONES AND SOFT TISSUES: No acute abnormality. IMPRESSION: Normal chest radiograph. Electronically authenticated by: EFRA MARRERO Date: 2019-11-25 01:51NoMcKitrick HospitalXR PELVIS 1_2 VIEWSon [id number] PELVIS 1_2 VIEWSXR PELVIS 1_2 VIEWS: HISTORY: [...] Electronically authenticated by: EFRA MARRERO Date: 2019-11-25 01:52NoMercy Health [facility] AUTO DIFFon [id number] #0.1 103/ulNormal0.0-0.1[facility] HospitalComment on above:Performed By: #### CBC #### [facility] [address] [place] [address] Wanda KarenBasophils/100 WBC (Bld)0.6 %Normal0.2-2.0[facility] Comment on above:Performed By: #### CBC #### [facility] [address] [address] Wanda KarenEO #0.2 103/ulNormal0.0-0.7The [facility] HospitalComment on above: Performed By: #### CBC #### [facility] [address] [place] [address] Wanda KarenEosinophils/100 WBC (Bld)1.7 %Normal0.9-7.0[facility] Comment on above:Performed By: #### CBC #### [facility] [address] [address] Wanda KarenErythrocyte distribution width (RBC) [Ratio]14.4 %Mmcmlr62.0-15.0The [facility] HospitalComment on above:Performed By: #### CBC #### [facility] [address] [place] [address] Wanda KarenHematocrit (Bld) [Volume fraction]44.2 %Nwjiih77.0-54.0[facility] HospitalComment on above:Performed By: #### CBC #### [facility] [address] [place], [place] [address] Wanda KarenHemoglobin (Bld) [Mass/Vol]13.9 g/dLCritically low14.0-18.0The [facility] HospitalComment on above:Performed By: #### CBC #### [facility] [address] [place] [address] Wanda AntoineenIG #0.04 10e3/ulCritically high0.00-0.03The [facility] HospitalComment on above:Performed By: #### CBC #### [facility] [address] [place] [address] Wanda AntoineenIG %0.4 %Normal0.0-0.5The [facility] HospitalComment on above: Performed By: #### CBC #### [facility] [address] [place] [address] Wanda KarenLYMPH #2.8 103/ulNormal1.2-3.8The [facility] HospitalComment on above: Performed By: #### CBC #### [facility] [address] [place] [address] Wanda KarenLymphocytes/100 WBC (Bld)28.2 %Pufnjw49.5-60.0The [facility] Comment on above:Performed By: #### CBC #### [facility] [address] [place] [address] Wanda KarenMANUAL DIFF REQNONormalThe [facility] HospitalComment on above: Performed By: #### CBC #### [facility] [address] [place] [address] Wanda KarenMCH (RBC) [Entitic mass]25.9 utWhsamp35.9-34.0The [facility] Comment on above:Performed By: #### CBC #### [facility] [address] [place] [address] Wanda KarenMCHC (RBC) [Mass/Vol]31.4 g/qKZfylxt98.9-35.2The [facility] Comment on above:Performed By: #### CBC #### [facility] [address] [place] [address] Wanda KarenMCV (RBC) [Entitic vol]82.3 aGDtxqgy54.0-94.0The [facility] Comment on above:Performed By: #### CBC #### [facility] [address] [place] [address] Wanda AntoineenMONO #0.5 103/ulNormal0.3-0.8The [facility] HospitalComment on above: Performed By: #### CBC #### [facility] [address] [place] [address] Wanda KarenMonocytes/100 WBC (Bld)5.2 %Normal1.7-12.0The [facility] Comment on above:Performed By: #### CBC #### [facility] [address] [place] [address] Wanda AntoineenNEUT #6.4 103/ulNormal1.4-6.5The [facility] HospitalComment on above: Performed By: #### CBC #### [facility] [address] [place] [address] Wanda KarenNeutrophils/100 WBC (Bld)63.9 %Uqpobi00.0-75.0The [facility] Comment on above:Performed By: #### CBC #### [facility] [address] [place] [address] Wanda KarenPlatelet mean volume (Bld) [Entitic vol]10.5 fLNormal9.5-13.5The [facility] HospitalComment on above:Performed By: #### CBC #### [facility] [address] [place] [address] Wanda QvialIMG732 103/tpVoivqm790-136Rdq [facility] HospitalComment on above: Performed By: #### CBC #### [facility] [address] [place] [address] Wanda KarenRBC5.37 106/ulNormal4.70-6.10The [facility] HospitalComment on above: Performed By: #### CBC #### [facility] [address] [place] [address] Wanda BmenmHZF10.0 103/ulNormal4.0-11.0[facility] HospitalComment on above: Performed By: #### CBC #### [facility] [address] [address] Wanda KarenGLYCOHEMOGLOBIN A1Con [id number] [Mass/Vol]163 mg/dLClinton Memorial HospitalComment on above:Performed By: #### TSH, LIPID, CMP, PSAD, T4 #### [facility] [address] [place] [address] Wanda FbpkuYiG6h (Bld) [Mass fraction]7.3 %Critically high<=6.0[facility] HospitalComment on above:Performed By: #### TSH, LIPID, CMP, PSAD, T4 #### [facility] [address] [place] [address] Wanda KarenLIPID PROFILEon [id number]-HDL RATIO NORMSEE [facility] HospitalComment on above:Result Comment: 3.3 - 4.4 LOW RISK 4.4 - 7.1 AVERAGE RISK 7.1 - 11.0 MODERATE RISK >11.0 HIGH RISKPerformed By: #### TSH, LIPID, CMP, PSAD, T4 #### [facility] [address] [place] [address] Wanda KarenCholesterol [Mass/Vol]130 mg/dLNormal<=200[facility] Comment on above:Performed By: #### TSH, LIPID, CMP, PSAD, T4 #### [facility] [address] [place] [address] Wanda KarenCholesterol in HDL [Mass/Vol]32 mg/dLClinton Memorial Hospital Comment on above:Performed By: #### TSH, LIPID, CMP, PSAD, T4 #### [facility] [address] [place] [address] Wanda KarenCholesterol in LDL [Mass/Vol]76.6 mg/dLClinton Memorial Hospital Comment on above:Performed By: #### TSH, LIPID, CMP, PSAD, T4 #### [facility] [address] [place] [address] Wanda KarenCholesterol.total/Cholesterol in HDL [Mass ratio]4.1 {ratio}Normal The [facility]len[facility] HospitalComment on above:Performed By: #### TSH, LIPID, CMP, PSAD, T4 #### [facility] [address] [place] [address] Wanda KarenHDL NORMAL> or = 60 mg/dl - LOW CARDIOVASCULAR RISK <40 mg/dl - HIGH CARDIOVASCULAR RISKClinton Memorial HospitalComment on above:Performed By: #### TSH, LIPID, CMP, PSAD, T4 #### [facility] [address] [place] [address] Wanda KarenLDL CALC NORMALSEE BELOWClinton Memorial HospitalComment on above: Result Comment: <100 mg/dl OPTIMAL 100 - 129 mg/dl NEAR OR ABOVE OPTIMAL 130 - 159 mg/dl BORDERLINE HIGH 160 - 189 mg/dl HIGH >190 mg/dl VERY HIGHPerformed By: #### TSH, LIPID, CMP, PSAD, T4 #### [facility] [address] [place] [address] Wanda KarenTriglyceride [Mass/Vol]107 mg/dLNormal<=150[facility] Comment on above:Performed By: #### TSH, LIPID, CMP, PSAD, T4 #### [facility] [address] [place] [address] Wanda KarenVLDL CALC21.4 mg/dLNoMcKitrick HospitalComment on above: Performed By: #### TSH, LIPID, CMP, PSAD, T4 #### [facility] [address] [place] [address] Wanda KarenMICROALBUMIN, RAND URon [id number]<1.3Normal<=30.0The [facility] HospitalComment on above:Performed By: #### MALBR #### [facility] [address] [place] [address] Wanda KarenmALBHPLEASE NOTE: NORMAL RANGE CHANGE, TESTING PERFORMED AT [facility]. NormalThe [facility] HospitalComment on above:Performed By: #### MALBR #### [facility] [address] [place] [address] Wanda KarenPROF 14(COMP METB)on [id number] [Mass/Vol]3.5 g/dLNormal 3.5-5.0[facility] HospitalComment on above:Performed By: #### TSH, LIPID, CMP, PSAD, T4 #### [facility] [address] [address] Wanda KarenAlbumin/Globulin [Mass ratio]0.8 {ratio}NormalMemorial Health System Marietta [facility] Hospital Comment on above:Performed By: #### TSH, LIPID, CMP, PSAD, T4 #### [facility] [address] [place] [address] Wanda KarenALP [Catalytic activity/Vol]103 U/UCywiyf56-767CntMemorial Health System [facility] Hospital Comment on above:Performed By: #### TSH, LIPID, CMP, PSAD, T4 #### [facility] [address] [place] [address] Wanda KarenALT [Catalytic activity/Vol]21 U/BFujjvq75-02FmiMemorial Health System [facility] Hospital Comment on above:Performed By: #### TSH, LIPID, CMP, PSAD, T4 #### [facility] [address] [address] Wanda KarenAnion gap [Moles/Vol]13.9 mmol/LNormalMemorial Health System Marietta Memorial HospitalComment on above:Performed By: #### TSH, LIPID, CMP, PSAD, T4 #### [facility] [address] [address] Wanda KarenAST [Catalytic activity/Vol]18 U/DIsozfx13-53QcfMemorial Health System [facility] Hospital Comment on above:Performed By: #### TSH, LIPID, CMP, PSAD, T4 #### [facility] [address] [address] Wanda KarenBilirubin [Mass/Vol]0.5 mg/dLNormal0.2-1.3TUniversity Hospitals Cleveland Medical Center Comment on above:Performed By: #### TSH, LIPID, CMP, PSAD, T4 #### [facility] [address] [address] Wanda KarenCalcium [Mass/Vol]8.9 mg/dLNormal8.4-10.2[facility] Comment on above:Performed By: #### TSH, LIPID, CMP, PSAD, T4 #### [facility] [address] [address] Wanda KarenChloride [Moles/Vol]100 mmol/POuwmbw81-344WdcMemorial Health System Marietta Memorial Hospital Comment on above:Performed By: #### TSH, LIPID, CMP, PSAD, T4 #### [facility] [address] [place] [address] Wanda KarenCO2 [Moles/Vol]28.2 mmol/VFkrrex38.0-30.0The [facility] Comment on above:Performed By: #### TSH, LIPID, CMP, PSAD, T4 #### [facility] [address] [place] [address] Wanda KarenCreatinine [Mass/Vol]1.08 mg/dLNormal0.66-1.25The [facility] Comment on above:Performed By: #### TSH, LIPID, CMP, PSAD, T4 #### [facility] [address] [place] [address] Wanda KarenEGFR-AF CAPE VERDEAN>60Normal>=60The [facility] HospitalComment on above: Performed By: #### TSH, LIPID, CMP, PSAD, T4 #### [facility] [address] [place] [address] Wanda KarenEGFR-NON AF CAPE VERDEAN>60Normal>=60The [facility] HospitalComment on above:Performed By: #### TSH, LIPID, CMP, PSAD, T4 #### [facility] [address] [place] [address] Wanda KarenGlobulin (S) [Mass/Vol]4.6 g/dLNormalThe [facility] HospitalComment on above:Performed By: #### TSH, LIPID, CMP, PSAD, T4 #### [facility] [address] [place] [address] Wanda KarenGlucose [Mass/Vol]129 mg/dLCritically wpkc48-006Nff [facility] HospitalComment on above:Performed By: #### TSH, LIPID, CMP, PSAD, T4 #### [facility] [address] [address] Wanda KarenPotassium [Moles/Vol]4.1 mmol/LNormal3.4-5.0The [facility] Comment on above:Performed By: #### TSH, LIPID, CMP, PSAD, T4 #### [facility] [address] [place] [address] Wanda KarenProtein [Mass/Vol]8.1 g/dLNormal6.1-8.2The [facility] HospitalComment on above:Performed By: #### TSH, LIPID, CMP, PSAD, T4 #### [facility] [address] [place] [address] Wanda KarenSodium [Moles/Vol]138 mmol/ITteiho102-432Gtr [facility] Comment on above:Performed By: #### TSH, LIPID, CMP, PSAD, T4 #### [facility] [address] [address] Wanda KarenUrea nitrogen [Mass/Vol]34.0 mg/dLCritically high9.0-20.0The [facility] HospitalComment on above:Performed By: #### TSH, LIPID, CMP, PSAD, T4 #### [facility] [address] [place], [place] [address] Wanda KarenUrea nitrogen/Creatinine [Mass ratio]31.5 mg/mgNormalThe [facility] HospitalComment on above:Performed By: #### TSH, LIPID, CMP, PSAD, T4 #### [facility] [address] [place], [place] [address] Wanda Anamaria Vital Signs Date TimeVital SignValuePerforming YimbpwqhtCqvhzhmr95-80-6175 13:48-0400Body .6 cmJomagdalene [employer] Work Phone: [facility]04-07-2025 13:48-0400Body mass index (BMI) [Ratio]66.3 kg/m2Jo Coley Pharmaceutical Groupchi [facility] DO Work Phone: [facility]04-07-2025 13:48-0400Body irodgfysvdg67.5 [degF]Merritt Thacker DO Work Phone: [facility] Ktjwoz97-95-3006 13:48-0400Body hjelbb784.34 kgMerritt Thacker DO Work Phone: [facility] CenterInterviewstreet04-07-2025 13:48-0400Diastolic blood nsdpoegt62 mm[Hg]Merritt Thacker DO Work Phone: [facility] ServicesComment on above:bp cuff not big vmravx25-62-9777 13:48-0400Heart rate92 /minMerritt Thacker DO Work Phone: [facility] Nlzldg48-03-4908 13:48-0400 Respiratory rate20 /minMerritt Thacker DO Work Phone: [facility] Xkofuz44-93-6404 13:48-6673DzL9% (BldA) [Mass fraction]91 %Merritt Thacker DO Work Phone: [facility] CenterInterviewstreet04-07-2025 13:48-0400Systolic blood iareazvt064 mm[Hg]Merritt Thacker DO Work Phone: [facility] ServicesComment on above:bp cuff not big auyrxm84-08-4451 13:20-0500Diastolic blood rynpbygv52 mm[Hg]Merritt Thacker DO Work Phone: [facility] Kplbxo16-74-4981 13:20-0500Systolic blood zjjdwkir869 mm[Hg]Merritt Thacker DO Work Phone: [facility] CenterInterviewstreet01-07-2025 12:57-0500Body asqowg917.6 cmJomagdalene Thacker DO Work Phone: [facility]erm[facility] Ijxivp70-01-7989 12:57-0500Body mass index (BMI) [Ratio]68.44 kg/m2Merritt Thacker DO Work Phone: [facility] CenterInterviewstreet01-07-2025 12:57-0500Body dnsrwisocqi38.59 [degF]Merritt Thacker DO Work Phone: [facility] Scdktm84-21-7998 12:57-0500Body cvvzui730.32 kgMerritt Thacker DO Work Phone: [facility] Jokmpg34-59-0412 12:57-0500Heart rate 78 /minMerritt Thacker DO Work Phone: [facility] Msfxkr58-22-7462 12:57-0500 Respiratory rate20 /minMerritt Thacker DO Work Phone: [facility] Cebsvi57-19-0523 12:57-0004ZfT0% (BldA) [Mass fraction]97 %Merritt Thacker DO Work Phone: [facility] Rlzrmd75-15-1499 15:01-0400Body xsadbt713.6 cmMerritt Thacker DO Work Phone: [facility] Orwfen18-69-1139 15:01-0400Body mass index (BMI) [Ratio]63.75 kg/m2Merritt Thacker DO Work Phone: [facility] Bwlbln67-10-0844 15:01-0400Body mwdhwmzoimh04.59 [degF]Merritt Thacker DO Work Phone: [facility] Djgsqw37-93-0505 15:01-0400Body sjmjed882.17 kgMerritt Thacker DO Work Phone: [facility] Qkqjlp15-71-5259 15:01-0400Diastolic blood xuewampf72 mm[Hg]Merritt Thacker DO Work Phone: [facility] Lrxmws31-18-9513 15:01-0400Heart rate 88 /minMerritt Thacker DO Work Phone: [facility] Eygyve07-12-6470 15:01-6789JnL4% (BldA) [Mass fraction]95 %Merritt Thacker DO Work Phone: [facility] Qegsql57-82-2487 15:01-0400Systolic blood hzdfqhao173 mm[Hg]Merritt Thacker DO Work Phone: [facility]08-19-2024 16:34-0400Body isuzzc605.6 cmMerritt Thacker DO Work Phone: [facility] Dkupal55-65-1676 16:34-0400Body mass index (BMI) [Ratio]67.39 kg/m2Merritt Thacker DO Work Phone: [facility] Inzrok88-62-7869 16:34-0400Body ffffllopkny42.11 [degF]Merritt Thacker DO Work Phone: [facility]08-19-2024 16:34-0400Body ibqzon617.38 kgJomagdalene Thacker DO Work Phone: [facility]08-19-2024 16:34-0400Diastolic blood gkrjxusl93 mm[Hg]Merritt Thacker DO Work Phone: [facility] Jheugf11-73-6914 16:34-0400Heart rate 71 /minJomagdalene Thacker DO Work Phone: [facility] Sjpqgm09-88-7887 16:34-3133AyQ0% (BldA) [Mass fraction]98 %Merritt Thacker DO Work Phone: [facility] Fweluz99-11-4307 16:34-0400Systolic blood onxuvtwe190 mm[Hg]Merritt Thacker DO Work Phone: [facility] Lcyrzo28-78-4301 14:38-0400Body pzanot557.6 cmMerritt Thacker DO Work Phone: [facility]08-05-2024 14:38-0400Body rhqwuignweo22.49 [degF]Merritt Thacker DO Work Phone: [facility]08-05-2024 14:38-0400Diastolic blood ehoaosmr04 mm[Hg]Merritt Thacker DO Work Phone: [facility]08-05-2024 14:38-0400Heart rate 75 /minMerritt Thacker DO Work Phone: [facility] Zqtgbx22-57-4506 14:38-0400 Respiratory rate20 /minMerritt Thacker DO Work Phone: [facility]08-05-2024 14:38-0820VlG1% (BldA) [Mass fraction]94 %Merritt Thacker DO Work Phone: [facility]08-05-2024 14:38-0400Systolic blood alnhyfun078 mm[Hg]Merritt Thacker DO Work Phone: [facility]04-10-2024 13:51-0400Diastolic blood mhkysjvx68 mm[Hg]Merritt Thacker DO Work Phone: [facility] Nzwxng01-51-6008 13:51-0400Systolic blood ijhahpnn348 mm[Hg]Merritt Thacker DO Work Phone: [facility]04-10-2024 13:09-0400Body cmtwip906.6 cmJomagdalene Thacker DO Work Phone: [facility] Yeykyb71-00-7147 13:09-0400Body mass index (BMI) [Ratio]68.86 kg/m2Merritt Thacker DO Work Phone: [facility] Xhltzr96-73-2667 13:09-0400Body jumvsyxaovc58.2 [degF]Merritt Thacker DO Work Phone: [facility]04-10-2024 13:09-0400Body gnafuk917.5 kgMerritt Thacker DO Work Phone: [facility] Ubcenh92-85-2856 13:09-0400Heart rate 88 /minMerritt Thacker DO Work Phone: [facility] Drqzth31-36-9224 13:09-0400 Respiratory rate20 /Jillian Thacker DO Work Phone: [facility] Pbwazm25-74-1826 13:09-3031GxH9% (BldA) [Mass fraction]98 %Merritt Thacker DO Work Phone: [facility] Encounters Encounter DateEncounter TypeCare ProviderFacilityStart: 02-15-2025 End: 22-29-6685Vxklsnrim encounterNoemi Caraballo [facility] Internal Medicine - Family MedicineComment on above:Colon Cancer ScreeningStart: 01-21-2025 End: 11-16-4947jysjbmiiwzWRFQGalion Community Hospitaltart: 12-03-2024 End: 08-01-2581UiuzmoDyet Albertina Thacker DO Work Phone: [facility] - Family MedicineComment on above:Type 2 diabetes mellitus without complication, without long-term current use of insulin ([facility]); Non-seasonal allergic rhinitis, unspecified triggerStart: 09-03-2024 End: 91-44-6245cmzsgyhglyOWTSSelect Medical Specialty Hospital - Cincinnatitart: 09-03-2024 End: 07-52-6369Ytejwi outpatient visit 25 Artis Thacker DO Work Phone: [facility] Internal Medicine - Family MedicineComment on above:Type 2 diabetes mellitus without complication, without long-term current use of insulin ([facility]) (Primary Dx); Special screening for malignant neoplasm of colon; Chronic combined systolic and diastolic CHF (congestive heart failure) ([facility]); Non-seasonal allergic rhinitis, unspecified trigger; Primary osteoarthritis of right shoulderStart: 09-03-2024 End: 39-55-7706qytiesraxiBSHDUnitypoint Health Meriter Hospital PPGStart: 08-25-2024 End: 10-30-2980BowwsfNdrg Albertina Thacker DO Work Phone: [facility] Medicine - Family MedicineComment on above:Type 2 diabetes mellitus without complication, without long-term current use of insulin ([facility])Start: 06-07-2024 End: 68-78-1255Ghnqavwas encounterJomagdalene Thacker DO Work Phone: [facility] - [facility] Hospitaltart: 06-05-2024 End: 30-72-0736dqmzyitqvxSPTZSelect Medical Specialty Hospital - Cincinnatitart: 06-05-2024 End: 75-60-6682Npmdkt outpatient visit 25 minutesGriseldamagdalene Thacker DO Work Phone: [facility] - [facility] HospitalComment on above:Type 2 diabetes mellitus without complication, without long-term current use of insulin ([facility]) (Primary Dx); Chronic combined systolic and diastolic CHF (congestive heart failure) ([facility]); Obesity, morbid ([facility]); Stage 3b chronic kidney disease ([facility]); Encounter for screening for malignant neoplasm of prostate; Encounter for immunization; Primary osteoarthritis of right shoulder; Non-seasonal allergic rhinitis, unspecified triggerStart: 06-05-2024 End: 25-25-6825vbbkocxhxgJYTZPiedmont August[facility]ulatory PPGStart: 03-01-2024 End: 15-26-3254Fdoplzobb encounterMaria B Shantelleing SERVICE TECHNICIAN Work Phone: [facility] SWS ORTHOComment on above:ReferralStart: 02-29-2024 End: 33-19-7802Ulqrux flowsheetMaria B Apling SERVICE TECHNICIAN Work Phone: [facility] ORTHOPAEDICSStart: 02-29-2024 End: 54-39-8315Qxffst flowsheetMaria B Apling SERVICE TECHNICIAN Work Phone: [facility] ORTHOPAEDICSStart: 02-29-2024 End: 91-89-9621Cvtjvl outpatient visit 25 minutesMaria B Apling SERVICE TECHNICIAN Work Phone: [facility] CI ORTHOPAEDICSComment on above:Right shoulder pain, unspecified chronicity (Primary Dx); Chronic pain of both knees; Chronic pain of both ankles; Impingement of right shoulderStart: 02-29-2024 End: 28-56-2459pfancdjfycYMLQP B APLINGNot AvailableStart: 02-21-2024 End: 05-50-9918epgvmcerdiCSXZPiedmont Augusta Ambulatory PPGStart: 02-21-2024 End: 19-13-8277Plqswn outpatient visit 25 minutesJomagdalene Thacker DO Work Phone: [facility] - Family MedicineComment on above:Type 2 diabetes mellitus without complication, without long-term current use of insulin ([facility]) (Primary Dx); Chronic combined systolic and diastolic CHF (congestive heart failure) ([facility]); Primary osteoarthritis of right shoulder; Chronic right shoulder pain; Primary osteoarthritis of both anklesStart: 01-17-2024 End: 20-88-3036lvdrmecqdpNZPHRegency Hospital Cleveland Westtart: 01-16-2024 End: 49-84-6319uoxsfjfwwtVSHOCherokee Regional Medical Center HospitalStart: 01-16-2024 End: 68-65-2684hrnkgiyfkhHOLQUnitypoint Health Meriter Hospital PPGStart: 01-16-2024 End: 21-37-1303Lqkgtrfetnci care manage srvc 14 day dischargeGriseldamagdalene Thacker DO Work Phone: [facility] Internal Medicine - Family [facility] HospitalComment on above:Chronic combined systolic and diastolic CHF (congestive heart failure) ([facility]) (Primary Dx); Type 2 diabetes mellitus without complication, without long-term current use of insulin ([facility]); Primary osteoarthritis of right shoulder; Stage 3b chronic kidney disease ([facility]); Hyperlipidemia, unspecified hyperlipidemia typeStart: 01-09-2024 End: 20-74-4628Fnnmtfnyq encounterMisty Domingo [facility]EProMedica [facility] Internal Medicine - Family [facility] Campustart: 01-02-2024 End: 15-07-8761kvdmsgrzvhHJGFPiedmont Augusta Ambulatory PPGStart: 01-02-2024 End: 88-93-8824Avngmqjdpwiq care manage srvc 14 day dischargeGriseldamagdalene Thacker DO Work Phone: [facility] Internal Medicine - Family MedicineComment on above:Acute on chronic systolic congestive heart failure ([facility]) (Primary Dx); Essential hypertension; Stage 3b chronic kidney disease ([facility]); Type 2 diabetes mellitus without complication, without long-term current use of insulin ([facility]); Obesity, morbid ([facility])Start: 12-26-2023 End: 09-03-7753Cvnkcujwi encounterMerritt Thacker DO Work Phone: [facility] Internal Medicine - Family MedicineStart: 12-14-2023 End: 20-13-3341Afrcaelnh encounterSelma Quijano [facility] Internal Medicine - Family MedicineStart: 11-18-2023 End: 21-53-3588ZujwhvRybtn Postell [facility] Internal Medicine - Family MedicineComment on above:Type 2 diabetes mellitus without complication, without long-term current use of insulin ([facility])Start: 09-15-2023 End: 52-81-5936Esydqugwx encounterNitza Oneal [facility] Internal Medicine - [facility] MedicineStart: 09-07-2023 End: 18-53-7154szpgemxrlkQVHL [facility] HospitalStart: 09-07-2023 End: 09-05-6875Qjnwaz outpatient visit 25 minutesMerritt Thacker DO Work Phone: [facility] Internal Medicine - Family MedicineComment on above:Type 2 diabetes mellitus without complication, without long-term current use of insulin ([facility]) (Primary Dx); Stage 3b chronic kidney disease ([facility]); Essential hypertension; Class 3 severe obesity due to excess calories with serious comorbidity and body mass index (BMI) of60.0 to 69.9 in adult ([facility]); Immunization dueStart: 09-07-2023 End: 65-63-8096zspoapaswmDPEUUnitypoint Health Meriter Hospital PPGStart: 42-65-7229Ysjnnvuaw encounterKaveh Mayer DO Work Phone: [facility] ORTHOPAEDICSComment on above:Refund Checks Start: 04-11-2023 End: 04-11-0630yuwuppxqxrXEESP B APLINGNot AvailableStart: 07-13-2021 End: 58-59-0591ahixgvfzukCnaofgq HouseFacility:[facility] Start: 32-17-0359Gzgaxgckk for general adult medical examination without abnormal findingsDR DEVANG BIRCHTuscarawas Hospital HospitalStart: 10-01-2020 End: 52-74-2420dkzmlnkkkkJQ DEVANG HOUSEFacility:Z3Wowuk: 10-01-2020 End: 97-68-1457Mehbgywbm for general adult medical examination without abnormal findingsDR DEVANG HOUSEFacility:L5Rbkth: 04-04-2020 End: 44-97-5242bqxlvhdleaIF DEVANG HOUSEFacility:G7Spate: 11-25-2019 End: 95-96-5464ceavwjwdlrDI DEVANG HOUSEFacility:M3Cfvhn: 10-18-2019 End: 25-38-1106kotfrcayluDC DEVANG HOUSEFacility:H1 Procedures DateProcedureProcedure DetailPerforming ClinicianStart: 28-10-9572Jortc depression screening assessmentJomagdalene Thacker DO Work Phone: Start: 99-87-2407Bihfdndopvsoro aspir&/inj major jt/bursa w/o usMaria B Apling SERVICE TECHNICIAN Work Phone: Start: 09-82-2880Qvmiv depression screening assessment Merritt Thacker DO Work Phone: Start: 03-69-3836Joygwyidxyny [Mass/volume] in Urine by Test stripGriseldamagdalene Dents DO Work Phone: Start: 45-58-6451Hasshc-up visitFollow-upMERRITT Eng KIRSTIE Start: 27-36-3869Uhffy depression screening assessmentGriseldamagdalene Dents DO Work Phone: Start: 03-03-4846Ftyzw depression screening assessment Merritt Thacker DO Work Phone: Start: 79-86-4620Qxbey depression screening assessment Merritt Thacker DO Work Phone: Start: 98-23-6691Ohcwkgcpsmzk [Mass/volume] in Urine by Test Luther Lynneyosibharti DO Work Phone: Start: 96-52-6187FHL screeningDR DEVANG HOUSEComment on above:Performed By: #### TSH, LIPID, CMP, PSAD, T4 #### [facility] [address] [place] [address] Wanda Conrad Plan of Treatment DateCare ActivityDetailAuthorStart: 52-58-3886JHiF,Tdap and Td Vaccines (2 - Td or Tdap)DTaP,Tdap and Td Vaccines (2 - Td or Tdap)[facility] SystemStart: 33-03-0194Pwyvb BMI ScreeningAdult BMI ScreeningD[facility] SystemStart: 73-91-6195Mebpuvj ScreeningTobacco ScreeningDiley Ridge Medical Center SystemStart: 30-82-7025Keskw BMI ScreeningAdult BMI ScreeningDiley Ridge Medical Center SystemStart: 64-98-5427Tzuwdlzlxx ScreeningDepression ScreeningDiley Ridge Medical Center SystemStart: 85-65-2219Yllyth Use: DiabeticStatin Use: DiabeticDiley Ridge Medical Center SystemStart: 01-02-8873Euiiguf ScreeningTobacco ScreeningDiley Ridge Medical Center SystemStart: 90-62-7568Gedpf BMI ScreeningAdult BMI ScreeningDiley Ridge Medical Center SystemStart: 84-30-7363Omavrimkjy ScreeningDepression ScreeningD[facility] SystemStart: 16-80-2079Slhietb ScreeningTobacco ScreeningD[facility] SystemStart: 00-86-9478Qwdwzpccl vaccinationInfluenza VaccineD[facility] Ridge Medical Center SystemStart: 61-15-4192Rnxih screening for proteinUrine MicroalbuminD[facility] System Start: 76-16-3726Jatcy BMI ScreeningAdult BMI ScreeningD[facility] Center System Start: 24-31-2720Dyandknxug ScreeningDepression ScreeningD[facility] System Start: 55-53-5315Hihadal ScreeningTobacco ScreeningDiley Ridge Medical Center SystemStart: 01-03-2025 End: 90-34-4264Iggnyke encounter utadmdhjc36/07/2025 1:00 PM EDT Office Visit [facility] [address] [place] [address] Merritt Thacker, DO [address] [id number] [facility] MedicineStart: 99-53-7139Skzjdqsonc Screening Depression ScreeningProLima [facility] Hospital SystemStart: 66-25-7374Laixntu Screening Tobacco ScreeningProLima City Hospital SystemStart: 92-58-7264Yyysd BMI Screening Adult BMI ScreeningProLima City Hospital SystemStart: 68-75-1043Bpiyxruyux Screening Depression ScreeningProLima City Hospital SystemStart: 49-82-4765Wckcnwr Screening Tobacco ScreeningProWayne HealthCare Main Campustart: 09-03-2024 End: 08-72-5270Uutcifi encounter ljhuqmtsx72/07/2025 1:30 PM EDT Office Visit [facility] - [facility] [address] [place] [address] Merritt Thacker, DO [address], [id number] [facility] MedicineStart: 03-45-9452Mophot Use: DiabeticStatin Use: DiabeticProWayne HealthCare Main Campustart: 06-05-2024 End: 67-26-8937Xetzttq encounter dnaugsmjm41/07/2025 1:00 PM EST Office Visit [facility] - [facility] Medicine [address] [place] [address] Merritt Thacker, DO [address], [id number] [facility] MedicineStart: 02-29-2024 End: 05-46-7239Mputxcv encounter zpsxmaqoz25/02/2024 12:45 PM EDT Office Visit [facility] [address] [place] [id number] Inna Jefferson, SERVICE TECHNICIAN [address] [place] [address] Right shoulder pain, unspecified chronicity (Primary Dx)[facility] ORTHOPAEDICSComment on above:Right shoulder pain, unspecified chronicity (Primary Dx)Start: 02-21-2024 End: 58-81-9856Adlhwtp encounter bmvucyohd79/24/2024 3:00 PM EDT [facility] [address] [place] [address] Merritt Thacker, DO [address] [place], [id number] [facility] Internal [facility] - [facility] MedicineStart: 29-20-1733Mfcykdtmn vaccination Influenza VaccineProLima City Hospital SystemStart: 01-16-2024 End: 83-16-4746Kzonnws encounter qrmnwzcuq21/19/2024 4:15 PM EDT Office Visit [facility] - [facility] [address] [place] [address] Merritt Thacker, DO [address] [facility], [id number] [facility] - [facility] MedicineStart: 82-70-6289Xfhwcwue foot examination Diabetic Foot ExamProLima City Hospital SystemStart: 20-13-0316Uxpgj screening for proteinUrine MicroalbuminProLima City Hospital SystemStart: 15-60-6630Ajokjegzrpydwh of varicella zoster vaccineZoster (Shingles) Vaccine (1 of 2)[facility] SystemStart: 95-61-3501Fpmol BMI Follow Up PlanAdult BMI Follow Up PlanProLima City Hospital SystemStart: 07-09-2524Evhuebxu screeningDiabetic Ophthalmology Exam [facility] System End: 09-10-7866PSW W Auto Differential panel - BloodCBC auto differential Lab Routine Stage 3b chronic kidney disease (CMS-HCC) 1 Occurrences starting 0 01/16/2024 until 01/15/2025[facility] HospitalThe App3 SystemComment on above:1 Occurrences starting 01/16/2024 until 01/15/2025ologuard Non-ProMedicaCologuard Non- [facility] Lab Routine Special screening for malignant neoplasm of colon Ordered: 09/03/2024[facility] Work Phone: Comment on above:Ordered: 09/03/2024 End: 24-54-4270Msocmtaoddaag metabolic 2000 panel - Serum or PlasmaComprehensive metabolic panel Lab Routine Hyperlipidemia, unspecified hyperlipidemia type 1 Occurrences starting 01/16/2024 until 01/15/2025[facility] Work Phone: Comment on above:1 Occurrences starting 01/16/2024 until 01/15/2025 End: 59-55-2004Qelnhmcxbz A1c/Hemoglobin.total in BloodHemoglobin A1c Lab Routine Type 2 diabetes mellitus without complication, without long-term current use of insulin ([facility]) 1 Occurrences starting 06/05/2024 until 06/05/2025 [facility] Work Phone: Comment on above:1 Occurrences starting 06/05/2024 until 06/05/2025Hemoglobin A1c/Hemoglobin.total in BloodHemoglobin A1c Lab Routine Type 2 diabetes mellitus without complication, without long-term current use of insulin ([facility]) 06/05/2024 5:50 PM [facility]my[facility] End: 12-44-4277Wjzuuadlig A1c/Hemoglobin.total in BloodHemoglobin A1c Lab Routine Type 2 diabetes mellitus without complication, without long-term current use of insulin ([facility]) 1 Occurrences starting 09/07/2023 until 09/06/2024 [facility] Work Phone: Comment on above:1 Occurrences starting 09/07/2023 until 09/06/2024Hemoglobin A1c/Hemoglobin.total in BloodHemoglobin A1c Lab Routine Type 2 diabetes mellitus without complication, without long-term current use of insulin ([facility]) 09/07/2023 11:28 PM [facility] End: 60-25-1381Zdcqumnrrv A1c/Hemoglobin.total in BloodHemoglobin A1c Lab Routine Type 2 diabetes mellitus without complication, without long-term current use of insulin ([facility]) 1 Occurrences starting 01/16/2024 until 01/15/2025 [facility] SystemComment on above:1 Occurrences starting 01/16/2024 until 01/15/2025 End: 67-75-4679Dyczp 1996 panel - Serum or PlasmaLipid profile Lab Routine Hyperlipidemia, unspecified hyperlipidemia type 1 Occurrences starting until 01/15/2025[facility]Comment [facility] above:1 Occurrences starting 01/16/2024 until 01/15/2025 End: 58-63-1836Txtpzynxw [Mass/volume] in Serum or PlasmaMagnesium Lab Routine Chronic combined systolic and diastolic CHF (congestive heart failure) ([facility]) 1 Occurrences starting 01/16/2024 until 01/15/2025[facility] Comment on above:1 Occurrences starting 01/16/2024 until 01/15/2025 End: 35-61-3892Cwhalejiugoj - Albumin: Creatinine Urine RatioMicroalbumin - Albumin: Creatinine Urine Ratio Lab Routine Type 2 diabetes mellitus without complication, without long-term current use of insulin ([facility]) 1 Occurrences starting 01/16/2024 until 01/15/2025[facility] ServicesComment on above:1 Occurrences starting 01/16/2024 until 01/15/2025 Immunizations Immunization DateImmunizationNotesCare CacdgfyyRmpckofx70-75-6635Dktxnhlb trivalent influenza vaccine, adjuvanted, preservative freeMerritt Kirstie DO Work Phone: [facility] Nqylya77-65-8408Xlykfwacjiuj, In Clinic,; Translations: [Drug or medicament (substance)]Merritt Thacker DO Work Phone: [facility] Qwwjpr35-87-1150tnovpffrf virus vaccine, unspecified formulationMerritt Filipes DO Work Phone: [facility] Bqixbw07-93-5991iquaxvbpn, injectable, quadrivalent, preservative freeMerritt Filipes DO Work Phone: [facility] Centermydeco Qmrlim26-44-7300gjyqhzn toxoid, reduced diphtheria toxoid, and acellular pertussis vaccine, adsorbedJomagdalene Thacker DO Work Phone: [facility] HospitalGmazor14-12-1639hgegoutpl virus vaccine, unspecified formulationJomagdalene Thacker DO Work Phone: [facility] Payers DatePayer CategoryPayerPolicy ID2025Medicare O [id number] [id number] [id number] [id number]-bwa39-41-5897Hnijrfy [id number] 2..840.1.794930.3.57[id number] 2.16840.1.942757.3.57[id number] 2.16.840.1.023378.3.57[id number] 2.16.840.1.779145.3.57[id number] 2..840.1.895377.3.579.2.239381-04-8986Hxkuruk39903 2.16.840.1.904452.3.57[id number] 2.16.840.1.465770.3.57[id number] 2.16.840.1.737149.3.57[id number] 2.16840.1.302183.3.579.[id number] 2..840.1.428289.3.57[id number] 2.16.840.1.418184.3.57[id number] 2..840.1.200331.3.57[id number] 2.16.840.1.528839.3.57[id number] 2.840.1.747747.3.57[id number] 2.840.1.303302.3.57[id number] 2.0.1.312907.3.579.[id number] 2.840.1.875389.3.579.2.551889-11-2115BylimjaTVB492U69937QoxosvaOgzxkcd [id number] 2.840.1.170175.3.579.2.531 Social History DateTypeDetailFacilityStart: 01-10-2023 End: 73-49-5999Rfsjqoa smoking status NHISNever smoked tobaccoNOMS Healthcare Start: 01-10-2023 End: 13-91-9022Gbjyacc use and exposureSmokeless tobacco non-userNOMS Healthcare Start: 06-09-2023 End: 99-07-6094Uqrieoi intakeCurrent drinker of alcohol (finding)[facility] Start: 07-10-2020 End: 86-46-1313Ibuwarv of Social functionNOCO HealthcareStart: 07-10-2020 End: 27-33-5428Phwamgp use panelBEAVER VALLEY [facility]OSPITAL HealthcareStart: 06-38-1018Bcm Assigned At BirthNot on [facility] depression screening assessment0 [facility] Centertart: 29-19-1656Aelxcpe CommentrarePFormerly [facility] Hospitaltart: 16-37-6305LzzAqte (finding)[facility] Clinical Notes 06-17-2023 to 02-15-2025 Note Date & EguiZqqbNlleqbfl42-95-8160 Miscellaneous Notes* Telephone Encounter - Noemi Caraballo [...] Comments: Left message for patient to contact critical care unit manager. Patient is overdue with cologuard order. Will send letter to patient. documented in this encounterW[facility]09-[facility]-2025 Telephone encounter Note* Telephone Encounter - [...] Comments: Left message for patient to contact critical care unit manager. Patient is overdue with cologuard order. Will send letter to patient. [facility]08-25-2025 NoteSUBJECTIVE Reason for Visit: Cristobal Garcia is a 59 y.o. year old male patient being seen for heart failure hospital follow-up. HPI: Cristobal Garcia is a 59 y.o. year old male with significant medical history of heart failure with preserved ejection fraction, hypertension, diabetes type 2, hyperlipidemia, and JACQUE. Recently admitted at [facility] 12/31/2024 for SOB, acute on chronic [...] ago, he is unsur (more content not included)...[facility]04-07-2025 History of Present illness Narrative* Merritt Thacker, DO - 09/03/2024 1:30 PM EDT IM PROGRESS NOTE Patient - Cristobal Garcia Age - 58 y.o. - 1965 ASSESSMENT & PLAN 1. Type 2 diabetes mellitus without complication, without long-term current use of insulin ([facility]) (Primary) - goals of treatment reviewed with [...] systolic and diastolic CHF (congestive heart failure) ([facility]) - symptoms are stable -GDMT: Spironolactone, losartan, [...] exam was: 2024. Recently referred Ophthalmology in [place], and [facility] need [facility] Patient BP monitoring is done sporadically, and [...] (!) 186.3 kg (410 lb 12.8 oz) BxM999% BMI 66.30 kg/m Physical Exam Vitals reviewed. [...] Testing No results found. Merritt Thacker DO., [facility] Physicians Office: [phone] documented in this encounterWyandot Memorial Hospital01-09-2025 Miscellaneous Notes* Telephone Encounter - [facility] Levirodrigo - 06/07/2024 1:18 PM EST Called for pat assist, need proof of income, insurance card and signature documented in this encounterWyandot Memorial Hospital01-09-2025 Telephone encounter Note* Telephone Encounter - [facility] Jaimee - 06/07/2024 1:18 PM EST Called for pat assist, need proof of income, insurance card and signature [facility]01-07-2025 History of Present illness Narrative* Merritt Thacker DO - 06/05/2024 1:00 PM EST IM PROGRESS NOTE Patient - Cristobal Garcia Age - 58 y.o. - 1965 ASSESSMENT & PLAN 1. Type 2 diabetes mellitus without complication, without long-term current use of insulin ([facility]) (Primary) -goals of treatment reviewed with the [...] systolic and diastolic CHF (congestive heart failure) ([facility]) -has gained weight -needs to restart his [...] 90 tablet; Refill: 0 3. Obesity, morbid ([facility]) -this plays a major role in his diabetes and heart failure -consider adding G LP 1 agent in addition to current regimen 4. Stage 3b chronic kidney disease ([facility]) -GFR ranges 46-76 over the past year [...] Testing No results found. Merritt Thacker DO., [facility] Office: [phone] documented in this encounterWyandot Memorial Hospital10-04-2024 Telephone encounter Note* Telephone Encounter - Jieallie Murillo - 03/02/2024 1:41 PM EDT Called and left vm for patient. [facility] [id number] Miscellaneous Notes* Telephone Encounter - Jieallie Murillo - 03/02/2024 1:41 PM EDT Called and left vm for patient. * Telephone Encounter - Jie Murillo - 03/01/2024 1:54 PM EDT 's office called regarding a referral they received. is not accepting new patients at this time. Please advise. documented in this encounterCameron Regional Medical [id number] Telephone encounter Note* Telephone Encounter - Jie Murillo - 03/01/2024 1:54 PM EDT 's office called regarding a referral they received. is not accepting new patients at this time. Please advise. [facility] [id number] History of Present illness Narrative* Inna Jefferson [...] prn. He notes he never heard from [facility] pain management, will send him back for eval of his bilateral knees for possible visco supplementation He notes since he came off his nsaids by his pcp his bilateral ankle and knees have been bothering him. Will send to dr. Payne, he is looking for ankle injections documented in this encounterCameron Regional Medical [id number] History of Present illness Narrative* Merritt Thacker, DO - 02/21/2024 3:00 PM EDT IM PROGRESS NOTE Patient - Cristobal Garcia Age - 58 y.o. - 1965 ASSESSMENT & PLAN 1. Type 2 diabetes mellitus without complication, without long-term current use of insulin ([facility]) -I reviewed the results of the recent [...] systolic and diastolic CHF (congestive heart failure) ([facility]) -GDMT includes ARB (losartan), beta-bishop (carvedilol), spironolactone [...] Testing No results found. Merritt Thacker DO., [facility] Phys[facility] Office: [phone] documented in this encounterWyandot Memorial Hospital08-19-2024 History of Present illness Narrative* Merritt [...] post discharge medication. He was discharged from [facility] after being admitted for acute on [...] a daily basis. He ran out of Aplicor and is taking his old furosemide. In [...] for home nocturnal oxygen. Request sent to [employer]. Diagnoses and all orders for this visit: Chronic combined systolic and diastolic CHF (congestive heart failure) ([facility]) - aspirin 81 mg chewable tablet; Chew [...] complication, without long-term current use of insulin ([facility]) - Hemoglobin A1c; Future - Microalbumin - [...] before bedtime. Stage 3b chronic kidney disease ([facility]) - CBC auto differential; Future Hyperlipidemia, unspecified hyperlipidemia type - Comprehensive metabolic panel; Future - Lipid profile; Future documented in this encounterSouthwest General Health Center[address] [facility] [id number] Miscellaneous Notes* Telephone Encounter - Eneida Lane CMA - 01/09/2024 4:59 PM EDT Alyssa from [facility] called wanting to know if you would follow this pt for home health care as he was discharged today from [facility] * Telephone Encounter - Merritt Thacker [...] EDT Message noted. Yes documented in this encounterWyandot Memorial Hospital08-12-2024 Telephone encounter Note* Telephone Encounter - Eneida Lane CMA - 01/09/2024 4:59 PM EDT Alyssa from [facility] called wanting to know if you would follow this pt for home health care as he was discharged today from [facility]08-12-2024 Telephone encounter Note* Telephone Encounter - Merritt Thacker DO - 01/09/2024 4:59 PM EDT Message noted. Yes [facility]08-12-2024 Telephone encounter Note* Telephone Encounter - Merritt Thacker DO - 01/09/2024 4:59 PM EDT Message noted. Yes. He will need a TCM [facility]08-12-2024 Telephone encounter Note* Telephone Encounter - Blanca Hermosillo - 01/09/2024 4:59 PM EDT He comes in 01/15 is that okay [facility]08-12-2024 Telephone encounter Note* Telephone Encounter - Merritt Thacker DO - 01/09/2024 4:59 PM EDT Message noted. Yes [facility]08-05-2024 History of Present illness Narrative* Merritt [...] post discharge medication. Patient was discharge from [facility] on 12/19/2023 after being admitted for [...] allhis symptoms since he was discharged from [facility], and actually feels worse. It does [...] Acute on chronic systolic congestive heart failure ([facility]) - I advised the patient that he needs to be admitted to the hospital to re- evaluate his current medical regimen, particularly with an eye toward starting SGLT2 agent, Entresto, spironolactone. I phoned to the [facility], but no rooms are available and patient is are being boarded in the ER. I advised the patient to had directly to the [place] ER for readmission at this time. Essential hypertension - overall control today. -no changes. Treatment for congestive heart failure will involve controlling hypertension Stage 3b chronic kidney disease ([facility]) - need to reassess renal function given his description of ice tea urine - admit to hospital as above Type 2 diabetes mellitus without complication, without long-term current use of insulin ([facility]) - previously on Rybelsus plus metformin - currently only on metformin, which given his kidney disease may not be the best choice - probably needs SGLT2 agent given his heart failure and diabetes - this will be evaluated during admission Obesity, morbid ([facility]) - BMI 68 - some of this may be water weight. Needs to be addressed during admission. documented in this encounterWyandot Memorial Hospital07-29-2024 Miscellaneous Notes* Telephone Encounter - Blanca Hermosillo - 12/26/2023 4:08 PM EDT ----- Message from Dr. Merritt Thacker DO sent at 09/07/2023 7:47 PM EDT ----- DM recheck * Telephone Encounter - Blanca Hermosillo - 12/26/2023 4:08 PM EDT Pt hung up documented in this encounterWyandot Memorial Hospital07-29-2024 Telephone encounter Note* Telephone Encounter - Blanca Hermosillo - 12/26/2023 4:08 PM EDT ----- Message from Dr. Merritt Thacker DO sent at 09/07/2023 7:47 PM EDT ----- DM recheck [facility]07-29-2024 Telephone encounter Note* Telephone Encounter - Blanca Hermosillo - 12/26/2023 4:08 PM EDT Pt hung up [facility]07-17-2024 Miscellaneous Notes* Telephone Encounter - Selma [...] Patient notified and understands. documented in this encounterWyandot Memorial Hospital07-17-2024 Telephone encounter Note* Telephone Encounter - Selma Quijano CMA - 12/14/2023 1:39 PM EDT Patient called and stated he is retaining fluid in his abdomen area and it is making him so SOB. What do you suggest he do? [facility]07-17-2024 Telephone encounter Note* Telephone Encounter - Merritt Thacker DO - 12/14/2023 1:39 PM EDT Message noted. I have no room for him today He will need to go to the ED [facility]07-17-2024 Telephone encounter Note* Telephone Encounter - Selma Quijano CMA - 12/14/2023 1:39 PM EDT Patient notified and understands. [facility]04-18-2024 Miscellaneous Notes* Telephone Encounter - Nitza Oneal CMA - 09/15/2023 10:15 AM EDT Pt called and states he was wondering if his sample of RYBELSUS was ready. It is and he states he will pick it up. * Telephone Encounter - Blanca Hermosillo - 09/15/2023 10:15 AM EDT Picked up documented in this encounterWyandot Memorial Hospital04-18-2024 Telephone encounter Note* Telephone Encounter - Nitza Oneal CMA - 09/15/2023 10:15 AM EDT Pt called and states he was wondering if his sample of RYBELSUS was ready. It is and he states he will pick it up. [facility]04-18-2024 Telephone encounter Note* Telephone Encounter - Blanca Hermosillo - 09/15/2023 10:15 AM EDT Picked up [employer]04-10-2024 History of Present illness Narrative* Merritt Thacker, DO - 09/07/2023 1:00 PM EDT IM PROGRESS NOTE Patient - Cristobal Garcia Age - 57 y.o. - 1965 [facility] # - [id number] ASSESSMENT & PLAN 1. Type 2 diabetes mellitus without complication, without long-term current use of insulin ([facility]) - Goals of treatment reviewed with patient - Currently on metformin and sitagliptan - Repeat A1c to assess efficacy of treatment. Might be better with GLP-1 and SGLT-2 agents - Comprehensive metabolic panel; Future - Hemoglobin A1c; Future - Lipid profile; Future 2. Stage 3b chronic kidney disease ([facility]) - Repeat GFR - Renal protective strategies reviewed with patient. - Advised patient to stop voltaren tablets - May benefit from SGLT-2 3. Essential hypertension - Goals reviewed with patient - Currently taking losartan 50 mg daily - No change today 4. Class 3 severe obesity due to excess calories with serious comorbidity and body mass index (BMI)of 60.0 to 69.9 in adult ([facility]) - We reviewed importance of weight loss [...] Testing No results found. Merritt Thacker DO., [facility] Office: [phone] documented in this encounterWyandot Memorial Hospital01-19-2024 Telephone encounter Note* Telephone Encounter - [facility] July - 06/17/2023 9:18 AM EST Sarah, patient called stated that he received two refund checks from [employer]. He deposited the checks and then was told from his bank that they bounced. If you could look into this for me please, all I am seeing is that the refunds were sent out. Call back # [phone] [facility] [id number] Miscellaneous Notes* Telephone Encounter - [facility] July - 06/17/2023 9:18 AM EST Sarah, patient called stated that he received two refund checks from [employer]. He deposited the checks and then was told from his bank that they bounced. If you could look into this for me please, all I am seeing is that the refunds were sent out. Call back # [phone] documented in this encounterNOCO HealthcareEvaluation note* Diagnosis Right shoulder pain, unspecified chronicity- Primary Chronic pain of both knees Chronic pain of both ankles Impingement of right shoulder documented in this encounter [facility]* Diagnosis Type 2 diabetes mellitus without complication, without long-term current use of insulin ([facility] Primary Chronic combined systolic and diastolic CHF (congestive heart failure) ([facility]) Obesity, morbid ([facility]) Morbid obesity Stage 3b chronic kidney disease ([facility]) Encounter for screening for malignant neoplasm of prostate Encounter for immunization Primary osteoarthritis of right shoulder Non-seasonal allergic rhinitis, unspecified trigger documented in this encounter [facility] SystemEvaluation note* Diagnosis Type 2 diabetes mellitus without complication, without long-term current use of insulin ([facility]) documented in this encounter [facility]Evaluation note* Diagnosis Acute on chronic systolic congestive heart failure ([facility])- Primary Essential hypertension Unspecified essential hypertension Stage 3b chronic kidney disease ([facility]) Type 2 diabetes mellitus without complication, without long-term current use of insulin ([facility]) Obesity, morbid ([facility]) Morbid obesity documented in this encounter [facility] note* Diagnosis Type 2 diabetes mellitus without complication, without long-term current use of insulin ([facility])- Primary Stage 3b chronic kidney disease ([facility]) Essential hypertension Unspecified essential hypertension Class 3 severe obesity due to excess calories with serious comorbidity and body mass index (BMI) of60.0 to 69.9 in adult ([facility]) Immunization due documented in this encounter [facility] SystemEvaluation note* Diagnosis Chronic combined systolic and diastolic CHF (congestive heart failure) ([facility]) - Primary Type 2 diabetes mellitus without complication, without long-term current use of insulin ([facility]) Primary osteoarthritis of right shoulder Stage 3b chronic kidney disease ([facility]) Hyperlipidemia, unspecified hyperlipidemia type documented in this encounter [facility] note* Diagnosis Type 2 diabetes mellitus without complication, without long-term current use of insulin ([facility])- Primary Chronic combined systolic and diastolic CHF (congestive heart failure) ([facility]) Primary osteoarthritis of right shoulder Chronic right shoulder pain Pain in joint, shoulder region Primary osteoarthritis of both ankles documented in this encounter [facility] note* Diagnosis Type 2 diabetes mellitus without complication, without long-term current use of insulin ([facility]) documented in this encounter [facility] note* Diagnosis Type 2 diabetes mellitus without complication, without long-term current use of insulin ([facility])- Primary Special screening for malignant neoplasm of colon Special screening for malignant neoplasms, colon Chronic combined systolic and diastolic CHF (congestive heart failure) ([facility]) Non-seasonal allergic rhinitis, unspecified trigger Primary osteoarthritis of right shoulder documented in this encounter [facility] SystemEvaluation note* Diagnosis Type 2 diabetes mellitus without complication, without long-term current use of insulin ([facility]) Non-seasonal allergic rhinitis, unspecified trigger documented in [...] Diagnoses Chronic pain of both ankles Procedures WI OFFICE/OUTPATIENT NEW HIGH MDM 60 MINUTES Inna Jefferson NP [address] [place] [address] Ivan Payne MD [address] [place] [address] [place] [address] Referral IDStatusReasonStart DateExpiration DateVisits RequestedVisits [id number] Review Specialty Services Required * Consultation (Routine) - Pending ReviewSpecialtyDiagnoses / ProceduresReferred By ContactReferred To ContactPain Medicine Diagnoses Chronic pain of both knees Procedures WI OFFICE/OUTPATIENT NEW HIGH MDM 60 MINUTES Inna Jefferson NP [address] [place] [address] Karel Blackwell MD [address] [place] [address] Referral IDStatusReasonStart DateExpiration DateVisits RequestedVisits [id number] Review Specialty Services Required * Clinic-Administered Medication (Routine) - AuthorizedSpecialtyDiagnoses / ProceduresReferred By ContactReferred To ContactOrthopaedic Surgery Diagnoses Impingement of right shoulder Procedures L Inj/Asp: R subacromial bursa Inna Jefferson NP [address] [facility] [address] [place] [address] Referral IDStatusReasonStart DateExpiration DateVisits RequestedVisits [id number]/20243/31/[id number] GABY Paz for referral (narrative)* Consultation (Routine) - Pending ReviewSpecialtyDiagnoses / ProceduresReferred By ContactReferred To Contact Orthopedic Surgery / MED-SURG/ORTHOPEDICS Diagnoses Primary osteoarthritis of right shoulder Chronic right shoulder pain Primary osteoarthritis of both ankles Merritt Thacker DO [address] [place] [address] Kaveh Mayer DO [address] [facility] [address] [place] [address] Referral IDStatusReasonStart DateExpiration DateVisits RequestedVisits [id number] Review Specialty Services Required [facility] [...] complication, without long-term current use of insulin ([facility]) Merritt Thacker DO [address] [place] [address] Referral IDStatusReasonStart DateExpiration DateVisits RequestedVisits [id number] Additional Source Comments (unrecognized sect ion and content) No Status Records FoundNo Status Records FoundNo Status Records FoundNo Status Records FoundNo Status Records FoundNo Status Records Found INFORMATION SOURCE (unrecogn ized section and content) DATE CREATED AUTHOR 10/11/2020 [facility] DATE CREATED AUTHOR AUTHOR'S ORGANIZ ATION 07/03/2022 [facility] DATE CREATED AUTHOR AUTHOR'S ORGANIZ ATION 03/02/2024 [facility] EPIC DATE CREATED AUTHOR AUTHOR'S ORGANIZ ATION 09/05/2024 [facility] DATE CREATED AUTHOR AUTHOR'S ORGANIZ ATION 09/05/[address] [facility] DATE CREATED AUTHOR AUTHOR'S ORGANIZ ATION 01/22/2025 [facility] Reason for Visit (unrecogniz ed section and content) ReasonOnset DateCommentsRefund [id number]lty Diagnoses / ProceduresReferred By ContactReferred To ContactOrthopaedic Surgery Diagnoses Primary osteoarthritis of right shoulder Chronic right shoulder pain Primary osteoarthritis of both ankles Procedures AMB REFERRAL TO ORTHOPEDIC SURGERY Merritt Thacker MD [address] [place] [address] Kaveh Mayer DO [address] [facility] [address] [place] [address] Referral IDStatusReasonStart DateExpiration DateVisits RequestedVisits [id number] DateCommentsReferral 4ReasonCommentsHypertensionHyperlipidemiacvReasonOnset DateCommentsMed [id number] and swelling belly on downNo feverReason CommentsDiabetesStomach some hard skinReasonCommentsFollow-upReasonComments DiabetesReasonCommentsMed RefillReasonCommentsDiabetesReasonOnset DateComments Colon Cancer Ormolezdl66/19/2025 Care Teams (unrecognized sec tion and content) Team MemberRelationshipSpecialtyStart DateEnd Date Merritt Thacker MD [address] [place] [address] PCP - GeneralInternal Fizwsjpy94/30/23Team MemberRelationshipSpecialtyStart Date End Date Merritt Thacker MD [address] [place] [address] PCP - GeneralInternal Vaxuxxlm99/30/23Team MemberRelationshipSpecialtyStart Date End Date Merritt Thacker MD [address] [place] [address] PCP - GeneralInternal Kmymqkux20/30/23Team MemberRelationshipSpecialtyStart Date End Date Merritt Thacker MD [address] [place] [address] PCP - GeneralInternal Puplilaw89/30/23Team MemberRelationshipSpecialtyStart Date End Date Merritt Thacker DO [address] [place] [address] PCP - GeneralInternal Medicine01/12/23Team MemberRelationshipSpecialtyStart Date End Date Juan AntonioyosiMerritt hay DO [address] [place] [address] PCP - GeneralInternal Medicine01/12/23Team MemberRelationshipSpecialtyStart Date End Date Merritt Thacker, DO [address] [place] [address] PCP - GeneralInternal Medicine01/12/23Team MemberRelationshipSpecialtyStart Date End Date Merritt Thacker DO [address] [place] [address] PCP - GeneralInternal Medicine01/12/23Team MemberRelationshipSpecialtyStart Date End Date Merritt Thacker, DO [address] [place] [address] PCP - GeneralInternal Medicine01/12/23Team MemberRelationshipSpecialtyStart Date End Date Merritt Thacker, DO [address] [place] [address] PCP - GeneralInternal Medicine01/12/23Team MemberRelationshipSpecialtyStart Date End Date Merritt Thacker, DO [address] [place] [address] PCP - GeneralInternal Medicine01/12/23Team MemberRelationshipSpecialtyStart Date End Date Merritt Thacker DO [address] [facility] [place] [address] [facility]01/12/23[facility] MemberRelationshipSpecialtyStart Date End Date Merritt Thacker DO [address] [facility] [place] [address] [facility]01/12/23[facility] MemberRelationshipSpecialtyStart Date End Date Merritt Thacker DO [address] [facility] [address] [facility]01/12/23[facility] MemberRelationshipSpecialtyStart Date End Date Merritt Thacker DO [address] [facility] [place] [address] [facility]01/12/23[facility] MemberRelationshipSpecialtyStart Date End Date Merritt Thacker DO [address] [facility] [place] [address] [facility]01/12/23 FOR RECORDS PERTAINING TO PATIENTS WHO [...] BE BASED ON THE PRIMARY CLINICAL RECORDS. [facility]. provides no warranty or guarantee of the accuracy or completeness of information in this document.
[2025-04-08 16:26] LABS: Alanine Aminotransferase 31 U/L (16-63); Albumin Globulin Ratio 0.9; Albumin Level 3.3 g/dL (3.4-5.0); Alkaline Phosphatase 96 U/L (46-116); Anion Gap 9.4; Aspartate Amino Transferase 12 U/L (15-37); Blood Urea Nitrogen 45.0 mg/dL (7.0-18.0); Calcium 8.8 mg/dL (8.5-10.1); Carbon Dioxide 35.3 mmol/L (21.0-32.0); Chloride 101 mmol/L (98-107); Estimated GFR (African America >60 (>=60 mL/min/1.73m^2); Estimated GFR (Non-African Ame 57 (>=60 mL/min/1.73m^2); Globulin 3.5 g/dL; Glucose 108 mg/dL (74-106); Potassium 3.7 mmol/L (3.5-5.1); Sodium 142 mmol/L (136-145); Total Protein 6.8 g/dL (6.4-8.2)
[2025-04-08 16:29] LABS: NT Pro B Type Natriuretic Pept 3215.0 pg/mL (<=900.0)
== END 2025-04-08 15:17 | disposition home or self-care (01) ==
LOC: LAB 15:17
PROVIDERS: PCP Family Medicine; Visit Provider Family Medicine
DX: J21.9 Acute bronchiolitis, unspecified (principal); R89.9 Unspecified abnormal finding in specimens from other organs, systems and tissues; I50.30 Unspecified diastolic (congestive) heart failure
CPT/HCPCS: 36415; 80053; 83880

== ENCOUNTER 2025-04-15 13:23 | Inpatient (IN) | payer MEDICARE, SELFPAY ==
[2025-04-15] VITALS (38 sets, daily range): BP systolic 92–155; BP diastolic 62–92; PULSE 64–86; RESP 16; TEMP 36.3–36.6; O2SAT 79–99; BMI 67.8; BMI 71.7
--- NOTE | 2025-04-15 13:40 | XR_ITS ---
[address] [address] Patient Name: TANIA SANTANA MRN: [id number] date: 1965 Sex: M Assigned Patient Location: ER Current Patient Location: ED.MAIN Accession/Order Number: [id number] Exam Date: 04/15/2025 13:45 Report Date: 04/15/2025 14:39 At the request of: SHREYA HUGGINS MD Procedure: XR chest 1V XR chest 1V 04/15/2025 1:49 PM SIGNS AND SYMPTOMS: sob PROTOCOL: Frontal radiographs of the chest COMPARISON: 03/11/2025 FINDINGS: The trachea is midline. There is cardiomegaly. The lung parenchyma is clear. The bony thorax is intact. Degenerative changes are noted in the shoulders and thoracic spine. XR/XR chest 1V IMPRESSION: There is similar cardiomegaly. No focal consolidation. Impression dictated by: Miles Cha M.D. 04/15/2025 2:39 PM Dictation Location: [place] [address] Electronically authenticated by: [id number] Y Date: 04/15/2025 14:39
--- NOTE | 2025-04-15 13:40 | ECG_ITS ---
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 Measurements Intervals [place] Rate: 67 P: 27 UT: 182 QRS: 82 QRSD: 102 T: 30 QT: 380 QTc: 395 Interpretive Statements 1100 Sinus rhythm 2440 Incomplete right bundle branch block 3114 Cannot rule out anterior myocardial infarction, age undetermined 8102 Low QRS voltage in chest leads 9150 abnormal ECG Compared to ECG 03/11/2025 13:17:19 Incomplete right bundle-branch block now present Myocardial infarct finding still present Electronically Signed On 04-15-2025 19:01:37 EST by AARON MONTERO M.D.
[2025-04-15 13:47] LABS: Hematocrit 45.1 % (42.0-54.0); Hemoglobin 13.2 g/dL (14.0-18.0); Immature Granulocytes Abs Auto 0.08 10^3/uL (0.00-0.03); Immature Granulocytes Pct Auto 0.9 % (0.0-0.5); Lymphocytes Absolute Auto 0.7 10^3/uL (1.2-3.8); Mean Corpuscular HGB Conc 29.3 g/dL (29.9-35.2); Mean Corpuscular Hemoglobin 25.5 pg (25.9-34.0); Mean Corpuscular Volume 87.1 fL (80.0-94.0); Platelet Count 154 10^3/uL (150-450); Red Blood Count 5.18 10^6/uL (4.70-6.10); White Blood Count 8.5 10^3/uL (4.0-11.0)
[2025-04-15 13:58] LABS: INR 1.17; Prothrombin Time 12.2 sec (9.0-11.6)
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
--- OUTSIDE RECORDS SUMMARY | 2025-04-15 14:10 | XMS_ITS | CCD ---
Author Organization [facility] CliniSymt Care Team Providers Care Brim Cutter Name Role Phone HOUSE, DR GLEZ Primary [...] Unavailable Merritt Thacker MD Primary Care Provider [phone] INNA JEFFERSON Attending Unavailable INNA JEFFERSON Attending Unavailable JUAN ANTONIOHAS, MERRITT Eng Referring Unavailable Yuhas Merritt BEST Primary Care Provider Yuyosis Merritt BEST Primary Care Provider [phone] MERRITT THACKER Attending Unavailable YUHAS, MERRITT Eng [...] TypeDate of OnsetReaction(s) FacilityAnti-Epileptic Agents (1 source)topiramateDrug Ycwetku83-06-3441[facility]vHenry [facility] (6 sources)topiramate; Translations: [TOPIRAMATE]Drug Jhqfhcn71-89-7974WwbpxdlzpGuernsey [facility] (5 sources)TopiramatePropensity to adverse -30-2552[facility] (15 sources)topiramateDrug Ntwgqyk64-50-2837Ohrmrutu, Other (See Comments) [facility] Medications Current Medications MedicationDrug Class(es)DatesSig (Normalized)Sig (Original)[id number] 200 actuat albuterol 0.09 mg/actuat metered dose inhaler (10 sources)beta2-Adrenergic AgonistStart: 82-69-4497vuld 2 puff(s) by mouth every four hours as needed for wheezingalbuterol (PROVENTIL HFA;VENTOLIN HFA) 90 mcg/actuation inhaler INHALE 2 PUFFS BY MOUTH EVERY 4 HOURS NEEDED for SHORTNESS OF BREATH or FOR WHEEZING 12/18/2023 ActiveamLODIPine 5 mg oral tablet (5 sources)Dihydropyridine Calcium Channel BlockeramLODIPine (Norvasc) 5 MG tablet Activeaspirin 81 mg chewable tablet (8 sources)Platelet Aggregation Inhibitor, Nonsteroidal Anti-inflammatory Drug Start: 82-95-7900pzzvfly 81 mg chewable tablet Indications: Chronic combined systolic and diastolic CHF (congestive heart failure) ([facility]) Chew 1 tablet (81 mg total) and swallow in the morning. 90 tablet 1 01/16/2024 Active atorvastatin 40 mg oral tablet (20 sources)HMG-CoA Reductase InhibitorStart: 01-09-2024 End: 17-41-8725wwas 1 tablet by mouth once dailyatorvastatin (LIPITOR) 40 mg tablet Indications: Type 2 diabetes mellitus without complication, without long- term current use of insulin ([facility]) Take 1 tablet (40 mg total) by mouth nightly. 90 tablet 1 06/05/2024 ActiveStart: 03-10-2023 End: 88-92-9959nwju 1 tablet by mouth in the morningatorvastatin [...] mg oral tablet (11 sources)gamma-Aminobutyric Acid-ergic AgonistStart: 84-76-7932qwuo 2 tablets by mouth twice daily as needed for muscle spasmsbaclofen 5 mg tablet Indications: Primary osteoarthritis of right shoulder Take 2 tablets by mouth 2 (two) times a day as needed (back spasm). 09/03/2024 ActiveStart: 01-16-2024 End: 73-67-4374zkqn 1 tablet by mouth twice daily as needed for muscle spasms baclofen 5 mg tablet Indications: Primary osteoarthritis of right shoulder Take 1 tablet by mouth 2(two) times a day as needed (back spasm). 60 tablet 2 06/05/2024 09/03/2024 Discontinuedcarvedilol 12.5 mg oral tablet (10 sources)alpha-Adrenergic Bishop, beta-Adrenergic BlockerStart: 01-09-2024 End: 59-03-1943aagb 1 tablet by mouth in the morning, then take 1 tablet by mouth at mealtimecarvediloL (COREG) 12.5 mg tablet Indications: Chronic combined systolic and diastolic CHF (congestive heart failure) ([facility]) Take 1 tablet (12.5 mg total) by mouth in the morning and 1 tablet (12.5 mg total) in the evening. Take with meals. 180 tablet 1 06/05/2024 Activecetirizine hydrochloride 10 mg oral tablet (4 sources)Histamine-1 Receptor AntagonistStart: 09-03-2024 End: 06-84-2292jjkj 1 tablet by mouth in the morningcetirizine (ZyrTEC) 10 mg tablet Indications: Non-seasonal allergic rhinitis, unspecified trigger Take 1 tablet (10 mg total) by mouth in the morning. 30 tablet 12/03/2024 Active dapagliflozin 10 mg oral tablet (8 sources)Sodium-Glucose Cotransporter 2 InhibitorStart: 50-86-9648vzmf 1 tablet by mouth in the morningdapagliflozin propanediol (FARXIGA) 10 mg tablet Indications: Chronic combined systolic and diastolic CHF (congestive heart failure) ([facility]) Take 1 tablet (10 mg total) by mouth in the morning. 120 tablet 2 06/07/2024 ActiveStart: 02-21-2024 End: 63-86-6390swtd 1 tablet by mouth in the morningdapagliflozin propanediol (FARXIGA) 10 mg tablet Indications: Chronic combined systolic and diastolic CHF (congestive heart failure) ([facility]) Take 1 tablet (10 mg total) by mouth in the morning. 90 tablet 1 06/05/2024 Activeferrous sulfate 325 mg oral tablet (5 sources)take 1 tablet by mouth in the morningferrous sulfate 325 (65 Fe) MG tablet Take 1 tablet by mouth in the morning. Activefurosemide 40 mg oral tablet (20 sources)Loop DiureticStart: 01-16-2024 End: 88-70-1278fzwp 1 tablet by mouth once dailyfurosemide (LASIX) 40 mg tablet Indications: Chronic combined systolic and diastolic CHF (congestive heart failure) ([facility]) Take 1 tablet (40 mg total) by mouth daily. 30 tablet 11 06/05/2024 ActiveStart: 12-21-2022 End: 69-19-1394paye 1 tablet by mouth once dailyfurosemide (LASIX) 40 mg tablet Take 1 tablet (40 mg total) by mouth daily. 12/21/2022 01/02/2024 Discontinued (Patient Stopped On Own)furosemide (Lasix) 20 MG tablet Active hydroCHLOROthiazide 25 mg / triamterene 37.5 mg oral tablet (5 sources)Potassium-sparing Diuretic, Thiazide Diuretictriamterene- hydrochlorothiazide (Maxzide-25) 37.5-25 MG tablet Activelosartan potassium 50 mg oral tablet (20 sources)Angiotensin 2 Receptor BlockerStart: 03-10-2023 End: 41-76-2842jsot 1 tablet by mouth in the morninglosartan (COZAAR) 50 mg tablet Indications: Chronic combined systolic and diastolic CHF (congestiveheart failure) ([facility]) Take 1 tablet (50 mg total) by mouth in the morning. 90 tablet 1 06/05/2024 Activemagnesium oxide 250 mg oral tablet (8 sources)Start: 73-17-2049jstj 1 tablet by mouth in the morningmagnesium oxide 250 mg tablet Indications: Chronic combined systolic and diastolic CHF (congestive heart failure) ([facility]) Take 1 tablet (250 mg total) by mouth in the morning. 90 tablet 1 01/16/2024 ActivemetFORMIN hydrochloride 1000 mg oral tablet (20 sources)BiguanideStart: 12-21-2022 End: 01-56-0172bpmd 1 tablet by mouth twice daily at bedtimemetFORMIN (GLUCOPHAGE) 1000 mg tablet Indications: Type 2 diabetes mellitus without complication, without long-term current use of insulin ([facility]) TAKE 1 TABLET BY MOUTH TWICE DAILY (IN THE MORNINGand BEFORE bedtime) 180 tablet 12/03/2024 Activepantoprazole 40 mg delayed release oral tablet (5 sources)Proton Pump Inhibitortake 1 tablet by mouth twice dailypantoprazole (ProtoNix) 40 MG EC tablet Take 1 tablet twice a day by oral route. Ibbkvh13 hr phentermine 3.75 mg / topiramate 23 [...] oral tablet (7 sources)Dipeptidyl Peptidase 4 InhibitorStart: 46-02-1529puwg 1 tablet by mouth in the morningSITagliptin (Januvia) 100 MG tablet Take 100 mg by mouth in the morning. 03/10/2023 Activespironolactone 25 mg oral tablet (10 sources)Aldosterone AntagonistStart: 01-09-2024 End: 51-74-7439uzbn 1 tablet by mouth in the morningspironolactone (ALDACTONE) 25 mg tablet Indications: Chronic combined systolic and diastolic CHF (co ngestive heart failure) ([facility]) Take 1 tablet (25 mg total) by mouth in the morning. 90 tablet 06/05/2024 ActivetiZANidine 4 mg oral tablet (14 sources)Central alpha-2 Adrenergic Agonist End: 62-98-1231nmZRWvkdid (Zanaflex) 4 MG tablet Active End: 16-56-9187ygtu 1 capsule by mouth every eight hours [...] ADJUVANT COMPONENT-PF) suspension (1 source)Start: 09-07-2023 End: 63-31-4160wmszznii AS01B, PF,vial 1 of 2 (SHINGRIX ADJUVANT COMPONENT-PF) suspension Indications: Immunization due Inject 0.5 mL into the appropriate muscle once for 1 dose. Repeat dose in 2 -4 months 0.5 mL 09/07/2023 Expiredbenzonatate 100 mg oral capsule (5 sources)Non-narcotic AntitussiveStart: 12-18-2023 End: 89-80-7907chly 2 capsules by mouth every eight hours as neededbenzonatate (TESSALON PERLES) 100 mg capsule TAKE 2 CAPSULES BY MOUTH EVERY 8 HOURS NEEDED for coughing 12/18/2023 06/05/2024 Discontinued (Therapy completed) bumetanide 1 mg oral tablet (3 sources)Loop DiureticStart: 12-18-2023 End: 29-69-0343sqyx 1 tablet by mouth once dailybumetanide (BUMEX) 1 mg tablet TAKE 1 TABLET BY MOUTH DAILY FOR 15 DAYS 12/18/2023 01/16/2024 Discontinued (Therapy completed)diclofenac sodium 0.01 mg/mg topical gel (20 sources)Nonsteroidal Anti-inflammatory DrugStart: 01-16-2024 End: 82-02-7219nghkoogjxp sodium (VOLTAREN) 1 % gel Indications: Primary osteoarthritis of right shoulder Apply 2 g topically in the morning and 2 g at noon and 2 g in the evening and 2 g before bedtime. 100 g 2 01/16/2024 02/21/2024 Discontinued (Ineffective)Start: 03-21-2023 End: 80-73-9933ecqt 1 tablet by mouth in the morningdiclofenac (Voltaren) 75 MG EC tablet Take 75 mg by mouth in the morning and 75 mg before bedtime. 1 ActiveStart: 03-10-2023 End: 46-63-0145ywcmjdkanl sodium (VOLTAREN) 1 % gel Indications: Chronic right shoulder pain Apply 2 g topically in the morning and 2 g at noon and 2 g in the evening and 2 g before bedtime. 100 g 2 03/10/2023 01/02/2024 Discontinued (Patient Stopped On Own)DULoxetine 30 mg delayed release oral capsule (6 sources)Serotonin and Norepinephrine Reuptake Inhibitor End: 77-79-0553vhzh 1 capsule by mouth once dailyDULoxetine (CYMBALTA) 30 mg capsule Take 1 capsule every day by oral route. 01/02/2024 Discontinued(Patient Stopped On Own)fexofenadine hydrochloride 180 mg oral tablet (11 sources)Histamine-1 Receptor AntagonistStart: 02-23-2024 End: 84-95-4183fiwu 1 tablet by mouth once daily as needed for congestion fexofenadine (NEREYDA) 180 mg tablet Indications: Non-seasonal allergic rhinitis, unspecified trigger Take 1 tablet (180 mg total) by mouth daily as needed (congestion). 30 tablet 2 06/05/2024 09/03/2024 Discontinued (Ineffective)Start: 12-21-2022 End: 25-37-2701lyov 1 tablet by mouth in the morningfexofenadine (NEREYDA) 180 mg tablet Take 1 tablet (180 mg total) by mouth in the morning. 12/21/2022 01/02/2024 Discontinued (Patient Stopped On Own)gabapentin 600 mg oral tablet (6 sources)Anti-epileptic AgentStart: 12-08-2022 End: 66-86-3415dziw 1 tablet by mouth three times dailygabapentin (NEURONTIN) 600 mg tablet Take 1 tablet (600 mg total) by mouth 3 (three) times a day. 09/07/2023 Discontinued (Therapy completed)Start: 41-42-5349eomz 1 capsule by mouth in the morning, then take 1 capsule by mouth in the evening, then take 1 capsule by mouth at bedtimegabapentin (Neurontin) 300 MG capsule Take 300 mg by mouth in the morning and 300 mg in the eveningand 300 mg before bedtime. 04/27/2022 Lwhfzm65 hr isosorbide mononitrate 30 mg extended release oral tablet (4 sources)Nitrate VasodilatorStart: 12-18-2023 End: 18-51-0295vwoq 1 tablet by mouth once dailyisosorbide mononitrate (IMDUR) 30 mg 24 hr tablet TAKE 1 TABLET BY MOUTH EVERY DAY FOR 15 DAYS 12/18/2023 02/21/2024 Discontinued (Therapy completed)levoFLOXacin 750 mg oral tablet (1 source)Quinolone AntimicrobialStart: 12-18-2023 End: 32-06-6789gvdd 1 tablet by mouth once dailylevoFLOXacin (LEVAQUIN) 750 mg tablet TAKE 1 TABLET BY MOUTH DAILY FOR 3 DAYS 12/18/2023 01/02/2024iscontinued (Therapy completed)1 ml methylPREDNISolone acetate 40 mg/ml injection (4 sources)CorticosteroidStart: 02-29-2024 End: 93-40-3199mgdmteABQGVGWyjbub acetate (DEPO-Medrol) injection 40 mgStart: 02-29-2024 End: 25-27-450494 mg, Intra-articular, Once PRN Procedure, Starting on Tue02/29/24 at 1302, For 1 dosemetoprolol tartrate 25 mg oral tablet (8 sources)beta-Adrenergic BlockerStart: 12-18-2023 End: 90-67-1838ugsq 1 tablet by mouth twice dailymetoprolol tartrate [...] mg oral tablet (6 sources)Start: 09-23-2023 End: 80-69-4692diwu 1 tablet by mouth in the morningsemaglutide (RYBELSUS) 7 mg tablet Indications: Type 2 diabetes mellitus without complication, without long- term current use of insulin ([facility]) Take 7 mg by mouth in the morning. 90 tablet 1 11/18/2023 01/02/2024 Discontinued (Patient Stopped On Own)traMADol hydrochloride 50 mg oral tablet (1 source)Opioid Agonist End: 04-27-2512bdiu 2 tablets by mouth twice dailytraMADoL (ULTRAM) 50 mg tablet Take 2 tablets twice a day by oral route. 09/07/2023 Discontinued (Therapy completed) Problems Active Problems Problem ClassificationProblemDateDocumented DateEpisodic/ChronicAlcohol-related disorders (1 source)Alcohol abuse with intoxication, unspecified; Translations: [ALCOHOL ABUSE WITH INTOXICATION UNS]Onset: 37-58-6101ZholgtgCnjmel (1 source)Unspecified asthma, uncomplicated; Translations: [Unspecified asthma, uncomplicated]Onset: 06-59-6809UrqkzljIkbixdh kidney disease (19 sources)Chronic kidney disease stage 3B ; Translations: [Stage 3b chronic kidney disease ([facility])]Onset: 183962-07-1197ZmcbzeaFkrqdrk kidney disease (2 sources)Chronic kidney disease; Translations: [Chronic kidney disease, stage 3b]Onset: 27-38-2823Yrqfpeplpw heart failure; nonhypertensive (20 sources)Chronic combined systolic and diastolic heart failure; Translations: [Chronic combined systolic (congestive) and diastolic (congestive) heart failure]Onset: 01-02-2024 Resolved: 965657-33-0286RrxporuBzskvwfe atherosclerosis and other heart disease (4 sources)Atherosclerotic heart disease of [place] coronary artery without angina pectoris; Translations: [Oldmyocardial infarction]Onset: 11-27-2019 ChronicDiabetes mellitus without complication (20 sources)Type 2 diabetes mellitus without complications; Translations: [Type 2 diabetes mellitus without complication]Onset: 61-90-8557GvhbkrfQdbsgjhwo of lipid metabolism (20 sources)Hyperlipidemia; Translations: [Hyperlipidemia, unspecified]Onset: 508883-94-5106QwjvzggKwpmnoybc hypertension (20 sources)Essential (primary) hypertension; Translations: [Essential hypertension]Onset: 169861-74-0440KrdhfvrJxieevefjav of prostate (1 source)Benign prostatic hyperplasia without lower urinary tract symptoms; Translations: [BENIGN PROSTATIC HYPRPLASIA WO LUTS]Onset: 40-08-7641Oqrxyqz Hypertension with complications and secondary hypertension (2 sources)Hypertensive heart disease with heart failure; Translations: [Hypertensive heart disease with heartfailure]Onset: 82-88-4996Hiqhgbv Osteoarthritis (9 sources)Unspecified osteoarthritis, unspecified site; Translations: [Osteoarthritis of joint of right shoulder region]Onset: ChronicOther diseases of veins and lymphatics (1 source)Lymphedema, not elsewhere classified; Translations: [I89.0 - Lymphedema, not elsewhere classified]Onset: 32-98-0203HekfsnmIvkdw nervous system disorders (1 source)Other chronic pain; Translations: [Other chronic pain]Onset: 03-54-4577JmgylosMbxkk non-traumatic joint disorders (2 sources)Pain in right knee; Translations: [Pain in joint, lower leg] 94-11-3596SadkkynoFtsqo non-traumatic joint disorders (2 sources)Ankle pain; Translations: [Pain in right ankle and joints of right foot]06-65-6301GnxsustjDpanc non-traumatic joint disorders (2 sources)Disorder of shoulder; Translations: [Other specified joint disorders, right shoulder]87-19-3263FasvamsrCrtjr nutritional; endocrine; and metabolic disorders (1 source)Obesity, unspecified; Translations: [OBESITY UNSPECIFIED]Onset: 26-71-2045QlpiibqZdtuh nutritional; endocrine; and metabolic disorders (3 sources)Morbid (severe) obesity due to excess calories; Translations: [MORBID SEVERE OBES D/T EXCESS NAHUN]Onset: 94-69-7508OirmuriLnyif nutritional; endocrine; and metabolic disorders (1 source)Body mass index (BMI) 60.0-69.9, adult; Translations: [BODY MASS INDEX BMI 60.0-69.9 ADULT]Onset: 76-87-1439KqyhemwTdycg nutritional; endocrine; and metabolic disorders (17 sources)Morbid obesity; Translations: [Morbid (severe) obesity due to excess calories]Onset: 657997-04-2115UdifpueVrhpq nutritional; endocrine; and metabolic disorders (1 source)Severe obesity; Translations: [Morbid (severe) obesity due to excess calories]07-63-2911QnkeftsCuvbf upper respiratory disease (3 sources)Allergic rhinitis; Translations: [Other allergic rhinitis]06-05-2024 ChronicUnclassified (1 source)E11.9 - Type 2 diabetes mellitus without complications; Translations: [E11.9 - Type 2 diabetes mellitus without complications]Onset: 07-13-2021 Unclassified (1 source)bloating and swelling belly on downOnset: 01-02-2024 Past or Other Problems Problem ClassificationProblemDateDocumented DateEpisodic/ChronicE Codes: Unspecified (1 source)Blood alcohol level of 200-239 mg/100 ml; Translations: [BLOOD ALCOHOL LVL 200-239 MG/100 ML]Onset: 31-44-5850IepqzyqfGkjowekrbldtj and screening for infectious disease (5 sources)Patient encounter status; Translations: [Encounter for immunization] Onset: 169605-38-0511AqrozsyzLfwh disorders (15 sources)Mood disordersOnset: 02-21-2024 Resolved: Open wounds of extremities (2 sources)Unspecified open wound, left lower leg, initial encounter; Translations: [Unspecified open wound, left lower leg, subsequent encounter] Onset: 44-83-5259NevsqfkvIsoty aftercare (1 source)Other director long term care (current) drug therapy; Translations: [OTH LONGTERM CURRENT DRUG THERAPY]Onset: 20-59-0359DdyggfozZofxo aftercare (1 source)nursing home (current) use of anticoagulants; Translations: [LONGTERM CURRNT USE ANTICOAGULANTS]Onset: 62-13-9710BwnhsjfkExcxq connective tissue disease (15 sources)Right rotator cuff syndrome; Translations: [Unspecified rotator cuff tear or rupture of right shoulder, not specified as traumatic]Onset: 03-10-2023 02-48-9739FzwkxgsxHxyzs diseases of kidney and ureters (1 source)Disorder of kidney and ureter, unspecified; Translations: [DISORDER KIDNEY AND URETER UNS]Onset: 29-05-6136GbrfzsehRgjvy injuries and conditions due to external causes (4 sources)Encounter for examination and observation following transport accident; Translations: [ENC EXAM ANDOBSERV FLW TRANSPORT ACC]Onset: 11-25-2019 EpisodicOther non-traumatic joint disorders (3 sources)Pain in right shoulder; Translations: [Pain in joint, shoulder region]Onset: 226672-13-0322OroujjckAdlzq non-traumatic joint disorders (1 source)Chronic pain of right upper limb; Translations: [Pain in right shoulder]47-28-3921UgkqsydtAfcpb screening for suspected conditions (not mental disorders or infectious disease) (3 sources)Encounter for screening for malignant neoplasm of colon; Translations: [Encounter for screening formalignant neoplasm of prostate]Onset: 55-26-8795IqulfsysYeswc skin disorders (1 source)Other specified disorders of pigmentation; Translations: [L81.8 - Other specified disorders of pigmentation]Onset: 81-22-1637EjmcnjqmOokbwxfcf heart disease (1 source)Personal history of pulmonary embolism; Translations: [PERSONAL HISTORY PULMONARY EMBOLISM]Onset: 70-08-2984UgejrurcNlsdrmfgjfl; intervertebral disc disorders; other back problems (4 sources)Low back pain; Translations: [LOW BACK PAIN]Onset: 36-60-1085Xfwjutfa Varicose veins of lower extremity (1 source)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; Translations: [I83.899 - 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]Onset: 09-75-5867Cnguvmyo Results Test NameValueInterpretationReference GcwbdVnpftiqf28mv 91-52-222453Oqoxdxku by: JAYA BARBER on: 01/21/2025 02:02 PM Modules accepted: OrdersNormalUniversity of Chi St. [facility] HospitalOffice Visiton 30-99-9260Mkydkq-up [id number] Cristobal Garcia 1965 M Date Provider Department Center 01/21/2025 [address]-[place]OM[place], [facility] Abdiel Hos Family History Problem Relation Age of Onset Coronary artery disease Mother Diabetes Father Family Status - Relation Status Age at Mother Father Level of Service:45119 MO OFFICE/OUTPATIENT ESTABLISHED MOD [facility]COMPREHENS[facility] METABOL[facility] PANELon 09-03-2024 Albumin [Mass/Vol]4.1 g/dLNormal3.2-5.3[facility] HospitalComment on above:Performed By: #### TEMITOPE, 24257-3 #### [facility] ([id number]) [address], [address] [place], [place] [address]KGU [Catalytic activity/Vol]126 U/JYpogou87-638GfpFrdgih [facility]man[facility] HospitalComment on above:Performed By: #### TEMITOPE, 06054-7 #### [facility] ([id number]) [address], [address] [place], [place] [address]NQS [Catalytic activity/Vol]17 U/LNormal0-40[facility] HospitalComment on above:Performed By: #### TEMITOPE, 14599-2 #### [facility] ([id number]) [address], [address] [place], [place] [address]Uxkxx gap [Moles/Vol]9 mmol/LNormal5-15[facility] Comment on above:Performed By: #### TEMITOPE, 13511-5 #### [facility] ([id number]) [address], [address] [place], [place] [address]KQG [Catalytic activity/Vol]15 U/LNormal0-41[facility]man[facility] HospitalComment on above:Performed By: #### TEMITOPE, 27437-3 #### [facility] ([id number]) [address], [address] [place], [place] [address]Kcnzvtoah [Mass/Vol]0.6 mg/dLNormal0.3-1.2[facility] HospitalComment on above:Performed By: #### TEMITOPE, 20519-1 #### [facility] ([id number]) [address] [place], [place] [address]Gteacwu [Mass/Vol]9.4 mg/dLNormal8.5-10.5PPremier Health Miami Valley Hospital NorthComment on above:Performed By: #### TEMITOPE, 44656-8 #### [facility] ([id number]) [address], [address] [place], [place] [address]Kwmampwu [Moles/Vol]101 mmol/EQunrqi92-582AfbZukztn [place] HospitalComment on above:Performed By: #### TEMITOPE, 64113-4 #### [facility] ([id number]) [address], [address] [place], [place] [address]NX8 [Moles/Vol]29 mmol/OYflbkn19-35ZtmQhgmswPremier Health [facility] Comment on above:Performed By: #### TEMITOPE, 09581-0 #### [facility] ([id number]) [address], [address] [place], [place] [address]Degtplatcd [Mass/Vol]1.11 mg/dLNormal0.60-1.30ProOhiohealth Southeastern Medical CenterComment on above:Result Comment: METHOD TRACEABLE TO IDMS STANDARD Performed By: #### TEMITOPE, 22391-2 #### [facility] ([id number]) [address] [place], [place] [address]OKA/1.73 sq M.predicted among non-blacks MDRD (S/P/Bld) [Vol rate/Area]76 mL/min/{1.73_m2}Normal>59ProOhiohealth Southeastern Medical CenterComment on above: Result Comment: Reported eGFR is based on the CKD-EPI 2020 equation that does not use a race coefficient.Performed By: #### TEMITOPE, 24650-7 #### [facility] ([id number]) [address], [address] [place], [place] [address]Xwkpavv [Mass/Vol]155 mg/vOJint28-48XduBbfputSt. Vincent Hospital Comment on above:Performed By: #### TEMITOPE, 91259-1 #### [facility] ([id number]) [address], [address] [place], [place] [address]Bavrrrjvi [Moles/Vol]4.9 mmol/LNormal3.5-5.0ProOhiohealth Southeastern Medical CenterComment on above:Performed By: #### TEMITOPE, 58443-2 #### [facility] ([id number]) [address], [address] [place], [place] [address]Ntgvcje [Mass/Vol]7.3 g/dLNormal6.0-8.0ProOhio[facility] Center Comment on above:Performed By: #### TEMITOPE, 64752-1 #### [facility] ([id number]) [address], [address] [place], [place] [address]Mmvzzv [Moles/Vol]139 mmol/AIzqbiy753-936FnpYvshkm [facility] HospitalComment on above:Performed By: #### TEMITOPE, 22741-7 #### [facility] ([id number]) [address], [address] [place], [place] [address]Urco nitrogen [Mass/Vol]26 mg/dLHigh5-23ProOhiohealth Southeastern Medical CenterComment on above:Performed By: #### TEMITOPE, 09318-2 #### [facility] ([id number]) [address], [address] [place], [place] [address]Mvgjdossjhblr metabolic panelon 80-50-2260Aalucts [Mass/Vol]4.1 g/dL3.2 - 5.3 g/dLProMedica Health SystemALP [Catalytic activity/Vol]126 U/L39 - 130 U/LProMedica Health SystemALT No additional P-5'-P [Catalytic activity/Vol] 17 U/L0 - 40 U/LProMedica Health SystemAnion gap [Moles/Vol]9 mmol/L5 - 15 mmol/LProMedica Health SystemAST [Catalytic activity/Vol]15 U/L0 - 41 U/L [facility] Health SystemBilirubin [Mass/Vol]0.6 mg/dL0.3 - 1.2 mg/dLUniversity Hospitals Lake West Medical CenterCalcium [Mass/Vol]9.4 mg/dL8.5 - 10.5 mg/dLUniversity Hospitals Lake West Medical Center Chloride [Moles/Vol]101 mmol/L98 - 109 mmol/[facility] SystemCO2 [Moles/Vol]29 mmol/L22 - 32 mmol/[facility] Medical CenterCreatinine [Mass/Vol] 1.11 mg/dL0.60 - 1.30 mg/dLUniversity Hospitals Lake West Medical CenterComment on above:METHOD TRACEABLE TO IDMO STANDARDeGFR (CKD-EPI)non-race uvwieyhrd49- Ballad HealthComment on above: Reported eGFR is based on the CKD-EPI 2020 equation that does not use a race coefficient. Glucose [Mass/Vol]155 mg/uZJtll38 - 99 mg/dLUniversity Hospitals Lake West Medical Center Interpretation and review of laboratory resultsAbnoUNC Health Blue Ridge - Valdese Potassium [Moles/Vol]4.9 mmol/L3.5 - 5.0 mmol/[facility]itt[facility] Medical CenterProtein [Mass/Vol]7.3 g/dL6.0 - 8.0 g/dLAtrium Healthodium [Moles/Vol]139 mmol/L134 - 146 mmol/[facility] Medical CenterUrea nitrogen [Mass/Vol]26 mg/dL High5 - 23 mg/dLUPMC Western Psychiatric HospitalHGB A1C (GLYCO-HGB)on 38-97-2316Ebhippd [Mass/Vol]151 mg/dLNoSt. Mary's Medical Center, Ironton CampusComment on above:Performed By: #### [facility], 55008-0 #### [facility] ([id number]) [address] [place] [address], [address] [place], [place] [address]RlS1z (Bld) [Mass fraction]6.9 %High4.4-5.6St. Vincent HospitalComment on above:Result Comment: NOTE ADA Guidelines Result HgbA1c Normal : less than 5.7 % Prediabetes : 5.7 % to 6.4 % Diabetes : > 6.4 % Use with caution in patients with abnormal hemoglobin variants as the half-life of red blood cells and in vivo glycation rates are affected.Performed By: #### TEMITOPE, 19165-9 #### [facility] ([id number]) [address], [address] [place], [place] [address]Sakkjegdkv A1con 25-33-7213Ulynmhc glucose Estimated from glycated hemoglobin (Bld) [Mass/Vol]151 mg/dLUniversity Hospitals Lake West Medical CenterHbA1c (Bld) [Mass fraction]6.9 %High4.4 - 5.6 %[facility] West Medical CenterComment on above:NOTE ADA Guidelines Result HgbA1c Normal : less than 5.7 % Prediabetes : 5.7 % to 6.4 % Diabetes : > 6.4 % Use with caution in patients with abnormal hemoglobin variants as the half-life of red blood cells and in vivo glycation rates are affected. Interpretation and review of laboratory resultsAbnormalSouthwood Psychiatric HospitalCOMPREHENSIVE METABOLIC PANELon 32-24-1925Yxwuasp [Mass/Vol]3.6 g/dLNormal3.2-5.3ProMedica Kindred Hospital LimaComment on above: Performed By: #### TEMITOPE, HA1C #### [facility] ([id number]) [address], [address] [place], [place] [address]PXW [Catalytic activity/Vol]117 U/CYcruyu30-348QmpMixjzx [place] HospitalComment on above:Performed By: #### TEMITOPE, HA1C #### [facility] ([id number]) [address], [address] [place], [place] [address]BDE [Catalytic activity/Vol]16 U/LNormal0-40ProOhiohealth Southeastern Medical CenterComment on above:Performed By: #### TEMITOPE, HA1C #### [facility] ([id number]) [address], [address] [place], [place] [address]Hzwep gap [Moles/Vol]7 mmol/LNormal5-15ProSelect [facility] Hospital Comment on above:Performed By: #### TEMITOPE, HA1C #### [facility] ([id number]) [address], [address] [place], [place] [address]NLP [Catalytic activity/Vol]14 U/LNormal0-41ProMarshall Medical Center North Mcmanus HospitalComment on above:Performed By: #### TEMITOPE, HA1C #### [facility] ([id number]) [address], [address] [place], [place] [address]Ervnsycfs [Mass/Vol]0.6 mg/dLNormal0.3-1.2ProMedAvita Health System HospitalComment on above:Performed By: #### TEMITOPE, HA1C #### [facility] ([id number]) [address], [address] [place], [place] [address]Jzcqcye [Mass/Vol]8.8 mg/dLNormal8.5-10.5ProMedAvita Health System HospitalComment on above:Performed By: #### TEMITOPE, HA1C #### [facility] ([id number]) [address], [address] [place], [place] [address]Enwuthka [Moles/Vol]107 mmol/ONilwpa58-594ZzbJyglzs [place] HospitalComment on above:Performed By: #### TEMITOPE, HA1C #### [facility] ([id number]) [address], [address] [place], [place] [address]GR8 [Moles/Vol]28 mmol/RFarzzf14-27WhmKtnrlz [facility] Comment on above:Performed By: #### CMP, HA1C #### [facility] ([id number]) [address], [address] [place], [place] [address]Xmdtnlzhxu [Mass/Vol]1.11 mg/dLNormal0.60-1.30ProRegency Hospital Toledoca Mcmanus HospitalComment on above:Result Comment: METHOD TRACEABLE TO IDMS STANDARD Performed By: #### CMP, HA1C #### [facility] ([id number]) [address], [address] [place], [place] [address]VQT/1.73 sq M.predicted among non-blacks MDRD (S/P/Bld) [Vol rate/Area]76 mL/min/{1.73_m2}Normal>59ProOhiohealth Southeastern Medical CenterComment on above: Result Comment: Reported eGFR is based on the CKD-EPI 2020 equation that does not use a race coefficient.Performed By: #### TEMITOPE, WILLY #### [facility] ([id number]) [address], [address] [place], [place] [address]Qczskpx [Mass/Vol]156 mg/eTWnpi30-13JsuThheabSt. Vincent Hospital Comment on above:Performed By: #### WILLY LINN #### [facility] ([id number]) [address], [address] [place], [place] [address]Pqcimbmbb [Moles/Vol]4.7 mmol/LNormal3.5-5.0ProOhiohealth Southeastern Medical CenterComment on above:Performed By: #### TEMITOPE, HAMaria De Jesus #### [facility] ([id number]) [address], [address] [place], [place] [address]Ejzikgu [Mass/Vol]6.8 g/dLNormal6.0-8.0[facility] Comment on above:Performed By: #### TEMITOPE, HA1C #### [facility] ([id number]) [address], [address] [place], [place] [address]Aahgfl [Moles/Vol]142 mmol/IYrwmjd707-767PatPqubhx [place] HospitalComment on above:Performed By: #### TEMITOPE, HA1C #### [facility] ([id number]) [address], [address] [place], [place] [address]Fecy nitrogen [Mass/Vol]24 mg/dLHigh5-23ProSelect [facility] HospitalComment on above:Performed By: #### TEMITOPE, HA1C #### [facility] ([id number]) [address] [facility] [place], [place] [address]Scvhilejdhtfm metabolic panelon 46-15-7754Uwpjriw [Mass/Vol]3.6 g/dL3.2 - 5.3 g/dLProMarshall Medical Center North Health SystemALP [Catalytic activity/Vol]117 U/L39 - 130 U/LProMedica Health SystemALT No additional P-5'-P [Catalytic activity/Vol] 16 U/L0 - 40 U/LProMedica Health SystemAnion gap [Moles/Vol]7 mmol/L5 - 15 mmol/LProMedica Health SystemAST [Catalytic activity/Vol]14 U/L0 - 41 U/L ProMNorth Memorial Health Hospital SystemBilirubin [Mass/Vol]0.6 mg/dL0.3 - 1.2 mg/dLWhite Hospital SystemCalcium [Mass/Vol]8.8 mg/dL8.5 - 10.5 mg/dLWhite Hospital System Chloride [Moles/Vol]107 mmol/L98 - 109 mmol/LPrRusk Rehabilitation Centerica Health SystemCO2 [Moles/Vol]28 mmol/L22 - 32 mmol/LPrRusk Rehabilitation Centerica Health SystemCreatinine [Mass/Vol] 1.11 mg/dL0.60 - 1.30 mg/dLWhite Hospital SystemComment on above:METHOD TRACEABLE TO [facility] STANDARDeGFR (CKD-EPI)non-race pafheatuf85- Ballad HealthComment on above: Reported eGFR is based on the CKD-EPI 2020 equation that does not use a race coefficient. Glucose [Mass/Vol]156 mg/lEAmyw72 - 99 mg/dLWhite Hospital System Interpretation and review of laboratory resultsAbnormalWhite Hospital System Potassium [Moles/Vol]4.7 mmol/L3.5 - 5.0 mmol/LProMedica Health SystemProtein [Mass/Vol]6.8 g/dL6.0 - 8.0 g/dLWhite Hospital SystemSodium [Moles/Vol]142 mmol/L134 - 146 mmol/LPrRusk Rehabilitation Centerica Health SystemUrea nitrogen [Mass/Vol]24 mg/dL High5 - 23 mg/dLWhite Hospital SystemProMercy Health Def[facility] Hospital SystemHGB A1C (GLYCO-HGB)on 27-06-5821Pjezegu [Mass/Vol]143 mg/dLNormalProOhiohealth Southeastern Medical CenterComment on above:Performed By: #### TEMITOPE, 55536-9 #### [facility] ([id number]) [address] [place] [address], [address] [place], [place] [address]UfK3b (Bld) [Mass fraction]6.6 %High4.4-5.6ProOhiohealth Southeastern Medical CenterComment on above:Result Comment: NOTE ADA Guidelines Result HgbA1c Normal : less than 5.7 % Prediabetes : 5.7 % to 6.4 % Diabetes : > 6.4 % Use with caution in patients with abnormal hemoglobin variants as the half-life of red blood cells and in vivo glycation rates are affected.Performed By: #### TEMITOPE, 19573-4 #### [facility] ([id number]) [address] [place] [address], [address] [place], [place] [address]Wzuabnmq specific Ag [Mass/Vol]on 91-48-9033VptAsdanj Health SystemPSA SCREEN0.27 ng/mLNormal0.00-4.00St. Vincent HospitalComment on above:Result Comment: The method used for this test is Timmy Miranda DXI chemiluminescent immunoassay. Values obtained by different assay methods cannot be used interchangeably.Performed By: #### TEMITOPE, 55949-9 #### [facility] ([id number]) [address] [place] [address], [address] [place], [place] [address]Daznaepqh specific antigen screenon 14-02-2806Hfbmgdbi specific Ag [Mass/Vol]0.27 ng/mL0.00 - 4.00 ng/mLUniversity Hospitals Lake West Medical CenterComment on above: The method used for this test is Timmy Angeles DXI chemiluminescent immunoassay. Values obtained by different assay methods cannot be used interchangeably. No Panel Informationon 92-54-3593Csxya B Apling, MANAGER WIRELESS 02/29/2024 1:06 PM L Inj/Asp: R subacromial bursa on 02/29/2024 1:02 PM Indications: pain Details: 20 G needle, posterior approach Medications: 40 mg methylPREDNISolone acetate 40 MG/ML Utilizing aseptic technique with universal precautions . Pt given injection Right Shoulder SA space Procedure, treatment alternatives, risks and benefits explained, specific risks discussed. Consent was given by the patient. [facility] NashMICROALBUMIN - ALBUMIN:CREATININE URINE RATIOon 70-24-9259XPM/CREAT RATIO16.6 mg/g creatNormal0.0-30.0[facility] Comment on above:Performed By: #### JACKI #### [facility] ([id number]) [address], [address] [place], [place] [address]Zppzomm DL <= 20 mg/L (U) [Mass/Vol]2.2 mg/dLHigh0.0-1.9 Pro[facility]red Hospital LimaComment on above:Performed By: #### JACKI #### [facility] ([id number]) [address], [address] [place], [place] [address]SEZYZ KLXBK789.81 mg/dLNormalProSelect Medical [facility] HospitalComment on above:Performed By: #### JACKI #### [facility] ([id number]) [address], [address] [place], [place] [address]TUL AND AUTO DIFFon 35-67-9354FDOEJIUE BASOPHIL0.0 X10E9/LNormal 0.0-0.2Pro[facility] HospitalComment on above:Performed By: #### TEMITOPE COLES, 31545-5, , HA1C #### [facility] ([id number]) [address], [address] [place], [place] [address]XXINDNOA NEUTROPHIL5.2 X10E9/LNormal1.5-6.6ProRegency Hospital Toledoca Midland HospitalComment on above:Performed By: #### TEMITOPE COLES, 63369-5, , HA1C #### [facility] ([id number]) [address], [address] [place], [place] [address]Odcmumtix/100 WBC (Bld)0.5 %NormalSt. Vincent Hospital Comment on above:Performed By: #### CBCA CMP, , , HA1C #### [facility] ([id number]) [address], [address] [place], [place] [address]Jugbielzial (Bld) [#/Vol]0.2 10*3/uLNormal0.0-0.4ProSelect Medical Special[facility] HospitalComment on above:Performed By: #### CBCA, CMP, , , HA1C #### [facility] ([id number]) [address], [address] [place], [place] [address]Oqmiqmhtsrn/100 WBC (Bld)2.6 %NormalSt. Vincent Hospital Comment on above:Performed By: #### CBCCuca CMP, , , HA1C #### [facility] ([id number]) [address], [address] [place], [place] [address]Fozerdlzptj distribution width (RBC) [Ratio]16.5 %High11.5-15.0 ProMmary starke harper geriatric psychiatry centera Midland HospitalComment on above:Performed By: #### CBCA, CMP, , , HA1C #### [facility] ([id number]) [address], [address] [place], [place] [address]Fbiisumotb (Bld) [Volume fraction]37.1 %Bdq98-84CpvOgxnha [place] HospitalComment on above:Performed By: #### CBCA, CMP, , , HA1C #### [facility] ([id number]) [address], [address] [place], [place] [address]Lwmazvpdgd (Bld) [Mass/Vol]11.7 g/dLLow13.0-17.0ProSelect Medical Special[facility] HospitalComment on above:Performed By: #### CBCA, CMP, , , HA1C #### [facility] ([id number]) [address], [address] [place], [place] [address]Isdfoiuvpow (Bld) [#/Vol]1.3 10*3/uLNormal1.0-3.5PPremier Health Miami Valley Hospital NorthComment on above:Performed By: #### CBCCuca, CMP, , , HA1C #### [facility] ([id number]) [address], [address] [place], [place] [address]Aywghoxpmpm/100 WBC (Bld)18.5 %NormalSt. Vincent Hospital Comment on above:Performed By: #### CBCCuca, TEMITOPE, , , HA1C #### [facility] ([id number]) [address], [address] [place], [place] [address]IMZ (RBC) [Entitic mass]25.5 iuXhm40-39ZetPsmqgxSt. Vincent Hospital Comment on above:Performed By: #### CBCTEMITOPE Thurman, , , HA1C #### [facility] ([id number]) [address], [address] [place], [place] [address]KTMQ (RBC) [Mass/Vol]31.6 g/pMYaz64-82EheVybnxnSt. Vincent Hospital Comment on above:Performed By: #### CBCA, CMP, , , HA1C #### [facility] ([id number]) [address], [address] [place], [place] [address]KAO (RBC) [Entitic vol]81 oIYnmgvs54-455ElvUdppmmSt. Vincent HospitalComment on above:Performed By: #### CBCA, CMP, , , HA1C #### [facility] ([id number]) [address], [address] [place], [place] [address]Oxnycimqt (Bld) [#/Vol]0.3 10*3/uLNormal0-0.9ProOhiohealth Southeastern Medical CenterComment on above:Performed By: #### CBCCuca, CMP, 25731-8, , HA1C #### [facility] ([id number]) [address], [address] [place], [place] [address]Eweyjjmgs/100 WBC (Bld)4.9 %NormalSt. Vincent Hospital Comment on above:Performed By: #### CBCA, CMP, 68304-8, , HA1C #### [facility] ([id number]) [address], [address] [place], [place] [address]Kzotfrddjsw/100 WBC (Bld)73.5 %[facility] Comment on above:Performed By: #### CBCCuca, CMP, , , HA1C #### [facility] ([id number]) [address], [address] [place], [place] [address]Hnzgsfpy mean volume (Bld) [Entitic vol]7.9 fLNormal7-12 ProMThe Christ HospitalComment on above:Performed By: #### CBCCuca, CMP, , , HA1C #### [facility] ([id number]) [address], [address] [place], [place] [address]Tcybokryj (Bld) [#/Vol]240 10*3/dHKzvcsl319-991OdsUuoazk [place] HospitalComment on above:Performed By: #### CBCA, CMP, 34026-6, , HA1C #### [facility] ([id number]) [address], [address] [place], [place] [address]YHH COUNT4.61 X10E12/LNormal4.10-5.70[facility] Comment on above:Performed By: #### CBCA, CMP, , , HA1C #### [facility] ([id number]) [address], [address] [place], [place] [address]DOM (Bld) [#/Vol]7.1 10*3/uLNormal4.0-11.0ProMedica Mcmanus HospitalComment on above:Performed By: #### TEMITOPE COLES, 75456-3, , HA1C #### [facility] ([id number]) [address], [address] [place], [place] [address]JUYPVVISOJYSA METABOLIC PANELon 33-94-5631Nlsofsn [Mass/Vol]3.6 g/dLNormal3.2-5.3ProMedica [facility]man[facility] HospitalComment on above:Performed By: #### TEMITOPE COLES, 56550-5, , HA1C #### [facility] ([id number]) [address], [address] [place], [place] [address]NSA [Catalytic activity/Vol]121 U/YQeeahx99-730DnsWlpzli [facility] HospitalComment on above:Performed By: #### TEMITOPE COLES, 98487-3, , HA1C #### [facility] ([id number]) [address], [address] [place], [place] [address]NKA [Catalytic activity/Vol]26 U/LNormal0-40Pro[facility]ica [facility] HospitalComment on above:Performed By: #### TEMITOPE COLES, 48335-0, , HA1C #### [facility] ([id number]) [address], [address] [place], [place] [address]Jwzyh gap [Moles/Vol]9 mmol/LNormal5-15[facility] Comment on above:Performed By: #### SANKET CMP, 23457-8, , HA1C #### [facility] ([id number]) [address], [address] [place], [place] [address]DUI [Catalytic activity/Vol]20 U/LNormal0-41Pro[facility]ica [facility] HospitalComment on above:Performed By: #### TEMITOPE COLES, 15124-0, , HA1C #### [facility] ([id number]) [address], [address] [place], [place] [address]Ufgctmgnr [Mass/Vol]0.7 mg/dLNormal0.3-1.2ProMedAvita Health System HospitalComment on above:Performed By: #### TEMITOPE COLES, , , HA1C #### [facility] ([id number]) [address], [address] [place], [place] [address]Idufalx [Mass/Vol]9.2 mg/dLNormal8.5-10.5PSelect Medical Specialty Hospital - Akron HospitalComment on above:Performed By: #### TEMITOPE COLES, , , HA1C #### [facility] ([id number]) [address], [address] [place], [place] [address]Hvfatqbo [Moles/Vol]106 mmol/PUgfdkn06-056ZkaTkfepx [place] HospitalComment on above:Performed By: #### TEMITOPE COLES, , , HA1C #### [facility] ([id number]) [address], [address] [place], [place] [address]PK6 [Moles/Vol]28 mmol/QAdiwlk60-58TgqOqfric [facility] Comment on above:Performed By: #### TEMITOPE COLES, , , HA1C #### [facility] ([id number]) [address], [address] [place], [place] [address]Ducomjkwzw [Mass/Vol]1.19 mg/dLNormal0.60-1.30ProRegency Hospital [facility]edoca Midland HospitalComment on above:Result Comment: METHOD TRACEABLE TO IDMS STANDARD Performed By: #### TEMITOPE COLES, , , HA1C #### [facility] ([id number]) [address], [address] [place], [place] [address]WMV/1.73 sq M.predicted among non-blacks MDRD (S/P/Bld) [Vol rate/Area]70 mL/min/{1.73_m2}Normal>59ProOhiohealth Southeastern Medical CenterComment on above: Result Comment: Reported eGFR is based on the CKD-EPI 2020 equation that does not use a race coefficient.Performed By: #### TEMITOPE COLES, , , HA1C #### [facility] ([id number]) [address], [address] [place], [place] [address]Tusgtol [Mass/Vol]130 mg/gCWxse72-82TmmOzdsroSt. Vincent Hospital Comment on above:Performed By: #### TEMITOPE COLES, , , HA1C #### [facility] ([id number]) [address], [address] [place], [place] [address]Jcennxnww [Moles/Vol]4.8 mmol/LNormal3.5-5.0ProOhiohealth Southeastern Medical CenterComment on above:Performed By: #### TEMITOPE COLES, , , HA1C #### [facility] ([id number]) [address], [address] [place], [place] [address]Rxbztkp [Mass/Vol]7.0 g/dLNormal6.0-8.0[facility] Comment on above:Performed By: #### TEMITOPE COLES, , , HA1C #### [facility] ([id number]) [address], [address] [place], [place] [address]Vwjild [Moles/Vol]143 mmol/ZJrenau896-008OsqHlwlwb [place] HospitalComment on above:Performed By: #### TEMITOPE COLES, , , HA1C #### [facility] ([id number]) [address], [address] [place], [place] [address]Wdhm nitrogen [Mass/Vol]31 mg/dLHigh5-23ProOhiohealth Southeastern Medical CenterComment on above:Performed By: #### TEMITOPE COLES, 78789-8, 14450-2, HA1C #### [facility] ([id number]) [address] [facility] [facility] [facility] [place], [place] [address]DHJ A1C (GLYCO-HGB)on 38-93-3552Zwcrolj [Mass/Vol]157 mg/dL NormalProOhiohealth Southeastern Medical CenterComment on above:Performed By: #### TEMITOPE COLES, 51679-9, , YOSI1C #### [facility] ([id number]) [address] [place], [place] [address]WxB2y (Bld) [Mass fraction]7.1 %High4.4-5.6ProOhiohealth Southeastern Medical CenterComment on above:Result Comment: NOTE ADA Guidelines Result HgbA1c Normal : less than 5.7 % Prediabetes : 5.7 % to 6.4 % Diabetes : > 6.4 % Use with caution in patients with abnormal hemoglobin variants as the half-life of red blood cells and in vivo glycation rates are affected.Performed By: #### TEMITOPE COLES, 11787-3, , HA1C #### [facility] ([id number]) [address], [address] [place], [place] [address]Jnfkh 1996 panelon 42-92-4144Mkiivteurjn [Mass/Vol]77 mg/dLLow 150-200ProOhiohealth Southeastern Medical CenterComment on above:Performed By: #### TEMITOPE COLES, 62595-6, , HA1C #### [facility] ([id number]) [address] [facility] [place], [place] [address]Lpnfdwprnnv in HDL [Mass/Vol]27 mg/dLLow>39ProSelect [facility] HospitalComment on above:Result Comment: HDL <40 mg/dL - High Risk HDL > or = 40mg/dL- Desirable HDL >60 mg/dL - Negative Risk Performed By: ###Son COLES CMP, 25082-7, , HA1C #### [facility] ([id number]) [address], [address] [place], [place] [address]Vkglflgmwsa in LDL [Mass/Vol]35 mg/dLNormal<130ProSelect [facility] HospitalComment on above:Result Comment: LDL <100 mg/dL - Desirable LDL >160 mg/dL - High Risk Performed By: ###Son COLES CMP, 52248-9, , HA1C #### [facility] ([id number]) [address], [address] [place], [place] [address]Tvqctegpvti in VLDL [Mass/Vol]15 mg/dLNormal0-30ProSelect [facility] HospitalComment on above:Performed By: ###Son COLES CMP, 09530-0, , HA1C #### [facility] ([id number]) [address], [address] [place], [place] [address]XVZAYIELVXD:HDL2.2Hdkuyy5.0-5.0ProSelect [facility] HospitalComment on above:Performed By: ###Son COLES CMP, 18224-9, , HA1C #### [facility] ([id number]) [address], [address] [place], [place] [address]Ykxgkfpmjovm [Mass/Vol]75 mg/yBOajzoj93-725NgsRixytj [facility] HospitalComment on above:Performed By: #### TEMITOPE COLES, 20970-6, , HA1C #### [facility] ([id number]) [address], [address] [place] [address]LNIZQZSKGyc 99-80-8663Zgshpcvtc [Mass/Vol]1.9 mg/dLNormal1.8-2.6 [facility] HospitalComment on above:Performed By: #### TEMITOPE COLES, 31045-2, , HA1C #### [facility] ([id number]) [address], [address] [place], [place] [address]ZSDTFRRHIEWYZ METABOLIC PANELon 71-51-8634Kijkoqt [Mass/Vol]3.8 g/dLNormal3.2-5.3[facility] HospitalComment on above:Performed By: #### TEMITOPE, 87957-2 #### [facility] ([id number]) [address], [address] [place], [place] [address]JCG [Catalytic activity/Vol]101 U/UYkkjdf64-720PqwGzwmpi [facility] HospitalComment on above:Performed By: #### TEMITOPE, 70535-5 #### [facility] ([id number]) [address], [address] [place], [place] [address]GUN [Catalytic activity/Vol]14 U/LNormal0-40[facility] HospitalComment on above:Performed By: #### TEMITOPE, 89518-4 #### [facility] ([id number]) [address], [address] [place], [place] [address]Iugsv gap [Moles/Vol]8 mmol/LNormal5-15[facility] Comment on above:Performed By: #### TEMITOPE, 60770-8 #### [facility] ([id number]) [address], [address] [place], [place] [address]LPI [Catalytic activity/Vol]14 U/LNormal0-41[facility] HospitalComment on above:Performed By: #### TEMITOPE, 83479-5 #### [facility] ([id number]) [address], [address] [place], [place] [address]Iymmkxqss [Mass/Vol]0.6 mg/dLNormal0.3-1.2P[facility] HospitalComment on above:Performed By: #### TEMITOPE, 61437-4 #### [facility] ([id number]) [address], [address] [place], [place] [address]Zpxklhh [Mass/Vol]8.8 mg/dLNormal8.5-10.5P[facility] HospitalComment on above:Performed By: #### TEMITOPE, 36398-6 #### [facility] ([id number]) [address], [address] [place], [place] [address]Psvqayda [Moles/Vol]100 mmol/JQrvykk42-735OstZsocit [place] HospitalComment on above:Performed By: #### TEMITOPE, 81429-6 #### [facility] ([id number]) [address], [address] [place], [place] [address]DK1 [Moles/Vol]31 mmol/DEdzsbx68-54OhzYundlz [facility] Comment on above:Performed By: #### TEMITOPE, 89114-9 #### [facility] ([id number]) [address], [address] [place], [place] [address]Mlcqgjrtix [Mass/Vol]1.29 mg/dLNormal0.60-1.30[facility] [facility] Mcmanus HospitalComment on above:Result Comment: METHOD TRACEABLE TO IDMS STANDARD Performed By: #### TEMITOPE, 02987-4 #### [facility] ([id number]) [address], [address] [place], [place] [address]AOE/1.73 sq M.predicted among non-blacks MDRD (S/P/Bld) [Vol rate/Area]64 mL/min/{1.73_m2}Normal>59ProOhiohealth Southeastern Medical CenterComment on above: Result Comment: Reported eGFR is based on the CKD-EPI 2020 equation that does not use a race coefficient.Performed By: #### TEMITOPE, 03284-5 #### [facility] ([id number]) [address], [address] [place], [place] [address]Vdxyvki [Mass/Vol]119 mg/nXYrck93-73ZpzRcmnmeOhiohealth Southeastern Medical Center Comment on above:Performed By: #### TEMITOPE, 87978-6 #### [facility] ([id number]) [address], [address] [place], [place] [address]Dekfgpsrv [Moles/Vol]4.4 mmol/LNormal3.5-5.0ProOhiohealth Southeastern Medical CenterComment on above:Performed By: #### TEMITOPE, 78326-1 #### [facility] ([id number]) [address], [address] [place], [place] [address]Omnqriq [Mass/Vol]7.2 g/dLNormal6.0-8.0[facility] Comment on above:Performed By: #### TEMITOPE, 76197-3 #### [facility] ([id number]) [address], [address] [place], [place] [address]Tbnyft [Moles/Vol]139 mmol/OScwwly602-841JbxCesihn Toledo HospitalComment on above:Performed By: #### TEMITOPE, 18391-5 #### [facility] ([id number]) [address], [address] [place], [place] [address]Efvt nitrogen [Mass/Vol]21 mg/dLNormal5-23ProOhiohealth Southeastern Medical CenterComment on above:Performed By: #### TEMITOPE, 84561-0 #### [facility] ([id number]) [address], [address] [place], [place] [address]Choyfftdpgdvh metabolic panelon 56-18-4380Dpwqogo [Mass/Vol]3.8 g/dL3.2 - 5.3 g/dLProMercy Health Defiance Hospital SystemALP [Catalytic activity/Vol]101 U/L39 - 130 U/[facility] SystemALT No additional P-5'-P [Catalytic activity/Vol] 14 U/L0 - 40 U/[facility] SystemAnion gap [Moles/Vol]8 mmol/L5 - 15 mmol/LPrChildren's Hospital Colorado [facility] Campus Health SystemAST [Catalytic activity/Vol]14 U/L0 - 41 U/L [facility] Medical CenterBilirubin [Mass/Vol]0.6 mg/dL0.3 - 1.2 mg/dLWhite Hospital SystemCalcium [Mass/Vol]8.8 mg/dL8.5 - 10.5 mg/dLUniversity [facility]als [facility] Chloride [Moles/Vol]100 mmol/L98 - 109 mmol/[facility] Clinic SystemCO2 [Moles/Vol]31 mmol/L22 - 32 mmol/[facility] SystemCreatinine [Mass/Vol] 1.29 mg/dL0.60 - 1.30 mg/dLUniversity Hospitals Lake West Medical CenterComment on above:METHOD TRACEABLE TO [facility] STANDARDeGFR (CKD-EPI)non-race gqddtlfvo81- Ballad HealthComment on above: Reported eGFR is based on the CKD-EPI 2020 equation that does not use a race coefficient. Glucose [Mass/Vol]119 mg/mQBxde61 - 99 mg/dLUniversity Hospitals Lake West Medical CenterPotassium [Moles/Vol]4.4 mmol/L3.5 - 5.0 mmol/[facility] SystemProtein [Mass/Vol] 7.2 g/dL6.0 - 8.0 g/dLAtrium Healthodium [Moles/Vol]139 mmol/L134 - 146 mmol/[facility] Clinic SystemUrea nitrogen [Mass/Vol]21 mg/dL5 - 23 mg/dL [facility] Medical CenterHGB A1C (GLYCO-HGB)on 39-53-4939Hywckbx [Mass/Vol]134 mg/dLNoSt. Mary's Medical Center, Ironton CampusComment on above:Performed By: #### [facility], 45073-1 #### [facility] ([id number]) [address], [address] [place], [place] [address]DmD4n (Bld) [Mass fraction]6.3 %High4.4-5.6St. Vincent HospitalComment on above:Result Comment: NOTE ADA Guidelines Result HgbA1c Normal : less than 5.7 % Prediabetes : 5.7 % to 6.4 % Diabetes : > 6.4 % Use with caution in patients with abnormal hemoglobin variants as the half-life of red blood cells and in vivo glycation rates are affected.Performed By: #### [facility], 45326-7 #### [facility] ([id number]) [facility] [facility], [address] [place], [place] [address]Igval 1995 panelon 48-99-1432Epqrrxwjoid [Mass/Vol]145 mg/dLLow 150 - 200 mg/dLUniversity Hospitals Lake West Medical CenterCholesterol in HDL [Mass/Vol]30 mg/dLLow39 - PINF mg/dLUniversity Hospitals Lake West Medical CenterComment on above: HDL <40 mg/dL - High Risk HDL > or = 40mg/dL- Desirable HDL >60 mg/dL - Negative Risk Cholesterol in LDL [Mass/Vol]90 mg/dLNINF - 130 mg/dLUniversity [facility]als [facility] Comment on above: LDL <100 mg/dL - Desirable LDL >160 mg/dL - High Risk Cholesterol in VLDL [Mass/Vol]25 mg/dL0 - 30 mg/dLUniversity [facility]als [facility] Center Cholesterol.total/Cholesterol in HDL [Mass ratio]4.8 {ratio}1.0 - 5.0[facility] Medical CenterTriglyceride [Mass/Vol]123 mg/dL27 - 150 mg/dLUniversity Hospitals Lake West Medical CenterCholesterol [Mass/Vol]145 mg/eBImq651-026TgwLcwtjo Midland HospitalComment on above:Performed By: #### TEMITOPE, 39474-1 #### [facility] ([id number]) [address], [address] [place], [place] [address]Abxvatpvjec in HDL [Mass/Vol]30 mg/dLLow>39ProMedica Mcman[place] HospitalComment on above:Result Comment: HDL <40 mg/dL - High Risk HDL > or = 40mg/dL- Desirable HDL >60 mg/dL - Negative Risk Performed By: #### TEMITOPE, 06650-2 #### [facility] ([id number]) [address], [address] [place], [place] [address]Vezawstbzrg in LDL [Mass/Vol]90 mg/dLNormal<130ProSelect Medical [facility], Inc HospitalComment on above:Result Comment: LDL <100 mg/dL - Desirable LDL >160 mg/dL - High Risk Performed By: #### TEMITOPE, 25224-5 #### [facility] ([id number]) [address], [address] [place], [place] [address]Wxjvkhncvyz in VLDL [Mass/Vol]25 mg/dLNormal0-30ProSelect Medical Specialty [facility], Inc HospitalComment on above:Performed By: #### TEMITOPE, 54585-0 #### [facility] ([id number]) [address], [address] [place], [place] [address]LXKASNRKJXA:HDL4.9Dgcetd9.0-5.0ProMediThe University of [facility] Center HospitalComment on above:Performed By: #### TEMITOPE, 39940-7 #### [facility] ([id number]) [address], [address] [place], [place] [address]Vgiwawuaaivn [Mass/Vol]123 mg/iOJjhqto44-791TmoIjoezvSt. Vincent HospitalComment on above:Performed By: #### CMP, 43340-4 #### [facility] ([id number]) [address], [address] [place], [place] [address]Xv Panel Informationon 42-35-7663Hpzofaxqfgitan and review of laboratory resultsAbnoWest Penn HospitalCB AUTO DIFFon [id number] #0.1 103/ulNormal0.0-0.1The [facility] CenterComment on above:Performed By: #### TSH, LIPID, CMP, PSAD, T4 #### [facility] [address] [place] [address] Wanda KarenBasophils/100 WBC (Bld)0.8 %Normal0.2-2.0The [facility] Comment on above:Performed By: #### TSH, LIPID, CMP, PSAD, T4 #### [facility] [address] [place] [address] Wanda KarenEO #0.3 103/ulNormal0.0-0.7The [facility] Health CenterComment on above: Performed By: #### TSH, LIPID, CMP, PSAD, T4 #### [facility] [address] [id number] Wanda KarenEosinophils/100 WBC (Bld)3.5 %Normal0.9-7.0The [facility] Comment on above:Performed By: #### TSH, LIPID, CMP, PSAD, T4 #### [facility] [address] [id number] Wanda KarenErythrocyte distribution width (RBC) [Ratio]15.2 %Critically high 11.0-15.0The [facility] Health CenterComment on above:Performed By: #### TSH, LIPID, CMP, PSAD, T4 #### [facility] [address] [place] [address] Wanda KarenHematocrit (Bld) [Volume fraction]42.3 %Lwnclk62.0-54.0The [facility] CenterComment on above:Performed By: #### TSH, LIPID, CMP, PSAD, T4 #### [facility] [address] [address] Wanda KarenHemoglobin (Bld) [Mass/Vol]13.3 g/dLCritically low14.0-18.0The [facility] CenterComment on above:Performed By: #### TSH, LIPID, CMP, PSAD, T4 #### [facility] [address] [place] [address] Wanda KarenIG #0.04 10e3/ulCritically high0.00-0.03The [facility] Rehabilitation Hospitalment on above:Performed By: #### TSH, LIPID, CMP, PSAD, T4 #### [facility] [address] [place] [address] Wanda KarenIG %0.4 %Normal0.0-0.5The [facility] Rehabilitation Hospitalment on above: Performed By: #### TSH, LIPID, CMP, PSAD, T4 #### [facility] [address] [place] [address] Wanda KarenLYMPH #2.8 103/ulNormal1.2-3.8The [facility] Hospitalment on above: Performed By: #### TSH, LIPID, CMP, PSAD, T4 #### [facility] [address] [place] [address] Wanda KarenLymphocytes/100 WBC (Bld)30.2 %Ynpdze81.5-60.0The [facility] Comment on above:Performed By: #### TSH, LIPID, CMP, PSAD, T4 #### [facility] [address] [place] [address] Wanda KarenMANUAL DIFF REQNONormalThe [facility] Health CenterComment on above: Performed By: #### TSH, LIPID, CMP, PSAD, T4 #### [facility] [address] [place] [address] Wanda KarenMCH (RBC) [Entitic mass]26.4 zyRbcszl40.9-34.0The [facility] Comment on above:Performed By: #### TSH, LIPID, CMP, PSAD, T4 #### [facility] [address] [place] [address] Wanda ConradHC (RBC) [Mass/Vol]31.4 g/tQMlyzep57.9-35.2The [facility] Comment on above:Performed By: #### TSH, LIPID, CMP, PSAD, T4 #### [facility] [address] [place] [address] Wanda ConradNORTHWEST SUR[facility] (RBC) [Entitic vol]83.9 tSWqthao54.0-94.0The [facility] Comment on above:Performed By: #### TSH, LIPID, CMP, PSAD, T4 #### [facility] [address] [place] [address] Wanda KarenMONO #0.6 103/ulNormal0.3-0.8The [facility] CenterComment on above: Performed By: #### TSH, LIPID, CMP, PSAD, T4 #### [facility] [address] [place] [address] Wanda KarenMonocytes/100 WBC (Bld)6.2 %Normal1.7-12.0The [facility] Comment on above:Performed By: #### TSH, LIPID, CMP, PSAD, T4 #### [facility] [address] [place] [address] Wanda AntoineenNEUT #5.4 103/ulNormal1.4-6.5The [facility] CenterComment on above: Performed By: #### TSH, LIPID, CMP, PSAD, T4 #### [facility] [address] [place] [address] Wanda KarenNeutrophils/100 WBC (Bld)58.9 %Ukbsfg99.0-75.0The [facility] Comment on above:Performed By: #### TSH, LIPID, CMP, PSAD, T4 #### [facility] [address] [place] [address] Wanda KarenPlatelet mean volume (Bld) [Entitic vol]10.5 fLNormal9.5-13.5ThMercy Health Springfield Regional Medical CenterComment on above:Performed By: #### TSH, LIPID, CMP, PSAD, T4 #### [facility] [address] [place] [address] Wanda AntoineGtujlAFY623 103/qqOwewnh032-194KvuHenry County HospitalComment on above: Performed By: #### TSH, LIPID, CMP, PSAD, T4 #### [facility] [address] [place] [address] Wanda KarenRBC5.04 106/ulNormal4.70-6.10The [facility] CenterComment on above: Performed By: #### TSH, LIPID, CMP, PSAD, T4 #### [facility] [address] [place] [address] Wanda KarenWBC9.1 103/ulNormal4.0-11.0Henry County HospitalComment on above: Performed By: #### TSH, LIPID, CMP, PSAD, T4 #### [facility] [address] [place] [address] Wanda KarenLIPID PROFILEon 25-54-5679ATNA-HDL RATIO NORMSAccess Hospital DaytonComment on above:Result Comment: 3.3 - 4.4 LOW RISK 4.4 - 7.1 AVERAGE RISK 7.1 - 11.0 MODERATE RISK >11.0 HIGH RISKPerformed By: #### TSH, LIPID, CMP, PSAD, T4 #### [facility] [address] [place] [address] Wanda KarenCholesterol [Mass/Vol]137 mg/dLNormal<=200[facility] Comment on above:Performed By: #### TSH, LIPID, CMP, PSAD, T4 #### [facility] [address] [place] [address] Wanda KarenCholesterol in HDL [Mass/Vol]31 mg/dLMemorial Hospital Comment on above:Performed By: #### TSH, LIPID, CMP, PSAD, T4 #### [facility] [address] [place] [address] Wanda KarenCholesterol in LDL [Mass/Vol]81.8 mg/dLMemorial Hospital Comment on above:Performed By: #### TSH, LIPID, CMP, PSAD, T4 #### [facility] [address] [place] [address] Wanda KarenCholesterol.total/Cholesterol in HDL [Mass ratio]4.4 {ratio}Normal The [facility] Health CenterComment on above:Performed By: #### TSH, LIPID, CMP, PSAD, T4 #### [facility] [address] [place] [address] Wanda KarenHDL NORMAL> or = 60 mg/dl - LOW CARDIOVASCULAR RISK <40 mg/dl - HIGH CARDIOVASCULAR RISKNoMarymount HospitalComment on above:Performed By: #### TSH, LIPID, CMP, PSAD, T4 #### [facility] [address] [place] [address] Wanda KarenLDL CALC NORMALSEE BELOWNoMarymount HospitalComment on above: Result Comment: <100 mg/dl OPTIMAL 100 - 129 mg/dl NEAR OR ABOVE OPTIMAL 130 - 159 mg/dl BORDERLINE HIGH 160 - 189 mg/dl HIGH >190 mg/dl VERY HIGHPerformed By: #### TSH, LIPID, CMP, PSAD, T4 #### [facility] [address] [place] [address] Wanda KarenTriglyceride [Mass/Vol]121 mg/dLNormal<=150[facility] Comment on above:Performed By: #### TSH, LIPID, CMP, PSAD, T4 #### [facility] [address] [place] [address] Wanda KarenVLDL CALC24.2 mg/dLMemorial HospitalComment on above: Performed By: #### TSH, LIPID, CMP, PSAD, T4 #### [facility] [address] [place] [address] Wanda KarenPROF 14(COMP METB)on 11-23-3975Kukgzoz [Mass/Vol]3.3 g/dLCritically low3.5-5.0Henry County HospitalComment on above:Performed By: #### TSH, LIPID, CMP, PSAD, T4 #### [facility] [address] [id number] Wanda KarenAlbumin/Globulin [Mass ratio]0.7 {ratio}NormalHenry County Hospital Comment on above:Performed By: #### TSH, LIPID, CMP, PSAD, T4 #### [facility] [address] [address] Wanda KarenALP [Catalytic activity/Vol]113 U/RHvlrih97-784KrmHenry County Hospital Comment on above:Performed By: #### TSH, LIPID, CMP, PSAD, T4 #### [facility] [address] [place] [address] Wanda KarenALT [Catalytic activity/Vol]25 U/QNbtuvd80-07ZqaHenry County Hospital Comment on above:Performed By: #### TSH, LIPID, CMP, PSAD, T4 #### [facility] [address] [place] [address] Wanda KarenAnion gap [Moles/Vol]12.4 mmol/LNormalHenry County HospitalComment on above:Performed By: #### TSH, LIPID, CMP, PSAD, T4 #### [facility] [address] [place] [address] Wanda KarenAST [Catalytic activity/Vol]16 U/LCritically lud01-87WdfHenry County HospitalComment on above:Performed By: #### TSH, LIPID, CMP, PSAD, T4 #### [facility] [address] [place], [place] [address] Wanda KarenBilirubin [Mass/Vol]0.4 mg/dLNormal0.2-1.3TJ.[facility]. [facility] Comment on above:Performed By: #### TSH, LIPID, CMP, PSAD, T4 #### [facility] [address] [place], [place] [address] Wanda KarenCalcium [Mass/Vol]8.8 mg/dLNormal8.4-10.2[facility] Comment on above:Performed By: #### TSH, LIPID, CMP, PSAD, T4 #### [facility] [address] [place] [address] Wanda KarenChloride [Moles/Vol]102 mmol/JGemvfr24-513Znf [facility] Comment on above:Performed By: #### TSH, LIPID, CMP, PSAD, T4 #### [facility] [address] [place] [address] Wanda KarenCO2 [Moles/Vol]30.0 mmol/QGxnmap64.0-30.0The [facility] Comment on above:Performed By: #### TSH, LIPID, CMP, PSAD, T4 #### [facility] [address] [place] [address] Wanda KarenCreatinine [Mass/Vol]1.29 mg/dLCritically high0.66-1.25The [facility] CenterComment on above:Performed By: #### TSH, LIPID, CMP, PSAD, T4 #### [facility] [address] [place] [address] Wanda KarenEGFR-AF SWISS>60Normal>=60Henry County HospitalComment on above: Performed By: #### TSH, LIPID, CMP, PSAD, T4 #### [facility] [address] [place] [address] Wanda KarenEGFR-NON AF KTVGBWUG03 mL/min/1.00y0Yqypigcjsa low>=60The [facility] Health CenterComment on above:Performed By: #### TSH, LIPID, CMP, PSAD, T4 #### [facility] [address] [place] [address] Wanda KarenGlobulin (S) [Mass/Vol]4.5 g/dLNormalThe [facility] Health CenterComment on above:Performed By: #### TSH, LIPID, CMP, PSAD, T4 #### [facility] [address] [place] [address] Wanda KarenGlucose [Mass/Vol]153 mg/dLCritically ilcg76-800NevHenry County HospitalComment on above:Performed By: #### TSH, LIPID, CMP, PSAD, T4 #### [facility] [address] [place], [place] [address] Wanda KarenPotassium [Moles/Vol]4.4 mmol/LNormal3.4-5.0The [facility] Comment on above:Performed By: #### TSH, LIPID, CMP, PSAD, T4 #### [facility] [address] [place] [address] Wanda KarenProtein [Mass/Vol]7.8 g/dLNormal6.1-8.2The [facility] CenterComment on above:Performed By: #### TSH, LIPID, CMP, PSAD, T4 #### [facility] [address] [place] [address] Wanda KarenSodium [Moles/Vol]140 mmol/KXhxjqr969-902Gtu [facility] Comment on above:Performed By: #### TSH, LIPID, CMP, PSAD, T4 #### [facility] [address] [place] [address] Wanda KarenUrea nitrogen [Mass/Vol]28.0 mg/dLCritically high9.0-20.0The [facility] CenterComment on above:Performed By: #### TSH, LIPID, CMP, PSAD, T4 #### [facility] [address] [place], [place] [address] Wanda KarenUrea nitrogen/Creatinine [Mass ratio]21.7 mg/mgNormalThe [facility] Health CenterComment on above:Performed By: #### TSH, LIPID, CMP, PSAD, T4 #### [facility] [address] [place] [address] Wanda MtipcC4yk [id number] [Mass/Vol]5.90 ug/dLNormal5.53-11.00The [facility] Health CenterComment on above:Performed By: #### TSH, LIPID, CMP, PSAD, T4 #### [facility] [address] [place] [address] Wanda KarenTSHon 81-71-2139BSN2.487 uIU/mLNormal0.470-4.680The [facility] Health CenterComment on above:Performed By: #### TSH, LIPID, CMP, PSAD, T4 #### [facility] [address] [address] Wanda KATHLEEN The [facility] Toledo Medical CenterComment on above:Result Comment: <0.34 UIU/ml HYPERTHYROID 0.34-5.60 UIU/ml EUTHYROID >5.60 UIU/ml HYPOTHYROIDPerformed By: #### TSH, LIPID, CMP, PSAD, T4 #### [facility] [address] [address] Wanda KarenXR LSPINE MIN 4 VIEWSon 15-60-5027XI LSPINE MIN 4 VIEWSEXAMINATION: XR LSPINE MIN [...] Electronically authenticated by: EFRA HERBERT Date: 2020-04-04 15:[address] [place], [place] [address]ACETAMINOPHENon 37-35-9906Nkyolzarpugrx [Mass/Vol]ug/mL Critically low10.1-30.0[facility] County HospitalComment on above:Performed By: #### ACET #### [facility] [address] [place] [address] Wanda KarenAMMONIAon [id number] (P) [Moles/Vol]7 umol/LCritically low 10-30Henry County HospitalComment on above:Performed By: #### AMM #### [facility] [address] [place] [address] Wanda AntoineenCBC AUTO DIFFon [id number] #0.0 103/ulNormal0.0-0.1[facility] County HospitalComment on above:Performed By: #### TSH, LIPID, CMP, PSAD, T4 #### [facility] [address] [place] [address] Wanda AntoineenBasophils/100 WBC (Bld)0.4 %Normal0.2-2.0The [facility] Comment on above:Performed By: #### TSH, LIPID, CMP, PSAD, T4 #### [facility] [address] [place] [address] Wanda KarenEO #0.2 103/ulNormal0.0-0.7The [facility] CenterComment on above: Performed By: #### TSH, LIPID, CMP, PSAD, T4 #### [facility] [address] [place] [address] Wanda KarenEosinophils/100 WBC (Bld)1.8 %Normal0.9-7.0The [facility] Comment on above:Performed By: #### TSH, LIPID, CMP, PSAD, T4 #### [facility] [address] [place] [address] Wanda KarenErythrocyte distribution width (RBC) [Ratio]14.1 %Kpjhfq21.0-15.0The [facility] CenterComment on above:Performed By: #### TSH, LIPID, CMP, PSAD, T4 #### [facility] [address] [place] [address] Wanda KarenHematocrit (Bld) [Volume fraction]41.2 %Critically low42.0-54.0The [facility] CenterComment on above:Performed By: #### TSH, LIPID, CMP, PSAD, T4 #### [facility] [address] [place] [address] Wanda KarenHemoglobin (Bld) [Mass/Vol]13.3 g/dLCritically low14.0-18.0The [facility] CenterComment on above:Performed By: #### TSH, LIPID, CMP, PSAD, T4 #### [facility] [address] [place] [address] Wanda KarenIG #0.05 10e3/ulCritically high0.00-0.03The [facility] CenterComment on above:Performed By: #### TSH, LIPID, CMP, PSAD, T4 #### [facility] [address] [place] [address] Wanda KarenIG %0.5 %Normal0.0-0.5The [facility] CenterComment on above: Performed By: #### TSH, LIPID, CMP, PSAD, T4 #### [facility] [address] [place] [address] Wanda AntoineenLYMPH #2.3 103/ulNormal1.2-3.8The [facility] CenterComment on above: Performed By: #### TSH, LIPID, CMP, PSAD, T4 #### [facility] [address] [place] [address] Wanda ConradLymphocytes/100 WBC (Bld)21.1 %Rlkvdy43.5-60.0[facility] Comment on above:Performed By: #### TSH, LIPID, CMP, PSAD, T4 #### [facility] [address] [place] [address] Wanda KarenMANUAL DIFF REQNONormalThe [facility] Health CenterComment on above: Performed By: #### TSH, LIPID, CMP, PSAD, T4 #### [facility] [address] [place] [address] Wanda KarSt. Catherine of [facility] (RBC) [Entitic mass]26.1 yqWnbmnk83.9-34.0[facility] Comment on above:Performed By: #### TSH, LIPID, CMP, PSAD, T4 #### [facility] [address] [place] [address] Wanda KarLake View Memorial [facility] (RBC) [Mass/Vol]32.3 g/dCAkinjn05.9-35.2[facility] Comment on above:Performed By: #### TSH, LIPID, CMP, PSAD, T4 #### [facility] [address] [place] [address] Wanad KarForest Health Medical Center (RBC) [Entitic vol]80.9 eQYutuhv11.0-94.0[facility] Comment on above:Performed By: #### TSH, LIPID, CMP, PSAD, T4 #### [facility] [address] [place] [address] Wanda KarenMONO #0.5 103/ulNormal0.3-0.8The [facility] CenterComment on above: Performed By: #### TSH, LIPID, CMP, PSAD, T4 #### [facility] [address] [place], [place] [address] Wanda KarenMonocytes/100 WBC (Bld)4.8 %Normal1.7-12.0The [facility] Comment on above:Performed By: #### TSH, LIPID, CMP, PSAD, T4 #### [facility] [address] [place] [address] Wanda KarenNEUT #7.8 103/ulCritically high1.4-6.5The [facility] CenterComment on above:Performed By: #### TSH, LIPID, CMP, PSAD, T4 #### [facility] [address] [place] [address] Wanda KarenNeutrophils/100 WBC (Bld)71.4 %Fekbgc58.0-75.0The [facility] Comment on above:Performed By: #### TSH, LIPID, CMP, PSAD, T4 #### [facility] [address] [place] [address] Wanda KarenPlatelet mean volume (Bld) [Entitic vol]9.6 fLNormal9.5-13.5The [facility] CenterComment on above:Performed By: #### TSH, LIPID, CMP, PSAD, T4 #### [facility] [address] [place] [address] Wanda DbloeBUY200 103/pqCgdbvy774-460Xkz [facility] CenterComment on above: Performed By: #### TSH, LIPID, CMP, PSAD, T4 #### [facility] [address] [place] [address] Wanda KarenRBC5.09 106/ulNormal4.70-6.10The [facility] CenterComment on above: Performed By: #### TSH, LIPID, CMP, PSAD, T4 #### [facility] [address] [place] [address] Wanda TnwwqBEU52.8 103/ulNormal4.0-11.0The [facility] CenterComment on above: Performed By: #### TSH, LIPID, CMP, PSAD, T4 #### [facility] [address] [id number] Wanda KarenCT HEAD WO CONon [id number] HEAD WO CONCT BRAIN WITHOUT CONTRAST HISTORY: [...] Electronically authenticated by: EFRA MARRERO Date: 2019-11-25 01:49Memorial HospitalETHANOL (BLD ALC)on [id number] NOTENOTE: 80 mg/dl is the legal limit for a blood alcohol levelGalion Hospital on above:Performed By: #### TSH, LIPID, CMP, PSAD, T4 #### [facility] [address] [place] [address] Wanda KarenEthanol [Mass/Vol]205 mg/dLMemorial HospitalComment on above:Performed By: #### TSH, LIPID, CMP, PSAD, T4 #### [facility] [address] [address] Wanda KarenPROF 14(COMP METB)on [id number] [Mass/Vol]3.2 g/dLCritically low3.5-5.0The [facility] on above:Performed By: #### TSH, LIPID, CMP, PSAD, T4 #### [facility] [address] [place] [address] Wanda KarenAlbumin/Globulin [Mass ratio]0.8 {ratio}NormalHenry County Hospital Comment on above:Performed By: #### TSH, LIPID, CMP, PSAD, T4 #### [facility] [address] [place] [address] Wanda KarenALP [Catalytic activity/Vol]111 U/JLnjtur51-468QumHenry County Hospital Comment on above:Performed By: #### TSH, LIPID, CMP, PSAD, T4 #### [facility] [address] [place] [address] Wanda KarenALT [Catalytic activity/Vol]23 U/CWbione85-74ImtHenry County Hospital Comment on above:Performed By: #### TSH, LIPID, CMP, PSAD, T4 #### [facility] [address] [place] [address] Wanda KarenAnion gap [Moles/Vol]16.5 mmol/LNormalThe [facility] CenterComment on above:Performed By: #### TSH, LIPID, CMP, PSAD, T4 #### [facility] [address] [place] [address] Wanda KarenAST [Catalytic activity/Vol]15 U/LCritically pqs92-52DkrHenry County HospitalComment on above:Performed By: #### TSH, LIPID, CMP, PSAD, T4 #### [facility] [address] [place] [address] Wanda KarenBilirubin [Mass/Vol]0.3 mg/dLNormal0.2-1.3TJ.[facility]. [facility] Comment on above:Performed By: #### TSH, LIPID, CMP, PSAD, T4 #### [facility] [address] [place] [address] Wanda KarenCalcium [Mass/Vol]8.2 mg/dLCritically low8.4-10.2Henry County HospitalComment on above:Performed By: #### TSH, LIPID, CMP, PSAD, T4 #### [facility] [address] [place] [address] Wanda KarenChloride [Moles/Vol]98 mmol/DYevfxz15-476YpnHenry County Hospital Comment on above:Performed By: #### TSH, LIPID, CMP, PSAD, T4 #### [facility] [address] [place] [address] Wanda KarenCO2 [Moles/Vol]23.2 mmol/JQeboue95.0-30.0[facility] Comment on above:Performed By: #### TSH, LIPID, CMP, PSAD, T4 #### [facility] [address] [place] [address] Wanda KarenCreatinine [Mass/Vol]0.91 mg/dLNormal0.66-1.25ThMercy Health [facility] Comment on above:Performed By: #### TSH, LIPID, CMP, PSAD, T4 #### [facility] [address] [place] [address] Wanda KarenEGFR-AF SWISS>60Normal>=60Henry County HospitalComment on above: Performed By: #### TSH, LIPID, CMP, PSAD, T4 #### [facility] [address] [place] [address] Wanda KarenEGFR-NON AF SWISS>60Normal>=60Henry County HospitalComment on above:Performed By: #### TSH, LIPID, CMP, PSAD, T4 #### [facility] [address] [place] [address] Wanda KarenGlobulin (S) [Mass/Vol]4.1 g/dLNormalThMercy Health Springfield Regional Medical CenterComment on above:Performed By: #### TSH, LIPID, CMP, PSAD, T4 #### [facility] [address] [place] [address] Wanda KarenGlucose [Mass/Vol]231 mg/dLCritically wrxk61-862JigHenry County HospitalComment on above:Performed By: #### TSH, LIPID, CMP, PSAD, T4 #### [facility] [address] [place] [address] Wanda KarenPotassium [Moles/Vol]3.7 mmol/LNormal3.4-5.0[facility] Comment on above:Performed By: #### TSH, LIPID, CMP, PSAD, T4 #### [facility] [address] [id number] Wanda KarenProtein [Mass/Vol]7.3 g/dLNormal6.1-8.2The [facility] CenterComment on above:Performed By: #### TSH, LIPID, CMP, PSAD, T4 #### [facility] [address] [address] Wanda KarenSodium [Moles/Vol]134 mmol/LCritically mqn782-614Drr [facility] CenterComment on above:Performed By: #### TSH, LIPID, CMP, PSAD, T4 #### [facility] [address] [place] [address] Wanda KarenUrea nitrogen [Mass/Vol]22.0 mg/dLCritically high9.0-20.0The [facility] on above:Performed By: #### TSH, LIPID, CMP, PSAD, T4 #### [facility] [address] [address] Wanda KarenUrea nitrogen/Creatinine [Mass ratio]24.2 mg/mgNormalThMercy Health Springfield Regional Medical CenterCombaraga county memorial hospital on above:Performed By: #### TSH, LIPID, CMP, PSAD, T4 #### [facility] [address] [place] [address] Wanda KarenSALICYLATEon [id number] mg/dLNormal<=20.0[facility] on above:Performed By: #### TSH, LIPID, CMP, PSAD, T4 #### [facility] [address] [place], [place] [address] Wanda KarenXR CHEST 1 Von [id number] CHEST 1 VCHEST RADIOGRAPH: HISTORY: Pain. COMPARISON: None available. TECHNIQUE: AP radiograph of was performed of the chest. FINDINGS: SUPPORT APPARATUS: None. CARDIOMEDIASTINAL SILHOUETTE: Normal. AIRWAYS/LUNGS: Clear. PLEURAL SPACES: No pleural effusion or pneumothorax. BONES AND SOFT TISSUES: No acute abnormality. IMPRESSION: Normal chest radiograph. Electronically authenticated by: EFRA MARRERO Date: 2019-11-25 01:51NoMarymount HospitalXR PELVIS 1_2 VIEWSon [id number] PELVIS 1_2 VIEWSXR PELVIS 1_2 VIEWS: HISTORY: [...] Electronically authenticated by: EFRA MARRERO Date: 2019-11-25 01:52No[facility] AUTO DIFFon [id number] #0.1 103/ulNormal0.0-0.1Henry County HospitalComment on above:Performed By: #### CBC #### [facility] [address] [place] [address] Wanda KarenBasophils/100 WBC (Bld)0.6 %Normal0.2-2.0[facility] Comment on above:Performed By: #### CBC #### [facility] [address] [address] Wanda KarenEO #0.2 103/ulNormal0.0-0.7The [facility] CenterComment on above: Performed By: #### CBC #### [facility] [address] [place] [address] Wanda KarenEosinophils/100 WBC (Bld)1.7 %Normal0.9-7.0[facility] Comment on above:Performed By: #### CBC #### [facility] [address] [address] Wanda KarenErythrocyte distribution width (RBC) [Ratio]14.4 %Lciyst71.0-15.0The [facility] CenterComment on above:Performed By: #### CBC #### [facility] [address] [place] [address] Wanda KarenHematocrit (Bld) [Volume fraction]44.2 %Hckstk13.0-54.0Henry County HospitalComment on above:Performed By: #### CBC #### [facility] [address] [place], [place] [id number] Wanda KarenHemoglobin (Bld) [Mass/Vol]13.9 g/dLCritically low14.0-18.0The [facility] CenterComment on above:Performed By: #### CBC #### [facility] [address] [place] [address] Wanda AntoineenIG #0.04 10e3/ulCritically high0.00-0.03The [facility] CenterComment on above:Performed By: #### CBC #### [facility] [address] [place] [address] Wanda AntoineenIG %0.4 %Normal0.0-0.5The [facility] CenterComment on above: Performed By: #### CBC #### [facility] [address] [place] [address] Wanda KarenLYMPH #2.8 103/ulNormal1.2-3.8The [facility] CenterComment on above: Performed By: #### CBC #### [facility] [address] [place] [address] Wanda KarenLymphocytes/100 WBC (Bld)28.2 %Kxttim75.5-60.0The [facility] Comment on above:Performed By: #### CBC #### [facility] [address] [place] [address] Wanda KarenMANUAL DIFF REQNONormalThe [facility] CenterComment on above: Performed By: #### CBC #### [facility] [address] [place] [address] Wanda KarenMCH (RBC) [Entitic mass]25.9 ciOdnniz25.9-34.0The [facility] Comment on above:Performed By: #### CBC #### [facility] [address] [place] [address] Wanda KarenMCHC (RBC) [Mass/Vol]31.4 g/jESzquzt23.9-35.2The [facility] Comment on above:Performed By: #### CBC #### [facility] [address] [place] [address] Wanda KarenMCV (RBC) [Entitic vol]82.3 wMAkjrpw88.0-94.0The [facility] Comment on above:Performed By: #### CBC #### [facility] [address] [place] [address] Wanda AntoineenMONO #0.5 103/ulNormal0.3-0.8The [facility] HospitalComment on above: Performed By: #### CBC #### [facility] [address] [place] [address] Wanda KarenMonocytes/100 WBC (Bld)5.2 %Normal1.7-12.0The [facility] Comment on above:Performed By: #### CBC #### [facility] [address] [place] [address] Wanda AntoineenNEUT #6.4 103/ulNormal1.4-6.5The [facility] CenterComment on above: Performed By: #### CBC #### [facility] [address] [place] [address] Wanda KarenNeutrophils/100 WBC (Bld)63.9 %Tetvmt12.0-75.0The [facility] Comment on above:Performed By: #### CBC #### [facility] [address] [place] [address] Wanda KarenPlatelet mean volume (Bld) [Entitic vol]10.5 fLNormal9.5-13.5The [facility] CenterComment on above:Performed By: #### CBC #### [facility] [address] [place] [address] Wanda LfpsrBPZ547 103/fzYjaqpi443-077Zre [facility] CenterComment on above: Performed By: #### CBC #### [facility] [address] [place] [address] Wanda KarenRBC5.37 106/ulNormal4.70-6.10The [facility] CenterComment on above: Performed By: #### CBC #### [facility] [address] [place] [address] Wanda IpatxNSU99.0 103/ulNormal4.0-11.0Henry County HospitalComment on above: Performed By: #### CBC #### [facility] [address] [address] Wanda KarenGLYCOHEMOGLOBIN A1Con 75-30-1641Qnqasvm [Mass/Vol]163 mg/dLMemorial HospitalComment on above:Performed By: #### TSH, LIPID, CMP, PSAD, T4 #### [facility] [address] [place] [address] Wanda PeqmrZsZ4t (Bld) [Mass fraction]7.3 %Critically high<=6.0Henry County HospitalComment on above:Performed By: #### TSH, LIPID, CMP, PSAD, T4 #### [facility] [address] [place] [address] Wanda KarenLIPID PROFILEon [id number]-HDL RATIO NORMSEE The [facility]edo Medical CenterComment on above:Result Comment: 3.3 - 4.4 LOW RISK 4.4 - 7.1 AVERAGE RISK 7.1 - 11.0 MODERATE RISK >11.0 HIGH RISKPerformed By: #### TSH, LIPID, CMP, PSAD, T4 #### [facility] [address] [place] [address] Wanda KarenCholesterol [Mass/Vol]130 mg/dLNormal<=200[facility] Comment on above:Performed By: #### TSH, LIPID, CMP, PSAD, T4 #### [facility] [address] [place] [address] Wanda KarenCholesterol in HDL [Mass/Vol]32 mg/dLMemorial Hospital Comment on above:Performed By: #### TSH, LIPID, CMP, PSAD, T4 #### [facility] [address] [place] [address] Wanda KarenCholesterol in LDL [Mass/Vol]76.6 mg/dLMemorial Hospital Comment on above:Performed By: #### TSH, LIPID, CMP, PSAD, T4 #### [facility] [address] [place], [place] [address] Wanda KarenCholesterol.total/Cholesterol in HDL [Mass ratio]4.1 {ratio}Normal The [facility] County Health CenterComment on above:Performed By: #### TSH, LIPID, CMP, PSAD, T4 #### [facility] [address] [place] [address] Wanda KarenHDL NORMAL> or = 60 mg/dl - LOW CARDIOVASCULAR RISK <40 mg/dl - HIGH CARDIOVASCULAR RISKMemorial HospitalComment on above:Performed By: #### TSH, LIPID, CMP, PSAD, T4 #### [facility] [address] [place] [address] Wanda KarenLDL CALC NORMALSEE BELOWMemorial HospitalComment on above: Result Comment: <100 mg/dl OPTIMAL 100 - 129 mg/dl NEAR OR ABOVE OPTIMAL 130 - 159 mg/dl BORDERLINE HIGH 160 - 189 mg/dl HIGH >190 mg/dl VERY HIGHPerformed By: #### TSH, LIPID, CMP, PSAD, T4 #### [facility] [address] [place] [address] Wanda KarenTriglyceride [Mass/Vol]107 mg/dLNormal<=150[facility] Comment on above:Performed By: #### TSH, LIPID, CMP, PSAD, T4 #### [facility] [address] [place] [address] Wanda KarenVLDL CALC21.4 mg/dLNoMarymount HospitalComment on above: Performed By: #### TSH, LIPID, CMP, PSAD, T4 #### [facility] [address] [place] [address] Wanda KarenMICROALBUMIN, RAND URon [id number]<1.3Normal<=30.0The [facility] CenterComment on above:Performed By: #### MALBR #### [facility] [address] [place] [address] Wanda KarenmALBHPLEASE NOTE: NORMAL RANGE CHANGE, TEST[facility] PERFORMED [facility]. NormalThe [facility] Health CenterComment on above:Performed By: #### MALBR #### [facility] [address] [place] [address] Wanda KarenPROF 14(COMP METB)on [id number] [Mass/Vol]3.5 g/dLNormal 3.5-5.0[facility] HospitalComment on above:Performed By: #### TSH, LIPID, CMP, PSAD, T4 #### [facility] [address] [address] Wanda KarenAlbumin/Globulin [Mass ratio]0.8 {ratio}NormalHenry County Hospital Comment on above:Performed By: #### TSH, LIPID, CMP, PSAD, T4 #### [facility] [address] [place] [address] Wanda KarenALP [Catalytic activity/Vol]103 U/VLybair62-705BadHenry County Hospital Comment on above:Performed By: #### TSH, LIPID, CMP, PSAD, T4 #### [facility] [address] [place] [address] Wanda KarenALT [Catalytic activity/Vol]21 U/ZMkvmdv33-16KtwHenry County Hospital Comment on above:Performed By: #### TSH, LIPID, CMP, PSAD, T4 #### [facility] [address] [address] Wanda KarenAnion gap [Moles/Vol]13.9 mmol/LNormalHenry County HospitalComment on above:Performed By: #### TSH, LIPID, CMP, PSAD, T4 #### [facility] [address] [address] Wanda KarenAST [Catalytic activity/Vol]18 U/WMginfo70-71YykHenry County Hospital Comment on above:Performed By: #### TSH, LIPID, CMP, PSAD, T4 #### [facility] [address] [address] Wanda KarenBilirubin [Mass/Vol]0.5 mg/dLNormal0.2-1.3T[facility]. [facility] Comment on above:Performed By: #### TSH, LIPID, CMP, PSAD, T4 #### [facility] [address] [address] Wanda KarenCalcium [Mass/Vol]8.9 mg/dLNormal8.4-10.2[facility] Comment on above:Performed By: #### TSH, LIPID, CMP, PSAD, T4 #### [facility] [address] [address] Wanda KarenChloride [Moles/Vol]100 mmol/XOguwxr07-253IxrHenry County Hospital Comment on above:Performed By: #### TSH, LIPID, CMP, PSAD, T4 #### [facility] [address] [place] [address] Wanda KarenCO2 [Moles/Vol]28.2 mmol/FLqbjxj18.0-30.0The [facility] Comment on above:Performed By: #### TSH, LIPID, CMP, PSAD, T4 #### [facility] [address] [place] [address] Wanda KarenCreatinine [Mass/Vol]1.08 mg/dLNormal0.66-1.25The [facility] Comment on above:Performed By: #### TSH, LIPID, CMP, PSAD, T4 #### [facility] [address] [place] [address] Wanda KarenEGFR-AF SWISS>60Normal>=60The [facility] CenterComment on above: Performed By: #### TSH, LIPID, CMP, PSAD, T4 #### [facility] [address] [place] [address] Wanda KarenEGFR-NON AF SWISS>60Normal>=60The [facility] CenterComment on above:Performed By: #### TSH, LIPID, CMP, PSAD, T4 #### [facility] [address] [place] [address] Wanda KarenGlobulin (S) [Mass/Vol]4.6 g/dLNormalThe [facility] CenterComment on above:Performed By: #### TSH, LIPID, CMP, PSAD, T4 #### [facility] [address] [place] [address] Wanda KarenGlucose [Mass/Vol]129 mg/dLCritically gqgz38-235Zgx [facility] CenterComment on above:Performed By: #### TSH, LIPID, CMP, PSAD, T4 #### [facility] [address] [address] Wanda KarenPotassium [Moles/Vol]4.1 mmol/LNormal3.4-5.0The [facility] Comment on above:Performed By: #### TSH, LIPID, CMP, PSAD, T4 #### [facility] [address] [place] [address] Wanda KarenProtein [Mass/Vol]8.1 g/dLNormal6.1-8.2The [facility] CenterComment on above:Performed By: #### TSH, LIPID, CMP, PSAD, T4 #### [facility] [address] [place] [address] Wanda KarenSodium [Moles/Vol]138 mmol/OEazpsq868-568Kmh [facility] Comment on above:Performed By: #### TSH, LIPID, CMP, PSAD, T4 #### [facility] [address] [address] Wanda KarenUrea nitrogen [Mass/Vol]34.0 mg/dLCritically high9.0-20.0The [facility] CenterComment on above:Performed By: #### TSH, LIPID, CMP, PSAD, T4 #### [facility] [address] [place], [place] [address] Wanda KarenUrea nitrogen/Creatinine [Mass ratio]31.5 mg/mgNormalThe [facility] CenterComment on above:Performed By: #### TSH, LIPID, CMP, PSAD, T4 #### [facility] [address] [place], [place] [address] Wanda Anamaria Vital Signs Date TimeVital SignValuePerforming WprjjqmkhAczahmqy45-56-2748 13:48-0400Body rkoqwg776.6 cmJomagdalene [employer] Work Phone: [facility]04-07-2025 13:48-0400Body mass index (BMI) [Ratio]66.3 kg/m2Jo cPacket Networkspella regional [facility] DO Work Phone: [facility]04-07-2025 13:48-0400Body haxbtwapfyd98.5 [degF]Merritt Thacker DO Work Phone: [facility]Cit[facility] Spznyq54-53-6204 13:48-0400Body .34 kgMerritt Thacker DO Work Phone: [facility] HospitalValneva04-07-2025 13:48-0400Diastolic blood etpzdpcm75 mm[Hg]Merritt Thacker DO Work Phone: [facility] [employer] [facility] HospitalComment on above:bp cuff not big opuhcy41-51-6340 13:48-0400Heart rate92 /minMerritt Thacker DO Work Phone: [facility] [employer] Rwwaqr15-99-9382 13:48-0400 Respiratory rate20 /minMerritt Thacker DO Work Phone: [facility] [employer] Hiwitz79-55-6950 13:48-9479NeR0% (BldA) [Mass fraction]91 %Merritt Thacker DO Work Phone: [facility] HospitalVal[facility]va04-07-2025 13:48-0400Systolic blood wmqhoiiu869 mm[Hg]Merritt Thacker DO Work Phone: [facility] [employer] [facility] HospitalComment on above:bp cuff not big gqiwyl14-39-7717 13:20-0500Diastolic blood hvsziyop32 mm[Hg]Merritt Thacker DO Work Phone: [facility] [employer] Beeoas44-44-5835 13:20-0500Systolic blood xkfatajj052 mm[Hg]Merritt Thacker DO Work Phone: [facility] HospitalVal[facility]va01-07-2025 12:57-0500Body ircidi743.6 cmJomagdalene Thacker DO Work Phone: [facility]Cit[facility] Hgbarf92-91-4673 12:57-0500Body mass index (BMI) [Ratio]68.44 kg/m2Merritt Thacker DO Work Phone: [facility] HospitalVal[facility]va01-07-2025 12:57-0500Body cbovjrfdvnd47.59 [degF]Merritt Thacker DO Work Phone: [facility] Tizgjw64-52-3569 12:57-0500Body jdyqcb154.32 kgMerritt Thacker DO Work Phone: [facility] Fzeqgc98-89-0414 12:57-0500Heart rate 78 /minMerritt Thacker DO Work Phone: [facility] [employer] Ibdpjl36-08-7999 12:57-0500 Respiratory rate20 /minMerritt Thacker DO Work Phone: [facility] [employer] Prtlku55-97-1396 12:57-4023MxF5% (BldA) [Mass fraction]97 %Merritt Thacker DO Work Phone: [facility] [employer] Ukjtpa41-74-0048 15:01-0400Body hhqleu860.6 cmMerritt Thacker DO Work Phone: [facility] [employer] Zixkrh58-99-8845 15:01-0400Body mass index (BMI) [Ratio]63.75 kg/m2Merritt Thacker DO Work Phone: [facility] [employer] Vrikps89-85-3185 15:01-0400Body rzfiusoeyjs76.59 [degF]Merritt Thacker DO Work Phone: [facility] Fuwatu80-19-3366 15:01-0400Body diicpm384.17 kgMerritt Thacker DO Work Phone: [facility]Cit[facility] Awzovl00-59-8716 15:01-0400Diastolic blood rvilftcz31 mm[Hg]Merritt Thacker DO Work Phone: [facility] Fvhuua90-65-7968 15:01-0400Heart rate 88 /minMerritt Thacker DO Work Phone: [facility] Asjevy12-54-5351 15:01-7064YyY1% (BldA) [Mass fraction]95 %Merritt Thacker DO Work Phone: [facility] Sljsdq48-18-7330 15:01-0400Systolic blood abutyvuk354 mm[Hg]Merritt Thacker DO Work Phone: [facility]08-19-2024 16:34-0400Body crooen336.6 cmMerritt Thacker DO Work Phone: [facility] [employer] Gejtyp77-80-2674 16:34-0400Body mass index (BMI) [Ratio]67.39 kg/m2Merritt Thacker DO Work Phone: [facility] [employer] Jqodmn22-73-6936 16:34-0400Body urlncdmgite28.11 [degF]Merritt Thacker DO Work Phone: [facility]08-19-2024 16:34-0400Body gnuaft900.38 kgJomagdalene Thacker DO Work Phone: [facility]08-19-2024 16:34-0400Diastolic blood ufynfjne28 mm[Hg]Merritt Thacker DO Work Phone: [facility] [employer] Oxdixe56-67-3940 16:34-0400Heart rate 71 /minJomagdalene Thacker DO Work Phone: [facility] [employer] Eycyqe58-20-7273 16:34-9072ZhG0% (BldA) [Mass fraction]98 %Merritt Thacker DO Work Phone: [facility] [employer] Frmeud47-91-5766 16:34-0400Systolic blood hwolvqji266 mm[Hg]Merritt Thacker DO Work Phone: [facility] [employer] Mejgtr94-03-8068 14:38-0400Body odeqvp707.6 cmMerritt Thacker DO Work Phone: [facility]08-05-2024 14:38-0400Body ftprzfuycra98.49 [degF]Merritt Thacker DO Work Phone: [facility]08-05-2024 14:38-0400Diastolic blood vnfpeadp37 mm[Hg]Merritt Thacker DO Work Phone: [facility]08-05-2024 14:38-0400Heart rate 75 /minMerritt Thacker DO Work Phone: [facility] [employer] Rrmkcx43-51-2149 14:38-0400 Respiratory rate20 /minMerritt Thacker DO Work Phone: [facility]08-05-2024 14:38-4683DpW4% (BldA) [Mass fraction]94 %Merritt Thacker DO Work Phone: [facility]08-05-2024 14:38-0400Systolic blood ucggobwd873 mm[Hg]Merritt Thacker DO Work Phone: [facility]04-10-2024 13:51-0400Diastolic blood pbyxhgin07 mm[Hg]Merritt Thacker DO Work Phone: [facility] [employer] Esnyru09-68-1170 13:51-0400Systolic blood wnaxfzht590 mm[Hg]Merritt Thacker DO Work Phone: [facility]04-10-2024 13:09-0400Body gnlutv526.6 cmJomagdalene Thacker DO Work Phone: [facility] [employer] Cpnzpw01-82-9283 13:09-0400Body mass index (BMI) [Ratio]68.86 kg/m2Merritt Thacker DO Work Phone: [facility] [employer] Vrytkf96-58-2779 13:09-0400Body sspyqduymcx92.2 [degF]Merritt Thacker DO Work Phone: [facility]04-10-2024 13:09-0400Body ygeyco750.5 kgMerritt Thacker DO Work Phone: [facility] [employer] Aemgpm73-76-3151 13:09-0400Heart rate 88 /minMerritt Thacker DO Work Phone: [facility] Udolpm48-42-0162 13:09-0400 Respiratory rate20 /Jillian Thacker DO Work Phone: [facility] Bdauhw01-90-1176 13:09-5678YrQ2% (BldA) [Mass fraction]98 %Merritt Thacker DO Work Phone: [facility] Encounters Encounter DateEncounter TypeCare ProviderFacilityStart: 02-15-2025 End: 39-47-6464Wxdcnyzpf encounterNoemi Caraballo [facility] - Family MedicineComment on above:Colon Cancer ScreeningStart: 01-21-2025 End: 02-84-0111kkwgwhtaaoZITBCleveland Clinic Foundationtart: 12-03-2024 End: 38-15-7416HcpiriPnru Albertina Thacker DO Work Phone: [facility] - Family MedicineComment on above:Type 2 diabetes mellitus without complication, without long-term current use of insulin ([facility]); Non-seasonal allergic rhinitis, unspecified triggerStart: 09-03-2024 End: 93-86-7043ttacdtvqucGXCZJoint Township District Memorial Hospitaltart: 09-03-2024 End: 18-39-4995Jechcd outpatient visit 25 Artis Thacker DO Work Phone: [facility] Medicine - Family MedicineComment on above:Type 2 diabetes mellitus without complication, without long-term current use of insulin ([facility]) (Primary Dx); Special screening for malignant neoplasm of colon; Chronic combined systolic and diastolic CHF (congestive heart failure) ([facility]); Non-seasonal allergic rhinitis, unspecified trigger; Primary osteoarthritis of right shoulderStart: 09-03-2024 End: 68-63-4429hdaqdufienSGVHMayo Clinic Health System [facility] PPGStart: 08-25-2024 End: 25-61-3360VsmwiaWqej Albertina Thacker DO Work Phone: [facility] Internal Medicine - Family MedicineComment on above:Type 2 diabetes mellitus without complication, without long-term current use of insulin ([facility])Start: 06-07-2024 End: 01-49-6535Jdpkfxrru encounterJomagdalene Thacker DO Work Phone: [facility] - [facility] Centertart: 06-05-2024 End: 06-90-0734wpizhlqimmUECXJoint Township District Memorial Hospitaltart: 06-05-2024 End: 84-09-6784Zvyiss outpatient visit 25 minutesGriseldamagdalene Thacker DO Work Phone: [facility] - [facility] HospitalComment on above:Type 2 diabetes mellitus without complication, without long-term current use of insulin ([facility]) (Primary Dx); Chronic combined systolic and diastolic CHF (congestive heart failure) ([facility]); Obesity, morbid ([facility]); Stage 3b chronic kidney disease ([facility]); Encounter for screening for malignant neoplasm of prostate; Encounter for immunization; Primary osteoarthritis of right shoulder; Non-seasonal allergic rhinitis, unspecified triggerStart: 06-05-2024 End: 07-07-9117grnjifkapdXDIBPiedmont Macon Hospital Ambulatory PPGStart: 03-01-2024 End: 59-95-7977Lsuyxwaus encounterMaria B Shantelleing MANAGER WIRELESS Work Phone: [facility] SWS ORTHOComment on above:ReferralStart: 02-29-2024 End: 80-41-5330Ghrvyn flowsheetMaria B Apling MANAGER WIRELESS Work Phone: [facility] CI ORTHOPAEDICSStart: 02-29-2024 End: 68-11-8887Kmyrbm flowsheetMaria B Apling MANAGER WIRELESS Work Phone: [facility] CI ORTHOPAEDICSStart: 02-29-2024 End: 88-49-1831Vsqrkk outpatient visit 25 minutesMaria B Apling MANAGER WIRELESS Work Phone: [facility] CI ORTHOPAEDICSComment on above:Right shoulder pain, unspecified chronicity (Primary Dx); Chronic pain of both knees; Chronic pain of both ankles; Impingement of right shoulderStart: 02-29-2024 End: 43-33-1186axyinacpkqIZAQV B APLINGNot AvailableStart: 02-21-2024 End: 57-44-0649menmizylkpANMLPiedmont Macon Hospital Ambulatory PPGStart: 02-21-2024 End: 52-27-5808Czekqt outpatient visit 25 minutesJomagdalene Thacker DO Work Phone: [facility] - Family MedicineComment on above:Type 2 diabetes mellitus without complication, without long-term current use of insulin ([facility]) (Primary Dx); Chronic combined systolic and diastolic CHF (congestive heart failure) ([facility]); Primary osteoarthritis of right shoulder; Chronic right shoulder pain; Primary osteoarthritis of both anklesStart: 01-17-2024 End: 87-45-7088opanowyszxHHCUSelect Medical Specialty Hospital - Cantontart: 01-16-2024 End: 97-79-3949kksrifrndoZEPUMercy Iowa City HospitalStart: 01-16-2024 End: 58-75-8943ruaispluldUAPFMayo Clinic Health System [facility] PPGStart: 01-16-2024 End: 08-16-8223Towcndrclvyr care manage srvc 14 day dischargeGriseldamagdalene Thacker DO Work Phone: [facility] Internal Medicine - Family [facility] LimaComment on above:Chronic combined systolic and diastolic CHF (congestive heart failure) ([facility]) (Primary Dx); Type 2 diabetes mellitus without complication, without long-term current use of insulin ([facility]); Primary osteoarthritis of right shoulder; Stage 3b chronic kidney disease ([facility]); Hyperlipidemia, unspecified hyperlipidemia typeStart: 01-09-2024 End: 11-64-7524Yiyggbuyt encounterMisty Domingo [facility]ITALPro[facility] Internal [facility] - Family [facility] Hospitaltart: 01-02-2024 End: 23-30-9979zsdelanqowVYMVPiedmont Macon Hospital Ambulatory PPGStart: 01-02-2024 End: 89-88-5608Wfqbqrfjrzco care manage srvc 14 day dischargeGriseldamagdalene Thacker DO Work Phone: [facility] Phys[facility] Internal Medicine - Family MedicineComment on above:Acute on chronic systolic congestive heart failure ([facility]) (Primary Dx); Essential hypertension; Stage 3b chronic kidney disease ([facility]); Type 2 diabetes mellitus without complication, without long-term current use of insulin ([facility]); Obesity, morbid ([facility])Start: 12-26-2023 End: 56-80-9016Gsjbeowgw encounterMerritt Thacker DO Work Phone: [facility] Internal Medicine - Family MedicineStart: 12-14-2023 End: 42-70-1194Wnlpscdwh encounterSelma Quijano [facility] Internal Medicine - Family MedicineStart: 11-18-2023 End: 86-19-8327OufrzqGrqrd Postell [facility] Internal Medicine - Family MedicineComment on above:Type 2 diabetes mellitus without complication, without long-term current use of insulin ([facility])Start: 09-15-2023 End: 08-79-7573Ubaszvovf encounterNitza Oneal [facility] - [facility] MedicineStart: 09-07-2023 End: 08-64-5725epeojafwktLJYC [facility] HospitalStart: 09-07-2023 End: 17-46-3086Rnnmtr outpatient visit 25 minutesMerritt Thacker DO Work Phone: [facility] Internal Medicine - Family MedicineComment on above:Type 2 diabetes mellitus without complication, without long-term current use of insulin ([facility]) (Primary Dx); Stage 3b chronic kidney disease ([facility]); Essential hypertension; Class 3 severe obesity due to excess calories with serious comorbidity and body mass index (BMI) of60.0 to 69.9 in adult ([facility]); Immunization dueStart: 09-07-2023 End: 87-44-1519ikoshrymwdWGTXMayo Clinic Health System [facility] PPGStart: 48-27-7953Tkjqquglc encounteraKveh Mayer DO Work Phone: [facility] ORTHOPAEDICSComment on above:Refund Checks Start: 04-11-2023 End: 32-92-3719nbpvwfrvklBTIOX B APLINGNot AvailableStart: 07-13-2021 End: 83-29-8697qvcullpfojJvfsjyy HouseFacility:[facility] Start: 16-23-8154Inxjukagr for general adult medical examination without abnormal findingsDR DEVANG BIRCHWilson Health HospitalStart: 10-01-2020 End: 42-63-0461ezgpgleptrYD DEVANG HOUSEFacility:Q0Jjpce: 10-01-2020 End: 31-56-4569Yhvzjhwoi for general adult medical examination without abnormal findingsDR DEVANG HOUSEFacility:H5Mulkb: 04-04-2020 End: 39-43-4918epkbhpqdrdBX DEVANG HOUSEFacility:P4Slnge: 11-25-2019 End: 72-81-4922tviunwvwoyRZ DEVANG HOUSEFacility:W2Ylqhh: 10-18-2019 End: 97-07-7517madxrnmitwVN DEVANG HOUSEFacility:H1 Procedures DateProcedureProcedure DetailPerforming ClinicianStart: 27-78-5073Paimt depression screening assessmentJomagdalene Thacker DO Work Phone: Start: 85-09-8913Cmvhgmdahpfjro aspir&/inj major jt/bursa w/o usMaria B Apling MANAGER WIRELESS Work Phone: Start: 09-54-2532Ijfdz depression screening assessment Merritt Thacker DO Work Phone: Start: 20-90-6067Fdfjlvmpqtss [Mass/volume] in Urine by Test stripGriseldamagdalene Dents DO Work Phone: Start: 88-49-6631Bibufe-up visitFollow-upMERRITT Eng KIRSTIE Start: 14-76-9903Gcker depression screening assessmentGriseldamagdalene Dents DO Work Phone: Start: 91-84-9903Nmpre depression screening assessment Merritt Thacker DO Work Phone: Start: 91-30-5484Emwiu depression screening assessment Merritt Thacker DO Work Phone: Start: 92-21-9621Isnnfgjosepp [Mass/volume] in Urine by Test Luther Lynneyosibharti DO Work Phone: Start: 65-09-3055VKB screeningDR DEVANG HOUSEComment on above:Performed By: #### TSH, LIPID, CMP, PSAD, T4 #### [facility] [address] [place] [address] Wanda Conrad Plan of Treatment DateCare ActivityDetailAuthorStart: 76-04-8608HJiV,Tdap and Td Vaccines (2 - Td or Tdap)DTaP,Tdap and Td Vaccines (2 - Td or Tdap)[facility] I.Systems SystemStart: 80-93-9029Nzuey BMI ScreeningAdult BMI ScreeningWhite Hospital SystemStart: 70-10-1886Bkejntf ScreeningTobacco ScreeningWhite Hospital SystemStart: 66-05-2468Dfwlg BMI ScreeningAdult BMI ScreeningWhite Hospital SystemStart: 39-38-8508Lfsfrmckxl ScreeningDepression ScreeningWhite Hospital SystemStart: 97-43-4863Ybiedk Use: DiabeticStatin Use: DiabeticWhite Hospital SystemStart: 57-11-2894Zvromqk ScreeningTobacco ScreeningWhite Hospital SystemStart: 99-65-2542Zcxxt BMI ScreeningAdult BMI ScreeningWhite Hospital SystemStart: 95-27-6849Duygxdcedo ScreeningDepression ScreeningWhite Hospital SystemStart: 57-17-3654Vdzbqwu ScreeningTobacco ScreeningWhite Hospital SystemStart: 16-61-0401Ebupyupur vaccinationInfluenza VaccineWhite Hospital SystemStart: 20-88-8266Fmdwg screening for proteinUrine MicroalbuminWhite Hospital System Start: 95-11-5093Biktv BMI ScreeningAdult BMI ScreeningWhite Hospital System Start: 48-70-0425Ukcflyfsmk ScreeningDepression ScreeningWhite Hospital System Start: 76-85-1203Utryyem ScreeningTobacco ScreeningWhite Hospital SystemStart: 01-03-2025 End: 37-58-1494Dfswxkx encounter nnkpobhri38/07/2025 1:00 PM EDT Office Visit [facility] [address] [place] [address] Merritt Thacker, DO [address] [id number] [facility] MedicineStart: 04-03-6135Hmffkoehkv Screening Depression ScreeningProMercy Health [facility] SystemStart: 79-33-3580Zmejgfd Screening Tobacco ScreeningProMercy Health Defiance Hospital SystemStart: 04-26-6368Yxlrf BMI Screening Adult BMI ScreeningProMercy Health Defiance Hospital SystemStart: 75-88-4418Syxoxjndip Screening Depression ScreeningProMercy Health Defiance Hospital SystemStart: 98-57-2331Sjotoex Screening Tobacco ScreeningProSelect Medical [facility], Beachwoodtart: 09-03-2024 End: 75-81-5957Duxcvbl encounter cjzireshd18/07/2025 1:30 PM EDT Office Visit [facility] [address] [place] [address] Merritt Thacker, DO [address] [place], [id number] [facility] MedicineStart: 80-28-5636Rpcbof Use: DiabeticStatin Use: DiabeticProSelect Medical [facility] Clinic [facility] Hospital, Beachwoodtart: 06-05-2024 End: 72-53-5452Frqogwx encounter kekdccvfy74/07/2025 1:00 PM EST Office Visit [facility] [address] [place] [address] Merritt Thacker, DO [address], [id number] [facility] MedicineStart: 02-29-2024 End: 54-74-4031Hgtvitw encounter fukurrcpv85/02/2024 12:45 PM EDT Office Visit [facility] [address] [place] [id number] Inna Jefferson, MANAGER WIRELESS [address] [place] [address] Right shoulder pain, unspecified chronicity (Primary Dx)[facility] CI ORTHOPAEDICSComment on above:Right shoulder pain, unspecified chronicity (Primary Dx)Start: 02-21-2024 End: 52-78-1862Hvjvdfb encounter uaxpiqqgh23/24/2024 3:00 PM EDT [facility] [address] [place] [place] [address] Merritt Thacker, DO [address] [place], [place] [facility] MedicineStart: 57-86-8864Jauugroqb vaccination Influenza VaccineProMercy Health Defiance Hospital SystemStart: 01-16-2024 End: 11-01-3972Njptkoi encounter jvdjdipev21/19/2024 4:15 PM EDT [facility] [address] [place] [address] Merritt Thacker, DO [address] [facility], [id number] [facility] MedicineStart: 09-42-7499Jpryosmh foot examination Diabetic Foot ExamProMercy Health Defiance Hospital SystemStart: 19-41-4827Qfpnz screening for proteinUrine MicroalbuminProMercy Health Defiance Hospital SystemStart: 37-94-9558Tyqlzmmkwmjklb of varicella zoster vaccineZoster (Shingles) Vaccine (1 of 2)[facility] SystemStart: 66-96-0317Uxbww BMI Follow Up PlanAdult BMI Follow Up PlanProMercy Health Defiance Hospital SystemStart: 49-82-8282Eywekvsw screeningDiabetic Ophthalmology Exam [facility] End: 16-18-2063HEY W Auto Differential panel - BloodCBC auto differential Lab Routine Stage 3b chronic kidney disease (CMS-HCC) 1 Occurrences starting 0 01/16/2024 until 01/15/2025[facility] CenterFortyCloud SystemComment on above:1 Occurrences starting 01/16/2024 until 01/15/2025ologuard Non-ProMedicaCologuard Non- [facility] Lab Routine Special screening for malignant neoplasm of colon Ordered: 09/03/2024ProCarritus Work Phone: Comment on above:Ordered: 09/03/2024 End: 49-51-0732Wivrxhiqmqohu metabolic 2000 panel - Serum or PlasmaComprehensive metabolic panel Lab Routine Hyperlipidemia, unspecified hyperlipidemia type 1 Occurrences starting 01/16/2024 until 01/15/2025[facility] Work Phone: Comment on above:1 Occurrences starting 01/16/2024 until 01/15/2025 End: 16-70-2903Ymlfkbjuyy A1c/Hemoglobin.total in BloodHemoglobin A1c Lab Routine Type 2 diabetes mellitus without complication, without long-term current use of insulin ([facility]) 1 Occurrences starting 06/05/2024 until 06/05/2025 [facility] Work Phone: Comment on above:1 Occurrences starting 06/05/2024 until 06/05/2025Hemoglobin A1c/Hemoglobin.total in BloodHemoglobin A1c Lab Routine Type 2 diabetes mellitus without complication, without long-term current use of insulin ([facility]) 06/05/2024 5:50 PM [facility] End: 45-72-5438Nbveitntfn A1c/Hemoglobin.total in BloodHemoglobin A1c Lab Routine Type 2 diabetes mellitus without complication, without long-term current use of insulin ([facility]) 1 Occurrences starting 09/07/2023 until 09/06/2024 [facility] Work Phone: Comment on above:1 Occurrences starting 09/07/2023 until 09/06/2024Hemoglobin A1c/Hemoglobin.total in BloodHemoglobin A1c Lab Routine Type 2 diabetes mellitus without complication, without long-term current use of insulin ([facility]) 09/07/2023 11:28 PM [facility] End: 69-22-3892Pdhlbdalqg A1c/Hemoglobin.total in BloodHemoglobin A1c Lab Routine Type 2 diabetes mellitus without complication, without long-term current use of insulin ([facility]) 1 Occurrences starting 01/16/2024 until 01/15/2025 [facility] SystemComment on above:1 Occurrences starting 01/16/2024 until 01/15/2025 End: 16-06-2891Agrut 1996 panel - Serum or PlasmaLipid profile Lab Routine Hyperlipidemia, unspecified hyperlipidemia type 1 Occurrences starting until 01/15/2025[facility] CenterComment on above:1 Occurrences starting 01/16/2024 until 01/15/2025 End: 66-03-4418Duazwtnvf [Mass/volume] in Serum or PlasmaMagnesium Lab Routine Chronic combined systolic and diastolic CHF (congestive heart failure) ([facility]) 1 Occurrences starting 01/16/2024 until 01/15/2025[facility] Comment on above:1 Occurrences starting 01/16/2024 until 01/15/2025 End: 06-62-4747Xrkiaxbdjxjm - Albumin: Creatinine Urine RatioMicroalbumin - Albumin: Creatinine Urine Ratio Lab Routine Type 2 diabetes mellitus without complication, without long-term current use of insulin ([facility]) 1 Occurrences starting 01/16/2024 until 01/15/2025[facility] HospitalComment on above:1 Occurrences starting 01/16/2024 until 01/15/2025 Immunizations Immunization DateImmunizationNotesCare JlbmqstiBypirwps74-22-1246Kdbdtcij trivalent influenza vaccine, adjuvanted, preservative freeMerritt Kirstie DO Work Phone: [facility] Ikifar30-37-0978Tglmgwasgyyb, In Clinic,; Translations: [Drug or medicament (substance)]Merritt Thacker DO Work Phone: [facility] Hftnpn59-89-2103uvitkrhms virus vaccine, unspecified formulationMerritt Filipes DO Work Phone: [facility] Wdiarb95-91-4751knmuhjicu, injectable, quadrivalent, preservative freeMerritt Filipes DO Work Phone: [facility] HospitalCit[facility] Sbeisi82-96-8850qgofnrw toxoid, reduced diphtheria toxoid, and acellular pertussis vaccine, adsorbedJomagdalene Thacker DO Work Phone: [facility] CenterKccalb60-41-8181tvtfhygbq virus vaccine, unspecified formulationJomagdalene Thacker DO Work Phone: [facility] Payers DatePayer CategoryPayerPolicy ID2025Medicare O [id number] [id number] [id number] [id number]-gsk37-98-4057Vhkiioe [id number] 2..840.1.700553.3.57[id number] 2.16840.1.705240.3.57[id number] 2.16.840.1.393120.3.57[id number] 2.16.840.1.019719.3.57[id number] 2..840.1.072571.3.579.2.887038-09-7003Ksmunur99486 2.16.840.1.540274.3.57[id number] 2.16.840.1.549678.3.579.[id number] 2.16.840.1.925826.3.57[id number] 2.16840.1.046978.3.57[id number] 2..840.1.684206.3.579.[id number] 2.16.840.1.168968.3.57[id number] 2..840.1.837864.3.57[id number] 2.16.840.1.926329.3.579.[id number] 2.840.1.261863.3.579.2.5[id number] 2.840.1.606147.3.57[id number] 2.0.1.057783.3.57[id number] 2.840.1.642319.3.579.2.072797-62-3029LtlkycrRSA043Y81690IvoaazxPvlamme [id number] 2.840.1.650387.3.579.2.531 Social History DateTypeDetailFacilityStart: 01-10-2023 End: 73-38-5854Wwzzwiv smoking status NHISNever smoked tobaccoNOMS Healthcare Start: 01-10-2023 End: 98-09-8289Bzttsvo use and exposureSmokeless tobacco non-userNOMS Healthcare Start: 06-09-2023 End: 05-94-6341Xdfkdco intakeCurrent drinker of alcohol (finding)[facility] Start: 07-10-2020 End: 22-41-8908Ivpfmxa of Social functionNOMO HealthcareStart: 07-10-2020 End: 83-06-5046Lbviphd use panelMOUNTAIN VIEW HOSPITAL HealthcareStart: 27-44-2256Lce Assigned At BirthNot on [facility] depression screening assessment0 [facility] Healthtart: 01-07-7318Gxacrra CommentrarePUNC Health Pardeetart: 74-96-9047IxaSqqr (finding)[facility] Clinical Notes 06-17-2023 to 02-15-2025 Note Date & EsuiYrzcHfwzgflh10-15-0189 Miscellaneous Notes* Telephone Encounter - Noemi Caraballo [...] Comments: Left message for patient to contact care aide. Patient is overdue with cologuard order. Will send letter to patient. documented in this encounterUniversity [facility]als [facility]09-19-2025 Telephone encounter Note* Telephone Encounter [...] Comments: Left message for patient to contact care aide. Patient is overdue with cologuard order. Will send letter to patient. [facility]08-25-2025 NoteSUBJECTIVE Reason for Visit: Cristobal Garcia is a 59 y.o. year old male patient being seen for heart failure hospital follow-up. HPI: Cristobal Garcia is a 59 y.o. year old male with significant medical history of heart failure with preserved ejection fraction, hypertension, diabetes type 2, hyperlipidemia, and JACQUE. Recently admitted at [facility] 12/31/2024 for SOB, acute on chronic [...] ago, he is unsur (more content not included)...[facility]04-07-2025 History of Present illness Narrative* Merritt Thacker, DO - 09/03/2024 1:30 PM EDT IM PROGRESS NOTE Patient - Cristobal Garcia Age - 58 y.o. - 1965 ASSESSMENT & PLAN 1. Type 2 diabetes mellitus without complication, without long-term current use of insulin ([facility]) (Primary) - goals of treatment reviewed [...] heart failure) ([facility]) - symptoms are stable -GDMT: Spironolactone, [...] exam was: 2024. Recently referred Ophthalmology in [place], and may need surgery done at [facility] [...] (!) 186.3 kg (410 lb 12.8 oz) SqC074% BMI 66.30 kg/m Physical Exam Vitals reviewed. [...] Testing No results found. Merritt Thacker DO., [facility] Office: [phone] documented in this encounterUniversity Hospitals Lake West Medical Center01-09-2025 Miscellaneous Notes* Telephone Encounter - [facility] Levirodrigo - 06/07/2024 1:18 PM EST Called for pat assist, need proof of income, insurance card and signature documented in this encounterUniversity Hospitals Lake West Medical Center01-09-2025 Telephone encounter Note* Telephone Encounter - [facility] Jaimee - 06/07/2024 1:18 PM EST Called for pat assist, need proof of income, insurance card and signature [facility]01-07-2025 History of Present illness Narrative* Merritt Thacker DO - 06/05/2024 1:00 PM EST IM PROGRESS NOTE Patient - Cristobal Garcia Age - 58 y.o. - 1965 ASSESSMENT & PLAN 1. Type 2 diabetes mellitus without complication, without long-term current use of insulin ([facility]) (Primary) -goals of treatment reviewed with [...] systolic and diastolic CHF (congestive heart failure) ([facility]) -has gained weight -needs to restart his [...] 90 tablet; Refill: 0 3. Obesity, morbid ([facility]) -this plays a major role in his diabetes and heart failure -consider adding G LP 1 agent in addition to current regimen 4. Stage 3b chronic kidney disease ([facility]) -GFR ranges 46-76 over the past year [...] Testing No results found. Merritt Thacker DO., [facility] Office: [phone] documented in this encounterUniversity Hospitals Lake West Medical Center10-04-2024 Telephone encounter Note* Telephone Encounter - Jieallie Murillo - 03/02/2024 1:41 PM EDT Called and left vm for patient. [facility] [id number] Miscellaneous Notes* Telephone Encounter - Jieallie Murillo - 03/02/2024 1:41 PM EDT Called and left vm for patient. * Telephone Encounter - Jie Murillo - 03/01/2024 1:54 PM EDT 's office called regarding a referral they received. is not accepting new patients at this time. Please advise. documented in this encounterSaint Louis University [id number] Telephone encounter Note* Telephone Encounter - Jie Murillo - 03/01/2024 1:54 PM EDT 's office called regarding a referral they received. is not accepting new patients at this time. Please advise. [facility] [id number] History of Present illness Narrative* Inna Jefferson [...] prn. He notes he never heard from [facility] pain management, will send him back for eval of his bilateral knees for possible visco supplementation He notes since he came off his nsaids by his pcp his bilateral ankle and knees have been bothering him. Will send to dr. Payne, he is looking for ankle injections documented in this encounterSaint Louis University [id number] History of Present illness Narrative* Merritt Thacker, DO - 02/21/2024 3:00 PM EDT IM PROGRESS NOTE Patient - Cristobal Garcia Age - 58 y.o. - 1965 ASSESSMENT & PLAN 1. Type 2 diabetes mellitus without complication, without long-term current use of insulin ([facility]) -I reviewed the results of the recent [...] systolic and diastolic CHF (congestive heart failure) ([facility]) -GDMT includes ARB (losartan), beta-bishop (carvedilol), spironolactone [...] Testing No results found. Merritt Thacker DO., [facility] Office: [phone] documented in this encounterUniversity Hospitals Lake West Medical Center08-19-2024 History of Present illness Narrative* [...] post discharge medication. He was discharged from [facility] after being admitted for acute on [...] a daily basis. He ran out of [place] and is taking his old furosemide. In [...] for home nocturnal oxygen. Request sent to [facility]. Diagnoses and all orders for this visit: Chronic combined systolic and diastolic CHF (congestive heart failure) ([facility]) - aspirin 81 mg chewable tablet; Chew [...] complication, without long-term current use of insulin ([facility]) - Hemoglobin A1c; Future - Microalbumin - [...] before bedtime. Stage 3b chronic kidney disease ([facility]) - CBC auto differential; Future Hyperlipidemia, unspecified hyperlipidemia type - Comprehensive metabolic panel; Future - Lipid profile; Future documented in this encounterMagruder Memorial HospitalWowcracy Pontiac [facility] [id number] Miscellaneous Notes* Telephone Encounter - Eneida Lane CMA - 01/09/2024 4:59 PM EDT Alyssa from [facility] called wanting to know if you would follow this pt for home health care as he was discharged today from [facility] * Telephone Encounter - Merritt Thacker [...] EDT Message noted. Yes documented in this encounterUniversity Hospitals Lake West Medical Center08-12-2024 Telephone encounter Note* Telephone Encounter - Eneida Lane CMA - 01/09/2024 4:59 PM EDT Alyssa from [facility] called wanting to know if you would follow this pt for home health care as he was discharged today from [facility]08-12-2024 Telephone encounter Note* Telephone Encounter - Merritt Thacker DO - 01/09/2024 4:59 PM EDT Message noted. Yes [facility]08-12-2024 Telephone encounter Note* Telephone Encounter - Merritt Thacker DO - 01/09/2024 4:59 PM EDT Message noted. Yes. He will need a TCM [facility]08-12-2024 Telephone encounter Note* Telephone Encounter - Blanca Hermosillo - 01/09/2024 4:59 PM EDT He comes in 01/15 is that okay [facility]08-12-2024 Telephone encounter Note* Telephone Encounter - Merritt Thacker DO - 01/09/2024 4:59 PM EDT Message noted. Yes [facility]08-05-2024 History of Present illness Narrative* [...] post discharge medication. Patient was discharge from [facility] on 12/19/2023 after being admitted for [...] Affect: Mood normal. Behavior: Behavior normal. Assessment/Plan Critsobal was seen today for bloating and swelling belly on down. He apparently has had return of allhis symptoms since he was discharged from [facility], and actually feels worse. It does [...] heart failure ([facility]) - I advised the patient that he needs to be admitted to the hospital to re- evaluate his current medical regimen, particularly with an eye toward starting SGLT2 agent, Entresto, spironolactone. I phoned to the [facility], but no rooms are available and patient is are being boarded in the ER. I advised the patient to had directly to the [facility] for readmission at this time. Essential hypertension - overall control today. -no changes. Treatment for congestive heart failure will involve controlling hypertension Stage 3b chronic kidney disease ([facility]) - need to reassess renal function given his description of ice tea urine - admit to hospital as above Type 2 diabetes mellitus without complication, without long-term current use of insulin ([facility]) - previously on Rybelsus plus metformin - currently only on metformin, which given his kidney disease may not be the best choice - probably needs SGLT2 agent given his heart failure and diabetes - this will be evaluated during admission Obesity, morbid ([facility]) - BMI 68 - some of this may be water weight. Needs to be addressed during admission. documented in this encounterUniversity Hospitals Lake West Medical Center07-29-2024 Miscellaneous Notes* Telephone Encounter - Blanca Hermosillo - 12/26/2023 4:08 PM EDT ----- Message from Dr. Merritt Thacker DO sent at 09/07/2023 7:47 PM EDT ----- DM recheck * Telephone Encounter - Blanca Hermosillo - 12/26/2023 4:08 PM EDT Pt hung up documented in this encounterUniversity Hospitals Lake West Medical Center07-29-2024 Telephone encounter Note* Telephone Encounter - Blanca Hermosillo - 12/26/2023 4:08 PM EDT ----- Message from Dr. Merritt Thacker DO sent at 09/07/2023 7:47 PM EDT ----- DM recheck [facility]07-29-2024 Telephone encounter Note* Telephone Encounter - Blanca Hermosillo - 12/26/2023 4:08 PM EDT Pt hung up [facility]07-17-2024 Miscellaneous Notes* Telephone Encounter - [...] Patient notified and understands. documented in this encounterUniversity Hospitals Lake West Medical Center07-17-2024 Telephone encounter Note* Telephone Encounter - Selma Quijano CMA - 12/14/2023 1:39 PM EDT Patient called and stated he is retaining fluid in his abdomen area and it is making him so SOB. What do you suggest he do? [facility]07-17-2024 Telephone encounter Note* Telephone Encounter - Merritt Thacker DO - 12/14/2023 1:39 PM EDT Message noted. I have no room for him today He will need to go to the ED [facility]07-17-2024 Telephone encounter Note* Telephone Encounter - Selma Quijano CMA - 12/14/2023 1:39 PM EDT Patient notified and understands. [facility]04-18-2024 Miscellaneous Notes* Telephone Encounter - Nitza Oneal CMA - 09/15/2023 10:15 AM EDT Pt called and states he was wondering if his sample of RYBELSUS was ready. It is and he states he will pick it up. * Telephone Encounter - Blanca Hermosillo - 09/15/2023 10:15 AM EDT Picked up documented in this encounterUniversity Hospitals Lake West Medical Center04-18-2024 Telephone encounter Note* Telephone Encounter - Nitza Oneal CMA - 09/15/2023 10:15 AM EDT Pt called and states he was wondering if his sample of RYBELSUS was ready. It is and he states he will pick it up. [facility]04-18-2024 Telephone encounter Note* Telephone Encounter - Blanca Hermosillo - 09/15/2023 10:15 AM EDT Picked up [facility]04-10-2024 History of Present illness Narrative* Merritt Thacker, DO - 09/07/2023 1:00 PM EDT IM PROGRESS NOTE Patient - Cristobal Garcia Age - 57 y.o. - [address] [facility] # - [id number] ASSESSMENT & PLAN 1. Type 2 diabetes mellitus without complication, without long-term current use of insulin ([facility]) - Goals of treatment reviewed with patient - Currently on metformin and sitagliptan - Repeat A1c to assess efficacy of treatment. Might be better with GLP-1 and SGLT-2 agents - Comprehensive metabolic panel; Future - Hemoglobin A1c; Future - Lipid profile; Future 2. Stage 3b chronic kidney disease ([facility]) - Repeat GFR - Renal protective strategies reviewed with patient. - Advised patient to stop voltaren tablets - May benefit from SGLT-2 3. Essential hypertension - Goals reviewed with patient - Currently taking losartan 50 mg daily - No change today 4. Class 3 severe obesity due to excess calories with serious comorbidity and body mass index (BMI)of 60.0 to 69.9 in adult ([facility]) - We reviewed importance of weight loss [...] Testing No results found. Merritt Thacker DO., [facility] Office: [phone] documented in this encounterUniversity Hospitals Lake West Medical Center01-19-2024 Telephone encounter Note* Telephone Encounter - [facility] July - 06/17/2023 9:18 AM EST Sarah, patient called stated that he received two refund checks from [employer]. He deposited the checks and then was told from his bank that they bounced. If you could look into this for me please, all I am seeing is that the refunds were sent out. Call back # [phone] [facility] [id number] Miscellaneous Notes* Telephone Encounter - [facility] July - 06/17/2023 9:18 AM EST Sarah, patient called stated that he received two refund checks from [employer]. He deposited the checks and then was told from his bank that they bounced. If you could look into this for me please, all I am seeing is that the refunds were sent out. Call back # [phone] documented in this encounterNOMO HealthcareEvaluation note* Diagnosis Right shoulder pain, unspecified chronicity- Primary Chronic pain of both knees Chronic pain of both ankles Impingement of right shoulder documented in this encounter [facility]* Diagnosis Type 2 diabetes mellitus without complication, without long-term current use of insulin ([facility] Primary Chronic combined systolic and diastolic CHF (congestive heart failure) ([facility]) Obesity, morbid ([facility]) Morbid obesity Stage 3b chronic kidney disease ([facility]) Encounter for screening for malignant neoplasm of prostate Encounter for immunization Primary osteoarthritis of right shoulder Non-seasonal allergic rhinitis, unspecified trigger [facility] Diagnosis Type 2 diabetes mellitus without complication, without long-term current use of insulin ([facility]) documented in this encounter [facility]* Diagnosis Acute on chronic systolic congestive heart failure ([facility])- Primary Essential hypertension Unspecified essential hypertension Stage 3b chronic kidney disease ([facility]) Type 2 diabetes mellitus without complication, without long-term current use of insulin ([facility]) Obesity, morbid ([facility]) Morbid obesity documented in this encounter [facility]* Diagnosis Type 2 diabetes mellitus without complication, without long-term current use of insulin ([facility])- Primary Stage 3b chronic kidney disease ([facility]) Essential hypertension Unspecified essential hypertension Class 3 severe obesity due to excess calories with serious comorbidity and body mass index (BMI) of60.0 to 69.9 in adult ([facility]) Immunization due documented [facility] this encounter [facility]* Diagnosis Chronic combined systolic and diastolic CHF (congestive heart failure) ([facility]) - Primary Type 2 diabetes mellitus without complication, without long-term current use of insulin ([facility]) Primary osteoarthritis of right shoulder Stage 3b chronic kidney disease ([facility]) Hyperlipidemia, unspecified hyperlipidemia type documented [facility] this encounter [facility]* Diagnosis Type 2 diabetes mellitus without complication, without long-term current use of insulin ([facility])- Primary Chronic combined systolic and diastolic CHF (congestive heart failure) ([facility]) Primary osteoarthritis of right shoulder Chronic right shoulder pain Pain in joint, shoulder region Primary osteoarthritis of both ankles documented [facility] this encounter [facility]* Diagnosis Type 2 diabetes mellitus without complication, without long-term current use of insulin ([facility]) documented in this encounter [facility]* Diagnosis Type 2 diabetes mellitus without complication, without long-term current use of insulin ([facility])- Primary Special screening for malignant neoplasm of colon Special screening for malignant neoplasms, colon Chronic combined systolic and diastolic CHF (congestive heart failure) ([facility]) Non-seasonal allergic rhinitis, unspecified trigger Primary osteoarthritis of right shoulder documented in this encounter [facility]* Diagnosis Type 2 diabetes mellitus without complication, without long-term current use of insulin ([facility]) Non-seasonal allergic rhinitis, unspecified trigger documented [...] HIGH MDM 60 MINUTES Inna Jefferson NP [address] [place] [id number] Ivan Payne MD [address] [place] [address] [place] [address] Referral IDStatusReasonStart DateExpiration DateVisits RequestedVisits [id number] Review Specialty Services Required * Consultation (Routine) - Pending ReviewSpecialtyDiagnoses / ProceduresReferred By ContactReferred To ContactPain Medicine Diagnoses Chronic pain of both knees Procedures MO OFFICE/OUTPATIENT NEW HIGH MDM 60 MINUTES Inna Jefferson NP [address] [place] [address] Karel Blackwell MD [address] [place] [address] Referral IDStatusReasonStart DateExpiration DateVisits RequestedVisits [id number] Review Specialty Services Required * Clinic-Administered Medication (Routine) - AuthorizedSpecialtyDiagnoses / ProceduresReferred By ContactReferred To ContactOrthopaedic Surgery Diagnoses Impingement of right shoulder Procedures L Inj/Asp: R subacromial bursa Inna Jefferson NP [address] [facility] [address] [place] [address] Referral IDStatusReasonStart DateExpiration DateVisits RequestedVisits [id number] GABY Paz for referral (narrative)* Consultation (Routine) - Pending ReviewSpecialtyDiagnoses / ProceduresReferred By ContactReferred To Contact Orthopedic Surgery / MED-SURG/ORTHOPEDICS Diagnoses Primary osteoarthritis of right shoulder Chronic right shoulder pain Primary osteoarthritis of both ankles Merritt Thacker DO [address] [place] [address] Kaveh Mayer DO [address] [facility] [address] [place] [address] Referral IDStatusReasonStart DateExpiration DateVisits RequestedVisits [id number] Review Specialty Services Required [facility] [...] of insulin ([facility]) Merritt Thacker DO [address] [place] [address] Referral IDStatusReasonStart DateExpiration DateVisits RequestedVisits [id number] Additional Source Comments (unrecognized sect ion and content) No Status Records FoundNo Status Records FoundNo Status Records FoundNo Status Records FoundNo Status Records FoundNo Status Records Found INFORMATION SOURCE (unrecogn ized section and content) DATE CREATED AUTHOR 10/11/2020 [facility] DATE CREATED AUTHOR AUTHOR'S ORGANIZ ATION 07/03/2022 [facility] DATE CREATED AUTHOR AUTHOR'S ORGANIZ ATION 03/02/2024 [facility] EPIC DATE CREATED AUTHOR AUTHOR'S ORGANIZ ATION 09/05/2024 [facility] DATE CREATED AUTHOR AUTHOR'S ORGANIZ ATION 09/05/2024 [facility] DATE CREATED AUTHOR AUTHOR'S ORGANIZ ATION 01/22/2025 [facility] Reason for Visit (unrecogniz ed section and content) ReasonOnset DateCommentsRefund [id number]lty Diagnoses / ProceduresReferred By ContactReferred To ContactOrthopaedic Surgery Diagnoses Primary osteoarthritis of right shoulder Chronic right shoulder pain Primary osteoarthritis of both ankles Procedures AMB REFERRAL TO ORTHOPEDIC SURGERY Merritt Thacker MD [address] [place] [address] Kaveh Mayer DO [address] [facility] [address] [place] [address] Referral IDStatusReasonStart DateExpiration DateVisits RequestedVisits [id number] DateCommentsReferral 4ReasonCommentsHypertensionHyperlipidemiacvReasonOnset DateCommentsMed [id number] and swelling belly on downNo feverReason CommentsDiabetesStomach some hard skinReasonCommentsFollow-upReasonComments DiabetesReasonCommentsMed RefillReasonCommentsDiabetesReasonOnset DateComments Colon Cancer Pftrvulyv21/19/2025 Care Teams (unrecognized sec tion and content) Team MemberRelationshipSpecialtyStart DateEnd Date Merritt Thacker MD [address] [place] [address] PCP - GeneralInternal Oszkcwwu83/30/23Team MemberRelationshipSpecialtyStart Date End Date Merritt Thacker MD [address] [place] [address] PCP - GeneralInternal Vrbgbpdo17/30/23Team MemberRelationshipSpecialtyStart Date End Date Merritt Thacker MD [address] [place] [address] PCP - GeneralInternal Mccleqiz31/30/23Team MemberRelationshipSpecialtyStart Date End Date Merritt Thacker MD [address] [place] [address] PCP - GeneralInternal Ignsuytb58/30/23Team MemberRelationshipSpecialtyStart Date End Date Merritt Thacker DO [address] [place] [address] PCP - GeneralInternal Medicine01/12/23Team MemberRelationshipSpecialtyStart Date End Date Juan AntonioyosiMerritt hay DO [address] [place] [address] PCP - GeneralInternal Medicine01/12/23Team MemberRelationshipSpecialtyStart Date End Date Merritt Thacker, DO [address] [place] [address] PCP - GeneralInternal Medicine01/12/23Team MemberRelationshipSpecialtyStart Date End Date Merritt Thacker DO [address] [place] [address] PCP - GeneralInternal Medicine01/12/23Team MemberRelationshipSpecialtyStart Date End Date Merritt Thacker, DO [address] [place] [address] PCP - GeneralInternal Medicine01/12/23Team MemberRelationshipSpecialtyStart Date End Date Merritt Thacker, DO [address] [place] [address] PCP - GeneralInternal Medicine01/12/23Team MemberRelationshipSpecialtyStart Date End Date Merritt Thacker, DO [address] [place] [address] PCP - GeneralInternal Medicine01/12/23Team MemberRelationshipSpecialtyStart Date End Date Merritt Thacker DO [address] [facility] [place] [address] [facility]01/12/23[facility] MemberRelationshipSpecialtyStart Date End Date Merritt Thacker DO [address] [facility] [place] [address] [facility]01/12/23[facility] MemberRelationshipSpecialtyStart Date End Date Merritt Thacker DO [address] [facility] [address] [facility]01/12/23[facility] MemberRelationshipSpecialtyStart Date End Date Merritt Thacker DO [address] [facility] [place] [address] [facility]01/12/23[facility] MemberRelationshipSpecialtyStart Date End Date Merritt Thacker DO [address] [facility] [place] [address] [facility]01/12/23 FOR RECORDS PERTAINING TO PATIENTS WHO [...] BE BASED ON THE PRIMARY CLINICAL RECORDS. [facility] [employer] [facility]. provides no warranty or guarantee of the accuracy or completeness of information in this document.
[2025-04-15 14:14] LABS: Alanine Aminotransferase 71 U/L (16-63); Albumin Globulin Ratio 1.0; Albumin Level 3.3 g/dL (3.4-5.0); Alkaline Phosphatase 97 U/L (46-116); Anion Gap 16.3; Aspartate Amino Transferase 32 U/L (15-37); Calcium 8.7 mg/dL (8.5-10.1); Carbon Dioxide 30.1 mmol/L (21.0-32.0); Chloride 101 mmol/L (98-107); Estimated GFR (African America 41 (>=60 mL/min/1.73m^2); Estimated GFR (Non-African Ame 34 (>=60 mL/min/1.73m^2); Globulin 3.3 g/dL; Glucose 165 mg/dL (74-106); Potassium 4.4 mmol/L (3.5-5.1); Sodium 143 mmol/L (136-145); Total Protein 6.6 g/dL (6.4-8.2)
[2025-04-15 14:16] LABS: Blood Urea Nitrogen 76.0 mg/dL (7.0-18.0)
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
[2025-04-15] MEDS: IPRATROPIUM/ALBUTEROL SULFATE 3 ML AMPUL.NEB IH (15:19)
[2025-04-15 15:41] LABS: Allen Test POSITIVE (POSITIVE); HCO3 ABG 29.6 mmol/L (22.0-26.0); Liters per Minute 2; O2 Mode N/C; Oxygen Saturation ABG 94.7 %; PO2 ABG 85.1 mmHg (80.0-100.0); Puncture Site L RAD
[2025-04-15 15:43] LABS: ABG PCO2 69.7 mmHg (35.0-45.0)
[2025-04-15] MEDS: METHYLPREDNISOLONE SOD SUCC PF 125 MG/2 ML VIAL IVP (15:53)
[2025-04-15] MEDS: FUROSEMIDE 40 MG/4 ML VIAL IVP (15:54)
--- NOTE | 2025-04-15 16:04 | RESP.RT ---
Pt taken off of 2L nasal cannula and placed on BIPAP 16/ Fi02 35% due to high PC02.
--- NOTE | 2025-04-15 17:05 | RESP.RT ---
Pt brought up to floor on 2L nasal cannula and placed back on BIPAP.
--- OUTSIDE RECORDS SUMMARY | 2025-04-15 17:07 | XMS_ITS | CCD ---
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 Name Role Phone HOUSE, DR GLEZ Primary Care Unavailable HOUSE, DR GLEZ Admitting Unavailable HOUSE, DR GLEZ Attending Unavailable HOUSE, DR GLEZ Consulting Unavailable ZIEBKATTY, DR EFRA Bradshaw Consulting Unavailable HOUSE, DR GLEZ Primary Care Unavailable HOUSE, DR LGEZ Admitting Unavailable HOUSE, DR GLEZ Attending Unavailable [...] TypeDate of OnsetReaction(s) FacilityAnti-Epileptic Agents (1 source)topiramateDrug Ukzomru91-68-5056QpvDel[facility] (6 sources)topiramate; Translations: [TOPIRAMATE]Drug Qkxqqih61-35-2534HdpfwfksbUniversity Hospitals [facility] Repository (5 sources)TopiramatePropensity to adverse vbxnpktop59-52-8631[facility] (15 sources)topiramateDrug Lulzrmt53-72-3074Qaqgscou, Other (See Comments) [facility] Medications Current Medications MedicationDrug Class(es)DatesSig (Normalized)Sig (Original)[id number] 200 actuat albuterol 0.09 mg/actuat metered dose inhaler (10 sources)beta2-Adrenergic AgonistStart: 39-38-1664lxxf 2 puff(s) by mouth every four hours as needed for wheezingalbuterol (PROVENTIL HFA;VENTOLIN HFA) 90 mcg/actuation inhaler INHALE 2 PUFFS BY MOUTH EVERY 4 HOURS NEEDED for SHORTNESS OF BREATH or FOR WHEEZING 12/18/2023 ActiveamLODIPine 5 mg oral tablet (5 sources)Dihydropyridine Calcium Channel BlockeramLODIPine (Norvasc) 5 MG tablet Activeaspirin 81 mg chewable tablet (8 sources)Platelet Aggregation Inhibitor, Nonsteroidal Anti-inflammatory Drug Start: 59-47-9190exgmhqa 81 mg chewable tablet Indications: Chronic combined systolic and diastolic CHF (congestive heart failure) [place] Chew 1 tablet (81 mg total) and swallow in the morning. 90 tablet 1 01/16/2024 Active atorvastatin 40 mg oral tablet (20 sources)HMG-CoA Reductase InhibitorStart: 01-09-2024 End: 39-76-6134gkfr 1 tablet by mouth once dailyatorvastatin (LIPITOR) 40 mg tablet Indications: Type 2 diabetes mellitus without complication, without long- term current use of insulin [place] Take 1 tablet (40 mg total) by mouth nightly. 90 tablet 1 06/05/2024 ActiveStart: 03-10-2023 End: 25-82-6514hygg 1 tablet by mouth in the morningatorvastatin [...] mg oral tablet (11 sources)gamma-Aminobutyric Acid-ergic AgonistStart: 74-37-6501lpfx 2 tablets by mouth twice daily as needed for muscle spasmsbaclofen 5 mg tablet Indications: Primary osteoarthritis of right shoulder Take 2 tablets by mouth 2 (two) times a day as needed (back spasm). 09/03/2024 ActiveStart: 01-16-2024 End: 34-67-1263yfaa 1 tablet by mouth twice daily as needed for muscle spasms baclofen 5 mg tablet Indications: Primary osteoarthritis of right shoulder Take 1 tablet by mouth 2(two) times a day as needed (back spasm). 60 tablet 2 06/05/2024 09/03/2024 Discontinuedcarvedilol 12.5 mg oral tablet (10 sources)alpha-Adrenergic Bishop, beta-Adrenergic BlockerStart: 01-09-2024 End: 28-90-3411uokc 1 tablet by mouth in the morning, then take 1 tablet by mouth at mealtimecarvediloL (COREG) 12.5 mg tablet Indications: Chronic combined systolic and diastolic CHF (congestive heart failure) ([facility]) Take 1 tablet (12.5 mg total) by mouth in the morning and 1 tablet (12.5 mg total) in the evening. Take with meals. 180 tablet 1 06/05/2024 Activecetirizine hydrochloride 10 mg oral tablet (4 sources)Histamine-1 Receptor AntagonistStart: 09-03-2024 End: 51-04-3744lkdg 1 tablet by mouth in the morningcetirizine (ZyrTEC) 10 mg tablet Indications: Non-seasonal allergic rhinitis, unspecified trigger Take 1 tablet (10 mg total) by mouth in the morning. 30 tablet 12/03/2024 Active dapagliflozin 10 mg oral tablet (8 sources)Sodium-Glucose Cotransporter 2 InhibitorStart: 96-16-4306lcvm 1 tablet by mouth in the morningdapagliflozin propanediol (FARXIGA) 10 mg tablet Indications: Chronic combined systolic and diastolic CHF (congestive heart failure) ([facility]) Take 1 tablet (10 mg total) by mouth in the morning. 120 tablet 2 06/07/2024 ActiveStart: 02-21-2024 End: 68-20-8434fryh 1 tablet by mouth in the morningdapagliflozin propanediol (FARXIGA) 10 mg tablet Indications: Chronic combined systolic and diastolic CHF (congestive heart failure) ([facility]) Take 1 tablet (10 mg total) by mouth in the morning. 90 tablet 1 06/05/2024 Activeferrous sulfate 325 mg oral tablet (5 sources)take 1 tablet by mouth in the morningferrous sulfate 325 (65 Fe) MG tablet Take 1 tablet by mouth in the morning. Activefurosemide 40 mg oral tablet (20 sources)Loop DiureticStart: 01-16-2024 End: 86-76-9101yexf 1 tablet by mouth once dailyfurosemide (LASIX) 40 mg tablet Indications: Chronic combined systolic and diastolic CHF (congestive heart failure) ([facility]) Take 1 tablet (40 mg total) by mouth daily. 30 tablet 11 06/05/2024 ActiveStart: 12-21-2022 End: 42-20-9754doyj 1 tablet by mouth once dailyfurosemide (LASIX) 40 mg tablet Take 1 tablet (40 mg total) by mouth daily. 12/21/2022 01/02/2024 Discontinued (Patient Stopped On Own)furosemide (Lasix) 20 MG tablet Active hydroCHLOROthiazide 25 mg / triamterene 37.5 mg oral tablet (5 sources)Potassium-sparing Diuretic, Thiazide Diuretictriamterene- hydrochlorothiazide (Maxzide-25) 37.5-25 MG tablet Activelosartan potassium 50 mg oral tablet (20 sources)Angiotensin 2 Receptor BlockerStart: 03-10-2023 End: 31-68-8799jzcs 1 tablet by mouth in the morninglosartan (COZAAR) 50 mg tablet Indications: Chronic combined systolic and diastolic CHF (congestiveheart failure) ([facility]) Take 1 tablet (50 mg total) by mouth in the morning. 90 tablet 1 06/05/2024 Activemagnesium oxide 250 mg oral tablet (8 sources)Start: 63-24-7731fpxq 1 tablet by mouth in the morningmagnesium oxide 250 mg tablet Indications: Chronic combined systolic and diastolic CHF (congestive heart failure) ([facility]) Take 1 tablet (250 mg total) by mouth in the morning. 90 tablet 1 01/16/2024 ActivemetFORMIN hydrochloride 1000 mg oral tablet (20 sources)BiguanideStart: 12-21-2022 End: 86-54-5578ojvg 1 tablet by mouth twice daily at bedtimemetFORMIN (GLUCOPHAGE) 1000 mg tablet Indications: Type 2 diabetes mellitus without complication, without long-term current use of insulin [place] TAKE 1 TABLET BY MOUTH TWICE DAILY (IN THE MORNINGand BEFORE bedtime) 180 tablet 12/03/2024 Activepantoprazole 40 mg delayed release oral tablet (5 sources)Proton Pump Inhibitortake 1 tablet by mouth twice dailypantoprazole (ProtoNix) 40 MG EC tablet Take 1 tablet twice a day by oral route. Xbygnn19 hr phentermine 3.75 mg / topiramate 23 [...] oral tablet (7 sources)Dipeptidyl Peptidase 4 InhibitorStart: 60-14-9687bmjw 1 tablet by mouth in the morningSITagliptin (Januvia) 100 MG tablet Take 100 mg by mouth in the morning. 03/10/2023 Activespironolactone 25 mg oral tablet (10 sources)Aldosterone AntagonistStart: 01-09-2024 End: 44-27-5206rpoz 1 tablet by mouth in the morningspironolactone (ALDACTONE) 25 mg tablet Indications: Chronic combined systolic and diastolic CHF (co ngestive heart failure) ([facility]) Take 1 tablet (25 mg total) by mouth in the morning. 90 tablet 06/05/2024 ActivetiZANidine 4 mg oral tablet (14 sources)Central alpha-2 Adrenergic Agonist End: 32-96-3164umDIZnnjrg (Zanaflex) 4 MG tablet Active End: 98-72-9754yalp 1 capsule by mouth every eight hours [...] ADJUVANT COMPONENT-PF) suspension (1 source)Start: 09-07-2023 End: 09-78-1994plgoyxyc AS01B, PF,vial 1 of 2 (SHINGRIX ADJUVANT COMPONENT-PF) suspension Indications: Immunization due Inject 0.5 mL into the appropriate muscle once for 1 dose. Repeat dose in 2 -4 months 0.5 mL 09/07/2023 Expiredbenzonatate 100 mg oral capsule (5 sources)Non-narcotic AntitussiveStart: 12-18-2023 End: 32-83-6127jvdr 2 capsules by mouth every eight hours as neededbenzonatate (TESSALON PERLES) 100 mg capsule TAKE 2 CAPSULES BY MOUTH EVERY 8 HOURS NEEDED for coughing 12/18/2023 06/05/2024 Discontinued (Therapy completed) bumetanide 1 mg oral tablet (3 sources)Loop DiureticStart: 12-18-2023 End: 77-97-0530safa 1 tablet by mouth once dailybumetanide (BUMEX) 1 mg tablet TAKE 1 TABLET BY MOUTH DAILY FOR 15 DAYS 12/18/2023 01/16/2024 Discontinued (Therapy completed)diclofenac sodium 0.01 mg/mg topical gel (20 sources)Nonsteroidal Anti-inflammatory DrugStart: 01-16-2024 End: 16-28-2875fhklijvaia sodium (VOLTAREN) 1 % gel Indications: Primary osteoarthritis of right shoulder Apply 2 g topically in the morning and 2 g at noon and 2 g in the evening and 2 g before bedtime. 100 g 2 01/16/2024 02/21/2024 Discontinued (Ineffective)Start: 03-21-2023 End: 27-84-0729mtqq 1 tablet by mouth in the morningdiclofenac (Voltaren) 75 MG EC tablet Take 75 mg by mouth in the morning and 75 mg before bedtime. 1 ActiveStart: 03-10-2023 End: 51-87-0133ujohocteke sodium (VOLTAREN) 1 % gel Indications: Chronic right shoulder pain Apply 2 g topically in the morning and 2 g at noon and 2 g in the evening and 2 g before bedtime. 100 g 2 03/10/2023 01/02/2024 Discontinued (Patient Stopped On Own)DULoxetine 30 mg delayed release oral capsule (6 sources)Serotonin and Norepinephrine Reuptake Inhibitor End: 96-60-1170voit 1 capsule by mouth once dailyDULoxetine (CYMBALTA) 30 mg capsule Take 1 capsule every day by oral route. 01/02/2024 Discontinued(Patient Stopped On Own)fexofenadine hydrochloride 180 mg oral tablet (11 sources)Histamine-1 Receptor AntagonistStart: 02-23-2024 End: 97-54-8204ickg 1 tablet by mouth once daily as needed for congestion fexofenadine (NEREYDA) 180 mg tablet Indications: Non-seasonal allergic rhinitis, unspecified trigger Take 1 tablet (180 mg total) by mouth daily as needed (congestion). 30 tablet 2 06/05/2024 09/03/2024 Discontinued (Ineffective)Start: 12-21-2022 End: 71-92-2138eeqr 1 tablet by mouth in the morningfexofenadine (NEREYDA) 180 mg tablet Take 1 tablet (180 mg total) by mouth in the morning. 12/21/2022 01/02/2024 Discontinued (Patient Stopped On Own)gabapentin 600 mg oral tablet (6 sources)Anti-epileptic AgentStart: 12-08-2022 End: 83-91-9950urli 1 tablet by mouth three times dailygabapentin (NEURONTIN) 600 mg tablet Take 1 tablet (600 mg total) by mouth 3 (three) times a day. 09/07/2023 Discontinued (Therapy completed)Start: 88-38-1970clvc 1 capsule by mouth in the morning, then take 1 capsule by mouth in the evening, then take 1 capsule by mouth at bedtimegabapentin (Neurontin) 300 MG capsule Take 300 mg by mouth in the morning and 300 mg in the eveningand 300 mg before bedtime. 04/27/2022 Rrsxbt67 hr isosorbide mononitrate 30 mg extended release oral tablet (4 sources)Nitrate VasodilatorStart: 12-18-2023 End: 70-23-5586wiyq 1 tablet by mouth once dailyisosorbide mononitrate (IMDUR) 30 mg 24 hr tablet TAKE 1 TABLET BY MOUTH EVERY DAY FOR 15 DAYS 12/18/2023 02/21/2024 Discontinued (Therapy completed)levoFLOXacin 750 mg oral tablet (1 source)Quinolone AntimicrobialStart: 12-18-2023 End: 63-36-1270swdp 1 tablet by mouth once dailylevoFLOXacin (LEVAQUIN) 750 mg tablet TAKE 1 TABLET BY MOUTH DAILY FOR 3 DAYS 12/18/2023 01/02/2024iscontinued (Therapy completed)1 ml methylPREDNISolone acetate 40 mg/ml injection (4 sources)CorticosteroidStart: 02-29-2024 End: 05-54-1732ubkcvsVZGNVGPkgypa acetate (DEPO-Medrol) injection 40 mgStart: 02-29-2024 End: 82-49-492483 mg, Intra-articular, Once PRN Procedure, Starting on Tue02/29/24 at 1302, For 1 dosemetoprolol tartrate 25 mg oral tablet (8 sources)beta-Adrenergic BlockerStart: 12-18-2023 End: 86-21-1539pqnm 1 tablet by mouth twice dailymetoprolol tartrate [...] mg oral tablet (6 sources)Start: 09-23-2023 End: 91-23-9436ryrg 1 tablet by mouth in the morningsemaglutide (RYBELSUS) 7 mg tablet Indications: Type 2 diabetes mellitus without complication, without long- term current use of insulin [place] Take 7 mg by mouth in the morning. 90 tablet 1 11/18/2023 01/02/2024 Discontinued (Patient Stopped On Own)traMADol hydrochloride 50 mg oral tablet (1 source)Opioid Agonist End: 86-86-8903yxwa 2 tablets by mouth twice dailytraMADoL (ULTRAM) 50 mg tablet Take 2 tablets twice a day by oral route. 09/07/2023 Discontinued (Therapy completed) Problems Active Problems Problem ClassificationProblemDateDocumented DateEpisodic/ChronicAlcohol-related disorders (1 source)Alcohol abuse with intoxication, unspecified; Translations: [ALCOHOL ABUSE WITH INTOXICATION UNS]Onset: 28-20-8826BtcrnwrCwwtqz (1 source)Unspecified asthma, uncomplicated; Translations: [Unspecified asthma, uncomplicated]Onset: 92-85-0502NwugagjMhfaife kidney disease (19 sources)Chronic kidney disease stage 3B ; Translations: [Stage 3b chronic kidney disease ([facility]Onset: 759287-83-0294CsqpnycRqsqwos kidney disease (2 sources)Chronic kidney disease; Translations: [Chronic kidney disease, stage 3b]Onset: 01-86-7772Bsgvyregza heart failure; nonhypertensive (20 sources)Chronic combined systolic and diastolic heart failure; Translations: [Chronic combined systolic (congestive) and diastolic (congestive) heart failure]Onset: 01-02-2024 Resolved: 238260-54-6113TlziiszDrcccorx atherosclerosis and other heart disease (4 sources)Atherosclerotic heart disease of [place] coronary artery without angina pectoris; Translations: [Oldmyocardial infarction]Onset: 11-27-2019 ChronicDiabetes mellitus without complication (20 sources)Type 2 diabetes mellitus without complications; Translations: [Type 2 diabetes mellitus without complication]Onset: 85-43-8939NcripdmGrnikgkok of lipid metabolism (20 sources)Hyperlipidemia; Translations: [Hyperlipidemia, unspecified]Onset: 620193-08-6900DigssakOovhvaesl hypertension (20 sources)Essential (primary) hypertension; Translations: [Essential hypertension]Onset: 382791-40-5287RxhzrqvTmptblivhoi of prostate (1 source)Benign prostatic hyperplasia without lower urinary tract symptoms; Translations: [BENIGN PROSTATIC HYPRPLASIA WO LUTS]Onset: 81-65-1318Wxnrvut Hypertension with complications and secondary hypertension (2 sources)Hypertensive heart disease with heart failure; Translations: [Hypertensive heart disease with heartfailure]Onset: 44-33-3640Ghbhbcf Osteoarthritis (9 sources)Unspecified osteoarthritis, unspecified site; Translations: [Osteoarthritis of joint of right shoulder region]Onset: ChronicOther diseases of veins and lymphatics (1 source)Lymphedema, not elsewhere classified; Translations: [I89.0 - Lymphedema, not elsewhere classified]Onset: 75-67-7048CbvtszbLyvox nervous system disorders (1 source)Other chronic pain; Translations: [Other chronic pain]Onset: 41-58-5443HmrbktsSmbba non-traumatic joint disorders (2 sources)Pain in right knee; Translations: [Pain in joint, lower leg] 37-65-5767CoxxlwkfFwotx non-traumatic joint disorders (2 sources)Ankle pain; Translations: [Pain in right ankle and joints of right foot]95-99-7735BvwmfzxcXuljk non-traumatic joint disorders (2 sources)Disorder of shoulder; Translations: [Other specified joint disorders, right shoulder]89-81-7356GsrmgdzmNybes nutritional; endocrine; and metabolic disorders (1 source)Obesity, unspecified; Translations: [OBESITY UNSPECIFIED]Onset: 78-42-7513DfmcysvYcsns nutritional; endocrine; and metabolic disorders (3 sources)Morbid (severe) obesity due to excess calories; Translations: [MORBID SEVERE OBES D/T EXCESS NAHUN]Onset: 82-44-6644CvnljgaCkvur nutritional; endocrine; and metabolic disorders (1 source)Body mass index (BMI) 60.0-69.9, adult; Translations: [BODY MASS INDEX BMI 60.0-69.9 ADULT]Onset: 99-61-9094UqaplyzDjzoh nutritional; endocrine; and metabolic disorders (17 sources)Morbid obesity; Translations: [Morbid (severe) obesity due to excess calories]Onset: 853565-48-7588NrxeqmkLwoqn nutritional; endocrine; and metabolic disorders (1 source)Severe obesity; Translations: [Morbid (severe) obesity due to excess calories]26-09-5477ZoopeamKvthk upper respiratory disease (3 sources)Allergic rhinitis; Translations: [Other allergic rhinitis]06-05-2024 ChronicUnclassified (1 source)E11.9 - Type 2 diabetes mellitus without complications; Translations: [E11.9 - Type 2 diabetes mellitus without complications]Onset: 07-13-2021 Unclassified (1 source)bloating and swelling belly on downOnset: 01-02-2024 Past or Other Problems Problem ClassificationProblemDateDocumented DateEpisodic/ChronicE Codes: Unspecified (1 source)Blood alcohol level of 200-239 mg/100 ml; Translations: [BLOOD ALCOHOL LVL 200-239 MG/100 ML]Onset: 96-70-3642VplycxkbBeheljkrzgiak and screening for infectious disease (5 sources)Patient encounter status; Translations: [Encounter for immunization] Onset: 981883-02-2164UvacqcmkIkvz disorders (15 sources)Mood disordersOnset: 02-21-2024 Resolved: Open wounds of extremities (2 sources)Unspecified open wound, left lower leg, initial encounter; Translations: [Unspecified open wound, left lower leg, subsequent encounter] Onset: 13-01-6077EldvebboEcyzs aftercare (1 source)Other terminal worker (current) drug therapy; Translations: [OTH DETENTION CURRENT DRUG THERAPY]Onset: 46-95-8308LavrjyjnCtulw aftercare (1 source)residential (current) use of anticoagulants; Translations: [DETENTION CURRNT USE ANTICOAGULANTS]Onset: 65-51-2739XpunfyywSpzxm connective tissue disease (15 sources)Right rotator cuff syndrome; Translations: [Unspecified rotator cuff tear or rupture of right shoulder, not specified as traumatic]Onset: 03-10-2023 77-23-7343HeqwndmkIxmkp diseases of kidney and ureters (1 source)Disorder of kidney and ureter, unspecified; Translations: [DISORDER KIDNEY AND URETER UNS]Onset: 60-74-4253JnuvamibLjvjb injuries and conditions due to external causes (4 sources)Encounter for examination and observation following transport accident; Translations: [ENC EXAM ANDOBSERV FLW TRANSPORT ACC]Onset: 11-25-2019 EpisodicOther non-traumatic joint disorders (3 sources)Pain in right shoulder; Translations: [Pain in joint, shoulder region]Onset: 931391-97-2302NpgzbmjiLgxeg non-traumatic joint disorders (1 source)Chronic pain of right upper limb; Translations: [Pain in right shoulder]58-32-0627AdpttqxxTwyxa screening for suspected conditions (not mental disorders or infectious disease) (3 sources)Encounter for screening for malignant neoplasm of colon; Translations: [Encounter for screening formalignant neoplasm of prostate]Onset: 78-03-5990CclsnqgdIzejb skin disorders (1 source)Other specified disorders of pigmentation; Translations: [L81.8 - Other specified disorders of pigmentation]Onset: 05-25-2789MfrnljeaHhudrnpdt heart disease (1 source)Personal history of pulmonary embolism; Translations: [PERSONAL HISTORY PULMONARY EMBOLISM]Onset: 14-99-5832XfrremmqCpcwzcnkogq; intervertebral disc disorders; other back problems (4 sources)Low back pain; Translations: [LOW BACK PAIN]Onset: 73-27-0838Dcmorwfg Varicose veins of lower extremity (1 source)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; Translations: [I83.899 - 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]Onset: 29-09-0220Ohldwwhj Results Test NameValueInterpretationReference BgiztPsexybhc59tz 45-05-097447Wjsifbup by: JAYA BARBER on: 01/21/2025 02:02 PM Modules accepted: OrdersNormalUniversity of Texas Children'S HospitalOffice Visiton 91-09-4172Evrxob-up [id number] Cristobal Garcia 1965 M Date Provider Department Center 01/21/2025 [id number], AD[facility] Abdiel Hos Family History Problem Relation Age of Onset Coronary artery disease Mother Diabetes Father Family Status - Relation Status Age at Mother Father Level of Service:38734 [place] OFFICE/OUTPATIENT ESTABLISHED MOD [facility]COMPREHENSIVE METABOL[facility] PANELon 09-03-2024 Albumin [Mass/Vol]4.1 g/dLNormal3.2-5.3Pro[facility] Ross[facility] HospitalComment on above:Performed By: #### TEMITOPE, 49096-3 #### [facility] ([id number]) [address], [address] [place], [place] [address]EVQ [Catalytic activity/Vol]126 U/CIjkcxb90-948LtfXkqftb [facility] HospitalComment on above:Performed By: #### TEMITOPE, 96660-8 #### [facility] ([id number]) [address], [address] [place], [place] [address]HPH [Catalytic activity/Vol]17 U/LNormal0-40Pro[facility] Ross[facility] HospitalComment on above:Performed By: #### TEMITOPE, 48365-3 #### [facility] ([id number]) [address], [address] [place], [place] [address]Oebpi gap [Moles/Vol]9 mmol/LNormal5-15ProOhio [facility] Hospitalca [facility] Comment on above:Performed By: #### TEMITOPE, 10064-8 #### [facility] ([id number]) [address], [address] [place], [place] [address]NAU [Catalytic activity/Vol]15 U/LNormal0-41Pro[facility] Mcmanus HospitalComment on above:Performed By: #### TEMITOPE, 83416-9 #### [facility] ([id number]) [address], [address] [place], [place] [address]Noyepmjdd [Mass/Vol]0.6 mg/dLNormal0.3-1.2ProMedica Ross[facility] HospitalComment on above:Performed By: #### TEMITOPE, 52782-6 #### [facility] ([id number]) [address] [address] [place], [place] [address]Jbtlweq [Mass/Vol]9.4 mg/dLNormal8.5-10.5PSumma Health Wadsworth - Rittman Medical CenterComment on above:Performed By: #### TEMITOPE, 32633-3 #### [facility] ([id number]) [address], [address] [place], [place] [address]Ktuvmpvi [Moles/Vol]101 mmol/FFekmks10-315IiwQyrslv [place] HospitalComment on above:Performed By: #### TEMITOPE, 18320-7 #### [facility] ([id number]) [address], [address] [place], [place] [address]KW2 [Moles/Vol]29 mmol/EDtaqbt39-11BxyYjcuvySumma Health Wadsworth - [facility]itt[facility] Center Comment on above:Performed By: #### TEMITOPE, 34141-3 #### [facility] ([id number]) [address], [address] [place], [place] [address]Cctqjwqufe [Mass/Vol]1.11 mg/dLNormal0.60-1.30ProMiddletown HospitalComment on above:Result Comment: METHOD TRACEABLE TO IDMS STANDARD Performed By: #### TEMITOPE, 05316-6 #### [facility] ([id number]) [address] [address] [place], [place] [address]JAN/1.73 sq M.predicted among non-blacks MDRD (S/P/Bld) [Vol rate/Area]76 mL/min/{1.73_m2}Normal>59ProMiddletown HospitalComment on above: Result Comment: Reported eGFR is based on the CKD-EPI 2020 equation that does not use a race coefficient.Performed By: #### TEMITOPE, 67418-5 #### [facility] ([id number]) [address], [address] [place], [place] [address]Tkbqjpf [Mass/Vol]155 mg/cEMghg09-19EykWdxkoiSt. Vincent Hospital Comment on above:Performed By: #### TEMITOPE, 77527-9 #### [facility] ([id number]) [address], [address] [place], [place] [address]Ebsqmpmcl [Moles/Vol]4.9 mmol/LNormal3.5-5.0ProMiddletown HospitalComment on above:Performed By: #### TEMITOPE, 81147-0 #### [facility] ([id number]) [address], [address] [place], [place] [address]Bkjvczl [Mass/Vol]7.3 g/dLNormal6.0-8.0ProM[facility]letown Hospital Comment on above:Performed By: #### TEMITOPE, 67831-9 #### [facility] ([id number]) [address], [address] [place], [place] [address]Lhsnln [Moles/Vol]139 mmol/GMcuvnh023-844OncSrgopw [place] HospitalComment on above:Performed By: #### TEMITOPE, 03914-5 #### [facility] ([id number]) [address], [address] [place], [place] [address]Edgl nitrogen [Mass/Vol]26 mg/dLHigh5-23ProMiddletown HospitalComment on above:Performed By: #### TEMITOPE, 17901-6 #### [facility] ([id number]) [address], [address] [place], [place] [address]Ukvamphmebpod metabolic panelon 01-63-7394Jrrumej [Mass/Vol]4.1 g/dL3.2 - 5.3 g/dLProMedica Health SystemALP [Catalytic activity/Vol]126 U/L39 - 130 U/LProMedica [facility] SystemALT No additional P-5'-P [Catalytic activity/Vol] 17 U/L0 - 40 U/LProMedica Health SystemAnion gap [Moles/Vol]9 mmol/L5 - 15 mmol/LProMedica Health SystemAST [Catalytic activity/Vol]15 U/L0 - 41 U/L [facility] SystemBilirubin [Mass/Vol]0.6 mg/dL0.3 - 1.2 mg/dLKettering Memorial HospitalCalcium [Mass/Vol]9.4 mg/dL8.5 - 10.5 mg/dLKettering Memorial Hospital Chloride [Moles/Vol]101 mmol/L98 - 109 mmol/[facility] SystemCO2 [Moles/Vol]29 mmol/L22 - 32 mmol/[facility] HospitalCreatinine [Mass/Vol] 1.11 mg/dL0.60 - 1.30 mg/dLKettering Memorial HospitalComment on above:METHOD TRACEABLE TO IDMD STANDARDeGFR (CKD-EPI)non-race xffvwnxyx58- [facility] HospitalComment on above: Reported eGFR is based on the CKD-EPI 2020 equation that does not use a race coefficient. Glucose [Mass/Vol]155 mg/sPQdju24 - 99 mg/dLKettering Memorial Hospital Interpretation and review of laboratory resultsAbnoFirstHealth Potassium [Moles/Vol]4.9 mmol/L3.5 - 5.0 mmol/[facility] HospitalProtein [Mass/Vol]7.3 g/dL6.0 - 8.0 g/dLWake Forest Baptist Health Davie Hospitalodium [Moles/Vol]139 mmol/L134 - 146 mmol/[facility] HospitalUrea nitrogen [Mass/Vol]26 mg/dL High5 - 23 mg/dLDepartment of Veterans Affairs Medical Center-PhiladelphiaHGB A1C (GLYCO-HGB)on 64-92-6602Aupwmnh [Mass/Vol]151 mg/dLNoCleveland Clinic Children's Hospital for RehabilitationComment on above:Performed By: #### [facility], 26009-5 #### [facility] ([id number]) [address] [place] [address], [address] [place], [place] [address]BkZ1q (Bld) [Mass fraction]6.9 %High4.4-5.6St. Vincent HospitalComment on above:Result Comment: NOTE ADA Guidelines Result HgbA1c Normal : less than 5.7 % Prediabetes : 5.7 % to 6.4 % Diabetes : > 6.4 % Use with caution in patients with abnormal hemoglobin variants as the half-life of red blood cells and in vivo glycation rates are affected.Performed By: #### TEMITOPE, 60077-6 #### [facility] ([id number]) [address], [address] [place], [place] [address]Xhtfvlmczy A1con 74-66-7725Oudtrcq glucose Estimated from glycated hemoglobin (Bld) [Mass/Vol]151 mg/dLKettering Memorial HospitalHbA1c (Bld) [Mass fraction]6.9 %High4.4 - 5.6 %K[facility] Memorial HospitalComment on above:NOTE ADA Guidelines Result HgbA1c Normal : less than 5.7 % Prediabetes : 5.7 % to 6.4 % Diabetes : > 6.4 % Use with caution in patients with abnormal hemoglobin variants as the half-life of red blood cells and in vivo glycation rates are affected. Interpretation and review of laboratory resultsAbnormalJefferson Abington HospitalCOMPREHENSIVE METABOLIC PANELon 36-62-7282Gbkcoes [Mass/Vol]3.6 g/dLNormal3.2-5.3Pro[facility]ica [facility] Cleveland Va Medical CenterComment on above: Performed By: #### TEMITOPE, HA1C #### [facility] ([id number]) [address], [address] [place], [place] [address]RXF [Catalytic activity/Vol]117 U/ODwconf63-909FbaNopeti [place]edo HospitalComment on above:Performed By: #### TEMITOPE, HA1C #### [facility] ([id number]) [address], [address] [place], [place] [address]EZO [Catalytic activity/Vol]16 U/LNormal0-40ProMiddletown HospitalComment on above:Performed By: #### TEMITOPE, HA1C #### [facility] ([id number]) [address], [address] [place], [place] [address]Pmzhu gap [Moles/Vol]7 mmol/LNormal5-15ProHighland District Hospital Hospital Comment on above:Performed By: #### TEMITOPE, HA1C #### [facility] ([id number]) [address], [address] [place], [place] [address]GAR [Catalytic activity/Vol]14 U/LNormal0-41ProChilton Medical Center Mcmanus HospitalComment on above:Performed By: #### TEMITOPE, HA1C #### [facility] ([id number]) [address], [address] [place], [place] [address]Fksuohigw [Mass/Vol]0.6 mg/dLNormal0.3-1.2ProMedAdena Pike Medical Center HospitalComment on above:Performed By: #### TEMITOPE, HA1C #### [facility] ([id number]) [address], [address] [place], [place] [address]Gudkshf [Mass/Vol]8.8 mg/dLNormal8.5-10.5ProMedAdena Pike Medical Center HospitalComment on above:Performed By: #### TEMITOPE, HA1C #### [facility] ([id number]) [address], [address] [place], [place] [address]Ayibluxh [Moles/Vol]107 mmol/AMvdtvi33-985FfhWtxtwe [place] HospitalComment on above:Performed By: #### TEMITOPE, HA1C #### [facility] ([id number]) [address], [address] [place], [place] [address]AO3 [Moles/Vol]28 mmol/TDlninc58-09LnlIbvsiz [facility] Comment on above:Performed By: #### CMP, HA1C #### [facility] ([id number]) [address], [address] [place], [place] [address]Mjdgvjcbjy [Mass/Vol]1.11 mg/dLNormal0.60-1.30ProOhio Valley Hospitalca Mcmanus HospitalComment on above:Result Comment: METHOD TRACEABLE TO IDMS STANDARD Performed By: #### CMP, HA1C #### [facility] ([id number]) [address], [address] [place], [place] [address]YNF/1.73 sq M.predicted among non-blacks MDRD (S/P/Bld) [Vol rate/Area]76 mL/min/{1.73_m2}Normal>59ProMiddletown HospitalComment on above: Result Comment: Reported eGFR is based on the CKD-EPI 2020 equation that does not use a race coefficient.Performed By: #### TEMITOPE, WILLY #### [facility] ([id number]) [address], [address] [place], [place] [address]Clrqwrn [Mass/Vol]156 mg/cYAxmg28-33FdyXlhczjSt. Vincent Hospital Comment on above:Performed By: #### WILLY LINN #### [facility] ([id number]) [address], [address] [place], [place] [address]Tdrtxuyfw [Moles/Vol]4.7 mmol/LNormal3.5-5.0ProMiddletown HospitalComment on above:Performed By: #### TEMITOPE, HAMaria De Jesus #### [facility] ([id number]) [address], [address] [place], [place] [address]Ulegwrf [Mass/Vol]6.8 g/dLNormal6.0-8.0[facility] Comment on above:Performed By: #### TEMITOPE, HA1C #### [facility] ([id number]) [address], [address] [place], [place] [address]Bsvjlg [Moles/Vol]142 mmol/ZHhpnxt228-808ZgvNnpari [place] HospitalComment on above:Performed By: #### TEMITOPE, HA1C #### [facility] ([id number]) [address], [address] [place], [place] [address]Lgex nitrogen [Mass/Vol]24 mg/dLHigh5-23ProHighland District Hospital HospitalComment on above:Performed By: #### TEMITOPE, HA1C #### [facility] ([id number]) [address] [facility], [address] [place], [place] [address]Ebxjbebsriqrs metabolic panelon 54-11-3963Funeuev [Mass/Vol]3.6 g/dL3.2 - 5.3 g/dLProChilton Medical Center Health SystemALP [Catalytic activity/Vol]117 U/L39 - 130 U/LProMedica Health SystemALT No additional P-5'-P [Catalytic activity/Vol] 16 U/L0 - 40 U/LProMedica Health SystemAnion gap [Moles/Vol]7 mmol/L5 - 15 mmol/LProMedica Health SystemAST [Catalytic activity/Vol]14 U/L0 - 41 U/L ProMEssentia Health SystemBilirubin [Mass/Vol]0.6 mg/dL0.3 - 1.2 mg/dLSalem Regional Medical Center SystemCalcium [Mass/Vol]8.8 mg/dL8.5 - 10.5 mg/dLSalem Regional Medical Center System Chloride [Moles/Vol]107 mmol/L98 - 109 mmol/LPrMosaic Life Care at St. Josephica Health SystemCO2 [Moles/Vol]28 mmol/L22 - 32 mmol/LPrMosaic Life Care at St. Josephica Health SystemCreatinine [Mass/Vol] 1.11 mg/dL0.60 - 1.30 mg/dLSalem Regional Medical Center SystemComment on above:METHOD TRACEABLE TO [facility] STANDARDeGFR (CKD-EPI)non-race dimsljgrq57- [facility] HospitalComment on above: Reported eGFR is based on the CKD-EPI 2020 equation that does not use a race coefficient. Glucose [Mass/Vol]156 mg/hEAvrh62 - 99 mg/dLSalem Regional Medical Center System Interpretation and review of laboratory resultsAbnormalSalem Regional Medical Center System Potassium [Moles/Vol]4.7 mmol/L3.5 - 5.0 mmol/LProMedica Health SystemProtein [Mass/Vol]6.8 g/dL6.0 - 8.0 g/dLSalem Regional Medical Center SystemSodium [Moles/Vol]142 mmol/L134 - 146 mmol/LPrMosaic Life Care at St. Josephica Health SystemUrea nitrogen [Mass/Vol]24 mg/dL High5 - 23 mg/dLSalem Regional Medical Center SystemProMagruder Hospital SystemHGB A1C (GLYCO-HGB)on 20-09-5591Livsscc [Mass/Vol]143 mg/dLNormalProMiddletown HospitalComment on above:Performed By: #### TEMITOPE, 23347-9 #### [facility] ([id number]) [address] [place] [address], [address] [place], [place] [address]KrK5m (Bld) [Mass fraction]6.6 %High4.4-5.6ProMiddletown HospitalComment on above:Result Comment: NOTE ADA Guidelines Result HgbA1c Normal : less than 5.7 % Prediabetes : 5.7 % to 6.4 % Diabetes : > 6.4 % Use with caution in patients with abnormal hemoglobin variants as the half-life of red blood cells and in vivo glycation rates are affected.Performed By: #### TEMITOPE, 15526-4 #### [facility] ([id number]) [address] [place] [address], [address] [place], [place] [address]Bkvgqltp specific Ag [Mass/Vol]on 98-54-3457FhtUrxqbx Health SystemPSA SCREEN0.27 ng/mLNormal0.00-4.00St. Vincent HospitalComment on above:Result Comment: The method used for this test is Timmy Radford DXI chemiluminescent immunoassay. Values obtained by different assay methods cannot be used interchangeably.Performed By: #### TEMITOPE, 59443-1 #### [facility] ([id number]) [address] [place] [address], [address] [place], [place] [address]Lfeyczpdd specific antigen screenon 75-77-1770Hlcanujl specific Ag [Mass/Vol]0.27 ng/mL0.00 - 4.00 ng/mLKettering Memorial HospitalComment on above: The method used for this test is Timmy Angeles DXI chemiluminescent immunoassay. Values obtained by different assay methods cannot be used interchangeably. 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 Pt given injection Right Shoulder SA space Procedure, treatment alternatives, risks and benefits explained, specific risks discussed. Consent was given by the patient. [facility] HospitalMICROALBUMIN - ALBUMIN:CREATININE URINE RATIOon 53-66-0116AOR/CREAT RATIO16.6 mg/g creatNormal0.0-30.0[facility] Comment on above:Performed By: #### JACKI #### [facility] ([id number]) [address], [address] [place], [place] [address]Jonvchp DL <= 20 mg/L (U) [Mass/Vol]2.2 mg/dLHigh0.0-1.9 [facility] Va Medical CenterComment on above:Performed By: #### JACKI #### [facility] ([id number]) [address], [address] [place], [place] [address]LWIGA VEWOG614.81 mg/dLNormalProHighland District Hospital HospitalComment on above:Performed By: #### JACKI #### [facility] ([id number]) [address], [address] [place], [place] [address]JUN AND AUTO DIFFon 65-66-7231TPHFPWNL BASOPHIL0.0 X10E9/LNormal 0.0-0.2ProMedica Rossiter HospitalComment on above:Performed By: #### TEMITOPE COLES, 14501-0, , HA1C #### [facility] ([id number]) [address], [address] [place], [place] [address]FMEAFYKW NEUTROPHIL5.2 X10E9/LNormal1.5-6.6ProOhio Valley Hospitalca Rossiter HospitalComment on above:Performed By: #### TEMITOPE COLES, 59938-8, , HA1C #### [facility] ([id number]) [address], [address] [place], [place] [address]Tstrkmiww/100 WBC (Bld)0.5 %NormalSt. Vincent Hospital Comment on above:Performed By: #### CBCA CMP, , , HA1C #### [facility] ([id number]) [address], [address] [place], [place] [address]Vwxyjbtfhld (Bld) [#/Vol]0.2 10*3/uLNormal0.0-0.4ProHighland District Hospital HospitalComment on above:Performed By: #### CBCA, CMP, , , HA1C #### [facility] ([id number]) [address], [address] [place], [place] [address]Imomjybwegv/100 WBC (Bld)2.6 %NormalSt. Vincent Hospital Comment on above:Performed By: #### CBCCuca CMP, , , HA1C #### [facility] ([id number]) [address], [address] [place], [place] [address]Qrohiusjexm distribution width (RBC) [Ratio]16.5 %High11.5-15.0 ProMmadison hospitala Rossiter HospitalComment on above:Performed By: #### CBCA, CMP, , , HA1C #### [facility] ([id number]) [address], [address] [place], [place] [address]Nuceuyjvqo (Bld) [Volume fraction]37.1 %Dfx08-35TxcWyeyok [place] HospitalComment on above:Performed By: #### CBCA, CMP, , , HA1C #### [facility] ([id number]) [address], [address] [place], [place] [address]Zcbmldvxxy (Bld) [Mass/Vol]11.7 g/dLLow13.0-17.0ProHighland District Hospital HospitalComment on above:Performed By: #### CBCA, CMP, , , HA1C #### [facility] ([id number]) [address], [address] [place], [place] [address]Kekdomlmcaf (Bld) [#/Vol]1.3 10*3/uLNormal1.0-3.5PSumma Health Wadsworth - Rittman Medical CenterComment on above:Performed By: #### CBCCuca, CMP, , , HA1C #### [facility] ([id number]) [address], [address] [place], [place] [address]Wkvxtqamjif/100 WBC (Bld)18.5 %NormalSt. Vincent Hospital Comment on above:Performed By: #### CBCCuca, TEMITOPE, , , HA1C #### [facility] ([id number]) [address], [address] [place], [place] [address]SNS (RBC) [Entitic mass]25.5 jvZwl62-43JshOacavlSt. Vincent Hospital Comment on above:Performed By: #### CBCTEMITOPE Thurman, , , HA1C #### [facility] ([id number]) [address], [address] [place], [place] [address]EGKF (RBC) [Mass/Vol]31.6 g/iAEua90-04BzoHaideoSt. Vincent Hospital Comment on above:Performed By: #### CBCA, CMP, , , HA1C #### [facility] ([id number]) [address], [address] [place], [place] [address]YOC (RBC) [Entitic vol]81 iKWizajs20-461PcaQwbtpoSt. Vincent HospitalComment on above:Performed By: #### CBCA, CMP, , , HA1C #### [facility] ([id number]) [address], [address] [place], [place] [address]Gnrievurl (Bld) [#/Vol]0.3 10*3/uLNormal0-0.9ProMiddletown HospitalComment on above:Performed By: #### CBCCuca, CMP, 59357-4, , HA1C #### [facility] ([id number]) [address], [address] [place], [place] [address]Zpamymfik/100 WBC (Bld)4.9 %NormalSt. Vincent Hospital Comment on above:Performed By: #### CBCA, CMP, 54819-6, , HA1C #### [facility] ([id number]) [address], [address] [place], [place] [address]Osqsdcnwzkt/100 WBC (Bld)73.5 %[facility] Comment on above:Performed By: #### CBCCuca, CMP, , , HA1C #### [facility] ([id number]) [address], [address] [place], [place] [address]Yvckajnw mean volume (Bld) [Entitic vol]7.9 fLNormal7-12 ProMWVUMedicine Barnesville HospitalComment on above:Performed By: #### CBCCuca, CMP, , , HA1C #### [facility] ([id number]) [address], [address] [place], [place] [address]Aexwqtcmv (Bld) [#/Vol]240 10*3/hIGpiwbe895-201WrzRsgays [place] HospitalComment on above:Performed By: #### CBCA, CMP, 42545-7, , HA1C #### [facility] ([id number]) [address], [address] [place], [place] [address]KMD COUNT4.61 X10E12/LNormal4.10-5.70[facility] Comment on above:Performed By: #### CBCA, CMP, , , HA1C #### [facility] ([id number]) [address], [address] [place], [place] [address]WED (Bld) [#/Vol]7.1 10*3/uLNormal4.0-11.0ProMedica Mcmanus HospitalComment on above:Performed By: #### TEMITOPE COLES, 87411-2, , HA1C #### [facility] ([id number]) [address], [address] [place], [place] [address]JKINGGFZNYYYK METABOLIC PANELon 69-97-1149Lvvlxwu [Mass/Vol]3.6 g/dLNormal3.2-5.3ProMedica Mcmanus HospitalComment on above:Performed By: #### TEMITOPE COLES, 19416-4, , HA1C #### [facility] ([id number]) [address], [address] [place], [place] [address]CLT [Catalytic activity/Vol]121 U/NXqpesj86-030PfuFnxvzu Mcmanus HospitalComment on above:Performed By: #### TEMITOPE COLES, 80666-3, , HA1C #### [facility] ([id number]) [address], [address] [place], [place] [address]SUO [Catalytic activity/Vol]26 U/LNormal0-40ProMedica Mcmanus HospitalComment on above:Performed By: #### TEMITOPE COLES, 60425-7, , HA1C #### [facility] ([id number]) [address], [address] [place], [place] [address]Emtrc gap [Moles/Vol]9 mmol/LNormal5-15[facility] Comment on above:Performed By: #### SANKET CMP, 50667-6, , HA1C #### [facility] ([id number]) [address], [address] [place], [place] [address]MEO [Catalytic activity/Vol]20 U/LNormal0-41ProMedica Mcman[facility] HospitalComment on above:Performed By: #### TEMITOPE COLES, 75379-9, , HA1C #### [facility] ([id number]) [address], [address] [place], [place] [address]Alpcudjmj [Mass/Vol]0.7 mg/dLNormal0.3-1.2ProMedAdena Pike Medical Center HospitalComment on above:Performed By: #### TEMITOPE COLES, , , HA1C #### [facility] ([id number]) [address], [address] [place], [place] [address]Vyfvakw [Mass/Vol]9.2 mg/dLNormal8.5-10.5PMetroHealth Main Campus Medical Center HospitalComment on above:Performed By: #### TEMITOPE COLES, , , HA1C #### [facility] ([id number]) [address], [address] [place], [place] [address]Aqpneosb [Moles/Vol]106 mmol/WChnmks37-597FckKymmcg [place] HospitalComment on above:Performed By: #### TEMITOPE COLES, , , HA1C #### [facility] ([id number]) [address], [address] [place], [place] [address]LA5 [Moles/Vol]28 mmol/ANvznvt35-75MmuNatgrk [facility] Comment on above:Performed By: #### TEMITOPE COELS, , , HA1C #### [facility] ([id number]) [address], [address] [place], [place] [address]Xlajenknba [Mass/Vol]1.19 mg/dLNormal0.60-1.30ProOhio Valley Hospitalca Rossiter HospitalComment on above:Result Comment: METHOD TRACEABLE TO IDMS STANDARD Performed By: #### TEMITOPE COLES, , , HA1C #### [facility] ([id number]) [address], [address] [place], [place] [address]YRA/1.73 sq M.predicted among non-blacks MDRD (S/P/Bld) [Vol rate/Area]70 mL/min/{1.73_m2}Normal>59ProMiddletown HospitalComment on above: Result Comment: Reported eGFR is based on the CKD-EPI 2020 equation that does not use a race coefficient.Performed By: #### TEMITOPE COLES, , , HA1C #### [facility] ([id number]) [address], [address] [place], [place] [address]Sehkxdq [Mass/Vol]130 mg/pKLief13-89RgbUoqzrkSt. [facility] Hospital Comment on above:Performed By: #### TEMITOPE COLES, , , HA1C #### [facility] ([id number]) [address], [address] [place], [place] [address]Igfpyowrd [Moles/Vol]4.8 mmol/LNormal3.5-5.0ProMiddletown HospitalComment on above:Performed By: #### TEMITOPE COLES, , , HA1C #### [facility] ([id number]) [address], [address] [place], [place] [address]Kkvlmrt [Mass/Vol]7.0 g/dLNormal6.0-8.0[facility] Comment on above:Performed By: #### TEMITOPE COLES, , , HA1C #### [facility] ([id number]) [address], [address] [place], [place] [address]Outbor [Moles/Vol]143 mmol/ZFflsaz375-905VqmMawudd [place] HospitalComment on above:Performed By: #### TEMITOPE COLES, , , HA1C #### [facility] ([id number]) [address], [address] [place], [place] [address]Oeto nitrogen [Mass/Vol]31 mg/dLHigh5-23ProMiddletown HospitalComment on above:Performed By: #### TEMITOPE COLES, 96984-4, 07733-5, HA1C #### [facility] ([id number]) [address] [facility] [facility] [address], [address] [place], [place] [address]HIM A1C (GLYCO-HGB)on 88-58-7199Zkxxxvb [Mass/Vol]157 mg/dL NormalProMiddletown HospitalComment on above:Performed By: #### TEMITOPE COLES, 74197-1, , YOSI1C #### [facility] ([id number]) [address] [facility], [address] [place], [place] [address]UkF4x (Bld) [Mass fraction]7.1 %High4.4-5.6ProMiddletown HospitalComment on above:Result Comment: NOTE ADA Guidelines Result HgbA1c Normal : less than 5.7 % Prediabetes : 5.7 % to 6.4 % Diabetes : > 6.4 % Use with caution in patients with abnormal hemoglobin variants as the half-life of red blood cells and in vivo glycation rates are affected.Performed By: #### TEMITOPE COLES, 52456-7, , HA1C #### [facility] ([id number]) [address], [address] [place], [place] [address]Cdssd 1996 panelon 91-53-6736Fpmrbggmcts [Mass/Vol]77 mg/dLLow 150-200ProMiddletown HospitalComment on above:Performed By: #### TEMITOPE COLES, 16666-3, , HA1C #### [facility] ([id number]) [address] [facility] [facility], [address] [place], [place] [address]Denswbccnbr in HDL [Mass/Vol]27 mg/dLLow>39ProHighland District Hospital HospitalComment on above:Result Comment: HDL <40 mg/dL - High Risk HDL > or = 40mg/dL- Desirable HDL >60 mg/dL - Negative Risk Performed By: ###Son COLES CMP, 38080-9, , HA1C #### [facility] ([id number]) [address], [address] [place], [place] [address]Vdmfegxfbxq in LDL [Mass/Vol]35 mg/dLNormal<130ProHighland District Hospital HospitalComment on above:Result Comment: LDL <100 mg/dL - Desirable LDL >160 mg/dL - High Risk Performed By: ###Son COLES CMP, 90894-0, , HA1C #### [facility] ([id number]) [address], [address] [place], [place] [address]Soddmwdfxyt in VLDL [Mass/Vol]15 mg/dLNormal0-30ProHighland District Hospital HospitalComment on above:Performed By: ###Son COLES CMP, 48575-8, , HA1C #### [facility] ([id number]) [address], [address] [place], [place] [address]EMOZFEULDWJ:HDL2.4Qeguag2.0-5.0ProHigh[facility] Hospital HospitalComment on above:Performed By: ###Son COLES CMP, 48498-9, , HA1C #### [facility] ([id number]) [address], [address] [place], [place] [address]Lxzvvrhvditi [Mass/Vol]75 mg/eJSgwyml15-526GkoXsjxse [facility]us HospitalComment on above:Performed By: #### TEMITOPE COLES, 26463-5, , HA1C #### [facility] ([id number]) [address], [address] [place] [address]OUZSJOGWLus 60-76-7375Viczirjqx [Mass/Vol]1.9 mg/dLNormal1.8-2.6 [facility] HospitalComment on above:Performed By: #### TEMITOPE COLES, 63110-9, , HA1C #### [facility] ([id number]) [address], [address] [place], [place] [address]JZBLRUCQGRTII METABOLIC PANELon 42-71-9079Kasecas [Mass/Vol]3.8 g/dLNormal3.2-5.3[facility] HospitalComment on above:Performed By: #### TEMITOPE, 33191-6 #### [facility] ([id number]) [address], [address] [place], [place] [address]RXJ [Catalytic activity/Vol]101 U/ZCdlasc35-720NfgRiclmy [facility] HospitalComment on above:Performed By: #### TEMITOPE, 70371-2 #### [facility] ([id number]) [address], [address] [place], [place] [address]ZCK [Catalytic activity/Vol]14 U/LNormal0-40[facility] HospitalComment on above:Performed By: #### TEMITOPE, 08817-1 #### [facility] ([id number]) [address], [address] [place], [place] [address]Eknbv gap [Moles/Vol]8 mmol/LNormal5-15[facility] Comment on above:Performed By: #### TEMITOPE, 20532-9 #### [facility] ([id number]) [address], [address] [place], [place] [address]UAZ [Catalytic activity/Vol]14 U/LNormal0-41Pro[facility] Hospitalca [facility]us HospitalComment on above:Performed By: #### TEMITOPE, 62793-4 #### [facility] ([id number]) [address], [address] [place], [place] [address]Gloemmjwk [Mass/Vol]0.6 mg/dLNormal0.3-1.2PMetroHealth [facility] HospitalComment on above:Performed By: #### TEMITOPE, 38663-1 #### [facility] ([id number]) [address], [address] [place], [place] [address]Tadzzqc [Mass/Vol]8.8 mg/dLNormal8.5-10.5PMetroHealth Main Campus [facility] Center HospitalComment on above:Performed By: #### TEMITOPE, 28017-4 #### [facility] ([id number]) [address], [address] [place], [place] [address]Hsernagr [Moles/Vol]100 mmol/QUpwgok34-522SorYatjei [place] HospitalComment on above:Performed By: #### TEMITOPE, 96680-8 #### [facility] ([id number]) [address], [address] [place], [place] [address]EU2 [Moles/Vol]31 mmol/FZezqvi61-44AbcBmpidc [facility] Comment on above:Performed By: #### TEMITOPE, 39622-0 #### [facility] ([id number]) [address], [address] [place], [place] [address]Yqigqxeqwv [Mass/Vol]1.29 mg/dLNormal0.60-1.30ProCh[facility] HospitalComment on above:Result Comment: METHOD TRACEABLE TO IDMS STANDARD Performed By: #### TEMITOPE, 41482-6 #### [facility] ([id number]) [address], [address] [place], [place] [address]IIA/1.73 sq M.predicted among non-blacks MDRD (S/P/Bld) [Vol rate/Area]64 mL/min/{1.73_m2}Normal>59ProMiddletown HospitalComment on above: Result Comment: Reported eGFR is based on the CKD-EPI 2020 equation that does not use a race coefficient.Performed By: #### TEMIT[place], 13125-8 #### [facility] ([id number]) [address], [address] [place], [place] [address]Kqlxeds [Mass/Vol]119 mg/eYPytd61-40DagKgiyltMiddletown Hospital Comment on above:Performed By: #### TEMITOPE, 21582-6 #### [facility] ([id number]) [address], [address] [place], [place] [address]Ztpuwfslb [Moles/Vol]4.4 mmol/LNormal3.5-5.0ProMiddletown HospitalComment on above:Performed By: #### TEMITOPE, 77337-4 #### [facility] ([id number]) [address], [address] [place], [place] [address]Gqwosyy [Mass/Vol]7.2 g/dLNormal6.0-8.0[facility] Comment on above:Performed By: #### TEMITOPE, 25669-7 #### [facility] ([id number]) [address], [address] [place], [place] [address]Ujmhdn [Moles/Vol]139 mmol/EOuqydb902-142ExqCsmjok Toledo HospitalComment on above:Performed By: #### TEMITOPE, 74421-7 #### [facility] ([id number]) [address], [address] [place], [place] [address]Bkye nitrogen [Mass/Vol]21 mg/dLNormal5-23ProMiddletown HospitalComment on above:Performed By: #### TEMITOPE, 78854-7 #### [facility] ([id number]) [address], [address] [place], [place] [address]Spfosuttpeszo metabolic panelon 20-71-7742Bclxcbd [Mass/Vol]3.8 g/dL3.2 - 5.3 g/dLProMagruder Hospital SystemALP [Catalytic activity/Vol]101 U/L39 - 130 U/[facility] SystemALT No additional P-5'-P [Catalytic activity/Vol] 14 U/L0 - 40 U/[facility] SystemAnion gap [Moles/Vol]8 mmol/L5 - 15 mmol/LPrMemorial Hospital Central Health SystemAST [Catalytic activity/Vol]14 U/L0 - 41 U/L [facility] HospitalBilirubin [Mass/Vol]0.6 mg/dL0.3 - 1.2 mg/dLSalem Regional Medical Center SystemCalcium [Mass/Vol]8.8 mg/dL8.5 - 10.5 mg/dLK[facility]tering [facility] Hospital Chloride [Moles/Vol]100 mmol/L98 - 109 mmol/[facility] SystemCO2 [Moles/Vol]31 mmol/L22 - 32 mmol/[facility] SystemCreatinine [Mass/Vol] 1.29 mg/dL0.60 - 1.30 mg/dLKettering Memorial HospitalComment on above:METHOD TRACEABLE TO [facility] STANDARDeGFR (CKD-EPI)non-race esqyssguo84- Stafford HospitalComment on above: Reported eGFR is based on the CKD-EPI 2020 equation that does not use a race coefficient. Glucose [Mass/Vol]119 mg/tSUozg45 - 99 mg/dLKettering Memorial HospitalPotassium [Moles/Vol]4.4 mmol/L3.5 - 5.0 mmol/[facility] SystemProtein [Mass/Vol] 7.2 g/dL6.0 - 8.0 g/dLWake Forest Baptist Health Davie Hospitalodium [Moles/Vol]139 mmol/L134 - 146 mmol/[facility] SystemUrea nitrogen [Mass/Vol]21 mg/dL5 - 23 mg/dL [facility] HospitalHGB A1C (GLYCO-HGB)on 11-16-2413Rtetaoi [Mass/Vol]134 mg/dLNoCleveland Clinic Children's Hospital for RehabilitationComment on above:Performed By: #### [facility], 58420-6 #### [facility] ([id number]) [address], [address] [place], [place] [address]IyA5u (Bld) [Mass fraction]6.3 %High4.4-5.6St. Vincent HospitalComment on above:Result Comment: NOTE ADA Guidelines Result HgbA1c Normal : less than 5.7 % Prediabetes : 5.7 % to 6.4 % Diabetes : > 6.4 % Use with caution in patients with abnormal hemoglobin variants as the half-life of red blood cells and in vivo glycation rates are affected.Performed By: #### [facility], 98401-1 #### [facility] ([id number]) [facility], [address] [place], [place] [address]Whlnj 1995 panelon [id number] [Mass/Vol]145 mg/dLLow 150 - 200 mg/dLKettering Memorial HospitalCholesterol in HDL [Mass/Vol]30 mg/dLLow39 - PINF mg/dLKettering Memorial HospitalComment on above: HDL <40 mg/dL - High Risk HDL > or = 40mg/dL- Desirable HDL >60 mg/dL - Negative Risk Cholesterol in LDL [Mass/Vol]90 mg/dLNINF - 130 mg/dLK[facility]tering Memorial Hospital Comment on above: LDL <100 mg/dL - Desirable LDL >160 mg/dL - High Risk Cholesterol in VLDL [Mass/Vol]25 mg/dL0 - 30 mg/dLK[facility]tering Memorial Hospital Cholesterol.total/Cholesterol in HDL [Mass ratio]4.8 {ratio}1.0 - 5.0[facility] Memorial HospitalTriglyceride [Mass/Vol]123 mg/dL27 - 150 mg/dLKettering Memorial HospitalCholesterol [Mass/Vol]145 mg/vMUwe117-077HotUauocn Rossiter HospitalComment on above:Performed By: #### TEMITOPE, 68002-4 #### [facility] ([id number]) [address] [place], [place] [address]Omvegtkmlfz in HDL [Mass/Vol]30 mg/dLLow>39ProMedica Mcmanus HospitalComment on above:Result Comment: HDL <40 mg/dL - High Risk HDL > or = 40mg/dL- Desirable HDL >60 mg/dL - Negative Risk Performed By: #### TEMITOPE, 55155-7 #### [facility] ([id number]) [address] [place], [place] [address]Csymtjdikeb in LDL [Mass/Vol]90 mg/dLNormal<130ProHighland District Hospital HospitalComment on above:Result Comment: LDL <100 mg/dL - Desirable LDL >160 mg/dL - High Risk Performed By: #### TEMITOPE, 94245-8 #### [facility] ([id number]) [address] [place], [place] [address]Wwnjkikckxq in VLDL [Mass/Vol]25 mg/dLNormal0-30ProHighland District Hospital HospitalComment on above:Performed By: #### TEMIT[place], 61702-9 #### [facility] ([id number]) [address] [place], [place] [address]KYTUEIWZEEL:HDL4.6Nlovfd5.0-5.0ProMediSelect Medical Specialty Hospital - Cleveland-Fairhill HospitalComment on above:Performed By: #### TEMITOPE, 86061-6 #### [facility] ([id number]) [address], [address] [place], [place] [address]Fcvxcriefftf [Mass/Vol]123 mg/aONrceon60-714ZbcRxqzmxSt. Vincent HospitalComment on above:Performed By: #### CMP, 53201-9 #### [facility] ([id number]) [address], [address] [place], [place] [address]Zg Panel Informationon [id number] and review of laboratory resultsAbnoKindred Hospital PhiladelphiaCB AUTO DIFFon [id number] #0.1 103/ulNormal0.0-0.1The [facility] [place] [facility] CenterComment on above:Performed By: #### TSH, LIPID, CMP, PSAD, T4 #### [facility] [address] [place] [address] Wanda KarenBasophils/100 WBC (Bld)0.8 %Normal0.2-2.0The [facility] Comment on above:Performed By: #### TSH, LIPID, CMP, PSAD, T4 #### [facility] [address] [place] [address] Wanda KarenEO #0.3 103/ulNormal0.0-0.7The [facility] [place] [facility] CenterComment on above: Performed By: #### TSH, LIPID, CMP, PSAD, T4 #### [facility] [address] [id number] Wanda KarenEosinophils/100 WBC (Bld)3.5 %Normal0.9-7.0The [facility] Comment on above:Performed By: #### TSH, LIPID, CMP, PSAD, T4 #### [facility] [address] [id number] Wanda KarenErythrocyte distribution width (RBC) [Ratio]15.2 %Critically high 11.0-15.0The [facility] [place] [facility] CenterComment on above:Performed By: #### TSH, LIPID, CMP, PSAD, T4 #### [facility] [address] [place] [address] Wanda KarenHematocrit (Bld) [Volume fraction]42.3 %Lootru00.0-54.0The [facility] [place] [facility] CenterComment on above:Performed By: #### TSH, LIPID, CMP, PSAD, T4 #### [facility] [address] [address] Wanda KarenHemoglobin (Bld) [Mass/Vol]13.3 g/dLCritically low14.0-18.0The [facility] [place] [facility] CenterComment on above:Performed By: #### TSH, LIPID, CMP, PSAD, T4 #### [facility] [address] [place] [address] Wanda KarenIG #0.04 10e3/ulCritically high0.00-0.03The [facility] Medical Centerment on above:Performed By: #### TSH, LIPID, CMP, PSAD, T4 #### [facility] [address] [place] [address] Wanda KarenIG %0.4 %Normal0.0-0.5The [facility] Medical Centerment on above: Performed By: #### TSH, LIPID, CMP, PSAD, T4 #### [facility] [address] [place] [address] Wanda KarenLYMPH #2.8 103/ulNormal1.2-3.8The [facility] Medical Centerment on above: Performed By: #### TSH, LIPID, CMP, PSAD, T4 #### [facility] [address] [place] [address] Wanda KarenLymphocytes/100 WBC (Bld)30.2 %Wqkqde68.5-60.0The [facility] Comment on above:Performed By: #### TSH, LIPID, CMP, PSAD, T4 #### [facility] [address] [place] [address] Wanda KarenMANUAL DIFF REQNONormalThe [facility] CenterComment on above: Performed By: #### TSH, LIPID, CMP, PSAD, T4 #### [facility] [address] [place] [address] Wanda KarenMCH (RBC) [Entitic mass]26.4 goEwmlxt23.9-34.0The [facility] Comment on above:Performed By: #### TSH, LIPID, CMP, PSAD, T4 #### [facility] [address] [place] [address] Wanda ConradHC (RBC) [Mass/Vol]31.4 g/vJIwpzob48.9-35.2The [facility] Comment on above:Performed By: #### TSH, LIPID, CMP, PSAD, T4 #### [facility] [address] [place] [address] Wanda ConradAMG SPECIALTY [facility] (RBC) [Entitic vol]83.9 hZLbtpfv16.0-94.0The [facility] Comment on above:Performed By: #### TSH, LIPID, CMP, PSAD, T4 #### [facility] [address] [place] [address] Wanda KarenMONO #0.6 103/ulNormal0.3-0.8The [facility] CenterComment on above: Performed By: #### TSH, LIPID, CMP, PSAD, T4 #### [facility] [address] [place] [address] Wanda KarenMonocytes/100 WBC (Bld)6.2 %Normal1.7-12.0The [facility] Comment on above:Performed By: #### TSH, LIPID, CMP, PSAD, T4 #### [facility] [address] [place] [address] Wanda AntoineenNEUT #5.4 103/ulNormal1.4-6.5The [facility] CenterComment on above: Performed By: #### TSH, LIPID, CMP, PSAD, T4 #### [facility] [address] [place] [address] Wanda KarenNeutrophils/100 WBC (Bld)58.9 %Cvigpz52.0-75.0The [facility] Comment on above:Performed By: #### TSH, LIPID, CMP, PSAD, T4 #### [facility] [address] [place] [address] Wanda KarenPlatelet mean volume (Bld) [Entitic vol]10.5 fLNormal9.5-13.5ThMarietta Osteopathic ClinicComment on above:Performed By: #### TSH, LIPID, CMP, PSAD, T4 #### [facility] [address] [place] [address] Wanda AntoineLovalYOV706 103/wxKxbvog819-026QxmDelaware County HospitalComment on above: Performed By: #### TSH, LIPID, CMP, PSAD, T4 #### [facility] [address] [place] [address] Wanda KarenRBC5.04 106/ulNormal4.70-6.10The [facility] CenterComment on above: Performed By: #### TSH, LIPID, CMP, PSAD, T4 #### [facility] [address] [place] [address] Wanda KarenWBC9.1 103/ulNormal4.0-11.0Del[facility] County HospitalComment on above: Performed By: #### TSH, LIPID, CMP, PSAD, T4 #### [facility] [address] [place] [address] Wanda KarenLIPID PROFILEon [id number]-HDL RATIO NORMSHolzer Medical Center – JacksonComment on above:Result Comment: 3.3 - 4.4 LOW RISK 4.4 - 7.1 AVERAGE RISK 7.1 - 11.0 MODERATE RISK >11.0 HIGH RISKPerformed By: #### TSH, LIPID, CMP, PSAD, T4 #### [facility] [address] [place] [address] Wanda KarenCholesterol [Mass/Vol]137 mg/dLNormal<=200[facility] Comment on above:Performed By: #### TSH, LIPID, CMP, PSAD, T4 #### [facility] [address] [place] [address] Wanda KarenCholesterol in HDL [Mass/Vol]31 mg/dLKettering Health Washington Township Comment on above:Performed By: #### TSH, LIPID, CMP, PSAD, T4 #### [facility] [address] [place] [address] Wanda KarenCholesterol in LDL [Mass/Vol]81.8 mg/dLKettering Health Washington Township Comment on above:Performed By: #### TSH, LIPID, CMP, PSAD, T4 #### [facility] [address] [place] [address] Wanda KarenCholesterol.total/Cholesterol in HDL [Mass ratio]4.4 {ratio}Normal The [facility] CenterComment on above:Performed By: #### TSH, LIPID, CMP, PSAD, T4 #### [facility] [address] [place] [address] Wanda KarenHDL NORMAL> or = 60 mg/dl - LOW CARDIOVASCULAR RISK <40 mg/dl - HIGH CARDIOVASCULAR RISKNoPremier Health Miami Valley Hospital NorthComment on above:Performed By: #### TSH, LIPID, CMP, PSAD, T4 #### [facility] [address] [place] [address] Wanda KarenLDL CALC NORMALSEE BELOWNoPremier Health Miami Valley Hospital NorthComment on above: Result Comment: <100 mg/dl OPTIMAL 100 - 129 mg/dl NEAR OR ABOVE OPTIMAL 130 - 159 mg/dl BORDERLINE HIGH 160 - 189 mg/dl HIGH >190 mg/dl VERY HIGHPerformed By: #### TSH, LIPID, CMP, PSAD, T4 #### [facility] [address] [place] [address] Wanda KarenTriglyceride [Mass/Vol]121 mg/dLNormal<=150[facility] Comment on above:Performed By: #### TSH, LIPID, CMP, PSAD, T4 #### [facility] [address] [place] [address] Wanda KarenVLDL CALC24.2 mg/dLKettering Health Washington TownshipComment on above: Performed By: #### TSH, LIPID, CMP, PSAD, T4 #### [facility] [address] [place] [address] Wanda KarenPROF 14(COMP METB)on [id number] [Mass/Vol]3.3 g/dLCritically low3.5-5.0[facility] HospitalComment on above:Performed By: #### TSH, LIPID, CMP, PSAD, T4 #### [facility] [address] [id number] Wanda KarenAlbumin/Globulin [Mass ratio]0.7 {ratio}NormalDelaware County Hospital Comment on above:Performed By: #### TSH, LIPID, CMP, PSAD, T4 #### [facility] [address] [address] Wanda KarenALP [Catalytic activity/Vol]113 U/MEoayma55-536VnzDelaware County Hospital Comment on above:Performed By: #### TSH, LIPID, CMP, PSAD, T4 #### [facility] [address] [place] [address] Wanda KarenALT [Catalytic activity/Vol]25 U/DLsykzi63-25JqrDelaware County Hospital Comment on above:Performed By: #### TSH, LIPID, CMP, PSAD, T4 #### [facility] [address] [place] [address] Wanda KarenAnion gap [Moles/Vol]12.4 mmol/LNormalDelaware County HospitalComment on above:Performed By: #### TSH, LIPID, CMP, PSAD, T4 #### [facility] [address] [place] [address] Wanda KarenAST [Catalytic activity/Vol]16 U/LCritically efb58-73MtgDelaware County HospitalComment on above:Performed By: #### TSH, LIPID, CMP, PSAD, T4 #### [facility] [address] [place], [place] [address] Wanda KarenBilirubin [Mass/Vol]0.4 mg/dLNormal0.2-1.3TCleveland Clinic Comment on above:Performed By: #### TSH, LIPID, CMP, PSAD, T4 #### [facility] [address] [place], [place] [address] Wanda KarenCalcium [Mass/Vol]8.8 mg/dLNormal8.4-10.2[facility] Comment on above:Performed By: #### TSH, LIPID, CMP, PSAD, T4 #### [facility] [address] [place] [address] Wanda KarenChloride [Moles/Vol]102 mmol/GLyxrpl75-568Mye [facility] Comment on above:Performed By: #### TSH, LIPID, CMP, PSAD, T4 #### [facility] [address] [place] [address] Wanda KarenCO2 [Moles/Vol]30.0 mmol/GPpmowg30.0-30.0The [facility] Comment on above:Performed By: #### TSH, LIPID, CMP, PSAD, T4 #### [facility] [address] [place] [address] Wanda KarenCreatinine [Mass/Vol]1.29 mg/dLCritically high0.66-1.25The [facility] CenterComment on above:Performed By: #### TSH, LIPID, CMP, PSAD, T4 #### [facility] [address] [place] [address] Wanda KarenEGFR-AF NAMIBIAN>60Normal>=60Del[facility] County HospitalComment on above: Performed By: #### TSH, LIPID, CMP, PSAD, T4 #### [facility] [address] [place] [address] Wanda KarenEGFR-NON AF QKOOHBKV62 mL/min/1.49u2Sjctgrvcni low>=60The [facility] CenterComment on above:Performed By: #### TSH, LIPID, CMP, PSAD, T4 #### [facility] [address] [place] [address] Wanda KarenGlobulin (S) [Mass/Vol]4.5 g/dLNormalThe [facility] CenterComment on above:Performed By: #### TSH, LIPID, CMP, PSAD, T4 #### [facility] [address] [place] [address] Wanda KarenGlucose [Mass/Vol]153 mg/dLCritically oula46-488FekDelaware County HospitalComment on above:Performed By: #### TSH, LIPID, CMP, PSAD, T4 #### [facility] [address] [place], [place] [address] Wanda KarenPotassium [Moles/Vol]4.4 mmol/LNormal3.4-5.0The [facility] Comment on above:Performed By: #### TSH, LIPID, CMP, PSAD, T4 #### [facility] [address] [place] [address] Wanda KarenProtein [Mass/Vol]7.8 g/dLNormal6.1-8.2The [facility] CenterComment on above:Performed By: #### TSH, LIPID, CMP, PSAD, T4 #### [facility] [address] [place] [address] Wanda KarenSodium [Moles/Vol]140 mmol/BCekpjn257-718Qnn [facility] Comment on above:Performed By: #### TSH, LIPID, CMP, PSAD, T4 #### [facility] [address] [place] [address] Wanda KarenUrea nitrogen [Mass/Vol]28.0 mg/dLCritically high9.0-20.0The [facility] CenterComment on above:Performed By: #### TSH, LIPID, CMP, PSAD, T4 #### [facility] [address] [place], [place] [address] Wanda KarenUrea nitrogen/Creatinine [Mass ratio]21.7 mg/mgNormalThe [facility] CenterComment on above:Performed By: #### TSH, LIPID, CMP, PSAD, T4 #### [facility] [address] [place] [address] Wanda DgifbF0un [id number] [Mass/Vol]5.90 ug/dLNormal5.53-11.00The [facility] CenterComment on above:Performed By: #### TSH, LIPID, CMP, PSAD, T4 #### [facility] [address] [place] [address] Wanda KarenTSHon [id number] uIU/mLNormal0.470-4.680The [facility] CenterComment on above:Performed By: #### TSH, LIPID, CMP, PSAD, T4 #### [facility] [address] [address] Wanda KATHLEEN Cleveland ClinicComment on above:Result Comment: <0.34 UIU/ml HYPERTHYROID 0.34-5.60 UIU/ml EUTHYROID >5.60 UIU/ml HYPOTHYROIDPerformed By: #### TSH, LIPID, CMP, PSAD, T4 #### [facility] [address] [address] Wanda KarenXR LSPINE MIN 4 VIEWSon [id number] LSPINE MIN 4 VIEWSEXAMINATION: XR LSPINE MIN [...] Electronically authenticated by: EFRA HERBERT Date: 2020-04-04 15:[address] [place], [place] [address]ACETAMINOPHENon [id number] [Mass/Vol]ug/mL Critically low10.1-30.0Del[facility] County HospitalComment on above:Performed By: #### ACET #### [facility] [address] [place] [address] Wanda KarenAMMONIAon [id number] (P) [Moles/Vol]7 umol/LCritically low 10-30Del[facility] County HospitalComment on above:Performed By: #### AMM #### [facility] [address] [place] [address] Wanda AntoineenCBC AUTO DIFFon [id number] #0.0 103/ulNormal0.0-0.1[facility] HospitalComment on above:Performed By: #### TSH, LIPID, CMP, PSAD, T4 #### [facility] [address] [place] [address] Wanda AntoineenBasophils/100 WBC (Bld)0.4 %Normal0.2-2.0The [facility] Comment on above:Performed By: #### TSH, LIPID, CMP, PSAD, T4 #### [facility] [address] [place] [address] Wanda KarenEO #0.2 103/ulNormal0.0-0.7The [facility] CenterComment on above: Performed By: #### TSH, LIPID, CMP, PSAD, T4 #### [facility] [address] [place] [address] Wanda KarenEosinophils/100 WBC (Bld)1.8 %Normal0.9-7.0The [facility] Comment on above:Performed By: #### TSH, LIPID, CMP, PSAD, T4 #### [facility] [address] [place] [address] Wanda KarenErythrocyte distribution width (RBC) [Ratio]14.1 %Hmcysj50.0-15.0The [facility] CenterComment on above:Performed By: #### TSH, LIPID, CMP, PSAD, T4 #### [facility] [address] [place] [address] Wanda KarenHematocrit (Bld) [Volume fraction]41.2 %Critically low42.0-54.0The [facility] CenterComment on above:Performed By: #### TSH, LIPID, CMP, PSAD, T4 #### [facility] [address] [place] [address] Wanda KarenHemoglobin (Bld) [Mass/Vol]13.3 g/dLCritically low14.0-18.0The [facility] CenterComment on above:Performed By: #### TSH, LIPID, CMP, PSAD, T4 #### [facility] [address] [place] [address] Wanda KarenIG #0.05 10e3/ulCritically high0.00-0.03The [facility] CenterComment on above:Performed By: #### TSH, LIPID, CMP, PSAD, T4 #### [facility] [address] [place] [address] Wanda KarenIG %0.5 %Normal0.0-0.5The [facility] CenterComment on above: Performed By: #### TSH, LIPID, CMP, PSAD, T4 #### [facility] [address] [place] [address] Wanda AntoineenLYMPH #2.3 103/ulNormal1.2-3.8The [facility] CenterComment on above: Performed By: #### TSH, LIPID, CMP, PSAD, T4 #### [facility] [address] [place] [address] Wanda ConradLymphocytes/100 WBC (Bld)21.1 %Iywvtw66.5-60.0[facility] Comment on above:Performed By: #### TSH, LIPID, CMP, PSAD, T4 #### [facility] [address] [place] [address] Wanda KarenMANUAL DIFF REQNONormalThe [facility] CenterComment on above: Performed By: #### TSH, LIPID, CMP, PSAD, T4 #### [facility] [address] [place] [address] Wanda KarSt. Peter's Hospital (RBC) [Entitic mass]26.1 nbPfysdb65.9-34.0[facility] Comment on above:Performed By: #### TSH, LIPID, CMP, PSAD, T4 #### [facility] [address] [place] [address] Wanda KarLake City [facility] and [facility] (RBC) [Mass/Vol]32.3 g/zPIazbam25.9-35.2[facility] Comment on above:Performed By: #### TSH, LIPID, CMP, PSAD, T4 #### [facility] [address] [place] [address] Wanda KarMyMichigan Medical Center Alma (RBC) [Entitic vol]80.9 kJKbhmub72.0-94.0[facility] Comment on above:Performed By: #### TSH, LIPID, CMP, PSAD, T4 #### [facility] [address] [place] [address] Wanda KarenMONO #0.5 103/ulNormal0.3-0.8The [facility] CenterComment on above: Performed By: #### TSH, LIPID, CMP, PSAD, T4 #### [facility] [address] [place], [place] [address] Wanda KarenMonocytes/100 WBC (Bld)4.8 %Normal1.7-12.0The [facility] Comment on above:Performed By: #### TSH, LIPID, CMP, PSAD, T4 #### [facility] [address] [place] [address] Wanda KarenNEUT #7.8 103/ulCritically high1.4-6.5The [facility] CenterComment on above:Performed By: #### TSH, LIPID, CMP, PSAD, T4 #### [facility] [address] [place] [address] Wanda KarenNeutrophils/100 WBC (Bld)71.4 %Mukuyp64.0-75.0The [facility] Comment on above:Performed By: #### TSH, LIPID, CMP, PSAD, T4 #### [facility] [address] [place] [address] Wanda KarenPlatelet mean volume (Bld) [Entitic vol]9.6 fLNormal9.5-13.5The [facility] CenterComment on above:Performed By: #### TSH, LIPID, CMP, PSAD, T4 #### [facility] [address] [place] [address] Wanda MpmahVBJ456 103/iqLinjqv078-315Vsr [facility] CenterComment on above: Performed By: #### TSH, LIPID, CMP, PSAD, T4 #### [facility] [address] [place] [address] Wanda KarenRBC5.09 106/ulNormal4.70-6.10The [facility] CenterComment on above: Performed By: #### TSH, LIPID, CMP, PSAD, T4 #### [facility] [address] [place] [address] Wanda ZbprhTWL64.8 103/ulNormal4.0-11.0The [facility] CenterComment on above: Performed By: #### TSH, LIPID, CMP, PSAD, T4 #### [facility] [address] [id number] Wanda KarenCT HEAD WO CONon [id number] HEAD WO CONCT BRAIN WITHOUT CONTRAST HISTORY: [...] Electronically authenticated by: EFRA MARRERO Date: 2019-11-25 01:49[facility] TownshipETHANOL (BLD ALC)on [id number] NOTENOTE: 80 mg/dl is the legal limit for a blood alcohol levelTuscarawas Hospital on above:Performed By: #### TSH, LIPID, CMP, PSAD, T4 #### [facility] [address] [place] [address] Wanda KarenEthanol [Mass/Vol]205 mg/dLKettering Health Washington TownshipComment on above:Performed By: #### TSH, LIPID, CMP, PSAD, T4 #### [facility] [address] [address] Wanda KarenPROF 14(COMP METB)on 18-12-3716Dujiovw [Mass/Vol]3.2 g/dLCritically low3.5-5.0The [facility] on above:Performed By: #### TSH, LIPID, CMP, PSAD, T4 #### [facility] [address] [place] [address] Wanda KarenAlbumin/Globulin [Mass ratio]0.8 {ratio}NormalDelaware County Hospital Comment on above:Performed By: #### TSH, LIPID, CMP, PSAD, T4 #### [facility] [address] [place] [address] Wanda KarenALP [Catalytic activity/Vol]111 U/BZqtzkr74-781JqcDelaware County Hospital Comment on above:Performed By: #### TSH, LIPID, CMP, PSAD, T4 #### [facility] [address] [place] [address] Wanda KarenALT [Catalytic activity/Vol]23 U/XFfglpv70-03IbkDelaware County Hospital Comment on above:Performed By: #### TSH, LIPID, CMP, PSAD, T4 #### [facility] [address] [place] [address] Wanda KarenAnion gap [Moles/Vol]16.5 mmol/LNormalThe [facility] CenterComment on above:Performed By: #### TSH, LIPID, CMP, PSAD, T4 #### [facility] [address] [place] [address] Wanda KarenAST [Catalytic activity/Vol]15 U/LCritically jbz91-50NgqDelaware County HospitalComment on above:Performed By: #### TSH, LIPID, CMP, PSAD, T4 #### [facility] [address] [place] [address] Wanda KarenBilirubin [Mass/Vol]0.3 mg/dLNormal0.2-1.3TCleveland Clinic Comment on above:Performed By: #### TSH, LIPID, CMP, PSAD, T4 #### [facility] [address] [place] [address] Wanda KarenCalcium [Mass/Vol]8.2 mg/dLCritically low8.4-10.2Del[facility] HospitalComment on above:Performed By: #### TSH, LIPID, CMP, PSAD, T4 #### [facility] [address] [place] [address] Wanda KarenChloride [Moles/Vol]98 mmol/ODlhpsa53-390IbiDelaware County Hospital Comment on above:Performed By: #### TSH, LIPID, CMP, PSAD, T4 #### [facility] [address] [place] [address] Wanda KarenCO2 [Moles/Vol]23.2 mmol/LWdlugq80.0-30.0[facility] Comment on above:Performed By: #### TSH, LIPID, CMP, PSAD, T4 #### [facility] [address] [place] [address] Wanda KarenCreatinine [Mass/Vol]0.91 mg/dLNormal0.66-1.25ThMarietta Osteopathic Clinic Comment on above:Performed By: #### TSH, LIPID, CMP, PSAD, T4 #### [facility] [address] [place] [address] Wanda KarenEGFR-AF NAMIBIAN>60Normal>=60Del[facility] County HospitalComment on above: Performed By: #### TSH, LIPID, CMP, PSAD, T4 #### [facility] [address] [place] [address] Wanda KarenEGFR-NON AF NAMIBIAN>60Normal>=60Del[facility] HospitalComment on above:Performed By: #### TSH, LIPID, CMP, PSAD, T4 #### [facility] [address] [place] [address] Wanda KarenGlobulin (S) [Mass/Vol]4.1 g/dLNormalThMarietta Osteopathic ClinicComment on above:Performed By: #### TSH, LIPID, CMP, PSAD, T4 #### [facility] [address] [place] [address] Wanda KarenGlucose [Mass/Vol]231 mg/dLCritically hghb18-062OfhDelaware County HospitalComment on above:Performed By: #### TSH, LIPID, CMP, PSAD, T4 #### [facility] [address] [place] [address] Wanda KarenPotassium [Moles/Vol]3.7 mmol/LNormal3.4-5.0[facility] Comment on above:Performed By: #### TSH, LIPID, CMP, PSAD, T4 #### [facility] [address] [id number] Wanda KarenProtein [Mass/Vol]7.3 g/dLNormal6.1-8.2The [facility] CenterComment on above:Performed By: #### TSH, LIPID, CMP, PSAD, T4 #### [facility] [address] [address] Wanda KarenSodium [Moles/Vol]134 mmol/LCritically scm834-529Dbv [facility] CenterComment on above:Performed By: #### TSH, LIPID, CMP, PSAD, T4 #### [facility] [address] [place] [address] Wanda KarenUrea nitrogen [Mass/Vol]22.0 mg/dLCritically high9.0-20.0The [facility] on above:Performed By: #### TSH, LIPID, CMP, PSAD, T4 #### [facility] [address] [address] Wanda KarenUrea nitrogen/Creatinine [Mass ratio]24.2 mg/mgNormalThMarietta Osteopathic ClinicComascension prov[facility] on above:Performed By: #### TSH, LIPID, CMP, PSAD, T4 #### [facility] [address] [place] [address] Wanda KarenSALICYLATEon 34-90-9496QWFUXTJDZJ4.3 mg/dLNormal<=20.0[facility] on above:Performed By: #### TSH, LIPID, CMP, PSAD, T4 #### [facility] [address] [place], [place] [address] Wanda KarenXR CHEST 1 Von [id number] CHEST 1 VCHEST RADIOGRAPH: HISTORY: Pain. COMPARISON: None available. TECHNIQUE: AP radiograph of was performed of the chest. FINDINGS: SUPPORT APPARATUS: None. CARDIOMEDIASTINAL SILHOUETTE: Normal. AIRWAYS/LUNGS: Clear. PLEURAL SPACES: No pleural effusion or pneumothorax. BONES AND SOFT TISSUES: No acute abnormality. IMPRESSION: Normal chest radiograph. Electronically authenticated by: EFRA MARRERO Date: 2019-11-25 01:51NoPremier Health Miami [facility] Hospital NorthXR PELVIS 1_2 VIEWSon [id number] PELVIS 1_2 VIEWSXR PELVIS 1_2 VIEWS: HISTORY: [...] Electronically authenticated by: EFRA MARRERO Date: 2019-11-25 01:52NoW[facility] AUTO DIFFon [id number] #0.1 103/ulNormal0.0-0.1Del[facility] County HospitalComment on above:Performed By: #### CBC #### [facility] [address] [place] [address] Wanda KarenBasophils/100 WBC (Bld)0.6 %Normal0.2-2.0[facility] Comment on above:Performed By: #### CBC #### [facility] [address] [address] Wanda KarenEO #0.2 103/ulNormal0.0-0.7The [facility] CenterComment on above: Performed By: #### CBC #### [facility] [address] [place] [address] Wanda KarenEosinophils/100 WBC (Bld)1.7 %Normal0.9-7.0[facility] Comment on above:Performed By: #### CBC #### [facility] [address] [address] Wanda KarenErythrocyte distribution width (RBC) [Ratio]14.4 %Rlrqxv46.0-15.0The [facility] CenterComment on above:Performed By: #### CBC #### [facility] [address] [place] [address] Wanda KarenHematocrit (Bld) [Volume fraction]44.2 %Mrrtxg04.0-54.0[facility] HospitalComment on above:Performed By: #### CBC #### [facility] [address] [place], [place] [address] Wanda KarenHemoglobin (Bld) [Mass/Vol]13.9 g/dLCritically low14.0-18.0The [facility] CenterComment on above:Performed By: #### CBC #### [facility] [address] [place] [address] Wanda AntoineenIG #0.04 10e3/ulCritically high0.00-0.03The [facility] CenterComment on above:Performed By: #### CBC #### [facility] [address] [place] [address] Wanda AntoineenIG %0.4 %Normal0.0-0.5The [facility] CenterComment on above: Performed By: #### CBC #### [facility] [address] [place] [address] Wanda KarenLYMPH #2.8 103/ulNormal1.2-3.8The [facility] CenterComment on above: Performed By: #### CBC #### [facility] [address] [place] [address] Wanda KarenLymphocytes/100 WBC (Bld)28.2 %Ochkop51.5-60.0The [facility] Comment on above:Performed By: #### CBC #### [facility] [address] [place] [address] Wanda KarenMANUAL DIFF REQNONormalThe [facility] CenterComment on above: Performed By: #### CBC #### [facility] [address] [place] [address] Wanda KarenMCH (RBC) [Entitic mass]25.9 biUmmphg68.9-34.0The [facility] Comment on above:Performed By: #### CBC #### [facility] [address] [place] [address] Wanda KarenMCHC (RBC) [Mass/Vol]31.4 g/rMUovmed63.9-35.2The [facility] Comment on above:Performed By: #### CBC #### [facility] [address] [place] [address] Wanad KarenMCV (RBC) [Entitic vol]82.3 pJEhcqum43.0-94.0The [facility] Comment on above:Performed By: #### CBC #### [facility] [address] [place] [address] Wanda AntoineenMONO #0.5 103/ulNormal0.3-0.8The [facility] HospitalComment on above: Performed By: #### CBC #### [facility] [address] [place] [address] Wanda KarenMonocytes/100 WBC (Bld)5.2 %Normal1.7-12.0The [facility] Comment on above:Performed By: #### CBC #### [facility] [address] [place] [address] Wanda AntoineenNEUT #6.4 103/ulNormal1.4-6.5The [facility] CenterComment on above: Performed By: #### CBC #### [facility] [address] [place] [address] Wanda KarenNeutrophils/100 WBC (Bld)63.9 %Owyvho25.0-75.0The [facility] Comment on above:Performed By: #### CBC #### [facility] [address] [place] [address] Wanda KarenPlatelet mean volume (Bld) [Entitic vol]10.5 fLNormal9.5-13.5The [facility] CenterComment on above:Performed By: #### CBC #### [facility] [address] [place] [address] Wanda XtcoqMEN833 103/agKfbmie455-378Mop [facility] CenterComment on above: Performed By: #### CBC #### [facility] [address] [place] [address] Wanda KarenRBC5.37 106/ulNormal4.70-6.10The [facility] CenterComment on above: Performed By: #### CBC #### [facility] [address] [place] [address] Wanda TulqhKEN99.0 103/ulNormal4.0-11.0[facility] HospitalComment on above: Performed By: #### CBC #### [facility] [address] [address] Wanda KarenGLYCOHEMOGLOBIN A1Con 71-43-1507Jxhgoro [Mass/Vol]163 mg/dLKettering Health Washington TownshipComment on above:Performed By: #### TSH, LIPID, CMP, PSAD, T4 #### [facility] [address] [place] [address] Wanda IyfuoUaX5h (Bld) [Mass fraction]7.3 %Critically high<=6.0[facility] HospitalComment on above:Performed By: #### TSH, LIPID, CMP, PSAD, T4 #### [facility] [address] [place] [address] Wanda KarenLIPID PROFILEon [id number]-HDL RATIO NORMSEE Cleveland ClinicComment on above:Result Comment: 3.3 - 4.4 LOW RISK 4.4 - 7.1 AVERAGE RISK 7.1 - 11.0 MODERATE RISK >11.0 HIGH RISKPerformed By: #### TSH, LIPID, CMP, PSAD, T4 #### [facility] [address] [place] [address] Wanda KarenCholesterol [Mass/Vol]130 mg/dLNormal<=200[facility] Comment on above:Performed By: #### TSH, LIPID, CMP, PSAD, T4 #### [facility] [address] [place] [address] Wanda KarenCholesterol in HDL [Mass/Vol]32 mg/dLKettering Health Washington Township Comment on above:Performed By: #### TSH, LIPID, CMP, PSAD, T4 #### [facility] [address] [place] [address] Wanda KarenCholesterol in LDL [Mass/Vol]76.6 mg/dLKettering Health Washington Township Comment on above:Performed By: #### TSH, LIPID, CMP, PSAD, T4 #### [facility] [address] [place], [place] [address] Wanda KarenCholesterol.total/Cholesterol in HDL [Mass ratio]4.1 {ratio}Normal The [facility] CenterComment on above:Performed By: #### TSH, LIPID, CMP, PSAD, T4 #### [facility] [address] [place] [address] Wanda KarenHDL NORMAL> or = 60 mg/dl - LOW CARDIOVASCULAR RISK <40 mg/dl - HIGH CARDIOVASCULAR RISKKettering Health Washington TownshipComment on above:Performed By: #### TSH, LIPID, CMP, PSAD, T4 #### [facility] [address] [place] [address] Wanda KarenLDL CALC NORMALSEE BELOWKettering Health Washington TownshipComment on above: Result Comment: <100 mg/dl OPTIMAL 100 - 129 mg/dl NEAR OR ABOVE OPTIMAL 130 - 159 mg/dl BORDERLINE HIGH 160 - 189 mg/dl HIGH >190 mg/dl VERY HIGHPerformed By: #### TSH, LIPID, CMP, PSAD, T4 #### [facility] [address] [place] [address] Wanda KarenTriglyceride [Mass/Vol]107 mg/dLNormal<=150[facility] Comment on above:Performed By: #### TSH, LIPID, CMP, PSAD, T4 #### [facility] [address] [place] [address] Wanda KarenVLDL CALC21.4 mg/dLNoPremier Health Miami Valley Hospital NorthComment on above: Performed By: #### TSH, LIPID, CMP, PSAD, T4 #### [facility] [address] [place] [address] Wanda KarenMICROALBUMIN, RAND URon [id number]<1.3Normal<=30.0The [facility] CenterComment on above:Performed By: #### MALBR #### [facility] [address] [place] [address] Wanda KarenmALBHPLEASE NOTE: NORMAL RANGE CHANGE, TESTING PERFORMED AT [facility]. NormalThe [facility] CenterComment on above:Performed By: #### MALBR #### [facility] [address] [place] [address] Wanda KarenPROF 14(COMP METB)on 46-89-3199Fjpplhv [Mass/Vol]3.5 g/dLNormal 3.5-5.0[facility] HospitalComment on above:Performed By: #### TSH, LIPID, CMP, PSAD, T4 #### [facility] [address] [address] Wanda KarenAlbumin/Globulin [Mass ratio]0.8 {ratio}NormalDelaware County Hospital Comment on above:Performed By: #### TSH, LIPID, CMP, PSAD, T4 #### [facility] [address] [place] [address] Wanda KarenALP [Catalytic activity/Vol]103 U/SQtzfhy53-214OljDelaware County Hospital Comment on above:Performed By: #### TSH, LIPID, CMP, PSAD, T4 #### [facility] [address] [place] [address] Wanda KarenALT [Catalytic activity/Vol]21 U/RJcsecu32-04MymDelaware County Hospital Comment on above:Performed By: #### TSH, LIPID, CMP, PSAD, T4 #### [facility] [address] [address] Wanda KarenAnion gap [Moles/Vol]13.9 mmol/LNormalDelaware County HospitalComment on above:Performed By: #### TSH, LIPID, CMP, PSAD, T4 #### [facility] [address] [address] Wanda KarenAST [Catalytic activity/Vol]18 U/OLggfiu38-78GdwDelaware County Hospital Comment on above:Performed By: #### TSH, LIPID, CMP, PSAD, T4 #### [facility] [address] [address] Wanda KarenBilirubin [Mass/Vol]0.5 mg/dLNormal0.2-1.3TCleveland Clinic Comment on above:Performed By: #### TSH, LIPID, CMP, PSAD, T4 #### [facility] [address] [address] Wanda KarenCalcium [Mass/Vol]8.9 mg/dLNormal8.4-10.2[facility] Comment on above:Performed By: #### TSH, LIPID, CMP, PSAD, T4 #### [facility] [address] [address] Wanda KarenChloride [Moles/Vol]100 mmol/VAyevce16-674HytDelaware County Hospital Comment on above:Performed By: #### TSH, LIPID, CMP, PSAD, T4 #### [facility] [address] [place] [address] Wanda KarenCO2 [Moles/Vol]28.2 mmol/OXgolho23.0-30.0The [facility] Comment on above:Performed By: #### TSH, LIPID, CMP, PSAD, T4 #### [facility] [address] [place] [address] Wanda KarenCreatinine [Mass/Vol]1.08 mg/dLNormal0.66-1.25The [facility] Comment on above:Performed By: #### TSH, LIPID, CMP, PSAD, T4 #### [facility] [address] [place] [address] Wanda KarenEGFR-AF NAMIBIAN>60Normal>=60The [facility] CenterComment on above: Performed By: #### TSH, LIPID, CMP, PSAD, T4 #### [facility] [address] [place] [address] Wanda KarenEGFR-NON AF NAMIBIAN>60Normal>=60The [facility] CenterComment on above:Performed By: #### TSH, LIPID, CMP, PSAD, T4 #### [facility] [address] [place] [address] Wanda KarenGlobulin (S) [Mass/Vol]4.6 g/dLNormalThe [facility] CenterComment on above:Performed By: #### TSH, LIPID, CMP, PSAD, T4 #### [facility] [address] [place] [address] Wanda KarenGlucose [Mass/Vol]129 mg/dLCritically lixq31-514Lij [facility] CenterComment on above:Performed By: #### TSH, LIPID, CMP, PSAD, T4 #### [facility] [address] [address] Wanda KarenPotassium [Moles/Vol]4.1 mmol/LNormal3.4-5.0The [facility] Comment on above:Performed By: #### TSH, LIPID, CMP, PSAD, T4 #### [facility] [address] [place] [address] Wanda KarenProtein [Mass/Vol]8.1 g/dLNormal6.1-8.2The [facility] CenterComment on above:Performed By: #### TSH, LIPID, CMP, PSAD, T4 #### [facility] [address] [place] [address] Wanda KarenSodium [Moles/Vol]138 mmol/FGmzoka828-600Byy [facility] Comment on above:Performed By: #### TSH, LIPID, CMP, PSAD, T4 #### [facility] [address] [address] Wanda KarenUrea nitrogen [Mass/Vol]34.0 mg/dLCritically high9.0-20.0The [facility] CenterComment on above:Performed By: #### TSH, LIPID, CMP, PSAD, T4 #### [facility] [address] [place], [place] [address] Wanda KarenUrea nitrogen/Creatinine [Mass ratio]31.5 mg/mgNormalThe [facility] CenterComment on above:Performed By: #### TSH, LIPID, CMP, PSAD, T4 #### [facility] [address] [place], [place] [address] Wanda Anamaria Vital Signs Date TimeVital SignValuePerforming BcrejcaqjLfulbnbj99-66-4603 13:48-0400Body kyceep854.6 cmJomagdalene REACH Health Work Phone: [facility]04-07-2025 13:48-0400Body mass index (BMI) [Ratio]66.3 kg/m2Jo THE MELTmercyone el[facility] DO Work Phone: [facility]04-07-2025 13:48-0400Body kvppfwfsbac69.5 [degF]Merritt Thacker DO Work Phone: [facility] Vsdfai93-04-2104 13:48-0400Body aausky109.34 kgMerritt Thacker DO Work Phone: [facility]04-07-2025 13:48-0400Diastolic blood mm[Hg]Merritt Thacker DO Work Phone: [facility] [employer] [facility] CenterComment on above:bp cuff not big osynga61-59-9021 13:48-0400Heart rate92 /minMerritt Thacker DO Work Phone: [facility] [employer] Quhbhy88-17-5021 13:48-0400 Respiratory rate20 /minMerritt Thacker DO Work Phone: [facility] [employer] Gztfvp94-92-8722 13:48-5659TnO0% (BldA) [Mass fraction]91 %Merritt Thacker DO Work Phone: [facility]04-07-2025 13:48-0400Systolic blood dzuzmjty137 mm[Hg]Merritt Thacker DO Work Phone: [facility] [employer] Hawthorn CenterComment on above:bp cuff not big -30-3228 13:20-0500Diastolic blood xascdgjg23 mm[Hg]Merritt Thacker DO Work Phone: [facility] [employer] Mrstym23-04-8000 13:20-0500Systolic blood bugduriz961 mm[Hg]Merritt Thacker DO Work Phone: [facility]01-07-2025 12:57-0500Body rvoymk583.6 cmJomagdalene Thacker DO Work Phone: [facility] Exejti29-86-7565 12:57-0500Body mass index (BMI) [Ratio]68.44 kg/m2Merritt Thacker DO Work Phone: [facility]01-07-2025 12:57-0500Body khxywzeplsb87.59 [degF]Merritt Thacker DO Work Phone: [facility] Ulwsvn27-38-7054 12:57-0500Body bwurkr443.32 kgMerritt Thacker DO Work Phone: [facility] Yfokrt47-17-6171 12:57-0500Heart rate 78 /minMerritt Thacker DO Work Phone: [facility] [employer] Fixdkh41-85-1335 12:57-0500 Respiratory rate20 /minMerritt Thacker DO Work Phone: [facility] [employer] Pjugoy81-31-0613 12:57-2383VjX5% (BldA) [Mass fraction]97 %Merritt Thacker DO Work Phone: [facility] [employer] Vnjpip94-16-5848 15:01-0400Body blxwgi789.6 cmMerritt Thacker DO Work Phone: [facility] [employer] Klhhui96-30-5600 15:01-0400Body mass index (BMI) [Ratio]63.75 kg/m2Merritt Thacker DO Work Phone: [facility] [employer] Wxwcbe17-66-9613 15:01-0400Body ykywgqmyork58.59 [degF]Merritt Thacker DO Work Phone: [facility] Ukgqtm56-97-5236 15:01-0400Body rfimxm784.17 kgMerritt Thacker DO Work Phone: [facility] Qiusxz27-81-5626 15:01-0400Diastolic blood hnxjzixl78 mm[Hg]Merritt Thacker DO Work Phone: [facility] Ouxixh06-87-5839 15:01-0400Heart rate 88 /minMerritt Thacker DO Work Phone: [facility] Gdpsnv47-33-0282 15:01-2965DbE6% (BldA) [Mass fraction]95 %Merritt Thacker DO Work Phone: [facility] Wmvkey88-77-7235 15:01-0400Systolic blood tnxvloft083 mm[Hg]Merritt Thacker DO Work Phone: [facility]08-19-2024 16:34-0400Body heyctz041.6 cmMerritt Thacker DO Work Phone: [facility] [employer] Ayhror98-97-5891 16:34-0400Body mass index (BMI) [Ratio]67.39 kg/m2Merritt Thacker DO Work Phone: [facility] [employer] Friclo38-88-6757 16:34-0400Body mskgsnjamid94.11 [degF]Merritt Thacker DO Work Phone: [facility]08-19-2024 16:34-0400Body lafval610.38 kgJomagdalene Thacker DO Work Phone: [facility]08-19-2024 16:34-0400Diastolic blood rvkwoznd39 mm[Hg]Merritt Thacker DO Work Phone: [facility] [employer] Yxsqoy24-63-9830 16:34-0400Heart rate 71 /minJomagdalene Thacker DO Work Phone: [facility] [employer] Qzgcsl12-81-8050 16:34-4301IkK2% (BldA) [Mass fraction]98 %Merritt Thacker DO Work Phone: [facility] [employer] Peajvf83-55-0656 16:34-0400Systolic blood asyuwaxo282 mm[Hg]Merritt Thacker DO Work Phone: [facility] [employer] Vesymq57-46-7416 14:38-0400Body pdehik114.6 cmMerritt Thacker DO Work Phone: [facility]08-05-2024 14:38-0400Body nlmyduutlgy51.49 [degF]Merritt Thacker DO Work Phone: [facility]08-05-2024 14:38-0400Diastolic blood fxkqslin36 mm[Hg]Merritt Thacker DO Work Phone: [facility]08-05-2024 14:38-0400Heart rate 75 /minMerritt Thacker DO Work Phone: [facility] [employer] Hhbptw76-29-4234 14:38-0400 Respiratory rate20 /minMerritt Thacker DO Work Phone: [facility]08-05-2024 14:38-9055EcK4% (BldA) [Mass fraction]94 %Merritt Thacker DO Work Phone: [facility]08-05-2024 14:38-0400Systolic blood ctjhzvoe530 mm[Hg]Merritt Thacker DO Work Phone: [facility]04-10-2024 13:51-0400Diastolic blood yvlyifry59 mm[Hg]Merritt Thacker DO Work Phone: [facility] [employer] Dtxela20-30-6092 13:51-0400Systolic blood ywvkkubm893 mm[Hg]Merritt Thacker DO Work Phone: [facility]04-10-2024 13:09-0400Body xdxkwo124.6 cmJomagdalene Thacker DO Work Phone: [facility] [employer] Upfnwf98-41-2683 13:09-0400Body mass index (BMI) [Ratio]68.86 kg/m2Merritt Thacker DO Work Phone: [facility] [employer] Xbgvef70-75-2678 13:09-0400Body oxwosxwadvq12.2 [degF]Merritt Thacker DO Work Phone: [facility]04-10-2024 13:09-0400Body iaqavb388.5 kgMerritt Thacker DO Work Phone: [facility] [employer] Eugqpf10-18-7562 13:09-0400Heart rate 88 /minMerritt Thacker DO Work Phone: [facility] Jhyjut27-66-5541 13:09-0400 Respiratory rate20 /Jillian Thacker DO Work Phone: [facility] Qlbhni01-17-7971 13:09-0049MlN8% (BldA) [Mass fraction]98 %Merritt Thacker DO Work Phone: [facility] Encounters Encounter DateEncounter TypeCare ProviderFacilityStart: 02-15-2025 End: 40-74-0486Ukpmmgfiz encounterNoemi Caraballo [facility] NETWORKProMedica Physicians Internal Medicine - Family MedicineComment on above:Colon Cancer ScreeningStart: 01-21-2025 End: 55-86-8728bizjcunybqAQTPProMedica Memorial Hospitaltart: 12-03-2024 End: 28-74-1137BqtqjwVmpx Albertina Thacker DO Work Phone: [facility] - Family MedicineComment on above:Type 2 diabetes mellitus without complication, without long-term current use of insulin ([facility]); Non-seasonal allergic rhinitis, unspecified triggerStart: 09-03-2024 End: 10-08-3168rkfjbbiskoZXVZSt. Charles Hospitaltart: 09-03-2024 End: 44-14-3608Dsfobc outpatient visit 25 Artis Thacker DO Work Phone: [facility] - Family MedicineComment on above:Type 2 diabetes mellitus without complication, without long-term current use of insulin ([facility]) (Primary Dx); Special screening for malignant neoplasm of colon; Chronic combined systolic and diastolic CHF (congestive heart failure) ([facility]); Non-seasonal allergic rhinitis, unspecified trigger; Primary osteoarthritis of right shoulderStart: 09-03-2024 End: 27-21-6779ctdyemonbyZULDUpland Hills Health PPGStart: 08-25-2024 End: 76-52-4385KulxogLwtv Albertina Thacker DO Work Phone: [facility] - Family MedicineComment on above:Type 2 diabetes mellitus without complication, without long-term current use of insulin ([facility])Start: 06-07-2024 End: 06-17-9672Izdsqtgpa encounterJomagdalene Thacker DO Work Phone: [facility] - [facility]tart: 06-05-2024 End: 84-66-1107cmjyufgzmiFQEZSt. Charles Hospitaltart: 06-05-2024 End: 85-14-5101Ldniuo outpatient visit 25 minutesGriseldamagdalene Thacker DO Work Phone: [facility] - [facility] HospitalComment on above:Type 2 diabetes mellitus without complication, without long-term current use of insulin ([facility]) (Primary Dx); Chronic combined systolic and diastolic CHF (congestive heart failure) ([facility]); Obesity, morbid ([facility]); Stage 3b chronic kidney disease ([facility]); Encounter for screening for malignant neoplasm of prostate; Encounter for immunization; Primary osteoarthritis of right shoulder; Non-seasonal allergic rhinitis, unspecified triggerStart: 06-05-2024 End: 14-07-6098fqpkkvapchJWBPSoutheast [facility] PPGStart: 03-01-2024 End: 48-26-0413Adfjwdncz encounterMaria B Shantelleing ASSOCIATE PROFESSOR OF PHILOSOPHY Work Phone: [facility] SWS ORTHOComment on above:ReferralStart: 02-29-2024 End: 79-00-4103Uwogor flowsheetMaria B Apling ASSOCIATE PROFESSOR OF PHILOSOPHY Work Phone: [facility] ORTHOPAEDICSStart: 02-29-2024 End: 13-40-1760Ociuwh flowsheetMaria B Apling ASSOCIATE PROFESSOR OF PHILOSOPHY Work Phone: [facility] CI ORTHOPAEDICSStart: 02-29-2024 End: 58-50-4791Kzgmlq outpatient visit 25 minutesMaria B Apling ASSOCIATE PROFESSOR OF PHILOSOPHY Work Phone: [facility] CI ORTHOPAEDICSComment on above:Right shoulder pain, unspecified chronicity (Primary Dx); Chronic pain of both knees; Chronic pain of both ankles; Impingement of right shoulderStart: 02-29-2024 End: 82-70-7424zjtgwyqbkkGZMEA B APLINGNot AvailableStart: 02-21-2024 End: 67-37-9265lwpmxquywbHQVPSoutheast [facility] PPGStart: 02-21-2024 End: 30-57-0283Xbutnf outpatient visit 25 minutesJomagdalene Thacker DO Work Phone: [facility] - Family MedicineComment on above:Type 2 diabetes mellitus without complication, without long-term current use of insulin ([facility]) (Primary Dx); Chronic combined systolic and diastolic CHF (congestive heart failure) ([facility]); Primary osteoarthritis of right shoulder; Chronic right shoulder pain; Primary osteoarthritis of both anklesStart: 01-17-2024 End: 76-64-9704ihclnnltksIDWXOhioHealth Hardin Memorial Hospitaltart: 01-16-2024 End: 53-11-2543bfdsirpkpzMNTGSelect Specialty Hospital-Qu[facility] Cities HospitalStart: 01-16-2024 End: 03-70-9394jksconxqigTMASUpland Hills Health PPGStart: 01-16-2024 End: 30-86-1490Pfqrqijyhuke care manage srvc 14 day dischargeGriseldamagdalene Thacker DO Work Phone: [facility] Internal Medicine - Family [facility] HospitalComment on above:Chronic combined systolic and diastolic CHF (congestive heart failure) ([facility]) (Primary Dx); Type 2 diabetes mellitus without complication, without long-term current use of insulin ([facility]); Primary osteoarthritis of right shoulder; Stage 3b chronic kidney disease ([facility]); Hyperlipidemia, unspecified hyperlipidemia typeStart: 01-09-2024 End: 98-68-6224Lhfmomsll encounterMisty Domingo [facility] NETWORKProMedica Physicians Internal Medicine - Family [facility] Montgomerytart: 01-02-2024 End: 31-97-0825tkdopzoqghSZIDSoutheast [facility] PPGStart: 01-02-2024 End: 06-76-4676Dudujgdrcrhp care manage srvc 14 day dischargeGriseldamagdalene Thacker DO Work Phone: [facility] Phys[facility] Internal Medicine - Family MedicineComment on above:Acute on chronic systolic congestive heart failure ([facility]) (Primary Dx); Essential hypertension; Stage 3b chronic kidney disease ([facility]); Type 2 diabetes mellitus without complication, without long-term current use of insulin ([facility]); Obesity, morbid ([facility])Start: 12-26-2023 End: 50-43-2300Gwraagshz encounterMerritt Thacker DO Work Phone: [facility] Phys[facility] Internal Medicine - Family MedicineStart: 12-14-2023 End: 52-54-4870Fcyqtaxpz encounterSelma Quijano [facility] Internal Medicine - Family MedicineStart: 11-18-2023 End: 62-56-2023RbcmcdHzprh Post[facility] Internal Medicine - Family MedicineComment on above:Type 2 diabetes mellitus without complication, without long-term current use of insulin ([facility])Start: 09-15-2023 End: 67-13-7739Bffwtrmgx encounterNitza Oneal [facility] - [facility] MedicineStart: 09-07-2023 End: 26-13-3343soldnubrdtZGFJ [facility] HospitalStart: 09-07-2023 End: 94-38-6356Bjgxgz outpatient visit 25 minutesMerritt Thacker DO Work Phone: [facility] Internal Medicine - Family MedicineComment on above:Type 2 diabetes mellitus without complication, without long-term current use of insulin ([facility]) (Primary Dx); Stage 3b chronic kidney disease ([facility]); Essential hypertension; Class 3 severe obesity due to excess calories with serious comorbidity and body mass index (BMI) of60.0 to 69.9 in adult ([facility]); Immunization dueStart: 09-07-2023 End: 68-94-6125qpwgevyacwZGEOUpland Hills Health PPGStart: 16-70-6355Hlvipauka encounterKaveh Mayer DO Work Phone: [facility] ORTHOPAEDICSComment on above:Refund Checks Start: 04-11-2023 End: 54-05-0542mtshzwnrkfHTQDK B APLINGNot AvailableStart: 07-13-2021 End: 43-91-7606xtyrqktjzzSyldqpg HouseFacility:[facility] Start: 10-54-6334Qmrmbafag for general adult medical examination without abnormal findingsDR DEVANG BIRCHWright-Patterson Medical Center HospitalStart: 10-01-2020 End: 92-55-4186cvhuwnblboNX DEVANG HOUSEFacility:K0Oqixx: 10-01-2020 End: 73-94-5137Jckorwaiw for general adult medical examination without abnormal findingsDR DEVANG HOUSEFacility:L5Qylky: 04-04-2020 End: 14-68-9101exyuqrpgmuZV DEVANG HOUSEFacility:V4Wetnc: 11-25-2019 End: 67-47-4077cmqsiekhgsGA DEVANG HOUSEFacility:O7Rkhmx: 10-18-2019 End: 54-44-4370pxpuwzsuqlEW DEVANG HOUSEFacility:H1 Procedures DateProcedureProcedure DetailPerforming ClinicianStart: 95-76-7581Jnltx depression screening assessmentJomagdalene Thacker DO Work Phone: Start: 69-82-4664Pebxzpkdcxaxxv aspir&/inj major jt/bursa w/o usMaria B Apling ASSOCIATE PROFESSOR OF PHILOSOPHY Work Phone: Start: 53-12-9003Ykizq depression screening assessment Merritt Thacker DO Work Phone: Start: 61-36-2097Kmaipfzqgoph [Mass/volume] in Urine by Test stripGriseldamagdalene Dents DO Work Phone: Start: 40-14-4895Ahcpeb-up visitFollow-upMERRITT Eng KIRSTIE Start: 51-66-9812Kctrz depression screening assessmentGriseldamagdalene Dents DO Work Phone: Start: 02-03-6788Vkrcj depression screening assessment Merritt Thacker DO Work Phone: Start: 48-34-3245Ujsyy depression screening assessment Merritt Thacker DO Work Phone: Start: 86-43-3935Mrvmaqqavrng [Mass/volume] in Urine by Test Luther Lynneyosibharti DO Work Phone: Start: 45-96-2268UFS screeningDR DEVANG HOUSEComment on above:Performed By: #### TSH, LIPID, CMP, PSAD, T4 #### [facility] [address] [place] [address] Wanda Conrad Plan of Treatment DateCare ActivityDetailAuthorStart: 27-99-0565JLmW,Tdap and Td Vaccines (2 - Td or Tdap)DTaP,Tdap and Td Vaccines (2 - Td or Tdap)[facility] [employer] SystemStart: 70-39-7870Qvqjm BMI ScreeningAdult BMI ScreeningSalem [facility] SystemStart: 01-97-2992Ikncqor ScreeningTobacco ScreeningSalem Regional Medical Center SystemStart: 24-39-6187Twivj BMI ScreeningAdult BMI ScreeningSalem Regional Medical Center SystemStart: 89-50-2794Jrharbzwte ScreeningDepression ScreeningSalem Regional Medical Center SystemStart: 67-92-3391Invrsy Use: DiabeticStatin Use: DiabeticSalem Regional Medical Center SystemStart: 35-03-1737Hlgvbfo ScreeningTobacco ScreeningSalem Regional Medical Center SystemStart: 42-67-6844Bgall BMI ScreeningAdult BMI ScreeningSalem Regional Medical Center SystemStart: 34-10-9435Tjrptjailg ScreeningDepression ScreeningSalem Regional Medical Center SystemStart: 00-93-1118Xxzehmu ScreeningTobacco ScreeningSalem Regional Medical Center SystemStart: 10-22-7474Zrhrhdhkc vaccinationInfluenza VaccineSalem Regional Medical Center SystemStart: 74-48-5982Takih screening for proteinUrine MicroalbuminSalem Regional Medical Center System Start: 82-51-9287Otzbv BMI ScreeningAdult BMI ScreeningSalem Regional Medical Center System Start: 84-62-1791Fouoyynxsa ScreeningDepression ScreeningSalem Regional Medical Center System Start: 19-18-6490Nkncnfu ScreeningTobacco ScreeningSalem Regional Medical Center SystemStart: 01-03-2025 End: 60-08-7414Qxxditj encounter lxzyershu86/07/2025 1:00 PM EDT Office Visit [facility] [address] [place] [address] Merritt Thacker, DO [address] [id number] [facility] MedicineStart: 22-34-6550Jjuwsrxyhs Screening Depression ScreeningProMagruder Hospital SystemStart: 45-39-0476Zhvslay Screening Tobacco ScreeningProMagruder Hospital SystemStart: 12-15-6950Mwrvs BMI Screening Adult BMI ScreeningProMagruder Hospital SystemStart: 08-22-2639Cleummnumm Screening Depression ScreeningProMagruder Hospital SystemStart: 11-10-6724Qxajjde Screening Tobacco ScreeningProMount Carmel Health Systemtart: 09-03-2024 End: 17-20-0413Oepzfml encounter lonkzjjih01/07/2025 1:30 PM EDT Office Visit [facility] [address] [place] [address] Merritt Thacker, DO [address], [id number] [facility] MedicineStart: 40-74-9580Nllnmh Use: DiabeticStatin Use: DiabeticProMount Carmel Health Systemtart: 06-05-2024 End: 51-22-7646Vhzdyhf encounter deiexhqhj49/07/2025 1:00 PM EST Office Visit [facility] [address] [place] [address] Merritt Thacker, DO [address], [id number] [facility] MedicineStart: 02-29-2024 End: 18-08-6648Jredrsw encounter ixguqfoqz05/02/2024 12:45 PM EDT Office Visit [facility] [address] [place] [id number] Inna Jefferson, ASSOCIATE PROFESSOR OF PHILOSOPHY [address] [place] [address] Right shoulder pain, unspecified chronicity (Primary Dx)[facility] ORTHOPAEDICSComment on above:Right shoulder pain, unspecified chronicity (Primary Dx)Start: 02-21-2024 End: 04-16-0297Hivhrvr encounter /24/2024 3:00 PM EDT [facility] [address] [place] [address] Merritt Thacker, DO [address] [place], [place] [facility] MedicineStart: 08-48-2960Ecpwuoxgc vaccination Influenza VaccineProMagruder Hospital SystemStart: 01-16-2024 End: 11-30-4606Bfungtn encounter /19/2024 4:15 PM EDT [facility] [address] [place] [address] Merritt Thacker, DO [address] [facility], [id number] [facility] MedicineStart: 03-37-6059Ssxblgwv foot examination Diabetic Foot ExamProMagruder Hospital SystemStart: 54-11-6324Ulgqf screening for proteinUrine MicroalbuminProMagruder Hospital SystemStart: 01-81-6283Lxuqvydraonrbv of varicella zoster vaccineZoster (Shingles) Vaccine (1 of 2)[facility] SystemStart: 64-43-1959Jawmj BMI Follow Up PlanAdult BMI Follow Up PlanProMagruder Hospital SystemStart: 23-48-8912Fncgmdyf screeningDiabetic Ophthalmology Exam [facility] System End: 48-21-0001MRT W Auto Differential panel - BloodCBC auto differential Lab Routine Stage 3b chronic kidney disease (CMS-HCC) 1 Occurrences starting 0 01/16/2024 until 01/15/2025[facility] HospitalAl[facility] SystemComment on above:1 Occurrences starting 01/16/2024 until 01/15/2025ologuard Non-ProMedicaCologuard Non- [facility] Lab Routine Special screening for malignant neoplasm of colon Ordered: 09/03/2024[employer] Work Phone: Comment on above:Ordered: 09/03/2024 End: 51-25-6672Opeqjcmapqjlu metabolic 2000 panel - Serum or PlasmaComprehensive metabolic panel Lab Routine Hyperlipidemia, unspecified hyperlipidemia type 1 Occurrences starting 01/16/2024 until 01/15/2025[employer] Work Phone: Comment on above:1 Occurrences starting 01/16/2024 until 01/15/2025 End: 43-26-5692Kendhpkfth A1c/Hemoglobin.total in BloodHemoglobin A1c Lab Routine Type 2 diabetes mellitus without complication, without long-term current use of insulin ([facility]) 1 Occurrences starting 06/05/2024 until 06/05/2025 [facility] Work Phone: Comment on above:1 Occurrences starting 06/05/2024 until 06/05/2025Hemoglobin A1c/Hemoglobin.total in BloodHemoglobin A1c Lab Routine Type 2 diabetes mellitus without complication, without long-term current use of insulin ([facility]) 06/05/2024 5:50 PM [facility] End: 53-98-6479Vurthkrakh A1c/Hemoglobin.total in BloodHemoglobin A1c Lab Routine Type 2 diabetes mellitus without complication, without long-term current use of insulin ([facility]) 1 Occurrences starting 09/07/2023 until 09/06/2024 [facility] Work Phone: Comment on above:1 Occurrences starting 09/07/2023 until 09/06/2024Hemoglobin A1c/Hemoglobin.total in BloodHemoglobin A1c Lab Routine Type 2 diabetes mellitus without complication, without long-term current use of insulin ([facility]) 09/07/2023 11:28 PM [facility] End: 95-31-4887Sskulzsqvy A1c/Hemoglobin.total in BloodHemoglobin A1c Lab Routine Type 2 diabetes mellitus without complication, without long-term current use of insulin ([facility]) 1 Occurrences starting 01/16/2024 until 01/15/2025 [facility] SystemComment on above:1 Occurrences starting 01/16/2024 until 01/15/2025 End: 96-15-3875Wzeyr 1996 panel - Serum or PlasmaLipid profile Lab Routine Hyperlipidemia, unspecified hyperlipidemia type 1 Occurrences starting until 01/15/2025[facility] HospitalComment [facility] above:1 Occurrences starting 01/16/2024 until 01/15/2025 End: 36-97-3816Hbiwkmvng [Mass/volume] in Serum or PlasmaMagnesium Lab Routine Chronic combined systolic and diastolic CHF (congestive heart failure) ([facility]) 1 Occurrences starting 01/16/2024 until 01/15/2025[facility] Comment on above:1 Occurrences starting 01/16/2024 until 01/15/2025 End: 60-56-7430Ozoxtyjrkvje - Albumin: Creatinine Urine RatioMicroalbumin - Albumin: Creatinine Urine Ratio Lab Routine Type 2 diabetes mellitus without complication, without long-term current use of insulin ([facility]) 1 Occurrences starting 01/16/2024 until 01/15/2025[facility] [employer] Hawthorn CenterComment on above:1 Occurrences starting 01/16/2024 until 01/15/2025 Immunizations Immunization DateImmunizationNotesCare MataxzgxOossbrwh87-85-2677Cphvieoe trivalent influenza vaccine, adjuvanted, preservative freeMerritt Kirstie DO Work Phone: [facility] [employer] Fbieoi80-33-9160Mhbrxbxukosz, In Clinic,; Translations: [Drug or medicament (substance)]Merritt Thacker DO Work Phone: [facility] [employer] Cajxxt05-58-2577ukofdaxve virus vaccine, unspecified formulationMerritt Filipes DO Work Phone: [facility] [employer] Tnndyp04-12-5912lspnjmwru, injectable, quadrivalent, preservative freeMerritt Filipes DO Work Phone: [facility] Eeblwg58-69-7175wtaeaxj toxoid, reduced diphtheria toxoid, and acellular pertussis vaccine, adsorbedJomagdalene Thacker DO Work Phone: [facility] HospitalUovpyf65-24-3742wrcglcwvd virus vaccine, unspecified formulationJomagdalene Thacker DO Work Phone: [facility] Payers DatePayer CategoryPayerPolicy ID2025Medicare O [id number] [id number] [id number] [id number]-bzd67-37-4343Qrywkfz [id number] 2..840.1.422264.3.57[id number] 2.16840.1.800552.3.57[id number] 2.16.840.1.293675.3.57[id number] 2.16.840.1.669650.3.57[id number] 2..840.1.066169.3.579.2.757129-08-3823Uykltyy16151 2.16.840.1.809250.3.57[id number] 2.16.840.1.001511.3.579.[id number] 2.16.840.1.889080.3.57[id number] 2.16840.1.441362.3.57[id number] 2..840.1.263441.3.57[id number] 2.16.840.1.218069.3.579.[id number] 2..840.1.603440.3.57[id number] 2.16.840.1.308601.3.57[id number] 2.840.1.562159.3.57[id number] 2.840.1.880762.3.57[id number] 2.0.1.393050.3.57[id number] 2.840.1.278329.3.579.2.822527-16-1251JgebjlnFNB878O03834QdwgymgCvpkeci [id number] 2.840.1.787202.3.579.2.531 Social History DateTypeDetailFacilityStart: 01-10-2023 End: 80-13-5866Ufjitrj smoking status NHISNever smoked tobaccoNOMS Healthcare Start: 01-10-2023 End: 96-75-6796Nitgnoe use and exposureSmokeless tobacco non-userNOMS Healthcare Start: 06-09-2023 End: 49-61-3308Viriptj intakeCurrent drinker of alcohol (finding)[facility] Start: 07-10-2020 End: 86-22-6694Lddssrz of Social functionNOMD HealthcareStart: 07-10-2020 End: 08-31-1135Pcovvfk use panelGARFIELD MEMORIAL [facility]OSP[facility] HealthcareStart: 69-46-1437Ajx Assigned At BirthNot on [facility] depression screening assessment0 [facility] Hospitaltart: 89-25-5010Mbcgxvh CommentrarePReplaced by [facility] Ansontart: 33-42-8697EefCwzm (finding)[facility] Clinical Notes 06-17-2023 to 02-15-2025 Note Date & ZxglApbkXgwhlowx86-50-5288 Miscellaneous Notes* Telephone Encounter - Noemi Caraballo [...] Comments: Left message for patient to contact companion caregiver. Patient is overdue with cologuard order. Will send letter to patient. documented in this encounterK[facility] Hospital09-19-2025 Telephone encounter Note* Telephone Encounter [...] Comments: Left message for patient to contact companion caregiver. Patient is overdue with cologuard order. Will send letter to patient. [facility]08-25-2025 NoteSUBJECTIVE Reason for Visit: Cristobal Garcia is a 59 y.o. year old male patient being seen for heart failure hospital follow-up. HPI: Cristobal Garcia is a 59 y.o. year old male with significant medical history of heart failure with preserved ejection fraction, hypertension, diabetes type 2, hyperlipidemia, and JACQUE. Recently admitted at [facility] 12/31/2024 for SOB, acute on [...] ago, he is unsur (more content not included)...[facility]04-07-2025 History of Present illness Narrative* Merritt Thacker, DO - 09/03/2024 1:30 PM EDT IM PROGRESS NOTE Patient - Cristobal Garcia Age - 58 y.o. - 1965 ASSESSMENT & PLAN 1. Type 2 diabetes mellitus without complication, without long-term current use of insulin ([facility]) (Primary) - goals of treatment [...] heart failure) ([facility]) - symptoms are stable -GDMT: [...] exam was: 2024. Recently referred Ophthalmology in [place], and may need surgery done at [facility] Patient BP monitoring is done [...] (!) 186.3 kg (410 lb 12.8 oz) MxE984% BMI 66.30 kg/m Physical Exam Vitals reviewed. [...] Testing No results found. Merritt Thacker DO., [facility] Phys[facility] Office: [phone] documented in this encounterKettering [facility] Hospital01-09-2025 Miscellaneous Notes* Telephone Encounter - [facility] Levirodrigo - 06/07/2024 1:18 PM EST Called for pat assist, need proof of income, insurance card and signature documented in this encounterKettering [facility] Hospital01-09-2025 Telephone encounter Note* Telephone Encounter - [facility] Jaimee - 06/07/2024 1:18 PM EST Called for pat assist, need proof of income, insurance card and signature [facility]01-07[facility] History of Present illness Narrative* Merritt Thacker DO - 06/05/2024 1:00 PM EST IM PROGRESS NOTE Patient - Cristobal Garcia Age - 58 y.o. - 1965 ASSESSMENT & PLAN 1. Type 2 diabetes mellitus without complication, without long-term current use of insulin ([facility]) (Primary) -goals of treatment reviewed [...] systolic and diastolic CHF (congestive heart failure) ([facility] -has gained weight -needs to restart his [...] 90 tablet; Refill: 0 3. Obesity, morbid ([facility]) -this plays a major role in his diabetes and heart failure -consider adding G LP 1 agent in addition to current regimen 4. Stage 3b chronic kidney disease ([facility]) -GFR ranges 46-76 over the past year [...] Testing No results found. Merritt Thacker DO., [facility] Office: [phone] documented in this encounterKettering [facility] Hospital10-04-2024 Telephone encounter Note* Telephone Encounter - Jieallie Murillo - 03/02/2024 1:41 PM EDT Called and left vm for patient. [facility] [id number] Miscellaneous Notes* Telephone Encounter - Jieallie Murillo - 03/02/2024 1:41 PM EDT Called and left vm for patient. * Telephone Encounter - Jie Murillo - 03/01/2024 1:54 PM EDT 's office called regarding a referral they received. is not accepting new patients at this time. Please advise. documented in this encounterMissouri Baptist Medical [id number] Telephone encounter Note* Telephone Encounter - Jie Murillo - 03/01/2024 1:54 PM EDT 's office called regarding a referral they received. is not accepting new patients at this time. Please advise. [facility] [id number] History of Present illness Narrative* Inna Jefferson [...] prn. He notes he never heard from [facility] pain management, will send him back for eval of his bilateral knees for possible visco supplementation He notes since he came off his nsaids by his pcp his bilateral ankle and knees have been bothering him. Will send to dr. Payne, he is looking for ankle injections documented in this encounterMissouri Baptist Medical [id number] History of Present illness Narrative* Merritt Thacker, DO - 02/21/2024 3:00 PM EDT IM PROGRESS NOTE Patient - Cristobal Garcia Age - 58 y.o. - 1965 ASSESSMENT & PLAN 1. Type 2 diabetes mellitus without complication, without long-term current use of insulin ([facility] -I reviewed the results of the recent [...] systolic and diastolic CHF (congestive heart failure) ([facility]) -GDMT includes ARB (losartan), beta-bishop (carvedilol), spironolactone [...] Testing No results found. Merritt Thacker DO., [facility] Office: [phone] documented in this encounterKettering Memorial Hospital08-19-2024 History of Present illness Narrative* [...] post discharge medication. He was discharged from [facility] after being admitted for acute on [...] a daily basis. He ran out of [employer] and is taking his old furosemide. In [...] for home nocturnal oxygen. Request sent to [employer]. Diagnoses and all orders for this visit: Chronic combined systolic and diastolic CHF (congestive heart failure) ([facility]) - aspirin 81 mg chewable tablet; Chew [...] complication, without long-term current use of insulin ([facility]) - Hemoglobin A1c; Future - Microalbumin - [...] before bedtime. Stage 3b chronic kidney disease ([facility]) - CBC auto differential; Future Hyperlipidemia, unspecified hyperlipidemia type - Comprehensive metabolic panel; Future - Lipid profile; Future documented in this encounterSumma HealthRoyalty Exchange Garden City [id number] Miscellaneous Notes* Telephone Encounter - Eneida Lane CMA - 01/09/2024 4:59 PM EDT Alyssa from [facility] called wanting to know if you would follow this pt for home health care as he was discharged today from [facility] * Telephone Encounter - Merritt Thacker DO [...] EDT Message noted. Yes documented in this encounterKettering Memorial Hospital08-12-2024 Telephone encounter Note* Telephone Encounter - Eneida Lane CMA - 01/09/2024 4:59 PM EDT Alyssa from [facility] called wanting to know if you would follow this pt for home health care as he was discharged today from [facility]08[facility]12[facility] Telephone encounter Note* Telephone Encounter - Merritt Thacker DO - 01/09/2024 4:59 PM EDT Message noted. Yes [facility]08-12-2024 Telephone encounter Note* Telephone Encounter - Merritt Thacker DO - 01/09/2024 4:59 PM EDT Message noted. Yes. He will need a TCM [facility]08-12-2024 Telephone encounter Note* Telephone Encounter - Blanca Hermosillo - 01/09/2024 4:59 PM EDT He comes in 01/15 is that okay [facility]08-12-2024 Telephone encounter Note* Telephone Encounter - Merritt Thacker DO - 01/09/2024 4:59 PM EDT Message noted. Yes [facility]08-05-[facility] History of Present illness Narrative* [...] post discharge medication. Patient was discharge from [facility] on 12/19/2023 after being admitted [...] allhis symptoms since he was discharged from [facility], and actually feels worse. It [...] heart failure ([facility]) - I advised the patient that he needs to be admitted to the hospital to re- evaluate his current medical regimen, particularly with an eye toward starting SGLT2 agent, Entresto, spironolactone. I phoned to the [facility], but no rooms are available and patient is are being boarded in the ER. I advised the patient to had directly to the [place] ER for readmission at this time. Essential hypertension - overall control today. -no changes. Treatment for congestive heart failure will involve controlling hypertension Stage 3b chronic kidney disease ([facility]) - need to reassess renal function given his description of ice tea urine - admit to hospital as above Type 2 diabetes mellitus without complication, without long-term current use of insulin ([facility]) - previously on Rybelsus plus metformin - currently only on metformin, which given his kidney disease may not be the best choice - probably needs SGLT2 agent given his heart failure and diabetes - this will be evaluated during admission Obesity, morbid ([facility]) - BMI 68 - some of this may be water weight. Needs to be addressed during admission. documented in this encounterKettering Memorial Hospital07-29-2024 Miscellaneous Notes* Telephone Encounter - Blanca Hermosillo - 12/26/2023 4:08 PM EDT ----- Message from Dr. Merritt Thacker DO sent at 09/07/2023 7:47 PM EDT ----- DM recheck * Telephone Encounter - Blanca Hermosillo - 12/26/2023 4:08 PM EDT Pt hung up documented in this encounterKettering Memorial Hospital07-29-2024 Telephone encounter Note* Telephone Encounter - Blanca Hermosillo - 12/26/2023 4:08 PM EDT ----- Message from Dr. Merritt Thacker DO sent at 09/07/2023 7:47 PM EDT ----- DM recheck [facility]07-29-20[facility] Telephone encounter Note* Telephone Encounter - Blanca Hermosillo - 12/26/2023 4:08 PM EDT Pt hung up [facility]07-17-2024 Miscellaneous Notes* Telephone Encounter - [...] Patient notified and understands. documented in this encounterKettering Memorial Hospital07-17-2024 Telephone encounter Note* Telephone Encounter - Selma Quijano CMA - 12/14/2023 1:39 PM EDT Patient called and stated he is retaining fluid in his abdomen area and it is making him so SOB. What do you suggest he do? [facility]07-17-[facility] Telephone encounter Note* Telephone Encounter - Merritt Thacker DO - 12/14/2023 1:39 PM EDT Message noted. I have no room for him today He will need to go to the ED [facility]07-17-2024 Telephone encounter Note* Telephone Encounter - Selma Quijano CMA - 12/14/2023 1:39 PM EDT Patient notified and understands. [facility]04-18-[facility]24 Miscellaneous Notes* Telephone Encounter - Nitza Oneal CMA - 09/15/2023 10:15 AM EDT Pt called and states he was wondering if his sample of RYBELSUS was ready. It is and he states he will pick it up. * Telephone Encounter - Blanca Hermosillo - 09/15/2023 10:15 AM EDT Picked up documented in this encounterKettering Memorial Hospital04-18-2024 Telephone encounter Note* Telephone Encounter - Nitza Oneal CMA - 09/15/2023 10:15 AM EDT Pt called and states he was wondering if his sample of RYBELSUS was ready. It is and he states he will pick it up. [facility]04-18-[facility] Telephone encounter Note* Telephone Encounter - Blanca Hermosillo - 09/15/2023 10:15 AM EDT Picked up [employer]04-10-2024 History of Present illness Narrative* Merritt Thacker, DO - 09/07/2023 1:00 PM EDT IM PROGRESS NOTE Patient - Cristobal Garcia Age - 57 y.o. - 1965 [facility] # - [id number] ASSESSMENT & PLAN 1. Type 2 diabetes mellitus without complication, without long-term current use of insulin ([facility]) - Goals of treatment reviewed with patient - Currently on metformin and sitagliptan - Repeat A1c to assess efficacy of treatment. Might be better with GLP-1 and SGLT-2 agents - Comprehensive metabolic panel; Future - Hemoglobin A1c; Future - Lipid profile; Future 2. Stage 3b chronic kidney disease ([facility]) - Repeat GFR - Renal protective strategies reviewed with patient. - Advised patient to stop voltaren tablets - May benefit from SGLT-2 3. Essential hypertension - Goals reviewed with patient - Currently taking losartan 50 mg daily - No change today 4. Class 3 severe obesity due to excess calories with serious comorbidity and body mass index (BMI)of 60.0 to 69.9 in adult ([facility]) - We reviewed importance of weight loss [...] Testing No results found. Merritt Thacker DO., [facility] Office: [phone] documented in this encounterKettering Memorial Hospital01-19-2024 Telephone encounter Note* Telephone Encounter - [facility] July - 06/17/2023 9:18 AM EST Sarah, patient called stated that he received two refund checks from [employer]. He deposited the checks and then was told from his bank that they bounced. If you could look into this for me please, all I am seeing is that the refunds were sent out. Call back # [phone] [facility] [id number] Miscellaneous Notes* Telephone Encounter - [facility] July - 06/17/2023 9:18 AM EST Sarah, patient called stated that he received two refund checks from [employer]. He deposited the checks and then was told from his bank that they bounced. If you could look into this for me please, all I am seeing is that the refunds were sent out. Call back # [phone] documented in this encounterNOMD HealthcareEvaluation note* Diagnosis Right shoulder pain, unspecified chronicity- Primary Chronic pain of both knees Chronic pain of both ankles Impingement of right shoulder documented in this encounter [facility]* Diagnosis Type 2 diabetes mellitus without complication, without long-term current use of insulin ([facility] Primary Chronic combined systolic and diastolic CHF (congestive heart failure) ([facility]) Obesity, morbid ([facility]) Morbid obesity Stage 3b chronic kidney disease ([facility]) Encounter for screening for malignant neoplasm of prostate Encounter for immunization Primary osteoarthritis of right shoulder Non-seasonal allergic rhinitis, unspecified trigger documented in this encounter [facility]* Diagnosis Type 2 diabetes mellitus without complication, without long-term current use of insulin ([facility]) documented in this encounter [facility]* Diagnosis Acute on chronic systolic congestive heart failure ([facility] Primary Essential hypertension Unspecified essential hypertension Stage 3b chronic kidney disease ([facility]) Type 2 diabetes mellitus without complication, without long-term current use of insulin ([facility]) Obesity, morbid ([facility]) Morbid obesity documented in this encounter [facility]* Diagnosis Type 2 diabetes mellitus without complication, without long-term current use of insulin ([facility] Primary Stage 3b chronic kidney disease ([facility]) Essential hypertension Unspecified essential hypertension Class 3 severe obesity due to excess calories with serious comorbidity and body mass index (BMI) of60.0 to 69.9 in adult ([facility]) Immunization due documented in this encounter [facility]* Diagnosis Chronic combined systolic and diastolic CHF (congestive heart failure) ([facility]) - Primary Type 2 diabetes mellitus without complication, without long-term current use of insulin ([facility]) Primary osteoarthritis of right shoulder Stage 3b chronic kidney disease ([facility]) Hyperlipidemia, unspecified hyperlipidemia type documented in this encounter [facility]* Diagnosis Type 2 diabetes mellitus without complication, without long-term current use of insulin ([facility] Primary Chronic combined systolic and diastolic CHF (congestive heart failure) ([facility]) Primary osteoarthritis of right shoulder Chronic right shoulder pain Pain in joint, shoulder region Primary osteoarthritis of both ankles documented in this encounter [facility]* Diagnosis Type 2 diabetes mellitus without complication, without long-term current use of insulin ([facility]) documented in this encounter [facility]* Diagnosis Type 2 diabetes mellitus without complication, without long-term current use of insulin ([facility] Primary Special screening for malignant neoplasm of colon Special screening for malignant neoplasms, colon Chronic combined systolic and diastolic CHF (congestive heart failure) ([facility]) Non-seasonal allergic rhinitis, unspecified trigger Primary osteoarthritis of right shoulder documented in this encounter [facility]* Diagnosis Type 2 diabetes mellitus without complication, without long-term current use of insulin ([facility]) Non-seasonal allergic rhinitis, unspecified trigger [...] Diagnoses Chronic pain of both ankles Procedures NV OFFICE/OUTPATIENT NEW HIGH MDM 60 MINUTES Inna Jefferson NP [address] [place] [address] Ivan Payne MD [address] [place] [address] [place] [address] Referral IDStatusReasonStart DateExpiration DateVisits RequestedVisits [id number] Review Specialty Services Required * Consultation (Routine) - Pending ReviewSpecialtyDiagnoses / ProceduresReferred By ContactReferred To ContactPain Medicine Diagnoses Chronic pain of both knees Procedures NV OFFICE/OUTPATIENT NEW HIGH MDM 60 MINUTES Inna Jefferson NP [address] [place] [address] Karel Blackwell MD [address] [place] [address] Referral IDStatusReasonStart DateExpiration DateVisits RequestedVisits [id number] Review Specialty Services Required * Clinic-Administered Medication (Routine) - AuthorizedSpecialtyDiagnoses / ProceduresReferred By ContactReferred To ContactOrthopaedic Surgery Diagnoses Impingement of right shoulder Procedures L Inj/Asp: R subacromial bursa Inna Jefferson NP [address] [facility] [address] [place] [address] Referral IDStatusReasonStart DateExpiration DateVisits RequestedVisits [id number] GABY Paz for referral (narrative)* Consultation (Routine) - Pending ReviewSpecialtyDiagnoses / ProceduresReferred By ContactReferred To Contact Orthopedic Surgery / MED-SURG/ORTHOPEDICS Diagnoses Primary osteoarthritis of right shoulder Chronic right shoulder pain Primary osteoarthritis of both ankles Merritt Thacker DO [address] [place] [address] Kaveh Mayer DO [address] [facility] [address] [place] [address] Referral IDStatusReasonStart DateExpiration DateVisits RequestedVisits [id number] Review Specialty Services Required [facility] [...] of insulin ([facility]) Merritt Thacker DO [address] [place] [address] Referral IDStatusReasonStart DateExpiration DateVisits RequestedVisits [id number] Additional Source Comments (unrecognized sect ion and content) No Status Records FoundNo Status Records FoundNo Status Records FoundNo Status Records FoundNo Status Records FoundNo Status Records Found INFORMATION SOURCE (unrecogn ized section and content) DATE CREATED AUTHOR 10/11/2020 [facility] DATE CREATED AUTHOR AUTHOR'S ORGANIZ ATION 07/03/2022 [facility] DATE CREATED AUTHOR AUTHOR'S ORGANIZ ATION 03/02/2024 [facility] EPIC DATE CREATED AUTHOR AUTHOR'S ORGANIZ ATION 09/05/2024 [facility] DATE CREATED AUTHOR AUTHOR'S ORGANIZ ATION 09/05/2024 [facility] DATE CREATED AUTHOR AUTHOR'S ORGANIZ ATION 01/22/2025 [facility] Reason for Visit (unrecogniz ed section and content) ReasonOnset DateCommentsRefund [id number]lty Diagnoses / ProceduresReferred By ContactReferred To ContactOrthopaedic Surgery Diagnoses Primary osteoarthritis of right shoulder Chronic right shoulder pain Primary osteoarthritis of both ankles Procedures AMB REFERRAL TO ORTHOPEDIC SURGERY Merritt Thacker MD [address] [place] [address] Kaveh Mayer DO [address] [facility] [address] [place] [address] Referral IDStatusReasonStart DateExpiration DateVisits RequestedVisits [id number] DateCommentsReferral 4ReasonCommentsHypertensionHyperlipidemiacvReasonOnset DateCommentsMed [id number] and swelling belly on downNo feverReason CommentsDiabetesStomach some hard skinReasonCommentsFollow-upReasonComments DiabetesReasonCommentsMed RefillReasonCommentsDiabetesReasonOnset DateComments Colon Cancer Pprkpyzjz27/19/2025 Care Teams (unrecognized sec tion and content) Team MemberRelationshipSpecialtyStart DateEnd Date Merritt Thacker MD [address] [place] [address] PCP - GeneralInternal Drfoquqh40/30/23Team MemberRelationshipSpecialtyStart Date End Date Merritt Thacker MD [address] [place] [address] PCP - GeneralInternal Wjmnnxuy63/30/23Team MemberRelationshipSpecialtyStart Date End Date Merritt Thacker MD [address] [place] [address] PCP - GeneralInternal Kxkeekto21/30/23Team MemberRelationshipSpecialtyStart Date End Date Merritt Thacker MD [address] [place] [address] PCP - GeneralInternal Nghkwlgz15/30/23Team MemberRelationshipSpecialtyStart Date End Date Merritt Thacker DO [address] [place] [address] PCP - GeneralInternal Medicine01/12/23Team MemberRelationshipSpecialtyStart Date End Date Juan AntonioyosiMerritt hay DO [address] [place] [address] PCP - GeneralInternal Medicine01/12/23Team MemberRelationshipSpecialtyStart Date End Date Merritt Thacker, DO [address] [place] [address] PCP - GeneralInternal Medicine01/12/23Team MemberRelationshipSpecialtyStart Date End Date Merritt Thacker DO [address] [place] [address] PCP - GeneralInternal Medicine01/12/23Team MemberRelationshipSpecialtyStart Date End Date Merritt Thacker, DO [address] [place] [address] PCP - GeneralInternal Medicine01/12/23Team MemberRelationshipSpecialtyStart Date End Date Merritt Thacker, DO [address] [place] [address] PCP - GeneralInternal Medicine01/12/23Team MemberRelationshipSpecialtyStart Date End Date Merritt Thacker, DO [address] [place] [address] PCP - GeneralInternal Medicine01/12/23Team MemberRelationshipSpecialtyStart Date End Date Merritt Thacker DO [address] [facility] [place] [address] [facility]01/12/23[facility] MemberRelationshipSpecialtyStart Date End Date Merritt Thacker DO [address] [facility] [place] [address] [facility]01/12/23[facility] MemberRelationshipSpecialtyStart Date End Date Merritt Thacker DO [address] [facility] [place] [address] [facility]01/12/23[facility] MemberRelationshipSpecialtyStart Date End Date Merritt Thacker DO [address] [facility] [place] [address] [facility]01/12/23[facility] MemberRelationshipSpecialtyStart Date End Date Merritt Thacker DO [address] [facility] [place] [address] [facility]01/12/23 FOR RECORDS PERTAINING TO PATIENTS WHO [...] BE BASED ON THE PRIMARY CLINICAL RECORDS. [facility] [employer] [facility]. provides no warranty or guarantee of the accuracy or completeness of information in this document.
[2025-04-15 19:49] LABS: Hematocrit 44.4 % (42.0-54.0); Hemoglobin 13.3 g/dL (14.0-18.0)
[2025-04-15] MEDS: ALBUMIN HUMAN 25 GM/100 ML PREMIX IV (21:14)
[2025-04-15] MEDS: PANTOPRAZOLE SODIUM 40 MG VIAL IV (21:14)
[2025-04-15] MEDS: ENOXAPARIN SODIUM 60 MG/0.6 ML SYRINGE SUBQ (21:14)
[2025-04-15] MEDS: CARVEDILOL 12.5 MG TABLET PO (21:15)
[2025-04-15] MEDS: ATORVASTATIN CALCIUM 40 MG TABLET PO (21:44)
[2025-04-15] MEDS: FUROSEMIDE 20 MG/2 ML VIAL IVP (21:49)
[2025-04-15] MEDS: INSULIN ASPART 300 UNIT/3 ML PEN SUBQ (21:51)
[2025-04-16] VITALS (59 sets, daily range): BP systolic 92–158; BP diastolic 57–91; PULSE 56–71; RESP 16; TEMP 36.5–36.7; O2SAT 85–98
[2025-04-16] MEDS: ACETAMINOPHEN 325 MG TABLET 650 MG PO (02:38)
[2025-04-16 03:09] LABS: Glucose Urine UA NEGATIVE (NEGATIVE)
[2025-04-16 03:12] LABS: Cast Seen? SEEN #/LPF (NONE SEEN); Crystals Seen? None Seen #/HPF (None Seen); Urine Culture Indicated NO
[2025-04-16] MEDS: PANTOPRAZOLE SODIUM 40 MG TABLET.DR PO (05:45)
[2025-04-16 05:53] LABS: Hematocrit 40.9 % (42.0-54.0); Hemoglobin 12.3 g/dL (14.0-18.0); Immature Granulocytes Abs Auto 0.02 10^3/uL (0.00-0.03); Immature Granulocytes Pct Auto 0.5 % (0.0-0.5); Lymphocytes Absolute Auto 0.5 10^3/uL (1.2-3.8); Mean Corpuscular HGB Conc 30.1 g/dL (29.9-35.2); Mean Corpuscular Hemoglobin 25.8 pg (25.9-34.0); Mean Corpuscular Volume 85.7 fL (80.0-94.0); Platelet Count 109 10^3/uL (150-450); Red Blood Count 4.77 10^6/uL (4.70-6.10); White Blood Count 4.0 10^3/uL (4.0-11.0)
[2025-04-16 06:08] LABS: Alanine Aminotransferase 60 U/L (16-63); Albumin Globulin Ratio 1.2; Albumin Level 3.4 g/dL (3.4-5.0); Alkaline Phosphatase 85 U/L (46-116); Anion Gap 11.0; Aspartate Amino Transferase 15 U/L (15-37); Calcium 8.5 mg/dL (8.5-10.1); Carbon Dioxide 33.4 mmol/L (21.0-32.0); Chloride 101 mmol/L (98-107); Estimated GFR (African America 46 (>=60 mL/min/1.73m^2); Estimated GFR (Non-African Ame 38 (>=60 mL/min/1.73m^2); Globulin 2.9 g/dL; Glucose 231 mg/dL (74-106); Magnesium 2.4 mg/dL (1.8-2.4); Potassium 4.4 mmol/L (3.5-5.1); Sodium 141 mmol/L (136-145); Total Protein 6.3 g/dL (6.4-8.2)
[2025-04-16 06:19] LABS: Blood Urea Nitrogen 76.0 mg/dL (7.0-18.0)
[2025-04-16] MEDS: INSULIN ASPART 300 UNIT/3 ML PEN SUBQ ×2 (07:24→11:18)
[2025-04-16] MEDS: ASPIRIN 81 MG TAB.CHEW PO (08:26)
[2025-04-16] MEDS: GLIMEPIRIDE 2 MG TABLET PO (08:26)
[2025-04-16] MEDS: ENOXAPARIN SODIUM 60 MG/0.6 ML SYRINGE SUBQ ×2 (08:27→21:03)
[2025-04-16] MEDS: CARVEDILOL 12.5 MG TABLET 6.25 MG PO ×2 (08:27→21:03)
--- NOTE | 2025-04-16 08:30 | CM.NOTE ---
Rounds made with Dr. Castillo, discussed plan of care with pt. Pt inpatient status. Pt off vapotherm this am and on NC, pt does have home oxygen. Continue treatment as ordered.
--- NOTE | 2025-04-16 09:03 | SWNOTE1 ---
Pt was just set up with home oxygen in December of 2024 and he is supposed to wear 2 liters continuous. It is from [facility].
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
--- NOTE | 2025-04-16 09:35 | SWNOTE1 ---
SW met with pt to discuss dc needs. Pt lives at home by himself. Pt uses a walker at home and does have home oxygen at 2 liters continuous from [facility]. SW asked pt if he wears his home oxygen all the time? Pt stated when he is just sitting on the couch, he does not feel he has to wear it as he is not short of breath. Pt stated he feels fine. SW did let pt know that therapy will be in to evaluate him and if they have any recommendations, SW will be back to discuss. Pt refused HH the last few admissions. He stated if they offer home health, he does not want it. SW to follow as needed.
[2025-04-16] MEDS: FUROSEMIDE 40 MG/4 ML VIAL IVP (10:34)
[2025-04-16] MEDS: SPIRONOLACTONE 25 MG TABLET PO (10:35)
[2025-04-16] MEDS: HYDROCODONE/ACET 5-325 MG TABLET 1 TAB PO ×2 (10:36→19:38)
--- NOTE | 2025-04-16 12:04 | SWNOTE1 ---
SW spoke with pt about recommendations of going to a [facility] facility for a short time to get his strength built back up. Pt stated he is not doing that. At this time pt refusing SNF. SW asked about home health services. SW advised HH would just come a few days of the week to do therapy and a nurse maybe once or twice a week for a short time to make sure the transition home is going well. Pt voiced he will think about it. [place] at home. He voiced he does not like other people coming in to his home. He just wants to be home alone with his dog. SW advised that we are trying to provide him with as many resources as possible to try to prevent re-admission to hospital. SW asked if he would be able to get a ride to and from outpt therapy? Pt stated it would be very hard to him to arrange and it takes a lot for him to get in and out of car as well. Pt voiced appreciation of offering services and he will think about home health. SW to stop by tomorrow as well.
[2025-04-16] MEDS: FUROSEMIDE 20 MG/2 ML VIAL IVP ×2 (14:41→17:03)
[2025-04-16] MEDS: MIDODRINE HCL 5 MG TABLET PO (19:38)
[2025-04-16] MEDS: ATORVASTATIN CALCIUM 40 MG TABLET PO (21:03)
[2025-04-17] VITALS (32 sets, daily range): BP systolic 99–116; BP diastolic 62–73; PULSE 57–69; RESP 16; TEMP 36.6; O2SAT 90–100
[2025-04-17 06:12] LABS: Anion Gap 7.5; Calcium 8.3 mg/dL (8.5-10.1); Carbon Dioxide 34.1 mmol/L (21.0-32.0); Chloride 104 mmol/L (98-107); Estimated GFR (African America 47 (>=60 mL/min/1.73m^2); Estimated GFR (Non-African Ame 38 (>=60 mL/min/1.73m^2); Glucose 66 mg/dL (74-106); Potassium 3.6 mmol/L (3.5-5.1); Sodium 142 mmol/L (136-145)
[2025-04-17 06:22] LABS: Blood Urea Nitrogen 78.0 mg/dL (7.0-18.0)
[2025-04-17] MEDS: PANTOPRAZOLE SODIUM 40 MG TABLET.DR PO (06:28)
[2025-04-17] MEDS: GLIMEPIRIDE 2 MG TABLET PO (08:04)
[2025-04-17] MEDS: CARVEDILOL 12.5 MG TABLET 6.25 MG PO (08:04)
[2025-04-17] MEDS: ASPIRIN 81 MG TAB.CHEW PO (08:04)
[2025-04-17] MEDS: SPIRONOLACTONE 25 MG TABLET PO (08:04)
[2025-04-17] MEDS: ENOXAPARIN SODIUM 60 MG/0.6 ML SYRINGE SUBQ (08:04)
--- NOTE | 2025-04-17 09:05 | CM.NOTE ---
Rounds made with Dr. Castillo, pt will discharge to home today. Discussed with pt again regarding sleep study and HH services, pt continues to refuse both at discharge. CM back in to see pt to discuss buttermaker affects of sleep apnea. Pt verbalizes understanding and refuses. Pt does have home oxygen and refusing all other services including sleep study, HH or jail at discharge.
--- NOTE | 2025-04-17 11:30 | SWNOTE1 ---
See case management note. Pt is discharged today and refused all services at discharge.
--- NOTE | 2025-04-17 11:33 | PT.DAILY ---
Physical Therapy Daily Note PT Daily Note/Assess Start: 04/16/25 11:39 Freq: Status: Active Protocol: Document 04/17/25 11:28 VALDEMAR (Rec: 04/17/25 11:31 VALDEMAR [id number]) Physical Therapy Daily Note/Assessment Time In/Time Out Time In 11:15 Time Out 11:25 Pain In Pain N/A Pain Out Pain N/A Subjective Subjective Pt sitting EOB upon arrival. Planned dc to home this afternoon. Pt needs motivation for participation on this date. Agrees to bed level ex initially. Spo2 94% upon arrival on 2L O2 through [place]. Therapeutic Exercise Time Therapeutic Exercise 5 Minutes (minutes) Therapeutic Exercise 1 Units Therapeutic Exercise Treatment Therapeutic Exercise Seated AP (limited range L LE) LAQ, marches (small Treatment range), GS, abduction step outs 10x ea - increased time to complete. Therapeutic Activity Time Therapeutic Activity 4 Minutes (minutes) Therapeutic Activity 0 Units Therapeutic Activity Treatment Chair Transfer Standby Assistance Ability Therapeutic Activity Functional sit>stands 3x performed from EOB to RW - Comments slowly but able to perform without outside support. Static standing ea attempt 10-15 sec. No LOB. Remains sitting EOB with call light within reach and needs met. Total Physical Therapy Time Total Therapy 9 Minutes Total Physical 1 Therapy Units Summary Daily Note Summary Spo2 drops to 91% with activity on 2L. No outside assistance for transfers. Planned dc this afternoon.
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
--- NOTE | 2025-04-17 12:49 | CM.NOTE ---
Duncan briseno received from Dr. Castillo for BMP q week x3 weeks. Lab requisition completed and signed by Dr. Castillo. Lab requisition given to pt and faxed to lab. Pt verbalizes understanding of importance of labs.
--- NOTE | 2025-04-17 12:51 | CM.NOTE ---
Dr. Castillo sent tiger txt to set pt up for sleep study at discharge, faxed paperwork to sleep lab. Discussed with pt importance of sleep study, pt verbalizes understanding but unsure if he will complete study.
--- NOTE | 2025-04-17 13:31 | CM.NOTE ---
Sleep study faxed and pt given order. Pt verbalizes understanding. CM discussed with pt sleep study and answered questions.
--- NOTE | 2025-04-17 14:12 | SWNOTE1 ---
SW received a call from nurse and pt has not been able to get ahold of family/friends for a ride. SW called and set up [employer] transportation, with oxygen and wheelchair. [employer] will be here between 5-5:30 to take patient home. They did ask if door will be unlocked and if someone would be at home to assist. SW to find out. SW let nurse know. SW spoke to pt and let him know [employer] would be here between 5-5:30. He voiced he was on phone with his aryan and his aryan was trying to call his cousin to see if someone could get him. His aryan should be calling him back in about 10 minutes. SW to follow back up. SW did ask if he had a arellano to his house or if it was unlocked, he stated he had a arellano. SW asked if someone could be at the home when he arrives to assist with oxygen. Pt is working on it.
--- NOTE | 2025-04-17 14:36 | SWNOTE1 ---
SW stopped back in and spoke with pt and his aryan will meet him at his home and he is going to stick with [employer] taking him home. [employer] will be here at 5:30.
--- NOTE | 2025-04-17 16:06 | SWNOTE1 ---
SW spoke to CM and pt now has a ride and trips can be cancelled. CM tried calling [employer] several times and left messages. [employer] did call med/surge floor and the ride was cancelled.
--- NOTE | 2025-04-18 13:21 | CM.DCFOLLOWU ---
Person spoke with: Cristobal How are you feeling? Good How is your pain? Better Did you understand your discharge instructions? Yes Do you have any questions about your discharge instructions? No Were you given any prescriptions at discharge? Yes Were you able to get your prescriptions filled? Not yet Do you understand how to take your medications as ordered? Yes Do you have any questions about your follow up appointment and do you plan to keep your follow up appointment? No questions and yes he plans on keeping his follow up appts Is there anything else that you would like to discuss? No Questions/Comments/Concerns/Other:
== END 2025-04-17 16:22 | disposition home or self-care (01) | DRG 189 ==
LOC: ER 16:58 → MS 17:02
PROVIDERS: Admitting Provider Internal Medicine; Emergency Provider Emergency Medicine; PCP Family Medicine; Visit Provider Internal Medicine
DX: J96.22 Acute and chronic respiratory failure with hypercapnia (principal); I50.33 Acute on chronic diastolic (congestive) heart failure; I13.0 Hypertensive heart and chronic kidney disease with heart failure and stage 1 through stage 4 chronic kidney disease, or unspecified chronic kidney disease; Z68.45 Body mass index [BMI] 70 or greater, adult; N17.9 Acute kidney failure, unspecified; J96.21 Acute and chronic respiratory failure with hypoxia; I27.20 Pulmonary hypertension, unspecified; G47.33 Obstructive sleep apnea (adult) (pediatric); J98.4 Other disorders of lung; J44.9 Chronic obstructive pulmonary disease, unspecified; Z87.891 Personal history of nicotine dependence; Z99.81 Dependence on supplemental oxygen; E66.01 Morbid (severe) obesity due to excess calories; S20.01XA Contusion of right breast, initial encounter; S60.212A Contusion of left wrist, initial encounter; V49.9XXA Car occupant (driver) (passenger) injured in unspecified traffic accident, initial encounter; N18.30 Chronic kidney disease, stage 3 unspecified; E11.65 Type 2 diabetes mellitus with hyperglycemia; E11.22 Type 2 diabetes mellitus with diabetic chronic kidney disease; Z79.84 Long term (current) use of oral hypoglycemic drugs; Z91.199 Patient's noncompliance with other medical treatment and regimen due to unspecified reason; Z79.82 Long term (current) use of aspirin; Z90.49 Acquired absence of other specified parts of digestive tract
CPT/HCPCS: 36415; 36600; 71045; 71250; 80048; 80053; 81001; 82805; 82948; 83735; 83880; 84100; 84484; 85014; 85018; 85025; 85610; 93005; 94640; 94660; 94761; 94799; 96374; 96375; 97110; 97161; 97165; 99291; J1650; J1938; J2919; P9046